=== PATIENT | male | born 1945 | race Caucasian/White ===

== ENCOUNTER 2020-10-08 13:42 | Outpatient (CLI) | payer MEDICARE, SELFPAY ==
[2020-10-08 14:00] LABS: Basophils Percent Auto 0.7 % (0.2-1.2); Eosinophils Absolute Auto 0.1 K/mm3 (0-0.3); Eosinophils Percent Auto 0.9 % (0-4.4); Hematocrit 47.5 % (42.0-52.0); Hemoglobin 16.4 g/dL (14.0-18.0); Immature Granulocyte Absolute 0.01 K/mm3 (0.00-0.031); Immature Granulocyte Percent A 0.2 % (0-0.5); Lymphocytes Absolute Auto 1.06 K/mm3 (0.9-3.2); Mean Corpuscular HGB Conc 34.5 g/dl (32-36); Mean Corpuscular Hemoglobin 33.7 pg (26-34); Mean Corpuscular Volume 97.5 fl (80-100); Monocytes Absolute Auto 0.4 K/mm3 (0.1-0.6); Monocytes Percent Auto 7.3 % (2.6-8.5); Neutrophils Percent Auto 71.9 % (45.5-73.1); Platelet Count Result 159 k/mm3 (150-375); Red Blood Count 4.87 M/mm3 (4.6-6.20); Red Cell Distribution Width 12.7 % (11.5-14.5); White Blood Count 5.6 K/mm3 (4.5-10.0)
[2020-10-08 14:05] LABS: Blood Urea Nitrogen 22 mg/dL (8-26); Carbon Dioxide 28 mmol/L (22-30); Chloride 101 mmol/L (98-109); Estimated Glomerular Filt Rate > 60; Glucose 263 mg/dL (70-105); Sodium 138 mmol/L (138-146)
[2020-10-08 16:30] LABS: Alanine Aminotransferase 36 U/L (4-50); Albumin Level 3.9 g/dL (3.5-5.1); Alkaline Phosphatase 68 U/L (38-126); Anion Gap 5 mmol/L (8-16); Aspartate Amino Transferase 26 U/L (17-59); Bilirubin,Total 1.4 mg/dL (0.2-1.3); Blood Urea Nitrogen 23 mg/dL (9-20); Calcium 10.7 mg/dL (8.4-10.2); Carbon Dioxide 31 mmol/L (22-30); Chloride 101 mmol/L (98-107); Estimated Glomerular Filt Rate > 60; Glucose 262 mg/dL (75-110); Potassium 4.1 mmol/L (3.4-5.0); Sodium 137 mmol/L (137-145)
== END 2020-10-08 13:43 | disposition home or self-care (01) ==
LOC: ANHLAB 13:44
PROVIDERS: PCP Internal Medicine; Visit Provider Internal Medicine Hematology & Oncology
DX: D69.59 Other secondary thrombocytopenia (principal)
CPT/HCPCS: 36415; 80048; 80053; 85025

== ENCOUNTER 2020-12-12 14:30 | Outpatient (RCR) | payer MEDICARE, SELFPAY | END 2021-02-01 10:39 | disposition home or self-care (01) | LOC: ANHDMC 14:30 | PROVIDERS: PCP Internal Medicine; Referring Provider Internal Medicine; Visit Provider Internal Medicine | DX: E11.9 Type 2 diabetes mellitus without complications (principal); Z71.89 Other specified counseling | CPT/HCPCS: G0108; G0109 ==

== ENCOUNTER 2021-05-29 13:54 | Outpatient (CLI) | payer MEDICARE, SELFPAY ==
--- NOTE | ~2021-05-29 | US_ITS ---
EXAMINATION: US thyroid DATE: 05/29/2021 14:50 INDICATION: Hypercalcemia TECHNIQUE: Multiple ultrasound images of the thyroid were obtained. COMPARISON: None. FINDINGS: The right thyroid lobe measures 3.9 x 1.7 x 1.6 cm. The left thyroid lobe measures 4.2 x 1.9 x 1.5 c m. Wider than tall 7 mm solid hypoechoic nodule with smooth margins in the right thyroid (TI-RADS 4, moderately suspicious , FNA if >=1.5 cm, annual followup is >=1 cm). There is normal echotexture, ec hogenicity and vascular flow throughout the thyroid gland. IMPRESSION: 1. 7 mm TI RADS 4 right thyroid nodule which remains below size criteria for either biopsy or follow- up. Reviewed, dictated and finalized at location A. IMPRESSION: 1. 7 mm TI RADS 4 right thyroid nodule which remains below size criteria for ei ther biopsy or follow-up.
== END 2021-05-29 13:55 | disposition home or self-care (01) ==
LOC: ANHIMG 13:55
PROVIDERS: PCP Internal Medicine; Visit Provider Internal Medicine Nephrology
DX: E21.0 Primary hyperparathyroidism (principal); E78.00 Pure hypercholesterolemia, unspecified; E11.22 Type 2 diabetes mellitus with diabetic chronic kidney disease; I48.21 Permanent atrial fibrillation; I25.84 Coronary atherosclerosis due to calcified coronary lesion; I10 Essential (primary) hypertension
CPT/HCPCS: 76536

== ENCOUNTER 2021-06-03 08:44 | Outpatient (CLI) | payer MEDICARE, SELFPAY ==
--- NOTE | ~2021-06-03 | NM_ITS ---
EXAMINATION: NM parathyroid w imaging DATE: 06/03/2021 12:49 INDICATION: Hypercalcemia. TECHNIQUE: 20.4 mCi Tc99m sestamibi was administered intravenously. Anterior images of the neck were obtained immediately and at 2 hours. SPECT images of the neck were obtained. COMPARISON: Thyroid ultrasound 05/29/2021 FINDINGS: There is no focus of persistent activity in the area of the thyroid or mediastinum to sugge st parathyroid adenoma. IMPRESSION: 1. No evidence of a parathyroid adenoma. Reviewed, dictated and finalized at location A.
== END 2021-06-03 08:45 | disposition home or self-care (01) ==
PROVIDERS: PCP Internal Medicine; Visit Provider Internal Medicine Nephrology
DX: I48.21 Permanent atrial fibrillation (principal); I25.84 Coronary atherosclerosis due to calcified coronary lesion; I10 Essential (primary) hypertension; E11.22 Type 2 diabetes mellitus with diabetic chronic kidney disease; E78.00 Pure hypercholesterolemia, unspecified; E21.0 Primary hyperparathyroidism
CPT/HCPCS: 78070; A9500

== ENCOUNTER 2021-11-28 12:38 | Outpatient (CLI) | payer MEDICARE, SELFPAY ==
--- NOTE | ~2021-11-28 | CT_ITS ---
EXAMINATION: CT abdomen pelvis wo con DATE: 11/28/2021 13:01 INDICATION: Hematuria TECHNIQUE: Computed tomography (CT) of the abdomen and pelvis was performed without intravenous contr ast. Automated exposure control and iterative reconstruction technique were employed. The dose-lengt h product was 307.12 mGy-cm. COMPARISON: None FINDINGS: Minimal dependent and basilar atelectasis at the bilateral lower lobes. Heart size is normal. No parth cardial effusion. Postoperative change of prior median sternotomy and coronary artery bypass grafting . Three lead pacemaker seen with lead tips at the right atrial appendage, apex of the right ventricle and in a coronary vein overlying the lateral wall of the left ventricle having traversed the coronar y sinus. Liver, gallbladder, spleen, pancreas and bilateral adrenal glands are normal. Kidneys and ur eters are normal with no urolithiasis or hydroureteronephrosis. Bladder is normal. There are few scat tered colonic diverticula without adjacent inflammatory change to suggest diverticulitis. Small bowel and appendix are normal. No free intraperitoneal gas or fluid. No pathologically enlarged abdominal or pelvic lymphadenopathy. There is calcified atherosclerosis of the aorta and many of the other rafael martin. Bilateral fat-containing inguinal hernias. Mild lumbar dextrocurvature with moderate spondylosi s. Mild to moderate bilateral hip osteoarthritis. IMPRESSION: 1. No urolithiasis or other acute intra-abdominal/pelvic process. 2. Bilateral fat-containing inguinal hernias. Reviewed, dictated and finalized at location A.
== END 2021-11-28 12:39 | disposition home or self-care (01) ==
LOC: ANHIMG 12:39
PROVIDERS: PCP Internal Medicine
DX: R31.9 Hematuria, unspecified (principal); K40.20 Bilateral inguinal hernia, without obstruction or gangrene, not specified as recurrent
CPT/HCPCS: 74176

== ENCOUNTER → 2023-06-16 12:54 | Outpatient (CLI) | payer MEDICARE, SELFPAY ==
--- NOTE | ~2023-06-16 | CT_ITS ---
EXAMINATION: CT lumbar spine wo con DATE: 06/16/2023 13:16 INDICATION: Lumbar radiculopathy. Bilateral leg weakness. TECHNIQUE: Computed tomography (CT) of the lumbar spine was performed without intravenous contrast. A utomated exposure control and iterative reconstruction technique were employed. The dose-length produ ct was 894.76 mGy-cm. COMPARISON: Lumbar spine CT 06/24/2013 FINDINGS: There is 9 degrees dextrocurvature of lumbar spine. There is 5 mm anterolisthesis of L4 on L5. There is mild chronic anterior wedging of T12 vertebral body. There is mildly decreased disc heig ht at L2-L3, severely decreased disc height at L3-L4, and moderately decreased disc height at L4-L5 a nd L5-S1. The following disc levels are specifically discussed: L1-L2: The disc is bulging. There is moderate right and severe left facet joint osteoarthritis. There is mild bilateral neural foraminal stenosis. There is no central canal stenosis. L2-L3: The disc is bulging. There is moderate right and severe left facet joint osteoarthritis. There is moderate bilateral neural foraminal stenosis. There is mild central canal stenosis. L3-L4: The disc is bulging. There is severe bilateral facet joint osteoarthritis. There is moderate b ilateral neural foraminal stenosis. There is mild central canal stenosis. L4-L5: The disc is bulging. There is severe bilateral facet joint osteoarthritis. There is moderate b ilateral neural foraminal stenosis. There is mild central canal stenosis with posterior decompression . L5-S1: The disc is bulging. There is moderate right and mild left facet joint osteoarthritis. There i s moderate right and mild left neural foraminal stenosis. There is mild central canal stenosis. IMPRESSION: 1. Severe lumbar spondylosis, worsened from 06/24/2013. Reviewed, dictated and finalized at location E. CULTURAL SALES REPRESENTATIVE
== END ==
PROVIDERS: PCP Nurse Practitioner Family; Visit Provider Nurse Practitioner Family
DX: M54.16 Radiculopathy, lumbar region (principal); M43.06 Spondylolysis, lumbar region
CPT/HCPCS: 72131

== ENCOUNTER 2024-08-05 12:14 | Outpatient (CLI) | payer MEDICARE, SELFPAY ==
[2024-08-05 12:39] LABS: Basophils Percent Auto 0.6 % (0.2-1.2); Eosinophils Percent Auto 0.8 % (0-4.4); Hematocrit 31.5 % (42.0-52.0); Hemoglobin 9.4 g/dL (14.0-18.0); Immature Granulocyte Absolute 0.02 K/mm3 (0.00-0.031); Immature Granulocyte Percent A 0.4 % (0-0.5); Immature Reticulocyte Fraction 21.3 % (3.0-15.9); Lymphocytes Absolute Auto 0.85 K/mm3 (0.9-3.2); Lymphocytes Percent Auto 17.3 % (18.3-44.2); Mean Corpuscular HGB Conc 29.8 g/dl (32-36); Mean Platelet Volume 10.1 fl (7.4-10.4); Monocytes Absolute Auto 0.4 K/mm3 (0.1-0.6); Monocytes Percent Auto 8.4 % (2.6-8.5); Neutrophils Absolute Auto 3.6 K/mm3 (1.3-6.7); Neutrophils Percent Auto 72.5 % (45.5-73.1); Platelet Count Result 178 k/mm3 (150-375); Red Blood Count 3.62 M/mm3 (4.6-6.20); Red Cell Distribution Width 16.5 % (11.5-14.5); Reticulocyte Hemoglobin Conten 25.4 pg (28.2-36.6); Reticulocyte Percent 1.63 % (0.7-4.3); Reticulocytes Absolute 0.06 10^6/uL (0.02-0.10); White Blood Count 4.9 K/mm3 (4.5-10.0)
[2024-08-05 12:50] LABS: Hypochromasia 1+; Ovalocytes 1+; Platelet Estimate Adequate (Adequate); Poikilocytosis 1+; Schistocytes None Seen
[2024-08-05 13:11] LABS: Iron 18 ug/dL (49-181)
[2024-08-05 13:14] LABS: Alanine Aminotransferase 13 U/L (6-50); Albumin Level 2.8 g/dL (3.5-5.1); Alkaline Phosphatase 82 U/L (38-126); Anion Gap 0 mmol/L (4-12); Aspartate Amino Transferase 20 U/L (17-59); Bilirubin,Total 0.6 mg/dL (0.2-1.3); Blood Urea Nitrogen 22 mg/dL (9-20); Calcium 8.4 mg/dL (8.4-10.2); Carbon Dioxide 28 mmol/L (22-30); Chloride 112 mmol/L (98-107); Estimated Glomerular Filt Rate > 60; Glucose 178 mg/dL (65-110); Potassium 3.7 mmol/L (3.4-5.0); Sodium 140 mmol/L (137-145)
[2024-08-05 13:22] LABS: Percent Iron Saturation 6 % (20-50)
[2024-08-05 13:43] LABS: Prostate Specific Antigen < 0.1 ng/mL (< OR = 4.0)
[2024-08-05 14:20] LABS: Folic Acid 7.4 ng/mL (2.76->20); Vitamin B12 > 1000.0 pg/mL (239-931)
[2024-08-09 15:48] LABS: Methylmalonic Acid 109 nmol/L (85-423)
[2024-08-11 08:17] LABS: Soluble Transferrin Receptor 1.47 mg/L (0.76-1.76)
== END 2024-08-05 12:15 | disposition home or self-care (01) ==
LOC: ANHLAB 12:21
PROVIDERS: PCP Nurse Practitioner Family; Visit Provider Internal Medicine Hematology & Oncology
DX: D64.9 Anemia, unspecified (principal); Z85.46 Personal history of malignant neoplasm of prostate
CPT/HCPCS: 36415; 80053; 82607; 82728; 82746; 83540; 83550; 83921; 84153; 84238; 85025; 85046

== ENCOUNTER 2024-08-25 19:35 | Emergency (ER) | payer MEDICARE, SELFPAY ==
--- NOTE | ~2024-08-25 | CT_ITS ---
EXAMINATION: CT abdomen pelvis w con DATE: 08/25/2024 20:54 INDICATION: Left flank ecchymosis TECHNIQUE: Computed tomography (CT) of the abdomen and pelvis was performed with 100 cc Omnipaque 350 intravenous contrast. The dose-length product was 972.14 mGy-cm. COMPARISON: CT dated 11/28/2021. FINDINGS: There are acute fractures of the left 11th, 10th, ninth, eighth ribs. There is displacement of the 10th, ninth and eighth ribs. There is osteoarthritis of the hips. Mild diffuse subcutaneous e estelita. There is soft tissue swelling adjacent to the left rib fractures posteriorly. Bilateral pleural effusions/hemothorax. There is compressive atelectasis of the left lower lobe. Heart size upper norm al. There is atherosclerosis of the aorta without aneurysm. Fat-containing bilateral inguinal hernias . There are bilateral hydroceles. The liver, spleen, pancreas, adrenal glands and kidneys are unremarkable. Gallbladder is present. Non obstructive bowel gas pattern. There is mild thickening of the gastric antrum, suspicious for gastrit is. IMPRESSION: 1. Multiple acute left rib fractures with adjacent soft tissue swelling. Bilateral pleural effusion/h emothorax. 2: Compressive atelectasis of the left lower lobe. 3: Thickening of the gastric antrum, suspicious for gastritis. 4: Bilateral hydroceles. Reviewed, dictated and finalized at location A. ET DEVELOPMENT ANALYST IMPRESSION: 1. Multiple acute left rib fractures with adjacent soft tissue swelling. Bilate ral pleural effusion/hemothorax. 2: Compressive atelectasis of the left lower lobe. 3: Thickening of the gastric antrum, suspicious for gastritis. 4: Bilateral hydroceles.
--- NOTE | ~2024-08-25 | CT_ITS ---
EXAMINATION: CT cervical spine wo con DATE: 08/25/2024 20:54 INDICATION: Frequent falls. Neck pain. TECHNIQUE: Computed tomography (CT) of the cervical spine was performed without intravenous contrast. The dose-length product was 416 mGy-cm. Automated exposure control and iterative reconstruction technique were employed. COMPARISON: None FINDINGS: Mild levocurvature of the cervical spine. Odontoid process is normal. Craniovertebral junct ion within normal limits. No evidence for perched facet. Vertebral body heights are maintained. There is mild multilevel uncinate degenerative change. No acute fracture or traumatic malalignment. There is a left pleural effusion. No paraspinal soft tissue abnormalities. IMPRESSION: 1. No acute abnormality of the cervical spine. 2: Left pleural effusion with near complete opacification of the left apex. Reviewed, dictated and finalized at location A. DING OFFICIAL
--- NOTE | ~2024-08-25 | XR_ITS ---
XR chest 1V portable 08/25/2024 20:21 Indication: Weakness Procedure: AP portable chest Comparison: 11/02/2012 Findings: Status post median sternotomy for CABG. Cardiomegaly. Pacemaker leads are in expected posit ion. Retrocardiac opacification may represent atelectasis or pneumonia. No pleural effusion or pneumo thorax. Impression: 1: Retrocardiac opacification, atelectasis versus pneumonia. Reviewed, dictated and finalized at location A. EGE ADMISSIONS COUNSELOR Impression: 1: Retrocardiac opacification, atelectasis versus pneumonia.
--- NOTE | ~2024-08-25 | XR_ITS ---
XR pelvis 1-2V 08/25/2024 20:36 Indication: Pelvic pain after fall Procedure: AP pelvis Comparison: No prior studies for comparison. Findings: Moderate osteoarthritis of the hips. Pelvic rings are intact. Moderate colonic fecal loadin g. Surgical changes are present in the pelvis and left inguinal locations. Sacral foramen are symmetr ic. No acute fracture. There is moderate lumbar spondylosis with dextroscoliosis. Impression: 1: No acute fracture. Reviewed, dictated and finalized at location A. L INSPECTION SUPERVISOR Impression: 1: No acute fracture.
--- NOTE | ~2024-08-25 | CT_ITS ---
EXAMINATION: CT brain wo con DATE: 08/25/2024 20:54 INDICATION: Frequent falls. TECHNIQUE: Computed tomography (CT) of the head was performed without intravenous contrast. The dose- length product was 681.00 mGy-cm. Automated exposure control and iterative reconstruction technique w ere employed. COMPARISON: None FINDINGS: There are scattered moderate periventricular and subcortical white matter changes, most lik leila related to small vessel ischemic disease (microangiopathy). No ventriculomegaly or midline shift. There is intracranial atherosclerosis. Mild mucosal thickening of the ethmoid sinuses. Mastoids are pneumatized. No depressed skull fractures. No acute infarction, hemorrhage, mass or mass effect. IMPRESSION: 1. No acute intracranial abnormality. Reviewed, dictated and finalized at location A. ETIC SALES ASSISTANT
[2024-08-25 19:37] VITALS: BP 134/62; PULSE 83; RESP 15; TEMP 37; O2SAT 95
--- NOTE | 2024-08-25 19:45 | ECG_ITS ---
Test Date: 2024-08-25 19:51:54 Measurements Intervals [place] Rate: 87 P: 0 NC: 0 QRS: 195 QRSD: 168 T: 22 QT: 434 QTc: 524 Interpretive Statements ELECTRONIC VENTRICULAR PACEMAKER No previous ECG available for comparison Electronically Signed On 08-26-2024 14:34:29 STORY WRITER by Viral Hernandez M.D.
[2024-08-25 19:53] LABS: Basophils Percent Auto 0.7 % (0.2-1.2); Eosinophils Percent Auto 0.2 % (0-4.4); Hematocrit 34.5 % (42.0-52.0); Hemoglobin 10.4 g/dL (14.0-18.0); Immature Granulocyte Absolute 0.01 K/mm3 (0.00-0.031); Immature Granulocyte Percent A 0.2 % (0-0.5); Lymphocytes Absolute Auto 0.39 K/mm3 (0.9-3.2); Lymphocytes Percent Auto 9.6 % (18.3-44.2); Mean Corpuscular HGB Conc 30.1 g/dl (32-36); Mean Corpuscular Hemoglobin 25.6 pg (26-34); Mean Platelet Volume 9.4 fl (7.4-10.4); Monocytes Absolute Auto 0.2 K/mm3 (0.1-0.6); Monocytes Percent Auto 5.4 % (2.6-8.5); Neutrophils Absolute Auto 3.4 K/mm3 (1.3-6.7); Neutrophils Percent Auto 83.9 % (45.5-73.1); Platelet Count Result 257 k/mm3 (150-375); Red Blood Count 4.06 M/mm3 (4.6-6.20); Red Cell Distribution Width 15.8 % (11.5-14.5); White Blood Count 4.1 K/mm3 (4.5-10.0)
[2024-08-25 19:59] VITALS: PULSE 86
[2024-08-25 20:04] VITALS: BP 145/72; PULSE 86; RESP 15; O2SAT 95
[2024-08-25 20:04] LABS: Alanine Aminotransferase 17 U/L (6-50); Albumin Level 2.9 g/dL (3.5-5.1); Alkaline Phosphatase 92 U/L (38-126); Anion Gap 4 mmol/L (4-12); Aspartate Amino Transferase 23 U/L (17-59); Bilirubin,Total 1.3 mg/dL (0.2-1.3); Blood Urea Nitrogen 18 mg/dL (9-20); Calcium 8.2 mg/dL (8.4-10.2); Carbon Dioxide 27 mmol/L (22-30); Chloride 106 mmol/L (98-107); Estimated CRCL calculation 73 ml/min; Estimated Glomerular Filt Rate > 60; Glucose 100 mg/dL (65-110); Sodium 137 mmol/L (137-145)
--- NOTE | 2024-08-25 20:50 | ED.GENADULT ---
HPI - General Adult General Chief complaint: Weakness Stated complaint: fell/back pain Time Seen by Provider: 08/25/24 19:58 History of Present Illness HPI narrative: This is an 79-year-old male presenting ED for chief complaint generalized weakness. Patient says he has been getting progressively more weak over last month. He has had frequent falls over the last week. He denies any head trauma or loss of consciousness. He did fall and land on his left hip and sustained a large bruise to his left flank. He denies fevers chills chest pain difficulty breathing abdominal pain nausea vomiting diarrhea or urinary symptoms. Patient lives alone. Family members frequently check on and today they found him laying on the ground too weak to get up. Related Data Allergies Allergy/AdvReac Type Severity Reaction Status Date / Time No Known Allergies Allergy Verified 08/25/24 19:45 Exam Narrative: APPEARANCE: No apparent distress. Head: atraumatic. EYES: EOMI, NOSE: Atraumatic NECK: Trachea midline RESPIRATORY: No increased rate of breathing, CTAB CARDIOVASCULAR: RRR, no peripheral edema ABDOMINAL: Non-distended soft nontender MUSCULOSKELETAl: No obvious deformities NEURO: Alert. Moving 4/4 extremities SKIN:: Ecchymosis over the left flank with no tenderness/crepitus PSYCHIATRIC: Normal affect Course Vital Signs Vital signs: Vital Signs Temperature 98.6 F 08/25/24 19:37 Pulse Rate 83 08/25/24 19:37 Respiratory Rate 15 08/25/24 19:37 Blood Pressure 134/62 08/25/24 19:37 Pulse Oximetry 95 08/25/24 19:37 Oxygen Delivery Room Air 08/25/24 19:37 Temperature 98.6 F 08/25/24 19:37 Pulse Rate 86 08/25/24 20:04 Respiratory Rate 15 08/25/24 20:04 Blood Pressure 145/72 H 08/25/24 20:04 Pulse Oximetry 95 08/25/24 20:04 Oxygen Delivery Room Air 08/25/24 19:37 Medical Decision Making [facility] Narrative Medical decision making narrative: -Course: 79-year-old male presenting generalized weakness and frequent falls over the last month. Trauma and metabolic workup obtained. Trauma workup significant for 4 consecutive rib fractures on the left side with a small hemothorax. Patient has no respiratory complaints this time. He has also found have a urinary tract infection which we will treat with ceftriaxone. Patient be transferred to [facility] ED to ED for trauma evaluation. Accepted by Dr. Brothers. Vital Signs Vital Signs: Vital Signs Temperature 98.6 F 08/25/24 19:37 Pulse Rate 83 08/25/24 19:37 Respiratory Rate 15 08/25/24 19:37 Blood Pressure 134/62 08/25/24 19:37 Pulse Oximetry 95 08/25/24 19:37 Oxygen Delivery Room Air 08/25/24 19:37 Temperature 98.6 F 08/25/24 19:37 Pulse Rate 86 08/25/24 20:04 Respiratory Rate 15 08/25/24 20:04 Blood Pressure 145/72 H 08/25/24 20:04 Pulse Oximetry 95 08/25/24 20:04 Oxygen Delivery Room Air 08/25/24 19:37 Lab Data 08/25/24 19:47 08/25/24 19:47 Labs: Lab Results 08/25/24 08/25/24 08/25/24 Range/Units 19:47 21:33 22:02 WBC 4.1 L (4.5-10.0) K/mm3 RBC 4.06 L (4.6-6.20) M/mm3 Hgb 10.4 L (14.0-18.0) g/dL Hct 34.5 L (42.0-52.0) % MCV 85.0 (80-100) fl MCH 25.6 L (26-34) pg MCHC 30.1 L (32-36) g/dl RDW 15.8 H (11.5-14.5) % Plt Count 257 (150-375) k/mm3 MPV 9.4 (7.4-10.4) fl Immature Gran % (Auto) 0.2 (0-0.5) % Neut % (Auto) 83.9 H (45.5-73.1) % Lymph % (Auto) 9.6 L (18.3-44.2) % [place] % (Auto) 5.4 (2.6-8.5) % Eos % (Auto) 0.2 (0-4.4) % Baso % (Auto) 0.7 (0.2-1.2) % Lymph # (Auto) 0.39 L (0.9-3.2) K/mm3 [place] # (Auto) 0.2 (0.1-0.6) K/mm3 Eos # (Auto) 0.0 (0-0.3) K/mm3 Baso # (Auto) 0.0 (0.0-0.1) K/mm3 Abs Immat Gran (auto) 0.01 (0.00-0.031) K/mm3 Absolute Neuts (auto) 3.4 (1.3-6.7) K/mm3 Absolute Nucleated RBC 0.000 (0.0-0.012) K/mm3 Nucleated RBC % 0.0 (0.0-0.2) % Sodium 137 (137-145) mmol/L Potassium 4.0 (3.4-5.0) mmol/L Chloride 106 (98-107) mmol/L Carbon Dioxide 27 (22-30) mmol/L Anion Gap 4 (4-12) mmol/L BUN 18 (9-20) mg/dL Creatinine 0.77 (0.7-1.3) mg/dL Estim Creat Clear Calc 73 ml/min Estimated GFR > 60 (59 - ) Glucose 100 (65-110) mg/dL Calcium 8.2 L (8.4-10.2) mg/dL Total Bilirubin 1.3 (0.2-1.3) mg/dL AST 23 (17-59) U/L ALT 17 (6-50) U/L Alkaline Phosphatase 92 (38-126) U/L Total Protein 6.0 L (6.3-8.2) g/dL Albumin 2.9 L (3.5-5.1) g/dL Urine Color Yellow (Yellow) Urine Appearance Clear (Clear) Urine pH 5.0 (5.0-9.0) Ur Specific [place] > 1.045 H (1.001-1.035) Urine Protein Negative (Negative) mg/dL Urine Glucose (UA) 3+ H (Negative) mg/dL Urine Ketones 1+ H (Negative) mg/dL Ur Blood (Man) Negative (Negative) Urine Nitrate Positive H (Negative) Urine Bilirubin Negative (Negative) Urine Urobilinogen 1.0 (<2.0) mg/dL Leukocyte Esterase Rfl Trace H (Negative) MYKE/UL Urine RBC 0-2 (0-2) /hpf Urine WBC 21-50 H (0-3) /hpf Ur Squamous Epith Cells None seen (Few) /hpf Urine Bacteria 4+ H /hpf Urine Casts 0-2 Influenza A (RT-PCR) Negative (Negative) Influenza B (RT-PCR) Negative (Negative) RSV (RT-PCR) Negative (Negative) SARS-CoV-2 RNA (RT-PCR) Negative (Negative) Critical Care Time Critical Care Time Critical Care Time: Yes Total Critical Care Time: 35 Discharge Plan Discharge Clinical Impression: Generalized weakness, Multiple fractures of ribs, Hemothorax, Acute UTI Patient Disposition: Acute Care Hospital Condition: Stable Patient Language: Fijian Follow-up/Referrals: Chiki,RUBIO Alvarez-C [Primary Care Provider] -
[2024-08-25] MEDS: SODIUM CHLORIDE 0.9% IV 1,000 ML 999 ML IV CONT (21:02)
[2024-08-25 22:00] VITALS: BP 136/80; PULSE 84; RESP 20; O2SAT 95
[2024-08-25 22:12] LABS: Add Urine Microscopic? YES; Appearance Urine Clear (Clear); Bacteria Urine 4+ /hpf; Bilirubin Urine Negative (Negative); Blood Urine Negative (Negative); Color Urine Yellow (Yellow); Glucose Urine UA 3+ mg/dL (Negative); Ketones Urine 1+ mg/dL (Negative); Leukocyte Esterase Ur Trace LEU/UL (Negative); Nitrate Urine Positive (Negative); Non Pathogenic Casts 0-2; Protein Urine Negative (Negative); RBC Urine 0-2 /hpf (0-2); Specific Grav Ur > 1.045 (1.001-1.035); Squamous Epithelial Cell Urine None Seen /hpf (Few); WBC Urine 21-50 /hpf (0-3)
[2024-08-25 22:18] LABS: Influenza A QL RT-PCR Negative (Negative); Influenza B QL RT-PCR Negative (Negative); RSV RNA, RT-PCR Negative (Negative); SARS-CoV-2 RNA PCR Negative (Negative)
[2024-08-25 23:41] VITALS: BP 121/90; PULSE 88; RESP 17; O2SAT 95
--- NOTE | 2024-08-26 00:25 | PC.NURSE ---
Per EDP VORB, pt to receive 0.5mg dilaudid prior to leaving with EMS.
[2024-08-26] MEDS: HYDROmorphone HCL INJ (*CRX) 1 MG/ML SYR 0.5 MG IV PUSH (00:35)
== END 2024-08-26 00:36 | disposition short-term general hospital (02) ==
PROVIDERS: Emergency Provider Emergency Medicine; PCP Nurse Practitioner Family
DX: S22.42XA Multiple fractures of ribs, left side, initial encounter for closed fracture (principal); S27.1XXA Traumatic hemothorax, initial encounter; R53.1 Weakness; N39.0 Urinary tract infection, site not specified; Z20.822 Contact with and (suspected) exposure to COVID-19; R29.6 Repeated falls; N43.3 Hydrocele, unspecified; R91.8 Other nonspecific abnormal finding of lung field; R93.5 Abnormal findings on diagnostic imaging of other abdominal regions, including retroperitoneum; W19.XXXA Unspecified fall, initial encounter
CPT/HCPCS: 36415; 70450; 71045; 72125; 72170; 74177; 80053; 81001; 85025; 87040; 87086; 87186; 87637; 93005; 96361; 96365; 96375; 99285; J0696; J1171; J7030; Q9967

== ENCOUNTER 2024-10-31 16:08 | Emergency (ER) | payer MEDICARE, SELFPAY ==
--- NOTE | ~2024-10-31 | XR_ITS ---
XR chest 2V Ordering provider: Mandie Frederick APRN History: 79 years Male with . concern for fluid retention . Comparison: August 25, 2024 FINDINGS: MEDIASTINUM: The cardiac silhouette is not enlarged. Left bipolar pacemaker. Postoperative changes in the mediastinum. Congestive hossein. LUNGS: No pneumothorax. Opacification the lung bases suggestive of atelectasis versus pneumonia with left pleural effusion. OTHER: No free air under the diaphragm. Healing fractures in the right fifth and sixth rib. IMPRESSION: Bibasilar atelectasis versus pneumonia. Left pleural effusion. Reviewed, dictated and finalized at location A.
--- NOTE | ~2024-10-31 | US_ITS ---
EXAMINATION: US venous doppler [facility] DATE: 10/31/2024 20:41 INDICATION: edema . TECHNIQUE: Grayscale ultrasound images without and with compression and Doppler ultrasound images of the bilateral upper extremity veins were obtained. COMPARISON: None. FINDINGS: The visualized portions of the bilateral internal jugular vein, subclavian vein, axillary vein, brach ial veins, basilic vein, cephalic vein, radial vein, and ulnar vein are patent. IMPRESSION: No upper extremity deep venous thrombosis. Reviewed, dictated and finalized at location K.
--- NOTE | ~2024-10-31 | US_ITS ---
EXAMINATION: US venous doppler [facility] DATE: 10/31/2024 20:41 INDICATION: edema . TECHNIQUE: Grayscale images without and with compression and Doppler images of the bilateral lower ex tremity veins were obtained. COMPARISON: None FINDINGS: The right common femoral vein, profunda (deep) femoral vein, femoral vein, popliteal vein, peroneal v ein, posterior tibial veins, gastrocnemius vein, and greater saphenous vein are patent. The left posterior tibial and peroneal veins were not visualized. The left common femoral vein, profu nda (deep) femoral vein, femoral vein, popliteal vein, gastrocnemius vein, and greater saphenous vei n are patent. IMPRESSION: The left peroneal and posterior tibial veins were not visualized. Otherwise patent bilateral lower ex tremity veins. Reviewed, dictated and finalized at location K. IMPRESSION: The left peroneal and posterior tibial veins were not visualized. Otherwise pat ent bilateral lower extremity veins.
[2024-10-31 16:14] VITALS: BP 146/80; PULSE 96; RESP 15; TEMP 36.4; O2SAT 97
--- NOTE | 2024-10-31 16:25 | ECG_ITS ---
Test Date: 2024-10-31 17:10:04 Measurements Intervals [place] Rate: 67 P: 80 [place]: 195 QRS: 185 QRSD: 162 T: 3 QT: 421 QTc: 445 Interpretive Statements ELECTRONIC VENTRICULAR PACEMAKER ABNORMAL RHYTHM ECG Compared to ECG 08/25/2024 19:51:54 No significant changes Electronically Signed On 11-01-2024 15:57:20 CDT by Viral Hernandez M.D.
--- NOTE | 2024-10-31 16:26 | ED.LOWEXIN ---
HPI - Extremity Injury (Lower) General Chief Complaint: Extremity Injury, Lower <Mandie Frederick APRN - Last Filed: 10/31/24 16:27> Stated Complaint: lower extremity swelling <Mandie Frederick APRN - Last Filed: 10/31/24 16:27> Time Seen by Provider: 10/31/24 16:20 <Mandie Frederick APRN - Last Filed: 10/31/24 16:27> Focused HPI: Patient is an 79-year-old male who presents to the ER with generalized fluid retention. He was seen by his primary care provider earlier today who had concerns about, not only his lower extremity swelling, but his swollen hand and abdomen. Patient denies shortness of the breath or chest pain, but endorses dyspnea with exertion. He has a history of a pacemaker and high blood pressure. Patient denies any recent fevers, significant pain, urinary symptoms. GENERAL: Well-appearing, well-nourished, and in no acute distress. HEAD: Normocephalic, atraumatic. CHEST: Clear to auscultation. ?No respiratory distress. HEART: Regular rate and rhythm.? NEURO: ?Alert and oriented x3. Patient screened in triage and initial orders placed.? ?Additional care and disposition to be based upon?diagnostic testing and treatment. <Mandie Frederick APRN - Last Filed: 10/31/24 16:27> History of Present Illness HPI Narrative: Breathe HPI. Patient poor historian. Has been at [facility] and then transferred to a different facility. Seems have chronic deconditioning. Review shows history of edema to the upper extremities. Patient now presents with lower extremity edema. Reports he is nonambulatory as he is too weak. Denies history DVT or PE. He is on apixaban. <Darwin Workman MD - Last Filed: 10/31/24 22:01> Related Data Home Medications: Home Medications ?Medication ?Instructions ?Recorded ?Confirmed ?Last Taken ?Type acetaminophen 500 mg tablet 1,000 mg PO Q8H 09/05/24 09/05/24 Unknown History apixaban 5 mg tablet 5 mg PO BID 09/05/24 09/05/24 Unknown History aspirin 81 mg chewable tablet 81 mg PO DAILY 09/05/24 09/05/24 Unknown History atorvastatin 40 mg tablet (Lipitor) 40 mg PO HS 09/05/24 09/05/24 Unknown History cholecalciferol (vitamin D3) 25 2,000 unit PO DAILY 09/05/24 09/05/24 Unknown History mcg (1,000 unit) tablet cyanocobalamin (vitamin B-12) 1,000 mcg PO DAILY 09/05/24 09/05/24 Unknown History 1,000 mcg tablet ferrous sulfate 325 mg (65 mg 325 mg PO DAILY 09/05/24 09/05/24 Unknown History iron) tablet gabapentin 300 mg capsule 300 mg PO TID 09/05/24 09/05/24 Unknown History lidocaine 5 % topical patch 2 patch topical Q24H 09/05/24 09/05/24 Unknown History oxycodone 5 mg tablet 5 mg PO Q4H PRN pain 09/05/24 09/05/24 Unknown History pantoprazole 40 mg tablet,delayed 40 mg PO QAM 09/05/24 09/05/24 Unknown History release polyethylene glycol 3350 17 gram 17 g PO DAILY 09/05/24 09/05/24 Unknown History oral powder packet sennosides 8.6 mg tablet 17.2 mg PO DAILY 09/05/24 09/05/24 Unknown History <Mandie Frederick APRN - Last Filed: 10/31/24 16:27> Allergies/Adverse Reactions: Allergies Allergy/AdvReac Type Severity Reaction Status Date / Time No Known Allergies Allergy Verified 10/31/24 16:15 <Mandie Frederick APRN - Last Filed: 10/31/24 16:27> Review of Systems Review of Systems: All systems reviewed & are unremarkable except as noted in HPI and below <Darwin Workman MD - Last Filed: 10/31/24 22:01> Constitutional: Constitutional: Reports no additional constitutional complaints <Darwin Workman MD - Last Filed: 10/31/24 22:01> Cardiovascular: Cardiovascular: Reports no additional cardiovascular complaints <Darwin Workman MD - Last Filed: 10/31/24 22:01> Respiratory: Respiratory: Reports no additional respiratory complaints <Darwin Workman MD - Last Filed: 10/31/24 22:01> Gastrointestinal: Gastrointestinal: Reports no additional gastrointestinal complaints <Darwin Workman MD - Last Filed: 10/31/24 22:01> [facility] Past Medical History Medical History: Medical History (Updated 10/31/24 @ 22:00 by Darwin Workman MD) CAD (coronary artery disease) Prostate cancer sp prostatectomy Pacemaker Hypocalcemia HTN (hypertension) Afib Age related osteoporosis Hemothorax with pneumothorax, traumatic Urinary retention Recurrent falls Cachexia Protein calorie malnutrition Malaise and fatigue <Mandie Frederick APRN - Last Filed: 10/31/24 16:27> Surgical History Surgical History: Surgical History (Updated 09/06/24 @ 14:30 by Elena Orellana MD) Hx of CABG Previous back surgery H/O prostatectomy <Mandie Frederick APRN - Last Filed: 10/31/24 16:27> Social History Social History: Social History Smoking packs per day: 1 Smoking cigarettes per day: 20.0 Years smoked: 30 Smoking pack-years: 30.00 Smoking status: Former smoker Tobacco type: cigarettes Alcohol intake: former Substance use: never Do You Feel Safe in your Home?: Yes Lack of Transportation: No Lack of Food: Never True Current Housing: I Have Housing Concerned About Future Housing: No Difficulty Paying Gas/Electric Bills: No Difficulty Paying for Meds: No Currently Unemployed: No Education: High School Diploma/GED Difficulty w/ Childcare or Family Care: No Spiritual care concerns: No <Mandie Frederick APRN - Last Filed: 10/31/24 16:27> Exam Narrative: GENERAL: Chronically ill-appearing, well-nourished, and in no acute distress. HEAD: Normocephalic, atraumatic. ENT: Mucous membranes moist. NECK: Supple. CHEST: Clear to auscultation. No respiratory distress. HEART: Regular rate and rhythm. Normal peripheral pulses. ABDOMEN: Soft, nontender, nondistended. EXTREMITIES: Normal range of motion. 2+ edema in all extremities. SKIN: Warm, dry, no rash. NEURO: Alert and oriented x3. PSYCH: Normal mood and affect. <Darwin Workman MD - Last Filed: 10/31/24 22:01> Course Course Emergency Course: Patient given 20 of Lasix. Hemoglobin chronically low. Labs otherwise unremarkable with slight elevation in BNP. No DVT in the arms or legs. Recommend leg wraps and Lasix and follow-up with PCP. Edema likely related to his immobility and is chronic in nature. <Darwin Workman MD - Last Filed: 10/31/24 22:01> Vital Signs Vital signs: Vital Signs Temperature 97.6 F 10/31/24 16:14 Pulse Rate 96 10/31/24 16:14 Respiratory Rate 15 10/31/24 16:14 Blood Pressure 146/80 H 10/31/24 16:14 Pulse Oximetry 97 10/31/24 16:14 Temperature 97.6 F 10/31/24 16:14 Pulse Rate 88 10/31/24 20:01 Respiratory Rate 17 10/31/24 20:01 Blood Pressure 141/79 H 10/31/24 20:01 Pulse Oximetry 96 10/31/24 20:01 <Mandie Frederick, PHOTOENGRA[employer]ING [employer]CHER - Last Filed: 10/31/24 16:27> Vital Signs Temperature 97.6 F 10/31/24 16:14 Pulse Rate 96 10/31/24 16:14 Respiratory Rate 15 10/31/24 16:14 Blood Pressure 146/80 H 10/31/24 16:14 Pulse Oximetry 97 10/31/24 16:14 Temperature 97.6 F 10/31/24 16:14 Pulse Rate 88 10/31/24 20:01 Respiratory Rate 17 10/31/24 20:01 Blood Pressure 141/79 H 10/31/24 20:01 Pulse Oximetry 96 10/31/24 20:01 <Darwin Workman MD - Last Filed: 10/31/24 22:01> MDM - Extremity Injury (Lower) Lab Data Result diagrams: 10/31/24 17:28 10/31/24 17:28 <Mandie Frederick, PHOTOENGRAVING ETCHER - Last Filed: 10/31/24 16:27> Labs: Lab Results 10/31/24 10/31/24 Range/Units 17:28 19:39 WBC 4.4 L (4.5-10.0) K/mm3 RBC 3.38 L (4.6-6.20) M/mm3 Hgb 8.8 L (14.0-18.0) g/dL Hct 29.9 L (42.0-52.0) % MCV 88.5 (80-100) fl MCH 26.0 (26-34) pg MCHC 29.4 L (32-36) g/dl RDW 19.7 H (11.5-14.5) % Plt Count 232 (150-375) k/mm3 MPV 10.0 (7.4-10.4) fl Immature Gran % (Auto) 0.7 H (0-0.5) % Neut % (Auto) 69.1 (45.5-73.1) % Lymph % (Auto) 20.7 (18.3-44.2) % [place] % (Auto) 7.4 (2.6-8.5) % Eos % (Auto) 1.4 (0-4.4) % Baso % (Auto) 0.7 (0.2-1.2) % Lymph # (Auto) 0.90 (0.9-3.2) K/mm3 [place] # (Auto) 0.3 (0.1-0.6) K/mm3 Eos # (Auto) 0.1 (0-0.3) K/mm3 Baso # (Auto) 0.0 (0.0-0.1) K/mm3 Abs Immat Gran (auto) 0.03 (0.00-0.031) K/mm3 Absolute Neuts (auto) 3.0 (1.3-6.7) K/mm3 Absolute Nucleated RBC 0.000 (0.0-0.012) K/mm3 Band Neutrophils % 0 (0-6) % Nucleated RBC % 0.0 (0.0-0.2) % Platelet Estimate Adequate (Adequate) % Immature Plt Fraction 2.4 (0.9-11.2) % Hypochromasia 1+ Anisocytosis 2+ Schistocytes Rare PT 16.6 H (11.1-14.7) Seconds INR 1.3 APTT 36.6 (22.3-36.8) Seconds Sodium 135 L (137-145) mmol/L Potassium 4.4 (3.4-5.0) mmol/L Chloride 106 (98-107) mmol/L Carbon Dioxide 28 (22-30) mmol/L Anion Gap 1 L (4-12) mmol/L BUN 18 D (9-20) mg/dL Creatinine 0.67 L (0.7-1.3) mg/dL Estim Creat Clear Calc 83 ml/min Estimated GFR > 60 (59 - ) Glucose 99 (65-110) mg/dL Calcium 7.7 L (8.4-10.2) mg/dL Total Bilirubin 0.5 (0.2-1.3) mg/dL AST 29 (17-59) U/L ALT 14 (6-50) U/L Alkaline Phosphatase 91 (38-126) U/L Troponin I < 0.012 (0.000-0.034) ng/mL NT-Pro-B Natriuret Pep 2190 H (19.9-100) pg/mL Total Protein 5.0 L (6.3-8.2) g/dL Albumin 2.2 L (3.5-5.1) g/dL <Mandie Frederick, PHOTOENGRAVING ETCHER - Last Filed: 10/31/24 16:27> Lab Results 10/31/24 10/31/24 Range/Units 17:28 19:39 WBC 4.4 L (4.5-10.0) K/mm3 RBC 3.38 L (4.6-6.20) M/mm3 Hgb 8.8 L (14.0-18.0) g/dL Hct 29.9 L (42.0-52.0) % MCV 88.5 (80-100) fl MCH 26.0 (26-34) pg MCHC 29.4 L (32-36) g/dl RDW 19.7 H (11.5-14.5) % Plt Count 232 (150-375) k/mm3 MPV 10.0 (7.4-10.4) fl Immature Gran % (Auto) 0.7 H (0-0.5) % Neut % (Auto) 69.1 (45.5-73.1) % Lymph % (Auto) 20.7 (18.3-44.2) % [place] % (Auto) 7.4 (2.6-8.5) % Eos % (Auto) 1.4 (0-4.4) % Baso % (Auto) 0.7 (0.2-1.2) % Lymph # (Auto) 0.90 (0.9-3.2) K/mm3 [place] # (Auto) 0.3 (0.1-0.6) K/mm3 Eos # (Auto) 0.1 (0-0.3) K/mm3 Baso # (Auto) 0.0 (0.0-0.1) K/mm3 Abs Immat Gran (auto) 0.03 (0.00-0.031) K/mm3 Absolute Neuts (auto) 3.0 (1.3-6.7) K/mm3 Absolute Nucleated RBC 0.000 (0.0-0.012) K/mm3 Band Neutrophils % 0 (0-6) % Nucleated RBC % 0.0 (0.0-0.2) % Platelet Estimate Adequate (Adequate) % Immature Plt Fraction 2.4 (0.9-11.2) % Hypochromasia 1+ Anisocytosis 2+ Schistocytes Rare PT 16.6 H (11.1-14.7) Seconds INR 1.3 APTT 36.6 (22.3-36.8) Seconds Sodium 135 L (137-145) mmol/L Potassium 4.4 (3.4-5.0) mmol/L Chloride 106 (98-107) mmol/L Carbon Dioxide 28 (22-30) mmol/L Anion Gap 1 L (4-12) mmol/L BUN 18 D (9-20) mg/dL Creatinine 0.67 L (0.7-1.3) mg/dL Estim Creat Clear Calc 83 ml/min Estimated GFR > 60 (59 - ) Glucose 99 (65-110) mg/dL Calcium 7.7 L (8.4-10.2) mg/dL Total Bilirubin 0.5 (0.2-1.3) mg/dL AST 29 (17-59) U/L ALT 14 (6-50) U/L Alkaline Phosphatase 91 (38-126) U/L Troponin I < 0.012 (0.000-0.034) ng/mL NT-Pro-B Natriuret Pep 2190 H (19.9-100) pg/mL Total Protein 5.0 L (6.3-8.2) g/dL Albumin 2.2 L (3.5-5.1) g/dL <Darwin Workman MD - Last Filed: 10/31/24 22:01> Imaging Data Radiologist's impression: ITS Impressions Chest X-Ray 10/31/24 16:57 IMPRESSION: Bibasilar atelectasis versus pneumonia. Left pleural effusion. Venous Doppler Study 10/31/24 21:00 IMPRESSION: No upper extremity deep venous thrombosis. Venous Doppler Study 10/31/24 21:02 IMPRESSION: The left peroneal and posterior tibial veins were not visualized. Otherwise patent bilateral lower extremity veins. <Darwin Workman MD - Last Filed: 10/31/24 22:01> Discharge Plan Discharge Clinical Impression: Edema, peripheral <Mandie Frederick APRN - Last Filed: 10/31/24 16:27> Patient Disposition: Home, Self-Care <Mandie Frederick APRN - Last Filed: 10/31/24 16:27> Condition: Stable <Mandie Frederick APRN - Last Filed: 10/31/24 16:27> Instructions: Edema (ED) <Mandie Frederick APRN - Last Filed: 10/31/24 16:27> Additional Instructions: You have diffuse edema from immobility and for nurse minute. Increase her protein in her diet. He also be started on Lasix to get some extra fluid off. You need to follow-up with your primary care doctor to ensure this does not affect your electrolytes. <Mandie Frederick APRN - Last Filed: 10/31/24 16:27> Patient Language: Sudanese <Mandie Frederick APRN - Last Filed: 10/31/24 16:27> Prescriptions: New furosemide [Lasix] 20 mg tablet 20 mg PO DAILY Qty: 7 0RF No Action acetaminophen 500 mg tablet 1,000 mg PO Q8H aspirin 81 mg tablet,chewable 81 mg PO DAILY gabapentin 300 mg capsule 300 mg PO TID lidocaine 5 % adhesive patch,medicated 2 patch topical Q24H Rx Instructions: leave on most painful area for up to 12 hrs oxycodone 5 mg tablet 5 mg PO Q4H PRN (Reason: pain) polyethylene glycol 3350 17 gram powder in packet 17 g PO DAILY sennosides 8.6 mg tablet 17.2 mg PO DAILY atorvastatin [Lipitor] 40 mg tablet 40 mg PO HS cholecalciferol (vitamin D3) 25 mcg (1,000 unit) tablet 2,000 unit PO DAILY cyanocobalamin (vitamin B-12) 1,000 mcg tablet 1,000 mcg PO DAILY apixaban 5 mg tablet 5 mg PO BID ferrous sulfate 325 mg (65 mg iron) tablet 325 mg PO DAILY pantoprazole 40 mg tablet,delayed release (DR/EC) 40 mg PO QAM oxycodone 5 mg Tablet 5 mg PO Q6H PRN (Reason: pain rated 1-10) Qty: 28 0RF <Mandie Frederick APRN - Last Filed: 10/31/24 16:27> Follow-up/Referrals: Renetta,MD Gege [Primary Care Provider] - 1 Week <Mandie Frederick APRN - Last Filed: 10/31/24 16:27>
[2024-10-31 17:42] LABS: Basophils Percent Auto 0.7 % (0.2-1.2); Eosinophils Absolute Auto 0.1 K/mm3 (0-0.3); Eosinophils Percent Auto 1.4 % (0-4.4); Hematocrit 29.9 % (42.0-52.0); Hemoglobin 8.8 g/dL (14.0-18.0); Immature Granulocyte Absolute 0.03 K/mm3 (0.00-0.031); Immature Granulocyte Percent A 0.7 % (0-0.5); Immature Platelet Fraction Pct 2.4 % (0.9-11.2); Lymphocytes Percent Auto 20.7 % (18.3-44.2); Mean Corpuscular HGB Conc 29.4 g/dl (32-36); Mean Corpuscular Volume 88.5 fl (80-100); Monocytes Absolute Auto 0.3 K/mm3 (0.1-0.6); Monocytes Percent Auto 7.4 % (2.6-8.5); Neutrophils Percent Auto 69.1 % (45.5-73.1); Platelet Count Result 232 k/mm3 (150-375); Red Blood Count 3.38 M/mm3 (4.6-6.20); Red Cell Distribution Width 19.7 % (11.5-14.5); White Blood Count 4.4 K/mm3 (4.5-10.0)
[2024-10-31 18:04] LABS: Platelet Estimate Adequate (Adequate)
[2024-10-31 18:05] LABS: Band Neutrophils Percent 0 % (0-6); Hypochromasia 1+; Schistocytes Rare
[2024-10-31 18:06] LABS: Anisocytosis 2+
[2024-10-31 18:12] LABS: Alanine Aminotransferase 14 U/L (6-50); Albumin Level 2.2 g/dL (3.5-5.1); Alkaline Phosphatase 91 U/L (38-126); Anion Gap 1 mmol/L (4-12); Aspartate Amino Transferase 29 U/L (17-59); Bilirubin,Total 0.5 mg/dL (0.2-1.3); Blood Urea Nitrogen 18 mg/dL (9-20); Calcium 7.7 mg/dL (8.4-10.2); Carbon Dioxide 28 mmol/L (22-30); Chloride 106 mmol/L (98-107); Estimated CRCL calculation 83 ml/min; Estimated Glomerular Filt Rate > 60; Glucose 99 mg/dL (65-110); Potassium 4.4 mmol/L (3.4-5.0); Sodium 135 mmol/L (137-145)
[2024-10-31 18:21] LABS: NT Pro B Type Natriuretic Pept 2190 pg/mL (19.9-100); Troponin I < 0.012 ng/mL (0.000-0.034)
--- OUTSIDE RECORDS SUMMARY | 2024-10-31 18:23 | XMS_ITS | Continuity of Care Document ---
Author Organization [facility] Address [address] [place] [address] Phone Care Team Providers Care Clay Temperer Name Role Phone Judie Hoang Unavailable Unavailable Procedures Procedure Date Office/outpatient Visit, Est Dilated Retinal Exam W Interpretation Nh Eye Exam & Treatment Dilated Retinal Exam W Interpretation Nh Office/outpatient Visit, Est Dilated Retinal Exam W Interpretation Nh Eye Exam & Treatment Advance Directives Directive Yes / No Effective Date File Name No Information Encounters Encounter Description Practice Location Reason(s) For Visit Diagnoses Date Provider Providers Copied on Encounter Office/[place]pat [place], [facility] [place] [address] [place] [address] [address], [place], [place], [id number], [place] tel:[phone] [facility] No Information Oct-2 3-201 0 Natalya Dimas. [address] , [address], [place], [place], [facility], [place]. tel:[phone] [facility], [address], [place], [place], [id number], [place] tel:[phone] [facility] No Information Oct-3 1-200 [address] , [address], [place], [address], [place]. tel:[phone] Office/[place]pat ient [place], [facility] [place], [address] [place] [address] [address], [place], [place], [id number], [place] tel:[phone] [facility] No Information Oct-2 8-200 8 Natalya Judie. [address] , [address], [place], [address], . tel:[phone] [facility], [address], [place], [place], [id number], [place] tel:[phone] [facility] No Information Oct-2 7-[address] , [address], [place], [address], [place]. tel:[phone] Family History Family Member Type Diagnosis Age At Onset No Information Payers Payer name Insurance type Covered green party ID Authoriza tion(s) [place] [id number] [place] [id number] Social History Type Description Quantity Date Captured Comments Sex Male Smoking Status No Information Chief Complaint And Reason For Visit No Information Reason For Referral Reason For Referral No Information History Of Present Illness Encounter Date Complaint History Of Prese nt Illness No Information Functional Status Date Functional Assessmen t No Information Instructions Date Instruction Additional Infor mation No Information Assessments Type Assessment Date No Information Patient Care Teams Name Effective Dates (start - stop) Status Members No Information
--- OUTSIDE RECORDS SUMMARY | 2024-10-31 18:24 | XMS_ITS | Data Portability ---
Author Organization [facility] [email or web address], Main Office Address [address] [place] [address] Care Team Providers Care Car Sweeper Name Role Phone YULIA JACKSON Primary Care Provider YULIA JACKSON Referring Provider TONY NDIAYE Performance Architect [facility] IVAN STRANGE Door To Door Lead Generation Assessment Encounter Date Assessment Date Assessment LastModified by Organization Details LastModified Time 09/28/2023 09/28/2023 10/20/2022: A1C 7.4 TSH: WNL HDL 35 Gluc 158, BUN 22 Urine micro alb <6.0 MCV 99.5 02/25/2023: A1C 7.9 Gluc 138, BUN 29 MCV 97.1 07/16/2023: Gluc 150 Not available 09/28/2023 15:41:50 01/25/2024 01/25/2024 10/20/2022: A1C 7.4 TSH: WNL HDL 35 Gluc 158, BUN 22 Urine micro alb <6.0 MCV 99.5 02/25/2023: A1C 7.9 Gluc 138, BUN 29 MCV 97.1 07/16/2023: Gluc 150 01/22/2024: A1C 6.7 Urine micro alb 64.3 B12 >1000 WBC 3.8L, H/H 10.4/34.8 LDL 115 Gluc 125, BUN 29 Not available 01/25/2024 14:53:04 05/11/2024 05/11/2024 The patient gave verbal consent using TelePhonic services and the consent is documented in the medical record prior to using the service. The patient has been informed of what a TeleMedicine visit is. Patient is located at home. Provider is located at office. Names and roles of persons in addition to the patient and provider participating in telemedicine services include none. The patient had a 15 minute TeleMedicine consultation via phone call to discuss the followin10/20/2022: A1C 7.4 TSH: WNL HDL 35 Gluc 158, BUN 22 Urine micro alb <6.0 MCV 99.5 02/25/2023: A1C 7.9 Gluc 138, BUN 29 MCV 97.1 07/16/2023: Gluc 150 01/22/2024: A1C 6.7 Urine micro alb 64.3 B12 >1000 WBC 3.8L, H/H 10.4/34.8 LDL 115 Gluc 125, BUN 29 Not available 05/11/2024 17:22:39 07/20/2024 07/20/2024 10/20/2022: A1C 7.4 TSH: WNL HDL 35 Gluc 158, BUN 22 Urine micro alb <6.0 MCV 99.5 02/25/2023: A1C 7.9 Gluc 138, BUN 29 MCV 97.1 07/16/2023: Gluc 150 01/22/2024: A1C 6.7 Urine micro alb 64.3 B12 >1000 WBC 3.8L, H/H 10.4/34.8 LDL 115 Gluc 125, BUN 29 06/01/2024: A1C 6.7 Urine micro alb 40.0 WBC 3.8, H/H 9.1/31.2 Gluc 104 Not available 07/20/2024 15:36:34 08/17/2024 08/17/2024 10/20/2022: A1C 7.4 TSH: WNL HDL 35 Gluc 158, BUN 22 Urine micro alb <6.0 MCV 99.5 02/25/2023: A1C 7.9 Gluc 138, BUN 29 MCV 97.1 07/16/2023: Gluc 150 01/22/2024: A1C 6.7 Urine micro alb 64.3 B12 >1000 WBC 3.8L, H/H 10.4/34.8 LDL 115 Gluc 125, BUN 29 06/01/2024: A1C 6.7 Urine micro alb 40.0 WBC 3.8, H/H 9.1/31.2 Gluc 104 45 minutes spent with the patient, his case was discussed in detail with Dr Guzman, he too reviewed his chart today 08/17/2024, he is anemic and needs to be on iron which was prescribed and chart was updated [email or web address] Not available 08/17/2024 17:23:24 Plan of Treatment Reminders Order Date Submit Date Provider Last Modified By Organization Details Last Modified Time Details Appointments None recorded . Lab vitamin D, 25-hydro xy, total, serum 2024 025 [facility] (Lab), [address] [place], [address], 5 17:45:27 CMP, serum or plasma 2024 025 [facility] (Lab), [address] [place], [address], 5 17:45:27 CBC w/ auto diff 2024 025 [facility] (Lab), [address] [place], [address], 5 17:45:27 lipid panel, serum 2024 025 [facility] (Lab), [address] [place], [address], 5 17:45:27 TSH, serum or plasma 2024 025 [facility] (Lab), [address] [place], [address], 5 17:45:27 glycohem oglobin, total, blood 2024 025 [facility] (Lab), [address] [place], [address], 5 17:45:27 microalb umin, urine 2024 025 [facility] (Lab), [address] [place], [address], 5 17:45:28 vitamin B12 + folate, serum or blood 2024 025 [facility] (Lab), [address] [place], [address], 5 17:45:27 vitamin D, 25-hydro xy, total, serum [address] (Lab), [address] [place], [address], 4 17:21:14 CMP, serum or plasma [address] (Lab), [address] [place], [address], 4 17:21:15 CBC w/ auto diff [address] (Lab), [address] [place], [address], 4 17:21:15 lipid panel, serum [address] (Lab), [address] [place], [address], 4 17:21:15 TSH, serum or plasma [address] (Lab), [address] [place], [address], 4 17:21:15 glycohem oglobin, total, blood [address] (Lab), [address] [place], [address], 4 17:21:15 microalb umin, urine [address] (Lab), [address] [place], [address], 4 17:21:15 vitamin B12 + folate, serum or blood [address] (Lab), [address] [place], [address], 4 17:21:14 vitamin D, 25-hydro xy, total, serum [address] (Lab), [address] [place], [address], 4 17:24:47 CMP, serum or plasma 2023 024 [facility] (Lab), [address] [place], [address], 4 13:39:05 CBC w/ auto diff 2023 [facility] (Lab), [address] [place], [address], 4 13:14:56 lipid panel, serum 2023 024 [facility] (Lab), [address] [place], [address], 4 13:39:09 TSH, serum or plasma 2023 024 [facility] (Lab), [address] [place], [address], 4 14:38:11 glycohem oglobin, total, blood 2023 [facility] (Lab), [address] [place], [address], 4 21:04:12 microalb umin, urine 2023 024 [facility] (Lab), [address] [place], [address], 4 14:44:42 vitamin B12 + folate, serum or blood [address] (Lab), [address] [place], [address], 4 17:24:47 vitamin D, 25-hydro xy, total, serum [address] (Lab), [address] [place], [address], 4 11:07:05 CMP, serum or plasma [address] (Lab), [address] [place], [address], 4 11:07:06 CBC w/ auto diff [address] (Lab), [address] [place], [address], 4 11:07:06 lipid panel, serum [address] (Lab), [address] [place], [address], 4 11:07:06 TSH, serum or plasma [address] (Lab), [address] [place], [address], 4 11:07:06 glycohem oglobin, total, blood [address] (Lab), [address] [place], [address], 4 11:07:05 microalb umin, urine [address] (Lab), [address] [place], [address], 4 11:07:05 vitamin B12 + folate, serum or blood [address] (Lab), [address] [place], [address], 4 11:07:05 vitamin D, 25-hydro xy, total, serum [address] (Lab), [address] [place], [address], 4 14:05:52 CMP, serum or plasma 2023 024 [facility] (Lab), [address] [place], [address], 4 20:08:33 CBC w/ auto diff 2023 024 [facility] (Lab), [address] [place], [address], 4 19:17:43 lipid panel, serum 2023 024 [facility] (Lab), [address] [place], [address], 4 20:08:38 TSH, serum or plasma 2023 024 [facility] (Lab), [address] [place], [address], 4 20:28:35 glycohem oglobin, total, blood 2023 024 [facility] (Lab), [address] [place], [address], 4 20:06:51 microalb umin, urine 2023 024 [facility] (Lab), [address] [place], [address], 4 16:33:50 vitamin B12 + folate, serum or blood [address] (Lab), [address] [place], [address], 4 14:05:52 Referral nephrolo gist referral 2024 025 [email or web address] [place], [address], [address], [place], [address], 5 08:04:38 pain manageme nt referral 2024 025 [email or web address] Molly Stevenson MD, [address], [place], [address], 5 08:04:39 cardiolo gist referral 2024 025 Rangel Slaughter MD, [address] [facility], [address], [place], [address], 5 08:04:[address] referral 2024 025 [email or web address] Kaveh MCKNIGHTM, [address], [place], [address], 5 08:05:05 nephrolo gist referral 2023 024 [place], [address] [address], [address], [place], [address], 4 11:40:46 pain manageme nt referral 2023 024 [email or web address] Molly Stevenson MD, [address], [place], [address], 11:40:47 hematolo gist referral 2023 024 [email or web address] Dylon Guzman MD, [address], [place], [address], 11:41:50 cardiolo gist referral 2023 024 [email or web address] Rangel Slaughter MD, [address] [facility], [address], [place], [address], 11:40:[address] referral 2023 024 Kaveh Godfrey DPM, [address], [place], [address], 4 11:41:50 nephrolo gist referral 2023 024 [email or web address] [place], [address] [address], [address], [place], [address], 4 12:39:58 pain manageme nt referral 2023 024 Molly Stevenson MD, [address], [place], [address], 4 12:40:25 hematolo gist referral 2023 024 Dylon Guzman MD, [address], [place], [address], 17:26:31 cardiolo gist referral 2023 024 [email or web address] Rangel Slaughter MD, [address] [facility], [facility] [address], [place], [address], 12:38:[address] referral 2023 024 [email or web address] Kaveh Godfrey DPM, [address], [place], [address], 18:14:28 nephrolo gist referral 2023 024 [place], [address] [address], [address], [place], [address], 12:40:03 pain manageme nt referral 2023 024 [email or web address] [facility], [address], [address], [place], [address], 12:40:49 hematolo gist referral 2023 024 Dylon Guzman MD, [address], [place], [address], 12:21:31 cardiolo gist referral 2023 024 [email or web address] Rangel Slaughter MD, [address] [facility], [facility] [address], [place], [address], 4 12:21:[address] referral 2023 024 [email or web address] Kaveh Godfrey DPM, [address], [place], [address], 4 12:21:32 nephrolo gist referral 2023 024 [place], [address] [address], [address], [place], [address], 4 14:06:14 pain manageme nt referral 2023 024 [email or web address] [facility], [address], [address], [place], [address], 4 08:52:29 hematolo gist referral 2023 024 [email or web address] Dylon Guzman MD, [address], [place], [address], 4 14:06:12 cardiolo gist referral 2023 024 [email or web address] Rangel Slaughter MD, [address] [facility], [address], [place], [address], 4 08:52:[address] referral 2023 024 [email or web address] Kaveh Godfrey DPM, [address], [place], [address], 4 14:06:13 Procedures None recorded . Surgeries None recorded . Imaging None recorded . Medication Orders Kerendia 20 mg tablet 2024 025 [facility], [address], [place], [id number], 5 17:12:34 ferrous sulfate 325 mg (65 mg iron) tablet 2024 025 [facility]72114, [address], [place], [id number], 5 17:12:33 Kerendia 20 mg tablet 2023 024 [email or web address], [address], [id number], 4 15:59:20 Kerendia 20 mg tablet 2023 024 [facility] #44914, [address] [place] [address], [id number], 4 17:21:31 atorvast atin 80 mg tablet 2023 024 [email or web address] [facility] #91730, [address] [place] [address], [id number], 4 15:24:04 Kerendia 20 mg tablet 2023 [facility], [address] [facility] [address] [place] [address], [id number], 4 15:09:56 Kerendia 20 mg tablet 2023 024 [facility] #97319, [address] [place] [address], [id number], 15:47:56 Patient TargetsNo targets recorded. Patient Instructions Encounter Date Encounter Id Patient Instructions Last Modified By Organization Details Last Modified Time 09/28/2023 [id number] diabetic eye exam* [email or web address] Not avail able 03/28/2024 14:05:36 05/11/2024 [id number] Due to the COVID -19 (Novel Coronavirus) pandemic, it is within this context (and with the understanding that this method of patient encounter is in the patient s best interest as well as the health and safety of other patients and the public) that telehealth is being provided for this patient encounter rather than a ozgq-uh-goda visit. This patient encounter is appropriate at this time. This patient has been advised of the potential risks and limitations of this mode of treatment (including, but not limited to, the absence of in-person examination) and has agreed to be treated in a remote fashion despite these risks. Any and all of the patient s/patient s family s questions on this issue have been answered, and I have made no promises or guarantees to the patient. The patient has also been advised to contact this office for worsening conditions or problems, and seek emergency medical treatment and/or call 911 if the patient deems either necessary. HPI and/or vitals, if listed, were provided by the patient. Not available 05/11/2024 16:40:58 07/20/2024 [id number] dementia rating scale-2* [email or web address] Not available 07/20/2024 17:02:01 alcohol misuse* [email or web address] Not available 07/20/2024 17:02:15 depression screening* [email or web address] Not available 07/20/2024 17:02:30 Timed Up and Go test (TUG)* [email or web address] Not available 07/20/2024 17:02:47 multi-dimensiona l health assessment questionnaire* [email or web address] Not available 07/20/2024 17:01:52 Personalized a lt Plan and Screening Recommendations Advance Directives - Do you have one? Yes Advance Directives - Do we have your advance directive on file in your health record? Yes Primary Prevention/Interven tion (prevents or decreases the chance of common diseases from occurring) Smoking Risk: Non Smoker Alcohol Misuse Screening: Negative Weight: Appropriate Physical activity: Need more exercise/physical activity decrease sitting time to no more than 5hr/day Nutrition: Good Average Refer to attached handout Heart-Healthy Diet: After Your Visit Fall Risk (screened today): High Refer to attached handout Preventing Falls: After your Visit Vaccines Pneumococcal: Ordered Recommended today Recommended today, but you have declined No further needed Influenza: Ordered Recommended today Chronic Disease Risks Stroke: Low Risk Intermediate Risk I have no recommendations Act michael diagnosis, Continue current treatment plan Heart Attack: Low risk Intermediate Risk Clogging of the Arteries: Low risk Intermediate Risk Diabetes: High Risk Active diagnosis, Continue current treatment plan Secondary Prevention/Interven tion (detects treatable diseases before they may cause symptoms, disability, or ) Prostate Cancer Screening: Colon Cancer Screening: _ Eye Disease Screening: Ordered Recommended today Dementia Risk: Low I have no recommendations Depression Screening: Negative [email or web address] Not available 07/20/2024 17:04:03 Reason for Referral Referring Physician: Yulia Jackson, Internal Medicine, Encounter Date: 09/28/2023 Melter Caster Referral for Type 2 diabetes mellitus without complication Referring Physician: Yulia Jackson, Internal Medicine, Encounter Date: 09/28/2023 Performance Architect Referral for Es sential hypertension Referring Physician: Yulia Jackson Internal Medicine, Encounter Date: 09/28/2023 Door To Door Lead Generation Referral for Hy percalcemia Referring Physician: Courtney Farley Medicine, Encounter Date: 09/28/2023 Pain Management Referral for Low back pain Referring Physician: Yulia Jackson Internal Medicine, Encounter Date: 09/28/2023 Referring Physician: Yulia Jackson Internal Medicine, Encounter Date: 01/25/2024 Melter Caster Referral for Type 2 diabetes mellitus without complication Referring Physician: Courtney Farley, Encounter Date: 01/25/2024 Performance Architect Referral for Es sential hypertension Referring Physician: Courtney Farley, Encounter Date: 01/25/2024 Door To Door Lead Generation Referral for Hy percalcemia Referring Physician: Courtney Farley, Encounter Date: 01/25/2024 Pain Management Referral for Low back pain Referring Physician: Courtney Farley, Encounter Date: 01/25/2024 Referring Physician: Courtney Farley, Encounter Date: 05/11/2024 Melter Caster Referral for Type 2 diabetes mellitus without complication Referring Physician: Courtney Farley, Encounter Date: 05/11/2024 Performance Architect Referral for Es sential hypertension Referring Physician: Courtney Farley, Encounter Date: 05/11/2024 Door To Door Lead Generation Referral for Hy percalcemia Referring Physician: Courtney Farley, Encounter Date: 05/11/2024 Pain Management Referral for Low back pain Referring Physician: Yulia Jackson Internal Medicine, Encounter Date: 05/11/2024 Melter Caster Referral for Type 2 diabetes mellitus without complication Referring Physician: Yulia Jackson Internal Medicine, Encounter Date: 07/20/2024 Performance Architect Referral for Es sential hypertension Referring Physician: Yulia Jackson Internal Medicine, Encounter Date: 07/20/2024 Door To Door Lead Generation Referral for Hy percalcemia Referring Physician: Yulia Jackson Internal Medicine, Encounter Date: 07/20/2024 Pain Management Referral for Low back pain Referring Physician: Yulia Jackson Internal Medicine, Encounter Date: 07/20/2024 Referring Physician: Yulia Jackson Internal Medicine, Encounter Date: 07/20/2024 Melter Caster Referral for Type 2 diabetes mellitus without complication Referring Physician: Yulia Jackson Internal Medicine, Encounter Date: 08/17/2024 Performance Architect Referral for Es sential hypertension Referring Physician: Yulia Jackson Internal Medicine, Encounter Date: 08/17/2024 Door To Door Lead Generation Referral for Hy percalcemia Referring Physician: Yulia Jackson Internal Medicine, Encounter Date: 08/17/2024 Pain Management Referral for Low back pain Referring Physician: Courtney Farley Medicine, Encounter Date: 08/17/2024 Results Created Date Observation Date Name Description Value Unit Range Abnormal Flag Note LastModifiedBy Organization Detail LastModifiedTime 09/28/19 24 09/28/2023 CBC/C OMPLE TE BLD COUNT W/DIF F white blood cells 4.6 x10'3 /uL 4.2-10 .8 Not Available [facility] (Lab) [address] [place], [address], 09/28/2023 19:17:43 09/28/19 24 09/28/2023 CBC/C OMPLE TE BLD COUNT W/DIF F red blood cells 3.82 x10'6 /uL 4.10-5 .80 low Not Available [facility] (Lab) [address] [place], [address], 09/28/2023 19:17:43 09/28/19 24 09/28/2023 CBC/C OMPLE TE BLD COUNT W/DIF F hemoglobin 11.4 g/dL 13.2-1 7.0 low Not Available [facility] (Lab) [address] [place], [address], 09/28/2023 19:17:43 09/28/19 24 09/28/2023 CBC/C OMPLE TE BLD COUNT W/DIF F hematocrit 36.6 % 39.3-5 0.0 low Not Available [facility] (Lab) [address] [place], [address], 09/28/2023 19:17:43 09/28/19 24 09/28/2023 CBC/C OMPLE TE BLD COUNT W/DIF F mean red cell volume 95.8 fL 80.0-9 7.0 Not Available [facility] (Lab) [address] [place], [address], 09/28/2023 19:17:43 09/28/19 24 09/28/2023 CBC/C OMPLE TE BLD COUNT W/DIF F mean red cell hemoglobin 29.8 pg 27.0-3 3.0 Not Available [facility] (Lab) [address] [place], [address], 09/28/2023 19:17:43 09/28/19 24 09/28/2023 CBC/C OMPLE TE BLD COUNT W/DIF F mean RBC HGB concentratio n 31.1 g/dL 31.0-3 6.0 Not Available [facility] (Lab) [address] [place], [address], 09/28/2023 19:17:43 09/28/19 24 09/28/2023 CBC/C OMPLE TE BLD COUNT W/DIF F red cell distribution width 13.2 % 11.8-1 5.5 Not Available [facility] (Lab) [address] [place], [address], 09/28/2023 19:17:43 09/28/19 24 09/28/2023 CBC/C OMPLE TE BLD COUNT W/DIF F platelets 202 x10'3 /uL 150-40 0 Not Available [facility] (Lab) [address] [place], [address], 09/28/2023 19:17:43 09/28/19 24 09/28/2023 CBC/C OMPLE TE BLD COUNT W/DIF F mean platelet volume 10.7 fL 9.0-12 .4 Not Available [facility] (Lab) [address] [place], [address], 09/28/2023 19:17:43 09/28/19 24 09/28/2023 CBC/C OMPLE TE BLD COUNT W/DIF F neutrophils 69.9 % 39.0-7 2.0 Not Available [facility] (Lab) [address] [place], [address], 09/28/2023 19:17:43 09/28/19 24 09/28/2023 CBC/C OMPLE TE BLD COUNT W/DIF F lymphocytes 18.9 % 16.0-4 7.0 Not Available [facility] (Lab) [address] [place], [address], 09/28/2023 19:17:43 09/28/19 24 09/28/2023 CBC/C OMPLE TE BLD COUNT W/DIF F monocytes 8.1 % 5.0-12 .0 Not Available [facility] (Lab) [address] [place], [address], 09/28/2023 19:17:43 09/28/19 24 09/28/2023 CBC/C OMPLE TE BLD COUNT W/DIF F eosinophils 2.0 % 1.0-7. 0 Not Available [facility] (Lab) [address] [place], [address], 09/28/2023 19:17:43 09/28/19 24 09/28/2023 CBC/C OMPLE TE BLD COUNT W/DIF F basophils 0.9 % 0.0-2. 0 Not Available [facility] (Lab) [address] [place], [address], 09/28/2023 19:17:43 09/28/19 24 09/28/2023 CBC/C OMPLE TE BLD COUNT W/DIF F immature granulocytes 0.2 % 0.00-0 .50 Not Available [facility] (Lab) [address] [place], [address], 09/28/2023 19:17:43 09/28/19 24 09/28/2023 CBC/C OMPLE TE BLD COUNT W/DIF F neutrophils, absolute count 3.18 x10'3 /uL 1.5-8. 0 Not Available [facility] (Lab) [address] [place], [address], 09/28/2023 19:17:43 09/28/19 24 09/28/2023 CBC/C OMPLE TE BLD COUNT W/DIF F lymphocytes, absolute count 0.86 x10'3 /uL 1.07-3 .43 low Not Available [facility] (Lab) [address] [place], [address], 09/28/2023 19:17:43 09/28/19 24 09/28/2023 CBC/C OMPLE TE BLD COUNT W/DIF F monocytes, absolute count 0.37 x10'3 /uL 0.29-0 .99 Not Available [facility] (Lab) [address] [place], [address], 09/28/2023 19:17:43 09/28/19 24 09/28/2023 CBC/C OMPLE TE BLD COUNT W/DIF F eosinophils, absolute count 0.09 x10'3 /uL 0.02-0 .53 Not Available [facility] (Lab) [address] [place], [address], 09/28/2023 19:17:43 09/28/19 24 09/28/2023 CBC/C OMPLE TE BLD COUNT W/DIF F basophils, absolute count 0.04 x10'3 /uL 0.01-0 .08 Not Available [facility] (Lab) [address] [place], [address], 09/28/2023 19:17:43 09/28/19 24 09/28/2023 CBC/C OMPLE TE BLD COUNT W/DIF F immature granulocytes ,absolute 0.01 x10'3 /uL 0.00-0 .05 Not Available [facility] (Lab) [address] [place], [address], 09/28/2023 19:17:43 09/28/19 24 09/28/2023 CBC/C OMPLE TE BLD COUNT W/DIF F nucleated red blood cells 0.0 % -0 Not Available [facility] (Lab) [address] [place], [address], 09/28/2023 19:17:43 09/28/19 24 09/28/2023 CBC/C OMPLE TE BLD COUNT W/DIF F NRBC# 0.00 x10'3 /uL Not Available [facility] (Lab) [address] [place], [address], 09/28/2023 19:17:43 09/28/19 24 09/28/2023 HEMOG LOBIN A1C HA1C 6.5 % 4.0-6. 0 high Diabe gary Rekhae cameron Crite cristofer: <5.7% Consi stent with absen ce of diabe gary 5.7-6 .4% Consi stent with incre ased risk for diabe gary (pred iabet es) >OR=6 .5% Consi stent with diabe gary REFER ENCE: Diabe gary Care 2016, 39( ppl.1 ):s13 -s22 Not Available [facility] (Lab) [address] [place], [address], 09/28/2023 20:06:51 09/28/19 24 09/28/2023 COMPR EHENS MICHAEL METAB OLIC PANEL sodium 143 mmol/ L 137-14 5 Not Available [facility] (Lab) [address] [place], [address], 09/28/2023 20:08:33 09/28/19 24 09/28/2023 COMPR EHENS MICHAEL METAB OLIC PANEL potassium 4.4 mmol/ L 3.5-5. 1 Not Available [facility] (Lab) [address] [place], [address], 09/28/2023 20:08:33 09/28/19 24 09/28/2023 COMPR EHENS MICHAEL METAB OLIC PANEL chloride 108 mmol/ L 98-107 high Not Available [facility] (Lab) [address] [place], [address], 09/28/2023 20:08:33 09/28/19 24 09/28/2023 COMPR EHENS MICHAEL METAB OLIC PANEL carbon dioxide 28 mmol/ L 22-30 Not Available [facility] (Lab) [address] [place], [address], 09/28/2023 20:08:33 09/28/19 24 09/28/2023 COMPR EHENS MICHAEL METAB OLIC PANEL anion gap 11.4 mmol/ L 14-22 low Not Available [facility] (Lab) [address] [place], [address], 09/28/2023 20:08:33 09/28/19 24 09/28/2023 COMPR EHENS MICHAEL METAB OLIC PANEL glucose 106 mg/dL 70-99 high Not Available [facility] (Lab) [address] [place], [address], 09/28/2023 20:08:33 09/28/19 24 09/28/2023 COMPR EHENS MICHAEL METAB OLIC PANEL BUN 24 mg/dL 8-19 high Not Available [facility] (Lab) [address] [place], [address], 09/28/2023 20:08:33 09/28/19 24 09/28/2023 COMPR EHENS MICHAEL METAB OLIC PANEL creatinine 0.90 mg/dL 0.66-1 .25 Not Available [facility] (Lab) [address] [place], [address], 09/28/2023 20:08:33 09/28/19 24 09/28/2023 COMPR EHENS MICHAEL METAB OLIC PANEL GFR >60 Refer ence Range : [place] ge GFR Healt hy Adult : >60 mL/mi n/1.7 3 m2 Chron ic Kidne y Disea se: 15-60 mL/mi n/1.7 3 m2 Kidne y Failu re: <15/m L/min /1.73 m2 www.n [email or web address]. nih.g ov The MDRD study equat ion has not been valid ated in child kurtis <18 years of age; pregn ant women ; the elder ly >85 years of age; or in some racia l or ethni c subgr oups, such as Hispa nics. Outsi de the valid ated dru eters , estim ated GFR is less accur ate, requi ring clini paxton judgm ent on a case- by-ca se basis . Clini paxton inter preta tion for other races and ages must be made by the clini phani. The MDRD study equat ion has not been valid ated for the evalu ation of serum creat inine relat ed to nutri maxwell l statu s or medic ation usage . For perso ns <18 years of age, a pedia tric GFR calcu lator is avail able on the [facility] websi te: https :[email or web address] [email or web address] rg/pr ofess ional s/kdo qi/gf r_cal culat or Not Available [facility] (Lab) [address] [place], [address], 09/28/2023 20:08:33 09/28/19 24 09/28/2023 COMPR EHENS MICHAEL METAB OLIC PANEL alkaline phosphatase 84 U/L 38-126 Not Available [facility] (Lab) [address] [place], [address], 09/28/2023 20:08:33 09/28/19 24 09/28/2023 COMPR EHENS MICHAEL METAB OLIC PANEL alanine aminotransfe rase 13 U/L 0-50 Not Available [facility] (Lab) [address] [place], [address], 09/28/2023 20:08:33 09/28/19 24 09/28/2023 COMPR EHENS MICHAEL METAB OLIC PANEL aspartate aminotransfe rase 19 U/L 15-46 Not Available [facility] (Lab) [address] [place], [address], 09/28/2023 20:08:33 09/28/19 24 09/28/2023 COMPR EHENS MICHAEL METAB OLIC PANEL bilirubin, total 1.10 mg/dL 0.20-1 .30 Not Available [facility] (Lab) [address] [place], [address], 09/28/2023 20:08:33 09/28/19 24 09/28/2023 COMPR EHENS MICHAEL METAB OLIC PANEL calcium 9.7 mg/dL 8.4-10 .2 Not Available [facility] (Lab) [address] [place], [address], 09/28/2023 20:08:33 09/28/19 24 09/28/2023 COMPR EHENS MICHAEL METAB OLIC PANEL total protein 6.5 g/dL 6.3-8. 2 Not Available [facility] (Lab) [address] [place], [address], 09/28/2023 20:08:33 09/28/19 24 09/28/2023 COMPR EHENS MICHAEL METAB OLIC PANEL albumin 3.9 g/dL 3.0-4. 4 Not Available [facility] (Lab) [address] [place], [address], 09/28/2023 20:08:33 09/28/19 24 09/28/2023 COMPR EHENS MICHAEL METAB OLIC PANEL globulin 2.6 g/dL 2.6-4. 2 Not Available [facility] (Lab) [address] [place], [address], 09/28/2023 20:08:33 09/28/19 24 09/28/2023 COMPR EHENS MICHAEL METAB OLIC PANEL A/G ratio 1.5 ratio 1.0-2. 0 Not Available [facility] (Lab) [address] [place], [address], 09/28/2023 20:08:33 09/28/19 24 09/28/2023 LIPID PANEL cholesterol 111 mg/dL 140-19 9 low NIH KRISTEN NSUS RECOM MENDA TION FOR GUSTAVO STERO L: ADULT CHILD LOW RISK: <200 <170 BORDE RLINE : <200- 239 ----- HIGH RISK: >240 >200 Not Available [facility] (Lab) [address] [place], [address], 09/28/2023 20:08:38 09/28/19 24 09/28/2023 LIPID PANEL triglyceride s 143 mg/dL 0-150 NIH KRISTEN NSUS REPOR T RECOM MENDA TION FOR TRIGL YCERI SHANI: ADULT CHILD LOW RISK: <150 ----- BODER LINE: 150-1 99 ----- HIGH RISK: >200 ----- Not Available [facility] (Lab) [address] [place], [address], 09/28/2023 20:08:38 09/28/19 24 09/28/2023 LIPID PANEL HDL cholesterol 26 mg/dL 40- low Not Available [facility] (Lab) [address] [place], [address], 09/28/2023 20:08:38 09/28/19 24 09/28/2023 LIPID PANEL LDL cholesterol, calculated 56 mg/dL 0-130 NIH KRISTEN NSUS REPOR T RECOM MENDA TIONS FOR LDL: ADULT CHILD LOW RISK <130 <110 (OPTI MAL LDL) <100 ----- BORDE RLINE : 130-1 59 ----- HIGH RISK: >160 >130 A TRIGL YCERI DE RESUL T >400 INVAL IDATE S THE CALCU LATIO N FOR LDL FRACT IONAT ION - THE LDL RESUL T WILL NOT BE REPOR MIKE. Not Available [facility] (Lab) [address] [place], [address], 09/28/2023 20:08:38 09/28/19 24 09/28/2023 VITAM IN D 25-HY DROXY [id number] 63.7 NG/mL 30-100 Vitam in D Statu s: Defic ient: <20 ng/mL Insuf ficie nt: 20-29 ng/mL Suffi cient : 30-10 0 ng/mL Not Available [facility] (Lab) [address] [place], [address], 09/28/2023 20:27:09 09/28/19 24 09/28/2023 TSH W/REF BLANCA FT4 TSH with reflex free T4 1.920 uIU/m L 0.465- 4.680 Not Available [facility] (Lab) [address] [place], [address], 09/28/2023 20:28:35 01/22/20 24 01/22/2024 CBC/C OMPLE TE BLD COUNT W/DIF F white blood cells 3.8 x10'3 /uL 4.2-10 .8 low Not Available [facility] (Lab) [address] [place], [address], 01/22/2024 13:47:16 01/22/20 24 01/22/2024 CBC/C OMPLE TE BLD COUNT W/DIF F red blood cells 3.95 x10'6 /uL 4.10-5 .80 low Not Available [facility] (Lab) [address] [place], [address], 01/22/2024 13:47:16 01/22/20 24 01/22/2024 CBC/C OMPLE TE BLD COUNT W/DIF F hemoglobin 10.4 g/dL 13.2-1 7.0 low Not Available [facility] (Lab) [address] [place], [address], 01/22/2024 13:47:16 01/22/20 24 01/22/2024 CBC/C OMPLE TE BLD COUNT W/DIF F hematocrit 34.8 % 39.3-5 0.0 low Not Available [facility] (Lab) [address] [place], [address], 01/22/2024 13:47:16 01/22/20 24 01/22/2024 CBC/C OMPLE TE BLD COUNT W/DIF F mean red cell volume 88.1 fL 80.0-9 7.0 Not Available [facility] (Lab) [address] [place], [address], 01/22/2024 13:47:16 01/22/20 24 01/22/2024 CBC/C OMPLE TE BLD COUNT W/DIF F mean red cell hemoglobin 26.3 pg 27.0-3 3.0 low Not Available [facility] (Lab) [address] [place], [address], 01/22/2024 13:47:16 01/22/20 24 01/22/2024 CBC/C OMPLE TE BLD COUNT W/DIF F mean RBC HGB concentratio n 29.9 g/dL 31.0-3 6.0 low Not Available [facility] (Lab) [address] [place], [address], 01/22/2024 13:47:16 01/22/20 24 01/22/2024 CBC/C OMPLE TE BLD COUNT W/DIF F red cell distribution width 15.1 % 11.8-1 5.5 Not Available [facility] (Lab) [address] [place], [address], 01/22/2024 13:47:16 01/22/20 24 01/22/2024 CBC/C OMPLE TE BLD COUNT W/DIF F platelets 212 x10'3 /uL 150-40 0 Not Available [facility] (Lab) [address] [place], [address], 01/22/2024 13:47:16 01/22/20 24 01/22/2024 CBC/C OMPLE TE BLD COUNT W/DIF F mean platelet volume 10.8 fL 9.0-12 .4 Not Available [facility] (Lab) [address] [place], [address], 01/22/2024 13:47:16 01/22/20 24 01/22/2024 CBC/C OMPLE TE BLD COUNT W/DIF F neutrophils 67.9 % 39.0-7 2.0 Not Available [facility] (Lab) [address] [place], [address], 01/22/2024 13:47:16 01/22/20 24 01/22/2024 CBC/C OMPLE TE BLD COUNT W/DIF F lymphocytes 21.1 % 16.0-4 7.0 Not Available [facility] (Lab) [address] [place], [address], 01/22/2024 13:47:16 01/22/20 24 01/22/2024 CBC/C OMPLE TE BLD COUNT W/DIF F monocytes 8.9 % 5.0-12 .0 Not Available [facility] (Lab) [address] [place], [address], 01/22/2024 13:47:16 01/22/2001/22/2024 CBC/C OMPLE TE BLD COUNT W/DIF F eosinophils 1.3 % 1.0-7. 0 Not Available [facility] (Lab) [address] [place], [address], 01/22/2024 13:47:16 01/22/20 24 01/22/2024 CBC/C OMPLE TE BLD COUNT W/DIF F basophils 0.5 % 0.0-2. 0 Not Available [facility] (Lab) [address] [place], [address], 01/22/2024 13:47:16 01/22/2001/22/2024 CBC/C OMPLE TE BLD COUNT W/DIF F immature granulocytes 0.3 % 0.00-0 .50 Not Available [facility] (Lab) [address] [place], [address], 01/22/2024 13:47:16 01/22/20 24 01/22/2024 CBC/C OMPLE TE BLD COUNT W/DIF F neutrophils, absolute count 2.60 x10'3 /uL 1.5-8. 0 Not Available [facility] (Lab) [address] [place], [address], 01/22/2024 13:47:16 01/22/20 24 01/22/2024 CBC/C OMPLE TE BLD COUNT W/DIF F lymphocytes, absolute count 0.81 x10'3 /uL 1.07-3 .43 low Not Available [facility] (Lab) [address] [place], [address], 01/22/2024 13:47:16 01/22/20 24 01/22/2024 CBC/C OMPLE TE BLD COUNT W/DIF F monocytes, absolute count 0.34 x10'3 /uL 0.29-0 .99 Not Available [facility] (Lab) [address] [place], [address], 01/22/2024 13:47:16 01/22/20 24 01/22/2024 CBC/C OMPLE TE BLD COUNT W/DIF F eosinophils, absolute count 0.05 x10'3 /uL 0.02-0 .53 Not Available [facility] (Lab) [address] [place], [address], 01/22/2024 13:47:16 01/22/20 24 01/22/2024 CBC/C OMPLE TE BLD COUNT W/DIF F basophils, absolute count 0.02 x10'3 /uL 0.01-0 .08 Not Available [facility] (Lab) [address] [place], [address], 01/22/2024 13:47:16 01/22/2001/22/2024 CBC/C OMPLE TE BLD COUNT W/DIF F immature granulocytes ,absolute 0.01 x10'3 /uL 0.00-0 .05 Not Available [facility] (Lab) [address] [place], [address], 01/22/2024 13:47:16 01/22/20 24 01/22/2024 CBC/C OMPLE TE BLD COUNT W/DIF F nucleated red blood cells 0.0 % -0 Not Available [facility] (Lab) [address] [place], [address], 01/22/2024 13:47:16 01/22/20 24 01/22/2024 CBC/C OMPLE TE BLD COUNT W/DIF F NRBC# 0.00 x10'3 /uL Not Available [facility] (Lab) [address] [place], [address], 01/22/2024 13:47:16 01/22/20 24 01/22/2024 CBC/C OMPLE TE BLD COUNT W/DIF F hypochromia OCCASI ONAL Not Available [facility] (Lab) [address] [place], [address], 01/22/2024 13:47:16 01/22/20 24 01/22/2024 CBC/C OMPLE TE BLD COUNT W/DIF F microcytosis OCCASI ONAL Not Available [facility] (Lab) [address] [place], [address], 01/22/2024 13:47:16 01/22/20 24 01/22/2024 COMPR EHENS MICHAEL METAB OLIC PANEL sodium 140 mmol/ L 137-14 5 Not Available [facility] (Lab) [address] [place], [address], 01/22/2024 13:39:36 01/22/20 24 01/22/2024 COMPR EHENS MICHAEL METAB OLIC PANEL potassium 4.0 mmol/ L 3.5-5. 1 Not Available [facility] (Lab) [address] [place], [address], 01/22/2024 13:39:36 01/22/20 24 01/22/2024 COMPR EHENS MICHAEL METAB OLIC PANEL chloride 111 mmol/ L 98-107 high Not Available [facility] (Lab) [address] [place], [address], 01/22/2024 13:39:36 01/22/20 24 01/22/2024 COMPR EHENS MICHAEL METAB OLIC PANEL carbon dioxide 26 mmol/ L 22-30 Not Available [facility] (Lab) [address] [place], [address], 01/22/2024 13:39:36 01/22/20 24 01/22/2024 COMPR EHENS MICHAEL METAB OLIC PANEL anion gap 7.0 mmol/ L 14-22 low Not Available [facility] (Lab) [address] [place], [address], 01/22/2024 13:39:36 01/22/20 24 01/22/2024 COMPR EHENS MICHAEL METAB OLIC PANEL glucose 125 mg/dL 70-99 high Not Available [facility] (Lab) [address] [place], [address], 01/22/2024 13:39:36 01/22/20 24 01/22/2024 COMPR EHENS MICHAEL METAB OLIC PANEL BUN 29 mg/dL 8-19 high Not Available [facility] (Lab) [address] [place], [address], 01/22/2024 13:39:36 01/22/20 24 01/22/2024 COMPR EHENS MICHAEL METAB OLIC PANEL creatinine 1.02 mg/dL 0.66-1 .25 Not Available [facility] (Lab) [address] [place], [address], 01/22/2024 13:39:36 01/22/20 24 01/22/2024 COMPR EHENS MICHAEL METAB OLIC PANEL GFR >60 Refer ence Range : [place] GFR Healt hy Adult : >60 mL/mi n/1.7 3 m2 Chron ic Kidne y Disea se: 15-60 mL/mi n/1.7 3 m2 Kidne y Failu re: <15/m L/min /1.73 m2 www.[email or web address] iddk. nih.g ov The MDRD study equat ion has not been valid ated in child kurtis <18 years of age; pregn ant women ; the elder ly >85 years of age; or in some racia l or ethni c subgr oups, such as Hispa nics. Outsi de the valid ated dru eters , estim ated GFR is less accur ate, requi ring clini paxton judgm ent on a case- by-ca se basis . Clini paxton inter preta tion for other races and ages must be made by the clini phani. The MDRD study equat ion has not been valid ated for the evalu ation of serum creat inine relat ed to nutri maxwell l statu s or medic ation usage . For perso ns <18 years of age, a pedia tric GFR calcu lator is avail able on the [facility] websi te: [email or web address] :[email or web address] karla/pr ofess ional s/kdo qi/gf r_cal culat or Not Available [facility] (Lab) [address] [place], [address], 01/22/2024 13:39:36 01/22/20 24 01/22/2024 COMPR EHENS MICHAEL METAB OLIC PANEL alkaline phosphatase 99 U/L 38-126 Not Available [facility] (Lab) [address] [place], [address], 01/22/2024 13:39:36 01/22/20 24 01/22/2024 COMPR EHENS MICHAEL METAB OLIC PANEL alanine aminotransfe rase 18 U/L 0-50 Not Available [facility] (Lab) [address] [place], [address], 01/22/2024 13:39:36 01/22/20 24 01/22/2024 COMPR EHENS MICHAEL METAB OLIC PANEL aspartate aminotransfe rase 25 U/L 15-46 Not Available [facility] (Lab) [address] [place], [address], 01/22/2024 13:39:36 01/22/20 24 01/22/2024 COMPR EHENS MICHAEL METAB OLIC PANEL bilirubin, total 0.60 mg/dL 0.20-1 .30 Not Available [facility] (Lab) [address] [place], [address], 01/22/2024 13:39:36 01/22/20 24 01/22/2024 COMPR EHENS MICHAEL METAB OLIC PANEL calcium 9.1 mg/dL 8.4-10 .2 Not Available [facility] (Lab) [address] [place], [address], 01/22/2024 13:39:36 01/22/20 24 01/22/2024 COMPR EHENS MICHAEL METAB OLIC PANEL total protein 6.5 g/dL 6.3-8. 2 Not Available [facility] (Lab) [address] [place], [address], 01/22/2024 13:39:36 01/22/20 24 01/22/2024 COMPR EHENS MICHAEL METAB OLIC PANEL albumin 3.7 g/dL 3.0-4. 4 Not Available [facility] (Lab) [address] [place], [address], 01/22/2024 13:39:36 01/22/20 24 01/22/2024 COMPR EHENS MICHAEL METAB OLIC PANEL globulin 2.8 g/dL 2.6-4. 2 Not Available [facility] (Lab) [address] [place], [address], 01/22/2024 13:39:36 01/22/20 24 01/22/2024 COMPR EHENS MICHAEL METAB OLIC PANEL A/G ratio 1.3 ratio 1.0-2. 0 Not Available [facility] (Lab) [address] [place], [address], 01/22/2024 13:39:36 01/22/20 24 01/22/2024 LIPID PANEL cholesterol 169 mg/dL 140-19 9 NIH KRISTEN NSUS RECOM MENDA TION FOR GUSTAVO STERO L: ADULT CHILD LOW RISK: <200 <170 BORDE RLINE : <200- 239 ----- HIGH RISK: >240 >200 Not Available [facility] (Lab) [address] [place], [address], 01/22/2024 13:39:40 01/22/20 24 01/22/2024 LIPID PANEL triglyceride s 147 mg/dL 0-150 NIH KRISTEN NSUS REPOR T RECOM MENDA TION FOR TRIGL YCERI SHANI: ADULT CHILD LOW RISK: <150 ----- BODER LINE: 150-1 99 ----- HIGH RISK: >200 ----- Not Available [facility] (Lab) [address] [place], [address], 01/22/2024 13:39:40 01/22/20 24 01/22/2024 LIPID PANEL HDL cholesterol 25 mg/dL 40- low Not Available [facility] (Lab) [address] [place], [address], 01/22/2024 13:39:40 01/22/20 24 01/22/2024 LIPID PANEL LDL cholesterol, calculated 115 mg/dL 0-130 NIH KRISTEN NSUS REPOR T RECOM MENDA TIONS FOR LDL: ADULT CHILD LOW RISK <130 <110 (OPTI MAL LDL) <100 ----- BORDE RLINE : 130-1 59 ----- HIGH RISK: >160 >130 A TRIGL YCERI DE RESUL T >400 INVAL IDATE S THE CALCU LATIO N FOR LDL FRACT IONAT ION - THE LDL RESUL T WILL NOT BE REPOR MIKE. Not Available [facility] (Lab) [address] [place], [address], 01/22/2024 13:39:40 01/22/2001/22/2024 TSH W/REF BLANCA FT4 TSH with reflex free T4 1.810 uIU/m L 0.465- 4.680 Not Available [facility] (Lab) [address] [place], [address], 01/22/2024 14:01:24 01/22/20 24 01/22/2024 VITAM IN D 25-HY DROXY [id number] 54.5 NG/mL 30-100 Vitam in D Statu s: Defic ient: <20 ng/mL Insuf ficie nt: 20-29 ng/mL Suffi cient : 30-10 0 ng/mL Not Available [facility] (Lab) [address] [place], [address], 01/22/2024 15:25:09 01/22/20 24 01/22/2024 VITAM IN B12 (MARSHAL RITO ) vb12 >1000 pg/mL 239-93 1 high Not Available [facility] (Lab) [address] [place], [address], 01/22/2024 16:08:55 01/22/20 24 01/22/2024 FOLAT E, SERUM /PLAS MA folate 7.45 NG/mL 2.76-2 0.0 Not Available [facility] (Lab) [address] [place], [address], 01/22/2024 16:08:57 01/22/20 24 01/22/2024 MICRO ALBUM IN RANDO M URINE microalbumin , urine 64.3 mg/L 0.0-16 .6 high Not Available [facility] (Lab) [address] [place], [address], 01/22/2024 16:33:50 01/22/20 24 01/23/2024 HEMOG LOBIN A1C HA1C 6.7 % 4.0-6. 0 high Diabe gary Scree cameron Crite cristofer: <5.7% Consi stent with absen ce of diabe gary 5.7-6 .4% Consi stent with incre ased risk for diabe gary (pred iabet es) >OR=6 .5% Consi stent with diabe gary REFER ENCE: Diabe gary Care 2016, 39(Moreno ppl.1 ):s13 -s22 Not Available [facility] (Lab) [address] [place], [address], 01/23/2024 21:06:59 06/01/2006/01/2024 CBC/C OMPLE TE BLD COUNT W/DIF F white blood cells 3.8 x10'3 /uL 4.2-10 .8 low Not Available [facility] (Lab) [address] [place], [address], 06/01/2024 14:26:05 06/01/2006/01/2024 CBC/C OMPLE TE BLD COUNT W/DIF F red blood cells 3.66 x10'6 /uL 4.10-5 .80 low Not Available [facility] (Lab) [address] [place], [address], 06/01/2024 14:26:05 06/01/2006/01/2024 CBC/C OMPLE TE BLD COUNT W/DIF F hemoglobin 9.1 g/dL 13.2-1 7.0 low Not Available [facility] (Lab) [address] [place], [address], 06/01/2024 14:26:05 06/01/2006/01/2024 CBC/C OMPLE TE BLD COUNT W/DIF F hematocrit 31.2 % 39.3-5 0.0 low Not Available [facility] (Lab) [address] [place], [address], 06/01/2024 14:26:05 06/01/2006/01/2024 CBC/C OMPLE TE BLD COUNT W/DIF F mean red cell volume 85.2 fL 80.0-9 7.0 Not Available [facility] (Lab) [address] [place], [address], 06/01/2024 14:26:05 06/01/2006/01/2024 CBC/C OMPLE TE BLD COUNT W/DIF F mean red cell hemoglobin 24.9 pg 27.0-3 3.0 low Not Available [facility] (Lab) [address] [place], [address], 06/01/2024 14:26:05 06/01/2006/01/2024 CBC/C OMPLE TE BLD COUNT W/DIF F mean RBC HGB concentratio n 29.2 g/dL 31.0-3 6.0 low Not Available [facility] (Lab) [address] [place], [address], 06/01/2024 14:26:05 06/01/2006/01/2024 CBC/C OMPLE TE BLD COUNT W/DIF F red cell distribution width 18.1 % 11.8-1 5.5 high Not Available [facility] (Lab) [address] [place], [address], 06/01/2024 14:26:05 06/01/2006/01/2024 CBC/C OMPLE TE BLD COUNT W/DIF F platelets 212 x10'3 /uL 150-40 0 Not Available [facility] (Lab) [address] [place], [address], 06/01/2024 14:26:05 06/01/2006/01/2024 CBC/C OMPLE TE BLD COUNT W/DIF F mean platelet volume 10.5 fL 9.0-12 .4 Not Available [facility] (Lab) [address] [place], [address], 06/01/2024 14:26:05 06/01/2006/01/2024 CBC/C OMPLE TE BLD COUNT W/DIF F neutrophils 68.6 % 39.0-7 2.0 Not Available [facility] (Lab) [address] [place], [address], 06/01/2024 14:26:05 06/01/2006/01/2024 CBC/C OMPLE TE BLD COUNT W/DIF F lymphocytes 20.1 % 16.0-4 7.0 Not Available [facility] (Lab) [address] [place], [address], 06/01/2024 14:26:05 06/01/2006/01/2024 CBC/C OMPLE TE BLD COUNT W/DIF F monocytes 8.9 % 5.0-12 .0 Not Available [facility] (Lab) [address] [place], [address], 06/01/2024 14:26:05 06/01/2006/01/2024 CBC/C OMPLE TE BLD COUNT W/DIF F eosinophils 1.6 % 1.0-7. 0 Not Available [facility] (Lab) [address] [place], [address], 06/01/2024 14:26:05 06/01/2006/01/2024 CBC/C OMPLE TE BLD COUNT W/DIF F basophils 0.3 % 0.0-2. 0 Not Available [facility] (Lab) [address] [place], [address], 06/01/2024 14:26:05 06/01/2006/01/2024 CBC/C OMPLE TE BLD COUNT W/DIF F immature granulocytes 0.5 % 0.00-0 .50 Not Available [facility] (Lab) [address] [place], [address], 06/01/2024 14:26:05 06/01/2006/01/2024 CBC/C OMPLE TE BLD COUNT W/DIF F neutrophils, absolute count 2.64 x10'3 /uL 1.5-8. 0 Not Available [facility] (Lab) [address] [place], [address], 06/01/2024 14:26:05 06/01/2006/01/2024 CBC/C OMPLE TE BLD COUNT W/DIF F lymphocytes, absolute count 0.77 x10'3 /uL 1.07-3 .43 low Not Available [facility] (Lab) [address] [place], [address], 06/01/2024 14:26:05 06/01/20 24 06/01/2024 CBC/C OMPLE TE BLD COUNT W/DIF F monocytes, absolute count 0.34 x10'3 /uL 0.29-0 .99 Not Available [facility] (Lab) [address] [place], [address], 06/01/2024 14:26:05 06/01/2006/01/2024 CBC/C OMPLE TE BLD COUNT W/DIF F eosinophils, absolute count 0.06 x10'3 /uL 0.02-0 .53 Not Available [facility] (Lab) [address] [place], [address], 06/01/2024 14:26:05 06/01/2006/01/2024 CBC/C OMPLE TE BLD COUNT W/DIF F basophils, absolute count 0.01 x10'3 /uL 0.01-0 .08 Not Available [facility] (Lab) [address] [place], [address], 06/01/2024 14:26:05 06/01/2006/01/2024 CBC/C OMPLE TE BLD COUNT W/DIF F immature granulocytes ,absolute 0.02 x10'3 /uL 0.00-0 .05 Not Available [facility] (Lab) [address] [place], [address], 06/01/2024 14:26:05 06/01/2006/01/2024 CBC/C OMPLE TE BLD COUNT W/DIF F nucleated red blood cells 0.0 % -0 Not Available [facility] (Lab) [address] [place], [address], 06/01/2024 14:26:05 06/01/2006/01/2024 CBC/C OMPLE TE BLD COUNT W/DIF F NRBC# 0.00 x10'3 /uL Not Available [facility] (Lab) [address] [place], [address], 06/01/2024 14:26:05 06/01/2006/01/2024 CBC/C OMPLE TE BLD COUNT W/DIF F hypochromia OCCASI ONAL Not Available [facility] (Lab) [address] [place], [address], 06/01/2024 14:26:05 06/01/2006/01/2024 CBC/C OMPLE TE BLD COUNT W/DIF F chasity cells OCCASI ONAL Not Available [facility] (Lab) [address] [place], [address], 06/01/2024 14:26:05 06/01/2006/01/2024 COMPR EHENS MICHAEL METAB OLIC PANEL sodium 139 mmol/ L 137-14 5 Not Available [facility] (Lab) [address] [place], [address], 06/01/2024 13:39:05 06/01/2006/01/2024 COMPR EHENS MICHAEL METAB OLIC PANEL potassium 4.0 mmol/ L 3.5-5. 1 Not Available [facility] (Lab) [address] [place], [address], 06/01/2024 13:39:05 06/01/2006/01/2024 COMPR EHENS MICHAEL METAB OLIC PANEL chloride 108 mmol/ L 98-107 high Not Available [facility] (Lab) [address] [place], [address], 06/01/2024 13:39:05 06/01/2006/01/2024 COMPR EHENS MICHAEL METAB OLIC PANEL carbon dioxide 27 mmol/ L 22-30 Not Available [facility] (Lab) [address] [place], [address], 06/01/2024 13:39:05 06/01/2006/01/2024 COMPR EHENS MICHAEL METAB OLIC PANEL anion gap 8.0 mmol/ L 14-22 low Not Available [facility] (Lab) [address] [place], [address], 06/01/2024 13:39:05 06/01/2006/01/2024 COMPR EHENS MICHAEL METAB OLIC PANEL glucose 104 mg/dL 70-99 high Not Available [facility] (Lab) [address] [place], [address], 06/01/2024 13:39:05 06/01/2006/01/2024 COMPR EHENS MICHAEL METAB OLIC PANEL BUN 21 mg/dL 8-19 high Not Available [facility] (Lab) [address] [place], [address], 06/01/2024 13:39:05 06/01/2006/01/2024 COMPR EHENS MICHAEL METAB OLIC PANEL creatinine 0.94 mg/dL 0.66-1 .25 Not Available [facility] (Lab) [address] [place], [address], 06/01/2024 13:39:05 06/01/2006/01/2024 COMPR EHENS MICHAEL METAB OLIC PANEL GFR >60 Refer ence Range : [place] [facility] GFR Healt hy Adult : >60 mL/mi n/1.7 3 m2 Chron ic Kidne y Disea se: 15-60 mL/mi n/1.7 3 m2 Kidne y Failu re: <15/m L/min /1.73 m2 [email or web address] The MDRD study equat ion has not been valid ated in child kurtis <18 years of age; pregn ant women ; the elder ly >85 years of age; or in some racia l or ethni c subgr oups, such as Hispa nics. Outsi de the valid ated dru eters , estim ated GFR is less accur ate, requi ring clini paxton judgm ent on a case- by-ca se basis . Clini paxton inter preta tion for other races and ages must be made by the clini phani. The MDRD study equat ion has not been valid ated for the evalu ation of serum creat inine relat ed to nutri maxwell l statu s or medic ation usage . For perso ns <18 years of age, a pedia tric GFR calcu lator is avail able on the [facility] websi te: [email or web address] :[email or web address] culat or Not Available [facility] (Lab) [address] [place], [address], 06/01/2024 13:39:05 06/01/2006/01/2024 COMPR EHENS MICHAEL METAB OLIC PANEL alkaline phosphatase 84 U/L 38-126 Not Available [facility] (Lab) [address] [place], [address], 06/01/2024 13:39:05 06/01/20 24 06/01/2024 COMPR EHENS MICHAEL METAB OLIC PANEL alanine aminotransfe rase 15 U/L 0-50 Not Available [facility] (Lab) [address] [place], [address], 06/01/2024 13:39:05 06/01/20 24 06/01/2024 COMPR EHENS MICHAEL METAB OLIC PANEL aspartate aminotransfe rase 21 U/L 15-46 Not Available [facility] (Lab) [address] [place], [address], 06/01/2024 13:39:05 06/01/20 24 06/01/2024 COMPR EHENS MICHAEL METAB OLIC PANEL bilirubin, total 0.50 mg/dL 0.20-1 .30 Not Available [facility] (Lab) [address] [place], [address], 06/01/2024 13:39:05 06/01/2006/01/2024 COMPR EHENS MICHAEL METAB OLIC PANEL calcium 8.8 mg/dL 8.4-10 .2 Not Available [facility] (Lab) [address] [place], [address], 06/01/2024 13:39:05 06/01/2006/01/2024 COMPR EHENS MICHAEL METAB OLIC PANEL total protein 5.6 g/dL 6.3-8. 2 low Not Available [facility] (Lab) [address] [place], [address], 06/01/2024 13:39:05 06/01/2006/01/2024 COMPR EHENS MICHAEL METAB OLIC PANEL albumin 2.7 g/dL 3.0-4. 4 low Not Available [facility] (Lab) [address] [place], [address], 06/01/2024 13:39:05 06/01/2006/01/2024 COMPR EHENS MICHAEL METAB OLIC PANEL globulin 2.9 g/dL 2.6-4. 2 Not Available [facility] (Lab) [address] [place], [address], 06/01/2024 13:39:05 06/01/2006/01/2024 COMPR EHENS MICHAEL METAB OLIC PANEL A/G ratio 0.9 ratio 1.0-2. 0 low Not Available [facility] (Lab) [address] [place], [address], 06/01/2024 13:39:05 06/01/20 24 06/01/2024 LIPID PANEL cholesterol 97 mg/dL 140-19 9 low NIH KRISTEN NSUS RECOM MENDA TION FOR GUSTAVO STERO L: ADULT CHILD LOW RISK: <200 <170 BORDE RLINE : <200- 239 ----- HIGH RISK: >240 >200 Not Available [facility] (Lab) [address] [place], [address], 06/01/2024 13:39:08 06/01/20 24 06/01/2024 LIPID PANEL triglyceride s 81 mg/dL 0-150 NIH KRISTEN NSUS REPOR T RECOM MENDA TION FOR TRIGL YCERI SHANI: ADULT CHILD LOW RISK: <150 ----- BODER LINE: 150-1 99 ----- HIGH RISK: >200 ----- Not Available [facility] (Lab) [address] [place], [address], 06/01/2024 13:39:08 06/01/20 24 06/01/2024 LIPID PANEL HDL cholesterol 26 mg/dL 40- low Not Available [facility] (Lab) [address] [place], [address], 06/01/2024 13:39:08 06/01/2006/01/2024 LIPID PANEL LDL cholesterol, calculated 55 mg/dL 0-130 NIH KRISTEN NSUS REPOR T RECOM MENDA TIONS FOR LDL: ADULT CHILD LOW RISK <130 <110 (OPTI MAL LDL) <100 ----- BORDE RLINE : 130-1 59 ----- HIGH RISK: >160 >130 A TRIGL YCERI DE RESUL T >400 INVAL IDATE S THE CALCU LATIO N FOR LDL FRACT IONAT ION - THE LDL RESUL T WILL NOT BE REPOR MIKE. Not Available [facility] (Lab) [address] [place], [address], 06/01/2024 13:39:08 06/01/20 24 06/01/2024 VITAM IN D 25-HY DROXY vd25oh 37.6 NG/mL 30-100 Vitam in D Statu s: Defic ient: <20 ng/mL Insuf ficie nt: 20-29 ng/mL Suffi cient : 30-10 0 ng/mL Not Available [facility] (Lab) [address] [place], [address], 06/01/2024 13:57:52 06/01/2006/01/2024 TSH W/REF BLANCA FT4 TSH with reflex free T4 1.060 uIU/m L 0.465- 4.680 Not Available [facility] (Lab) [address] [place], [address], 06/01/2024 14:38:11 06/01/2006/01/2024 VITAM IN B12 (MARSHAL RITO ) vb12 985 pg/mL 239-93 1 high Not Available [facility] (Lab) [address] [place], [address], 06/01/2024 14:47:31 06/01/2006/01/2024 FOLAT E, SERUM /PLAS MA folate 5.72 NG/mL 2.76-2 0.0 Not Available [facility] (Lab) [address] [place], [address], 06/01/2024 14:47:32 06/01/2006/01/2024 HEMOG LOBIN A1C HA1C 6.7 % 4.0-6. 0 high Diabe gary Scree cameron Crite cristofer: <5.7% Consi stent with absen ce of diabe gary 5.7-6 .4% Consi stent with incre ased risk for diabe gary (pred iabet es) >OR=6 .5% Consi stent with diabe gary REFER ENCE: Diabe gary Care 2016, 39(Moreno ppl.1 ):s13 -s22 Not Available [facility] (Lab) [address] [place], [address], 06/01/2024 21:04:12 06/02/20 24 06/02/2024 MICRO ALBUM IN RANDO M URINE microalbumin , urine 40.0 mg/L 0.0-16 .6 high Not Available [facility] (Lab) [address], [place], [address], 06/02/2024 14:44:42 09/02/19 24 09/02/2023 , echoc ardio gram No observ ation record ed. [facility] [address], [place], [address], 03/25/2024 11:49:40 11/01/19 25 10/31/2024 imagi ng/di agnos tic resul t No observ ation record ed. [facility] [address] [facility] [address], [place], [address], 10/31/2024 18:04:48 Result Notes None recorded. Problems Name Problem SNOMED Code Status Onset Date Resolution Date Notes Provider Name and Address Organization Details Recorded Time Neoplasm of prostate 804900802 Active Not Available [facility] 3 11:36:16 Disorder of lumbar spine 932004201 Active Not Available [facility] 3 11:36:16 Hyperchole sterolemia 59350157 Active 2019 Not Available [facility] 3 11:36:16 Insomnia 757388874 Active 2021 Not Available [facility] 3 11:36:16 Osteoarthr itis of knee 468449820 Active Not Available [facility] 3 11:36:16 Anemia 522008317 Active 2019 Not Available [facility] 3 11:36:16 Skin problem 328594766 Active 2019 Not Available [facility] 3 11:36:16 Type 2 diabetes mellitus without complicati on 622992089 Active Not Available [facility] 3 11:36:16 Osteoarthr itis of left knee joint 7786078066887 09 Active 2021 Not Available [facility] 3 11:36:16 Vitamin D deficiency 12720791 Active 2021 Not Available [facility] 3 11:36:16 Disorder of eye 898371918 Active 2019 Not Available [facility] 3 11:36:16 Arthritis 2286430 Active 2019 Not Available [facility] 3 11:36:16 Neuropathy 615170127 Active 2019 Not Available [facility] 3 11:36:16 Osteoarthr itis 108875260 Active Not Available [facility] 3 11:36:16 Dizziness 802315744 Active 2019 Not Available [facility] 3 11:36:16 Attention deficit hyperactiv ity disorder 081406829 Active 2019 Not Available [facility] 3 11:36:16 Coronary atheroscle rosis 935757030 Active Not Available [facility] 3 11:36:16 Uncontroll ed type 2 diabetes mellitus 092356782 Active Not Available [facility] 11:36:16 Seasonal allergy 798949015 Active 2019 Not Available [facility] 3 11:36:16 Pain of left knee joint 2094445008597 07 Active 2021 Not Available [facility] 3 11:36:16 Anxiety 63395836 Active Not Available [facility] 3 11:36:16 Atrial fibrillati on 28791086 Active Not Available [facility] 3 11:36:16 Hyperlipid emia 72916401 Active 2021 Not Available [facility] 3 11:36:16 Heart disease 77171872 Active 2019 Not Available [facility] 3 11:36:16 Problem of prostate 343383666 Active 2019 Not Available [facility] 3 11:36:16 Diabetes mellitus 20143570 Active 2019 Not Available [facility] 3 11:36:16 Dystrophia unguium 00022286 Active 2019 Not Available [facility] 3 11:36:16 Coronary arterioscl erosis 90292170 Active 2022 Not Available [facility] 3 11:36:16 Essential hypertensi on 62317162 Active 2022 Not Available [facility] 3 11:36:16 Hypercalce felix 93897102 Active 2022 Not Available [facility] 3 11:36:16 Gastroesop hageal reflux disease without esophagiti s 010027855 Active 2022 Not Available [facility] 3 11:36:16 Persistent insomnia 162539470 Active 2022 Not Available [facility] 3 11:36:16 Thrombocyt openic disorder 474947713 Active 2022 Not Available [facility] 3 11:36:16 Urinary incontinen ce 280273546 Active 2022 Not Available [facility] 3 11:36:16 Erythrocyt osis 422516864 Active 2022 Not Available [facility] 3 11:36:16 Serum vitamin B12 below reference range 233298251 Active 2022 Not Available [facility] 3 11:36:16 Low back pain 679255519 Active 2022 Yulia watts MD [address], [address], [place], [address] , [facility] [email or web address] 3 15:49:55 Unsteady when walking 84869255 Active 2023 Yulia watts MD [address], [address], [place], [address] , [facility] [email or web address] 4 17:18:38 Unintentio nal weight loss 317074653 Active 2023 Yulia watts MD [address], [address], [place], [address] , [facility] [email or web address] 4 16:00:55 Hypoprotei nemia 6716178 Active 2024 Yulia watts MD [address], [place], [address] , [facility] [employer] [facility] 17:23:35 Notes:PROSTATE, URINARY/BLAD SARATH/KIDNEY PROBLEMS, USE OF BLOOD THINNERS Use of NSAIDS Problem Notes None recorded. Procedures Surgical History Date Name Laterality Status Provider Name and Address Organization Details Recorded Time 07/20/20 Medicare Wellness CPT Code, subsequent completed Ethan Joshi LPN [facility] [employer] [facility] 07/20/2024 08:28:19 04/27/20 Medicare Wellness CPT Code, subsequent cancelled Ethan Joshi LPN [facility] [employer] [facility] 04/27/2024 08:47:18 03/02/20 Medicare Wellness CPT Code, subsequent completed Suzie Bermudez RN [facility] [employer] [facility] 03/02/2023 15:53:20 02/17/20 Nail Debridement completed Kaveh Godfrey DPM [address] [facility] [address], [place], [address], [facility] [employer] [facility] 02/16/2023 12:43:33 Knee Surgery completed Not Available [facility] 10/08/2022 04:59:11 Pacemaker completed Not Available [facility] 0 10/08/2022 04:59:11 Prostatectomy completed Not Available [facility] th 10/08/2022 04:59:11 Neck Surgeries completed Paula Norwood [facility] [employer] [facility] 02/16/2023 12:05:55 Imaging Results Imaging Date Name Status LastModified by Organization Details LastModified Time 09/02/2023 US, echocardiogram completed [email or web address] [facility] [address], [place], [address], 03/25/2024 11:49:40 10/31/2024 imaging/diagnostic result active [place] [id number] [facility] [address] [facility], [place], [address], 10/31/2024 18:04:48 Procedure Notes None recorded. Medical Equipment None Reported. Allergies Allergen ID Allergen Name Allergen Category Reaction Reaction Severity Criticality Documentation Date Start Date Code Code System Note Provider Name and Address Organization Details Recorded Time 9246 amiodaron e medicatio n other Not available Not available 10/08/2022 703 RxNorm unkno wn Not Available [facility] 3 05:12:43 Medications Name Sig Start Date Stop Date Status Note LastModified by Organization Details LastModified Time losartan 50 mg tablet Take 2 tablets every day by oral route. active Not Available Not Available No t Available atorvasta tin 40 mg tablet Take 1 tablet every day by oral route. active Not Available Not Available No t Available atorvasta tin 80 mg tablet Take 1 tablet every day by oral route for 90 days. 07/20 completed Not Available Not Available Not Available carvedilo l 25 mg tablet Take 1 tablet twice a day by oral route for 90 days. active Not Available Not Available No t Available carvedilo l 6.25 mg tablet 10/[address] Strange 06/03/20 21 Not Available Not Available Not Available carvedilo l 12.5 mg tablet 10/14 completed Not Available Not Available Not Available amiodaron e 200 mg tablet Take 2 tablets every day by oral route. 2015 active Not Available Not Available Not Avai lable chlorzoxa zone 500 mg tablet 10/17 completed Not Available Not Available Not Available cephalexi n 250 mg capsule 09/28 completed Not Available Not Available Not Available sotalol 80 mg tablet 10/17 completed Not Available Not Available Not Available diltiazem CD 240 mg capsule,e xtended release 24 hr 10/17 completed Not Available Not Available Not Available chlorthal idone 25 mg tablet Take 1 tablet every day by oral route. 06/03 completed Not Available Not Available Not Available tramadol 50 mg tablet 10/17 completed Not Available Not Available Not Available sotalol 120 mg tablet Take 1 tablet twice a day by oral route. active Not Available Not Available No t Available simvastat in 40 mg tablet Take 1 tablet every day by oral route for 90 days. 06/16 completed Not Available Not Available Not Available glimepiri de 2 mg tablet Take 1 tablet twice a day by oral route for 90 days. 10/14 completed Not Available Not Available Not Available Niaspan 1,000 mg tablet,ex tended release 10/17 completed Not Available Not Available Not Available losartan 100 mg-hydroc hlorothia zide 25 mg tablet active Not Available Not Available No t Available alprazola m 0.5 mg tablet active Not Available Not Available Not Available MagOx 400 mg (241.3 mg magnesium ) tablet 2 daily 12/15 completed Not Available Not Available Not Available lorazepam 0.5 mg tablet active Not Available Not Available Not Available Kenalog 10 mg/mL suspensio n for injection in office 09/[address] [facility]: [id number] 4-20 Not Available Not Available Not Available lorazepam 2 mg tablet Take 1 tablet 3 times a day by oral route. 09/28 completed Not Available Not Available Not Available hydrocodo ne 7.5 mg-acetam inophen 325 mg tablet 10/17 completed Not Available Not Available Not Available cephalexi n 500 mg capsule 06/25 completed Not Available Not Available Not Available pantopraz ole 40 mg tablet,de layed release Take 1 tablet every day by oral route. active Not Available Not Available No t Available ferrous sulfate 325 mg (65 mg iron) tablet Take 1 tablet every day by oral route. 2024 active Not Available Not Available Not Avai lable losartan 25 mg tablet Take 1 tablet every day by oral route for 90 days. 03/11 completed Not Available Not Available Not Available metoprolo l tartrate 50 mg tablet Take 1 tablet twice a day by oral route. 01/13 completed Not Available Not Available Not Available gabapenti n 300 mg capsule 10/17 completed Not Available Not Available Not Available sertralin e 25 mg tablet Take 1 tablet every day by oral route in the morning for 30 days. active Not Available Not Available No t Available cephalexi n 500 mg tablet Take 1 tablet every 8 hours by oral route. 06/25 completed Not Available Not Available Not Available hydrocodo ne 5 mg-acetam inophen 500 mg tablet 10/17 completed Not Available Not Available Not Available lorazepam 1 mg tablet TAKE ONE TABLET BY MOUTH EVERY DAY DIRECTED active Not Available Not Available No t Available oxycodone -acetamin ophen 7.5 mg-325 mg tablet 10/17 completed Not Available Not Available Not Available zolpidem 10 mg tablet 10/17 completed Not Available Not Available Not Available ondansetr on 4 mg disintegr ating tablet 10/17 completed Not Available Not Available Not Available losartan 100 mg tablet 10/17 completed Not Available Not Available Not Available ramipril 10 mg capsule TAKE 1 CAPSULE DAILY active Not Available Not Available No t Available oxycodone 5 mg tablet 10/22 completed Not Available Not Available Not Available S88-Nxepj 1,000 mcg tablet Take 1 tablet every day by oral route. 2019 active Not Available Not Available Not Avai lable metformin ER 750 mg tablet,ex tended release 24 hr Take 1 tablet every day by oral route for 90 days. active Not Available Not Available No t Available metoprolo l tartrate 25 mg tablet TK 1T PO QD 11/19 completed Not Available Not Available Not Available Caduet 10 mg-40 mg tablet 10/17 completed Not Available Not Available Not Available cinacalce t 30 mg tablet 06/25 completed Not Available Not Available Not Available magnesium 400 mg once daily 01/24 completed Not Available Not Available Not Available Lipitor 06/16 completed Not Available Not Available Not Available losartan 50mg BID 09/[address] Slaughter Not Available Not Available Not Available Metamucil PRN 02/04 completed Not Available Not Available Not Available [place] 3 with Fish Oil 1200mg 1 Daily 09/17 completed Not Available Not Available Not Available calcium carbonate -vitamin D2 07/30 completed Not Available Not Available Not Available fish oil-omega 3-vit E-flax oil 03/19 completed Not Available Not Available Not Available lidocaine (PF) 5 mg/mL (0.5 %) injection solution In office injectio n administ ered by the provider 02/12 completed Not Available Not Available Not Available ferrous fumarate 325 mg (106 mg iron) tablet Take 1 tablet every day by oral route. 09/17 completed Not Available Not Available Not Available Vitamin D 2,000 unit capsule Take 1 capsule every day by oral route. 2020 active Not Available Not Available Not Avai lable lidocaine 2 % mucosal jelly in applicato r Take by mucous route. 02/12 completed Not Available Not Available Not Available Multaq 400 mg tablet 10/17 completed Not Available Not Available Not Available dabigatra n etexilate 150 mg capsule Take 1 capsule twice a day by oral route. 06/16 completed Not Available Not Available Not Available Pradaxa 2 daily 06/16 completed Not Available Not Available Not Available ropivacai ne (PF) 5 mg/mL (0.5 %) injection solution in office 01/24 completed Not Available Not Available Not Available Xarelto 20 mg tablet Take 1 tablet every day by oral route for 90 days. active Not Available Not Available No t Available metoprolo l succ 25 mg-hydroc hlorothia zide 12.5 mg tablet,ex t.rel 24 hr Take 2 tablets every day by oral route. 02/04 completed Not Available Not Available Not Available Accu-Chek SmartView Test Strips TEST BLOOD SUGAR ONCE DAILY DIRECTED 2023 active Not Available Not Available Not Avai lable Vitamin D2 weekly 09/19 completed Not Available Not Available Not Available Metamucil MultiHeal th Fiber PRN 10/22 completed Not Available Not Available Not Available Myrbetriq 50 mg tablet,ex tended release Take 1 tablet every day by oral route. 06/25 completed Not Available Not Available Not Available Vascepa 1 gram capsule TAKE 2 CAPSULES BY MOUTH TWICE A DAY DIRECTED 01/24 completed Not Available Not Available Not Available Vascepa 12/[address] Slaughter gave samples Not Available Not Available Not Available Eliquis 5 mg tablet TAKE 1 TABLET BY MOUTH TWICE DAILY. active Not Available Not Available No t Available Farxiga 10 mg tablet 10/14 completed Not Available Not Available Not Available Jardiance 10 mg tablet Take 1 tablet every day by oral route for 30 days. active Not Available Not Available No t Available Accu-Chek Fastclix Lancet Drum USE TO TEST BLOOD SUGAR ONCE A DAY active Not Available Not Available No t Available Kerendia 20 mg tablet Take 1 tablet every day by oral route for 90 days. active Not Available Not Available No t Available Vitals Date Recorded Body height Body weight Body temperature Heart rate Oxygen saturation Oxygen saturation in Arterial blood by Pulse oximetry Systolic blood pressure Diastolic blood pressure Provider Name and Address Organization Details Last Updated DateTime 4 177.8 cm 05232 g 97.3 [degF] 83 /min 95 % 95 % 120 mm[Hg] 60 mm[Hg] LISETTE Chaparro [facility] [employer] [facility] 4 15:37:03 Date Recorded Body height Body mass index (BMI) Body weight Body temperature Heart rate Systolic blood pressure Diastolic blood pressure Provider Name and Address Organization Details Last Updated DateTime 4 177.8 cm 26.1 kg/m2 42293.8 1 g 97.6 [degF] 60 /min 110 mm[Hg] 60 mm[Hg] LISETTE Carreon [facility] [employer] [facility] 4 14:39:54 Date Recorded Body height Provider Name an d Address Organization Details Last Updated DateTime 05/11/2024 177.8 cm Zamzam Ragland Carlos [facility] [employer] [facility] 05/11/2024 16:41:28 Date Recorded Body height Body mass index (BMI) Body weight Body temperature Heart rate Respiratory rate Oxygen saturation Oxygen saturation in Arterial blood by Pulse oximetry Pain severity - 0-10 verbal numeric rating [Score] - Reported Systolic blood pressure Diastolic blood pressure Provider Name and Address Organization Details Last Updated DateTime 4 177.8 cm 24.4 kg/m2 36217.7 g 97.8 [degF] 64 /min 18 /min 99 % 99 % 0 102 mm[Hg] 54 mm[Hg] Ethan Joshi LPN [facility] [employer] [facility] 4 15:21:12 Date Recorded Body height Body temperature Body mass index (BMI) Body weight Systolic blood pressure Diastolic blood pressure Provider Name and Address Organization Details Last Updated DateTime 5 177.8 cm 97.3 [degF] 25.5 kg/m2 41209.4 4 g 110 mm[Hg] 52 mm[Hg] LISETTE Carreon [facility] [employer] [facility] 5 16:43:25 Social History Question Answer Notes LastModified by Organizat ion Details LastModified Time Tobacco Smoking Status Former Smoker Not Available [facility] 10/08/2022 04:57:17 Do You Have An Advance Directive? Yes [id number] Information not available 10/08/2022 What Is Your Level Of Alcohol Consumption? None [id number] Information not available 10/08/2022 Are You Blind Or Do You Have Difficulty Seeing? No [id number] Information not available 10/08/2022 How Much Tobacco Do You Chew? None [id number] Information not available 10/08/2022 In The 14 Days Before Symptom Onset, Have You Had Close Contact With A Laboratory-confi rmed COVID-19 While That Case Was Ill? No [id number] Information not available 10/08/2022 In The 14 Days Before Symptom Onset, Have You Had Close Contact With A Person Who Is Under Investigation For COVID-19 While That Person Was Ill? No [id number] Information not available 10/08/2022 Are You Deaf Or Do You Have Serious Difficulty Hearing? No [id number] Information not available 10/08/2022 What Type Of Diet Are You Following? REGULAR [id number] Information not available 10/08/2022 Which Illicit Or Recreational Drugs Have You Used? None [id number] Information not available 10/08/2022 Do You Or Have You Ever Used E-cigarettes Or Vape? Never Used Electronic Cigarettes [id number] Information not available 10/08/2022 What Is The Highest Grade Or Level Of School You Have Completed Or The Highest Degree You Have Received? [id number].11909 [id number] Information not available 10/08/2022 What Is Your Occupation? Retired [id number] Information not available 10/08/2022 Have There Been Any Changes To Your Family Or Social Situation? No [id number] Information not available 10/08/2022 What Is The Fluoride Status Of Your Home? Unknown [id number] Information not available 10/08/2022 When Did You Quit Smoking? 15+yearssincelwarren lee MIGRATION.29944 [id number] Information not available 10/08/2022 Are There Any Guns Present In Your Home? Yes [id number] Information not available 10/08/2022 Do You Use Insect Repellent Routinely? No Information not available 03/02/2023 Where Do You Live? SingleLevelHouse Information not available 03/02/2023 Presence Of Domestic Violence No Information not available 03/02/2023 Guns Present In The Home? Yes Information not available 03/02/2023 Are You Able To Care For Yourself? Yes Information not available 03/02/2023 Are You Blind Or Do Yo Have Difficulty Seeing? No Information not available 03/02/2023 Are You Deaf Or Do You Have Serious Difficulty Hearing? No Information not available 03/02/2023 General Stress Level? Low Information not available 03/02/2023 Do You Have A Medical Power Of Bow Maker Production? Yes [id number] Information not available 10/08/2022 What Was The Date Of Your Most Recent Tobacco Screening? 08/17/2024 Information not available 08/17/2024 Do You Have Any Pets? No [id number] Information not available 10/08/2022 What Is Your Relationship Status? [id number] Information not available 10/08/2022 Do You Use Your Seat Belt Or Car Seat Routinely? Yes MIGRATION.45363 [id number] Information not available 10/08/2022 Do You Have Smoke And Carbon Monoxide Detectors In Your Home? Yes MIGRATION.40716 90892 Information not available 10/08/2022 At What Age Did You Start Smoking Tobacco? 19 MIGRATION.72503 43184 Information not available 10/08/2022 Are You Passively Exposed To Smoke? No MIGRATION.50782 93015 Information not available 10/08/2022 Do You Or Have You Ever Used Smokeless Tobacco? Never Used Smokeless Tobacco MIGRATION.56799 19609 Information not available 10/08/2022 Are There Any Smokers In Your House? No MIGRATION.88200 39443 Information not available 10/08/2022 What Types Of Sporting Activities Do You Participate In? None MIGRATION.05789 76085 Information not available 10/08/2022 Do You Feel Stressed (tense, Restless, Nervous, Or Anxious, Or Unable To Sleep At Night)? [id number] MIGRATION.82545 83612 Information not available 10/08/2022 Do You Use Any Illicit Or Recreational Drugs? No MIGRATION.17475 51622 Information not available 10/08/2022 Do You Use Sunscreen Routinely? No Information not available 03/02/2023 Has Tobacco Cessation Counseling Been Provided? No MIGRATION.45505 31456 Information not available 10/08/2022 How Many Years Have You Smoked Tobacco? 36 MIGRATION.60264 85004 Information not available 10/08/2022 Have You Recently Traveled Abroad? No MIGRATION.39415 66304 Information not available 10/08/2022 Do You Have Any Dietary Restrictions? No MIGRATION.07433 59184 Information not available 10/08/2022 Do You Or Have You Ever Used Any Other Forms Of Tobacco Or Nicotine? No MIGRATION.10386 69709 Information not available 10/08/2022 Sex: Male Functional Status Question Answer Note LastModified by [employer] Details LastModified Time Do you have difficulty walking or climbing stairs? Yes MIGRATION.816302 5627 Information not available 10/08/2022 Do you have transportation difficulties? No MIGRATION.639600 9968 Information not available 10/08/2022 Are you able to walk? YESASSIST uses cane MIGRATION.896132 5564 Information not available 10/08/2022 Do you have difficulty doing errands alone? No MIGRATION.560824 8842 Information not available 10/08/2022 Are you able to care for yourself? Yes MIGRATION.239489 4976 Information not available 10/08/2022 Do you have difficulty dressing or bathing? No MIGRATION.656551 6911 Information not available 10/08/2022 What is your exercise level? None MIGRATION.416133 4102 Information not available 10/08/2022 Mental Status Question Answer Note LastModified by Organizat ion Details LastModified Time Do you have difficulty concentrating, remembering or making decisions? No MIGRATION.[id number] 6 Information not available 10/08/2022 Family History Relationship Description Onset Age of this Age Resolved Age Notes LastModified by Organization Details LastModified Time Father Heart disease MIGRATION.755 [id number] Not available 10/08/2022 04:59:14 Father Family history of stroke MIGRATION.303 [id number] Not available 10/08/2022 04:59:14 Brother Family history of malignant neoplasm MIGRATION.496 [id number] Not available 10/08/2022 04:59:14 Mother Diabetes mellitus MIGRATION.100 [id number] Not available 10/08/2022 04:59:14 Father Cerebrovascu lar accident [email or web address] Not available 05/2023 12:04:19 Father Arthritis [email or web address] Not available 02/16/2023 12:04:31 Notes:stroke-father cancer- self Medical History Condition Response BLINDNESS N KIDNEY STONES N MRSA N CARPAL TUNNEL SYNDROME N LUNG DISEASE/DISORDER N HISTORY OF DRUG ABUSE N RADIATION / CHEMOTHERAPY N COPD N SPORTS INJURY N ANKLE PAIN N BLOOD DISEASES N SCHIZOPHRENIA N SHINGLES N BOWEL PROBLEMS N SHOULDER PAIN N DEPRESSION (INCLUDING POST ) N STROKE/TIA N KNEE PAIN N ULCERS N BENIGN PROSTATIC HYPERPLASIA N OBESITY N GERD/NAUSEA N ANEURYSM N URINARY/BLADDER/KIDNEY PROBLEMS Y CORONARY ARTERY DISEASE (CAD) N ADDICTION CONCERNS N USE OF BLOOD THINNERS Y SKIN PROBLEMS Y EMPHYSEMA N MUSCLE,JOINT OR BONE PROBLEMS N DVT N STOMACH ULCERS N BLOOD CLOTS N USE OF NSAIDS N CONCUSSION OR SPINAL TRAUMA N NEUROPATHY N AIDS/HIV N FRACTURES N ELBOW PAIN N HYPERTENSION N TOURETTE'S N ANXIETY DISORDER N Metal allergy N BLOOD TRANSFUSION N ANEMIA/BLOOD DISORDER N BIPOLAR DISORDER N BRONCHITIS N OSTEOARTHRITIS N TUBERCULOSIS N FOOT PROBLEM N HEART VALVE DISORDERS N ALLERGIES/HAYFEVER N SOFT TISSUE INJURY N INFECTIOUS DISEASE N HEART ARRHYTHMIA N INSOMNIA N RHEUMATOID ARTHRITIS N HIGH CHOLESTEROL / HYPERLIPIDEMIA Y EDEMA N CHRONIC PAIN SYNDROME N CAROTID BLOCKAGE N BACK / NECK PROBLEMS N BURSITIS N HERNIATED DISC N DIALYSIS N FIBROMYALGIA N OSTEOPOROSIS N ARTHRITIS Y PERIPHERAL NEUROPATHY N DIABETES, TYPE Y HEARTBURN / REFLUX N HEPATITIS / LIVER DISEASE N GOUT N SLEEP DISORDER N ALZHEIMER'S DISEASE N HERPES N HEADACHES/MIGRAINES N SEIZURES/EPILEPSY N PACEMAKER Y VASCULAR DISEASE N HIP PAIN N Blood Disorder N DIZZINESS N HEAD TRAUMA OR INJURY N HEART DISEASE/HEART PROBLEMS Y MULTIPLE SCLEROSIS N CANCER: SPECIFY Y CARDIAC ARRHYTHMIA N ANESTHESIA COMPLICATIONS N ATRIAL FIBRILLATION N AUTOIMMUNE DISEASE N Immunizations Vaccine Type Date Status Note Provider Nam e and Address Organization Details Recorded Time Influenza, MDCK, quadrivalent, PF 9 completed LISETTE Carreon, [facility] [employer] [facility] 07/20/2024 16:11:50 Influenza, adjuvanted, quadrivalent, PF 2 completed LISETTE Carreon, [facility] [employer] [facility] 07/20/2024 16:11:50 COVID-19, mRNA, LNP-S, PF, 30 mcg/0.3 mL dose, chastity-sucrose 2 completed Zamzam Ragland, RMA null, [facility] 07/20/2024 16:11:50 COVID-19, mRNA, LNP-S, bivalent, PF, 30 mcg/0.3 mL dose 2 completed Zamzam Ragland, RMA null, [facility] 07/20/2024 16:11:50 Influenza, high-dose, trivalent, PF 6 completed Zamzam Ellyn, RMA null, [facility] 07/20/2024 16:11:50 Influenza, high-dose, trivalent, PF 7 completed Zamzam Ragland, RMA null, [facility] 07/20/2024 16:11:50 Influenza, high-dose, trivalent, PF 8 completed Zamzam Ragland RMA null, [facility] 07/20/2024 16:11:50 Influenza, high-dose, trivalent, PF 5 completed Zamzam Ragland, RMA null, [facility] 07/20/2024 16:11:50 Influenza, split virus, quadrivalent, PF 4 completed Zamzam Ellyn, RMA null, [facility] 07/20/2024 16:11:50 Influenza, split virus, quadrivalent, PF 3 completed Zamzam Ragland RMA null, [facility] 07/20/2024 16:11:50 Influenza, split virus, quadrivalent, PF 0 completed Zamzam Ragland, RMA null, [facility] 07/20/2024 16:11:50 COVID-19, mRNA, LNP-S, PF, 100 mcg/0.5mL dose or 50 mcg/0.25mL dose 1 completed Zamzam Ragland, RMA null, [facility] 07/20/2024 16:11:50 COVID-19, mRNA, LNP-S, PF, 100 mcg/0.5mL dose or 50 mcg/0.25mL dose 1 completed Zamzam Ragland RMA null, [facility] 07/20/2024 16:11:50 COVID-19, mRNA, LNP-S, PF, 100 mcg/0.5mL dose or 50 mcg/0.25mL dose 1 completed Zamzam Ragland RMA null, [facility] 07/20/2024 16:11:50 Influenza, high-dose, trivalent, PF 0 completed Zamzam Ragland RMA null, [facility] 07/20/2024 16:11:50 Influenza, high-dose, trivalent, PF 9 completed Zamzam Ragland RMA null, [facility] 07/20/2024 16:11:50 influenza, unspecified formulation 7 completed Not Available [facility] 01/16/2023 11:36:17 pneumococcal polysaccharide PPV23 2 completed Not Available [facility] 01/16/2023 11:36:17 Influenza, high-dose, quadrivalent, PF 1 completed Not Available [facility] 01/16/2023 11:36:16 Pneumococcal conjugate PCV 13 8 completed Not Available [facility] 01/16/2023 11:36:17 Influenza, high-dose, quadrivalent, PF 3 completed Yulia Jackson MD [address], [place], [address], [facility] 06/01/2023 18:23:03 Influenza, high-dose, trivalent, PF 4 completed Yulia Jackson MD [address], [place], [address], [facility] 07/31/2024 15:22:14 Past Encounters Encounter ID Performer Location Encounter Start Date Encounter Closed Date Diagnosis/Indication Diagnosis SNOMED-CT Code Diagnosis ICD10 Code Diagnosis Note [id number] [facility] [place] [address] [facility] [place] [address] 02/04/2021 00:00:00 02/05/2021 10:04:08 [id number] [facility] [place] [address] [place] [address] [place] [address] 06/03/2021 00:00:00 06/03/2021 16:23:39 [id number] [facility] [place] [address] [place] [address] [place] [address] 10/14/2021 00:00:00 10/14/2021 16:01:41 [id number] [facility] [address] [address] 10/22/2021 00:00:00 10/22/2021 16:34:19 [id number] [facility] [address] [address] 11/19/2021 00:00:00 01/07/2022 08:07:36 [id number] [facility] [address] [address] 12/10/2021 00:00:00 12/10/2021 16:18:59 [id number] [facility] [place] [address] [facility] [address] [place] [address] 01/27/2022 00:00:00 01/27/2022 17:19:13 [id number] [facility] [place] [address] [place] [address] [place] [address] 02/12/2022 00:00:00 02/12/2022 18:24:19 [id number] [facility] [address] [address] 04/01/2022 00:00:00 04/01/2022 15:02:54 [id number] [facility] [address] [place] [address] 05/06/2022 00:00:00 05/06/2022 15:06:23 [id number] [facility] [place] [address] [facility] [address] [place] [address] 05/12/2022 00:00:00 05/12/2022 17:33:25 [id number] [facility] [address] [place] [address] [place] [address] 06/25/2022 00:00:00 06/25/2022 15:11:10 [id number] [facility] [place] [address] [facility] [address] [place] [address] 08/18/2022 00:00:00 08/18/2022 15:50:58 [id number] Yulia watts MD [facility] [place] [address] [place] [address] [place] [address] 10/22/2022 14:01:50 10/22/2022 14:53:19 Screening - NAD [id number] Z13.9 C-scope: Refused to do this at this time all risks explained again He denies any complaints UTD on flu shotUTD pneumonia #13 today 09/16/17Ge t Tdap, shingles vaccineUTD COVID 19 vaccine RTC in 4 monthswith labs, he would like to get his labs thru the [facility] if worse,he did verbalize his understand ing of the above Coronary arteriosclerosis 55293624 I25.10 CAD s/p CABG s/p PMOn losartanOn magnesiumO n sotalolOn eliquis 5mg bidSees Dr Slaughter Essential hypertension 30934767 I10 On coreg 25mg bidOn losartan 50mg 2 tabs daily Not on chlorthali done 25mg dailyNot on metoprolol 25mg daily On sotalol 120mg bidOn magnesium Hypercalcemia 97245415 E 83.52 OV 02/04/2021 :Did see Dr Strange 11/20/2020 , needs to see Dr Berta Strange 05/07/2021 , started on coreg, f/u in 2 months to see if parathyroi dectomy is done OV 10/14/2021 :Dr Strange 08/20/2021 , to get parathyroi dectomy as per his note, he is to see ENT on 10/31/2021 Dr Mary in [facility] OV 02/12/2022 :On cinacalcet 30mg dailySeen by ENT Dr Mary 10/31/2021 , referred to endocrineD id speak with Dr Strange, he will now be referred to another ENT OV 06/25/2022 :Now to get surgery by Dr Sommer in [facility] on 07/07/2022 , states that he is to get a pre op cardiac clearance to be done tomorrow OV 10/22/2022 :S/p surgeryGet labs Gastroesop hageal reflux disease without esophagitis 306795153 K21.9 On PPI, take only as needed Persistent insomnia 1919 12040 G47.09 On lorazepamT marques as needed Thrombocyt openic disorder 670630453 D69.[address] Guzman hematology Urinary incontinence [address] Oneal 11/04/2022 Pain of le ft knee joint 0788754848 44463 M25.562 Daljit Hughes PA, next 11/17/2022 Serum beatriz min B12 below reference range 414430287 R79.89 Vitamin D deficiency 347 38227 E55.9 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 679049539 E11.9 On jardianceO n kerendiaOn metformin 750mg dailyGet labs [id number] PAULY Garcia [facility] [place] [address] [place] [address] 11/17/2022 14:57:50 11/17/2022 16:15:51 Osteoarthritis of left knee joint 5270056949 30756 M17.12 [id number] Kaveh Godfrey DPM [facility] [place] [address] [place] [address] 02/16/2023 11:58:00 02/16/2023 15:02:09 Diabetes mellitus 85496601 E11.9 Check feet daily for wounds infectionC ontinue diabetic control per PCPContinu e supportive shoe gearFollow -up in 1 year Dystrophia unguium 60705 009 L60.3 Nails 1 through 10 were debrided with sharp mechanical debridemen t without incident. Nails were debrided and greater than 50% length and thickness where needed. [id number] PAULY Garcia [facility] [place] [address] [place] [address] 02/16/2023 15:18:43 02/16/2023 17:56:41 Osteoarthritis of left knee joint 9634963506 75226 M17.12 [id number] Yulia watts MD [facility] [address] [place] [address] 03/02/2023 15:04:43 03/02/2023 16:01:44 Screening - NAD 896756779 Z13.9 C-scope: Refused to do this at this time all risks explained againHe denies any complaints UTD on flu shotUTD pneumonia #13 today 09/16/17Ge t Tdap, shingles vaccineUTD COVID 19 vaccine RTC in 4 monthswith labs, he would like to get his labs thru the [facility] if worse,he did verbalize his understand ing of the above Coronary arteriosclerosis 96767601 I25.10 CAD s/p CABG s/p PM On coreg 25mg bidOn losartanOn magnesiumO n sotalolOn eliquis 5mg bid Sees Dr Slaughter Essential hypertension 14642685 I10 On coreg 25mg bidOn losartan 50mg 2 tabs daily Not on chlorthali done 25mg dailyNot on metoprolol 25mg daily On sotalol 120mg bidOn magnesium Hypercalcemia 17763077 E 83.52 OV 02/04/2021 :Did see Dr Strange 11/20/2020 , needs to see Dr Berta Strange 05/07/2021 , started on coreg, f/u in 2 months to see if parathyroi dectomy is done OV 10/14/2021 :Dr Strange 08/20/2021 , to get parathyroi dectomy as per his note, he is to see ENT on 10/31/2021 Dr Mary in [facility] OV 02/12/2022 :On cinacalcet 30mg dailySeen by ENT Dr Mary 10/31/2021 , referred to endocrineD id speak with Dr Strange, he will now be referred to another ENT OV 06/25/2022 :Now to get surgery by Dr Sommer in [facility] on 07/07/2022 , states that he is to get a pre op cardiac clearance to be done tomorrow OV 10/22/2022 :S/p surgeryGet labs OV 03/02/2023 : Does well now, get an apt with Dr Strange Gastroesop hageal reflux disease without esophagitis 375156954 K21.9 On PPI, take only as needed Persistent insomnia 1919 91580 G47.09 On lorazepamT marques as needed Thrombocyt openic disorder 592106600 D69.[address] Guzman hematology Urinary incontinence [address] Oneal 11/04/2022 Pain of le ft knee joint 4040313477 44774 M25.562 Daljit COATS, next 11/17/2022 Serum beatriz min B12 below reference range 371980722 R79.89 Vitamin D deficiency 347 73630 E55.9 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 511085548 E11.9 On jardianceO n kerendia 20mg dailyOn metformin 750mg dailyGet labs Low back pain 708841836 M54.50 Get an apt with PTGet xrays Adult heal th examination 922236100 Z00.00 Screening for disorder 305294345 Z13.9 [id number] Yulia watts MD [facility] [place] [address] [facility] [place] [address] 06/01/2023 15:49:59 06/01/2023 16:27:59 Screening - NAD 881204827 Z13.9 C-scope: Refused to do this at this time all risks explained againHe denies any complaints UTD on flu shotUTD pneumonia #13 09/16/17, #23 02/12/2022 Get Tdap, shingles vaccineUTD COVID 19 vaccineGet RSV vaccine and the new COVID 19 vaccine RTC in 4 monthswith labs, he would like to get his labs thru the [facility] if worse,he did verbalize his understand ing of the above Coronary arteriosclerosis 49222833 I25.10 CAD s/p CABG s/p PM On coreg 25mg bidOn losartanOn magnesiumO n sotalolOn eliquis 5mg bid Sees Dr Slaughter 12/11/2022 , next apt in one year Essential hypertension 96834545 I10 On coreg 25mg bidOn losartan 50mg 2 tabs daily Not on chlorthali done 25mg dailyNot on metoprolol 25mg daily On sotalol 120mg bidOn magnesium Hypercalcemia 14213753 E 83.52 OV 02/04/2021 :Did see Dr Strange 11/20/2020 , needs to see Dr Berta Strange 05/07/2021 , started on coreg, f/u in 2 months to see if parathyroi dectomy is done OV 10/14/2021 :Dr Strange 08/20/2021 , to get parathyroi dectomy as per his note, he is to see ENT on 10/31/2021 Dr Mary in [facility] OV 02/12/2022 :On cinacalcet 30mg dailySeen by ENT Dr Mary 10/31/2021 , referred to endocrineD id speak with Dr Strange, he will now be referred to another ENT OV 06/25/2022 :Now to get surgery by Dr Sommer in [facility] on 07/07/2022 , states that he is to get a pre op cardiac clearance to be done tomorrow OV 10/22/2022 :S/p surgeryGet labs OV 03/02/2023 : Does well now, get an apt with Dr Strange OV 06/01/2023 : Keep apt with Dr Strange, get labs Gastroesop hageal reflux disease without esophagitis 063109789 K21.9 On PPI, take only as needed Persistent insomnia 1919 67330 G47.09 On lorazepamT marques as needed Thrombocyt openic disorder 656138748 D69.[address] Guzman hematology Urinary incontinence [address] Oneal 11/04/2022 Pain of le ft knee joint 0921816133 27066 M25.562 Daljit COATS, next 02/16/2023 Serum beatriz min B12 below reference range 724230581 R79.89 Vitamin D deficiency 347 53929 E55.9 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 287092915 E11.9 On jardianceO n kerendia 20mg dailyOn metformin 750mg dailyGet labs Low back pain 197844626 M54.50 Xray LS Spine 03/02/2023 , see caseNow refer to IPC Hyperlipidemia 28522144 E78.5 On atorvastat in 40mg dailyOn vascepaGet labs Administra tion of influenza vaccine 34950578 Z23 [id number] David Kitchen MD [facility] [place] [address] [place] [address] 06/10/2023 11:39:52 06/10/2023 12:33:20 Osteoarthritis of left knee joint 6884705682 35763 M17.12 [id number] Yulia watts MD [facility] [address] [place] [address] 09/28/2023 15:20:53 09/28/2023 16:00:38 Screening - NAD 832057209 Z13.9 C-scope: Refused to do this at this time all risks explained againHe denies any complaints UTD on flu shotUTD pneumonia #13 09/16/17, #23 02/12/2022 Get Tdap, shingles vaccineUTD COVID 19 vaccineGet RSV vaccine and the new COVID 19 vaccine RTC in 4 monthswith labs, he would like to get his labs thru the [facility] if worse,he did verbalize his understand ing of the above Coronary arteriosclerosis 38593241 I25.10 CAD s/p CABG s/p PMECHO 09/02/2023 : Dr Slaughter On coreg 25mg bidOn losartan 50mg 2 tabs dailyOn magnesiumO n sotalolOn eliquis 5mg bid Sees Dr Slaughter 12/11/2022 , next apt in one year Essential hypertension 84324145 I10 On coreg 25mg bidOn losartan 50mg 2 tabs daily Not on chlorthali done 25mg dailyNot on metoprolol 25mg daily On sotalol 120mg bidOn magnesium Hypercalcemia 51785381 E 83.52 OV 02/04/2021 :Did see Dr Strange 11/20/2020 , needs to see Dr Berta Strange 05/07/2021 , started on coreg, f/u in 2 months to see if parathyroi dectomy is done OV 10/14/2021 :Dr Strange 08/20/2021 , to get parathyroi dectomy as per his note, he is to see ENT on 10/31/2021 Dr Mary in [facility] OV 02/12/2022 :On cinacalcet 30mg dailySeen by ENT Dr Mary 10/31/2021 , referred to endocrineD id speak with Dr Strange, he will now be referred to another ENT OV 06/25/2022 :Now to get surgery by Dr Sommer in [place] on 07/07/2022 , states that he is to get a pre op cardiac clearance to be done tomorrow OV 10/22/2022 :S/p surgeryGet labs OV 03/02/2023 : Does well now, get an apt with Dr Strange Keep apt with Dr Strange, get labs Gastroesop hageal reflux disease without esophagitis 426287980 K21.9 On PPI, take only as needed Persistent insomnia 1919 14636 G47.09 On lorazepamT marques as needed Thrombocyt openic disorder 655981026 D69.[address] Guzman hematology Urinary incontinence [address] Oneal 11/04/2022 Pain of le ft knee joint 3783474103 41709 M25.562 Daljit COATS, next 02/16/2023 Serum beatriz min B12 below reference range 569534270 R79.89 Vitamin D deficiency 347 73652 E55.9 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 974019675 E11.9 On jardianceO n kerendia 20mg daily, renewed 09/28/2022 On metformin 750mg dailyGet labs Low back pain 800480860 M54.50 Xray LS Spine 03/02/2023 , see caseNow refer to IPC Hyperlipidemia 78073248 E78.5 On atorvastat in 40mg dailyOn vascepaGet labs [id number] Yulia watts MD [facility] [place] [address] [place] [address] 01/25/2024 14:23:25 01/25/2024 15:14:04 Screening - NAD 760935083 Z13.9 C-scope: Refused to do this at this time all risks explained againHe denies any complaints UTD on flu shotUTD pneumonia #13 09/16/17, #23 02/12/2022 Get Tdap, shingles vaccineUTD COVID 19 vaccineGet RSV vaccine and the new COVID 19 vaccine RTC in 4 monthswith labs, he would like to get his labs thru the [facility] if worse,he did verbalize his understand ing of the above Coronary arteriosclerosis 51042526 I25.10 CAD s/p CABG s/p PMECHO 09/02/2023 : Dr Slaughter On coreg 25mg bidOn losartan 50mg 2 tabs dailyOn magnesiumO n sotalol 120mg bidOn eliquis 5mg bid Sees Dr Slaughter 12/11/2022 , next apt in one year Essential hypertension 41575302 I10 On coreg 25mg bidOn losartan 50mg 2 tabs daily Not on chlorthali done 25mg dailyNot on metoprolol 25mg daily On sotalol 120mg bidNot taking magnesium Hypercalcemia 97702474 E 83.52 OV 02/04/2021 :Did see Dr Strange 11/20/2020 , needs to see Dr Berta Strange 05/07/2021 , started on coreg, f/u in 2 months to see if parathyroi dectomy is done OV 10/14/2021 :Dr Strange 08/20/2021 , to get parathyroi dectomy as per his note, he is to see ENT on 10/31/2021 Dr Mary in [facility] OV 02/12/2022 :On cinacalcet 30mg dailySeen by ENT Dr Mary 10/31/2021 , referred to endocrineD id speak with Dr Strange, he will now be referred to another ENT OV 06/25/2022 :Now to get surgery by Dr Sommer in [place] on 07/07/2022 , states that he is to get a pre op cardiac clearance to be done tomorrow OV 10/22/2022 :S/p surgeryGet labs OV 03/02/2023 : Does well now, get an apt with Dr Strange OV 01/25/2024 :Keep apt with Dr Strange, get labs Gastroesop hageal reflux disease without esophagitis 178187107 K21.9 On PPI, take only as needed Persistent insomnia 1919 75410 G47.09 On lorazepamT marques as needed Thrombocyt openic disorder 004127074 D69.[address] Guzman hematology , referred 01/25/2024 Urinary incontinence [address] Oneal 11/04/2022 Pain of le ft knee joint 8365840425 19124 M25.562 [facility]it [facility] 01/25/2024 Serum beatriz min B12 below reference range 222515517 R79.89 Vitamin D deficiency 347 78771 E55.9 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 572172335 E11.9 On jardianceO n kerendia 20mg daily, renewed 09/28/2022 , 01/25/2024 On metformin 750mg dailyGet labs Low back pain 928595416 M54.50 Xray LS Spine 03/02/2023 , see caseIPC 09/15/2023 , f/u in 3 months Hyperlipidemia 40501587 E78.5 On atorvastat in 40mg daily, increase to 80mg dailyOn vascepa d/c this as he is on eliquisGet labs [id number] Yulia watts MD [facility] [address] [facility] [place] [address] 05/11/2024 16:39:47 05/11/2024 17:26:30 Screening - NAD 620990421 Z13.9 C-scope: Refused to do this at this time all risks explained againHe denies any complaints UTD on flu shotUTD pneumonia #13 09/16/17, #23 02/12/2022 Get Tdap, shingles vaccineUTD COVID 19 vaccineGet RSV vaccine and the new COVID 19 vaccine RTC in 2 monthsWith labs, he would like to get his labs thru the [facility] if worse,he did verbalize his understand ing of the above Coronary arteriosclerosis [id number] I25.10 CAD s/p CABG s/p PMECHO 09/02/2023 : Dr Slaughter On coreg 25mg bidOn losartan 50mg 2 tabs dailyOn magnesiumO n sotalol 120mg bidOn eliquis 5mg bid Sees Dr Slaughter 12/11/2022 , next apt in one year Essential hypertension 48820960 I10 On coreg 25mg bidOn losartan 50mg 2 tabs daily Not on chlorthali done 25mg dailyNot on metoprolol 25mg daily On sotalol 120mg bidNot taking magnesium Hypercalcemia 23764202 E 83.52 OV 02/04/2021 :Did see Dr Strange 11/20/2020 , needs to see Dr Berta Strange 05/07/2021 , started on coreg, f/u in 2 months to see if parathyroi dectomy is done OV 10/14/2021 :Dr Strange 08/20/2021 , to get parathyroi dectomy as per his note, he is to see ENT on 10/31/2021 Dr Mary in [facility] OV 02/12/2022 :On cinacalcet 30mg dailySeen by ENT Dr Mary 10/31/2021 , referred to endocrineD id speak with Dr Strange, he will now be referred to another ENT OV 06/25/2022 :Now to get surgery by Dr Sommer in [facility] on 07/07/2022 , states that he is to get a pre op cardiac clearance to be done tomorrow OV 10/22/2022 :S/p surgeryGet labs OV 03/02/2023 : Does well now, get an apt with Dr Strange OV 01/25/2024 :Keep apt with Dr Strange, get labs OV 05/12/2024 :Dr Strange Gastroesop hageal reflux disease without esophagitis [id number] K21.9 On PPI, take only as needed Persistent insomnia 1919 80588 G47.09 On lorazepamT marques as needed Thrombocyt openic disorder 603682189 D69.[address] Guzman hematology , referred 01/25/2024 Urinary incontinence 165 [address]89[address]32 [address] Oneal 11/04/2022 Pain of le ft knee joint 3493902180 58093 M25.562 [facility] any new referrals 01/25/2024 Serum beatriz min B12 below reference range 898849311 R79.89 Vitamin D deficiency 347 80600 E55.9 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 106282625 E11.9 On jardianceO n kerendia 20mg daily, renewed 05/11/2024 On metformin 750mg dailyGet labs Low back pain 088804716 M54.50 Xray LS Spine 03/02/2023 , see [facility] 09/15/2023 , f/u in 3 months OV 04/11/2024 :Does not want to see IPC, will get a referral Hyperlipidemia 20597486 E78.5 On atorvastat in 40mg daily, increase to 80mg dailyOn vascepa d/c this as he is on eliquisGet labs Unsteady when walking 22 527663 R26.89 Get a walker [id number] Yulia watts MD [facility] [address] [place] [address] 07/20/2024 15:11:38 07/20/2024 16:11:48 Adult health examination 138866432 Z00.00 Screening for disorder 198388786 Z13.9 Screening - NAD 68287991 3 Z13.9 C-scope: Refused to do this at this time all risks explained againHe denies any complaints UTD on flu shotUTD pneumonia #13 09/16/17, #23 02/12/2022 Get Tdap, shingles vaccineUTD COVID 19 vaccineGet RSV vaccine and the new COVID 19 vaccine RTC in 2 monthsWith labs, he would like to get his labs thru the [facility] if worse,he did verbalize his understand ing of the above Coronary arteriosclerosis 51084013 I25.10 CAD s/p CABG s/p PMECHO 09/02/2023 : Dr Slaughter On coreg 25mg bidOn losartan 50mg 2 tabs dailyOn magnesiumO n sotalol 120mg bidOn eliquis 5mg bid Dr Slaughter 12/11/2022 , next apt in one yearDr Slaughter 11/27/2023 Essential hypertension 47014719 I10 On coreg 25mg bidOn losartan 50mg 2 tabs daily Not on chlorthali done 25mg dailyNot on metoprolol 25mg daily On sotalol 120mg bidNot taking magnesium Hypercalcemia 65193595 E 83.52 OV 02/04/2021 :Did see Dr Strange 11/20/2020 , needs to see Dr Berta Strange 05/07/2021 , started on coreg, f/u in 2 months to see if parathyroi dectomy is done OV 10/14/2021 :Dr Strange 08/20/2021 , to get parathyroi dectomy as per his note, he is to see ENT on 10/31/2021 Dr Mary in [facility] OV 02/12/2022 :On cinacalcet 30mg dailySeen by ENT Dr Mary 10/31/2021 , referred to endocrineD id speak with Dr Strange, he will now be referred to another ENT OV 06/25/2022 :Now to get surgery by Dr Sommer in [facility] on 07/07/2022 , states that he is to get a pre op cardiac clearance to be done tomorrow OV 10/22/2022 :S/p surgeryGet labs OV 03/02/2023 : Does well now, get an apt with Dr Strange OV 01/25/2024 :Keep apt with Dr Strange, get labs OV 05/12/2024 :Dr Strange OV 07/20/2024 :See Dr Strange Gastroesop hageal reflux disease without esophagitis 799990452 K21.9 On PPI, take only as needed Persistent insomnia 1919 60088 G47.09 On lorazepamT marques as needed Urinary incontinence [address] Oneal 11/04/2022 Pain of le ft knee joint 2727583146 74868 M25.562 [facility] any new referrals 01/25/2024 Serum beatriz min B12 below reference range 216678023 R79.89 Vitamin D deficiency 347 88126 E55.9 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 Unintentio nal weight loss 259759315 R63.4 Worry about cover malignancy , labs show anemia, needs to see oncology, referred Dr Guzman Administra tion of influenza vaccine 44565157 Z23 [id number] Yulia watts MD [facility] [address] [place] [address] 08/17/2024 16:32:45 08/17/2024 17:41:38 Screening - NAD 893296436 Z13.9 C-scope: Refused to do this at this time all risks explained againHe denies any complaints UTD on flu shotUTD pneumonia #13 09/16/17, #23 02/12/2022 Get Tdap, shingles vaccineUTD COVID 19 vaccineGet RSV vaccine and the new COVID 19 vaccine RTC in 2 monthsWith labs, he would like to get his labs thru the [facility] if worse,he did verbalize his understand ing of the above Coronary arteriosclerosis 09149183 I25.10 CAD s/p CABG s/p PMECHO 09/02/2023 : Dr Slaughter On coreg 25mg bidOn losartan 50mg 2 tabs dailyOn magnesiumO n sotalol 120mg bidOn eliquis 5mg bid Dr Slaughter 12/11/2022 , next apt in one yearDr Slaughter 11/27/2023 Essential hypertension 85981514 I10 On coreg 25mg bidOn losartan 50mg 2 tabs daily Not on chlorthali done 25mg dailyNot on metoprolol 25mg daily On sotalol 120mg bidNot taking magnesium Hypercalcemia 30004020 E 83.52 OV 02/04/2021 :Did see Dr Strange 11/20/2020 , needs to see Dr Berta Strange 05/07/2021 , started on coreg, f/u in 2 months to see if parathyroi dectomy is done OV 10/14/2021 :Dr Strange 08/20/2021 , to get parathyroi dectomy as per his note, he is to see ENT on 10/31/2021 Dr Mary in [facility] OV 02/12/2022 :On cinacalcet 30mg dailySeen by ENT Dr Mary 10/31/2021 , referred to endocrineD id speak with Dr Strange, he will now be referred to another ENT OV 06/25/2022 :Now to get surgery by Dr Sommer in [facility] on 07/07/2022 , states that he is to get a pre op cardiac clearance to be done tomorrow OV 10/22/2022 :S/p surgeryGet labs OV 03/02/2023 : Does well now, get an apt with Dr Strange OV 01/25/2024 :Keep apt with Dr Strange, get labs OV 05/12/2024 :Dr Strange OV 07/20/2024 :See Dr Strnage OV 08/17/2024 :Mild pitting edema, will discuss with Dr Espinosa well, keep apt with Dr Strange Gastroesop hageal reflux disease without esophagitis 002178144 K21.9 On PPI, take only as needed Persistent insomnia 1919 57380 G47.09 On lorazepamT marques as needed Urinary incontinence [address] Oneal 11/04/2022 Pain of le ft knee joint 2984414012 70922 M25.562 [facility] any new referrals 01/25/2024 Serum beatriz min B12 below reference range 651534357 R79.89 Vitamin D deficiency 347 05417 E55.9 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 756120100 E11.9 On jardianceO n kerendia 20mg daily, renewed 05/11/2024 On metformin 750mg dailyGet labs Low back pain 175280772 M54.50 Xray LS Spine 03/02/2023 , see [facility] 09/15/2023 , f/u in 3 months OV 04/11/2024 :Does not want to see IPC, will get a referral OV 07/20/2024 :Get a referral to pain management Hyperlipidemia 82660393 E78.5 On atorvastat in 40mg dailyOn vascepa d/c this as he is on eliquisGet labs Unsteady when walking 22 530206 R26.89 Get a walker will be delivered today 07/20/2024 Anemia 867590939 D64.9 On iron and vit cDr Ebie 08/05/[address] Guzman on 09/01/2024 at 11.30am Unintentio nal weight loss 084400717 R63.4 Worry about cover malignancy , labs show anemia, needs to see oncology, see Dr Guzman 09/01/2024 Hypoproteinemia 1054322 E88.09 Encouraged more protien in diet Health Concerns Section Related Observation LastModified by Organization Detai ls LastModified Time None Recorded Concern Status LastModified by Organization Details LastModified Time None Recorded Advance Directives Directive Y: Payers Encounter Date Sequence Insurance Name Policy Number Policy Patton Covered Member ID Patton Member ID Guarantor Name 09/28/2023 1 [place] Jose Manuel Kinney Lidiaoy [id number] 33 Jose Manuel Kinney Janielroy 09/28/2023 2 [place] [id number] Jose Manuel Kinney Lidiaoy [id number] Jose Manuel Kinney Janielroy 01/25/2024 1 [place] Jose Manuel Kinney Lidiaoy [id number] 33 Jose Manuel Kinney McIlroy 01/25/2024 2 [id number] Jose Manuel Kinney Lidiaoy [id number] Jose Manuel Nirmal McIlroy 05/11/2024 1 [place] Jose Manuel Kinney Lidiaoy [id number] 33 Jose Manuel Kinney McIlroy 05/11/2024 2 [id number] Jose Manuel Kinney Lidiaoy [id number] Jose Manuel Nirmal Limalroy 07/20/2024 1 [place] Jose Manuel Flyod [id number] 33 Jose Manuel Floyd 07/20/2024 2 [id number] Jose Manuel Floyd [id number] Jose Manuel Floyd 08/17/2024 1 [place] Jose Manuel Floyd [id number] 33 Jose Manuel Floyd 08/17/2024 2 [id number] Jose Manuel Floyd [id number] Jose Manuel Floyd Notes Date Note Type Note Provider Name and Address Organization Details Recorded Time 09/28/2023 text/html Here to meagan MEEKSD Dr White Hx:HLDDMIIGERDInsomni aReviewed social family and surgical historyHere to discuss above and get labs, doing well otherwiseOV 07/30/17:Here to discuss the labs, he states that he is not very willing to start on any insulinHe is doing well otherwiseOV 09/16/17:Here for his routine aptHe states that he is doing wellOV 01/13/18:Here for his routine aptHe states that he is doing well at this timeHe states that he did do the labs with [facility] on 12/16/17OV 06/16/18:Here for his routine aptHe states that he is doing wellHe did do the labsOV 09/15/18:Here for his routine aptFeels that he is doing well at this timeHe did do the labs on 09/06/18OV 12/818:Here for his routine aptFeels wellHe did do the labs on 12/10/18He is now going to get R TKR OV 03/21/19:Here for his routine aptHe states that he is doing well at this timeHe did have labs done on 02/03/19 when he was in the hospital as per Dr Kitchen, he was noted to have some post op delerium and did have a CT head done on 01/30/19He states that he did see Dr Bright and was told that his knee is healed well, he feels that the knee is still 'weak' but is getting better, he is doing PT at homeOV 09/19/2019:Here for his routine aptHe did do the labsHe feels well todayHere for his MWVOV 03/19/2020;Here for his routine aptHe is doing wellHe did do the labsHe has seen Dr Kitchen for his knee OV 09/17/2020;Here for his routine aptHe feels wellHe did do the labs and is here to review theseHe states that he has been eating more and would 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 get a tooling engineer 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 OV 02/04/2021:Here for his routine aptHe states that he is been doing very well, but last Thursday he did trip and fall while taking his trash out on the driveway, he did hit his head and had a small abrasion, states that he did not have LOC, but felt 'dazed'No other complaints and no headaches todayHe did do the labsOV 06/03/2021:Here for his routine aptHe is doing wellNo new labs at this timeHe is now to get parathyroid surgeryOV 10/14/2021:Here for his routine aptHe is feeling wellHe did do the labs on 09/30/2021 OV 02/12/2022:Here for his routine apt and MWVHe is doing wellHe did do the labs on 2OV 06/25/2022:Here for his f/u apt, he is doing well, he did do the labs on 06/19/2022 OV 10/22/2022:Here for his f/u apt, he did do the labs and has had his parathyroid surgery OV 06/01/2023: Here for his f/u apt, he is doing very well today Yulia Jackson MD [address], [address], [place], [address], [place] [facility] [employer] [facility] 09/28/2023 18:44:03 01/25/2024 text/html Here to meagan BrandthipPast Hx:HLDDMIIGERDInsomni aReviewed social family and surgical historyHere to discuss above and get labs, doing well otherwiseOV 07/30/17:Here to discuss the labs, he states that he is not very willing to start on any insulinHe is doing well otherwiseOV 09/16/17:Here for his routine aptHe states that he is doing wellOV 01/13/18:Here for his routine aptHe states that he is doing well at this timeHe states that he did do the labs with [facility] on 12/16/17OV 06/16/18:Here for his routine aptHe states that he is doing wellHe did do the labsOV 09/15/18:Here for his routine aptFeels that he is doing well at this timeHe did do the labs on 09/06/18OV 12/818:Here for his routine aptFeels wellHe did do the labs on 12/10/18He is now going to get R TKR OV 03/21/19:Here for his routine aptHe states that he is doing well at this timeHe did have labs done on 02/03/19 when he was in the hospital as per Dr Kitchen, he was noted to have some post op delerium and did have a CT head done on 01/30/19He states that he did see Dr Bright and was told that his knee is healed well, he feels that the knee is still 'weak' but is getting better, he is doing PT at homeOV 09/19/2019:Here for his routine aptHe did do the labsHe feels well todayHere for his MWVOV 03/19/2020;Here for his routine aptHe is doing wellHe did do the labsHe has seen Dr Kitchen for his knee OV 09/17/2020;Here for his routine aptHe feels wellHe did do the labs and is here to review theseHe states that he has been eating more and would now like to get a tooling engineer apt OV 02/04/2021:Here for his routine aptHe states that he is been doing very well, but last Thursday he did trip and fall while taking his trash out on the driveway, he did hit his head and had a small abrasion, states that he did not have LOC, but felt 'dazed'No other complaints and no headaches todayHe did do the labsOV 06/03/2021:Here for his routine aptHe is doing wellNo new labs at this timeHe is now to get parathyroid surgeryOV 10/14/2021:Here for his routine aptHe is feeling wellHe did do the labs on 09/30/2021 OV 02/12/2022:Here for his routine apt and MWVHe is doing wellHe did do the labs on 02/04/2022V 06/25/2022:Here for his f/u apt, he is doing well, he did do the labs on 06/19/2022 OV 10/22/2022:Here for his f/u apt, he did do the labs and has had his parathyroid surgery OV 06/01/2023: Here for his f/u apt, he is doing very well today OV 01/25/2024: Here for his routine apt, he is doing very well today, states that he did see [facility]PC and is again contemplating getting a 'shot' in his back, he also has L knee pain has seen Dr Kitchen in the past, but declines any referrals today, states that he puts on icy hot and this helps Yulia Jackosn MD [address] [facility], [facility] [address], [place], [address], [facility] [email or web address] 01/25/2024 15:14:50 05/11/2024 text/html Here to meagan Armendariz PMD Dr BrandthipPast Hx:HLDDMIIGERDInsomni aReviewed social family and surgical historyHere to discuss above and get labs, doing well otherwiseOV 07/30/17:Here to discuss the labs, he states that he is not very willing to start on any insulinHe is doing well otherwiseOV 09/16/17:Here for his routine aptHe states that he is doing wellOV 01/13/18:Here for his routine aptHe states that he is doing well at this timeHe states that he did do the labs with [facility] on 12/16/17OV 06/16/18:Here for his routine aptHe states that he is doing wellHe did do the labsOV 09/15/18:Here for his routine aptFeels that he is doing well at this timeHe did do the labs on 09/06/18OV 12/818:Here for his routine aptFeels wellHe did do the labs on 12/10/18He is now going to get R TKR OV 03/21/19:Here for his routine aptHe states that he is doing well at this timeHe did have labs done on 02/03/19 when he was in the hospital as per Dr Kitchen, he was noted to have some post op delerium and did have a CT head done on 01/30/19He states that he did see Dr Bright and was told that his knee is healed well, he feels that the knee is still 'weak' but is getting better, he is doing PT at homeOV 09/19/2019:Here for his routine aptHe did do the labsHe feels well todayHere for his MWVOV 03/19/2020;Here for his routine aptHe is doing wellHe did do the labsHe has seen Dr Kitchen for his knee OV 09/17/2020;Here for his routine aptHe feels wellHe did do the labs and is here to review theseHe states that he has been eating more and would now like to get a tooling engineer apt OV 02/04/2021:Here for his routine aptHe states that he is been doing very well, but last Thursday he did trip and fall while taking his trash out on the driveway, he did hit his head and had a small abrasion, states that he did not have LOC, but felt 'dazed'No other complaints and no headaches todayHe did do the labsOV 06/03/2021:Here for his routine aptHe is doing wellNo new labs at this timeHe is now to get parathyroid surgeryOV 10/14/2021:Here for his routine aptHe is feeling wellHe did do the labs on 09/30/2021 OV 02/12/2022:Here for his routine apt and MWVHe is doing wellHe did do the labs on 2OV 06/25/2022:Here for his f/u apt, he is doing well, he did do the labs on 06/19/2022 OV 10/22/2022:Here for his f/u apt, he did do the labs and has had his parathyroid surgery OV 06/01/2023: Here for his f/u apt, he is doing very well today OV 01/25/2024: Here for his routine apt, he is doing very well today, states that he did see [facility]PC and is again contemplating getting a 'shot' in his back, he also has L knee pain has seen Dr Kitchen in the past, but declines any referrals today, states that he puts on icy hot and this helps OV 05/12/2024: Tele visitAgreeable to do the visitStill has the LBP and knee pain, this is why he would like to do a televisit, today states that the LBP is much better, no N/T or weakness, but he would like to get a walker, he also would like another referral to pain management Yulia Jackson MD [address] [facility], [address], [place], [address], [facility] 05/11/2024 17:50:10 07/20/2024 text/html Here to meagan Armendariz PMD Dr White Hx:HLDDMIIGERDInsomni aReviewed social family and surgical historyHere to discuss above and get labs, doing well otherwiseOV 07/30/17:Here to discuss the labs, he states that he is not very willing to start on any insulinHe is doing well otherwiseOV 09/16/17:Here for his routine aptHe states that he is doing wellOV 01/13/18:Here for his routine aptHe states that he is doing well at this timeHe states that he did do the labs with [facility] on 12/16/17OV 06/16/18:Here for his routine aptHe states that he is doing wellHe did do the labsOV 09/15/18:Here for his routine aptFeels that he is doing well at this timeHe did do the labs on 09/06/18OV 12/818:Here for his routine aptFeels wellHe did do the labs on 12/10/18He is now going to get R TKR OV 03/21/19:Here for his routine aptHe states that he is doing well at this timeHe did have labs done on 02/03/19 when he was in the hospital as per Dr Kitchen, he was noted to have some post op delerium and did have a CT head done on 01/30/19He states that he did see Dr Bright and was told that his knee is healed well, he feels that the knee is still 'weak' but is getting better, he is doing PT at homeOV 09/19/2019:Here for his routine aptHe did do the labsHe feels well todayHere for his MWVOV 03/19/2020;Here for his routine aptHe is doing wellHe did do the labsHe has seen Dr Kitchen for his knee OV 09/17/2020;Here for his routine aptHe feels wellHe did do the labs and is here to review theseHe states that he has been eating more and would now like to get a tooling engineer apt OV 02/04/2021:Here for his routine aptHe states that he is been doing very well, but last Thursday he did trip and fall while taking his trash out on the driveway, he did hit his head and had a small abrasion, states that he did not have LOC, but felt 'dazed'No other complaints and no headaches todayHe did do the labsOV 06/03/2021:Here for his routine aptHe is doing wellNo new labs at this timeHe is now to get parathyroid surgeryOV 10/14/2021:Here for his routine aptHe is feeling wellHe did do the labs on 09/30/2021 OV 02/12/2022:Here for his routine apt and MWVHe is doing wellHe did do the labs on 2OV 06/25/2022:Here for his f/u apt, he is doing well, he did do the labs on 06/19/2022 OV 10/22/2022:Here for his f/u apt, he did do the labs and has had his parathyroid surgery OV 06/01/2023: Here for his f/u apt, he is doing very well today OV 01/25/2024: Here for his routine apt, he is doing very well today, states that he did see [facility] and is again contemplating getting a 'shot' in his back, he also has L knee pain has seen Dr Kitchen in the past, but declines any referrals today, states that he puts on icy hot and this helps OV 05/12/2024: Tele visitAgreeable to do the visitStill has the LBP and knee pain, this is why he would like to do a televisit, today states that the LBP is much better, no N/T or weakness, but he would like to get a walker, he also would like another referral to pain management OV 07/20/2024: Here for his f/u apt, he states that he has done the labs, he has not yet got his walker, he also has noted unintentional weight loss Yulia Jackson MD [address], [address], [place], [address], [place] [facility] 07/31/2024 15:22:34 08/17/2024 text/html Here to meagan Armendariz PMD Dr BrandthipPast Hx:HLDDMIIGERDInsomni aReviewed social family and surgical historyHere to discuss above and get labs, doing well otherwiseOV 07/30/17:Here to discuss the labs, he states that he is not very willing to start on any insulinHe is doing well otherwiseOV 09/16/17:Here for his routine aptHe states that he is doing wellOV 01/13/18:Here for his routine aptHe states that he is doing well at this timeHe states that he did do the labs with [facility] on 12/16/17OV 06/16/18:Here for his routine aptHe states that he is doing wellHe did do the labsOV 09/15/18:Here for his routine aptFeels that he is doing well at this timeHe did do the labs on 09/06/18OV 12/818:Here for his routine aptFeels wellHe did do the labs on 12/10/18He is now going to get R TKR OV 03/21/19:Here for his routine aptHe states that he is doing well at this timeHe did have labs done on 02/03/19 when he was in the hospital as per Dr Kitchen, he was noted to have some post op delerium and did have a CT head done on 01/30/19He states that he did see Dr Bright and was told that his knee is healed well, he feels that the knee is still 'weak' but is getting better, he is doing PT at homeOV 09/19/2019:Here for his routine aptHe did do the labsHe feels well todayHere for his MWVOV 03/19/2020;Here for his routine aptHe is doing wellHe did do the labsHe has seen Dr Kitchen for his knee OV 09/17/2020;Here for his routine aptHe feels wellHe did do the labs and is here to review theseHe states that he has been eating more and would now like to get a tooling engineer apt OV 02/04/2021:Here for his routine aptHe states that he is been doing very well, but last Thursday he did trip and fall while taking his trash out on the driveway, he did hit his head and had a small abrasion, states that he did not have LOC, but felt 'dazed'No other complaints and no headaches todayHe did do the labsOV 06/03/2021:Here for his routine aptHe is doing wellNo new labs at this timeHe is now to get parathyroid surgeryOV 10/14/2021:Here for his routine aptHe is feeling wellHe did do the labs on 09/30/2021 OV 02/12/2022:Here for his routine apt and MWVHe is doing wellHe did do the labs on 02/04/2022V 06/25/2022:Here for his f/u apt, he is doing well, he did do the labs on 06/19/2022 OV 10/22/2022:Here for his f/u apt, he did do the labs and has had his parathyroid surgery OV 06/01/2023: Here for his f/u apt, he is doing very well today OV 01/25/2024: Here for his routine apt, he is doing very well today, states that he did see [facility] and is again contemplating getting a 'shot' in his back, he also has L knee pain has seen Dr Kitchen in the past, but declines any referrals today, states that he puts on icy hot and this helps OV 05/12/2024: Tele visitAgreeable to do the visitStill has the LBP and knee pain, this is why he would like to do a televisit, today states that the LBP is much better, no N/T or weakness, but he would like to get a walker, he also would like another referral to pain management OV 07/20/2024: Here for his f/u apt, he states that he has done the labs, he has not yet got his walker, he also has noted unintentional weight loss OV 08/17/2024: Here for his routine apt, he is doing well now, he did see hematology Dr Nielsen who was covering for Dr Guzman, still feels that he is losing weight, did have labs done by the press puller Yulia Jackson MD [address] [place] [address], [facility] [address], [place], [address], [place] - [facility] 08/17/2024 17:26:38
--- OUTSIDE RECORDS SUMMARY | 2024-10-31 18:24 | XMS_ITS | Clinical Summary ---
Author Organization [facility] Address [address] [place] [address] Care Team Providers Care Work Order Clerk Name Role Phone Ayo Jackson MD Primary Care Provide r Garrison Mary MD Unavailable [phone] Allergies Active Allergy Reactions Criticality Noted Date Comments Amiodarone Mental status changes Reaction: CONFUSION, Medications magnesium amino acid chelate 100 mg tablet Take 400 mg by mouth daily Active apixaban (ELIQUIS) 5 mg tablet Take 5 mg by mouth 2 (two) times a day 1 Active atorvastatin (LIPITOR) 40 mg tablet Take 40 mg by mouth nightly 8 Active carvediloL (COREG) 25 mg tablet Take 25 mg by mouth 2 (two) times a day with meals 1 Active cholecalciferol (VITAMIN D-3) 25 mcg (1,000 unit) tablet Take 1 capsule by mouth daily 1 Active cyanocobalamin (Vitamin B-12) 1,000 mcg tablet Take 1,000 mcg by mouth daily 0 Active ferrous sulfate 325 mg (65 mg of elemental iron) tablet Take 65 mg of elemental iron by mouth daily with breakfast 0 Active icosapent ethyL (VASCEPA) 1 gram capsule Take 2 g by mouth 2 (two) times a day 1 Active LORazepam (ATIVAN) 1 mg tablet lorazepam 1 mg tablet TAKE ONE TABLET BY MOUTH AT BEDTIME NEEDED NO ALCOHOL, DRIVING OR WITH OTHER SEDATING MEDICATIONS 5 Active losartan (COZAAR) 50 mg tablet Take 50 mg by mouth 2 (two) times a day [address] (PROTONIX) 40 mg EC tablet Take 40 mg by mouth nightly 9 Active sotaloL (BETAPACE) 120 mg tablet Take 120 mg by mouth 2 (two) times a day 8 Active metFORMIN XR (GLUCOPHAGE XR) 750 mg 24 hr tablet 750 mg nightly 2 Active lancets misc Accu-Chek Fastclix Lancet Drum USE TO TEST BLOOD SUGAR ONCE A DAY Active blood glucose diagnostic (Accu-Chek SmartView Test Strip) strip Accu-Chek SmartView Test Strips test blood sugar DAILY Active cinacalcet (SENSIPAR) 30 mg tablet Take 30 mg by mouth 3 (three) times a week Take on - 2 Active Jardiance 10 mg tablet Take 10 mg by mouth daily 2 Active finerenone (Kerendia) 20 mg tablet Take 20 mg by mouth daily 2 Active cholecalciferol (VITAMIN D-3) 2000 unit tablet Take 2,000 Units by mouth daily Active calcium carbonate (OS-JOCELINE) 1,250 mg (500 mg elemental) tablet Take 1 tablet (1,250 mg total) by mouth 3 (three) times a day for 7 days, THEN 1 tablet (1,250 mg total) 2 (two) times a day for 7 days, THEN 1 tablet (1,250 mg total) daily for 7 days. 42 tablet 2 Active oxyCODONE (ROXICODONE) 5 mg immediate release tabletIndicatio ns:Pain Take 1 tablet (5 mg total) by mouth every 4 (four) hours as needed for pain 20 tablet 2 Active Active Problems Problem Noted Date Diagnosed Date Vitamin D deficiency 11/08/2021 Hyperparathyroidism 07/15/2021 Assessment & Plan (05/12/2022 3:55 PM CDT): Given his target organ damage, e.g. osteoporosis, parathyroidectomy is indicated Patient has appointment with neck surgeon, Dr. Sommer in 2 weeks I have requested a parathyroid SPECT scan I also did a thyroid ultrasound today that does not show any significant thyroid abnormalities. Assessment & Plan (11/08/2021 12:45 PM CDT): Differential would be primary versus secondary I requested laboratory workup, including PTH, serum calcium, 25 hydroxy vitamin- D and serum phosphorus Also 24 hour urine collection for calcium was requested We need to also assess any effects on bone with a bone density DEXA scan was requested I tried to explain this to the patient and he seems to understand Unless there is a excessive hypercalciuria or significant bone density loss or significantly elevated serum calcium, the approach will most likely conservative with serum calcium monitoring Assessment & Plan (07/15/2021 3:48 PM MECHANICAL DESIGN TECHNICIAN): Parathyroid hormone level, call with results, consider referral to Head [facility] surgery at [facility] Surgical History Surgery Date Site/Laterality Comments BYPASS GRAFT PROSTATE SURGERY KNEE SURGERY CARDIAC PACEMAKER PLACEMENT Medical History Medical History Date Comments Cancer (HCC) Cataract HTN (hypertension) Diabetes (HCC) Parathyroid adenoma Social History Tobacco Use Types Packs/Day Years Used Date Smoking Tobacco: Former Cigarettes Smokeless Tobacco: Never Tobacco Cessation:Counseling Given: Not Answered Comments:Quit in 2001 AUDIT-C Answer Date Recorded Q1: How often do you have a drink containing alc ohol? Monthly or less 10/31/2021 Average Number of Drinks Not on file 022 Frequency of Binge Drinking Not on file 10/09 PHQ-2 Answer Date Recorded PHQ-2 Total Score (If total score is 3 or more points, staff should administer the PHQ-9) 0 05/12/2022 Sex and Gender Information Value Date Recorded Sex Assigned at Not on file Legal Sex Male 6:41 PM MECHANICAL DESIGN TECHNICIAN Gender Identity Not on file Sexual Orientation Not on file Obstetrics History Last Filed Vital Signs Vital Sign Reading Time Taken Comments Blood Pressure 124/76 07/08/2022 7:43 AM MECHANICAL DESIGN TECHNICIAN Pulse 79 07/08/2022 7:43 AM MECHANICAL DESIGN TECHNICIAN Temperature 36.2 C (97.2 F) 07/08/2022 7:43 AM MECHANICAL DESIGN TECHNICIAN Respiratory Rate 16 07/08/2022 7:43 AM MECHANICAL DESIGN TECHNICIAN Oxygen Saturation 94% 07/08/2022 7:43 AM MECHANICAL DESIGN TECHNICIAN Inhaled Oxygen Concentration - - Weight 82.1 kg (181 lb) 07/07/2022 7:13 AM MECHANICAL DESIGN TECHNICIAN Height 185.4 cm (6' 1 ) 07/07/2022 7:13 AM MECHANICAL DESIGN TECHNICIAN Body Mass Index 23.88 07/07/2022 7:13 AM MECHANICAL DESIGN TECHNICIAN Plan of Treatment Health Maintenance Due Date Last Done Comments DTaP/Tdap/Td Vaccine (1 - Tdap) 1955 Hepatitis B Screening 1962 Zoster Vaccine (1 of 2) 1994 Well Visit 65+ 2009 Depression Screening 05/12/2023 05/12/2022, 11/09/19 22 Fall Risk Assessment 07/08/2023 07/08/2022 Covid-19 Vaccine (2023-2 5 season) 2024 07/27/2021, 11/10/2020, 10/20/2020 Influenza Vaccine (#1) 2024 , 05/16/2020, 04/10/2020, Additional history exists Pneumococcal vaccine 65+ Completed 02/12/2022, 02/2018 Medical Devices Implanted Type Area Lace Weaver Device Identifier Shelf Expiration Date Model / Serial / Lot [employer] Sls-Clip Ligate Triangular Wire Leslee Groove Small [employer] Clip Latex Free [id number] - [id number] Implanted:Qty: 3 on 07/07/2022 by Gavin Sommer MD at [facility] [employer] [id number] / / Insurance MEDICARE [facility] MEDICARE [facility] MEDICARE [facility] Advance Directives For more information, please contact: [phone] * Full Code (Latest Code Status on File) Date Activated Date Inactivated Comments 07/07/2022 12:53 PM 07/08/2022 3:25 PM Care Teams Work Order Clerk Relationship Specialty Start Date End Date Ayo Jackson MD [address] [facility] [address] [place] [address] PCP - General Internal Medicine 05/08/21 Garrison Mary MD [address] [facility] [address] [place] [address] Consulting Physician Otolaryngology 11/05/21
--- OUTSIDE RECORDS SUMMARY | 2024-10-31 18:24 | XMS_ITS | Clinical Summary ---
Author Organization [facility] Address [address] [place] [address] Care Team Providers Care Insolvency Consultant Name Role Phone Gege Jackson MD Primary Care Provider Allergies Active Allergy Reactions Criticality Noted Date Comments Amiodarone Other (See Comments) High 07/18/2013 Change Mental status Reaction: CONFUSION, Medications atorvastatin (LIPITOR) 40 mg tablet 40 mg daily . 8 Active ergocalciferol (VITAMIN D2) 50,000 unit capsule Take 50,000 Units by mouth every 7 days . 8 Active glimepiride (AMARYL) 2 mg tablet 2 mg daily with breakfast . 9 Active LORazepam (ATIVAN) 1 mg tablet 1 mg every 6 hours as needed . 9 Active losartan (COZAAR) 50 mg tablet Take 50 mg by mouth daily . 9 Active metoprolol tartrate (LOPRESSOR) 25 mg tablet Take 25 mg by mouth 2 times daily . 8 Active pantoprazole (PROTONIX) 40 mg Tablet, Delayed Release (E.C.) Take 40 mg by mouth daily . 9 Active sotalol (BETAPACE) 120 mg Tablet Take 120 mg by mouth daily . 8 Active ferrous sulfate 325 mg (65 mg iron) tablet Take 325 mg by mouth daily. Active cyanocobalamin 1,000 mcg Tablet Take 1,000 mcg by mouth daily. Active apixaban (Eliquis) 5 mg tablet Take by mouth 2 times daily. Active psyllium husk (METAMUCIL ORAL) Take by mouth. Activ e Fish Oil-[place]-3 Fatty Acids 360-1,200 mg Capsule Take 1 Capsule by mouth. Active chlorthalidone (HYGROTON) 25 mg tablet Take 25 mg by mouth daily. Active magnesium oxide 400 mg magnesium Tablet magnesium 400 mg once daily Active iwahg-7-nnn-epa -dpa-fish oil 1,050-1,200 mg Capsule [place] 3 with Fish Oil 1200mg 1 Daily Active metFORMIN (GLUCOPHAGE XR) 750 mg Extended Release 24 hour tablet Take 750 mg by mouth daily with breakfast. 2 Active icosapent ethyL (VASCEPA) 1 gram Capsule Take 1 Gram by mouth 2 times daily with meals. 3 Active Kerendia 20 mg Tablet Take 20 mg by mouth daily. 2 Active Jardiance 10 mg tablet Take 10 mg by mouth daily in the morning. 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 Encounters Date Type Department Care Team Description 09/28/2024 External Device Data [facility] ABSTRACTION Provider, Abstract 09/28/2024 External Device Data [facility] ABSTRACTION Provider, Abstract 09/07/2024 External Device Data [facility]STRACTION Provider, Abstract 09/01/2024 External Device Data [facility]STRACTION Provider, Abstract 08/18/2024 Orders Only [facility] - [address] [place] [address] Dylon Guzman MD 08/17/2024 Orders Only [facility] - [address] [place] [address] Dylon Guzman MD 08/12/2024 Orders Only [facility] - [address] [place] [address] Dylon Guzman MD 08/09/2024 External Device Data [facility] ABSTRACTION Provider, Abstract 08/05/2024 11:30 AM RECEIVING CLERK Office Visit [facility] - [address] [place] [address] Missy Nielsen MD Chronic anemia (Primary Dx); History of prostate cancer from Last 3 Months Family History Medical History Relation Name Comments Heart Attack Father Stroke Father Diabetes Mother Kidney Disease Mother Relation Name Status Comments Brother 1 Alive Brother 2 Alive Father Mother Sister 1 Alive Sister 2 Alive Sister 3 Alive Sister 4 Alive Sister 5 Alive Sister 6 Social History Tobacco Use Types Packs/Day Years Used Date Smoking Tobacco: Former Cigarettes 1 30 0 09/22/1966 - 09/22/1996 Smokeless Tobacco: Never Alcohol Use Standard Drinks/Week Comments No 0 (1 standard drink = 0.6 oz pur e alcohol) Sex and Gender Information Value Date Recorded Sex Assigned at Not on file Legal Sex Male 10:52 PM CDT Gender Identity Not on file Sexual Orientation Not on file Last Filed Vital Signs Vital Sign Reading Time Taken Comments Blood Pressure 123/78 08/05/2024 11:41 AM RECEIVING CLERK Pulse 76 08/05/2024 11:41 AM RECEIVING CLERK Temperature 36.9 C (98.4 F) 08/05/2024 11:41 AM RECEIVING CLERK Respiratory Rate 15 08/05/2024 11:4 1 AM RECEIVING CLERK Oxygen Saturation 96% 08/05/2024 11: 41 AM RECEIVING CLERK Inhaled Oxygen Concentration - - Weight 81.5 kg (179 lb 9.6 oz) 08/05/2024 11:41 AM RECEIVING CLERK Paient stated that this is the correct weight Height 182.9 cm (6') 08/05/2024 11:41 AM RECEIVING CLERK Body Mass Index 24.36 08/05/2024 11:41 AM RECEIVING CLERK Plan of Treatment Health Maintenance Due Date Last Done Comments DIABETES ANNUAL FOOT EXAM 1962 DIABETES MICROALBUMIN ANNUAL SCREEN 1962 LDL CHOLESTEROL ANNUAL 1962 RSV VACCINE (60+ or ) (1 - 1-dose 75+ series) 2019 DIABETES ANNUAL RETINAL EXAM 04/27/2022, 01/10/2019, 12/24/2017, Additional history exists COVID-19 Vaccine (2023-2 5 season) 2024 01/19/2024, 05/22/2022, 05/21/2022, Additional history exists DIABETES HBA1C Q 6 MONTHS 02/24/20252024, 01/22/2021, 09/11/2020, Additional history exists DTAP/TDAP/TD VACCINES (3 - T d or Tdap) 08/26/2034 08/26/2024, 02/15/2007 ZOSTER VACCINE Completed 07/12/2018, 10/2017, 03/23/2009 PNEUMOCOCCAL VACCINE 50+ YEARS Completed 0 02/12/2022, 09/16/2017, 05/13/2005 INFLUENZA VACCINE Completed 07/20/2024, , 05/21/2022, Additional history exists Procedures Procedure Name Priority Date/Time Associated Diagnosis Comments TRANSFERRIN RECEPTOR TFR SOLUBLE Routine 08/05/2024 4:08 PM RECEIVING CLERK TRANSFERRIN RECEPTOR TFR SOLUBLE Routine 08/05/2024 4:03 PM RECEIVING CLERK COMPREHENSIVE METABOLIC PANEL Routine 08/05/2024 1:56 PM RECEIVING CLERK from Last 3 Months Results * TRANSFERRIN RECEPTOR TFR SOLUBLE (08/05/2024 4:08 PM RECEIVING CLERK) Only the most recent of2 resultswithin the time period is included. Blood Dylon Guzman MD CHEMISTRY ORDERABLES Final Resu lt * COMPREHENSIVE METABOLIC PANEL (08/05/2024 1:56 PM RECEIVING CLERK) Blood Dylon Guzman MD CHEMISTRY ORDERABLES Final Resu lt from Last 3 Months Insurance MEDICARE PART A AND B BCBS SUPP MEDICARE PART A AND B BCBS SUPP Care Teams Insolvency Consultant Relationship Specialty Start Date End Date Gege Jackson MD PCP - General Internal Medicine 09/17/18
--- OUTSIDE RECORDS SUMMARY | 2024-10-31 18:24 | XMS_ITS | Referral Summary ---
[facility] Organization [facility] Address [address] [place] [address] Care Team Providers Care Horse Rancher Name Role Phone Ayo Jackson MD Primary Care Provide r Garrison Mary MD Unavailable [phone] Allergies Active Allergy Reactions Criticality Noted Date [...] monitoring Assessment & Plan (07/15/2021 3:48 PM TODDLER GUIDE): Parathyroid hormone level, call with results, consider referral to Head and Neck surgery at [facility] Social History Tobacco Use Types Packs/Day Years [...] on file Legal Sex Male 6:41 PM TODDLER GUIDE Gender Identity Not on file Sexual Orientation Not on file Last Filed Vital Signs Vital Sign Reading Time Taken Comments Blood Pressure 124/76 07/08/2022 7:43 AM TODDLER GUIDE Pulse 79 07/08/2022 7:43 AM TODDLER GUIDE Temperature 36.2 C (97.2 F) 07/08/2022 7:43 AM TODDLER GUIDE Respiratory Rate 16 07/08/2022 7:43 AM TODDLER GUIDE Oxygen Saturation 94% 07/08/2022 7:43 AM TODDLER GUIDE Inhaled Oxygen Concentration - - Weight 82.1 kg (181 lb) 07/07/2022 7:13 AM TODDLER GUIDE Height 185.4 cm (6' 1 ) 07/07/2022 7:13 AM TODDLER GUIDE Body Mass Index 23.88 07/07/2022 7:13 AM TODDLER GUIDE Plan of Treatment Not on file Medical Devices Implanted Type Area Bottling Line Attendant Device Identifier Shelf Expiration Date Model / Serial / Lot [facility] [employer] Sls-Clip Ligate Triangular Wire Leslee Groove Small [employer] Clip Latex Free [id number] - [id number] Implanted:Qty: 3 on 07/07/2022 by Gavin Sommer MD at [facility] [employer] [id number] / / Insurance MEDICARE [facility] MEDICARE [facility] MEDICARE [facility] Advance Directives For more information, please contact: [phone] * Full Code (Latest Code Status on File) Date Activated Date Inactivated Comments 07/07/2022 12:53 PM 07/08/2022 3:25 PM Care Teams Horse Rancher Relationship Specialty Start Date End Date Ayo Jackson MD [address] [address] PCP - General Internal Medicine 05/08/21 Garrison Mary MD [address] [address] Consulting Physician Otolaryngology 11/05/21
--- OUTSIDE RECORDS SUMMARY | 2024-10-31 18:24 | XMS_ITS | CONTINUITY OF CARE DOCUMENT ---
Author Name guy, gyu Address Unknown Organization [facility] Address [address] [place] [address] Phone [phone] Care Team Providers Care Installment Account Checker Name Role Phone Rangel Slaughter MD Unavailable YULIA LIMA MD Unavailable [phone] YULIA LIMA MD Unavailable PROBLEMS Condition Status Date Provider Notes S/P BI-V PM Biotronik // Gen change BiV PM Biotronik ( MRI Safe) active Kassandra Mandel Hypertriglyceridemia active Rangel Perez Vitamin D deficiency active Rangel Perez HTN essential;NEG DUPLEX active Rangel wise MD [facility] AORTIC SCLEROSIS;2007 completed - Rangel Slaughter MD Diabetes Mellitus, Type II active Rangel rey MD CABG; PAMELA AND 2V 2004; completed 4 - Rosario Fay MD CAD S/P CABG- PAMELA AND 2V 2004 active Rangel Slaughter MD neg dupelx DIASTOLIC DYSFUNCTION;NML EF 12 completed - Rangel Slaughter MD DYSLIPIDEMIA;with low crp active Rangel conrad MD ATRIAL FIBR, PAROX; NML TSH, active Dinah nair [facility] Tobacco use, quit active Rangel Slaughter MD t oo remote to screen BRADYCARDIA, SINUS;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 Rosario hamlin MD OBESITY;DID NOT WANT MEDFIAST OR DIET PILL completed - Rangel Slaughter MD AV BLOCK, 1ST DEGREE;DUE TO MEDS active - Rangel Slaughter MD R/O ISCHEMIA;NEG NUC 12 AND 14 completed - Rangel Slaughter MD MYALGIA completed - Rangel Slaughter MD ATRIAL FLUTTER PAROXYSMAL completed 10/22 - Rangel Slaughter MD r/o Sleep apnea;neg study completed 10/22 - Rangel Slaughter MD SICK SINUS SYNDROME completed - Rangel Slaughter MD Biotronic BiV cardiac pacemaker present active Rosario Fay MD MITRAL REGURGITATION, MILD, NML EF 13 completed - Rangel Slaughter MD CARDIOMYOPATHY completed - Rangel Slaughter MD DIABETES MELLITUS, TYPE II, CONTROLLED W/ VASCULAR COMPLICATIONS completed - Rangel Slaughter MD Peripheral vascular disease, unspecified completed - Rangel Slaughter MD Diastolic CHF and lvh active Rangel Slaughter MD Diabetes Mellitus, Type II, controlled w/ vascular complications completed - Rangel Slaughter MD Dyspnea on exertion completed - Rangel Slaughter MD Arthritis - osteo active Rosario mullen MD Granulomatous lung disease active Rangel rey MD Aortic atherosclerosis active Rangel Slaughter MD R/O Sleep apnea completed - Rosario Fay MD Carotid artery disease <50% completed 2008 - Rangel Slaughter MD r/o AAA;neg us completed - Rangel Slaughter MD Screening active Rangel Slaughter MD nml efgr Aortic root dilatation completed 4 - Rangel Slaughter MD Elevated LFT's completed - Rangel Slaughter MD Overweight completed - Rangel Slaughter MD Anemia, iron deficiency active Rangel watts MD B12 AND FOALTE [place] with macrocytis Ventricular tachycardia active Jesus Reyes Shortness of breath completed - Rangel Slaughter MD Dizziness completed - Rangel Slaughter MD Prostate cancer active Rangel Slaughter MD 201 0 Microalbuminuria;neg egfr active Rangel conrad MD hyperparathyroidism active Rangel Slaughter MD ENCOUNTERS Date Type Provider Location Encounter Diag nosis - In-person encounter Office Visit Rosario Fay MD [facility] - In-person encounter Office Visit Rangel Slaughter MD [facility] - In-person encounter Office Visit Rosario Fay MD [facility] - In-person encounter Office Visit Rosario Fay MD [facility] - In-person encounter Office Visit Rangel Slaughter MD [facility] - In-person encounter Office Visit Rangel Slaughter MD [facility] Diabetes Mellitus, Type IIOverweightMicroalbuminuria;ne g egfrhyperparathyroidism - In-person encounter Office Visit Rangel Slaughter MD [facility] Elevated LFT'sMicroalbuminuria;neg egfrhyperparathyroidism - In-person encounter Office Visit Rangel Slaughter MD [facility] Anemia, iron deficiencyProstate cancer - In-person encounter Office Visit Rangel Slaughter MD [facility] Anemia, iron deficiency - In-person encounter Office Visit Rangel Slaughter MD [facility] - In-person encounter Office Visit Rangel Slaughter MD [facility] Aortic root dilatation - In-person encounter Office Visit Rangel Slaughter MD [facility] HTN essential;NEG DUPLEXDizziness - In-person encounter Office Visit Rangel Slaughter MD [facility] - In-person encounter Office Visit Rangel Slaughter MD [facility] r/o Sleep apnea;neg studyCarotid artery disease <50%r/o AAA;neg usShortness of breath - In-person encounter Office Visit Rosario Fay MD [facility] - In-person encounter Office Visit Rosario Fay MD [facility] Ventricular tachycardia - In-person encounter Office Visit Rangel Slaughter MD [facility] Tobacco use, quitDiastolic CHF and lvhScreening - In-person encounter Office Visit Rangel Slaughter MD [facility] CAD S/P CABG- PAMELA AND 2V 2004Diastolic CHF and lvhScreeningAnemia, iron deficiency - In-person encounter Office Visit Rosario Fay MD [facility] HTN essential;NEG DUPLEXDiabetes Mellitus, Type IICAD S/P CABG- PAMELA AND 2V 2004DYSLIPIDEMIA;with low crpHx of DVTBiotronic BiV cardiac pacemaker presentR/O Sleep apnea - In-person encounter Office Visit Rosario Fay MD [facility] - In-person encounter Office Visit Rangel Slaughter MD [facility] DYSLIPIDEMIA;with low crpr/o Sleep apnea;neg studyDyspnea on exertion - In-person encounter Office Visit Rangel Slaughter MD [facility] - In-person encounter Office Visit Rosario Fay MD [facility] R/O Sleep apnea - In-person encounter Office Visit Rosario Fay MD [facility] - In-person encounter Office Visit Rosario Fay MD [facility] - In-person encounter Office Visit Rangel Slaughter MD [facility] ATRIAL FIBR, PAROX; NML TSH,Tobacco use, quitSnoringOBESITY;DID NOT WANT MEDFIAST OR DIET PILLDiabetes Mellitus, Type II, controlled w/ vascular complicationsGranulomatous lung diseaseAortic atherosclerosis - In-person encounter Office Visit Rosario Fay MD [facility] CAD S/P CABG- PAMELA AND 2V 2004AAA; NEG US 09Hx of DVTBiotronic BiV cardiac pacemaker presentArthritis - osteo - In-person encounter Office Visit Rosario Fay MD [facility] - In-person encounter Office Visit Rosario Fay MD [facility] - In-person encounter Office Visit Rangel Slaughter MD [facility] HTN essential;NEG DUPLEXR/O ISCHEMIA;NEG NUC 12 AND 14Biotronic BiV cardiac pacemaker presentDiastolic CHF and lvh - In-person encounter Office Visit Rosario Fay MD [facility] - In-person encounter Office Visit Rangel Slaughter MD [facility] HTN essential;NEG DUPLEXATRIAL FIBR, PAROX; NML TSH,MITRAL REGURGITATION, MILD, NML EF 13DIABETES MELLITUS, TYPE II, CONTROLLED W/ VASCULAR COMPLICATIONSPeripheral vascular disease, unspecifiedDiastolic CHF and lvh - In-person encounter Office Visit Rosario Fay MD [facility] - In-person encounter Office Visit Rangel Slaughter MD [facility] HTN essential;NEG DUPLEXDYSLIPIDEMIA;with low crpATRIAL FIBR, PAROX; NML TSH,OBESITY;DID NOT WANT MEDFIAST OR DIET PILLBiotronic BiV cardiac pacemaker presentCARDIOMYOPATHY - In-person encounter Office Visit Rosario Fay MD [facility] - In-person encounter Office Visit Rosario Fay MD [facility] - In-person encounter Office Visit Rosario Fay MD [facility] - In-person encounter Office Visit Ranegl Slaughter MD [facility] DIASTOLIC DYSFUNCTION;NML EF 12DYSLIPIDEMIA;with low crpATRIAL FIBR, PAROX; NML TSH,Tobacco use, quitBRADYCARDIA, SINUS;WORSENED BY SOTOLOLAV BLOCK, 1ST DEGREE;DUE TO MEDSMYALGIAATRIAL FLUTTER PAROXYSMALSICK SINUS SYNDROMEBiotronic BiV cardiac pacemaker present - In-person encounter Office Visit Rosario Fay MD [facility] - In-person encounter Office Visit Rosario Fay MD [facility] - In-person encounter Office Visit Rosario Fay MD [facility] r/o Sleep apnea;neg study - In-person encounter Office Visit Rosario Fay MD [facility] - In-person encounter Office Visit Rangel Slaughter MD [facility] DYSLIPIDEMIA;with low crpATRIAL FIBR, PAROX; NML TSH,Hx of DVTOBESITY;DID NOT WANT MEDFIAST OR DIET PILLR/O ISCHEMIA;NEG NUC 12 AND 14 - In-person encounter Office Visit Rangel Slaughter MD [facility] DIASTOLIC DYSFUNCTION;NML EF 12DYSLIPIDEMIA;with low crpHx of DVTAV BLOCK, 1ST DEGREE;DUE TO MEDS - In-person encounter Office Visit Rangel Slaughter MD [facility] - In-person encounter Office Visit Rangel Slaughter MD [facility] HTN essential;NEG DUPLEXCAD S/P CABG- PAMELA AND 2V 2004DIASTOLIC DYSFUNCTION;NML EF 12Hx of DVTOBESITY;DID NOT WANT MEDFIAST OR DIET PILL - In-person encounter Office Visit Rangel Slaughter MD [facility] ATRIAL FIBR, PAROX; NML TSH,Tobacco use, quit - In-person encounter Office Visit Rangel Slaughter MD [facility] ATRIAL FIBR, PAROX; NML TSH,Snoring - In-person encounter Office Visit Rangel Slaughter MD [facility] CAD S/P CABG- PAMELA AND 2V 2004ATRIAL FIBR, PAROX; NML TSH, - In-person encounter Office Visit Rangel Slaughter MD [facility] HTN essential;NEG DUPLEXAORTIC SCLEROSIS;2008CABG; PAMELA AND 2V 2004;DIASTOLIC DYSFUNCTION;NML EF 12ATRIAL FIBR, PAROX; NML TSH,BRADYCARDIA, SINUS;WORSENED BY SOTOLOL - In-person encounter Office Visit Rangel Slaughter MD [facility] ATRIAL FIBR, PAROX; NML TSH, - In-person encounter Office Visit Rangel Slaughter MD [facility] HTN essential;NEG DUPLEXCABG; PAMELA AND 2V 2004;CAD S/P CABG- PAMELA AND 2V 2004DIASTOLIC DYSFUNCTION;NML EF 12DYSLIPIDEMIA;with low crpATRIAL FIBR, PAROX; NML TSH,Tobacco use, quit - In-person encounter Office Visit Rangel Slaughter MD [facility] AORTIC SCLEROSIS;2008Diabetes Mellitus, Type IICABG; PAMELA AND 2V 2004; VITAL SIGNS Date Observation Value Provider Body Mass Index (Ratio) 24.41 kg/m2 Anjum Fay MD weight E&M 185 [lb_av] Cassia Garcia lder blood pressure, cuff size regular Ke rri Delonte blood pressure, diastolic 70 mm[Hg] Ke rri Gruenenfelder blood pressure, systolic 132 mm[Hg] Ker ri Gruenenfelder oxygen saturation, oximetry 100 % Cassia Gruenenfelder respiratory rate E&M 16 /min Cassia G ruenenfelder pulse rate 75 /min Cassia Gruenenfe lder height E&M 73 [in_i] Cassia Gruenenfe lder Body Mass Index (Ratio) 24.27 kg/m2 Svetlana Slaughter MD blood pressure, cuff size regular Ke rri Gruenenfelder blood pressure, diastolic 70 mm[Hg] Ke rri Gruenenfelder blood pressure, systolic 120 mm[Hg] Ker ri Gruenenfelder oxygen saturation, oximetry 98 % Cassia Gruenenfelder respiratory rate E&M 12 /min Cassia G ruenenfelder pulse rate 77 /min Cassia Gruenenfe lder weight E&M 184 [lb_av] Cassia Gruenenfe lder height E&M 73 [in_i] Cassia Gruenenfe lder Body Mass Index (Ratio) 24.54 kg/m2 Svetlana Slaughter MD blood pressure, cuff size regular Ke rri Gruenenfelder blood pressure, diastolic 70 mm[Hg] Ke rri Gruenenfelder blood pressure, systolic 110 mm[Hg] Ker ri Gruenenfelder oxygen saturation, oximetry 97 % Cassia Gruenenfelder respiratory rate E&M 12 /min Cassia G ruenenfelder pulse rate 79 /min Cassia Gruenenfe lder weight E&M 186 [lb_av] Cassia Radha [facility] height E&M 73 [in_i] Cassia Jean-Paulfab [facility] Body Mass Index (Ratio) 24.99 kg/m2 Svetlana Slaughter MD blood pressure, cuff size large Ta ad [place] blood pressure, diastolic 74 mm[Hg] Ta ad [place] blood pressure, systolic 136 mm[Hg] [facility] oxygen saturation, oximetry 96 % [facility] respiratory rate E&M 16 /min [facility] pulse rate 80 /min [facility] weight E&M 189.4 [lb_av] [facility] height E&M 73 [in_i] [facility] Body Mass Index (Ratio) 25.86 kg/m2 Svetlana Slaughter MD blood pressure, diastolic 84 mm[Hg] Sara lewisLogrosaura blood pressure, systolic 141 mm[Hg] Jael Valero blood pressure, diastolic 84 mm[Hg] Luzma Melendez blood pressure, systolic 141 mm[Hg] Fanta Melendez oxygen saturation, oximetry 93 % Clarence Melendez respiratory rate E&M 22 /min Naveed Melendez pulse rate 123 /min Davedeven Dann lopez weight E&M 196 [lb_av] Rangel Serotmac Cartagena D height E&M 73 [in_i] Clarence lopez Body Mass Index (Ratio) 25.33 kg/m2 Svetlana Slaughter MD weight E&M 192 [lb_av] Rangel Cartagena D blood pressure, diastolic 76 mm[Hg] Robert Slaughter MD blood pressure, systolic 121 mm[Hg] Tim Slaughter MD Body Mass Index (Ratio) 27.70 kg/m2 Svetlana Slaughter MD respiratory rate E&M 18 /min Ana Andrade blood pressure, cuff size regular Tr rogelio Andrade blood pressure, diastolic 90 mm[Hg] Tr rogelio Andrade blood pressure, systolic 160 mm[Hg] Try sheridan Andrade oxygen saturation, oximetry 97 % Ana Andrade pulse rate 80 /min Trysheridan Andrade weight E&M 210 [lb_av] Ana Andrade height E&M 73 [in_i] Ana Andrade Body Mass Index (Ratio) 28.76 kg/m2 Svetlana Slaughter MD blood pressure, diastolic 81 mm[Hg] Fe ganesh Kovacs blood pressure, systolic 138 mm[Hg] Fel icia Kovacs oxygen saturation, oximetry 98 % Nancy Kovacs respiratory rate E&M 16 /min Nancy Kovacs pulse rate 86 /min Nancy Kovacs temperature E&M 97.2 [degF] Nancy Kovacs weight E&M 218 [lb_av] Nancy Kovacs height E&M 73 [in_i] Nancy Kovacs Body Mass Index (Ratio) 28.63 kg/m2 Svetlana Slaughter MD blood pressure, diastolic 81 mm[Hg] To nsha Cummins blood pressure, systolic 138 mm[Hg] Ton sha Cummins oxygen saturation, oximetry 96 % Tonsha Cummins respiratory rate E&M 16 /min Tonsha Cummins pulse rate 81 /min Tonsha Cummins weight E&M 217 [lb_av] Tonsha Cummins temperature site temporal Tonsha Cummins height E&M 73 [in_i] Tonsha Cummins temperature E&M 97.7 [degF] Selmamac epstein Body Mass Index (Ratio) 28.63 kg/m2 Svetlana Slaughter MD blood pressure, diastolic 96 mm[Hg] To ns Cummins blood pressure, systolic 166 mm[Hg] Ton [facility] pulse rate 80 /[facility]&M 16 /min [facility] oxygen saturation, oximetry 96 % [facility] weight E&M 217 [lb_av] [facility] height E&M 73 [in_i] [facility] Body Mass Index (Ratio) 28.52 kg/m2 Svetlana Slaughter MD blood pressure, resting Yes Jef Friedman NP blood pressure, diastolic 82 mm[Hg] Eddy Hunter blood pressure, systolic 166 mm[Hg] Maryan Hunter oxygen saturation, oximetry 96 % Sabina Hunter respiratory rate E&M 18 /min AmandaRenetta jenna Hunter pulse rate 85 /min Sabina Barrera nson weight E&M 216.2 [lb_av] Sabina Torres enson height E&M 73 [in_i] Sabina Torrese nson Body Mass Index (Ratio) 29.02 kg/m2 Svetlana Slaughter MD blood pressure, diastolic 90 mm[Hg] Da andrew Joan blood pressure, systolic 168 mm[Hg] Dac ia Joan oxygen saturation, oximetry 96 % Sheryl Joan respiratory rate E&M 16 /min Sheryl V oss pulse rate 81 /min Sheryl Joan weight E&M 220 [lb_av] Sheryl Joan height E&M 73 [in_i] Sheryl Joan Body Mass Index (Ratio) 28.36 kg/m2 Blair Reyes blood pressure, diastolic 82 mm[Hg] César Hernandez blood pressure, systolic 140 mm[Hg] Manuelito Hernandez oxygen saturation, oximetry 97 % Arabella respiratory rate E&M 16 /min Rexford pulse rate 81 /min weight E&M 215 [lb_av] height E&M 73 [in_i] Arabella Hernandez Body Mass Index (Ratio) 28.36 kg/m2 Blair ugalde Eric blood pressure, diastolic 80 mm[Hg] Da andrew Joan blood pressure, systolic 138 mm[Hg] Dac ia Joan oxygen saturation, oximetry 95 % Sheryl Joan respiratory rate E&M 16 /min Sheryl V oss pulse rate 81 /min Sheryl Joan weight E&M 215 [lb_av] Sheryl Joan height E&M 73 [in_i] Sheryl Joan Body Mass Index (Ratio) 28.07 kg/m2 Svetlana Slaughter MD blood pressure, diastolic 93 mm[Hg] Eddy Hunter blood pressure, systolic 160 mm[Hg] Maryan Hunter oxygen saturation, oximetry 97 % Sabina Hunter respiratory rate E&M 18 /min Juliette Hunter pulse rate 80 /min Sabina lizarragaon weight E&M 212.8 [lb_av] Sabina Brian enson height E&M 73 [in_i] Sabina Torrese nson Body Mass Index (Ratio) 27.31 kg/m2 Ame Harvey RN blood pressure, cuff size regular jimi Moyecs RN blood pressure, diastolic 80 mm[Hg] jimi Moyecs RN blood pressure, systolic 140 mm[Hg] Corbin Harvey RN oxygen saturation, oximetry 98 % Soraida Harvey RN respiratory rate E&M 18 /min Soraida Demecs RN pulse rate 81 /min Soraida Demecs R N weight E&M 207 [lb_av] Soraida Demecs R N Body Mass Index (Ratio) 27.18 kg/m2 Ame Winterecs RN blood pressure, cuff size regular Je ssica N Lester blood pressure, diastolic 70 mm[Hg] Je ssica N Lester blood pressure, systolic 130 mm[Hg] Brianna tae N Lester oxygen saturation, oximetry 97 % Marcella N Lester respiratory rate E&M 18 /min Marcella N Lester pulse rate 77 /min Marcella N Wilso n weight E&M 206 [lb_av] Marcella N Wilso n Body Mass Index (Ratio) 27.70 kg/m2 Svetlana Slaughter MD blood pressure, cuff size regular Ke rri Delonte blood pressure, diastolic 79 mm[Hg] Ke rri [place] blood pressure, systolic 146 mm[Hg] Lakeshia Martel oxygen saturation, oximetry 93 % Cassia Martel respiratory rate E&M 16 /min Cassia guidry pulse rate 79 /min Cassia cheryer weight E&M 210 [lb_av] Cassia Garcia er height E&M 73 [in_i] Cassia Garcia lder blood pressure, diastolic 80 mm[Hg] Eddy Hunter blood pressure, systolic 154 mm[Hg] Maryan Hunter pulse rate 80 /min Sabina harmon oxygen saturation, oximetry 96 % Sabina Hunter respiratory rate E&M 16 /min Juliette Hunter Body Mass Index (Ratio) 27.84 kg/m2 Amanda Hunter weight E&M 211.0 [lb_av] Sabina liveon respiratory rate E&M 16 /min Juliette Hunter Body Mass Index (Ratio) 27.47 kg/m2 Amanda Hunter weight E&M 208.2 [lb_av] Sabina liveon blood pressure, diastolic 80 mm[Hg] Eddy Hunter blood pressure, systolic 148 mm[Hg] Maryan Hunter pulse rate 80 /min Sabina Barrera nson oxygen saturation, oximetry 93 % Sabina Hunter respiratory rate E&M 16 /min Juliette Hunter Body Mass Index (Ratio) 27.36 kg/m2 Amanda Hunter weight E&M 207.4 [lb_av] Sabina liveon blood pressure, diastolic 77 mm[Hg] Co elvia Medina blood pressure, systolic 142 mm[Hg] Vanessa carpio Medina pulse rate 80 /min Judy Medina oxygen saturation, oximetry 98 % Judy Medina respiratory rate E&M 14 /min Judy Medina Body Mass Index (Ratio) 27.31 kg/m2 Shazia pierre Medina weight E&M 207 [lb_av] Judy Medina blood pressure, diastolic 79 mm[Hg] Eddy Hunter blood pressure, systolic 147 mm[Hg] Maryan Hunter pulse rate 82 /min Sabina Barrera nson oxygen saturation, oximetry 96 % Sabina Hunter respiratory rate E&M 18 /min Juliette Hunter Body Mass Index (Ratio) 27.20 kg/m2 Amanda Hunter weight E&M 206.2 [lb_av] Sabina liveon blood pressure, diastolic 62 mm[Hg] Eddy Hunter blood pressure, systolic 109 mm[Hg] Maryan Hunter pulse rate 93 /min Sabina harmon oxygen saturation, oximetry 98 % Sabina Hunter respiratory rate E&M 18 /min Juliette Hunter Body Mass Index (Ratio) 26.07 kg/m2 Amanda Hutner weight E&M 197.6 [lb_av] Sabina pritchett blood pressure, diastolic 70 mm[Hg] Sa ndra Horsey blood pressure, systolic 122 mm[Hg] Buckner cristy Horsey pulse rate 84 /min Xochitl Horsey oxygen saturation, oximetry 98 % Xochitl Horsey respiratory rate E&M 18 /min Xochitl Horsey Body Mass Index (Ratio) 25.91 kg/m2 Sand ra Horsey weight E&M 196.4 [lb_av] Xochitl Horsey blood pressure, diastolic 70 mm[Hg] Eduar gonsalez Justus blood pressure, systolic 110 mm[Hg] Inderjit clark Justus pulse rate 87 /min Eduaramber Moralesey oxygen saturation, oximetry 97 % Eduaramber Jerome respiratory rate E&M 18 /min Sammi Justus Body Mass Index (Ratio) 26.07 kg/m2 Ibrahima Jerome weight E&M 197.6 [lb_av] Eduar'amber Justus blood pressure, diastolic 87 mm[Hg] Me elvia Medina blood pressure, systolic 152 mm[Hg] Vanessa shirin Medina Body Mass Index (Ratio) 27.18 kg/m2 Shazia gabby Medina pulse rate 80 /min Judy Medina oxygen saturation, oximetry 98 % Judy Medina respiratory rate E&M 15 /min Judy Medina weight E&M 206 [lb_av] Judy Medina Body Mass Index (Ratio) 26.60 kg/m2 Shazia Lyn blood pressure, diastolic 78 mm[Hg] Me elvia Lyn blood pressure, systolic 138 mm[Hg] Vanessa Lny pulse rate 89 /min Judy Lyn oxygen saturation, oximetry 98 % Judy Lyn respiratory rate E&M 16 /min Judy Lyn weight E&M 201.6 [lb_av] Judy Lyn Body Mass Index (Ratio) 26.78 kg/m2 Ch i [place] blood pressure, diastolic 72 mm[Hg] Krishna mahoneyi [place] blood pressure, systolic 132 mm[Hg] Lakeshia adelina Martel pulse rate 92 /min Cassia Radha [facility] oxygen saturation, oximetry 97 % Cassia Martel respiratory rate E&M 16 /min Cassia guidry weight E&M 203 [lb_av] Cassia Garcia er blood pressure, diastolic 90 mm[Hg] Eddy Hunter blood pressure, systolic 131 mm[Hg] Maryan Hunter Body Mass Index (Ratio) 26.67 kg/m2 Amanda Hunter pulse rate 91 /min Sabina harmon oxygen saturation, oximetry 97 % Sabina Hunter respiratory rate E&M 18 /min Juliette Hunter weight E&M 202.2 [lb_av] Sabina pritchett Body Mass Index (Ratio) 29.55 kg/m2 Anea chastity Brown blood pressure, diastolic 101 mm[Hg] An eatris Brown blood pressure, systolic 178 mm[Hg] Ane atris Brown pulse rate 87 /min Penny Thompson oxygen saturation, oximetry 95 % Penny Thompson respiratory rate E&M 18 /min Marc Thompson weight E&M 224 [lb_av] Penny Thompson Body Mass Index (Ratio) 29.15 kg/m2 Shazia pierre Medina blood pressure, diastolic 94 mm[Hg] Me gan Medina blood pressure, systolic 159 mm[Hg] Vanessa carpio Medina pulse rate 90 /min Judy Medina oxygen saturation, oximetry 98 % Judy Medina respiratory rate E&M 14 /min Judy Medina weight E&M 221 [lb_av] Judy Carol blood pressure, diastolic, left arm 98 mm [Hg] Moreno Posada RN blood pressure, systolic, left arm 163 mm [Hg] Moreno Posada RN blood pressure, diastolic, right arm 98 m m[Hg] Moreno Posada RN blood pressure, systolic, right arm 172 m m[Hg] Moreno Posada RN blood pressure, diastolic 98 mm[Hg] Kodi Posada RN blood pressure, systolic 163 mm[Hg] Moreno Posada RN pulse rate 96 /min Moreno Posada RN oxygen saturation, oximetry 98 % Moreno Posada RN respiratory rate E&M 18 /min Moreno palacio RN Body Mass Index (Ratio) 29.13 kg/m2 Moreno Posada RN weight E&M 220 [lb_av] Moreno Posada RN blood pressure, diastolic 89 mm[Hg] Kodi Posada RN blood pressure, systolic 148 mm[Hg] Moreno Posada RN pulse rate 91 /min Moreno Posada RN oxygen saturation, oximetry 97 % Moreno Posada RN respiratory rate E&M 16 /min Moreno palacio RN weight E&M 210 [lb_av] Moreno Posada RN blood pressure, diastolic 84 mm[Hg] Kodi zach Posada RN blood pressure, systolic 150 mm[Hg] Moreno Posada RN pulse rate 85 /min Moreno Posada RN oxygen saturation, oximetry 97 % Moreno Posada RN respiratory rate E&M 16 /min Moreno palacio RN Body Mass Index (Ratio) 28.07 kg/m2 Moreno Posada RN weight E&M 212 [lb_av] Moreno Posada RN blood pressure, diastolic 70 mm[Hg] Tacos Johnson blood pressure, systolic 118 mm[Hg] Harry Johnson Body Mass Index (Ratio) 26.61 kg/m2 Wanad Johnson pulse rate 83 /min Klaudia Johnson oxygen saturation, oximetry 96 % Klaudia Johnson respiratory rate E&M 16 /min Klaudia Johnson weight E&M 201 [lb_av] Klaudia Johnson Body Mass Index (Ratio) 28.18 kg/m2 Garrison johnson [place] blood pressure, diastolic, left arm 62 mm [Hg] Sander [place] blood pressure, systolic, left arm 112 mm [Hg] Sander [place] blood pressure, diastolic, right arm 76 m m[Hg] Sander [place] blood pressure, systolic, right arm 120 m m[Hg] Sander [place] blood pressure, diastolic 76 mm[Hg] Cherrie seph [place] blood pressure, systolic 120 mm[Hg] Jung geraldo [place] pulse rate 85 /min Sander [place] oxygen saturation, oximetry 98 % Sander [place] respiratory rate E&M 16 /min Sander [place] weight E&M 212.8 [lb_av] Sander Tello blood pressure, diastolic 74 mm[Hg] Tacos Johnson blood pressure, systolic 118 mm[Hg] Harry Johnson Body Mass Index (Ratio) 27.41 kg/m2 Wanda [place] pulse rate 97 /min Klaudia [place] oxygen saturation, oximetry 94 % [facility] respiratory rate E&M 17 /min [facility] weight E&M 207 [lb_av] [facility] Body Mass Index (Ratio) 2.85 kg/m2 Ricco frances [place] blood pressure, diastolic, left arm 78 mm [Hg] [facility], systolic, left arm 152 mm [Hg] [facility] blood pressure, diastolic, right arm 75 m m[Hg] [facility] blood pressure, systolic, right arm 142 m m[Hg] [facility] blood pressure, diastolic 78 mm[Hg] Villegas Tuttle blood pressure, systolic 152 mm[Hg] Shubham alfonso [place] pulse rate 16 /min [facility] oxygen saturation, oximetry 99 % [facility] respiratory rate E&M 16 /min [facility] weight E&M 21.50 [lb_av] Meme serrano blood pressure, diastolic 88 mm[Hg] Kodi Posada RN blood pressure, systolic 147 mm[Hg] Moreno Posada RN pulse rate 85 /min Moreno Posada RN oxygen saturation, oximetry 96 % Moreno Posada RN respiratory rate E&M 18 /min Moreno palacio RN Body Mass Index (Ratio) 29.13 kg/m2 Moreno Posada RN weight E&M 220 [lb_av] Moreno oPsada RN Body Mass Index (Ratio) 28.60 kg/m2 Ch i [place] blood pressure, diastolic 88 mm[Hg] Ke rri [place] blood pressure, systolic 132 mm[Hg] Ker ri Grnav pulse rate 96 /min Cassia Garcia lder oxygen saturation, oximetry 98 % Cassia Pandeyjason respiratory rate E&M 17 /min Cassia Aguilar carolemireyarhea weight E&M 216 [lb_av] Cassia Memosawyerchasfab lder blood pressure, diastolic, left arm 75 mm [Hg] Moreno Posada RN blood pressure, systolic, left arm 159 mm [Hg] Moreno Posada RN blood pressure, diastolic, right arm 73 m m[Hg] Moreno Posada RN blood pressure, systolic, right arm 130 m m[Hg] Moreno Posada RN blood pressure, diastolic 75 mm[Hg] Kodi Posada RN blood pressure, systolic 159 mm[Hg] Moreno Posada RN pulse rate 90 /min Moreno Posada RN oxygen saturation, oximetry 96 % Moreno Posada RN respiratory rate E&M 16 /min Moreno granadoss RN weight E&M 216 [lb_av] Moreno Posada RN blood pressure, diastolic 73 mm[Hg] Kodi Posada RN blood pressure, systolic 148 mm[Hg] Moreno Posada RN pulse rate 80 /min Moreno Posada RN oxygen saturation, oximetry 97 % Moreno Posada RN respiratory rate E&M 16 /min Moreno Osorio rks RN weight E&M 225 [lb_av] Moreno Posada RN blood pressure, diastolic, left arm 81 mm [Hg] Katie Gomse MA blood pressure, systolic, left arm 141 mm [Hg] Katie Gomes MA blood pressure, diastolic, right arm 80 m m[Hg] Katie Gomes MA blood pressure, systolic, right arm 142 m m[Hg] Katie Gomes [place] oxygen saturation, oximetry 97 % Katie Gomes MA blood pressure, diastolic 80 mm[Hg] Mellissa Gomes [place] blood pressure, systolic 142 mm[Hg] Suze Gomes EDDY pulse rate 72 /min Katie Gomes EDDY respiratory rate E&M 20 /min Katie Gomes [place] weight E&M 212 [lb_av] Katie Gomes EDDY blood pressure, diastolic 73 mm[Hg] Kodi Posada RN blood pressure, systolic 144 mm[Hg] Moreno Posada RN pulse rate 74 /min Moreno Posada RN oxygen saturation, oximetry 98 % Moreno Posada RN respiratory rate E&M 16 /min Moreno palacio RN weight E&M 216 [lb_av] Moreno Posada RN blood pressure, diastolic 73 mm[Hg] Flavio Courtney blood pressure, systolic 135 mm[Hg] Gennaro [place] pulse rate 63 /min Mary Courtney oxygen saturation, oximetry 97 % Mary Courtney respiratory rate E&M 18 /min Ole [place] weight E&M 210 [lb_av] Mary Courtney blood pressure, diastolic 72 mm[Hg] Cherrie seph [place] blood pressure, systolic 142 mm[Hg] Jung eph [place] pulse rate 67 /min Sander [place] oxygen saturation, oximetry 98 % Sander [place] respiratory rate E&M 16 /min Sander [place] weight E&M 208 [lb_av] Sander [place] blood pressure, diastolic 84 mm[Hg] Cherrie seph [place] blood pressure, systolic 139 mm[Hg] Jung eph [place] pulse rate 75 /min Sander [place] height E&M 73 [in_i] Sander [place] height in centimeters E&M 185.42 cm Cherrie seph [place] blood pressure, diastolic 80 mm[Hg] Cherrie seph [place] blood pressure, systolic 158 mm[Hg] Jung eph [place] pulse rate 56 /min Sander [place] oxygen saturation, oximetry 96 % Sander [place] respiratory rate E&M 16 /min Sander [place] weight E&M 210 [lb_av] Sander [place] blood pressure, diastolic 78 mm[Hg] Cherrie seph [place] blood pressure, systolic 127 mm[Hg] Jung eph [place] pulse rate 70 /min Sander [place] oxygen saturation, oximetry 99 % Sander [place] respiratory rate E&M 16 /min Sander [place] weight E&M 209.31 [lb_av] Sander [place] p height E&M 73 [in_i] Sander [place] ALLERGIES Allergy Name Onset Date Reaction Criticality Status SOTALOL HCL bradley Low Criticality suspende d AMIODARONE HCL very sick Low Criticality activ e RESULTS Date Observation Value Provider Reference Range Interpretation Location activated partial thromboplastin time (aPTT) 27 s [facility] 24-33 prothrombin time (patient) 12.1 s [facility] 9.1-12.0 High international normalized ratio (INR) 1.1 [facility] 0.9-1.2 alanine aminotransferase (SGPT), serum 14 1/L [facility] 0-44 aspartate aminotransferase (SGOT), serum 12 1/L [facility] 0-40 alkaline phosphatase, serum 72 1/L [facility] 44-121 bilirubin, serum, total 0.7 mg/dL [facility] 0.0-1.2 albumin/globulin ratio, serum 1.8 [facility] 1.2-2.2 globulin, serum 2.2 [facility] 1.5-4.5 albumin, serum 3.9 g/dL [facility] 3.8-4.8 protein, total, serum 6.1 g/dL [facility] 6.0-8.5 calcium, serum 9.2 mg/dL [facility] 8.6-10.2 carbon dioxide, venous blood 24 mmol/L [facility] 20-29 chloride, serum 106 mmol/L [facility] 96-106 potassium, serum 4.9 mmol/L [facility] 3.5-5.2 sodium, serum 143 mmol/L [facility] [phone]/12 /08 urea nitrogen/creatinine ratio, serum 21 [facility] 10-24 creatinine, serum 1.11 mg/dL [facility] 0.76-1.27 urea nitrogen, blood 23 mg/dL [facility] 8-27 blood glucose, random 150 mg/dL [facility] 70-99 High bacteria, urine microscopy None seen [facility] None seen/Few hyaline casts, urine None seen [facility] None seen epithelial cells, urine None seen [facility] 0 - 10 RBC, Urine None seen /hpf [facility] 0 - 2 WBC urine on microscopy None seen /hpf [facility] 0 - 5 nitrate, urine Negative [facility] Negative urobilinogen, urine, semiquantitative (dipstick) 0.2 [facility] 0.2-1.0 bilirubin, urine Negative [facility] Negative hemoglobin, urine, by dipstick Negative [facility] Negative ketones, urine, by test strip Negative [facility] Negative glucose, urine 3+ [facility] Negative Abnormal protein, urine, semiquantitative (dipstick) Negative [facility] Negative/Tr maame leukocyte esterase, urine, by dipstick Negative [facility] Negative appearance, urine Clear [facility] Clear urine color Yellow [facility] Yellow pH, urine, semiquantitative 5.5 [facility] 5.0-7.5 specific gravity, body fluid >=1.030 [facility] 1.005-1.030 Abnormal basophil count, absolute 0.0 x10E3/uL [facility] 0.0-0.2 Eosinophil Absolute Count 0.0 X10E3/UL [facility] 0.0-0.4 monocyte count, blood, automated 0.4 X10E3/UL [facility] 0.1-0.9 lymphocyte count, blood, automated 0.9 X10E3/UL [facility] 0.7-3.1 Absolute Neutrophils 3.9 X10E3/UL [facility] 1.4-7.0 basophils as percent of blood leukocytes 1 % [facility] Not Estab. eosinophils as percent of blood leukocytes 1 % [facility] Not Estab. monocytes as percent of blood leukocytes 7 % [facility] Not Estab. lymphocytes as percent of blood leukocytes 17 % [facility] Not Estab. neutrophils as percent of blood leukocytes 74 % [facility] Not Estab. platelet count 169 X10E3/UL [facility] 628-196 6333/12 /07 red blood cell distribution width 12.4 % [facility] 11.6-15.4 mean corpuscular hemoglobin concentration, RBC 34.0 G/DL [facility] 31.5-35.7 mean corpuscular hemoglobin, RBC 32.0 pg [facility] 26.6-33.0 mean corpuscular volume, RBC 94 fL [facility] 79-97 hematocrit, blood 36.5 % [facility] 37.5-51.0 Low hemoglobin, blood 12.4 g/dL [facility] 13.0-17.7 Low erythrocyte (RBC) count 3.87 X10E6/UL [facility] 4.14-5.80 Low leukocyte count, blood 5.3 X10E3/UL [facility] 3.4-10.8 pro brain natriuretic peptide 450 pg/mL [facility] 0-486 LDL cholesterol, serum 32 mg/dL Effie Friedman [employer] pro brain natriuretic peptide 390 pg/mL [facility] 0-376 High ferritin, serum 381 ng/mL [facility] 30-400 iron saturation percent, serum 41 % [facility] 15-55 iron, serum 127 ug/dL [facility] 38-169 iron binding capacity, unsaturated 183 ug/dL [facility] [phone]/03 /20 iron binding capacity, total 310 ug/dL [facility] 526-424 5024/03 /20 calcium, serum 10.2 mg/dL [facility] 8.6-10.2 carbon dioxide, venous blood 23 mmol/L [facility] 20-29 chloride, serum 104 mmol/L [facility] 96-106 potassium, serum 5.0 mmol/L [facility] 3.5-5.2 sodium, serum 143 mmol/L [facility] 673-186 1159/03 /20 urea nitrogen/creatinine ratio, serum 11 [facility] 10-24 eGFR if 90 mL/min/{1.73_ m2} [facility] >59 eGFR if not 78 mL/min/{1.73_ m2} [facility] >59 creatinine, serum 0.96 mg/dL [facility] 0.76-1.27 urea nitrogen, blood 11 mg/dL [facility] 8-27 blood glucose, random 122 mg/dL [facility] 65-99 High pro brain natriuretic peptide 319 pg/mL [facility] 0-376 magnesium, serum 2.3 mg/dL [facility] 1.6-2.3 activated partial thromboplastin time (aPTT) 26 s [facility] 24-33 prothrombin time (patient) 11.3 s [facility] 9.1-12.0 international normalized ratio (INR) 1.1 [facility] 0.8-1.2 free thyroxine index 1.7 [facility] 1.2-4.9 triiodothyronine resin uptake 26 % [facility] 24-39 thyroxine, serum, total 6.6 ug/dL [facility] 4.5-12.0 lipoprotein, beta, serum, point, quantitative, calculated 32 mg/dL [facility] 0-99 very low density lipoproteins 45 mg/dL [facility] 5-40 High HDL cholesterol, serum 26 mg/dL [facility] >39 Low triglyceride, serum, random 224 mg/dL [facility] 0-149 High cholesterol, serum 103 mg/dL [facility] [phone]/09 /08 platelet count 137 X10E3/UL [facility] 150-379 Low red blood cell distribution width 13.7 % [facility] 12.3-15.4 mean corpuscular hemoglobin concentration, RBC 35.3 G/DL [facility] 31.5-35.7 mean corpuscular hemoglobin, RBC 33.1 pg [facility] 26.6-33.0 High mean corpuscular volume, RBC 94 fL [facility] 79-97 hematocrit, blood 45.0 % [facility] 37.5-51.0 hemoglobin, blood 15.9 g/dL [facility] 13.0-17.7 erythrocyte (RBC) count 4.80 X10E6/UL [facility] 4.14-5.80 leukocyte count, blood 5.2 X10E3/UL [facility] 3.4-10.8 alanine aminotransferase (SGPT), serum 23 1/L [facility] 0-44 aspartate aminotransferase (SGOT), serum 17 1/L [facility] 0-40 alkaline phosphatase, serum 87 1/L [facility] 39-117 bilirubin, serum, total 1.2 mg/dL [facility] 0.0-1.2 albumin/globulin ratio, serum 1.5 [facility] 1.2-2.2 globulin, serum 2.7 [facility] 1.5-4.5 albumin, serum 4.1 g/dL [facility] 3.5-4.8 protein, total, serum 6.8 g/dL [facility] 6.0-8.5 calcium, serum 10.3 mg/dL [facility] 8.6-10.2 High carbon dioxide, venous blood 23 mmol/L [facility] 20-29 chloride, serum 105 mmol/L [facility] 96-106 potassium, serum 4.6 mmol/L [facility] 3.5-5.2 sodium, serum 143 mmol/L [facility] 573-673 5534/09 /08 urea nitrogen/creatinine ratio, serum 18 [facility] 10-24 eGFR if 99 mL/min/{1.73_ m2} [facility] >59 eGFR if not 85 mL/min/{1.73_ m2} [facility] >59 creatinine, serum 0.88 mg/dL [facility] 0.76-1.27 urea nitrogen, blood 16 mg/dL [facility] 8-27 blood glucose, random 118 mg/dL [facility] 65-99 High pro brain natriuretic peptide 284 pg/mL [facility] 0-376 microalbumin/creati nine ratio, urine 10.4 MG/G CREAT [facility] 0.0-30.0 microalbumin, random, urine 1.22 mg/dL [facility] Units converted. See lab report for original value. creatinine, random, urine 117.1 mg/dL [facility] Not Estab. ferritin, serum 58 ng/mL [facility] 30-400 iron saturation percent, serum 74 % [facility] 15-55 High iron, serum 238 ug/dL [facility] 38-169 High iron binding capacity, unsaturated 85 ug/dL [facility] 111-343 Low iron binding capacity, total 323 ug/dL [facility] [phone]/05 /10 hemoglobin A1C, blood, as % of total hemoglobin 6.7 % [facility] 4.8-5.6 High prothrombin time (patient) 13.1 s [facility] 9.1-12.0 High international normalized ratio (INR) 1.3 [facility] 0.8-1.2 High lipoprotein, beta, serum, point, quantitative, calculated 47 mg/dL [facility] 0-99 very low density lipoproteins 23 mg/dL [facility] 5-40 HDL cholesterol, serum 27 mg/dL [facility] >39 Low triglyceride, serum, random 114 mg/dL [facility] 0-149 cholesterol, serum 97 mg/dL [facility] 100-199 Low basophil count, absolute 0.0 x10E3/uL [facility] 0.0-0.2 Eosinophil Absolute Count 0.0 X10E3/UL [facility] 0.0-0.4 monocyte count, blood, automated 0.4 X10E3/UL [facility] 0.1-0.9 lymphocyte count, blood, automated 0.9 X10E3/UL [facility] 0.7-3.1 Absolute Neutrophils 3.7 X10E3/UL [facility] 1.4-7.0 basophils as percent of blood leukocytes 0 % [facility] Not Estab. eosinophils as percent of blood leukocytes 1 % [facility] Not Estab. monocytes as percent of blood leukocytes 8 % [facility] Not Estab. lymphocytes as percent of blood leukocytes 17 % [facility] Not Estab. neutrophils as percent of blood leukocytes 74 % [facility] Not Estab. platelet count 150 X10E3/UL [facility] 017-169 4636/05 /10 red blood cell distribution width 15.0 % [facility] 12.3-15.4 mean corpuscular hemoglobin concentration, RBC 33.0 G/DL [facility] 31.5-35.7 mean corpuscular hemoglobin, RBC 30.2 pg [facility] 26.6-33.0 mean corpuscular volume, RBC 91 fL [facility] 79-97 hematocrit, blood 42.7 % [facility] 37.5-51.0 hemoglobin, blood 14.1 g/dL [facility] 13.0-17.7 erythrocyte (RBC) count 4.67 X10E6/UL [facility] 4.14-5.80 leukocyte count, blood 5.0 X10E3/UL [facility] 3.4-10.8 alanine aminotransferase (SGPT), serum 19 1/L [facility] 0-44 aspartate aminotransferase (SGOT), serum 18 1/L [facility] 0-40 alkaline phosphatase, serum 84 1/L [facility] 39-117 bilirubin, serum, total 1.0 mg/dL [facility] 0.0-1.2 albumin/globulin ratio, serum 1.4 [facility] 1.2-2.2 globulin, serum 2.8 [facility] 1.5-4.5 albumin, serum 3.9 g/dL [facility] 3.5-4.8 protein, total, serum 6.7 g/dL [facility] 6.0-8.5 calcium, serum 10.2 mg/dL [facility] 8.6-10.2 carbon dioxide, venous blood 25 mmol/L [facility] 18-29 chloride, serum 101 mmol/L [facility] 96-106 potassium, serum 4.4 mmol/L [facility] 3.5-5.2 sodium, serum 141 mmol/L [facility] 195-869 3308/05 /10 urea nitrogen/creatinine ratio, serum 12 [facility] 10-24 eGFR if 84 mL/min/{1.73_ m2} [facility] >59 eGFR if not 73 mL/min/{1.73_ m2} [facility] >59 creatinine, serum 1.02 mg/dL [facility] 0.76-1.27 urea nitrogen, blood 12 mg/dL [facility] 8-27 blood glucose, random 115 mg/dL [facility] 65-99 High ferritin, serum 112.5 ng/mL [facility] 30.0 - 400.0 immature granulocytes, percentage of total cells, blood 0.2 % [facility] - nucleated red blood cells as percent of blood leukocytes 0.0 % [facility] - red blood cell (erythrocyte) count, per high power field 0.0 10*3/UL [facility] - eosinophils as percent of blood leukocytes 0.9 % [facility] - neutrophils as percent of blood leukocytes 70.2 % [facility] - Absolute Neutrophils 3.1 CELLS/UL [facility] 1.5 - 7.8 basophils as percent of blood leukocytes 0.5 % [facility] Basophils 0.0 CELLS/UL [facility] 0.0 - 0.2 monocytes as percent of blood leukocytes 8.6 % [facility] - Absolute Monocytes 0.4 CELLS/UL [facility] 0.2 - 1.0 lymphocytes as percent of blood leukocytes 19.6 % [facility] - Absolute Lymphocytes 0.9 CELLS/UL [facility] 0.9 - 3.9 mean platelet volume 11.0 (?) [facility] platelet count 145.0 THOUSAND/UL [facility] 100.0 - 400.0 mean corpuscular hemoglobin concentration, RBC 29.9 G/DL [facility] 31.0 - 38.0 Low mean corpuscular hemoglobin, RBC 27.3 pg [facility] 25.0 - 35.0 mean corpuscular volume, RBC 91.2 fL [facility] 75.0 - 100.0 hematocrit, blood 44.8 % [facility] 35.0 - 55.0 hemoglobin, blood 13.4 g/dL [facility] 11.5 - 16.5 erythrocyte count, whole blood 4.9 MILLION/UL [facility] 3.5 - 5.5 iron, serum 80.0 ug/dL [facility] 31.0 - 144.0 iron saturation percent, serum 23.1 % [facility] 20.0 - 50.0 iron binding capacity, total 345.8 ug[facility] - 450.0 folate, serum 17.6 NG/MLM [facility] 5.6 - 45.8 vitamin b12, serum 448.3 pg/mL [facility] 211.0 - 946.0 ferritin, serum 17.5 ng/mL [facility] 30.0 - 400.0 Low red blood cell distribution width, size density 44.9 fL [facility] - immature granulocytes, percentage of total cells, blood 0.2 % [facility] - nucleated red blood cells as percent of blood leukocytes 0.0 % [facility] - red blood cell (erythrocyte) count, per high power field 0.0 10*3/UL [facility] - eosinophils as percent of blood leukocytes 0.4 % [facility] neutrophils as percent of blood leukocytes 66.9 % [facility] Absolute Neutrophils 3.1 CELLS/UL [facility] 1.5 - 7.8 basophils as percent of blood leukocytes 0.6 % [facility] Basophils 0.0 CELLS/UL [facility] 0.0 - 0.2 monocytes as percent of blood leukocytes 8.7 % [facility] - Absolute Monocytes 0.4 CELLS/UL [facility] 0.2 - 1.0 lymphocytes as percent of blood leukocytes 23.2 % [facility] Lymphocytes 1.1 CELLS/UL [facility] 0.9 - 3.9 mean platelet volume 10.8 (?) [facility] - platelet count 221.0 THOUSAND/UL [facility] 100.0 - 400.0 mean corpuscular hemoglobin concentration, RBC 28.2 G/DL [facility] 31.0 - 38.0 Low mean corpuscular hemoglobin, RBC 21.1 pg [facility] 25.0 - 35.0 Low mean corpuscular volume, RBC 74.9 fL [facility] 75.[facility] - 100.0 Low hematocrit, blood 31.9 % [facility] 35.0 - 55.0 Low hemoglobin, blood 9.0 g/dL [facility] 11.5 - 16.5 Low erythrocyte count, whole blood 4.3 MILLION/UL [facility] 3.5 - 5.5 iron, serum 22.0 ug/dL [facility] 31.0 - 144.0 Low iron saturation percent, serum 4.5 % [facility] 20.0 - 50.0 Low iron binding capacity, total 488.6 ug/dL [facility] 250.0 - 450.0 High hemoglobin A1C, blood, as % of total hemoglobin 7.1 % [facility] 4.0 - 5.6 High free thyroxine index 8.6 ??g/dL [facility] 4.4 - 11.4 triiodothyronine uptake 1.0 TBI [facility] 0.8 - 1.3 thyroxine, serum, total 8.6 ??G/DL [facility] 4.5 - 11.7 thyroid stimulating hormone, serum 1.310 ??IU/ML [facility] 0.270 - 4.200 anion gap, serum 11.2 [facility] albumin/globulin ratio, serum 2.8 g/dL [facility] 1.1 - 2.5 High globulin, serum 2.4 [facility] 2.3 - 3.8 urea nitrogen/creatinine ratio, serum 14.0 [facility] - Estimated Glomerular Filtration Rate (calc) 78.3 (?) [facility] 59.0 - chloride, serum 105.8 mmol/L [facility] 98.0 - 107.0 potassium, serum 4.6 mmol/L [facility] 3.5 - 5.1 sodium, serum 145.0 mmol/L [facility] 136.0 - 145.0 creatinine, serum 1.0 mg/dL [facility] 0.7 - 1.2 carbon dioxide, venous blood 28.0 mmol/L [facility] 23.0 - 31.0 albumin, serum 4.3 g/dL [facility] 3.5 - 5.2 calcium, serum 9.9 mg/dL [facility] 8.6 - 10.2 aspartate aminotransferase (SGOT), serum 44.0 1/L [facility] 0.0 - 40.0 High alkaline phosphatase, serum 98.0 1/L [facility] 40.0 - 130.0 alanine aminotransferase (SGPT), serum 64.0 1/L [facility] 0.0 - 41.0 High protein, total, serum 6.7 g/dL [facility] 6.6 - 8.7 bilirubin, serum, total 1.1 mg/dL [facility] 0.0 - 1.2 urea nitrogen, blood 14.0 mg/dL [facility] 8.0 - 23.0 blood glucose, random 151.0 mg/dL [facility] 74.0 - 99.0 High vitamin b12, serum 617.1 pg/mL [facility] 211.0 - 946.0 folate, serum 17.4 NG/MLM [facility] 5.6 - 45.8 thyroid stimulating hormone, serum 2.500 ?IU/ML [facility] 0.270 - 4.200 red blood cell distribution width, size density 47.0 fL [facility] - immature granulocytes, percentage of total cells, blood 0.1 % [facility] - nucleated red blood cells as percent of blood leukocytes 0.0 % [facility] - red blood cell (erythrocyte) count, per high power field 0.0 10*3/UL [facility] - eosinophils as percent of blood leukocytes 0.4 % [facility] - neutrophils as percent of blood leukocytes 78.1 % [facility] - Absolute Neutrophils 5.6 CELLS/UL [facility] 1.5 - 7.8 basophils as percent of blood leukocytes 0.6 % [facility] - Absolute Basophils 0.0 CELLS/UL [facility] 0.0 - 0.2 monocytes as percent of blood leukocytes 8.0 % [facility] - Absolute Monocytes 0.6 CELLS/UL [facility] 0.2 - 1.0 lymphocytes as percent of blood leukocytes 12.8 % [facility] - Absolute Lymphocytes 0.9 CELLS/UL [facility] 0.9 - 3.9 mean platelet volume 10.3 (?) [facility] - platelet count 222.0 THOUSAND/UL [facility] 100.0 - 400.0 mean corpuscular hemoglobin concentration, RBC 32.0 G/DL [facility] 31.0 - 38.0 mean corpuscular hemoglobin, RBC 32.5 pg [facility] 25.0 - 35.0 mean corpuscular volume, RBC 101.5 fL [facility] 75.0 - 100.0 High hematocrit, blood 47.8 % [facility] 35.0 - 55.0 hemoglobin, blood 15.3 g/dL [facility] 11.5 - 16.5 erythrocyte count, whole blood 4.7 MILLION/UL [facility] 3.5 - 5.5 hemoglobin A1C, blood, as % of total hemoglobin 5.7 % [facility] 4.0 - 6.0 very low density lipoproteins 26.4 mg/dL [facility] 5.0 - 40.0 LDL/HDL (low-density lipoprotein/high-de nsity lipoprotein) ratio 3.4 RATIO [facility] - lipoprotein, beta, serum, point, quantitative, calculated 98.6 (?) [facility] - HDL cholesterol, serum 29.0 mg/dL [facility] 35.0 - 55.0 Low cholesterol, serum 154.0 mg/dL [facility] 0.0 - 200.0 triglyceride, serum, fasting 132.0 mg/dL [facility] 0.0 - 150.0 pro brain natriuretic peptide 155.8 pg/mL [facility] 0.0 - 125.0 High anion gap, serum 14.6 [facility] - albumin/globulin ratio, serum 2.5 g/dL [facility] 1.1 - 2.5 globulin, serum 3.2 [facility] 2.3 - 3.8 urea nitrogen/creatinine ratio, serum 19.1 [facility] - Estimated Glomerular Filtration Rate (calc) 70.1 (?) [facility] 59.0 - chloride, serum 101.4 mmol/L [facility] 98.0 - 107.0 potassium, serum 4.9 mmol/L [facility] 3.5 - 5.1 sodium, serum 142.0 mmol/L [facility] 136.0 - 145.0 creatinine, serum 1.1 mg/dL [facility] 0.7 - 1.2 carbon dioxide, venous blood 26.0 mmol/L [facility] 23.0 - 31.0 albumin, serum 4.3 g/dL [facility] 3.5 - 5.2 calcium, serum 10.6 mg/dL [facility] 8.6 - 10.2 High aspartate aminotransferase (SGOT), serum 20.0 1/L [facility] 0.0 - 40.0 alkaline phosphatase, serum 90.0 1/L [facility] 40.0 - 130.0 alanine aminotransferase (SGPT), serum 33.0 1/L [facility] 0.0 - 41.0 protein, total, serum 7.5 g/dL [facility] 6.6 - 8.7 urea nitrogen, blood 21.0 mg/dL [facility] 8.0 - 23.0 blood glucose, random 113.0 mg/dL [facility] 74.0 - 99.0 High bilirubin, serum, total 0.8 mg/dL [facility] 0.0 - 1.2 coagulation managed by Moreno Posada RN international normalized ratio (INR) 2.5 Moreno Posada RN Normal platelet count 145 10*3/mm3 [facility] hematocrit, blood 47.5 % [facility] triglyceride, serum, fasting 165 mg/dL [facility] HDL cholesterol, serum 28 mg/dL [facility] lipoprotein, beta, serum, point, quantitative, calculated 65 mg/dL [facility] cholesterol, serum 126 mg/dL [facility] alanine aminotransferase (SGPT), serum 21 1/L [facility] aspartate aminotransferase (SGOT), serum 23 1/L [facility] creatinine, serum 0.9 mg/dL [facility] potassium, serum 4.3 mmol/L [facility] sodium, serum 139 mmol/L [facility] platelet count 185 10*3/mm3 [facility] hematocrit, blood 45.1 % [facility] triglyceride, serum, fasting 86 mg/dL [facility] Yash HDL cholesterol, serum 33 mg/dL [facility] lipoprotein, beta, serum, point, quantitative, calculated 70.8 mg/dL [facility] cholesterol, serum 121 mg/dL [facility] alanine aminotransferase (SGPT), serum 24 1/L [facility] aspartate aminotransferase (SGOT), serum 15 1/L [facility] creatinine, serum 1.0 mg/dL [facility] potassium, serum 3.9 mmol/L [facility] sodium, serum 140 mmol/L [facility] triglyceride, serum, fasting 102 mg/dL [facility] HDL cholesterol, serum 22 mg/dL [facility] LDL cholesterol, serum 78 mg/dL [facility] cholesterol, serum 120 mg/dL [facility] platelet count 163 10*3/mm3 [facility] hematocrit, blood 51.2 % [facility] international normalized ratio (INR) 1.8 [facility] creatinine, serum 1.08 mg/dL [facility] potassium, serum 4.2 mmol/L [facility] sodium, serum 143 mmol/L [facility] platelet count 160 10*3/mm3 [facility] hematocrit, blood 47.7 % [facility] lipoprotein, beta, serum, point, quantitative, calculated 37 mg/dL [facility] cholesterol, serum 88 mg/dL [facility] thyroid stimulating hormone, serum 1.330 u[IU]/mL [facility] alanine aminotransferase (SGPT), serum 50 1/L [facility] aspartate aminotransferase (SGOT), serum 23 1/L [facility] creatinine, serum 0.96 mg/dL [facility] potassium, serum 4.1 mmol/L [facility] sodium, serum 143 mmol/L [facility] urate crystals, amorphous, urine, semiquantitative Many [facility] mucus on urinalysis Many [facility] leukocyte esterase, urine, by dipstick Negative [facility] urobilinogen, urine, semiquantitative (dipstick) 2.0 [facility] nitrite, urine, semiquantitative Negative [facility] RBC, urine, dipstick Negative [facility] bilirubin, urine Negative [facility] ketones, urine, by test strip Negative [facility] glucose, urine, semiquantitative Trace [facility] protein, urine, semiquantitative (dipstick) Trace [facility] pH, urine, semiquantitative 5.5 [facility] specific gravity, urine 1.024 [facility] urine color [place] [facility] appearance, urine Ex. Turbid [facility] prostate specific antigen <0.010 [facility] hemoglobin A1C, blood, as % of total hemoglobin 6.8 % [facility] triglyceride, serum, fasting 63 mg/dL [facility] HDL cholesterol, serum 32 mg/dL [facility] LDL cholesterol, serum 38 mg/dL [facility] cholesterol, serum 83 mg/dL [facility] Estimated Glomerular Filtration Rate (calc) 72.3 mL/min/{1.73_ m2} [facility] Yash protein, total, serum 6.8 g/dL [facility] albumin, serum 4.1 g/dL [facility] bilirubin, serum, total 1.6 mg/dL [facility] alkaline phosphatase, serum 87 1/L [facility] alanine aminotransferase (SGPT), serum 26 1/L [facility] aspartate aminotransferase (SGOT), serum 44 1/L [facility] calcium, serum 9.7 mg/dL [facility] blood glucose, fasting 122 mg/dL [facility] creatinine, serum 1.03 mg/dL [facility] urea nitrogen, blood 22 mg/dL [facility] carbon dioxide, serum, total 23 mmol/L [facility] chloride, serum 108 mmol/L [facility] potassium, serum 4.0 mmol/L [facility] sodium, serum 141 mmol/L [facility] platelet count 140 10*3/uL [facility] red blood cell distribution width 13.1 % [facility] mean corpuscular hemoglobin concentration, RBC 35.5 g/dL [facility] mean corpuscular hemoglobin, RBC 34.9 pg [facility] mean corpuscular volume, RBC 98.3 fL [facility] hematocrit, blood 44.9 % [facility] hemoglobin, blood 15.9 g/dL [facility] erythrocyte (RBC) count 4.57 10*6/mm3 [facility] monocyte count, blood 0.6 10*3/mm3 [facility] lymphocyte count, blood 1.7 10*3/mm3 [facility] monocytes as percent of blood leukocytes 9.8 % [facility] lymphocytes as percent of blood leukocytes 27.1 % [facility] leukocyte count, blood 6.2 10*3/mm3 [facility] alanine aminotransferase (SGPT), serum 30 1/L [facility]ST[facility] [employer] aspartate aminotransferase (SGOT), serum 28 1/L [facility] [employer] triglyceride, serum, fasting 200 mg/dL [facility] [employer] HDL cholesterol, serum 19 mg/dL [facility] [employer] cholesterol, serum 100 mg/dL [facility] [employer] triglyceride, target level 150 mg/dL CRYSTAL JESENICK [employer] HDL cholesterol, serum, target level 40 mg/dL CRYSTAL J[facility]ENICK [employer] LDL target level 70 mg/dL SUSIE ANDERSON [employer] cholesterol, target level 200 mg/dL SUSIE ANDERSON [employer] calcium, serum 10.0 mg/dL [facility] 8.6-10.2 Normal carbon dioxide, venous blood 24 mmol/L [facility] 21-33 Normal chloride, serum 107 mmol/L [facility] 98-110 Normal potassium, serum 4.4 mmol/L [facility] 3.5-5.3 Normal sodium, serum 143 mmol/L [facility] 135-146 Normal urea nitrogen/creatinine ratio, serum NOT APPLICABLE (calc) [facility] 6-22 Estimated Glomerular Filtration Rate (calc) >60 mL/min/1.73m2 [facility] > OR = 60 Normal creatinine, serum 1.07 mg/dL [facility] 0.76-1.46 Normal urea nitrogen, blood 16 mg/dL [facility] 7-25 Normal blood glucose, random 77 mg/dL [facility] 65-99 Normal thyroid stimulating hormone, serum 1.60 u[IU]/mL [facility] 0.40-4.50 Normal free thyroxine index 2.4 [facility] 1.4-3.8 Normal thyroxine, serum, total 6.8 ug/dL [facility] 4.5-12.5 Normal triiodothyronine resin uptake 35 % [facility] 22-35 Normal HISTORY OF MEDICATION USE Medication Status Instructions Dates Provider Indications Com ments Vascepa 1 gram capsule active TAKE 2 CAPSULES BY MOUTH TWICE A DAY DIRECTED Cassia Martel metformin 750 mg tablet extended release 24 hr active Take 1 tablet by mouth once a day Cassia Delonte cephalexin 250 mg capsule completed Take 1 capsule by mouth three times a day - Riley Pollock NP Jardiance 10 mg tablet active TAKE 1 TABLET BY MOUTH EVERY DAY Yoko Wei Kerendia 20 mg tablet active TAKE 1 TABLET BY MOUTH ONCE A DAY Albagibran Jade Jardiance 10 mg tablet completed - Bela Marcus carvedilol 25 mg tablet active TAKE 1 TABLET TWICE DAILY [facility] sotalol 120 mg tablet active TAKE 1 TABLET TWICE DAILY Pierce Singh metformin 750 mg tablet extended release 24 hr completed TAKE ONE TABLET BY MOUTH DAILY - Cassia Martel Vascepa 1 gram capsule completed TAKE 2 CAPSULES BY MOUTH TWICE A DAY - Cassia Martel Kerendia 20 mg tablet completed Take 1 tablet by mouth once a day - Alba Jade pantoprazole 40 mg tablet,delayed release (DR/EC) active TAKE 1 TABLET EVERY DAY Pierce Singh losartan 50 mg tablet active TAKE 1 TABLET TWICE DAILY Pierce Singh Eliquis 5 mg tablet active 1 tablet twice a day Rangel Slaughter MD FeroSul 325 mg (65 mg iron) tablet active TAKE ONE TABLET BY MOUTH ONCE DAILY Nicole Santiago atorvastatin 40 mg tablet active TAKE 1 TABLET EVERY DAY Alphonso Menjivar Jardiance 10 mg tablet completed Take 1 tablet by mouth once a day - Rangel Slaughter MD sotalol 120 mg tablet completed Take 1 tablet by mouth twice a day - Bela Marcus Correction metformin 750 mg tablet extended release 24 hr completed Take 1 tablet by mouth once a day - Rangel Slaughter MD Vitamin D3 50 mcg (2,000 unit) tablet active 1 once a day Rangel Slaughter MD carvedilol 25 mg tablet completed Take 1 tablet by mouth twice a day - Bela Marcus carvedilol 12.5 mg tablet completed 2 twice a day - Rangel Slaughter MD Coreg 12.5 mg tablet completed Take 1 tablet by mouth twice a day - Rangel Slaughter MD Coreg 6.25 mg tablet completed Take 1 tablet by mouth twice a day - Nancy Trevino NP Vascepa 1 gram capsule completed 2 capsule by mouth twice a day - Bethany Vanegas Coreg 6.25 mg tablet completed Take 1 tablet by mouth twice a day as directed - Nancy Trevino NP Metamucil unspecified unspecified active as needed for constipation Nancy Trevino NP Eliquis 5 mg tablet completed TAKE 1 TABLET TWICE DAILY - Stacy Hardenue FeroSul 325 mg (65 mg iron) tablet completed Take 1 tablet by mouth once a day - Daljit Monge OMEGA-3 FISH OIL CAPSULE completed - Rangel Slaughter MD VASCEPA 1 GM ORAL CAPSULE completed take two pills tiwce a day - Effie Friedman NP Eliquis 5 mg tablet completed one tablet twice daily - Brian Pascual losartan 50 mg tablet completed Take 1 tablet twice a day - Marci Burgos Vitamin B-12 1,000 mcg tablet active 1 tablet once a day Sabina Hunter VITAMIN D3 91365 UNIT ORAL TABLET completed Take 1 tablet by mouth once a week - Rangel Slaughter MD COZAAR 25 MG ORAL TABLET completed ONE TAB. DAILY - Sabina Hunter sotalol 120 mg tablet completed Take 1 tablet twice a day - Liseth Fuentes RN Correction LASIX 40 MG ORAL TABLET completed one a day - Sabina Hunter PRADAXA 150 MG ORAL CAPSULE completed One capsule twice a day. TAKE WITH LARGE GLASS OF WATER! - Marcella Batista AMIODARONE HCL 200 MG ORAL TABLET completed ONE TAB. DAILY - Rosario Fay MD Dose reduced pantoprazole 40 mg tablet,delayed release (/EC) completed Take 1 tablet once a day - Brian VELASCO-CON M20 completed ONCE DAILY - Sabina Hunter OXYCODONE-ACETAM INOPHEN 7.5-325 MG ORAL TABLET completed TAKE NEEDED - Sabina Hunter LORAZEPAM 1 MG ORAL TABLET completed once daily - Sammi Jerome COUMADIN 5 MG ORAL TABLET completed take 1 tab daily. (Stop Xaralto 2 days before starting it.) - Rangel Slaughter MD COZAAR 25 MG ORAL TABLET completed ONE TAB. DAILY - Cassia Martel lorazepam 1 mg tablet active Take 1 every night Rosario Fay MD HYZAAR 100-25 MG ORAL TABLET completed ONE TAB. DAILY - Rangel Slaughter MD SOTALOL HCL 120 MG ORAL TABLET completed ONE TAB. TWICE DAILY - Sammi Jerome magnesium oxide 400 mg magnesium tablet active once a day STOPPED BY DR. AMAURY [employer] Nancy Trevino NP CEPHALEXIN 500 MG ORAL CAPSULE completed one tablet four times aday - Klaudia Johnson CEPHALEXIN 500 MG ORAL CAPSULE completed one tablet 4 times a day - Klaudia Johnson XARELTO 20 MG ORAL TABLET completed One tab. daily - Judy Medina NEURONTIN 300 MG ORAL CAPSULE completed 1 cpsule by mouth 3 times daily - Moreno Posada RN LORAZEPAM 1 MG ORAL TABLET completed 1 tablet by mouth at bedtime as needed - Moreno Posada RN OXYCODONE-ACETAM INOPHEN 7.5-325 MG ORAL TABLET completed 1 tablet by mouth every 6 hours as needed - Moreno Posada RN ONDANSETRON 4 MG ORAL TABLET DISINTEGRATING completed every 6 hrs - Sander Tello AMBIEN 10 MG ORAL TABLET completed one tablet each night PRN for insomnia - Moreno Posada RN CARDIZEM CD 240 MG ORAL CAPSULE EXTENDED RELEASE 24 HOUR completed one daily - Rangel Slaughter MD DILTIAZEM HCL ER 240 MG ORAL CAPSULE EXTENDED RELEASE 24 HOUR completed at hs - Meme Tuttle AMIODARONE HCL 200 MG ORAL TABLET completed ONE TAB. DAILY in ama - Rosario Fay MD FLEXERIL 10 MG TABS completed one tablet each night PRN for back cramps - Meme Tuttle HYDROCODONE-ACET AMINOPHEN 5-500 MG ORAL TABLET completed as needed - Meme Tuttle XARELTO 20 MG ORAL TABLET completed One tab. daily - Sander Tello ALTACE 10 MG ORAL CAPSULE completed ONE TAB. DAILY - Rangel Slaughter MD atorvastatin 40 mg tablet completed Take 1 tablet once a day - Brian Pascual OMEGA-3 FISH OIL 1000 MG ORAL CAPSULE completed One tab. daily - Rangel Slaughter MD ASPIRIN 81 MG ORAL TABLET completed ONE TAB. DAILY - Rangel Slaughter MD ALTACE 10 MG ORAL CAPSULE completed ONE TAB. DAILY(changed 3/2) - Rangel Slaughter MD NIASPAN 1000 MG ORAL TABLET EXTENDED RELEASE completed TWO TABS. AT BEDTIME - Dispense as written (changed 32) - Rangel Slaughter MD CADUET 10-40 MG ORAL TABLET completed ONE TAB. DAILY(changed 3/2) - Rangel Slaughter MD ALTACE 10 MG ORAL CAPSULE completed ONE TAB. DAILY - Dami Melendez ZOCOR 80 MG ORAL TABLET completed ONE TAB. AT BEDTIME - SUSIE ANDERSON NP COUMADIN 5 MG ORAL TABLET completed daily - Rangel Slaughter MD MULTAQ 400 MG ORAL TABLET completed ONE TAB WITH MORNING MEAL. ONE TAB WITH EVENING MEAL. - Moreno Posada RN SOTALOL HCL 120 MG ORAL TABLET completed (hgher dose) ONE TAB. TWICE DAILY - Yvonne Flores RN TENORMIN 25 MG ORAL TABLET completed ONE TAB. DAILY to prevent atrial fib. - Sindy Lewis RN FISH OIL 1000 MG ORAL CAPSULE completed 1 tablet by mouth three times daily - Rangel Slaughter MD ASPIRIN 325 MG ORAL TABLET completed one tab daily - Rangel Slaughter MD glimepiride 2 mg tablet completed Take 1 tablet twice a day - Brian Pascual NORVASC 10 MG ORAL TABLET completed ONE TAB. DAILY - SUSIE ANDERSON NP LISINOPRIL 20 MG ORAL TABLET completed 1/2 TAB. DAILY - SUSIE ANDERSON NP SLO-NIACIN 750 MG ORAL TABLET EXTENDED RELEASE completed 2 TAB. DAILY - SUSIE ANDERSON NP SOCIAL HISTORY Date Observation Value Provider personal history of marijuana use no Nancy Trevino NP drug use no Nancy correa NP alcohol use no Nancy correa NP passive cigarette sm daniel exposure yes Nancy Trevino NP smoking, year quit 1982 Nancy Trevino NP number of years as a smoker 10 years or m ore Nancy Trevino NP smoking history, tot al pack/year 7.5 Nancy Trevino NP smoking history, tot al pack/day 1 pk Nancy Trevino NP cigarette use yes Nnacy palacio NP smoking status Former smoker Nancy Salazar iman [employer] Exercise counseling Yes Nancy Uriel [employer] personal history of marijuana use no Riley Adamereri [employer] drug use no Riley Adamereri [employer] alcohol use no Riley Bonareri [employer] passive cigarette sm daniel exposure yes Riley Adamereri [employer] smoking, year quit 1981 Riley Lofton areri [employer] number of years as a smoker 10 years or m ore iRley Adamereri [employer] smoking history, tot al pack/year 7.5 Riley Adamereri [employer] smoking history, tot al pack/day 1 pk Riley Adamereri [employer] cigarette use yes Riley Adamereri [employer] smoking status Former smoker Riley Adamere ri [employer] drug use no Francisco Carla alcohol use no Francisco Carla passive cigarette sm daniel exposure yes Francisco Carla smoking, year quit 1981 Francisco Silverio cari number of years as a smoker 10 years or m ore Francisco Carla smoking history, tot al pack/year 7.5 Francisco Carla smoking history, tot al pack/day 1 pk Francisco Carla cigarette use yes Francisco Jose i smoking status Former smoker Francisco Huddlestonin erica social history reviewed E&M revi ewed - no changes required Riley Adamereri [employer] social history E&M Marital Statu s: E thnicity: Smoking History: Khadra farrell is a former smoker. Riley Adamereri [employer] drug use no Riley Bonareri [employer] alcohol use no Riley Bonareri [employer] smoking status Former smoker Riley Adamere ri [employer] social history E&M Marital Statu s: E thnicity: Smoking History: P bud has never smoked. Rangel Slaughter MD social history reviewed E&M revi ewed - no changes required Rangel Slaughter MD smoking status Never smoker Jenni Mnier social history reviewed E&M revi ewed - no changes required Rangel Slaughter MD quit smoking, stage quit Rangel ibrahim MD social history E&M Marital Statu s: E thnicity: S moking History: P bud is a former smoker. Rangel Slaughter MD social history reviewed E&M revi ewed - no changes required Rangel Slaughter MD smoking history, tot al pack/day 1 pk Ana Andrade cigarette use yes Ana Cross s physical exercise, f requency, days per week yes Trysheridan Andrade caffeine use, averag e drinks per day 0 /d Trynett Andrade passive cigarette sm daniel exposure yes Trysheridan Andrade smoking status Former smoker Ana elizabeth physical exercise, f requency, days per week yes Nancy Kovacs caffeine use, averag e drinks per day 0 /d Nancybrea Kovacs passive cigarette sm daniel exposure yes Nancy Kovacs smoking status Former smoker Nancy Kovacs social history E&M Marital Statu s: E thnicity: Smoking History: P bud is a former smoker. Rangel Slaughter MD social history reviewed E&M revi ewed - no changes required Rangel Slaughter MD physical exercise, f requency, days per week yes Tonsha Cummins caffeine use, averag e drinks per day 0 /d Tonsha Cummins passive cigarette sm daniel exposure yes Tonsha Cummins smoking status Former smoker Tonsha Cummins social history E&M Marital Statu s: E thnicity: Smoking History: P atient is a former smoker. Rangel Slaughter MD social history reviewed E&M revi ewed - no changes required Rangel Slaughter MD physical exercise, f requency, days per week [facility], averag e drinks per day 0 /d Tons Cummins passive cigarette sm daniel exposure [facility] status [facility] smoker [facility] smoking status Former smoker Effie Jean Marie ha [employer] social history E&M Marital Statu s: E thnicity: Smoking History: Khadra farrell is a former smoker. Effie Friedman NP social history reviewed E&M revi ewed - no changes required Effie Friedman NP physical exercise, f requency, days per week yes Sabina Hunter alcohol use, average drinks per day none Sabina Torresenson alcohol use no Sabina Barrera nson caffeine use, averag e drinks per day 0 /d Effie Friedman NP drug use none Sabina Barrera nson passive cigarette sm daniel exposure yes Sabina Hunter quit smoking, stage quit Rangel ibrahim MD social history E&M Marital Statu s: E thnicity: Smoking History: Khadra farrell is a former smoker. Rangel Slaughter MD social history reviewed E&M revi ewed - no changes required Rangel Sluaghter MD physical exercise, f requency, days per week yes Sheryl Joan alcohol use, average drinks per day none Sheryl Joan alcohol use no Sheryl Joan caffeine use, averag e drinks per day no Sheryl Joan drug use none Sheryl Joan passive cigarette sm daniel exposure yes Sheryl Joan smoking status Former smoker Sheryl Joan social history reviewed E&M revi ewed - no changes required Jesus Reyes social history E&M Marital Statu s: E thnicity: Smoking History: P bud is a former smoker. Jesus Reyes physical exercise, f requency, days per week yes Arabella Hernandez alcohol use, average drinks per day none Rexford Hernandez alcohol use no Rexford caffeine use, averag e drinks per day no Rexford drug use none passive cigarette sm daniel exposure yes Rexford smoking status Former smoker Arabella [facility] social history reviewed E&M revi ewed - no changes required Jesus Reyes social history E&M Marital Statu s: E thnicity: Smoking History: P bud is a former smoker. Jesus Reyes physical exercise, f requency, days per week yes Sheryl Joan alcohol use, average drinks per day none Sheryl Joan alcohol use no Sheryl Joan caffeine use, averag e drinks per day no Sheryl Joan drug use none Sheryl Joan passive cigarette sm daniel exposure yes Sheryl Joan smoking status Former smoker Sheryl Joan social history E&M Marital Statu s: E thnicity: Smoking History: hKadra farrell is a former smoker. Rangel Slaughter MD social history reviewed E&M revi ewed - no changes required Rangel Slaughter MD physical exercise, f requency, days per week yes Sabina Hunter alcohol use, average drinks per day none Sabina Hunter alcohol use no Sabina harmon caffeine use, averag e drinks per day no Sabina Hunter drug use none Sabina lizarragaon passive cigarette sm daniel exposure yes Sabina Hunter smoking status Former smoker Sabina Grande quit smoking, stage quit Rangel ibrahim MD social history E&M Marital Statu s: E thnicity: Smoking History: P bud is a former smoker. Rangel Slaughter MD social history reviewed E&M revi ewed - no changes required Rangel Slaughter MD physical exercise, f requency, days per week yes Cassia Martel alcohol use, average drinks per day none Cassia Martel alcohol use no Cassia Radha [facility] caffeine use, averag e drinks per day no Cassia Martel drug use none Cassiaadelina Garcia [facility] passive cigarette sm daniel exposure yes Cassia Martel smoking status Former smoker Cassia wilkerson number of grandchildren Rosario Fay MD social history reviewed E&M revi ewed - no changes required Rosario Fay MD physical exercise, f requency, days per week yes Sabina Hunter alcohol use, average drinks per day none Sabina Hunter alcohol use no Sabina harmon caffeine use, averag e drinks per day no Sabina Hunter drug use none Sabina harmon passive cigarette sm daniel exposure yes Sabina Hunter smoking status Former smoker Sabina [facility] social history E&M Marital Statu s: E thnicity: Smoking History: P bud is a former smoker. Rosario Fay MD social history reviewed E&M revi ewed - no changes required Rosario Fay MD physical exercise, f requency, days per week yes Sabina Hunter alcohol use, average drinks per day none Sabina Hunter alcohol use no Sabina harmon caffeine use, averag e drinks per day no Sabina Hunter drug use none Sabina lizarragaon passive cigarette sm daniel exposure yes Sabina Hunter smoking status Former smoker Sabina Grande quit smoking, stage quit Rangel ibrahim MD smoking status Former smoker Rangel watts MD social history reviewed E&M revi ewed - no changes required Rangel Slaughter MD social history E&M Marital Statu s: E thnicity: Smoking History: Khadra farrell is a former smoker. Rangel Slaughter MD physical exercise, f requency, days per week yes SabinaRamona Hunter alcohol use, average drinks per day none Sabina Hunter alcohol use no Sabina Barrera eden caffeine use, averag e drinks per day no Sabina Hunter drug use none Sabina Barrera elhamon passive cigarette sm daniel exposure yes Sabina Hunter social history reviewed E&M revi ewed - no changes required Rosario Fay MD physical exercise, f requency, days per week yes Judy Medina alcohol use, average drinks per day none Judy Carol alcohol use no Judy Medina caffeine use, averag e drinks per day no Judy Medina drug use none Judy Medina passive cigarette sm daniel exposure yes Judy Medina smoking status Former smoker Judy Rosenbaummac gonzales social history reviewed E&M revi ewed - no changes required Rosario Fay MD physical exercise, f requency, days per week yes Sabina Hunter alcohol use, average drinks per day none Sabina Hunter alcohol use no Sabina Bruce harmon caffeine use, averag e drinks per day no Sabina Hunter drug use none Sabina harmon passive cigarette sm daniel exposure yes Sabina Hunter smoking status Former smoker Sabina Grande social history reviewed E&M revi ewed - no changes required Rosario Fay MD physical exercise, f requency, days per week yes Sabina Hunter alcohol use, average drinks per day none Sabina Hunter alcohol use no Sabina harmon caffeine use, averag e drinks per day no Sabina Hunter drug use none Sabina harmon passive cigarette sm daniel exposure yes Sabina Hunter smoking status Former smoker Sabina Grande quit smoking, stage quit Rangel ibrahim MD social history reviewed E&M revi ewed - no changes required Rangel Slaughter MD physical exercise, f requency, days per week yes Xochitl Horsey alcohol use, average drinks per day none Xochitl Horsey alcohol use no Xochitl Horsey caffeine use, averag e drinks per day no Xochitl Horsey drug use none Xochitl Horsey passive cigarette sm daniel exposure yes Xochitl Horsey smoking status Former smoker Xochitl Chow y social history E&M Marital Statu s: E thnicity: Smoking History: Khadra farrell is a former smoker. Khadra farrell has been counseled to quit. Rosario Fay MD physical exercise, f requency, days per week yes Rosario Fay MD alcohol use, average drinks per day none Rosario Fay MD alcohol use no Rosario hamlin MD caffeine use, averag e drinks per day no Rosario Fay MD drug use none Rosario hamlin MD smoking/tobacco cess ation, patient education and counseling yes Rosario Fay MD passive cigarette sm daniel exposure yes Rosario Fay MD smoking status Former smoker Rosario machado MD social history reviewed E&M revi ewed - no changes required Rosario Fay MD social history reviewed E&M revi ewed - no changes required Rosario Fay MD physical exercise, f requency, days per week yes Judy Medina alcohol use, average drinks per day none Judy [facility] alcohol use no Judy [facility] caffeine use, averag e drinks per day no Judy [facility] drug use none Judy [facility] passive cigarette sm daniel exposure yes Judy [facility] smoking/tobacco cess ation, patient education and counseling yes Judy [facility] smoking status Former smoker Judy Stoddard social history reviewed E&M revi ewed - no changes required Rosario Fay MD physical exercise, f requency, days per week yes Judy Riki alcohol use, average drinks per day none Judy Riki alcohol use no Judy Riki caffeine use, averag e drinks per day no Judy Riki drug use none Judy Riki passive cigarette sm daniel exposure yes Judy Riki smoking/tobacco cess ation, patient education and counseling yes Judy Riki smoking status Former smoker Judy Riki smoking/tobacco cess ation, patient education and counseling yes Rangel Slaughter MD social history reviewed E&M revi ewed - no changes required Rangel Slaughter MD alcohol use no Cassia Garcia lder smoking status Former smoker Cassia dohertyelder social history reviewed E&M revi ewed - no changes required Rosario Fay MD physical exercise, f requency, days per week yes Sabina Hunter alcohol use, average drinks per day none Sabina Hunter caffeine use, averag e drinks per day no Sabina Hunter drug use none Sabina harmon passive cigarette sm daniel exposure yes Sabina Hunter smoking/tobacco cess ation, patient education and counseling yes Sabina Hunter smoking status Former smoker Sabina Grande quit smoking, stage quit Rangel ibrahim MD social history reviewed E&M henrry ewed - no changes required Rangel Slaughter MD social history reviewed E&M henrry scott - no changes required Rosario Fay MD physical exercise, f requency, days per week yes Judy Medina alcohol use, average drinks per day none Judy Medina caffeine use, averag e drinks per day no Judy Medina drug use none Judy Medina passive cigarette sm daniel exposure yes Judy Medina smoking/tobacco cess ation, patient education and counseling yes Judy Medina smoking status Former smoker Judy gonzales quit smoking, stage quit Rangel ibrahim MD social history reviewed E&M reviewed Moreno Posada RN social history reviewed E&M reviewed Moreno Posada RN social history reviewed E&M reviewed Moreno Posada RN social history reviewed E&M reviewed Moreno Posada RN quit smoking, stage quit Rangel ibrahim MD social history reviewed E&M reviewed Rangel Slaughter MD social history reviewed E&M reviewed Moreno Posada RN social history reviewed E&M reviewed Moreno Posada RN smoking/tobacco cess ation, patient education and counseling yes Rosario Fay MD drug use none Rosario hamlin MD social history reviewed E&M reviewed Moreno Posada RN quit smoking, stage quit Rangel ibrahim MD social history reviewed E&M reviewed Moreno Posada RN drug use no Cassia Jeongfab moore passive cigarette sm daniel exposure yes Cassia Hamptonnav smoking history, tot al pack/year 7.5 Cassia Delonte smoking, year quit 1982 Cassia Lyle j luis smoking status former smoker Cassia Chase wilkerson quit smoking, stage quit Rangel ibrahim MD social history reviewed E&M reviewed Moreno Posada RN social history reviewed E&M reviewed SUSIE ANDERSON NP quit smoking, stage quit Rangel ibrahim MD social history reviewed E&M reviewed Moreno Posada RN social history reviewed E&M reviewed Moreno Posada RN social history reviewed E&M reviewed Moreno Posada RN social history reviewed E&M reviewed Moreno Posada RN social history reviewed E&M reviewed Moreno Posada RN social history reviewed E&M reviewed Moreno Posada RN social history E&M Marital Statu s: E thnicity: Rangel Slaughter MD social history reviewed E&M reviewed Rangel Slaughter MD physical exercise, f requency, days per week yes [employer] caffeine use, averag e drinks per day no [employer] alcohol use, average drinks per day none [employer] number of years as a smoker 10 years or m ore [employer] smoking status Quit [facility] FUNCTIONAL STATUS Date Observation Value Provider HRA, CV Assess/Plan, Angina (inactive) Management Plan continue current therapy Nancy Trevino NP HRA, CV Assess/Plan, Angina (inactive) Management Plan continue current therapy Riley Pollock NP HRA, CV Assess/Plan, Angina (inactive) Management Plan continue current therapy Francisco Huddlestoninari HRA, CV Assess/Plan, Angina (inactive) Management Plan continue current therapy Riley Pollock NP HRA, CV Assess/Plan, Angina (inactive) Management Plan continue current therapy Rangel Slaughter MD HRA, CV Assess/Plan, Angina (inactive) Management Plan continue current therapy Rangel Slaughter MD HRA, CV Assess/Plan, Angina (inactive) Management Plan continue current therapy Rangel Slaughter MD HRA, CV Assess/Plan, Angina (inactive) Management Plan continue current therapy Rangel Slaughter MD HRA, CV Assess/Plan, Angina (inactive) Management Plan continue current therapy Rangel Slaughter MD HRA, CV Assess/Plan, Angina (inactive) Management Plan continue current therapy Rangel Slaughter MD HRA, CV Assess/Plan, Angina (inactive) Management Plan continue current therapy Jesus Eric HRA, CV Assess/Plan, Angina (inactive) Management Plan continue current therapy Jesus Eric HRA, CV Assess/Plan, Angina (inactive) Management Plan continue current therapy Rangel Slaughter MD HRA, CV Assess/Plan, Angina (inactive) Management Plan continue current therapy Rangel Slaughter MD HRA, CV Assess/Plan, Angina (inactive) Management Plan continue current therapy Rosario Fay MD HRA, CV Assess/Plan, Angina (inactive) Management Plan continue current therapy Rosario Fay MD HRA, CV Assess/Plan, Angina (inactive) Management Plan continue current therapy Rangel Slaughter MD MENTAL STATUS Date Observation Value Provider assessment of judgme nt and insight E&M Alert and oriented to time, place and person. Mood and affect are normal. Moreno Posada RN assessment of judgme nt and insight E&M Alert and oriented to time, place and person. Mood and affect are normal. Moreno Posada RN assessment of judgme nt and insight E&M Alert and oriented to time, place and person. Mood and affect are normal. Moreno Posada RN assessment of judgme nt and insight E&M Alert and oriented to time, place and person. Mood and affect are normal. Moreno Posada RN assessment of judgme nt and insight E&M Alert and oriented to time, place and person. Mood and affect are normal. Rangel Slaughter MD assessment of judgme nt and insight E&M Alert and oriented to time, place and person. Mood and affect are normal. Moreno Posada RN assessment of judgme nt and insight E&M Alert and oriented to time, place and person. Mood and affect are normal. Rosario Fay MD assessment of judgme nt and insight E&M Alert and oriented to time, place and person. Mood and affect are normal. Moreno Posada RN assessment of judgme nt and insight E&M Alert and oriented to time, place and person. Mood and affect are normal. Moreno Posada RN assessment of judgme nt and insight E&M Alert and oriented to time, place and person. Mood and affect are normal. Moreno Posada RN assessment of judgme nt and insight E&M Alert and oriented to time, place and person. Mood and affect are normal. Moreno Posada RN assessment of judgme nt and insight E&M Alert and oriented to time, place and person. Mood and affect are normal. SUSIE ANDERSON NP assessment of judgme nt and insight E&M Alert and oriented to time, place and person. Mood and affect are normal. Moreno Posada RN assessment of judgme nt and insight E&M Alert and oriented to time, place and person. Mood and affect are normal. Moreno Posada RN assessment of judgme nt and insight E&M Alert and oriented to time, place and person. Mood and affect are normal. Moreno Posada RN assessment of judgme nt and insight E&M Alert and oriented to time, place and person. Mood and affect are normal. Moreno Posada RN assessment of judgme nt and insight E&M Alert and oriented to time, place and person. Mood and affect are normal. Moreno Posada RN assessment of judgme nt and insight E&M Alert and oriented to time, place and person. Mood and affect are normal. Moreno Posada RN assessment of judgme nt and insight E&M Alert and oriented to time, place and person. Mood and affect are normal. Rangel Slaughter MD FAMILY HISTORY Family Member Condition Father Family History of CV A or Stroke: Mother Family History of Di abetes: INSURANCE PROVIDERS Payer name Policy type / Coverage type [place] red democrat ID [facility] [id number] [place] Medicare [id number] ADVANCE DIRECTIVES Name Date DISCUSSED - NO DECISION MADE TREATMENT PLAN Date Name Performer [id number],C,ef 60 pro 239 Rangel Slaughter MD [id number],C,On Vit D supp lements Riley Pollock NP [id number],C, H is updated medication list for this problem includes: Atorvastatin 40 Mg Tablet (Atorvastatin) ..... Take 1 tablet every day Vascepa 1 Gram Capsule (Icosapent ethyl) ..... Take 2 capsules by mouth twice a day Riley Pollock NP [id number],C,M anaged per PCP. H is updated medication list for this problem includes: Metformin 750 Mg Tablet Extended Release 24 Hr (Metformin) ..... Take one tablet by mouth daily Losartan 50 Mg Tablet (Losartan) ..... Take 1 tablet twice daily Riley Pollock NP [id number],C, H is updated medication list for this problem includes: Atorvastatin 40 Mg Tablet (Atorvastatin) ..... Take 1 tablet every day Vascepa 1 Gram Capsule (Icosapent ethyl) ..... Take 2 capsules by mouth twice a day Riley Pollock NP [id number],C,E KG in office today V-paced. On OAC, denies having any bleeding issues/concerns. His updated medication list for this problem includes: Carvedilol 25 Mg Tablet (Carvedilol) ..... Take 1 tablet twice daily Sotalol 120 Mg Tablet (Sotalol) ..... Take 1 tablet twice daily Rilye Pollock JOHNNIE [id number],C,W ill repeat Echo in 07/2023 C ONCLUSIONS: Echo 06/2022 1 . Abnormal septal motion consistent with pacemaker or ICD implant . Normal left ventricular systolic function. Normal left v entricular size. Normal left ventricular wall thickness. There is E to A wave reversal consistent with impaired LV relaxation. E /E': 10.1 Left ventricular ejection fraction is measured at 60 %. 2 . Normal right ventricular size. Normal right ventricular systolic function. Linear artifact seen in the right ventricle is s uggestive of a catheter, pacer lead, or ICD lead. 3 . The right atrium is normal in size. Linear artifact in right atrium suggestive of catheter, pacer lead, or ICD lead. 4 . Mildly thickened aortic valve leaflets. Velocities, as well as gradients across the aortic valve are normal. No evidence of a ortic insufficiency. H is updated medication list for this problem includes: Carvedilol 25 Mg Tablet (Carvedilol) ..... Take 1 tablet twice daily Sotalol 120 Mg Tablet (Sotalol) ..... Take 1 tablet twice daily Losartan 50 Mg Tablet (Losartan) ..... Take 1 tablet twice daily Riley Pollock JOHNNIE [id number],C,R PM Avg BP 121/73, HR 81 H is updated medication list for this problem includes: Carvedilol 25 Mg Tablet (Carvedilol) ..... Take 1 tablet twice daily Sotalol 120 Mg Tablet (Sotalol) ..... Take 1 tablet twice daily Losartan 50 Mg Tablet (Losartan) ..... Take 1 tablet twice daily Riley Pollock JOHNNIE [id number],C,Patient is on statin Riley Wilderadelina BLAIR [id number],C,D evice check 11/28/22 A T/AF Raven: 0.0% % Pacing: RA - 98.0% RV - 100.0% LV - 100.0% B attery 90% Riley Pollock BONE GLUE MAKER [id number],C, H is updated medication list for this problem includes: Carvedilol 25 Mg Tablet (Carvedilol) ..... Take 1 tablet twice daily Sotalol 120 Mg Tablet (Sotalol) ..... Take 1 tablet twice daily Riley Pollock BONE GLUE MAKER [id number],S, H is updated medication list for this problem includes: Atorvastatin 40 Mg Tablet (Atorvastatin) ..... Take 1 tablet every day Vascepa 1 Gram Capsule (Icosapent ethyl) ..... 2 capsule by mouth twice a day C HOL: 103 (04/17/2018) HDL: 26 (04/17/2018) CHOL (goal): 200 (10/09/2010) LDL (goal): 70 (10/09/2010) HDL (goal): 40 (10/09/2010) TG (goal): 150 (10/09/2010) Rangel Slaughter MD [id number],S, Rangel watts MD [id number],S, n o angina. last cath 2018 grafts open Rangel Slaughter MD [id number],B, Rangel watts MD [id number],S, n o recurrence. device interrogation 04/17/21 no AF, 17 mode switches, battery ok.\ Rangel Slaughter MD [id number],S,too have suer gy Rangel Slaughter MD [id number],B, Rangel watts MD [id number],S, fu zerot psa Rangel Slaughter MD [id number],S, Rangel watts MD [id number],C,74 Rangel conrad MD [id number],B,7 Rangel wise MD [id number],S, r a set 80, biv 100 Rangel Slaughter MD [id number],S, 9 Rangel Serota [id number],B, fu zerot psa Rangel Serota [id number],B, Rangel Serot a [id number],C, n eg uacr, neg hiv n eg sleep, neg aaa, ne ror n eg pft and tsh Rangel Serota [id number],S, Rangel Serota [id number],B, c orredct with iv does not want colon Rangel Serota [id number],S, Rangel Serot a [id number],B, Rangel Serot a [id number],S, e f 60 490 pro Rangel Serota [id number],B, 2 3 Rangel Serota [id number],S, Rangel Serota [id number],S, n o angina. last cath 2018 grafts open Rangel Serota [id number],S, n o angina. last cath 2018 grafts open Rangel Serota [id number],S, r a set 80, biv 100 Rangel Serota [id number],S,23 Rangel Ser anamaria [id number],S,fu zerot psa Rangel Serota [id number],S, Rangel Serot a [id number],B,9 Rangel Sero ta [id number],B,ra set 80, bi v 100 Rangel Serota [id number],S, n eg uacr, neg hiv n eg sleep, neg aaa, ne ror n eg pft and tsh Rangel Slaughter MD [id number],S,ef 60 490 pro Rangel Slaughter MD [id number],S, c orredct with iv does not want colon Rangel Slaughter MD [id number],B, H is updated medication list for this problem includes: Vascepa 1 Gram Capsule (Icosapent ethyl) ..... 2 capsule by mouth twice a day Atorvastatin 40 Mg Tablet (Atorvastatin) ..... Take 1 tablet once a day C HOL: 103 (04/17/2018) HDL: 26 (04/17/2018) CHOL (goal): 200 (10/09/2010) LDL (goal): 70 (10/09/2010) HDL (goal): 40 (10/09/2010) TG (goal): 150 (10/09/2010) Rangel Slaughter MD [id number],B, Rangel watts MD [id number],C,follows with PCP Nancy Trevino NP [id number],C,last device c heck 04/2021 no afib Nancy Trevino NP [id number],C, l ast echo 11/2019 EF 65% diastolic dysfunction Nancy Trevino NP [id number],C,B P today 160/90. pt states that at home he runs 130's-140's Nancy Trevino NP [id number],C, l ast device check 04/17/2021 normal function, no AF. 17 mode switches, battery ok 2yrs, 1 month. Nancy Trevino NP [id number],C,n o angina. last cath 2018 grafts open Nancy Trevino NP [id number],C,09/2020 LFTs n ormal Nancy Trevino NP [id number],C,o n supplementation Nancy Trevino BONE GLUE MAKER [id number],C,n o recurrence. device interrogation 04/17/21 no AF, 17 mode switches, battery ok. 2 yrs/1 month Nancy Trevino BONE GLUE MAKER [id number],C,: chol 124, trig 214, HDL 28, LDL 53. pt states that he has not been taking vascepa Nancy Trevino BONE GLUE MAKER Take your medication s every day as directed. Failing to take your medication properly can have a negative impact on your treatment. Please monitor your blood pressure and heart rate regularly, at least weekly. Sit quietly for 5 minutes before taking your blood pressure and heart rate. Recommend a healthy diet plan which would include lots of vegetables and fruits, poultry and fish, low fat dairy products. It would include lower quantities of carbohydrates, like breads, potatoes, rice and pasta. Only small amounts of sweets should be included. Recommend a low salt, or no added salt diet. Exercise of at least 3 times a week is recommended. Even small amounts of exercise regularly can be less intimidating but still beneficial. Please contact us if you have new Chest Pain, Shortness of Breath, Palpitations, Dizziness, or Edema. Dinah Lynsey Electrophysiology:no new events on last remote check O n Eliquis for OAC with no bleeding issues/concerns s /p ppm Nancy Trevino BONE GLUE MAKER Electrophysiology: B P today: 132/70 P rior BP: 120/70 (09/02/2023) Prior 10 Yr Risk Heart Disease: N/A (10/09/2010) Labs Reviewed: C reat: 1.11 (07/17/2023) C hol: 103 (04/17/2018) HDL: 26 (04/17/2018) LDL: 32 (04/17/2018) T (04/17/2018) His updated medication list for this problem includes: Sotalol 120 Mg Tablet (Sotalol) ..... Take 1 tablet twice daily Losartan 50 Mg Tablet (Losartan) ..... Take 1 tablet twice daily Carvedilol 25 Mg Tablet (Carvedilol) ..... Take 1 tablet twice daily Nancy Trevino JOHNNIE Electrophysiology:see #1 Reji Trevino JOHNNIE Electrophysiology:no recurrence n o new events on last remote check WIILL CHECK LABS IN 6 MONTHS E CHO IN 1 YEAR H is updated medication list for this problem includes: Sotalol 120 Mg Tablet (Sotalol) ..... Take 1 tablet twice daily Carvedilol 25 Mg Tablet (Carvedilol) ..... Take 1 tablet twice daily Nancy Trevino JOHNNIE Cardiology: H is updated medication list for this problem includes: Vascepa 1 Gram Capsule (Icosapent ethyl) ..... Take 2 capsules by mouth twice a day as directed Atorvastatin 40 Mg Tablet (Atorvastatin) ..... Take 1 tablet every day Riley Pollock JOHNNIE Cardiology: R PMAvg BP 117/68, HR 77 BP today: 120/70 P rior BP: 110/70 (12/11/2022) His updated medication list for this problem includes: Sotalol 120 Mg Tablet (Sotalol) ..... Take 1 tablet twice daily Losartan 50 Mg Tablet (Losartan) ..... Take 1 tablet twice daily Carvedilol 25 Mg Tablet (Carvedilol) ..... Take 1 tablet twice daily Riley Pollock JOHNNIE Cardiology: O n Eliquis for OAC with no bleeding issues/concerns s /p ppm Riley Wilderadelina BLAIR Cardiology: e f 60 pro 239 Clinically appears compensated Riley Pollock BONE GLUE MAKER Cardiology: N o angina His updated medication list for this problem includes: Sotalol 120 Mg Tablet (Sotalol) ..... Take 1 tablet twice daily Carvedilol 25 Mg Tablet (Carvedilol) ..... Take 1 tablet twice daily Riley Pollock JOHNNIE Electrophysiology wo und check : e f 60 pro 239 His updated medication list for this problem includes: Losartan 50 Mg Tablet (Losartan) ..... Take 1 tablet twice daily Carvedilol 25 Mg Tablet (Carvedilol) ..... Take 1 tablet twice daily Sotalol 120 Mg Tablet (Sotalol) ..... Take 1 tablet twice daily Francisco Huddlestoninari Electrophysiology wo und check : H is updated medication list for this problem includes: Vascepa 1 Gram Capsule (Icosapent ethyl) ..... Take 2 capsules by mouth twice a day as directed Atorvastatin 40 Mg Tablet (Atorvastatin) ..... Take 1 tablet every day Francisco Huddlestoninari Electrophysiology wo und check : H is updated medication list for this problem includes: Carvedilol 25 Mg Tablet (Carvedilol) ..... Take 1 tablet twice daily Sotalol 120 Mg Tablet (Sotalol) ..... Take 1 tablet twice daily Francisco Carla :still anemia after iv iron did not want Rangel mederos MD Telehealth: s cheduled for gen change on 07/23 p rocchet discussed with and explained to patient Kaveh Dao :ef 60 pro 239 Rangel Slaughter MD Cardiology-seen with BONE GLUE MAKER:On Vit D supplements Riley Pollock NP Cardiology-seen with BONE GLUE MAKER: H is updated medication list for this problem includes: Atorvastatin 40 Mg Tablet (Atorvastatin) ..... Take 1 tablet every day Vascepa 1 Gram Capsule (Icosapent ethyl) ..... Take 2 capsules by mouth twice a day Riley Pollock NP Cardiology-seen with BONE GLUE MAKER:Managed per PCP. H is updated medication list for this problem includes: Metformin 750 Mg Tablet Extended Release 24 Hr (Metformin) ..... Take one tablet by mouth daily Losartan 50 Mg Tablet (Losartan) ..... Take 1 tablet twice daily Riley Pollock NP Cardiology-seen with BONE GLUE MAKER: H is updated medication list for this problem includes: Atorvastatin 40 Mg Tablet (Atorvastatin) ..... Take 1 tablet every day Vascepa 1 Gram Capsule (Icosapent ethyl) ..... Take 2 capsules by mouth twice a day Riley Pollock NP Cardiology-seen with BONE GLUE MAKER:EKG in office today V-paced. On OAC, denies having any bleeding issues/concerns. His updated medication list for this problem includes: Carvedilol 25 Mg Tablet (Carvedilol) ..... Take 1 tablet twice daily Sotalol 120 Mg Tablet (Sotalol) ..... Take 1 tablet twice daily Riley Pollock NP Cardiology-seen with BONE GLUE MAKER:Will repeat Echo in 07/2023 C ONCLUSIONS: Echo 06/2022 1 . Abnormal septal motion consistent with pacemaker or ICD implant . Normal left ventricular systolic function. Normal left v entricular size. Normal left ventricular wall thickness. There is E to A wave reversal consistent with impaired LV relaxation. E /E': 10.1 Left ventricular ejection fraction is measured at 60 %. 2 . Normal right ventricular size. Normal right ventricular systolic function. Linear artifact seen in the right ventricle is s uggestive of a catheter, pacer lead, or ICD lead. 3. The right atrium is normal in size. Linear artifact in right atrium suggestive of catheter, pacer lead, or ICD lead. 4 . Mildly thickened aortic valve leaflets. Velocities, as well as gradients across the aortic valve are normal. No evidence of a ortic insufficiency. H is updated medication list for this problem includes: Carvedilol 25 Mg Tablet (Carvedilol) ..... Take 1 tablet twice daily Sotalol 120 Mg Tablet (Sotalol) ..... Take 1 tablet twice daily Losartan 50 Mg Tablet (Losartan) ..... Take 1 tablet twice daily Riley Pollock NP Cardiology-seen with BONE GLUE MAKER:RPM Avg BP 121/73, HR 81 H is updated medication list for this problem includes: Carvedilol 25 Mg Tablet (Carvedilol) ..... Take 1 tablet twice daily Sotalol 120 Mg Tablet (Sotalol) ..... Take 1 tablet twice daily Losartan 50 Mg Tablet (Losartan) ..... Take 1 tablet twice daily Riley Pollock NP Cardiology-seen with BONE GLUE MAKER:Patient is on statin Riley Pollock NP Cardiology-seen with BONE GLUE MAKER:Device check 11/28/22 A T/AF Raven: 0.0% % Pacing: RA - 98.0% RV - 100.0% LV - 100.0% B attery 90% Riley Pollock NP Cardiology-seen with BONE GLUE MAKER: H is updated medication list for this problem includes: Carvedilol 25 Mg Tablet (Carvedilol) ..... Take 1 tablet twice daily Sotalol 120 Mg Tablet (Sotalol) ..... Take 1 tablet twice daily Riley Pollock NP Cardiology: H is updated medication list for this problem includes: Atorvastatin 40 Mg Tablet (Atorvastatin) ..... Take 1 tablet every day Vascepa 1 Gram Capsule (Icosapent ethyl) ..... 2 capsule by mouth twice a day C HOL: 103 (04/17/2018) HDL: 26 (04/17/2018) CHOL (goal): 200 (10/09/2010) LDL (goal): 70 (10/09/2010) HDL (goal): 40 (10/09/2010) TG (goal): 150 (10/09/2010) Rangel Slaughter MD Cardiology Rangel Slaughter MD Cardiology: n o angina. last cath 2018 grafts open Rangel Slaughter MD Cardiology Rangel Slaughter MD Cardiology: n o recurrence. device interrogation 04/17/21 no AF, 17 mode switches, battery ok.\ Rangel Slaughter MD Cardiology:too have suergy Chanda Slaughter MD Cardiology Rangel Slaughter MD Cardiology: fu zerot psa Rangel Slaughter MD Cardiology Rangel Slaughter MD Cardiology:74 Rangel Slaughter MD Cardiology:7 Rangel Slaughter MD Cardiology: r a set 80, biv 100 Rangel Slaughter MD Cardiology: 9 Rangel Slaughter MD Cardiology: fu zerot psa Rangel Slaughter MD Cardiology Rangel Slaughter MD Cardiology: n eg uacr, neg hiv n eg sleep, neg aaa, ne ror n eg pft and tsh Rangel Slaughter MD Cardiology Rangel Slaughter MD Cardiology: c orredct with iv does not want colon Rangel Slaughter MD Cardiology Rangel Slaughter MD Cardiology Rangel Slaughter MD Cardiology: e f 60 490 pro Rangel Slaughter MD Cardiology: 2 3 Rangel Slaughter MD Cardiology Rangel Slaughter MD Cardiology: n o angina. last cath 2018 grafts open Rangel Slaughter MD Cardiology: n o angina. last cath 2018 grafts open Ranegl Slaughter MD Cardiology: r a set 80, biv 100 Rangel Slaughter MD TeleHealth:23 Rangel Slaughter MD TeleHealth:fu zerot psa Rangel ibrahim MD TeleHealth Rangel Slaughter MD TeleHealth:9 Rangel Slaughter MD TeleHealth:ra set 80, biv 100 Jones rosa elena Slaughter MD TeleHealth: n eg uacr, neg hiv n eg sleep, neg aaa, ne ror n eg pft and tsh Rangel Slaughter MD TeleHealth:ef 60 490 pro Rangel Slaughter MD TeleHealth: c orredct with iv does not want colon Rangel Slaughter MD TeleHealth: H is updated medication list for this problem includes: Vascepa 1 Gram Capsule (Icosapent ethyl) ..... 2 capsule by mouth twice a day Atorvastatin 40 Mg Tablet (Atorvastatin) ..... Take 1 tablet once a day C HOL: 103 (04/17/2018) HDL: 26 (04/17/2018) CHOL (goal): 200 (10/09/2010) LDL (goal): 70 (10/09/2010) HDL (goal): 40 (10/09/2010) TG (goal): 150 (10/09/2010) Rangel Slaughter MD TeleHealth Rangel Slaughter MD Cardiology:follows with PCP Emily Trevino NP Cardiology:last device check 04/11 no afib Nancy Trevino [employer] Cardiology: l ast echo 11/2019 EF 65% diastolic dysfunction Nancy Trevino [employer] Cardiology:BP today 160/90. pt states that at home he runs 130's-140's Nancy Trevino [employer] Cardiology: l ast device check 04/17/2021 normal function, no AF. 17 mode switches, battery ok 2yrs, 1 month. Nacny Trevino [employer] Cardiology:no angina . last cath 2018 grafts open Nancy Trevino [employer] Cardiology:09/2020 LFTs normal Je wild Trevino [employer]ER Cardiology:on supple mentation Nancy Trevino JOHNNIE Cardiology:no recurr ence. device interrogation 04/17/21 no AF, 17 mode switches, battery ok. 2 yrs/1 month Nancy Trevino JOHNNIE Cardiology:09/2020: c hol 124, trig 214, HDL 28, LDL 53. pt states that he has not been taking vascepa Nancy Kesslersunny BLAIR Cardiology:per primary Effie fernandez NP Cardiology:last echo 11/2019 EF 65% diastolic dysfunction Effie Elder BLAIR Cardiology:LDL 53 His updated medication list for this problem includes: Vascepa 1 Gm Oral Capsule (Icosapent ethyl) ..... 2 capsules by mouth twice daily --gwen! universal coupon code: bin# [id number], pcn# [id number], grp# [id number], id# [id number] Atorvastatin Tab 40mg Tablet (Atorvastatin calcium) ..... Take one tablet by mouth daily Effie Friedman NP Cardiology: H is updated medication list for this problem includes: Chlorthalidone 25 Mg Oral Tablet (Chlorthalidone) ..... One tab. daily Losartan Potassium 50 Mg Tablet (Losartan potassium) ..... Take 1 tablet twice daily Sotalol Hcl 120 Mg Oral Tablet (Sotalol hcl) ..... One tab. twice daily Metoprolol Tar 25mg Tab 25.000 Mg Tablet (Metoprolol tartrate) ..... Take one tablet by mouth twice a day Effie Friedman [employer] Cardiology:last yvan ce check 09/27/2020 normal function, 100 % dependent RV and LV. Effie Friedman [employer] Cardiology Effie Friedman [employer] Cardiology: H is updated medication list for this problem includes: Chlorthalidone 25 Mg Oral Tablet (Chlorthalidone) ..... One tab. daily Losartan Pot Tab 50mg Tablet (Losartan potassium) ..... Take one tablet by mouth twice a day Sotalol Hcl 120 Mg Oral Tablet (Sotalol hcl) ..... One tab. twice daily Metoprolol Tar 25mg Tab 25.000 Mg Tablet (Metoprolol tartrate) ..... Take one tablet by mouth twice a day BP today: 138/81 P rior BP: 166/96 (10/05/2019) Prior 10 Yr Risk Heart Disease: N/A (10/09/2010) Labs Reviewed: C reat: 0.96 (10/27/2018) C hol: 103 (04/17/2018) HDL: 26 (04/17/2018) Rangel Slaughter MD Cardiology Rangel Slaughter MD Cardiology: 6 .7 Rangel Slaughter MD Cardiology Rangel Slaughter MD Cardiology Rangel Slaughter MD Cardiology: o ff amio now, and resolveid Rangel Slaughter MD Cardiology: c orredct with hiv does not want colon Rangel Slaughter MD Cardiology Rangel Slaughter MD Cardiology: n ot seen lately Rangel Slaughter MD Cardiology: 4 90, ef 60 Rangel Slaughter MD Cardiology:ef noraml B IV 100% r a at 80 Rangel Slaughter MD Cardiology:not seen lately Chanda Slaughter MD Cardiology: H is updated medication list for this problem includes: Atorvastatin Tab 40mg Tablet (Atorvastatin calcium) ..... Take one tablet by mouth every day C HOL: 103 (04/17/2018) HDL: 26 (04/17/2018) CHOL (goal): 200 (10/09/2010) LDL (goal): 70 (10/09/2010) HDL (goal): 40 (10/09/2010) TG (goal): 150 (10/09/2010) Rangel Slaughter MD Cardiology Rangel Slaughter MD Cardiology:nml pft Rangel Slaughter MD Cardiology Rangel Slaughter MD Cardiology: a ll open 07/2018 for complete, neg nuc 18/ Rangel Slaughter MD Cardiology: m ild with trace ai Rangel Slaughter MD Cardiology: H is updated medication list for this problem includes: Chlorthalidone 25 Mg Oral Tablet (Chlorthalidone) ..... One tab. daily Losartan Pot Tab 50mg Tablet (Losartan potassium) ..... Take one tablet by mouth twice a day Sotalol Hcl 120 Mg Oral Tablet (Sotalol hcl) ..... One tab. twice daily Metoprolol Tartrate 25 Mg Oral Tablet (Metoprolol tartrate) ..... One tab. twice daily BP today: 166/96 P rior BP: 166/82 (11/17/2018) Prior 10 Yr Risk Heart Disease: N/A (10/09/2010) Labs Reviewed: C reat: 0.96 (10/27/2018) C hol: 103 (04/17/2018) HDL: 26 (04/17/2018) Rangel Slaughter MD Cardiology: c orredct with hiv does not want colon Rangel Slaughter MD Cardiology:390, ef 60 Rangel conrad MD Cardiology:neg uacr, neg hiv n eg sleep, neg aaa, ne ror n eg pft and tsh Rangel Slaughter MD Cardiology:6.7 Rangel Slaughter MD Cardiology: B IV 100% r a at 80 Rangel Slaughter MD Cardiology follow up Rangel wise MD Cardiology follow up:does not wq ant diet pills Rangel Slaughter MD Cardiology follow up : m ay be low againg does not want colon Rangel Slaughter MD Cardiology follow up:6.5, nml au cr Rangel Slaughter MD Cardiology follow up:319 Rangel Slaughter MD Cardiology follow up:mild with t race ai Rangel Slaughter MD Cardiology follow up :all open 07/2018 for complete, neg nuc 18/ Rangel Slaughter MD Cardiology follow up : B IV 100% r a at 80 Rangel Slaughter MD Cardiology follow up :neg sleep, neg aaa n eg pft and tsh Rangel Slaughter MD Electrophysiology:Or ders: 9 9214 MOD Complex (CPT-07701) His updated medication list for this problem includes: Sotalol Hcl 120 Mg Oral Tablet (Sotalol hcl) ..... One tab. twice daily Metoprolol Tartrate 25 Mg Oral Tablet (Metoprolol tartrate) ..... One tab. twice daily Jesus Reyes Electrophysiology:Or ders: F VC - 62997 (91814) F RC - 90013 (37813) D LCO - 12074 (99255) 9 9214 MOD Complex (CPT-30589) His updated medication list for this problem includes: Cozaar 50 Mg Oral Tablet (Losartan potassium) ..... One tab. daily Sotalol Hcl 120 Mg Oral Tablet (Sotalol hcl) ..... One tab. twice daily Metoprolol Tartrate 25 Mg Oral Tablet (Metoprolol tartrate) ..... One tab. twice daily Jesus Eric Electrophysiology:Farrukh khalil is s/p cardiac cath 04/21/[address] Jernigan. EF 55-60%. No BiV ICD upgrade recommended. O rders: E KG (CPT-96898) 9 9214 MOD Complex (CPT-77817) His updated medication list for this problem includes: Sotalol Hcl 120 Mg Oral Tablet (Sotalol hcl) ..... One tab. twice daily Metoprolol Tartrate 25 Mg Oral Tablet (Metoprolol tartrate) ..... One tab. twice daily Jesus Eric Electrophysiology:Or ders: 9 9214 MOD Complex (CPT-28380) His updated medication list for this problem includes: Sotalol Hcl 120 Mg Oral Tablet (Sotalol hcl) ..... One tab. twice daily Metoprolol Tartrate 25 Mg Oral Tablet (Metoprolol tartrate) ..... One tab. twice daily Jesus Reyes Cardiology follow up :Orders: C ardiac Cath - L/R- [facility] (*) 9 9215 HIGH Complex (CPT-88530) Jesus Simmonson Cardiology follow up :Seen acutely for documented VT on pacer check today. Plan for cardiac cath KELSEA and possible upgrade from BiV PPM to BiV ICD. Orders: C OMPREHENSIVE METABOLIC PANEL, W/EGFR (24580) P ROBNP, N TERMINAL (81794) C BC (H/H, RBC, INDICES, WBC, PLT) (1759) L IPID PANEL (7600) T HYROID PANEL WITH TSH, 3RD GENERATION (7444) P artial Thromboplastin Time, Activated (763) P ROTHROMBIN TIME WITH INR (8847) C ardiac Cath - L/R- [facility] (*) 9 9215 HIGH Complex (CPT-62795) His updated medication list for this problem includes: Sotalol Hcl 120 Mg Oral Tablet (Sotalol hcl) ..... One tab. twice daily Metoprolol Tartrate 25 Mg Oral Tablet (Metoprolol tartrate) ..... One tab. twice daily Jesusus Reyes Cardiology follow up :Orders: C ardiac Cath - L/R- [facility] (*) 9 9215 HIGH Complex (CPT-28390) His updated medication list for this problem includes: Sotalol Hcl 120 Mg Oral Tablet (Sotalol hcl) ..... One tab. twice daily Metoprolol Tartrate 25 Mg Oral Tablet (Metoprolol tartrate) ..... One tab. twice daily Jesus Reyes Cardiology:CHOL: 154 .0 (06/16/2015) HDL: 29.0 (06/16/2015) T.0 (06/16/2015) C HOL (goal): 200 (10/09/2010) LDL (goal): 70 (10/09/2010) HDL (goal): 40 (10/09/2010) TG (goal): 150 (10/09/2010) H is updated medication list for this problem includes: Lipitor 40 Mg Oral Tablet (Atorvastatin calcium) ..... One tab. daily Rangel Slaughter MD Cardiology: H is updated medication list for this problem includes: Sotalol Hcl 120 Mg Oral Tablet (Sotalol hcl) ..... One tab. twice daily Metoprolol Tartrate 25 Mg Oral Tablet (Metoprolol tartrate) ..... One tab. twice daily Rangel Slaughter MD Cardiology: T he following medications were removed from the medication list: Cozaar 25 Mg Oral Tablet (Losartan potassium) ..... One tab. daily His updated medication list for this problem includes: Cozaar 50 Mg Oral Tablet (Losartan potassium) ..... One tab. daily Sotalol Hcl 120 Mg Oral Tablet (Sotalol hcl) ..... One tab. twice daily Metoprolol Tartrate 25 Mg Oral Tablet (Metoprolol tartrate) ..... One tab. twice daily BP today: 160/93 P rior BP: 140/80 (01/19/2017) Prior 10 Yr Risk Heart Disease: N/A (10/09/2010) Labs Reviewed: Creat: 1.0 (12/14/2015) C hol: 154.0 (06/16/2015) HDL: 29.0 (06/16/2015) T.0 (06/16/2015) Rangel Slaughter MD Cardiology Rangel Slaughter MD Cardiology:due for nuc Rangel rey MD Cardiology Rangel Slaughter MD Cardiology:since 15 class 3 Svetlana Slaughter MD Cardiology Rangel Slaughter MD Cardiology:correctew with iv iron, does not want colon Rangel Slaughter MD Cardiology:4.1 Rangel Slaughter MD Cardiology: B IV 100% r a at 80 Rangel Slaughter MD Cardiology Follow u p:7.6 Rangel Slaughter MD Cardiology Follow u p:due for st resss Rangel Slaughter MD Cardiology Follow u p:in sinus, had [id number] Rangel Slaughter MD Cardiology Follow u p: B P today: 146/79 P rior BP: 154/80 (06/13/2016) Prior 10 Yr Risk Heart Disease: N/A (10/09/2010) Labs Reviewed: C reat: 1.0 (12/14/2015) C hol: 154.0 (06/16/2015) HDL: 29.0 (06/16/2015) T.0 (06/16/2015) The following medications were removed from the medication list: Cozaar 25 Mg Tabs (Losartan potassium) ..... One tab. daily His updated medication list for this problem includes: Sotalol Hcl 120 Mg Tabs (Sotalol hcl) ..... One tab. twice daily Metoprolol Tartrate 25 Mg Tabs (Metoprolol tartrate) ..... One tab. twice daily Rangel Slaughter MD Cardiology Follow u p:nml pft Jones rosa elena Slaughter MD Cardiology Follow u p: O rders: A ortic Abdominal Ultrasound (CPT-95167) Rangel Slaughter MD Cardiology Follow u p aRngel conrad MD Cardiology Follow u p Rangel conrad MD Cardiology Follow u p Rangel conrad MD Cardiology Follow u p:neg pft an d tsh Rangel Slaughter MD Cardiology Follow u p: B IV 100% r a at 80 Rangel Slaughter MD Cardiology Follow u p:off amio n ow, and resolveid Rangel Slaughter MD EP:Orders: A ortic Abdominal Ultrasound (CPT-91117) Rosario Fay MD EP:Orders: C arotid Duplex Bilateral (CPT-36061) Rosario Fay MD EP:Labs Reviewed: H gBA1c: 5.7 (06/16/2015) Creat: 1.0 (12/14/2015) His updated medication list for this problem includes: Cozaar 25 Mg Tabs (Losartan potassium) ..... One tab. daily Glimepiride 2 Mg Tabs (Glimepiride) ..... Once daily Orders: S NOMED-CT: [id number] Current Medications Documented ([facility]-[id number]) C OMPREHENSIVE METABOLIC PANEL W/EGFR (52892) H EMOGLOBIN A1c (496) Rosario Fay MD EP:Orders: S NOMED-CT: [id number] Current Medications Documented ([facility]-[id number]) C OMPREHENSIVE METABOLIC PANEL W/EGFR (04161) L IPID PANEL (8350) Rosario Fay MD EP:BP today: 154/80 P rior BP: 148/80 (12/13/2015) His updated medication list for this problem includes: Sotalol Hcl 120 Mg Tabs (Sotalol hcl) ..... One tab. twice daily Metoprolol Tartrate 25 Mg Tabs (Metoprolol tartrate) ..... One tab. twice daily Cozaar 25 Mg Tabs (Losartan potassium) ..... One tab. daily Rosario Fay MD EP:Stable. No chest pain or SOB. Rosario Fay MD EP:His updated medic ation list for this problem includes: Magnesium 400 Mg Caps (Magnesium oxide) .... 2 times daily Sotalol Hcl 120 Mg Tabs (Sotalol hcl) ..... One tab. twice daily Metoprolol Tartrate 25 Mg Tabs (Metoprolol tartrate) ..... One tab. twice daily Pradaxa 150 Mg Caps (Dabigatran etexilate mesylate) .... One capsule twice a day Rosario Fay MD EP faxed 01/18/16:Lab s Reviewed: Creat: 1.0 (12/14/2015) Rosario Fay MD EP faxed 01/18/16:CHO L: 154.0 (06/16/2015) LDL: 98.6 (?) (06/16/2015) HDL: 29.0 (06/16/2015) T.0 (06/16/2015) His updated medication list for this problem includes: Lipitor 40 Mg Tabs (Atorvastatin calcium) ..... One tab. daily Rosario Fay MD EP faxed 01/18/16:His updated medication list for this problem includes: Sotalol Hcl 120 Mg Tabs (Sotalol hcl) ..... One tab. twice daily Metoprolol Tartrate 25 Mg Tabs (Metoprolol tartrate) ..... One tab. twice daily Cozaar 25 Mg Tabs (Losartan potassium) ..... One tab. daily Rosario Fay MD EP faxed 01/18/16:No chest pain o r SOB Rosario Fay MD EP faxed 01/18/16:The following medications were removed from the medication list: Amiodarone Hcl 200 Mg Tabs (Amiodarone hcl) ..... One tab. daily His updated medication list for this problem includes: Sotalol Hcl 120 Mg Tabs (Sotalol hcl) ..... One tab. twice daily Metoprolol Tartrate 25 Mg Tabs (Metoprolol tartrate) ..... One tab. twice daily Rosario Fay MD Cardiology:well let ep decide if stays on ac Rangel Slaughter MD Cardiology:neg home seep Rangel Slaughter MD Cardiology:DUE FOR NUC FALL 2016 Rangel Slaughter MD Cardiology:CHOL: 154 .0 (06/16/2015) LDL: 98.6 (?) (06/16/2015) HDL: 29.0 (06/16/2015) T.0 (06/16/2015) C HOL (goal): 200 (10/09/2010) LDL (goal): 70 (10/09/2010) HDL (goal): 40 (10/09/2010) TG (goal): 150 (10/09/2010) His updated medication list for this problem includes: Lipitor 40 Mg Tabs (Atorvastatin calcium) ..... One tab. daily Rangel Slaughter MD Cardiology:CHOL: 154 .0 (06/16/2015) LDL: 98.6 (?) (06/16/2015) HDL: 29.0 (06/16/2015) T.0 (06/16/2015) C HOL (goal): 200 (10/09/2010) LDL (goal): 70 (10/09/2010) HDL (goal): 40 (10/09/2010) TG (goal): 150 (10/09/2010) His updated medication list for this problem includes: Lipitor 40 Mg Tabs (Atorvastatin calcium) ..... One tab. daily Rangel Slaughter MD Cardiology: H is updated medication list for this problem includes: Cozaar 25 Mg Tabs (Losartan potassium) ..... One tab. daily Glimepiride 2 Mg Tabs (Glimepiride) ..... Once daily & #13;Labs Reviewed: H gBA1c: 5.7 (06/16/2015) Creat: 1.1 (06/16/2015) Rangel Slaughter MD Cardiology:BIV 100% Rangel watts MD Cardiology:Pulmonary Function Diagnosis: N ormal Pulmonary Functio N EG CXR Rangel Slaughter MD Cardiology:1. Normal left ventricular systolic function. Normal left ventricular size. There is borderline left v entricular hypertrophy. Normal E/E` 11.3. Left ventricular ejection fraction is estimated at 65 %. 2 . No significant valvular abnormalities. PRO 156 Rangel Slaughter MD EP Rosario craven MD EP Rosario craven MD EP Rosario craven MD Cardiology:PFT OK WILL CHCKE BNP AND BLOOD Rangel Slaughter MD Cardiology:nml ef by mary jane for abl ation Rangel Slaughter MD Cardiology:on pradaxa post ablat on Rangel Slaughter MD Cardiology:we need t o turn off biv again due to diahrmatic pacing Rangel Slaughter MD :Pulmonary Function Diagnosis: N ormal Pulmonary Function Rangel Slaughter MD :1. LARGE [id number] LAR JOINT EFFUSION. 2 . TRICOMPARTMENTAL OSTEOARTHRITIS, [id number] AT MEDIAL FEMOROTIBIAL JOINT. 3 . INFRAPATELLAR LOOSE BODY. A preliminary report was provided at the time of dictation. T RANSCRIPTIONIST: PW2 Rangel Slaughter MD EP Faxed 06/12/15 1158 Rosario mullen MD EP Faxed 06/12/15 115 8:continue Amiodarone Hcl 200 Mg Oral Tabs (Amiodarone hcl) ..... Twice daily The following medications were removed from the medication list: Sotalol Hcl 120 Mg Tabs (Sotalol hcl) ..... One tab. twice daily His updated medication list for this problem includes: Amiodarone Hcl 200 Mg Oral Tabs (Amiodarone hcl) ..... Twice daily Coumadin 5 Mg Oral Tabs (Warfarin sodium) ..... Take 1 tab daily. (stop xaralto 2 days before starting it.) Rosario Fay MD EP Faxed 06/12/15 1158 Rosario mullen MD EP Rosario craven MD EP Rosario craven MD EP: H is updated medication list for this problem includes: Coumadin 5 Mg Oral Tabs (Warfarin sodium) ..... Take 1 tab daily. (stop xaralto 2 days before starting it.) Sotalol Hcl 120 Mg Tabs (Sotalol hcl) ..... One tab. twice daily Rosario Fay MD EP Rosario craven MD EP Rosario craven MD EP :atrial fibrillat ion ablation. p atient agreed to participate in atrial fibrillation ablation study ( pradaxa and coumadin) Rosario Fay MD Follow up:bp low diuretic remvoc ed Rangel Slaughter MD Follow up Rangel Slaughter MD Follow up:neg nuc 2011 and 2013 Rangel Slaughter MD Follow up:ef 60% 10/2014, lae, mi ld mr Rangel Slaughter MD Follow up:we have be en reprogamming pacer to stop diaphramigic stim, 100% biv paced Rangel Slaughetr MD ppm check & fu:WIll recommence hyzaar. AF burden on device interrogation was 10%. WIll recheck in 6 months in office. If his bruden increases then will plan for Afib ablation. Orders: 9 9215 HIGH Complex (CPT-47670) Rosario Fay MD follow up Rangel Slaughter MD Follow up: H is updated medication list for this problem includes: Altace 10 Mg Caps (Ramipril) ..... One tab. daily Magnesium 400 Mg Caps (Magnesium oxide) ..... 2 times daily Sotalol Hcl 120 Mg Tabs (Sotalol hcl) ..... One tab. twice daily BP today: / Prior BP: 148/89 (04/01/2013) N uclear Stress Findings: 1. Normal myocardial perfusion imaging after vasodilator stress with Regadenoson. 2 . Normal left ventricular systolic function with a calculated ejection fraction of 51%. 3 . No obvious significant scintigraphic evidence of myocardial ischemia or scar. G C (09/04/2011) C ardiac Cath: EF - 60% M oderate hypokinesis of the anterolateral segment. N ormal left heart hemodynamics. % Left Main stenosis: 50% left main. % CX stenosis: 50% proximal. % 1st Diagonal stenosis: 80% proximal % LAD stenosis: 40% mid % RCA stenosis: 99% proixmal, 80% distal. [facility] (12/19/2003) H gb: 15.9 (11/11/2010) HCT: 45.1 (11/30/2012) Platelets: 185 (11/30/2012) R BC: 4.57 (11/11/2010) WBC: 6.2 (11/11/2010) B UN: 22 (11/11/2010) Creat: 1.0 (11/30/2012) Glucose: 122 (11/11/2010) N a+: 140 (11/30/2012) K+: 3.9 (11/30/2012) Cl: 108 (11/11/2010) SGOT (AST): 15 (11/30/2012) SGPT (ALT): 24 (11/30/2012) TSH: 1.330 (06/09/2012) T4 (total): 6.8 (05/17/2009) Rangel Slaughter MD Follow up Rangel Slaughter MD Follow up Rangel Slaughter MD Follow up Rangel Slaughter MD Follow up: H is updated medication list for this problem includes: Glimepiride 2 Mg Tabs (Glimepiride) ..... 1 tablet by mouth daily Altace 10 Mg Caps (Ramipril) ..... One tab. daily BP today: / Prior BP: 148/89 (04/01/2013) Labs Reviewed: H gBA1c: 6.8 (11/11/2010) Creat: 1.0 (11/30/2012) Rangel Slaughter MD Follow up: H is updated medication list for this problem includes: Zocor 40 Mg Tabs (Simvastatin) ..... One tab. at bedtime BP today: / Prior BP: 148/89 (04/01/2013) C HOL: 121 (11/30/2012) LDL: 70.8 (11/30/2012) HDL: 33 (11/30/2012) T (11/30/2012) C HOL (goal): 200 (10/09/2010) LDL (goal): 70 (10/09/2010) HDL (goal): 40 (10/09/2010) TG (goal): 150 (10/09/2010) Rangel Slaughter MD Follow up: H is updated medication list for this problem includes: Zocor 40 Mg Tabs (Simvastatin) ..... One tab. at bedtime Altace 10 Mg Caps (Ramipril) ..... One tab. daily Sotalol Hcl 120 Mg Tabs (Sotalol hcl) ..... One tab. twice daily BP today: / Prior BP: 148/89 (04/01/2013) N uclear Stress Findings: 1. Normal myocardial perfusion imaging after vasodilator stress with Regadenoson. 2 . Normal left ventricular systolic function with a calculated ejection fraction of 51%. 3 . No obvious significant scintigraphic evidence of myocardial ischemia or scar. G C (09/04/2011) C ardiac Cath: EF - 60% M oderate hypokinesis of the anterolateral segment. N ormal left heart hemodynamics. % Left Main stenosis: 50% left main. % CX stenosis: 50% proximal. % 1st Diagonal stenosis: 80% proximal % LAD stenosis: 40% mid % RCA stenosis: 99% proixmal, 80% distal. [facility] (12/19/2003) C arotid Doppler/Duplex: Mild plaque with less than 50% stenosis of the internal carotid arteries bilaterally. Vertebral flow is antegrade bilaterally. - [facility] (10/08/2012) C HOL: 121 (11/30/2012) LDL: 70.8 (11/30/2012) HDL: 33 (11/30/2012) T (11/30/2012) H gb: 15.9 (11/11/2010) HCT: 45.1 (11/30/2012) Platelets: 185 (11/30/2012) R BC: 4.57 (11/11/2010) WBC: 6.2 (11/11/2010) B UN: 22 (11/11/2010) Creat: 1.0 (11/30/2012) Glucose: 122 (11/11/2010) N a+: 140 (11/30/2012) K+: 3.9 (11/30/2012) Cl: 108 (11/11/2010) INR: 1.8 (10/22/2012) T SH: 1.330 (06/09/2012) T4 (total): 6.8 (05/17/2009) Rangel Slaughter MD Follow up Rangel Slaughter MD Follow up: H is updated medication list for this problem includes: Altace 10 Mg Caps (Ramipril) ..... One tab. daily Sotalol Hcl 120 Mg Tabs (Sotalol hcl) ..... One tab. twice daily & #13;Prior BP: 148/89 (04/01/2013) Prior 10 Yr Risk Heart Disease: N/A (10/09/2010) Labs Reviewed: C reat: 1.0 (11/30/2012) C hol: 121 (11/30/2012) HDL: 33 (11/30/2012) LDL: 70.8 (11/30/2012) T (11/30/2012) Rangel Slaughter MD Follow up Rangel Slaughter MD Follow up: O rders: C omplete Echo (CPT-47627) Rangel Slaughter MD Follow up: O rders: C omplete Echo (CPT-50597) Rangel Slaughter MD Follow up: H is updated medication list for this problem includes: Altace 10 Mg Caps (Ramipril) ..... One tab. daily Sotalol Hcl 120 Mg Tabs (Sotalol hcl) ..... One tab. twice daily Orders: C omplete Echo (CPT-66171) Rangel Slaughter MD Follow up: O rders: C omplete Echo (CPT-97181) Rangel Slaughter MD Follow up: H is updated medication list for this problem includes: Sotalol Hcl 120 Mg Tabs (Sotalol hcl) ..... One tab. twice daily Rangel Slaughter MD clindesk not reveiwed Rangel conrad MD clindesk not reveiwe d: H is updated medication list for this problem includes: Cozaar 100 Mg Tabs (Losartan potassium) ..... One tab. daily Cardizem Cd 240 Mg Cp24 (Diltiazem hcl coated beads) ..... One daily Rangel Slaughter MD [employer]indesk not reveiwe d: H is updated medication list for this problem includes: Cozaar 100 Mg Tabs (Losartan potassium) ..... One tab. daily Cardizem Cd 240 Mg Cp24 (Diltiazem hcl coated beads) ..... One daily Rangel Slaughter MD [employer]esk not reveiwed Rangel conrad MD [employer]indesk not reveiwe d: O rders: C omplete Echo (CPT-18202) Rangel Slaughter MD [employer]esk not reveiwe d: O rders: C omplete Echo (CPT-10505) Rangel Slaughter MD clindesk not reveiwe d: H is updated medication list for this problem includes: Cozaar 100 Mg Tabs (Losartan potassium) ..... One tab. daily Orders: C omplete Echo (CPT-67120) Rangel Slaughter MD clindesk not reveiwe d: O rders: C omplete Echo (CPT-88824) Rangel Slaughter MD [employer]esk not reveiwe d: O rders: C omplete Echo (CPT-03889) Rangel Slaughter MD clindesk not reveiwe d: H is updated medication list for this problem includes: Zocor 40 Mg Tabs (Simvastatin) ..... One tab. at bedtime Rangel Slaughter MD [employer]esk not reveiwed Rangel conrad MD follow up: O rders: e Prescribe - Check this box if eRx is used (CPT-G8553) Rangel Slaughter MD follow up Rangel Slaughter MD follow up Rangel Slaughter MD follow up: T he following medications were removed from the medication list: Altace 10 Mg Caps (Ramipril) ..... One tab. daily(changed 10/09) Aspirin 81 Mg Tabs (Aspirin) ..... One tab. daily His updated medication list for this problem includes: Cozaar 100 Mg Tabs (Losartan potassium) ..... One tab. daily BP today: 132/88 Prior BP: 159/75 (08/28/2011) N uclear Stress Findings: 1. Normal myocardial perfusion imaging after vasodilator stress with Regadenoson. 2 . Normal left ventricular systolic function with a calculated ejection fraction of 51%. 3 . No obvious significant scintigraphic evidence of myocardial ischemia or scar. GC (09/04/2011) C ardiac Cath: EF - 60% M oderate hypokinesis of the anterolateral segment. N ormal left heart hemodynamics. % Left Main stenosis: 50% left main. % CX stenosis: 50% proximal. % 1st Diagonal stenosis: 80% proximal % LAD stenosis: 40% mid % RCA stenosis: 99% proixmal, 80% distal. [facility] (12/19/2003) H gb: 15.9 (11/11/2010) HCT: 47.7 (06/09/2012) Platelets: 160 (06/09/2012) R BC: 4.57 (11/11/2010) WBC: 6.2 (11/11/2010) B UN: 22 (11/11/2010) Creat: 0.96 (06/09/2012) Glucose: 122 (11/11/2010) N a+: 143 (06/09/2012) K+: 4.1 (06/09/2012) Cl: 108 (11/11/2010) SGOT (AST): 23 (06/09/2012) SGPT (ALT): 50 (06/09/2012) TSH: 1.330 (06/09/2012) T4 (total): 6.8 (05/17/2009) Rangel Slaughter MD follow up Rangel Slaughter MD follow up: H is updated medication list for this problem includes: Glimepiride 2 Mg Tabs (Glimepiride) ..... 1 tablet by mouth daily Altace 10 Mg Caps (Ramipril) ..... One tab. daily(changed 10/09) Aspirin 81 Mg Tabs (Aspirin) ..... One tab. daily BP today: 132/88 Prior BP: 159/75 (08/28/2011) Labs Reviewed: H gBA1c: 6.8 (11/11/2010) Creat: 0.96 (06/09/2012) Rangel Slaughter MD follow up: H is updated medication list for this problem includes: Multaq 400 Mg Tabs (Dronedarone hcl) ..... One tab with morning meal. one tab with evening meal. Altace 10 Mg Caps (Ramipril) ..... One tab. daily(changed 10/09) Aspirin 81 Mg Tabs (Aspirin) ..... One tab. daily BP today: 132/88 Prior BP: 159/75 (08/28/2011) N uclear Stress Findings: 1. Normal myocardial perfusion imaging after vasodilator stress with Regadenoson. 2 . Normal left ventricular systolic function with a calculated ejection fraction of 51%. 3 . No obvious significant scintigraphic evidence of myocardial ischemia or scar. (09/04/2011) C ardiac Cath: EF - 60% M oderate hypokinesis of the anterolateral segment. N ormal left heart hemodynamics. % Left Main stenosis: 50% left main. % CX stenosis: 50% proximal. % 1st Diagonal stenosis: 80% proximal % LAD stenosis: 40% mid % RCA stenosis: 99% proixmal, 80% distal. [facility] (12/19/2003) C HOL: 88 (06/09/2012) LDL: 37 (06/09/2012) HDL: 32 (11/11/2010) T (11/11/2010) H gb: 15.9 (11/11/2010) HCT: 47.7 (06/09/2012) Platelets: 160 (06/09/2012) R BC: 4.57 (11/11/2010) WBC: 6.2 (11/11/2010) B UN: 22 (11/11/2010) Creat: 0.96 (06/09/2012) Glucose: 122 (11/11/2010) N a+: 143 (06/09/2012) K+: 4.1 (06/09/2012) Cl: 108 (11/11/2010) TSH: 1.330 (06/09/2012) T4 (total): 6.8 (05/17/2009) Rangel Slaughter MD follow up Rangel Slaughter MD follow up: H is updated medication list for this problem includes: Caduet 10-40 Mg Tabs (Amlodipine-atorvastatin) ..... One tab. daily(changed 10/09) Niaspan 1000 Mg Tbcr (Niacin (antihyperlipidemic)) ..... Two tabs. at bedtime - dispense as written (changed 10/09) BP today: 132/88 Prior BP: 159/75 (08/28/2011) C HOL: 88 (06/09/2012) LDL: 37 (06/09/2012) HDL: 32 (11/11/2010) T (11/11/2010) C HOL (goal): 200 (10/09/2010) LDL (goal): 70 (10/09/2010) HDL (goal): 40 (10/09/2010) TG (goal): 150 (10/09/2010) Rangel Slaughter MD follow up: H is updated medication list for this problem includes: Caduet 10-40 Mg Tabs (Amlodipine-atorvastatin) ..... One tab. daily(changed 10/09) Altace 10 Mg Caps (Ramipril) ..... One tab. daily(changed 10/09) Aspirin 81 Mg Tabs (Aspirin) ..... One tab. daily Orders: E KG ([id number]) BP today: 132/88 P rior BP: 159/75 (08/28/2011) Prior 10 Yr Risk Heart Disease: N/A (10/09/2010) Labs Reviewed: C reat: 0.96 (06/09/2012) C hol: 88 (06/09/2012) HDL: 32 (11/11/2010) LDL: 37 (06/09/2012) T (11/11/2010) Rangel Slaughter MD follow up: H is updated medication list for this problem includes: Caduet 10-40 Mg Tabs (Amlodipine-atorvastatin) ..... One tab. daily(changed 10/09) Niaspan 1000 Mg Tbcr (Niacin (antihyperlipidemic)) ..... Two tabs. at bedtime - dispense as written (changed 10/09) Altace 10 Mg Caps (Ramipril) ..... One tab. daily(changed 10/09) Aspirin 81 Mg Tabs (Aspirin) ..... One tab. daily B P today: 132/88 Prior BP: 159/75 (08/28/2011) N uclear Stress Findings: 1. Normal myocardial perfusion imaging after vasodilator stress with Regadenoson. 2 . Normal left ventricular systolic function with a calculated ejection fraction of 51%. 3 . No obvious significant scintigraphic evidence of myocardial ischemia or scar. GC (09/04/2011) C ardiac Cath: EF - 60% M oderate hypokinesis of the anterolateral segment. N ormal left heart hemodynamics. % Left Main stenosis: 50% left main. % CX stenosis: 50% proximal. % 1st Diagonal stenosis: 80% proximal % LAD stenosis: 40% mid % RCA stenosis: 99% proixmal, 80% distal. [facility] (12/19/2003) C HOL: 88 (06/09/2012) LDL: 37 (06/09/2012) HDL: 32 (11/11/2010) T (11/11/2010) H gb: 15.9 (11/11/2010) HCT: 47.7 (06/09/2012) Platelets: 160 (06/09/2012) R BC: 4.57 (11/11/2010) WBC: 6.2 (11/11/2010) B UN: 22 (11/11/2010) Creat: 0.96 (06/09/2012) Glucose: 122 (11/11/2010) N a+: 143 (06/09/2012) K+: 4.1 (06/09/2012) Cl: 108 (11/11/2010) TSH: 1.330 (06/09/2012) T4 (total): 6.8 (05/17/2009) Rangel Slaughter MD follow up Rangel Slaughter MD follow up Rangel Slaughter MD follow up Rangel Slaughter MD follow up Rangel Slaughter MD routine Rangel Slaughter MD routine Rangel Slaughter MD routine : H is updated medication list for this problem includes: Glimepiride 2 Mg Tabs (Glimepiride) ..... 1 tablet by mouth daily Altace 10 Mg Caps (Ramipril) ..... One tab. daily(changed 10/09) Rangel Slaughter MD routine : His updated medication list for this problem includes: Multaq 400 Mg Tabs (Dronedarone hcl) ..... One tab with morning meal. one tab with evening meal. Coumadin 5 Mg Tabs (Warfarin sodium) ..... Daily Altace 10 Mg Caps (Ramipril) ..... One tab. daily(changed 10/09) Rangel Slaughter MD routine : His updated medication list for this problem includes: Caduet 10-40 Mg Tabs (Amlodipine-atorvastatin) ..... One tab. daily(changed 10/09) Niaspan 1000 Mg Tbcr (Niacin (antihyperlipidemic)) ..... Two tabs. at bedtime - dispense as written (changed 10/09) Rangel Slaughter MD routine Rangel Slaughter MD routine : His updated medication list for this problem includes: Coumadin 5 Mg Tabs (Warfarin sodium) ..... Daily Caduet 10-40 Mg Tabs (Amlodipine-atorvastatin) ..... One tab. daily(changed 10/09) Niaspan 1000 Mg Tbcr (Niacin (antihyperlipidemic)) ..... Two tabs. at bedtime - dispense as written (changed 10/09) Altace 10 Mg Caps (Ramipril) ..... One tab. daily(changed 10/09) Rangel Slaughter MD routine : His updated medication list for this problem includes: Caduet 10-40 Mg Tabs (Amlodipine-atorvastatin) ..... One tab. daily(changed 10/09) Altace 10 Mg Caps (Ramipril) ..... One tab. daily(changed 10/09) Rangel Slaughter MD routine : His updated medication list for this problem includes: Altace 10 Mg Caps (Ramipril) ..... One tab. daily(changed 10/09) Rangel Slaughter MD routine : His updated medication list for this problem includes: Multaq 400 Mg Tabs (Dronedarone hcl) ..... One tab with morning meal. one tab with evening meal. Coumadin 5 Mg Tabs (Warfarin sodium) ..... Daily Altace 10 Mg Caps (Ramipril) ..... One tab. daily(changed 10/09) Rangel Slaughter MD routine : His updated medication list for this problem includes: Multaq 400 Mg Tabs (Dronedarone hcl) ..... One tab with morning meal. one tab with evening meal. Coumadin 5 Mg Tabs (Warfarin sodium) ..... Daily Rangel Slaughter MD routine Rangel Slaughter MD Lipid Mgmt: T he following medications were removed from the medication list: Slo-niacin 750 Mg Tbcr (Niacin) ..... 2 tab. daily Zocor 80 Mg Tabs (Simvastatin) ..... One tab. at bedtime H is updated medication list for this problem includes: Caduet 10-40 Mg Tabs (Amlodipine-atorvastatin) ..... One tab. daily(changed 2) Niaspan 1000 Mg Tbcr (Niacin (antihyperlipidemic)) ..... Two tabs. at bedtime - dispense as written (changed 10/09) P t prefered above medications over [facility] supply. SUSIE ANDERSON NP routine Rangel Slaughter MD routine : H is updated medication list for this problem includes: Altace 10 Mg Caps (Ramipril) ..... One tab. daily Glimepiride 2 Mg Tabs (Glimepiride) ..... 1 tablet by mouth daily Aspirin 325 Mg Tabs (Aspirin) ..... One tab daily BP today: / Prior BP: 142/80 (08/30/2009) Labs Reviewed: C reat: 1.07 (09/05/2009) Rangel Slaughter MD routine : H is updated medication list for this problem includes: Altace 10 Mg Caps (Ramipril) ..... One tab. daily Aspirin 325 Mg Tabs (Aspirin) ..... One tab daily Multaq 400 Mg Tabs (Dronedarone hcl) ..... One tab with morning meal. one tab with evening meal. BP today: / Prior BP: 142/80 (08/30/2009) N uclear Stress Findings: Patient first got on treadmill. HR went up to 150 but developed bbb and looked like vtach. Patient had no symptoms. Test was started over as adenosine A denosine infusion per protocol N o undue symptoms or arrhythmias N o significant ST segment depression S table hemodynamics R adiopharmaceutical injected at maximal coronary vasodilation 6. Normal left ventricular systolic function with a calculated ejection fraction of 71%. N o obvious significant scintigraphic evidence of myocardial ischemia or scar. [facility] (01/04/2009) C ardiac Cath: EF - 60% M oderate hypokinesis of the anterolateral segment. N ormal left heart hemodynamics. % Left Main stenosis: 50% left main. % CX stenosis: 50% proximal. % 1st Diagonal stenosis: 80% proximal % LAD stenosis: 40% mid % RCA stenosis: 99% proixmal, 80% distal. [facility] (12/19/2003) B UN: 16 (09/05/2009) Creat: 1.07 (09/05/2009) Glucose: 77 (09/05/2009) N a+: 143 (09/05/2009) K+: 4.4 (09/05/2009) Cl: 107 (09/05/2009) TSH: 1.60 (05/17/2009) T4 (total): 6.8 (05/17/2009) Rangel Slaughter MD routine : H is updated medication list for this problem includes: Niaspan 1000 Mg Tbcr (Niacin (antihyperlipidemic)) ..... Two tabs. at bedtime Caduet 5-10 Mg Tabs (Amlodipine-atorvastatin) ..... One tab. daily BP today: / Prior BP: 142/80 (08/30/2009) Rangel Slaughter MD routine Rangel Slaughter MD routine : H is updated medication list for this problem includes: Altace 10 Mg Caps (Ramipril) ..... One tab. daily Caduet 5-10 Mg Tabs (Amlodipine-atorvastatin) ..... One tab. daily Aspirin 325 Mg Tabs (Aspirin) ..... One tab daily Prior BP: 142/80 (08/30/2009) Labs Reviewed: C reat: 1.07 (09/05/2009) Rangel Slaughter MD routine : H is updated medication list for this problem includes: Altace 10 Mg Caps (Ramipril) ..... One tab. daily Aspirin 325 Mg Tabs (Aspirin) ..... One tab daily Multaq 400 Mg Tabs (Dronedarone hcl) ..... One tab with morning meal. one tab with evening meal. Rangel Slaughetr MD routine : H is updated medication list for this problem includes: Altace 10 Mg Caps (Ramipril) ..... One tab. daily Aspirin 325 Mg Tabs (Aspirin) ..... One tab daily BP today: / Prior BP: 142/80 (08/30/2009) N uclear Stress Findings: Patient first got on treadmill. HR went up to 150 but developed bbb and looked like vtach. Patient had no symptoms. Test was started over as adenosine A denosine infusion per protocol N o undue symptoms or arrhythmias N o significant ST segment depression S table hemodynamics R adiopharmaceutical injected at maximal coronary vasodilation 6. Normal left ventricular systolic function with a calculated ejection fraction of 71%. N o obvious significant scintigraphic evidence of myocardial ischemia or scar. [facility] (01/04/2009) E chocardiogram: Patient is in atrial fibrillation. Normal left ventricular systolic function. Normal left ventricular size. Mild concentric left ventricular hypertrophy. Normal E/E` 12.0. Left ventricular ejection fraction is estimated at 58%. Normal pericardium with no pericardial or pleural effusion. Normal aortic root. No significant valvular abnormalities. (12/10/2009) C ardiac Cath: EF - 60% M oderate hypokinesis of the anterolateral segment. N ormal left heart hemodynamics. % Left Main stenosis: 50% left main. % CX stenosis: 50% proximal. % 1st Diagonal stenosis: 80% proximal % LAD stenosis: 40% mid % RCA stenosis: 99% proixmal, 80% distal. [facility] (12/19/2003) B UN: 16 (09/05/2009) Creat: 1.07 (09/05/2009) Glucose: 77 (09/05/2009) N a+: 143 (09/05/2009) K+: 4.4 (09/05/2009) Cl: 107 (09/05/2009) TSH: 1.60 (05/17/2009) T4 (total): 6.8 (05/17/2009) Rangel Slaughter MD routine : H is updated medication list for this problem includes: Aspirin 325 Mg Tabs (Aspirin) ..... One tab daily Multaq 400 Mg Tabs (Dronedarone hcl) ..... One tab with morning meal. one tab with evening meal. Rangel Slaughter MD contarolled afib wti h multaq: H is updated medication list for this problem includes: Altace 10 Mg Caps (Ramipril) ..... One tab. daily Glimepiride 2 Mg Tabs (Glimepiride) ..... 1 tablet by mouth daily Aspirin 325 Mg Tabs (Aspirin) ..... One tab daily BP today: 142/80 Prior BP: 144/73 (05/17/2009) Rangel Slaughter MD contarolled afib wti h multaq: H is updated medication list for this problem includes: Altace 10 Mg Caps (Ramipril) ..... One tab. daily Aspirin 325 Mg Tabs (Aspirin) ..... One tab daily Multaq 400 Mg Tabs (Dronedarone hcl) ..... One tab with morning meal. one tab with evening meal. BP today: 142/80 Prior BP: 144/73 (05/17/2009) N uclear Stress Findings: Patient first got on treadmill. HR went up to 150 but developed bbb and looked like vtach. Patient had no symptoms. Test was started over as adenosine A denosine infusion per protocol N o undue symptoms or arrhythmias N o significant ST segment depression S table hemodynamics R adiopharmaceutical injected at maximal coronary vasodilation 6. Normal left ventricular systolic function with a calculated ejection fraction of 71%. N o obvious significant scintigraphic evidence of myocardial ischemia or scar. [facility] (01/04/2009) C ardiac Cath: EF - 60% M oderate hypokinesis of the anterolateral segment. N ormal left heart hemodynamics. % Left Main stenosis: 50% left main. % CX stenosis: 50% proximal. % 1st Diagonal stenosis: 80% proximal % LAD stenosis: 40% mid % RCA stenosis: 99% proixmal, 80% distal. [facility] (12/19/2003) T SH: 1.60 (05/17/2009) T4 (total): 6.8 (05/17/2009) Rangel Slaughter MD contarolled afib wtih multaq Tim Slaughter MD contarolled afib wti h multaq: H is updated medication list for this problem includes: Niaspan 1000 Mg Tbcr (Niacin (antihyperlipidemic)) ..... Two tabs. at bedtime Altace 10 Mg Caps (Ramipril) ..... One tab. daily Caduet 5-10 Mg Tabs (Amlodipine-atorvastatin) ..... One tab. daily Aspirin 325 Mg Tabs (Aspirin) ..... One tab daily BP today: 142/80 Prior BP: 144/73 (05/17/2009) N uclear Stress Findings: Patient first got on treadmill. HR went up to 150 but developed bbb and looked like vtach. Patient had no symptoms. Test was started over as adenosine A denosine infusion per protocol N o undue symptoms or arrhythmias N o significant ST segment depression S table hemodynamics R adiopharmaceutical injected at maximal coronary vasodilation 6. Normal left ventricular systolic function with a calculated ejection fraction of 71%. N o obvious significant scintigraphic evidence of myocardial ischemia or scar. [facility] (01/04/2009) C ardiac Cath: EF - 60% M oderate hypokinesis of the anterolateral segment. N ormal left heart hemodynamics. % Left Main stenosis: 50% left main. % CX stenosis: 50% proximal. % 1st Diagonal stenosis: 80% proximal % LAD stenosis: 40% mid % RCA stenosis: 99% proixmal, 80% distal. [facility] (12/19/2003) T SH: 1.60 (05/17/2009) T4 (total): 6.8 (05/17/2009) Rangel Slaughter MD contarolled afib wti h multaq: H is updated medication list for this problem includes: Altace 10 Mg Caps (Ramipril) ..... One tab. daily Caduet 5-10 Mg Tabs (Amlodipine-atorvastatin) ..... One tab. daily Aspirin 325 Mg Tabs (Aspirin) ..... One tab daily BP today: 142/80 P rior BP: 144/73 (05/17/2009) Rangel Slaughter MD contarolled afib wti h multaq: H is updated medication list for this problem includes: Altace 10 Mg Caps (Ramipril) ..... One tab. daily Aspirin 325 Mg Tabs (Aspirin) ..... One tab daily Multaq 400 Mg Tabs (Dronedarone hcl) ..... One tab with morning meal. one tab with evening meal. Rangel Slaughter MD contarolled afib wti h multaq: H is updated medication list for this problem includes: Altace 10 Mg Caps (Ramipril) ..... One tab. daily Aspirin 325 Mg Tabs (Aspirin) ..... One tab daily B P today: 142/80 Prior BP: 144/73 (05/17/2009) N uclear Stress Findings: Patient first got on treadmill. HR went up to 150 but developed bbb and looked like vtach. Patient had no symptoms. Test was started over as adenosine A denosine infusion per protocol N o undue symptoms or arrhythmias N o significant ST segment depression S table hemodynamics R adiopharmaceutical injected at maximal coronary vasodilation 6. Normal left ventricular systolic function with a calculated ejection fraction of 71%. N o obvious significant scintigraphic evidence of myocardial ischemia or scar. [facility] (01/04/2009) E chocardiogram: Normal LV size. Moderate concentric LVH. EF 55%. E/E` IS 6. No significant valvular abnormalities seen. O (01/04/2009) C ardiac Cath: EF - 60% M oderate hypokinesis of the anterolateral segment. N ormal left heart hemodynamics. % Left Main stenosis: 50% left main. % CX stenosis: 50% proximal. % 1st Diagonal stenosis: 80% proximal % LAD stenosis: 40% mid % RCA stenosis: 99% proixmal, 80% distal. [facility] (12/19/2003) T SH: 1.60 (05/17/2009) T4 (total): 6.8 (05/17/2009) Rangel Slaughter MD contarolled afib wti h multaq: H is updated medication list for this problem includes: Aspirin 325 Mg Tabs (Aspirin) ..... One tab daily Multaq 400 Mg Tabs (Dronedarone hcl) ..... One tab with morning meal. one tab with evening meal. Rangel Slaughter MD sotolol stopped due to slow hr H sona Slaughter MD sotolol stopped due to slow hr: H is updated medication list for this problem includes: Altace 10 Mg Caps (Ramipril) ..... One tab. daily Glimepiride 2 Mg Tabs (Glimepiride) ..... 1 tablet by mouth daily Aspirin 325 Mg Tabs (Aspirin) ..... One tab daily BP today: 144/73 Prior BP: 135/73 (03/15/2009) Orders: H olter Monitor 24 Hr ([id number]) Rangel Slaughter MD sotolol stopped due to slow hr: H is updated medication list for this problem includes: Altace 10 Mg Caps (Ramipril) ..... One tab. daily Aspirin 325 Mg Tabs (Aspirin) ..... One tab daily Multaq 400 Mg Tabs (Dronedarone hcl) ..... One tab with morning meal. one tab with evening meal. BP today: 144/73 Prior BP: 135/73 (03/15/2009) N uclear Stress Findings: Patient first got on treadmill. HR went up to 150 but developed bbb and looked like vtach. Patient had no symptoms. Test was started over as adenosine A denosine infusion per protocol N o undue symptoms or arrhythmias N o significant ST segment depression S table hemodynamics R adiopharmaceutical injected at maximal coronary vasodilation 6. Normal left ventricular systolic function with a calculated ejection fraction of 71%. N o obvious significant scintigraphic evidence of myocardial ischemia or scar. [facility] (01/04/2009) C ardiac Cath: EF - 60% M oderate hypokinesis of the anterolateral segment. N ormal left heart hemodynamics. % Left Main stenosis: 50% left main. % CX stenosis: 50% proximal. % 1st Diagonal stenosis: 80% proximal % LAD stenosis: 40% mid % RCA stenosis: 99% proixmal, 80% distal. [facility] (12/19/2003) Orders: H olter Monitor 24 Hr ([id number]) Rangel Slaughter MD sotolol stopped due to slow hr: H is updated medication list for this problem includes: Niaspan 1000 Mg Tbcr (Niacin (antihyperlipidemic)) ..... Two tabs. at bedtime Caduet 5-10 Mg Tabs (Amlodipine-atorvastatin) ..... One tab. daily BP today: 144/73 Prior BP: 135/73 (03/15/2009) Orders: H olter Monitor 24 Hr ([id number]) Rangel Slaughter MD sotolol stopped due to slow hr: O rders: H olter Monitor 24 Hr ([id number]) Rangel Slaughter MD sotolol stopped due to slow hr: H is updated medication list for this problem includes: Altace 10 Mg Caps (Ramipril) ..... One tab. daily Caduet 5-10 Mg Tabs (Amlodipine-atorvastatin) ..... One tab. daily Aspirin 325 Mg Tabs (Aspirin) ..... One tab daily BP today: 144/73 P rior BP: 135/73 (03/15/2009) Orders: H olter Monitor 24 Hr ([id number]) Rangel Slaughter MD sotolol stopped due to slow hr: H is updated medication list for this problem includes: Niaspan 1000 Mg Tbcr (Niacin (antihyperlipidemic)) ..... Two tabs. at bedtime Altace 10 Mg Caps (Ramipril) ..... One tab. daily Caduet 5-10 Mg Tabs (Amlodipine-atorvastatin) ..... One tab. daily Aspirin 325 Mg Tabs (Aspirin) ..... One tab daily BP today: 144/73 Prior BP: 135/73 (03/15/2009) N uclear Stress Findings: Patient first got on treadmill. HR went up to 150 but developed bbb and looked like vtach. Patient had no symptoms. Test was started over as adenosine A denosine infusion per protocol N o undue symptoms or arrhythmias N o significant ST segment depression S table hemodynamics R adiopharmaceutical injected at maximal coronary vasodilation 6. Normal left ventricular systolic function with a calculated ejection fraction of 71%. N o obvious significant scintigraphic evidence of myocardial ischemia or scar. [facility] (01/04/2009) C ardiac Cath: EF - 60% M oderate hypokinesis of the anterolateral segment. N ormal left heart hemodynamics. % Left Main stenosis: 50% left main. % CX stenosis: 50% proximal. % 1st Diagonal stenosis: 80% proximal % LAD stenosis: 40% mid % RCA stenosis: 99% proixmal, 80% distal. [facility] (12/19/2003) Orders: H olter Monitor 24 Hr ([id number]) Rangel Slaughter MD sotolol stopped due to slow hr: H is updated medication list for this problem includes: Altace 10 Mg Caps (Ramipril) ..... One tab. daily Aspirin 325 Mg Tabs (Aspirin) ..... One tab daily Multaq 400 Mg Tabs (Dronedarone hcl) ..... One tab with morning meal. one tab with evening meal. Orders: H olter Monitor 24 Hr ([id number]) Rangel Slaughter MD sotolol stopped due to slow hr: H is updated medication list for this problem includes: Aspirin 325 Mg Tabs (Aspirin) ..... One tab daily Multaq 400 Mg Tabs (Dronedarone hcl) ..... One tab with morning meal. one tab with evening meal. Orders: T HYROID PANEL WITH TSH, 3RD GENERATION ([id number]) H olter Monitor 24 Hr ([id number]) Rangel Slaughter MD afib will increase s otolol and reholter and fu: O rders: H olter Monitor 24 Hr ([id number]) Rangel Slaughter MD afib will increase s otolol and reholter and fu: H is updated medication list for this problem includes: Altace 10 Mg Caps (Ramipril) ..... One tab. daily Glimepiride 2 Mg Tabs (Glimepiride) ..... 1 tablet by mouth daily Aspirin 325 Mg Tabs (Aspirin) ..... One tab daily BP today: 135/73 Prior BP: 142/72 (02/01/2009) Orders: H olter Monitor 24 Hr ([id number]) Rangel Slaughter MD afib will increase s otolol and reholter and fu: H is updated medication list for this problem includes: Altace 10 Mg Caps (Ramipril) ..... One tab. daily Aspirin 325 Mg Tabs (Aspirin) ..... One tab daily Sotalol Hcl 80 Mg Tabs (Sotalol hcl) ..... 1 tablet by mouth twice daily BP today: 135/73 Prior BP: 142/72 (02/01/2009) N uclear Stress Findings: Patient first got on treadmill. HR went up to 150 but developed bbb and looked like vtach. Patient had no symptoms. Test was started over as adenosine A denosine infusion per protocol N o undue symptoms or arrhythmias N o significant ST segment depression S table hemodynamics R adiopharmaceutical injected at maximal coronary vasodilation 6. Normal left ventricular systolic function with a calculated ejection fraction of 71%. N o obvious significant scintigraphic evidence of myocardial ischemia or scar. [facility] (01/04/2009) C ardiac Cath: EF - 60% M oderate hypokinesis of the anterolateral segment. N ormal left heart hemodynamics. % Left Main stenosis: 50% left main. % CX stenosis: 50% proximal. % 1st Diagonal stenosis: 80% proximal % LAD stenosis: 40% mid % RCA stenosis: 99% proixmal, 80% distal. [facility] (12/19/2003) Orders: H olter Monitor 24 Hr ([id number]) Rangel lSaughter MD afib will increase s otolol and reholter and fu: H is updated medication list for this problem includes: Niaspan 1000 Mg Tbcr (Niacin (antihyperlipidemic)) ..... Two tabs. at bedtime Caduet 5-10 Mg Tabs (Amlodipine-atorvastatin) ..... One tab. daily BP today: 135/73 Prior BP: 142/72 (02/01/2009) Orders: H olter Monitor 24 Hr ([id number]) Rangel Slaughter MD afib will increase s otolol and reholter and fu: O rders: H olter Monitor 24 Hr ([id number]) Rangel Slaughter MD afib will increase s otolol and reholter and fu: H is updated medication list for this problem includes: Niaspan 1000 Mg Tbcr (Niacin (antihyperlipidemic)) ..... Two tabs. at bedtime Altace 10 Mg Caps (Ramipril) ..... One tab. daily Caduet 5-10 Mg Tabs (Amlodipine-atorvastatin) ..... One tab. daily Aspirin 325 Mg Tabs (Aspirin) ..... One tab daily Sotalol Hcl 80 Mg Tabs (Sotalol hcl) ..... 1 tablet by mouth twice daily BP today: 135/73 Prior BP: 142/72 (02/01/2009) N uclear Stress Findings: Patient first got on treadmill. HR went up to 150 but developed bbb and looked like vtach. Patient had no symptoms. Test was started over as adenosine A denosine infusion per protocol N o undue symptoms or arrhythmias N o significant ST segment depression Stable hemodynamics R adiopharmaceutical injected at maximal coronary vasodilation 6. Normal left ventricular systolic function with a calculated ejection fraction of 71%. N o obvious significant scintigraphic evidence of myocardial ischemia or scar. [facility] (01/04/2009) C ardiac Cath: EF - 60% M oderate hypokinesis of the anterolateral segment. N ormal left heart hemodynamics. % Left Main stenosis: 50% left main. % CX stenosis: 50% proximal. % 1st Diagonal stenosis: 80% proximal % LAD stenosis: 40% mid % RCA stenosis: 99% proixmal, 80% distal. [facility] (12/19/2003) Orders: H olter Monitor 24 Hr ([id number]) Rangel Slaughter MD afib will increase s otolol and reholter and fu: H is updated medication list for this problem includes: Altace 10 Mg Caps (Ramipril) ..... One tab. daily Caduet 5-10 Mg Tabs (Amlodipine-atorvastatin) ..... One tab. daily Aspirin 325 Mg Tabs (Aspirin) ..... One tab daily Sotalol Hcl 80 Mg Tabs (Sotalol hcl) ..... 1 tablet by mouth twice daily BP today: 135/73 P rior BP: 142/72 (02/01/2009) Orders: H olter Monitor 24 Hr ([id number]) Rangel Slaughter MD afib will increase s otolol and reholter and fu: H is updated medication list for this problem includes: Altace 10 Mg Caps (Ramipril) ..... One tab. daily Aspirin 325 Mg Tabs (Aspirin) ..... One tab daily Sotalol Hcl 80 Mg Tabs (Sotalol hcl) ..... 1 tablet by mouth twice daily Orders: H olter Monitor 24 Hr ([id number]) Rangel Slaughter MD afib will increase s otolol and reholter and fu: H is updated medication list for this problem includes: Aspirin 325 Mg Tabs (Aspirin) ..... One tab daily Sotalol Hcl 80 Mg Tabs (Sotalol hcl) ..... 1 tablet by mouth twice daily Orders: H olter Monitor 24 Hr ([id number]) Rangel Slaughter MD paf stable will increase sotolo l and repeat holter Rangel Slaughter MD paf, stable will inc rease sotolol and repeat holter: H is updated medication list for this problem includes: Altace 10 Mg Caps (Ramipril) ..... One tab. daily Glimepiride 2 Mg Tabs (Glimepiride) ..... 1 tablet by mouth daily Aspirin 325 Mg Tabs (Aspirin) ..... One tab daily BP today: 142/72 Prior BP: 139/84 (01/17/2009) Rangel Slaughter MD paf, stable will inc rease sotolol and repeat holter: H is updated medication list for this problem includes: Altace 10 Mg Caps (Ramipril) ..... One tab. daily Aspirin 325 Mg Tabs (Aspirin) ..... One tab daily Sotalol Hcl 80 Mg Tabs (Sotalol hcl) ..... 1/2 tablet by mouth twice daily BP today: 142/72 Prior BP: 139/84 (01/17/2009) N uclear Stress Findings: Patient first got on treadmill. HR went up to 150 but developed bbb and looked like vtach. Patient had no symptoms. Test was started over as adenosine A denosine infusion per protocol N o undue symptoms or arrhythmias N o significant ST segment depression S table hemodynamics R adiopharmaceutical injected at maximal coronary vasodilation 6. Normal left ventricular systolic function with a calculated ejection fraction of 71%. N o obvious significant scintigraphic evidence of myocardial ischemia or scar. [facility] (01/04/2009) C ardiac Cath: EF - 60% M oderate hypokinesis of the anterolateral segment. N ormal left heart hemodynamics. % Left Main stenosis: 50% left main. % CX stenosis: 50% proximal. % 1st Diagonal stenosis: 80% proximal % LAD stenosis: 40% mid % RCA stenosis: 99% proixmal, 80% distal. [facility] (12/19/2003) Orders: C omplete Echo ([id number]) Rangel Slaughter MD paf, stable will inc rease sotolol and repeat holter: H is updated medication list for this problem includes: Aspirin 325 Mg Tabs (Aspirin) ..... One tab daily Sotalol Hcl 80 Mg Tabs (Sotalol hcl) ..... 1/2 tablet by mouth twice daily Orders: H olter Monitor 24 Hr ([id number]) Rangel Slaughter MD paf, stable will inc rease sotolol and repeat holter: H is updated medication list for this problem includes: Niaspan 1000 Mg Tbcr (Niacin (antihyperlipidemic)) ..... Two tabs. at bedtime Caduet 5-10 Mg Tabs (Amlodipine-atorvastatin) ..... One tab. daily BP today: 142/72 Prior BP: 139/84 (01/17/2009) Rangel Slaughter MD paf, stable will increase sotolo l and repeat holter Rangel Slaughter MD paf, stable will inc rease sotolol and repeat holter: H is updated medication list for this problem includes: Niaspan 1000 Mg Tbcr (Niacin (antihyperlipidemic)) ..... Two tabs. at bedtime Altace 10 Mg Caps (Ramipril) ..... One tab. daily Caduet 5-10 Mg Tabs (Amlodipine-atorvastatin) ..... One tab. daily Aspirin 325 Mg Tabs (Aspirin) ..... One tab daily Sotalol Hcl 80 Mg Tabs (Sotalol hcl) ..... 1/2 tablet by mouth twice daily BP today: 142/72 Prior BP: 139/84 (01/17/2009) N uclear Stress Findings: Patient first got on treadmill. HR went up to 150 but developed bbb and looked like vtach. Patient had no symptoms. Test was started over as adenosine A denosine infusion per protocol N o undue symptoms or arrhythmias N o significant ST segment depression S table hemodynamics R adiopharmaceutical injected at maximal coronary vasodilation 6. Normal left ventricular systolic function with a calculated ejection fraction of 71%. N o obvious significant scintigraphic evidence of myocardial ischemia or scar. [facility] (01/04/2009) C ardiac Cath: EF - 60% M oderate hypokinesis of the anterolateral segment. N ormal left heart hemodynamics. % Left Main stenosis: 50% left main. % CX stenosis: 50% proximal. % 1st Diagonal stenosis: 80% proximal % LAD stenosis: 40% mid % RCA stenosis: 99% proixmal, 80% distal. [facility] (12/19/2003) Rangel Slaughter MD paf, stable will inc rease sotolol and repeat holter: H is updated medication list for this problem includes: Altace 10 Mg Caps (Ramipril) ..... One tab. daily Caduet 5-10 Mg Tabs (Amlodipine-atorvastatin) ..... One tab. daily Aspirin 325 Mg Tabs (Aspirin) ..... One tab daily Sotalol Hcl 80 Mg Tabs (Sotalol hcl) ..... 1/2 tablet by mouth twice daily BP today: 142/72 P rior BP: 139/84 (01/17/2009) Rangel Slaughter MD paf, won work up Rangel Perez paf, won work up: H is updated medication list for this problem includes: Altace 10 Mg Caps (Ramipril) ..... One tab. daily Tenormin 25 Mg Tabs (Atenolol) ..... One tab. daily to prevent atrial fib. BP today: 158/80 Prior BP: 127/78 (12/14/2008) E chocardiogram: EF - 60%. M Ild distal septal hypokinesis of the left ventricle. M Ild diastolic dysfunction. T hickened mitral valve. T hickened aortic valve. T race mitral regurgitation. T race tricuspid regurgitation. [facility] (12/01/2006) N uclear Stress Findings: The test is considered to be negative by ECG criteria. [facility] (02/20/2004) C ardiac Cath: EF - 60% M oderate hypokinesis of the anterolateral segment. N ormal left heart hemodynamics. % Left Main stenosis: 50% left main. % CX stenosis: 50% proximal. % 1st Diagonal stenosis: 80% proximal % LAD stenosis: 40% mid % RCA stenosis: 99% proixmal, 80% distal. [facility] (12/19/2003) Rangel Slaughter MD paf, won work up: H is updated medication list for this problem includes: Altace 10 Mg Caps (Ramipril) ..... One tab. daily Glimepiride 2 Mg Tabs (Glimepiride) ..... 1 tablet by mouth daily Aspirin 325 Mg Tabs (Aspirin) ..... One tab daily BP today: 158/80 Prior BP: 127/78 (12/14/2008) Rangel Slaughter MD paf, won work up: H is updated medication list for this problem includes: Altace 10 Mg Caps (Ramipril) ..... One tab. daily Aspirin 325 Mg Tabs (Aspirin) ..... One tab daily Tenormin 25 Mg Tabs (Atenolol) ..... One tab. daily to prevent atrial fib. BP today: 158/80 Prior BP: 127/78 (12/14/2008) N uclear Stress Findings: The test is considered to be negative by ECG criteria. [facility] (02/20/2004) C ardiac Cath: EF - 60% M oderate hypokinesis of the anterolateral segment. N ormal left heart hemodynamics. % Left Main stenosis: 50% left main. % CX stenosis: 50% proximal. % 1st Diagonal stenosis: 80% proximal % LAD stenosis: 40% mid % RCA stenosis: 99% proixmal, 80% distal. [facility] (12/19/2003) Rangel Slaughter MD won grossman work up: H is updated medication list for this problem includes: Aspirin 325 Mg Tabs (Aspirin) ..... One tab daily Tenormin 25 Mg Tabs (Atenolol) ..... One tab. daily to prevent atrial fib. BP today: 158/80 Prior BP: 127/78 (12/14/2008) N uclear Stress Findings: The test is considered to be negative by ECG criteria. [facility] (02/20/2004) E chocardiogram: EF - 60%. M Ild distal septal hypokinesis of the left ventricle. M Ild diastolic dysfunction. T hickened mitral valve. T hickened aortic valve. T race mitral regurgitation. T race tricuspid regurgitation. [facility] (12/01/2006) C ardiac Cath: EF - 60% M oderate hypokinesis of the anterolateral segment. N ormal left heart hemodynamics. % Left Main stenosis: 50% left main. % CX stenosis: 50% proximal. % 1st Diagonal stenosis: 80% proximal % LAD stenosis: 40% mid % RCA stenosis: 99% proixmal, 80% distal. [facility] (12/19/2003) Orders: H olter Monitor 24 Hr ([id number]) Rangel Slaughter MD won grossman work up: H is updated medication list for this problem includes: Niaspan 1000 Mg Tbcr (Niacin (antihyperlipidemic)) ..... Two tabs. at bedtime Caduet 5-10 Mg Tabs (Amlodipine-atorvastatin) ..... One tab. daily BP today: 158/80 Prior BP: 127/78 (12/14/2008) Rangel Slaughter MD won grossman work up Rangel Perez won grossman work up: H is updated medication list for this problem includes: Niaspan 1000 Mg Tbcr (Niacin (antihyperlipidemic)) ..... Two tabs. at bedtime Altace 10 Mg Caps (Ramipril) ..... One tab. daily Caduet 5-10 Mg Tabs (Amlodipine-atorvastatin) ..... One tab. daily Aspirin 325 Mg Tabs (Aspirin) ..... One tab daily Tenormin 25 Mg Tabs (Atenolol) ..... One tab. daily to prevent atrial fib. BP today: 158/80 Prior BP: 127/78 (12/14/2008) N uclear Stress Findings: The test is considered to be negative by ECG criteria. [facility] (02/20/2004) C ardiac Cath: EF - 60% M oderate hypokinesis of the anterolateral segment. N ormal left heart hemodynamics. % Left Main stenosis: 50% left main. % CX stenosis: 50% proximal. % 1st Diagonal stenosis: 80% proximal % LAD stenosis: 40% mid % RCA stenosis: 99% proixmal, 80% distal. [facility] (12/19/2003) Rangel Slaughter MD paf, won work up: H is updated medication list for this problem includes: Altace 10 Mg Caps (Ramipril) ..... One tab. daily Caduet 5-10 Mg Tabs (Amlodipine-atorvastatin) ..... One tab. daily Aspirin 325 Mg Tabs (Aspirin) ..... One tab daily Tenormin 25 Mg Tabs (Atenolol) ..... One tab. daily to prevent atrial fib. BP today: 158/80 P rior BP: 127/78 (12/14/2008) Rangel Slaughter MD stable cad: H is updated medication list for this problem includes: Altace 10 Mg Caps (Ramipril) ..... One tab. daily BP today: 127/78 Prior BP: / () E chocardiogram: EF - 60%. MIld distal septal hypokinesis of the left ventricle. M Ild diastolic dysfunction. T hickened mitral valve. T hickened aortic valve. T race mitral regurgitation. T race tricuspid regurgitation. [facility] (12/01/2006) N uclear Stress Findings: The test is considered to be negative by ECG criteria. [facility] (02/20/2004) C ardiac Cath: EF - 60% M oderate hypokinesis of the anterolateral segment. N ormal left heart hemodynamics. % Left Main stenosis: 50% left main. % CX stenosis: 50% proximal. % 1st Diagonal stenosis: 80% proximal % LAD stenosis: 40% mid % RCA stenosis: 99% proixmal, 80% distal. [facility] (12/19/2003) Rangel Slaughter MD stable cad: H is updated medication list for this problem includes: Altace 10 Mg Caps (Ramipril) ..... One tab. daily Glimepiride 2 Mg Tabs (Glimepiride) ..... 1 tablet by mouth daily Aspirin 81 Mg Tabs (Aspirin) ..... One tab. daily BP today: 127/78 Prior BP: / () Rangel Slaughter MD stable cad: H is updated medication list for this problem includes: Niaspan 1000 Mg Tbcr (Niacin (antihyperlipidemic)) ..... Two tabs. at bedtime Caduet 5-10 Mg Tabs (Amlodipine-atorvastatin) ..... One tab. daily BP today: 127/78 Prior BP: / () Rangel Slaughter MD stable cad: H is updated medication list for this problem includes: Aspirin 81 Mg Tabs (Aspirin) ..... One tab. daily Rangel Slaughter MD stable cad: H is updated medication list for this problem includes: Altace 10 Mg Caps (Ramipril) ..... One tab. daily Aspirin 81 Mg Tabs (Aspirin) ..... One tab. daily Orders: Complete Echo ([id number]) BP today: 127/78 Prior BP: / () N uclear Stress Findings: The test is considered to be negative by ECG criteria. [facility] (02/20/2004) C ardiac Cath: EF - 60% M oderate hypokinesis of the anterolateral segment. N ormal left heart hemodynamics. % Left Main stenosis: 50% left main. % CX stenosis: 50% proximal. % 1st Diagonal stenosis: 80% proximal % LAD stenosis: 40% mid % RCA stenosis: 99% proixmal, 80% distal. [facility] (12/19/2003) Rangel Slaughter MD stable cad: H is updated medication list for this problem includes: Niaspan 1000 Mg Tbcr (Niacin (antihyperlipidemic)) ..... Two tabs. at bedtime Altace 10 Mg Caps (Ramipril) ..... One tab. daily Caduet 5-10 Mg Tabs (Amlodipine-atorvastatin) ..... One tab. daily Aspirin 81 Mg Tabs (Aspirin) ..... One tab. daily Orders: S tress Test - Nuclear (76623) BP today: 127/78 Prior BP: / () N uclear Stress Findings: The test is considered to be negative by ECG criteria. [facility] (02/20/2004) C ardiac Cath: EF - 60% M oderate hypokinesis of the anterolateral segment. N ormal left heart hemodynamics. % Left Main stenosis: 50% left main. % CX stenosis: 50% proximal. % 1st Diagonal stenosis: 80% proximal % LAD stenosis: 40% mid % RCA stenosis: 99% proixmal, 80% distal. [facility] (12/19/2003) Rangel Slaughter MD stable cad Rangel Slaughter MD stable cad: H is updated medication list for this problem includes: Altace 10 Mg Caps (Ramipril) ..... One tab. daily Caduet 5-10 Mg Tabs (Amlodipine-atorvastatin) ..... One tab. daily Aspirin 81 Mg Tabs (Aspirin) ..... One tab. daily Orders: E KG ([id number]) BP today: 127/78 Rangel Slaughter MD Date Name MAGNESIUM CBC (H/H, RBC, INDIC ES, WBC, PLT) COMPREHENSIVE METABO LIC PANEL, W/EGFR Complete Echo PARTIAL THROMBOPLAST IN TIME, ACTIVATED URINALYSIS, COMPLETE W/REFLEX TO CULTURE COMPREHENSIVE METABO LIC PANEL W/EGFR PROTHROMBIN TIME WIT H INR CBC (INCLUDES DIFF/P LT) Complete Echo PROBNP, N TERMINAL BASIC METABOLIC PANE L W/EGFR LIPID PANEL CRP, high sensitivit y Lipoprotein (a) Complete Echo Microalb/Creatinine Urine, Random Complete Echo RPM (remote patient monitoring) C-REACTIVE PROTEIN HEPATITIS PANEL COMPREHENSIVE METABO LIC PANEL, W/EGFR RPM (remote patient monitoring) Complete Echo RPM (remote patient monitoring) Complete Echo PROBNP, N TERMINAL Complete Echo PROBNP, N TERMINAL BASIC METABOLIC PANE L W/EGFR Renal Artery Duplex Complete Echo IRON AND TOTAL IRON BINDING CAPACITY FERRITIN DLCO - 24433 FRC - 72687 FVC - 81049 MAGNESIUM Cardiac Cath - L/R- [facility] PROTHROMBIN TIME WIT H INR Partial Thromboplast in Time, Activated THYROID PANEL WITH T SH, 3RD GENERATION LIPID PANEL CBC (H/H, RBC, INDIC ES, WBC, PLT) PROBNP, N TERMINAL COMPREHENSIVE METABO LIC PANEL, W/EGFR PROTHROMBIN TIME WIT H INR LIPID PANEL CBC (INCLUDES DIFF/P LT) BASIC METABOLIC PANE L W/EGFR STR - Adenosine COMPREHENSIVE METABO LIC PANEL, W/EGFR HEMOGLOBIN A1c URINALYSIS, RANDOM, MICROALB/CREATININE Vitamin D, 25-Hydrox y LIPID PANEL PROBNP, N TERMINAL FERRITIN IRON AND TOTAL IRON BINDING CAPACITY Complete Echo IRON AND TOTAL IRON BINDING CAPACITY FERRITIN CBC (INCLUDES DIFF/P LT) VITAMIN D, 25-HYDROX Y, LC/MS/MS CBC (INCLUDES DIFF/P LT) HEMOGLOBIN A1c VITAMIN B12 IRON AND TOTAL IRON BINDING CAPACITY FOLATE, SERUM FERRITIN STR - Adenosine Complete Echo Aortic Abdominal Ult rasound HEMOGLOBIN A1c PROBNP, N TERMINAL THYROID PANEL WITH T SH, 3RD GENERATION CBC (INCLUDES DIFF/P LT) LIPID PANEL COMPREHENSIVE METABO LIC PANEL W/EGFR Carotid Duplex Bilat eral Complete Echo DLCO - 10130 FRC - 93786 FVC - 97520 X-Ray, Chest, PA & L ateral DLCO - 09085 FRC - 26278 FVC - 86070 THYROID PANEL WITH T SH, 3RD GENERATION COMPREHENSIVE METABO LIC PANEL W/EGFR DLCO - 10545 FRC - 38826 FVC - 95159 Sleep Study Home X-Ray, Chest, PA & L ateral LIPID PANEL CBC (INCLUDES DIFF/P LT) HEMOGLOBIN A1c PROBNP, N TERMINAL COMPREHENSIVE METABO LIC PANEL W/EGFR Complete Echo ABLATION w/ Anesthes ia B TYPE NATRIURETIC P EPTIDE (BNP) COMPREHENSIVE METABO LIC PANEL W/EGFR Complete Echo Complete Echo Arterial Duplex Uppe r Extremity Bilateral Carotid Duplex Bilat eral STR - Adenosine Complete Echo Dual Chamber with Re programming Cardioversion - Complete Echo Dual Chamber with Re programming Pacemaker Dual Chamb er - GC Spirometry ABLATION w/ Anesthes ia Spirometry Carotid Duplex Bilat eral Mobile Cardiac Tele Complete Echo Stress Test - [place] Holter Monitor 24 Hr Complete Echo Holter Monitor 24 Hr Complete Echo BASIC METABOLIC PANE L W/EGFR Holter Monitor 24 Hr Holter Monitor 24 Hr THYROID PANEL WITH T SH, 3RD GENERATION Holter Monitor 24 Hr Complete Echo Holter Monitor 24 Hr Aortic Abdominal Unt rasound Stress Test - Nuclea r Complete Echo HISTORY OF PROCEDURES Procedure Date Procedure Name Provider Procedure Notes S tatus Schedule Followup Rosario guillermo MD [address] FAY completed EKG Rosario craven MD completed EKG Rangel Slaughter MD complete d EKG Rangel Slaughter MD complete d EKG Rangel Slaughter MD complete d ICM Interrogation, Remote (Prof) Rangel Slaughter MD INTERROGATION EVAL REMOTE </30 D CV MNTR SYS completed Pacemaker Interrogation, Remote (Tech) Rangel Slaughter MD INTERROGATION REMOTE </90 D PROVIDER SCRIBE REVIEW completed Pacemaker Interrogation, Remote (Prof) Rangel Slaughter MD INTERROGATION EVAL REMOTE </90 D 1/2/PULL WORKER LEAD P completed ICM Interrogation, Remote (Prof) Rangel Slaughter MD INTERROGATION EVAL REMOTE </30 D CV MNTR SYS completed ICM Interrogation, Remote (Tech) Rangel Serota MD INTERROGATION EVAL REMOTE </30 D TECH REVIEW completed ICM Interrogation, Remote (Prof) Rangel Serota MD INTERROGATION EVAL REMOTE </30 D CV MNTR SYS completed ICM Interrogation, Remote (Tech) Rangel Serota MD INTERROGATION EVAL REMOTE </30 D TECH REVIEW completed ICM Interrogation, Remote (Prof) Rangel Serota MD INTERROGATION EVAL REMOTE </30 D CV MNTR SYS completed Pacemaker Interrogation, Remote (Tech) Rangel Serota MD INTERROGATION REMOTE </90 D PROVIDER SCRIBE REVIEW completed Pacemaker Interrogation, Remote (Prof) Rangel Serota MD INTERROGATION EVAL REMOTE </90 D 1/2/PULL WORKER LEAD P completed ICM Interrogation, Remote (Prof) Rangel Serota MD INTERROGATION EVAL REMOTE </30 D CV MNTR SYS completed ICM Interrogation, Remote (Tech) Rangel Serota MD INTERROGATION EVAL REMOTE </30 D TECH REVIEW completed ICM Interrogation, Remote (Prof) Rangel Serota MD INTERROGATION EVAL REMOTE </30 D CV MNTR SYS completed ICM Interrogation, Remote (Tech) Rangel Serota MD INTERROGATION EVAL REMOTE </30 D TECH REVIEW completed ICM Interrogation, Remote (Prof) Rangel Serota MD INTERROGATION EVAL REMOTE </30 D CV MNTR SYS completed Pacemaker Interrogation, Remote (Tech) Rangel Serota MD INTERROGATION REMOTE </90 D PROVIDER SCRIBE REVIEW completed Pacemaker Interrogation, Remote (Prof) Rangel Serota MD INTERROGATION EVAL REMOTE </90 D 1/2/PULL WORKER LEAD P completed ICM Interrogation, Remote (Prof) Rangel Serota MD INTERROGATION EVAL REMOTE </30 D CV MNTR SYS completed ICM Interrogation, Remote (Tech) Rangel Serota MD INTERROGATION EVAL REMOTE </30 D TECH REVIEW completed ICM Interrogation, Remote (Prof) Rangel Serota MD INTERROGATION EVAL REMOTE </30 D CV MNTR SYS completed ICM Interrogation, Remote (Tech) Rangel Slaughter MD INTERROGATION EVAL REMOTE </30 D TECH REVIEW completed ICM Interrogation, Remote (Prof) Rangel Slaughter MD INTERROGATION EVAL REMOTE </30 D CV MNTR SYS completed Pacemaker Interrogation, Remote (Tech) Rangel Slaughter MD INTERROGATION REMOTE </90 D PROVIDER SCRIBE REVIEW completed Pacemaker Interrogation, Remote (Prof) Rangel Slaughter MD INTERROGATION EVAL REMOTE </90 D 1/2/PULL WORKER LEAD P completed FVC / MVV - 06398 Rosario guillermo MD completed FRC - 36805 Rosario craven MD completed SpO2 w/o 6min walk/titration Rosario Fay MD completed DLCO - 62650 Rosario craven MD completed EKG Rosario craven MD completed ICM Interrogation, Remote (Prof) Rangel Slaughter MD INTERROGATION EVAL REMOTE </30 D CV MNTR SYS completed ICM Interrogation, Remote (Tech) Rangel Slaughter MD INTERROGATION EVAL REMOTE </30 D TECH REVIEW completed ICM Interrogation, Remote (Prof) Rangel Slaughter MD INTERROGATION EVAL REMOTE </30 D CV MNTR SYS completed ICM Interrogation, Remote (Tech) Rangel Slaughter MD INTERROGATION EVAL REMOTE </30 D TECH REVIEW completed ICM Interrogation, Remote (Prof) Rangel Slaughter MD INTERROGATION EVAL REMOTE </30 D CV MNTR SYS completed Pacemaker Interrogation, Remote (Tech) Rangel Slaughter MD INTERROGATION REMOTE </90 D PROVIDER SCRIBE REVIEW completed Pacemaker Interrogation, Remote (Prof) Rangel Slaughter MD INTERROGATION EVAL REMOTE </90 D 1/2/PULL WORKER LEAD P completed Regadenoson, 4 units Rangel Slaughter MD completed Cardiolite, 2 units Rangel Slaughter MD completed SPECT Images Herb Rosales MD complet ed Stress EKG Herb Rosales MD completed ICM Interrogation, Remote (Prof) Rangel Slaughter MD INTERROGATION EVAL REMOTE </30 D CV MNTR SYS completed ICM Interrogation, Remote (Tech) Rangel Slaughter MD INTERROGATION EVAL REMOTE </30 D TECH REVIEW completed EKG Rangel Slaughter MD complete d ICM Interrogation, Remote (Prof) Rangel Slaughter MD INTERROGATION EVAL REMOTE </30 D CV MNTR SYS completed ICM Interrogation, Remote (Tech) Rangel Slaughter MD INTERROGATION EVAL REMOTE </30 D TECH REVIEW completed ICM Interrogation, Remote (Prof) Rangel Slaughter MD INTERROGATION EVAL REMOTE </30 D CV MNTR SYS completed Pacemaker Interrogation, Remote (Tech) Rangel Slaughter MD INTERROGATION REMOTE </90 D PROVIDER SCRIBE REVIEW completed Pacemaker Interrogation, Remote (Prof) Rangel Slaughter MD INTERROGATION EVAL REMOTE </90 D 1/2/PULL WORKER LEAD P completed ICM Interrogation, Remote (Prof) Rangel Slaughter MD INTERROGATION EVAL REMOTE </30 D CV MNTR SYS completed ICM Interrogation, Remote (Tech) Rangel Slaughter MD INTERROGATION EVAL REMOTE </30 D TECH REVIEW completed ICM Interrogation, Remote (Prof) Rangel Slaughter MD INTERROGATION EVAL REMOTE </30 D CV MNTR SYS completed ICM Interrogation, Remote (Tech) Rangel Serotmac HUNTER INTERROGATION EVAL REMOTE </30 D TECH REVIEW completed ICM Interrogation, Remote (Prof) Rangel Slaughter MD INTERROGATION EVAL REMOTE </30 D CV MNTR SYS completed Pacemaker Interrogation, Remote (Tech) Rangel Serotmac HUNTER INTERROGATION REMOTE </90 D PROVIDER SCRIBE REVIEW completed Pacemaker Interrogation, Remote (Prof) Rangel Slaughter MD INTERROGATION EVAL REMOTE </90 D 1/2/PULL WORKER LEAD P completed ICM Interrogation, Remote (Prof) Rangel Slaughter MD INTERROGATION EVAL REMOTE </30 D CV MNTR SYS completed ICM Interrogation, Remote (Tech) Rangel Slaughter MD INTERROGATION EVAL REMOTE </30 D TECH REVIEW completed ICM Interrogation, Remote (Prof) Rangel Slaughter MD INTERROGATION EVAL REMOTE </30 D CV MNTR SYS completed ICM Interrogation, Remote (Tech) Rangel Slaughter MD INTERROGATION EVAL REMOTE </30 D TECH REVIEW completed ICM Interrogation, Remote (Prof) Rangel Slaughter MD INTERROGATION EVAL REMOTE </30 D CV MNTR SYS completed Pacemaker Interrogation, Remote (Tech) Rangel Slaughter MD INTERROGATION REMOTE </90 D PROVIDER SCRIBE REVIEW completed Pacemaker Interrogation, Remote (Prof) Rangel Slaughter MD INTERROGATION EVAL REMOTE </90 D 1/2/PULL WORKER LEAD P completed ICM Interrogation, Remote (Prof) Rangel Slaughter MD INTERROGATION EVAL REMOTE </30 D CV MNTR SYS completed ICM Interrogation, Remote (Tech) Rangel Slaughter MD INTERROGATION EVAL REMOTE </30 D TECH REVIEW completed Injectafer 750mg Rangel Slaughter MD co mpleted Therapeutic IV Infus ion up to 1 hour Rangel Slaughter MD completed Injectafer 750mg Rangel Slaughter MD co mpleted Therapeutic IV Infus ion up to 1 hour Rangel Slaughter MD completed Pacemaker Interrogation, Remote (Tech) Rangel Slaughter MD INTERROGATION REMOTE </90 D PROVIDER SCRIBE REVIEW completed Pacemaker Interrogation, Remote (Prof) Rangel Slaughter MD INTERROGATION EVAL REMOTE </90 D 1/2/PULL WORKER LEAD P completed SNOMED-CT: [id number] Current Medications Documented Rangel Slaughter MD completed ICM Interrogation, Remote (Prof) Rangel Slaughter MD INTERROGATION EVAL REMOTE </30 D CV MNTR SYS completed ICM Interrogation, Remote (Tech) Rangel Slaughter MD INTERROGATION EVAL REMOTE </30 D TECH REVIEW completed ICM Interrogation, Remote (Prof) Rangel Slaughter MD INTERROGATION EVAL REMOTE </30 D CV MNTR SYS completed ICM Interrogation, Remote (Tech) Rangel Slaughter MD INTERROGATION EVAL REMOTE </30 D TECH REVIEW completed ICM Interrogation, Remote (Prof) Rangel Slaughter MD INTERROGATION EVAL REMOTE </30 D CV MNTR SYS completed Pacemaker Interrogation, Remote (Tech) Rangel Slaughter MD INTERROGATION REMOTE </90 D PROVIDER SCRIBE REVIEW completed Pacemaker Interrogation, Remote (Prof) Rangel Slaughter MD INTERROGATION EVAL REMOTE </90 D 1/2/PULL WORKER LEAD P completed ICM Interrogation, Remote (Prof) Rangel Slaughter MD INTERROGATION EVAL REMOTE </30 D CV MNTR SYS completed ICM Interrogation, Remote (Tech) Rangel Slaughter MD INTERROGATION EVAL REMOTE </30 D TECH REVIEW completed ICM Interrogation, Remote (Prof) Rangel Slaughter MD INTERROGATION EVAL REMOTE </30 D CV MNTR SYS completed ICM Interrogation, Remote (Tech) Rangel Slaughter MD INTERROGATION EVAL REMOTE </30 D TECH REVIEW completed SNOMED-CT: [id number] Physical Exam, Performed: Pulse Exam of Foot Rosario Fay MD completed EKG Rosario craven MD completed SNOMED-CT: [id number] Current Medications Documented Rosario Fay MD completed FVC - 23810 Rosario craven MD completed FRC - 18416 Rosario craven MD completed DLCO - 52813 Rosario craven MD completed ICM Interrogation, Remote (Prof) Rangel Slaughter MD INTERROGATION EVAL REMOTE </30 D CV MNTR SYS completed Pacemaker Interrogation, Remote (Tech) Rangel Slaughter MD INTERROGATION REMOTE </90 D PROVIDER SCRIBE REVIEW completed Pacemaker Interrogation, Remote (Prof) Rangel Slaughter MD INTERROGATION EVAL REMOTE </90 D 1/2/PULL WORKER LEAD P completed ICM Interrogation, Remote (Prof) Rangel Slaughter MD INTERROGATION EVAL REMOTE </30 D CV MNTR SYS completed ICM Interrogation, Remote (Tech) Rangel Slaughter MD INTERROGATION EVAL REMOTE </30 D TECH REVIEW completed ICM Interrogation, Remote (Prof) Rangel Slaughter MD INTERROGATION EVAL REMOTE </30 D CV MNTR SYS completed ICM Interrogation, Remote (Tech) Rangel Slaughter MD INTERROGATION EVAL REMOTE </30 D TECH REVIEW completed ICM Interrogation, Remote (Prof) Rangel Slaughter MD INTERROGATION EVAL REMOTE </30 D CV MNTR SYS completed Pacemaker Interrogation, Remote (Tech) Rangel Slaughter MD INTERROGATION REMOTE </90 D PROVIDER SCRIBE REVIEW completed Pacemaker Interrogation, Remote (Prof) Rangel Slaughter MD INTERROGATION EVAL REMOTE </90 D 1/2/PULL WORKER LEAD P completed ICM Interrogation, Remote (Prof) Rangel Slaughter MD INTERROGATION EVAL REMOTE </30 D CV MNTR SYS completed ICM Interrogation, Remote (Tech) Rangel Slaughter MD INTERROGATION EVAL REMOTE </30 D TECH REVIEW completed EKG Rosario craven MD completed EKG Rosario craven MD completed EKG Rosario craven MD completed EKG Rosario craven MD STARTING SOTALOL - EKG ON Thursday, Thursday and ThursdayDecember 30, , completed Schedule Followup Rosario guillermo MD in 6 months completed SNOMED-CT: [id number] Smoking Cessation Counseling Rosario Fay MD completed SNOMED-CT: 28413554 Physical Exam, Performed: Pulse Exam of Foot Rosario Fay MD completed EKG Rosario craven MD completed SNOMED-CT: [id number] Current Medications Documented Rosario Fay MD completed ICM Interrogation, Remote (Prof) Rangel Slaughter MD INTERROGATION EVAL REMOTE </30 D CV MNTR SYS completed ICM Interrogation, Remote (Tech) Rangel Slaughter MD INTERROGATION EVAL REMOTE </30 D TECH REVIEW completed SNOMED-CT: 99396383 Physical Exam, Performed: Pulse Exam of Foot Rangel Slaughter MD completed SNOMED-CT: [id number] Current Medications Documented Rangel Slaughter MD completed ICM Interrogation, Remote (Prof) Rangel Slaughter MD INTERROGATION EVAL REMOTE </30 D CV MNTR SYS completed Pacemaker Interrogation, Remote (Tech) Rangel Slaughter MD INTERROGATION REMOTE </90 D PROVIDER SCRIBE REVIEW completed Pacemaker Interrogation, Remote (Prof) Rangel Slaughter MD INTERROGATION EVAL REMOTE </90 D 1/2/PULL WORKER LEAD P completed ICM Interrogation, Remote (Prof) Rangel Slaughter MD INTERROGATION EVAL REMOTE </30 D CV MNTR SYS completed ICM Interrogation, Remote (Tech) Rangel Slaughter MD INTERROGATION EVAL REMOTE </30 D TECH REVIEW completed FVC - 28602 Rosario craven MD completed FRC - 23733 Rosario craven MD completed DLCO - 14616 Rosario craven MD completed Schedule Followup Rosario guillermo MD 3 months completed SNOMED-CT: [id number] Smoking Cessation Counseling Rosario Fay MD completed SNOMED-CT: 87662446 Physical Exam, Performed: Pulse Exam of Foot Rosario Fay MD completed EKG Rosario craven MD completed SNOMED-CT: [id number] Current Medications Documented Rosario Fay MD completed ICM Interrogation, Remote (Prof) Rangel Slaughter MD INTERROGATION EVAL REMOTE </30 D CV MNTR SYS completed ICM Interrogation, Remote (Tech) Rangel Slaughter MD INTERROGATION EVAL REMOTE </30 D TECH REVIEW completed Pacemaker Interrogation, Remote (Tech) Rangel Slaughter MD INTERROGATION REMOTE </90 D PROVIDER SCRIBE REVIEW completed Pacemaker Interrogation, Remote (Prof) Rangel Slaughter MD INTERROGATION EVAL REMOTE </90 D 1/2/PULL WORKER LEAD P completed Schedule Followup Rosario guillermo MD 3 months completed SNOMED-CT: 999448383 Smoking Cessation Counseling Rosario Fay MD completed SNOMED-CT: 15074955 Physical Exam, Performed: Pulse Exam of Foot Rosario Fay MD completed EKG Rosario craven MD completed SNOMED-CT: 587207152904627 Current Medications Documented Rosario Fay MD completed ICM Interrogation, Remote (Prof) Rangel Slaughter MD INTERROGATION EVAL REMOTE </30 D CV MNTR SYS completed ICM Interrogation, Remote (Tech) Rangel Slaughter MD INTERROGATION EVAL REMOTE </30 D TECH REVIEW completed Schedule Followup Rosario guillermo MD 3/4 weeks completed SNOMED-CT: 87354807 Physical Exam, Performed: Pulse Exam of Foot Rosario Fay MD completed SNOMED-CT: 530766663 Smoking Cessation Counseling Rosario Fay MD completed EKG Rosario craven MD completed SNOMED-CT: 450971092949958 Current Medications Documented Rosario Fay MD completed SNOMED-CT: 234892031595911 Current Medications Documented Rangel Slaughter MD completed SNOMED-CT: 280200127 Smoking Cessation Counseling Rosario Fay MD completed SNOMED-CT: 90426300 Physical Exam, Performed: Pulse Exam of Foot Rosario Fay MD completed Schedule Followup Rosario guillermo MD [place] next thursday completed EKG Rosario craven MD completed SNOMED-CT: 884694084113048 Current Medications Documented Rosario Fay MD completed ICM Interrogation, Remote (Prof) Rangel Slaughter MD INTERROGATION EVAL REMOTE </30 D CV MNTR SYS completed ICM Interrogation, Remote (Tech) Rangel Slaughter MD INTERROGATION EVAL REMOTE </30 D TECH REVIEW completed FVC - 85260 Rangel Slaughter MD complet ed FRC - 98555 Rangel Slaughter MD complet ed DLCO - 27811 Rangel Slaughter MD comple tanja ICM Interrogation, Remote (Prof) Rangel Slaughter MD INTERROGATION EVAL REMOTE </30 D CV MNTR SYS completed Pacemaker Interrogation, Remote (Tech) Rangel Slaughter MD INTERROGATION REMOTE </90 D PROVIDER SCRIBE REVIEW completed Pacemaker Interrogation, Remote (Prof) Rangel Slaughter MD INTERROGATION EVAL REMOTE </90 D 1/2/PULL WORKER LEAD P completed EKG Rosario craven MD completed EKG Rosario craven MD completed EKG Rosario craven MD completed ICM Interrogation, Remote (Prof) Rangel Slaughter MD INTERROGATION EVAL REMOTE </30 D CV MNTR SYS completed ICM Interrogation, Remote (Tech) Rangel Slaughter MD INTERROGATION EVAL REMOTE </30 D TECH REVIEW completed ICM Interrogation, Remote (Prof) Rangel Slaughter MD INTERROGATION EVAL REMOTE </30 D CV MNTR SYS completed ICM Interrogation, Remote (Tech) Rangel Slaughter MD INTERROGATION EVAL REMOTE </30 D TECH REVIEW completed ICM Interrogation, Remote (Prof) Rangel Slaughter MD INTERROGATION EVAL REMOTE </30 D CV MNTR SYS completed Pacemaker Interrogation, Remote (Tech) Rangel Slaughter MD INTERROGATION REMOTE </90 D PROVIDER SCRIBE REVIEW completed Pacemaker Interrogation, Remote (Prof) Rangel Slaughter MD INTERROGATION EVAL REMOTE </90 D 1/2/PULL WORKER LEAD P completed ICM Interrogation, Remote (Prof) Rangel Serota INTERROGATION EVAL REMOTE </30 D CV MNTR SYS completed ICM Interrogation, Remote (Tech) Rangel Serota INTERROGATION EVAL REMOTE </30 D TECH REVIEW completed ICM Interrogation, Remote (Prof) Rangel Serotmac HUNTER INTERROGATION EVAL REMOTE </30 D CV MNTR SYS completed ICM Interrogation, Remote (Tech) Rangel Serota INTERROGATION EVAL REMOTE </30 D TECH REVIEW completed ICM Interrogation, Remote (Prof) Rangel Serotmac HUNTER INTERROGATION EVAL REMOTE </30 D CV MNTR SYS completed Pacemaker Interrogation, Remote (Tech) Rangel Serotmac HUNTER INTERROGATION REMOTE </90 D PROVIDER SCRIBE REVIEW completed Pacemaker Interrogation, Remote (Prof) Rangel Slaughter MD INTERROGATION EVAL REMOTE </90 D 1/2/PULL WORKER LEAD P completed ICM Interrogation, Remote (Prof) Rangel Serota INTERROGATION EVAL REMOTE </30 D CV MNTR SYS completed ICM Interrogation, Remote (Tech) Rangel Serotmac HUNTER INTERROGATION EVAL REMOTE </30 D TECH REVIEW completed ICM Interrogation, Remote (Prof) Rangel Serotmac HUNTER INTERROGATION EVAL REMOTE </30 D CV MNTR SYS completed ICM Interrogation, Remote (Tech) Rangel Serota INTERROGATION EVAL REMOTE </30 D TECH REVIEW completed ICM Interrogation, Remote (Prof) Rangel Serota INTERROGATION EVAL REMOTE </30 D CV MNTR SYS completed Pacemaker Interrogation, Remote (Tech) Rangel Serota INTERROGATION REMOTE </90 D PROVIDER SCRIBE REVIEW completed Pacemaker Interrogation, Remote (Prof) Rangel Serota INTERROGATION EVAL REMOTE </90 D 1/2/PULL WORKER LEAD P completed ICM Interrogation, Remote (Prof) Rangel Serota INTERROGATION EVAL REMOTE </30 D CV MNTR SYS completed ICM Interrogation, Remote (Tech) Rangel Serota INTERROGATION EVAL REMOTE </30 D TECH REVIEW completed EKG Rosario craven MD completed ICM Interrogation, Remote (Prof) Rangel Serota INTERROGATION EVAL REMOTE </30 D CV MNTR SYS completed Pacemaker Interrogation, Remote (Tech) Rangel Serota INTERROGATION REMOTE </90 D PROVIDER SCRIBE REVIEW completed Pacemaker Interrogation, Remote (Prof) Rangel Serota MD INTERROGATION EVAL REMOTE </90 D 1/2/PULL WORKER LEAD P completed ICM Interrogation, Remote (Prof) Rangel Serota INTERROGATION EVAL REMOTE </30 D CV MNTR SYS completed Pacemaker Interrogation, Remote (Tech) Rangel Serota INTERROGATION REMOTE </90 D PROVIDER SCRIBE REVIEW completed Pacemaker Interrogation, Remote (Prof) Rangel Serota INTERROGATION EVAL REMOTE </90 D 1/2/PULL WORKER LEAD P completed ICM Interrogation, Remote (Prof) Rangel Serota MD INTERROGATION EVAL REMOTE </30 D CV MNTR SYS completed ICM Interrogation, Remote (Tech) Rangel Serota INTERROGATION EVAL REMOTE </30 D TECH REVIEW completed ICM Interrogation, Remote (Prof) Rangel Serota INTERROGATION EVAL REMOTE </30 D CV MNTR SYS completed ICM Interrogation, Remote (Tech) Rangel Serota INTERROGATION EVAL REMOTE </30 D TECH REVIEW completed Pacemaker Interrogation, Remote (Tech) Rangel Serota MD INTERROGATION REMOTE </90 D PROVIDER SCRIBE REVIEW completed Pacemaker Interrogation, Remote (Prof) Rangel Serota INTERROGATION EVAL REMOTE </90 D 1/2/PULL WORKER LEAD P completed ICM Interrogation, Remote (Prof) Rangel Serota MD INTERROGATION EVAL REMOTE </30 D CV MNTR SYS completed ICM Interrogation, Remote (Tech) Rangel Serota MD INTERROGATION EVAL REMOTE </30 D TECH REVIEW completed ICM Interrogation, Remote (Prof) Rangel Slaughter MD INTERROGATION EVAL REMOTE </30 D CV MNTR SYS completed ICM Interrogation, Remote (Tech) Rangel Slaughter MD INTERROGATION EVAL REMOTE </30 D TECH REVIEW completed EKG Rangel Slaughter MD complete d ICM Interrogation, Remote (Prof) Rangel Slaughter MD INTERROGATION EVAL REMOTE </30 D CV MNTR SYS completed AICD Interrogation, Remote (Tech) Rangel Slaughter MD INTERROGATION REMOTE </90 D PROVIDER SCRIBE REVIEW completed AICD Interrogation, Remote (Prof) Rangel Slaughter MD INTERROGATION EVAL REMOTE </90 D 1/2/> LD CVDFB completed ICM Interrogation, Remote (Prof) Rangel Slaughter MD INTERROGATION EVAL REMOTE </30 D CV MNTR SYS completed ICM Interrogation, Remote (Tech) Rangel Slaughter MD INTERROGATION EVAL REMOTE </30 D TECH REVIEW completed ePrescribe - Check t his box if eRx is used Rosario Fay MD completed EKG Rosario craven MD completed EKG Rosario craven MD completed EKG Rosario craven MD completed ICM Interrogation, Remote (Prof) Rangel Slaughter MD INTERROGATION EVAL REMOTE </30 D CV MNTR SYS completed ICM Interrogation, Remote (Tech) Rangel Slaughter MD INTERROGATION EVAL REMOTE </30 D TECH REVIEW completed TI, OPTIVOL, ICM Interrogation (Office) Rangel Slaughter MD INTERROGATION EVAL F2F IMPLANTABLE CV MNTR SYS completed Pacemaker Programmin g (Multiple Lead, BI-V) Rangel Slaughter MD PROGRAM EVAL IMPLANTABLE IN PRSN MULTI LD PACER completed ePrescribe - Check t his box if eRx is used Rangel Slaughter MD completed TI, OPTIVOL, ICM Interrogation (Office) Rosario Fay MD INTERROGATION EVAL F2F IMPLANTABLE CV MNTR SYS completed AICD Programming (Multiple Lead, BI-V) Rosario Fay MD PROGRM EVAL IMPLANTABLE IN PRSN PULL WORKER LD CARD/DFB completed TI, OPTIVOL, ICM Interrogation (Office) Rosario Fay MD INTERROGATION EVAL F2F IMPLANTABLE CV MNTR SYS completed Pacemaker Programmin g (Multiple Lead, BI-V) Rosario Fay MD PROGRAM EVAL IMPLANTABLE IN PRSN MULTI LD PACER completed TI, OPTIVOL, ICM Interrogation (Office) Rosario Fay MD INTERROGATION EVAL F2F IMPLANTABLE CV MNTR SYS completed Pacemaker Programmin g (Multiple Lead, BI-V) Rosario Fay MD PROGRAM EVAL IMPLANTABLE IN PRSN MULTI LD PACER completed ePrescribe - Check t his box if eRx is used Rosario Fay MD completed Schedule Followup Rosario guillermo MD in 1 week completed EKG Rosario craven MD completed ePrescribe - Check t his box if eRx is used Rosario Fay MD completed EKG Rosario craven MD completed ePrescribe - Check t his box if eRx is used Rosario Fay MD completed Schedule Followup Rosario guillermo MD 4 weeks completed EKG Rosario craven MD completed ePrescribe - Check t his box if eRx is used Rangel Slaughter MD completed EKG Rangel Slaughter MD complete d ePrescribe - Check t his box if eRx is used Rangel Slaughter MD completed EKG Rangel Slaughter MD complete d EKG Rangel Slaughter MD complete d EKG Rangel Slaughter MD complete d
--- OUTSIDE RECORDS SUMMARY | 2024-10-31 18:24 | XMS_ITS | Continuity of Care Document ---
Author Name [facility] Organization [facility] Care Team Providers Care Wet Trimmer Name Role Phone [facility] Unavailable Unavailable Problems Combined list of problems from Department of Defense and [facility] Affairs facilities. It does not include entries that were removed or entered in error. Problem Status Onset Date Problem Type Date of Resolution Comments Source Anxiety Active Condition [facility] Atrial fibrillation Active Condition Jul 16, 2010 Entered By: THOMAS CORMIER Comment: [facility] Entered By: THOMAS CORMIER Comment: had pacemaker put in 2012 [facility] Benign essential hypertension (SNOMED CT [id number]) Active Condition [facility] Chronic kidney disease Active Condition [facility] Coronary atherosclerosis (SNOMED CT 430975168) Active Condition Sep 12, 2004 Entered By: THOMAS CORMIER Comment: 6 vessel CABG [facility] Exposure to potentially hazardous substance Active Condition [facility] Gastroesophageal reflux disease Active Condition [facility] Hyperlipidemia Active Condition [facility] Iron deficiency anemia Active Condition [facility] Personal History of Venous Thrombosis and Embolism Active Condition [facility] Prostate cancer Active Condition Jun 12, 2005 Entered By: THOMAS CORMIER Comment: prostatectomy November 2004 [facility] Sensorineural hearing loss Active Condition [facility] Type 2 diabetes mellitus (SNOMED CT 64159588) Active Condition [facility] Vitamin B12 level below reference range Active Condition [facility] Vitamin D deficiency Active Condition [facility] Hypomagnesemia Inactive Condition 01/19/2024 [facility] Diagnosis: ICD-10-CM Z00.00 Encntr for general adult medical exam w/o abnormal findings Active Diagnosis [facility] Medications Combined list of outpatient medications from Department of Defense and Veterans Affairs facilities.Medications provided include 1) outpatient medications from the last 15 months, and 2) patient-reported medications. Medication Details Route Status Patient Instructions Prescription Expires Prescription Number Last Dispense Date Ordering Provider Order Date Order Qty Source APIXABAN 5MG TAB TAKE ONE TABLET BY MOUTH TWICE A DAY ORAL ACTIVE DANETTE CARIAS MD 2017 [facility] ATORVASTATI N [place] 80MG TAB TAKE ONE-HALF TABLET BY MOUTH EVERY EVENING ORAL ACTIVE DANETTE CARIAS MD 2016 [facility] CARVEDILOL 25MG TAB TAKE ONE TABLET BY MOUTH TWICE A DAY ORAL ACTIVE BRIAN,SHE LBY R 2022 [facility] CHOLECALCIF EUGENIO 50MCG (2,000UNIT) TAB TAKE ONE TABLET BY MOUTH ONCE A DAY ORAL ACTIVE BRIAN,SHE LBY R 2023 [facility] CYANOCOBALA MIN 1000MCG TAB TAKE ONE TABLET BY MOUTH ONCE A DAY ORAL ACTIVE BRIAN,SHE LBY R 2022 [facility] EMPAGLIFLOZ IN TAB,ORAL TAKE 10 MG BY MOUTH ONCE A DAY ORAL ACTIVE BRIAN,SHE LBY R 2022 [facility] FERROUS SO4 325MG TAB TAKE ONE TABLET BY MOUTH ONCE A DAY ORAL ACTIVE BRIAN,SHE LBY R 2022 [facility] FINERENONE 10MG TAB TAKE TWO TABLETS BY MOUTH ONCE A DAY ORAL ACTIVE BRIAN,SHE LBY R 2022 [facility] ICOSAPENT ETHYL 1GM CAP TAKE 1 CAPSULE BY MOUTH FOUR TIMES A DAY ORAL ACTIVE TORRES,SHE LBY R 2023 [facility] LORAZEPAM 1MG TAB TAKE ONE TABLET BY MOUTH AT BEDTIME NEEDED ORAL ACTIVE DANETTE CARIAS MD 2015 [facility] [place]ARTAN POTASSIUM 100MG TAB TAKE ONE-HALF TABLET BY MOUTH TWICE A DAY ORAL ACTIVE BRIAN,SHE LBY R 2022 [facility] METFORMIN HCL 750MG 24HR TAB,SA TAKE ONE TABLET BY MOUTH ONCE A DAY ORAL ACTIVE ZARA TORRES 2022 [facility] PANTOPRAZOL E NA 40MG TAB,EC TAKE ONE TABLET BY MOUTH EVERY MORNING ORAL ACTIVE DANETTE CARIAS MD 2015 [facility] Immunizations Combined list of available immunizations from the Department of Defense and Veterans Affairs facilities. Immunization Series Date Given Administered By Site Reaction Lot Number CVX Code Drug Sample Preparation Supervisor Status Comments Source COVID-19 ([employer]), MRNA, LNP-S, PF, JOSESITO-SUCROSE, 30 MCG/0.3 ML (AGES 12+ YEARS) 2023 PRUDENCIOSERASimon Spangler LEFT DELTO ID [id number] complet ed [facility] COVID-19 ([employer]), MRNA, LNP-S, PF, 30 MCG/0.3 ML DOSE 5 2021 208 complet ed [facility] INFLUENZA, UNSPECIFIED FORMULATION 2021 88 complet ed [facility] COVID-19 ([employer]), MRNA, LNP-S, BIVALENT, PF, 30 MCG/0.3 ML DOSE 1 2021 300 complet ed [facility] COVID-19 ([employer]), MRNA, LNP-S, PF, 30 MCG/0.3 ML DOSE 3 2020 208 complet ed PFR; [id number]; 2 [facility] COVID-19 ([employer]), MRNA, LNP-S, PF, 30 MCG/0.3 ML DOSE 2 2020 208 complet ed PFR; [id number]; 1 [facility] COVID-19 ([employer]), MRNA, LNP-S, PF, 30 MCG/0.3 ML DOSE 1 2020 208 complet ed PFR; [id number]; 1 [facility] INFLUENZA, INJECTABLE, MDCK, PRESERVATIVE FREE, QUADRIVALENT 2018 171 complet ed Partner: [facility]. Administe red by: SABINA CABA (AYO=[phone]). Partner 04 Lot#: [id number] Mfr: SEQIRUS; Dosage: 0.5 [facility] ZOSTER RECOMBINANT 2 2017 187 complet ed [facility] ZOSTER RECOMBINANT 1 2017 187 complet ed [facility] INFLUENZA, UNSPECIFIED FORMULATION 2014 88 complet ed [facility] INFLUENZA, UNSPECIFIED FORMULATION 2012 88 complet ed [place] INFLUENZA, UNSPECIFIED FORMULATION 2011 88 complet ed [facility] INFLUENZA, UNSPECIFIED FORMULATION 2010 88 complet ed [facility] INFLUENZA, UNSPECIFIED FORMULATION 2009 88 complet ed [facility] INFLUENZA, UNSPECIFIED FORMULATION 2008 88 complet ed [facility] ZOSTER LIVE 2008 121 complet ed [facility] INFLUENZA, UNSPECIFIED FORMULATION 2007 88 complet ed [facility] INFLUENZA, UNSPECIFIED FORMULATION 2006 88 complet ed [facility] TDAP 2006 115 complet ed [place] INFLUENZA, UNSPECIFIED FORMULATION 2005 88 complet ed voice mail [facility] REFUSED PNEUMOVAX (HISTORICAL) 2004 complet ed [facility] INFLUENZA, UNSPECIFIED FORMULATION 2004 88 complet ed [facility] OUTSIDE PNEUMOVAX (HISTORICAL) 2004 109 complet ed [facility] INFLUENZA (HISTORICAL) 2003 88 complet ed [facility] INFLUENZA, UNSPECIFIED FORMULATION 2000 88 complet ed [facility] Vital Signs Combined list of inpatient and outpatient Vital Signs from Department of Defense and Veterans Affairs, ranging from 12 months to all on record, depending upon the facility. Vital Sign Value Date Comments Source SYSTOLIC BLOOD PRESSURE 96 01/19/2024 09:51:44 [facility] DIASTOLIC BLOOD PRESSURE 60 01/19/2024 09:51:44 [facility] PULSE OXIMETRY 99 01/19/2024 09:51:44 [facility] [place] [facility] WEIGHT 182.6 01/19/2024 09:51:44 [facility] Aníbal [facility] BMI 24 kg/m2 01/19/2024 09:51:44 [facility] PAIN 3 01/19/2024 09:51:44 [facility] TEMPERATURE 98 01/19/2024 09:51:44 [facility] PULSE 70 01/19/2024 09:51:44 [facility] RESPIRATION 18 01/19/2024 09:51:44 [facility] Encounters Combined list of: 1) Encounters from Department of Veterans Affairs facilities going backup to the last 18 months, not all [place] inpatient encounters are included; 2) Encounters from the Department of [facility] facilities going backup to 280 months. Location Location Details Encounter Type Encounter Number Reason For Visit Attending Provider ADM Date DC Date Status Disposition Source [facility] ADMN SARSCOV2 VACC 1 DOSE [id number] Diagnos is: ICD-10- CM Z00.00 Encntr for general adult medical exam w/o abnorma l finding s TARIQ TORRES 01/18 [facility] Outpatient Encounter [id number] 10/12 [facility] [id number] 10/13 [facility] En[facility] [id number] 10[facility] Social History Combined list of available smoking, tobacco, and other social history from Department of Defense and Veterans Affairs facilities. Social History Type Response Date Comment Sourc e Tobacco smoking status NHIS [facility] FORMER USER 01/19/2024 [facility] History of tobacco use [place] 1 5 YRS OR MORE 01/19/2024 [facility] History of tobacco use [place] FOR[place] US[place] 01/14/2023 [facility] History of tobacco use [place] NEVER USED 03/12/2018 [facility] History of tobacco use QUIT TOBACCO >7 Y EARS AGO 03/12/2017 [facility] History of tobacco use QUIT TOBACCO >7 Y EARS AGO 03/12/2016 [facility] History of tobacco use QUIT TOBACCO >7 Y EARS AGO 02/27/2015 [facility] History of tobacco use QUIT TOBACCO >7 Y EARS AGO 12/19/2013 [facility] History of tobacco use QUIT TOBACCO >7 Y EARS AGO 12/13/2012 [facility] History of tobacco use QUIT TOBACCO >7 Y EARS AGO 12/29/2006 [facility] History of tobacco use CURRENT NON-TOBAC CO USER-HX OF USE 03/17/2006 [facility] History of tobacco use CURRENT NON-TOBAC CO USER-HX OF USE 06/12/2005 [facility] History of tobacco use CURRENT NON-TOBAC CO USER-HX OF USE 09/12/2004 [facility] Plan of Care List of future care activities from [facility] facilities. Additional future care activities may be listed in the Assessment and Plan section. Date/Time Care Activity Care Activity Detail Facili ty 01/19/2025 AMBULATORY - MEDICINE AMBULATORY - MEDICI NE [facility] Advance Directives List of completed, amended, or rescinded Advance Directives on record at [facility] facilities. An actual copy of the Directive is not included. Date Advance Directive Provider Source 02/02/2023 ADVANCE DIRECTIVE ALISON NELSON [facility]
--- OUTSIDE RECORDS SUMMARY | 2024-10-31 18:24 | XMS_ITS | Clinical Summary ---
Author Organization [facility] [employer] Address [address] [place] [address] Care Team Providers Care State Patrol Officer Name Role Phone Gege Jackson MD Primary Care Provider Source Comments [facility] [employer],non-owned Affiliates and Associated Physician Practices is amultiple site organization consisting of ambulatory clinics and hospital sitesin [place], [place], [place] and [place]. This disclosure is being madepursuant to the Care Everywhere program and may not contain all information available regarding this patient. Last updated 18.[facility] [employer] Medications * Be aware that medications may not be up to date on this document. Alwaysverify current medications with the patient. Medication Sig Dispensed Refills Start Date End Date Status Nutritional Supplements (Ensure Plus High Protein) LIQD Take 1 container by mouth 2 times daily 08/27/2024 Active Eliquis 5 MG tablet Take 1 (one) tablet by mouth 2 times daily Active Cholecalciferol 50 MCG (2000 UT) Take 1 (one) tablet by mouth once daily 01/19/2024 Active cyanocobalamin (Vitamin B-12) 1000 MCG tablet Vitamin B-12 1,000 mcg tablet Active ferrous sulfate 325 (65 FE) MG tablet Take 1 (one) tablet by mouth once daily 08/17/2024 Active blood glucose (Accu-Chek SmartView) test strip Accu-Chek SmartView Test Strips test blood sugar DAILY Active pantoprazole EC (Protonix) 40 MG tablet Take 1 tablet every day by oral route. Active oxyCODONE, immediate release, (Roxicodone) 5 MG tabletIndications:A cute pain Take 1 (one) tablet by mouth every 4 hours as needed 09/04/2024 Active oxyCODONE, immediate release, (Roxicodone) 10 MG tabletIndications:A cute pain Take 1 (one) tablet by mouth every 4 hours as needed 09/04/2024 Active acetaminophen (Tylenol) 500 MG tablet Take 2 (two) tablets by mouth every 8 hours Maximum allowable Acetaminophen amount = 4 Grams (4000 mg) / 24 hours. 09/04/2024 Active aspirin (Aspirin) 81 MG chew tablet Take 1 (one) tablet by mouth once daily 09/05/2024 Active gabapentin (Neurontin) 300 MG capsule Take 1 (one) capsule by mouth 3 times daily 09/04/2024 Active atorvastatin (Lipitor) 40 MG tablet Take 1 (one) tablet by mouth at bedtime 09/04/2024 Active lidocaine (Lidoderm) 5 % patch Apply 2 (two) patches to skin every 24 hours Apply patch to most painful area and remove after 12 hours. May reapply a new patch 12 hours later. 09/05/2024 Active polyethylene glycol 3350 (Miralax) 17 g packet Take 17 (seventeen) g by mouth once daily 09/05/2024 Active senna (Senokot Extra Strength) 17.2 MG Take 17.2 mg by mouth once daily 09/05/2024 Active Active Problems Problem Noted Date Diagnosed Date Severe malnutrition 08/29/2024 Leukopenia, unspecified type 08/26/2024 Ecchymosis 08/26/2024 Anemia, unspecified type 08/26/2024 Fall, initial encounter 08/26/2024 Hemopneumothorax on left 08/26/2024 Fracture of multiple ribs of left side Acute pain 08/26/2024 Contusion of left lung 08/26/2024 Encounters Date Type Department Care Team Description 09/26/2024 Travel 08/28/2024 Travel 08/26/2024 1:13 AM CRYPTOLOGICAL TECHNICIAN - 09/05/2024 2:50 PM CRYPTOLOGICAL TECHNICIAN Hospital Encounter [facility] 5S ACUTE [address] [place] [address] Clvois Wilkinson MD Naughton, Daniel J, MD Trauma Discharge Disposition: Rehab:Inpatient 08/26/2024 12:46 AM CRYPTOLOGICAL TECHNICIAN - 08/26/2024 12:59 AM CRYPTOLOGICAL TECHNICIAN Emergency ER at [facility] [address] Discharge Disposition: Home or Self Care from Last 3 Months Immunizations Name Administration Dates Next Due TDAP (7yrs+) 08/26/2024 Family History Relation Name Status Comments Father Mother Social History Tobacco Use Types Packs/Day Years Used Date Smoking Tobacco: Unknown Tobacco Cessation:Counseling Given: Not Answered AUDIT-C Answer Date Recorded Q1: How often do you have a drink containing alc ohol? Patient declined 08/28/2024 Q2: How many drinks containi ng alcohol do you have on a typical day when you are drinking? Patient declined 08/28/2024 Frequency of Binge Drinking Not on file 08/10 Overall Financial Resource Strain (CARDIA) Answe r Date Recorded How hard is it for you to pa y for the very basics like food, housing, medical care, and heating? Not hard at all 08/28/2024 [facility] [place] [facility] Occupat ional [facility] - Occupational Stress Questionnaire Answer Date Recorded Do you feel stress - tense, restless, nervous, or anxious, or unable to sleep at night because your mind is troubled all the time - these days? Not at all 08/28/2024 Hunger Vital Sign Answer Date Recorded Within the past 12 months, y ou worried that your food would run out before you got the money to buy more. Never true 08/28/19 25 Within the past 12 months, t he food you bought just didn't last and you didn't have money to get more. Never true 08/28/2024 PRAPARE - Transportation Answer Date Re corded In the past 12 months, has l ack of transportation kept you from medical appointments or from getting medications? No 08/10 In the past 12 months, has l ack of transportation kept you from meetings, work, or from getting things needed for daily living? No 08/28/2024 Housing Stability Vital Sign Answer Champ e Recorded In the last 12 months, was t here a time when you were not able to pay the mortgage or rent on time? No 08/28/2024 In the past 12 months, how m any times have you moved where you were living? 0 08/28/2024 At any time in the past 12 m [facility], were you homeless or living in a assisted (including now)? No 08/28/2024 Sex and Gender Information Value Date Recorded Sex Assigned at Not on file Gender Identity Not on file Sexual Orientation Not on file Last Filed Vital Signs Vital Sign Reading Time Taken Comments Blood Pressure 107/58 09/05/2024 11:14 AM CRYPTOLOGICAL TECHNICIAN Pulse 85 09/05/2024 11:14 AM CRYPTOLOGICAL TECHNICIAN Temperature 37 C (98.6 F) 09/05/2024 11:14 AM CRYPTOLOGICAL TECHNICIAN Respiratory Rate 20 09/05/2024 11:14 AM CRYPTOLOGICAL TECHNICIAN Oxygen Saturation 90% 09/05/2024 11:14 AM CRYPTOLOGICAL TECHNICIAN Inhaled Oxygen Concentration - - Weight 78.5 kg (173 lb) 08/27/2024 4:00 AM CRYPTOLOGICAL TECHNICIAN Height 182.9 cm (6') 08/26/2024 1:13 AM CRYPTOLOGICAL TECHNICIAN Body Mass Index 23.46 08/26/2024 1:13 AM CRYPTOLOGICAL TECHNICIAN Plan of Treatment Upcoming Encounters Date Type Department Care Team (Late st Contact Info) Description 11/03/2024 12:00 PM CDT Office Visit [facility] - General Surgery [address] [place] [address], [place] [address] Health Maintenance Due Date Last Done Comments MEDICARE AWV 12 MONTHS 1944 PNEUMOCOCCAL VACCINE 50+ (1 of 2 - PCV) 1963 ZOSTER VACCINE (1 of 2) 1994 Respiratory Syncytial Virus (RSV) Vaccine Pt: or over 60 yrs (1 - 1-dose 75+ series) 2019 COVID-19 VACCINE ( season) 2024 01/19/2024, 05/22/2022, 05/21/2022, Additional history exists DEPRESSION SCREENING 08/10/2024 DTAP/TDAP/TD VACCINES (2 - Td or Tdap) 08/26/2034 08/26/2024 INFLUENZA VACCINE Completed 07/20/2024, , 05/21/2022, Additional history exists HEPATITIS B VACCINE Aged Out No longe r eligible based on patient's age to complete this topic HIB VACCINE Aged Out No longer eligi ble based on patient's age to complete this topic HPV VACCINE Aged Out No longer eligi ble based on patient's age to complete this topic MENINGOCOCCAL (Group B) VACCINE SHARED DECISION-MAKING Aged Out No longer eligible based on patient's age to complete this topic MENINGOCOCCAL GROUPS A/C/Y/W VACCINE Aged Out No longer eligible based on patient's age to complete this topic Procedures Procedure Name Priority Date/Time Associated Diagnosis Comments XR CHEST 1VW PORTABLE Routine 09/02/2024 3:00 PM CRYPTOLOGICAL TECHNICIAN Hemopneumothorax on left XR CHEST 1VW PORTABLE Routine 09/02/2024 4:32 AM CRYPTOLOGICAL TECHNICIAN Hemopneumothorax on left Contusion of left lung, initial encounter XR CHEST 1VW PORTABLE Routine 09/01/2024 5:16 AM CRYPTOLOGICAL TECHNICIAN Hemopneumothorax on left RENAL FUNCTION PANEL AM Draw 09/01/2024 3:06 AM CRYPTOLOGICAL TECHNICIAN MAGNESIUM BLOOD STAT 08/31/2024 6:47 AM CRYPTOLOGICAL TECHNICIAN RENAL FUNCTION PANEL STAT 08/31/2024 6:47 AM CRYPTOLOGICAL TECHNICIAN CBC W/O DIFFERENTIAL STAT 08/31/2024 6:47 AM CRYPTOLOGICAL TECHNICIAN XR CHEST 1VW PORTABLE STAT 08/31/2024 5:05 AM CRYPTOLOGICAL TECHNICIAN Hemopneumothorax on left XR CHEST 1VW PORTABLE Routine 08/30/2024 4:42 AM CRYPTOLOGICAL TECHNICIAN Hemopneumothorax on left GLUCOSE - POINT OF CARE Routine 08/29/2024 4:25 PM CRYPTOLOGICAL TECHNICIAN XR CHEST 1VW PORTABLE Routine 08/29/2024 2:45 PM CRYPTOLOGICAL TECHNICIAN Hemopneumothorax on left GLUCOSE - POINT OF CARE Routine 08/29/2024 12:03 PM CRYPTOLOGICAL TECHNICIAN GLUCOSE - POINT OF CARE Routine 08/29/2024 7:58 AM CRYPTOLOGICAL TECHNICIAN XR CHEST 1VW PORTABLE Routine 08/29/2024 4:20 AM CRYPTOLOGICAL TECHNICIAN Hemopneumothorax on left GLUCOSE - POINT OF CARE Routine 08/28/2024 9:51 PM CRYPTOLOGICAL TECHNICIAN GLUCOSE - POINT OF CARE Routine 08/28/2024 6:59 PM CRYPTOLOGICAL TECHNICIAN GLUCOSE - POINT OF CARE Routine 08/28/2024 11:55 AM CRYPTOLOGICAL TECHNICIAN GLUCOSE - POINT OF CARE Routine 08/28/2024 7:41 AM CRYPTOLOGICAL TECHNICIAN GLUCOSE - POINT OF CARE Routine 08/28/2024 6:12 AM CRYPTOLOGICAL TECHNICIAN XR CHEST 1VW PORTABLE Routine 08/28/2024 6:05 AM CRYPTOLOGICAL TECHNICIAN Hemopneumothorax on left COMPREHENSIVE METABOLIC PANEL AM Draw 08/28/2024 4:57 AM CRYPTOLOGICAL TECHNICIAN GLUCOSE - POINT OF CARE Routine 08/27/2024 9:22 PM CRYPTOLOGICAL TECHNICIAN GLUCOSE - POINT OF CARE Routine 08/27/2024 4:10 PM CRYPTOLOGICAL TECHNICIAN GLUCOSE - POINT OF CARE Routine 08/27/2024 10:46 AM CRYPTOLOGICAL TECHNICIAN BLOOD TYPE VERIFICATION STAT 08/27/2024 7:58 AM CRYPTOLOGICAL TECHNICIAN GLUCOSE - POINT OF CARE Routine 08/27/2024 6:31 AM CRYPTOLOGICAL TECHNICIAN XR CHEST 1VW PORTABLE Routine 08/27/2024 5:07 AM CRYPTOLOGICAL TECHNICIAN Hemopneumothorax on left HEMOGLOBIN A1C KELSEA 08/27/2024 2:02 AM CRYPTOLOGICAL TECHNICIAN CALCIUM IONIZED WHOLE BLOOD STAT 08/27/2024 2:02 AM CRYPTOLOGICAL TECHNICIAN PHOSPHORUS BLOOD STAT 08/27/2024 2:02 AM CRYPTOLOGICAL TECHNICIAN MAGNESIUM BLOOD STAT 08/27/2024 2:02 AM CRYPTOLOGICAL TECHNICIAN BASIC METABOLIC PANEL (CALCIUM TOTAL) STAT 08/27/2024 2:02 AM CRYPTOLOGICAL TECHNICIAN CBC W AUTO DIFFERENTIAL STAT 08/27/2024 2:02 AM CRYPTOLOGICAL TECHNICIAN SARS-COV-2 (COVID-19) RAPID STAT 08/26/2024 10:21 PM CRYPTOLOGICAL TECHNICIAN PHOSPHORUS BLOOD STAT 08/26/2024 3:39 PM CRYPTOLOGICAL TECHNICIAN MAGNESIUM BLOOD STAT 08/26/2024 3:39 PM CRYPTOLOGICAL TECHNICIAN CBC W AUTO DIFFERENTIAL STAT 08/26/2024 3:39 PM CRYPTOLOGICAL TECHNICIAN BASIC METABOLIC PANEL (CALCIUM TOTAL) STAT 08/26/2024 3:39 PM CRYPTOLOGICAL TECHNICIAN URINE DRUG SCREEN IMMUNOASSAY STAT 08/26/2024 3:39 PM CRYPTOLOGICAL TECHNICIAN TEG 6S PLATELET MAPPING STAT 08/26/2024 11:55 AM CRYPTOLOGICAL TECHNICIAN TEG 6 GLOBAL HEMOSTASIS W/ LYSIS STAT 08/26/2024 11:55 AM CRYPTOLOGICAL TECHNICIAN XR CHEST 1VW PORTABLE STAT 08/26/2024 8:56 AM CRYPTOLOGICAL TECHNICIAN Fall, initial encounter XR CHEST 1VW PORTABLE STAT 08/26/2024 3:44 AM CRYPTOLOGICAL TECHNICIAN Fall, initial encounter XR PELVIS 1 OR 2VW Routine 08/26/2024 1: 57 AM CRYPTOLOGICAL TECHNICIAN Fall, initial encounter XR CHEST 1VW PORTABLE STAT 08/26/2024 1:56 AM CRYPTOLOGICAL TECHNICIAN Fall, initial encounter CT LUMBAR SPINE WO CONTRAST STAT 08/26/2024 1:51 AM CRYPTOLOGICAL TECHNICIAN Fall, initial encounter CT THORACIC SPINE WO CONTRAST STAT 08/26/2024 1:51 AM CRYPTOLOGICAL TECHNICIAN Fall, initial encounter CT CHEST ABDOMEN PELVIS W CONT STAT 08/26/2024 1:51 AM CRYPTOLOGICAL TECHNICIAN Fall, initial encounter CT CERVICAL SPINE WO CONTRAST STAT 08/26/2024 1:51 AM CRYPTOLOGICAL TECHNICIAN Fall, initial encounter CT HEAD WO CONTRAST STAT 08/26/2024 1 :51 AM CRYPTOLOGICAL TECHNICIAN Fall, initial encounter TYPE + SCREEN PANEL STAT 08/26/2024 1 :30 AM CRYPTOLOGICAL TECHNICIAN PT-INR SLH STAT 08/26/2024 1:30 AM CRYPTOLOGICAL TECHNICIAN LIPASE BLOOD STAT 08/26/2024 1:30 AM CRYPTOLOGICAL TECHNICIAN CBC W AUTO DIFFERENTIAL STAT 08/26/2024 1:30 AM CRYPTOLOGICAL TECHNICIAN BASIC METABOLIC PANEL (CALCIUM TOTAL) STAT 08/26/2024 1:30 AM CRYPTOLOGICAL TECHNICIAN ALCOHOL ETHYL BLOOD STAT 08/26/2024 1 :30 AM CRYPTOLOGICAL TECHNICIAN OXYGEN WITHOUT TITRATION (ADULT) Routine 08/26/2024 1:23 AM CRYPTOLOGICAL TECHNICIAN from Last 3 Months Results * XR Chest 1Vw Portable (09/02/2024 3:00 PM CRYPTOLOGICAL TECHNICIAN) Only the most recent of12 resultswithin the time period is included. Anatomical Region Laterality Modality Chest Digital Radiogra phy 09/03/2024 10:0 6 AM CRYPTOLOGICAL TECHNICIAN Narrative 09/04/2024 6:36 AM CRYPTOLOGICAL TECHNICIAN PROCEDURE: XR CHEST 1VW PORTABLE, DATE/TIME OF EXAM: 09/02/2024 3:00 PM, LOCATION [facility] INDICATION: J94.2: Hemopneumothorax on left ADDITIONAL CLINICAL INFORMATION: Ordering Provider Reason For Exam: CT removed post pull COMPARISON: Chest x-ray dated 09/02/2024 FINDINGS/IMPRESSION: Left chest wall cardiac device with 3 leads terminating in the right atrium, right ventricle and coronary sinus. Median sternotomy wires are noted. Interval removal of the left apically oriented chest tube. Unchanged lung aeration with persistent atelectasis and/or airspace disease in the lingula and the left lower lobe. Linear atelectasis is also noted in the right lower lung. There is a small left pleural effusion. No right pleural effusion. No pneumothorax. Cardiomediastinal silhouette is stable. Report dictated by Jaya Hernandez MD, (physician vice president). Bindu Ardon MD have personally reviewed and interpreted this examination/study. > Interpreting Provider: Bindu Wright MD on 09/04/2024 6:36 AM Procedure Note Bindu Wright MD - 09/04/2024 PROCEDURE: XR CHEST 1VW PORTABLE, DATE/TIME OF EXAM: 09/02/2024 3:00PM, LOCATION [facility] INDICATION: J94.2: Hemopneumothorax on left ADDITIONAL CLINICAL INFORMATION: Ordering Provider Reason For Exam: CT removed post pull COMPARISON: Chest x-ray dated 09/02/2024 FINDINGS/IMPRESSION: Left chest wall cardiac device with 3 leads terminating in the right atrium, right ventricle and coronary sinus. Median sternotomy wires are noted. Interval removal of the left apically oriented chest tube. Unchanged lung aeration with persistent atelectasis and/or airspacedisease in the lingula and the left lower lobe. Linear atelectasis is also notedin the right lower lung. There is a small left pleural effusion. No right pleural effusion. No pneumothorax. Cardiomediastinal silhouette isstable. Report dictated by Jaya Hernandez MD, (physician vice president). Bindu Ardon MD have personally reviewed and interpreted this examination/study. > Interpreting Provider: Bindu Wright MD on 09/04/2024 6:36 AM Morena Damico RAYON WINDER-PIGMENT MAKING SUPERVISOR DIAGNOSTIC IMAGIN G ORDERABLES * (ABNORMAL) RENAL FUNCTION PANEL (09/01/2024 3:06 AM CRYPTOLOGICAL TECHNICIAN) Only the most recent of2 resultswithin the time period is included. BUN 20 7 - 26 mg/dL 09/01/2024 4:03 AM CRYPTOLOGICAL TECHNICIAN [facility] Creatinine 0.66(L) 0.71 - 1.16 mg/dL 09/01/2024 4:03 AM [facility] Sodium 135(L) 136 - 145 mmol/L 09/01/2024 4:03 AM [facility] Potassium 4.1 3.5 - 4.5 mmol/L 09/01/2024 4:03 AM [facility] Chloride 104 98 - 107 mmol/L 09/01/2024 4:03 AM [facility] CO2 26 22 - 29 mmol/L 09/01/2024 4:03 AM [facility] Glucose 131(H) 70 - 99 mg/dL 09/01/2024 4:03 AM [facility] Albumin 1.7(L) 3.4 - 5.0 g/dL 09/01/2024 4:03 AM [facility] Calcium 7.7(L) 8.4 - 10.2 mg/dL 09/01/2024 4:03 AM [facility] Phosphorus 3.2 2.8 - 5.1 mg/dL 09/01/2024 4:03 AM [facility] Anion Gap 5(L) 6 - 16 09/01/2024 4:03 AM [facility] BUN/Creatinine Ratio 30(H) 7 - 23 09/01/2024 4:03 AM [facility] Osmolality Calculated 284 275 - 295 mOsm/kg 09/01/2024 4:03 AM [facility] eGFR by CKD-EPI >90 >=90 mL/min/1.7 3 m2 09/01/2024 4:03 AM [facility] Blood BLOOD SPECIMEN / Unknown Lab Venipuncture / Unknown 09/01/2024 3:06 AM CRYPTOLOGICAL TECHNICIAN 09/01/2024 3:32 AM [facility] Silvia Arevalo RAYON WINDER-PIGMENT MAKING SUPERVISOR LAB - CHEMISTRY O RDERABLES [address] [address], [facility] [phone] * (ABNORMAL) CBC W/O DIFFERENTIAL (08/31/2024 6:47 AM [facility]) WBC 5.8 4.0 - 10.7 x10E9/L 08/31/2024 7:28 AM [facility] RBC Count 3.64(L) 4.30 - 5.80 x10E12/L 08/31/2024 7:28 AM [facility] Hemoglobin 9.2(L) 13.3 - 17.5 g/dL 08/31/2024 7:28 AM [facility] Hematocrit 29.7(L) 38.7 - 51.1 % 08/31/2024 7:28 AM [facility] MCV 81.6 80.0 - 98.0 fL 08/31/2024 7:28 AM [facility] MCH 25.3(L) 26.7 - 33.6 pg 08/31/2024 7:28 AM [facility] MCHC 31.0(L) 31.7 - 36.3 g/dL 08/31/2024 7:28 AM [facility] RDW-CV 16.0(H) 11.3 - 14.8 % 08/31/2024 7:28 AM [facility] Platelet Count 252 150 - 420 x10E9/L 08/31/2024 7:28 AM [facility] MPV 9.8 7.8 - 11.4 fL 08/31/2024 7:28 AM [facility] Blood BLOOD SPECIMEN / Unknown Lab Venipuncture / Unknown 08/31/2024 6:47 AM CRYPTOLOGICAL TECHNICIAN 08/31/2024 7:12 AM [facility] Silvia Arevalo RAYON WINDER-PIGMENT MAKING SUPERVISOR LAB - HEMATOLOGY ORDERABLES Performing Organization Address [facility]/State/[facility] Co de Phone Number [facility] [address] [place] [phone], [facility] [phone] * MAGNESIUM BLOOD (08/31/2024 6:47 AM CRYPTOLOGICAL TECHNICIAN) Only the most recent of3 resultswithin the time period is included. Magnesium 1.9 1.6 - 2.6 mg/dL 08/31/2024 7:43 AM [facility] Blood BLOOD SPECIMEN / Unknown Lab Venipuncture / Unknown 08/31/2024 6:47 AM CRYPTOLOGICAL TECHNICIAN 08/31/2024 7:30 AM CRYPTOLOGICAL TECHNICIAN Silvia Arevalo RAYON WINDER-PIGMENT MAKING SUPERVISOR LAB - CHEMISTRY O RDERABLES Performing Organization Address [facility]/ZIP Co de Phone Number [address] [address], [facility] [phone] * (ABNORMAL) GLUCOSE - POINT OF CARE (08/29/2024 4:25 PM CRYPTOLOGICAL TECHNICIAN) Only the most recent of12 resultswithin the time period is included. Pathologist [facility] Glucose WB/POC 179(H) 70 - 99 mg/dL 08/29/2024 6:59 PM [facility] Specimen Type Cap Fingerstick 2024 6:59 PM [facility] Blood BLOOD SPECIMEN / Unknown 08/29/2024 4:25 PM CRYPTOLOGICAL TECHNICIAN 08/29/2024 6:59 PM CRYPTOLOGICAL TECHNICIAN David Rojas MD LAB - POINT OF CARE ORDERABLES Performing Organization Address [facility]/ZIP Co de Phone Number [address] [phone], [facility] [phone] * (ABNORMAL) COMPREHENSIVE METABOLIC PANEL (08/28/2024 4:57 AM CRYPTOLOGICAL TECHNICIAN) [facility] BUN 12 7 - 26 mg/dL 08/28/2024 6:15 AM [facility] Creatinine 0.73 0.71 - 1.16 mg/dL 08/28/2024 6:15 AM [facility] Sodium 137 136 - 145 mmol/L 08/28/2024 6:15 AM [facility] Potassium 3.9 3.5 - 4.5 mmol/L 08/28/2024 6:15 AM [facility] Chloride 110(H) 98 - 107 mmol/L 08/28/2024 6:15 AM [facility] CO2 24 22 - 29 mmol/L 08/28/2024 6:15 AM [facility] Glucose 103(H) 70 - 99 mg/dL 08/28/2024 6:15 AM [facility] Calcium 7.4(L) 8.4 - 10.2 mg/dL 08/28/2024 6:15 AM [facility] Protein Total 4.4(L) 6.0 - 8.3 g/dL 08/28/2024 6:15 AM [facility] Albumin 1.6(L) 3.4 - 5.0 g/dL 08/28/2024 6:15 AM [facility] Bilirubin Total 0.4 0.2 - 1.2 mg/dL 08/28/2024 6:15 AM [facility] Alkaline Phosphatase 63 40 - 150 U/L 08/28/2024 6:15 AM [facility] ALT 10 5 - 55 U/L 08/28/2024 6:15 AM [facility] AST 12 5 - 34 U/L 08/28/2024 6:15 AM [facility] Anion Gap 3(L) 6 - 16 08/28/2024 6:15 AM [facility] BUN/Creatinine Ratio 16 7 - 23 08/28/2024 6:15 AM [facility] Osmolality Calculated 284 275 - 295 mOsm/kg 08/28/2024 6:15 AM [facility] Albumin/Globulin Ratio 0.6(L) 1.1 - 2.3 08/28/2024 6:15 AM [facility] eGFR by CKD-EPI >90 >=90 mL/min/1.7 3 m2 08/28/2024 6:15 AM [facility] Blood BLOOD SPECIMEN / Unknown Lab Venipuncture / Unknown 08/28/2024 4:57 AM CRYPTOLOGICAL TECHNICIAN 08/28/2024 5:45 AM [facility] Susan Burris PA-C LAB - CHEMISTRY CARMELO ROCHA [facility] [address] [place] [phone], [facility] [phone] * BLOOD TYPE VERIFICATION (08/27/2024 7:58 AM [facility]) ABO Rh B POS 08/27/2024 9:0 6 AM [facility] BLOOD BANK LAB Blood Bank BLOOD SPECIMEN / Unknown Lab Venipuncture / Unknown 08/27/2024 7:58 AM CRYPTOLOGICAL TECHNICIAN 08/27/2024 8:31 AM CRYPTOLOGICAL TECHNICIAN Clovis Wilkinson MD LAB - BLOOD BANK ORD ERABLES Performing Organization Address City/[facility]/ZIP Co de Phone Number [facility] [address] [place] [address], [facility] [phone] * CALCIUM IONIZED WHOLE BLOOD (08/27/2024 2:02 AM CRYPTOLOGICAL TECHNICIAN) Calcium Ionized 1.21 mmol/L 08/27/2024 3:01 AM [facility] [employer] [facility] pH 7.35 7.35 - 7.45 pH 08/27/2024 3:01 AM [facility] Ionized Calcium pH Adjusted 1.19 1.19 - 1.34 mmol/L 08/27/2024 3:01 AM [facility] Blood BLOOD SPECIMEN / Unknown Lab Venipuncture / Unknown 08/27/2024 2:02 AM CRYPTOLOGICAL TECHNICIAN 08/27/2024 2:59 AM CRYPTOLOGICAL TECHNICIAN David Rojas MD LAB - CHEMISTRY ORD ERABLES Performing Organization Address [facility]/ZIP Co de Phone Number [address] [address], [facility] [phone] * (ABNORMAL) HEMOGLOBIN A1C (08/27/2024 2:02 AM CRYPTOLOGICAL TECHNICIAN) Hemoglobin A1c 5.7(H) <=5.6 % 08/27/2024 11:11 AM [facility] Estimated Average Glucose 117 mg/dL 08/27/2024 11:11 AM [facility] Comment: HbA1c Interpretation: Normal : < 5.7% Pre-diabetes: 5.7-6.4% Diabetes: Equal to or greater than 6.5% Test results diagnostic of diabetes should be repeated for confirmation. Treatment target values recommended by ADA and other clinical organizations should be used to evaluate metabolic control in patients. Reference: [place] [employer], Standards of Care in Diabetes -2020 In patients 70 years and older consider HbA1c target range of 7.0-7.5% (Reference: Albert Gonzalez et al. JAMDA. 2012) The Sebia assay for the measurement of HbA1c is a National Glycohemoglobin Standardization Program (NGSP) certified method. Blood BLOOD SPECIMEN / Unknown Lab Venipuncture / Unknown 08/27/2024 2:02 AM CRYPTOLOGICAL TECHNICIAN 08/27/2024 3:04 AM CRYPTOLOGICAL TECHNICIAN David Rojas MD LAB - CHEMISTRY ORD ERABLES [facility] [address] [place] [address], [facility] [phone] * (ABNORMAL) CBC W AUTO DIFFERENTIAL (08/27/2024 2:02 AM CRYPTOLOGICAL TECHNICIAN) Only the most recent of3 resultswithin the time period is included. WBC 4.2 4.0 - 10.7 x10E9/L 08/27/2024 3:11 AM [facility] RBC Count 3.44(L) 4.30 - 5.80 x10E12/L 08/27/2024 3:11 AM [facility] Hemoglobin 8.6(L) 13.3 - 17.5 g/dL 08/27/2024 3:11 AM [facility] Hematocrit 28.0(L) 38.7 - 51.1 % 08/27/2024 3:11 AM [facility] MCV 81.4 80.0 - 98.0 fL 08/27/2024 3:11 AM [facility] MCH 25.0(L) 26.7 - 33.6 pg 08/27/2024 3:11 AM [facility] MCHC 30.7(L) 31.7 - 36.3 g/dL 08/27/2024 3:11 AM [facility] RDW-CV 15.9(H) 11.3 - 14.8 % 08/27/2024 3:11 AM [facility] Platelet Count 196 150 - 420 x10E9/L 08/27/2024 3:11 AM [facility] MPV 10.0 7.8 - 11.4 fL 08/27/2024 3:11 AM [facility] Neutrophil % 70.4 41.0 - 74.0 % 08/27/2024 3:11 AM [facility] Lymphocyte % 17.6 17.0 - 47.0 % 08/27/2024 3:11 AM [facility] Monocyte % 9.9 3.0 - 11.0 % 08/27/2024 3:11 AM [facility] Eosinophil % 1.7 0.0 - 7.0 % 08/27/2024 3:11 AM [facility] Basophil % 0.2 0.0 - 1.6 % 08/27/2024 3:11 AM [facility] Immature Granulocytes % 0.2 0.0 - 1.0 % 08/27/2024 3:11 AM [facility] Neutrophil Absolute 2.92 1.60 - 7.50 x10E9/L 08/27/2024 3:11 AM [facility] Lymphocyte Absolute 0.73(L) 1.00 - 4.40 x10E9/L 08/27/2024 3:11 AM [facility] Monocyte Absolute 0.41 0.15 - 1.00 x10E9/L 08/27/2024 3:11 AM [facility] Eosinophil Absolute 0.07 0.00 - 0.60 x10E9/L 08/27/2024 3:11 AM [facility] Basophil Absolute 0.01 0.00 - 0.13 x10E9/L 08/27/2024 3:11 AM [facility] Blood BLOOD SPECIMEN / Unknown Lab Venipuncture / Unknown 08/27/2024 2:02 AM [facility] 08/27/2024 3:05 AM [facility] David Rojas MD LAB - HEMATOLOGY OR DERABLES [facility] [address] [place] [phone], [facility] [phone] * (ABNORMAL) BASIC METABOLIC PANEL (CALCIUM TOTAL) (08/27/2024 2:02 AM [facility]) Only the most recent of3 resultswithin the time period is included. BUN 15 7 - 26 mg/dL 08/27/2024 3:34 AM [facility] Creatinine 0.72 0.71 - 1.16 mg/dL 08/27/2024 3:34 AM [facility] Sodium 137 136 - 145 mmol/L 08/27/2024 3:34 AM [facility] Potassium 3.6 3.5 - 4.5 mmol/L 08/27/2024 3:34 AM [facility] Chloride 110(H) 98 - 107 mmol/L 08/27/2024 3:34 AM [facility] CO2 22 22 - 29 mmol/L 08/27/2024 3:34 AM [facility] Glucose 162(H) 70 - 99 mg/dL 08/27/2024 3:34 AM [facility] Calcium 7.6(L) 8.4 - 10.2 mg/dL 08/27/2024 3:34 AM [facility] Anion Gap 5(L) 6 - 16 08/27/2024 3:34 AM [facility] BUN/Creatinine Ratio 21 7 - 23 08/27/2024 3:34 AM [facility] Osmolality Calculated 288 275 - 295 mOsm/kg 08/27/2024 3:34 AM [facility] eGFR by CKD-EPI >90 >=90 mL/min/1.7 3 m2 08/27/2024 3:34 AM [facility] Blood BLOOD SPECIMEN / Unknown Lab Venipuncture / Unknown 08/27/2024 2:02 AM CRYPTOLOGICAL TECHNICIAN 08/27/2024 2:59 AM [facility] David Rojas MD LAB - CHEMISTRY ORD ERABLES [facility] [address] [place] [address], [facility] [phone] * PHOSPHORUS BLOOD (08/27/2024 2:02 AM [facility]) Only the most recent of2 resultswithin the time period is included. Phosphorus 3.1 2.8 - 5.1 mg/dL 08/27/2024 3:34 AM [facility] Blood BLOOD SPECIMEN / Unknown Lab Venipuncture / Unknown 08/27/2024 2:02 AM CRYPTOLOGICAL TECHNICIAN 08/27/2024 2:59 AM CRYPTOLOGICAL TECHNICIAN David Rojas MD LAB - CHEMISTRY ORD CARMEN Performing Organization Address [facility] Co de Phone Number [address] [address], [facility] [phone] * SARS-COV-2 (COVID-19) RAPID (08/26/2024 10:21 PM CRYPTOLOGICAL TECHNICIAN) [facility] COVID-19 PCR Not detected Not detected 08/26/19 11:01 PM CRYPTOLOGICAL TECHNICIAN [facility] Microbiology SPECIMEN FROM NASOPHARYNGEAL STRUCTURE / Unknown Collection / Unknown 08/26/2024 10:21 PM CRYPTOLOGICAL TECHNICIAN 08/26/2024 10:21 PM CRYPTOLOGICAL TECHNICIAN Narrative [facility] - 08/26/2024 11:01 PM CRYPTOLOGICAL TECHNICIAN The CepheTappr Xpert Xpress SARS-COV-2 has been authorized by the Food and Drug Administration (FDA) under an Emergency Use Authorization (EUA). This test has been validated in accordance with the FDA's guidance document Policy for Diagnostic Testing in Laboratories Certified to perform High Complexity Testing under CLIA prior to Emergency Use Authorization for Coronavirus Disease-2019 during the Public Health Emergency issued on October 08, 2019. FDA independent review of this validation is pending. This test is only authorized for the duration of the time the declaration that circumstances exist justifying the authorization of emergency use of in vitro diagnostic tests for detection of SARS-COV-2 virus and/or diagnosis of COVID-19 infection under 564(b) (1) of the Act. 21 U.S.C. 360bbb-3 (b) (1), unless the authorization is terminated or revoked sooner. Fact Sheets for this EUA assay are available upon request. Tan Pressley MD LAB - MICROBIOLOGY O RDCARMEN Performing Organization Address [facility]/ZIP Co de Phone Number [address] [phone], [facility] [phone] * (ABNORMAL) URINE DRUG SCREEN IMMUNOASSAY (08/26/2024 3:39 PM CRYPTOLOGICAL TECHNICIAN) [facility] Amphetamines Screen Urine Negative Negative : < 1000 ng/mL 08/26/2024 4:15 PM [facility] Barbiturates Screen Urine Negative Negative : < 200 ng/mL 08/26/2024 4:15 PM [facility] Benzodiazepine Screen Urine Positive(A) Negative : < 200 ng/mL 08/26/2024 4:15 PM [facility] Comment: Positive urine benzodiazepine screening results should be confirmed by another generally accepted non-immunological method such as gas chromatography or mass spectrometry. Opiates Urine Negative Negative : < 300 ng/mL 08/26/2024 4:15 PM [facility] Cocaine Metabolites Urine Negative Negative : < 300 ng/mL 08/26/2024 4:15 PM [facility] Phencyclidine Screen Urine Negative Negative : < 25 ng/ml 08/26/2024 4:15 PM [facility] Cannabinoids Screen Urine Negative Negative : <50 ng/mL 08/26/2024 4:15 PM [facility] Methadone Screen Urine Negative Negative : < 300 ng/mL 08/26/2024 4:15 PM [facility] Fentanyl Screen Urine Negative Negative : <1.5 ng/mL 08/26/2024 4:15 PM [facility] Urine URINE / Unknown Collection / Unknown 08/26/2024 3:39 PM [facility] 08/26/2024 3:54 PM [facility] - 08/26/2024 4:15 PM CRYPTOLOGICAL TECHNICIAN The Urine Toxicology Screening Panel does not screen for Propoxyphene, Meprobamate, Carisoprodol, Trazodone, iced-wnp-bbknlph medications and/or volatiles (Acetone, Isopropanol, Methanol or Ethylene Glycol). Ethanol, Salicylate, Acetaminophen, Tricyclic Antidepressants and several therapeutic drugs may be individually assayed in serum or plasma specimen. Toxicology testing by the [facility] is an aid to medical diagnosis and treatment of patients. No documented chain of custody was maintained. Results are intended to be used for clinical purposes only. Clovis Wilkinson MD LAB - URINE CHEMISTR Y ORDERABLES [facility] [address] [place] [address], [facility] [phone] * (ABNORMAL) TEG 6 GLOBAL HEMOSTASIS W/ LYSIS (08/26/2024 11:55 AM CRYPTOLOGICAL TECHNICIAN) Citrated Kaolin R (Reaction Time) 3.7(L) 4.6 - 9.1 min 08/26/2024 1:04 PM [facility] Comment:CK R result below no rmal range. Consistent with hypercoagulable clotting factors. Citrated Kaolin LY30 (Lysis) 0.0 0.0 - 2.6 % 08/26/2024 1:04 PM [facility] Citrated Functional Fibrinogen MA (Max Amplitude) 21.7 15.0 - 32.0 mm 08/26/2024 1:04 PM [facility] Citrated RapidTEG MA (Max Amplitude) 64.0 52.0 - 70.0 mm 08/26/2024 1:04 PM [facility] Blood BLOOD SPECIMEN / Unknown Venipuncture / Unknown 08/26/2024 11:55 AM CRYPTOLOGICAL TECHNICIAN 08/26/2024 12:05 PM CRYPTOLOGICAL TECHNICIAN David Rojas MD LAB - HEMATOLOGY OR DERABLES Performing Organization Address [facility]/State/[facility] Co de Phone Number [address] [phone], [facility] [phone] * (ABNORMAL) TEG 6S PLATELET MAPPING (08/26/2024 11:55 AM CRYPTOLOGICAL TECHNICIAN) Pathologist [facility] TEGPLM (Max Amplitude) Koalin 65.1 53.0 - 68.0 mm 08/26/2024 12:59 PM [facility] TEGPLM (Max Amplitude) ACTF 16.7 2.0 - 19.0 mm 08/26/2024 12:59 PM [facility] TEGPLM (Max Amplitude) ADP 62.7 45.0 - 69.0 mm 08/26/2024 12:59 PM [facility] TEGPLM (Max Amplitude) AA 46.8(L) 51.0 - 71.0 mm 08/26/2024 12:59 PM [facility] Comment:AA MA below normal r jose. Inhibition present. TEGPLM %Inhibition ADP 5.0 0.0 - 17.0 % 08/26/2024 12:59 PM CRYPTOLOGICAL TECHNICIAN [facility] TEGPLM %Inhibition AA 37.8(H) 0.0 - 11.0 % 08/26/2024 12:59 PM [facility] TEGPLM %Aggregation ADP 95.0 83.0 - 100.0 % 08/26/2024 12:59 PM [facility] TEGPLM % Aggregation AA 62.2(L) 89.0 - 100.0 % 08/26/2024 12:59 PM [facility] Blood BLOOD SPECIMEN / Unknown Venipuncture / Unknown 08/26/2024 11:55 AM CRYPTOLOGICAL TECHNICIAN 08/26/2024 12:05 PM CRYPTOLOGICAL TECHNICIAN David Rojas MD LAB - HEMATOLOGY OR DERABLES [facility] [address] [place] [phone], [facility] [phone] * XR PELVIS 1 OR 2VW (08/26/2024 1:57 AM CRYPTOLOGICAL TECHNICIAN) Anatomical Region Laterality Modality Pelvis Digital Radiogra phy 08/26/2024 4:30 AM CRYPTOLOGICAL TECHNICIAN Impressions 08/26/2024 8:55 AM CRYPTOLOGICAL TECHNICIAN IMPRESSION: No acute fracture identified. Report dictated by Kris Arthur DO (physician vice president). IStacia MD have personally reviewed and interpreted this examination/study. > Interpreting Provider: Stacia Montero MD on 08/26/2024 8:55 AM Narrative 08/26/2024 8:55 AM CRYPTOLOGICAL TECHNICIAN PROCEDURE: XR PELVIS 1 OR 2VW, DATE/TIME OF EXAM: 08/26/2024 1:57 AM, LOCATION [facility] INDICATION: Trauma Fracture suspected COMPARISON: None. FINDINGS: No acute fracture is identified. The femoral heads appear well-seated within their respective acetabula. The pubic symphysis is intact. Bone density and texture are normal. The sacroiliac joints are normal. Clips are seen in the pelvis. There is contrast in the urinary bladder Procedure Note Stacia Montero MD - 08/26/2024 PROCEDURE: XR PELVIS 1 OR 2VW, DATE/TIME OF EXAM: 08/26/2024 1:57 AM, LOCATION [facility] INDICATION: Trauma Fracture suspected COMPARISON: None. FINDINGS: No acute fracture is identified. The femoral heads appear well-seated within their respective acetabula. The pubic symphysis is intact. Bone density and texture are normal. The sacroiliac joints are normal. Clipsare seen in the pelvis. There is contrast in the urinary bladder IMPRESSION: No acute fracture identified. Report dictated by Kris Arthur DO (physician vice president). Stacia Ardon MD have personally reviewed and interpreted this examination/study. > Interpreting Provider: Stacia Montero MD on 08/26/2024 8:55 AM Clovis Wilkinson MD DIAGNOSTIC IMAGING O RDERABLES * CT CHEST ABDOMEN PELVIS W CONT - Abdomen-pelvis trauma, blunt or penetrating (08/26/2024 1:51 AM CRYPTOLOGICAL TECHNICIAN) Anatomical Region Laterality Modality Chest, Abdomen, Pelvis Computed Tomography 08/26/2024 3:16 AM CRYPTOLOGICAL TECHNICIAN Impressions 08/26/2024 8:56 AM CRYPTOLOGICAL TECHNICIAN Impression: 1.Displaced to minimally displaced fractures of left posterior ribs 8-12 with left lower lobe pulmonary contusion with moderate left hemothorax,. Additional small right pleural effusion/hemothorax and adjacent atelectasis. 2.Left posterolateral thoracolumbar fascia/musculature soft tissue contusions are present without active hemorrhage. 3.Cardiomediastinal suggestive of left heart dysfunction. 4.Apparent area of wall thickening involving the distal transverse colon/splenic flexure which may be artifactual representing ingested contents. However correlation with prior colonoscopy reports recommended to exclude underlying mass lesion. Please refer to the separately dictated report of CT scan of the thoracic and lumbar spine for neuroradiological findings. > Dictated by Brandon Raya MD, PhD (physician vice president). Scooter Ardon have personally reviewed and interpreted this examination/study. > Interpreting Provider: Scooter Jamison on 08/26/2024 8:56 AM Narrative 08/26/2024 8:56 AM CRYPTOLOGICAL TECHNICIAN PROCEDURE: CT CHEST ABDOMEN PELVIS W CONT, DATE/TIME OF EXAM: 08/26/2024 1:53 AM, LOCATION [facility] INDICATION: Trauma ADDITIONAL CLINICAL INFORMATION: Ordering Provider Reason For Exam: Technologist Note: Additional: COMPARISON: None. TECHNIQUE: CT of the chest, abdomen, and pelvis was performed after the uneventful administration of 100 mL of Isovue 370 intravenous contrast according to standard protocol. Findings: Devices: *Cervical collar. *Left subclavian approach to a pacemaker with leads terminating the right atrium, right ventricle, and coronary sinus. Chest: Lower Neck and Axillae: Normal. Airway, Lungs, and Pleura: The airway is patent. Paraseptal emphysematous changes are present. Moderate left and small right pleural effusions, with associated atelectasis. Given density and adjacent fractures, left sided effusion likely represents hemothorax. Possible superimposed contusions in the left lower lobe. Heart and Pericardium: Cardiomegaly including left atrial enlargement. Coronary artery calcification is present. Mediastinum and Lelo: Postoperative changes of median sternotomy. No mediastinal hemorrhage is present.No enlarged lymph nodes are present. Thoracic Vasculature: No vascular abnormality is present. The main pulmonary artery size is within normal limits. Abdomen/Pelvis: Liver: Normal. No focal hepatic lesions. Gallbladder and Bile Ducts: Normal. Spleen: Normal. Pancreas: Normal. Adrenals: Normal. Kidneys/Renal Collecting System and Ureters: Prior contrast administration limits evaluation for renal calculi. Otherwise, within normal limits. Bladder: Partially distended with contrast, within normal limits. Reproductive Organs: The prostate is normal. Gastrointestinal: The stomach and visualized loops small bowel are unremarkable. Apparent area of wall thickening involving the distal transverse colon/hepatic flexure. (Series 4 image 45, series 11 image 53). The appendix is not seen; however, no inflammatory changes are seen in the right lower quadrant. Mesentery/Peritoneum/Retroperitoneum: Normal. No free air, free fluid, or lymphadenopathy. Abdominal Vasculature: Mild calcifications of the aorta and its branch vessels. Bones: Multiple fractures of the axial and appendicular skeleton as listed below: *Displaced to minimally displaced fractures of left posterior ribs 8-12. Suspected/partially characterized left costovertebral/transverse process fractures of T9-T11. *Chronic right posterior rib 6 fracture. Multilevel degenerative changes are seen in the spine with grade 1 retrolisthesis of L3 over L4 and grade 1 anterolisthesis of L4 over L5.. Soft tissues: Soft tissue contusions extending into the left posterolateral thoracolumbar fascia/musculature. Procedure Note Scooter Jamison MD - 08/26/2024 PROCEDURE: CT CHEST ABDOMEN PELVIS W CONT, DATE/TIME OF EXAM:08/26/2024 1:53 AM, LOCATION [facility] INDICATION: Trauma ADDITIONAL CLINICAL INFORMATION: Ordering Provider Reason For Exam: Technologist Note: Additional: COMPARISON: None. TECHNIQUE: CT of the chest, abdomen, and pelvis was performed after the uneventful administration of 100 mL of Isovue 370 intravenous contrast according to standard protocol. Findings: Devices: *Cervical collar. *Left subclavian approach to a pacemaker with leads terminating theright atrium, right ventricle, and coronary sinus. Chest: Lower Neck and Axillae: Normal. Airway, Lungs, and Pleura: The airway is patent. Paraseptal emphysematous changes are present. Moderate left and small right pleural effusions, with associated atelectasis. Given density and adjacent fractures, left sided effusion likely represents hemothorax. Possible superimposed contusions in theleft lower lobe. Heart and Pericardium: Cardiomegaly including left atrial enlargement. Coronary artery calcification is present. Mediastinum and Lelo: Postoperative changes of median sternotomy. No mediastinal hemorrhage is present.No enlarged lymph nodes are present. Thoracic Vasculature: No vascular abnormality is present. The main pulmonary artery size is within normal limits. Abdomen/Pelvis: Liver: Normal. No focal hepatic lesions. Gallbladder and Bile Ducts: Normal. Spleen: Normal. Pancreas: Normal. Adrenals: Normal. Kidneys/Renal Collecting System and Ureters: Prior contrast administration limits evaluation for renal calculi. Otherwise, within normal limits. Bladder: Partially distended with contrast, within normal limits. Reproductive Organs: The prostate is normal. Gastrointestinal: The stomach and visualized loops small bowel are unremarkable. Apparent area of wall thickening involving the distal transverse colon/hepatic flexure. (Series 4 image 45, series 11 image 53). The appendix is notseen; however, no inflammatory changes are seen in the right lower quadrant. Mesentery/Peritoneum/Retroperitoneum: Normal. No free air, free fluid, or lymphadenopathy. Abdominal Vasculature: Mild calcifications of the aorta and its branch vessels. Bones: Multiple fractures of the axial and appendicular skeleton as listedbelow: *Displaced to minimally displaced fractures of left posterior ribs 8-12. Suspected/partially characterized left costovertebral/transverse process fractures of T9-T11. *Chronic right posterior rib 6 fracture. Multilevel degenerative changes are seen in the spine with grade 1 retrolisthesis of L3 over L4 and grade 1 anterolisthesis of L4 over L5.. Soft tissues: Soft tissue contusions extending into the left posterolateralthoracolumbar fascia/musculature. Impression: 1.Displaced to minimally displaced fractures of left posterior ribs 8-12 with left lower lobe pulmonary contusion with moderate left hemothorax,. Additional small right pleural effusion/hemothorax and adjacent atelectasis. 2.Left posterolateral thoracolumbar fascia/musculature soft tissue contusions are present without active hemorrhage. 3.Cardiomediastinal suggestive of left heart dysfunction. 4.Apparent area of wall thickening involving the distal transverse colon/splenic flexure which may be artifactual representing ingested contents. However correlation with prior colonoscopy reports recommendedto exclude underlying mass lesion. Please refer to the separately dictated report of CT scan of thethoracic and lumbar spine for neuroradiological findings. > Dictated by Brandon Raya MD, PhD (physician vice president). Scooter Ardon have personally reviewed and interpreted this examination/study. > Interpreting Provider: Scooter Jamison on 08/26/2024 8:56 AM Clovis Wilkinson MD CT ORDERABLES * CT LUMBAR SPINE WO CONTRAST - T/L-spine trauma, Spine fracture (08/26/2024 1:51 AM CRYPTOLOGICAL TECHNICIAN) Anatomical Region Laterality Modality Spine Computed Tomogra phy 08/26/2024 2:41 AM CRYPTOLOGICAL TECHNICIAN Impressions 08/26/2024 9:31 AM CRYPTOLOGICAL TECHNICIAN IMPRESSION: 1.No acute intracranial process. 2.No evidence of acute fracture in the cervical, thoracic, or lumbar spine. 3.Multiple chronic findings as detailed in the report. 4.Mildly displaced acute fractures of the posterior ninth, 10th and 11th ribs. Incompletely imaged bilateral hemithoraces. Please refer to the report of concurrent CT of the chest, upper abdomen pelvis for further details. > Dictated by Kris Arthur DO (Gymnastics Coach), 08/26/2024 2:42 AM. Rosaura Ardon MD have personally reviewed and interpreted this examination/study. > Interpreting Provider: Rosaura Moe MD on 08/26/2024 9:31 AM Narrative 08/26/2024 9:31 AM CRYPTOLOGICAL TECHNICIAN PROCEDURE: CT HEAD WO CONTRAST, CT CERVICAL SPINE WO CONTRAST, CT THORACIC SPINE WO CONTRAST, CT LUMBAR SPINE WO CONTRAST, DATE/TIME OF EXAM: 08/26/2024 1:53 AM, LOCATION [facility] INDICATION: Trauma EXAMINATION: 1.Computed tomography (CT) of the head without contrast 2.CT of the cervical spine without contrast 3.CT of the thoracic spine without contrast 4.CT of the lumbar spine without contrast TECHNIQUE: CT of the head and cervical spine was performed without contrast according to standard protocol. Reformatted axial, sagittal, and coronal images of the thoracic and lumbar spine were obtained by the technologist from a concurrently performed body CT and sent to the workstation for review. CT dose reduction technique was used, including Automated Exposure Control. COMPARISON: No prior study is available for comparison at the time of this dictation. FINDINGS: Head: No acute intra- or extra-axial fluid collections are identified. There is moderate cerebral volume loss with associated ex vacuo ventricular dilatation. The basilar cisterns are patent. No mass effect or midline shift is seen. The laws-white matter differentiation is normal. Periventricular white matter hypoattenuation is indicative of chronic small vessel ischemic disease. There is vascular calcification of the carotid siphons and vertebral arteries. No acute calvarial fracture is identified.. Other than bilateral cataract extractions, the orbits appear normal. There is mild paranasal sinus disease. The mastoid air cells are clear. No soft tissue abnormality is identified. Cervical spine: The alignment is normal. Vertebral bodies are normal in height without evidence of acute fracture. Other than middle atlantoaxial joint osteoarthritis, the craniocervical junction appears normal. There is mild degenerative disc disease. There is posterior disc bulge noted at multiple levels with degrees of mild spinal canal narrowing. There are varying degrees of mild facet osteoarthritis. There are varying degrees of mild uncovertebral joint osteoarthritis with the same degree of neural foraminal stenosis at these levels. There is atherosclerotic calcification of the carotid bifurcations. Thoracic spine: The alignment is normal. Diffuse osteopenia. Vertebral bodies are normal in height without evidence of acute fracture. There is mild to moderate multilevel degenerative disc disease. Mild spinal canal narrowing most prominent at T9-T10 secondary to ligamentum flavum hypertrophy. Bridging syndesmophytes and ossification of the anterior longitudinal ligament at multiple levels suggest diffuse idiopathic skeletal hyperostosis (DISH). There is mild facet osteoarthritis at multiple levels. There are varying degrees of neural foraminal stenosis at multiple levels. Mildly displaced acute fractures of the posterior left ninth, 10th and 11th ribs. Incompletely imaged bilateral hemithoraces and basilar atelectasis, left greater than right. Please refer to the report of a concurrent CT of the chest for further details. Lumbar spine: Grade 1 retrolisthesis of L2 on L3 and L3 on L4. Grade 1 anterolisthesis of L4 on L5. Mild dextroscoliosis. Diffuse osteopenia. Vertebral bodies are normal in height without evidence of acute fracture. There is mild to moderate multilevel degenerative disc disease. Posterior disc bulge noted at multiple levels with varying degrees of up to moderate spinal canal narrowing. 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 There are varying degrees of neural foraminal stenosis at multiple levels. There is atherosclerotic calcification of the abdominal aorta and its branch vessels. Brain injury guidelines: Skull fracture: No Subdural hematoma: No subdural hematoma. Epidural hematoma: No epidural hematoma. Intraparenchymal hemorrhage: No intraparenchymal hemorrhage. Subarachnoid hemorrhage: No subarachnoid hemorrhage. Intraventricular hemorrhage: No. Midline shift: No. Procedure Note Rosaura Moe MD - 08/26/2024 PROCEDURE: CT HEAD WO CONTRAST, CT CERVICAL SPINE WO CONTRAST, CTTHORACIC SPINE WO CONTRAST, CT LUMBAR SPINE WO CONTRAST, DATE/TIME OF EXAM: 08/26/2024 1:53 AM, LOCATION [facility] INDICATION: Trauma EXAMINATION: 1.Computed tomography (CT) of the head without contrast 2.CT of the cervical spine without contrast 3.CT of the thoracic spine without contrast 4.CT of the lumbar spine without contrast TECHNIQUE: CT of the head and cervical spine was performed withoutcontrast according to standard protocol. Reformatted axial, sagittal, and coronal images of the thoracic and lumbar spine were obtained by thetechnologist from a concurrently performed body CT and sent to the workstation for review. CT dose reduction technique was used, including AutomatedExposure Control. COMPARISON: No prior study is available for comparison at the time ofthis dictation. FINDINGS: Head: No acute intra- or extra-axial fluid collections are identified. Thereis moderate cerebral volume loss with associated ex vacuo ventricular dilatation. The basilar cisterns are patent. No mass effect or midline shift is seen. The laws-white matter differentiation is normal. Periventricular white matter hypoattenuation is indicative of chronicsmall vessel ischemic disease. There is vascular calcification of the carotid siphons and vertebral arteries. No acute calvarial fracture is identified.. Other than bilateralcataract extractions, the orbits appear normal. There is mild paranasal sinus disease. The mastoid air cells are clear. No soft tissue abnormality is identified. Cervical spine: The alignment is normal. Vertebral bodies are normal in height without evidence of acute fracture. Other than middle atlantoaxial joint osteoarthritis, the craniocervical junction appears normal. There ismild degenerative disc disease. There is posterior disc bulge noted atmultiple levels with degrees of mild spinal canal narrowing. There are varying degrees of mild facet osteoarthritis. There are varying degrees of mild uncovertebral joint osteoarthritis with the same degree of neuralforaminal stenosis at these levels. There is atherosclerotic calcification of the carotid bifurcations. Thoracic spine: The alignment is normal. Diffuse osteopenia. Vertebral bodies are normalin height without evidence of acute fracture. There is mild to moderate multilevel degenerative disc disease. Mild spinal canal narrowing most prominent at T9-T10 secondary to ligamentum flavum hypertrophy. Bridging syndesmophytes and ossification of the anterior longitudinal ligament at multiple levels suggest diffuse idiopathic skeletal hyperostosis (DISH). There is mild facet osteoarthritis at multiple levels. There are varying degrees of neural foraminal stenosis at multiple levels. Mildly displaced acute fractures of the posterior left ninth, 10th [id number] ribs. Incompletely imaged bilateral hemithoraces and basilar atelectasis, left greater than right. Please refer to the report of a concurrent CT of the chest for further details. Lumbar spine: Grade 1 retrolisthesis of L2 on L3 and L3 on L4. Grade 1 anterolisthesisof L4 on L5. Mild dextroscoliosis. Diffuse osteopenia. Vertebral bodies are normal in height without evidence of acute fracture. There is mild to moderate multilevel degenerative disc disease. Posterior disc bulgenoted at multiple levels with varying degrees of up to moderate spinal canal narrowing. 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 There is atherosclerotic calcification of the abdominal aorta and its branch vessels. Brain injury guidelines: Skull fracture: No Subdural hematoma: No subdural hematoma. Epidural hematoma: No epidural hematoma. Intraparenchymal hemorrhage: No intraparenchymal hemorrhage. Subarachnoid hemorrhage: No subarachnoid hemorrhage. Intraventricular hemorrhage: No. Midline shift: No. IMPRESSION: 1.No acute intracranial process. 2.No evidence of acute fracture in the cervical, thoracic, or lumbarspine. 3.Multiple chronic findings as detailed in the report. 4.Mildly displaced acute fractures of the posterior ninth, 10th and 11th ribs. Incompletely imaged bilateral hemithoraces. Please refer to the report of concurrent CT of the chest, upper abdomen pelvis for further details. > Dictated by Kris Arthur DO (Gymnastics Coach), 08/26/2024 2:42 AM. Rosaura Ardon MD have personally reviewed and interpreted this examination/study. > Interpreting Provider: Rosaura Moe MD on 08/26/2024 9:31 AM Clovis Wilkinson MD CT ORDERABLES * CT THORACIC SPINE WO CONTRAST - T/L-spine trauma, spine fracture (08/26/2024 1:51 AM CRYPTOLOGICAL TECHNICIAN) Anatomical Region Laterality Modality Spine Computed Tomogra phy 08/26/2024 2:41 AM CRYPTOLOGICAL TECHNICIAN Impressions 08/26/2024 9:31 AM CRYPTOLOGICAL TECHNICIAN IMPRESSION: 1.No acute intracranial process. 2.No evidence of acute fracture in the cervical, thoracic, or lumbar spine. 3.Multiple chronic findings as detailed in the report. 4.Mildly displaced acute fractures of the posterior ninth, 10th and 11th ribs. Incompletely imaged bilateral hemithoraces. Please refer to the report of concurrent CT of the chest, upper abdomen pelvis for further details. > Dictated by Kris Arthur DO (Gymnastics Coach), 08/26/2024 2:42 AM. Rosaura Ardon MD have personally reviewed and interpreted this examination/study. > Interpreting Provider: Rosaura Moe MD on 08/26/2024 9:31 AM Narrative 08/26/2024 9:31 AM CRYPTOLOGICAL TECHNICIAN PROCEDURE: CT HEAD WO CONTRAST, CT CERVICAL SPINE WO CONTRAST, CT THORACIC SPINE WO CONTRAST, CT LUMBAR SPINE WO CONTRAST, DATE/TIME OF EXAM: 08/26/2024 1:53 AM, LOCATION [facility] INDICATION: Trauma EXAMINATION: 1.Computed tomography (CT) of the head without contrast 2.CT of the cervical spine without contrast 3.CT of the thoracic spine without contrast 4.CT of the lumbar spine without contrast TECHNIQUE: CT of the head and cervical spine was performed without contrast according to standard protocol. Reformatted axial, sagittal, and coronal images of the thoracic and lumbar spine were obtained by the technologist from a concurrently performed body CT and sent to the workstation for review. CT dose reduction technique was used, including Automated Exposure Control. COMPARISON: No prior study is available for comparison at the time of this dictation. FINDINGS: Head: No acute intra- or extra-axial fluid collections are identified. There is moderate cerebral volume loss with associated ex vacuo ventricular dilatation. The basilar cisterns are patent. No mass effect or midline shift is seen. The laws-white matter differentiation is normal. Periventricular white matter hypoattenuation is indicative of chronic small vessel ischemic disease. There is vascular calcification of the carotid siphons and vertebral arteries. No acute calvarial fracture is identified.. Other than bilateral cataract extractions, the orbits appear normal. There is mild paranasal sinus disease. The mastoid air cells are clear. No soft tissue abnormality is identified. Cervical spine: The alignment is normal. Vertebral bodies are normal in height without evidence of acute fracture. Other than middle atlantoaxial joint osteoarthritis, the craniocervical junction appears normal. There is mild degenerative disc disease. There is posterior disc bulge noted at multiple levels with degrees of mild spinal canal narrowing. There are varying degrees of mild facet osteoarthritis. There are varying degrees of mild uncovertebral joint osteoarthritis with the same degree of neural foraminal stenosis at these levels. There is atherosclerotic calcification of the carotid bifurcations. Thoracic spine: The alignment is normal. Diffuse osteopenia. Vertebral bodies are normal in height without evidence of acute fracture. There is mild to moderate multilevel degenerative disc disease. Mild spinal canal narrowing most prominent at T9-T10 secondary to ligamentum flavum hypertrophy. Bridging syndesmophytes and ossification of the anterior longitudinal ligament at multiple levels suggest diffuse idiopathic skeletal hyperostosis (DISH). There is mild facet osteoarthritis at multiple levels. There are varying degrees of neural foraminal stenosis at multiple levels. Mildly displaced acute fractures of the posterior left ninth, 10th and 11th ribs. Incompletely imaged bilateral hemithoraces and basilar atelectasis, left greater than right. Please refer to the report of a concurrent CT of the chest for further details. Lumbar spine: Grade 1 retrolisthesis of L2 on L3 and L3 on L4. Grade 1 anterolisthesis of L4 on L5. Mild dextroscoliosis. Diffuse osteopenia. Vertebral bodies are normal in height without evidence of acute fracture. There is mild to moderate multilevel degenerative disc disease. Posterior disc bulge noted at multiple levels with varying degrees of up to moderate spinal canal narrowing. 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 There are varying degrees of neural foraminal stenosis at multiple levels. There is atherosclerotic calcification of the abdominal aorta and its branch vessels. Brain injury guidelines: Skull fracture: No Subdural hematoma: No subdural hematoma. Epidural hematoma: No epidural hematoma. Intraparenchymal hemorrhage: No intraparenchymal hemorrhage. Subarachnoid hemorrhage: No subarachnoid hemorrhage. Intraventricular hemorrhage: No. Midline shift: No. Procedure Note Rosaura Moe MD - 08/26/2024 PROCEDURE: CT HEAD WO CONTRAST, CT CERVICAL SPINE WO CONTRAST, CTTHORACIC SPINE WO CONTRAST, CT LUMBAR SPINE WO CONTRAST, DATE/TIME OF EXAM: 08/26/2024 1:53 AM, LOCATION [facility] INDICATION: Trauma EXAMINATION: 1.Computed tomography (CT) of the head without contrast 2.CT of the cervical spine without contrast 3.CT of the thoracic spine without contrast 4.CT of the lumbar spine without contrast TECHNIQUE: CT of the head and cervical spine was performed withoutcontrast according to standard protocol. Reformatted axial, sagittal, and coronal images of the thoracic and lumbar spine were obtained by thetechnologist from a concurrently performed body CT and sent to the workstation for review. CT dose reduction technique was used, including AutomatedExposure Control. COMPARISON: No prior study is available for comparison at the time ofthis dictation. FINDINGS: Head: No acute intra- or extra-axial fluid collections are identified. Thereis moderate cerebral volume loss with associated ex vacuo ventricular dilatation. The basilar cisterns are patent. No mass effect or midline shift is seen. The laws-white matter differentiation is normal. Periventricular white matter hypoattenuation is indicative of chronicsmall vessel ischemic disease. There is vascular calcification of the carotid siphons and vertebral arteries. No acute calvarial fracture is identified.. Other than bilateralcataract extractions, the orbits appear normal. There is mild paranasal sinus disease. The mastoid air cells are clear. No soft tissue abnormality is identified. Cervical spine: The alignment is normal. Vertebral bodies are normal in height without evidence of acute fracture. Other than middle atlantoaxial joint osteoarthritis, the craniocervical junction appears normal. There ismild degenerative disc disease. There is posterior disc bulge noted atmultiple levels with degrees of mild spinal canal narrowing. There are varying degrees of mild facet osteoarthritis. There are varying degrees of mild uncovertebral joint osteoarthritis with the same degree of neuralforaminal stenosis at these levels. There is atherosclerotic calcification of the carotid bifurcations. Thoracic spine: The alignment is normal. Diffuse osteopenia. Vertebral bodies are normalin height without evidence of acute fracture. There is mild to moderate multilevel degenerative disc disease. Mild spinal canal narrowing most prominent at T9-T10 secondary to ligamentum flavum hypertrophy. Bridging syndesmophytes and ossification of the anterior longitudinal ligament at multiple levels suggest diffuse idiopathic skeletal hyperostosis (DISH). There is mild facet osteoarthritis at multiple levels. There are varying degrees of neural foraminal stenosis at multiple levels. Mildly displaced acute fractures of the posterior left ninth, 10th [id number] ribs. Incompletely imaged bilateral hemithoraces and basilar atelectasis, left greater than right. Please refer to the report of a concurrent CT of the chest for further details. Lumbar spine: Grade 1 retrolisthesis of L2 on L3 and L3 on L4. Grade 1 anterolisthesisof L4 on L5. Mild dextroscoliosis. Diffuse osteopenia. Vertebral bodies are normal in height without evidence of acute fracture. There is mild to moderate multilevel degenerative disc disease. Posterior disc bulgenoted at multiple levels with varying degrees of up to moderate spinal canal narrowing. 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 There is atherosclerotic calcification of the abdominal aorta and its branch vessels. Brain injury guidelines: Skull fracture: No Subdural hematoma: No subdural hematoma. Epidural hematoma: No epidural hematoma. Intraparenchymal hemorrhage: No intraparenchymal hemorrhage. Subarachnoid hemorrhage: No subarachnoid hemorrhage. Intraventricular hemorrhage: No. Midline shift: No. IMPRESSION: 1.No acute intracranial process. 2.No evidence of acute fracture in the cervical, thoracic, or lumbarspine. 3.Multiple chronic findings as detailed in the report. 4.Mildly displaced acute fractures of the posterior ninth, 10th and 11th ribs. Incompletely imaged bilateral hemithoraces. Please refer to the report of concurrent CT of the chest, upper abdomen pelvis for further details. > Dictated by Kris Arthur DO (Gymnastics Coach), 08/26/2024 2:42 AM. Rosaura Ardon MD have personally reviewed and interpreted this examination/study. > Interpreting Provider: Rosaura Moe MD on 08/26/2024 9:31 AM Clovis Wilkinson MD CT ORDERABLES * CT CERVICAL SPINE WO CONTRAST - C-Spine Trauma, Spine fracture (08/26/2024 1:51 AM CRYPTOLOGICAL TECHNICIAN) Anatomical Region Laterality Modality Spine Computed Tomogra phy 08/26/2024 2:41 AM CRYPTOLOGICAL TECHNICIAN Impressions 08/26/2024 9:31 AM CRYPTOLOGICAL TECHNICIAN IMPRESSION: 1.No acute intracranial process. 2.No evidence of acute fracture in the cervical, thoracic, or lumbar spine. 3.Multiple chronic findings as detailed in the report. 4.Mildly displaced acute fractures of the posterior ninth, 10th and 11th ribs. Incompletely imaged bilateral hemithoraces. Please refer to the report of concurrent CT of the chest, upper abdomen pelvis for further details. > Dictated by Kris Arthur DO (Gymnastics Coach), 08/26/2024 2:42 AM. Rosaura Ardon MD have personally reviewed and interpreted this examination/study. > Interpreting Provider: Rosaura Moe MD on 08/26/2024 9:31 AM Narrative 08/26/2024 9:31 AM CRYPTOLOGICAL TECHNICIAN PROCEDURE: CT HEAD WO CONTRAST, CT CERVICAL SPINE WO CONTRAST, CT THORACIC SPINE WO CONTRAST, CT LUMBAR SPINE WO CONTRAST, DATE/TIME OF EXAM: 08/26/2024 1:53 AM, LOCATION [facility] INDICATION: Trauma EXAMINATION: 1.Computed tomography (CT) of the head without contrast 2.CT of the cervical spine without contrast 3.CT of the thoracic spine without contrast 4.CT of the lumbar spine without contrast TECHNIQUE: CT of the head and cervical spine was performed without contrast according to standard protocol. Reformatted axial, sagittal, and coronal images of the thoracic and lumbar spine were obtained by the technologist from a concurrently performed body CT and sent to the workstation for review. CT dose reduction technique was used, including Automated Exposure Control. COMPARISON: No prior study is available for comparison at the time of this dictation. FINDINGS: Head: No acute intra- or extra-axial fluid collections are identified. There is moderate cerebral volume loss with associated ex vacuo ventricular dilatation. The basilar cisterns are patent. No mass effect or midline shift is seen. The laws-white matter differentiation is normal. Periventricular white matter hypoattenuation is indicative of chronic small vessel ischemic disease. There is vascular calcification of the carotid siphons and vertebral arteries. No acute calvarial fracture is identified.. Other than bilateral cataract extractions, the orbits appear normal. There is mild paranasal sinus disease. The mastoid air cells are clear. No soft tissue abnormality is identified. Cervical spine: The alignment is normal. Vertebral bodies are normal in height without evidence of acute fracture. Other than middle atlantoaxial joint osteoarthritis, the craniocervical junction appears normal. There is mild degenerative disc disease. There is posterior disc bulge noted at multiple levels with degrees of mild spinal canal narrowing. There are varying degrees of mild facet osteoarthritis. There are varying degrees of mild uncovertebral joint osteoarthritis with the same degree of neural foraminal stenosis at these levels. There is atherosclerotic calcification of the carotid bifurcations. Thoracic spine: The alignment is normal. Diffuse osteopenia. Vertebral bodies are normal in height without evidence of acute fracture. There is mild to moderate multilevel degenerative disc disease. Mild spinal canal narrowing most prominent at T9-T10 secondary to ligamentum flavum hypertrophy. Bridging syndesmophytes and ossification of the anterior longitudinal ligament at multiple levels suggest diffuse idiopathic skeletal hyperostosis (DISH). There is mild facet osteoarthritis at multiple levels. There are varying degrees of neural foraminal stenosis at multiple levels. Mildly displaced acute fractures of the posterior left ninth, 10th and 11th ribs. Incompletely imaged bilateral hemithoraces and basilar atelectasis, left greater than right. Please refer to the report of a concurrent CT of the chest for further details. Lumbar spine: Grade 1 retrolisthesis of L2 on L3 and L3 on L4. Grade 1 anterolisthesis of L4 on L5. Mild dextroscoliosis. Diffuse osteopenia. Vertebral bodies are normal in height without evidence of acute fracture. There is mild to moderate multilevel degenerative disc disease. Posterior disc bulge noted at multiple levels with varying degrees of up to moderate spinal canal narrowing. 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 There are varying degrees of neural foraminal stenosis at multiple levels. There is atherosclerotic calcification of the abdominal aorta and its branch vessels. Brain injury guidelines: Skull fracture: No Subdural hematoma: No subdural hematoma. Epidural hematoma: No epidural hematoma. Intraparenchymal hemorrhage: No intraparenchymal hemorrhage. Subarachnoid hemorrhage: No subarachnoid hemorrhage. Intraventricular hemorrhage: No. Midline shift: No. Procedure Note Rosaura Moe MD - 08/26/2024 PROCEDURE: CT HEAD WO CONTRAST, CT CERVICAL SPINE WO CONTRAST, CTTHORACIC SPINE WO CONTRAST, CT LUMBAR SPINE WO CONTRAST, DATE/TIME OF EXAM: 08/26/2024 1:53 AM, LOCATION [facility] INDICATION: Trauma EXAMINATION: 1.Computed tomography (CT) of the head without contrast 2.CT of the cervical spine without contrast 3.CT of the thoracic spine without contrast 4.CT of the lumbar spine without contrast TECHNIQUE: CT of the head and cervical spine was performed withoutcontrast according to standard protocol. Reformatted axial, sagittal, and coronal images of the thoracic and lumbar spine were obtained by thetechnologist from a concurrently performed body CT and sent to the workstation for review. CT dose reduction technique was used, including AutomatedExposure Control. COMPARISON: No prior study is available for comparison at the time ofthis dictation. FINDINGS: Head: No acute intra- or extra-axial fluid collections are identified. Thereis moderate cerebral volume loss with associated ex vacuo ventricular dilatation. The basilar cisterns are patent. No mass effect or midline shift is seen. The laws-white matter differentiation is normal. Periventricular white matter hypoattenuation is indicative of chronicsmall vessel ischemic disease. There is vascular calcification of the carotid siphons and vertebral arteries. No acute calvarial fracture is identified.. Other than bilateralcataract extractions, the orbits appear normal. There is mild paranasal sinus disease. The mastoid air cells are clear. No soft tissue abnormality is identified. Cervical spine: The alignment is normal. Vertebral bodies are normal in height without evidence of acute fracture. Other than middle atlantoaxial joint osteoarthritis, the craniocervical junction appears normal. There ismild degenerative disc disease. There is posterior disc bulge noted atmultiple levels with degrees of mild spinal canal narrowing. There are varying degrees of mild facet osteoarthritis. There are varying degrees of mild uncovertebral joint osteoarthritis with the same degree of neuralforaminal stenosis at these levels. There is atherosclerotic calcification of the carotid bifurcations. Thoracic spine: The alignment is normal. Diffuse osteopenia. Vertebral bodies are normalin height without evidence of acute fracture. There is mild to moderate multilevel degenerative disc disease. Mild spinal canal narrowing most prominent at T9-T10 secondary to ligamentum flavum hypertrophy. Bridging syndesmophytes and ossification of the anterior longitudinal ligament at multiple levels suggest diffuse idiopathic skeletal hyperostosis (DISH). There is mild facet osteoarthritis at multiple levels. There are varying degrees of neural foraminal stenosis at multiple levels. Mildly displaced acute fractures of the posterior left ninth, 10th [id number] ribs. Incompletely imaged bilateral hemithoraces and basilar atelectasis, left greater than right. Please refer to the report of a concurrent CT of the chest for further details. Lumbar spine: Grade 1 retrolisthesis of L2 on L3 and L3 on L4. Grade 1 anterolisthesisof L4 on L5. Mild dextroscoliosis. Diffuse osteopenia. Vertebral bodies are normal in height without evidence of acute fracture. There is mild to moderate multilevel degenerative disc disease. Posterior disc bulgenoted at multiple levels with varying degrees of up to moderate spinal canal narrowing. 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 There is atherosclerotic calcification of the abdominal aorta and its branch vessels. Brain injury guidelines: Skull fracture: No Subdural hematoma: No subdural hematoma. Epidural hematoma: No epidural hematoma. Intraparenchymal hemorrhage: No intraparenchymal hemorrhage. Subarachnoid hemorrhage: No subarachnoid hemorrhage. Intraventricular hemorrhage: No. Midline shift: No. IMPRESSION: 1.No acute intracranial process. 2.No evidence of acute fracture in the cervical, thoracic, or lumbarspine. 3.Multiple chronic findings as detailed in the report. 4.Mildly displaced acute fractures of the posterior ninth, 10th and 11th ribs. Incompletely imaged bilateral hemithoraces. Please refer to the report of concurrent CT of the chest, upper abdomen pelvis for further details. > Dictated by Kris Arthur DO (Gymnastics Coach), 08/26/2024 2:42 AM. Rosaura Ardon MD have personally reviewed and interpreted this examination/study. > Interpreting Provider: Rosaura Moe MD on 08/26/2024 9:31 AM Clovis Wilkinson MD CT ORDERABLES * CT HEAD WO CONTRAST - Head Trauma, CSF leak, mental status changes (08/26/2024 1:51 AM CRYPTOLOGICAL TECHNICIAN) Anatomical Region Laterality Modality Head Computed Tomogra phy 08/26/2024 2:41 AM CRYPTOLOGICAL TECHNICIAN Impressions 08/26/2024 9:31 AM CRYPTOLOGICAL TECHNICIAN IMPRESSION: 1.No acute intracranial process. 2.No evidence of acute fracture in the cervical, thoracic, or lumbar spine. 3.Multiple chronic findings as detailed in the report. 4.Mildly displaced acute fractures of the posterior ninth, 10th and 11th ribs. Incompletely imaged bilateral hemithoraces. Please refer to the report of concurrent CT of the chest, upper abdomen pelvis for further details. > Dictated by Kris Arthur DO (Gymnastics Coach), 08/26/2024 2:42 AM. Rosaura Ardon MD have personally reviewed and interpreted this examination/study. > Interpreting Provider: Rosaura Moe MD on 08/26/2024 9:31 AM Narrative 08/26/2024 9:31 AM CRYPTOLOGICAL TECHNICIAN PROCEDURE: CT HEAD WO CONTRAST, CT CERVICAL SPINE WO CONTRAST, CT THORACIC SPINE WO CONTRAST, CT LUMBAR SPINE WO CONTRAST, DATE/TIME OF EXAM: 08/26/2024 1:53 AM, LOCATION [facility] INDICATION: Trauma EXAMINATION: 1.Computed tomography (CT) of the head without contrast 2.CT of the cervical spine without contrast 3.CT of the thoracic spine without contrast 4.CT of the lumbar spine without contrast TECHNIQUE: CT of the head and cervical spine was performed without contrast according to standard protocol. Reformatted axial, sagittal, and coronal images of the thoracic and lumbar spine were obtained by the technologist from a concurrently performed body CT and sent to the workstation for review. CT dose reduction technique was used, including Automated Exposure Control. COMPARISON: No prior study is available for comparison at the time of this dictation. FINDINGS: Head: No acute intra- or extra-axial fluid collections are identified. There is moderate cerebral volume loss with associated ex vacuo ventricular dilatation. The basilar cisterns are patent. No mass effect or midline shift is seen. The laws-white matter differentiation is normal. Periventricular white matter hypoattenuation is indicative of chronic small vessel ischemic disease. There is vascular calcification of the carotid siphons and vertebral arteries. No acute calvarial fracture is identified.. Other than bilateral cataract extractions, the orbits appear normal. There is mild paranasal sinus disease. The mastoid air cells are clear. No soft tissue abnormality is identified. Cervical spine: The alignment is normal. Vertebral bodies are normal in height without evidence of acute fracture. Other than middle atlantoaxial joint osteoarthritis, the craniocervical junction appears normal. There is mild degenerative disc disease. There is posterior disc bulge noted at multiple levels with degrees of mild spinal canal narrowing. There are varying degrees of mild facet osteoarthritis. There are varying degrees of mild uncovertebral joint osteoarthritis with the same degree of neural foraminal stenosis at these levels. There is atherosclerotic calcification of the carotid bifurcations. Thoracic spine: The alignment is normal. Diffuse osteopenia. Vertebral bodies are normal in height without evidence of acute fracture. There is mild to moderate multilevel degenerative disc disease. Mild spinal canal narrowing most prominent at T9-T10 secondary to ligamentum flavum hypertrophy. Bridging syndesmophytes and ossification of the anterior longitudinal ligament at multiple levels suggest diffuse idiopathic skeletal hyperostosis (DISH). There is mild facet osteoarthritis at multiple levels. There are varying degrees of neural foraminal stenosis at multiple levels. Mildly displaced acute fractures of the posterior left ninth, 10th and 11th ribs. Incompletely imaged bilateral hemithoraces and basilar atelectasis, left greater than right. Please refer to the report of a concurrent CT of the chest for further details. Lumbar spine: Grade 1 retrolisthesis of L2 on L3 and L3 on L4. Grade 1 anterolisthesis of L4 on L5. Mild dextroscoliosis. Diffuse osteopenia. Vertebral bodies are normal in height without evidence of acute fracture. There is mild to moderate multilevel degenerative disc disease. Posterior disc bulge noted at multiple levels with varying degrees of up to moderate spinal canal narrowing. 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 There are varying degrees of neural foraminal stenosis at multiple levels. There is atherosclerotic calcification of the abdominal aorta and its branch vessels. Brain injury guidelines: Skull fracture: No Subdural hematoma: No subdural hematoma. Epidural hematoma: No epidural hematoma. Intraparenchymal hemorrhage: No intraparenchymal hemorrhage. Subarachnoid hemorrhage: No subarachnoid hemorrhage. Intraventricular hemorrhage: No. Midline shift: No. Procedure Note Rosaura Moe MD - 08/26/2024 PROCEDURE: CT HEAD WO CONTRAST, CT CERVICAL SPINE WO CONTRAST, CTTHORACIC SPINE WO CONTRAST, CT LUMBAR SPINE WO CONTRAST, DATE/TIME OF EXAM: 08/26/2024 1:53 AM, LOCATION [facility] INDICATION: Trauma EXAMINATION: 1.Computed tomography (CT) of the head without contrast 2.CT of the cervical spine without contrast 3.CT of the thoracic spine without contrast 4.CT of the lumbar spine without contrast TECHNIQUE: CT of the head and cervical spine was performed withoutcontrast according to standard protocol. Reformatted axial, sagittal, and coronal images of the thoracic and lumbar spine were obtained by thetechnologist from a concurrently performed body CT and sent to the workstation for review. CT dose reduction technique was used, including AutomatedExposure Control. COMPARISON: No prior study is available for comparison at the time ofthis dictation. FINDINGS: Head: No acute intra- or extra-axial fluid collections are identified. Thereis moderate cerebral volume loss with associated ex vacuo ventricular dilatation. The basilar cisterns are patent. No mass effect or midline shift is seen. The laws-white matter differentiation is normal. Periventricular white matter hypoattenuation is indicative of chronicsmall vessel ischemic disease. There is vascular calcification of the carotid siphons and vertebral arteries. No acute calvarial fracture is identified.. Other than bilateralcataract extractions, the orbits appear normal. There is mild paranasal sinus disease. The mastoid air cells are clear. No soft tissue abnormality is identified. Cervical spine: The alignment is normal. Vertebral bodies are normal in height without evidence of acute fracture. Other than middle atlantoaxial joint osteoarthritis, the craniocervical junction appears normal. There ismild degenerative disc disease. There is posterior disc bulge noted atmultiple levels with degrees of mild spinal canal narrowing. There are varying degrees of mild facet osteoarthritis. There are varying degrees of mild uncovertebral joint osteoarthritis with the same degree of neuralforaminal stenosis at these levels. There is atherosclerotic calcification of the carotid bifurcations. Thoracic spine: The alignment is normal. Diffuse osteopenia. Vertebral bodies are normalin height without evidence of acute fracture. There is mild to moderate multilevel degenerative disc disease. Mild spinal canal narrowing most prominent at T9-T10 secondary to ligamentum flavum hypertrophy. Bridging syndesmophytes and ossification of the anterior longitudinal ligament at multiple levels suggest diffuse idiopathic skeletal hyperostosis (DISH). There is mild facet osteoarthritis at multiple levels. There are varying degrees of neural foraminal stenosis at multiple levels. Mildly displaced acute fractures of the posterior left ninth, 10th [id number] ribs. Incompletely imaged bilateral hemithoraces and basilar atelectasis, left greater than right. Please refer to the report of a concurrent CT of the chest for further details. Lumbar spine: Grade 1 retrolisthesis of L2 on L3 and L3 on L4. Grade 1 anterolisthesisof L4 on L5. Mild dextroscoliosis. Diffuse osteopenia. Vertebral bodies are normal in height without evidence of acute fracture. There is mild to moderate multilevel degenerative disc disease. Posterior disc bulgenoted at multiple levels with varying degrees of up to moderate spinal canal narrowing. 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 There is atherosclerotic calcification of the abdominal aorta and its branch vessels. Brain injury guidelines: Skull fracture: No Subdural hematoma: No subdural hematoma. Epidural hematoma: No epidural hematoma. Intraparenchymal hemorrhage: No intraparenchymal hemorrhage. Subarachnoid hemorrhage: No subarachnoid hemorrhage. Intraventricular hemorrhage: No. Midline shift: No. IMPRESSION: 1.No acute intracranial process. 2.No evidence of acute fracture in the cervical, thoracic, or lumbarspine. 3.Multiple chronic findings as detailed in the report. 4.Mildly displaced acute fractures of the posterior ninth, 10th and 11th ribs. Incompletely imaged bilateral hemithoraces. Please refer to the report of concurrent CT of the chest, upper abdomen pelvis for further details. > Dictated by Kris Arthur DO (Gymnastics Coach), 08/26/2024 2:42 AM. I, Rosaura Moe MD have personally reviewed and interpreted this examination/study. > Interpreting Provider: Rosaura Moe MD on 08/26/2024 9:31 AM Clovis Wilkinson MD CT ORDERABLES * (ABNORMAL) PT-INR [facility] (08/26/2024 1:30 AM CRYPTOLOGICAL TECHNICIAN) PT 18.0(H) 12.1 - 14.8 Seconds 08/26/2024 2:00 AM [facility] INR 1.5 See Comment 08/26/2024 2:00 AM [facility] Comment:The suggested therap eutic range for standard coumadin (warfarin) therapy is an INR of 2.0-3.0. For high-risk patients (Mechanical Mitral Valve Prosthesis, etc.), the suggested prophylactic therapeutic range is an INR of 2.5-3.5. Blood BLOOD SPECIMEN / Unknown Venipuncture / Unknown 08/26/2024 1:30 AM CRYPTOLOGICAL TECHNICIAN 08/26/2024 1:36 AM CRYPTOLOGICAL TECHNICIAN Clovis Wilkinson MD LAB - COAGULATION OR DERABLES [address] [address], [facility] [phone] * TYPE + SCREEN PANEL (08/26/2024 1:30 AM CRYPTOLOGICAL TECHNICIAN) [facility] Antibody Screen NEG 2:51 AM CRYPTOLOGICAL TECHNICIAN [facility] ABO Rh B POS 08/26/2024 2:51 AM CRYPTOLOGICAL TECHNICIAN [facility] Blood Bank BLOOD SPECIMEN / Unknown Venipuncture / Unknown 08/26/2024 1:30 AM CRYPTOLOGICAL TECHNICIAN 08/26/2024 2:06 AM CRYPTOLOGICAL TECHNICIAN Clovis Wilkinson MD LAB - BLOOD BANK ORD ERABLES [facility] [address] [place] [id number], [place] [phone] * LIPASE BLOOD (08/26/2024 1:30 AM CRYPTOLOGICAL TECHNICIAN) Lipase 12 8 - 78 U/L 08/26/2024 2:00 AM [facility] Blood BLOOD SPECIMEN / Unknown Venipuncture / Unknown 08/26/2024 1:30 AM CRYPTOLOGICAL TECHNICIAN 08/26/2024 1:35 AM CRYPTOLOGICAL TECHNICIAN Narrative [facility] - 08/26/2024 2:00 AM CRYPTOLOGICAL TECHNICIAN Lipase results from the [employer] Alinity analyzer may not be comparable with other methodologies. Clovis Wilkinson MD LAB - CHEMISTRY CARMELO ROCHA Performing Organization Address [facility]/ZIP Co de Phone Number [facility] [address] [place] [address], [facility] [phone] * ALCOHOL ETHYL BLOOD (08/26/2024 1:30 AM CRYPTOLOGICAL TECHNICIAN) Ethanol (mg/dL) <10 <10 mg/dL 2:00 AM [facility] Ethanol Calculated (g/dL) <0.010 <=0.010 g/dL 08/26/2024 2:00 AM [facility] Blood BLOOD SPECIMEN / Unknown Venipuncture / Unknown 08/26/2024 1:30 AM CRYPTOLOGICAL TECHNICIAN 08/26/2024 1:35 AM CRYPTOLOGICAL TECHNICIAN Narrative [facility] - 08/26/2024 2:00 AM CRYPTOLOGICAL TECHNICIAN Ethanol Interp <10: None Detected. Depression of IMPROVEMENT ADVISOR: >100 mg/dl Potentially Critical: >250 mg/dl Potentially Fatal >400 mg/dl Ethanol in the patient's blood will contribute to the osmolar gap. Ethanol's contribution to the osmolar gap can be estimated by dividing the concentration of ethanol in mg/dL by 4.6. This test is for clinical use only and does not equal a EL for legal purposes. Clovis Wilkinson MD LAB - CHEMISTRY CARMELO ROCHA Performing Organization Address [facility]/ZIP Co de Phone Number [facility] [address] [place] [phone], [facility] [phone] from Last 3 Months Advance Directives * Full Code (Latest Code Status on File) Date Activated Date Inactivated Comments 08/26/2024 5:35 AM 09/05/2024 4:25 PM Care Teams [employer] Officer Relationship Specialty Start Date End Date Gege Jackson MD [address] [id number] PCP - General Internal Medicine 08/26/24
--- OUTSIDE RECORDS SUMMARY | 2024-10-31 18:25 | XMS_ITS | Patient Health Record ---
Author Organization [facility] [employer] [facility] Address [address] [place] [address] Care Team Providers Care Senior C Software Engineer Name Role Phone Dionisio Mcclendon DC Unavailable Unavailable Reason For Referral No Information Plan Of Treatment No Information Insurance Providers Payer Name Payer Address Payer Phone Subscriber Number Group Number Insured Name Patient Relationship to Insured Coverage Start Date Coverage End Date Medicare of [place] [facility] [address] [address] [place] [phone] [id number] Jose Manuel Floyd Self - patient is the insured 6
--- OUTSIDE RECORDS SUMMARY | 2024-10-31 18:25 | XMS_ITS | Encounter Summary ---
Author Name [facility] [place] Organization [facility] [place] [place] Address [address] [place] [id number] Care Team Providers Care Digital Media Producer Name Role Phone AZRA TORRES Primary Care Provider Unavailabl e Insurance Providers: All historical and current Section Date Range: From patient's date of to the date document was created. This section includes the names of all active insurance providers for the patient. Insurance Provider Type of Coverage Plan Name Start of Policy Coverage End of Policy Coverage Group Number Member ID Insurance Provider's Telephone Number Policy Patton's Name Patient's Relationship to Policy Patton MEDICARE (WNR) MEDICARE (M) PART A May 10, 2006 PART A [id number] Aníbal NORRIS HARFROY PATIENT MEDICARE (WNR) MEDICARE (M) PART B May 10, 2006 PART B [id number] Aníbal NORRIS ELIFROY PATIENT MEDICARE (WNR) MEDICARE (M) PART A May 10, 2006 PART A [id number] Aníbal NORRIS ELIFROY PATIENT MEDICARE (WNR) MEDICARE (M) PART B May 10, 2006 PART B [id number] Aníbal NORRIS PATIENT Selected Encounter This section includes the information on record at [place] for the Encounter. Date/Time Encounter Type Encounter Description Reason Provider Source Jan 19, 2024 10:00 AM ADMN [id number] VACC 1 DOSE PRIMARY CARE/MEDICINE ICD-10-CM Z00.00 Encntr for general adult medical exam w/o abnormal findings TARIQ TORRESBY Bernadette Woodrow Encounter Template Text not used by [place] Assessments - Encounter Diagnoses This section includes the primary and secondary diagnoses documented for the Encounter. Date/Time Primary/Secondary Diagnosis Diagnosis Name Provider Source Jan 19, 2024 11:36 AM PRIMARY Encntr for general adult medical exam w/o abnormal findings TARIQ TORRESERLINDA Fleming [facility] Jan 19, 2024 11:36 AM SECONDARY Anxiety disorder, unspecified ARZA TORRES [facility] Jan 19, 2024 11:36 AM SECONDARY Athscl heart disease of [place] coronary artery w/o ang pctrs TORRESAZRA [facility] Jan 19, 2024 11:36 AM SECONDARY Chronic kidney disease, unspecified AZRA TORRES [facility] Jan 19, 2024 11:36 AM SECONDARY Encounter for immunization TORRESAZRA R [facility] Jan 19, 2024 11:36 AM SECONDARY Essential (primary) hypertension AZRA TORRES [facility] Jan 19, 2024 11:36 AM SECONDARY Gastro-esophageal reflux disease without esophagitis TORRESAZRA [facility] Jan 19, 2024 11:36 AM SECONDARY Hyperlipidemia, unspecified AZRA TORRES [facility] Jan 19, 2024 11:36 AM SECONDARY Iron deficiency anemia, unspecified AZRA TORRES [facility] Jan 19, 2024 11:36 AM SECONDARY Malignant neoplasm of prostate AZRA TORRES [facility] Jan 19, 2024 11:36 AM SECONDARY Type 2 diabetes mellitus without complications AZRA TORRES [facility] Jan 19, 2024 11:36 AM SECONDARY Unspecified atrial fibrillation AZRA TORRES [facility] Jan 19, 2024 11:36 AM SECONDARY Unspecified sensorineural hearing loss AZRA TORRES [facility] Jan 19, 2024 11:36 AM SECONDARY Vitamin B12 deficiency anemia, unspecified AZRA TORRES [facility] Jan 19, 2024 11:36 AM SECONDARY Vitamin D deficiency, unspecified AZRA TORRES [facility] Vital Signs: All taken on the encounter date This section contains inpatient and outpatient Vital Signs collected on the date of the Encounter. Date/Time Temperature Pulse Blood Pressure Respiratory Rate SP02 Pain Height Weight Body Mass Index Source Jan 19, 2024 09:51 AM 98 70 96/60 18 99 3 182.6 24 [facility] Immunizations: All administered on the encounter date This section contains immunizations associated to the Encounter. Immunization Series Date Issued Reaction Comments COVID-19 (PFIZER), MRNA, LNP -S, PF, JOSESITO-SUCROSE, 30 MCG/0.3 ML (AGES 12+ YEARS) Jan 19, 2024 Social History: Smoking Status (Most current) and Tobacco Use (All prior to encounter date) This section includes the most current, and the historical, smoking and tobacco- related health factors from the [place] facility where the Encounter took place. Current Smoking Status This section includes the most current smoking, or tobacco-related health factor, from the [place] facility where the Encounter took place. Date/Time Current Smoking Status Comment Alexandro lao Jan 19, 2024 10:00 AM VA-TOBACCO QUIT 15 YRS OR MORE [facility] Tobacco Use History This section includes a history of the smoking, or tobacco-related health factors, that were collected on or before the date of the Encounter. The data comes from the [place] facility where the Encounter took place. Date/Time Smoking Status/Tobacco Use Comment [place] [facility] Jan 19, 2024 10:00 AM [place]-TOBACCO QUIT 15 YRS OR MORE [facility] Mar 12, 2018 11:59 AM VA-TOBACCO NEVER USED [facility] Mar 12, 2017 12:48 PM QUIT TOBACCO >7 YEARS AGO [facility] Mar 12, 2016 01:38 PM QUIT TOBACCO >7 YEARS AGO [facility] Feb 27, 2015 08:29 AM QUIT TOBACCO >7 YEARS AGO [facility] December 19, 2013 01:35 PM QUIT TOBACCO >7 YEARS AGO [facility] December 13, 2012 12:55 PM QUIT TOBACCO >7 YEARS AGO [facility] December 29, 2006 03:05 PM QUIT TOBACCO >7 YEARS AGO [facility] Mar 17, 2006 09:27 AM CURRENT NON-TOBACC O USER-HX OF USE [facility] Mar 17, 2006 09:27 AM TOBACCO TERMINATION STAGE [facility] Jun 12, 2005 01:08 PM CURRENT NON-TOBACC O USER-HX OF USE [facility] Jun 12, 2005 01:08 PM TOBACCO TERMINATION STAGE [facility] Sep 12, 2004 01:38 PM CURRENT NON-TOBACC O USER-HX OF USE [facility] Sep 12, 2004 01:38 PM TOBACCO TERMINATION STAGE [facility] Advance Directives: All historical and current Section Date Range: From patient's date of to the date document was created. This section includes ALL of a patient's completed or amended [place] Advance and Rescinded Directives. The entries below indicate that a directive exists for the patient, but an actual copy is not included with this document. The data comes from all [place] facilities. Date Advance Directives Provider Source Feb 02, 2023 ADVANCE DIRECTIVE ALISON NELSON [facility] Encounter Notes: All associated encounter notes This section contains the clinical notes associated to the Encounter. Date/Time Encounter Note(s) Provider Source Jan 19, 2024 09:55 AM NURSING NOTE: LOCAL TITLE: V15 PACT FACE TO FACE NOTE [facility] STANDARD TITLE: NURSING NOTE DATE OF NOTE: JAN 19, 2024@09:55 ENTRY DATE: JAN 19, 2024@09:55:16 AUTHOR: SHANNON LO EXP COSIGNER: URGENCY: STATUS: COMPLETED Provider Visit: Patient Identifiers : Full Name Date of Reason for visit: Established Follow-Up Mode of Arrival: Ambulatory Allergy Review: Patient has answered NKA Allergy list reviewed and remains current. Recent Vital Signs: Temperature: 98 F [36.7 C] (01/19/2024 09:51) Pulse: 70 (01/19/2024 09:51) Respiration: 18 (01/19/2024 09:51) B/P: 96/60 (01/19/2024 09:51) Pain: 3 (01/19/2024 09:51) Wt: 182.6 lb [82.83 kg] (01/19/2024 09:51) Ht: 73 in [185.4 cm] (03/12/2016 13:37) BMI: 24.1 POX: 99% (01/19/2024 09:51) Blood sugar glucometer readin Would you like to discuss any personal problem, family problem, alcohol use, drug use, or a mental or emotional illness? No My [facility] ([facility]), please select appointment type: [place] Video Connect (VVC) - Are you registered for [facility]? No- Are you interested in getting this done? No Contact provided Primary Care phone number and encouraged to call if any questions or concerns. Review that after hours nurse line [phone] and emergency room are available 02/03 for patient use. Contact verbalized good understanding. Suicide Screen: C-SSRS Screening [place]-Suicide Severity Rating Scale (C-SSRS Screener) 1. Over the past month, have you wished you were or wished you could go to sleep and not wake up? No 2. Over the past month, have you had any actual thoughts of killing yourself? No 3. Over the past month, have you been thinking about how you might do this? Response not required due to responses to other questions. 4. Over the past month, have you had these thoughts and had some intention of acting on them? Response not required due to responses to other questions. 5. Over the past month, have you started to work out or worked out the details of how to kill yourself? Response not required due to responses to other questions. 6. If yes, at any time in the past month did you intend to carry out this plan? Response not required due to responses to other questions. 7. In your lifetime, have you ever done anything, started to do anything, or prepared to do anything to end your life (for example, collected pills, obtained a gun, gave away valuables, went to the roof but didn't jump)? No 8. If YES, was this within the past 3 months? Response not required due to responses to other questions. Sexual Orientation: The patient thinks of their sexual orientation as: Straight or Heterosexual Alcohol Use Screen (AUDIT-C): Alcohol Screen: SCREEN FOR ALCOHOL (AUDIT-C) An alcohol screening test (AUDIT-C) was negative (score=0). 1. How often did you have a drink containing alcohol in the past year? Consider a drink to be a 12 ounce can or bottle of regular beer, 8 ounces of malt liquor, a 5 ounce glass of table wine, or a 1.5 ounce shot of liquor (like scotch, gin, or vodka). Never 2. How many drinks containing alcohol did you have on a typical day when you were drinking in the past year? Response not required due to responses to other questions. 3. How often did you have six or more drinks on one occasion in the past year? Response not required due to responses to other questions. Depression Screening: Perform PHQ-2 A PHQ-2 screen was performed. The score was 0 which is a negative screen for depression. Over the past two weeks, how often have you been bothered by the following problems? 1. Little interest or pleasure in doing things Not at all 2. Feeling down, depressed, or hopeless Not at all Homelessness/Food Insecurity Screen: In the past 2 months, have you been living in stable housing that you own, rent, or stay in as part of a household? Yes - Living in stable housing. Are you worried or concerned that in the next 2 months you may NOT have stable housing that you own, rent, or stay in as part of a household? No - Not worried about housing near future The reports the following: Within the past 12 months, you worried whether your food would run out before you got money to buy more. Never true Within the past 12 months, the food you bought just didn't last and you didn't have money to get more. Never true Frail/Elderly Screen: ADL Screen - Richards Index of [place] in Activities of Daily Living Bathing: (3 Points) Receives no assistance (gets in and out of tub by self, if tub is usual means of bathing) Dressing: (3 Points) Gets clothes and gets completely dressed without assistance. Toileting: (3 Points) Goes to toilet room , cleans self, and arranges clothes without assistance (may use object for support such as cane, walker, or wheelchair, and may manage own night bedpan or commode, emptying same next morning) Transferring: (3 Points) Moves in and out of bed and in and out of chair without assistance (may be using object for support, such as cane or walker) Continence: (3 Points) Controls urination and bowel movement completely by self Feeding: (3 Points) Feeds self without assistance Total Score: 18 Points 18 = High (patient independent) 6 = Low (patient very dependent) IADL Screen - [place] Instrumental Activities of Daily Living Scale Ability to use telephone: (1 point) Operates Telephone on own initiative; looks up and dials numbers. Shopping: (1 point) Takes care of all shopping needs independently. Food preparation: (1 point) Plans, prepares, and serves adequate meals independently. Housekeeping: (1 point) Maintains house alone with occasional assistance (heavy work). Laundry: (1 point) Does personal laundry completely. Mode of transportation: (1 point) Travels independently on public transportation or drives own car. Responsibility for own medications: (1 point) Is responsible for taking medications in correct dosages at correct times. Ability to handle finances: (1 point) Manages financial matters independently (budgets, writes checks, pays rent and bills, goes to bank); collects and keeps track of income. Total score: 8 points 8 = High function, independent 0 = Low function, dependent Falls Screen: No falls within the past 12 months. Tobacco Use Screening: The patient is a former tobacco user. The patient quit fifteen or more years ago. COVID-19 Immunization: Pfizer Monovalent (Comirnaty) Administered: COVID-19 (PFIZER), MRNA, LNP-S, PF, JOSESITO-SUCROSE, 30 MCG/0.3 ML (AGES 12+ YEARS) Date Administered: Jan 19, 2024 10:00 Cocoa Bean Cleaner: [employer] Lot: [id number] Exp Date: Apr 09, 2024 [facility]: [id number] Admin Route/Site: INTRAMUSCULAR/LEFT DELTOID Dosage: 0.3mL Vaccine Information Statement(s): COVID-19 MRNA VACCINE (12+ YRS) VACCINE VIS May 28, 2023 ([place]) Order By: Azra Torres Administered By: Shannon Lo Vaccine administered without complications. /francisco/ SHANNON LO LPN LICENSED PRACITCAL NURSE Signed: 01/19/2024 10:13 SHANNON LO [facility] Jan 19, 2024 09:51 AM PRIMARY CARE NOTE: LOCAL TITLE: PRIMARY CARE PROVIDER ESTABLISHED VISIT ST STANDARD TITLE: PRIMARY CARE NOTE DATE OF NOTE: JAN 19, 2024@09:51 ENTRY DATE: JAN 19, 2024@09:51:56 AUTHOR: AZRA TORRESIGNER: URGENCY: STATUS: COMPLETED REASON FOR VISIT/CHIEF COMPLAINT: Evaluation and management of chronic medical conditions/ My scheduled visit HPI: Patient is a 78 year old WHITE MALE who presents to the clinic for evaluation and management of chronic medical conditions. Patient denies any recent ED visits or hospitalizations. Patient goes by Wilder. [facility]. Patient brought in an updated non-VA medication list, this was updated this visit. Private providers: -Private PCP (patient unsure of name). -Private telecommunications consultant Dr. Rangel Slaughter at [facility] heart [facility] vascular. -Private renal specialist Dr. Bejarano. -Private optometry. #CAD: -Medical therapy includes: Antiplatelet: On Apixaban. Denies s/s of bleeding. BB: Yes. ISAC-I: None. Statin: Yes. -Denies chest pain, dizziness, lightheadedness or dyspnea. -Patient has hx of 6 vessel CABG. #Atrial fibrillation: -Medical therapy includes: -Rate controller: Carvedilol. -Anticoagulation: APIXABAN. Denies s/s of bleeding. -Had pacemaker put in 2012. #DM 2: -A1C: Obtains in the private sector. -Medications: Jardiance and Metformin. -Reports compliance to medication regimen. -Blood sugar readings at home: On average <130. -Eye exam: Obtains in the private sector. -Foot exam: See reminders. -Micral: Obtains in the private sector. -Statin: Yes. -ACEI: On ARB. -Denies recent hypo/hyperglycemia episodes. #HTN: -Medication: Losartan. -Reports compliance to medication regimen. -Reports having blood pressure machine at home. -Blood pressure readings at home: <130/80. -Denies CP, SOB, heart palpitations, headaches, blurred vision, dizziness/lightheadedness. #HLD: -Medication: Atorvastatin and ICOSAPENT ETHYL -Reports compliance with medication regimen. -Denies any new onset of myalgias. #CKD: -Medication: FINERENONE. -Patient reports medication compliance. #GERD: -Medication: Pantoprazole. -Reports compliance with medication regimen. -Denies concerns today. #Prostate Cancer: -Patient had prostatectomy November 2004. -Patient denies concerns today. #Anxiety: -Medication: Lorazepam. -Denies SI/HI. -Stable per patient. #Vitamin D deficiency: -Reports compliance with supplementation. #B12 Deficiency: -Reports compliance with supplementation. #SAAD: -Reports compliance with supplementation. #[place]OT: -Reports difficultly with hearing. -Denies dizziness or fluid in the ear. SOURCE(S) OF HISTORY: Patient PAST MEDICAL HISTORY: 1) Coronary atherosclerosis (SNOMED CT 764124170) comment: 6 vessel CABG 2) Type 2 diabetes mellitus (SNOMED CT 42487623) 3) Benign essential hypertension (SNOMED CT 9291949) 4) Hyperlipidemia 5) Prostate cancer comment: prostatectomy November 2004 6) Atrial fibrillation comment: converted and is on multaq comment: had pacemaker put in 2012 7) Personal History of Venous Thrombosis and Embolism 8) Chronic kidney disease 9) Gastroesophageal reflux disease 10) Anxiety 11) Vitamin D deficiency 12) Vitamin B12 level below reference range 13) Iron deficiency anemia 14) Hypomagnesemia 15) Exposure to potentially hazardous substance SOCIAL HISTORY: Tobacco: Former smoker. Quit smoking approx. in 2003. Smoked for 20 years 1/2 PPD. Alcohol: Denies. Illicit: Denies. -Patient lives alone. Patients lives in [place]. Patient uses a cane PRN and has a life alert. ALLERGIES: Patient has answered NKA ALLERGY REVIEW: Allergy list reviewed and remains current. MEDICATIONS: Active and Recently Outpatient Medications (excluding Supplies): Active Non-VA Medications Status 1) Non-VA APIXABAN 5MG TAB 5MG BY MOUTH TWICE A DAY ACTIVE 2) Non-VA ATORVASTATIN CALCIUM 80MG TAB 40MG BY MOUTH ACTIVE EVERY EVENING 3) Non-VA CARVEDILOL 25MG TAB 25MG BY MOUTH TWICE A DAY ACTIVE 4) Non-VA CHOLECALCIF 25MCG (D3-1,000UNIT) TAB 25MCG BY ACTIVE MOUTH ONCE A DAY 5) Non-VA CYANOCOBALAMIN 1000MCG TAB 1000MCG BY MOUTH ACTIVE ONCE A DAY 6) Non-VA EMPAGLIFLOZIN TAB,ORAL 10 MG BY MOUTH ONCE A ACTIVE DAY 7) Non-VA FERROUS SULFATE 325MG TAB 325MG BY MOUTH ONCE ACTIVE A DAY 8) Non-VA FINERENONE 10MG TAB 20MG BY MOUTH ONCE A DAY ACTIVE 9) Non-VA ICOSAPENT ETHYL 1GM CAP 2GM BY MOUTH TWICE A ACTIVE DAY WITH MEALS 10) Non-VA LORAZEPAM 1MG TAB 1MG BY MOUTH AT BEDTIME ACTIVE NEEDED 11) Non-VA LOSARTAN 100MG TAB 50MG BY MOUTH TWICE A DAY ACTIVE 12) Non-VA MAGNESIUM OXIDE 400MG TAB 400MG BY MOUTH TWICE ACTIVE A DAY 13) Non-VA METFORMIN HCL 750MG 24HR SA TAB 750MG BY MOUTH ACTIVE ONCE A DAY 14) Non-VA PANTOPRAZOLE NA 40MG EC TAB 40MG BY MOUTH ACTIVE EVERY MORNING REVIEW OF SYSTEMS: Constitutional: Denies weight loss, fever, chills. Ears, Nose, Mouth, Throat: Denies nasal drainage or sore throat. Denies dizziness. Endocrinology: Denies heat or cold intolerance, polydipsia, polyuria, or polyphagia. Cardiovascular: Denies chest pain, palpitations, or dizziness. Respiratory: Denies cough or shortness of breath. ABD/GI: Denies abdominal pain, nausea, vomiting, constipation, diarrhea or incontinence. Musculoskeletal/Extremities: Denies edema. Denies pain. /CAMERA MECHANIC: Denies frequency, hesitancy, urgency, or hematuria. Psychology: Denies insomnia or SI/HI. Denies anxiety or depression. Neurology: Denies ROBLES, tremors, neuropathy, or seizures. Skin: Denies rashes, skin lesions. PHYSICAL EXAMINATION: VITALS (most recent, as listed in the electronic record): Temperature: 98 F [36.7 C] (01/19/2024 09:51) BP: 96/60 (01/19/2024 09:51) Pulse: 70 (01/19/2024 09:51) Resp: 18 (01/19/2024 09:51) PulsOx: 99% (01/19/2024 09:51) Pain: 3 (01/19/2024 09:51) Weight: Measurement DT WEIGHT LB(KG)[BMI] 01/19/2024 09:51 182.6(82.83)[24] HEENT: EOMI, PERRLA, Moist mucous membranes. No Scleral icterus or cervical lymphadenopathy. Lungs: Clear to auscultation bilaterally. No accessory muscle use. Cardiovascular: Regular rate and rhythm. No murmur. No JVD. Abdomen: Soft, nontender and non-distended. No palpable masses. Positive bowel sounds in all four quadrants. Extremities: No edema. Nontender. Full ROM to all joints. Gait steady. : Deferred. Neurologic: No focal neurological deficits. Psychiatric: Appropriate mood and affect. Skin: Skin warm, dry and intact. No lesions or rashes noted. Health maintenance: -Covid-19 today. Immunization Series Date Facility Reaction Info COVID-19 (Vyu), MRNA, LNP-S, * 1 01/28/2022 [facility] COVID-19 (PFIZER), MRNA, LNP-S, * 5 05/22/2022 [facility] COVID-19 (Vyu), MRNA, LNP-S, * 3 07/27/2021 [facility]* <C> COVID-19 (PFIZER), MRNA, LNP-S, * 2 10/20/2020 [facility]* <C> COVID-19 (PFIZER), MRNA, LNP-S, * 1 09/29/2020 [facility]* <C> INFLUENZA, UNSPECIFIED FORMULATI* No Site OUTSIDE PNEUMOVAX (HISTORICAL) 05/13/2005 [place] [facility] 02/15/2007 [place] [facility] 03/23/2009 [facility]* ZOSTER RECOMBINANT 2 07/12/2018 [facility]* ZOSTER RECOMBINANT 1 03/12/2018 [facility]* Colonoscopy: Aged out. PSA: Aged out. LDCT: Does not qualify. AAA screening: Aged out. Eye exam: Evaluation and management per private optometry. Obtains labs in the private sector. ASSESSMENT/PLAN: Annual visit: -Routine labs reviewed. -Preventative health screenings reviewed. -Recommend regular eye exams. -Discussed Fall Safety. -Continue wearing mask in public and wash hands frequently. -Immunizations reviewed. -Evaluation and management per private PCP. CAD: -Continue medication regimen. -Reviewed lifestyle modifications. -Evaluation and management per private cardiology. Afib: -Continue medication regimen. -Lifestyle modifications reviewed. -Instructed to report to ER with any unresolved cp, SOB, palpitations, dizziness or lightheadedness. -Evaluation and management per private cardiology. DM 2: -Continue to check BG as recommended. -Continue medication regimen. -Reviewed lifestyle modifications. -Educated to check feet daily and to have an eye exam yearly. -Evaluation and management per private PCP. HTN: -Continue prescribed regimen. -Instructed patient to check BP daily 1-2 hours after medications. -Discussed importance of regular exercise and/or physical activity in the control of blood pressure. -Discussed low sodium diet w/ <2 g daily. -Discussed avoidance of caffeine. -Discussed appropriate sleep hygiene and quality with >6 hours of uninterrupted sleep. -Self-monitor BP at home and report readings consistently above goal of <130/80. -Evaluation and management per private PCP. HLD: -Continue medication regimen. -Reviewed lifestyle modifications including participating in a low fat/low cholesterol diet. -Dietitian contact information given. -Evaluation and management per private PCP. CKD: -Recommended to stay hydrated and to avoid NSAIDs. -Reviewed lifestyle modifications. -Adjunct Instructor Of Women'S Studies contact information given. -Evaluation and management per private renal specialist. GERD: -Continue medication regimen. -Reviewed lifestyle modifications. -Educated to avoid triggering foods such as alcohol, caffeinated drinks, chocolate, coffee, spicy foods, citrus foods, tomatoes etc. -Evaluation and management per private PCP. Prostate Cancer: -Patient denies concerns today. -Evaluation and management per private PCP. Anxiety: -Continue medication regimen. -Reviewed lifestyle modifications. -[place] crisis line and whole health contact information given. -Evaluation and management per private PCP. Vitamin D Deficiency: -Continue medication regimen. -Reviewed foods high in vitamin D including: Milk, orange juice, yogurt, salmon, canned tuna fish, cod liver oil and cereals with vitamin D added. -Evaluation and management per private PCP. B12 Deficiency: -Continue supplementation. -Evaluation and management per private PCP. SAAD: -Continue supplementation. -Evaluation and management per private PCP. [place]QUOT: -Audiology contact information given. -Educated to avoid loud noises, avoid cotton swabs and to keep ears dry. RETURN TO CLINIC: 1 year or earlier as needed. SUMMARY STATEMENT: Plan of care has been discussed with including expected therapeutic benefits and potential side effects of prescribed medication and treatments. [facility] verbalizes understanding and is in agreement with the plan of care. Patient was instructed to keep all scheduled appointments and contact mechanical product engineer for any additional problems. Medication Reconciliation Opt STL: I have reviewed the patient's medication list (including active outpatient [facility] ([facility]) and dispensed from another [facility] or [facility] facility (remote) as well as inpatient orders (local pending and active), local clinic medications, locally documented non-VA medications, and local prescriptions that have or been discontinued in the past 90 days.) with the patient and/or his/her care-plate filler. Handwritten corrections, additions and/or deletions were made to the list, as appropriate. Corrected Outpatient Medication List was provided to the patient/caregiver. HIV Screening (Routine): Patient has been offered HIV testing and has declined. I have explained that HIV testing is recommended for all adults, even if all risk factors are absent. Frail/Elderly Screen: ADL Screen - Richards Index of [place] in Activities of Daily Living Bathing: (3 Points) Receives no assistance (gets in and out of tub by self, if tub is usual means of bathing) Dressing: (3 Points) Gets clothes and gets completely dressed without assistance. Toileting: (3 Points) Goes to toilet room , cleans self, and arranges clothes without assistance (may use object for support such as cane, walker, or wheelchair, and may manage own night bedpan or commode, emptying same next morning) Transferring: (3 Points) Moves in and out of bed and in and out of chair without assistance (may be using object for support, such as cane or walker) Continence: (3 Points) Controls urination and bowel movement completely by self Feeding: (3 Points) Feeds self without assistance Total Score: 18 Points 18 = High (patient independent) 6 = Low (patient very dependent) IADL Screen - [place] Instrumental Activities of Daily Living Scale Ability to use telephone: (1 point) Operates Telephone on own initiative; looks up and dials numbers. Shopping: (1 point) Takes care of all shopping needs independently. Food preparation: (1 point) Plans, prepares, and serves adequate meals independently. Housekeeping: (1 point) Maintains house alone with occasional assistance (heavy work). Laundry: (1 point) Does personal laundry completely. Mode of transportation: (1 point) Travels independently on public transportation or drives own car. Responsibility for own medications: (1 point) Is responsible for taking medications in correct dosages at correct times. Ability to handle finances: (1 point) Manages financial matters independently (budgets, writes checks, pays rent and bills, goes to bank); collects and keeps track of income. Total score: 8 points 8 = High function, independent 0 = Low function, dependent Falls Screen: No falls within the past 12 months. Incontinence Screen: No incontinence. PAVE Foot Check: A complete foot check was completed at this encounter. VISUAL INSPECTION: Includes inspection for skin breaks, deformity, erythema, trauma, pallor on elevation, dependent rubor, nail deformities, extensive callus and pitting edema. Visual exam results: Normal PEDAL PULSES: Includes palpation of dorsalis and posterior tibial pulses and signs/symptoms of vascular compromise like pain, pallor, parasthesia or paralysis. Present (even if diminished) SENSORY CHECK: Includes 10 gram Monofilament ([employer] [place]) test of sensation. Intact (Greater than or equal to 80% of sites checked) Abnormal (Less than 80% of sites checked): Abnormal (decreased or absent sensation to monofilament): HIGH-RISK: HIGH RISK INFORMATION PROVIDED: 1. Advised patient that extra depth footwear with soft molded inserts and braces may be required. 2. Advised patient not to walk barefoot. 3. Explained the importance of daily foot checks. 4. Stressed the importance of daily foot hygiene, including bathing, complete drying and thorough inspection for changes. The patient verbalized understanding and was offered a detailed handout on diabetic foot care. Patient declined referral to Podiatry. Will follow up with Primary Care as scheduled. /francisco/ Azra Torres DNP, DIRECTOR OF SAFETY AND SECURITY, MOBILE GAME ENGINEER-C Primary Care Nurse Practitioner Signed: 01/19/2024 11:36 AZRA TORRES [facility]
--- OUTSIDE RECORDS SUMMARY | 2024-10-31 18:25 | XMS_ITS | Clinical Summary ---
Author Organization [facility] Facility Address [address] [address] Care Team Providers Care Negotiator Sales Name Role Phone Gege Jackson MD Primary Care Provider [phone] Medications Cholecalciferol 50 MCG (1999) capsule Take 1 capsule by mouth 1 (one) time each day 1 Active FeroSul 325 (65 Fe) MG tablet 1 Active glimepiride (AMARYL) 2 MG tablet 1 Active LORazepam (ATIVAN) 1 MG tablet lorazepam 1 mg tablet TAKE ONE TABLET BY MOUTH AT BEDTIME NEEDED NO ALCOHOL, DRIVING OR WITH OTHER SEDATING MEDICATIONS 5 Active losartan (COZAAR) 50 MG tablet losartan 50 mg tablet 9 Active losartan-hydroC HLOROthiazide (HYZAAR) 100-25 MG per tablet losartan 100 mg-hydrochloroth iazide 25 mg tablet Active sotalol (BETAPACE) 120 MG tablet 1 Active carvedilol (COREG) 25 MG tablet Take 1 tablet (25 mg total) by mouth twice a day 180 tablet 1 2 Active Encounters Date Type Department Care Team Description 08/17/2024 Office Communication [facility], [address] [address] Ivan Bejaarno DO from Last 3 Months Social History Tobacco Use Types Packs/Day Years Used Date Smoking Tobacco: Never Assessed Sex and Gender Information Value Date Recorded Sex Assigned at Not on file Legal Sex Male 2:53 PM EDT Gender Identity Not on file Sexual Orientation Not on file Last Filed Vital Signs Vital Sign Reading Time Taken Comments Blood Pressure 96/40 11/10/2023 1:20 PM CDT Pulse 76 11/10/2023 1:20 PM CDT Temperature 36.1 C (97 F) 11/10/2023 1:20 PM CDT Respiratory Rate 18 11/10/2023 1:20 PM CDT Oxygen Saturation 99% 11/10/2023 1:20 PM CDT Inhaled Oxygen Concentration - - Weight 83.5 kg (184 lb) 11/10/2023 1:20 PM CDT Height 182.9 cm (6') 11/04/2022 2:04 PM CDT Body Mass Index 24.95 11/04/2022 2:04 PM CDT Plan of Treatment Health Maintenance Due Date Last Done Comments Diabetes: Ophthalmology Exam 01/03/2021 Diabetes: Pedal Pulse Checked 01/03/2021 Diabetes: Sensory Foot Exam 01/03/2021 Diabetes: Visual Foot Exam 01/03/2021 Diabetes: Hemoglobin A1C 11/25/2024 08/27/2024, 10/0 12/2021 Pneumococcal Vaccine: 65+ Years Completed 02/12/2022, 09/16/2017, 05/13/2005 Influenza Vaccine Completed 07/20/2024, , 05/10/2022, Additional history exists Hepatitis B Vaccine Aged Out No longe r eligible based on patient's age to complete this topic Insurance MEDICARE [facility] Care Teams Negotiator Sales Relationship Specialty Start Date End Date Gege Jackson MD [address] [place] [address], [address] [place] [address] PCP - General Internal Medicine 03/12/21
--- OUTSIDE RECORDS SUMMARY | 2024-10-31 18:25 | XMS_ITS | Encounter Summary ---
Author Organization [facility] Address [address] [place] [address] [place] [address] Care Team Providers Care Dobby Loom Weaver Name Role Phone Gege Jackson MD Primary Care Provider Encounter Details Date Type Department Care Team (Late Contact Info) Description 07/19/2020 Lab Requisition [facility] [address] [place] [address] Jose Manuel Perea MD [address] [place] [address] Social History Tobacco Use Types Packs/Day Years Used Date Smoking Tobacco: Never Assessed Sex and Gender Information Value Date Recorded Sex Assigned at Not on file Gender Identity Not on file Sexual Orientation Not on file documented as of this encounter Plan of Treatment Upcoming Encounters Date Type Department Care Team (Late Contact Info) Description 11/03/2024 12:00 PM CDT Office Visit [facility] - General Surgery [address] [place] [address] documented as of this encounter Procedures Procedure Name Priority Date/Time Associated Diagnosis Comments DERMATOPATHOLOGY Routine 07/18/2020 12:0 0 AM SKIVING MACHINE OPERATOR documented in this encounter Results * DERMATOPATHOLOGY (07/18/2020 12:00 AM SKIVING MACHINE OPERATOR) Case Report Dermatopathology Report Case: [id number] Authorizing Provider: Jose Manuel Perea MD Collected: 07/18/2020 12:00 AM Ordering Location: [facility] Received: 07/19/2020 11:28 AM Pathologist: Osiel Rangel MD Specimen: Skin, dorsal right wrist 0 4:03 PM [facility] DERMATOPATHOLOGY [facility]ORATORY Final Diagnosis Specimen A. 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 Check margins. 0 4:03 PM [facility] DERMATOPATHOLOGY [facility]ORATORY Gross Description Specimen A: Received is one formalin filled container labeled with the patient's name and designated dorsal right wrist. The specimen consists of a curettage and desiccation biopsy measuring [id number]. The margin is inked green. Jar 0. 0 4:03 PM SKIVING MACHINE OPERATOR DERMATOPATHOLOGY LABORATORY Microscopic Description Specimen A. SKIN, dorsal right wrist: Sections reveal parakeratosis, acanthosis and keratinocyte dysmaturation which is most prominent in the lower epidermis. Focal nests are present in the dermis. This lesion is not present at the sampled margin of the specimen. 0 4:03 PM [facility] DERMATOPATHOLOGY LABORATORY Disclaimer An external and internal positive and negative controls are appropriate for the histochemical, immunohistochemical and immunofluorescence stain(s) in this case (if any), except where stated explicitly. The performance characteristics of the stain(s) cited in this report were developed and its performance characteristic determined by the Dermatopathology Laboratory at [facility], directed by Dr. Odessa Rangel. These tests need not be, and therefore are not, approved by the [place] Food and Drug Administration. The tests are used for clinical purposes. Billing Codes Specimen Charges Stain Charges 03057 1 0 4:03 PM SKIVING MACHINE OPERATOR DERMATOPATHOLOGY LABORATORY Embedded Images 0 4:03 PM [facility] DERMATOPATHOLOGY LABORATORY Pathology/Cytolog y TISSUE SPECIMEN FROM SKIN / Unknown 07/18/2020 07/19/2020 11:28 AM SKIVING MACHINE OPERATOR Jose Manuel Perea MD LAB - PATHOLOGY/CYTO LOGY ORDERABLES DERMATOPATHOLOGY LABORATORY [facility] - Department of Dermatology [address] [phone] documented in this encounter Visit Diagnoses Not on filedocumented in this encounter Additional Health Concerns Infection Onset Date Last Indicated Resolved Time COVID-19 Under Investigation 08/26/2024 08/26/2024 08/26/2024 11:01 PM SKIVING MACHINE OPERATOR documented as of this encounter Care Teams Dobby Loom Weaver Relationship Specialty Start Date End Date Gege Jackson MD [address] [address] PCP - General Internal Medicine 08/26/24 documented as of this encounter
--- OUTSIDE RECORDS SUMMARY | 2024-10-31 19:35 | XMS_ITS | Continuity of Care Document ---
Author Organization [facility] Address [address] [place] [address] Phone Care Team Providers Care Profiler Name Role Phone Judie Hoang Unavailable Unavailable Procedures Procedure Date Office/outpatient Visit, Est Dilated Retinal Exam W Interpretation Ok Eye Exam & Treatment Dilated Retinal Exam W Interpretation Ok Office/outpatient Visit, Est Dilated Retinal Exam W Interpretation Ok Eye Exam & Treatment Advance Directives Directive Yes / No Effective Date File Name No Information Encounters Encounter Description Practice Location Reason(s) For Visit Diagnoses Date Provider Providers Copied on Encounter Office/outpat ient Visit, [facility], [address] [place] [address] [address], [place], [place], [id number], [place] tel:[phone] [facility] No Information Oct-2 3-201 0 Natalya Dimas. [address] , [address], [place], [place], [facility] [place], [place]. tel:[phone] [facility], [address], [place], [place], [id number], [place] tel:[phone] [facility] No Information Oct-3 1-200 9 Natalya Dimas. [address] , [address], [place], [address], [place]. tel:[phone] Office/outpat ient Visit, [facility], [address] [place] [address] [address], [place], [place], [id number], [place] tel:[phone] [facility] No Information Oct-2 8-200 8 Natalya Judie. [address] , [address], [place], [address], . tel:[phone] [facility], [address], [place], [place], [id number], [place] tel:[phone] [facility] No Information Oct-2 7-200 7 Natalya Judie. [address] , [address], [place], [address], [place]. tel:[phone] Family History Family Member Type Diagnosis Age At Onset No Information Payers Payer name Insurance type Covered republican ID Authoriza tion(s) [place] [id number] [place] [id number] Social History Type Description Quantity Date Captured [...]
--- OUTSIDE RECORDS SUMMARY | 2024-10-31 19:35 | XMS_ITS | Clinical Summary ---
Author Organization [facility] Address [address] [place] [address] Care Team Providers Care School Bus Technician Name Role Phone Gege Jackson MD Primary Care Provider Source Comments [facility],non-owned Affiliates and Associated Physician Practices is amultiple site organization consisting of ambulatory clinics and hospital sitesin [place], [place], [place] and [place]. This disclosure is being madepursuant to the Care Everywhere program and may not contain all information available regarding this patient. Last updated 18.[facility] Medications * Be aware that medications may [...] 09/26/2024 Travel 08/28/2024 Travel 08/26/2024 1:13 AM WATER SOFTENER SERVICE SUPERVISOR - 09/05/2024 2:50 PM WATER SOFTENER SERVICE SUPERVISOR Hospital Encounter [facility] 5S ACUTE [address] [place] [address] Clovis Wilkinson MD Naughton, Daniel J, MD Trauma Discharge Disposition: Rehab:Inpatient 08/26/2024 12:46 AM WATER SOFTENER SERVICE SUPERVISOR - 08/26/2024 12:59 AM WATER SOFTENER SERVICE SUPERVISOR Emergency ER at [facility] [address] Discharge Disposition: Home or Self Care from [...] and heating? Not hard at all 08/28/2024 [facility] Occupat ional Health - Occupational Stress [...] any time in the past 12 m [facility], were you homeless or living in a correction (including now)? No 08/28/2024 Sex and Gender Information Value Date Recorded Sex Assigned at Not on file Gender Identity Not on file Sexual Orientation Not on file Last Filed Vital Signs Vital Sign Reading Time Taken Comments Blood Pressure 107/58 09/05/2024 11:14 AM WATER SOFTENER SERVICE SUPERVISOR Pulse 85 09/05/2024 11:14 AM WATER SOFTENER SERVICE SUPERVISOR Temperature 37 C (98.6 F) 09/05/2024 11:14 AM WATER SOFTENER SERVICE SUPERVISOR Respiratory Rate 20 09/05/2024 11:14 AM WATER SOFTENER SERVICE SUPERVISOR Oxygen Saturation 90% 09/05/2024 11:14 AM WATER SOFTENER SERVICE SUPERVISOR Inhaled Oxygen Concentration - - Weight 78.5 kg (173 lb) 08/27/2024 4:00 AM WATER SOFTENER SERVICE SUPERVISOR Height 182.9 cm (6') 08/26/2024 1:13 AM WATER SOFTENER SERVICE SUPERVISOR Body Mass Index 23.46 08/26/2024 1:13 AM WATER SOFTENER SERVICE SUPERVISOR Plan of Treatment Upcoming Encounters Date Type Department Care Team (Late st Contact Info) Description 11/03/2024 12:00 PM CDT Office Visit [facility] - General Surgery [address] [place] [address], [place] [address] Health Maintenance Due Date Last Done Comments [...] CHEST 1VW PORTABLE Routine 09/02/2024 3:00 PM WATER SOFTENER SERVICE SUPERVISOR Hemopneumothorax on left XR CHEST 1VW PORTABLE Routine 09/02/2024 4:32 AM WATER SOFTENER SERVICE SUPERVISOR Hemopneumothorax on left Contusion of left lung, initial encounter XR CHEST 1VW PORTABLE Routine 09/01/2024 5:16 AM WATER SOFTENER SERVICE SUPERVISOR Hemopneumothorax on left RENAL FUNCTION PANEL AM Draw 09/01/2024 3:06 AM WATER SOFTENER SERVICE SUPERVISOR MAGNESIUM BLOOD STAT 08/31/2024 6:47 AM WATER SOFTENER SERVICE SUPERVISOR RENAL FUNCTION PANEL STAT 08/31/2024 6:47 AM WATER SOFTENER SERVICE SUPERVISOR CBC W/O DIFFERENTIAL STAT 08/31/2024 6:47 AM WATER SOFTENER SERVICE SUPERVISOR XR CHEST 1VW PORTABLE STAT 08/31/2024 5:05 AM WATER SOFTENER SERVICE SUPERVISOR Hemopneumothorax on left XR CHEST 1VW PORTABLE Routine 08/30/2024 4:42 AM WATER SOFTENER SERVICE SUPERVISOR Hemopneumothorax on left GLUCOSE - POINT OF CARE Routine 08/29/2024 4:25 PM WATER SOFTENER SERVICE SUPERVISOR XR CHEST 1VW PORTABLE Routine 08/29/2024 2:45 PM WATER SOFTENER SERVICE SUPERVISOR Hemopneumothorax on left GLUCOSE - POINT OF CARE Routine 08/29/2024 12:03 PM WATER SOFTENER SERVICE SUPERVISOR GLUCOSE - POINT OF CARE Routine 08/29/2024 7:58 AM WATER SOFTENER SERVICE SUPERVISOR XR CHEST 1VW PORTABLE Routine 08/29/2024 4:20 AM WATER SOFTENER SERVICE SUPERVISOR Hemopneumothorax on left GLUCOSE - POINT OF CARE Routine 08/28/2024 9:51 PM WATER SOFTENER SERVICE SUPERVISOR GLUCOSE - POINT OF CARE Routine 08/28/2024 6:59 PM WATER SOFTENER SERVICE SUPERVISOR GLUCOSE - POINT OF CARE Routine 08/28/2024 11:55 AM WATER SOFTENER SERVICE SUPERVISOR GLUCOSE - POINT OF CARE Routine 08/28/2024 7:41 AM WATER SOFTENER SERVICE SUPERVISOR GLUCOSE - POINT OF CARE Routine 08/28/2024 6:12 AM WATER SOFTENER SERVICE SUPERVISOR XR CHEST 1VW PORTABLE Routine 08/28/2024 6:05 AM WATER SOFTENER SERVICE SUPERVISOR Hemopneumothorax on left COMPREHENSIVE METABOLIC PANEL AM Draw 08/28/2024 4:57 AM WATER SOFTENER SERVICE SUPERVISOR GLUCOSE - POINT OF CARE Routine 08/27/2024 9:22 PM WATER SOFTENER SERVICE SUPERVISOR GLUCOSE - POINT OF CARE Routine 08/27/2024 4:10 PM WATER SOFTENER SERVICE SUPERVISOR GLUCOSE - POINT OF CARE Routine 08/27/2024 10:46 AM WATER SOFTENER SERVICE SUPERVISOR BLOOD TYPE VERIFICATION STAT 08/27/2024 7:58 AM WATER SOFTENER SERVICE SUPERVISOR GLUCOSE - POINT OF CARE Routine 08/27/2024 6:31 AM WATER SOFTENER SERVICE SUPERVISOR XR CHEST 1VW PORTABLE Routine 08/27/2024 5:07 AM WATER SOFTENER SERVICE SUPERVISOR Hemopneumothorax on left HEMOGLOBIN A1C KELSEA 08/27/2024 2:02 AM WATER SOFTENER SERVICE SUPERVISOR CALCIUM IONIZED WHOLE BLOOD STAT 08/27/2024 2:02 AM WATER SOFTENER SERVICE SUPERVISOR PHOSPHORUS BLOOD STAT 08/27/2024 2:02 AM WATER SOFTENER SERVICE SUPERVISOR MAGNESIUM BLOOD STAT 08/27/2024 2:02 AM WATER SOFTENER SERVICE SUPERVISOR BASIC METABOLIC PANEL (CALCIUM TOTAL) STAT 08/27/2024 2:02 AM WATER SOFTENER SERVICE SUPERVISOR CBC W AUTO DIFFERENTIAL STAT 08/27/2024 2:02 AM WATER SOFTENER SERVICE SUPERVISOR SARS-COV-2 (COVID-19) RAPID STAT 08/26/2024 10:21 PM WATER SOFTENER SERVICE SUPERVISOR PHOSPHORUS BLOOD STAT 08/26/2024 3:39 PM WATER SOFTENER SERVICE SUPERVISOR MAGNESIUM BLOOD STAT 08/26/2024 3:39 PM WATER SOFTENER SERVICE SUPERVISOR CBC W AUTO DIFFERENTIAL STAT 08/26/2024 3:39 PM WATER SOFTENER SERVICE SUPERVISOR BASIC METABOLIC PANEL (CALCIUM TOTAL) STAT 08/26/2024 3:39 PM WATER SOFTENER SERVICE SUPERVISOR URINE DRUG SCREEN IMMUNOASSAY STAT 08/26/2024 3:39 PM WATER SOFTENER SERVICE SUPERVISOR TEG 6S PLATELET MAPPING STAT 08/26/2024 11:55 AM WATER SOFTENER SERVICE SUPERVISOR TEG 6 GLOBAL HEMOSTASIS W/ LYSIS STAT 08/26/2024 11:55 AM WATER SOFTENER SERVICE SUPERVISOR XR CHEST 1VW PORTABLE STAT 08/26/2024 8:56 AM WATER SOFTENER SERVICE SUPERVISOR Fall, initial encounter XR CHEST 1VW PORTABLE STAT 08/26/2024 3:44 AM WATER SOFTENER SERVICE SUPERVISOR Fall, initial encounter XR PELVIS 1 OR 2VW Routine 08/26/2024 1: 57 AM WATER SOFTENER SERVICE SUPERVISOR Fall, initial encounter XR CHEST 1VW PORTABLE STAT 08/26/2024 1:56 AM WATER SOFTENER SERVICE SUPERVISOR Fall, initial encounter CT LUMBAR SPINE WO CONTRAST STAT 08/26/2024 1:51 AM WATER SOFTENER SERVICE SUPERVISOR Fall, initial encounter CT THORACIC SPINE WO CONTRAST STAT 08/26/2024 1:51 AM WATER SOFTENER SERVICE SUPERVISOR Fall, initial encounter CT CHEST ABDOMEN PELVIS W CONT STAT 08/26/2024 1:51 AM WATER SOFTENER SERVICE SUPERVISOR Fall, initial encounter CT CERVICAL SPINE WO CONTRAST STAT 08/26/2024 1:51 AM WATER SOFTENER SERVICE SUPERVISOR Fall, initial encounter CT HEAD WO CONTRAST STAT 08/26/2024 1 :51 AM WATER SOFTENER SERVICE SUPERVISOR Fall, initial encounter TYPE + SCREEN PANEL STAT 08/26/2024 1 :30 AM WATER SOFTENER SERVICE SUPERVISOR PT-INR SLH STAT 08/26/2024 1:30 AM WATER SOFTENER SERVICE SUPERVISOR LIPASE BLOOD STAT 08/26/2024 1:30 AM WATER SOFTENER SERVICE SUPERVISOR CBC W AUTO DIFFERENTIAL STAT 08/26/2024 1:30 AM WATER SOFTENER SERVICE SUPERVISOR BASIC METABOLIC PANEL (CALCIUM TOTAL) STAT 08/26/2024 1:30 AM WATER SOFTENER SERVICE SUPERVISOR ALCOHOL ETHYL BLOOD STAT 08/26/2024 1 :30 AM WATER SOFTENER SERVICE SUPERVISOR OXYGEN WITHOUT TITRATION (ADULT) Routine 08/26/2024 1:23 AM WATER SOFTENER SERVICE SUPERVISOR from Last 3 Months Results * XR Chest 1Vw Portable (09/02/2024 3:00 PM WATER SOFTENER SERVICE SUPERVISOR) Only the most recent of12 resultswithin the time period is included. Anatomical Region Laterality Modality Chest Digital Radiogra phy 09/03/2024 10:0 6 AM WATER SOFTENER SERVICE SUPERVISOR Narrative 09/04/2024 6:36 AM WATER SOFTENER SERVICE SUPERVISOR PROCEDURE: XR CHEST 1VW PORTABLE, DATE/TIME OF EXAM: 09/02/2024 3:00 PM, LOCATION [facility] INDICATION: J94.2: Hemopneumothorax on left ADDITIONAL [...] stable. Report dictated by Jaya Hernandez MD, (president mortgage company). Bindu Ardon MD have personally reviewed and interpreted this examination/study. > Interpreting Provider: Bindu Wright MD on 09/04/2024 6:36 AM Procedure Note Bindu Wright MD - 09/04/2024 PROCEDURE: XR CHEST 1VW PORTABLE, DATE/TIME OF EXAM: 09/02/2024 3:00PM, LOCATION [facility] INDICATION: J94.2: Hemopneumothorax on left ADDITIONAL [...] isstable. Report dictated by Jaya Hernandez MD, (president mortgage company). Bindu Ardon MD have personally reviewed and interpreted this examination/study. > Interpreting Provider: Bindu Wright MD on 09/04/2024 6:36 AM Morena Damico PREVENTIVE MEDICINE SPECIALIST-RECEIVING ASSOCIATE DIAGNOSTIC IMAGIN G ORDERABLES * (ABNORMAL) RENAL FUNCTION PANEL (09/01/2024 3:06 AM WATER SOFTENER SERVICE SUPERVISOR) Only the most recent of2 resultswithin the time period is included. BUN 20 7 - 26 mg/dL 09/01/2024 4:03 AM WATER SOFTENER SERVICE SUPERVISOR [facility] Creatinine 0.66(L) 0.71 - 1.16 mg/dL 09/01/2024 4:03 AM [facility] Sodium 135(L) 136 - 145 mmol/L 09/01/2024 4:03 AM [facility] Potassium 4.1 3.5 - 4.5 mmol/L 09/01/2024 4:03 AM [facility] Chloride 104 98 - 107 mmol/L 09/01/2024 4:03 AM [facility] CO2 26 22 - 29 mmol/L 09/01/2024 4:03 AM [facility] Glucose 131(H) 70 - 99 mg/dL 09/01/2024 4:03 AM [facility] Albumin 1.7(L) 3.4 - 5.0 g/dL 09/01/2024 4:03 AM [facility] Calcium 7.7(L) 8.4 - 10.2 mg/dL 09/01/2024 4:03 AM [facility] Phosphorus 3.2 2.8 - 5.1 mg/dL 09/01/2024 4:03 AM [facility] Anion Gap 5(L) 6 - 16 09/01/2024 4:03 AM [facility] BUN/Creatinine Ratio 30(H) 7 - 23 09/01/2024 4:03 AM [facility] Osmolality Calculated 284 275 - 295 mOsm/kg 09/01/2024 4:03 AM [facility] eGFR by CKD-EPI >90 >=90 mL/min/1.7 3 m2 09/01/2024 4:03 AM [facility] Blood BLOOD SPECIMEN / Unknown Lab Venipuncture / Unknown 09/01/2024 3:06 AM WATER SOFTENER SERVICE SUPERVISOR 09/01/2024 3:32 AM [facility] Silvia Arevalo PREVENTIVE MEDICINE SPECIALIST-RECEIVING ASSOCIATE LAB - CHEMISTRY O RDERABLES [address] [address], [facility] [phone] * (ABNORMAL) CBC W/O DIFFERENTIAL (08/31/2024 6:47 AM [facility]) WBC 5.8 4.0 - 10.7 x10E9/L 08/31/2024 7:28 AM [facility] RBC Count 3.64(L) 4.30 - 5.80 x10E12/L 08/31/2024 7:28 AM [facility] Hemoglobin 9.2(L) 13.3 - 17.5 g/dL 08/31/2024 7:28 AM [facility] Hematocrit 29.7(L) 38.7 - 51.1 % 08/31/2024 7:28 AM [facility] MCV 81.6 80.0 - 98.0 fL 08/31/2024 7:28 AM [facility] MCH 25.3(L) 26.7 - 33.6 pg 08/31/2024 7:28 AM [facility] MCHC 31.0(L) 31.7 - 36.3 g/dL 08/31/2024 7:28 AM [facility] RDW-CV 16.0(H) 11.3 - 14.8 % 08/31/2024 7:28 AM [facility] Platelet Count 252 150 - 420 x10E9/L 08/31/2024 7:28 AM [facility] MPV 9.8 7.8 - 11.4 fL 08/31/2024 7:28 AM [facility] Blood BLOOD SPECIMEN / Unknown Lab Venipuncture / Unknown 08/31/2024 6:47 AM WATER SOFTENER SERVICE SUPERVISOR 08/31/2024 7:12 AM [facility] Silvia Arevalo PREVENTIVE MEDICINE SPECIALIST-RECEIVING ASSOCIATE LAB - HEMATOLOGY ORDERABLES Performing Organization Address [facility]/State/[facility] Co de Phone Number [facility] [address] [place] [phone], [facility] [phone] * MAGNESIUM BLOOD (08/31/2024 6:47 AM WATER SOFTENER SERVICE SUPERVISOR) Only the most recent of3 resultswithin the time period is included. Magnesium 1.9 1.6 - 2.6 mg/dL 08/31/2024 7:43 AM [facility] Blood BLOOD SPECIMEN / Unknown Lab Venipuncture / Unknown 08/31/2024 6:47 AM WATER SOFTENER SERVICE SUPERVISOR 08/31/2024 7:30 AM WATER SOFTENER SERVICE SUPERVISOR Silvia Arevalo PREVENTIVE MEDICINE SPECIALIST-RECEIVING ASSOCIATE LAB - CHEMISTRY O RDERABLES Performing Organization Address [facility]/ZIP Co de Phone Number [address] [address], [facility] [phone] * (ABNORMAL) GLUCOSE - POINT OF CARE (08/29/2024 4:25 PM WATER SOFTENER SERVICE SUPERVISOR) Only the most recent of12 resultswithin the time period is included. Pathologist [facility] Glucose WB/POC 179(H) 70 - 99 mg/dL 08/29/2024 6:59 PM [facility] Specimen Type Cap Fingerstick 2024 6:59 PM [facility] Blood BLOOD SPECIMEN / Unknown 08/29/2024 4:25 PM WATER SOFTENER SERVICE SUPERVISOR 08/29/2024 6:59 PM WATER SOFTENER SERVICE SUPERVISOR David Rojas MD LAB - POINT OF CARE ORDERABLES Performing Organization Address [facility]/ZIP Co de Phone Number [address] [address], [facility] [phone] * (ABNORMAL) COMPREHENSIVE METABOLIC PANEL (08/28/2024 4:57 AM WATER SOFTENER SERVICE SUPERVISOR) [facility] BUN 12 7 - 26 mg/dL 08/28/2024 6:15 AM [facility] Creatinine 0.73 0.71 - 1.16 mg/dL 08/28/2024 6:15 AM [facility] Sodium 137 136 - 145 mmol/L 08/28/2024 6:15 AM [facility] Potassium 3.9 3.5 - 4.5 mmol/L 08/28/2024 6:15 AM [facility] Chloride 110(H) 98 - 107 mmol/L 08/28/2024 6:15 AM [facility] CO2 24 22 - 29 mmol/L 08/28/2024 6:15 AM [facility] Glucose 103(H) 70 - 99 mg/dL 08/28/2024 6:15 AM [facility] Calcium 7.4(L) 8.4 - 10.2 mg/dL 08/28/2024 6:15 AM [facility] Protein Total 4.4(L) 6.0 - 8.3 g/dL 08/28/2024 6:15 AM [facility] Albumin 1.6(L) 3.4 - 5.0 g/dL 08/28/2024 6:15 AM [facility] Bilirubin Total 0.4 0.2 - 1.2 mg/dL 08/28/2024 6:15 AM [facility] Alkaline Phosphatase 63 40 - 150 U/L 08/28/2024 6:15 AM [facility] ALT 10 5 - 55 U/L 08/28/2024 6:15 AM [facility] AST 12 5 - 34 U/L 08/28/2024 6:15 AM [facility] Anion Gap 3(L) 6 - 16 08/28/2024 6:15 AM [facility] BUN/Creatinine Ratio 16 7 - 23 08/28/2024 6:15 AM [facility] Osmolality Calculated 284 275 - 295 mOsm/kg 08/28/2024 6:15 AM [facility] Albumin/Globulin Ratio 0.6(L) 1.1 - 2.3 08/28/2024 6:15 AM [facility] eGFR by CKD-EPI >90 >=90 mL/min/1.7 3 m2 08/28/2024 6:15 AM [facility] Blood BLOOD SPECIMEN / Unknown Lab Venipuncture / Unknown 08/28/2024 4:57 AM WATER SOFTENER SERVICE SUPERVISOR 08/28/2024 5:45 AM [facility] Susan Burris PA-C LAB - CHEMISTRY CARMELO ROCHA [facility] [address] [place] [phone], [facility] [phone] * BLOOD TYPE VERIFICATION (08/27/2024 7:58 AM [facility]) ABO Rh B POS 08/27/2024 9:0 6 AM [facility] Blood Bank BLOOD SPECIMEN / Unknown Lab Venipuncture / Unknown 08/27/2024 7:58 AM WATER SOFTENER SERVICE SUPERVISOR 08/27/2024 8:31 AM WATER SOFTENER SERVICE SUPERVISOR Clovis Wilkinson MD LAB - BLOOD BANK ORD ERABLES Performing Organization Address City/[facility]/ZIP Co de Phone Number [facility] [address] [place] [address], [facility] [phone] * CALCIUM IONIZED WHOLE BLOOD (08/27/2024 2:02 AM WATER SOFTENER SERVICE SUPERVISOR) Calcium Ionized 1.21 mmol/L 08/27/2024 3:01 AM [facility] pH 7.35 7.35 - 7.45 pH 08/27/2024 3:01 AM [facility] Ionized Calcium pH Adjusted 1.19 1.19 - 1.34 mmol/L 08/27/2024 3:01 AM [facility] Blood BLOOD SPECIMEN / Unknown Lab Venipuncture / Unknown 08/27/2024 2:02 AM WATER SOFTENER SERVICE SUPERVISOR 08/27/2024 2:59 AM WATER SOFTENER SERVICE SUPERVISOR David Rojas MD LAB - CHEMISTRY ORD ERABLES Performing Organization Address [facility]/ZIP Co de Phone Number [address] [phone], [facility] [phone] * (ABNORMAL) HEMOGLOBIN A1C (08/27/2024 2:02 AM WATER SOFTENER SERVICE SUPERVISOR) Hemoglobin A1c 5.7(H) <=5.6 % 08/27/2024 11:11 AM [facility] Estimated Average Glucose 117 mg/dL 08/27/2024 11:11 AM [facility] Comment: HbA1c Interpretation: Normal : < 5.7% Pre-diabetes: 5.7-6.4% Diabetes: Equal to or greater than 6.5% Test results diagnostic of diabetes should be repeated for confirmation. Treatment target values recommended by ADA and other clinical organizations should be used to evaluate metabolic control in patients. Reference: [place] [employer], Standards of Care in Diabetes -2020 In patients 70 years and older consider HbA1c target range of 7.0-7.5% (Reference: Albert Gonzalez et al. JAMDA. 2012) The Sebia assay for the measurement of HbA1c is a National Glycohemoglobin Standardization Program (NGSP) certified method. Blood BLOOD SPECIMEN / Unknown Lab Venipuncture / Unknown 08/27/2024 2:02 AM WATER SOFTENER SERVICE SUPERVISOR 08/27/2024 3:04 AM WATER SOFTENER SERVICE SUPERVISOR David Rojas MD LAB - CHEMISTRY ORD ERABLES [facility] [address] [place] [address], [facility] [phone] * (ABNORMAL) CBC W AUTO DIFFERENTIAL (08/27/2024 2:02 AM WATER SOFTENER SERVICE SUPERVISOR) Only the most recent of3 resultswithin the time period is included. WBC 4.2 4.0 - 10.7 x10E9/L 08/27/2024 3:11 AM [facility] RBC Count 3.44(L) 4.30 - 5.80 x10E12/L 08/27/2024 3:11 AM [facility] Hemoglobin 8.6(L) 13.3 - 17.5 g/dL 08/27/2024 3:11 AM [facility] Hematocrit 28.0(L) 38.7 - 51.1 % 08/27/2024 3:11 AM [facility] MCV 81.4 80.0 - 98.0 fL 08/27/2024 3:11 AM [facility] MCH 25.0(L) 26.7 - 33.6 pg 08/27/2024 3:11 AM [facility] MCHC 30.7(L) 31.7 - 36.3 g/dL 08/27/2024 3:11 AM [facility] RDW-CV 15.9(H) 11.3 - 14.8 % 08/27/2024 3:11 AM [facility] Platelet Count 196 150 - 420 x10E9/L 08/27/2024 3:11 AM [facility] MPV 10.0 7.8 - 11.4 fL 08/27/2024 3:11 AM [facility] Neutrophil % 70.4 41.0 - 74.0 % 08/27/2024 3:11 AM [facility] Lymphocyte % 17.6 17.0 - 47.0 % 08/27/2024 3:11 AM [facility] Monocyte % 9.9 3.0 - 11.0 % 08/27/2024 3:11 AM [facility] Eosinophil % 1.7 0.0 - 7.0 % 08/27/2024 3:11 AM [facility] Basophil % 0.2 0.0 - 1.6 % 08/27/2024 3:11 AM [facility] Immature Granulocytes % 0.2 0.0 - 1.0 % 08/27/2024 3:11 AM [facility] Neutrophil Absolute 2.92 1.60 - 7.50 x10E9/L 08/27/2024 3:11 AM [facility] Lymphocyte Absolute 0.73(L) 1.00 - 4.40 x10E9/L 08/27/2024 3:11 AM [facility] Monocyte Absolute 0.41 0.15 - 1.00 x10E9/L 08/27/2024 3:11 AM [facility] Eosinophil Absolute 0.07 0.00 - 0.60 x10E9/L 08/27/2024 3:11 AM [facility] Basophil Absolute 0.01 0.00 - 0.13 x10E9/L 08/27/2024 3:11 AM [facility] Blood BLOOD SPECIMEN / Unknown Lab Venipuncture / Unknown 08/27/2024 2:02 AM [facility] 08/27/2024 3:05 AM [facility] David Rojas MD LAB - HEMATOLOGY OR DERABLES [facility] [address] [place] [phone], [facility] [phone] * (ABNORMAL) BASIC METABOLIC PANEL (CALCIUM TOTAL) (08/27/2024 2:02 AM [facility]) Only the most recent of3 resultswithin the time period is included. BUN 15 7 - 26 mg/dL 08/27/2024 3:34 AM [facility] Creatinine 0.72 0.71 - 1.16 mg/dL 08/27/2024 3:34 AM [facility] Sodium 137 136 - 145 mmol/L 08/27/2024 3:34 AM [facility] Potassium 3.6 3.5 - 4.5 mmol/L 08/27/2024 3:34 AM [facility] Chloride 110(H) 98 - 107 mmol/L 08/27/2024 3:34 AM [facility] CO2 22 22 - 29 mmol/L 08/27/2024 3:34 AM [facility] Glucose 162(H) 70 - 99 mg/dL 08/27/2024 3:34 AM [facility] Calcium 7.6(L) 8.4 - 10.2 mg/dL 08/27/2024 3:34 AM [facility] Anion Gap 5(L) 6 - 16 08/27/2024 3:34 AM [facility] BUN/Creatinine Ratio 21 7 - 23 08/27/2024 3:34 AM [facility] Osmolality Calculated 288 275 - 295 mOsm/kg 08/27/2024 3:34 AM [facility] eGFR by CKD-EPI >90 >=90 mL/min/1.7 3 m2 08/27/2024 3:34 AM [facility] Blood BLOOD SPECIMEN / Unknown Lab Venipuncture / Unknown 08/27/2024 2:02 AM [employer] 08/27/2024 2:59 AM [facility] David Rojas MD LAB - CHEMISTRY ORD ERABLES [facility] [address] [place] [address], [facility] [phone] * PHOSPHORUS BLOOD (08/27/2024 2:02 AM [facility]) Only the most recent of2 resultswithin the time period is included. Phosphorus 3.1 2.8 - 5.1 mg/dL 08/27/2024 3:34 AM [facility] Blood BLOOD SPECIMEN / Unknown Lab Venipuncture / Unknown 08/27/2024 2:02 AM [employer] 08/27/2024 2:59 AM [employer] David Rojas MD LAB - CHEMISTRY ORD CARMEN Performing Organization Address [facility] Co de Phone Number [address] [address], [facility] [phone] * SARS-COV-2 (COVID-19) RAPID (08/26/2024 10:21 PM [employer]) [facility] COVID-19 PCR Not detected Not detected 08/26/19 11:01 PM [employer] [facility] Microbiology SPECIMEN FROM NASOPHARYNGEAL STRUCTURE / Unknown Collection / Unknown 08/26/2024 10:21 PM [employer] 08/26/2024 10:21 PM [employer] Narrative [facility] - 08/26/2024 11:01 PM [employer]PER[employer] The [employer] Xpert Xpress SARS-COV-2 has been authorized by [...] - MICROBIOLOGY O RDCARMEN Performing Organization Address [facility]/ZIP Co de Phone Number [address] [address], [facility] [phone] * (ABNORMAL) URINE DRUG SCREEN IMMUNOASSAY (08/26/2024 3:39 PM [employer]) [facility] Amphetamines Screen Urine Negative Negative : < 1000 ng/mL 08/26/2024 4:15 PM [facility] Barbiturates Screen Urine Negative Negative : < 200 ng/mL 08/26/2024 4:15 PM [facility] Benzodiazepine Screen Urine Positive(A) Negative : < 200 ng/mL 08/26/2024 4:15 PM [facility] Comment: Positive urine benzodiazepine screening results should be confirmed by another generally accepted non-immunological method such as gas chromatography or mass spectrometry. Opiates Urine Negative Negative : < 300 ng/mL 08/26/2024 4:15 PM [facility] Cocaine Metabolites Urine Negative Negative : < 300 ng/mL 08/26/2024 4:15 PM [facility] Phencyclidine Screen Urine Negative Negative : < 25 ng/ml 08/26/2024 4:15 PM [facility] Cannabinoids Screen Urine Negative Negative : <50 ng/mL 08/26/2024 4:15 PM [facility] Methadone Screen Urine Negative Negative : < 300 ng/mL 08/26/2024 4:15 PM [facility] Fentanyl Screen Urine Negative Negative : <1.5 ng/mL 08/26/2024 4:15 PM [facility] Urine URINE / Unknown Collection / Unknown 08/26/2024 3:39 PM [facility] 08/26/2024 3:54 PM [facility] - 08/26/2024 4:15 PM WATER SOFTENER SERVICE SUPERVISOR The Urine Toxicology Screening Panel does not screen for Propoxyphene, Meprobamate, Carisoprodol, Trazodone, vusz-fml-smbtqev medications and/or volatiles (Acetone, Isopropanol, Methanol or Ethylene Glycol). Ethanol, Salicylate, Acetaminophen, Tricyclic Antidepressants and several therapeutic drugs may be individually assayed in serum or plasma specimen. Toxicology testing by the [facility] is an aid to medical diagnosis and treatment of patients. No documented chain of custody was maintained. Results are intended to be used for clinical purposes only. Clovis Wilkinson MD LAB - URINE CHEMISTR Y ORDERABLES [facility] [address] [place] [address], [facility] [phone] * (ABNORMAL) TEG 6 GLOBAL HEMOSTASIS W/ LYSIS (08/26/2024 11:55 AM WATER SOFTENER SERVICE SUPERVISOR) Citrated Kaolin R (Reaction Time) 3.7(L) 4.6 - 9.1 min 08/26/2024 1:04 PM [facility] Comment:CK R result below no rmal range. Consistent with hypercoagulable clotting factors. Citrated Kaolin LY30 (Lysis) 0.0 0.0 - 2.6 % 08/26/2024 1:04 PM [facility] Citrated Functional Fibrinogen MA (Max Amplitude) 21.7 15.0 - 32.0 mm 08/26/2024 1:04 PM [facility] Citrated RapidTEG MA (Max Amplitude) 64.0 52.0 - 70.0 mm 08/26/2024 1:04 PM [facility] Blood BLOOD SPECIMEN / Unknown Venipuncture / Unknown 08/26/2024 11:55 AM WATER SOFTENER SERVICE SUPERVISOR 08/26/2024 12:05 PM WATER SOFTENER SERVICE SUPERVISOR David Rojas MD LAB - HEMATOLOGY OR DERABLES Performing Organization Address [facility]/State/[facility] Co de Phone Number [address] [address], [facility] [phone] * (ABNORMAL) TEG 6S PLATELET MAPPING (08/26/2024 11:55 AM WATER SOFTENER SERVICE SUPERVISOR) Pathologist [facility] TEGPLM (Max Amplitude) Koalin 65.1 53.0 - 68.0 mm 08/26/2024 12:59 PM [facility] TEGPLM (Max Amplitude) ACTF 16.7 2.0 - 19.0 mm 08/26/2024 12:59 PM [facility] TEGPLM (Max Amplitude) ADP 62.7 45.0 - 69.0 mm 08/26/2024 12:59 PM [facility] TEGPLM (Max Amplitude) AA 46.8(L) 51.0 - 71.0 mm 08/26/2024 12:59 PM [facility] Comment:AA MA below normal r jose. Inhibition present. TEGPLM %Inhibition ADP 5.0 0.0 - 17.0 % 08/26/2024 12:59 PM WATER SOFTENER SERVICE SUPERVISOR [facility] TEGPLM %Inhibition AA 37.8(H) 0.0 - 11.0 % 08/26/2024 12:59 PM [facility] TEGPLM %Aggregation ADP 95.0 83.0 - 100.0 % 08/26/2024 12:59 PM [facility] TEGPLM % Aggregation AA 62.2(L) 89.0 - 100.0 % 08/26/2024 12:59 PM [facility] Blood BLOOD SPECIMEN / Unknown Venipuncture / Unknown 08/26/2024 11:55 AM WATER SOFTENER SERVICE SUPERVISOR 08/26/2024 12:05 PM WATER SOFTENER SERVICE SUPERVISOR David Rojas MD LAB - HEMATOLOGY OR DERABLES [facility] [address] [place] [phone], [facility] [phone] * XR PELVIS 1 OR 2VW (08/26/2024 1:57 AM WATER SOFTENER SERVICE SUPERVISOR) Anatomical Region Laterality Modality Pelvis Digital Radiogra phy 08/26/2024 4:30 AM WATER SOFTENER SERVICE SUPERVISOR Impressions 08/26/2024 8:55 AM WATER SOFTENER SERVICE SUPERVISOR IMPRESSION: No acute fracture identified. Report dictated by Kris Arthur DO (president mortgage company). IStacia MD have personally reviewed and interpreted this examination/study. > Interpreting Provider: Stacia Montero MD on 08/26/2024 8:55 AM Narrative 08/26/2024 8:55 AM WATER SOFTENER SERVICE SUPERVISOR PROCEDURE: XR PELVIS 1 OR 2VW, DATE/TIME OF EXAM: 08/26/2024 1:57 AM, LOCATION [facility] INDICATION: Trauma Fracture suspected COMPARISON: None. [...] DATE/TIME OF EXAM: 08/26/2024 1:57 AM, LOCATION [facility] INDICATION: Trauma Fracture suspected COMPARISON: None. FINDINGS: No acute fracture is identified. The femoral heads appear well-seated within their respective acetabula. The pubic symphysis is intact. Bone density and texture are normal. The sacroiliac joints are normal. Clipsare seen in the pelvis. There is contrast in the urinary bladder IMPRESSION: No acute fracture identified. Report dictated by Kris Arthur DO (president mortgage company). Stacia Ardon MD have personally reviewed and interpreted this examination/study. > Interpreting Provider: Stacia Montero MD on 08/26/2024 8:55 AM Clovis Wilkinson MD DIAGNOSTIC IMAGING O RDERABLES * CT CHEST ABDOMEN PELVIS W CONT - Abdomen-pelvis trauma, blunt or penetrating (08/26/2024 1:51 AM WATER SOFTENER SERVICE SUPERVISOR) Anatomical Region Laterality Modality Chest, Abdomen, Pelvis Computed Tomography 08/26/2024 3:16 AM WATER SOFTENER SERVICE SUPERVISOR Impressions 08/26/2024 8:56 AM WATER SOFTENER SERVICE SUPERVISOR Impression: 1.Displaced to minimally displaced fractures of [...] > Dictated by Brandon Raya MD, PhD (president mortgage company). Scooter Ardon have personally reviewed and interpreted this examination/study. > Interpreting Provider: Scooter Jamison on 08/26/2024 8:56 AM Narrative 08/26/2024 8:56 AM WATER SOFTENER SERVICE SUPERVISOR PROCEDURE: CT CHEST ABDOMEN PELVIS W CONT, DATE/TIME OF EXAM: 08/26/2024 1:53 AM, LOCATION [facility] INDICATION: Trauma ADDITIONAL CLINICAL INFORMATION: Ordering [...] CONT, DATE/TIME OF EXAM:08/26/2024 1:53 AM, LOCATION [facility] INDICATION: Trauma ADDITIONAL CLINICAL INFORMATION: Ordering [...] > Dictated by Brandon Raya MD, PhD (president mortgage company). Scooter Ardon have personally reviewed and interpreted this examination/study. > Interpreting Provider: Scooter Jamison on 08/26/2024 8:56 AM Clovis Wilkinson MD CT ORDERABLES * CT LUMBAR SPINE WO CONTRAST - T/L-spine trauma, Spine fracture (08/26/2024 1:51 AM WATER SOFTENER SERVICE SUPERVISOR) Anatomical Region Laterality Modality Spine Computed Tomogra phy 08/26/2024 2:41 AM WATER SOFTENER SERVICE SUPERVISOR Impressions 08/26/2024 9:31 AM WATER SOFTENER SERVICE SUPERVISOR IMPRESSION: 1.No acute intracranial process. 2.No evidence [...] details. > Dictated by Kris Arthur DO (Rivet Hole Machine Operator), 08/26/2024 2:42 AM. Rosaura Ardon MD have personally reviewed and interpreted this examination/study. > Interpreting Provider: Rosaura Moe MD on 08/26/2024 9:31 AM Narrative 08/26/2024 9:31 AM WATER SOFTENER SERVICE SUPERVISOR PROCEDURE: CT HEAD WO CONTRAST, CT CERVICAL SPINE WO CONTRAST, CT THORACIC SPINE WO CONTRAST, CT LUMBAR SPINE WO CONTRAST, DATE/TIME OF EXAM: 08/26/2024 1:53 AM, LOCATION [facility] INDICATION: Trauma EXAMINATION: 1.Computed tomography (CT) [...] DATE/TIME OF EXAM: 08/26/2024 1:53 AM, LOCATION [facility] INDICATION: Trauma EXAMINATION: 1.Computed tomography (CT) [...] fractures of the posterior left ninth, 10th [id number] ribs. Incompletely imaged bilateral hemithoraces and basilar [...] details. > Dictated by Kris Arthur DO (Rivet Hole Machine Operator), 08/26/2024 2:42 AM. Rosaura Ardon MD have personally reviewed and interpreted this examination/study. > Interpreting Provider: Rosaura Moe MD on 08/26/2024 9:31 AM Clovis Wilkinson MD CT ORDERABLES * CT THORACIC SPINE WO CONTRAST - T/L-spine trauma, spine fracture (08/26/2024 1:51 AM WATER SOFTENER SERVICE SUPERVISOR) Anatomical Region Laterality Modality Spine Computed Tomogra phy 08/26/2024 2:41 AM WATER SOFTENER SERVICE SUPERVISOR Impressions 08/26/2024 9:31 AM WATER SOFTENER SERVICE SUPERVISOR IMPRESSION: 1.No acute intracranial process. 2.No evidence [...] details. > Dictated by Kris Arthur DO (Rivet Hole Machine Operator), 08/26/2024 2:42 AM. Rosaura Ardon MD have personally reviewed and interpreted this examination/study. > Interpreting Provider: Rosaura Moe MD on 08/26/2024 9:31 AM Narrative 08/26/2024 9:31 AM WATER SOFTENER SERVICE SUPERVISOR PROCEDURE: CT HEAD WO CONTRAST, CT CERVICAL SPINE WO CONTRAST, CT THORACIC SPINE WO CONTRAST, CT LUMBAR SPINE WO CONTRAST, DATE/TIME OF EXAM: 08/26/2024 1:53 AM, LOCATION [facility] INDICATION: Trauma EXAMINATION: 1.Computed tomography (CT) [...] DATE/TIME OF EXAM: 08/26/2024 1:53 AM, LOCATION [facility] INDICATION: Trauma EXAMINATION: 1.Computed tomography (CT) [...] fractures of the posterior left ninth, 10th [id number] ribs. Incompletely imaged bilateral hemithoraces and basilar [...] details. > Dictated by Kris Arthur DO (Rivet Hole Machine Operator), 08/26/2024 2:42 AM. Rosaura Ardon MD have personally reviewed and interpreted this examination/study. > Interpreting Provider: Rosaura Moe MD on 08/26/2024 9:31 AM Clovis Wilkinson MD CT ORDERABLES * CT CERVICAL SPINE WO CONTRAST - C-Spine Trauma, Spine fracture (08/26/2024 1:51 AM WATER SOFTENER SERVICE SUPERVISOR) Anatomical Region Laterality Modality Spine Computed Tomogra phy 08/26/2024 2:41 AM WATER SOFTENER SERVICE SUPERVISOR Impressions 08/26/2024 9:31 AM WATER SOFTENER SERVICE SUPERVISOR IMPRESSION: 1.No acute intracranial process. 2.No evidence [...] details. > Dictated by Kris Arthur DO (Rivet Hole Machine Operator), 08/26/2024 2:42 AM. Rosaura Ardon MD have personally reviewed and interpreted this examination/study. > Interpreting Provider: Rosaura Moe MD on 08/26/2024 9:31 AM Narrative 08/26/2024 9:31 AM WATER SOFTENER SERVICE SUPERVISOR PROCEDURE: CT HEAD WO CONTRAST, CT CERVICAL SPINE WO CONTRAST, CT THORACIC SPINE WO CONTRAST, CT LUMBAR SPINE WO CONTRAST, DATE/TIME OF EXAM: 08/26/2024 1:53 AM, LOCATION [facility] INDICATION: Trauma EXAMINATION: 1.Computed tomography (CT) [...] DATE/TIME OF EXAM: 08/26/2024 1:53 AM, LOCATION [facility] INDICATION: Trauma EXAMINATION: 1.Computed tomography (CT) [...] fractures of the posterior left ninth, 10th [id number] ribs. Incompletely imaged bilateral hemithoraces and basilar [...] details. > Dictated by Kris Arthur DO (Rivet Hole Machine Operator), 08/26/2024 2:42 AM. Rosaura Ardon MD have personally reviewed and interpreted this examination/study. > Interpreting Provider: Rosaura Moe MD on 08/26/2024 9:31 AM Colvis Wilkinson MD CT ORDERABLES * CT HEAD WO CONTRAST - Head Trauma, CSF leak, mental status changes (08/26/2024 1:51 AM WATER SOFTENER SERVICE SUPERVISOR) Anatomical Region Laterality Modality Head Computed Tomogra phy 08/26/2024 2:41 AM WATER SOFTENER SERVICE SUPERVISOR Impressions 08/26/2024 9:31 AM WATER SOFTENER SERVICE SUPERVISOR IMPRESSION: 1.No acute intracranial process. 2.No evidence [...] details. > Dictated by Kris Arthur DO (Rivet Hole Machine Operator), 08/26/2024 2:42 AM. Rosaura Ardon MD have personally reviewed and interpreted this examination/study. > Interpreting Provider: Rosaura Moe MD on 08/26/2024 9:31 AM Narrative 08/26/2024 9:31 AM WATER SOFTENER SERVICE SUPERVISOR PROCEDURE: CT HEAD WO CONTRAST, CT CERVICAL SPINE WO CONTRAST, CT THORACIC SPINE WO CONTRAST, CT LUMBAR SPINE WO CONTRAST, DATE/TIME OF EXAM: 08/26/2024 1:53 AM, LOCATION [facility] INDICATION: Trauma EXAMINATION: 1.Computed tomography (CT) [...] DATE/TIME OF EXAM: 08/26/2024 1:53 AM, LOCATION [facility] INDICATION: Trauma EXAMINATION: 1.Computed tomography (CT) [...] fractures of the posterior left ninth, 10th [id number] ribs. Incompletely imaged bilateral hemithoraces and basilar [...] details. > Dictated by Kris Arthur DO (Rivet Hole Machine Operator), 08/26/2024 2:42 AM. I, Rosaura Moe MD have personally reviewed and interpreted this examination/study. > Interpreting Provider: Rosaura Moe MD on 08/26/2024 9:31 AM Clovis Wilkinson MD CT ORDERABLES * (ABNORMAL) PT-INR [facility] (08/26/2024 1:30 AM WATER SOFTENER SERVICE SUPERVISOR) PT 18.0(H) 12.1 - 14.8 Seconds 08/26/2024 2:00 AM [facility] INR 1.5 See Comment 08/26/2024 2:00 AM [facility] Comment:The suggested therap eutic range for standard coumadin (warfarin) therapy is an INR of 2.0-3.0. For high-risk patients (Mechanical Mitral Valve Prosthesis, etc.), the suggested prophylactic therapeutic range is an INR of 2.5-3.5. Blood BLOOD SPECIMEN / Unknown Venipuncture / Unknown 08/26/2024 1:30 AM WATER SOFTENER SERVICE SUPERVISOR 08/26/2024 1:36 AM WATER SOFTENER SERVICE SUPERVISOR Clovis Wilkinson MD LAB - COAGULATION OR DERABLES [address] [address], [facility] [phone] * TYPE + SCREEN PANEL (08/26/2024 1:30 AM WATER SOFTENER SERVICE SUPERVISOR) [facility] Antibody Screen NEG 2:51 AM WATER SOFTENER SERVICE SUPERVISOR [facility] BLOOD BANK LAB ABO Rh B POS 08/26/2024 2:51 AM WATER SOFTENER SERVICE SUPERVISOR [facility] BLOOD BANK LAB Blood Bank BLOOD SPECIMEN / Unknown Venipuncture / Unknown 08/26/2024 1:30 AM WATER SOFTENER SERVICE SUPERVISOR 08/26/2024 2:06 AM WATER SOFTENER SERVICE SUPERVISOR Clovis Wilkinson MD LAB - BLOOD BANK ORD ERABLES [facility] BLOOD BANK LAB [address] [place] [address], [place] [phone] * LIPASE BLOOD (08/26/2024 1:30 AM WATER SOFTENER SERVICE SUPERVISOR) Lipase 12 8 - 78 U/L 08/26/2024 2:00 AM [facility] Blood BLOOD SPECIMEN / Unknown Venipuncture / Unknown 08/26/2024 1:30 AM WATER SOFTENER SERVICE SUPERVISOR 08/26/2024 1:35 AM WATER SOFTENER SERVICE SUPERVISOR Narrative [facility] - 08/26/2024 2:00 AM WATER SOFTENER SERVICE SUPERVISOR Lipase results from the Davidson Alinity analyzer may not be comparable with other methodologies. Clovis Wilkinson MD LAB - CHEMISTRY CARMELO ROCHA Performing Organization Address [facility]/ZIP Co de Phone Number [facility] [address] [place] [address], [facility] [phone] * ALCOHOL ETHYL BLOOD (08/26/2024 1:30 AM WATER SOFTENER SERVICE SUPERVISOR) Ethanol (mg/dL) <10 <10 mg/dL 2:00 AM [facility] Ethanol Calculated (g/dL) <0.010 <=0.010 g/dL 08/26/2024 2:00 AM [facility] Blood BLOOD SPECIMEN / Unknown Venipuncture / Unknown 08/26/2024 1:30 AM WATER SOFTENER SERVICE SUPERVISOR 08/26/2024 1:35 AM WATER SOFTENER SERVICE SUPERVISOR Narrative [facility] - 08/26/2024 2:00 AM WATER SOFTENER SERVICE SUPERVISOR Ethanol Interp <10: None Detected. Depression of FIXTURE FABRICATOR REPAIRER: >100 mg/dl Potentially Critical: >250 mg/dl Potentially [...] - CHEMISTRY CARMELO ROCHA Performing Organization Address [facility]/ZIP Co de Phone Number [facility] [address] [place] [phone], [facility] [phone] from Last 3 Months Advance Directives * Full Code (Latest Code Status on File) Date Activated Date Inactivated Comments 08/26/2024 5:35 AM 09/05/2024 4:25 PM Care Teams School Bus Technician Relationship Specialty Start Date End Date Gege Jackson MD [address] [address] PCP - General Internal Medicine 08/26/24
--- OUTSIDE RECORDS SUMMARY | 2024-10-31 19:35 | XMS_ITS | Clinical Summary ---
Author Organization [facility] Address [address] [place] [address] Care Team Providers Care Pole Incisor Operator Name Role Phone Gege Jackson MD Primary [...] ORAL) Take by mouth. Activ e Fish Oil-[place]-3 Fatty Acids 360-1,200 mg Capsule Take 1 Capsule by mouth. Active chlorthalidone (HYGROTON) 25 mg tablet Take 25 mg by mouth daily. Active magnesium oxide 400 mg magnesium Tablet magnesium 400 mg once daily Active hfaqb-5-zkt-epa -dpa-fish oil 1,050-1,200 mg Capsule [place] 3 with Fish Oil 1200mg 1 Daily [...] STL ABSTRACTION Provider, Abstract 08/18/2024 Orders Only [facility] Oncology and Hematology - James [address] [place] [address] Dylon Guzman MD 08/17/2024 Orders Only [facility] Oncology and Hematology - James [address] [place] [address] Dylon Guzman MD 08/12/2024 Orders Only [facility] Oncology and Hematology - James [address] [place] [address] Dylon Guzman MD 08/09/2024 External Device Data STL ABSTRACTION Provider, Abstract 08/05/2024 11:30 AM DISTRICT MANAGER MAJOR ACCOUNTS SALES Office Visit [facility] Oncology and Hematology - [address] [place] [address] Missy Nielsen MD Chronic anemia (Primary Dx); [...] Comments Blood Pressure 123/78 08/05/2024 11:41 AM DISTRICT MANAGER MAJOR ACCOUNTS SALES Pulse 76 08/05/2024 11:41 AM DISTRICT MANAGER MAJOR ACCOUNTS SALES Temperature 36.9 C (98.4 F) 08/05/2024 11:41 AM DISTRICT MANAGER MAJOR ACCOUNTS SALES Respiratory Rate 15 08/05/2024 11:4 1 AM DISTRICT MANAGER MAJOR ACCOUNTS SALES Oxygen Saturation 96% 08/05/2024 11: 41 AM DISTRICT MANAGER MAJOR ACCOUNTS SALES Inhaled Oxygen Concentration - - Weight 81.5 kg (179 lb 9.6 oz) 08/05/2024 11:41 AM DISTRICT MANAGER MAJOR ACCOUNTS SALES Paient stated that this is the correct weight Height 182.9 cm (6') 08/05/2024 11:41 AM DISTRICT MANAGER MAJOR ACCOUNTS SALES Body Mass Index 24.36 08/05/2024 11:41 AM DISTRICT MANAGER MAJOR ACCOUNTS SALES Plan of Treatment Health Maintenance Due Date [...] RECEPTOR TFR SOLUBLE Routine 08/05/2024 4:08 PM DISTRICT MANAGER MAJOR ACCOUNTS SALES TRANSFERRIN RECEPTOR TFR SOLUBLE Routine 08/05/2024 4:03 PM DISTRICT MANAGER MAJOR ACCOUNTS SALES COMPREHENSIVE METABOLIC PANEL Routine 08/05/2024 1:56 PM DISTRICT MANAGER MAJOR ACCOUNTS SALES from Last 3 Months Results * TRANSFERRIN RECEPTOR TFR SOLUBLE (08/05/2024 4:08 PM DISTRICT MANAGER MAJOR ACCOUNTS SALES) Only the most recent of2 resultswithin the time period is included. Blood Dylon Guzman MD CHEMISTRY ORDERABLES Final Resu lt * COMPREHENSIVE METABOLIC PANEL (08/05/2024 1:56 PM DISTRICT MANAGER MAJOR ACCOUNTS SALES) Blood Dylon Guzman MD CHEMISTRY ORDERABLES Final Resu lt from Last 3 Months Insurance MEDICARE PART A AND B BCBS SUPP MEDICARE PART A AND B BCBS SUPP Care Teams Pole Incisor Operator Relationship Specialty Start Date End Date Gege Jackson MD PCP - General Internal Medicine 09/17/18
--- OUTSIDE RECORDS SUMMARY | 2024-10-31 19:35 | XMS_ITS | Clinical Summary ---
Author Organization [facility] Medical Office Building B Address [address] [place] [address] Care Team Providers Care Offender Job Retention Specialist Name Role Phone Ayo Jackson MD Primary Care Provide r Garrison Mary MD Unavailable [phone] Allergies Active Allergy Reactions Criticality Noted Date [...] monitoring Assessment & Plan (07/15/2021 3:48 PM SR. SOCIAL MEDIA & MOBILE MANAGER): Parathyroid hormone level, call with results, consider referral to Head and Neck surgery at [facility] Surgical History Surgery Date Site/Laterality Comments [...] on file Legal Sex Male 6:41 PM SR. SOCIAL MEDIA & MOBILE MANAGER Gender Identity Not on file Sexual Orientation Not on file Obstetrics History Last Filed Vital Signs Vital Sign Reading Time Taken Comments Blood Pressure 124/76 07/08/2022 7:43 AM SR. SOCIAL MEDIA & MOBILE MANAGER Pulse 79 07/08/2022 7:43 AM SR. SOCIAL MEDIA & MOBILE MANAGER Temperature 36.2 C (97.2 F) 07/08/2022 7:43 AM SR. SOCIAL MEDIA & MOBILE MANAGER Respiratory Rate 16 07/08/2022 7:43 AM SR. SOCIAL MEDIA & MOBILE MANAGER Oxygen Saturation 94% 07/08/2022 7:43 AM SR. SOCIAL MEDIA & MOBILE MANAGER Inhaled Oxygen Concentration - - Weight 82.1 kg (181 lb) 07/07/2022 7:13 AM SR. SOCIAL MEDIA & MOBILE MANAGER Height 185.4 cm (6' 1 ) 07/07/2022 7:13 AM SR. SOCIAL MEDIA & MOBILE MANAGER Body Mass Index 23.88 07/07/2022 7:13 AM SR. SOCIAL MEDIA & MOBILE MANAGER Plan of Treatment Health Maintenance Due Date [...] 02/12/2022, 02/2018 Medical Devices Implanted Type Area Patient Safety Coordinator Device Identifier Shelf Expiration Date Model / Serial / Lot [employer] Sls-Clip Ligate Triangular Wire Leslee Groove Small Chevron Clip Latex Free [id number] - [id number] Implanted:Qty: 3 on 07/07/2022 by Gavin Sommer MD at [facility] [employer] [id number] / / Insurance MEDICARE [facility] MEDICARE [facility] MEDICARE [facility] Advance Directives For more information, please contact: [phone] * Full Code (Latest Code Status on File) Date Activated Date Inactivated Comments 07/07/2022 12:53 PM 07/08/2022 3:25 PM Care Teams Offender Job Retention Specialist Relationship Specialty Start Date End Date Ayo Jackson MD [address] [facility] [address] [place] [address] PCP - General Internal Medicine 05/08/21 Garrison Mary MD [address] [facility] [address] [place] [address] Consulting Physician Otolaryngology 11/05/21
--- OUTSIDE RECORDS SUMMARY | 2024-10-31 19:35 | XMS_ITS | Encounter Summary ---
Author Organization [facility] Address [address] [place] [address] [place] [address] Care Team Providers Care Associate Of Science In Nursing Name Role Phone Gege Jackson MD Primary Care Provider Encounter Details Date Type Department Care Team (Late Contact Info) Description 07/19/2020 Lab Requisition [facility] [address] [place] [address] Jose Manuel Perea MD [address] [address] Social History Tobacco Use Types Packs/Day Years Used Date Smoking Tobacco: Never Assessed Sex and Gender Information Value Date Recorded Sex Assigned at Not on file Gender Identity Not on file Sexual Orientation Not on file documented as of this encounter Plan of Treatment Upcoming Encounters Date Type Department Care Team (Late Contact Info) Description 11/03/2024 12:00 PM CDT Office Visit [facility] - General Surgery [address] [place] [address] documented as of this encounter Procedures Procedure Name Priority Date/Time Associated Diagnosis Comments DERMATOPATHOLOGY Routine 07/18/2020 12:0 0 AM [employer] documented in this encounter Results * DERMATOPATHOLOGY (07/18/2020 12:00 AM [employer]) Case Report Dermatopathology Report Case: [id number] Authorizing Provider: Jose Manuel Perea MD Collected: 07/18/2020 12:00 AM Ordering Location: [facility] Received: 07/19/2020 11:28 AM Pathologist: Osiel Rangel MD Specimen: Skin, dorsal right wrist 0 4:03 PM [facility] Final Diagnosis Specimen A. 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 Check margins. 0 4:03 PM [facility] Gross Description Specimen A: Received is one formalin filled container labeled with the patient's name and designated dorsal right wrist. The specimen consists of a curettage and desiccation biopsy measuring [id number]. The margin is inked green. Jar 0. 0 4:03 PM [facility] [facility] DERMATOPATHOLOGY LABORATORY Microscopic Description Specimen A. SKIN, dorsal right wrist: Sections reveal parakeratosis, acanthosis and keratinocyte dysmaturation which is most prominent in the lower epidermis. Focal nests are present in the dermis. This lesion is not present at the sampled margin of the specimen. 0 4:03 PM [facility] Disclaimer An external and internal positive and negative controls are appropriate for the histochemical, immunohistochemical and immunofluorescence stain(s) in this case (if any), except where stated explicitly. The performance characteristics of the stain(s) cited in this report were developed and its performance characteristic determined by the Dermatopathology Laboratory at [facility], directed by Dr. Odessa Rangel. These tests need not be, and therefore are not, approved by the [place] Food and Drug Administration. The tests are used for clinical purposes. Billing Codes Specimen Charges Stain Charges 11256 1 0 4:03 PM [facility] DERMATOPATHOLOGY LABORATORY Embedded Images 0 4:03 PM [facility] Pathology/Cytolog y TISSUE SPECIMEN FROM SKIN / Unknown 07/18/2020 07/19/2020 11:28 AM [employer] Jose Manuel Perea MD LAB - PATHOLOGY/CYTO [facility] ORDER[facility]LES DERMATOPATHOLOGY LABORATORY [facility] - Department of Dermatology [address] [phone] documented in this encounter Visit Diagnoses Not on filedocumented in this encounter Additional Health Concerns Infection Onset Date Last Indicated Resolved Time COVID-19 Under Investigation 08/26/2024 08/26/2024 08/26/2024 11:01 PM [employer] documented as of this encounter Care Teams Associate Of Science In Nursing Relationship Specialty Start Date End Date Gege Jackson MD [address] [phone] PCP - General Internal Medicine 08/26/24 documented as of this encounter
--- OUTSIDE RECORDS SUMMARY | 2024-10-31 19:35 | XMS_ITS | CONTINUITY OF CARE DOCUMENT ---
Author Name guy, guy Address Unknown Organization [facility] Address [address] [place] [address] Phone [phone] Care Team Providers Care Rejected Items Clerk Name Role Phone Rangel Slaughter MD Unavailable YULIA LIMA MD Unavailable YULIA LIMA MD Unavailable PROBLEMS Condition Status Date Provider Notes S/P BI-V PM Biotronik // Gen change BiV PM Biotronik ( MRI Safe) active Kassandra Mandel Hypertriglyceridemia active Rangel Perez Vitamin D deficiency active Rangel Perez HTN essential;NEG DUPLEX active Rangel wise MD [facility] AORTIC SCLEROSIS;2007 completed - Rangel Slaughter MD Diabetes Mellitus, Type II active Rangel rey MD CABG; PAMELA AND 2V 2004; completed 4 - Rosario Fay MD CAD S/P CABG- PAMELA AND 2V 2004 active Rangel Slaughter MD neg dupelx DIASTOLIC DYSFUNCTION;NML EF 12 completed - Rangel Slaughter MD DYSLIPIDEMIA;with low crp active Rangel conrad MD ATRIAL FIBR, [place]; NML TSH, active Dinah nair [facility] Tobacco use, quit active Rangel Slaughter MD [...] In-person encounter Office Visit Rosario Fay MD [facility] - In-person encounter Office Visit Rangel Slaughter MD [facility] - In-person encounter Office Visit Rosario Fay MD [facility] - In-person encounter Office Visit Rosario Fay MD [facility] - In-person encounter Office Visit Rangel Slaughter MD [facility] - In-person encounter Office Visit Rangel Slaughter MD [facility] Diabetes Mellitus, Type IIOverweightMicroalbuminuria;ne g egfrhyperparathyroidism - In-person encounter Office Visit Rangel Slaughter MD [facility] Elevated LFT'sMicroalbuminuria;neg egfrhyperparathyroidism - In-person encounter Office Visit Rangel Slaughter MD [facility] Anemia, iron deficiencyProstate cancer - In-person encounter Office Visit Rangel Slaughter MD [facility] Anemia, iron deficiency - In-person encounter Office Visit Rangel Slaughter MD [facility] - In-person encounter Office Visit Rangel Slaughter MD [facility] Aortic root dilatation - In-person encounter Office Visit Rangel Slaughter MD [facility] HTN essential;NEG DUPLEXDizziness - In-person encounter Office Visit Rangel Slaughter MD [facility] - In-person encounter Office Visit Rangel Slaughter MD [facility] r/o Sleep apnea;neg studyCarotid artery disease <50%r/o AAA;neg usShortness of breath - In-person encounter Office Visit Rosario Fay MD [facility] - In-person encounter Office Visit Rosario Fay MD [facility] Ventricular tachycardia - In-person encounter Office Visit Rangel Slaughter MD [facility] Tobacco use, quitDiastolic CHF and lvhScreening - In-person encounter Office Visit Rangel Slaughter MD [facility] CAD S/P CABG- PAMELA AND 2V 2004Diastolic CHF and lvhScreeningAnemia, iron deficiency - In-person encounter Office Visit Rosario Fay MD [facility] HTN essential;NEG DUPLEXDiabetes Mellitus, Type IICAD S/P CABG- PAMELA AND 2V 2004DYSLIPIDEMIA;with low crpHx of DVTBiotronic BiV cardiac pacemaker presentR/O Sleep apnea - In-person encounter Office Visit Rosario Fay MD [facility] - In-person encounter Office Visit Rangel Slaughter MD [facility] DYSLIPIDEMIA;with low crpr/o Sleep apnea;neg studyDyspnea on exertion - In-person encounter Office Visit Rangel Slaughter MD [facility] - In-person encounter Office Visit Rosario Fay MD [facility] R/O Sleep apnea - In-person encounter Office Visit Rosario Fay MD [facility] - In-person encounter Office Visit Rosario Fay MD [facility] - In-person encounter Office Visit Rangel Slaughter MD [facility] ATRIAL FIBR, PAROX; NML TSH,Tobacco use, quitSnoringOBESITY;DID NOT WANT MEDFIAST OR DIET PILLDiabetes Mellitus, Type II, controlled w/ vascular complicationsGranulomatous lung diseaseAortic atherosclerosis - In-person encounter Office Visit Rosario Fay MD [facility] CAD S/P CABG- PAMELA AND 2V 2004AAA; NEG US 09Hx of DVTBiotronic BiV cardiac pacemaker presentArthritis - osteo - In-person encounter Office Visit Rosario Fay MD [facility] - In-person encounter Office Visit Rosario Fay MD [facility] - In-person encounter Office Visit Rangel Slaughter MD [facility] HTN essential;NEG DUPLEXR/O ISCHEMIA;NEG NUC 12 AND 14Biotronic BiV cardiac pacemaker presentDiastolic CHF and lvh - In-person encounter Office Visit Rosario Fay MD [facility] - In-person encounter Office Visit Rangel Slaughter MD [facility] HTN essential;NEG DUPLEXATRIAL FIBR, PAROX; NML TSH,MITRAL REGURGITATION, MILD, NML EF 13DIABETES MELLITUS, TYPE II, CONTROLLED W/ VASCULAR COMPLICATIONSPeripheral vascular disease, unspecifiedDiastolic CHF and lvh - In-person encounter Office Visit Rosario Fay MD [facility] - In-person encounter Office Visit Rangel Slaughter MD [facility] HTN essential;NEG DUPLEXDYSLIPIDEMIA;with low crpATRIAL FIBR, PAROX; NML TSH,OBESITY;DID NOT WANT MEDFIAST OR DIET PILLBiotronic BiV cardiac pacemaker presentCARDIOMYOPATHY - In-person encounter Office Visit Rosario Fay MD [facility] - In-person encounter Office Visit Rosario Fay MD [facility] - In-person encounter Office Visit Rosario Fay MD [facility] - In-person encounter Office Visit Rangel Slaughter MD [facility] DIASTOLIC DYSFUNCTION;NML EF 12DYSLIPIDEMIA;with low crpATRIAL FIBR, PAROX; NML TSH,Tobacco use, quitBRADYCARDIA, SINUS;WORSENED BY SOTOLOLAV BLOCK, 1ST DEGREE;DUE TO MEDSMYALGIAATRIAL FLUTTER PAROXYSMALSICK SINUS SYNDROMEBiotronic BiV cardiac pacemaker present - In-person encounter Office Visit Rosario Fay MD [facility] - In-person encounter Office Visit Rosario Fay MD [facility] - In-person encounter Office Visit Rosario Fay MD [facility] r/o Sleep apnea;neg study - In-person encounter Office Visit Rosario Fay MD [facility] - In-person encounter Office Visit Rangel Slaughter MD [facility] DYSLIPIDEMIA;with low crpATRIAL FIBR, PAROX; NML TSH,Hx of DVTOBESITY;DID NOT WANT MEDFIAST OR DIET PILLR/O ISCHEMIA;NEG NUC 12 AND 14 - In-person encounter Office Visit Rangel Slaughter MD [facility] DIASTOLIC DYSFUNCTION;NML EF 12DYSLIPIDEMIA;with low crpHx of DVTAV BLOCK, 1ST DEGREE;DUE TO MEDS - In-person encounter Office Visit Rangel Slaughter MD [facility] - In-person encounter Office Visit Rangel Slaughter MD [facility] HTN essential;NEG DUPLEXCAD S/P CABG- PAMELA AND 2V 2004DIASTOLIC DYSFUNCTION;NML EF 12Hx of DVTOBESITY;DID NOT WANT MEDFIAST OR DIET PILL - In-person encounter Office Visit Rangel Slaughter MD [facility] ATRIAL FIBR, PAROX; NML TSH,Tobacco use, quit - In-person encounter Office Visit Rangel Slaughter MD [facility] ATRIAL FIBR, PAROX; NML TSH,Snoring - In-person encounter Office Visit Rangel Slaughter MD [facility] CAD S/P CABG- PAMELA AND 2V 2004ATRIAL FIBR, PAROX; NML TSH, - In-person encounter Office Visit Rangel Slaughter MD [facility] HTN essential;NEG DUPLEXAORTIC SCLEROSIS;2008CABG; PAMELA AND 2V 2004;DIASTOLIC DYSFUNCTION;NML EF 12ATRIAL FIBR, PAROX; NML TSH,BRADYCARDIA, SINUS;WORSENED BY SOTOLOL - In-person encounter Office Visit Rangel Slaughter MD [facility] ATRIAL FIBR, PAROX; NML TSH, - In-person encounter Office Visit Rangel Slaughter MD [facility] HTN essential;NEG DUPLEXCABG; PAMELA AND 2V 2004;CAD S/P CABG- PAMELA AND 2V 2004DIASTOLIC DYSFUNCTION;NML EF 12DYSLIPIDEMIA;with low crpATRIAL FIBR, PAROX; NML TSH,Tobacco use, quit - In-person encounter Office Visit Rangel Slaughter MD [facility] AORTIC SCLEROSIS;2008Diabetes Mellitus, Type IICABG; PAMELA [...] lder weight E&M 186 [lb_av] Cassia Radha [facility] height E&M 73 [in_i] Cassia Jean-Paulfab [facility] Body Mass Index (Ratio) 24.99 kg/m2 Svetlana Slaughter MD blood pressure, cuff size large Ta ad [place] blood pressure, diastolic 74 mm[Hg] Ta ad [place] blood pressure, systolic 136 mm[Hg] [facility] oxygen saturation, oximetry 96 % [facility] respiratory rate E&M 16 /min [facility] pulse rate 80 /min [facility] weight E&M 189.4 [lb_av] [facility] height E&M 73 [in_i] [facility] Body Mass Index (Ratio) 25.86 kg/m2 Svetlana [...] Cummins blood pressure, systolic 166 mm[Hg] Ton [facility] pulse rate 80 /min [facility] rate E&M 16 /min [facility] oxygen saturation, oximetry 96 % [facility] weight E&M 217 [lb_av] [facility] height E&M 73 [in_i] [facility] Body Mass Index (Ratio) 28.52 kg/m2 Svetlana [...] % [place] respiratory rate E&M 16 /min [place] pulse rate 81 /min weight E&M 215 [...] Sabina liveon blood pressure, diastolic 77 mm[Hg] Ma elvia [place] blood pressure, systolic 142 mm[Hg] [...] Body Mass Index (Ratio) 26.07 kg/m2 Amanda Hunter weight E&M 197.6 [lb_av] Sabina pritchett blood [...] [place] respiratory rate E&M 15 /min Judy eMdina weight E&M 206 [lb_av] Judy Medina Body Mass Index (Ratio) 26.60 kg/m2 Shazia Lyn blood pressure, diastolic 78 mm[Hg] Me elvia Lyn blood pressure, systolic 138 mm[Hg] Vanessa Lyn pulse rate 89 /min Judy Lyn oxygen saturation, oximetry 98 % Judy Lyn respiratory rate E&M 16 /min Judy Lyn weight E&M 201.6 [lb_av] Judy Lny Body Mass Index (Ratio) 26.78 kg/m2 Ch i [place] blood pressure, diastolic 72 mm[Hg] Krishna mahoneyi [place] blood pressure, systolic 132 mm[Hg] Lakeshia adelina Martel pulse rate 92 /min Cassia Radha [facility] oxygen saturation, oximetry 97 % Cassia Martel [...] Johnson Body Mass Index (Ratio) 26.61 kg/m2 Wanda Johnson pulse rate 83 /min Klaudia Johnson [...] Mass Index (Ratio) 27.41 kg/m2 Wanda altamirano [place] pulse rate 97 /min Klaudia [place] oxygen saturation, oximetry 94 % [facility] respiratory rate E&M 17 /min [facility] weight E&M 207 [lb_av] [facility] Body Mass Index (Ratio) 2.85 kg/m2 Ricco frances [place] blood pressure, diastolic, left arm 78 mm [Hg] [facility] [place] blood pressure, systolic, left arm 152 mm [Hg] [facility] blood pressure, diastolic, right arm 75 m m[Hg] [facility] [place] blood pressure, systolic, right arm 142 m m[Hg] [facility] [place] blood pressure, diastolic 78 mm[Hg] Villegas Tuttle blood pressure, systolic 152 mm[Hg] Shubham alfonso [place] pulse rate 16 /min [facility] [place] oxygen saturation, oximetry 99 % [facility] [place] respiratory rate E&M 16 /min [facility] [place] weight E&M 21.50 [lb_av] Meme serrano blood pressure, diastolic 88 mm[Hg] Kodi Posada RN blood pressure, systolic 147 mm[Hg] Moreno Posada RN pulse rate 85 /min Moreno Posada RN oxygen saturation, oximetry 96 % Moreno Posada RN respiratory rate E&M 18 /min Moreno palacio RN Body Mass Index (Ratio) 29.13 kg/m2 Moreno Posada RN weight E&M 220 [lb_av] Moreno Posada RN Body Mass Index (Ratio) 28.60 kg/m2 [...] diastolic, left arm 81 mm [Hg] Katie Gomes MA blood pressure, systolic, left arm 141 mm [Hg] Katie Gomes MA blood pressure, diastolic, right arm 80 m m[Hg] Katie Gomes MA blood pressure, systolic, right arm 142 m m[Hg] Katie Gomes MA oxygen saturation, oximetry 97 % Katie Gomes MA blood pressure, diastolic 80 mm[Hg] Mellissa Gomes DC blood pressure, systolic 142 mm[Hg] Suze Gomes EDDY pulse rate 72 /min Katie Gomes EDDY respiratory rate E&M 20 /min Katie Gomes DC weight E&M 212 [lb_av] Katie Gomes EDDY [...] [facility] 3.5-5.2 sodium, serum 143 mmol/L [facility] 059-451 2332/12 /08 urea nitrogen/creatinine ratio, serum 21 [facility] [...] Not Estab. platelet count 169 X10E3/UL [facility] [phone]/12 /07 red blood cell distribution width 12.4 [...] LDL cholesterol, serum 32 mg/dL Effie Friedman BI[employer]ICAL SERVICE ENGINEER pro brain natriuretic peptide 390 pg/mL [facility] 0-376 High ferritin, serum 381 ng/mL [facility] 30-400 iron saturation percent, serum 41 % [facility] 15-55 iron, serum 127 ug/dL [facility] 38-169 iron binding capacity, unsaturated 183 ug/dL [facility] 257-718 3521/03 /20 iron binding capacity, total 310 ug/dL [facility] 006-816 7091/03 /20 calcium, serum 10.2 mg/dL [facility] 8.6-10.2 carbon dioxide, venous blood 23 mmol/L [facility] 20-29 chloride, serum 104 mmol/L [facility] 96-106 potassium, serum 5.0 mmol/L [facility] 3.5-5.2 sodium, serum 143 mmol/L [facility] 638-228 9040/03 /20 urea nitrogen/creatinine ratio, serum 11 [facility] [...] 0-149 High cholesterol, serum 103 mg/dL [facility] 378-465 2493/09 /08 platelet count 137 X10E3/UL [facility] 150-379 [...] [facility] 3.5-5.2 sodium, serum 143 mmol/L [facility] 056-110 6380/09 /08 urea nitrogen/creatinine ratio, serum 18 [employer] [...] iron binding capacity, total 323 ug/dL [facility] [phone]/05 /10 hemoglobin A1C, blood, as % of [...] Not Estab. platelet count 150 X10E3/UL [facility] [phone]/05 /10 red blood cell distribution width 15.0 [...] [facility] 3.5-5.2 sodium, serum 141 mmol/L [facility] [phone]/05 /10 urea nitrogen/creatinine ratio, serum 12 [facility] 10-24 eGFR if 84 mL/min/{1.73_ m2} [facility] >59 eGFR if not 73 mL/min/{1.73_ m2} [facility] >59 creatinine, serum 1.02 mg/dL [facility] 0.76-1.27 urea nitrogen, blood 12 mg/dL [facility] 8-27 blood glucose, random 115 mg/dL [facility] 65-99 High ferritin, serum 112.5 ng/mL LinkLog 30.0 - 400.0 immature granulocytes, percentage of total cells, blood 0.2 % [facility] - nucleated red blood cells as percent of blood leukocytes 0.0 % [facility] - red blood cell (erythrocyte) count, per high power field 0.0 10*3/UL [facility] - eosinophils as percent of blood leukocytes 0.9 % [facility] - neutrophils as percent of blood leukocytes 70.2 % [facility] - Absolute Neutrophils 3.1 CELLS/UL [facility] 1.5 - 7.8 basophils as percent of blood leukocytes 0.5 % [facility] Basophils 0.0 CELLS/UL [facility] 0.0 - 0.2 monocytes as percent of blood leukocytes 8.6 % [facility] - Absolute Monocytes 0.4 CELLS/UL [facility] 0.2 - 1.0 lymphocytes as percent of blood leukocytes 19.6 % [facility] - Absolute Lymphocytes 0.9 CELLS/UL [facility] 0.9 - 3.9 mean platelet volume 11.0 (?) [facility] platelet count 145.0 THOUSAND/UL LinkLog 100.0 [...] iron binding capacity, total 345.8 ug/dL [facility] 250.0 - 450.0 folate, serum 17.6 NG/MLM [facility] 5.6 - 45.8 vitamin b12, serum 448.3 pg/mL [facility] 211.0 - 946.0 ferritin, serum 17.5 ng/mL [facility] 30.0 - 400.0 Low red blood cell distribution width, size density 44.9 fL [facility] - immature granulocytes, percentage of total cells, blood 0.2 % [facility] - nucleated red blood cells as percent of blood leukocytes 0.0 % [facility] - red blood cell (erythrocyte) count, per high power field 0.0 10*3/UL [facility] - eosinophils as percent of blood leukocytes 0.4 % [facility] neutrophils as percent of blood leukocytes 66.9 % [facility] Absolute Neutrophils 3.1 CELLS/UL [facility] 1.5 - 7.8 basophils as percent of blood leukocytes 0.6 % [facility] Basophils 0.0 CELLS/UL [facility] 0.0 - 0.2 monocytes as percent of blood leukocytes 8.7 % [facility] - Absolute Monocytes 0.4 CELLS/UL [facility] 0.2 - 1.0 lymphocytes as percent of blood leukocytes 23.2 % [facility] Lymphocytes 1.1 CELLS/UL [facility] 0.9 - 3.9 mean platelet volume 10.8 (?) [facility] - platelet count 221.0 THOUSAND/UL [facility] 100.0 - 400.0 mean corpuscular hemoglobin concentration, RBC 28.2 G/DL [facility] 31.0 - 38.0 Low mean corpuscular hemoglobin, RBC 21.1 pg [facility] 25.0 - 35.0 Low mean corpuscular volume, RBC 74.9 fL [facility] 75.0 - 100.0 Low hematocrit, blood 31.9 % [facility] 35.0 - 55.0 Low hemoglobin, blood 9.0 g/dL [facility] 11.5 - 16.5 Low erythrocyte count, whole blood 4.3 MILLION/UL [facility] 3.5 - 5.5 iron, serum 22.0 ug/dL [facility] 31.0 - 144.0 Low iron saturation percent, serum 4.5 % [facility] 20.0 - 50.0 Low iron binding capacity, total 488.6 ug/dL [facility] 250.0 - 450.0 High hemoglobin A1C, blood, as % of total hemoglobin 7.1 % [facility] 4.0 - 5.6 High free thyroxine index 8.6 ??g/dL [facility] 4.4 - 11.4 triiodothyronine uptake 1.0 TBI [facility] 0.8 - 1.3 thyroxine, serum, total 8.6 ??G/DL [facility] 4.5 - 11.7 thyroid stimulating hormone, serum 1.310 ??IU/ML [facility] 0.270 - 4.200 anion gap, serum 11.2 [facility] - albumin/globulin ratio, serum 2.8 [...] Posada RN Normal platelet count 145 10*3/mm3 [facility] hematocrit, blood 47.5 % [facility] triglyceride, serum, fasting 165 mg/dL [facility] HDL cholesterol, serum 28 mg/dL [facility] lipoprotein, beta, serum, point, quantitative, calculated 65 mg/dL [facility] cholesterol, serum 126 mg/dL [facility] alanine aminotransferase (SGPT), serum 21 1/L [facility] aspartate aminotransferase (SGOT), serum 23 1/L [facility] creatinine, serum 0.9 mg/dL [facility] potassium, serum 4.3 mmol/L [facility] sodium, serum 139 mmol/L [facility] platelet count 185 10*3/mm3 [facility] hematocrit, blood 45.1 % [facility] triglyceride, serum, fasting 86 mg/dL [facility] Yash HDL cholesterol, serum 33 mg/dL [facility] lipoprotein, beta, serum, point, quantitative, calculated 70.8 mg/dL [facility] cholesterol, serum 121 mg/dL [facility] alanine aminotransferase (SGPT), serum 24 1/L [facility] aspartate aminotransferase (SGOT), serum 15 1/L [facility] creatinine, serum 1.0 mg/dL [facility] potassium, serum 3.9 mmol/L [facility] sodium, serum 140 mmol/L [facility] triglyceride, serum, fasting 102 mg/dL [facility] HDL cholesterol, serum 22 mg/dL [facility] LDL cholesterol, serum 78 mg/dL [facility] cholesterol, serum 120 mg/dL [facility] platelet count 163 10*3/mm3 [facility] hematocrit, blood 51.2 % [facility] international normalized ratio (INR) 1.8 [facility] creatinine, serum 1.08 mg/dL [facility] potassium, serum 4.2 mmol/L [facility] sodium, serum 143 mmol/L [facility] platelet count 160 10*3/mm3 [facility] hematocrit, blood 47.7 % [facility] lipoprotein, beta, serum, point, quantitative, calculated 37 mg/dL [facility] cholesterol, serum 88 mg/dL [facility] thyroid stimulating hormone, serum 1.330 u[IU]/mL [facility] alanine aminotransferase (SGPT), serum 50 1/L [facility] aspartate aminotransferase (SGOT), serum 23 1/L [facility] creatinine, serum 0.96 mg/dL [facility] potassium, serum 4.1 mmol/L [facility] sodium, serum 143 mmol/L [facility] urate crystals, amorphous, urine, semiquantitative Many [facility] mucus on urinalysis Many [facility] leukocyte esterase, urine, by dipstick Negative [facility] urobilinogen, urine, semiquantitative (dipstick) 2.0 [facility] nitrite, urine, semiquantitative Negative [facility] RBC, urine, dipstick Negative [facility] bilirubin, urine Negative [facility] ketones, urine, by test strip Negative [facility] glucose, urine, semiquantitative Trace [facility] protein, urine, semiquantitative (dipstick) Trace [facility] pH, urine, semiquantitative 5.5 [facility] specific gravity, urine 1.024 [facility] urine color Light-[facility]ley [facility] appearance, urine Ex. Turbid [facility] prostate specific antigen <0.010 [facility] hemoglobin A1C, blood, as % of total hemoglobin 6.8 % [facility] triglyceride, serum, fasting 63 mg/dL [facility] HDL cholesterol, serum 32 mg/dL [facility] LDL cholesterol, serum 38 mg/dL [facility] cholesterol, serum 83 mg/dL [facility] Estimated Glomerular Filtration Rate (calc) 72.3 mL/min/{1.73_ m2} [facility] Yash protein, total, serum 6.8 g/dL [facility] albumin, serum 4.1 g/dL [facility] bilirubin, serum, total 1.6 mg/dL [facility] alkaline phosphatase, serum 87 1/L [facility] alanine aminotransferase (SGPT), serum 26 1/L [facility] aspartate aminotransferase (SGOT), serum 44 1/L [facility] calcium, serum 9.7 mg/dL [facility] blood glucose, fasting 122 mg/dL [facility] creatinine, serum 1.03 mg/dL [facility] urea nitrogen, blood 22 mg/dL [facility] carbon dioxide, serum, total 23 mmol/L [facility] chloride, serum 108 mmol/L [facility] potassium, serum 4.0 mmol/L [facility] sodium, serum 141 mmol/L [facility] platelet count 140 10*3/uL [facility] red blood cell distribution width 13.1 % [facility] mean corpuscular hemoglobin concentration, RBC 35.5 g/dL [facility] mean corpuscular hemoglobin, RBC 34.9 pg [facility] mean corpuscular volume, RBC 98.3 fL [facility] hematocrit, blood 44.9 % [facility] hemoglobin, blood 15.9 g/dL [facility] erythrocyte (RBC) count 4.57 10*6/mm3 [facility] monocyte count, blood 0.6 10*3/mm3 [facility] lymphocyte count, blood 1.7 10*3/mm3 [facility] monocytes as percent of blood leukocytes 9.8 % [facility] lymphocytes as percent of blood leukocytes 27.1 % [facility] leukocyte count, blood 6.2 10*3/mm3 [facility] alanine aminotransferase (SGPT), serum 30 1/L CRYSTAL JESENICK BI[employer] SERVICE ENGINEER aspartate aminotransferase (SGOT), serum 28 1/L CRYSTAL JESENICK BI[employer] SERVICE ENGINEER triglyceride, serum, fasting 200 mg/dL CRYSTAL JESENICK BI[employer] SERVICE ENGINEER HDL cholesterol, serum 19 mg/dL CRYSTAL JESENICK BI[employer]ICAL SERVICE ENGINEER cholesterol, serum 100 mg/dL CRYSTAL JESENICK BI[employer]ICAL SERVICE ENGINEER triglyceride, target level 150 mg/dL CRYSTAL JESENICK [employer] SERVICE ENGINEER HDL cholesterol, serum, target level 40 mg/dL CRYSTAL JESENICK BIOMEDICAL SERVICE ENGINEER LDL target level 70 mg/dL SUSIE ANDERSON BIOMEDICAL SERVICE ENGINEER cholesterol, target level 200 mg/dL SUSIE ANDERSON BIOMEDICAL SERVICE ENGINEER calcium, serum 10.0 mg/dL [employer] 8.6-10.2 Normal [...] tablet active TAKE 1 TABLET TWICE DAILY [facility] Specialist sotalol 120 mg tablet active TAKE [...] once a day Sabina Hunter VITAMIN D3 14585 UNIT ORAL TABLET completed Take 1 tablet [...] TABLET completed ONE TAB. DAILY - Rangel lSaughter MD SOTALOL HCL 120 MG ORAL TABLET completed ONE TAB. TWICE DAILY - Sammi Jerome magnesium oxide 400 mg magnesium tablet active once a day STOPPED BY DR. AMAURY [employer] Nancy Trevino NP CEPHALEXIN 500 MG ORAL [...] pk Nancy Trevino NP cigarette use yes Nancy palacio NP smoking status Former smoker Nancy Salazar iman BIOMEDICAL SERVICE ENGINEER Exercise counseling Yes Nancy Uriel BIOMEDICAL SERVICE ENGINEER personal history of marijuana use no Riley Adamereri BIOMEDICAL SERVICE ENGINEER drug use no Riley Adamereri BIOMEDICAL SERVICE ENGINEER alcohol use no Riley Bonareri BIOMEDICAL SERVICE ENGINEER passive cigarette sm daniel exposure yes Riley Adamereri BIOMEDICAL SERVICE ENGINEER smoking, year quit 1981 Riley Lofton areri BIOMEDICAL SERVICE ENGINEER number of years as a smoker 10 years or m ore Riley Adamereri BIOMEDICAL SERVICE ENGINEER smoking history, tot al pack/year 7.5 Riley Adamereri BIOMEDICAL SERVICE ENGINEER smoking history, tot al pack/day 1 pk Riley Adamereri BIOMEDICAL SERVICE ENGINEER cigarette use yes Riley Adamereri BIOMEDICAL SERVICE ENGINEER smoking status Former smoker Riley Adamere ri BIOMEDICAL SERVICE ENGINEER drug use no Francisco Carla alcohol use [...] ewed - no changes required Riley Adamereri BIOMEDICAL SERVICE ENGINEER social history E&M Marital Statu s: E thnicity: Smoking History: Khadra farrell is a former smoker. Riley Adamereri BIOMEDICAL SERVICE ENGINEER drug use no Riley Bonareri BIOMEDICAL SERVICE ENGINEER alcohol use no Riley Bonareri BIOMEDICAL SERVICE ENGINEER smoking status Former smoker Riley Aadmere ri BIOMEDICAL SERVICE ENGINEER social history E&M Marital Statu s: E thnicity: Smoking History: P bud has never smoked. Rangel Slaughter MD social history reviewed E&M revi ewed - no changes required Rangel Slaughter MD smoking status Never smoker Jenni Miner social history reviewed E&M revi ewed - [...] exercise, f requency, days per week [facility] use, averag e drinks per day 0 /d [employer] passive cigarette sm daniel exposure yes [facility] smoking status Former smoker [facility] smoking status Former smoker Effie Jean Marie ha BIOMEDICAL SERVICE ENGINEER social history E&M Marital Statu s: E [...] alcohol use, average drinks per day none [place] [facility] alcohol use no [place] caffeine use, averag e drinks per day no [place] drug use none passive cigarette sm daniel exposure yes [place] smoking status Former smoker [facility] social history reviewed E&M revi ewed [...] Cassia Martel alcohol use no Cassia Radha [facility] caffeine use, averag e drinks per day no Cassia Martel drug use none Cassiaadelina Garcia [facility] passive cigarette sm daniel exposure yes Cassia [...] Sabina Hunter drug use none Sabina Barrera [facility] passive cigarette sm daniel exposure yes Sabina [...] use, average drinks per day none [facility] alcohol use no [facility] caffeine use, averag e drinks per day no [facility] drug use none [facility] passive cigarette sm daniel exposure yes [facility] smoking/tobacco cess ation, patient education and counseling yes [facility] smoking status Former smoker Judy Stoddard [...] or m ore [employer] smoking status Quit [facility] FUNCTIONAL STATUS Date Observation Value Provider HRA, [...] Payer name Policy type / Coverage type [place] [employer] party ID [facility] [id number] [place] Medicare [id number] ADVANCE DIRECTIVES Name Date DISCUSSED - NO DECISION MADE TREATMENT PLAN Date Name Performer [id number],C,ef 60 pro 239 Rangel Slaughter MD [id number],C,On Vit D supp lements Riley Pollock NP [id number],C, H is updated medication list for this problem includes: Atorvastatin 40 Mg Tablet (Atorvastatin) ..... Take 1 tablet every day Vascepa 1 Gram Capsule (Icosapent ethyl) ..... Take 2 capsules by mouth twice a day Riley Pollock NP [id number],C,M anaged per PCP. H is updated medication list for this problem includes: Metformin 750 Mg Tablet Extended Release 24 Hr (Metformin) ..... Take one tablet by mouth daily Losartan 50 Mg Tablet (Losartan) ..... Take 1 tablet twice daily Riley Pollock NP [id number],C, H is updated medication list for this problem includes: Atorvastatin 40 Mg Tablet (Atorvastatin) ..... Take 1 tablet every day Vascepa 1 Gram Capsule (Icosapent ethyl) ..... Take 2 capsules by mouth twice a day Riley Pollock NP [id number],C,E KG in office today V-paced. On OAC, denies having any bleeding issues/concerns. His updated medication list for this problem includes: Carvedilol 25 Mg Tablet (Carvedilol) ..... Take 1 tablet twice daily Sotalol 120 Mg Tablet (Sotalol) ..... Take 1 tablet twice daily Riley Pollock JOHNNIE [id number],C,W ill repeat Echo in 07/2023 C ONCLUSIONS: [...] 1 tablet twice daily Riley Pollock JOHNNIE [id number],C,R PM Avg BP 121/73, HR 81 H is updated medication list for this problem includes: Carvedilol 25 Mg Tablet (Carvedilol) ..... Take 1 tablet twice daily Sotalol 120 Mg Tablet (Sotalol) ..... Take 1 tablet twice daily Losartan 50 Mg Tablet (Losartan) ..... Take 1 tablet twice daily Riley Pollock JOHNNIE [id number],C,Patient is on statin Riley Wilderadelina BLAIR [id number],C,D evice check 11/28/22 A T/AF [place]: 0.0% % Pacing: RA - 98.0% RV - 100.0% LV - 100.0% B attery 90% Riley Pollock BIOMEDICAL SERVICE ENGINEER [id number],C, H is updated medication list for this problem includes: Carvedilol 25 Mg Tablet (Carvedilol) ..... Take 1 tablet twice daily Sotalol 120 Mg Tablet (Sotalol) ..... Take 1 tablet twice daily Riley Pollock BIOMEDICAL SERVICE ENGINEER [id number],S, H is updated medication list for this problem includes: Atorvastatin 40 Mg Tablet (Atorvastatin) ..... Take 1 tablet every day Vascepa 1 Gram Capsule (Icosapent ethyl) ..... 2 capsule by mouth twice a day C HOL: 103 (04/17/2018) HDL: 26 (04/17/2018) CHOL (goal): 200 (10/09/2010) LDL (goal): 70 (10/09/2010) HDL (goal): 40 (10/09/2010) TG (goal): 150 (10/09/2010) Rangel Slaughter MD [id number],S, Rangel watts MD [id number],S, n o angina. last cath 2018 grafts open Rangel Slaughter MD [id number],B, Rangel watts MD [id number],S, n o recurrence. device interrogation 04/17/21 no AF, 17 mode switches, battery ok.\ Rangel Slaughter MD [id number],S,too have suer gy Rangel Slaughter MD [id number],B, Rangel watts MD [id number],S, fu zerot psa Rangel Slaughter MD [id number],S, Rangel watts MD [id number],C,74 Rangel conrad MD [id number],B,7 Rangel wise MD [id number],S, r a set 80, biv 100 Rangel Slaughter MD [id number],S, 9 Rangel Serota [id number],B, fu zerot psa Rangel Serota [id number],B, Rangel Serot a [id number],C, n eg uacr, neg hiv n eg sleep, neg aaa, ne ror n eg pft and tsh Rangel Serota [id number],S, Rangel Serota [id number],B, c orredct with iv does not want colon Rangel Serota [id number],S, Rangel Serot a [id number],B, Rangel Serot a [id number],S, e f 60 490 pro Rangel Serota [id number],B, 2 3 Rangel Serota [id number],S, Rangel Serota [id number],S, n o angina. last cath 2018 grafts open Rangel Serota [id number],S, n o angina. last cath 2018 grafts open Rangel Serota [id number],S, r a set 80, biv 100 Rangel Serota [id number],S,23 Rangel Ser anamaria [id number],S,fu zerot psa Rangel Serota [id number],S, Rangel Serot a [id number],B,9 Rangel Sero ta [id number],B,ra set 80, bi v 100 Rangel Serota [id number],S, n eg uacr, neg hiv n eg sleep, neg aaa, ne ror n eg pft and tsh Rangel Slaughter MD [id number],S,ef 60 490 pro Rangel Slaughter MD [id number],S, c orredct with iv does not want colon Rangel Slaughter MD [id number],B, H is updated medication list for this problem includes: Vascepa 1 Gram Capsule (Icosapent ethyl) ..... 2 capsule by mouth twice a day Atorvastatin 40 Mg Tablet (Atorvastatin) ..... Take 1 tablet once a day C HOL: 103 (04/17/2018) HDL: 26 (04/17/2018) CHOL (goal): 200 (10/09/2010) LDL (goal): 70 (10/09/2010) HDL (goal): 40 (10/09/2010) TG (goal): 150 (10/09/2010) Rangel Slaughter MD [id number],B, Rangel watts MD [id number],C,follows with PCP Nancy Trevino NP [id number],C,last device c heck 04/2021 no afib Nancy Trevino NP [id number],C, l ast echo 11/2019 EF 65% diastolic dysfunction Nancy Trevino NP [id number],C,B P today 160/90. pt states that at home he runs 130's-140's Nancy Trevino NP [id number],C, l ast device check 04/17/2021 normal function, no AF. 17 mode switches, battery ok 2yrs, 1 month. Nancy Trevino NP [id number],C,n o angina. last cath 2018 grafts open Nancy Trevino NP [id number],C,09/2020 LFTs n ormal Nancy Trevino NP [id number],C,o n supplementation Nancy Trevino BIOMEDICAL SERVICE ENGINEER [id number],C,n o recurrence. device interrogation 04/17/21 no AF, 17 mode switches, battery ok. 2 yrs/1 month Nancy Trevino BIOMEDICAL SERVICE ENGINEER [id number],C,: chol 124, trig 214, HDL 28, LDL 53. pt states that he has not been taking vascepa Nancy Trevino BIOMEDICAL SERVICE ENGINEER Take your medication s every day as [...] bleeding issues/concerns s /p ppm Nancy Trevino BIOMEDICAL SERVICE ENGINEER Electrophysiology: B P today: 132/70 P rior [...] pro 239 Clinically appears compensated Riley Pollock BIOMEDICAL SERVICE ENGINEER Cardiology: N o angina His updated medication [...] pro 239 Rangel Slaughter MD Cardiology-seen with BIOMEDICAL SERVICE ENGINEER:On Vit D supplements Riley Pollock NP Cardiology-seen with BIOMEDICAL SERVICE ENGINEER: H is updated medication list for this problem includes: Atorvastatin 40 Mg Tablet (Atorvastatin) ..... Take 1 tablet every day Vascepa 1 Gram Capsule (Icosapent ethyl) ..... Take 2 capsules by mouth twice a day Riley Pollock NP Cardiology-seen with BIOMEDICAL SERVICE ENGINEER:Managed per PCP. H is updated medication list for this problem includes: Metformin 750 Mg Tablet Extended Release 24 Hr (Metformin) ..... Take one tablet by mouth daily Losartan 50 Mg Tablet (Losartan) ..... Take 1 tablet twice daily Riley Pollock NP Cardiology-seen with BIOMEDICAL SERVICE ENGINEER: H is updated medication list for this problem includes: Atorvastatin 40 Mg Tablet (Atorvastatin) ..... Take 1 tablet every day Vascepa 1 Gram Capsule (Icosapent ethyl) ..... Take 2 capsules by mouth twice a day Riley Pollock NP Cardiology-seen with BIOMEDICAL SERVICE ENGINEER:EKG in office today V-paced. On OAC, denies having any bleeding issues/concerns. His updated medication list for this problem includes: Carvedilol 25 Mg Tablet (Carvedilol) ..... Take 1 tablet twice daily Sotalol 120 Mg Tablet (Sotalol) ..... Take 1 tablet twice daily Riley Pollock NP Cardiology-seen with BIOMEDICAL SERVICE ENGINEER:Will repeat Echo in 07/2023 C ONCLUSIONS: Echo [...] twice daily Riley Pollock NP Cardiology-seen with BIOMEDICAL SERVICE ENGINEER:RPM Avg BP 121/73, HR 81 H is updated medication list for this problem includes: Carvedilol 25 Mg Tablet (Carvedilol) ..... Take 1 tablet twice daily Sotalol 120 Mg Tablet (Sotalol) ..... Take 1 tablet twice daily Losartan 50 Mg Tablet (Losartan) ..... Take 1 tablet twice daily Riley Pollock NP Cardiology-seen with BIOMEDICAL SERVICE ENGINEER:Patient is on statin Riley Pollock NP Cardiology-seen with BIOMEDICAL SERVICE ENGINEER:Device check 11/28/22 A T/AF [place]: 0.0% % Pacing: RA - 98.0% RV - 100.0% LV - 100.0% B attery 90% Riley Pollock NP Cardiology-seen with BIOMEDICAL SERVICE ENGINEER: H is updated medication list for this [...] 2018 grafts open Rangel Slaughter MD Cardiology: r a set [...] device check 04/11 no afib Nancy Trevino BIOMEDICAL SERVICE ENGINEER Cardiology: l ast echo 11/2019 EF 65% diastolic dysfunction Nancy Trevino BIOMEDICAL SERVICE ENGINEER Cardiology:BP today 160/90. pt states that at home he runs 130's-140's Nancy Trevino BIOMEDICAL SERVICE ENGINEER Cardiology: l ast device check 04/17/2021 normal function, no AF. 17 mode switches, battery ok 2yrs, 1 month. Nancy Trevino BIOMEDICAL SERVICE ENGINEER Cardiology:no angina . last cath 2018 grafts open Nancy Trevino BIOMEDICAL SERVICE ENGINEER Cardiology:09/2020 LFTs normal Je wild Trevino BIOMEDICAL SERVICE ENGINEER Cardiology:on supple mentation Nancy Trevino JOHNNIE Cardiology:no [...] twice daily --gwen! universal coupon code: bin# [id number], pcn# [id number], grp# [id number], id# [id number] Atorvastatin Tab 40mg Tablet (Atorvastatin calcium) ..... [...] by mouth twice a day Effie Friedman BIOMEDICAL SERVICE ENGINEER Cardiology:last yvan ce check 09/27/2020 normal function, 100 % dependent RV and LV. Effie Friedman BIOMEDICAL SERVICE ENGINEER Cardiology Effie Friedman BIOMEDICAL SERVICE ENGINEER Cardiology: H is updated medication list for [...] MD Electrophysiology:Or ders: 9 9214 MOD Complex (CPT-41304) His updated medication list for this problem includes: Sotalol Hcl 120 Mg Oral Tablet (Sotalol hcl) ..... One tab. twice daily Metoprolol Tartrate 25 Mg Oral Tablet (Metoprolol tartrate) ..... One tab. twice daily Jesus Reyes Electrophysiology:Or ders: F VC - 85056 (12965) F RC - 34335 (40632) D LCO - 58013 (02807) 9 9214 MOD Complex (CPT-24388) His updated medication list for this problem [...] ICD upgrade recommended. O rders: E KG (CPT-68929) 9 9214 MOD Complex (CPT-01634) His updated medication list for this problem includes: Sotalol Hcl 120 Mg Oral Tablet (Sotalol hcl) ..... One tab. twice daily Metoprolol Tartrate 25 Mg Oral Tablet (Metoprolol tartrate) ..... One tab. twice daily Jesus Eric Electrophysiology:Or ders: 9 9214 MOD Complex (CPT-78866) His updated medication list for this problem includes: Sotalol Hcl 120 Mg Oral Tablet (Sotalol hcl) ..... One tab. twice daily Metoprolol Tartrate 25 Mg Oral Tablet (Metoprolol tartrate) ..... One tab. twice daily Jesus Reyes Cardiology follow up :Orders: C ardiac Cath - L/R- [facility] (*) 9 9215 HIGH Complex (CPT-28630) Jesus Simmonson Cardiology follow up :Seen acutely for documented VT on pacer check today. Plan for cardiac cath KELSEA and possible upgrade from BiV PPM to BiV ICD. Orders: C OMPREHENSIVE METABOLIC PANEL, W/EGFR (80372) P ROBNP, N TERMINAL (98001) C BC (H/H, RBC, INDICES, WBC, PLT) (1759) L IPID PANEL (7600) T HYROID PANEL WITH TSH, 3RD GENERATION (7444) P artial Thromboplastin Time, Activated (763) P ROTHROMBIN TIME WITH INR (8847) C ardiac Cath - L/R- [facility] (*) 9 9215 HIGH Complex (CPT-16297) His updated medication list for this problem includes: Sotalol Hcl 120 Mg Oral Tablet (Sotalol hcl) ..... One tab. twice daily Metoprolol Tartrate 25 Mg Oral Tablet (Metoprolol tartrate) ..... One tab. twice daily Jesusus Reyes Cardiology follow up :Orders: C ardiac Cath - L/R- [facility] (*) 9 9215 HIGH Complex (CPT-76247) His updated medication list for this problem [...] MD Cardiology Follow u p:in sinus, had [id number] Rangel Slaughter MD Cardiology Follow u p: [...] p: O rders: A ortic Abdominal Ultrasound (CPT-41242) Rangel Slaughter MD Cardiology Follow u p Rangel conrad [...] Slaughter MD EP:Orders: A ortic Abdominal Ultrasound (CPT-75016) Rosario Fay MD EP:Orders: C arotid Duplex Bilateral (CPT-63372) Rosario Fay MD EP:Labs Reviewed: H gBA1c: 5.7 (06/16/2015) Creat: 1.0 (12/14/2015) His updated medication list for this problem includes: Cozaar 25 Mg Tabs (Losartan potassium) ..... One tab. daily Glimepiride 2 Mg Tabs (Glimepiride) ..... Once daily Orders: S NOMED-CT: [id number] Current Medications Documented ([facility]-[id number]) C OMPREHENSIVE METABOLIC PANEL W/EGFR (08791) H EMOGLOBIN A1c (496) Rosario Fay MD EP:Orders: S NOMED-CT: [id number] Current Medications Documented ([facility]-[id number]) C OMPREHENSIVE METABOLIC PANEL W/EGFR (00412) L IPID PANEL (7810) Rosario Fay MD EP:BP today: 154/80 P [...] Pulmonary Function Rangel Slaughter MD :1. LARGE [id number] LAR JOINT EFFUSION. 2 . TRICOMPARTMENTAL OSTEOARTHRITIS, [id number] AT MEDIAL FEMOROTIBIAL JOINT. 3 . INFRAPATELLAR [...] stop diaphramigic stim, 100% biv paced Rangel Slaughter MD ppm check & fu:WIll recommence hyzaar. AF burden on device interrogation was 10%. WIll recheck in 6 months in office. If his bruden increases then will plan for Afib ablation. Orders: 9 9215 HIGH Complex (CPT-10516) Rosario Fay MD follow up Rangel Slaughter [...] % RCA stenosis: 99% proixmal, 80% distal. [facility] (12/19/2003) H gb: 15.9 (11/11/2010) HCT: [...] % RCA stenosis: 99% proixmal, 80% distal. [facility] (12/19/2003) C arotid Doppler/Duplex: Mild plaque [...] Follow up: O rders: C omplete Echo (CPT-05982) Rangel Slaughter MD Follow up: O rders: C omplete Echo (CPT-75731) Rangle Slaughter MD Follow up: H is updated medication list for this problem includes: Altace 10 Mg Caps (Ramipril) ..... One tab. daily Sotalol Hcl 120 Mg Tabs (Sotalol hcl) ..... One tab. twice daily Orders: C omplete Echo (CPT-93305) Rangel Slaughter MD Follow up: O rders: C omplete Echo (CPT-75141) Rangel Slaughter MD Follow up: H is [...] reveiwe d: O rders: C omplete Echo (CPT-40367) Rangel Slaughter MD clindesk not reveiwe d: O rders: C omplete Echo (CPT-95555) Rangel Slaughter MD [employer]esk not reveiwe d: H is updated medication list for this problem includes: Cozaar 100 Mg Tabs (Losartan potassium) ..... One tab. daily Orders: C omplete Echo (CPT-73970) Rangel Slaughter MD [employer] not reveiwe d: O rders: C omplete Echo (CPT-96270) Rangel Slaughter MD [employer] not reveiwe d: O rders: C omplete Echo (CPT-43751) Rangel Slaughter MD [employer] not reveiwe d: [...] % RCA stenosis: 99% proixmal, 80% distal. [facility] (12/19/2003) H gb: 15.9 (11/11/2010) HCT: [...] % RCA stenosis: 99% proixmal, 80% distal. [facility] (12/19/2003) C HOL: 88 (06/09/2012) LDL: [...] ..... One tab. daily Orders: E KG (CPT-37148) BP today: 132/88 P rior BP: 159/75 [...] % RCA stenosis: 99% proixmal, 80% distal. [facility] (12/19/2003) C HOL: 88 (06/09/2012) LDL: [...] bedtime - dispense as written (changed 10/09) Rangle Slaughter MD routine Rangel Slaughter MD routine [...] Caps (Ramipril) ..... One tab. daily(changed 10/09) Rangle Slaughter MD routine : His updated medication [...] over [facility] supply. SUSIE ANDERSON NP routine Ragnel Slaughter MD routine : H is updated [...] scintigraphic evidence of myocardial ischemia or scar. [facility] (01/04/2009) C ardiac Cath: EF - 60% M oderate hypokinesis of the anterolateral segment. N ormal left heart hemodynamics. % Left Main stenosis: 50% left main. % CX stenosis: 50% proximal. % 1st Diagonal stenosis: 80% proximal % LAD stenosis: 40% mid % RCA stenosis: 99% proixmal, 80% distal. [facility] (12/19/2003) B UN: 16 (09/05/2009) Creat: [...] tab with evening meal. Rangel Slaughter MD routine : H is [...] evidence of myocardial ischemia or scar. [facility] (01/04/2009) E chocardiogram: Patient is in atrial [...] % RCA stenosis: 99% proixmal, 80% distal. [facility] (12/19/2003) B UN: 16 (09/05/2009) Creat: [...] evidence of myocardial ischemia or scar. [facility] (01/04/2009) C ardiac Cath: EF - 60% M oderate hypokinesis of the anterolateral segment. N ormal left heart hemodynamics. % Left Main stenosis: 50% left main. % CX stenosis: 50% proximal. % 1st Diagonal stenosis: 80% proximal % LAD stenosis: 40% mid % RCA stenosis: 99% proixmal, 80% distal. [facility] (12/19/2003) T SH: 1.60 (05/17/2009) T4 [...] evidence of myocardial ischemia or scar. [facility] (01/04/2009) C ardiac Cath: EF - 60% M oderate hypokinesis of the anterolateral segment. N ormal left heart hemodynamics. % Left Main stenosis: 50% left main. % CX stenosis: 50% proximal. % 1st Diagonal stenosis: 80% proximal % LAD stenosis: 40% mid % RCA stenosis: 99% proixmal, 80% distal. [facility] (12/19/2003) T SH: 1.60 (05/17/2009) T4 [...] evidence of myocardial ischemia or scar. [facility] (01/04/2009) E chocardiogram: Normal LV size. Moderate [...] % RCA stenosis: 99% proixmal, 80% distal. [facility] (12/19/2003) T SH: 1.60 (05/17/2009) T4 [...] (03/15/2009) Orders: H olter Monitor 24 Hr (CPT-79689) Rangel Slaughter MD sotolol stopped due to [...] evidence of myocardial ischemia or scar. [facility] (01/04/2009) C ardiac Cath: EF - 60% M oderate hypokinesis of the anterolateral segment. N ormal left heart hemodynamics. % Left Main stenosis: 50% left main. % CX stenosis: 50% proximal. % 1st Diagonal stenosis: 80% proximal % LAD stenosis: 40% mid % RCA stenosis: 99% proixmal, 80% distal. [facility] (12/19/2003) Orders: H olter Monitor 24 Hr (CPT-38426) Rangel Slaughter MD sotolol stopped due to slow hr: H is updated medication list for this problem includes: Niaspan 1000 Mg Tbcr (Niacin (antihyperlipidemic)) ..... Two tabs. at bedtime Caduet 5-10 Mg Tabs (Amlodipine-atorvastatin) ..... One tab. daily BP today: 144/73 Prior BP: 135/73 (03/15/2009) Orders: H olter Monitor 24 Hr (CPT-78039) Rangel Slaughter MD sotolol stopped due to slow hr: O rders: H olter Monitor 24 Hr (CPT-05434) Rangel Slaughter MD sotolol stopped due to slow hr: H is updated medication list for this problem includes: Altace 10 Mg Caps (Ramipril) ..... One tab. daily Caduet 5-10 Mg Tabs (Amlodipine-atorvastatin) ..... One tab. daily Aspirin 325 Mg Tabs (Aspirin) ..... One tab daily BP today: 144/73 P rior BP: 135/73 (03/15/2009) Orders: H olter Monitor 24 Hr (CPT-50459) Rangel Slaughter MD sotolol stopped due to [...] evidence of myocardial ischemia or scar. [facility] (01/04/2009) C ardiac Cath: EF - 60% M oderate hypokinesis of the anterolateral segment. N ormal left heart hemodynamics. % Left Main stenosis: 50% left main. % CX stenosis: 50% proximal. % 1st Diagonal stenosis: 80% proximal % LAD stenosis: 40% mid % RCA stenosis: 99% proixmal, 80% distal. [facility] (12/19/2003) Orders: H olter Monitor 24 Hr (CPT-94985) Rangel Slaughter MD sotolol stopped due to slow hr: H is updated medication list for this problem includes: Altace 10 Mg Caps (Ramipril) ..... One tab. daily Aspirin 325 Mg Tabs (Aspirin) ..... One tab daily Multaq 400 Mg Tabs (Dronedarone hcl) ..... One tab with morning meal. one tab with evening meal. Orders: H olter Monitor 24 Hr (CPT-03567) Rangel Slaughter MD sotolol stopped due to slow hr: H is updated medication list for this problem includes: Aspirin 325 Mg Tabs (Aspirin) ..... One tab daily Multaq 400 Mg Tabs (Dronedarone hcl) ..... One tab with morning meal. one tab with evening meal. Orders: T HYROID PANEL WITH TSH, 3RD GENERATION (7444) H olter Monitor 24 Hr (CPT-75189) Rangel Slaughter MD afib will increase s otolol and reholter and fu: O rders: H olter Monitor 24 Hr (CPT-75343) Rangel Slaughter MD afib will increase s otolol and reholter and fu: H is updated medication list for this problem includes: Altace 10 Mg Caps (Ramipril) ..... One tab. daily Glimepiride 2 Mg Tabs (Glimepiride) ..... 1 tablet by mouth daily Aspirin 325 Mg Tabs (Aspirin) ..... One tab daily BP today: 135/73 Prior BP: 142/72 (02/01/2009) Orders: H olter Monitor 24 Hr (CPT-13962) Rangel Slaughter MD afib will increase s [...] evidence of myocardial ischemia or scar. [facility] (01/04/2009) C ardiac Cath: EF - 60% M oderate hypokinesis of the anterolateral segment. N ormal left heart hemodynamics. % Left Main stenosis: 50% left main. % CX stenosis: 50% proximal. % 1st Diagonal stenosis: 80% proximal % LAD stenosis: 40% mid % RCA stenosis: 99% proixmal, 80% distal. [facility] (12/19/2003) Orders: H olter Monitor 24 Hr (CPT-08842) Rangel Slaughter MD afib will increase s otolol and reholter and fu: H is updated medication list for this problem includes: Niaspan 1000 Mg Tbcr (Niacin (antihyperlipidemic)) ..... Two tabs. at bedtime Caduet 5-10 Mg Tabs (Amlodipine-atorvastatin) ..... One tab. daily BP today: 135/73 Prior BP: 142/72 (02/01/2009) Orders: H olter Monitor 24 Hr (CPT-14550) Rangel Slaughter MD afib will increase s otolol and reholter and fu: O rders: H olter Monitor 24 Hr (CPT-84404) Rangel Slaughter MD afib will increase s [...] evidence of myocardial ischemia or scar. [facility] (01/04/2009) C ardiac Cath: EF - 60% M oderate hypokinesis of the anterolateral segment. N ormal left heart hemodynamics. % Left Main stenosis: 50% left main. % CX stenosis: 50% proximal. % 1st Diagonal stenosis: 80% proximal % LAD stenosis: 40% mid % RCA stenosis: 99% proixmal, 80% distal. [facility] (12/19/2003) Orders: H olter Monitor 24 Hr (CPT-25471) Rangel Slaughter MD afib will increase s [...] (02/01/2009) Orders: H olter Monitor 24 Hr (CPT-12479) Rangel Slaughter MD afib will increase s otolol and reholter and fu: H is updated medication list for this problem includes: Altace 10 Mg Caps (Ramipril) ..... One tab. daily Aspirin 325 Mg Tabs (Aspirin) ..... One tab daily Sotalol Hcl 80 Mg Tabs (Sotalol hcl) ..... 1 tablet by mouth twice daily Orders: H olter Monitor 24 Hr (CPT-33967) Rangel Slaughter MD afib will increase s otolol and reholter and fu: H is updated medication list for this problem includes: Aspirin 325 Mg Tabs (Aspirin) ..... One tab daily Sotalol Hcl 80 Mg Tabs (Sotalol hcl) ..... 1 tablet by mouth twice daily Orders: H olter Monitor 24 Hr (CPT-12104) Rangel Slaughter MD paf stable will increase [...] evidence of myocardial ischemia or scar. [facility] (01/04/2009) C ardiac Cath: EF - 60% M oderate hypokinesis of the anterolateral segment. N ormal left heart hemodynamics. % Left Main stenosis: 50% left main. % CX stenosis: 50% proximal. % 1st Diagonal stenosis: 80% proximal % LAD stenosis: 40% mid % RCA stenosis: 99% proixmal, 80% distal. [facility] (12/19/2003) Orders: C omplete Echo (CPT-96057) Rangel Slaughter MD paf, stable will inc rease sotolol and repeat holter: H is updated medication list for this problem includes: Aspirin 325 Mg Tabs (Aspirin) ..... One tab daily Sotalol Hcl 80 Mg Tabs (Sotalol hcl) ..... 1/2 tablet by mouth twice daily Orders: H olter Monitor 24 Hr (CPT-72379) Rangel Slaughter MD paf, stable will inc [...] evidence of myocardial ischemia or scar. [facility] (01/04/2009) C ardiac Cath: EF - 60% M oderate hypokinesis of the anterolateral segment. N ormal left heart hemodynamics. % Left Main stenosis: 50% left main. % CX stenosis: 50% proximal. % 1st Diagonal stenosis: 80% proximal % LAD stenosis: 40% mid % RCA stenosis: 99% proixmal, 80% distal. [facility] (12/19/2003) Rangel Slaughter MD paf, stable [...] mitral regurgitation. T race tricuspid regurgitation. [facility] (12/01/2006) N uclear Stress Findings: The test is considered to be negative by ECG criteria. [facility] (02/20/2004) C ardiac Cath: EF - 60% M oderate hypokinesis of the anterolateral segment. N ormal left heart hemodynamics. % Left Main stenosis: 50% left main. % CX stenosis: 50% proximal. % 1st Diagonal stenosis: 80% proximal % LAD stenosis: 40% mid % RCA stenosis: 99% proixmal, 80% distal. [facility] (12/19/2003) Rangel Slaughter MD paf, won [...] to be negative by ECG criteria. [facility] (02/20/2004) C ardiac Cath: EF - 60% M oderate hypokinesis of the anterolateral segment. N ormal left heart hemodynamics. % Left Main stenosis: 50% left main. % CX stenosis: 50% proximal. % 1st Diagonal stenosis: 80% proximal % LAD stenosis: 40% mid % RCA stenosis: 99% proixmal, 80% distal. [facility] (12/19/2003) Rangel Slaughter MD chauncey won work up: H is updated medication list for this problem includes: Aspirin 325 Mg Tabs (Aspirin) ..... One tab daily Tenormin 25 Mg Tabs (Atenolol) ..... One tab. daily to prevent atrial fib. BP today: 158/80 Prior BP: 127/78 (12/14/2008) N uclear Stress Findings: The test is considered to be negative by ECG criteria. [facility] (02/20/2004) E chocardiogram: EF - 60%. M Ild distal septal hypokinesis of the left ventricle. M Ild diastolic dysfunction. T hickened mitral valve. T hickened aortic valve. T race mitral regurgitation. T race tricuspid regurgitation. [facility] (12/01/2006) C ardiac Cath: EF - 60% M oderate hypokinesis of the anterolateral segment. N ormal left heart hemodynamics. % Left Main stenosis: 50% left main. % CX stenosis: 50% proximal. % 1st Diagonal stenosis: 80% proximal % LAD stenosis: 40% mid % RCA stenosis: 99% proixmal, 80% distal. [facility] (12/19/2003) Orders: H olter Monitor 24 Hr (CPT-38271) Rangel Slaughter MD won grossman work up: H is updated medication list for this problem includes: Niaspan 1000 Mg Tbcr (Niacin (antihyperlipidemic)) ..... Two tabs. at bedtime Caduet 5-10 Mg Tabs (Amlodipine-atorvastatin) ..... One tab. daily BP today: 158/80 Prior BP: 127/78 (12/14/2008) Rangel Slaughter MD paf, won work up Rangel Perez chauncey, won work up: H is updated medication [...] to be negative by ECG criteria. [facility] (02/20/2004) C ardiac Cath: EF - 60% M oderate hypokinesis of the anterolateral segment. N ormal left heart hemodynamics. % Left Main stenosis: 50% left main. % CX stenosis: 50% proximal. % 1st Diagonal stenosis: 80% proximal % LAD stenosis: 40% mid % RCA stenosis: 99% proixmal, 80% distal. [facility] (12/19/2003) Rangel Slaughter MD paf, won [...] to be negative by ECG criteria. [facility] (02/20/2004) C ardiac Cath: EF - 60% M oderate hypokinesis of the anterolateral segment. N ormal left heart hemodynamics. % Left Main stenosis: 50% left main. % CX stenosis: 50% proximal. % 1st Diagonal stenosis: 80% proximal % LAD stenosis: 40% mid % RCA stenosis: 99% proixmal, 80% distal. [facility] (12/19/2003) Rangel Slaughter MD stable cad: [...] ..... One tab. daily Orders: Complete Echo (CPT-03318) BP today: 127/78 Prior BP: / () N uclear Stress Findings: The test is considered to be negative by ECG criteria. [facility] (02/20/2004) C ardiac Cath: EF - 60% M oderate hypokinesis of the anterolateral segment. N ormal left heart hemodynamics. % Left Main stenosis: 50% left main. % CX stenosis: 50% proximal. % 1st Diagonal stenosis: 80% proximal % LAD stenosis: 40% mid % RCA stenosis: 99% proixmal, 80% distal. [facility] (12/19/2003) Rangel Slaughter MD stable cad: H is updated medication list for this problem includes: Niaspan 1000 Mg Tbcr (Niacin (antihyperlipidemic)) ..... Two tabs. at bedtime Altace 10 Mg Caps (Ramipril) ..... One tab. daily Caduet 5-10 Mg Tabs (Amlodipine-atorvastatin) ..... One tab. daily Aspirin 81 Mg Tabs (Aspirin) ..... One tab. daily Orders: S tress Test - Nuclear (08051) BP today: 127/78 Prior BP: / () N uclear Stress Findings: The test is considered to be negative by ECG criteria. [facility] (02/20/2004) C ardiac Cath: EF - 60% M oderate hypokinesis of the anterolateral segment. N ormal left heart hemodynamics. % Left Main stenosis: 50% left main. % CX stenosis: 50% proximal. % 1st Diagonal stenosis: 80% proximal % LAD stenosis: 40% mid % RCA stenosis: 99% proixmal, 80% distal. [facility] (12/19/2003) Rangel Slaughter MD stable cad Rangel Slaughter MD stable cad: H is updated medication list for this problem includes: Altace 10 Mg Caps (Ramipril) ..... One tab. daily Caduet 5-10 Mg Tabs (Amlodipine-atorvastatin) ..... One tab. daily Aspirin 81 Mg Tabs (Aspirin) ..... One tab. daily Orders: E KG (CPT-21222) BP today: 127/78 Rangel Slaughter MD Date [...] TOTAL IRON BINDING CAPACITY FERRITIN DLCO - 21271 FRC - 72012 FVC - 62488 MAGNESIUM Cardiac Cath - L/R- SLHV PROTHROMBIN [...] Duplex Bilat eral Complete Echo DLCO - 65063 FRC - 22908 FVC - 96776 X-Ray, Chest, PA & L ateral DLCO - 69948 FRC - 93862 FVC - 91614 THYROID PANEL WITH T SH, 3RD GENERATION COMPREHENSIVE METABO LIC PANEL W/EGFR DLCO - 80125 FRC - 57528 FVC - 49471 Sleep Study Home X-Ray, Chest, PA & [...] Rangel Slaughter MD INTERROGATION REMOTE </90 D CUTTER OPERATOR BRICK REVIEW completed Pacemaker Interrogation, Remote (Prof) Rangel Slaughter MD INTERROGATION EVAL REMOTE </90 D 1/2/DEAN FOR STUDENT AFFAIRS LEAD P completed ICM Interrogation, Remote (Prof) [...] Rangel Serota MD INTERROGATION REMOTE </90 D CUTTER OPERATOR BRICK REVIEW completed Pacemaker Interrogation, Remote (Prof) Rangel Serota INTERROGATION EVAL REMOTE </90 D 1/2/DEAN FOR STUDENT AFFAIRS LEAD P completed ICM Interrogation, Remote (Prof) [...] Rangel Serota MD INTERROGATION REMOTE </90 D CUTTER OPERATOR BRICK REVIEW completed Pacemaker Interrogation, Remote (Prof) Rangel Serota MD INTERROGATION EVAL REMOTE </90 D 1/2/DEAN FOR STUDENT AFFAIRS LEAD P completed ICM Interrogation, Remote (Prof) [...] Rangel Slaughter MD INTERROGATION REMOTE </90 D CUTTER OPERATOR BRICK REVIEW completed Pacemaker Interrogation, Remote (Prof) Rangel Slaughter MD INTERROGATION EVAL REMOTE </90 D 1/2/DEAN FOR STUDENT AFFAIRS LEAD P completed FVC / MVV - 04300 Rosario guillermo MD completed FRC - 74989 Rosario craven MD completed SpO2 w/o 6min walk/titration Rosario Fay MD completed DLCO - 28888 Rosario craven MD completed EKG Rosario craven [...] Rangel Slaughter MD INTERROGATION REMOTE </90 D CUTTER OPERATOR BRICK REVIEW completed Pacemaker Interrogation, Remote (Prof) Rangel Slaughter MD INTERROGATION EVAL REMOTE </90 D 1/2/DEAN FOR STUDENT AFFAIRS LEAD P completed Regadenoson, 4 units Rangel [...] Rangel Slaughter MD INTERROGATION REMOTE </90 D CUTTER OPERATOR BRICK REVIEW completed Pacemaker Interrogation, Remote (Prof) Rangel Slaughter MD INTERROGATION EVAL REMOTE </90 D 1/2/DEAN FOR STUDENT AFFAIRS LEAD P completed ICM Interrogation, Remote (Prof) [...] Rangel Slaughter MD INTERROGATION REMOTE </90 D CUTTER OPERATOR BRICK REVIEW completed Pacemaker Interrogation, Remote (Prof) Rangel Slaughter MD INTERROGATION EVAL REMOTE </90 D 1/2/DEAN FOR STUDENT AFFAIRS LEAD P completed ICM Interrogation, Remote (Prof) [...] Rangel Slaughter MD INTERROGATION REMOTE </90 D CUTTER OPERATOR BRICK REVIEW completed Pacemaker Interrogation, Remote (Prof) Rangel Slaughter MD INTERROGATION EVAL REMOTE </90 D 1/2/DEAN FOR STUDENT AFFAIRS LEAD P completed ICM Interrogation, Remote (Prof) [...] Rangel Slaughter MD INTERROGATION REMOTE </90 D CUTTER OPERATOR BRICK REVIEW completed Pacemaker Interrogation, Remote (Prof) Rangel Slaughter MD INTERROGATION EVAL REMOTE </90 D 1/2/DEAN FOR STUDENT AFFAIRS LEAD P completed SNOMED-CT: [id number] Current Medications Documented Rangel Slaughter MD completed [...] Rangel Slaughter MD INTERROGATION REMOTE </90 D CUTTER OPERATOR BRICK REVIEW completed Pacemaker Interrogation, Remote (Prof) Rangel Slaughter MD INTERROGATION EVAL REMOTE </90 D 1/2/DEAN FOR STUDENT AFFAIRS LEAD P completed ICM Interrogation, Remote (Prof) [...] REMOTE </30 D TECH REVIEW completed SNOMED-CT: 76371238 Physical Exam, Performed: Pulse Exam of Foot Rosario Fay MD completed EKG Rosario craven MD completed SNOMED-CT: 406496543249930 Current Medications Documented Rosario Fay MD completed FVC - 30759 Rosario craven MD completed FRC - 59414 Rosario craven MD completed DLCO - 02137 Rosario craven MD completed ICM Interrogation, Remote (Prof) Rangel Slaughter MD INTERROGATION EVAL REMOTE </30 D CV MNTR SYS completed Pacemaker Interrogation, Remote (Tech) Rangel Slaughter MD INTERROGATION REMOTE </90 D CUTTER OPERATOR BRICK REVIEW completed Pacemaker Interrogation, Remote (Prof) Rangel Slaughter MD INTERROGATION EVAL REMOTE </90 D 1/2/DEAN FOR STUDENT AFFAIRS LEAD P completed ICM Interrogation, Remote (Prof) [...] Rangel Slaughter MD INTERROGATION REMOTE </90 D CUTTER OPERATOR BRICK REVIEW completed Pacemaker Interrogation, Remote (Prof) Rangel Slaughter MD INTERROGATION EVAL REMOTE </90 D 1/2/DEAN FOR STUDENT AFFAIRS LEAD P completed ICM Interrogation, Remote (Prof) [...] guillermo MD in 6 months completed SNOMED-CT: 549886816 Smoking Cessation Counseling Rosario Fay MD completed SNOMED-CT: 00338848 Physical Exam, Performed: Pulse Exam of Foot Rosario Fay MD completed EKG Rosario craven MD completed SNOMED-CT: 294917850006446 Current Medications Documented Rosario Fay MD completed ICM Interrogation, Remote (Prof) Rangel Slaughter MD INTERROGATION EVAL REMOTE </30 D CV MNTR SYS completed ICM Interrogation, Remote (Tech) Rangel Slaughter MD INTERROGATION EVAL REMOTE </30 D TECH REVIEW completed SNOMED-CT: 61539195 Physical Exam, Performed: Pulse Exam of Foot Rangel Slaughter MD completed SNOMED-CT: 508960372376995 Current Medications Documented Rangel Slaughter MD completed ICM Interrogation, Remote (Prof) Rangel Slaughter MD INTERROGATION EVAL REMOTE </30 D CV MNTR SYS completed Pacemaker Interrogation, Remote (Tech) Rangel Slaughter MD INTERROGATION REMOTE </90 D CUTTER OPERATOR BRICK REVIEW completed Pacemaker Interrogation, Remote (Prof) Rangel Slaughter MD INTERROGATION EVAL REMOTE </90 D 1/2/DEAN FOR STUDENT AFFAIRS LEAD P completed ICM Interrogation, Remote (Prof) Rangel Slaughter MD INTERROGATION EVAL REMOTE </30 D CV MNTR SYS completed ICM Interrogation, Remote (Tech) Rangel Slaughter MD INTERROGATION EVAL REMOTE </30 D TECH REVIEW completed FVC - 41332 Rosario craven MD completed FRC - 51176 Rosario craven MD completed DLCO - 52800 Rosario craven MD completed Schedule Followup Rosario guillermo MD 3 months completed SNOMED-CT: 605273239 Smoking Cessation Counseling Rosario Fay MD completed SNOMED-CT: 63959526 Physical Exam, Performed: Pulse Exam of Foot Rosario Fay MD completed EKG Rosario craven MD completed SNOMED-CT: 522240843347342 Current Medications Documented Rosario Fay MD completed ICM Interrogation, Remote (Prof) Rangel Slaughter MD INTERROGATION EVAL REMOTE </30 D CV MNTR SYS completed ICM Interrogation, Remote (Tech) Rangel Slaughter MD INTERROGATION EVAL REMOTE </30 D TECH REVIEW completed Pacemaker Interrogation, Remote (Tech) Rangel Slaughter MD INTERROGATION REMOTE </90 D CUTTER OPERATOR BRICK REVIEW completed Pacemaker Interrogation, Remote (Prof) Rangel Slaughter MD INTERROGATION EVAL REMOTE </90 D 1/2/DEAN FOR STUDENT AFFAIRS LEAD P completed Schedule Followup Rosario guillermo MD 3 months completed SNOMED-CT: 247517711 Smoking Cessation Counseling Rosario Fay MD completed SNOMED-CT: 93020448 Physical Exam, Performed: Pulse Exam of Foot Rosario Fay MD completed EKG Rosario craven MD completed SNOMED-CT: 444605775950581 Current Medications Documented Rosario Fay MD completed ICM Interrogation, Remote (Prof) Rangel Slaughter MD INTERROGATION EVAL REMOTE </30 D CV MNTR SYS completed ICM Interrogation, Remote (Tech) Rangel Slaughter MD INTERROGATION EVAL REMOTE </30 D TECH REVIEW completed Schedule Followup Rosario guillermo MD 3/4 weeks completed SNOMED-CT: 05592274 Physical Exam, Performed: Pulse Exam of Foot Rosario Fay MD completed SNOMED-CT: 136952136 Smoking Cessation Counseling Rosario Fay MD completed EKG Rosario craven MD completed SNOMED-CT: 211453077236959 Current Medications Documented Rosario Fay MD completed SNOMED-CT: 327515488809429 Current Medications Documented Rangel Slaughter MD completed SNOMED-CT: 690736861 Smoking Cessation Counseling Rosario Fay MD completed SNOMED-CT: 17394473 Physical Exam, Performed: Pulse Exam of Foot Rosario Fay MD completed Schedule Followup Rosario guillermo MD fu in [place] next thursday completed EKG Rosario craven MD completed SNOMED-CT: 177728618946829 Current Medications Documented Rosario Fay MD completed ICM Interrogation, Remote (Prof) Rangel Slaughter MD INTERROGATION EVAL REMOTE </30 D CV MNTR SYS completed ICM Interrogation, Remote (Tech) Rangel Slaughter MD INTERROGATION EVAL REMOTE </30 D TECH REVIEW completed FVC - 20150 Rangel Slaughter MD complet ed FRC - 94342 Rangel Slaughter MD complet ed DLCO - 00541 Rangel Slaughter MD comple tanja ICM Interrogation, Remote (Prof) Rangel Slaughter MD INTERROGATION EVAL REMOTE </30 D CV MNTR SYS completed Pacemaker Interrogation, Remote (Tech) Rangel Slaughter MD INTERROGATION REMOTE </90 D CUTTER OPERATOR BRICK REVIEW completed Pacemaker Interrogation, Remote (Prof) Rangel Slaughter MD INTERROGATION EVAL REMOTE </90 D 1/2/DEAN FOR STUDENT AFFAIRS LEAD P completed EKG Rosario craven MD [...] Rangel Slaughter MD INTERROGATION REMOTE </90 D CUTTER OPERATOR BRICK REVIEW completed Pacemaker Interrogation, Remote (Prof) Rangel Slaughter MD INTERROGATION EVAL REMOTE </90 D 1/2/DEAN FOR STUDENT AFFAIRS LEAD P completed ICM Interrogation, Remote (Prof) [...] Rangel Serotmac HUNTER INTERROGATION REMOTE </90 D CUTTER OPERATOR BRICK REVIEW completed Pacemaker Interrogation, Remote (Prof) Rangel Slaughter MD INTERROGATION EVAL REMOTE </90 D 1/2/DEAN FOR STUDENT AFFAIRS LEAD P completed ICM Interrogation, Remote (Prof) [...] (Tech) Rangel Serota INTERROGATION REMOTE </90 D CUTTER OPERATOR BRICK REVIEW completed Pacemaker Interrogation, Remote (Prof) Rangel Serota INTERROGATION EVAL REMOTE </90 D 1/2/DEAN FOR STUDENT AFFAIRS LEAD P completed ICM Interrogation, Remote (Prof) Rangel Serota INTERROGATION EVAL REMOTE </30 D CV MNTR SYS completed ICM Interrogation, Remote (Tech) Rangel Serota INTERROGATION EVAL REMOTE </30 D TECH REVIEW completed EKG Rosario craven MD completed ICM Interrogation, Remote (Prof) Rangel Serotmac HUNTER INTERROGATION EVAL REMOTE </30 D CV MNTR SYS completed Pacemaker Interrogation, Remote (Tech) Rangel Serota INTERROGATION REMOTE </90 D CUTTER OPERATOR BRICK REVIEW completed Pacemaker Interrogation, Remote (Prof) Rangel Serota INTERROGATION EVAL REMOTE </90 D 1/2/DEAN FOR STUDENT AFFAIRS LEAD P completed ICM Interrogation, Remote (Prof) Rangel Serota INTERROGATION EVAL REMOTE </30 D CV MNTR SYS completed Pacemaker Interrogation, Remote (Tech) Rangel Serota INTERROGATION REMOTE </90 D CUTTER OPERATOR BRICK REVIEW completed Pacemaker Interrogation, Remote (Prof) Rangel Serotmac HUNTER INTERROGATION EVAL REMOTE </90 D 1/2/DEAN FOR STUDENT AFFAIRS LEAD P completed ICM Interrogation, Remote (Prof) [...] (Tech) Rangel Serota INTERROGATION REMOTE </90 D CUTTER OPERATOR BRICK REVIEW completed Pacemaker Interrogation, Remote (Prof) Rangel Serota INTERROGATION EVAL REMOTE </90 D 1/2/DEAN FOR STUDENT AFFAIRS LEAD P completed ICM Interrogation, Remote (Prof) [...] Rangel Slaughter MD INTERROGATION REMOTE </90 D CUTTER OPERATOR BRICK REVIEW completed AICD Interrogation, Remote (Prof) Rangel [...] Fay MD PROGRM EVAL IMPLANTABLE IN PRSN DEAN FOR STUDENT AFFAIRS LD CARD/DFB completed TI, OPTIVOL, ICM Interrogation [...]
--- OUTSIDE RECORDS SUMMARY | 2024-10-31 19:35 | XMS_ITS | Clinical Summary ---
Author Organization [facility] Facility Address [address] [address] Care Team Providers Care Team Leader Surgery Name Role Phone Gege Jackson MD Primary Care Provider [phone] Medications Cholecalciferol 50 MCG (1999) capsule Take [...] Department Care Team Description 08/17/2024 Office Communication [facility], [address] [address] Ivan Bejarano DO from Last 3 Months Social History [...] age to complete this topic Insurance MEDICARE [facility] Care Teams Team Leader Surgery Relationship Specialty Start Date End Date Gege Jackson MD [address] [place] [address], [address] [place] [address] PCP - General Internal Medicine 03/12/21
--- OUTSIDE RECORDS SUMMARY | 2024-10-31 19:35 | XMS_ITS | Referral Summary ---
Author Organization [facility] Address [address] [place] [address] Care Team Providers Care Gritting Machine Operator Name Role Phone Ayo Jackson MD Primary Care Provide r Garrison Mary MD Unavailable [phone] Allergies Active Allergy Reactions Criticality Noted Date [...] monitoring Assessment & Plan (07/15/2021 3:48 PM WIRE DRAWING DIE MAKER): Parathyroid hormone level, call with results, consider referral to Head [facility] Neck surgery at [facility] Social History Tobacco Use Types Packs/Day Years [...] on file Legal Sex Male 6:41 PM WIRE DRAWING DIE MAKER Gender Identity Not on file Sexual Orientation Not on file Last Filed Vital Signs Vital Sign Reading Time Taken Comments Blood Pressure 124/76 07/08/2022 7:43 AM WIRE DRAWING DIE MAKER Pulse 79 07/08/2022 7:43 AM WIRE DRAWING DIE MAKER Temperature 36.2 C (97.2 F) 07/08/2022 7:43 AM WIRE DRAWING DIE MAKER Respiratory Rate 16 07/08/2022 7:43 AM WIRE DRAWING DIE MAKER Oxygen Saturation 94% 07/08/2022 7:43 AM WIRE DRAWING DIE MAKER Inhaled Oxygen Concentration - - Weight 82.1 kg (181 lb) 07/07/2022 7:13 AM WIRE DRAWING DIE MAKER Height 185.4 cm (6' 1 ) 07/07/2022 7:13 AM WIRE DRAWING DIE MAKER Body Mass Index 23.88 07/07/2022 7:13 AM WIRE DRAWING DIE MAKER Plan of Treatment Not on file Medical Devices Implanted Type Area Cone Cleaner Device Identifier Shelf Expiration Date Model / Serial / Lot [facility] [employer] Sls-Clip Ligate Triangular Wire Leslee Groove Small [employer] Clip Latex Free [id number] - [id number] Implanted:Qty: 3 on 07/07/2022 by Gavin Sommer MD at [facility] [employer] [id number] / / Insurance MEDICARE [facility] MEDICARE [facility] MEDICARE [facility] Advance Directives For more information, please contact: [phone] * Full Code (Latest Code Status on File) Date Activated Date Inactivated Comments 07/07/2022 12:53 PM 07/08/2022 3:25 PM Care Teams Gritting Machine Operator Relationship Specialty Start Date End Date Ayo Jackson MD [address] [address] PCP - General Internal Medicine 05/08/21 Garrison Mary MD [address] [address] Consulting Physician Otolaryngology 11/05/21
--- OUTSIDE RECORDS SUMMARY | 2024-10-31 19:35 | XMS_ITS | Continuity of Care Document ---
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 It does not include entries that were removed or entered in error. Problem Status Onset Date Problem Type Date of Resolution Comments Source Anxiety Active Condition [facility] Atrial fibrillation Active Condition Jul 16, 2010 Entered By: THOMAS CORMIER Comment: [facility] Entered By: THOMAS CORMIER Comment: had pacemaker put in 2012 [facility] Benign essential hypertension (SNOMED CT 5611113) Active Condition [facility] Chronic kidney disease Active Condition [facility] Coronary atherosclerosis (SNOMED CT 764356253) Active Condition Sep 12, 2004 Entered By: THOMAS CORMIER Comment: 6 vessel CABG [facility] Exposure to potentially hazardous substance Active Condition [facility] Gastroesophageal reflux disease Active Condition [facility] Hyperlipidemia Active Condition [facility] Iron deficiency anemia Active Condition [facility] Personal History of Venous Thrombosis and Embolism Active Condition [facility] Prostate cancer Active Condition Jun 12, 2005 Entered By: THOMAS CORMIER Comment: prostatectomy November 2004 [facility] Sensorineural hearing loss Active Condition [facility] Type 2 diabetes mellitus (SNOMED CT 94561967) Active Condition [facility] Vitamin B12 level below reference range Active Condition [facility] Vitamin D deficiency Active Condition [facility] Hypomagnesemia Inactive Condition 01/19/2024 [facility] Diagnosis: ICD-10-CM Z00.00 Encntr for general adult medical exam w/o abnormal findings Active Diagnosis [facility] Medications Combined list of outpatient medications from [...] DAY ORAL ACTIVE DANETTE CARIAS MD 2017 [facility] ATORVASTATI N CA 80MG TAB TAKE ONE-HALF TABLET BY MOUTH EVERY EVENING ORAL ACTIVE DANETTE CARIAS MD 2016 [facility] CARVEDILOL 25MG TAB TAKE ONE TABLET BY MOUTH TWICE A DAY ORAL ACTIVE BRIAN,SHE LBY R 2022 [facility] CHOLECALCIF EUGENIO 50MCG (2,000UNIT) TAB TAKE ONE TABLET BY MOUTH ONCE A DAY ORAL ACTIVE BRIAN,SHE LBY R 2023 [facility] CYANOCOBALA MIN 1000MCG TAB TAKE ONE TABLET BY MOUTH ONCE A DAY ORAL ACTIVE BRIAN,SHE LBY R 2022 [facility] EMPAGLIFLOZ IN TAB,ORAL TAKE 10 MG BY MOUTH ONCE A DAY ORAL ACTIVE BRIAN,SHE LBY R 2022 [facility] FERROUS SO4 325MG TAB TAKE ONE TABLET BY MOUTH ONCE A DAY ORAL ACTIVE BRIAN,SHE LBY R 2022 [facility] FINERENONE 10MG TAB TAKE TWO TABLETS BY MOUTH ONCE A DAY ORAL ACTIVE BRIAN,SHE LBY R 2022 [facility] ICOSAPENT ETHYL 1GM CAP TAKE 1 CAPSULE BY MOUTH FOUR TIMES A DAY ORAL ACTIVE TORRES,SHE LBY R 2023 [facility] LORAZEPAM 1MG TAB TAKE ONE TABLET BY MOUTH AT BEDTIME NEEDED ORAL ACTIVE DANETTE CARIAS MD 2015 [facility] [place] POTASSIUM 100MG TAB TAKE ONE-HALF TABLET BY MOUTH TWICE A DAY ORAL ACTIVE BRIAN,SHE LBY R 2022 [facility] METFORMIN HCL 750MG 24HR TAB,SA TAKE ONE TABLET BY MOUTH ONCE A DAY ORAL ACTIVE ZARA TORRES 2022 [facility] PANTOPRAZOL E NA 40MG TAB,EC TAKE ONE TABLET BY MOUTH EVERY MORNING ORAL ACTIVE DANETTE CARIAS MD 2015 [facility] Immunizations Combined list of available immunizations from the Department of Defense and Veterans Affairs facilities. Immunization Series Date Given Administered By Site Reaction Lot Number CVX Code Drug Optical Effects Line Up Person Status Comments Source COVID-19 ([address]), MRNA, LNP-S, PF, JOSESITO-SUCROSE, 30 MCG/0.3 ML (AGES 12+ YEARS) 2023 PRUDENCIOSERASimon Spangler LEFT DELTO ID [id number] complet ed [facility] COVID-19 ([address]), MRNA, LNP-S, PF, 30 MCG/0.3 ML DOSE 5 2021 208 complet ed [facility] INFLUENZA, UNSPECIFIED FORMULATION 2021 88 complet ed [facility] COVID-19 ([address]), MRNA, LNP-S, BIVALENT, PF, 30 MCG/0.3 ML DOSE 1 2021 300 complet ed [facility] COVID-19 ([address]), MRNA, LNP-S, PF, 30 MCG/0.3 ML DOSE 3 2020 208 complet ed PFR; [id number]; 2 [facility] COVID-19 ([address]), MRNA, LNP-S, PF, 30 MCG/0.3 ML DOSE 2 2020 208 complet ed PFR; [id number]; 1 [facility] COVID-19 ([address]), MRNA, LNP-S, PF, 30 MCG/0.3 ML DOSE 1 2020 208 complet ed PFR; [id number]; 1 [facility] INFLUENZA, INJECTABLE, MDCK, PRESERVATIVE FREE, QUADRIVALENT 2018 171 complet ed Partner: [email or web address]. Administe red by: SABINA CABA (EJK=[phone]). Partner 04 Lot#: [id number] Mfr: SEQIRUS; Dosage: 0.5 [facility] ZOSTER RECOMBINANT 2 2017 187 complet ed [facility] ZOSTER RECOMBINANT 1 2017 187 complet ed [facility] INFLUENZA, UNSPECIFIED FORMULATION 2014 88 complet ed [facility] INFLUENZA, UNSPECIFIED FORMULATION 2012 88 complet ed [place] INFLUEN[place], UNSPECIFIED FORMULATION 2011 88 complet ed [facility] INFLUENZA, UNSPECIFIED FORMULATION 2010 88 complet ed [facility] INFLUENZA, UNSPECIFIED FORMULATION 2009 88 complet ed [facility] INFLUENZA, UNSPECIFIED FORMULATION 2008 88 complet ed [facility] ZOSTER LIVE 2008 121 complet ed [facility] INFLUENZA, UNSPECIFIED FORMULATION 2007 88 complet ed [facility] INFLUENZA, UNSPECIFIED FORMULATION 2006 88 complet ed [facility] TDAP 2006 115 complet ed [place] INFLUENZA, UNSPECIFIED FORMULATION 2005 88 complet ed voice mail [facility] REFUSED PNEUMOVAX (HISTORICAL) 2004 complet ed [facility] INFLUENZA, UNSPECIFIED FORMULATION 2004 88 complet ed [facility] OUTSIDE PNEUMOVAX (HISTORICAL) 2004 109 complet ed [facility] INFLUENZA (HISTORICAL) 2003 88 complet ed [facility] INFLUENZA, UNSPECIFIED FORMULATION 2000 88 complet ed [facility] Vital Signs Combined list of inpatient and outpatient Vital Signs from Department of Defense and Veterans Affairs, ranging from 12 months to all on record, depending upon the facility. Vital Sign Value Date Comments Source SYSTOLIC BLOOD PRESSURE 96 01/19/2024 09:51:44 [facility] DIASTOLIC BLOOD PRESSURE 60 01/19/2024 09:51:44 [facility] PULSE OXIMETRY 99 01/19/2024 09:51:44 [place] [facility] WEIGHT 182.6 01/19/2024 09:51:[address] [facility] Aníbal [facility] BMI 24 kg/m2 01/19/2024 09:51:44 [facility] PAIN 3 01/19/2024 09:51:44 [facility] TEMPERATURE 98 01/19/2024 09:51:44 [facility] PULSE 70 01/19/2024 09:51:44 [facility] RESPIRATION 18 01/19/2024 09:51:44 [facility] Encounters Combined list of: 1) Encounters from Department of Veterans Affairs facilities going backup to the last 18 months, not all [place] inpatient encounters are included; 2) Encounters from the Department of [facility] facilities going backup to 280 months. Location Location Details Encounter Type Encounter Number Reason For Visit Attending Provider ADM Date DC Date Status Disposition Source [facility] ADMN SARSCOV2 VACC 1 DOSE [id number] Diagnos is: ICD-10- CM Z00.00 Encntr for general adult medical exam w/o abnorma l finding s TARIQ TORRES 01/18 [facility] Outpatient Encounter [id number] 10/12 [facility] Outpatient Encounter [id number] 10/13 [facility] Outpatient Encounter [id number] 10/14 [facility] Social History Combined list of available smoking, tobacco, and other social history from Department of Defense and Veterans Affairs facilities. Social History Type Response Date Comment Sourc e Tobacco smoking status NHIS VA-TOBACCO FORMER USER 01/19/2024 [facility] History of tobacco use [place]-TOBACCO QUIT 1 5 YRS OR MORE 01/19/2024 [facility] History of tobacco use VA-TOBACCO FORMER USER 01/14/2023 [facility] History of tobacco use [place]-TOBACCO NEVER USED 03/12/2018 [facility] History of tobacco use QUIT TOBACCO >7 Y EARS AGO 03/12/2017 [facility] History of tobacco use QUIT TOBACCO >7 Y EARS AGO 03/12/2016 [facility] History of tobacco use QUIT TOBACCO >7 Y EARS AGO 02/27/2015 [facility] History of tobacco use QUIT TOBACCO >7 Y EARS AGO 12/19/2013 [facility] History of tobacco use QUIT TOBACCO >7 Y EARS AGO 12/13/2012 [facility] History of tobacco use QUIT TOBACCO >7 Y EARS AGO 12/29/2006 [facility] History of tobacco use CURRENT NON-TOBAC CO USER-HX OF USE 03/17/2006 [facility] History of tobacco use CURRENT NON-TOBAC CO USER-HX OF USE 06/12/2005 [facility] History of tobacco use CURRENT NON-TOBAC CO USER-HX OF USE 09/12/2004 [facility] Plan of Care List of future care activities from [facility] facilities. Additional future care activities may be listed in the Assessment and Plan section. Date/Time Care Activity Care Activity Detail Facili ty 01/19/2025 AMBULATORY - MEDICINE AMBULATORY - MEDICI NE [facility] Advance Directives List of completed, amended, or rescinded Advance Directives on record at [facility] facilities. An actual copy of the Directive is not included. Date Advance Directive Provider Source 02/02/2023 ADVANCE DIRECTIVE ALISON NELSON [facility]
--- NOTE | 2024-10-31 19:43 | ECG_ITS ---
Test Date: 2024-10-31 19:45:31 Measurements Intervals [place] Rate: 93 P: 60 CO: 146 QRS: 184 QRSD: 164 T: -9 QT: 406 QTc: 506 Interpretive Statements ELECTRONIC VENTRICULAR PACEMAKER ABNORMAL RHYTHM ECG Compared to ECG 10/31/2024 17:10:04 No significant changes Electronically Signed On 11-01-2024 16:00:35 CDT by Viral Hernandez M.D.
[2024-10-31 20:01] VITALS: BP 141/79; PULSE 88; RESP 17; O2SAT 96
[2024-10-31 20:02] LABS: INR 1.3; Prothrombin Time 16.6 Seconds (11.1-14.7)
[2024-10-31 20:03] LABS: Partial Thromboplastin Time 36.6 Seconds (22.3-36.8)
[2024-10-31] MEDS: FUROSEMIDE INJ 40 MG/4 ML VIAL 20 MG IV PUSH (21:47)
[2024-10-31 22:00] VITALS: BP 146/78; PULSE 96; RESP 19; O2SAT 97
== END 2024-10-31 23:45 | disposition home or self-care (01) ==
PROVIDERS: Registered Nurse; Emergency Provider Emergency Medicine; PCP Internal Medicine
DX: R60.0 Localized edema (principal); Z95.0 Presence of cardiac pacemaker; Z79.82 Long term (current) use of aspirin; I25.10 Atherosclerotic heart disease of native coronary artery without angina pectoris; Z85.46 Personal history of malignant neoplasm of prostate; I10 Essential (primary) hypertension; I48.91 Unspecified atrial fibrillation; M81.0 Age-related osteoporosis without current pathological fracture; Z95.1 Presence of aortocoronary bypass graft
CPT/HCPCS: 36415; 71046; 80053; 83880; 84484; 85025; 85055; 85610; 85730; 93005; 93970; 96374; 99284; J1940

== ENCOUNTER 2024-11-28 15:46 | Inpatient (IN) | payer MEDICARE, OTHER, SELFPAY ==
--- NOTE | ~2024-11-28 | XR_ITS ---
XR chest 2V Ordering provider: Mandie Frederick APRN History: 79 years Male with . low oxygen saturation, lower leg weakness . Comparison: None. FINDINGS: MEDIASTINUM: The cardiac silhouette is not enlarged. Left tripolar pacemaker. Postoperative changes i n the mediastinum. LUNGS: No pneumothorax. Left basilar atelectasis versus pneumonia with pleural effusion. Minimal opacification in the right lung base. OTHER: No free air under the diaphragm. IMPRESSION: Left basilar atelectasis versus pneumonia with pleural effusion. Reviewed, dictated and finalized at location A.
--- NOTE | ~2024-11-28 | XR_ITS ---
Portable chest x-ray Comparison: 11/08/2024 Clinical History: PICC line placement Findings: Right-sided PICC line in satisfactory position. Small left pleural effusion present with p robable left basilar atelectasis or mild pulmonary edema. Right lung essentially clear. Cardiomedias tinal silhouette is stable, status post CABG with pacemaker device. Bones and soft tissues are unrema rkable. Impression: Right-sided PICC line in satisfactory position. Small left pleural effusion with probable left basilar pulmonary edema/atelectasis. Correlate clinica lly for pneumonia. Reviewed, dictated and finalized at location . Impression: Right-sided PICC line in satisfactory position. Small left pleural effusion with probable left basilar pulmonary edema/atelecta sis. Correlate clinically for pneumonia.
--- NOTE | ~2024-11-28 | CT_ITS ---
EXAMINATION: CT chest abdomen pelvis w con DATE: 11/30/2024 13:25 INDICATION: Large mass in the ascending colon TECHNIQUE: Computed tomography (CT) of the chest, abdomen, and pelvis was performed with 100 mL Omnip aque-350 intravenous contrast. Automated exposure control and iterative reconstruction technique were employed. The dose-length product was 758.44 mGy-cm. COMPARISON: CT abdomen and pelvis dated 08/25/2024 FINDINGS: CHEST CT: Small right and moderate-sized left posterior layering pleural effusions with partial collapse of the majority the left lower lobe and less severe dependent compressive atelectasis in the right lower lo be. There are groundglass opacities in the dependent aspect of the left upper lobe and lingula with b ronchovascular crowding and with also favor atelectasis over pneumonia. No septal line thickening to suggest pulmonary edema. Calcified nodules in the right upper lobe and in the collapsed appears segme nt of the left lower lobe along with calcified mediastinal lymph nodes consistent with old granulomat ous disease. Mild cardiomegaly. Atherosclerotic coronary artery calcifications and change of prior me bill sternotomy and coronary artery bypass grafting. No pericardial effusion. Three lead pacemaker wi th lead tips terminating at the right atrial appendage, apex of the right ventricle and in a coronary vein along the lateral wall of the left ventricle having traversed the coronary sinus. Thoracic aort a is normal in caliber with no dissection. There is enlargement of the central pulmonary arteries con sistent with pulmonary arterial hypertension. No pathologically enlarged thoracic lymphadenopathy. Se adrian disc height loss at T6-T7 with otherwise mild to moderate thoracic spondylosis and with bridging osteophytes at multiple levels consistent with diffuse idiopathic skeletal hyperostosis (DISH). Old healed fractures of the posterior right fifth and sixth ribs. Displaced subacute appearing fractures of the posterior left 9th-11th ribs. ABDOMEN/PELVIS CT: Liver, gallbladder, spleen, pancreas, bilateral adrenal glands and kidneys are normal. Focal region o f marked irregular wall thickening at the distal transverse colon suspicious for colon cancer. There is fluid throughout the large and small bowel consistent with nonspecific diarrhea. Small bowel and a ppendix are normal. Status post prostatectomy with surgical clips in the pelvis consistent bilateral pelvic lymph node dissections. Bladder is otherwise unremarkable. Moderate-sized bilateral fat-contai cameron inguinal hernias. Minimal amount of ascites in the deep pelvis. No abscess or free intraperitone al gas. No pathologically enlarged abdominal or pelvic lymphadenopathy.. There is calcified atheroscl erosis of the aorta and many of the other arteries. A few small sclerotic bone islands in the pelvis. Mild lumbar dextro curvature with moderate spondylosis. Moderate bilateral sacroiliac osteoarthritis with developing ankylosis on the right. IMPRESSION: 1. Prominent wall thickening along the distal transverse colon concerning for colon cancer. No lesion suspicious for metastatic disease. 2. Small right and [id number] left pleural effusions with associated atelectasis in the bilate ral lower lobes, left greater than right. 3. Cardiomegaly enlargement of the central pulmonary arteries consistent with pulmonary arterial hype rtension. 4. Moderate-sized bilateral fat-containing inguinal hernias. 5. Minimal nonspecific ascites in the deep pelvis. Reviewed, dictated and finalized at location A. IMPRESSION: 1. Prominent wall thickening along the distal transverse colon concerning for c olon cancer. No lesion suspicious for metastatic disease. 2. Small right and [id number]-[id number] left pleural effusions with associated ate lectasis in the bilateral lower lobes, left greater than right. 3. Cardiomegaly enlargement of the central pulmonary arteries consistent with p ulmonary arterial hypertension. 4. Moderate-sized bilateral fat-containing inguinal hernias. 5. Minimal nonspecific ascites in the deep pelvis.
--- NOTE | ~2024-11-28 | XR_ITS ---
XR chest 1V Ordering provider: Manjinder Haney MD History: 79 years Male with . fever source/COULDNT GET PATIENT SITTING FOR 2 VIEW . Comparison: December 01, 2024 FINDINGS: MEDIASTINUM: The cardiac silhouette is slightly enlarged. Left bipolar pacemaker. Postoperative white es in the mediastinum. Congestive hossein. Right PICC line with the tip overlying the superior vena cava . LUNGS: No pneumothorax. Bilateral airspace disease seen in the mid and lower zone suggestive of pulmo nary edema versus pneumonia. OTHER: No free air under the diaphragm. Degenerative the spine. IMPRESSION: Bilateral airspace disease suggestive of pneumonia versus pulmonary edema. Reviewed, dictated and finalized at location A.
--- NOTE | 2024-11-28 15:59 | ECG_ITS ---
Test Date: 2024-11-28 17:31:27 Measurements Intervals [place] Rate: 89 P: 59 IA: 142 QRS: 196 QRSD: 169 T: 3 QT: 418 QTc: 510 Interpretive Statements ELECTRONIC VENTRICULAR PACEMAKER BASELINE ARTIFACT- I, II, III, AVR, AVL, AVF NO FURTHER INTERPRETATION IS POSSIBLE ATYPICAL ECG Compared to ECG 10/31/2024 19:45:31 No significant changes Electronically Signed On 11-28-2024 19:29:03 CDT by Christopher Matamoros D.O.
[2024-11-28 16:14] VITALS: BP 128/65; PULSE 88; RESP 16; TEMP 36.6; O2SAT 96
--- NOTE | 2024-11-28 16:20 | ED.EXTPRO ---
HPI - Extremity Problem General Chief complaint: Weakness <Mandie Frederick APRN - Last Filed: 11/28/24 16:23> Stated complaint: Fluid overload -weakness in legs <Mandie Frederick APRN - Last Filed: 11/28/24 16:23> Time Seen by Provider: 11/28/24 16:15 <Mandie Frederick APRN - Last Filed: 11/28/24 16:23> Focused HPI: Patient is an 79-year-old male who presents to the ER with complaints of swelling in his feet and arms. He reports he was seen here for something similar about a month ago and they sent him home on Lasix. Patient reports he has been taking his Lasix but the swelling continues. His chart indicates a history of high cholesterol, GERD, constipation, and atrial fibrillation. GENERAL: Well-appearing, well-nourished, and in no acute distress. HEAD: Normocephalic, atraumatic. CHEST: Clear to auscultation. ?No respiratory distress. HEART: Regular rate and rhythm.?+ murmur, + edema hands and feet NEURO: ?Alert and oriented x3. Patient screened in triage and initial orders placed.? ?Additional care and disposition to be based upon?diagnostic testing and treatment. <Mandie Frederick APRN - Last Filed: 11/28/24 16:23> History of Present Illness HPI Narrative: Patient is a 79-year-old gentleman who presents emergency department with chief complaint of edema. Patient was seen in the emergency department recently and was it started on Lasix. The patient states that he has had increasing edema and now is unable to really ambulate he has history of atrial fibrillation is on anticoagulants. The patient reports no blood in his stool patient denies fever denies cough <Deshaun Carter MD - Last Filed: 11/28/24 20:07> Related Data Home medications: Home Medications ?Medication ?Instructions ?Recorded ?Confirmed ?Last Taken ?Type acetaminophen 500 mg tablet 1,000 mg PO Q8H 09/05/24 09/05/24 Unknown History apixaban 5 mg tablet 5 mg PO BID 09/05/24 09/05/24 Unknown History aspirin 81 mg chewable tablet 81 mg PO DAILY 09/05/24 09/05/24 Unknown History atorvastatin 40 mg tablet (Lipitor) 40 mg PO HS 09/05/24 09/05/24 Unknown History cholecalciferol (vitamin D3) 25 2,000 unit PO DAILY 09/05/24 09/05/24 Unknown History mcg (1,000 unit) tablet cyanocobalamin (vitamin B-12) 1,000 mcg PO DAILY 09/05/24 09/05/24 Unknown History 1,000 mcg tablet ferrous sulfate 325 mg (65 mg 325 mg PO DAILY 09/05/24 09/05/24 Unknown History iron) tablet gabapentin 300 mg capsule 300 mg PO TID 09/05/24 09/05/24 Unknown History lidocaine 5 % topical patch 2 patch topical Q24H 09/05/24 09/05/24 Unknown History oxycodone 5 mg tablet 5 mg PO Q4H PRN pain 09/05/24 09/05/24 Unknown History pantoprazole 40 mg tablet,delayed 40 mg PO QAM 09/05/24 09/05/24 Unknown History release polyethylene glycol 3350 17 gram 17 g PO DAILY 09/05/24 09/05/24 Unknown History oral powder packet sennosides 8.6 mg tablet 17.2 mg PO DAILY 09/05/24 09/05/24 Unknown History <Mandie Frederick APRN - Last Filed: 11/28/24 16:23> Allergies/Adverse reactions: Allergies Allergy/AdvReac Type Severity Reaction Status Date / Time No Known Allergies Allergy Verified 11/28/24 15:48 <Mandie Frederick APRN - Last Filed: 11/28/24 16:23> Review of Systems Review of Systems: A 10 system review of systems was completed on the patient and is negative except for what is stated in the HPI. Nursing and ancillary documentation was reviewed. <Deshaun Carter MD - Last Filed: 11/28/24 20:07> [facility] Past Medical History Medical History: Medical History CAD (coronary artery disease) Prostate cancer sp prostatectomy Pacemaker Hypocalcemia HTN (hypertension) Afib Age related osteoporosis Hemothorax with pneumothorax, traumatic Urinary retention Recurrent falls Cachexia Protein calorie malnutrition Malaise and fatigue <Mandie Frederick APRN - Last Filed: 11/28/24 16:23> Surgical History Surgical History: Surgical History Hx of CABG Previous back surgery H/O prostatectomy <Mandie Frederick CHRONIC DISEASE EPIDEMIOLOGIST - Last Filed: 11/28/24 16:23> Social History Social History: Social History Smoking packs per day: 1 Smoking cigarettes per day: 20.0 Years smoked: 30 Smoking pack-years: 30.00 Smoking status: Former smoker Tobacco type: cigarettes Alcohol intake: former Substance use: never Do You Feel Safe in your Home?: Yes Lack of Transportation: No Lack of Food: Never True Current Housing: I Have Housing Concerned About Future Housing: No Difficulty Paying Gas/Electric Bills: No Difficulty Paying for Meds: No Currently Unemployed: No Education: High School Diploma/GED Difficulty w/ Childcare or Family Care: No Spiritual care concerns: No <Mandie Frederick CHRONIC DISEASE EPIDEMIOLOGIST - Last Filed: 11/28/24 16:23> Exam Narrative: GENERAL: Well-appearing, well-nourished, and in no acute distress. HEAD: Normocephalic, atraumatic. EYES: PERRLA and EOMI. ENT: Nares clear, no rhinorrhea or epistaxis. Mucous membranes moist. NECK: Supple. CHEST: Clear to auscultation. No respiratory distress. HEART: Regular rate and rhythm. No murmur heard. Normal peripheral pulses. ABDOMEN: Soft, nontender, nondistended, normal active bowel sounds. : Trace guaiac-positive stool no gross blood EXTREMITIES: Normal range of motion. 2+ edema. SKIN: Warm, dry, no rash. NEURO: No focal deficits. Alert and oriented x3. PSYCH: Normal mood and affect. <Deshaun Carter MD - Last Filed: 11/28/24 20:07> Course Vital Signs Vital signs: Vital Signs Temperature 36.6 C 11/28/24 16:14 Pulse Rate 88 11/28/24 16:14 Respiratory Rate 16 11/28/24 16:14 Blood Pressure 128/65 11/28/24 16:14 Pulse Oximetry 96 11/28/24 16:14 Oxygen Delivery Room Air 11/28/24 16:14 Temperature 36.6 C 11/28/24 18:02 Pulse Rate 84 11/28/24 19:26 Respiratory Rate 14 11/28/24 19:26 Blood Pressure 136/65 11/28/24 19:26 Pulse Oximetry 95 11/28/24 19:26 Oxygen Delivery Room Air 11/28/24 18:05 <Mandie Frederick, CHRONIC DISEASE EPIDEMIOLOGIST - Last Filed: 11/28/24 16:23> Vital Signs Temperature 36.6 C 11/28/24 16:14 Pulse Rate 88 11/28/24 16:14 Respiratory Rate 16 11/28/24 16:14 Blood Pressure 128/65 11/28/24 16:14 Pulse Oximetry 96 11/28/24 16:14 Oxygen Delivery Room Air 11/28/24 16:14 Temperature 36.6 C 11/28/24 18:02 Pulse Rate 84 11/28/24 19:26 Respiratory Rate 14 11/28/24 19:26 Blood Pressure 136/65 11/28/24 19:26 Pulse Oximetry 95 11/28/24 19:26 Oxygen Delivery Room Air 11/28/24 18:05 <Deshaun Carter MD - Last Filed: 11/28/24 20:07> MDM - Extremity (Nontraumatic) MDM Narrative Medical decision making narrative: Differential diagnosis includes UTI, CHF, pneumonia, fluid overload, anemia Patient was trace guaiac positive and is on anticoagulants. Patient was found to have a hemoglobin of 7.4 this is lower than the 8.8 the patient was a month ago to Urinalysis showed evidence of UTI patient was started on Rocephin Chest x-ray showed atelectasis versus infiltrate the patient is not having respiratory symptoms and the case was discussed with hospitalist for admission. <Deshaun Carter MD - Last Filed: 11/28/24 20:07> Lab Data Result diagrams: 11/28/24 17:26 11/28/24 17:26 <Mandie Frederick, CHRONIC DISEASE EPIDEMIOLOGIST - Last Filed: 11/28/24 16:23> Labs: Lab Results 11/28/24 11/28/24 Range/Units 17:26 18:13 WBC 5.7 (4.5-10.0) K/mm3 RBC 2.92 L (4.6-6.20) M/mm3 Hgb 7.4 L (14.0-18.0) g/dL Hct 26.5 L (42.0-52.0) % MCV 90.8 (80-100) fl MCH 25.3 L (26-34) pg MCHC 27.9 L (32-36) g/dl RDW 17.2 H (11.5-14.5) % Plt Count 332 (150-375) k/mm3 MPV 9.5 (7.4-10.4) fl Immature Gran % (Auto) 0.5 (0-0.5) % Neut % (Auto) 71.1 (45.5-73.1) % Lymph % (Auto) 17.3 L (18.3-44.2) % Carl[place] % (Auto) 7.9 (2.6-8.5) % Eos % (Auto) 2.5 (0-4.4) % Baso % (Auto) 0.7 (0.2-1.2) % Lymph # (Auto) 0.99 (0.9-3.2) K/mm3 Carlton # (Auto) 0.5 (0.1-0.6) K/mm3 Eos # (Auto) 0.1 (0-0.3) K/mm3 Baso # (Auto) 0.0 (0.0-0.1) K/mm3 Abs Immat Gran (auto) 0.03 (0.00-0.031) K/mm3 Absolute Neuts (auto) 4.1 (1.3-6.7) K/mm3 Absolute Nucleated RBC 0.000 (0.0-0.012) K/mm3 Band Neutrophils % Not Reportable Nucleated RBC % 0.0 (0.0-0.2) % Platelet Estimate Adequate (Adequate) Hypochromasia 1+ Anisocytosis 1+ Ovalocytes 1+ Schistocytes None seen PT 21.3 H (11.1-14.7) Seconds INR 1.8 APTT 40.7 H (22.3-36.8) Seconds Sodium 135 L (137-145) mmol/L Potassium 3.7 (3.4-5.0) mmol/L Chloride 103 (98-107) mmol/L Carbon Dioxide 32 H (22-30) mmol/L Anion Gap 0 L (4-12) mmol/L BUN 28 H D (9-20) mg/dL Creatinine 0.74 (0.7-1.3) mg/dL Estim Creat Clear Calc Not Reportable Estimated GFR > 60 (59 - ) Glucose 111 H (65-110) mg/dL Calcium 7.4 L (8.4-10.2) mg/dL Total Bilirubin 0.3 (0.2-1.3) mg/dL AST 21 (17-59) U/L ALT 13 (6-50) U/L Alkaline Phosphatase 93 (38-126) U/L Troponin I < 0.012 (0.000-0.034) ng/mL NT-Pro-B Natriuret Pep 1250 H (19.9-100) pg/mL Total Protein 5.0 L (6.3-8.2) g/dL Albumin 2.2 L (3.5-5.1) g/dL Urine Color Yellow (Yellow) Urine Appearance Clear (Clear) Urine pH 5.5 (5.0-9.0) Ur Specific [place] 1.022 (1.001-1.035) Urine Protein Negative (Negative) mg/dL Urine Glucose (UA) Negative (Negative) mg/dL Urine Ketones Negative (Negative) mg/dL Ur Blood (Man) Negative (Negative) Urine Nitrate Positive H (Negative) Urine Bilirubin Negative (Negative) Urine Urobilinogen 1.0 (<2.0) mg/dL Add Ur Microanalysis Reviewed Leukocyte Esterase Rfl 2+ H (Negative) MYKE/UL Urine RBC 0-2 (0-2) /hpf Urine WBC 21-50 H (0-3) /hpf Ur Squamous Epith Cells None seen (Few) /hpf Urine Bacteria 4+ H /hpf Urine Casts 0-2 <Mandie Frederick, CHRONIC DISEASE EPIDEMIOLOGIST - Last Filed: 11/28/24 16:23> Lab Results 11/28/24 11/28/24 Range/Units 17:26 18:13 WBC 5.7 (4.5-10.0) K/mm3 RBC 2.92 L (4.6-6.20) M/mm3 Hgb 7.4 L (14.0-18.0) g/dL Hct 26.5 L (42.0-52.0) % MCV 90.8 (80-100) fl MCH 25.3 L (26-34) pg MCHC 27.9 L (32-36) g/dl RDW 17.2 H (11.5-14.5) % Plt Count 332 (150-375) k/mm3 MPV 9.5 (7.4-10.4) fl Immature Gran % (Auto) 0.5 (0-0.5) % Neut % (Auto) 71.1 (45.5-73.1) % Lymph % (Auto) 17.3 L (18.3-44.2) % Carlton % (Auto) 7.9 (2.6-8.5) % Eos % (Auto) 2.5 (0-4.4) % Baso % (Auto) 0.7 (0.2-1.2) % Lymph # (Auto) 0.99 (0.9-3.2) K/mm3 Carl[place] # (Auto) 0.5 (0.1-0.6) K/mm3 Eos # (Auto) 0.1 (0-0.3) K/mm3 Baso # (Auto) 0.0 (0.0-0.1) K/mm3 Abs Immat Gran (auto) 0.03 (0.00-0.031) K/mm3 Absolute Neuts (auto) 4.1 (1.3-6.7) K/mm3 Absolute Nucleated RBC 0.000 (0.0-0.012) K/mm3 Band Neutrophils % Not Reportable Nucleated RBC % 0.0 (0.0-0.2) % Platelet Estimate Adequate (Adequate) Hypochromasia 1+ Anisocytosis 1+ Ovalocytes 1+ Schistocytes None seen PT 21.3 H (11.1-14.7) Seconds INR 1.8 APTT 40.7 H (22.3-36.8) Seconds Sodium 135 L (137-145) mmol/L Potassium 3.7 (3.4-5.0) mmol/L Chloride 103 (98-107) mmol/L Carbon Dioxide 32 H (22-30) mmol/L Anion Gap 0 L (4-12) mmol/L BUN 28 H D (9-20) mg/dL Creatinine 0.74 (0.7-1.3) mg/dL Estim Creat Clear Calc Not Reportable Estimated GFR > 60 (59 - ) Glucose 111 H (65-110) mg/dL Calcium 7.4 L (8.4-10.2) mg/dL Total Bilirubin 0.3 (0.2-1.3) mg/dL AST 21 (17-59) U/L ALT 13 (6-50) U/L Alkaline Phosphatase 93 (38-126) U/L Troponin I < 0.012 (0.000-0.034) ng/mL NT-Pro-B Natriuret Pep 1250 H (19.9-100) pg/mL Total Protein 5.0 L (6.3-8.2) g/dL Albumin 2.2 L (3.5-5.1) g/dL Urine Color Yellow (Yellow) Urine Appearance Clear (Clear) Urine pH 5.5 (5.0-9.0) Ur Specific [place] 1.022 (1.001-1.035) Urine Protein Negative (Negative) mg/dL Urine Glucose (UA) Negative (Negative) mg/dL Urine Ketones Negative (Negative) mg/dL Ur Blood (Man) Negative (Negative) Urine Nitrate Positive H (Negative) Urine Bilirubin Negative (Negative) Urine Urobilinogen 1.0 (<2.0) mg/dL Add Ur Microanalysis Reviewed Leukocyte Esterase Rfl 2+ H (Negative) MYKE/UL Urine RBC 0-2 (0-2) /hpf Urine WBC 21-50 H (0-3) /hpf Ur Squamous Epith Cells None seen (Few) /hpf Urine Bacteria 4+ H /hpf Urine Casts 0-2 <Deshaun Carter MD - Last Filed: 11/28/24 20:07> Discharge Plan Discharge Clinical Impression: Edema, peripheral, Anemia, Generalized weakness, Acute UTI <Mandie Frederick APRN - Last Filed: 11/28/24 16:23> Patient Disposition: Still a Patient <Mandie Frederick APRN - Last Filed: 11/28/24 16:23> Condition: Stable <Mandie Frederick APRN - Last Filed: 11/28/24 16:23> Patient Language: Liberian <Mandie Frederick APRN - Last Filed: 11/28/24 16:23> Prescriptions: No Action furosemide [Lasix] 20 mg tablet 20 mg PO DAILY Qty: 7 0RF acetaminophen 500 mg tablet 1,000 mg PO Q8H aspirin 81 mg tablet,chewable 81 mg PO DAILY gabapentin 300 mg capsule 300 mg PO TID lidocaine 5 % adhesive patch,medicated 2 patch topical Q24H Rx Instructions: leave on most painful area for up to 12 hrs oxycodone 5 mg tablet 5 mg PO Q4H PRN (Reason: pain) polyethylene glycol 3350 17 gram powder in packet 17 g PO DAILY sennosides 8.6 mg tablet 17.2 mg PO DAILY atorvastatin [Lipitor] 40 mg tablet 40 mg PO HS cholecalciferol (vitamin D3) 25 mcg (1,000 unit) tablet 2,000 unit PO DAILY cyanocobalamin (vitamin B-12) 1,000 mcg tablet 1,000 mcg PO DAILY apixaban 5 mg tablet 5 mg PO BID ferrous sulfate 325 mg (65 mg iron) tablet 325 mg PO DAILY pantoprazole 40 mg tablet,delayed release (DR/EC) 40 mg PO QAM oxycodone 5 mg Tablet 5 mg PO Q6H PRN (Reason: pain rated 1-10) Qty: 28 0RF <Mandie Frederick APRN - Last Filed: 11/28/24 16:23> Follow-up/Referrals: Renetta,MD Gege [Primary Care Provider] - <Mandie Frederick APRN - Last Filed: 11/28/24 16:23> Time of Disposition: 20:07 <Mandie Frederick APRN - Last Filed: 11/28/24 16:23> 20:07 <Deshuan Carter MD - Last Filed: 11/28/24 20:07>
[2024-11-28 17:33] LABS: Basophils Percent Auto 0.7 % (0.2-1.2); Eosinophils Absolute Auto 0.1 K/mm3 (0-0.3); Eosinophils Percent Auto 2.5 % (0-4.4); Hematocrit 26.5 % (42.0-52.0); Hemoglobin 7.4 g/dL (14.0-18.0); Immature Granulocyte Absolute 0.03 K/mm3 (0.00-0.031); Immature Granulocyte Percent A 0.5 % (0-0.5); Lymphocytes Absolute Auto 0.99 K/mm3 (0.9-3.2); Lymphocytes Percent Auto 17.3 % (18.3-44.2); Mean Corpuscular HGB Conc 27.9 g/dl (32-36); Mean Corpuscular Hemoglobin 25.3 pg (26-34); Mean Corpuscular Volume 90.8 fl (80-100); Mean Platelet Volume 9.5 fl (7.4-10.4); Monocytes Absolute Auto 0.5 K/mm3 (0.1-0.6); Monocytes Percent Auto 7.9 % (2.6-8.5); Neutrophils Absolute Auto 4.1 K/mm3 (1.3-6.7); Neutrophils Percent Auto 71.1 % (45.5-73.1); Platelet Count Result 332 k/mm3 (150-375); Red Blood Count 2.92 M/mm3 (4.6-6.20); Red Cell Distribution Width 17.2 % (11.5-14.5); White Blood Count 5.7 K/mm3 (4.5-10.0)
--- OUTSIDE RECORDS SUMMARY | 2024-11-28 17:38 | XMS_ITS | Continuity of Care Document ---
Author Name [facility] Organization [facility] Care Team Providers Care Silver Spray Worker Name Role Phone [facility] Unavailable Unavailable Problems Combined list of problems from Department of Defense and [facility] facilities. It does not include entries that were removed or entered in error. Problem Status Onset Date Problem Type Date of Resolution Comments Source Anxiety Active Condition [facility] Atrial fibrillation Active Condition Jul 16, 2010 Entered By: THOMAS CORMIER Comment[facility] Entered By: THOMAS CORMIER Comment: had pacemaker put in 2012 [facility] Benign essential hypertension (SNOMED CT [id number]) Active Condition [facility] Chronic kidney disease Active Condition [facility] Coronary atherosclerosis (SNOMED CT 707036513) Active Condition Sep 12, 2004 Entered By: THOMAS CORMIER Comment: 6 vessel CABG [facility] Exposure to potentially hazardous substance Active Condition [facility] Gastroesophageal reflux disease Active Condition [facility] Hyperlipidemia Active Condition [facility] Iron deficiency anemia Active Condition [facility] Personal History of Venous Thrombosis and Embolism Active Condition [facility] Prostate cancer Active Condition Jun 12, 2005 Entered By: THOMAS CORMIER Comment: prostatectomy November 2004 [facility] Sensorineural hearing loss Active Condition [facility] Type 2 diabetes mellitus (SNOMED CT [id number]) Active Condition [facility] Vitamin B12 level below reference range Active Condition [facility] Vitamin D deficiency Active Condition [facility] Hypomagnesemia Inactive Condition 01/19/2024 [facility] Diagnosis: ICD-10-CM Z00.00 Encntr for general adult medical exam w/o abnormal findings Active Diagnosis [facility] Medications Combined list of outpatient medications from [...] DAY ORAL ACTIVE DANETTE CARIAS MD 2017 [facility] ATORVASTATI N CA 80MG TAB TAKE ONE-HALF TABLET BY MOUTH EVERY EVENING ORAL ACTIVE DANETTE CARIAS MD 2016 [facility] CARVEDILOL 25MG TAB TAKE ONE TABLET BY MOUTH TWICE A DAY ORAL ACTIVE BRIAN,SHE LBY R 2022 [facility] CHOLECALCIF EUGENIO 50MCG (2,000UNIT) TAB TAKE ONE TABLET BY MOUTH ONCE A DAY ORAL ACTIVE BRIAN,SHE LBY R 2023 [facility] CYANOCOBALA MIN 1000MCG TAB TAKE ONE TABLET BY MOUTH ONCE A DAY ORAL ACTIVE BRIAN,SHE LBY R 2022 [facility] EMPAGLIFLOZ IN TAB,ORAL TAKE 10 MG BY MOUTH ONCE A DAY ORAL ACTIVE BRIAN,SHE LBY R 2022 [facility] FERROUS SO4 325MG TAB TAKE ONE TABLET BY MOUTH ONCE A DAY ORAL ACTIVE BRIAN,SHE LBY R 2022 [facility] FINERENONE 10MG TAB TAKE TWO TABLETS BY MOUTH ONCE A DAY ORAL ACTIVE BRIAN,SHE LBY R 2022 [facility] ICOSAPENT ETHYL 1GM CAP TAKE 1 CAPSULE BY MOUTH FOUR TIMES A DAY ORAL ACTIVE TORRES,SHE LBY R 2023 [facility] LORAZEPAM 1MG TAB TAKE ONE TABLET BY MOUTH AT BEDTIME NEEDED ORAL ACTIVE DANETTE CARIAS MD 2015 [facility] [place]AN POTASSIUM 100MG TAB TAKE ONE-HALF TABLET BY MOUTH TWICE A DAY ORAL ACTIVE BRIAN,SHE LBY R 2022 [facility] METFORMIN HCL 750MG 24HR TAB,SA TAKE ONE TABLET BY MOUTH ONCE A DAY ORAL ACTIVE ZARA TORRES R 2022 [facility] PANTOPRAZOL E NA 40MG TAB,EC TAKE ONE TABLET BY MOUTH EVERY MORNING ORAL ACTIVE DANETTE CARIAS MD 2015 [facility] Immunizations Combined list of available immunizations from the Department of Defense and Veterans Affairs facilities. 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 Status Comments Source COVID-19 (PFIZER), MRNA, LNP-S, PF, JOSESITO-SUCROSE, 30 MCG/0.3 ML (AGES 12+ YEARS) 2023 PRUDENCIOSERASimon Spangler LEFT DELTO ID [id number] 309 complet ed [facility] COVID-19 (Trumpet Search), MRNA, LNP-S, PF, 30 MCG/0.3 ML DOSE 5 2021 208 complet ed HISTORICA L INFORMATI ON - SOURCE UNSPECIFI ED, [facility] INFLUENZA, UNSPECIFIED FORMULATION 2021 88 complet ed HISTORICA L INFORMATI ON - SOURCE UNSPECIFI ED, [facility] COVID-19 ([facility]), MRNA, LNP-S, BIVALENT, PF, 30 MCG/0.3 ML DOSE 1 2021 300 complet ed HISTORICA L INFORMATI ON - FROM PATIENT'S WRITTEN RECORD, [facility] COVID-19 ([facility]), MRNA, LNP-S, PF, 30 MCG/0.3 ML DOSE 3 2020 208 complet ed PFR; [id number]; 2 [facility] COVID-19 ([facility]), MRNA, LNP-S, PF, 30 MCG/0.3 ML DOSE 2 2020 208 complet ed PFR; [id number]; 1 [facility] COVID-19 ([facility]), MRNA, LNP-S, PF, 30 MCG/0.3 ML DOSE 1 2020 208 complet ed PFR; [id number]; 1 [facility] INFLUENZA, INJECTABLE, MDCK, PRESERVATIVE FREE, QUADRIVALENT 2018 171 complet ed 02, Partner: [facility]. Administe red by: SABINA CABA (QWF=[phone]). Partner 04 Lot#: [id number] Mfr: SEQIRUS; Dosage: 0.5 [facility] ZOSTER RECOMBINANT 2 2017 187 complet ed [facility] ZOSTER RECOMBINANT 1 2017 187 complet ed [facility] INFLUENZA, UNSPECIFIED FORMULATION 2014 88 complet ed [facility] INFLUENZA, UNSPECIFIED FORMULATION 2012 88 complet ed [place] INFLUENZA, UNSPECIFIED FORMULATION 2011 88 complet ed [facility] INFLUENZA, UNSPECIFIED FORMULATION 2010 88 complet ed [facility] INFLUENZA, UNSPECIFIED FORMULATION 2009 88 complet ed [facility] INFLUENZA, UNSPECIFIED FORMULATION 2008 88 complet ed [facility] ZOSTER LIVE 2008 121 complet ed [facility] INFLUENZA, UNSPECIFIED FORMULATION 2007 88 complet ed [facility] INFLUENZA, UNSPECIFIED FORMULATION 2006 88 complet ed [facility] TDAP 2006 115 complet ed [place] INFLUENZA, UNSPECIFIED FORMULATION 2005 88 complet ed voice mail [facility] REFUSED PNEUMOVAX (HISTORICAL) 2004 complet ed [facility] INFLUENZA, UNSPECIFIED FORMULATION 2004 88 complet ed [facility] OUTSIDE PNEUMOVAX (HISTORICAL) 2004 109 complet ed [facility] INFLUENZA, UNSPECIFIED FORMULATION 2003 88 complet ed [facility] INFLUENZA, UNSPECIFIED FORMULATION 2000 88 complet ed [facility] Vital Signs Combined list of inpatient and outpatient Vital Signs from Department of [facility] and [facility], ranging from 12 months to all on record, depending upon the facility. Vital Sign Value Date Comments Source SYSTOLIC BLOOD PRESSURE 96 01/19/2024 09:51:44 [facility] DIASTOLIC BLOOD PRESSURE 60 01/19/2024 09:51:44 [facility] PULSE OXIMETRY 99 01/19/2024 09:51:44 S . [facility] WEIGHT 182.6 01/19/2024 09:51:[address] [facility] BMI 24 kg/m2 01/19/2024 09:51:44 . [facility] PAIN 3 01/19/2024 09:51:44 [facility] TEMPERATURE 98 01/19/2024 09:51:44 [facility] PULSE 70 01/19/2024 09:51:44 . [facility] RESPIRATION 18 01/19/2024 09:51:44 [facility] Encounters Combined list of: 1) Encounters from Department of Veterans Affairs facilities going backup to the last 18 months, not all [place] inpatient encounters are included; 2) Encounters from the Department of [facility] facilities going backup to 280 months. Location Location Details Encounter Type Encounter Number Reason For Visit Attending Provider ADM Date DC Date Status Disposition Source [facility] ADMN SARSCOV2 VACC 1 DOSE [id number] Diagnos is: ICD-10- CM Z00.00 Encntr for general adult medical exam w/o abnorma l finding s BRIAN,TARIQ BY R 01/18 [facility] Outpatient Encounter [id number] 10/12 [facility] Outpatient Encounter [id number] 10/13 [facility] Outpatient Encounter [id number] 10/14 [facility] Social History Combined list of available smoking, tobacco, and other social history from Department of Defense and Veterans Affairs facilities. Social History Type Response Date Comment Sourc e Tobacco smoking status NHIS [facility]ACCO FORMER USER 01/19/2024 [facility] of [facility]2024 [facility] History of tobacco use [place]-TO[place] FORMER USER 01/14/2023 [facility]/12[facility]2018 [facility] History of tobacco use QUIT TOBACCO >7 Y EARS AGO 03/12/2017 [facility] History of tobacco use QUIT TOBACCO >7 Y EARS AGO 03/12/2016 [facility] History of tobacco use QUIT TOBACCO >7 Y EARS AGO 02/27/2015 [facility] History of tobacco use QUIT TOBACCO >7 Y EARS AGO 12/19/2013 [facility] History of tobacco use QUIT TOBACCO >7 Y EARS AGO 12/13/2012 [facility] History of tobacco use QUIT TOBACCO >7 Y EARS AGO 12/29/2006 [facility] History of tobacco use CURRENT NON-TOBAC CO USER-HX OF USE 03/17/2006 [facility] History of tobacco use CURRENT NON-TOBAC CO USER-HX OF USE 06/12/2005 [facility] History of tobacco use CURRENT NON-TOBAC CO USER-HX OF USE 09/12/2004 [facility] Plan of Care List of future care activities from [facility] facilities. Additional future care activities may be listed in the Assessment and Plan section. Date/Time Care Activity Care Activity Detail Facili ty 01/19/2025 AMBULATORY - MEDICINE AMBULATORY - MEDICI NE [facility] Advance Directives List of completed, amended, or rescinded Advance Directives on record at [facility] facilities. An actual copy of the Directive is not included. Date Advance Directive Provider Source 02/02/2023 ADVANCE DIRECTIVE ALISON NELSON [facility]
--- OUTSIDE RECORDS SUMMARY | 2024-11-28 17:38 | XMS_ITS | Data Portability ---
Author Organization [facility] [employer], Main Office Address [address] [place] [address] Care Team Providers Care Employment Representative Name Role Phone YULIA JACKSON Primary Care Provider YULIA JACKSON Referring Provider TONY NDIAYE Patient Registration Manager [facility] IVAN STRANGE Project Accountant Assessment Encounter Date Assessment Date Assessment LastModified [...] D, 25-hydro xy, total, serum 2024 025 [facility] (Lab), [address] [place], [address], 5 17:45:27 CMP, serum or plasma 2024 025 [facility] (Lab), [address] [place], [address], 5 17:45:27 CBC w/ auto diff 2024 025 [facility] (Lab), [address] [place], [address], 5 17:45:27 lipid panel, serum 2024 025 [facility] (Lab), [address] [place], [address], 5 17:45:27 TSH, serum or plasma 2024 025 [facility] (Lab), [address] [place], [address], 5 17:45:27 glycohem oglobin, total, blood 2024 025 [facility] (Lab), [address] [place], [address], 5 17:45:27 microalb umin, urine 2024 025 [facility] (Lab), [address] [place], [address], 5 17:45:28 vitamin B12 + folate, serum or blood 2024 025 [facility] (Lab), [address] [place], [address], 5 17:45:27 vitamin D, 25-hydro xy, total, serum [address] (Lab), [address] [place], [address], 4 17:21:14 CMP, serum or plasma [address] (Lab), [address] [place], [address], 4 17:21:15 CBC w/ auto diff [address] (Lab), [address] [place], [address], 4 17:21:15 lipid panel, serum [address] (Lab), [address] [place], [address], 4 17:21:15 TSH, serum or plasma [address] (Lab), [address] [place], [address], 4 17:21:15 glycohem oglobin, total, blood [address] (Lab), [address] [place], [address], 4 17:21:15 microalb umin, urine [address] (Lab), [address] [place], [address], 4 17:21:15 vitamin B12 + folate, serum or blood [address] (Lab), [address] [place], [address], 4 17:21:14 vitamin D, 25-hydro xy, total, serum [address] (Lab), [address] [place], [address], 5 17:49:25 CMP, serum or plasma 2023 024 [facility] (Lab), [address] [place], [address], 4 13:39:05 CBC w/ auto diff 2023 [facility] (Lab), [address] [place], [address], 4 13:14:56 lipid panel, serum 2023 024 [facility] (Lab), [address] [place], [address], 4 13:39:09 TSH, serum or plasma 2023 024 [facility] (Lab), [address] [place], [address], 4 14:38:11 glycohem oglobin, total, blood 2023 [facility] (Lab), [address] [place], [address], 4 21:04:12 microalb umin, urine 2023 024 [facility] (Lab), [address] [place], [address], 4 14:44:42 vitamin B12 + folate, serum or blood [address] (Lab), [address] [place], [address], 5 17:49:25 vitamin D, 25-hydro xy, total, serum [address] (Lab), [address] [place], [address], 4 11:07:05 CMP, serum or plasma [address] (Lab), [address] [place], [address], 4 11:07:06 CBC w/ auto diff [address] (Lab), [address] [place], [address], 4 11:07:06 lipid panel, serum [address] (Lab), [address] [place], [address], 4 11:07:06 TSH, serum or plasma [address] (Lab), [address] [place], [address], 4 11:07:06 glycohem oglobin, total, blood [address] (Lab), [address] [place], [address], 4 11:07:05 microalb umin, urine [address] (Lab), [address] [place], [address], 4 11:07:05 vitamin B12 + folate, serum or blood [address] (Lab), [address] [place], [address], 4 11:07:05 vitamin D, 25-hydro xy, total, serum [address] (Lab), [address] [place], [address], 4 14:05:52 CMP, serum or plasma 2023 024 [facility] (Lab), [address] [place], [address], 4 20:08:33 CBC w/ auto diff 2023 024 [facility] (Lab), [address] [place], [address], 4 19:17:43 lipid panel, serum 2023 024 [facility] (Lab), [address] [place], [address], 4 20:08:38 TSH, serum or plasma 2023 024 [facility] (Lab), [address] [place], [address], 4 20:28:35 glycohem oglobin, total, blood 2023 024 [facility] (Lab), [address] [place], [address], 4 20:06:51 microalb umin, urine 2023 024 [facility] (Lab), [address] [place], [address], 4 16:33:50 vitamin B12 + folate, serum or blood [address] (Lab), [address] [place], [address], 4 14:05:52 Referral nephrolo gist referral 2024 025 [place], [address], [address], [place], [address], 5 08:04:38 pain manageme nt referral 2024 025 [email or web address] Molly Stevenson MD, [address], [place], [address], 5 08:04:39 cardiolo gist referral 2024 025 [email or web address] Rangel Slaughter MD, [address], [address], [place], [address], 5 08:04:[address] referral 2024 025 [email or web address] Kaveh MCKNIGHTM, [address], [place], [address], 5 08:05:05 nephrolo gist referral 2023 024 [email or web address] [place], [address] [address], [address], [place], [address], 4 11:40:46 pain manageme nt referral 2023 024 [email or web address] Molly Stevenson MD, [address], [place], [address], 4 11:40:47 hematolo gist referral 2023 024 [email or web address] Dylon Guzman MD, [address], [place], [address], 11:41:50 cardiolo gist referral 2023 024 [email or web address] Rangel Slaughter MD, [address] [facility], [address], [place], [address], 11:40:[address] referral 2023 024 [email or web address] Kaveh Godfrey DPM, [address], [place], [address], 4 11:41:50 nephrolo gist referral 2023 024 [email or web address] [place], [address] [address], [address], [place], [address], 4 12:39:58 pain manageme nt referral 2023 024 Molly Stevenson MD, [address], [place], [address], 4 12:40:25 hematolo gist referral 2023 024 [email or web address] 2 Dylon Guzman MD, [address], [place], [address], 5 09:09:37 cardiolo gist referral 2023 024 [email or web address] Rangel Slaughter MD, [address], [address], [place], [address], 4 12:38:[address] referral 2023 024 [email or web address] 2 Kaveh MCKNIGHTM, [address], [place], [address], 5 09:09:37 nephrolo gist referral 2023 024 [email or web address] [place], [address] [address], [address], [place], [address], 4 12:40:03 pain manageme nt referral 2023 024 [email or web address] [facility], [address], [address], [place], [address], 4 12:40:49 hematolo gist referral 2023 024 Dylon Guzman MD, [address], [place], [address], 4 12:21:31 cardiolo gist referral 2023 024 Rangel Slaughter MD, [address], [address], [place], [address], 4 12:21:[address] referral 2023 024 [email or web address] Kaveh Godfrey DPM, [address], [place], [address], 4 12:21:32 nephrolo gist referral 2023 024 [place], [address] [address], [address], [place], [address], 4 14:06:14 pain manageme nt referral 2023 024 [email or web address] [facility], [address], [address], [place], [address], 4 08:52:29 hematolo gist referral 2023 024 [email or web address] Dylon Guzman MD, [address], [place], [address], 4 14:06:12 cardiolo gist referral 2023 024 [email or web address] Rangel Slaughter MD, [address] [facility], [address], [place], [address], 4 08:52:[address] referral 2023 024 [email or web address] Kaveh Godfrey DPM, [address], [place], [address], 4 14:06:13 Procedures None recorded . Surgeries None recorded . Imaging None recorded . Medication Orders Kerendia 20 mg tablet 2024 025 [facility] #10239, [address] [place] [address], [id number], 5 17:12:34 ferrous sulfate 325 mg (65 mg iron) tablet 2024 025 [facility], [address], [place], [id number], 5 17:12:33 Kerendia 20 mg tablet 2023 024 [email or web address] [facility] #47800, [address], [place], [id number], 4 15:59:20 Kerendia 20 mg tablet 2023 024 [facility] #69854, [address], [id number], 4 17:21:31 atorvast atin 80 mg tablet 2023 [email or web address] [facility] #62780, [address], [id number], 15:24:04 Kerendia 20 mg tablet 2023 024 [facility] #63486, [address] [facility] [address] [place] [address], [id number], 15:09:56 Kerendia 20 mg tablet 2023 024 [facility] #29352, [address] [place] [address], [id number], 15:47:56 Patient TargetsNo targets recorded. Patient Instructions Encounter Date Encounter Id Patient Instructions Last Modified By Organization Details Last Modified Time 09/28/2023 [id number] diabetic eye exam* [email or web address] Not avail able 03/28/2024 14:05:36 05/11/2024 [id number] Due to the COVID -19 (Novel Coronavirus) pandemic, it is within this context (and with the understanding that this method of patient encounter is in the patient s best interest as well as the health and safety of other patients and the public) that telehealth is being provided for this patient encounter rather than a jkkt-[id number] visit. This patient encounter is appropriate at [...] the patient. Not available 05/11/2024 16:40:58 07/20/2024 [id number] dementia rating scale-2* [email or web address] Not available 07/20/2024 17:02:01 alcohol misuse* [email or web address] Not available 07/20/2024 17:02:15 depression screening* [email or web address] Not available 07/20/2024 17:02:30 Timed Up and Go test (TUG)* [email or web address] Not available 07/20/2024 17:02:47 multi-dimensiona l health assessment questionnaire* [email or web address] Not available 07/20/2024 17:01:52 Personalized Hea lt Plan and Screening Recommendations Advance Directives [...] I have no recommendations Depression Screening: Negative [email or web address] Not available 07/20/2024 17:04:03 Reason for Referral Referring Physician: Yulia Jackson, Internal Medicine, Encounter Date: 09/28/2023 Money Market Clerk Referral for Type 2 diabetes mellitus without complication Referring Physician: Yulia Jackson Internal Medicine, Encounter Date: 09/28/2023 Patient Registration Manager Referral for Es sential hypertension Referring Physician: Yulia Jackson Internal Medicine, Encounter Date: 09/28/2023 Project Accountant Referral for Hy percalcemia Referring Physician: Courtney Farley Medicine, Encounter Date: 09/28/2023 Pain Management Referral for Low back pain Referring Physician: Yulia Jackson Internal Medicine, Encounter Date: 09/28/2023 Referring Physician: Yulia Jackson Internal Medicine, Encounter Date: 01/25/2024 Money Market Clerk Referral for Type 2 diabetes mellitus without complication Referring Physician: Courtney Farley, Encounter Date: 01/25/2024 Patient Registration Manager Referral for Es sential hypertension Referring Physician: Courtney Farley, Encounter Date: 01/25/2024 Project Accountant Referral for Hy percalcemia Referring Physician: Courtney Farley, Encounter Date: 01/25/2024 Pain Management Referral for Low back pain Referring Physician: Courtney Farley, Encounter Date: 01/25/2024 Referring Physician: Courtney Farley, Encounter Date: 05/11/2024 Money Market Clerk Referral for Type 2 diabetes mellitus without complication Referring Physician: Courtney Farley, Encounter Date: 05/11/2024 Patient Registration Manager Referral for Es sential hypertension Referring Physician: Courtney Farley, Encounter Date: 05/11/2024 Project Accountant Referral for Hy percalcemia Referring Physician: Courtney Farley, Encounter Date: 05/11/2024 Pain Management Referral for Low back pain Referring Physician: Yulia Jackson Internal Medicine, Encounter Date: 05/11/2024 Money Market Clerk Referral for Type 2 diabetes mellitus without complication Referring Physician: Yulia Jackson Internal Medicine, Encounter Date: 07/20/2024 Patient Registration Manager Referral for Es sential hypertension Referring Physician: Yulia Jackson Internal Medicine, Encounter Date: 07/20/2024 Project Accountant Referral for Hy percalcemia Referring Physician: Yulia Jackson Internal Medicine, Encounter Date: 07/20/2024 Pain Management Referral for Low back pain Referring Physician: Yulia Jackson Internal Medicine, Encounter Date: 07/20/2024 Referring Physician: Yulia Jackson Internal Medicine, Encounter Date: 07/20/2024 Money Market Clerk Referral for Type 2 diabetes mellitus without complication Referring Physician: Courtney Farley Medicine, Encounter Date: 08/17/2024 Patient Registration Manager Referral for Es sential hypertension Referring Physician: Courtney Farley Medicine, Encounter Date: 08/17/2024 Project Accountant Referral for Hy percalcemia Referring Physician: Yulia [...] 4.6 x10'3 /uL 4.2-10 .8 Not Available [facility] (Lab) [address] [place], [address], 09/28/2023 19:17:43 09/28/19 24 09/28/2023 CBC/C OMPLE TE BLD COUNT W/DIF F red blood cells 3.82 x10'6 /uL 4.10-5 .80 low Not Available [facility] (Lab) [address] [place], [address], 09/28/2023 19:17:43 09/28/19 24 09/28/2023 CBC/C OMPLE TE BLD COUNT W/DIF F hemoglobin 11.4 g/dL 13.2-1 7.0 low Not Available [facility] (Lab) [address] [place], [address], 09/28/2023 19:17:43 09/28/19 24 09/28/2023 CBC/C OMPLE TE BLD COUNT W/DIF F hematocrit 36.6 % 39.3-5 0.0 low Not Available [facility] (Lab) [address] [place], [address], 09/28/2023 19:17:43 09/28/19 24 09/28/2023 CBC/C OMPLE TE BLD COUNT W/DIF F mean red cell volume 95.8 fL 80.0-9 7.0 Not Available [facility] (Lab) [address] [place], [address], 09/28/2023 19:17:43 09/28/19 24 09/28/2023 CBC/C OMPLE TE BLD COUNT W/DIF F mean red cell hemoglobin 29.8 pg 27.0-3 3.0 Not Available [facility] (Lab) [address] [place], [address], 09/28/2023 19:17:43 09/28/19 24 09/28/2023 CBC/C OMPLE TE BLD COUNT W/DIF F mean RBC HGB concentratio n 31.1 g/dL 31.0-3 6.0 Not Available [facility] (Lab) [address] [place], [address], 09/28/2023 19:17:43 09/28/19 24 09/28/2023 CBC/C OMPLE TE BLD COUNT W/DIF F red cell distribution width 13.2 % 11.8-1 5.5 Not Available [facility] (Lab) [address] [place], [address], 09/28/2023 19:17:43 09/28/19 24 09/28/2023 CBC/C OMPLE TE BLD COUNT W/DIF F platelets 202 x10'3 /uL 150-40 0 Not Available [facility] (Lab) [address] [place], [address], 09/28/2023 19:17:43 09/28/19 24 09/28/2023 CBC/C OMPLE TE BLD COUNT W/DIF F mean platelet volume 10.7 fL 9.0-12 .4 Not Available [facility] (Lab) [address] [place], [address], 09/28/2023 19:17:43 09/28/19 24 09/28/2023 CBC/C OMPLE TE BLD COUNT W/DIF F neutrophils 69.9 % 39.0-7 2.0 Not Available [facility] (Lab) [address] [place], [address], 09/28/2023 19:17:43 09/28/19 24 09/28/2023 CBC/C OMPLE TE BLD COUNT W/DIF F lymphocytes 18.9 % 16.0-4 7.0 Not Available [facility] (Lab) [address] [place], [address], 09/28/2023 19:17:43 09/28/19 24 09/28/2023 CBC/C OMPLE TE BLD COUNT W/DIF F monocytes 8.1 % 5.0-12 .0 Not Available [facility] (Lab) [address] [place], [address], 09/28/2023 19:17:43 09/28/19 24 09/28/2023 CBC/C OMPLE TE BLD COUNT W/DIF F eosinophils 2.0 % 1.0-7. 0 Not Available [facility] (Lab) [address] [place], [address], 09/28/2023 19:17:43 09/28/19 24 09/28/2023 CBC/C OMPLE TE BLD COUNT W/DIF F basophils 0.9 % 0.0-2. 0 Not Available [facility] (Lab) [address] [place], [address], 09/28/2023 19:17:43 09/28/19 24 09/28/2023 CBC/C OMPLE TE BLD COUNT W/DIF F immature granulocytes 0.2 % 0.00-0 .50 Not Available [facility] (Lab) [address] [place], [address], 09/28/2023 19:17:43 09/28/19 24 09/28/2023 CBC/C OMPLE TE BLD COUNT W/DIF F neutrophils, absolute count 3.18 x10'3 /uL 1.5-8. 0 Not Available [facility] (Lab) [address] [place], [address], 09/28/2023 19:17:43 09/28/19 24 09/28/2023 CBC/C OMPLE TE BLD COUNT W/DIF F lymphocytes, absolute count 0.86 x10'3 /uL 1.07-3 .43 low Not Available [facility] (Lab) [address] [place], [address], 09/28/2023 19:17:43 09/28/19 24 09/28/2023 CBC/C OMPLE TE BLD COUNT W/DIF F monocytes, absolute count 0.37 x10'3 /uL 0.29-0 .99 Not Available [facility] (Lab) [address] [place], [address], 09/28/2023 19:17:43 09/28/19 24 09/28/2023 CBC/C OMPLE TE BLD COUNT W/DIF F eosinophils, absolute count 0.09 x10'3 /uL 0.02-0 .53 Not Available [facility] (Lab) [address] [place], [address], 09/28/2023 19:17:43 09/28/19 24 09/28/2023 CBC/C OMPLE TE BLD COUNT W/DIF F basophils, absolute count 0.04 x10'3 /uL 0.01-0 .08 Not Available [facility] (Lab) [address] [place], [address], 09/28/2023 19:17:43 09/28/19 24 09/28/2023 CBC/C OMPLE TE BLD COUNT W/DIF F immature granulocytes ,absolute 0.01 x10'3 /uL 0.00-0 .05 Not Available [facility] (Lab) [address] [place], [address], 09/28/2023 19:17:43 09/28/19 24 09/28/2023 CBC/C OMPLE TE BLD COUNT W/DIF F nucleated red blood cells 0.0 % -0 Not Available [facility] (Lab) [address] [place], [address], 09/28/2023 19:17:43 09/28/19 24 09/28/2023 CBC/C OMPLE TE BLD COUNT W/DIF F NRBC# 0.00 x10'3 /uL Not Available [facility] (Lab) [address] [place], [address], 09/28/2023 19:17:43 09/28/19 24 09/28/2023 HEMOG LOBIN A1C HA1C 6.5 % 4.0-6. 0 high Diabe gary Rekhae cameron Crite cristofer: <5.7% Consi stent with absen ce of diabe gary 5.7-6 .4% Consi stent with incre ased risk for diabe gary (pred iabet es) >OR=6 .5% Consi stent with diabe gary REFER ENCE: Diabe gary Care 2016, 39( ppl.1 ):s13 -s22 Not Available [facility] (Lab) [address] [place], [address], 09/28/2023 20:06:51 09/28/19 24 09/28/2023 COMPR EHENS MICHAEL METAB OLIC PANEL sodium 143 mmol/ L 137-14 5 Not Available [facility] (Lab) [address] [place], [address], 09/28/2023 20:08:33 09/28/19 24 09/28/2023 COMPR EHENS MICHAEL METAB OLIC PANEL potassium 4.4 mmol/ L 3.5-5. 1 Not Available [facility] (Lab) [address] [place], [address], 09/28/2023 20:08:33 09/28/19 24 09/28/2023 COMPR EHENS MICHAEL METAB OLIC PANEL chloride 108 mmol/ L 98-107 high Not Available [facility] (Lab) [address] [place], [address], 09/28/2023 20:08:33 09/28/19 24 09/28/2023 COMPR EHENS MICHAEL METAB OLIC PANEL carbon dioxide 28 mmol/ L 22-30 Not Available [facility] (Lab) [address] [place], [address], 09/28/2023 20:08:33 09/28/19 24 09/28/2023 COMPR EHENS MICHAEL METAB OLIC PANEL anion gap 11.4 mmol/ L 14-22 low Not Available [facility] (Lab) [address] [place], [address], 09/28/2023 20:08:33 09/28/19 24 09/28/2023 COMPR EHENS MICHAEL METAB OLIC PANEL glucose 106 mg/dL 70-99 high Not Available [facility] (Lab) [address] [place], [address], 09/28/2023 20:08:33 09/28/19 24 09/28/2023 COMPR EHENS MICHAEL METAB OLIC PANEL BUN 24 mg/dL 8-19 high Not Available [facility] (Lab) [address] [place], [address], 09/28/2023 20:08:33 09/28/19 24 09/28/2023 COMPR EHENS MICHAEL METAB OLIC PANEL creatinine 0.90 mg/dL 0.66-1 .25 Not Available [facility] (Lab) [address] [place], [address], 09/28/2023 20:08:33 09/28/19 24 09/28/2023 COMPR EHENS MICHAEL METAB OLIC PANEL GFR >60 Refer ence Range : [place] ge GFR Healt hy Adult : >60 [...] of age, a pedia tric GFR calcu latmelly is avail able on the [facility] websi te: https :[email or web address] oliveira.o rg/pr ofess ional s/kdo qi/gf r_cal culat or Not Available [facility] (Lab) [address] [place], [address], 09/28/2023 20:08:33 09/28/19 24 09/28/2023 COMPR EHENS MICHAEL METAB OLIC PANEL alkaline phosphatase 84 U/L 38-126 Not Available [facility] (Lab) [address] [place], [address], 09/28/2023 20:08:33 09/28/19 24 09/28/2023 COMPR EHENS MICHAEL METAB OLIC PANEL alanine aminotransfe rase 13 U/L 0-50 Not Available [facility] (Lab) [address] [place], [address], 09/28/2023 20:08:33 09/28/19 24 09/28/2023 COMPR EHENS MICHAEL METAB OLIC PANEL aspartate aminotransfe rase 19 U/L 15-46 Not Available [facility] (Lab) [address] [place], [address], 09/28/2023 20:08:33 09/28/19 24 09/28/2023 COMPR EHENS MICHAEL METAB OLIC PANEL bilirubin, total 1.10 mg/dL 0.20-1 .30 Not Available [facility] (Lab) [address] [place], [address], 09/28/2023 20:08:33 09/28/19 24 09/28/2023 COMPR EHENS MICHAEL METAB OLIC PANEL calcium 9.7 mg/dL 8.4-10 .2 Not Available [facility] (Lab) [address] [place], [address], 09/28/2023 20:08:33 09/28/19 24 09/28/2023 COMPR EHENS MICHAEL METAB OLIC PANEL total protein 6.5 g/dL 6.3-8. 2 Not Available [facility] (Lab) [address] [place], [address], 09/28/2023 20:08:33 09/28/19 24 09/28/2023 COMPR EHENS MICHAEL METAB OLIC PANEL albumin 3.9 g/dL 3.0-4. 4 Not Available [facility] (Lab) [address] [place], [address], 09/28/2023 20:08:33 09/28/19 24 09/28/2023 COMPR EHENS MICHAEL METAB OLIC PANEL globulin 2.6 g/dL 2.6-4. 2 Not Available [facility] (Lab) [address] [place], [address], 09/28/2023 20:08:33 09/28/19 24 09/28/2023 COMPR EHENS MICHAEL METAB OLIC PANEL A/G ratio 1.5 ratio 1.0-2. 0 Not Available [facility] (Lab) [address] [place], [address], 09/28/2023 20:08:33 09/28/19 24 09/28/2023 LIPID PANEL cholesterol 111 mg/dL 140-19 9 low NIH KRISTEN NSUS RECOM MENDA TION FOR GUSTAVO STERO L: ADULT CHILD LOW RISK: <200 <170 BORDE RLINE : <200- 239 ----- HIGH RISK: >240 >200 Not Available [facility] (Lab) [address] [place], [address], 09/28/2023 20:08:38 09/28/19 24 09/28/2023 LIPID PANEL triglyceride s 143 mg/dL 0-150 NIH KRISTEN NSUS REPOR T RECOM MENDA TION FOR TRIGL YCERI SHANI: ADULT CHILD LOW RISK: <150 ----- BODER LINE: 150-1 99 ----- HIGH RISK: >200 ----- Not Available [facility] (Lab) [address] [place], [address], 09/28/2023 20:08:38 09/28/19 24 09/28/2023 LIPID PANEL HDL cholesterol 26 mg/dL 40- low Not Available [facility] (Lab) [address] [place], [address], 09/28/2023 20:08:38 09/28/19 24 09/28/2023 LIPID PANEL LDL cholesterol, calculated 56 mg/dL 0-130 NIH KRISTEN NSUS REPOR T RECOM MENDA TIONS FOR LDL: ADULT CHILD LOW RISK <130 <110 (OPTI MAL LDL) <100 ----- TAMMIEDE RLINE : 130-1 59 ----- HIGH RISK: >160 >130 A TRIGL YCERI DE RESUL T >400 INVAL IDATE S THE CALCU LATIO N FOR LDL FRACT IONAT ION - THE LDL RESUL T WILL NOT BE REPOR MIKE. Not Available [facility] (Lab) [address] [place], [address], 09/28/2023 20:08:38 09/28/19 24 09/28/2023 VITAM IN D 25-HY DROXY [id number] 63.7 NG/mL 30-100 Vitam in D Statu s: Defic ient: <20 ng/mL Insuf ficie nt: 20-29 ng/mL Suffi cient : 30-10 0 ng/mL Not Available [facility] (Lab) [address] [place], [address], 09/28/2023 20:27:09 09/28/19 24 09/28/2023 TSH W/REF BLANCA FT4 TSH with reflex free T4 1.920 uIU/m L 0.465- 4.680 Not Available [facility] (Lab) [address] [place], [address], 09/28/2023 20:28:35 01/22/20 24 01/22/2024 CBC/C OMPLE TE BLD COUNT W/DIF F white blood cells 3.8 x10'3 /uL 4.2-10 .8 low Not Available [facility] (Lab) [address] [place], [address], 01/22/2024 13:47:16 01/22/20 24 01/22/2024 CBC/C OMPLE TE BLD COUNT W/DIF F red blood cells 3.95 x10'6 /uL 4.10-5 .80 low Not Available [facility] (Lab) [address] [place], [address], 01/22/2024 13:47:16 01/22/20 24 01/22/2024 CBC/C OMPLE TE BLD COUNT W/DIF F hemoglobin 10.4 g/dL 13.2-1 7.0 low Not Available [facility] (Lab) [address] [place], [address], 01/22/2024 13:47:16 01/22/20 24 01/22/2024 CBC/C OMPLE TE BLD COUNT W/DIF F hematocrit 34.8 % 39.3-5 0.0 low Not Available [facility] (Lab) [address] [place], [address], 01/22/2024 13:47:16 01/22/20 24 01/22/2024 CBC/C OMPLE TE BLD COUNT W/DIF F mean red cell volume 88.1 fL 80.0-9 7.0 Not Available [facility] (Lab) [address] [place], [address], 01/22/2024 13:47:16 01/22/20 24 01/22/2024 CBC/C OMPLE TE BLD COUNT W/DIF F mean red cell hemoglobin 26.3 pg 27.0-3 3.0 low Not Available [facility] (Lab) [address] [place], [address], 01/22/2024 13:47:16 01/22/20 24 01/22/2024 CBC/C OMPLE TE BLD COUNT W/DIF F mean RBC HGB concentratio n 29.9 g/dL 31.0-3 6.0 low Not Available [facility] (Lab) [address] [place], [address], 01/22/2024 13:47:16 01/22/20 24 01/22/2024 CBC/C OMPLE TE BLD COUNT W/DIF F red cell distribution width 15.1 % 11.8-1 5.5 Not Available [facility] (Lab) [address] [place], [address], 01/22/2024 13:47:16 01/22/20 24 01/22/2024 CBC/C OMPLE TE BLD COUNT W/DIF F platelets 212 x10'3 /uL 150-40 0 Not Available [facility] (Lab) [address] [place], [address], 01/22/2024 13:47:16 01/22/20 24 01/22/2024 CBC/C OMPLE TE BLD COUNT W/DIF F mean platelet volume 10.8 fL 9.0-12 .4 Not Available [facility] (Lab) [address] [place], [address], 01/22/2024 13:47:16 01/22/20 24 01/22/2024 CBC/C OMPLE TE BLD COUNT W/DIF F neutrophils 67.9 % 39.0-7 2.0 Not Available [facility] (Lab) [address] [place], [address], 01/22/2024 13:47:16 01/22/20 24 01/22/2024 CBC/C OMPLE TE BLD COUNT W/DIF F lymphocytes 21.1 % 16.0-4 7.0 Not Available [facility] (Lab) [address] [place], [address], 01/22/2024 13:47:16 01/22/20 24 01/22/2024 CBC/C OMPLE TE BLD COUNT W/DIF F monocytes 8.9 % 5.0-12 .0 Not Available [facility] (Lab) [address] [place], [address], 01/22/2024 13:47:16 01/22/2001/22/2024 CBC/C OMPLE TE BLD COUNT W/DIF F eosinophils 1.3 % 1.0-7. 0 Not Available [facility] (Lab) [address] [place], [address], 01/22/2024 13:47:16 01/22/2001/22/2024 CBC/C OMPLE TE BLD COUNT W/DIF F basophils 0.5 % 0.0-2. 0 Not Available [facility] (Lab) [address] [place], [address], 01/22/2024 13:47:16 01/22/2001/22/2024 CBC/C OMPLE TE BLD COUNT W/DIF F immature granulocytes 0.3 % 0.00-0 .50 Not Available [facility] (Lab) [address] [place], [address], 01/22/2024 13:47:16 01/22/2001/22/2024 CBC/C OMPLE TE BLD COUNT W/DIF F neutrophils, absolute count 2.60 x10'3 /uL 1.5-8. 0 Not Available [facility] (Lab) [address] [place], [address], 01/22/2024 13:47:16 01/22/20 24 01/22/2024 CBC/C OMPLE TE BLD COUNT W/DIF F lymphocytes, absolute count 0.81 x10'3 /uL 1.07-3 .43 low Not Available [facility] (Lab) [address] [place], [address], 01/22/2024 13:47:16 01/22/20 24 01/22/2024 CBC/C OMPLE TE BLD COUNT W/DIF F monocytes, absolute count 0.34 x10'3 /uL 0.29-0 .99 Not Available [facility] (Lab) [address] [place], [address], 01/22/2024 13:47:16 01/22/20 24 01/22/2024 CBC/C OMPLE TE BLD COUNT W/DIF F eosinophils, absolute count 0.05 x10'3 /uL 0.02-0 .53 Not Available [facility] (Lab) [address] [place], [address], 01/22/2024 13:47:16 01/22/20 24 01/22/2024 CBC/C OMPLE TE BLD COUNT W/DIF F basophils, absolute count 0.02 x10'3 /uL 0.01-0 .08 Not Available [facility] (Lab) [address] [place], [address], 01/22/2024 13:47:16 01/22/2001/22/2024 CBC/C OMPLE TE BLD COUNT W/DIF F immature granulocytes ,absolute 0.01 x10'3 /uL 0.00-0 .05 Not Available [facility] (Lab) [address] [place], [address], 01/22/2024 13:47:16 01/22/20 24 01/22/2024 CBC/C OMPLE TE BLD COUNT W/DIF F nucleated red blood cells 0.0 % -0 Not Available [facility] (Lab) [address] [place], [address], 01/22/2024 13:47:16 01/22/20 24 01/22/2024 CBC/C OMPLE TE BLD COUNT W/DIF F NRBC# 0.00 x10'3 /uL Not Available [facility] (Lab) [address] [place], [address], 01/22/2024 13:47:16 01/22/20 24 01/22/2024 CBC/C OMPLE TE BLD COUNT W/DIF F hypochromia OCCASI ONAL Not Available [facility] (Lab) [address] [place], [address], 01/22/2024 13:47:16 01/22/20 24 01/22/2024 CBC/C OMPLE TE BLD COUNT W/DIF F microcytosis OCCASI ONAL Not Available [facility] (Lab) [address] [place], [address], 01/22/2024 13:47:16 01/22/20 24 01/22/2024 COMPR EHENS MICHAEL METAB OLIC PANEL sodium 140 mmol/ L 137-14 5 Not Available [facility] (Lab) [address] [place], [address], 01/22/2024 13:39:36 01/22/20 24 01/22/2024 COMPR EHENS MICHAEL METAB OLIC PANEL potassium 4.0 mmol/ L 3.5-5. 1 Not Available [facility] (Lab) [address] [place], [address], 01/22/2024 13:39:36 01/22/20 24 01/22/2024 COMPR EHENS MICHAEL METAB OLIC PANEL chloride 111 mmol/ L 98-107 high Not Available [facility] (Lab) [address] [place], [address], 01/22/2024 13:39:36 01/22/20 24 01/22/2024 COMPR EHENS MICHAEL METAB OLIC PANEL carbon dioxide 26 mmol/ L 22-30 Not Available [facility] (Lab) [address] [place], [address], 01/22/2024 13:39:36 01/22/20 24 01/22/2024 COMPR EHENS MICHAEL METAB OLIC PANEL anion gap 7.0 mmol/ L 14-22 low Not Available [facility] (Lab) [address] [place], [address], 01/22/2024 13:39:36 01/22/20 24 01/22/2024 COMPR EHENS MICHAEL METAB OLIC PANEL glucose 125 mg/dL 70-99 high Not Available [facility] (Lab) [address] [place], [address], 01/22/2024 13:39:36 01/22/20 24 01/22/2024 COMPR EHENS MICHAEL METAB OLIC PANEL BUN 29 mg/dL 8-19 high Not Available [facility] (Lab) [address] [place], [address], 01/22/2024 13:39:36 01/22/20 24 01/22/2024 COMPR EHENS MICHAEL METAB OLIC PANEL creatinine 1.02 mg/dL 0.66-1 .25 Not Available [facility] (Lab) [address] [place], [address], 01/22/2024 13:39:36 01/22/20 24 01/22/2024 COMPR EHENS MICHAEL METAB OLIC PANEL GFR >60 Refer ence Range : [place] ge GFR Healt hy Adult : >60 [...] calcu lator is avail able on the [facility] websi te: https :[email or web address]/pr kennedyess ional s/kdo qi/gf r_cal culat or Not Available [facility] (Lab) [address] [place], [address], 01/22/2024 13:39:36 01/22/20 24 01/22/2024 COMPR EHENS MICHAEL METAB OLIC PANEL alkaline phosphatase 99 U/L 38-126 Not Available [facility] (Lab) [address] [place], [address], 01/22/2024 13:39:36 01/22/20 24 01/22/2024 COMPR EHENS MICHAEL METAB OLIC PANEL alanine aminotransfe rase 18 U/L 0-50 Not Available [facility] (Lab) [address] [place], [address], 01/22/2024 13:39:36 01/22/20 24 01/22/2024 COMPR EHENS MICHAEL METAB OLIC PANEL aspartate aminotransfe rase 25 U/L 15-46 Not Available [facility] (Lab) [address] [place], [address], 01/22/2024 13:39:36 01/22/20 24 01/22/2024 COMPR EHENS MICHAEL METAB OLIC PANEL bilirubin, total 0.60 mg/dL 0.20-1 .30 Not Available [facility] (Lab) [address] [place], [address], 01/22/2024 13:39:36 01/22/20 24 01/22/2024 COMPR EHENS MICHAEL METAB OLIC PANEL calcium 9.1 mg/dL 8.4-10 .2 Not Available [facility] (Lab) [address] [place], [address], 01/22/2024 13:39:36 01/22/20 24 01/22/2024 COMPR EHENS MICHAEL METAB OLIC PANEL total protein 6.5 g/dL 6.3-8. 2 Not Available [facility] (Lab) [address] [place], [address], 01/22/2024 13:39:36 01/22/20 24 01/22/2024 COMPR EHENS MICHAEL METAB OLIC PANEL albumin 3.7 g/dL 3.0-4. 4 Not Available [facility] (Lab) [address] [place], [address], 01/22/2024 13:39:36 01/22/20 24 01/22/2024 COMPR EHENS MICHAEL METAB OLIC PANEL globulin 2.8 g/dL 2.6-4. 2 Not Available [facility] (Lab) [address] [place], [address], 01/22/2024 13:39:36 01/22/20 24 01/22/2024 COMPR EHENS MICHAEL METAB OLIC PANEL A/G ratio 1.3 ratio 1.0-2. 0 Not Available [facility] (Lab) [address] [place], [address], 01/22/2024 13:39:36 01/22/20 24 01/22/2024 LIPID PANEL cholesterol 169 mg/dL 140-19 9 NIH KRISTEN NSUS RECOM MENDA TION FOR GUSTAVO STERO L: ADULT CHILD LOW RISK: <200 <170 BORDE RLINE : <200- 239 ----- HIGH RISK: >240 >200 Not Available [facility] (Lab) [address] [place], [address], 01/22/2024 13:39:40 01/22/20 24 01/22/2024 LIPID PANEL triglyceride s 147 mg/dL 0-150 NIH KRISTEN NSUS REPOR T RECOM MENDA TION FOR TRIGL YCERI SHANI: ADULT CHILD LOW RISK: <150 ----- BODER LINE: 150-1 99 ----- HIGH RISK: >200 ----- Not Available [facility] (Lab) [address] [place], [address], 01/22/2024 13:39:40 01/22/20 24 01/22/2024 LIPID PANEL HDL cholesterol 25 mg/dL 40- low Not Available [facility] (Lab) [address] [place], [address], 01/22/2024 13:39:40 01/22/20 24 01/22/2024 LIPID PANEL [...] WILL NOT BE REPOR MIKE. Not Available [facility] (Lab) [address] [place], [address], 01/22/2024 13:39:40 01/22/20 24 01/22/2024 TSH W/REF BLANCA FT4 TSH with reflex free T4 1.810 uIU/m L 0.465- 4.680 Not Available [facility] (Lab) [address] [place], [address], 01/22/2024 14:01:24 01/22/20 24 01/22/2024 VITAM IN D 25-HY DROXY [id number] 54.5 NG/mL 30-100 Vitam in D Statu s: Defic ient: <20 ng/mL Insuf ficie nt: 20-29 ng/mL Suffi cient : 30-10 0 ng/mL Not Available [facility] (Lab) [address] [place], [address], 01/22/2024 15:25:09 01/22/20 24 01/22/2024 VITAM IN B12 (MARSHAL RITO ) vb12 >1000 pg/mL 239-93 1 high Not Available [facility] (Lab) [address] [place], [address], 01/22/2024 16:08:55 01/22/20 24 01/22/2024 FOLAT E, SERUM /PLAS MA folate 7.45 NG/mL 2.76-2 0.0 Not Available [facility] (Lab) [address] [place], [address], 01/22/2024 16:08:57 01/22/20 24 01/22/2024 MICRO ALBUM IN RANDO M URINE microalbumin , urine 64.3 mg/L 0.0-16 .6 high Not Available [facility] (Lab) [address] [place], [address], 01/22/2024 16:33:50 01/22/20 24 01/23/2024 HEMOG LOBIN A1C HA1C 6.7 % 4.0-6. 0 high Diabe gary Scree cameron Crite cristofer: <5.7% Consi stent with absen ce of diabe gary 5.7-6 .4% Consi stent with incre ased risk for diabe gary (pred iabet es) >OR=6 .5% Consi stent with diabe agry REFER ENCE: Diabe gary Care 2016, 39(Moreno ppl.1 ):s13 -s22 Not Available [facility] (Lab) [address] [place], [address], 01/23/2024 21:06:59 06/01/2006/01/2024 CBC/C OMPLE TE BLD COUNT W/DIF F white blood cells 3.8 x10'3 /uL 4.2-10 .8 low Not Available [facility] (Lab) [address] [place], [address], 06/01/2024 14:26:05 06/01/2006/01/2024 CBC/C OMPLE TE BLD COUNT W/DIF F red blood cells 3.66 x10'6 /uL 4.10-5 .80 low Not Available [facility] (Lab) [address] [place], [address], 06/01/2024 14:26:05 06/01/2006/01/2024 CBC/C OMPLE TE BLD COUNT W/DIF F hemoglobin 9.1 g/dL 13.2-1 7.0 low Not Available [facility] (Lab) [address] [place], [address], 06/01/2024 14:26:05 06/01/2006/01/2024 CBC/C OMPLE TE BLD COUNT W/DIF F hematocrit 31.2 % 39.3-5 0.0 low Not Available [facility] (Lab) [address] [place], [address], 06/01/2024 14:26:05 06/01/2006/01/2024 CBC/C OMPLE TE BLD COUNT W/DIF F mean red cell volume 85.2 fL 80.0-9 7.0 Not Available [facility] (Lab) [address] [place], [address], 06/01/2024 14:26:05 06/01/20 24 06/01/2024 CBC/C OMPLE TE BLD COUNT W/DIF F mean red cell hemoglobin 24.9 pg 27.0-3 3.0 low Not Available [facility] (Lab) [address] [place], [address], 06/01/2024 14:26:05 06/01/2006/01/2024 CBC/C OMPLE TE BLD COUNT W/DIF F mean RBC HGB concentratio n 29.2 g/dL 31.0-3 6.0 low Not Available [facility] (Lab) [address] [place], [address], 06/01/2024 14:26:05 06/01/2006/01/2024 CBC/C OMPLE TE BLD COUNT W/DIF F red cell distribution width 18.1 % 11.8-1 5.5 high Not Available [facility] (Lab) [address] [place], [address], 06/01/2024 14:26:05 06/01/2006/01/2024 CBC/C OMPLE TE BLD COUNT W/DIF F platelets 212 x10'3 /uL 150-40 0 Not Available [facility] (Lab) [address] [place], [address], 06/01/2024 14:26:05 06/01/2006/01/2024 CBC/C OMPLE TE BLD COUNT W/DIF F mean platelet volume 10.5 fL 9.0-12 .4 Not Available [facility] (Lab) [address] [place], [address], 06/01/2024 14:26:05 06/01/2006/01/2024 CBC/C OMPLE TE BLD COUNT W/DIF F neutrophils 68.6 % 39.0-7 2.0 Not Available [facility] (Lab) [address] [place], [address], 06/01/2024 14:26:05 06/01/2006/01/2024 CBC/C OMPLE TE BLD COUNT W/DIF F lymphocytes 20.1 % 16.0-4 7.0 Not Available [facility] (Lab) [address] [place], [address], 06/01/2024 14:26:05 06/01/2006/01/2024 CBC/C OMPLE TE BLD COUNT W/DIF F monocytes 8.9 % 5.0-12 .0 Not Available [facility] (Lab) [address] [place], [address], 06/01/2024 14:26:05 06/01/2006/01/2024 CBC/C OMPLE TE BLD COUNT W/DIF F eosinophils 1.6 % 1.0-7. 0 Not Available [facility] (Lab) [address] [place], [address], 06/01/2024 14:26:05 06/01/2006/01/2024 CBC/C OMPLE TE BLD COUNT W/DIF F basophils 0.3 % 0.0-2. 0 Not Available [facility] (Lab) [address] [place], [address], 06/01/2024 14:26:05 06/01/2006/01/2024 CBC/C OMPLE TE BLD COUNT W/DIF F immature granulocytes 0.5 % 0.00-0 .50 Not Available [facility] (Lab) [address] [place], [address], 06/01/2024 14:26:05 06/01/2006/01/2024 CBC/C OMPLE TE BLD COUNT W/DIF F neutrophils, absolute count 2.64 x10'3 /uL 1.5-8. 0 Not Available [facility] (Lab) [address] [place], [address], 06/01/2024 14:26:05 06/01/2006/01/2024 CBC/C OMPLE TE BLD COUNT W/DIF F lymphocytes, absolute count 0.77 x10'3 /uL 1.07-3 .43 low Not Available [facility] (Lab) [address] [place], [address], 06/01/2024 14:26:05 06/01/2006/01/2024 CBC/C OMPLE TE BLD COUNT W/DIF F monocytes, absolute count 0.34 x10'3 /uL 0.29-0 .99 Not Available [facility] (Lab) [address] [place], [address], 06/01/2024 14:26:05 06/01/2006/01/2024 CBC/C OMPLE TE BLD COUNT W/DIF F eosinophils, absolute count 0.06 x10'3 /uL 0.02-0 .53 Not Available [facility] (Lab) [address] [place], [address], 06/01/2024 14:26:05 06/01/2006/01/2024 CBC/C OMPLE TE BLD COUNT W/DIF F basophils, absolute count 0.01 x10'3 /uL 0.01-0 .08 Not Available [facility] (Lab) [address] [place], [address], 06/01/2024 14:26:05 06/01/2006/01/2024 CBC/C OMPLE TE BLD COUNT W/DIF F immature granulocytes ,absolute 0.02 x10'3 /uL 0.00-0 .05 Not Available [facility] (Lab) [address] [place], [address], 06/01/2024 14:26:05 06/01/2006/01/2024 CBC/C OMPLE TE BLD COUNT W/DIF F nucleated red blood cells 0.0 % -0 Not Available [facility] (Lab) [address] [place], [address], 06/01/2024 14:26:05 06/01/2006/01/2024 CBC/C OMPLE TE BLD COUNT W/DIF F NRBC# 0.00 x10'3 /uL Not Available [facility] (Lab) [address] [place], [address], 06/01/2024 14:26:05 06/01/2006/01/2024 CBC/C OMPLE TE BLD COUNT W/DIF F hypochromia OCCASI ONAL Not Available [facility] (Lab) [address] [place], [address], 06/01/2024 14:26:05 06/01/2006/01/2024 CBC/C OMPLE TE BLD COUNT W/DIF F chasity cells OCCASI ONAL Not Available [facility] (Lab) [address] [place], [address], 06/01/2024 14:26:05 06/01/2006/01/2024 COMPR EHENS MICHAEL METAB OLIC PANEL sodium 139 mmol/ L 137-14 5 Not Available [facility] (Lab) [address] [place], [address], 06/01/2024 13:39:05 06/01/2006/01/2024 COMPR EHENS MICHAEL METAB OLIC PANEL potassium 4.0 mmol/ L 3.5-5. 1 Not Available [facility] (Lab) [address] [place], [address], 06/01/2024 13:39:05 06/01/2006/01/2024 COMPR EHENS MICHEAL METAB OLIC PANEL chloride 108 mmol/ L 98-107 high Not Available [facility] (Lab) [address] [place], [address], 06/01/2024 13:39:05 06/01/2006/01/2024 COMPR EHENS MICHAEL METAB OLIC PANEL carbon dioxide 27 mmol/ L 22-30 Not Available [facility] (Lab) [address] [place], [address], 06/01/2024 13:39:05 06/01/2006/01/2024 COMPR EHENS MICHAEL METAB OLIC PANEL anion gap 8.0 mmol/ L 14-22 low Not Available [facility] (Lab) [address] [place], [address], 06/01/2024 13:39:05 06/01/2006/01/2024 COMPR EHENS MICHAEL METAB OLIC PANEL glucose 104 mg/dL 70-99 high Not Available [facility] (Lab) [address] [place], [address], 06/01/2024 13:39:05 06/01/2006/01/2024 COMPR EHENS MICHAEL METAB OLIC PANEL BUN 21 mg/dL 8-19 high Not Available [facility] (Lab) [address] [place], [address], 06/01/2024 13:39:05 06/01/2006/01/2024 COMPR EHENS MICHAEL METAB OLIC PANEL creatinine 0.94 mg/dL 0.66-1 .25 Not Available [facility] (Lab) [address] [place], [address], 06/01/2024 13:39:05 06/01/2006/01/2024 COMPR EHENS MICHAEL METAB OLIC PANEL GFR >60 Refer ence Range : [place] ge GFR Healt hy Adult : >60 [...] calcu lator is avail able on the [facility] websi te: https :[email or web address]/pr ofess ional s/kdo qi/gf r_cal culat or Not Available [facility] (Lab) [address] [place], [address], 06/01/2024 13:39:05 06/01/2006/01/2024 COMPR EHENS MICHAEL METAB OLIC PANEL alkaline phosphatase 84 U/L 38-126 Not Available [facility] (Lab) [address] [place], [address], 06/01/2024 13:39:05 06/01/20 24 06/01/2024 COMPR EHENS MICHAEL METAB OLIC PANEL alanine aminotransfe rase 15 U/L 0-50 Not Available [facility] (Lab) [address] [place], [address], 06/01/2024 13:39:05 06/01/20 24 06/01/2024 COMPR EHENS MICHAEL METAB OLIC PANEL aspartate aminotransfe rase 21 U/L 15-46 Not Available [facility] (Lab) [address] [place], [address], 06/01/2024 13:39:05 06/01/20 24 06/01/2024 COMPR EHENS MICHAEL METAB OLIC PANEL bilirubin, total 0.50 mg/dL 0.20-1 .30 Not Available [facility] (Lab) [address] [place], [address], 06/01/2024 13:39:05 06/01/2006/01/2024 COMPR EHENS MICHAEL METAB OLIC PANEL calcium 8.8 mg/dL 8.4-10 .2 Not Available [facility] (Lab) [address] [place], [address], 06/01/2024 13:39:05 06/01/2006/01/2024 COMPR EHENS MICHAEL METAB OLIC PANEL total protein 5.6 g/dL 6.3-8. 2 low Not Available [facility] (Lab) [address] [place], [address], 06/01/2024 13:39:05 06/01/2006/01/2024 COMPR EHENS MICHAEL METAB OLIC PANEL albumin 2.7 g/dL 3.0-4. 4 low Not Available [facility] (Lab) [address] [place], [address], 06/01/2024 13:39:05 06/01/2006/01/2024 COMPR EHENS MICHAEL METAB OLIC PANEL globulin 2.9 g/dL 2.6-4. 2 Not Available [facility] (Lab) [address] [place], [address], 06/01/2024 13:39:05 06/01/2006/01/2024 COMPR EHENS MICHAEL METAB OLIC PANEL A/G ratio 0.9 ratio 1.0-2. 0 low Not Available [facility] (Lab) [address] [place], [address], 06/01/2024 13:39:05 06/01/2006/01/2024 LIPID PANEL cholesterol 97 mg/dL 140-19 9 low NIH KRISTEN NSUS RECOM MENDA TION FOR GUSTAVO STERO L: ADULT CHILD LOW RISK: <200 <170 BORDE RLINE : <200- 239 ----- HIGH RISK: >240 >200 Not Available [facility] (Lab) [address] [place], [address], 06/01/2024 13:39:08 06/01/20 24 06/01/2024 LIPID PANEL triglyceride s 81 mg/dL 0-150 NIH KRISTEN NSUS REPOR T RECOM MENDA TION FOR TRIGL YCERI SHANI: ADULT CHILD LOW RISK: <150 ----- BODER LINE: 150-1 99 ----- HIGH RISK: >200 ----- Not Available [facility] (Lab) [address] [place], [address], 06/01/2024 13:39:08 06/01/20 24 06/01/2024 LIPID PANEL HDL cholesterol 26 mg/dL 40- low Not Available [facility] (Lab) [address] [place], [address], 06/01/2024 13:39:08 06/01/2006/01/2024 LIPID PANEL LDL cholesterol, [...] WILL NOT BE REPOR MIKE. Not Available [facility] (Lab) [address] [place], [address], 06/01/2024 13:39:08 06/01/20 24 06/01/2024 VITAM IN D 25-HY DROXY vd25oh 37.6 NG/mL 30-100 Vitam in D Statu s: Defic ient: <20 ng/mL Insuf ficie nt: 20-29 ng/mL Suffi cient : 30-10 0 ng/mL Not Available [facility] (Lab) [address] [place], [address], 06/01/2024 13:57:52 06/01/2006/01/2024 TSH W/REF BLANCA FT4 TSH with reflex free T4 1.060 uIU/m L 0.465- 4.680 Not Available [facility] (Lab) [address] [place], [address], 06/01/2024 14:38:11 06/01/2006/01/2024 VITAM IN B12 (MARSHAL RITO ) vb12 985 pg/mL 239-93 1 high Not Available [facility] (Lab) [address] [place], [address], 06/01/2024 14:47:31 06/01/2006/01/2024 FOLAT E, SERUM /PLAS MA folate 5.72 NG/mL 2.76-2 0.0 Not Available [facility] (Lab) [address] [place], [address], 06/01/2024 14:47:32 06/01/2006/01/2024 HEMOG LOBIN A1C HA1C 6.7 % 4.0-6. 0 high Diabe gary Scree cameron Crite cristofer: <5.7% Consi stent with absen ce of diabe gary 5.7-6 .4% Consi stent with incre ased risk for diabe gary (pred iabet es) >OR=6 .5% Consi stent with diabe gary REFER ENCE: Diabe gary Care 2016, 39(Moreno ppl.1 ):s13 -s22 Not Available [facility] (Lab) [address] [place], [address], 06/01/2024 21:04:12 06/02/20 24 06/02/2024 MICRO ALBUM IN RANDO M URINE microalbumin , urine 40.0 mg/L 0.0-16 .6 high Not Available [facility] (Lab) [address], [place], [address], 06/02/2024 14:44:42 09/02/19 24 09/02/2023 , echo ardio gram No observ ation record ed. [facility] [address], [place], [address], 03/25/2024 11:49:40 11/01/19 25 10/31/2024 imagi ng/di agnos tic resul t No observ ation record ed. [address] [facility], [place], [address], 10/31/2024 18:04:48 11/01/19 25 10/31/2024 imagi ng/di agnos tic resul t No observ ation record ed. [address] [facility], [place], [address], 10/31/2024 22:04:37 11/01/19 25 10/31/2024 imagi ng/di agnos tic resul t No observ ation record ed. [address] [facility], [place], [address], 10/31/2024 22:06:39 11/29/19 25 11/28/2024 imagi ng/di agnos tic resul t No observ ation record ed. [address] [facility], [place], [address], 11/28/2024 18:07:47 Result Notes None recorded. Problems Name Problem SNOMED Code Status Onset Date Resolution Date Notes Provider Name and Address Organization Details Recorded Time Neoplasm of prostate 767549069 Active Not Available [facility] 3 11:36:16 Disorder of lumbar spine 667107585 Active Not Available [facility] 3 11:36:16 Hyperchole sterolemia 35305780 Active 2019 Not Available [facility] 3 11:36:16 Insomnia 345451143 Active 2021 Not Available [facility] 3 11:36:16 Osteoarthr itis of knee 704588672 Active Not Available [facility] 3 11:36:16 Anemia 582390811 Active 2019 Not Available [facility] 3 11:36:16 Skin problem 139589738 Active 2019 Not Available [facility] 3 11:36:16 Type 2 diabetes mellitus without complicati on 466846697 Active Not Available [facility] 3 11:36:16 Osteoarthr itis of left knee joint 7050900840101 09 Active 2021 Not Available [facility] 3 11:36:16 Vitamin D deficiency 52398874 Active 2021 Not Available [facility] 3 11:36:16 Disorder of eye 855318706 Active 2019 Not Available [facility] 3 11:36:16 Arthritis 3363694 Active 2019 Not Available [facility] 3 11:36:16 Neuropathy 835712321 Active 2019 Not Available [facility] 3 11:36:16 Osteoarthr itis 130393109 Active Not Available [facility] 3 11:36:16 Dizziness 662595022 Active 2019 Not Available [facility] 3 11:36:16 Attention deficit hyperactiv ity disorder 413685336 Active 2019 Not Available [facility] 3 11:36:16 Coronary atheroscle rosis 064217020 Active Not Available [facility] 3 11:36:16 Uncontroll ed type 2 diabetes mellitus 195925211 Active Not Available [facility] 3 11:36:16 Seasonal allergy 887252453 Active 2019 Not Available [facility] 3 11:36:16 Pain of left knee joint 8163237891533 07 Active 2021 Not Available [facility] 3 11:36:16 Anxiety 74579897 Active Not Available [facility] 3 11:36:16 Atrial fibrillati on 72960101 Active Not Available [facility] 3 11:36:16 Hyperlipid emia 17725718 Active 2021 Not Available [facility] 3 11:36:16 Heart disease 94765543 Active 2019 Not Available [facility] 3 11:36:16 Problem of prostate 442995602 Active 2019 Not Available [facility] 3 11:36:16 Diabetes mellitus 19711868 Active 2019 Not Available [facility] 3 11:36:16 Dystrophia unguium 68432032 Active 2019 Not Available [facility] 3 11:36:16 Coronary arterioscl erosis 79486505 Active 2022 Not Available [facility] 3 11:36:16 Essential hypertensi on 51657212 Active 2022 Not Available [facility] 3 11:36:16 Hypercalce felix 70325237 Active 2022 Not Available [facility] 3 11:36:16 Gastroesop hageal reflux disease without esophagiti s 892535174 Active 2022 Not Available [facility] 3 11:36:16 Persistent insomnia 625406136 Active 2022 Not Available [facility] 3 11:36:16 Thrombocyt openic disorder 280201290 Active 2022 Not Available [facility] 3 11:36:16 Urinary incontinen ce 459830711 Active 2022 Not Available [facility] 3 11:36:16 Erythrocyt osis 021805308 Active 2022 Not Available [facility] 3 11:36:16 Serum vitamin B12 below reference range 443492100 Active 2022 Not Available [facility] 3 11:36:16 Low back pain 781853988 Active 2022 Yulia watts MD [address] [place] [address], [address], [address] , [facility] [employer] [facility] 3 15:49:55 Unsteady when walking 55273674 Active 2023 Yulia watts MD [address] [facility], [facility] [address], [place], [address] , [facility] 4 17:18:38 Unintentio nal weight loss 616346740 Active 2023 Yulia watts MD [address] [facility], [place], [address] , [facility] [employer] [facility] [employer] [facility] 4 16:00:55 Hypoprotei nemia 9644982 Active 2024 Yulia watts MD [address] [facility], [facility] [address], [place], [address] , [facility] [employer] [facility] [employer] [facility] 5 17:23:35 Notes:PROSTATE, URINARY/BLAD SARATH/KIDNEY PROBLEMS, USE OF BLOOD THINNERS Use of NSAIDS Problem Notes None recorded. Procedures Surgical History Date Name Laterality Status Provider Name and Address Organization Details Recorded Time 07/20/20 Medicare Wellness CPT Code, subsequent completed Ethan Joshi LPN [facility] [employer] [facility] 07/20/2024 08:28:19 04/27/20 Medicare Wellness CPT Code, subsequent cancelled Ethan Joshi LPN [place] [employer] [facility] [employer] [facility] 04/27/2024 08:47:18 03/02/20 Medicare Wellness CPT Code, subsequent completed Suzie Bermudez RN [facility] [employer] [facility] 03/02/2023 15:53:20 02/17/20 23 Nail Debridement completed Kaveh Godfrey DPM [address] [facility], [facility] [address], [place], [address], [facility] [employer] [facility] 02/16/2023 12:43:33 Knee Surgery completed Not Available [facility] 10/08/2022 04:59:11 Pacemaker completed Not Available [facility] 0 10/08/2022 04:59:11 Prostatectomy completed Not Available [facility] 10/08/2022 04:59:11 Neck Surgeries completed Paula Norwood CA - [facility] 02/16/2023 12:05:55 Imaging Results Imaging Date Name Status LastModified by Organization Details LastModified Time 09/02/2023 US, echocardiogram completed [facility] [address], [place], [address], 03/25/2024 11:49:40 10/31/2024 imaging/diagnostic result active [address] [place] [address], [address], 10/31/2024 18:04:48 10/31/2024 imaging/diagnostic result active [address] [place] [address], [address], 10/31/2024 22:04:37 10/31/2024 imaging/diagnostic result active [address] [place] [address], [address], 10/31/2024 22:06:39 11/28/2024 imaging/diagnostic result active [address] [place] [address], [address], 11/28/2024 18:07:47 Procedure Notes None recorded. Medical Equipment None Reported. Allergies Allergen ID Allergen Name Allergen Category Reaction Reaction Severity Criticality Documentation Date Start Date Code Code System Note Provider Name and Address Organization Details Recorded Time 9246 amiodaron e medicatio n other Not available Not available 10/08/2022 703 RxNorm unkno wn Not Available [facility] 05:12:43 Medications Name Sig Start Date Stop [...] mg tablet 10/[address] Strange 06/03/20 Not Available Not Available Not Available carvedilo [...] n for injection in office 09/28 completed [facility]: [id number] 4-20 Not Available Not Available [...] completed Not Available Not Available Not Available R50-Urbtq 1,000 mcg tablet Take 1 tablet every [...] completed Not Available Not Available Not Available [place] 3 with Fish Oil 1200mg 1 Daily [...] Details Last Updated DateTime 4 177.8 cm 83437 g 97.3 [degF] 83 /min 95 % 95 % 120 mm[Hg] 60 mm[Hg] LISETTE Chaparro [place] - [place] [facility] 4 15:37:03 Date Recorded Body height Body mass index (BMI) Body weight Body temperature Heart rate Systolic blood pressure Diastolic blood pressure Provider Name and Address Organization Details Last Updated DateTime 4 177.8 cm 26.1 kg/m2 83715.8 1 g 97.6 [degF] 60 /min 110 mm[Hg] 60 mm[Hg] LISETTE Carreon [facility] 4 14:39:54 Date Recorded Body height Provider Name an d Address Organization Details Last Updated DateTime 05/11/2024 177.8 cm Zamzam Ragland Carlos [facility] 05/11/2024 16:41:28 Date Recorded Body height Body mass index (BMI) Body weight Body temperature Heart rate Respiratory rate Oxygen saturation Oxygen saturation in Arterial blood by Pulse oximetry Pain severity - 0-10 verbal numeric rating [Score] - Reported Systolic blood pressure Diastolic blood pressure Provider Name and Address Organization Details Last Updated DateTime 4 177.8 cm 24.4 kg/m2 83830.7 g 97.8 [degF] 64 /min 18 /min 99 % 99 % 0 102 mm[Hg] 54 mm[Hg] Ethan Joshi LPN [facility] 4 15:21:12 Date Recorded Body height Body temperature Body mass index (BMI) Body weight Systolic blood pressure Diastolic blood pressure Provider Name and Address Organization Details Last Updated DateTime 5 177.8 cm 97.3 [degF] 25.5 kg/m2 02251.4 4 g 110 mm[Hg] 52 mm[Hg] Zamzam Ragland Carlos [facility] 5 16:43:25 Social History Question Answer Notes LastModified by Organizat ion Details LastModified Time Tobacco Smoking Status Former Smoker Not Available [facility] 10/08/2022 04:57:17 Do You Have An Advance Directive? Yes MIGRATION.08991 27731 Information not available 10/08/2022 What Is Your Level Of Alcohol Consumption? None MIGRATION.84504 00202 Information not available 10/08/2022 Are You Blind Or Do You Have Difficulty Seeing? No MIGRATION.62909 65484 Information not available 10/08/2022 How Much Tobacco Do You Chew? None MIGRATION.28958 90166 Information not available 10/08/2022 In The 14 Days Before Symptom Onset, Have You Had Close Contact With A Laboratory-sethi rmed COVID-19 While That Case Was Ill? No MIGRATION.60669 14593 Information not available 10/08/2022 In The 14 Days Before Symptom Onset, Have You Had Close Contact With A Person Who Is Under Investigation For COVID-19 While That Person Was Ill? No MIGRATION.88714 28615 Information not available 10/08/2022 Are You Deaf Or Do You Have Serious Difficulty Hearing? No MIGRATION.16071 23158 Information not available 10/08/2022 What Type Of Diet Are You Following? REGULAR MIGRATION.29710 08312 Information not available 10/08/2022 Which Illicit Or Recreational Drugs Have You Used? None MIGRATION.57710 78159 Information not available 10/08/2022 Do You Or Have You Ever Used E-cigarettes Or Vape? Never Used Electronic Cigarettes MIGRATION.13348 51721 Information not available 10/08/2022 What Is The Highest Grade Or Level Of School You Have Completed Or The Highest Degree You Have Received? VP96268-5 MIGRATION.99559 57786 Information not available 10/08/2022 What Is Your Occupation? Retired MIGRATION.57456 06372 Information not available 10/08/2022 Have There Been Any Changes To Your Family Or Social Situation? No MIGRATION.68122 73258 Information not available 10/08/2022 What Is The Fluoride Status Of Your Home? Unknown MIGRATION.31897 10716 Information not available 10/08/2022 When Did You Quit Smoking? 16+yearssincelastci rosa MIGRATION.67709 21129 Information not available 10/08/2022 Are There Any Guns Present In Your Home? Yes MIGRATION.46594 26480 Information not available 10/08/2022 Do You Use [...] Do You Have A Medical Power Of Systems Software Manager? Yes MIGRATION.72716 38106 Information not available 10/08/2022 What Was The Date Of Your Most Recent Tobacco Screening? 08/17/2024 Information not available 08/17/2024 Do You Have Any Pets? No MIGRATION.86107 15448 Information not available 10/08/2022 What Is Your Relationship Status? MIGRATION.27298 59748 Information not available 10/08/2022 Do You Use Your Seat Belt Or Car Seat Routinely? Yes MIGRATION.02268 00898 Information not available 10/08/2022 Do You Have Smoke And Carbon Monoxide Detectors In Your Home? Yes MIGRATION.61824 48829 Information not available 10/08/2022 At What Age Did You Start Smoking Tobacco? 19 MIGRATION.33419 22507 Information not available 10/08/2022 Are You Passively Exposed To Smoke? No MIGRATION.54745 87766 Information not available 10/08/2022 Do You Or Have You Ever Used Smokeless Tobacco? Never Used Smokeless Tobacco MIGRATION.15584 95538 Information not available 10/08/2022 Are There Any Smokers In Your House? No MIGRATION.79643 09619 Information not available 10/08/2022 What Types Of Sporting Activities Do You Participate In? None MIGRATION.45022 48731 Information not available 10/08/2022 Do You Feel Stressed (tense, Restless, Nervous, Or Anxious, Or Unable To Sleep At Night)? [id number] MIGRATION.86303 85581 Information not available 10/08/2022 Do You Use Any Illicit Or Recreational Drugs? No MIGRATION.29476 02269 Information not available 10/08/2022 Do You Use Sunscreen Routinely? No Information not available 03/02/2023 Has Tobacco Cessation Counseling Been Provided? No MIGRATION.58853 49234 Information not available 10/08/2022 How Many Years Have You Smoked Tobacco? 36 MIGRATION.20543 81654 Information not available 10/08/2022 Have You Recently Traveled Abroad? No MIGRATION.44469 03818 Information not available 10/08/2022 Do You Have Any Dietary Restrictions? No MIGRATION.03447 35399 Information not available 10/08/2022 Do You Or Have You Ever Used Any Other Forms Of Tobacco Or Nicotine? No MIGRATION.86780 36807 Information not available 10/08/2022 Sex: Male Functional Status Question Answer Note LastModified by Organizat ion Details LastModified Time Do you have difficulty walking or climbing stairs? Yes MIGRATION.447683 1844 Information not available 10/08/2022 Do you have transportation difficulties? No MIGRATION.324802 0980 Information not available 10/08/2022 Are you able to walk? YESASSIST uses cane MIGRATION.077208 9628 Information not available 10/08/2022 Do you have difficulty doing errands alone? No MIGRATION.020725 4562 Information not available 10/08/2022 Are you able to care for yourself? Yes MIGRATION.437478 8378 Information not available 10/08/2022 Do you have difficulty dressing or bathing? No MIGRATION.037344 8940 Information not available 10/08/2022 What is your exercise level? None MIGRATION.162624 6975 Information not available 10/08/2022 Mental Status Question Answer Note LastModified by Organizat ion Details LastModified Time Do you have difficulty concentrating, remembering or making decisions? No MIGRATION.107722857 6 Information not available 10/08/2022 Family History Relationship Description Onset Age of this Age Resolved Age Notes LastModified by Organization Details LastModified Time Father Heart disease MIGRATION.044 [id number] Not available 10/08/2022 04:59:14 Father Family history of stroke MIGRATION.486 0457158 Not available 10/08/2022 04:59:14 Brother Family history of malignant neoplasm MIGRATION.762 0423377 Not available 10/08/2022 04:59:14 Mother Diabetes mellitus MIGRATION.911 0648165 Not available 10/08/2022 04:59:14 Father Cerebrovascu lar accident [email or web address] Not available 05/2023 12:04:19 Father Arthritis [email or web address] Not available 02/16/2023 12:04:31 Notes:stroke-father cancer- self Medical History Condition Response BLINDNESS N KIDNEY STONES N CARPAL TUNNEL SYNDROME N MRSA N LUNG DISEASE/DISORDER N HISTORY OF DRUG ABUSE N RADIATION / CHEMOTHERAPY N COPD N ANKLE PAIN N SPORTS INJURY N BLOOD DISEASES N SCHIZOPHRENIA N SHINGLES N DEPRESSION (INCLUDING POST ) N SHOULDER PAIN N BOWEL PROBLEMS N STROKE/TIA N KNEE PAIN N ULCERS [...] Time Influenza, MDCK, quadrivalent, PF 9 completed Zamzam Ragland RMA naomi, [facility] 07/20/2024 16:11:50 Influenza, adjuvanted, quadrivalent, PF 2 completed Zamzam Ragland RMA null, [facility] 07/20/2024 16:11:50 COVID-19, mRNA, LNP-S, PF, 30 mcg/0.3 mL dose, chastity-sucrose 2 completed Zamzam Ragland RMA null, [facility] 07/20/2024 16:11:50 COVID-19, mRNA, LNP-S, bivalent, PF, 30 mcg/0.3 mL dose 2 completed Zamzam Ragland RMA null, [facility] 07/20/2024 16:11:50 Influenza, high-dose, trivalent, PF 6 completed Zamzam Ragland RMA null, [facility] 07/20/2024 16:11:50 Influenza, high-dose, trivalent, PF 7 completed Zamzam [place], RMA null, [facility] 07/20/2024 16:11:50 Influenza, high-dose, trivalent, PF 8 completed Zamzam Ellyn, RMA null, [facility] 07/20/2024 16:11:50 Influenza, high-dose, trivalent, PF 5 completed Zamzam Ellyn, RMA null, [facility] 07/20/2024 16:11:50 Influenza, split virus, quadrivalent, PF 4 completed Zamzam Ellyn, RMA null, [facility] 07/20/2024 16:11:50 Influenza, split virus, quadrivalent, PF 3 completed Zamzam Ragland RMA null, [facility] 07/20/2024 16:11:50 Influenza, split virus, quadrivalent, PF 0 completed Zamzam [place] RMA null, [facility] 07/20/2024 16:11:50 COVID-19, mRNA, LNP-S, PF, 100 mcg/0.5mL dose or 50 mcg/0.25mL dose 1 completed Zamzam Ragland RMA null, [facility] 07/20/2024 16:11:50 COVID-19, mRNA, LNP-S, PF, 100 mcg/0.5mL dose or 50 mcg/0.25mL dose 1 completed Zamzam [place], RMA null, [facility] 07/20/2024 16:11:50 COVID-19, mRNA, LNP-S, PF, 100 mcg/0.5mL dose or 50 mcg/0.25mL dose 1 completed Zamzam Ellyn, RMA null, [facility] 07/20/2024 16:11:50 Influenza, high-dose, trivalent, PF 0 completed LISETTE Carreon, [facility] 07/20/2024 16:11:50 Influenza, high-dose, trivalent, PF 9 completed LISETTE Carreon, [facility] 07/20/2024 16:11:50 influenza, unspecified formulation 7 completed Not Available [facility] 01/16/2023 11:36:17 pneumococcal polysaccharide PPV23 2 completed Not Available [facility] 01/16/2023 11:36:17 Influenza, high-dose, quadrivalent, PF 1 completed Not Available [facility] 01/16/2023 11:36:16 Pneumococcal conjugate PCV 13 8 completed Not Available [facility] 01/16/2023 11:36:17 Influenza, high-dose, quadrivalent, PF 3 completed Yulia Jackson MD [address], [address], [place], [address], [facility] 06/01/2023 18:23:03 Influenza, high-dose, trivalent, PF 4 completed Yulia Jackson MD [address], [address], [place], [address], [facility] 07/31/2024 15:22:14 Past Encounters Encounter ID Performer Location Encounter Start Date Encounter Closed Date Diagnosis/Indication Diagnosis SNOMED-CT Code Diagnosis ICD10 Code Diagnosis Note [id number] [facility] [place] [address] 02/04/2021 00:00:00 02/05/2021 10:04:08 [id number] [facility] [place] [address] 06/03/2021 00:00:00 06/03/2021 16:23:39 [id number] [facility] [address] 10/14/2021 00:00:00 10/14/2021 16:01:41 [id number] [facility] [address] [address] 10/22/2021 00:00:00 10/22/2021 16:34:19 [id number] [facility] [address] [address] 11/19/2021 00:00:00 01/07/2022 08:07:36 [id number] [facility] [address] [place] [address] 12/10/2021 00:00:00 12/10/2021 16:18:59 [id number] [facility] [address] [place] [address] 01/27/2022 00:00:00 01/27/2022 17:19:13 [id number] [facility] [place] [address] [place] [address] 02/12/2022 00:00:00 02/12/2022 18:24:19 [id number] [facility] [address] [address] 04/01/2022 00:00:00 04/01/2022 15:02:54 [id number] [facility] [address] [address] 05/06/2022 00:00:00 05/06/2022 15:06:23 [id number] [facility] [address] [place] [address] 05/12/2022 00:00:00 05/12/2022 17:33:25 [id number] [facility] [place] [address] [place] [address] 06/25/2022 00:00:00 06/25/2022 15:11:10 [id number] [facility] [place] [address] [place] [address] 08/18/2022 00:00:00 08/18/2022 15:50:58 [id number] Yulia watts MD [facility] Internal Med [place] [address] [place] [address] 10/22/2022 14:01:50 10/22/2022 14:53:19 Screening - NAD 868230278 Z13.9 C-scope: Refused to do this at this time all risks explained again He denies any complaints UTD on flu shotUTD pneumonia #13 today 09/16/17Ge t Tdap, shingles vaccineUTD COVID 19 vaccine RTC in 4 monthswith labs, he would like to get his labs thru the [facility] if worse,he did verbalize his understand ing of the above Coronary arteriosclerosis 98032072 I25.10 CAD s/p CABG s/p PMOn losartanOn magnesiumO n sotalolOn eliquis 5mg bidSees Dr Slaughter Essential hypertension 35752045 I10 On coreg 25mg bidOn losartan 50mg 2 tabs daily Not on chlorthali done 25mg dailyNot on metoprolol 25mg daily On sotalol 120mg bidOn magnesium Hypercalcemia 12863702 E 83.52 OV 02/04/2021 :Did see Dr Strange 11/20/2020 , needs to see Dr Berta Strange 05/07/2021 , started on coreg, f/u in 2 months to see if parathyroi dectomy is done OV 10/14/2021 :Dr Strange 08/20/2021 , to get parathyroi dectomy as per his note, he is to see ENT on 10/31/2021 Dr Mary in [facility] OV 02/12/2022 :On cinacalcet 30mg dailySeen by [...] labs Gastroesop hageal reflux disease without esophagitis 788464968 K21.9 On PPI, take only as needed Persistent insomnia 1919 16174 G47.09 On lorazepamT marques as needed Thrombocyt openic disorder 566383965 D69.[address] Guzman hematology Urinary incontinence [address] Oneal 11/04/2022 Pain of le ft knee joint 2276318863 79156 M25.562 Daljit COATS, next 11/17/2022 Serum beatriz min B12 below reference range 628798207 R79.89 Vitamin D deficiency 347 43813 E55.9 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 032518545 E11.9 On jardianceO n kerendiaOn metformin 750mg dailyGet labs [id number] PAULY Garcia [facility] [address] [place] [address] 11/17/2022 14:57:50 11/17/2022 16:15:51 Osteoarthritis of left knee joint 3309388684 18377 M17.12 [id number] Kaveh Godfrey DPM [facility] [place] [address] [place] [address] 02/16/2023 11:58:00 02/16/2023 15:02:09 Diabetes mellitus 67482710 E11.9 Check feet daily for wounds infectionC ontinue diabetic control per PCPContinu e supportive shoe gearFollow -up in 1 year Dystrophia unguium 94999 009 L60.3 Nails 1 through 10 were debrided with sharp mechanical debridemen t without incident. Nails were debrided and greater than 50% length and thickness where needed. [id number] PAULY Garcia [facility] [place] [address] [place] [address] 02/16/2023 15:18:43 02/16/2023 17:56:41 Osteoarthritis of left knee joint 9000446834 69151 M17.12 [id number] Yulia watts MD [facility] [place] [address] [facility] , [place] [address] 03/02/2023 15:04:43 03/02/2023 16:01:44 Screening - NAD 609300219 Z13.9 C-scope: Refused to do this at this time all risks explained againHe denies any complaints UTD on flu shotUTD pneumonia #13 today 09/16/17Ge t Tdap, shingles vaccineUTD COVID 19 vaccine RTC in 4 monthswith labs, he would like to get his labs thru the [facility] if worse,he did verbalize his understand ing of the above Coronary arteriosclerosis 75303404 I25.10 CAD s/p CABG s/p PM On coreg 25mg bidOn losartanOn magnesiumO n sotalolOn eliquis 5mg bid Sees Dr Slaughter Essential hypertension 36517712 I10 On coreg 25mg bidOn losartan 50mg 2 tabs daily Not on chlorthali done 25mg dailyNot on metoprolol 25mg daily On sotalol 120mg bidOn magnesium Hypercalcemia 30920687 E 83.52 OV 02/04/2021 :Did see Dr Strange 11/20/2020 , needs to see Dr Berta Strange 05/07/2021 , started on coreg, f/u in 2 months to see if parathyroi dectomy is done OV 10/14/2021 :Dr Strange 08/20/2021 , to get parathyroi dectomy as per his note, he is to see ENT on 10/31/2021 Dr Mary in [facility] OV 02/12/2022 :On cinacalcet 30mg dailySeen by [...] Strange Gastroesop hageal reflux disease without esophagitis 295380337 K21.9 On PPI, take only as needed Persistent insomnia 1919 26595 G47.09 On lorazepamT marques as needed Thrombocyt openic disorder 766743922 D69.[address] Guzman hematology Urinary incontinence 165 188380 R32 Dr Oneal 11/04/2022 Pain of le ft knee joint 1448543530 81511 M25.562 Daljit COATS, next 11/17/2022 Serum beatriz min B12 below reference range 497026821 R79.89 Vitamin D deficiency 347 31702 E55.9 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 358976682 E11.9 On jardianceO n kerendia 20mg dailyOn metformin 750mg dailyGet labs Low back pain 698889915 M54.50 Get an apt with PTGet xrays Adult heal th examination 164705260 Z00.00 Screening for disorder 812252720 Z13.9 [id number] Yulia watts MD [facility] Alee erazo [address] [facility] , [place] [address] 06/01/2023 15:49:59 06/01/2023 16:27:59 Screening - NAD 679214423 Z13.9 C-scope: Refused to do this at [...] understand ing of the above Coronary arteriosclerosis 98656620 I25.10 CAD s/p CABG s/p PM On coreg 25mg bidOn losartanOn magnesiumO n sotalolOn eliquis 5mg bid Sees Dr Slaughter 12/11/2022 , next apt in one year Essential hypertension 47111594 I10 On coreg 25mg bidOn losartan 50mg 2 tabs daily Not on chlorthali done 25mg dailyNot on metoprolol 25mg daily On sotalol 120mg bidOn magnesium Hypercalcemia 43120084 E 83.52 OV 02/04/2021 :Did see Dr Strange 11/20/2020 , needs to see Dr Berta Strange 05/07/2021 , started on coreg, f/u in 2 months to see if parathyroi dectomy is done OV 10/14/2021 :Dr Strange 08/20/2021 , to get parathyroi dectomy as per his note, he is to see ENT on 10/31/2021 Dr Mary in [facility] OV 02/12/2022 :On cinacalcet 30mg dailySeen by [...] labs Gastroesop hageal reflux disease without esophagitis 983537654 K21.9 On PPI, take only as needed Persistent insomnia 1919 47622 G47.09 On lorazepamT marques as needed Thrombocyt openic disorder 109273506 D69.[address] Guzman hematology Urinary incontinence [address] Oneal 11/04/2022 Pain of le ft knee joint 1993210934 11559 M25.562 Daljit COATS, next 02/16/2023 Serum beatriz min B12 below reference range 821863052 R79.89 Vitamin D deficiency 347 12428 E55.9 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 407228955 E11.9 On jardianceO n kerendia 20mg dailyOn metformin 750mg dailyGet labs Low back pain 883526009 M54.50 Xray LS Spine 03/02/2023 , see caseNow refer to IPC Hyperlipidemia 71340949 E78.5 On atorvastat in 40mg dailyOn vascepaGet labs Administra tion of influenza vaccine 83903561 Z23 [id number] David Kitchen MD [facility] [address] [place] [address] 06/10/2023 11:39:52 06/10/2023 12:33:20 Osteoarthritis of left knee joint 5578527518 21356 M17.12 [id number] Yulia watts MD [facility] Alee leone [address] [place] [address] 09/28/2023 15:20:53 09/28/2023 16:00:38 Screening - NAD 004223546 Z13.9 C-scope: Refused to do this at [...] understand ing of the above Coronary arteriosclerosis 29824513 I25.10 CAD s/p CABG s/p PMECHO 09/02/2023 : Dr Slaughter On coreg 25mg bidOn losartan 50mg 2 tabs dailyOn magnesiumO n sotalolOn eliquis 5mg bid Sees Dr Slaughter 12/11/2022 , next apt in one year Essential hypertension 73918324 I10 On coreg 25mg bidOn losartan 50mg 2 tabs daily Not on chlorthali done 25mg dailyNot on metoprolol 25mg daily On sotalol 120mg bidOn magnesium Hypercalcemia 49858449 E 83.52 OV 02/04/2021 :Did see Dr Strange 11/20/2020 , needs to see Dr Berta Strange 05/07/2021 , started on coreg, f/u in 2 months to see if parathyroi dectomy is done OV 10/14/2021 :Dr Strange 08/20/2021 , to get parathyroi dectomy as per his note, he is to see ENT on 10/31/2021 Dr Mary in [facility] OV 02/12/2022 :On cinacalcet 30mg dailySeen by [...] labs Gastroesop hageal reflux disease without esophagitis 163584306 K21.9 On PPI, take only as needed Persistent insomnia 1919 57738 G47.09 On lorazepamT marques as needed Thrombocyt openic disorder 720651534 D69.[address] Guzman hematology Urinary incontinence [address] Oneal 11/04/2022 Pain of le ft knee joint 0824581593 31807 M25.562 Daljit Hugehs PA, next 02/16/2023 Serum beatriz min B12 below reference range 881755093 R79.89 Vitamin D deficiency 347 37938 E55.9 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 592366627 E11.9 On jardianceO n kerendia 20mg daily, renewed 09/28/2022 On metformin 750mg dailyGet labs Low back pain 230173445 M54.50 Xray LS Spine 03/02/2023 , see caseNow refer to IPC Hyperlipidemia 24822240 E78.5 On atorvastat in 40mg dailyOn vascepaGet labs [id number] Yulia watts MD [facility] Alee erazo [address] [facility] [place] [address] 01/25/2024 14:23:25 01/25/2024 15:14:04 Screening - NAD 515357894 Z13.9 C-scope: Refused to do this at [...] understand ing of the above Coronary arteriosclerosis 88463789 I25.10 CAD s/p CABG s/p PMECHO 09/02/2023 : Dr Slaughter On coreg 25mg bidOn losartan 50mg 2 tabs dailyOn magnesiumO n sotalol 120mg bidOn eliquis 5mg bid Sees Dr Slaughter 12/11/2022 , next apt in one year Essential hypertension 89878736 I10 On coreg 25mg bidOn losartan 50mg 2 tabs daily Not on chlorthali done 25mg dailyNot on metoprolol 25mg daily On sotalol 120mg bidNot taking magnesium Hypercalcemia 75116360 E 83.52 OV 02/04/2021 :Did see Dr Strange 11/20/2020 , needs to see Dr Berta Starnge 05/07/2021 , started on coreg, f/u in 2 months to see if parathyroi dectomy is done OV 10/14/2021 :Dr Strange 08/20/2021 , to get parathyroi dectomy as per his note, he is to see ENT on 10/31/2021 Dr Mary in [facility] OV 02/12/2022 :On cinacalcet 30mg dailySeen by [...] labs Gastroesop hageal reflux disease without esophagitis 851088392 K21.9 On PPI, take only as needed Persistent insomnia 1919 76733 G47.09 On lorazepamT marques as needed Thrombocyt openic disorder 092660241 D69.[address] Guzman hematology , referred 01/25/2024 Urinary incontinence [address] Oneal 11/04/2022 Pain of le ft knee joint 1602570642 94456 M25.562 Daljit [facility] any new referrals 01/25/2024 Serum beatriz min B12 below reference range 435540580 R79.89 Vitamin D deficiency 347 88684 E55.9 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 877990664 E11.9 On jardianceO n kerendia 20mg daily, renewed 09/28/2022 , 01/25/2024 On metformin 750mg dailyGet labs Low back pain 935361549 M54.50 Xray LS Spine 03/02/2023 , see caseIPC 09/15/2023 , f/u in 3 months Hyperlipidemia 77629135 E78.5 On atorvastat in 40mg daily, increase to 80mg dailyOn vascepa d/c this as he is on eliquisGet labs [id number] Yulia watts MD [facility] [address]lee er[address] [facility] [place] [facility] [place] [address] 05/11/2024 16:39:47 05/11/2024 17:26:30 Screening - NAD 067066127 Z13.9 C-scope: Refused to do this at [...] understand ing of the above Coronary arteriosclerosis 42965918 I25.10 CAD s/p CABG s/p PMECHO 09/02/2023 : Dr Slaughter On coreg 25mg bidOn losartan 50mg 2 tabs dailyOn magnesiumO n sotalol 120mg bidOn eliquis 5mg bid Sees Dr Slaughter 12/11/2022 , next apt in one year Essential hypertension 00480356 I10 On coreg 25mg bidOn losartan 50mg 2 tabs daily Not on chlorthali done 25mg dailyNot on metoprolol 25mg daily On sotalol 120mg bidNot taking magnesium Hypercalcemia 97114262 E 83.52 OV 02/04/2021 :Did see Dr Strange 11/20/2020 , needs to see Dr Berta Strange 05/07/2021 , started on coreg, f/u in 2 months to see if parathyroi dectomy is done OV 10/14/2021 :Dr Strange 08/20/2021 , to get parathyroi dectomy as per his note, he is to see ENT on 10/31/2021 Dr Mary in [facility] OV 02/12/2022 :On cinacalcet 30mg dailySeen by [...] Strange Gastroesop hageal reflux disease without esophagitis 688897423 K21.9 On PPI, take only as needed Persistent insomnia 1919 21732 G47.09 On lorazepamT marques as needed Thrombocyt openic disorder 101063046 D69.[address] Guzman hematology , referred 01/25/2024 Urinary incontinence [address] Oneal 11/04/2022 Pain of le ft knee joint 1469344485 54045 M25.562 [facility] any new referrals 01/25/2024 Serum beatriz min B12 below reference range 084182637 R79.89 Vitamin D deficiency 347 92733 E55.9 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 [address] [facility] [place] [address] 07/20/2024 15:11:38 07/20/2024 16:11:48 Adult health examination 147505969 Z00.00 Screening for disorder 962055976 Z13.9 Screening - NAD 63322830 3 Z13.9 C-scope: Refused to do this [...] understand ing of the above Coronary arteriosclerosis 17808892 I25.10 CAD s/p CABG s/p PMECHO 09/02/2023 : Dr Slaughter On coreg 25mg bidOn losartan 50mg 2 tabs dailyOn magnesiumO n sotalol 120mg bidOn eliquis 5mg bid Dr Slaughter 12/11/2022 , next apt in one yearDr Slaughter 11/27/2023 Essential hypertension 11417005 I10 On coreg 25mg bidOn losartan 50mg 2 tabs daily Not on chlorthali done 25mg dailyNot on metoprolol 25mg daily On sotalol 120mg bidNot taking magnesium Hypercalcemia 15905983 E 83.52 OV 02/04/2021 :Did see Dr Strange 11/20/2020 , needs to see Dr Berta Strange 05/07/2021 , started on coreg, f/u in 2 months to see if parathyroi dectomy is done OV 10/14/2021 :Dr Strange 08/20/2021 , to get parathyroi dectomy as per his note, he is to see ENT on 10/31/2021 Dr Mary in [facility] OV 02/12/2022 :On cinacalcet 30mg dailySeen by [...] Strange Gastroesop hageal reflux disease without esophagitis 446713765 K21.9 On PPI, take only as needed Persistent insomnia 1919 77267 G47.09 On lorazepamT marques as needed Urinary incontinence [address] Oneal 11/04/2022 Pain of le ft knee joint 0155688144 82062 M25.[address] 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 Unintentio nal weight loss 654591948 R63.4 Worry about cover malignancy , labs show anemia, needs to see oncology, referred Dr Guzman Administra tion of influenza vaccine 63849041 Z23 [id number] Yulia watts MD [facility] Primary Care [place] [address] [facility] [facility] [address] [place] [address] 08/17/2024 16:32:45 08/17/2024 17:41:38 Screening - NAD 371279900 Z13.9 C-scope: Refused to do this at [...] understand ing of the above Coronary arteriosclerosis 29252354 I25.10 CAD s/p CABG s/p PMECHO 09/02/2023 : Dr Slaughter On coreg 25mg bidOn losartan 50mg 2 tabs dailyOn magnesiumO n sotalol 120mg bidOn eliquis 5mg bid Dr Slaughter 12/11/2022 , next apt in one yearDr Slaughter 11/27/2023 Essential hypertension 95203543 I10 On coreg 25mg bidOn losartan 50mg 2 tabs daily Not on chlorthali done 25mg dailyNot on metoprolol 25mg daily On sotalol 120mg bidNot taking magnesium Hypercalcemia 92270766 E 83.52 OV 02/04/2021 :Did see Dr Strange 11/20/2020 , needs to see Dr Berta Strange 05/07/2021 , started on coreg, f/u in 2 months to see if parathyroi dectomy is done OV 10/14/2021 :Dr Strange 08/20/2021 , to get parathyroi dectomy as per his note, he is to see ENT on 10/31/2021 Dr Mary in [facility] OV 02/12/2022 :On cinacalcet 30mg dailySeen by [...] :Dr Strange OV 07/20/2024 :See Dr Strange OV 08/17/2024 :Mild pitting edema, will discuss with Dr Espinosa well, keep apt with Dr Strange Gastroesop hageal reflux disease without esophagitis 129260231 K21.9 On PPI, take only as needed Persistent insomnia 1919 49723 G47.09 On lorazepamT marques as needed Urinary incontinence [address] Oneal 11/04/2022 Pain of le ft knee joint 9719693103 60952 M25.562 Daljit [facility] any new referrals 01/25/2024 Serum beatriz min B12 below reference range 971510076 R79.89 Vitamin D deficiency 347 42194 E55.9 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 380509317 E11.9 On jardianceO n kerendia 20mg daily, renewed 05/11/2024 On metformin 750mg dailyGet labs Low back pain 784574868 M54.50 Xray LS Spine 03/02/2023 , see caseIPC 09/15/2023 , f/u in 3 months OV 04/11/2024 :Does not want to see IPC, will get a referral OV 07/20/2024 :Get a referral to pain management Hyperlipidemia 98386069 E78.5 On atorvastat in 40mg dailyOn vascepa d/c this as he is on eliquisGet labs Unsteady when walking 22 960830 R26.89 Get a walker will be delivered today 07/20/2024 Anemia 065466817 D64.9 On iron and vit cDr Ebie 08/05/[address] Guzman on 09/01/2024 at 11.30am Unintentio nal weight loss 156543585 R63.4 Worry about cover malignancy , labs show anemia, needs to see oncology, see Dr Guzman 09/01/2024 Hypoproteinemia 4945055 E88.09 Encouraged more protien in diet Health Concerns Section Related Observation LastModified by Organization Detai ls LastModified Time None Recorded Concern Status LastModified by Organization Details LastModified Time None Recorded Advance Directives Directive Y: Payers Encounter Date Sequence Insurance Name Policy Number Policy Patton Covered Member ID Patton Member ID Guarantor Name 09/28/2023 1 [place] Jose Manuel Kinney McItiaraoy [id number] Jose Manuel Nirmal McIlroy 09/28/2023 2 [place] [id number] Jose Manuel Kinney McIlroy [id number] Jose Manuel Nirmal McIlroy 01/25/2024 1 [place] Jose Manuel Kinney McIlroy [id number] Jose Manuel Nirmal McIlroy 01/25/2024 2 [place] [id number] Jose Manuel Nirmal McIlroy [id number] Jose Manuel Nirmal McIlroy 05/11/2024 1 [place] Jose Manuel Nirmal McIlroy [id number] Jose Manuel Nirmal McIlroy 05/11/2024 2 [place] [id number] Jose Manuel Kinney McIlroy [id number] Jose Manuel Kinney McIlroy 07/20/2024 1 [place] Jose Manuel Kinney McIlroy [id number] Jose Manuel Kinney McIlroy 07/20/2024 2 [place] [id number] Jose Manuel Kinney McIlroy [id number] Jose Manuel Kinney McIlroy 08/17/2024 1 [place] Jose Manuel Kinney McIlroy [id number] Jose Manuel Kinney McIlroy 08/17/2024 2 [place] [id number] Jose Manuel Kinney McIlroy [id number] Jose Manuel K McIlroy Notes Date Note Type Note Provider Name and Address Organization Details Recorded Time 09/28/2023 text/html Here to meagan Armendariz PMD Dr [...] and would now like to get a program and research coordinator apt OV 02/04/2021:Here for his routine aptHe [...] very well today Yulia Jackson MD [address] [facility], [place], [address], [place] [facility] [employer] 09/28/2023 18:44:03 01/25/2024 text/html Here to meagan Armendariz PMD Dr [...] and would now like to get a program and research coordinator apt OV 02/04/2021:Here for his routine aptHe [...] on icy hot and this helps Yulia Jackson MD [address], [place], [address], [place] [facility] 01/25/2024 15:14:50 05/11/2024 text/html Here to meagan [...] and would now like to get a program and research coordinator apt OV 02/04/2021:Here for his routine aptHe [...] to pain management Yulia Jackson MD [address] [facility], [place], [address], [place] [facility] [employer] 05/11/2024 17:50:10 07/20/2024 text/html Here to meagan [...] and would now like to get a program and research coordinator apt OV 02/04/2021:Here for his routine aptHe [...] unintentional weight loss Yulia Jackson MD [address] [facility], [facility] [address], [place], [address], [place] [facility] 07/31/2024 15:22:34 08/17/2024 text/html Here to meagan [...] and would now like to get a program and research coordinator apt OV 02/04/2021:Here for his routine aptHe [...] weight, did have labs done by the barmaid Yulia Jackson MD [address] [facility], [place], [address], [facility] [employer] 08/17/2024 17:26:38
--- OUTSIDE RECORDS SUMMARY | 2024-11-28 17:38 | XMS_ITS | Clinical Summary ---
Author Organization [facility] Address [address] [place] [address] Care Team Providers Care Label Rewinder Name Role Phone Gege Jackson MD Primary [...] ORAL) Take by mouth. Activ e Fish Oil-[place]-3 Fatty Acids 360-1,200 mg Capsule Take 1 Capsule by mouth. Active chlorthalidone (HYGROTON) 25 mg tablet Take 25 mg by mouth daily. Active magnesium oxide 400 mg magnesium Tablet magnesium 400 mg once daily Active crlcl-4-dpj-epa -dpa-fish oil 1,050-1,200 mg Capsule [place] 3 with Fish Oil 1200mg 1 Daily [...] External Device Data STL ABSTRACTION Provider, Abstract from Last 3 Months Family History Medical [...] Comments Blood Pressure 123/78 08/05/2024 11:41 AM [employer]PER[employer] Pulse 76 08/05/2024 11:41 AM [employer] SUPER[employer] Temperature 36.9 C (98.4 F) 08/05/2024 11:41 AM [employer] SUPER[employer] Respiratory Rate 15 08/05/2024 11:4 1 AM [employer]PER[employer] Oxygen Saturation 96% 08/05/2024 11: 41 AM [employer] Inhaled Oxygen Concentration - - Weight 81.5 kg (179 lb 9.6 oz) 08/05/2024 11:41 AM [employer] SU[employer] Remberto stated that this is the correct weight Height 182.9 cm (6') 08/05/2024 11:41 AM [employer] Body Mass Index 24.36 08/05/2024 11:41 AM [employer] Plan of Treatment Health Maintenance Due Date [...] Completed 07/20/2024, , 05/21/2022, Additional history exists Insurance MEDICARE PART A AND B [facility] SUPP MEDICARE PART A AND B [facility] SUPP Care Teams Label Rewinder Relationship Specialty Start Date End Date Gege Jackson MD PCP - General Internal Medicine 09/17/18
--- OUTSIDE RECORDS SUMMARY | 2024-11-28 17:38 | XMS_ITS | CONTINUITY OF CARE DOCUMENT ---
Author Name guy tovar Address Unknown Organization [facility] Address [address] [place] [address] Phone [phone] Care Team Providers Care Sluice Tender Name Role Phone Sukhjinder HUNTER, Rangel Unavailable [phone] YULIA LIMA MD Unavailable [phone] YULIA LIMA MD Unavailable [phone] PROBLEMS Condition Status Date Provider Notes S/P BI-V PM Biotronik // Gen change BiV PM Biotronik ( MRI Safe) active Kassandra Mandel Hypertriglyceridemia active Rangel Perez Vitamin D deficiency active Rangel Perez HTN essential;NEG DUPLEX active Rangel wise MD ccm AORTIC SCLEROSIS;2007 completed - Rangel Slaughter MD Diabetes Mellitus, Type II active Rangel rey MD CABG; PAMELA AND 2V 2004; completed 4 - Rosario Fay MD CAD S/P CABG- PAMELA AND 2V 2004 active Rangel Slaughter MD neg dupelx DIASTOLIC DYSFUNCTION;NML EF 12 completed - Rangel Slaughter MD DYSLIPIDEMIA;with low crp active Rangel conrad MD ATRIAL FIBR, PAROX; NML TSH, active Dinah nair [facility] Tobacco use, quit active Rangel [...] Rangel Slaughter MD Arthritis - osteo active oRsario mullen MD Granulomatous lung disease active Rangel [...] conrad MD hyperparathyroidism active Rangel Slaughter MD Cough active Aaron watts MD ENCOUNTERS Date Type Provider Location Encounter Diag nosis - In-person encounter Office Visit Aaron Wooten MD [facility] Cough - In-person encounter Office Visit Aaron Wooten MD [facility] - In-person encounter Office Visit Rosario Fay MD [facility] - In-person encounter Office Visit Rangel Slaughter MD [facility] - In-person encounter Office Visit Rosario Fay MD [facility] - In-person encounter Office Visit Rosario Fay MD [facility] - In-person encounter Office Visit Rangel Slaughter MD [facility] - In-person encounter Office Visit Rangel Slaughter MD [facility] Diabetes Mellitus, Type IIOverweightMicroalbuminuria;ne g egfrhyperparathyroidism - In-person encounter Office Visit Rangel Slaughter MD [facility] Elevated LFT'sMicroalbuminuria;neg egfrhyperparathyroidism - In-person encounter Office Visit Rangel Slaughter MD [facility] Anemia, iron deficiencyProstate cancer - In-person encounter Office Visit Rangel Slaughter MD [facility] Anemia, iron deficiency - In-person encounter Office Visit Rangel Slaughter MD [facility] - In-person encounter Office Visit Rangel Slaughter MD [facility] Aortic root dilatation - In-person encounter Office Visit Rangel Slaughter MD [facility] HTN essential;NEG DUPLEXDizziness - In-person encounter Office Visit Rangel Slaughter MD [facility] - In-person encounter Office Visit Rangel Slaughter MD [facility] r/o Sleep apnea;neg studyCarotid artery disease <50%r/o AAA;neg usShortness of breath - In-person encounter Office Visit Rosario Fay MD [facility] - In-person encounter Office Visit Rosario Fay MD [facility] Ventricular tachycardia - In-person encounter Office Visit Rangel Slaughter MD [facility] Tobacco use, quitDiastolic CHF and lvhScreening - In-person encounter Office Visit Rangel Slaughter MD [facility] CAD S/P CABG- PAMELA AND 2V 2004Diastolic CHF and lvhScreeningAnemia, iron deficiency - In-person encounter Office Visit Rosario Fay MD [facility] HTN essential;NEG DUPLEXDiabetes Mellitus, Type IICAD S/P CABG- PAMELA AND 2V 2004DYSLIPIDEMIA;with low crpHx of DVTBiotronic BiV cardiac pacemaker presentR/O Sleep apnea - In-person encounter Office Visit Rosario Fay MD [facility] - In-person encounter Office Visit Rangel Slaughter MD [facility] DYSLIPIDEMIA;with low crpr/o Sleep apnea;neg studyDyspnea on exertion - In-person encounter Office Visit Rangel Slaughter MD [facility] - In-person encounter Office Visit Rosario Fay MD [facility] R/O Sleep apnea - In-person encounter Office Visit Rosario Fay MD [facility] - In-person encounter Office Visit Rosario Fay MD [facility] - In-person encounter Office Visit Rangel Slaughter MD [facility] ATRIAL FIBR, PAROX; NML TSH,Tobacco use, quitSnoringOBESITY;DID NOT WANT MEDFIAST OR DIET PILLDiabetes Mellitus, Type II, controlled w/ vascular complicationsGranulomatous lung diseaseAortic atherosclerosis - In-person encounter Office Visit Rosario Fay MD [facility] CAD S/P CABG- PAMELA AND 2V 2004AAA; NEG US 09Hx of DVTBiotronic BiV cardiac pacemaker presentArthritis - osteo - In-person encounter Office Visit Rosario Fay MD [facility] - In-person encounter Office Visit Rosario Fay MD [facility] - In-person encounter Office Visit Rangel Slaughter MD [facility] HTN essential;NEG DUPLEXR/O ISCHEMIA;NEG NUC 12 AND 14Biotronic BiV cardiac pacemaker presentDiastolic CHF and lvh - In-person encounter Office Visit Rosario Fay MD [facility] - In-person encounter Office Visit Rangel Slaughter MD [facility] HTN essential;NEG DUPLEXATRIAL FIBR, PAROX; NML TSH,MITRAL REGURGITATION, MILD, NML EF 13DIABETES MELLITUS, TYPE II, CONTROLLED W/ VASCULAR COMPLICATIONSPeripheral vascular disease, unspecifiedDiastolic CHF and lvh - In-person encounter Office Visit Rosario Fay MD [facility] - In-person encounter Office Visit Rangel Slaughter MD [facility] HTN essential;NEG DUPLEXDYSLIPIDEMIA;with low crpATRIAL FIBR, PAROX; NML TSH,OBESITY;DID NOT WANT MEDFIAST OR DIET PILLBiotronic BiV cardiac pacemaker presentCARDIOMYOPATHY - In-person encounter Office Visit Rosario Fay MD [facility] - In-person encounter Office Visit Rosario Fay MD [facility] - In-person encounter Office Visit Rosario Fay MD [facility] - In-person encounter Office Visit Rangel Slaughter MD [facility] DIASTOLIC DYSFUNCTION;NML EF 12DYSLIPIDEMIA;with low crpATRIAL FIBR, PAROX; NML TSH,Tobacco use, quitBRADYCARDIA, SINUS;WORSENED BY SOTOLOLAV BLOCK, 1ST DEGREE;DUE TO MEDSMYALGIAATRIAL FLUTTER PAROXYSMALSICK SINUS SYNDROMEBiotronic BiV cardiac pacemaker present - In-person encounter Office Visit Rosario Fay MD [facility] - In-person encounter Office Visit oRsario Fay MD [facility] - In-person encounter Office Visit Rosario Fay MD [facility] r/o Sleep apnea;neg study - In-person encounter Office Visit Rosario Fay MD [facility] - In-person encounter Office Visit Rangel Slaughter MD [facility] DYSLIPIDEMIA;with low crpATRIAL FIBR, PAROX; NML TSH,Hx of DVTOBESITY;DID NOT WANT MEDFIAST OR DIET PILLR/O ISCHEMIA;NEG NUC 12 AND 14 - In-person encounter Office Visit Rangel Slaughter MD [facility] DIASTOLIC DYSFUNCTION;NML EF 12DYSLIPIDEMIA;with low crpHx of DVTAV BLOCK, 1ST DEGREE;DUE TO MEDS - In-person encounter Office Visit Rangel Slaughter MD [facility] - In-person encounter Office Visit Rangel Slaughter MD [facility] HTN essential;NEG DUPLEXCAD S/P CABG- PAMELA AND 2V 2004DIASTOLIC DYSFUNCTION;NML EF 12Hx of DVTOBESITY;DID NOT WANT MEDFIAST OR DIET PILL - In-person encounter Office Visit Rangel Slaughter MD [facility] ATRIAL FIBR, PAROX; NML TSH,Tobacco use, quit - In-person encounter Office Visit Rangel Slaughter MD [facility] ATRIAL FIBR, PAROX; NML TSH,Snoring - In-person encounter Office Visit Rangel Slaughter MD [facility] CAD S/P CABG- PAMELA AND 2V 2004ATRIAL FIBR, PAROX; NML TSH, - In-person encounter Office Visit Rangel Slaughter MD [facility] HTN essential;NEG DUPLEXAORTIC SCLEROSIS;2008CABG; PAMELA AND 2V 2004;DIASTOLIC DYSFUNCTION;NML EF 12ATRIAL FIBR, PAROX; NML TSH,BRADYCARDIA, SINUS;WORSENED BY SOTOLOL - In-person encounter Office Visit Rangel Slaughter MD [facility] ATRIAL FIBR, PAROX; NML TSH, - In-person encounter Office Visit Rangel Slaughter MD [facility] HTN essential;NEG DUPLEXCABG; PAMELA AND 2V 2004;CAD S/P CABG- PAMELA AND 2V 2004DIASTOLIC DYSFUNCTION;NML EF 12DYSLIPIDEMIA;with low crpATRIAL FIBR, PAROX; NML TSH,Tobacco use, quit - In-person encounter Office Visit Rangel Slaughter MD [facility] AORTIC SCLEROSIS;2008Diabetes Mellitus, Type IICABG; PAMELA AND 2V 2003; VITAL SIGNS Date Observation Value Provider Body Mass Index (Ratio) 25.06 kg/m2 Bernardo Miller blood pressure, diastolic 64 mm[Hg] Diann pope [place] blood pressure, systolic 131 mm[Hg] Sara mcdonald [place] oxygen saturation, oximetry 86 % [facility] 57 /min [facility] respiratory rate E&M 12 /min [facility] weight E&M 190 [lb_av] [facility] height E&M 73 [in_i] [facility] blood pressure, cuff size regular [facility] Body Mass Index (Ratio) 22.69 kg/m2 Bernardo [facility] blood pressure, diastolic 72 mm[Hg] Diann fl[facility]Community [facility] blood pressure, systolic 127 mm[Hg] fredrick [facility] oxygen saturation, oximetry 96 % [facility] pulse rate 89 /min [facility] respiratory rate E&M 12 /min [facility] weight E&M 172 [lb_av] [facility] height E&M 73 [in_i] [facility] blood pressure, cuff size regular [facility] Body Mass Index (Ratio) 24.41 kg/m2 Anjum Fay MD weight E&M 185 [lb_av] Cassia moore blood pressure, cuff size regular Ke rri [place] blood pressure, diastolic 70 mm[Hg] Ke rri [place] blood pressure, systolic 132 mm[Hg] Lakeshia Martel oxygen saturation, oximetry 100 % Cassia Gruenenfelder [...] Gruenenfe lder weight E&M 186 [lb_av] Cassia Gruenenfe lder height E&M 73 [in_i] Cassia Gruenenfe lder Body Mass Index (Ratio) 24.99 kg/m2 Svetlana Slaughter MD blood pressure, cuff size large Ta ad Kristofer blood pressure, diastolic 74 mm[Hg] Tacos duong [place] blood pressure, systolic 136 mm[Hg] Harry sahu [place] oxygen saturation, oximetry 96 % [facility] respiratory rate E&M 16 /min [facility] pulse rate 80 /min [facility] weight E&M 189.4 [lb_av] [facility] height E&M 73 [in_i] [facility] Body Mass Index (Ratio) 25.86 kg/m2 Svetlana Slaughter MD blood pressure, diastolic 84 mm[Hg] Sara lewisLogrosaura blood pressure, systolic 141 mm[Hg] Jael Christyrosaura blood pressure, diastolic 84 mm[Hg] Luzma Melendez blood pressure, systolic 141 mm[Hg] Fanta elana Melendez oxygen saturation, oximetry 93 % Clarence Melendez respiratory rate E&M 22 /min Fantarajan Melendez pulse rate 123 /min Clarence lopez weight E&M 196 [lb_av] Rangel Perez height E&M 73 [in_i] Clarence lopez Body Mass Index (Ratio) 25.33 kg/m2 Svetlana Slaughter MD weight E&M 192 [lb_av] Rangel Perez blood pressure, diastolic 76 mm[Hg] Robert Slaughter [...] % Ana Andrade pulse rate 80 /min Ana Andrade weight E&M 210 [lb_av] Ana Andrade [...] [in_i] Tonsha Cummins temperature E&M 97.7 [degF] Selma Shea epstein Body Mass Index (Ratio) 28.63 kg/m2 Svetlana Slaughter MD blood pressure, diastolic 96 mm[Hg] To nsha Cummins blood pressure, systolic 166 mm[Hg] Ton sha Cummins pulse rate 80 /min Tons Cummins respiratory rate E&M 16 /min Tons Cummins oxygen saturation, oximetry 96 % Tons Cummins weight E&M 217 [lb_av] Tons Cummins height E&M 73 [in_i] Tonsha Cummins Body Mass Index (Ratio) 28.52 kg/m2 Svetlana Slaughter MD blood pressure, resting Yes Jef Friedman MULLING MACHINE OPERATOR blood pressure, diastolic 82 mm[Hg] Mee Keithzach Hunter blood pressure, systolic 166 mm[Hg] Maryan Hunter oxygen saturation, oximetry 96 % Sabina Hunter respiratory rate E&M 18 /min Juliette west Hunter pulse rate 85 /min Sabina Barrera [...] kg/m2 Blair ugalde Eric blood pressure, diastolic 82 mm[Hg] Ki lleen Hernandez blood pressure, systolic 140 mm[Hg] Kil akira Hernandez oxygen saturation, oximetry 97 % Sallis Hernandez respiratory rate E&M 16 /min Sallis Hernandez pulse rate 81 /min Arabella Hernandez weight E&M 215 [lb_av] Arabella Hernandez height E&M 73 [in_i] Sallis Hernandez Body Mass Index (Ratio) 28.36 kg/m2 [...] Slaughter MD blood pressure, diastolic 93 mm[Hg] Mee Hunter blood pressure, systolic 160 mm[Hg] Maryan Hunter oxygen saturation, oximetry 97 % Sabina Torresenson respiratory rate E&M 18 /min AmandaRenetta Torresenson pulse rate 80 /min Sabina Barrera nson weight E&M 212.8 [lb_av] Sabina Torres enson height E&M 73 [in_i] Sabina Barrera nson Body Mass Index (Ratio) 27.31 kg/m2 [facility] blood pressure, cuff size regular jimi Demecs RN blood pressure, diastolic 80 mm[Hg] jimi Demecs RN blood pressure, systolic 140 mm[Hg] Corbin sta Moyecs RN oxygen saturation, oximetry 98 % Soraida Moyecs RN respiratory rate E&M 18 /min Soraida Demecs RN pulse rate 81 /min Soraida Demecs R N weight E&M 207 [lb_av] Soraida Demecs R N Body Mass Index (Ratio) 27.18 kg/m2 Ame wise Wes RN blood pressure, cuff size regular Je ssica N Lester blood pressure, diastolic 70 mm[Hg] Je ssica N Lester blood pressure, systolic 130 mm[Hg] Brianna tae N Lester oxygen saturation, oximetry 97 % Marcella N Lester respiratory rate E&M 18 /min Mareclla N Lester pulse rate 77 /min Marcella [...] Cassia guidry pulse rate 79 /min Cassia Garcia [facility] weight E&M 210 [lb_av] Cassia Garcia [facility] height E&M 73 [in_i] Cassia chery blood pressure, diastolic 80 mm[Hg] Mee Hunter blood pressure, systolic 154 mm[Hg] Maryan Hunter pulse rate 80 /min Sabina harmon oxygen saturation, oximetry 96 % Sabina Hunter respiratory rate E&M 16 /min Juliette Hunter Body Mass Index (Ratio) 27.84 kg/m2 Amanda Hunter weight E&M 211.0 [lb_av] Sabina pritchett respiratory rate E&M 16 /min Juliette Hunter Body Mass Index (Ratio) 27.47 kg/m2 Amanda Hunter weight E&M 208.2 [lb_av] Sabina pritchett blood pressure, diastolic 80 mm[Hg] Mee Hunter blood pressure, systolic 148 mm[Hg] Maryan Hunter pulse rate 80 /min Sabina lizarragaon oxygen saturation, oximetry 93 % Sabina Hunter respiratory rate E&M 16 /min Juliette Hunter Body Mass Index (Ratio) 27.36 kg/m2 Amanda Hunter weight E&M 207.4 [lb_av] Sabina pritchett blood pressure, diastolic 77 mm[Hg] Me gan [place] blood pressure, systolic 142 mm[Hg] Vanessa carpio [place] pulse rate 80 /min Judy [place] oxygen saturation, oximetry 98 % Judy [place] respiratory rate E&M 14 /min Judy [place] Body Mass Index (Ratio) 27.31 kg/m2 Shazia pierre [place] weight E&M 207 [lb_av] Judy [place] blood pressure, diastolic 79 mm[Hg] Mee Hunter blood pressure, systolic 147 mm[Hg] Maryan Hunter pulse rate 82 /min [place]ina harmon oxygen saturation, oximetry 96 % Sabina Hunter respiratory rate E&M 18 /min Juliette Hunter Body Mass Index (Ratio) 27.20 kg/m2 Amanda Hunter weight E&M 206.2 [lb_av] Sabina liveon blood pressure, diastolic 62 mm[Hg] Mee Hunter blood pressure, systolic 109 mm[Hg] Maryan Stormjenna Hunter pulse rate 93 /min Sab[place] Barrera elhamrosangela oxygen saturation, oximetry 98 % [place] Hunter [...] Horsey Body Mass Index (Ratio) 25.91 kg/m2 Kaia ra Horsey weight E&M 196.4 [lb_av] Xochitl Horsey blood pressure, diastolic 70 mm[Hg] Eduar Rangelomarfab CortezJustus blood pressure, systolic 110 mm[Hg] Inderjit omarfab Justus pulse rate 87 /min EduarClaireomarfab Jsutus oxygen saturation, oximetry 97 % EduarClaireamber Jerome respiratory rate E&M 18 /min Inderjitomarfab Justus Body Mass Index (Ratio) 26.07 kg/m2 Ibrahima Jerome weight E&M 197.6 [lb_av] EduarClaireamber Jerome blood pressure, diastolic 87 mm[Hg] Nd elvia [place] blood pressure, systolic 152 mm[Hg] Vanessa worrella [place] Body Mass Index (Ratio) 27.18 kg/m2 Shazia ssa [place] pulse rate 80 /min Judy [place] oxygen saturation, oximetry 98 % Judy [place] respiratory rate E&M 15 /min Judy [place] weight E&M 206 [lb_av] Judy [place] Body Mass Index (Ratio) 26.60 kg/m2 [facility] blood pressure, diastolic 78 mm[Hg] Me elvia Lyn blood pressure, systolic 138 mm[Hg] Vanessa Lyn pulse rate 89 /min Judy Lyn oxygen saturation, oximetry 98 % Judy Lyn respiratory rate E&M 16 /min Judy Lyn weight E&M 201.6 [lb_av] Judy Lyn Body Mass Index (Ratio) 26.78 kg/m2 Ch i [place] blood pressure, diastolic 72 mm[Hg] Ke rri [place] blood pressure, systolic 132 mm[Hg] Lakeshia ri [place] pulse rate 92 /min Cassia Radha er oxygen saturation, oximetry 97 % Cassia [place] respiratory rate E&M 16 /min Cassia guidry weight E&M 203 [lb_av] Cassia Radha lder blood pressure, diastolic 90 mm[Hg] Mee Acuna Hunter blood pressure, systolic 131 mm[Hg] Mayran Rivera Hunter Body Mass Index (Ratio) 26.67 kg/m2 Maame Hunter pulse rate 91 /min Sabina Barrera [place] oxygen saturation, oximetry 97 % Sabina Torresenson respiratory rate E&M 18 /min Juliette Hunter weight E&M 202.2 [lb_av] Sabina Torres shreyas Body Mass Index (Ratio) 29.55 kg/m2 Anea chastity Brown blood pressure, diastolic 101 mm[Hg] An eatris Brown blood pressure, systolic 178 mm[Hg] Ane atris Brown pulse rate 87 /min Aneatris Brown oxygen saturation, oximetry 95 % Aneatris Brown respiratory rate E&M 18 /min Aneatri s Brown weight E&M 224 [lb_av] Penny Thompson Body Mass Index (Ratio) 29.15 kg/m2 Shazia [place] blood pressure, diastolic 94 mm[Hg] Me gan [place] blood pressure, systolic 159 mm[Hg] Vanessa [place] pulse rate 90 /min Judy [place] oxygen saturation, oximetry 98 % Judy [place] respiratory rate E&M 14 /min Judy [place] weight E&M 221 [lb_av] Judy [place] blood pressure, diastolic, left arm 98 mm [...] RN blood pressure, diastolic 84 mm[Hg] Kodi Posada RN blood pressure, systolic 150 mm[Hg] Moreno Posada RN pulse rate 85 /min Moreno Posada RN oxygen saturation, oximetry 97 % Moreno Posada RN respiratory rate E&M 16 /min Moreno palacio RN Body Mass Index (Ratio) 28.07 kg/m2 Moreno Posada RN weight E&M 212 [lb_av] Moreno Posada RN blood pressure, diastolic 70 mm[Hg] Ta froylan Alex blood pressure, systolic 118 mm[Hg] Mcdonald ica Johnson Body Mass Index (Ratio) 26.61 kg/m2 Wanda ca Alex pulse rate 83 /min Klaudia Johnson oxygen [...] [place] blood pressure, diastolic 76 mm[Hg] Cherrie hare [place] blood pressure, systolic 120 mm[Hg] Jung chow [place] pulse rate 85 /min Sander [place] oxygen saturation, oximetry 98 % Sander [place] respiratory rate E&M 16 /min Sander [place] weight E&M 212.8 [lb_av] Sander Mirelesacokhadra blood pressure, diastolic 74 mm[Hg] Ta froylan Alex blood pressure, systolic 118 mm[Hg] Harry Johnson Body Mass Index (Ratio) 27.41 kg/m2 Wanda ca Alex pulse rate 97 /min Klaudia Alex oxygen saturation, oximetry 94 % Klaudia Johnson respiratory rate E&M 17 /min Klaudia Johnson weight E&M 207 [lb_av] Klaudia Johnson Body Mass Index (Ratio) 2.85 kg/m2 Ricco Tuttle blood pressure, diastolic, left arm 78 mm [Hg] Meme Tuttle blood pressure, systolic, left arm 152 mm [Hg] Meme Tuttle blood pressure, diastolic, right arm 75 m m[Hg] Meme Tuttle blood pressure, systolic, right arm 142 m m[Hg] Shubhamphil Tuttle blood pressure, diastolic 78 mm[Hg] Patel blood pressure, systolic 152 mm[Hg] Shubham Tuttle pulse rate 16 /min Meme Tuttle oxygen saturation, oximetry 99 % Meme Tuttle respiratory rate E&M 16 /min Meme Tuttle weight E&M 21.50 [lb_av] Meme serrano [...] [place] blood pressure, diastolic 88 mm[Hg] Ke marui [place] blood pressure, systolic 132 mm[Hg] Lakeshia Martel pulse rate 96 /min Cassia moore oxygen saturation, oximetry 98 % Cassia Martel respiratory rate E&M 17 /min Cassia felicianonfelder weight E&M 216 [lb_av] Cassia Radha moore blood pressure, diastolic, left arm 75 mm [Hg] Moreno Fowlers RN blood pressure, systolic, left arm 159 mm [Hg] Moreno Fowlers RN blood pressure, diastolic, right arm 73 m m[Hg] Moreno Fowlers RN blood pressure, systolic, right arm 130 m m[Hg] Moreno Fowlers RN blood pressure, diastolic 75 mm[Hg] Kodi serrano Posada RN blood pressure, systolic 159 mm[Hg] Moreno Fowlers RN pulse rate 90 /min Moreno Fowlers RN oxygen saturation, oximetry 96 % Moreno Fowlers RN respiratory rate E&M 16 /min Moreno palacio RN weight E&M 216 [lb_av] Moreno Fowlers RN blood pressure, diastolic 73 mm[Hg] Kodi serrano Posada RN blood pressure, systolic 148 mm[Hg] Moreno Fowlers RN pulse rate 80 /min Moreno Fowlers RN oxygen saturation, oximetry 97 % Moreno Fowlers RN respiratory rate E&M 16 /min Moreno granadoss RN weight E&M 225 [lb_av] Moreno Fowlers RN blood pressure, diastolic, left arm 81 mm [Hg] Katie Gomes MA blood pressure, systolic, left arm 141 mm [Hg] Katie Gomes MA blood pressure, diastolic, right arm 80 m m[Hg] Katie Gomes MA blood pressure, systolic, right arm 142 m m[Hg] Katie Gomes MA oxygen saturation, oximetry 97 % Katie Gomes MA blood pressure, diastolic 80 mm[Hg] Mellissa Gomes MA blood pressure, systolic 142 mm[Hg] Suze Gomes MA pulse rate 72 /min Katie Gomes MA respiratory rate E&M 20 /min Katie Gomes MA weight E&M 212 [lb_av] Katiemac Gomes MA blood pressure, diastolic 73 mm[Hg] Kodi zach Posada RN blood pressure, systolic 144 mm[Hg] Moreno Fowlers RN pulse rate 74 /min Moreno Fowlers RN oxygen saturation, oximetry 98 % Moreno Fowlers RN respiratory rate E&M 16 /min Moreno Jo palacio RN weight E&M 216 [lb_av] Moreno Fowlers RN blood pressure, diastolic 73 mm[Hg] Flavio [...] Sander [place] blood pressure, diastolic 84 mm[Hg] Cherire seph [place] blood pressure, systolic 139 mm[Hg] [...] [place] p height E&M 73 [in_i] Sander [place] ALLERGIES Allergy Name Onset Date Reaction Criticality [...] LinkLogic 3.5-5.2 sodium, serum 143 mmol/L [employer] [phone]/12 /08 urea nitrogen/creatinine ratio, serum 21 [employer]Logic [...] Not Estab. platelet count 169 X10E3/UL [employer] [phone]/12 /07 red blood cell distribution width 12.4 [...] LDL cholesterol, serum 32 mg/dL Effie Friedman MULLING MACHINE OPERATOR pro brain natriuretic peptide 390 pg/mL [employer] 0-376 High ferritin, serum 381 ng/mL [employer] 30-400 iron saturation percent, serum 41 % [facility] 15-55 iron, serum 127 ug/dL [employer] 38-169 iron binding capacity, unsaturated 183 ug/dL [employer] 279-094 7488/03 /20 iron binding capacity, total 310 ug/dL [employer] 353-660 5191/03 /20 calcium, serum 10.2 mg/dL [employer] 8.6-10.2 carbon dioxide, venous blood 23 mmol/L [employer] 20-29 chloride, serum 104 mmol/L [employer] 96-106 potassium, serum 5.0 mmol/L [employer] 3.5-5.2 sodium, serum 143 mmol/L [employer] 520-459 2321/03 /20 urea nitrogen/creatinine ratio, serum 11 [employer]Logic [...] 0-149 High cholesterol, serum 103 mg/dL [employer] [phone]/09 /08 platelet count 137 X10E3/UL [employer] 150-379 [...] [employer] 3.5-5.2 sodium, serum 143 mmol/L [employer] [phone]/09 /08 urea nitrogen/creatinine ratio, serum 18 [employer]Logic [...] iron binding capacity, total 323 ug/dL [employer] 354-281 1069/05 /10 hemoglobin A1C, blood, as % of [...] Not Estab. platelet count 150 X10E3/UL [employer] 905-094 6719/05 /10 red blood cell distribution width 15.0 [...] [employer] 3.5-5.2 sodium, serum 141 mmol/L [employer] [phone]/05 /10 urea nitrogen/creatinine ratio, serum 12 [employer] 10-24 eGFR if 84 mL/min/{1.73_ m2} [employer] >59 eGFR if not 73 mL/min/{1.73_ m2} [employer] >59 creatinine, serum 1.02 mg/dL [employer] 0.76-1.27 urea nitrogen, blood 12 mg/dL [employer] 8-27 blood glucose, random 115 mg/dL LinkLog 65-99 High ferritin, serum 112.5 ng/mL [employer] 30.0 - 400.0 immature granulocytes, percentage of total cells, blood 0.2 % [facility] - nucleated red blood cells as percent of blood leukocytes 0.0 % [facility] - red blood cell (erythrocyte) count, per high power field 0.0 10*3/UL [facility] - eosinophils as percent of blood leukocytes 0.9 % [facility] - neutrophils as percent of blood leukocytes 70.2 % [facility] - Absolute Neutrophils 3.1 CELLS/UL [employer] 1.5 - 7.8 basophils as percent of blood leukocytes 0.5 % [facility] - Absolute Basophils 0.0 CELLS/UL [employer] 0.0 - 0.2 monocytes as percent of blood leukocytes 8.6 % [facility] - Absolute Monocytes 0.4 CELLS/UL [employer] 0.2 - 1.0 lymphocytes as percent of blood leukocytes 19.6 % [facility] - Absolute Lymphocytes 0.9 CELLS/UL [facility] 0.9 - 3.9 mean platelet volume 11.0 (?) [facility] 145.0 THOUSAND/UL [facility] 100.0 - 400.0 mean corpuscular hemoglobin concentration, RBC 29.9 G/DL [facility] 31.0 - 38.0 Low mean corpuscular hemoglobin, RBC 27.3 pg [facility] 25.0 - 35.0 mean corpuscular volume, RBC 91.2 fL [facility] 75.0 - 100.0 hematocrit, blood 44.8 % [facility] 55[facility] hemoglobin, blood 13.4 g/dL [facility] 11.5 - 16.5 erythrocyte count, whole blood 4.9 MILLION/UL [facility] 3.5 - 5.5 iron, serum 80.0 ug/dL [facility] 31.0 - 144.0 iron saturation percent, serum 23.1 % [facility] 20[facility] - 50.0 iron binding capacity, total 345.8 ug/dL [facility] 250.0 - 450.0 folate, serum 17.6 NG/MLM [facility] 5.6 - 45.8 vitamin b12, serum 448.3 pg/mL [facility] 211.0 - 946.0 ferritin, serum 17.5 ng/mL [facility] 30.0 - 400.0 Low red blood cell distribution width, size density 44.9 fL [facility] - immature granulocytes, percentage of total cells, blood 0.2 % [facility] - nucleated red blood cells as percent of blood leukocytes 0.0 % [facility] - red blood cell (erythrocyte) count, per high power field 0.0 10*3/UL [facility] - eosinophils as percent of blood leukocytes 0.4 % [facility] - neutrophils as percent of blood leukocytes 66.9 % [facility] - Absolute Neutrophils 3.1 CELLS/UL [facility] 1.5 - 7.8 basophils as percent of blood leukocytes 0.6 % [facility] - Absolute Basophils 0.0 CELLS/UL [facility] 0.0 - 0.2 monocytes as percent of blood leukocytes 8.7 % [facility] - Absolute Monocytes 0.4 CELLS/UL [facility] 0.2 - 1.0 lymphocytes as percent of blood leukocytes 23.2 % [facility] - Absolute Lymphocytes 1.1 CELLS/UL [facility] 0.9 - 3.9 mean platelet volume 10.8 (?) [facility] - platelet count 221.0 THOUSAND/UL [facility] 100.0 - 400.0 mean corpuscular hemoglobin concentration, RBC 28.2 G/DL [facility] 31.0 - 38.0 Low mean corpuscular hemoglobin, RBC 21.1 pg [facility] 25.0 - 35.0 Low mean corpuscular volume, RBC 74.9 fL [facility] 75.0 - 100.0 Low hematocrit, blood 31.9 % [facility] 35.0 - 55.0 Low hemoglobin, blood 9.0 g/dL [facility] 11.5 - 16.5 Low erythrocyte count, whole blood 4.3 MILLION/UL [facility] 3.5 - 5.5 iron, serum 22.0 ug/dL [facility] 31.0 - 144.0 Low iron saturation percent, serum 4.5 % [facility] 20.0 - 50.0 Low iron binding capacity, total 488.6 ug/dL [facility] 250.0 - 450.0 High hemoglobin A1C, blood, as % of total hemoglobin 7.1 % [facility] 4.0 - 5.6 High free thyroxine index 8.6 ??g/dL [facility] 4.4 - 11.4 triiodothyronine uptake 1.0 TBI [facility] 0.8 - 1.3 thyroxine, serum, total 8.6 ??G/DL [facility] 4.5 - 11.7 thyroid stimulating hormone, serum 1.310 ??IU/ML [facility] 0.270 - 4.200 anion gap, serum 11.2 [facility] - albumin/globulin ratio, serum 2.8 g/dL [facility] [...] Posada RN Normal platelet count 145 10*3/mm3 [facility] hematocrit, blood 47.5 % [facility] triglyceride, serum, fasting 165 mg/dL [facility] HDL cholesterol, serum 28 mg/dL [facility] lipoprotein, beta, serum, point, quantitative, calculated 65 mg/dL [facility] cholesterol, serum 126 mg/dL [facility] alanine aminotransferase (SGPT), serum 21 1/L [facility] aspartate aminotransferase (SGOT), serum 23 1/L [facility] creatinine, serum 0.9 mg/dL [facility] potassium, serum 4.3 mmol/L [facility] sodium, serum 139 mmol/L [facility] platelet count 185 10*3/mm3 [facility] hematocrit, blood 45.1 % [facility] triglyceride, serum, fasting 86 mg/dL [facility] HDL cholesterol, serum 33 mg/dL [facility] lipoprotein, beta, serum, point, quantitative, calculated 70.8 mg/dL [facility] cholesterol, serum 121 mg/dL [facility] alanine aminotransferase (SGPT), serum 24 1/L [facility] aspartate aminotransferase (SGOT), serum 15 1/L [facility] creatinine, serum 1.0 mg/dL [facility] potassium, serum 3.9 mmol/L [facility] sodium, serum 140 mmol/L [facility] triglyceride, serum, fasting 102 mg/dL [facility] HDL cholesterol, serum 22 mg/dL [facility] LDL cholesterol, serum 78 mg/dL [facility] cholesterol, serum 120 mg/dL [facility] platelet count 163 10*3/mm3 [facility] hematocrit, blood 51.2 % [facility] international normalized ratio (INR) 1.8 [facility] creatinine, serum 1.08 mg/dL [facility] potassium, serum 4.2 mmol/L [facility] sodium, serum 143 mmol/L [facility] platelet count 160 10*3/mm3 [facility] hematocrit, blood 47.7 % [facility] lipoprotein, beta, serum, point, quantitative, calculated 37 mg/dL [facility] cholesterol, serum 88 mg/dL [facility] thyroid stimulating hormone, serum 1.330 u[IU]/mL [facility] alanine aminotransferase (SGPT), serum 50 1/L [facility] aspartate aminotransferase (SGOT), serum 23 1/L [facility] creatinine, serum 0.96 mg/dL [facility] potassium, serum 4.1 mmol/L [facility] sodium, serum 143 mmol/L [facility] urate crystals, amorphous, urine, semiquantitative Many [facility] mucus on urinalysis Many [facility] leukocyte esterase, urine, by dipstick Negative [facility] urobilinogen, urine, semiquantitative (dipstick) 2.0 [facility] nitrite, urine, semiquantitative Negative [facility] RBC, urine, dipstick Negative [facility] bilirubin, urine Negative [facility] ketones, urine, by test strip Negative [facility] glucose, urine, semiquantitative Trace [facility] protein, urine, semiquantitative (dipstick) Trace [facility] pH, urine, semiquantitative 5.5 [facility] specific gravity, urine 1.024 [facility] urine color [facility] appearance, urine Ex. Turbid [facility] prostate specific antigen <0.010 [facility] hemoglobin A1C, blood, as % of total hemoglobin 6.8 % [facility] triglyceride, serum, fasting 63 mg/dL [facility] HDL cholesterol, serum 32 mg/dL [facility] LDL cholesterol, serum 38 mg/dL [facility] cholesterol, serum 83 mg/dL [facility] Estimated Glomerular Filtration Rate (calc) 72.3 mL/min/{1.73_ m2} [facility] protein, total, serum 6.8 g/dL [facility] albumin, serum 4.1 g/dL [facility] bilirubin, serum, total 1.6 mg/dL [facility] alkaline phosphatase, serum 87 1/L [facility] alanine aminotransferase (SGPT), serum 26 1/L [facility] aspartate aminotransferase (SGOT), serum 44 1/L [facility] calcium, serum 9.7 mg/dL [facility] blood glucose, fasting 122 mg/dL [facility] creatinine, serum 1.03 mg/dL [facility] urea nitrogen, blood 22 mg/dL [facility] carbon dioxide, serum, total 23 mmol/L [facility] chloride, serum 108 mmol/L [facility] potassium, serum 4.0 mmol/L [facility] sodium, serum 141 mmol/L [facility] platelet count 140 10*3/uL [facility] red blood cell distribution width 13.1 % [facility] mean corpuscular hemoglobin concentration, RBC 35.5 g/dL [facility] mean corpuscular hemoglobin, RBC 34.9 pg [facility] mean corpuscular volume, RBC 98.3 fL [facility] hematocrit, blood 44.9 % [facility] hemoglobin, blood 15.9 g/dL [facility] erythrocyte (RBC) count 4.57 10*6/mm3 [facility] monocyte count, blood 0.6 10*3/mm3 [facility] lymphocyte count, blood 1.7 10*3/mm3 [facility] monocytes as percent of blood leukocytes 9.8 % [facility] lymphocytes as percent of blood leukocytes 27.1 % [facility] leukocyte count, blood 6.2 10*3/mm3 [facility] alanine aminotransferase (SGPT), serum 30 1/L CRYSTAL JESENICK MULLING MACHINE OPERATOR aspartate aminotransferase (SGOT), serum 28 1/L [facility] [employer]ING MACHINE OPERATOR triglyceride, serum, fasting 200 mg/dL [facility] [employer]ING MACHINE OPERATOR HDL cholesterol, serum 19 mg/dL [facility] MULLING MACHINE OPERATOR cholesterol, serum 100 mg/dL [facility] MULLING MACHINE OPERATOR triglyceride, target level 150 mg/dL [facility] MULLING MACHINE OPERATOR HDL cholesterol, serum, target level 40 mg/dL [facility]ST[facility] JESENICK MULLING MACHINE OPERATOR LDL target level 70 mg/dL CRYSTAL JESENICK MULLING MACHINE OPERATOR cholesterol, target level 200 mg/dL [facility] MULLING MACHINE OPERATOR calcium, serum 10.0 mg/dL [facility] 8.6-10.2 Normal [...] Status Instructions Dates Provider Indications Com ments Flonase Allergy Relief 50 mcg/actuation spray,suspension active 2 spray into both nostrils once a day Aaron Wooten MD Klor-Con 10 10 mEq tablet extended release active Take 1 tablet by mouth every other day Aaron Wooten MD metformin (Glucophage XR) 750 mg tablet extended release 24 hr active TAKE 1 TABLET BY MOUTH EVERY DAY Yoko Rushing furosemide 40 mg tablet active 1 tablet by mouth twice a day Riley Pollock NP furosemide 20 mg tablet completed 1 tablet by mouth once a day - Riley Pollock NP Vascepa 1 gram capsule active TAKE 2 CAPSULES BY MOUTH TWICE A DAY DIRECTED Cassia Martel metformin (Glucophage XR) 750 mg tablet extended release 24 hr completed Take 1 tablet by mouth once a day - Yoko Reginomadi cephalexin 250 mg capsule completed Take 1 capsule by mouth three times a day - Riley Phill BLAIR Jardiance 10 mg tablet active TAKE 1 TABLET BY MOUTH EVERY DAY Yoko Wei Kerendia 20 mg tablet active TAKE 1 TABLET BY MOUTH ONCE A DAY Alba Jade Jardiance 10 mg tablet completed - Bela Marcus carvedilol 25 mg tablet active TAKE 1 TABLET TWICE DAILY [facility] sotalol 120 mg tablet active TAKE 1 TABLET TWICE DAILY [facility] metformin 750 mg tablet extended release 24 [...] TAKE 1 TABLET TWICE DAILY [facility] Eliquis 5 mg tablet active 1 tablet twice a day Rangel Slaughter MD FeroSul 325 mg (65 mg iron) tablet active TAKE ONE TABLET BY MOUTH ONCE DAILY Nicole Santiago atorvastatin 40 mg tablet active TAKE 1 TABLET EVERY DAY Alphonso Menjivar Jardiance 10 mg tablet completed Take 1 tablet by mouth once a day - Rangel Slaguhter MD sotalol 120 mg tablet completed Take 1 tablet by mouth twice a day - Bela Medrano metformin 750 mg tablet extended release 24 hr completed Take 1 tablet by mouth once a day - Rangel Slaughter MD Vitamin D3 50 mcg (2,000 unit) tablet active 1 once a day Rangel Slaughter MD carvedilol 25 mg tablet completed Take 1 tablet by mouth twice a day - Belabebeto HairMarcus carvedilol 12.5 mg tablet completed 2 twice [...] completed TAKE 1 TABLET TWICE DAILY - Chasttashia Hardenue FeroSul 325 mg (65 mg iron) [...] once a day Sabina Hunter VITAMIN D3 81572 UNIT ORAL TABLET completed Take 1 tablet by mouth once a week - Rangel Slaughter MD COZAAR 25 MG ORAL TABLET completed ONE TAB. DAILY - Sabnia Hunter sotalol 120 mg tablet completed Take [...] a day STOPPED BY [facility] Nancy Trevino NP CEPHALEXIN 500 MG ORAL [...] MG ORAL CAPSULE completed ONE TAB. DAILY(changed 10/09) - Rangel Slaughter MD NIASPAN 1000 MG ORAL TABLET EXTENDED RELEASE completed TWO TABS. AT BEDTIME - Dispense as written (changed 10/09) - Rangel Slaughter MD CADUET 10-40 MG ORAL TABLET completed ONE TAB. DAILY(changed 10/09) - Rangel Slaughter MD ALTACE 10 MG [...] Provider personal history of marijuana use no Riley Pollock NP drug use no Riley Pollock NP alcohol use no Riley Pollock NP passive cigarette sm daniel exposure yes Riley Pollock NP smoking, year quit 1981 Riley Lofton areri MULLING MACHINE OPERATOR number of years as a smoker 10 years or m ore Riley Bonareri MULLING MACHINE OPERATOR smoking history, tot al pack/year 7.5 Riley Bonareri MULLING MACHINE OPERATOR smoking history, tot al pack/day 1 pk Riley Bonareri MULLING MACHINE OPERATOR cigarette use yes Riley Bonareri MULLING MACHINE OPERATOR smoking status Former smoker Riley Adamere ri MULLING MACHINE OPERATOR personal history of marijuana use no Nancy Fendler MULLING MACHINE OPERATOR drug use no Nancy Fendle r MULLING MACHINE OPERATOR alcohol use no Nancy Fendle r MULLING MACHINE OPERATOR passive cigarette sm daniel exposure yes Nancy Salazardler MULLING MACHINE OPERATOR smoking, year quit 1981 Nancy Salazardler MULLING MACHINE OPERATOR number of years as a smoker 10 years or m ore Nancy Salazardler MULLING MACHINE OPERATOR smoking history, tot al pack/year 7.5 Nancy Salazardler MULLING MACHINE OPERATOR smoking history, tot al pack/day 1 pk Nancy Salazardler MULLING MACHINE OPERATOR cigarette use yes Nancy Salazardl er MULLING MACHINE OPERATOR smoking status Former smoker Nancy Salazar dler MULLING MACHINE OPERATOR Exercise counseling Yes Nancy Salazardler MULLING MACHINE OPERATOR personal history of marijuana use no Verah Bonareri MULLING MACHINE OPERATOR drug use no Verah Bonareri MULLING MACHINE OPERATOR alcohol use no Riley Bonareri MULLING MACHINE OPERATOR passive cigarette sm daniel exposure yes Riley Bonareri MULLING MACHINE OPERATOR smoking, year quit 1981 Riley Lofton areri MULLING MACHINE OPERATOR number of years as a smoker 10 years or m ore Riley Bonareri MULLING MACHINE OPERATOR smoking history, tot al pack/year 7.5 Riley Bonareri MULLING MACHINE OPERATOR smoking history, tot al pack/day 1 pk Riley Bonareri MULLING MACHINE OPERATOR cigarette use yes Verah Bonareri MULLING MACHINE OPERATOR smoking status Former smoker Riley Wilder ri MULLING MACHINE OPERATOR drug use no Francisco Hartmannri alcohol use no Francisco Hartmannri passive cigarette sm daniel exposure yes Francisco Aguirre smoking, year quit 1982 Francisco alcala number of years as a smoker 10 years or m ore Francisco Aguirre smoking history, tot al pack/year 7.5 Francisco Hartmannri smoking history, tot al pack/day 1 pk Francisco Hartmannri cigarette use yes Francisco Garcia i smoking status Former smoker Francisco Singh erica social history reviewed E&M revi ewed - no changes required Riley Wilderadelina MULLING MACHINE OPERATOR social history E&M Marital Statu s: E thnicity: Smoking History: Khadra farrell is a former smoker. Riley Adameleana MULLING MACHINE OPERATOR drug use no Riley Wilderadelina MULLING MACHINE OPERATOR alcohol use no Riley Wilderri MULLING MACHINE OPERATOR smoking status Former smoker Riley Wilder adelina MULLING MACHINE OPERATOR social history E&M Marital Statu s: E thnicity: Smoking History: Khadra farrell has never smoked. Rangel Slaughter MD social history reviewed E&M revi ewed - no changes required Rangel Slaughter MD smoking status Never smoker Jenni Miner social history reviewed E&M revi ewed - no changes required Rangel Slaughter MD quit smoking, stage quit Rangel ibrahim MD social history E&M Marital Statu s: E thnicity: S moking History: Khadra farrell is a former smoker. Rangel Slaughter MD social history reviewed E&M revi ewed - no changes required Rangel Slaughter MD smoking history, tot al pack/day 1 pk Ana Andrade cigarette use yes Ana craven physical exercise, f requency, days per week yes Ana Andrade caffeine use, averag e drinks per day 0 /d Trysheridan Andrade passive cigarette sm daniel exposure yes Ana Andrade smoking status Former smoker Ana elizabeth physical exercise, f requency, days per week yes Nancy Kovacs caffeine use, averag e drinks per day 0 /d Nancy Kovacs passive cigarette sm daniel exposure yes Nancy Kovacs smoking status Former smoker Nancy Kovacs social history E&M Marital Statu s: E thnicity: Smoking History: P atient is a former smoker. Rangel Slaughter MD social history reviewed E&M revi ewed - no changes required Rangel Slaughter MD physical exercise, f requency, days per week yes [facility] caffeine use, averag e drinks per day 0 /d [facility] passive cigarette sm daniel exposure yes [facility] smoking status Former smoker [facility] social history E&M Marital Statu s: E thnicity: Smoking History: P atient is a former smoker. Rangel Slaughter MD social history reviewed E&M revi ewed - no changes required Rangel Slaughter MD physical exercise, f requency, days per week yes [facility] caffeine use, averag e drinks per day 0 /d [facility] passive cigarette sm daniel exposure yes [facility] smoking status Former smoker [facility] smoking status Former smoker Effie ha NP social history E&M Marital Statu s: E thnicity: Smoking History: P atmarco is a former smoker. Effie Friedman NP social history reviewed E&M revi ewed - no changes required Effie Friedman NP physical exercise, f requency, days per week yes Sabina Hunter alcohol use, average drinks per day none Sabina Hunter alcohol use no Sabina Barrera nson caffeine [...] yes Sheryl Joan smoking status Former smoker Sehryl Joan social history reviewed E&M revi ewed - no changes required Jesus Reyes social history E&M Marital Statu s: E thnicity: Smoking History: Khadra farrell is a former smoker. Jesus Reyes physical exercise, f requency, days per week yes Arabella Hernandez alcohol use, average drinks per day none Sallis Hernandez alcohol use no Sallis Hernandez caffeine use, averag e drinks per day no Arabella Hernandez drug use none Arabella Hernandez passive cigarette sm daniel exposure [facility]oker Arabella Ingr social history reviewed E&M revi ewed - no changes required Jesus Reyes social history E&M Marital Statu s: E thnicity: Smoking History: Khadra farrell is a former smoker. Jesus Reyes physical [...] Sabina Hunter alcohol use no Sabina Barrera nson caffeine use, averag e drinks per day no Sabina Hunter drug use none Sabina Barrera nson passive [...] none Cassia Martel alcohol use no Cassia moore caffeine use, averag e drinks per day no Cassia Martel drug use none Cassia cheryer passive cigarette sm daniel exposure yes Cassia [...] status Former smoker Sabina Grande social history E&M Marital Statu s: E thnicity: Smoking History: Khadra farrell is a former smoker. Rosario Fay MD [...] Statu s: E thnicity: Smoking History: P atmarco is a former smoker. Rangel Slaughter MD physical exercise, f requency, days per week yes Sabina Hunter alcohol use, average drinks per day none Sabina Hunter alcohol use no Sabina Barrera nson caffeine use, averag e drinks per day no SabinaRamona Hunter drug use none SabinaRamona Torrese eden passive cigarette sm daniel exposure yes Sabina Hunter social history reviewed E&M revi ewed - no changes required Rosario Fay MD physical exercise, f requency, days per week yes Judy Medina alcohol use, average drinks per day none Judy Medina alcohol use no Judy Medina caffeine use, averag e drinks per day no Judy Medina drug use none Judy Medina passive cigarette sm daniel exposure yes Judy Medina smoking status Former smoker Judy Stoddard christian social history reviewed E&M revi ewed - no changes required Rosario Fay MD physical exercise, f requency, days per week yes Sabina Hunter alcohol use, average drinks per day none Sabina Hunter alcohol use no SabinaRamona Torrese eden caffeine use, averag e drinks per day no Sabina Hunter drug use none SabinaRamona harmon passive cigarette sm daniel exposure yes [...] Xochitl Horsey smoking status Former smoker Xochitl meyers social history E&M Marital Statu s: E thnicity: Smoking History: P bud is a former smoker. P bud has been counseled to quit. Rosario Fay [...] average drinks per day none Judy Medina alcohol use no Judy Medina caffeine use, averag e drinks per day no Judy Medina drug use none Judy Medina passive cigarette sm daniel exposure yes Judy Medina smoking/tobacco cess ation, patient education and counseling yes Judy Medina smoking status Former smoker Judy Stoddard nn social history reviewed E&M revi ewed - no changes required Rosario Fay MD physical exercise, f requency, days per week yes Judy Lyn alcohol use, average drinks per day none Judy Lyn alcohol use no Judy Lyn caffeine use, averag e drinks per day no Judy Lyn drug use none Judy Lyn passive cigarette sm daniel exposure yes Judy Lyn smoking/tobacco cess ation, patient education and counseling yes Judy Lyn smoking status Former smoker Judy Lyn smoking/tobacco cess ation, patient education and counseling yes Rangel Slaughter MD social history reviewed E&M revi ewed - no changes required Rangel Slaughter MD alcohol use no Cassia Stonekp lder smoking status Former smoker Cassia Stone nfelder social history reviewed E&M revi ewed - no changes required Rosario Fay MD physical exercise, f requency, days per week yes Sabina Hunter alcohol use, average drinks per day none Sbaina Hunter caffeine use, averag e drinks per [...] Judy Medina smoking status Former smoker Judy Richi gonzales quit smoking, stage quit Rangel ibrahim [...] Moreno Posada RN drug use no Cassia moore passive cigarette sm daniel exposure yes Cassia Martel smoking history, tot al pack/year 7.5 Cassia Martel smoking, year quit 1982 Cassia dietz smoking status former smoker Cassia wilkerson quit smoking, stage quit Rangel ibrahim [...] or m ore [facility] smoking status Quit [facility] FUNCTIONAL STATUS Date Observation Value Provider HRA, CV Assess/Plan, Angina (inactive) Management Plan continue current therapy, antianginal therapy Aaron Wooten MD HRA, CV Assess/Plan, Angina (inactive) Management Plan continue current therapy Nancy Trevino NP HRA, CV Assess/Plan, Angina (inactive) Management Plan continue current therapy Riley Pollock NP HRA, CV Assess/Plan, Angina (inactive) Management Plan continue current therapy Francisco Aguirre HRA, CV Assess/Plan, Angina (inactive) Management Plan [...] Payer name Policy type / Coverage type [employer] party ID [facility] [id number] [place] MED[employer] Medicare [id number] ADVANCE DIRECTIVES Name Date DISCUSSED - NO DECISION MADE TREATMENT PLAN Date Name Performer [id number],C,ef 60 pro 239 Rangel Slaughter MD [id number],C,On Vit D supp lements Riley Pollock MULLING MACHINE OPERATOR [id number],C, H is updated medication list for this problem includes: Atorvastatin 40 Mg Tablet (Atorvastatin) ..... Take 1 tablet every day Vascepa 1 Gram Capsule (Icosapent ethyl) ..... Take 2 capsules by mouth twice a day Riley Pollock MULLING MACHINE OPERATOR [id number],C,M anaged per PCP. H is updated medication list for this problem includes: Metformin 750 Mg Tablet Extended Release 24 Hr (Metformin) ..... Take one tablet by mouth daily Losartan 50 Mg Tablet (Losartan) ..... Take 1 tablet twice daily Riley Pollock MULLING MACHINE OPERATOR [id number],C, H is updated medication list for this problem includes: Atorvastatin 40 Mg Tablet (Atorvastatin) ..... Take 1 tablet every day Vascepa 1 Gram Capsule (Icosapent ethyl) ..... Take 2 capsules by mouth twice a day Riley Pollock MULLING MACHINE OPERATOR [id number],C,E KG in office today V-paced. On OAC, denies having any bleeding issues/concerns. His updated medication list for this problem includes: Carvedilol 25 Mg Tablet (Carvedilol) ..... Take 1 tablet twice daily Sotalol 120 Mg Tablet (Sotalol) ..... Take 1 tablet twice daily Riley Pollock MULLING MACHINE OPERATOR [id number],C,W ill repeat Echo in 07/2023 C ONCLUSIONS: [...] Take 1 tablet twice daily Riley Pollock [id number],C,R PM Avg BP 121/73, HR 81 H is updated medication list for this problem includes: Carvedilol 25 Mg Tablet (Carvedilol) ..... Take 1 tablet twice daily Sotalol 120 Mg Tablet (Sotalol) ..... Take 1 tablet twice daily Losartan 50 Mg Tablet (Losartan) ..... Take 1 tablet twice daily [facility] [id number],C,[facility] [id number],C,D evice check 11/28/22 A T/AF [place]: 0.0% % Pacing: RA - 98.0% RV - 100.0% LV - 100.0% B attery 90% [facility] [id number],C, H is updated medication list for this problem includes: Carvedilol 25 Mg Tablet (Carvedilol) ..... Take 1 tablet twice daily Sotalol 120 Mg Tablet (Sotalol) ..... Take 1 tablet twice daily [facility] [id number],S, H is updated medication list for this problem includes: Atorvastatin 40 Mg Tablet (Atorvastatin) ..... Take 1 tablet every day Vascepa 1 Gram Capsule (Icosapent ethyl) ..... 2 capsule by mouth twice a day C HOL: 103 (04/17/2018) HDL: 26 (04/17/2018) CHOL (goal): 200 (10/09/2010) LDL (goal): 70 (10/09/2010) HDL (goal): 40 (10/09/2010) TG (goal): 150 (10/09/2010) Rangel Serotmac HUNTER [id number],S, Rangel Serot a [id number],S, n o angina. last cath 2018 grafts open Rangel Serotmac HUNTER [id number],B, Rangel Serot a [id number],S, n o recurrence. device interrogation 04/17/21 no AF, 17 mode switches, battery ok.\ Rangel Serotmac HUNTER [id number],S,too have suer gy Rangel Serotmac HUNTER [id number],B, Rangel Serot a [id number],S, fu zerot psa Rangel Serota [id number],S, Rangel Serot a [id number],C,74 Rangel Ser anamaria [id number],B,7 Rangel Sero ta [id number],S, r a set 80, biv 100 Rangel Serotmac HUNTER [id number],S, 9 Rangel Serota [id number],B, fu zerot psa Rangel Serota [id number],B, Rangel Serot a [id number],C, n eg uacr, neg hiv n eg sleep, neg aaa, ne ror n eg pft and tsh Rangel Serotmac HUNTER [id number],S, Rangel Serota [id number],B, c orredct with iv does not want colon Rangel Serotmac HUNTER [id number],S, Rangel Serot a [id number],B, Rangel Serot a [id number],S, e f 60 490 pro Rangel Serota [id number],B, 2 3 Rangel Serota [id number],S, Rangel Serota [id number],S, n o angina. last cath 2018 grafts open Rangel Serota [id number],S, n o angina. last cath 2018 grafts open Rangel Serota [id number],S, r a set 80, biv 100 Rangel Serota [id number],S,23 Rangel Ser anamaria [id number],S,fu zerot psa Rangel Serota [id number],S, Rangel Serot a [id number],B,9 Rangel Sero ta [id number],B,ra set 80, bi v 100 Rangel Serota [id number],S, n eg uacr, neg hiv n eg sleep, neg aaa, ne ror n eg pft and tsh Rangel Serota [id number],S,ef 60 490 pro Rangel Serota [id number],S, c orredct with iv does not want colon Rangel Serota [id number],B, H is updated medication list for this problem includes: Vascepa 1 Gram Capsule (Icosapent ethyl) ..... 2 capsule by mouth twice a day Atorvastatin 40 Mg Tablet (Atorvastatin) ..... Take 1 tablet once a day C HOL: 103 (04/17/2018) HDL: 26 (04/17/2018) CHOL (goal): 200 (10/09/2010) LDL (goal): 70 (10/09/2010) HDL (goal): 40 (10/09/2010) TG (goal): 150 (10/09/2010) Rangel Slaughter MD [id number],B, Rangel watts MD [id number],C,follows with PCP Nancy Martiniman MULLING MACHINE OPERATOR [id number],C,last device c heck 04/2021 no afib Nancy Trevino MULLING MACHINE OPERATOR [id number],C, l ast echo 11/2019 EF 65% diastolic dysfunction Nancy Trevino MULLING MACHINE OPERATOR [id number],C,B P today 160/90. pt states that at home he runs 130's-140's Nancy Trevino MULLING MACHINE OPERATOR [id number],C, l ast device check 04/17/2021 normal function, no AF. 17 mode switches, battery ok 2yrs, 1 month. Nancy Kesslersunny MULLING MACHINE OPERATOR [id number],C,n o angina. last cath 2018 grafts open Nancy Kesslersunny MULLING MACHINE OPERATOR [id number],C,09/2020 LFTs n ormal Nancy Kesslerr MULLING MACHINE OPERATOR [id number],C,o n supplementation Nancy Kesslerr MULLING MACHINE OPERATOR [id number],C,n o recurrence. device interrogation 04/17/21 no AF, 17 mode switches, battery ok. 2 yrs/1 month Nancy Trevino MULLING MACHINE OPERATOR [id number],C,: chol 124, trig 214, HDL 28, LDL 53. pt states that he has not been taking vascepa Nancy Kesslersunny MULLING MACHINE OPERATOR Take your medication s every day as [...] of Breath, Palpitations, Dizziness, or Edema. Dinah Menon :[id number] Rangel Slaughter MD Cardiology: H is updated medication list for this problem includes: Furosemide 40 Mg Tablet (Furosemide) ..... 1 tablet by mouth twice a day Sotalol 120 Mg Tablet (Sotalol) ..... Take 1 tablet twice daily Losartan 50 Mg Tablet (Losartan) ..... Take 1 tablet twice daily Carvedilol 25 Mg Tablet (Carvedilol) ..... Take 1 tablet twice daily BP today: 131/64 P rior BP: 127/72 (11/04/2024) Prior 10 Yr Risk Heart Disease: N/A (10/09/2010) Labs Reviewed: C reat: 1.11 (07/17/2023) C hol: 103 (04/17/2018) HDL: 26 (04/17/2018) LDL: 32 (04/17/2018) T (04/17/2018) Aaron Wooten MD Cardiology:ADDED ASTON NASE FOR POST NASAL DRIP Aaron Wooten MD Cardiology: N o angina. Will continue current medications Araon Wooten MD Cardiology:ADD KLORC ON 10MEQ every other day C ONTINUE WITH LASIX 40MG BID C ONTINUE WITH DIURETICS FOR LEG EDEMA H is updated medication list for this problem includes: Furosemide 40 Mg Tablet (Furosemide) ..... 1 tablet by mouth twice a day Sotalol 120 Mg Tablet (Sotalol) ..... Take 1 tablet twice daily Losartan 50 Mg Tablet (Losartan) ..... Take 1 tablet twice daily Carvedilol 25 Mg Tablet (Carvedilol) ..... Take 1 tablet twice daily Aaron Wooten MD Cardiology: s /p PPM L ast device check with appropriate device function 0 .0% Afib brden C ontinue current medications. Riley Wilderadelina BLAIR Cardiology: L ast echo 08/2023 ef 60% P atient with BUE/ BLE edema, fluid retention W ill give Lasix 40 mg BID for 1 week and have patient follow up in office W ill check labs prior to follow up Riley Wilderadelina BLAIR Cardiology: B P well controlled. Will continue current mmedications T he following medications were removed from the medication list: Furosemide 20 Mg Tablet (Furosemide) ..... 1 tablet by mouth once a day His updated medication list for this problem includes: Furosemide 40 Mg Tablet (Furosemide) ..... 1 tablet by mouth twice a day Sotalol 120 Mg Tablet (Sotalol) ..... Take 1 tablet twice daily Losartan 50 Mg Tablet (Losartan) ..... Take 1 tablet twice daily Carvedilol 25 Mg Tablet (Carvedilol) ..... Take 1 tablet twice daily Riley Adameleana BLAIR Cardiology: N o angina. Will continue current medications Riley Wilderadelina BLAIR Electrophysiology:no new events on last remote check O n Eliquis for OAC with no bleeding issues/concerns s /p ppm Nancy Trevino NP Electrophysiology: B P today: 132/70 P rior [...] Nancy Trevino JOHNNIE Electrophysiology:see #1 Reji Trevino MULLING MACHINE OPERATOR Electrophysiology:no recurrence n o new events on [...] ..... Take 1 tablet every day Riley Wilderadelina BLAIR Cardiology: R PMAvg BP 117/68, HR 77 [...] with no bleeding issues/concerns s /p ppm [facility] Cardiology: e f 60 pro 239 Clinically appears compensated Riley Wilderadelina BLAIR Cardiology: N o angina His updated medication list for this problem includes: Sotalol 120 Mg Tablet (Sotalol) ..... Take 1 tablet twice daily Carvedilol 25 Mg Tablet (Carvedilol) ..... Take 1 tablet twice daily Riley Wilderadelina BLAIR Electrophysiology wo und check : e f 60 pro 239 His updated medication list for this problem includes: Losartan 50 Mg Tablet (Losartan) ..... Take 1 tablet twice daily Carvedilol 25 Mg Tablet (Carvedilol) ..... Take 1 tablet twice daily Sotalol 120 Mg Tablet (Sotalol) ..... Take 1 tablet twice daily Francisco Aguirre Electrophysiology wo und check : H is updated medication list for this problem includes: Vascepa 1 Gram Capsule (Icosapent ethyl) ..... Take 2 capsules by mouth twice a day as directed Atorvastatin 40 Mg Tablet (Atorvastatin) ..... Take 1 tablet every day Francisco Hartmannri Electrophysiology wo und check : H is updated medication list for this problem includes: Carvedilol 25 Mg Tablet (Carvedilol) ..... Take 1 tablet twice daily Sotalol 120 Mg Tablet (Sotalol) ..... Take 1 tablet twice daily Francisco Huddlestoninari :still anemia after iv iron did not want Rangel mederos MD Telehealth: s cheduled for gen change on 07/23 p rocedure discussed with and explained to patient Kaveh Sylwia :ef 60 pro 239 Rangel Slaughter MD Cardiology-seen with MULLING MACHINE OPERATOR:On Vit D supplements Riley Pollock NP Cardiology-seen with MULLING MACHINE OPERATOR: H is updated medication list for this problem includes: Atorvastatin 40 Mg Tablet (Atorvastatin) ..... Take 1 tablet every day Vascepa 1 Gram Capsule (Icosapent ethyl) ..... Take 2 capsules by mouth twice a day Riley Pollock NP Cardiology-seen with MULLING MACHINE OPERATOR:Managed per PCP. H is updated medication list for this problem includes: Metformin 750 Mg Tablet Extended Release 24 Hr (Metformin) ..... Take one tablet by mouth daily Losartan 50 Mg Tablet (Losartan) ..... Take 1 tablet twice daily Riley Pollock NP Cardiology-seen with MULLING MACHINE OPERATOR: H is updated medication list for this problem includes: Atorvastatin 40 Mg Tablet (Atorvastatin) ..... Take 1 tablet every day Vascepa 1 Gram Capsule (Icosapent ethyl) ..... Take 2 capsules by mouth twice a day Riley Pollock NP Cardiology-seen with MULLING MACHINE OPERATOR:EKG in office today V-paced. On OAC, denies having any bleeding issues/concerns. His updated medication list for this problem includes: Carvedilol 25 Mg Tablet (Carvedilol) ..... Take 1 tablet twice daily Sotalol 120 Mg Tablet (Sotalol) ..... Take 1 tablet twice daily Riley Pollock NP Cardiology-seen with MULLING MACHINE OPERATOR:Will repeat Echo in 07/2023 C ONCLUSIONS: Echo [...] twice daily Riley Pollock NP Cardiology-seen with MULLING MACHINE OPERATOR:RPM Avg BP 121/73, HR 81 H is updated medication list for this problem includes: Carvedilol 25 Mg Tablet (Carvedilol) ..... Take 1 tablet twice daily Sotalol 120 Mg Tablet (Sotalol) ..... Take 1 tablet twice daily Losartan 50 Mg Tablet (Losartan) ..... Take 1 tablet twice daily Riley Pollock NP Cardiology-seen with MULLING MACHINE OPERATOR:Patient is on statin Riley Pollock NP Cardiology-seen with MULLING MACHINE OPERATOR:Device check 11/28/22 A T/AF [place]: 0.0% % Pacing: RA - 98.0% RV - 100.0% LV - 100.0% B attery 90% Riley Pollock NP Cardiology-seen with MULLING MACHINE OPERATOR: H is updated medication list for this [...] Rangel Slaughter MD Cardiology: 2 3 Rangel Slauhgter MD Cardiology Rangel Slaughter MD Cardiology: n o angina. last cath 2018 grafts open Rangel Slaughter MD Cardiology: n o angina. last cath 2018 grafts open Rangel Slaughter MD Cardiology: r a set 80, biv 100 Rangel Slaughter MD TeleHealth:23 Rangel Slaughter MD TeleHealth:fu zerot psa Rangel ibrahim MD TeleHealth Rangel Slaughter MD TeleHealth:9 aRngel Slaughter MD TeleHealth:ra set 80, biv 100 [...] PCP Emily Trevino NP Cardiology:last device check 9/2 021 no afib Nancy Trevino MULLING MACHINE OPERATOR Cardiology: l ast echo 11/2019 EF 65% diastolic dysfunction Nancy Trevino MULLING MACHINE OPERATOR Cardiology:BP today 160/90. pt states that at home he runs 130's-140's Nancy Trevino MULLING MACHINE OPERATOR Cardiology: l ast device check 04/17/2021 normal function, no AF. 17 mode switches, battery ok 2yrs, 1 month. Nancy Trevino MULLING MACHINE OPERATOR Cardiology:no angina . last cath 2018 grafts open Nancy Trevino JOHNNIE Cardiology:09/2020 LFTs normal Je wild Trevino JOHNNIE Cardiology:on supple mentation Nancy Trevino JOHNNIE Cardiology:no [...] twice daily --gwen! universal coupon code: bin# [id number], pcn# [id number], grp# [id number], id# [id number] Atorvastatin Tab 40mg Tablet (Atorvastatin calcium) ..... [...] by mouth twice a day Effie Friedman MULLING MACHINE OPERATOR Cardiology:last yvan ce check 09/27/2020 normal function, 100 % dependent RV and LV. Effie Friedman MULLING MACHINE OPERATOR Cardiology Effie Friedman MULLING MACHINE OPERATOR Cardiology: H is updated medication list for [...] not want colon Rangel Slaughter MD Cardiology Rnagel Slaughter MD Cardiology: n ot seen lately [...] MD Electrophysiology:Or ders: 9 9214 MOD Complex (CPT-10517) His updated medication list for this problem includes: Sotalol Hcl 120 Mg Oral Tablet (Sotalol hcl) ..... One tab. twice daily Metoprolol Tartrate 25 Mg Oral Tablet (Metoprolol tartrate) ..... One tab. twice daily Jesus Eric Electrophysiology:Or ders: F VC - 75463 (05963) F RC - 58105 (18023) D LCO - 93687 (24600) 9 9214 MOD Complex (CPT-02618) His updated medication list for this problem [...] ICD upgrade recommended. O rders: E KG (CPT-92133) 9 9214 MOD Complex (CPT-73896) His updated medication list for this problem includes: Sotalol Hcl 120 Mg Oral Tablet (Sotalol hcl) ..... One tab. twice daily Metoprolol Tartrate 25 Mg Oral Tablet (Metoprolol tartrate) ..... One tab. twice daily Jesus Eric Electrophysiology:Or ders: 9 9214 MOD Complex (CPT-45073) His updated medication list for this problem includes: Sotalol Hcl 120 Mg Oral Tablet (Sotalol hcl) ..... One tab. twice daily Metoprolol Tartrate 25 Mg Oral Tablet (Metoprolol tartrate) ..... One tab. twice daily Jesus Reyes Cardiology follow up :Orders: C ardiac Cath - L/R- [facility] (*) 9 9215 HIGH Complex (CPT-30969) Jesus Reyes Cardiology follow up :Seen acutely for documented VT on pacer check today. Plan for cardiac cath KELSEA and possible upgrade from BiV PPM to BiV ICD. Orders: C OMPREHENSIVE METABOLIC PANEL, W/EGFR (73506) P ROBNP, N TERMINAL (17891) C BC (H/H, RBC, INDICES, WBC, PLT) (1759) L IPID PANEL (7600) T HYROID PANEL WITH TSH, 3RD GENERATION (7444) P artial Thromboplastin Time, Activated (763) P ROTHROMBIN TIME WITH INR (8847) C ardiac Cath - L/R- [facility] (*) 9 9215 HIGH Complex (CPT-19896) His updated medication list for this problem includes: Sotalol Hcl 120 Mg Oral Tablet (Sotalol hcl) ..... One tab. twice daily Metoprolol Tartrate 25 Mg Oral Tablet (Metoprolol tartrate) ..... One tab. twice daily Jesus Reyes Cardiology follow up :Orders: C ardiac Cath - L/R- [facility] (*) 9 9215 HIGH Complex (CPT-40382) His updated medication list for this problem includes: Sotalol Hcl 120 Mg Oral Tablet (Sotalol hcl) ..... One tab. twice daily Metoprolol Tartrate 25 Mg Oral Tablet (Metoprolol tartrate) ..... One tab. twice daily Jesusus Reyes Cardiology:CHOL: 154 .0 (06/16/2015) HDL: 29.0 [...] MD Cardiology Follow u p:in sinus, had [id number] Rangel Slaughter MD Cardiology Follow u p: [...] p: O rders: A ortic Abdominal Ultrasound (CPT-28217) Rangel Slaughter MD Cardiology Follow u p [...] Slaughter MD EP:Orders: A ortic Abdominal Ultrasound (CPT-45660) Rosario Fay MD EP:Orders: C arotid Duplex Bilateral (CPT-65642) Rosario Fay MD EP:Labs Reviewed: H gBA1c: 5.7 (06/16/2015) Creat: 1.0 (12/14/2015) His updated medication list for this problem includes: Cozaar 25 Mg Tabs (Losartan potassium) ..... One tab. daily Glimepiride 2 Mg Tabs (Glimepiride) ..... Once daily Orders: S NOMED-CT: [id number] Current Medications Documented ([facility]-[id number]) C OMPREHENSIVE METABOLIC PANEL W/EGFR (74261) H EMOGLOBIN A1c (496) Rosario Fay MD EP:Orders: S NOMED-CT: [id number] Current Medications Documented ([facility]-[id number]) C OMPREHENSIVE METABOLIC PANEL W/EGFR (40285) L IPID PANEL (7600) Rosario Fay MD EP:BP today: 154/80 P [...] (Atorvastatin calcium) ..... One tab. daily Rangel Slauhgter MD Cardiology:CHOL: 154 .0 (06/16/2015) LDL: 98.6 [...] Pulmonary Function Rangel Slaughter MD :1. LARGE [id number] LAR JOINT EFFUSION. 2 . TRICOMPARTMENTAL OSTEOARTHRITIS, [id number] AT MEDIAL FEMOROTIBIAL JOINT. 3 . INFRAPATELLAR LOOSE BODY. A preliminary report was provided at the time of dictation. T RANSCRIPTIONIST: PW2 Rangel Slaughter MD EP Faxed 06/12/15 1154 Rosario mullen MD EP Faxed 06/12/15 115 [...] Afib ablation. Orders: 9 9215 HIGH Complex (CPT-21967) Rosario Fay MD follow up Rangel Slaughter [...] % RCA stenosis: 99% proixmal, 80% distal. [facility] [place] (12/19/2003) H gb: 15.9 (11/11/2010) HCT: 45.1 [...] % RCA stenosis: 99% proixmal, 80% distal. [facility] (12/19/2003) C arotid Doppler/Duplex: Mild plaque with [...] Follow up: O rders: C omplete Echo (CPT-16700) Rangel Slaughter MD Follow up: O rders: C omplete Echo (CPT-23206) Rangel Slaughter MD Follow up: H is updated medication list for this problem includes: Altace 10 Mg Caps (Ramipril) ..... One tab. daily Sotalol Hcl 120 Mg Tabs (Sotalol hcl) ..... One tab. twice daily Orders: C omplete Echo (CPT-46342) Rangel Slaughter MD Follow up: O rders: C omplete Echo (CPT-91900) Rangel Slaughter MD Follow up: H is [...] hcl coated beads) ..... One daily Rangel lSaughter MD clindesk not reveiwe d: H is updated medication list for this problem includes: Cozaar 100 Mg Tabs (Losartan potassium) ..... One tab. daily Cardizem Cd 240 Mg Cp24 (Diltiazem hcl coated beads) ..... One daily Rangel Slaughter MD [employer]esk not reveiwed Rangel conrad MD [employer]esk not reveiwe d: O rders: C omplete Echo (CPT-58895) Rangel Slaughter MD [employer]esk not reveiwe d: O rders: C omplete Echo (CPT-29269) Rangel Slaughter MD clindesk not reveiwe d: H is updated medication list for this problem includes: Cozaar 100 Mg Tabs (Losartan potassium) ..... One tab. daily Orders: C omplete Echo (CPT-70830) Rangel Slaughter MD clindesk not reveiwe d: O rders: C omplete Echo (CPT-99144) Rangel Slaughter MD clindesk not reveiwe d: O rders: C omplete Echo (CPT-17108) Rangel Slaughter MD clindesk not reveiwe d: [...] % RCA stenosis: 99% proixmal, 80% distal. [facility] (12/19/2003) H gb: 15.9 (11/11/2010) HCT: 47.7 [...] % RCA stenosis: 99% proixmal, 80% distal. [facility] (12/19/2003) C HOL: 88 (06/09/2012) LDL: 37 [...] ..... One tab. daily Orders: E KG (CPT-43610) BP today: 132/88 P rior BP: 159/75 [...] % RCA stenosis: 99% proixmal, 80% distal. [facility] [place] (12/19/2003) C HOL: 88 (06/09/2012) LDL: 37 [...] Mg Tabs (Amlodipine-atorvastatin) ..... One tab. daily(changed 3/2) Niaspan 1000 Mg Tbcr (Niacin (antihyperlipidemic)) ..... [...] scintigraphic evidence of myocardial ischemia or scar. [facility] (01/04/2009) C ardiac Cath: EF - 60% M oderate hypokinesis of the anterolateral segment. N ormal left heart hemodynamics. % Left Main stenosis: 50% left main. % CX stenosis: 50% proximal. % 1st Diagonal stenosis: 80% proximal % LAD stenosis: 40% mid % RCA stenosis: 99% proixmal, 80% distal. [facility] (12/19/2003) B UN: 16 (09/05/2009) Creat: 1.07 [...] scintigraphic evidence of myocardial ischemia or scar. [facility] (01/04/2009) E chocardiogram: Patient is in atrial [...] % RCA stenosis: 99% proixmal, 80% distal. [facility] (12/19/2003) B UN: 16 (09/05/2009) Creat: 1.07 [...] scintigraphic evidence of myocardial ischemia or scar. [facility] (01/04/2009) C ardiac Cath: EF - 60% M oderate hypokinesis of the anterolateral segment. N ormal left heart hemodynamics. % Left Main stenosis: 50% left main. % CX stenosis: 50% proximal. % 1st Diagonal stenosis: 80% proximal % LAD stenosis: 40% mid % RCA stenosis: 99% proixmal, 80% distal. [facility] [place] (12/19/2003) T SH: 1.60 (05/17/2009) T4 (total): [...] scintigraphic evidence of myocardial ischemia or scar. [facility] (01/04/2009) C ardiac Cath: EF - 60% M oderate hypokinesis of the anterolateral segment. N ormal left heart hemodynamics. % Left Main stenosis: 50% left main. % CX stenosis: 50% proximal. % 1st Diagonal stenosis: 80% proximal % LAD stenosis: 40% mid % RCA stenosis: 99% proixmal, 80% distal. [facility] [place] (12/19/2003) T SH: 1.60 (05/17/2009) T4 (total): [...] scintigraphic evidence of myocardial ischemia or scar. [facility] (01/04/2009) E chocardiogram: Normal LV size. Moderate concentric LVH. EF 55%. E/E` IS 6. No significant valvular abnormalities seen. [facility] [place] [place] (01/04/2009) C ardiac Cath: EF - 60% M oderate hypokinesis of the anterolateral segment. N ormal left heart hemodynamics. % Left Main stenosis: 50% left main. % CX stenosis: 50% proximal. % 1st Diagonal stenosis: 80% proximal % LAD stenosis: 40% mid % RCA stenosis: 99% proixmal, 80% distal. [facility] [place] (12/19/2003) T SH: 1.60 (05/17/2009) T4 (total): [...] (03/15/2009) Orders: H olter Monitor 24 Hr (CPT-09776) Rangel Slaughter MD sotolol stopped due to [...] scintigraphic evidence of myocardial ischemia or scar. [facility] (01/04/2009) C ardiac Cath: EF - 60% M oderate hypokinesis of the anterolateral segment. N ormal left heart hemodynamics. % Left Main stenosis: 50% left main. % CX stenosis: 50% proximal. % 1st Diagonal stenosis: 80% proximal % LAD stenosis: 40% mid % RCA stenosis: 99% proixmal, 80% distal. [facility] [place] (12/19/2003) Orders: H olter Monitor 24 Hr (CPT-73872) Rangel Slaughter MD sotolol stopped due to slow hr: H is updated medication list for this problem includes: Niaspan 1000 Mg Tbcr (Niacin (antihyperlipidemic)) ..... Two tabs. at bedtime Caduet 5-10 Mg Tabs (Amlodipine-atorvastatin) ..... One tab. daily BP today: 144/73 Prior BP: 135/73 (03/15/2009) Orders: H olter Monitor 24 Hr (CPT-76828) Rangel Slaughter MD sotolol stopped due to slow hr: O rders: H olter Monitor 24 Hr (CPT-44605) Rangel Slaughter MD sotolol stopped due to slow hr: H is updated medication list for this problem includes: Altace 10 Mg Caps (Ramipril) ..... One tab. daily Caduet 5-10 Mg Tabs (Amlodipine-atorvastatin) ..... One tab. daily Aspirin 325 Mg Tabs (Aspirin) ..... One tab daily BP today: 144/73 P rior BP: 135/73 (03/15/2009) Orders: H olter Monitor 24 Hr (CPT-34343) Rangel Slaughter MD sotolol stopped due to [...] scintigraphic evidence of myocardial ischemia or scar. [facility] (01/04/2009) C ardiac Cath: EF - 60% M oderate hypokinesis of the anterolateral segment. N ormal left heart hemodynamics. % Left Main stenosis: 50% left main. % CX stenosis: 50% proximal. % 1st Diagonal stenosis: 80% proximal % LAD stenosis: 40% mid % RCA stenosis: 99% proixmal, 80% distal. [facility] [place] (12/19/2003) Orders: H olter Monitor 24 Hr (CPT-63024) Rangel Slaughter MD sotolol stopped due to slow hr: H is updated medication list for this problem includes: Altace 10 Mg Caps (Ramipril) ..... One tab. daily Aspirin 325 Mg Tabs (Aspirin) ..... One tab daily Multaq 400 Mg Tabs (Dronedarone hcl) ..... One tab with morning meal. one tab with evening meal. Orders: H olter Monitor 24 Hr (CPT-05229) Rangel Slaughter MD sotolol stopped due to slow hr: H is updated medication list for this problem includes: Aspirin 325 Mg Tabs (Aspirin) ..... One tab daily Multaq 400 Mg Tabs (Dronedarone hcl) ..... One tab with morning meal. one tab with evening meal. Orders: T HYROID PANEL WITH TSH, 3RD GENERATION (7444) H olter Monitor 24 Hr (CPT-11485) Rangel Slaughter MD afib will increase s otolol and reholter and fu: O rders: H olter Monitor 24 Hr (CPT-75332) Rangel Slaughter MD afib will increase s otolol and reholter and fu: H is updated medication list for this problem includes: Altace 10 Mg Caps (Ramipril) ..... One tab. daily Glimepiride 2 Mg Tabs (Glimepiride) ..... 1 tablet by mouth daily Aspirin 325 Mg Tabs (Aspirin) ..... One tab daily BP today: 135/73 Prior BP: 142/72 (02/01/2009) Orders: H olter Monitor 24 Hr (CPT-[id number]) Rangel Slaughter MD afib will increase s [...] scintigraphic evidence of myocardial ischemia or scar. [facility] (01/04/2009) C ardiac Cath: EF - 60% M oderate hypokinesis of the anterolateral segment. N ormal left heart hemodynamics. % Left Main stenosis: 50% left main. % CX stenosis: 50% proximal. % 1st Diagonal stenosis: 80% proximal % LAD stenosis: 40% mid % RCA stenosis: 99% proixmal, 80% distal. [facility] (12/19/2003) Orders: H olter Monitor 24 Hr (CPT-[id number]) Rangel Slaughter MD afib will increase s otolol and reholter and fu: H is updated medication list for this problem includes: Niaspan 1000 Mg Tbcr (Niacin (antihyperlipidemic)) ..... Two tabs. at bedtime Caduet 5-10 Mg Tabs (Amlodipine-atorvastatin) ..... One tab. daily BP today: 135/73 Prior BP: 142/72 (02/01/2009) Orders: H olter Monitor 24 Hr (CPT-[id number]) Rangel Slaughter MD afib will increase s otolol and reholter and fu: O rders: H olter Monitor 24 Hr (CPT-16164) Rangel Slaughter MD afib will increase s [...] scintigraphic evidence of myocardial ischemia or scar. [facility] (01/04/2009) C ardiac Cath: EF - 60% M oderate hypokinesis of the anterolateral segment. N ormal left heart hemodynamics. % Left Main stenosis: 50% left main. % CX stenosis: 50% proximal. % 1st Diagonal stenosis: 80% proximal % LAD stenosis: 40% mid % RCA stenosis: 99% proixmal, 80% distal. [facility] (12/19/2003) Orders: H olter Monitor 24 Hr (CPT-77594) Rangel Slaughter MD afib will increase s [...] (02/01/2009) Orders: H olter Monitor 24 Hr (CPT-[id number]) Rangel Slaughter MD afib will increase s otolol and reholter and fu: H is updated medication list for this problem includes: Altace 10 Mg Caps (Ramipril) ..... One tab. daily Aspirin 325 Mg Tabs (Aspirin) ..... One tab daily Sotalol Hcl 80 Mg Tabs (Sotalol hcl) ..... 1 tablet by mouth twice daily Orders: H olter Monitor 24 Hr (CPT-[id number]) Rangel Slaughter MD afib will increase s otolol and reholter and fu: H is updated medication list for this problem includes: Aspirin 325 Mg Tabs (Aspirin) ..... One tab daily Sotalol Hcl 80 Mg Tabs (Sotalol hcl) ..... 1 tablet by mouth twice daily Orders: H olter Monitor 24 Hr (CPT-[id number]) Rangel Slaughter MD paf stable will increase [...] scintigraphic evidence of myocardial ischemia or scar. [facility] (01/04/2009) C ardiac Cath: EF - 60% M oderate hypokinesis of the anterolateral segment. N ormal left heart hemodynamics. % Left Main stenosis: 50% left main. % CX stenosis: 50% proximal. % 1st Diagonal stenosis: 80% proximal % LAD stenosis: 40% mid % RCA stenosis: 99% proixmal, 80% distal. [facility] (12/19/2003) Orders: C omplete Echo (CPT-[id number]) Rangel Slaughter MD paf, stable will inc rease sotolol and repeat holter: H is updated medication list for this problem includes: Aspirin 325 Mg Tabs (Aspirin) ..... One tab daily Sotalol Hcl 80 Mg Tabs (Sotalol hcl) ..... 1/2 tablet by mouth twice daily Orders: H olter Monitor 24 Hr (CPT-03702) Rangel Slaughter MD paf, stable will inc [...] scintigraphic evidence of myocardial ischemia or scar. [facility] (01/04/2009) C ardiac Cath: EF - 60% M oderate hypokinesis of the anterolateral segment. N ormal left heart hemodynamics. % Left Main stenosis: 50% left main. % CX stenosis: 50% proximal. % 1st Diagonal stenosis: 80% proximal % LAD stenosis: 40% mid % RCA stenosis: 99% proixmal, 80% distal. [facility] (12/19/2003) Rangel Slaughter MD paf, stable will [...] BP: 139/84 (01/17/2009) Rangel Slaughter MD paf, wno work up Rangel Perez paf, won work [...] race mitral regurgitation. T race tricuspid regurgitation. [facility] (12/01/2006) N uclear Stress Findings: The test is considered to be negative by ECG criteria. [facility] (02/20/2004) C ardiac Cath: EF - 60% M oderate hypokinesis of the anterolateral segment. N ormal left heart hemodynamics. % Left Main stenosis: 50% left main. % CX stenosis: 50% proximal. % 1st Diagonal stenosis: 80% proximal % LAD stenosis: 40% mid % RCA stenosis: 99% proixmal, 80% distal. [facility] (12/19/2003) Rangel Slaughter MD paf, won work [...] considered to be negative by ECG criteria. [facility] (02/20/2004) C ardiac Cath: EF - 60% M oderate hypokinesis of the anterolateral segment. N ormal left heart hemodynamics. % Left Main stenosis: 50% left main. % CX stenosis: 50% proximal. % 1st Diagonal stenosis: 80% proximal % LAD stenosis: 40% mid % RCA stenosis: 99% proixmal, 80% distal. [facility] (12/19/2003) Rangel Slaughter MD won grossman work up: H is updated medication list for this problem includes: Aspirin 325 Mg Tabs (Aspirin) ..... One tab daily Tenormin 25 Mg Tabs (Atenolol) ..... One tab. daily to prevent atrial fib. BP today: 158/80 Prior BP: 127/78 (12/14/2008) N uclear Stress Findings: The test is considered to be negative by ECG criteria. [facility] (02/20/2004) E chocardiogram: EF - 60%. M Ild distal septal hypokinesis of the left ventricle. M Ild diastolic dysfunction. T hickened mitral valve. T hickened aortic valve. T race mitral regurgitation. T race tricuspid regurgitation. [facility] (12/01/2006) C ardiac Cath: EF - 60% M oderate hypokinesis of the anterolateral segment. N ormal left heart hemodynamics. % Left Main stenosis: 50% left main. % CX stenosis: 50% proximal. % 1st Diagonal stenosis: 80% proximal % LAD stenosis: 40% mid % RCA stenosis: 99% proixmal, 80% distal. [facility] (12/19/2003) Orders: H olter Monitor 24 Hr (CPT-[id number]) Rangel Slaughter MD won grossman work up: [...] considered to be negative by ECG criteria. [facility] (02/20/2004) C ardiac Cath: EF - 60% M oderate hypokinesis of the anterolateral segment. N ormal left heart hemodynamics. % Left Main stenosis: 50% left main. % CX stenosis: 50% proximal. % 1st Diagonal stenosis: 80% proximal % LAD stenosis: 40% mid % RCA stenosis: 99% proixmal, 80% distal. [facility] (12/19/2003) Rangel Slaughter MD paf, won work [...] race mitral regurgitation. T race tricuspid regurgitation. [facility] (12/01/2006) N uclear Stress Findings: The test is considered to be negative by ECG criteria. [facility] (02/20/2004) C ardiac Cath: EF - 60% M oderate hypokinesis of the anterolateral segment. N ormal left heart hemodynamics. % Left Main stenosis: 50% left main. % CX stenosis: 50% proximal. % 1st Diagonal stenosis: 80% proximal % LAD stenosis: 40% mid % RCA stenosis: 99% proixmal, 80% distal. [facility] (12/19/2003) Rangel Slaughter MD stable cad: H [...] ..... One tab. daily Orders: Complete Echo (CPT-[id number]) BP today: 127/78 Prior BP: / () N uclear Stress Findings: The test is considered to be negative by ECG criteria. [facility] (02/20/2004) C ardiac Cath: EF - 60% M oderate hypokinesis of the anterolateral segment. N ormal left heart hemodynamics. % Left Main stenosis: 50% left main. % CX stenosis: 50% proximal. % 1st Diagonal stenosis: 80% proximal % LAD stenosis: 40% mid % RCA stenosis: 99% proixmal, 80% distal. [facility] (12/19/2003) Rangel Slaughter MD stable cad: H is updated medication list for this problem includes: Niaspan 1000 Mg Tbcr (Niacin (antihyperlipidemic)) ..... Two tabs. at bedtime Altace 10 Mg Caps (Ramipril) ..... One tab. daily Caduet 5-10 Mg Tabs (Amlodipine-atorvastatin) ..... One tab. daily Aspirin 81 Mg Tabs (Aspirin) ..... One tab. daily Orders: S tress Test - Nuclear (96315) BP today: 127/78 Prior BP: / () N uclear Stress Findings: The test is considered to be negative by ECG criteria. [facility] (02/20/2004) C ardiac Cath: EF - 60% M oderate hypokinesis of the anterolateral segment. N ormal left heart hemodynamics. % Left Main stenosis: 50% left main. % CX stenosis: 50% proximal. % 1st Diagonal stenosis: 80% proximal % LAD stenosis: 40% mid % RCA stenosis: 99% proixmal, 80% distal. [facility] (12/19/2003) Rangel Slaughter MD stable cad Rangel Slaughter MD stable cad: H is updated medication list for this problem includes: Altace 10 Mg Caps (Ramipril) ..... One tab. daily Caduet 5-10 Mg Tabs (Amlodipine-atorvastatin) ..... One tab. daily Aspirin 81 Mg Tabs (Aspirin) ..... One tab. daily Orders: E KG (CPT-[id number]) BP today: 127/78 Rangel Slaughter MD Date Name MAGNESIUM PROBNP, N TERMINAL BASIC METABOLIC PANE L W/EGFR MAGNESIUM CBC (H/H, RBC, INDIC ES, WBC, [...] TOTAL IRON BINDING CAPACITY FERRITIN DLCO - 52602 FRC - 11470 FVC - 73882 MAGNESIUM Cardiac Cath - L/R- SLHV PROTHROMBIN [...] Duplex Bilat eral Complete Echo DLCO - 28128 FRC - 46794 FVC - 51990 X-Ray, Chest, PA & L ateral DLCO - 34122 FRC - 32681 FVC - 53334 THYROID PANEL WITH T SH, 3RD GENERATION COMPREHENSIVE METABO LIC PANEL W/EGFR DLCO - 81725 FRC - 08961 FVC - 04533 Sleep Study Home X-Ray, Chest, PA & [...] Procedure Name Provider Procedure Notes S tatus Complex e/m visit ad d on Aaron Wooten MD completed Schedule Followup Rosario guillermo MD [address] FAY completed EKG Rosario craven MD completed EKG Rangel Slaughter MD complete d EKG Rangel Slaughter MD complete d EKG Rangel Slaughter MD complete d ICM Interrogation, Remote (Prof) Rangel Slaughter MD INTERROGATION EVAL REMOTE </30 D CV MNTR SYS completed Pacemaker Interrogation, Remote (Tech) Rangel Slaughter MD INTERROGATION REMOTE </90 D COMPENSATOR WORKER REVIEW completed Pacemaker Interrogation, Remote (Prof) Rangel Serota MD INTERROGATION EVAL REMOTE </90 D 1/2/SQL SERVER ARCHITECT LEAD P completed ICM Interrogation, Remote (Prof) [...] (Tech) Rangel Serota INTERROGATION REMOTE </90 D COMPENSATOR WORKER REVIEW completed Pacemaker Interrogation, Remote (Prof) Rangel Slaughter MD INTERROGATION EVAL REMOTE </90 D 1/2/SQL SERVER ARCHITECT LEAD P completed ICM Interrogation, Remote (Prof) [...] (Tech) Rangel Serota INTERROGATION REMOTE </90 D COMPENSATOR WORKER REVIEW completed Pacemaker Interrogation, Remote (Prof) Rangel Serota INTERROGATION EVAL REMOTE </90 D 1/2/SQL SERVER ARCHITECT LEAD P completed ICM Interrogation, Remote (Prof) [...] Rangel Slaughter MD INTERROGATION REMOTE </90 D COMPENSATOR WORKER REVIEW completed Pacemaker Interrogation, Remote (Prof) Rangel Slaughter MD INTERROGATION EVAL REMOTE </90 D 1/2/SQL SERVER ARCHITECT LEAD P completed FVC / MVV - 98341 Rosario guillermo MD completed FRC - 27741 Rosario craven MD completed SpO2 w/o 6min walk/titration Rosario Fay MD completed DLCO - 69213 Rosario craven MD completed EKG Rosario craven [...] Rangel Slaughter MD INTERROGATION REMOTE </90 D COMPENSATOR WORKER REVIEW completed Pacemaker Interrogation, Remote (Prof) Rangel Slaughter MD INTERROGATION EVAL REMOTE </90 D 1/2/SQL SERVER ARCHITECT LEAD P completed Regadenoson, 4 units Rangel [...] Rangel Slaughter MD INTERROGATION REMOTE </90 D COMPENSATOR WORKER REVIEW completed Pacemaker Interrogation, Remote (Prof) Rangel Slaughter MD INTERROGATION EVAL REMOTE </90 D 1/2/SQL SERVER ARCHITECT LEAD P completed ICM Interrogation, Remote (Prof) [...] Rangel Slaughter MD INTERROGATION REMOTE </90 D COMPENSATOR WORKER REVIEW completed Pacemaker Interrogation, Remote (Prof) Rangel Slaughter MD INTERROGATION EVAL REMOTE </90 D 1/2/SQL SERVER ARCHITECT LEAD P completed ICM Interrogation, Remote (Prof) [...] Rangel Slaughter MD INTERROGATION REMOTE </90 D COMPENSATOR WORKER REVIEW completed Pacemaker Interrogation, Remote (Prof) Rangel Slaughter MD INTERROGATION EVAL REMOTE </90 D 1/2/SQL SERVER ARCHITECT LEAD P completed ICM Interrogation, Remote (Prof) [...] Rangel Slaughter MD INTERROGATION REMOTE </90 D COMPENSATOR WORKER REVIEW completed Pacemaker Interrogation, Remote (Prof) Rangel Slaughter MD INTERROGATION EVAL REMOTE </90 D 1/2/SQL SERVER ARCHITECT LEAD P completed SNOMED-CT: 778064470334168 Current Medications Documented Rangel Slaughter MD completed [...] Rangel Slaughter MD INTERROGATION REMOTE </90 D COMPENSATOR WORKER REVIEW completed Pacemaker Interrogation, Remote (Prof) Rangel Slaughter MD INTERROGATION EVAL REMOTE </90 D 1/2/SQL SERVER ARCHITECT LEAD P completed ICM Interrogation, Remote (Prof) [...] REMOTE </30 D TECH REVIEW completed SNOMED-CT: 00122431 Physical Exam, Performed: Pulse Exam of Foot Rosario Fay MD completed EKG Rosario craven MD completed SNOMED-CT: 517067959102548 Current Medications Documented Rosario Fay MD completed FVC - 93280 Rosario craven MD completed FRC - 95300 Rosario craven MD completed DLCO - 54098 Rosario craven MD completed ICM Interrogation, Remote (Prof) Rangel Slaughter MD INTERROGATION EVAL REMOTE </30 D CV MNTR SYS completed Pacemaker Interrogation, Remote (Tech) Rangel Slaughter MD INTERROGATION REMOTE </90 D COMPENSATOR WORKER REVIEW completed Pacemaker Interrogation, Remote (Prof) Rangel Slaughter MD INTERROGATION EVAL REMOTE </90 D 1/2/SQL SERVER ARCHITECT LEAD P completed ICM Interrogation, Remote (Prof) [...] Rangel Slaughter MD INTERROGATION REMOTE </90 D COMPENSATOR WORKER REVIEW completed Pacemaker Interrogation, Remote (Prof) Rangel Slaughter MD INTERROGATION EVAL REMOTE </90 D 1/2/SQL SERVER ARCHITECT LEAD P completed ICM Interrogation, Remote (Prof) Rangel Slaughter MD INTERROGATION EVAL REMOTE </30 D CV MNTR SYS completed ICM Interrogation, Remote (Tech) Rangel Slaughter MD INTERROGATION EVAL REMOTE </30 D TECH REVIEW completed EKG Roasrio craven MD completed EKG Rosario craven MD completed EKG Rosario craven MD completed EKG Rosario craven MD STARTING SOTALOL - EKG ON Thursday, Thursday and ThursdayDecember 30, , completed Schedule Followup Rosario guillermo MD in 6 months completed SNOMED-CT: 601652208 Smoking Cessation Counseling Rosario Fay MD completed SNOMED-CT: 93222808 Physical Exam, Performed: Pulse Exam of Foot Rosario Fay MD completed EKG Rosario craven MD completed SNOMED-CT: 982212249532199 Current Medications Documented Rosario Fay MD completed ICM Interrogation, Remote (Prof) Rangel Slaughter MD INTERROGATION EVAL REMOTE </30 D CV MNTR SYS completed ICM Interrogation, Remote (Tech) Rangel Slaughter MD INTERROGATION EVAL REMOTE </30 D TECH REVIEW completed SNOMED-CT: 05660608 Physical Exam, Performed: Pulse Exam of Foot Rangel Slaughter MD completed SNOMED-CT: 761454692861634 Current Medications Documented Rangel Slaughter MD completed ICM Interrogation, Remote (Prof) Rangel Slaughter MD INTERROGATION EVAL REMOTE </30 D CV MNTR SYS completed Pacemaker Interrogation, Remote (Tech) Rangel Slaughter MD INTERROGATION REMOTE </90 D COMPENSATOR WORKER REVIEW completed Pacemaker Interrogation, Remote (Prof) Rangel Slaughter MD INTERROGATION EVAL REMOTE </90 D 1/2/SQL SERVER ARCHITECT LEAD P completed ICM Interrogation, Remote (Prof) Rangel Slaughter MD INTERROGATION EVAL REMOTE </30 D CV MNTR SYS completed ICM Interrogation, Remote (Tech) Rangel Slaughter MD INTERROGATION EVAL REMOTE </30 D TECH REVIEW completed FVC - 71751 Rosario craven MD completed FRC - 42308 Rosario craven MD completed DLCO - 05459 Rosario craven MD completed Schedule Followup Rosario guillermo MD 3 months completed SNOMED-CT: 811767745 Smoking Cessation Counseling Rosario Fay MD completed SNOMED-CT: 81344917 Physical Exam, Performed: Pulse Exam of Foot Rosario Fay MD completed EKG Rosario craven MD completed SNOMED-CT: 411818184563412 Current Medications Documented Rosario Fay MD completed ICM Interrogation, Remote (Prof) Rangel Slaughter MD INTERROGATION EVAL REMOTE </30 D CV MNTR SYS completed ICM Interrogation, Remote (Tech) Rangel Slaughter MD INTERROGATION EVAL REMOTE </30 D TECH REVIEW completed Pacemaker Interrogation, Remote (Tech) Rangel Slaughter MD INTERROGATION REMOTE </90 D COMPENSATOR WORKER REVIEW completed Pacemaker Interrogation, Remote (Prof) Rangel Slaughter MD INTERROGATION EVAL REMOTE </90 D 1/2/SQL SERVER ARCHITECT LEAD P completed Schedule Followup Rosario guillermo MD 3 months completed SNOMED-CT: 235640212 Smoking Cessation Counseling Rosario Fay MD completed SNOMED-CT: 12547885 Physical Exam, Performed: Pulse Exam of Foot Rosario Fay MD completed EKG Rosario craven MD completed SNOMED-CT: 311712092113416 Current Medications Documented Rosario Fay MD completed ICM Interrogation, Remote (Prof) Rangel Slaughter MD INTERROGATION EVAL REMOTE </30 D CV MNTR SYS completed ICM Interrogation, Remote (Tech) Rangel Slaughter MD INTERROGATION EVAL REMOTE </30 D TECH REVIEW completed Schedule Followup Rosario guillermo MD 3/4 weeks completed SNOMED-CT: 30716339 Physical Exam, Performed: Pulse Exam of Foot ulius Sumeet HUNTER completed SNOMED-CT: 095191021 Smoking Cessation Counseling Rosario Fay MD completed EKG Rosario craven MD completed SNOMED-CT: 297569211022686 Current Medications Documented Rosario Fay MD completed SNOMED-CT: 569794492339556 Current Medications Documented Rangel Slaughter MD completed SNOMED-CT: 948301598 Smoking Cessation Counseling Rosario Fay MD completed SNOMED-CT: 98201360 Physical Exam, Performed: Pulse Exam of Foot Saulius Kalvaitis MD completed Schedule Followup Rosario guillermo MD fu in [place] next thursday completed EKG Rosario craven MD completed SNOMED-CT: 526375152721974 Current Medications Documented Rosario Fay MD completed ICM Interrogation, Remote (Prof) Rangel Slaughter MD INTERROGATION EVAL REMOTE </30 D CV MNTR SYS completed ICM Interrogation, Remote (Tech) Rangel Slaughter MD INTERROGATION EVAL REMOTE </30 D TECH REVIEW completed FVC - 67786 Rangel Slaughter MD complet ed FRC - 09557 Rangel Slaughter MD complet ed DLCO - 20693 Rangel Slaughter MD comple tanja ICM Interrogation, Remote (Prof) Rangel Slaughter MD INTERROGATION EVAL REMOTE </30 D CV MNTR SYS completed Pacemaker Interrogation, Remote (Tech) Rangel Slaughter MD INTERROGATION REMOTE </90 D COMPENSATOR WORKER REVIEW completed Pacemaker Interrogation, Remote (Prof) Rangel Slaughter MD INTERROGATION EVAL REMOTE </90 D 1/2/SQL SERVER ARCHITECT LEAD P completed EKG Rosario craven MD [...] (Tech) Rangel Serota INTERROGATION REMOTE </90 D COMPENSATOR WORKER REVIEW completed Pacemaker Interrogation, Remote (Prof) Rangel Serota INTERROGATION EVAL REMOTE </90 D 1/2/SQL SERVER ARCHITECT LEAD P completed ICM Interrogation, Remote (Prof) [...] (Tech) Rangel Serota INTERROGATION REMOTE </90 D COMPENSATOR WORKER REVIEW completed Pacemaker Interrogation, Remote (Prof) Rangel Serota INTERROGATION EVAL REMOTE </90 D 1/2/SQL SERVER ARCHITECT LEAD P completed ICM Interrogation, Remote (Prof) [...] (Tech) Rangel Serota INTERROGATION REMOTE </90 D COMPENSATOR WORKER REVIEW completed Pacemaker Interrogation, Remote (Prof) Rangel Serota INTERROGATION EVAL REMOTE </90 D 1/2/SQL SERVER ARCHITECT LEAD P completed ICM Interrogation, Remote (Prof) Rangel Serotmac HUNTER INTERROGATION EVAL REMOTE </30 D CV MNTR SYS completed ICM Interrogation, Remote (Tech) Rangel Serota INTERROGATION EVAL REMOTE </30 D TECH REVIEW completed EKG Saulius Tarik craven MD completed ICM Interrogation, Remote (Prof) Rangel Serotmac HUNTER INTERROGATION EVAL REMOTE </30 D CV MNTR SYS completed Pacemaker Interrogation, Remote (Tech) Rangel Serota INTERROGATION REMOTE </90 D COMPENSATOR WORKER REVIEW completed Pacemaker Interrogation, Remote (Prof) Rangel Serota INTERROGATION EVAL REMOTE </90 D 1/2/SQL SERVER ARCHITECT LEAD P completed ICM Interrogation, Remote (Prof) Rangel Serota INTERROGATION EVAL REMOTE </30 D CV MNTR SYS completed Pacemaker Interrogation, Remote (Tech) Rangel Serota INTERROGATION REMOTE </90 D COMPENSATOR WORKER REVIEW completed Pacemaker Interrogation, Remote (Prof) Rangel Serota INTERROGATION EVAL REMOTE </90 D 1/2/SQL SERVER ARCHITECT LEAD P completed ICM Interrogation, Remote (Prof) [...] (Tech) Rangel Serota INTERROGATION REMOTE </90 D COMPENSATOR WORKER REVIEW completed Pacemaker Interrogation, Remote (Prof) Rangel Serota INTERROGATION EVAL REMOTE </90 D 1/2/SQL SERVER ARCHITECT LEAD P completed ICM Interrogation, Remote (Prof) [...] Rangel Slaughter MD INTERROGATION REMOTE </90 D COMPENSATOR WORKER REVIEW completed AICD Interrogation, Remote (Prof) Rangel [...] Fay MD PROGRM EVAL IMPLANTABLE IN PRSN SQL SERVER ARCHITECT LD CARD/DFB completed TI, OPTIVOL, ICM Interrogation [...] used Rosario Fay MD completed Schedule Followup ulius Kris guillermo MD in 1 week completed EKG [...]
--- OUTSIDE RECORDS SUMMARY | 2024-11-28 17:38 | XMS_ITS | Referral Summary ---
Author Organization [facility] [address] Address [address] [place] [address] Care Team Providers Care Senior Estimator Name Role Phone Ayo Jackson MD Primary Care Provide r Garrison Mary MD Unavailable Allergies Active Allergy Reactions Criticality Noted Date [...] monitoring Assessment & Plan (07/15/2021 3:48 PM ANODISER): Parathyroid hormone level, call with results, consider referral to Head and Neck surgery at [facility] Social History Tobacco Use Types Packs/Day Years [...] on file Legal Sex Male 6:41 PM ANODISER Gender Identity Not on file Sexual Orientation Not on file Last Filed Vital Signs Vital Sign Reading Time Taken Comments Blood Pressure 124/76 07/08/2022 7:43 AM ANODISER Pulse 79 07/08/2022 7:43 AM ANODISER Temperature 36.2 C (97.2 F) 07/08/2022 7:43 AM ANODISER Respiratory Rate 16 07/08/2022 7:43 AM ANODISER Oxygen Saturation 94% 07/08/2022 7:43 AM ANODISER Inhaled Oxygen Concentration - - Weight 82.1 kg (181 lb) 07/07/2022 7:13 AM ANODISER Height 185.4 cm (6' 1 ) 07/07/2022 7:13 AM ANODISER Body Mass Index 23.88 07/07/2022 7:13 AM ANODISER Plan of Treatment Not on file Medical Devices Implanted Type Area Tier And Detonator Device Identifier Shelf Expiration Date Model / Serial / Lot [facility] [employer] Sls-Clip [place] Triangular Wire Leslee Groove Small [employer] Clip Latex Free [id number] - [id number] Implanted:Qty: 3 on 07/07/2022 by Gavin Sommer MD at [facility] [employer] [id number] / / Insurance MEDICARE [facility] MEDICARE [facility] MEDICARE [facility] Advance Directives For more information, please contact: [phone] * Full Code (Latest Code Status on File) Date Activated Date Inactivated Comments 07/07/2022 12:53 PM 07/08/2022 3:25 PM Care Teams Senior Estimator Relationship Specialty Start Date End Date Ayo Jackson MD [address] [address] PCP - General Internal Medicine 05/08/21 Garrison Mary MD [address] [address] Consulting Physician Otolaryngology 11/05/21
--- OUTSIDE RECORDS SUMMARY | 2024-11-28 17:38 | XMS_ITS | Clinical Summary ---
Author Organization [facility] [employer] Address [address] [place] [address] Care Team Providers Care Reel Assembler Name Role Phone Gege Jackson MD Primary Care Provider Source Comments [facility] [employer],non-owned Affiliates and Associated Physician Practices is amultiple site organization consisting of ambulatory clinics and hospital sitesin [place], [place], [place] and [place]. This disclosure is being madepursuant to the Care Everywhere program and may not contain all information available regarding this patient. Last updated 18.[facility] [employer] Allergies Active Allergy Reactions Criticality Noted Date Comments Amiodarone Psychiatric,Other,Un know n High 11/23/2012 Change Mental status Reaction: CONFUSION, Reaction: CONFUSION, Sotalol Hcl Other 11/23/2012 Medications * Be aware that medications may not be up to date on this document. Alwaysverify current medications with the patient. Nutritional Supplements (Ensure Plus High Protein) LIQD Take 1 container by mouth 2 times daily 5 Active Eliquis 5 MG tablet Take 1 (one) tablet by mouth 2 times daily Active Cholecalciferol 50 MCG (2000 UT) Take 1 (one) tablet by mouth once daily 4 Active cyanocobalamin (Vitamin B-12) 1000 MCG tablet Vitamin B-12 1,000 mcg tablet Active ferrous sulfate 325 (65 FE) MG tablet Take 1 (one) tablet by mouth once daily 5 Active blood glucose (Accu-Chek SmartView) test strip Accu-Chek SmartView Test Strips test blood sugar DAILY Active pantoprazole EC (Protonix) 40 MG tablet Take 1 tablet every day by oral route. Active oxyCODONE, immediate release, (Roxicodone) 5 MG tabletIndicatio ns:Acute pain Take 1 (one) tablet by mouth every 4 hours as needed 5 Active oxyCODONE, immediate release, (Roxicodone) 10 MG tabletIndicatio ns:Acute pain Take 1 (one) tablet by mouth every 4 hours as needed 5 Active acetaminophen (Tylenol) 500 MG tablet Take 2 (two) tablets by mouth every 8 hours Maximum allowable Acetaminophen amount = 4 Grams (4000 mg) / 24 hours. 5 Active aspirin (Aspirin) 81 MG chew tablet Take 1 (one) tablet by mouth once daily 5 Active gabapentin (Neurontin) 300 MG capsule Take 1 (one) capsule by mouth 3 times daily 5 Active atorvastatin (Lipitor) 40 MG tablet Take 1 (one) tablet by mouth at bedtime Active lidocaine (Lidoderm) 5 % patch Apply 2 (two) patches to skin every 24 hours Apply patch to most painful area and remove after 12 hours. May reapply a new patch 12 hours later. 5 Active polyethylene glycol 3350 (Miralax) 17 g packet Take 17 (seventeen) g by mouth once daily Active senna (Senokot Extra Strength) 17.2 MG Take 17.2 mg by mouth once daily 5 Active Active Problems Problem Noted Date Diagnosed Date Severe malnutrition 08/29/2024 Leukopenia, unspecified type 08/26/2024 Ecchymosis 08/26/2024 Anemia, unspecified type 08/26/2024 Fall, initial encounter 08/26/2024 Hemopneumothorax on left 08/26/2024 Fracture of multiple ribs of left side 5 Acute pain 08/26/2024 Contusion of left lung 08/26/2024 Encounters Date Type Department Care Team Description 11/07/2024 Telephone [facility] - General Surgery [address] [place] [address] Kirsten Nguyễn, RN Coordination Of Care 11/03/2024 1:12 PM CDT - 11/03/2024 11:59 PM CDT Hospital Encounter [facility] DIAGNOSTIC RAD OP [address] [place] [address] Krys Hoffman, PROJECT PRODUCT MANAGER-TRAINING AND DEVELOPMENT ASSISTANT Discharge Disposition: Home or Self Care 11/03/2024 12:00 PM CDT Office Visit [facility] - General Surgery [address] [place] [address] Krys Hoffman, PROJECT PRODUCT MANAGER-TRAINING AND DEVELOPMENT ASSISTANT Closed fracture of multiple ribs of left side with routine healing, subsequent encounter (Primary Dx) 11/03/2024 Travel 09/26/2024 Travel 08/26/2024 1:13 AM RECRUITER ACCOUNT MANAGER - 09/05/2024 2:50 PM RECRUITER ACCOUNT MANAGER Hospital Encounter [facility] 5S ACUTE [address] [place] [address] Clovis Wilkinson MD Naughton, Daniel J, MD Trauma Discharge Disposition: Rehab:Inpatient from Last 3 Months Immunizations Immunization Administration Dates Next Due TDAP (7yrs+) 08/26/2024 Family History Relation Name Status Comments Father Mother Social History Tobacco Use Types Packs/Day Years Used Date Smoking Tobacco: Unknown Tobacco Cessation:Counseling Given: No AUDIT-C Answer Date Recorded Q1: How often [...] and heating? Not hard at all 08/28/2024 [facility] [place] [facility] Occup[facility] ional [facility] - Occupational Stress [...] any time in the past 12 m [facility], were you homeless or living in a usp (including now)? No 08/28/2024 Sex and Gender Information Value Date Recorded Sex Assigned at Not on file Legal Sex Male 5:47 PM RECRUITER ACCOUNT MANAGER Gender Identity Not on file Sexual Orientation Not on file Last Filed Vital Signs Vital Sign Reading Time Taken Comments Blood Pressure 154/70 11/03/2024 12:36 PM CDT Pulse 54 11/03/2024 12:36 PM CDT Temperature 37 C (98.6 F) 09/05/2024 11:14 AM RECRUITER ACCOUNT MANAGER Respiratory Rate 20 09/05/2024 11:14 AM RECRUITER ACCOUNT MANAGER Oxygen Saturation 92% 11/03/2024 12:36 PM CDT Inhaled Oxygen Concentration - - Weight 78.5 kg (173 lb) 11/03/2024 12:36 PM CDT Height 182.9 cm (6') 11/03/2024 12:36 PM CDT Body Mass Index 23.46 11/03/2024 12:36 PM CDT Plan of Treatment Health Maintenance [...] Priority Date/Time Associated Diagnosis Comments XR CHEST 2VW INSPIR EXPIRATION Routine 11/03/2024 1:18 PM CDT Closed fracture of multiple ribs of left side, initial encounter Contusion of left lung, initial encounter XR CHEST 1VW PORTABLE Routine 09/02/2024 3:00 PM RECRUITER ACCOUNT MANAGER Hemopneumothorax on left XR CHEST 1VW PORTABLE Routine 09/02/2024 4:32 AM RECRUITER ACCOUNT MANAGER Hemopneumothorax on left Contusion of left lung, initial encounter XR CHEST 1VW PORTABLE Routine 09/01/2024 5:16 AM RECRUITER ACCOUNT MANAGER Hemopneumothorax on left RENAL FUNCTION PANEL AM Draw 09/01/2024 3:06 AM RECRUITER ACCOUNT MANAGER MAGNESIUM BLOOD STAT 08/31/2024 6:47 AM RECRUITER ACCOUNT MANAGER RENAL FUNCTION PANEL STAT 08/31/2024 6:47 AM RECRUITER ACCOUNT MANAGER CBC W/O DIFFERENTIAL STAT 08/31/2024 6:47 AM RECRUITER ACCOUNT MANAGER XR CHEST 1VW PORTABLE STAT 08/31/2024 5:05 AM RECRUITER ACCOUNT MANAGER Hemopneumothorax on left XR CHEST 1VW PORTABLE Routine 08/30/2024 4:42 AM RECRUITER ACCOUNT MANAGER Hemopneumothorax on left from Last 3 Months Results * XR Chest 2Vw Inspir Expiration (11/03/2024 1:18 PM CDT) Anatomical Region Laterality Modality Chest Digital Radiogra phy 11/04/2024 10:5 4 AM CDT Narrative 11/04/2024 11:01 AM CDT PROCEDURE: XR CHEST 2VW INSPIR EXPIRATION DATE/TIME OF EXAM: 11/03/2024 1:18 PM CLINICAL INFORMATION: None relevant/not provided if blank. Indication: S22.42XA: Closed fracture of multiple ribs of left side, initial encounter S27.321A: Contusion of left lung, initial encounter Additional History: Evaluate for pneumothorax COMPARISON: Portable chest 09/02/2024. FINDINGS/IMPRESSION: Sternal wires are aligned and intact. Mediastinal clips are again seen. A left chest wall cardiac device has leads extending to the right atrium, right ventricle, and coronary sinus. There is moderate left pleural effusion and smaller right pleural effusion, with adjacent basilar pulmonary opacities. These findings are new/increased since 09/02/2024. The upper lung davidson are clear. No pneumothorax. The heart is obscured. Upper mediastinal contours are normal. > Interpreting Provider: Stacia Montero MD on 11/04/2024 11:01 AM Procedure Note Stacia Montero MD - 11/04/2024 PROCEDURE: XR CHEST 2VW INSPIR EXPIRATION DATE/TIME OF EXAM: 11/03/2024 1:18 PM CLINICAL INFORMATION: None relevant/not provided if blank. Indication: S22.42XA: Closed fracture of multiple ribs of left side, initial encounter S27.321A: Contusion of left lung, initial encounter Additional History: Evaluate for pneumothorax COMPARISON: Portable chest 09/02/2024. FINDINGS/IMPRESSION: Sternal wires are aligned and intact. Mediastinal clips are again seen. A left chest wall cardiac device has leads extending to the rightatrium, right ventricle, and coronary sinus. There is moderate left pleural effusion and smaller right pleuraleffusion, with adjacent basilar pulmonary opacities. These findings arenew/increased since 09/02/2024. The upper lung davidson are clear. No pneumothorax. The heart is obscured. Upper mediastinal contours are normal. > Interpreting Provider: Stacia Montero MD on 11/04/2024 11:01 AM Krys Hoffman PROJECT PRODUCT MANAGER-TRAINING AND DEVELOPMENT ASSISTANT DIAGNOSTIC IMAGING ORDER DARWIN Final Result * XR Chest 1Vw Portable (09/02/2024 3:00 PM RECRUITER ACCOUNT MANAGER) Only the most recent of5 resultswithin the time period is included. Anatomical Region Laterality Modality Chest Digital Radiogra phy 09/03/2024 10:0 6 AM RECRUITER ACCOUNT MANAGER Narrative 09/04/2024 6:36 AM RECRUITER ACCOUNT MANAGER PROCEDURE: XR CHEST 1VW PORTABLE, DATE/TIME OF [...] stable. Report dictated by Jaya Hernandez MD, (residential sales executive). IBindu MD have personally reviewed and interpreted this [...] isstable. Report dictated by Jaya Hernandez MD, (residential sales executive). I, Bindu Wright MD have personally reviewed and interpreted this examination/study. > Interpreting Provider: iBndu Wright MD on 09/04/2024 6:36 AM Morena Cartagena Normamagan PROJECT PRODUCT MANAGER-SEARCH ADVERTISING STRATEGIST DIAGNOSTIC IMAGING ORDERA BLES Final Result * (ABNORMAL) RENAL FUNCTION PANEL (09/01/2024 3:06 AM [facility]) Only the most recent of2 resultswithin the time period is included. BUN 20 7 - 26 mg/dL 09/01/2024 4:03 AM [facility] Creatinine 0.66(L) 0.71 - 1.16 mg/dL 09/01/2024 4:03 AM [facility] Sodium 135(L) 136 - 145 mmol/L 09/01/2024 4:03 AM [facility] Potassium 4.1 3.5 - 4.5 mmol/L 09/01/2024 4:03 AM [facility] Chloride 104 98 - 107 mmol/L 09/01/2024 4:03 AM [facility] CO2 26 22 - 29 mmol/L 09/01/2024 4:03 AM [facility] Glucose 131(H) 70 - 99 mg/dL 09/01/2024 4:03 AM [facility] Albumin 1.7(L) 3.4 - 5.0 g/dL 09/01/2024 4:03 AM [facility] Calcium 7.7(L) 8.4 - 10.2 mg/dL 09/01/2024 4:03 AM [facility] Phosphorus 3.2 2.8 - 5.1 mg/dL 09/01/2024 4:03 AM [facility] Anion Gap 5(L) 6 - 16 09/01/2024 4:03 AM [facility] BUN/Creatinine Ratio 30(H) 7 - 23 09/01/2024 4:03 AM [facility] Osmolality Calculated 284 275 - 295 mOsm/kg 09/01/2024 4:03 AM [facility] eGFR by CKD-EPI >90 >=90 mL/min/1.7 3 m2 09/01/2024 4:03 AM [facility] Blood BLOOD SPECIMEN / Unknown Lab Venipuncture / Unknown 09/01/2024 3:06 AM RECRUITER ACCOUNT MANAGER 09/01/2024 3:32 AM [facility] us Silvia Arevalo PROJECT PRODUCT MANAGER-SEARCH ADVERTISING STRATEGIST LAB - CHEMISTRY ORDERABLE S Final Result Performing Organization Address City/State/[facility] Co de Phone Number [address] [address] [phone] * (ABNORMAL) CBC W/O DIFFERENTIAL (08/31/2024 6:47 AM RECRUITER ACCOUNT MANAGER) WBC 5.8 4.0 - 10.7 x10E9/L 08/31/2024 7:28 AM [facility] RBC Count 3.64(L) 4.30 - 5.80 x10E12/L 08/31/2024 7:28 AM [facility] Hemoglobin 9.2(L) 13.3 - 17.5 g/dL 08/31/2024 7:28 AM [facility] Hematocrit 29.7(L) 38.7 - 51.1 % 08/31/2024 7:28 AM [facility] MCV 81.6 80.0 - 98.0 fL 08/31/2024 7:28 AM [facility] MCH 25.3(L) 26.7 - 33.6 pg 08/31/2024 7:28 AM [facility] MCHC 31.0(L) 31.7 - 36.3 g/dL 08/31/2024 7:28 AM [facility] RDW-CV 16.0(H) 11.3 - 14.8 % 08/31/2024 7:28 AM [facility] Platelet Count 252 150 - 420 x10E9/L 08/31/2024 7:28 AM [facility] MPV 9.8 7.8 - 11.4 fL 08/31/2024 7:28 AM [facility] Blood BLOOD SPECIMEN / Unknown Lab Venipuncture / Unknown 08/31/2024 6:47 AM RECRUITER ACCOUNT MANAGER 08/31/2024 7:12 AM RECRUITER ACCOUNT MANAGER us Silvia Arevalo APRN-SEARCH ADVERTISING STRATEGIST LAB - HEMATOLOGY ORDERABL ES Final Result [address] [address], [place] [phone] * MAGNESIUM BLOOD (08/31/2024 6:47 AM RECRUITER ACCOUNT MANAGER) Magnesium 1.9 1.6 - 2.6 mg/dL 08/31/2024 7:43 AM [facility] Blood BLOOD SPECIMEN / Unknown Lab Venipuncture / Unknown 08/31/2024 6:47 AM RECRUITER ACCOUNT MANAGER 08/31/2024 7:30 AM RECRUITER ACCOUNT MANAGER us Silvia Arevalo APRN-SEARCH ADVERTISING STRATEGIST LAB - CHEMISTRY ORDERABLE S Final Result [address] [address], [place] [phone] from Last 3 Months Insurance MEDICARE MEDICARE [facility] Advance Directives * Full Code (Latest Code Status on File) Date Activated Date Inactivated Comments 08/26/2024 5:35 AM 09/05/2024 4:25 PM Care Teams Reel Assembler Relationship Specialty Start Date End Date Gege Jackson MD [address] [address] PCP - General Internal Medicine 08/26/24
--- OUTSIDE RECORDS SUMMARY | 2024-11-28 17:38 | XMS_ITS | Patient Health Record ---
Author Organization [facility] [employer] [facility] Address [address] [place] [address] Care Team Providers Care Therapeutic Recreation Specialist Name Role Phone Dionisio Mcclendon DC Unavailable Unavailable Reason For Referral No Information Plan Of Treatment No Information Insurance Providers Payer Name Payer Address Payer Phone Subscriber Number Group Number Insured Name Patient Relationship to Insured Coverage Start Date Coverage End Date Medicare of [place] [employer] [address] [address] [place] [address] [id number] Jose Manuel Floyd Self - patient is the insured 6
--- OUTSIDE RECORDS SUMMARY | 2024-11-28 17:38 | XMS_ITS | Encounter Summary ---
Author Organization [facility] Address [address] [place] [address] Care Team Providers Care Urology Teacher Name Role Phone Gege Jackson MD Primary Care Provider Encounter Details Date Type Department Care Team (Late st Contact Info) Description 07/19/2020 Lab Requisition [facility] [address] [place] [address] Jose Manuel Perea MD [address] [place] [address] Social History Tobacco Use Types Packs/Day Years Used Date Smoking Tobacco: Never Assessed Sex and Gender Information Value Date Recorded Sex Assigned at Not on file Legal Sex Male 5:47 PM LICENSING REPRESENTATIVE Gender Identity Not on file Sexual Orientation Not on file documented as of this encounter Plan of Treatment Not on file documented as of this encounter Procedures Procedure Name Priority Date/Time Associated Diagnosis Comments DERMATOPATHOLOGY Routine 07/18/2020 12:0 0 AM LICENSING REPRESENTATIVE documented in this encounter Results * DERMATOPATHOLOGY (07/18/2020 12:00 AM LICENSING REPRESENTATIVE) Case Report Dermatopathology Report Case: [id number] Authorizing Provider: Jose Manuel Perea MD Collected: 07/18/2020 12:00 AM Ordering Location: [facility] Received: 07/19/2020 11:28 AM Pathologist: Osiel Rangel MD Specimen: Skin, dorsal right wrist 0 4:03 PM LICENSING REPRESENTATIVE DERMATOPATHOLOGY LABORATORY Final Diagnosis Specimen A. 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 Check margins. 0 4:03 PM [facility] DERMATOPATHOLOGY [facility]ORATORY Gross Description Specimen A: Received is one formalin filled container labeled with the patient's name and designated dorsal right wrist. The specimen consists of a curettage and desiccation biopsy measuring [id number]. The margin is inked green. Jar 0. 0 4:03 PM [facility] DERMATOPATHOLOGY [facility]ORATORY Microscopic Description Specimen A. SKIN, dorsal right wrist: Sections reveal parakeratosis, acanthosis and keratinocyte dysmaturation which is most prominent in the lower epidermis. Focal nests are present in the dermis. This lesion is not present at the sampled margin of the specimen. 0 4:03 PM [facility] DERMATOPATHOLOGY [facility]ORATORY Disclaimer An external and internal positive and negative controls are appropriate for the histochemical, immunohistochemical and immunofluorescence stain(s) in this case (if any), except where stated explicitly. The performance characteristics of the stain(s) cited in this report were developed and its performance characteristic determined by the Dermatopathology Laboratory at [facility], directed by Dr. Odessa Rangel. These tests need not be, and therefore are not, approved by the [place] Food and Drug Administration. The tests are used for clinical purposes. Billing Codes Specimen Charges Stain Charges 62059 1 0 4:03 PM [facility] DERMATOPATHOLOGY [facility]ORATORY Embedded Images 0 4:03 PM [facility] DERMATOPATHOLOGY [facility]OR[facility]ORY Pathology/Cytolog y TISSUE SPECIMEN FROM SKIN / Unknown 07/18/2020 07/19/2020 11:28 AM LICENSING REPRESENTATIVE Jose Manuel Perea MD LAB - PATHOLOGY/CYTOLOGY ORD ERABLES Final Result DERMATOPATHOLOGY LABORATORY [facility] - Department of Dermatology [address] [phone] documented in this encounter Visit Diagnoses Not on filedocumented in this encounter Additional Health Concerns Infection Onset Date Last Indicated Resolved Time COVID-19 Under Investigation 08/26/2024 08/26/2024 08/26/2024 11:01 PM LICENSING REPRESENTATIVE documented as of this encounter Care Teams Urology Teacher Relationship Specialty Start Date End Date Gege Jackson MD [address] [address] PCP - General Internal Medicine 08/26/24 documented as of this encounter
--- OUTSIDE RECORDS SUMMARY | 2024-11-28 17:38 | XMS_ITS | Encounter Summary ---
Author Name [facility] [place] [facility] [place] [facility] [place] Address [address] [place] [address] Care Team Providers Care Entertainer & Comic Name Role Phone AZRA TORRES Primary Care [...] PART A May 10, 2006 PART A [id number] [phone] Aníbal NORRIS HARFROY PATIENT MEDICARE (WNR) MEDICARE (M) PART B May 10, 2006 PART B [id number] Aníbal NORRIS ELIFROY PATIENT MEDICARE (WNR) MEDICARE (M) PART A May 10, 2006 PART A [id number] Aníbal NORRIS ELIFROY PATIENT MEDICARE (WNR) MEDICARE (M) PART B May 10, 2006 PART B [id number] Aníbal NORRIS PATIENT Selected Encounter This section includes the information on record at [place] for the Encounter. Date/Time Encounter Type Encounter Description Reason Provider Source Jan 19, 2024 10:00 AM ADMN SARSCOV2 VACC 1 DOSE PRIMARY CARE/MEDICINE ICD-10-CM Z00.00 Encntr for general adult medical exam w/o abnormal findings TARIQ TORRESBY Bernadette Woodrow Encounter Template Text not used by [place] Assessments - Encounter Diagnoses This section includes the primary and secondary diagnoses documented for the Encounter. Date/Time Primary/Secondary Diagnosis Diagnosis Name Provider Source Jan 19, 2024 11:36 AM PRIMARY Encntr for general adult medical exam w/o abnormal findings TARIQ TORRESERLINDA [facility] Jan 19, 2024 11:36 AM SECONDARY Anxiety disorder, unspecified AZRA TORRES [facility] Jan 19, 2024 11:36 AM SECONDARY Athscl heart disease of [place] coronary artery w/o ang pctrs [facility]ORRESAZRA [facility] Jan 19, 2024 11:36 AM SECONDARY Chronic kidney disease, unspecified AZRA TORRES [facility] Jan 19, 2024 11:36 AM SECONDARY Encounter for immunization TORRESAZRA R [facility] Jan 19, 2024 11:36 AM SECONDARY Essential (primary) hypertension AZRA TORRES [facility] Jan 19, 2024 11:36 AM SECONDARY Gastro-esophageal reflux disease without esophagitis [facility]RESAZRA [facility] Jan 19, 2024 11:36 AM SECONDARY Hyperlipidemia, unspecified AZRA TORRES [facility] Jan 19, 2024 11:36 AM SECONDARY Iron deficiency anemia, unspecified AZRA TORRES [facility] Jan 19, 2024 11:36 AM SECONDARY Malignant neoplasm of prostate AZRA TORRES [facility] Jan 19, 2024 11:36 AM SECONDARY Type 2 diabetes mellitus without complications AZRA TORRES [facility] Jan 19, 2024 11:36 AM SECONDARY Unspecified atrial fibrillation AZRA TORRES [facility] Jan 19, 2024 11:36 AM SECONDARY Unspecified sensorineural hearing loss AZRA TORRES [facility] Jan 19, 2024 11:36 AM SECONDARY Vitamin B12 deficiency anemia, unspecified AZRA TORRES [facility] Jan 19, 2024 11:36 AM SECONDARY Vitamin D deficiency, unspecified [facility] Vital Signs: All taken on the encounter date This section contains inpatient and outpatient Vital Signs collected on the date of the Encounter. Date/Time Temperature Pulse Blood Pressure Respiratory Rate SP02 Pain Height Weight Body Mass Index Source Jan 19, 2024 09:51 AM 98 70 96/60 18 99 3 182.6 24 [facility] Immunizations: All administered on the encounter date This section contains immunizations associated to the Encounter. Immunization Series Date Issued Administered By Site Reaction Lot Number CVX Code Drug Clay Miller Comment(s) Source COVID-19 (PFIZER), MRNA, LNP-S, PF, JOSESITO-SUCROSE, 30 MCG/0.3 ML (AGES 12+ YEARS) Jan 19, 2024 DALILA LO LEFT DELTO ID [id number] [employer] ADMINISTERE [facility] Social History: Smoking Status (Most current) and Tobacco Use (All prior to encounter date) This section includes the most current, and the historical, smoking and tobacco- related health factors from the [place] facility where the Encounter took place. Current Smoking Status This section includes the most current smoking, or tobacco-related health factor, from the [place] facility where the Encounter took place. Date/Time Current Smoking Status Comment Alexandro ity Jan 19, 2024 10:00 AM [place]-TOBACCO FORMER USER [facility] Tobacco Use History This section includes a history of the smoking, or tobacco-related health factors, that were collected on or before the date of the Encounter. The data comes from the [place] facility where the Encounter took place. Date/Time Smoking Status/Tobacco Use Comment F achumphrey Jan 19, 2024 10:00 AM VA-TOBACCO QUIT 15 YRS OR MORE [facility] Mar 12, 2018 11:59 AM [place] NEVER USED [facility] Mar 12, 2017 12:48 PM QUIT TOBACCO >7 YEARS AGO [facility] Mar 12, 2016 01:38 PM QUIT TOBACCO >7 YEARS AGO [facility] Feb 27, 2015 08:29 AM QUIT TOBACCO >7 YEARS AGO [facility] December 19, 2013 01:35 PM QUIT TOBACCO >7 YEARS AGO [facility] December 13, 2012 12:55 PM QUIT TOBACCO >7 YEARS AGO [facility] December 29, 2006 03:05 PM QUIT TOBACCO >7 YEARS AGO [facility] Mar 17, 2006 09:27 AM CURRENT NON-TOBACC O USER-HX OF USE [facility] Mar 17, 2006 09:27 AM TOBACCO TERMINATION STAGE [facility] Jun 12, 2005 01:08 PM CURRENT NON-TOBACC O USER-HX OF USE [facility] Jun 12, 2005 01:08 PM TOBACCO TERMINATION STAGE [facility] Sep 12, 2004 01:38 PM CURRENT NON-TOBACC O USER-HX OF USE [facility] Sep 12, 2004 01:38 PM TOBACCO TERMINATION STAGE [facility] Advance Directives: All historical and current Section Date Range: From patient's date of to the date document was created. This section includes ALL of a patient's completed or amended [place] Advance and Rescinded Directives. The entries below indicate that a directive exists for the patient, but an actual copy is not included with this document. The data comes from all [place] facilities. Date Advance Directives Provider Source Feb 02, 2023 ADVANCE DIRECTIVE LESLIETARAA [facility] Encounter Notes: All associated encounter notes This section contains the clinical notes associated to the Encounter. Date/Time Encounter Note(s) Provider Source Jan 19, 2024 09:55 AM NURSING NOTE: LOCAL TITLE: V15 PACT FACE TO FACE NOTE [facility] STANDARD TITLE: NURSING NOTE DATE OF NOTE: [...] or a mental or emotional illness? No [facility] ([facility]), please select appointment type: [place] Video Connect (VVC) - Are you registered for [facility]? No- Are you interested in getting this done? No Contact provided Primary Care phone number and encouraged to call if any questions or concerns. Review that after hours nurse line [phone] and emergency room are available 02/03 for patient use. Contact verbalized good understanding. Suicide Screen: C-SSRS Screening [place]-Suicide Severity Rating Scale (C-SSRS Screener) 1. Over [...] Screen: ADL Screen - Richards Index of [place] in Activities of Daily Living Bathing: (3 [...] Low (patient very dependent) IADL Screen - [place] Instrumental Activities of Daily Living Scale Ability [...] YEARS) Date Administered: Jan 19, 2024 10:00 Clay Miller: [employer] Lot: [id number] Exp Date: Apr 09, 2024 ND: [id number] Admin Route/Site: INTRAMUSCULAR/LEFT DELTOID Dosage: 0.3mL Vaccine Information Statement(s): COVID-19 MRNA VACCINE (12+ YRS) VACCINE VIS May 28, 2023 (FIJIAN) Order By: Azra Torres Administered By: Shannon Lo Vaccine administered without complications. /francisco/ SHANNON LO LPN LICENSED PRACITCAL NURSE Signed: 01/19/2024 10:13 SHANNON LO [facility] Jan 19, 2024 09:51 AM PRIMARY CARE NOTE: LOCAL TITLE: PRIMARY CARE PROVIDER ESTABLISHED VISIT ST STANDARD TITLE: PRIMARY CARE NOTE DATE OF NOTE: JAN 19, 2024@09:51 ENTRY DATE: JAN 19, 2024@09:51:56 AUTHOR: AZRA TORRES COSIGNER: URGENCY: STATUS: COMPLETED REASON FOR VISIT/CHIEF COMPLAINT: Evaluation and management of chronic medical conditions/ My scheduled visit HPI: Patient is a 78 year old WHITE MALE who presents to the clinic for evaluation and management of chronic medical conditions. Patient denies any recent ED visits or hospitalizations. Patient goes by [facility]. Patient [place] going to the [place]. Patient brought in an updated non-VA medication list, this was updated this visit. Private providers: -Private PCP (patient unsure of name). -Private enrollment processor Dr. Rangel Slaughter at [facility] heart and vascular. -Private renal specialist [...] with supplementation. #SAAD: -Reports compliance with supplementation. #KLAMATH: -Reports difficultly with hearing. -Denies dizziness or fluid in the ear. SOURCE(S) OF HISTORY: Patient PAST MEDICAL HISTORY: 1) Coronary atherosclerosis (SNOMED CT 302155096) comment: 6 vessel CABG 2) Type 2 diabetes mellitus (SNOMED CT 58012458) 3) Benign essential hypertension (SNOMED CT 0981587) 4) Hyperlipidemia 5) Prostate cancer comment: prostatectomy [...] Denies. -Patient lives alone. Patients lives in [place]. Patient uses a cane PRN and has [...] or incontinence. Musculoskeletal/Extremities: Denies edema. Denies pain. /CONCRETE PRODUCTS DISPATCHER: Denies frequency, hesitancy, urgency, or hematuria. Psychology: [...] Immunization Series Date Facility Reaction Info COVID-19 (PFIZER), MRNA, LNP-S, * 1 01/28/2022 [facility] COVID-19 (PFIZER), MRNA, LNP-S, * 5 05/22/2022 [facility] 2510 COVID-19 ([employer]), MRNA, LNP-S, * 3 07/27/2021 [facility]* <C> COVID-19 (PFIZER), MRNA, LNP-S, * 2 10/20/2020 [facility]* <C> COVID-19 (PFIZER), MRNA, LNP-S, * 1 09/29/2020 [facility]* <C> INFLUENZA, UNSPECIFIED FORMULATI* No Site OUTSIDE PNEUMOVAX (HISTORICAL) 05/13/2005 [place] [facility] 02/15/2007 [place] [facility]IVE 03/23/2009 [facility]* ZOSTER RECOMBINANT 2 07/12/2018 [facility]* ZOSTER RECOMBINANT 1 03/12/2018 [facility]* Colonoscopy: Aged out. PSA: Aged out. LDCT: [...] and to avoid NSAIDs. -Reviewed lifestyle modifications. -Novelty Maker contact information given. -Evaluation and management per private renal specialist. GERD: -Continue medication regimen. -Reviewed lifestyle modifications. -Educated to avoid triggering foods such as alcohol, caffeinated drinks, chocolate, coffee, spicy foods, citrus foods, tomatoes etc. -Evaluation and management per private PCP. Prostate Cancer: -Patient denies concerns today. -Evaluation and management per private PCP. Anxiety: -Continue medication regimen. -Reviewed lifestyle modifications. -[place] crisis line and whole health contact information [...] supplementation. -Evaluation and management per private PCP. KLAMATH: -Audiology contact information given. -Educated to avoid loud noises, avoid cotton swabs and to keep ears dry. RETURN TO CLINIC: 1 year or earlier as needed. SUMMARY STATEMENT: Plan of care has been discussed with including expected therapeutic benefits and potential side effects of prescribed medication and treatments. verbalizes understanding and is in agreement with the plan of care. Patient was instructed to keep all scheduled appointments and contact time analysis clerk for any additional problems. Medication Reconciliation Opt STL: I have reviewed the patient's medication list (including active outpatient prescriptions dispensed from this VA (local) and dispensed from another VA or DoD facility (remote) as well as inpatient orders (local pending and active), local clinic medications, locally documented non-VA medications, and local prescriptions that have or been discontinued in the past 90 days.) with the patient and/or his/her care-water supervisor. Handwritten corrections, additions and/or deletions were made to the list, as appropriate. Corrected Outpatient Medication List was provided to the patient/caregiver. HIV Screening (Routine): Patient has been offered HIV testing and has declined. I have explained that HIV testing is recommended for all adults, even if all risk factors are absent. Frail/Elderly Screen: ADL Screen - Richards Index of [place] in Activities of Daily Living Bathing: (3 [...] Low (patient very dependent) IADL Screen - [place] Instrumental Activities of Daily Living Scale Ability [...] diminished) SENSORY CHECK: Includes 10 gram Monofilament (Kenova-Sanchez) test of sensation. Intact (Greater than or [...] Care as scheduled. /francisco/ Azra Torres DNP, RD MECHANICAL ENGINEER, INTERACTIVE MEDIA MARKETING DIRECTOR-C Primary Care Nurse Practitioner Signed: 01/19/2024 11:36 AZRA TORRES [facility]
--- OUTSIDE RECORDS SUMMARY | 2024-11-28 17:38 | XMS_ITS | Clinical Summary ---
Author Organization [facility] Facility Address [address] [address] Care Team Providers Care Novelty Twister Operator Name Role Phone Gege Jackson MD Primary Care Provider [phone] Medications Cholecalciferol 50 MCG (1999) capsule Take [...] a day 180 tablet 1 2 Active Social History Tobacco Use Types Packs/Day Years [...] Exam 01/03/2021 Diabetes: Hemoglobin A1C 11/25/2024 08/27/2024, 12/2021 Pneumococcal Vaccine: 50+ Years Completed 02/12/2022, 09/16/2017, 05/13/2005 Influenza Vaccine Completed 07/20/2024, , 05/10/2022, Additional history exists Hepatitis B Vaccine Aged Out No longe r eligible based on patient's age to complete this topic Insurance Medicare [facility] Care Teams Novelty Twister Operator Relationship Specialty Start Date End Date Gege Jackson MD [address] [facility] [facility], [address] [place] [address] PCP - General Internal Medicine 03/12/21
--- OUTSIDE RECORDS SUMMARY | 2024-11-28 17:38 | XMS_ITS | Continuity of Care Document ---
Author Organization [facility] Address [address] [place] [address] Phone Care Team Providers Care Driving Instructor Name Role Phone Judie Hoang Unavailable Unavailable Procedures Procedure Date Office/outpatient Visit, Est Dilated Retinal Exam W Interpretation Ct Eye Exam & Treatment Dilated Retinal Exam W Interpretation Ct Office/outpatient Visit, Est Dilated Retinal Exam W Interpretation Ct Eye Exam & Treatment Advance Directives Directive Yes / No Effective Date File Name No Information Encounters Encounter Description Practice Location Reason(s) For Visit Diagnoses Date Provider Providers Copied on Encounter Office/outpat ient Visit, [facility], [address] [place] [address] [address], [place], [place], [id number], [place] tel:[phone] [facility] No Information Oct-2 3-201 0 Natalya Dimas. [address] , [address], [place], [place], [facility], [place]. tel:[phone] [facility], [address], [place], [place], [id number], [place] tel:[phone] [facility] No Information Oct-3 1-200 9 Natalya Dimas. [address] , [address], [place], [address], [place]. tel:[phone] Office/outpat ient Visit, [facility], [address] [place] [address] [address], [place], [place], [id number], [place] tel:[phone] [facility] No Information Oct-2 8-200 8 Natalya Judie. [address] , [address], [place], [address], . tel:[phone] [facility], [address], [place], [place], [id number], [place] tel:[phone] [facility] No Information Oct-2 7-200 7 Natalya Judie. [address] [facility] , [address], [place], [address], [place]. tel:[phone] Family History Family Member Type Diagnosis Age At Onset No Information Payers Payer name Insurance type Covered green party ID Authoriza tion(s) Medicare [place] [id number] BCBS [place] Commercial CI [id number] Social History Type Description Quantity Date Captured [...]
--- OUTSIDE RECORDS SUMMARY | 2024-11-28 17:38 | XMS_ITS | Clinical Summary ---
Author Organization [facility] Address [address] [place] [address] Care Team Providers Care Director Of Managed Care Name Role Phone Ayo Jackson MD Primary Care Provide r Garrison Mary MD Unavailable [phone] Allergies Active Allergy Reactions Criticality Noted Date [...] monitoring Assessment & Plan (07/15/2021 3:48 PM CONTENT SPECIALIST): Parathyroid hormone level, call with results, consider referral to Head and Neck surgery at [facility] Surgical History Surgery Date Site/Laterality Comments BYPASS [...] on file Legal Sex Male 6:41 PM CONTENT SPECIALIST Gender Identity Not on file Sexual Orientation Not on file Obstetrics History Last Filed Vital Signs Vital Sign Reading Time Taken Comments Blood Pressure 124/76 07/08/2022 7:43 AM CONTENT SPECIALIST Pulse 79 07/08/2022 7:43 AM CONTENT SPECIALIST Temperature 36.2 C (97.2 F) 07/08/2022 7:43 AM CONTENT SPECIALIST Respiratory Rate 16 07/08/2022 7:43 AM CONTENT SPECIALIST Oxygen Saturation 94% 07/08/2022 7:43 AM CONTENT SPECIALIST Inhaled Oxygen Concentration - - Weight 82.1 kg (181 lb) 07/07/2022 7:13 AM CONTENT SPECIALIST Height 185.4 cm (6' 1 ) 07/07/2022 7:13 AM CONTENT SPECIALIST Body Mass Index 23.88 07/07/2022 7:13 AM CONTENT SPECIALIST Plan of Treatment Health Maintenance Due Date Last Done Comments DTaP/Tdap/Td Vaccine (1 - Tdap) 1955 Hepatitis B Screening 1962 Zoster Vaccine (1 of 2) 1994 Well Visit 65+ 2009 Depression Screening 05/12/2023 05/12/2022, 11/09/19 22 Fall Risk Assessment 07/08/2023 07/08/2022 Covid-19 Vaccine (2023-2 5 season) 2024 07/27/2021, 11/10/2020, 10/20/2020 Influenza Vaccine (Season Ended) 2025 06/03/2021, 05/16/2020, 04/10/2020, Additional history exists Pneumococcal vaccine 65+ Completed 02/12/2022, 02/2018 Medical Devices Implanted Type Area General Road Production Manager Device Identifier Shelf Expiration Date Model / Serial / Lot [employer] Sls-Clip Ligate Triangular Wire Leslee Groove Small [employer] Clip Latex Free [id number] - [id number] Implanted:Qty: 3 on 07/07/2022 by Gavin Sommer MD at [facility] [employer] [id number] / / Insurance MEDICARE [facility] MEDICARE [facility] MEDICARE [facility] Advance Directives For more information, please contact: [phone] * Full Code (Latest Code Status on File) Date Activated Date Inactivated Comments 07/07/2022 12:53 PM 07/08/2022 3:25 PM Care Teams Director Of Managed Care Relationship Specialty Start Date End Date Ayo Jackson MD [address] [facility] [address] [place] [address] PCP - General Internal Medicine 05/08/21 Garrison Mary MD [address] [facility] [address] [place] [address] Consulting Physician Otolaryngology 11/05/21
[2024-11-28 17:58] LABS: Alanine Aminotransferase 13 U/L (6-50); Albumin Level 2.2 g/dL (3.5-5.1); Alkaline Phosphatase 93 U/L (38-126); Anion Gap 0 mmol/L (4-12); Aspartate Amino Transferase 21 U/L (17-59); Bilirubin,Total 0.3 mg/dL (0.2-1.3); Blood Urea Nitrogen 28 mg/dL (9-20); Calcium 7.4 mg/dL (8.4-10.2); Carbon Dioxide 32 mmol/L (22-30); Chloride 103 mmol/L (98-107); Estimated Glomerular Filt Rate > 60; Glucose 111 mg/dL (65-110); NT Pro B Type Natriuretic Pept 1250 pg/mL (19.9-100); Potassium 3.7 mmol/L (3.4-5.0); Sodium 135 mmol/L (137-145); Troponin I < 0.012 ng/mL (0.000-0.034)
[2024-11-28 18:00] LABS: Anisocytosis 1+; Hypochromasia 1+; Ovalocytes 1+; Platelet Estimate Adequate (Adequate); Schistocytes None Seen
[2024-11-28 18:02] VITALS: BP 148/71; PULSE 87; RESP 20; TEMP 36.6; O2SAT 94
[2024-11-28 18:05] VITALS: O2SAT 100
[2024-11-28 18:12] LABS: INR 1.8; Partial Thromboplastin Time 40.7 Seconds (22.3-36.8); Prothrombin Time 21.3 Seconds (11.1-14.7)
[2024-11-28 18:34] LABS: Add Urine Microscopic? YES; Appearance Urine Clear (Clear); Bacteria Urine 4+ /hpf; Bilirubin Urine Negative (Negative); Blood Urine Negative (Negative); Color Urine Yellow (Yellow); Glucose Urine UA Negative (Negative); Ketones Urine Negative (Negative); Leukocyte Esterase Ur 2+ LEU/UL (Negative); Need Manual Microscopic Reviewed; Nitrate Urine Positive (Negative); Non Pathogenic Casts 0-2; Protein Urine Negative (Negative); RBC Urine 0-2 /hpf (0-2); Specific Grav Ur 1.022 (1.001-1.035); Squamous Epithelial Cell Urine None Seen /hpf (Few); WBC Urine 21-50 /hpf (0-3); pH Urine 5.5 (5.0-9.0)
--- NOTE | 2024-11-28 19:21 | PC.NURSE ---
Assumed care of patient after receiving bedside report from FLACO Strong @ [phone]
[2024-11-28 19:26] VITALS: BP 136/65; PULSE 84; RESP 14; O2SAT 95
--- OUTSIDE RECORDS SUMMARY | 2024-11-28 19:57 | XMS_ITS | Clinical Summary ---
Author Organization [facility] Address [address] [place] [address] Care Team Providers Care Glass Toughening Operator Name Role Phone Gege Jackson MD Primary Care Provider Source Comments [facility],non-owned Affiliates and Associated Physician Practices is amultiple site organization consisting of ambulatory clinics and hospital sitesin [place], [place], [place] and [place]. This disclosure is being madepursuant to the Care Everywhere program and may not contain all information available regarding this patient. Last updated 18.[facility] Allergies Active Allergy Reactions Criticality Noted Date [...] [facility] - General Surgery [address] [place] [address] Kirsten Nguyễn, RN Coordination Of Care 11/03/2024 1:12 PM CDT - 11/03/2024 11:59 PM CDT Hospital Encounter [facility] [address] [place] [address] Krys Hoffman, ROSS CARRIER DRIVER-MECHANICAL ESTIMATOR Discharge Disposition: Home or Self Care 11/03/2024 12:00 PM CDT Office Visit [facility] - General Surgery [address] [place] [address] Krys Hoffman, ROSS CARRIER DRIVER-MECHANICAL ESTIMATOR Closed fracture of multiple ribs of left side with routine healing, subsequent encounter (Primary Dx) 11/03/2024 Travel 09/26/2024 Travel 08/26/2024 1:13 AM PATIENT FINANCIAL SPECIALIST - 09/05/2024 2:50 PM PATIENT FINANCIAL SPECIALIST Hospital Encounter [facility] 5S ACUTE [address] [place] [address] Clovis Wilkinson MD Naughton, Daniel J, MD [...] and heating? Not hard at all 08/28/2024 [facility] - Occupational Stress [...] any time in the past 12 m [facility], were you homeless or living in a custodial (including now)? No 08/28/2024 Sex and Gender Information Value Date Recorded Sex Assigned at Not on file Legal Sex Male 5:47 PM PATIENT FINANCIAL SPECIALIST Gender Identity Not on file Sexual Orientation Not on file Last Filed Vital Signs Vital Sign Reading Time Taken Comments Blood Pressure 154/70 11/03/2024 12:36 PM CDT Pulse 54 11/03/2024 12:36 PM CDT Temperature 37 C (98.6 F) 09/05/2024 11:14 AM PATIENT FINANCIAL SPECIALIST Respiratory Rate 20 09/05/2024 11:14 AM PATIENT FINANCIAL SPECIALIST Oxygen Saturation 92% 11/03/2024 12:36 PM CDT [...] CHEST 1VW PORTABLE Routine 09/02/2024 3:00 PM PATIENT FINANCIAL SPECIALIST Hemopneumothorax on left XR CHEST 1VW PORTABLE Routine 09/02/2024 4:32 AM PATIENT FINANCIAL SPECIALIST Hemopneumothorax on left Contusion of left lung, initial encounter XR CHEST 1VW PORTABLE Routine 09/01/2024 5:16 AM PATIENT FINANCIAL SPECIALIST Hemopneumothorax on left RENAL FUNCTION PANEL AM Draw 09/01/2024 3:06 AM PATIENT FINANCIAL SPECIALIST MAGNESIUM BLOOD STAT 08/31/2024 6:47 AM PATIENT FINANCIAL SPECIALIST RENAL FUNCTION PANEL STAT 08/31/2024 6:47 AM PATIENT FINANCIAL SPECIALIST CBC W/O DIFFERENTIAL STAT 08/31/2024 6:47 AM PATIENT FINANCIAL SPECIALIST XR CHEST 1VW PORTABLE STAT 08/31/2024 5:05 AM PATIENT FINANCIAL SPECIALIST Hemopneumothorax on left XR CHEST 1VW PORTABLE Routine 08/30/2024 4:42 AM PATIENT FINANCIAL SPECIALIST Hemopneumothorax on left from Last 3 Months [...] MD on 11/04/2024 11:01 AM Krys Hoffman ROSS CARRIER DRIVER-MECHANICAL ESTIMATOR DIAGNOSTIC IMAGING ORDER DARWIN Final Result * XR Chest 1Vw Portable (09/02/2024 3:00 PM PATIENT FINANCIAL SPECIALIST) Only the most recent of5 resultswithin the time period is included. Anatomical Region Laterality Modality Chest Digital Radiogra phy 09/03/2024 10:0 6 AM PATIENT FINANCIAL SPECIALIST Narrative 09/04/2024 6:36 AM PATIENT FINANCIAL SPECIALIST PROCEDURE: XR CHEST 1VW PORTABLE, DATE/TIME OF EXAM: 09/02/2024 3:00 PM, LOCATION [facility] INDICATION: J94.2: Hemopneumothorax on left ADDITIONAL [...] stable. Report dictated by Jaya Hernandez MD, (resident intern). IBindu MD have personally reviewed and interpreted this examination/study. > Interpreting Provider: Bindu Wright MD on 09/04/2024 6:36 AM Procedure Note Bindu Wright MD - 09/04/2024 PROCEDURE: XR CHEST 1VW PORTABLE, DATE/TIME OF EXAM: 09/02/2024 3:00PM, LOCATION [facility] INDICATION: J94.2: Hemopneumothorax on left ADDITIONAL [...] isstable. Report dictated by Jaya Hernandez MD, (resident intern). I, Bindu Wright MD have personally reviewed and interpreted this examination/study. > Interpreting Provider: Bindu Wright MD on 09/04/2024 6:36 AM Morena Cartagena Normamagan ROSS CARRIER DRIVER-SOLAR SYSTEM DESIGNER DIAGNOSTIC IMAGING ORDERA BLES Final Result * (ABNORMAL) RENAL FUNCTION PANEL (09/01/2024 3:06 AM [facility]) Only the most recent of2 resultswithin the time period is included. BUN 20 7 - 26 mg/dL 09/01/2024 4:03 AM [facility] Creatinine 0.66(L) 0.71 - 1.16 mg/dL 09/01/2024 4:03 AM [facility] Sodium 135(L) 136 - 145 mmol/L 09/01/2024 4:03 AM [facility] Potassium 4.1 3.5 - 4.5 mmol/L 09/01/2024 4:03 AM [facility] Chloride 104 98 - 107 mmol/L 09/01/2024 4:03 AM [facility] CO2 26 22 - 29 mmol/L 09/01/2024 4:03 AM [facility] Glucose 131(H) 70 - 99 mg/dL 09/01/2024 4:03 AM [facility] Albumin 1.7(L) 3.4 - 5.0 g/dL 09/01/2024 4:03 AM [facility] Calcium 7.7(L) 8.4 - 10.2 mg/dL 09/01/2024 4:03 AM [facility] Phosphorus 3.2 2.8 - 5.1 mg/dL 09/01/2024 4:03 AM [facility] Anion Gap 5(L) 6 - 16 09/01/2024 4:03 AM [facility] BUN/Creatinine Ratio 30(H) 7 - 23 09/01/2024 4:03 AM [facility] Osmolality Calculated 284 275 - 295 mOsm/kg 09/01/2024 4:03 AM [facility] eGFR by CKD-EPI >90 >=90 mL/min/1.7 3 m2 09/01/2024 4:03 AM [facility] Blood BLOOD SPECIMEN / Unknown Lab Venipuncture / Unknown 09/01/2024 3:06 AM PATIENT FINANCIAL SPECIALIST 09/01/2024 3:32 AM [facility] us Silvia Arevalo ROSS CARRIER DRIVER-SOLAR SYSTEM DESIGNER LAB - CHEMISTRY ORDERABLE S Final Result Performing Organization Address City/State/[facility] Co de Phone Number [address] [address] [phone] * (ABNORMAL) CBC W/O DIFFERENTIAL (08/31/2024 6:47 AM PATIENT FINANCIAL SPECIALIST) WBC 5.8 4.0 - 10.7 x10E9/L 08/31/2024 7:28 AM [facility] RBC Count 3.64(L) 4.30 - 5.80 x10E12/L 08/31/2024 7:28 AM [facility] Hemoglobin 9.2(L) 13.3 - 17.5 g/dL 08/31/2024 7:28 AM [facility] Hematocrit 29.7(L) 38.7 - 51.1 % 08/31/2024 7:28 AM [facility] MCV 81.6 80.0 - 98.0 fL 08/31/2024 7:28 AM [facility] MCH 25.3(L) 26.7 - 33.6 pg 08/31/2024 7:28 AM [facility] MCHC 31.0(L) 31.7 - 36.3 g/dL 08/31/2024 7:28 AM [facility] RDW-CV 16.0(H) 11.3 - 14.8 % 08/31/2024 7:28 AM [facility] Platelet Count 252 150 - 420 x10E9/L 08/31/2024 7:28 AM [facility] MPV 9.8 7.8 - 11.4 fL 08/31/2024 7:28 AM [facility] Blood BLOOD SPECIMEN / Unknown Lab Venipuncture / Unknown 08/31/2024 6:47 AM PATIENT FINANCIAL SPECIALIST 08/31/2024 7:12 AM PATIENT FINANCIAL SPECIALIST us Silvia Arevalo APRN-SOLAR SYSTEM DESIGNER LAB - HEMATOLOGY ORDERABL ES Final Result [address] [address], [place] [phone] * MAGNESIUM BLOOD (08/31/2024 6:47 AM PATIENT FINANCIAL SPECIALIST) Magnesium 1.9 1.6 - 2.6 mg/dL 08/31/2024 7:43 AM [facility] Blood BLOOD SPECIMEN / Unknown Lab Venipuncture / Unknown 08/31/2024 6:47 AM PATIENT FINANCIAL SPECIALIST 08/31/2024 7:30 AM PATIENT FINANCIAL SPECIALIST us Silvia Arevalo APRN-SOLAR SYSTEM DESIGNER LAB - CHEMISTRY ORDERABLE S Final Result [address] [address], [place] [phone] from Last 3 Months Insurance MEDICARE MEDICARE [facility] Address: [address] [place] [address] Advance Directives * Full Code (Latest Code Status on File) Date Activated Date Inactivated Comments 08/26/2024 5:35 AM 09/05/2024 4:25 PM Care Teams Glass Toughening Operator Relationship Specialty Start Date End Date Gege Jackson MD [address] [address] PCP - General Internal Medicine 08/26/24
--- OUTSIDE RECORDS SUMMARY | 2024-11-28 19:57 | XMS_ITS | CONTINUITY OF CARE DOCUMENT ---
Author Name guy tovar Address Unknown Organization [facility] Address [address] [place] [address] Phone [phone] Care Team Providers Care Ground Source Heat Pump Technician Name Role Phone Sukhjinder HUNTER, Rangel Unavailable [phone] YULIA LIMA MD Unavailable [phone] YULIA LIMA MD Unavailable PROBLEMS Condition Status [...] FIBR, PAROX; NML TSH, active Dinah nair [facility] Tobacco use, quit active Rangel Slaughter [...] - Rangel Slaughter MD MYALGIA completed - Rangle Slaughter MD ATRIAL FLUTTER PAROXYSMAL completed 10/22 [...] In-person encounter Office Visit Aaron Wooten MD [facility] Cough - In-person encounter Office Visit Aaron Wooten MD [facility] - In-person encounter Office Visit Rosario Fay MD [facility] - In-person encounter Office Visit Rangel Slaughter MD [facility] - In-person encounter Office Visit Rosario Fay MD [facility] - In-person encounter Office Visit Rosario Fay MD [facility] - In-person encounter Office Visit Rangel Slaughter MD [facility] - In-person encounter Office Visit Rangel Slaughter MD [facility] Diabetes Mellitus, Type IIOverweightMicroalbuminuria;ne g egfrhyperparathyroidism - In-person encounter Office Visit Rangel Slaughter MD [facility] Elevated LFT'sMicroalbuminuria;neg egfrhyperparathyroidism - In-person encounter Office Visit Rangel Slaughter MD [facility] Anemia, iron deficiencyProstate cancer - In-person encounter Office Visit Rangel Slaughter MD [facility] Anemia, iron deficiency - In-person encounter Office Visit Rangel Slaughter MD [facility] - In-person encounter Office Visit Rangel Slaughter MD [facility] Aortic root dilatation - In-person encounter Office Visit Rangel Slaughter MD [facility] HTN essential;NEG DUPLEXDizziness - In-person encounter Office Visit Rangel Slaughter MD [facility] - In-person encounter Office Visit Rangel Slaughter MD [facility] r/o Sleep apnea;neg studyCarotid artery disease <50%r/o AAA;neg usShortness of breath - In-person encounter Office Visit Rosario Fay MD [facility] - In-person encounter Office Visit Rosario Fay MD [facility] Ventricular tachycardia - In-person encounter Office Visit Rangel Slaughter MD [facility] Tobacco use, quitDiastolic CHF and lvhScreening - In-person encounter Office Visit Rangel Slaughter MD [facility] CAD S/P CABG- PAMELA AND 2V 2004Diastolic CHF and lvhScreeningAnemia, iron deficiency - In-person encounter Office Visit Rosario Fay MD [facility] HTN essential;NEG DUPLEXDiabetes Mellitus, Type IICAD S/P CABG- PAMELA AND 2V 2004DYSLIPIDEMIA;with low crpHx of DVTBiotronic BiV cardiac pacemaker presentR/O Sleep apnea - In-person encounter Office Visit Rosario Fay MD [facility] - In-person encounter Office Visit Rangel Slaughter MD [facility] DYSLIPIDEMIA;with low crpr/o Sleep apnea;neg studyDyspnea on exertion - In-person encounter Office Visit Rangel Slaughter MD [facility] - In-person encounter Office Visit Rosario Fay MD [facility] R/O Sleep apnea - In-person encounter Office Visit Rosario Fay MD [facility] - In-person encounter Office Visit Rosario Fay MD [facility] - In-person encounter Office Visit Rangel Slaughter MD [facility] ATRIAL FIBR, PAROX; NML TSH,Tobacco use, quitSnoringOBESITY;DID NOT WANT MEDFIAST OR DIET PILLDiabetes Mellitus, Type II, controlled w/ vascular complicationsGranulomatous lung diseaseAortic atherosclerosis - In-person encounter Office Visit Rosario Fay MD [facility] CAD S/P CABG- PAMELA AND 2V 2004AAA; NEG US 09Hx of DVTBiotronic BiV cardiac pacemaker presentArthritis - osteo - In-person encounter Office Visit Rosario Fay MD [facility] - In-person encounter Office Visit Rosario Fay MD [facility] - In-person encounter Office Visit Rangel Slaughter MD [facility] HTN essential;NEG DUPLEXR/O ISCHEMIA;NEG NUC 12 AND 14Biotronic BiV cardiac pacemaker presentDiastolic CHF and lvh - In-person encounter Office Visit Rosario Fay MD [facility] - In-person encounter Office Visit Rangel Slaughter MD [facility] HTN essential;NEG DUPLEXATRIAL FIBR, PAROX; NML TSH,MITRAL REGURGITATION, MILD, NML EF 13DIABETES MELLITUS, TYPE II, CONTROLLED W/ VASCULAR COMPLICATIONSPeripheral vascular disease, unspecifiedDiastolic CHF and lvh - In-person encounter Office Visit Rosario Fay MD [facility] - In-person encounter Office Visit Rangel Slaughter MD [facility] HTN essential;NEG DUPLEXDYSLIPIDEMIA;with low crpATRIAL FIBR, PAROX; NML TSH,OBESITY;DID NOT WANT MEDFIAST OR DIET PILLBiotronic BiV cardiac pacemaker presentCARDIOMYOPATHY - In-person encounter Office Visit Rosario Fay MD [facility] - In-person encounter Office Visit Rosario Fay MD [facility] - In-person encounter Office Visit Rosario Fay MD [facility] - In-person encounter Office Visit Rangel Slaughter MD [facility] DIASTOLIC DYSFUNCTION;NML EF 12DYSLIPIDEMIA;with low crpATRIAL FIBR, PAROX; NML TSH,Tobacco use, quitBRADYCARDIA, SINUS;WORSENED BY SOTOLOLAV BLOCK, 1ST DEGREE;DUE TO MEDSMYALGIAATRIAL FLUTTER PAROXYSMALSICK SINUS SYNDROMEBiotronic BiV cardiac pacemaker present - In-person encounter Office Visit Rosario Fay MD [facility] - In-person encounter Office Visit Rosario Fay MD [facility] - In-person encounter Office Visit Rosario Fay MD [facility] r/o Sleep apnea;neg study - In-person encounter Office Visit Rosario Fay MD [facility] - In-person encounter Office Visit Rangel Slaughter MD [facility] DYSLIPIDEMIA;with low crpATRIAL FIBR, PAROX; NML TSH,Hx of DVTOBESITY;DID NOT WANT MEDFIAST OR DIET PILLR/O ISCHEMIA;NEG NUC 12 AND 14 - In-person encounter Office Visit Rangel Slaughter MD [facility] DIASTOLIC DYSFUNCTION;NML EF 12DYSLIPIDEMIA;with low crpHx of DVTAV BLOCK, 1ST DEGREE;DUE TO MEDS - In-person encounter Office Visit Rangel Slaughter MD [facility] - In-person encounter Office Visit Rangel Slaughter MD [facility] HTN essential;NEG DUPLEXCAD S/P CABG- PAMELA AND 2V 2004DIASTOLIC DYSFUNCTION;NML EF 12Hx of DVTOBESITY;DID NOT WANT MEDFIAST OR DIET PILL - In-person encounter Office Visit Rangel Slaughter MD [facility] ATRIAL FIBR, PAROX; NML TSH,Tobacco use, quit - In-person encounter Office Visit Rangel Slaughter MD [facility] ATRIAL FIBR, PAROX; NML TSH,Snoring - In-person encounter Office Visit Rangel Slaughter MD [facility] CAD S/P CABG- PAMELA AND 2V 2004ATRIAL FIBR, PAROX; NML TSH, - In-person encounter Office Visit Rangel Slaughter MD [facility] HTN essential;NEG DUPLEXAORTIC SCLEROSIS;2008CABG; PAMELA AND 2V 2004;DIASTOLIC DYSFUNCTION;NML EF 12ATRIAL FIBR, PAROX; NML TSH,BRADYCARDIA, SINUS;WORSENED BY SOTOLOL - In-person encounter Office Visit Rangel Slaughter MD [facility] ATRIAL FIBR, PAROX; NML TSH, - In-person encounter Office Visit Rangel Slaughter MD [facility] HTN essential;NEG DUPLEXCABG; PAMELA AND 2V 2004;CAD S/P CABG- PAMELA AND 2V 2004DIASTOLIC DYSFUNCTION;NML EF 12DYSLIPIDEMIA;with low crpATRIAL FIBR, PAROX; NML TSH,Tobacco use, quit - In-person encounter Office Visit Rangel Slaughter MD [facility] AORTIC SCLEROSIS;2008Diabetes Mellitus, Type IICABG; PAMELA AND 2V 2003; VITAL SIGNS Date Observation Value Provider Body Mass Index (Ratio) 25.06 kg/m2 Bernardo Miller blood pressure, diastolic 64 mm[Hg] Diann pope [place] blood pressure, systolic 131 mm[Hg] Sara mcdonald [place] oxygen saturation, oximetry 86 % [facility] 57 [facility] rate E&M 12 /min [facility] weight E&M 190 [lb_av] [facility] height E&M 73 [in_i] [facility] blood pressure, cuff size regular [facility] Body Mass Index (Ratio) 22.69 kg/m2 Bernardo Sinyale [facility] blood pressure, diastolic 72 mm[Hg] [facility], systolic 127 mm[Hg] fredrick [facility] oxygen saturation, oximetry 96 % [facility] pulse rate 89 /min [facility] respiratory rate E&M 12 /min [facility] weight E&M 172 [lb_av] [facility] height E&M 73 [in_i] [facility] blood pressure, cuff size regular [facility] Body Mass Index (Ratio) 24.41 kg/m2 [...] blood pressure, diastolic 74 mm[Hg] Tacos duong Triplett blood pressure, systolic 136 mm[Hg] Harry sahu [place] oxygen saturation, oximetry 96 % [facility] respiratory rate E&M 16 /min [facility] pulse rate 80 /min [facility] weight E&M 189.4 [lb_av] [facility] height E&M 73 [in_i] [facility] Body Mass Index (Ratio) 25.86 kg/m2 [...] [lb_av] Rangel Perez height E&M 73 [in_i] Clarenec lopez Body Mass Index (Ratio) 25.33 kg/m2 [...] MD blood pressure, resting Yes Jef Friedman GALLERY OR MUSEUM ATTENDANT blood pressure, diastolic 82 mm[Hg] Mee Keithzach [...] akira Hernandez oxygen saturation, oximetry 97 % Medora Hernandez respiratory rate E&M 16 /min Medora Hernandez pulse rate 81 /min Arabella Hernandez weight E&M 215 [lb_av] Arabella Hernandez height E&M 73 [in_i] Medora Hernandez Body Mass Index (Ratio) 28.36 kg/m2 [...] nson Body Mass Index (Ratio) 27.31 kg/m2 [facility] Center[facility] Demecs RN blood pressure, cuff size [...] guidry pulse rate 79 /min Cassia Garcia [facility] weight E&M 210 [lb_av] Cassia Garcia [facility] height E&M 73 [in_i] Cassia chery blood [...] Hunter Body Mass Index (Ratio) 27.47 kg/m2 Amadna Hunter weight E&M 208.2 [lb_av] Sabina pritchett [...] omarfab Justus pulse rate 87 /min EduarClaireomarfab Justus oxygen saturation, oximetry 97 % EduarClaireamber Jerome respiratory rate E&M 18 /min Inderjitomarfab Justus Body Mass Index (Ratio) 26.07 kg/m2 Ibrahima Jerome weight E&M 197.6 [lb_av] EduarClaireamber Jerome blood pressure, diastolic 87 mm[Hg] Fl elvia Medina blood pressure, systolic 152 mm[Hg] Vanessa worrella [place] Body Mass Index (Ratio) 27.18 kg/m2 Shazia ssa Medina pulse rate 80 /min Judy Medina oxygen saturation, oximetry 98 % Judy Medina respiratory rate E&M 15 /min Judy Medina weight E&M 206 [lb_av] Judy Medina Body Mass Index (Ratio) 26.60 kg/m2 [facility] blood pressure, diastolic 78 mm[Hg] Me [...] Acuna Hunter blood pressure, systolic 131 mm[Hg] Maryan Rivera Hunter Body Mass Index (Ratio) 26.67 [...] Posada RN weight E&M 220 [lb_av] Moreno Poasda RN blood pressure, diastolic 89 mm[Hg] Kodi [...] pressure, diastolic, right arm 76 m m[Hg] Sanedr [place] blood pressure, systolic, right arm 120 [...] pressure, diastolic, left arm 81 mm [Hg] aKtie Gomes MA blood pressure, systolic, left arm [...] LinkLogic 3.5-5.2 sodium, serum 143 mmol/L [facility] [phone]/12 /08 urea nitrogen/creatinine ratio, serum 21 LinkLogic [...] Not Estab. platelet count 169 X10E3/UL [facility] [phone]/12 /07 red blood cell distribution width 12.4 [...] LDL cholesterol, serum 32 mg/dL Effie Friedman GALLERY OR MUSEUM ATTENDANT pro brain natriuretic peptide 390 pg/mL [facility] 0-376 High ferritin, serum 381 ng/mL [facility] 30-400 iron saturation percent, serum 41 % [facility] 15-55 iron, serum 127 ug/dL [facility] 38-169 iron binding capacity, unsaturated 183 ug/dL [facility] [phone]/03 /20 iron binding capacity, total 310 ug/dL [facility] [phone]/03 /20 calcium, serum 10.2 mg/dL [facility] 8.6-10.2 carbon dioxide, venous blood 23 mmol/L [facility] 20-29 chloride, serum 104 mmol/L [facility] 96-106 potassium, serum 5.0 mmol/L [facility] 3.5-5.2 sodium, serum 143 mmol/L [facility] 774-114 3549/03 /20 urea nitrogen/creatinine ratio, serum 11 [employer] [...] 0-149 High cholesterol, serum 103 mg/dL [facility] [phone]/09 /08 platelet count 137 X10E3/UL [facility] 150-379 [...] [facility] 3.5-5.2 sodium, serum 143 mmol/L [facility] [phone]/09 /08 urea nitrogen/creatinine ratio, serum 18 [employer]Log[facility] [...] iron binding capacity, total 323 ug/dL [facility] [phone]/05 /10 hemoglobin A1C, blood, as % of [...] Not Estab. platelet count 150 X10E3/UL [facility] [phone]/05 /10 red blood cell distribution width 15.0 [...] [facility]Logic 3.5-5.2 sodium, serum 141 mmol/L [facility] [phone]/05 /10 urea nitrogen/creatinine ratio, serum 12 [facility] 10-24 eGFR if 84 mL/min/{1.73_ m2} [facility] >59 eGFR if not 73 mL/min/{1.73_ m2} [facility] >59 creatinine, serum 1.02 mg/dL [facility] 0.76-1.27 urea nitrogen, blood 12 mg/dL [facility] 8-27 blood glucose, random 115 mg/dL LinkLog 65-99 High ferritin, serum 112.5 ng/mL [facility] 30.0 - 400.0 immature granulocytes, percentage of total cells, blood 0.2 % [facility] - nucleated red blood cells as percent of blood leukocytes 0.0 % [facility] - red blood cell (erythrocyte) count, per high power field 0.0 10*3/UL [facility] - eosinophils as percent of blood leukocytes 0.9 % [facility] - neutrophils as percent of blood leukocytes 70.2 % [facility] - Absolute Neutrophils 3.1 CELLS/UL [facility] 1.5 - 7.8 basophils as percent of blood leukocytes 0.5 % [facility] - Absolute Basophils 0.0 CELLS/UL [facility] 0.0 - 0.2 monocytes as percent of blood leukocytes 8.6 % [facility] - Absolute Monocytes 0.4 CELLS/UL [facility] 0.2 - 1.0 lymphocytes as percent of blood leukocytes 19.6 % [facility] - Absolute Lymphocytes 0.9 CELLS/UL [facility] 0.9 - 3.9 mean platelet volume 11.0 (?) [facility] platelet count 145.0 THOUSAND/UL [facility] 100.0 - 400.0 mean corpuscular hemoglobin concentration, RBC 29.9 G/DL LinkLog 31.0 - 38.0 Low mean corpuscular hemoglobin, RBC 27.3 pg LinkLog 25.0 - 35.0 mean corpuscular volume, RBC 91.2 fL LinkLog 75.0 - 100.0 hematocrit, blood 44.8 % [facility] 35.0 - 55.0 hemoglobin, blood 13.4 g/dL LinkLog 11.5 - 16.5 erythrocyte count, whole blood 4.9 MILLION/UL LinkLog 3.5 - 5.5 iron, serum 80.0 ug/dL Link[facility] 31.0 - 144.0 iron saturation percent, serum 23.1 % [facility] 20.0 - 50.0 iron binding capacity, total 345.8 ug/dL [facility] 250.0 - 450.0 folate, serum 17.6 NG/MLM [facility] 5.6 - 45.8 vitamin b12, serum 448.3 pg/mL [facility] 211.0 - 946.0 ferritin, serum 17.5 ng/mL [facility] 30.0 - 400.0 Low red blood cell distribution width, size density 44.9 fL [facility] - immature granulocytes, percentage of total cells, blood 0.2 % [facility] - nucleated red blood cells as percent of blood leukocytes 0.0 % [facility] - red blood cell (erythrocyte) count, per high power field 0.0 10*3/UL [facility] - eosinophils as percent of blood leukocytes 0.4 % [facility] - neutrophils as percent of blood leukocytes 66.9 % [facility] Neutrophils 3.1 CELLS/UL [facility] 1.5 - 7.8 basophils as percent of blood leukocytes 0.6 % [facility] Basophils 0.0 CELLS/UL [facility] 0.0 - 0.2 monocytes as percent of blood leukocytes 8.7 % [facility] Monocytes 0.4 CELLS/UL [facility] 0.2 - 1.0 lymphocytes as percent of blood leukocytes 23.2 % [facility] Lymphocytes 1.1 CELLS/UL [facility] 0.9 - 3.9 mean platelet volume 10.8 (?) [facility] - platelet count 221.0 THOUSAND/UL LinkLogic [...] Posada RN Normal platelet count 145 10*3/mm3 [facility] hematocrit, blood 47.5 % [facility] triglyceride, serum, fasting 165 mg/dL [facility] HDL cholesterol, serum 28 mg/dL [facility] lipoprotein, beta, serum, point, quantitative, calculated 65 mg/dL [facility] cholesterol, serum 126 mg/dL [facility] alanine aminotransferase (SGPT), serum 21 1/L [facility] aspartate aminotransferase (SGOT), serum 23 1/L [facility] creatinine, serum 0.9 mg/dL [facility] potassium, serum 4.3 mmol/L [facility] sodium, serum 139 mmol/L [facility] platelet count 185 10*3/mm3 [facility] hematocrit, blood 45.1 % [place] triglyceride, serum, fasting 86 mg/dL [facility] HDL cholesterol, serum 33 mg/dL [place] lipoprotein, beta, serum, point, quantitative, calculated 70.8 mg/dL [facility] cholesterol, serum 121 mg/dL [facility] alanine aminotransferase (SGPT), serum 24 1/L [facility] aspartate aminotransferase (SGOT), serum 15 1/L [facility] creatinine, serum 1.0 mg/dL [facility] potassium, serum 3.9 mmol/L [facility] sodium, serum 140 mmol/L [facility] triglyceride, serum, fasting 102 mg/dL [facility] HDL cholesterol, serum 22 mg/dL [facility] LDL cholesterol, serum 78 mg/dL [facility] cholesterol, serum 120 mg/dL [facility] platelet count 163 10*3/mm3 [facility] hematocrit, blood 51.2 % [facility] international normalized ratio (INR) 1.8 [facility] creatinine, serum 1.08 mg/dL [facility] potassium, serum 4.2 mmol/L [facility] sodium, serum 143 mmol/L [facility] platelet count 160 10*3/mm3 [facility] hematocrit, blood 47.7 % [facility] lipoprotein, beta, serum, point, quantitative, calculated 37 mg/dL [facility] cholesterol, serum 88 mg/dL [facility] thyroid stimulating hormone, serum 1.330 u[IU]/mL [facility] alanine aminotransferase (SGPT), serum 50 1/L [facility] aspartate aminotransferase (SGOT), serum 23 1/L [facility] creatinine, serum 0.96 mg/dL [facility] potassium, serum 4.1 mmol/L [facility] sodium, serum 143 mmol/L [facility] urate crystals, amorphous, urine, semiquantitative Many [facility] mucus on urinalysis Many [facility] leukocyte esterase, urine, by dipstick Negative [facility] urobilinogen, urine, semiquantitative (dipstick) 2.0 [facility] [place]josefa Berrios nitrite, urine, semiquantitative Negative [facility] RBC, urine, dipstick Negative [facility] bilirubin, urine Negative [facility] ketones, urine, by test strip Negative [facility] glucose, urine, semiquantitative Trace [facility] protein, urine, semiquantitative (dipstick) Trace [facility] pH, urine, semiquantitative 5.5 [facility] specific gravity, urine 1.024 [facility] urine color [place] [facility] appearance, urine Ex. Turbid [facility] prostate specific antigen <0.010 [facility] hemoglobin A1C, blood, as % of total hemoglobin 6.8 % [facility] triglyceride, serum, fasting 63 mg/dL [facility] HDL cholesterol, serum 32 mg/dL [facility] LDL cholesterol, serum 38 mg/dL [facility] cholesterol, serum 83 mg/dL [facility] Estimated Glomerular Filtration Rate (calc) 72.3 mL/min/{1.73_ m2} [facility] protein, total, serum 6.8 g/dL [facility] albumin, serum 4.1 g/dL [facility] bilirubin, serum, total 1.6 mg/dL [facility] alkaline phosphatase, serum 87 1/L [facility] alanine aminotransferase (SGPT), serum 26 1/L [facility] aspartate aminotransferase (SGOT), serum 44 1/L [facility] calcium, serum 9.7 mg/dL [facility] blood glucose, fasting 122 mg/dL [facility] creatinine, serum 1.03 mg/dL [facility] urea nitrogen, blood 22 mg/dL [facility] carbon dioxide, serum, total 23 mmol/L [facility] chloride, serum 108 mmol/L [facility] potassium, serum 4.0 mmol/L [facility] sodium, serum 141 mmol/L [facility] platelet count 140 10*3/uL [facility] red blood cell distribution width 13.1 % [facility] mean corpuscular hemoglobin concentration, RBC 35.5 g/dL [facility] mean corpuscular hemoglobin, RBC 34.9 pg [facility] mean corpuscular volume, RBC 98.3 fL [facility] hematocrit, blood 44.9 % [facility] hemoglobin, blood 15.9 g/dL [facility] erythrocyte (RBC) count 4.57 10*6/mm3 [facility] monocyte count, blood 0.6 10*3/mm3 [facility] lymphocyte count, blood 1.7 10*3/mm3 [facility] monocytes as percent of blood leukocytes 9.8 % [facility] lymphocytes as percent of blood leukocytes 27.1 % [facility] leukocyte count, blood 6.2 10*3/mm3 [facility] alanine aminotransferase (SGPT), serum 30 1/L CRYSTAL JESENICK GALLERY OR MUSEUM ATTENDANT aspartate aminotransferase (SGOT), serum 28 1/L CRYSTAL JESENICK [employer] MUSEUM ATTENDANT triglyceride, serum, fasting 200 mg/dL CRYSTAL JESENICK G[employer] OR MUSEUM ATTENDANT HDL cholesterol, serum 19 mg/dL CRYSTAL JESENICK G[employer] OR MUSEUM ATTENDANT cholesterol, serum 100 mg/dL CRYSTAL JESENICK GALLERY OR MUSEUM ATTENDANT triglyceride, target level 150 mg/dL CRYSTAL JESENICK [employer] MUSEUM ATTENDANT HDL cholesterol, serum, target level 40 mg/dL CRYSTAL JESENICK GALL[employer] OR MUSEUM ATTENDANT LDL target level 70 mg/dL CRYSTAL JESENICK GALLERY OR MUSEUM ATTENDANT cholesterol, target level 200 mg/dL [facility]USE[facility] ATTENDANT calcium, serum 10.0 mg/dL [facility] 8.6-10.2 Normal [...] tablet active TAKE 1 TABLET TWICE DAILY [facility] sotalol 120 mg tablet active TAKE 1 TABLET TWICE DAILY [facility] metformin 750 mg tablet [...] tablet active TAKE 1 TABLET TWICE DAILY [facility] Eliquis 5 mg tablet [...] once a day Sabina Hunter VITAMIN [id number] UNIT ORAL TABLET completed Take 1 tablet [...] a day 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 Nancy Trevino NP CEPHALEXIN 500 MG ORAL [...] smoking, year quit 1981 Riley Lofton areri GALLERY OR MUSEUM ATTENDANT number of years as a smoker 10 years or m ore Riley Bonareri [employer] MUSEUM ATTENDANT smoking history, tot al pack/year 7.5 Riley Bonareri G[employer] MUSEUM ATTENDANT smoking history, tot al pack/day 1 pk Riley Bonareri GALLERY OR MUSEUM ATTENDANT cigarette use yes Riley Bonareri [employer]ERY OR MUSEUM ATTENDANT smoking status Former smoker Riley Adamere ri G[employer]ERY OR MUSEUM ATTENDANT personal history of marijuana use no Nancy Fendler GALLERY OR MUSEUM ATTENDANT drug use no Nancy Fendle r GALLERY OR MUSEUM ATTENDANT alcohol use no Nancy Fendle r GALLERY OR MUSEUM ATTENDANT passive cigarette sm daniel exposure yes Nancy Salazardler GALLERY OR MUSEUM ATTENDANT smoking, year quit 1981 Nancy Salazardler GALLERY OR MUSEUM ATTENDANT number of years as a smoker 10 years or m ore Nancy Salazardler GALLERY OR MUSEUM ATTENDANT smoking history, tot al pack/year 7.5 Nancy Slaazardler GALLERY OR MUSEUM ATTENDANT smoking history, tot al pack/day 1 pk Nancy Salazardler GALLERY OR MUSEUM ATTENDANT cigarette use yes Nancy Salazardl er GALLERY OR MUSEUM ATTENDANT smoking status Former smoker Nancy Salazar dler GALLERY OR MUSEUM ATTENDANT Exercise counseling Yes Nancy Salazardler GALLERY OR MUSEUM ATTENDANT personal history of marijuana use no Verah Bonareri GALLERY OR MUSEUM ATTENDANT drug use no Verah Bonareri GALLERY OR MUSEUM ATTENDANT alcohol use no Riley Bonareri GALLERY OR MUSEUM ATTENDANT passive cigarette sm daniel exposure yes Riley Bonareri GALLERY OR MUSEUM ATTENDANT smoking, year quit 1981 Riley Lofton areri GALLERY OR MUSEUM ATTENDANT number of years as a smoker 10 years or m ore Riley Bonareri GALLERY OR MUSEUM ATTENDANT smoking history, tot al pack/year 7.5 Riley Bonareri GALLERY OR MUSEUM ATTENDANT smoking history, tot al pack/day 1 pk Riley Bonareri GALLERY OR MUSEUM ATTENDANT cigarette use yes Verah Bonareri GALLERY OR MUSEUM ATTENDANT smoking status Former smoker Riley Wilder ri GALLERY OR MUSEUM ATTENDANT drug use no Francisco Hartmannri alcohol use [...] ewed - no changes required Riley Wilderadelina GALLERY OR MUSEUM ATTENDANT social history E&M Marital Statu s: E thnicity: Smoking History: Khadra farrell is a former smoker. Riley Adameleana GALLERY OR MUSEUM ATTENDANT drug use no Riley Wilderadelina GALLERY OR MUSEUM ATTENDANT alcohol use no Riley Wilderri GALLERY OR MUSEUM ATTENDANT smoking status Former smoker Riley Wilder adelina GALLERY OR MUSEUM ATTENDANT social history E&M Marital Statu s: E [...] exercise, f requency, days per week yes [facility] caffeine use, averag e drinks per day 0 /d [facility] passive cigarette sm daniel exposure yes [facility] smoking status Former smoker [facility] social history E&M Marital Statu s: E thnicity: Smoking History: P atient is a former smoker. Rangel Slaughter MD social history reviewed E&M revi ewed - no changes required Rangel Slaughter MD physical exercise, f requency, days per week yes [facility] caffeine use, averag e drinks per day 0 /d [facility] passive cigarette sm daniel exposure yes [facility] smoking status Former smoker [facility] smoking status Former smoker Effie ha [...] alcohol use, average drinks per day none Medora Hernandez alcohol use no Medora Hernandez caffeine use, averag e drinks per day no Arabella Hernandez drug use none Arabella Hernandez passive cigarette sm daniel exposure [facility] Former smoker Arabella Ingr social [...] no Sabina Hunter drug use none Sabina haromn passive cigarette sm daniel exposure yes Sabina [...] (inactive) Management Plan continue current therapy Nancy Tervino NP HRA, CV Assess/Plan, Angina (inactive) Management [...] Payer name Policy type / Coverage type [place] red [employer] party ID [facility] [id number] [place] Medicare [id number] ADVANCE DIRECTIVES Name Date DISCUSSED - NO DECISION MADE TREATMENT PLAN Date Name Performer [id number],C,ef 60 pro 239 Rangel Slaughter MD [id number],C,On Vit D supp lements Riley Pollock GALLERY OR MUSEUM ATTENDANT [id number],C, H is updated medication list for this problem includes: Atorvastatin 40 Mg Tablet (Atorvastatin) ..... Take 1 tablet every day Vascepa 1 Gram Capsule (Icosapent ethyl) ..... Take 2 capsules by mouth twice a day Riley Pollock GALLERY OR MUSEUM ATTENDANT [id number],C,M anaged per PCP. H is updated medication list for this problem includes: Metformin 750 Mg Tablet Extended Release 24 Hr (Metformin) ..... Take one tablet by mouth daily Losartan 50 Mg Tablet (Losartan) ..... Take 1 tablet twice daily Riley Pollock GALLERY OR MUSEUM ATTENDANT [id number],C, H is updated medication list for this problem includes: Atorvastatin 40 Mg Tablet (Atorvastatin) ..... Take 1 tablet every day Vascepa 1 Gram Capsule (Icosapent ethyl) ..... Take 2 capsules by mouth twice a day Riley Pollock GALLERY OR MUSEUM ATTENDANT [id number],C,E KG in office today V-paced. On OAC, denies having any bleeding issues/concerns. His updated medication list for this problem includes: Carvedilol 25 Mg Tablet (Carvedilol) ..... Take 1 tablet twice daily Sotalol 120 Mg Tablet (Sotalol) ..... Take 1 tablet twice daily Riley Pollock GALLERY OR MUSEUM ATTENDANT [id number],C,W ill repeat Echo in 07/2023 C ONCLUSIONS: [...] Take 1 tablet twice daily Riley Pollock [id number],C,R PM Avg BP 121/73, HR 81 H is updated medication list for this problem includes: Carvedilol 25 Mg Tablet (Carvedilol) ..... Take 1 tablet twice daily Sotalol 120 Mg Tablet (Sotalol) ..... Take 1 tablet twice daily Losartan 50 Mg Tablet (Losartan) ..... Take 1 tablet twice daily [id number],C,[facility]in [facility] [id number],C,D evice check 11/28/22 A T/AF [place]: 0.0% % Pacing: RA - 98.0% RV - 100.0% LV - 100.0% B attery 90% [facility] [id number],C, H is updated medication list for this problem includes: Carvedilol 25 Mg Tablet (Carvedilol) ..... Take 1 tablet twice daily Sotalol 120 Mg Tablet (Sotalol) ..... Take 1 tablet twice daily [facility] [id number],S, H is updated medication list for this problem includes: Atorvastatin 40 Mg Tablet (Atorvastatin) ..... Take 1 tablet every day Vascepa 1 Gram Capsule (Icosapent ethyl) ..... 2 capsule by mouth twice a day C HOL: 103 (04/17/2018) HDL: 26 (04/17/2018) CHOL (goal): 200 (10/09/2010) LDL (goal): 70 (10/09/2010) HDL (goal): 40 (10/09/2010) TG (goal): 150 (10/09/2010) Rangel Serotmac HUNTER [id number],S, Rangel Serot a [id number],S, n o angina. last cath 2018 grafts open Rangel Serotmac HUNTER [id number],B, Rangel Serot a [id number],S, n o recurrence. device interrogation 04/17/21 no AF, 17 mode switches, battery ok.\ Rangel Serotmac HUNTER [id number],S,too have suer gy Rangel Serotmac HUNTER [id number],B, Rangel Serot a [id number],S, fu zerot psa Rangel Serota [id number],S, Rangel Serot a [id number],C,74 Rangel Ser anamaria [id number],B,7 Rangel Sero ta [id number],S, r a set 80, biv 100 Rangel Serotmac HUNTER [id number],S, 9 Rangel Serota [id number],B, fu zerot psa Rangel Serota [id number],B, Rangel Serot a [id number],C, n eg uacr, neg hiv n eg sleep, neg aaa, ne ror n eg pft and tsh Rangel Serotmac HUNTER [id number],S, Rangel Serota [id number],B, c orredct with iv does not want colon Rangel Serotmac HUNTER [id number],S, Rangel Serot a [id number],B, Rangel Serot a [id number],S, e f 60 490 pro Rangel Serota [id number],B, 2 3 Rangel Serota [id number],S, Rangel Serota [id number],S, n o angina. last cath 2018 grafts open Rangel Serota [id number],S, n o angina. last cath 2018 grafts open Rangel Serota [id number],S, r a set 80, biv 100 Rangel Serota [id number],S,23 Rangel Ser anamaria [id number],S,fu zerot psa Rangel Serota [id number],S, Rangel Serot a [id number],B,9 Rangel Sero ta [id number],B,ra set 80, bi v 100 Rangel Serota [id number],S, n eg uacr, neg hiv n eg sleep, neg aaa, ne ror n eg pft and tsh Rangel Serota [id number],S,ef 60 490 pro Rangel Serota [id number],S, c orredct with iv does not want colon Rangel Serota [id number],B, H is updated medication list for this problem includes: Vascepa 1 Gram Capsule (Icosapent ethyl) ..... 2 capsule by mouth twice a day Atorvastatin 40 Mg Tablet (Atorvastatin) ..... Take 1 tablet once a day C HOL: 103 (04/17/2018) HDL: 26 (04/17/2018) CHOL (goal): 200 (10/09/2010) LDL (goal): 70 (10/09/2010) HDL (goal): 40 (10/09/2010) TG (goal): 150 (10/09/2010) Rangel Slaughter MD [id number],B, Rangel watts MD [id number],C,follows with PCP Nancy Martiniman GALLERY OR MUSEUM ATTENDANT [id number],C,last device c heck 04/2021 no afib Nancy Trevino GALLERY OR MUSEUM ATTENDANT [id number],C, l ast echo 11/2019 EF 65% diastolic dysfunction Nancy Trevino GALLERY OR MUSEUM ATTENDANT [id number],C,B P today 160/90. pt states that at home he runs 130's-140's Nancy Trevino GALLERY OR MUSEUM ATTENDANT [id number],C, l ast device check 04/17/2021 normal function, no AF. 17 mode switches, battery ok 2yrs, 1 month. Nancy Kesslersunny GALLERY OR MUSEUM ATTENDANT [id number],C,n o angina. last cath 2018 grafts open Nancy Kesslersunny GALLERY OR MUSEUM ATTENDANT [id number],C,09/2020 LFTs n ormal Nancy Kesslerr GALLERY OR MUSEUM ATTENDANT [id number],C,o n supplementation Nancy Kesslerr GALLERY OR MUSEUM ATTENDANT [id number],C,n o recurrence. device interrogation 04/17/21 no AF, 17 mode switches, battery ok. 2 yrs/1 month Nancy Trevino GALLERY OR MUSEUM ATTENDANT [id number],C,: chol 124, trig 214, HDL 28, LDL 53. pt states that he has not been taking vascepa Nancy Kesslersunny GALLERY OR MUSEUM ATTENDANT Take your medication s every day as [...] Breath, Palpitations, Dizziness, or Edema. Dinah Menon :[id number] Rangel Slaughter MD Cardiology: H is updated [...] N o angina. Will continue current medications Aaron Wooten MD Cardiology:ADD KLORC ON 10MEQ every [...] Nancy Trevino JOHNNIE Electrophysiology:see #1 Reji Trevino GALLERY OR MUSEUM ATTENDANT Electrophysiology:no recurrence n o new events on [...] with no bleeding issues/concerns s /p ppm [facility] Wilderadelina BLAIR Cardiology: e f 60 pro [...] pro 239 Rangel Slaughter MD Cardiology-seen with GALLERY OR MUSEUM ATTENDANT:On Vit D supplements Riley Pollock NP Cardiology-seen with GALLERY OR MUSEUM ATTENDANT: H is updated medication list for this problem includes: Atorvastatin 40 Mg Tablet (Atorvastatin) ..... Take 1 tablet every day Vascepa 1 Gram Capsule (Icosapent ethyl) ..... Take 2 capsules by mouth twice a day Riley Pollock NP Cardiology-seen with GALLERY OR MUSEUM ATTENDANT:Managed per PCP. H is updated medication list for this problem includes: Metformin 750 Mg Tablet Extended Release 24 Hr (Metformin) ..... Take one tablet by mouth daily Losartan 50 Mg Tablet (Losartan) ..... Take 1 tablet twice daily Riley Pollock NP Cardiology-seen with GALLERY OR MUSEUM ATTENDANT: H is updated medication list for this problem includes: Atorvastatin 40 Mg Tablet (Atorvastatin) ..... Take 1 tablet every day Vascepa 1 Gram Capsule (Icosapent ethyl) ..... Take 2 capsules by mouth twice a day Riley Pollock NP Cardiology-seen with GALLERY OR MUSEUM ATTENDANT:EKG in office today V-paced. On OAC, denies having any bleeding issues/concerns. His updated medication list for this problem includes: Carvedilol 25 Mg Tablet (Carvedilol) ..... Take 1 tablet twice daily Sotalol 120 Mg Tablet (Sotalol) ..... Take 1 tablet twice daily Riley Pollock NP Cardiology-seen with GALLERY OR MUSEUM ATTENDANT:Will repeat Echo in 07/2023 C ONCLUSIONS: Echo [...] twice daily Riley Pollock NP Cardiology-seen with GALLERY OR MUSEUM ATTENDANT:RPM Avg BP 121/73, HR 81 H is updated medication list for this problem includes: Carvedilol 25 Mg Tablet (Carvedilol) ..... Take 1 tablet twice daily Sotalol 120 Mg Tablet (Sotalol) ..... Take 1 tablet twice daily Losartan 50 Mg Tablet (Losartan) ..... Take 1 tablet twice daily Riley Pollock NP Cardiology-seen with GALLERY OR MUSEUM ATTENDANT:Patient is on statin Riley Pollock NP Cardiology-seen with GALLERY OR MUSEUM ATTENDANT:Device check 11/28/22 A T/AF [place]: 0.0% % Pacing: RA - 98.0% RV - 100.0% LV - 100.0% B attery 90% Riley Pollock NP Cardiology-seen with GALLERY OR MUSEUM ATTENDANT: H is updated medication list for this [...] pro Rangel Slaughter MD Cardiology: 2 3 Ragnel Slaughter MD Cardiology Rangel Slaughter MD Cardiology: [...] check 9/2 021 no afib Nancy Trevino GALLERY OR MUSEUM ATTENDANT Cardiology: l ast echo 11/2019 EF 65% diastolic dysfunction Nancy Trevino GALLERY OR MUSEUM ATTENDANT Cardiology:BP today 160/90. pt states that at home he runs 130's-140's Nancy Trevino GALLERY OR MUSEUM ATTENDANT Cardiology: l ast device check 04/17/2021 normal function, no AF. 17 mode switches, battery ok 2yrs, 1 month. Nancy Trevino GALLERY OR MUSEUM ATTENDANT Cardiology:no angina . last cath 2018 grafts [...] twice daily --gwen! universal coupon code: bin# [id number], pcn# [email or web address], grp# [email or web address], id# [id number] Atorvastatin Tab 40mg Tablet (Atorvastatin calcium) ..... [...] by mouth twice a day Effie Friedman GALLERY OR MUSEUM ATTENDANT Cardiology:last yvan ce check 09/27/2020 normal function, 100 % dependent RV and LV. Effie Friedman GALLERY OR MUSEUM ATTENDANT Cardiology Effie Friedman GALLERY OR MUSEUM ATTENDANT Cardiology: H is updated medication list for [...] MD Cardiology Rangel Slaughter MD Cardiology Rangel Sluaghter MD Cardiology: o ff amio now, and [...] MD Electrophysiology:Or ders: 9 9214 MOD Complex (CPT-65530) His updated medication list for this problem includes: Sotalol Hcl 120 Mg Oral Tablet (Sotalol hcl) ..... One tab. twice daily Metoprolol Tartrate 25 Mg Oral Tablet (Metoprolol tartrate) ..... One tab. twice daily Jesus Eric Electrophysiology:Or ders: F VC - 45655 (01383) F RC - 07894 (80364) D LCO - 24331 (53085) 9 9214 MOD Complex (CPT-32016) His updated medication list for this problem [...] ICD upgrade recommended. O rders: E KG (CPT-02869) 9 9214 MOD Complex (CPT-50251) His updated medication list for this problem includes: Sotalol Hcl 120 Mg Oral Tablet (Sotalol hcl) ..... One tab. twice daily Metoprolol Tartrate 25 Mg Oral Tablet (Metoprolol tartrate) ..... One tab. twice daily Jesus Eric Electrophysiology:Or ders: 9 9214 MOD Complex (CPT-02131) His updated medication list for this problem includes: Sotalol Hcl 120 Mg Oral Tablet (Sotalol hcl) ..... One tab. twice daily Metoprolol Tartrate 25 Mg Oral Tablet (Metoprolol tartrate) ..... One tab. twice daily Jesus Reyes Cardiology follow up :Orders: C ardiac Cath - L/R- [facility] (*) 9 9215 HIGH Complex (CPT-89821) Jesus Reyes Cardiology follow up :Seen acutely for documented VT on pacer check today. Plan for cardiac cath KELSEA and possible upgrade from BiV PPM to BiV ICD. Orders: C OMPREHENSIVE METABOLIC PANEL, W/EGFR (26296) P ROBNP, N TERMINAL (97355) C BC (H/H, RBC, INDICES, WBC, PLT) (1759) L IPID PANEL (7600) T HYROID PANEL WITH TSH, 3RD GENERATION (7444) P artial Thromboplastin Time, Activated (763) P ROTHROMBIN TIME WITH INR (8847) C ardiac Cath - L/R- [facility] (*) 9 9215 HIGH Complex (CPT-55005) His updated medication list for this problem includes: Sotalol Hcl 120 Mg Oral Tablet (Sotalol hcl) ..... One tab. twice daily Metoprolol Tartrate 25 Mg Oral Tablet (Metoprolol tartrate) ..... One tab. twice daily Jesus Reyes Cardiology follow up :Orders: C ardiac Cath - L/R- [facility] (*) 9 9215 HIGH Complex (CPT-88421) His updated medication list for this problem [...] Tablet (Atorvastatin calcium) ..... One tab. daily Ranegl Slaughter MD Cardiology: H is updated medication [...] MD Cardiology Follow u p:in sinus, had [id number] Rangel Slaughter MD Cardiology Follow u p: [...] p: O rders: A ortic Abdominal Ultrasound (CPT-97348) Rangel Slaughter MD Cardiology Follow u p [...] Slaughter MD EP:Orders: A ortic Abdominal Ultrasound (CPT-88089) Rosario Fay MD EP:Orders: C arotid Duplex Bilateral (CPT-80538) Rosario Fay MD EP:Labs Reviewed: H gBA1c: 5.7 (06/16/2015) Creat: 1.0 (12/14/2015) His updated medication list for this problem includes: Cozaar 25 Mg Tabs (Losartan potassium) ..... One tab. daily Glimepiride 2 Mg Tabs (Glimepiride) ..... Once daily Orders: S NOMED-CT: [id number] Current Medications Documented ([facility]-[id number]) C OMPREHENSIVE METABOLIC PANEL W/EGFR (43900) H EMOGLOBIN A1c (496) Rosario Fay MD EP:Orders: S NOMED-CT: [id number] Current Medications Documented ([facility]-[id number]) C OMPREHENSIVE METABOLIC PANEL W/EGFR (05152) L IPID PANEL (7600) Rosario Fay MD [...] Tabs (Atorvastatin calcium) ..... One tab. daily aRngel Slaughter MD Cardiology:CHOL: 154 .0 (06/16/2015) LDL: [...] Pulmonary Function Rangel Slaughter MD :1. LARGE [id number] LAR JOINT EFFUSION. 2 . TRICOMPARTMENTAL OSTEOARTHRITIS, [id number] AT MEDIAL FEMOROTIBIAL JOINT. 3 . INFRAPATELLAR LOOSE BODY. A preliminary report was provided at the time of dictation. T RANSCRIPTIONIST: PW2 Rangel Slaughter MD EP Faxed 06/12/15 1157 Rosario mullen MD EP Faxed 06/12/15 115 [...] Afib ablation. Orders: 9 9215 HIGH Complex (CPT-91479) Rosario Fay MD follow up Rangel Slaughter [...] % RCA stenosis: 99% proixmal, 80% distal. [facility] (12/19/2003) H gb: 15.9 (11/11/2010) HCT: 45.1 [...] % RCA stenosis: 99% proixmal, 80% distal. [facility] (12/19/2003) C arotid Doppler/Duplex: Mild plaque with [...] (11/30/2012) LDL: 70.8 (11/30/2012) T (11/30/2012) Rangel Slaughtre MD Follow up Rangel Slaughter MD Follow up: O rders: C omplete Echo (CPT-69368) Rangel Slaughter MD Follow up: O rders: C omplete Echo (CPT-64598) Rangel Slaughter MD Follow up: H is updated medication list for this problem includes: Altace 10 Mg Caps (Ramipril) ..... One tab. daily Sotalol Hcl 120 Mg Tabs (Sotalol hcl) ..... One tab. twice daily Orders: C omplete Echo (CPT-44165) Rangel Slaughter MD Follow up: O rders: C omplete Echo (CPT-96398) Rangel Slaughter MD Follow up: H is [...] reveiwe d: O rders: C omplete Echo (CPT-40842) Rangel Slaughter MD [employer]esk not reveiwe d: O rders: C omplete Echo (CPT-96005) Rangel Slaughter MD [employer] not reveiwe d: H is updated medication list for this problem includes: Cozaar 100 Mg Tabs (Losartan potassium) ..... One tab. daily Orders: C omplete Echo (CPT-41820) Rangel Slaughter MD [employer] not reveiwe d: O rders: C omplete Echo (CPT-67040) Rangel Slaughter MD [employer] not reveiwe d: O rders: C omplete Echo (CPT-76589) Rangel Slaughter MD [employer] not reveiwe d: [...] % RCA stenosis: 99% proixmal, 80% distal. [facility] (12/19/2003) H gb: 15.9 (11/11/2010) HCT: 47.7 [...] % RCA stenosis: 99% proixmal, 80% distal. [facility] (12/19/2003) C HOL: 88 (06/09/2012) LDL: 37 [...] ..... One tab. daily Orders: E KG (CPT-22283) BP today: 132/88 P rior BP: 159/75 [...] % RCA stenosis: 99% proixmal, 80% distal. [facility] (12/19/2003) C HOL: 88 (06/09/2012) LDL: 37 [...] Mg Tabs (Amlodipine-atorvastatin) ..... One tab. daily(changed 32) Niaspan 1000 Mg Tbcr (Niacin (antihyperlipidemic)) ..... [...] scintigraphic evidence of myocardial ischemia or scar. [facility] (01/04/2009) C ardiac Cath: EF - 60% M oderate hypokinesis of the anterolateral segment. N ormal left heart hemodynamics. % Left Main stenosis: 50% left main. % CX stenosis: 50% proximal. % 1st Diagonal stenosis: 80% proximal % LAD stenosis: 40% mid % RCA stenosis: 99% proixmal, 80% distal. [facility] (12/19/2003) B UN: 16 (09/05/2009) Creat: 1.07 [...] scintigraphic evidence of myocardial ischemia or scar. [facility] (01/04/2009) E chocardiogram: Patient is in atrial [...] % RCA stenosis: 99% proixmal, 80% distal. [facility] (12/19/2003) B UN: 16 (09/05/2009) Creat: 1.07 [...] scintigraphic evidence of myocardial ischemia or scar. [facility] (01/04/2009) C ardiac Cath: EF - 60% M oderate hypokinesis of the anterolateral segment. N ormal left heart hemodynamics. % Left Main stenosis: 50% left main. % CX stenosis: 50% proximal. % 1st Diagonal stenosis: 80% proximal % LAD stenosis: 40% mid % RCA stenosis: 99% proixmal, 80% distal. [facility] (12/19/2003) T SH: 1.60 (05/17/2009) T4 (total): 6.8 (05/17/2009) Rangel Slaughter MD contarolled afib wtih multaq Tim Slaughter MD contarolled af wti h multaq: H is updated medication [...] scintigraphic evidence of myocardial ischemia or scar. [facility] (01/04/2009) C ardiac Cath: EF - 60% M oderate hypokinesis of the anterolateral segment. N ormal left heart hemodynamics. % Left Main stenosis: 50% left main. % CX stenosis: 50% proximal. % 1st Diagonal stenosis: 80% proximal % LAD stenosis: 40% mid % RCA stenosis: 99% proixmal, 80% distal. [facility] (12/19/2003) T SH: 1.60 (05/17/2009) T4 (total): 6.8 (05/17/2009) Rangel Slaughter MD contarolled [facility] wti h multaq: H is updated medication [...] scintigraphic evidence of myocardial ischemia or scar. [facility] (01/04/2009) E chocardiogram: Normal LV size. Moderate concentric LVH. EF 55%. E/E` IS 6. No significant valvular abnormalities seen. [facility] (01/04/2009) C ardiac Cath: EF - 60% M oderate hypokinesis of the anterolateral segment. N ormal left heart hemodynamics. % Left Main stenosis: 50% left main. % CX stenosis: 50% proximal. % 1st Diagonal stenosis: 80% proximal % LAD stenosis: 40% mid % RCA stenosis: 99% proixmal, 80% distal. [facility] (12/19/2003) T SH: 1.60 (05/17/2009) T4 (total): [...] (03/15/2009) Orders: H olter Monitor 24 Hr (CPT-90914) Rangel Slaughter MD sotolol stopped due to [...] scintigraphic evidence of myocardial ischemia or scar. [facility] (01/04/2009) C ardiac Cath: EF - 60% M oderate hypokinesis of the anterolateral segment. N ormal left heart hemodynamics. % Left Main stenosis: 50% left main. % CX stenosis: 50% proximal. % 1st Diagonal stenosis: 80% proximal % LAD stenosis: 40% mid % RCA stenosis: 99% proixmal, 80% distal. [facility] (12/19/2003) Orders: H olter Monitor 24 Hr (CPT-72066) Rangel Slaughter MD sotolol stopped due to slow hr: H is updated medication list for this problem includes: Niaspan 1000 Mg Tbcr (Niacin (antihyperlipidemic)) ..... Two tabs. at bedtime Caduet 5-10 Mg Tabs (Amlodipine-atorvastatin) ..... One tab. daily BP today: 144/73 Prior BP: 135/73 (03/15/2009) Orders: H olter Monitor 24 Hr (CPT-12650) Rangel Slaughter MD sotolol stopped due to slow hr: O rders: H olter Monitor 24 Hr (CPT-01171) Rangel Slaughter MD sotolol stopped due to slow hr: H is updated medication list for this problem includes: Altace 10 Mg Caps (Ramipril) ..... One tab. daily Caduet 5-10 Mg Tabs (Amlodipine-atorvastatin) ..... One tab. daily Aspirin 325 Mg Tabs (Aspirin) ..... One tab daily BP today: 144/73 P rior BP: 135/73 (03/15/2009) Orders: H olter Monitor 24 Hr (CPT-56013) Rangel Slaughter MD sotolol stopped due to [...] scintigraphic evidence of myocardial ischemia or scar. [facility] (01/04/2009) C ardiac Cath: EF - 60% M oderate hypokinesis of the anterolateral segment. N ormal left heart hemodynamics. % Left Main stenosis: 50% left main. % CX stenosis: 50% proximal. % 1st Diagonal stenosis: 80% proximal % LAD stenosis: 40% mid % RCA stenosis: 99% proixmal, 80% distal. [facility] (12/19/2003) Orders: H olter Monitor 24 Hr (CPT-20586) Rangel Slaughter MD sotolol stopped due to slow hr: H is updated medication list for this problem includes: Altace 10 Mg Caps (Ramipril) ..... One tab. daily Aspirin 325 Mg Tabs (Aspirin) ..... One tab daily Multaq 400 Mg Tabs (Dronedarone hcl) ..... One tab with morning meal. one tab with evening meal. Orders: H olter Monitor 24 Hr (CPT-65650) Rangel Slaughter MD sotolol stopped due to slow hr: H is updated medication list for this problem includes: Aspirin 325 Mg Tabs (Aspirin) ..... One tab daily Multaq 400 Mg Tabs (Dronedarone hcl) ..... One tab with morning meal. one tab with evening meal. Orders: T HYROID PANEL WITH TSH, 3RD GENERATION (7444) H olter Monitor 24 Hr (CPT-89913) Rangel Slaughter MD afib will increase s otolol and reholter and fu: O rders: H olter Monitor 24 Hr (CPT-02424) Rangel Slaughter MD afib will increase s otolol and reholter and fu: H is updated medication list for this problem includes: Altace 10 Mg Caps (Ramipril) ..... One tab. daily Glimepiride 2 Mg Tabs (Glimepiride) ..... 1 tablet by mouth daily Aspirin 325 Mg Tabs (Aspirin) ..... One tab daily BP today: 135/73 Prior BP: 142/72 (02/01/2009) Orders: H olter Monitor 24 Hr (CPT-92783) Rangel Slaughter MD afib will increase s [...] scintigraphic evidence of myocardial ischemia or scar. [facility] (01/04/2009) C ardiac Cath: EF - 60% M oderate hypokinesis of the anterolateral segment. N ormal left heart hemodynamics. % Left Main stenosis: 50% left main. % CX stenosis: 50% proximal. % 1st Diagonal stenosis: 80% proximal % LAD stenosis: 40% mid % RCA stenosis: 99% proixmal, 80% distal. [facility] (12/19/2003) Orders: H olter Monitor 24 Hr (CPT-85698) Rangel Slaughter MD afib will increase s otolol and reholter and fu: H is updated medication list for this problem includes: Niaspan 1000 Mg Tbcr (Niacin (antihyperlipidemic)) ..... Two tabs. at bedtime Caduet 5-10 Mg Tabs (Amlodipine-atorvastatin) ..... One tab. daily BP today: 135/73 Prior BP: 142/72 (02/01/2009) Orders: H olter Monitor 24 Hr (CPT-21636) Rangel Slaughter MD afib will increase s otolol and reholter and fu: O rders: H olter Monitor 24 Hr (CPT-53702) Rangel Slaughter MD afib will increase s [...] scintigraphic evidence of myocardial ischemia or scar. [facility] (01/04/2009) C ardiac Cath: EF - 60% M oderate hypokinesis of the anterolateral segment. N ormal left heart hemodynamics. % Left Main stenosis: 50% left main. % CX stenosis: 50% proximal. % 1st Diagonal stenosis: 80% proximal % LAD stenosis: 40% mid % RCA stenosis: 99% proixmal, 80% distal. [facility] (12/19/2003) Orders: H olter Monitor 24 Hr (CPT-11484) Rangel Slaughter MD afib will increase s [...] (02/01/2009) Orders: H olter Monitor 24 Hr (CPT-45578) Rangel Slaughter MD afib will increase s otolol and reholter and fu: H is updated medication list for this problem includes: Altace 10 Mg Caps (Ramipril) ..... One tab. daily Aspirin 325 Mg Tabs (Aspirin) ..... One tab daily Sotalol Hcl 80 Mg Tabs (Sotalol hcl) ..... 1 tablet by mouth twice daily Orders: H olter Monitor 24 Hr (CPT-69713) Rangel Slaughter MD afib will increase s otolol and reholter and fu: H is updated medication list for this problem includes: Aspirin 325 Mg Tabs (Aspirin) ..... One tab daily Sotalol Hcl 80 Mg Tabs (Sotalol hcl) ..... 1 tablet by mouth twice daily Orders: H olter Monitor 24 Hr (CPT-43464) Rangel Slaughter MD paf stable will increase [...] scintigraphic evidence of myocardial ischemia or scar. [facility] (01/04/2009) C ardiac Cath: EF - 60% M oderate hypokinesis of the anterolateral segment. N ormal left heart hemodynamics. % Left Main stenosis: 50% left main. % CX stenosis: 50% proximal. % 1st Diagonal stenosis: 80% proximal % LAD stenosis: 40% mid % RCA stenosis: 99% proixmal, 80% distal. [facility] (12/19/2003) Orders: C omplete Echo (CPT-05906) Rangel Slaughter MD paf, stable will inc rease sotolol and repeat holter: H is updated medication list for this problem includes: Aspirin 325 Mg Tabs (Aspirin) ..... One tab daily Sotalol Hcl 80 Mg Tabs (Sotalol hcl) ..... 1/2 tablet by mouth twice daily Orders: H olter Monitor 24 Hr (CPT-63221) Rangel Slaughter MD paf, stable will inc [...] scintigraphic evidence of myocardial ischemia or scar. [facility] (01/04/2009) C ardiac Cath: EF - 60% M oderate hypokinesis of the anterolateral segment. N ormal left heart hemodynamics. % Left Main stenosis: 50% left main. % CX stenosis: 50% proximal. % 1st Diagonal stenosis: 80% proximal % LAD stenosis: 40% mid % RCA stenosis: 99% proixmal, 80% distal. [facility] (12/19/2003) Rangel Slaughter MD paf, stable will [...] race mitral regurgitation. T race tricuspid regurgitation. [facility] (12/01/2006) N uclear Stress Findings: The test is considered to be negative by ECG criteria. [facility] (02/20/2004) C ardiac Cath: EF - 60% M oderate hypokinesis of the anterolateral segment. N ormal left heart hemodynamics. % Left Main stenosis: 50% left main. % CX stenosis: 50% proximal. % 1st Diagonal stenosis: 80% proximal % LAD stenosis: 40% mid % RCA stenosis: 99% proixmal, 80% distal. [facility] (12/19/2003) Rangel Slaughter MD paf, won work [...] considered to be negative by ECG criteria. [facility] (02/20/2004) C ardiac Cath: EF - 60% M oderate hypokinesis of the anterolateral segment. N ormal left heart hemodynamics. % Left Main stenosis: 50% left main. % CX stenosis: 50% proximal. % 1st Diagonal stenosis: 80% proximal % LAD stenosis: 40% mid % RCA stenosis: 99% proixmal, 80% distal. [facility] (12/19/2003) Rangel Slaughter MD won grossman work up: H is updated medication list for this problem includes: Aspirin 325 Mg Tabs (Aspirin) ..... One tab daily Tenormin 25 Mg Tabs (Atenolol) ..... One tab. daily to prevent atrial fib. BP today: 158/80 Prior BP: 127/78 (12/14/2008) N uclear Stress Findings: The test is considered to be negative by ECG criteria. [facility] (02/20/2004) E chocardiogram: EF - 60%. M Ild distal septal hypokinesis of the left ventricle. M Ild diastolic dysfunction. T hickened mitral valve. T hickened aortic valve. T race mitral regurgitation. T race tricuspid regurgitation. [facility] (12/01/2006) C ardiac Cath: EF - 60% M oderate hypokinesis of the anterolateral segment. N ormal left heart hemodynamics. % Left Main stenosis: 50% left main. % CX stenosis: 50% proximal. % 1st Diagonal stenosis: 80% proximal % LAD stenosis: 40% mid % RCA stenosis: 99% proixmal, 80% distal. [facility] (12/19/2003) Orders: H olter Monitor 24 Hr (CPT-[id number]) Rangel Slaughter MD won grossman work up: [...] considered to be negative by ECG criteria. [facility] (02/20/2004) C ardiac Cath: EF - 60% M oderate hypokinesis of the anterolateral segment. N ormal left heart hemodynamics. % Left Main stenosis: 50% left main. % CX stenosis: 50% proximal. % 1st Diagonal stenosis: 80% proximal % LAD stenosis: 40% mid % RCA stenosis: 99% proixmal, 80% distal. [facility] (12/19/2003) Rangel Slaughter MD paf, won work [...] race mitral regurgitation. T race tricuspid regurgitation. [facility] (12/01/2006) N uclear Stress Findings: The test is considered to be negative by ECG criteria. [facility] (02/20/2004) C ardiac Cath: EF - 60% M oderate hypokinesis of the anterolateral segment. N ormal left heart hemodynamics. % Left Main stenosis: 50% left main. % CX stenosis: 50% proximal. % 1st Diagonal stenosis: 80% proximal % LAD stenosis: 40% mid % RCA stenosis: 99% proixmal, 80% distal. [facility] (12/19/2003) Rangel Slaughter MD stable cad: H [...] ..... One tab. daily Orders: Complete Echo (CPT-09813) BP today: 127/78 Prior BP: / () N uclear Stress Findings: The test is considered to be negative by ECG criteria. [facility] (02/20/2004) C ardiac Cath: EF - 60% M oderate hypokinesis of the anterolateral segment. N ormal left heart hemodynamics. % Left Main stenosis: 50% left main. % CX stenosis: 50% proximal. % 1st Diagonal stenosis: 80% proximal % LAD stenosis: 40% mid % RCA stenosis: 99% proixmal, 80% distal. [facility] (12/19/2003) Rangel Slaughter MD stable cad: H is updated medication list for this problem includes: Niaspan 1000 Mg Tbcr (Niacin (antihyperlipidemic)) ..... Two tabs. at bedtime Altace 10 Mg Caps (Ramipril) ..... One tab. daily Caduet 5-10 Mg Tabs (Amlodipine-atorvastatin) ..... One tab. daily Aspirin 81 Mg Tabs (Aspirin) ..... One tab. daily Orders: S tress Test - Nuclear (18480) BP today: 127/78 Prior BP: / () N uclear Stress Findings: The test is considered to be negative by ECG criteria. [facility] (02/20/2004) C ardiac Cath: EF - 60% M oderate hypokinesis of the anterolateral segment. N ormal left heart hemodynamics. % Left Main stenosis: 50% left main. % CX stenosis: 50% proximal. % 1st Diagonal stenosis: 80% proximal % LAD stenosis: 40% mid % RCA stenosis: 99% proixmal, 80% distal. [facility] (12/19/2003) Rangel Slaughter MD stable cad Rangel Slaughter MD stable cad: H is updated medication list for this problem includes: Altace 10 Mg Caps (Ramipril) ..... One tab. daily Caduet 5-10 Mg Tabs (Amlodipine-atorvastatin) ..... One tab. daily Aspirin 81 Mg Tabs (Aspirin) ..... One tab. daily Orders: E KG (CPT-47371) BP today: 127/78 Rangel Slaughter MD Date [...] TOTAL IRON BINDING CAPACITY FERRITIN DLCO - 51281 FRC - 80534 FVC - 07439 MAGNESIUM Cardiac Cath - L/R- [facility] PROTHROMBIN [...] Duplex Bilat eral Complete Echo DLCO - 92725 FRC - 75771 FVC - 99913 X-Ray, Chest, PA & L ateral DLCO - 08042 FRC - 32486 FVC - 85384 THYROID PANEL WITH T SH, 3RD GENERATION COMPREHENSIVE METABO LIC PANEL W/EGFR DLCO - 28788 FRC - 51398 FVC - 43070 Sleep Study Home X-Ray, Chest, PA & [...] Rangel Slaughter MD INTERROGATION REMOTE </90 D SMOKING PIPE LINER REVIEW completed Pacemaker Interrogation, Remote (Prof) Rangel Slaughter MD INTERROGATION EVAL REMOTE </90 D 1/2/ELECTRIC DEICER INSPECTOR LEAD P completed ICM Interrogation, Remote (Prof) [...] Rangel Serota MD INTERROGATION REMOTE </90 D SMOKING PIPE LINER REVIEW completed Pacemaker Interrogation, Remote (Prof) Rangel Serota INTERROGATION EVAL REMOTE </90 D 1/2/ELECTRIC DEICER INSPECTOR LEAD P completed ICM Interrogation, Remote (Prof) [...] Rangel Serota MD INTERROGATION REMOTE </90 D SMOKING PIPE LINER REVIEW completed Pacemaker Interrogation, Remote (Prof) Rangel Serota MD INTERROGATION EVAL REMOTE </90 D 1/2/ELECTRIC DEICER INSPECTOR LEAD P completed ICM Interrogation, Remote (Prof) [...] Rangel Slaughter MD INTERROGATION REMOTE </90 D SMOKING PIPE LINER REVIEW completed Pacemaker Interrogation, Remote (Prof) Rangel Slaughter MD INTERROGATION EVAL REMOTE </90 D 1/2/ELECTRIC DEICER INSPECTOR LEAD P completed FVC / MVV - 22598 Sacheyanne guillermo MD completed FRC - 33669 Rosario craven MD completed SpO2 w/o 6min walk/titration Rosario Fay MD completed DLCO - 03860 Rosario craven MD completed EKG Rosario craven [...] Rangel Slaughter MD INTERROGATION REMOTE </90 D SMOKING PIPE LINER REVIEW completed Pacemaker Interrogation, Remote (Prof) Rangel Slaughter MD INTERROGATION EVAL REMOTE </90 D 1/2/ELECTRIC DEICER INSPECTOR LEAD P completed Regadenoson, 4 units Rangel [...] Rangel Slaughter MD INTERROGATION REMOTE </90 D SMOKING PIPE LINER REVIEW completed Pacemaker Interrogation, Remote (Prof) Rangel Slaughter MD INTERROGATION EVAL REMOTE </90 D 1/2/ELECTRIC DEICER INSPECTOR LEAD P completed ICM Interrogation, Remote (Prof) [...] Rangel Slaughter MD INTERROGATION REMOTE </90 D SMOKING PIPE LINER REVIEW completed Pacemaker Interrogation, Remote (Prof) Rangel Slaughter MD INTERROGATION EVAL REMOTE </90 D 1/2/ELECTRIC DEICER INSPECTOR LEAD P completed ICM Interrogation, Remote (Prof) [...] Rangel Slaughter MD INTERROGATION REMOTE </90 D SMOKING PIPE LINER REVIEW completed Pacemaker Interrogation, Remote (Prof) Rangel Slaughter MD INTERROGATION EVAL REMOTE </90 D 1/2/ELECTRIC DEICER INSPECTOR LEAD P completed ICM Interrogation, Remote (Prof) [...] Rangel Slaughter MD INTERROGATION REMOTE </90 D SMOKING PIPE LINER REVIEW completed Pacemaker Interrogation, Remote (Prof) Rangel Slaughter MD INTERROGATION EVAL REMOTE </90 D 1/2/ELECTRIC DEICER INSPECTOR LEAD P completed SNOMED-CT: [id number] Current Medications Documented Rangel Slaughter MD completed [...] Rangel Slaughter MD INTERROGATION REMOTE </90 D SMOKING PIPE LINER REVIEW completed Pacemaker Interrogation, Remote (Prof) Rangel Slaughter MD INTERROGATION EVAL REMOTE </90 D 1/2/ELECTRIC DEICER INSPECTOR LEAD P completed ICM Interrogation, Remote (Prof) [...] REMOTE </30 D TECH REVIEW completed SNOMED-CT: 10018161 Physical Exam, Performed: Pulse Exam of Foot Rosario Fay MD completed EKG Rosario craven MD completed SNOMED-CT: 085484847406546 Current Medications Documented Rosario Fay MD completed FVC - 45434 Rosario craven MD completed FRC - 55341 Rosario craven MD completed DLCO - 36328 Rosario craven MD completed ICM Interrogation, Remote (Prof) Rangel Slaughter MD INTERROGATION EVAL REMOTE </30 D CV MNTR SYS completed Pacemaker Interrogation, Remote (Tech) Rangel Slaughter MD INTERROGATION REMOTE </90 D SMOKING PIPE LINER REVIEW completed Pacemaker Interrogation, Remote (Prof) Rangel Slaughter MD INTERROGATION EVAL REMOTE </90 D 1/2/ELECTRIC DEICER INSPECTOR LEAD P completed ICM Interrogation, Remote (Prof) [...] Rangel Slaughter MD INTERROGATION REMOTE </90 D SMOKING PIPE LINER REVIEW completed Pacemaker Interrogation, Remote (Prof) Rangel Slaughter MD INTERROGATION EVAL REMOTE </90 D 1/2/ELECTRIC DEICER INSPECTOR LEAD P completed ICM Interrogation, Remote (Prof) [...] guillermo MD in 6 months completed SNOMED-CT: 557291296 Smoking Cessation Counseling Rosario Fay MD completed SNOMED-CT: 96548184 Physical Exam, Performed: Pulse Exam of Foot Saulius Kalvaitis MD completed EKG Rosario craven MD completed SNOMED-CT: 659143940332406 Current Medications Documented Rosario Fay MD completed ICM Interrogation, Remote (Prof) Rangel Slaughter MD INTERROGATION EVAL REMOTE </30 D CV MNTR SYS completed ICM Interrogation, Remote (Tech) Rangel Slaughter MD INTERROGATION EVAL REMOTE </30 D TECH REVIEW completed SNOMED-CT: 14433390 Physical Exam, Performed: Pulse Exam of Foot Rangel Slaughter MD completed SNOMED-CT: 409996095680345 Current Medications Documented Rangel Slaughter MD completed ICM Interrogation, Remote (Prof) Rangel Slaughter MD INTERROGATION EVAL REMOTE </30 D CV MNTR SYS completed Pacemaker Interrogation, Remote (Tech) Rangel Slaughter MD INTERROGATION REMOTE </90 D SMOKING PIPE LINER REVIEW completed Pacemaker Interrogation, Remote (Prof) Rangel Slaughter MD INTERROGATION EVAL REMOTE </90 D 1/2/ELECTRIC DEICER INSPECTOR LEAD P completed ICM Interrogation, Remote (Prof) Rangel Slaughter MD INTERROGATION EVAL REMOTE </30 D CV MNTR SYS completed ICM Interrogation, Remote (Tech) Rangel Slaughter MD INTERROGATION EVAL REMOTE </30 D TECH REVIEW completed FVC - 66310 Rosario craven MD completed FRC - 73146 Rosario craven MD completed DLCO - 72563 Rosario craven MD completed Schedule Followup Rosario guillermo MD 3 months completed SNOMED-CT: 463102433 Smoking Cessation Counseling Rosario Fay MD completed SNOMED-CT: 43067964 Physical Exam, Performed: Pulse Exam of Foot Rosario Fay MD completed EKG Rosario craven MD completed SNOMED-CT: 814835208355447 Current Medications Documented Rosario Fay MD completed ICM Interrogation, Remote (Prof) Rangel Slaughter MD INTERROGATION EVAL REMOTE </30 D CV MNTR SYS completed ICM Interrogation, Remote (Tech) Rangel Slaughter MD INTERROGATION EVAL REMOTE </30 D TECH REVIEW completed Pacemaker Interrogation, Remote (Tech) Rangel Slaughter MD INTERROGATION REMOTE </90 D SMOKING PIPE LINER REVIEW completed Pacemaker Interrogation, Remote (Prof) Rangel Slaughter MD INTERROGATION EVAL REMOTE </90 D 1/2/ELECTRIC DEICER INSPECTOR LEAD P completed Schedule Followup Rosario guillermo MD 3 months completed SNOMED-CT: 419436782 Smoking Cessation Counseling Rosario Fay MD completed SNOMED-CT: 54826220 Physical Exam, Performed: Pulse Exam of Foot Rosario Fay MD completed EKG Rosario craven MD completed SNOMED-CT: 006546864315167 Current Medications Documented Rosario Fay MD completed ICM Interrogation, Remote (Prof) Rangel Slaughter MD INTERROGATION EVAL REMOTE </30 D CV MNTR SYS completed ICM Interrogation, Remote (Tech) Rangel Slaughter MD INTERROGATION EVAL REMOTE </30 D TECH REVIEW completed Schedule Followup Rosario guillermo MD 3/4 weeks completed SNOMED-CT: 30904083 Physical Exam, Performed: Pulse Exam of Foot Rosario Fay MD completed SNOMED-CT: 909355104 Smoking Cessation Counseling Rosario Fay MD completed EKG Rosario craven MD completed SNOMED-CT: 060932735555564 Current Medications Documented Rosario Fay MD completed SNOMED-CT: 615259453912061 Current Medications Documented Rangel Slaughter MD completed SNOMED-CT: 410437439 Smoking Cessation Counseling Rosario Fay MD completed SNOMED-CT: 22685291 Physical Exam, Performed: Pulse Exam of Foot Rosario Fay MD completed Schedule Followup ulius Kris guillermo MD fu in [place] next thursday completed EKG Rosario craven MD completed SNOMED-CT: 351328685692521 Current Medications Documented Rosario Fay MD completed ICM Interrogation, Remote (Prof) Rangel Slaughter MD INTERROGATION EVAL REMOTE </30 D CV MNTR SYS completed ICM Interrogation, Remote (Tech) Rangel Slaughter MD INTERROGATION EVAL REMOTE </30 D TECH REVIEW completed FVC - 09724 Rangel Slaughter MD complet ed FRC - 14838 Rangel Slaughter MD complet ed DLCO - 67019 Rangel Slaughter MD comple tanja ICM Interrogation, Remote (Prof) Rangel Slaughter MD INTERROGATION EVAL REMOTE </30 D CV MNTR SYS completed Pacemaker Interrogation, Remote (Tech) Rangel Slaughter MD INTERROGATION REMOTE </90 D SMOKING PIPE LINER REVIEW completed Pacemaker Interrogation, Remote (Prof) Rangel Slaughter MD INTERROGATION EVAL REMOTE </90 D 1/2/ELECTRIC DEICER INSPECTOR LEAD P completed EKG Rosario craven MD [...] (Tech) Rangel Serota INTERROGATION REMOTE </90 D SMOKING PIPE LINER REVIEW completed Pacemaker Interrogation, Remote (Prof) Rangel Serota INTERROGATION EVAL REMOTE </90 D 1/2/ELECTRIC DEICER INSPECTOR LEAD P completed ICM Interrogation, Remote (Prof) [...] Rangel Serotmac HUNTER INTERROGATION REMOTE </90 D SMOKING PIPE LINER REVIEW completed Pacemaker Interrogation, Remote (Prof) Rangel Serotmac HUNTER INTERROGATION EVAL REMOTE </90 D 1/2/ELECTRIC DEICER INSPECTOR LEAD P completed ICM Interrogation, Remote (Prof) [...] (Tech) Rangel Serota INTERROGATION REMOTE </90 D SMOKING PIPE LINER REVIEW completed Pacemaker Interrogation, Remote (Prof) Rangel Serota INTERROGATION EVAL REMOTE </90 D 1/2/ELECTRIC DEICER INSPECTOR LEAD P completed ICM Interrogation, Remote (Prof) Rangel Serota INTERROGATION EVAL REMOTE </30 D CV MNTR SYS completed ICM Interrogation, Remote (Tech) Rangel Serota INTERROGATION EVAL REMOTE </30 D TECH REVIEW completed EKG Rosario craven MD completed ICM Interrogation, Remote (Prof) Rangel Serotmac HUNTER INTERROGATION EVAL REMOTE </30 D CV MNTR SYS completed Pacemaker Interrogation, Remote (Tech) Rangel Serota INTERROGATION REMOTE </90 D SMOKING PIPE LINER REVIEW completed Pacemaker Interrogation, Remote (Prof) Rangel Serota INTERROGATION EVAL REMOTE </90 D 1/2/ELECTRIC DEICER INSPECTOR LEAD P completed ICM Interrogation, Remote (Prof) Rangel Serotmac HUNTER INTERROGATION EVAL REMOTE </30 D CV MNTR SYS completed Pacemaker Interrogation, Remote (Tech) Rangel Serotmac HUNTER INTERROGATION REMOTE </90 D SMOKING PIPE LINER REVIEW completed Pacemaker Interrogation, Remote (Prof) Rangel Serota INTERROGATION EVAL REMOTE </90 D 1/2/ELECTRIC DEICER INSPECTOR LEAD P completed ICM Interrogation, Remote (Prof) [...] (Tech) Rangel Serota INTERROGATION REMOTE </90 D SMOKING PIPE LINER REVIEW completed Pacemaker Interrogation, Remote (Prof) Rangel Serota INTERROGATION EVAL REMOTE </90 D 1/2/ELECTRIC DEICER INSPECTOR LEAD P completed ICM Interrogation, Remote (Prof) [...] Rangel Slaughter MD INTERROGATION REMOTE </90 D SMOKING PIPE LINER REVIEW completed AICD Interrogation, Remote (Prof) Rangel [...] Fay MD PROGRM EVAL IMPLANTABLE IN PRSN ELECTRIC DEICER INSPECTOR LD CARD/DFB completed TI, OPTIVOL, ICM Interrogation [...]
--- OUTSIDE RECORDS SUMMARY | 2024-11-28 19:58 | XMS_ITS | Clinical Summary ---
Author Organization [facility] Facility Address [address] [address] Care Team Providers Care Mud Jack Nozzleman Name Role Phone Gege Jackson MD Primary Care Provider [phone] Medications Cholecalciferol 50 MCG (1999) capsule Take [...] age to complete this topic Insurance Medicare [facility] Care Teams Mud Jack Nozzleman Relationship Specialty Start Date End Date Gege Jackson MD [address], [address] [place] [address] PCP - General Internal Medicine 03/12/21
--- OUTSIDE RECORDS SUMMARY | 2024-11-28 19:58 | XMS_ITS | Continuity of Care Document ---
Author Organization [facility] Address [address] [place] [address] Phone Care Team Providers Care Heavy Duty Custodian Name Role Phone Judie Hoang Unavailable Unavailable Procedures Procedure Date Office/outpatient Visit, Est Dilated Retinal Exam W Interpretation De Eye Exam & Treatment Dilated Retinal Exam W Interpretation De Office/outpatient Visit, Est Dilated Retinal Exam W Interpretation De Eye Exam & Treatment Advance Directives Directive Yes / No Effective Date File Name No Information Encounters Encounter Description Practice Location Reason(s) For Visit Diagnoses Date Provider Providers Copied on Encounter Office/outpat ient Visit, [facility], [address] [place] [address] [address], [place], [place], [id number], [place] tel:[phone] [facility] No Information Oct-2 3-201 0 Natalya Dimas. [address] , [address], [place], [place], [facility], [place]. tel:[phone] [facility], [address], [place], [place], [id number], [place] tel:[phone] [facility] No Information Oct-3 1-200 9 Natalya Dimas. [address] , [address], [place], [address], [place]. tel:[phone] Office/outpat ient Visit, [facility], [address] [place] [address] [address], [place], [place], [id number], [place] tel:[phone] [facility] No Information Oct-2 8-200 8 Natalya Judie. [address] , [address], [place], [address], . tel:[phone] [facility], [address], [place], [place], [id number], [place] tel:[phone] [facility] No Information Oct-2 7-200 7 Natalya Judie. [address] , [address], [place], [address], [place]. tel:[phone] Family History Family Member Type Diagnosis Age At Onset No Information Payers Payer name Insurance type Covered alliance party ID Authoriza tion(s) [place] [id number] [place] [id number] Social History Type Description Quantity Date Captured [...]
--- OUTSIDE RECORDS SUMMARY | 2024-11-28 19:58 | XMS_ITS | Encounter Summary ---
Author Organization [facility] Address [address] [place] [address] Care Team Providers Care Envelope Fold Operator Name Role Phone Gege Jackson MD Primary Care Provider Encounter Details Date Type Department Care Team (Late st Contact Info) Description 07/19/2020 Lab Requisition [facility] DermPath Lab [address] [place] [id number] Jose Manuel Perea MD [address] [place] [address] Social History Tobacco Use Types Packs/Day Years Used Date Smoking Tobacco: Never Assessed Sex and Gender Information Value Date Recorded Sex Assigned at Not on file Legal Sex Male 5:47 PM CROSS ENTERPRISE INTEGRATOR Gender Identity Not on file Sexual Orientation Not on file documented as of this encounter Plan of Treatment Not on file documented as of this encounter Procedures Procedure Name Priority Date/Time Associated Diagnosis Comments DERMATOPATHOLOGY Routine 07/18/2020 12:0 0 AM CROSS ENTERPRISE INTEGRATOR documented in this encounter Results * DERMATOPATHOLOGY (07/18/2020 12:00 AM CROSS ENTERPRISE INTEGRATOR) Case Report Dermatopathology Report Case: [id number] Authorizing Provider: Jose Manuel Perea MD Collected: 07/18/2020 12:00 AM Ordering Location: [facility] Derm[facility] Lab Received: 07/19/2020 11:28 AM Pathologist: Osiel Rangel MD Specimen: Skin, dorsal right wrist 0 4:03 PM CROSS ENTERPRISE INTEGRATOR DERMATOPATHOLOGY LABORATORY Final Diagnosis Specimen A. 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 DERMATOPATHOLOGY LABORATORY Clinical History R/O SCC. Check margins. 0 4:[address] [facility] DERMATOPATHOLOGY LABORATORY Gross Description Specimen A: Received is one formalin filled container labeled with the patient's name and designated dorsal right wrist. The specimen consists of a curettage and desiccation biopsy measuring [id number]. The margin is inked green. Jar 0. 0 4:[address] [facility] DERMATOPATHOLOGY LABORATORY Microscopic Description Specimen A. SKIN, dorsal right wrist: Sections reveal parakeratosis, acanthosis and keratinocyte dysmaturation which is most prominent in the lower epidermis. Focal nests are present in the dermis. This lesion is not present at the sampled margin of the specimen. 0 4:[address] [facility] DERMATOPATHOLOGY LABORATORY Disclaimer An external and internal positive and negative controls are appropriate for the histochemical, immunohistochemical and immunofluorescence stain(s) in this case (if any), except where stated explicitly. The performance characteristics of the stain(s) cited in this report were developed and its performance characteristic determined by the Dermatopathology Laboratory at [facility], directed by Dr. Odessa Rangel. These tests need not be, and therefore are not, approved by the [place] Food and Drug Administration. The tests are used for clinical purposes. Billing Codes Specimen Charges Stain Charges 92242 1 0 4:[address] [facility] DERMATOPATHOLOGY LABORATORY Embedded Images 0 4:[address] [facility] DERMATOPATHOLOGY LABORATORY Pathology/Cytolog y TISSUE SPECIMEN FROM SKIN / Unknown 07/18/2020 07/19/2020 11:28 AM CROSS ENTERPRISE INTEGRATOR Jose Manuel Perea MD LAB - PATHOLOGY/CYTOLOGY ORD ERABLES Final Result DERMATOPATHOLOGY LABORATORY [facility] - Department of Dermatology [address], [address] [phone] documented in this encounter Visit Diagnoses Not on filedocumented in this encounter Additional Health Concerns Infection Onset Date Last Indicated Resolved Time COVID-19 Under Investigation 08/26/2024 08/26/2024 08/26/2024 11:01 PM CROSS ENTERPRISE INTEGRATOR documented as of this encounter Care Teams Envelope Fold Operator Relationship Specialty Start Date End Date Gege Jackson MD [address] [address] PCP - General Internal Medicine 08/26/24 documented as of this encounter
--- OUTSIDE RECORDS SUMMARY | 2024-11-28 19:58 | XMS_ITS | Referral Summary ---
Author Organization [facility] Building [facility] Address [address] [place] [address] Care Team Providers Care Waist Cutter Name Role Phone Ayo Jackson MD Primary Care Provide r Garrison Mary MD Unavailable [phone] Allergies Active Allergy Reactions Criticality Noted Date [...] monitoring Assessment & Plan (07/15/2021 3:48 PM SENIOR NET SOFTWARE ENGINEER): Parathyroid hormone level, call with results, consider referral to Head and Neck surgery at [facility] Social History Tobacco Use Types [...] on file Legal Sex Male 6:41 PM SENIOR NET SOFTWARE ENGINEER Gender Identity Not on file Sexual Orientation Not on file Last Filed Vital Signs Vital Sign Reading Time Taken Comments Blood Pressure 124/76 07/08/2022 7:43 AM SENIOR NET SOFTWARE ENGINEER Pulse 79 07/08/2022 7:43 AM SENIOR NET SOFTWARE ENGINEER Temperature 36.2 C (97.2 F) 07/08/2022 7:43 AM SENIOR NET SOFTWARE ENGINEER Respiratory Rate 16 07/08/2022 7:43 AM SENIOR NET SOFTWARE ENGINEER Oxygen Saturation 94% 07/08/2022 7:43 AM SENIOR NET SOFTWARE ENGINEER Inhaled Oxygen Concentration - - Weight 82.1 kg (181 lb) 07/07/2022 7:13 AM SENIOR NET SOFTWARE ENGINEER Height 185.4 cm (6' 1 ) 07/07/2022 7:13 AM SENIOR NET SOFTWARE ENGINEER Body Mass Index 23.88 07/07/2022 7:13 AM SENIOR NET SOFTWARE ENGINEER Plan of Treatment Not on file Medical Devices Implanted Type Area Machine Pecan Gatherer Device Identifier Shelf Expiration Date Model / Serial / Lot [facility] [employer] Sls-Clip Ligate Triangular Wire Leslee Groove Small [employer] Clip Latex Free [id number] - [id number] Implanted:Qty: 3 on 07/07/2022 by Gavin Sommer MD at [facility] [employer] [id number] / / Insurance MEDICARE [facility] MEDICARE [facility] MEDICARE [facility] Advance Directives For more information, please contact: [phone] * Full Code (Latest Code Status on File) Date Activated Date Inactivated Comments 07/07/2022 12:53 PM 07/08/2022 3:25 PM Care Teams Waist Cutter Relationship Specialty Start Date End Date Ayo Jackson MD [address] [address] PCP - General Internal Medicine 05/08/21 Garrison Mary MD [address] [address] Consulting Physician Otolaryngology 11/05/21
--- OUTSIDE RECORDS SUMMARY | 2024-11-28 19:58 | XMS_ITS | Clinical Summary ---
Author Organization [facility] Medical Office Building B Address [address] [place] [address] Care Team Providers Care Vp Human Resources Name Role Phone Ayo Jackson MD Primary Care Provide r Garrison Mary MD Unavailable [phone] Allergies Active Allergy Reactions Criticality Noted Date [...] monitoring Assessment & Plan (07/15/2021 3:48 PM FREIGHT TEAM ASSOCIATE): Parathyroid hormone level, call with results, consider referral to Head and Neck surgery at [facility] Surgical History Surgery Date Site/Laterality [...] on file Legal Sex Male 6:41 PM FREIGHT TEAM ASSOCIATE Gender Identity Not on file Sexual Orientation Not on file Obstetrics History Last Filed Vital Signs Vital Sign Reading Time Taken Comments Blood Pressure 124/76 07/08/2022 7:43 AM FREIGHT TEAM ASSOCIATE Pulse 79 07/08/2022 7:43 AM FREIGHT TEAM ASSOCIATE Temperature 36.2 C (97.2 F) 07/08/2022 7:43 AM FREIGHT TEAM ASSOCIATE Respiratory Rate 16 07/08/2022 7:43 AM FREIGHT TEAM ASSOCIATE Oxygen Saturation 94% 07/08/2022 7:43 AM FREIGHT TEAM ASSOCIATE Inhaled Oxygen Concentration - - Weight 82.1 kg (181 lb) 07/07/2022 7:13 AM FREIGHT TEAM ASSOCIATE Height 185.4 cm (6' 1 ) 07/07/2022 7:13 AM FREIGHT TEAM ASSOCIATE Body Mass Index 23.88 07/07/2022 7:13 AM FREIGHT TEAM ASSOCIATE Plan of Treatment Health Maintenance Due Date [...] 02/12/2022, 02/2018 Medical Devices Implanted Type Area Retail Wireless Sales Consultant Device Identifier Shelf Expiration Date Model / Serial / Lot General [employer] Sls-Clip Ligate Triangular Wire Leslee Groove Small [employer] Clip Latex Free [id number] - [id number] Implanted:Qty: 3 on 07/07/2022 by Gavin Sommer MD at [facility] [employer] [id number] / / Insurance MEDICARE [facility] MEDICARE [facility] MEDICARE [facility] Advance Directives For more information, please contact: [phone] * Full Code (Latest Code Status on File) Date Activated Date Inactivated Comments 07/07/2022 12:53 PM 07/08/2022 3:25 PM Care Teams Vp Human Resources Relationship Specialty Start Date End Date Ayo Jackson MD [address] [facility] [address] [place] [address] PCP - General Internal Medicine 05/08/21 Garrison Mary MD [address] [facility] [address] [place] [address] Consulting Physician Otolaryngology 11/05/21
--- OUTSIDE RECORDS SUMMARY | 2024-11-28 19:58 | XMS_ITS | Clinical Summary ---
Author Organization [facility] Address [address] [place] [address] Care Team Providers Care Yarn Comber Name Role Phone Gege Jackson MD Primary [...] ORAL) Take by mouth. Activ e Fish Oil-[place]-3 Fatty Acids 360-1,200 mg Capsule Take 1 Capsule by mouth. Active chlorthalidone (HYGROTON) 25 mg tablet Take 25 mg by mouth daily. Active magnesium oxide 400 mg magnesium Tablet magnesium 400 mg once daily Active gsaxh-7-bwt-epa -dpa-fish oil 1,050-1,200 mg Capsule [place] 3 with Fish Oil 1200mg 1 Daily [...] Comments Blood Pressure 123/78 08/05/2024 11:41 AM MANAGER PAPER Pulse 76 08/05/2024 11:41 AM MANAGER PAPER Temperature 36.9 C (98.4 F) 08/05/2024 11:41 AM MANAGER PAPER Respiratory Rate 15 08/05/2024 11:4 1 AM MANAGER PAPER Oxygen Saturation 96% 08/05/2024 11: 41 AM MANAGER PAPER Inhaled Oxygen Concentration - - Weight 81.5 kg (179 lb 9.6 oz) 08/05/2024 11:41 AM MANAGER PAPER Remberto stated that this is the correct weight Height 182.9 cm (6') 08/05/2024 11:41 AM MANAGER PAPER Body Mass Index 24.36 08/05/2024 11:41 AM MANAGER PAPER Plan of Treatment Health Maintenance Due Date [...] exists Insurance MEDICARE PART A AND B [facility] SUPP MEDICARE PART A AND B [facility] SUPP Care Teams Yarn Comber Relationship Specialty Start Date End Date Gege Jackson MD PCP - General Internal Medicine 09/17/18
--- OUTSIDE RECORDS SUMMARY | 2024-11-28 19:58 | XMS_ITS | Continuity of Care Document ---
Author Name [facility] Organization [facility] Care Team Providers Care Back Tender Fourdrinier Name Role Phone [facility] Unavailable Unavailable Problems Combined list of problems from Department of Defense and [facility] Affairs facilities. It does not include entries that were removed or entered in error. Problem Status Onset Date Problem Type Date of Resolution Comments Source Anxiety Active Condition [facility] Atrial fibrillation Active Condition Jul 16, 2010 Entered By: THOMAS CORMIER Comment[facility] Entered By: THOMAS CORMIER Comment: had pacemaker put in 2012 [facility] Benign essential hypertension (SNOMED CT 5655217) Active Condition [facility] Chronic kidney disease Active Condition [facility] Coronary atherosclerosis (SNOMED CT 323909261) Active Condition Sep 12, 2004 Entered By: THOMAS CORMIER Comment: 6 vessel CABG [facility] Exposure to potentially hazardous substance Active Condition [facility] Gastroesophageal reflux disease Active Condition [facility] Hyperlipidemia Active Condition [facility] Iron deficiency anemia Active Condition [facility] Personal History of Venous Thrombosis and Embolism Active Condition [facility] Prostate cancer Active Condition Jun 12, 2005 Entered By: THOMAS CORMIER Comment: prostatectomy November 2004 [facility] Sensorineural hearing loss Active Condition [facility] Type 2 diabetes mellitus (SNOMED CT 77522061) Active Condition [facility] Vitamin B12 level below reference range Active Condition [facility] Vitamin D deficiency Active Condition [facility] Hypomagnesemia Inactive Condition 01/19/2024 [facility] Diagnosis: ICD-10-CM Z00.00 Encntr for general adult medical exam w/o abnormal findings Active Diagnosis [facility] Medications Combined list of outpatient medications from [...] CARIAS MD 2017 [facility] ATORVASTATI N CA 80MG TAB TAKE ONE-HALF TABLET BY MOUTH EVERY EVENING ORAL ACTIVE DANETTE CARIAS MD 2016 [facility] CARVEDILOL 25MG TAB TAKE ONE TABLET BY MOUTH TWICE A DAY ORAL ACTIVE BRIAN,SHE LBY R 2022 [facility] CHOLECALCIF EUGENIO 50MCG (2,000UNIT) TAB TAKE ONE TABLET BY MOUTH ONCE A DAY ORAL ACTIVE BRIAN,SHE LBY R 2023 [facility] CYANOCOBALA MIN 1000MCG TAB TAKE ONE TABLET BY MOUTH ONCE A DAY ORAL ACTIVE BRIAN,SHE LBY R 2022 [facility] EMPAGLIFLOZ IN TAB,ORAL TAKE 10 MG BY MOUTH ONCE A DAY ORAL ACTIVE BRIAN,SHE LBY R 2022 [facility] FERROUS SO4 325MG TAB TAKE ONE TABLET BY MOUTH ONCE A DAY ORAL ACTIVE BRIAN,SHE LBY R 2022 [facility] FINERENONE 10MG TAB TAKE TWO TABLETS BY MOUTH ONCE A DAY ORAL ACTIVE BRIAN,SHE LBY R 2022 [facility] ICOSAPENT ETHYL 1GM CAP TAKE 1 CAPSULE BY MOUTH FOUR TIMES A DAY ORAL ACTIVE TORRES,SHE LBY R 2023 [facility] LORAZEPAM 1MG TAB TAKE ONE TABLET BY MOUTH AT BEDTIME NEEDED ORAL ACTIVE DANETTE CARIAS MD 2015 [facility] LOSARTAN POTASSIUM 100MG TAB TAKE ONE-HALF TABLET BY MOUTH TWICE A DAY ORAL ACTIVE BRIAN,SHE LBY R 2022 [facility] METFORMIN HCL 750MG 24HR TAB,SA TAKE ONE TABLET BY MOUTH ONCE A DAY ORAL ACTIVE ZARA TORRES R 2022 [facility] PANTOPRAZOL E NA 40MG TAB,EC TAKE ONE TABLET BY MOUTH EVERY MORNING ORAL ACTIVE DANETTE CARIAS MD 2015 [facility] Immunizations Combined list of available immunizations from the Department of Defense and Veterans Affairs facilities. Immunization Series Date Given Administered By Site Reaction Lot Number CVX Code Drug Quality Eng Status Comments Source COVID-19 (PFIZER), MRNA, LNP-S, PF, JOSESITO-SUCROSE, 30 MCG/0.3 ML (AGES 12+ YEARS) 2023 PRUDENCIOSERASimon Spangler LEFT DELTO ID [id number] 309 complet ed [facility] COVID-19 ([employer]), MRNA, LNP-S, PF, 30 MCG/0.3 ML DOSE 5 2021 208 complet ed HISTORICA L INFORMATI ON - SOURCE UNSPECIFI ED, [facility] INFLUENZA, UNSPECIFIED FORMULATION 2021 88 complet ed HISTORICA L INFORMATI ON - SOURCE UNSPECIFI ED, [facility] COVID-19 ([facility]), MRNA, LNP-S, BIVALENT, PF, 30 MCG/0.3 ML DOSE 1 2021 300 complet ed HISTORICA L INFORMATI ON - FROM PATIENT'S WRITTEN RECORD, [facility] COVID-19 ([facility]), MRNA, LNP-S, PF, 30 MCG/0.3 ML DOSE 3 2020 208 complet ed PFR; [id number]; 2 [facility] COVID-19 ([facility]), MRNA, LNP-S, PF, 30 MCG/0.3 ML DOSE 2 2020 208 complet ed PFR; [id number]; 1 [facility] COVID-19 ([facility]), MRNA, LNP-S, PF, 30 MCG/0.3 ML DOSE 1 2020 208 complet ed PFR; [id number]; 1 [facility] INFLUENZA, INJECTABLE, MDCK, PRESERVATIVE FREE, QUADRIVALENT 2018 171 complet ed 02, Partner: [facility]. Administe red by: SABINA CABA (RTX=[id number]). Partner 04 Lot#: [id number] Mfr: SEQIRUS; Dosage: 0.5 [facility] ZOSTER RECOMBINANT 2 2017 187 complet ed [facility] ZOSTER RECOMBINANT 1 2017 187 complet ed [facility] INFLUENZA, UNSPECIFIED FORMULATION 2014 88 complet ed [facility] INFLUENZA, UNSPECIFIED FORMULATION 2012 88 complet ed [place] INFLUENZA, UNSPECIFIED FORMULATION 2011 88 complet ed [facility] INFLUENZA, UNSPECIFIED FORMULATION 2010 88 complet ed [facility] INFLUENZA, UNSPECIFIED FORMULATION 2009 88 complet ed [facility] INFLUENZA, UNSPECIFIED FORMULATION 2008 88 complet ed [facility] ZOSTER LIVE 2008 121 complet ed [facility] INFLUENZA, UNSPECIFIED FORMULATION 2007 88 complet ed [facility] INFLUENZA, UNSPECIFIED FORMULATION 2006 88 complet ed [facility] TDAP 2006 115 complet ed [place] INFLUENZA, UNSPECIFIED FORMULATION 2005 88 complet ed voice mail [facility] REFUSED PNEUMOVAX (HISTORICAL) 2004 complet ed [facility] INFLUENZA, UNSPECIFIED FORMULATION 2004 88 complet ed [facility] OUTSIDE PNEUMOVAX (HISTORICAL) 2004 109 complet ed [facility] INFLUENZA, UNSPECIFIED FORMULATION 2003 88 complet ed [facility] INFLUENZA, UNSPECIFIED FORMULATION 2000 88 complet ed [facility] Vital Signs Combined list of inpatient and outpatient Vital Signs from Department of [facility] and [facility] Affairs, ranging from 12 months to all on record, depending upon the facility. Vital Sign Value Date Comments Source SYSTOLIC BLOOD PRESSURE 96 01/19/2024 09:51:44 [facility] DIASTOLIC BLOOD PRESSURE 60 01/19/2024 09:51:44 [facility] PULSE OXIMETRY 99 01/19/2024 09:51:44 S . [facility] WEIGHT 182.6 01/19/2024 09:51:[facility] BMI 24 kg/m2 01/19/2024 09:51:44 . [facility] PAIN 3 01/19/2024 09:51:44 [facility] TEMPERATURE 98 01/19/2024 09:51:44 [facility] PULSE 70 01/19/2024 09:51:44 . [facility] RESPIRATION 18 01/19/2024 09:51:44 [facility] Encounters Combined list of: 1) Encounters from Department of Veterans Affairs facilities going backup to the last 18 months, not all [place] inpatient encounters are included; 2) Encounters from the Department of [facility] facilities going backup to 280 months. Location Location Details Encounter Type Encounter Number Reason For Visit Attending Provider ADM Date DC Date Status Disposition Source [facility] ADMN SARSCOV2 VACC 1 DOSE [id number] Diagnos is: ICD-10- CM Z00.00 Encntr for general adult medical exam w/o abnorma l finding s BRIAN,TARIQ BY R 01/18 [facility] Outpatient Encounter [id number] 10/12 [facility] Out[facility] Encounter [id number] 10/13 [facility] Outpatient Encounter [id number] 10/14 [facility] Social History Combined list of available smoking, tobacco, and other social history from Department of Defense and Veterans Affairs facilities. Social History Type Response Date Comment Sourc e Tobacco smoking status NHIS VA-TOBACCO FORMER USER 01/19/2024 [facility] of [facility]/19/2024 [facility] History of tobacco use CO-TOBACCO FORMER USER 01/14/2023 [facility] of [facility] 03/12/2018 [facility] History of tobacco use QUIT TOBACCO >7 Y EARS AGO 03/12/2017 [facility] History of tobacco use QUIT TOBACCO >7 Y EARS AGO 03/12/2016 [facility] History of tobacco use QUIT TOBACCO >7 Y EARS AGO 02/27/2015 [facility] History of tobacco use QUIT TOBACCO >7 Y EARS AGO 12/19/2013 [facility] History of tobacco use QUIT TOBACCO >7 Y EARS AGO 12/13/2012 [facility] History of tobacco use QUIT TOBACCO >7 Y EARS AGO 12/29/2006 [facility] History of tobacco use CURRENT NON-TOBAC CO USER-HX OF USE 03/17/2006 [facility] History of tobacco use CURRENT NON-TOBAC CO USER-HX OF USE 06/12/2005 [facility] History of tobacco use CURRENT NON-TOBAC CO USER-HX OF USE 09/12/2004 [facility] Plan of Care List of future care activities from [facility] facilities. Additional future care activities may be listed in the Assessment and Plan section. Date/Time Care Activity Care Activity Detail Facili ty 01/19/2025 AMBULATORY - MEDICINE AMBULATORY - MEDICI NE [facility] Advance Directives List of completed, amended, or rescinded Advance Directives on record at [facility] facilities. An actual copy of the Directive is not included. Date Advance Directive Provider Source 02/02/2023 ADVANCE DIRECTIVE ALISON NELSON TONY [facility]
--- NOTE | 2024-11-28 20:10 | PC.NURSE ---
ok to start abx without blood cultures per edp jammie
[2024-11-28 20:29] LABS: Hematocrit 26.2 % (42.0-52.0); Hemoglobin 7.4 g/dL (14.0-18.0)
[2024-11-28 20:49] VITALS: BMI 24.8
--- NOTE | 2024-11-28 21:14 | ADMGEN ---
This patient, Jose Manuel Luna, was admitted to Medical Room 348-01. Patient/family oriented to hospital policies and general routines including ID bracelet, bed and alarms, visiting hours, pain management, procedures, bathroom and other care routines, personal items, smoking policy, room service/diet, and visiting hours. Information on how to activate the Rapid Response Team has been discussed. Patient/Family are encouraged to report perceived risks to care and to ask questions if they do not understand what they are told or what they should do.
[2024-11-28 21:52] VITALS: BP 123/59; PULSE 95; RESP 18; TEMP 36.4; O2SAT 97
[2024-11-29] VITALS (17 sets, daily range): BP systolic 126–145; BP diastolic 63–81; PULSE 75–96; RESP 16–18; TEMP 36.2–37.1; O2SAT 95–100; BMI 24.2
[2024-11-29 02:36] LABS: Hematocrit 23.2 % (42.0-52.0)
[2024-11-29] MEDS: FUROSEMIDE INJ 40 MG/4 ML VIAL IV PUSH ×2 (03:16→16:51)
[2024-11-29 03:46] LABS: Hemoglobin 6.7 g/dL (14.0-18.0)
--- NOTE | 2024-11-29 08:24 | P.CONGI_ITS ---
Assessment and Plan Assessment and plan (1) Anemia: Qualifiers: Anemia type: iron deficiency Iron deficiency anemia type: unspecified iron deficiency Qualified Code(s): D50.9 - Iron deficiency anemia, unspecified Code(s): D64.9 - Anemia, unspecified Status: Acute (2) GERD (gastroesophageal reflux disease): Qualifiers: Esophagitis presence: esophagitis presence not specified Qualified Code(s): K21.9 - Gastro-esophageal reflux disease without esophagitis Code(s): K21.9 - Gastro-esophageal reflux disease without esophagitis Status: Acute Plan 1. SAAD: Patient has never had a colonoscopy or EGD but states that he had a negative Cologuard within the past 6 months. Family history negative for CRC or IBD. Labs today show HGB 6.7, HCT 23, MCV 91, platelets 332, INR 1.8. Anemia workup performed 08/05/2024 showed total iron 18, TIBC 304, iron saturation 6%, ferritin 14.50, B12 > a 1000, folate 7.4. BUN and creatinine normal. Patient denies any signs of active GI bleeding. Prior to admission patient was on Eliquis, 81 mg aspirin, and ferrous sulfate. Patient received 1 unit of PRBCs since admission, pending repeat H&H. BNP elevated at time of admission at 1250. Heart failure may be a partially contributing factor. DDX: Malabsorption versus GI blood loss versus anemia of chronic disease vs neoplasm less likely IBD or Celiac * Will check celiac panel and fecal calprotectin to evaluate for possible causes of malabsorption * primary care team to continue monitoring H/H and transfuse as needed to keep Hgb >7 * unable to recheck iron panel as patient has already received blood * Plan for colonoscopy * start bowel prep tomorrow evening * NPO after midnight 12/01 2. GERD: Patient has never had an EGD. Prior to admission patient was taking Protonix 40 mg daily and states that his reflux has been well controlled. Denies any other upper GI complaints. He is tolerating p.o. intake well and swallowing without difficulty. * Given prolonged history of GERD requiring PPI use and severe anemia will plan for EGD * will restart Protonix 40 mg daily * further recommendations to follow endoscopy Thank you very much for allowing me to share in the care of this very nice patient. This report may have been done utilizing a voice recognition system. Attempts have been made to correct errors. However, there may be uncorrected grammatical, spelling, and recognition errors present. GI Consult Note Consult date/time: 11/29/24 08:24 Reason for consult: Anemia HPI: Jose Manuel Luna is a 79 year old male with PMSH of CAD, prostate cancer status post prostatectomy, pacemaker, HTN, AFib, CABG, HLD, GERD, and constipation. He presented to the emergency room for complaints of swelling in his feet and arms. He was seen for similar complaints about a month ago and was started on Lasix. On admission patient found to have anemia. GI consulted for anemia. Patient denies any GI complaints. He is on pantoprazole 40 mg daily at home and states his reflux is well controlled. He is having regular daily bowel movements that are formed non urgent. He denies any abdominal pain, nausea, vomiting, bloating, odynophagia, dysphagia, regurgitation, early satiety, weight loss, appetite loss, diarrhea, constipation, hematochezia, or melena. Patient is on aspirin 81 mg and Eliquis prior to admission. He is a nondrinker, nonsmoker and denies marijuana use. Family history negative for CRC or IBD. ENDOSCOPY HISTORY: EGD: Patient has never had an EGD COLONOSCOPY: Patient has never had a colonoscopy LABS AND STOOL STUDIES: Labs since admission: Sodium 135, potassium 3.7, BUN 28, creatinine 0.74, GFR >60 WBC 6, Hgb 6.7, Hct 23, MCV 91, platelets 332, INR 1.8 Total bilirubin 0.3, AST 21, ALT 13, Alkaline Phos 93, albumin 2.2 Labs 08/05/2024: Iron 18, TIBC 304, iron sat 6%, ferritin 14.50, B12 >1000, folate 7.4 IMAGING: CT abd/pelvis w/contrast 08/25/2024: IMPRESSION: 1. Multiple acute left rib fractures with adjacent soft tissue swelling. Bilateral pleural effusion/hemothorax. 2: Compressive atelectasis of the left lower lobe. 3: Thickening of the gastric antrum, suspicious for gastritis. 4: Bilateral hydroceles. CT abd/pelvis w/contrast 11/30/2023 IMPRESSION: 1. No urolithiasis or other acute intra-abdominal/pelvic process. 2. Bilateral fat-containing inguinal hernias. Review of Systems 2 Constitutional: Constitutional: Reports as per HPI ENT: Reports as per HPI Cardiovascular: Cardiovascular: Reports as per HPI, Denies chest pain, Reports pedal edema, Reports leg edema and Denies dyspnea Comments: arm swelling Respiratory: Respiratory: Denies cough and Denies dyspnea Gastrointestinal: Gastrointestinal: Reports as per HPI Musculoskeletal: Musculoskeletal: Reports as per HPI Integumentary/Breasts: Skin/Breast: Reports as per HPI Psychiatric: Psychiatric: Reports as per HPI Endocrine: Endocrine: Reports no additional endocrine complaints Hematologic/Lymphatic: Hematologic/Lymphatic: Reports no additional hematologic/lymphatic complaints [facility] Past Medical History Medical History CAD (coronary artery disease) Prostate cancer sp prostatectomy Pacemaker Hypocalcemia HTN (hypertension) Afib Age related osteoporosis Hemothorax with pneumothorax, traumatic Urinary retention Recurrent falls Cachexia Protein calorie malnutrition Malaise and fatigue Surgical History Surgical History Hx of CABG Previous back surgery H/O prostatectomy Family History Family History (Updated 11/28/24 @ 21:31 by Isaura Mckeon RN) Father Acute myocardial infarction Mother Diabetes mellitus Social History Social History Smoking packs per day: 1 Smoking cigarettes per day: 20.0 Years smoked: 30 Smoking pack-years: 30.00 Smoking status: Former smoker Tobacco type: cigarettes Alcohol intake: never Substance use: never Do You Feel Safe in your Home?: Yes Lack of Transportation: No Lack of Food: Never True Current Housing: I Have Housing Concerned About Future Housing: No Difficulty Paying Gas/Electric Bills: No Difficulty Paying for Meds: No Currently Unemployed: No Education: High School Diploma/GED Difficulty w/ Childcare or Family Care: No Spiritual care concerns: No Meds Home Medications and Allergies Home Medications ?Medication ?Instructions ?Recorded ?Confirmed ?Type acetaminophen 500 mg tablet 1,000 mg PO Q8H 09/05/24 11/28/24 History apixaban 5 mg tablet 5 mg PO BID 09/05/24 11/28/24 History aspirin 81 mg chewable tablet 81 mg PO DAILY 09/05/24 11/28/24 History atorvastatin 40 mg tablet (Lipitor) 40 mg PO HS 09/05/24 11/28/24 History cholecalciferol (vitamin D3) 25 2,000 unit PO DAILY 09/05/24 11/28/24 History mcg (1,000 unit) tablet cyanocobalamin (vitamin B-12) 1,000 mcg PO DAILY 09/05/24 11/28/24 History 1,000 mcg tablet ferrous sulfate 325 mg (65 mg 325 mg PO DAILY 09/05/24 11/28/24 History iron) tablet gabapentin 300 mg capsule 300 mg PO TID 09/05/24 11/28/24 History lidocaine 5 % topical patch 2 patch topical Q24H 09/05/24 11/28/24 History pantoprazole 40 mg tablet,delayed 40 mg PO QAM 09/05/24 11/28/24 History release polyethylene glycol 3350 17 gram 17 g PO DAILY 09/05/24 11/28/24 History oral powder packet sennosides 8.6 mg tablet 17.2 mg PO DAILY 09/05/24 11/28/24 History oxycodone 5 mg tablet 5 mg PO Q6H PRN pain rated 1-10 09/19/24 11/28/24 Rx #28 tabs calcium carbonate (Antacid Calcium) 430 mg PO HS 11/28/24 11/28/24 History cetirizine 10 mg tablet (24Hour 10 mg PO DAILY 11/28/24 11/28/24 History Allergy) fluticasone propionate 50 1 spray intranasal DAILY 11/28/24 11/28/24 History mcg/actuation nasal spray,suspension (Flonase Allergy Relief) furosemide 20 mg tablet (Lasix) 40 mg PO DAILY 11/28/24 11/28/24 History guaifenesin 600 mg tablet, 600 mg PO Q12H PRN congestion 11/28/24 11/28/24 History extended release 12 hr (Mucinex) losartan 50 mg tablet 50 mg PO Q12H 11/28/24 11/28/24 History melatonin 5 mg capsule 5 mg PO HS 11/28/24 11/28/24 History metformin 750 mg tablet,extended 750 mg PO QPM 11/28/24 11/28/24 History release 24 hr potassium chloride 10 mEq 20 meq PO DAILY 11/28/24 11/28/24 History tablet,extended release (Klor-Con) sotalol 120 mg tablet 120 mg PO Q12H 11/28/24 11/28/24 History Allergies Allergy/AdvReac Type Severity Reaction Status Date / Time No Known Allergies Allergy Verified 11/28/24 15:48 Vital Signs Vital Signs - 24 hr 11/28/24 16:14 11/28/24 18:02 11/28/24 18:05 Temperature 97.8 F 97.9 F Pulse Rate 88 87 Respiratory Rate 16 20 Blood Pressure 128/65 148/71 H Pulse Oximetry 96 94 100 Oxygen Delivery Room Air Room Air Room Air 11/28/24 19:26 11/28/24 21:52 11/29/24 00:00 Temperature 97.5 F L Pulse Rate 84 95 92 Respiratory Rate 14 18 Blood Pressure 136/65 123/59 L Pulse Oximetry 95 97 Oxygen Delivery 11/29/24 04:00 11/29/24 06:00 11/29/24 06:19 Temperature 97.5 F L 98.1 F Pulse Rate 86 96 87 Respiratory Rate 18 16 Blood Pressure 136/73 137/68 Pulse Oximetry 95 96 Oxygen Delivery 11/29/24 06:35 11/29/24 07:35 Temperature 98.3 F 97.1 F L Pulse Rate 86 94 Respiratory Rate 16 18 Blood Pressure 134/70 126/72 Pulse Oximetry 96 97 Oxygen Delivery Exam 2 Const: General: cooperative, healthy appearing, comfortable, no acute distress and well developed Orientation/consciousness: oriented to person, oriented to place, oriented to time and patient oriented x3 HENMT: Head: normal to inspection, normocephalic and atraumatic Mouth: Yes Normal oral and palatal mucosa present and Yes moist mucous membranes Eyes: General: appearance normal, both eyes and all related structures C onjunctivae: conjunctivae normal Sclera: sclerae normal Pupils: Equal, round and reactive pupils present Neck: Neck: normal visual inspection Chest: Chest palpation & inspection: normal inspection of the chest Resp: Effort & Inspection: normal respiratory effort and able to speak in complete sentences Auscultation: clear to auscultation bilaterally Cardio: Jugular venous distension: no JVD Rate: regular rate Rhythm: r egular rhythm Heart sounds: S1 normal heart sound present and S2 normal heart sound present GI: Inspection: normal to inspection GI Palp: Yes Soft to palpation, No Tenderness to palpation present (GI), No Guarding due to palpation present (GI) and Yes No hepatosplenomegaly present Auscultation: normal bowel sounds R ectal Exam: deferred Skin: General skin exam: normal color and no rashes or lesions noted Neuro: General: oriented to person, oriented to place, oriented to time and patient oriented x3 Cranial nerves: Yes Equal, round and reactive pupils present Speech: normal speech Extrem: General: normal to inspection, edema and pedal edema Other: arm swelling Psych: Appearance: grossly normal and well kempt Affect: normal affect Results Labs 11/29/24 02:13 11/28/24 17:26 Labs: Short CBC 11/28/24 11/28/24 11/29/24 Range/Units 17:26 20:15 02:13 WBC 5.7 (4.5-10.0) K/mm3 Hgb 7.4 L 7.4 L 6.7 L* (14.0-18.0) g/dL Hct 26.5 L 26.2 L 23.2 L (42.0-52.0) % Plt Count 332 (150-375) k/mm3 BMP 11/28/24 17:26 Sodium 135 L Potassium 3.7 Chloride 103 Carbon Dioxide 32 H BUN 28 H D Creatinine 0.74 Glucose 111 H Calcium 7.4 L Cardiac Enzymes 11/28/24 Range/Units 17:26 Troponin I < 0.012 (0.000-0.034) ng/mL Liver Function 11/28/24 Range/Units 17:26 Total Bilirubin 0.3 (0.2-1.3) mg/dL AST 21 (17-59) U/L ALT 13 (6-50) U/L Alkaline Phosphatase 93 (38-126) U/L Albumin 2.2 L (3.5-5.1) g/dL Urine 11/28/24 Range/Units 18:13 Urine Color Yellow (Yellow) Urine Appearance Clear (Clear) Urine pH 5.5 (5.0-9.0) Ur Specific [place] 1.022 (1.001-1.035) Urine Protein Negative (Negative) mg/dL Urine Glucose (UA) Negative (Negative) mg/dL
[2024-11-29 08:48] LABS: Glucose Point of Care 98 mg/dl (65-105)
[2024-11-29] MEDS: SODIUM CHLORIDE 0.9% IV 250 ML 30 ML IV CONT (09:05)
--- NOTE | 2024-11-29 09:18 | P.HP_ITS ---
H&P: HPI History of Present Illness Date/Time: 11/29/24 09:18 Chief Complaint: Swelling of hands and feet Narrative: 79-year-old male past history of history of CABG and pacemaker, atrial fibrillation, GERD, high cholesterol on Lasix presents the hospital with complaints of swelling of hands and feet and not being able to walk. Per the patient he has been unable to walk for the last 3-4 weeks. He states that he went to the hospital and then discharged to rehab. When asked about patient's diagnosis he says I don't known, I was not listening when they talked. According to the patient had a fall about a month ago and went to [facility] with lower extremity dot dot, workup showed he had fractured ribs and the chest tube. He was then discharged to rehab. Per the it sounds like the patient is just extremely weak and is physically able to walk. Blood work shows anemia at 6.7, BNP of 1250, urine with positive nitrates and do +leukocyte esterase, chest x-ray shows atelectasis versus pneumonia with pleural effusion. Review of Systems Review of Systems: 12 systems were reviewed and are negativ e except for as per HPI. [facility] Past Medical History Medical History CAD (coronary artery disease) Prostate cancer sp prostatectomy Pacemaker Hypocalcemia HTN (hypertension) Afib Age related osteoporosis Hemothorax with pneumothorax, traumatic Urinary retention Recurrent falls Cachexia Protein calorie malnutrition Malaise and fatigue Surgical History Surgical History Hx of CABG Previous back surgery H/O prostatectomy Family History Family History (Updated 11/28/24 @ 21:31 by Isaura Mckeon RN) Father Acute myocardial infarction Mother Diabetes mellitus Social History Social History Smoking packs per day: 1 Smoking cigarettes per day: 20.0 Years smoked: 30 Smoking pack-years: 30.00 Smoking status: Former smoker Tobacco type: cigarettes Alcohol intake: never Substance use: never Do You Feel Safe in your Home?: Yes Lack of Transportation: No Lack of Food: Never True Current Housing: I Have Housing Concerned About Future Housing: No Difficulty Paying Gas/Electric Bills: No Difficulty Paying for Meds: No Currently Unemployed: No Education: High School Diploma/GED Difficulty w/ Childcare or Family Care: No Spiritual care concerns: No Meds Home Medications and Allergies Home Medications ?Medication ?Instructions ?Recorded ?Confirmed ?Type acetaminophen 500 mg tablet 1,000 mg PO Q8H 09/05/24 11/28/24 History apixaban 5 mg tablet 5 mg PO BID 09/05/24 11/28/24 History aspirin 81 mg chewable tablet 81 mg PO DAILY 09/05/24 11/28/24 History atorvastatin 40 mg tablet (Lipitor) 40 mg PO HS 09/05/24 11/28/24 History cholecalciferol (vitamin D3) 25 2,000 unit PO DAILY 09/05/24 11/28/24 History mcg (1,000 unit) tablet cyanocobalamin (vitamin B-12) 1,000 mcg PO DAILY 09/05/24 11/28/24 History 1,000 mcg tablet ferrous sulfate 325 mg (65 mg 325 mg PO DAILY 09/05/24 11/28/24 History iron) tablet gabapentin 300 mg capsule 300 mg PO TID 09/05/24 11/28/24 History lidocaine 5 % topical patch 2 patch topical Q24H 09/05/24 11/28/24 History pantoprazole 40 mg tablet,delayed 40 mg PO QAM 09/05/24 11/28/24 History release polyethylene glycol 3350 17 gram 17 g PO DAILY 09/05/24 11/28/24 History oral powder packet sennosides 8.6 mg tablet 17.2 mg PO DAILY 09/05/24 11/28/24 History oxycodone 5 mg tablet 5 mg PO Q6H PRN pain rated 1-10 09/19/24 11/28/24 Rx #28 tabs calcium carbonate (Antacid Calcium) 430 mg PO HS 11/28/24 11/28/24 History cetirizine 10 mg tablet (24Hour 10 mg PO DAILY 11/28/24 11/28/24 History Allergy) fluticasone propionate 50 1 spray intranasal DAILY 11/28/24 11/28/24 History mcg/actuation nasal spray,suspension (Flonase Allergy Relief) furosemide 20 mg tablet (Lasix) 40 mg PO DAILY 11/28/24 11/28/24 History guaifenesin 600 mg tablet, 600 mg PO Q12H PRN congestion 11/28/24 11/28/24 History extended release 12 hr (Mucinex) losartan 50 mg tablet 50 mg PO Q12H 11/28/24 11/28/24 History melatonin 5 mg capsule 5 mg PO HS 11/28/24 11/28/24 History metformin 750 mg tablet,extended 750 mg PO QPM 11/28/24 11/28/24 History release 24 hr potassium chloride 10 mEq 20 meq PO DAILY 11/28/24 11/28/24 History tablet,extended release (Klor-Con) sotalol 120 mg tablet 120 mg PO Q12H 11/28/24 11/28/24 History Allergies Allergy/AdvReac Type Severity Reaction Status Date / Time No Known Allergies Allergy Verified 11/28/24 15:48 Vital Signs Vital Signs - 24 hr 11/28/24 16:14 11/28/24 18:02 11/28/24 18:05 Temperature 97.8 F 97.9 F Pulse Rate 88 87 Respiratory Rate 16 20 Blood Pressure 128/65 148/71 H Pulse Oximetry 96 94 100 Oxygen Delivery Room Air Room Air Room Air 11/28/24 19:26 11/28/24 21:52 11/29/24 00:00 Temperature 97.5 F L Pulse Rate 84 95 92 Respiratory Rate 14 18 Blood Pressure 136/65 123/59 L Pulse Oximetry 95 97 Oxygen Delivery 11/29/24 04:00 11/29/24 06:00 11/29/24 06:19 Temperature 97.5 F L 98.1 F Pulse Rate 86 96 87 Respiratory Rate 18 16 Blood Pressure 136/73 137/68 Pulse Oximetry 95 96 Oxygen Delivery 11/29/24 06:35 11/29/24 07:35 11/29/24 08:31 Temperature 98.3 F 97.1 F L Pulse Rate 86 94 Respiratory Rate 16 18 Blood Pressure 134/70 126/72 Pulse Oximetry 96 97 96 Oxygen Delivery Room Air 11/29/24 08:35 Temperature 98.3 F Pulse Rate 91 Respiratory Rate 18 Blood Pressure 143/81 H Pulse Oximetry 96 Oxygen Delivery Exam Narrative: General: chronic illl appearing, appears older than stated age. HEENT: normocephalic, atraumatic. Mucous membranes moist. EOMI, PERRLA, bilateral sclera anicteric, no conjunctival injection. Neck supple without JVD, lymphadenopathy, or bruit. Respiratory: clear to ascultation bilaterally. No rales/rhonic/wheezes. Cardiovascular: Regular rate and rhythm, normal S1-S2 upon ascultation. No murmurs, rubs, or clicks. PMI is nondisplaced, capillary refill less than 3 second. Abdomen: Soft, round, no pulsatile masses, nondistended and nontender. No rebound, no guarding. No CVA tenderness, no hepatosplenomegaly. Bowel sounds present to all four quadrants. No high pitch or tinkling sounds, resonant to percussion. Extremities: No cyanosis, clubbing, or edema present. Pulses are palpable 2/2. Active ROM to all four extremities. Neuro: Alert and orientated x 4. PERRLA. Cranial nerves 2-12 intact without focal deficit. Skin: Warm, dry, and intact, without rash, erythema, or lesion. Psych: pleasant, cooperative, normal speech, normal affect, no hallucinations, no dysarthia H&P: Results Labs Labs: Short CBC 11/28/24 11/28/24 11/29/24 Range/Units 17:26 20:15 02:13 WBC 5.7 (4.5-10.0) K/mm3 Hgb 7.4 L 7.4 L 6.7 L* (14.0-18.0) g/dL Hct 26.5 L 26.2 L 23.2 L (42.0-52.0) % Plt Count 332 (150-375) k/mm3 BMP 11/28/24 17:26 Sodium 135 L Potassium 3.7 Chloride 103 Carbon Dioxide 32 H BUN 28 H D Creatinine 0.74 Glucose 111 H Calcium 7.4 L Cardiac Enzymes 11/28/24 Range/Units 17:26 Troponin I < 0.012 (0.000-0.034) ng/mL Liver Function 11/28/24 Range/Units 17:26 Total Bilirubin 0.3 (0.2-1.3) mg/dL AST 21 (17-59) U/L ALT 13 (6-50) U/L Alkaline Phosphatase 93 (38-126) U/L Albumin 2.2 L (3.5-5.1) g/dL Urine 11/28/24 Range/Units 18:13 Urine Color Yellow (Yellow) Urine Appearance Clear (Clear) Urine pH 5.5 (5.0-9.0) Ur Specific [place] 1.022 (1.001-1.035) Urine Protein Negative (Negative) mg/dL Urine Glucose (UA) Negative (Negative) mg/dL Assessment and Plan Assessment and plan (1) Anemia: Code(s): D64.9 - Anemia, unspecified Status: Acute Assessment and Plan: 1 RBC 11/29 Telemetry monitoring Anemia workup, unable do iron panel due to transfusion Repeat hemoglobin pending GI consulted for possible bleed plan for colonoscopy on Bowel prep tomorrow (2) Acute UTI: Code(s): N39.0 - Urinary tract infection, site not specified Status: Acute Assessment and Plan: Could be a factor in weakness IV Rocephin Culture and sensitivity pending (3) HTN (hypertension): Code(s): I10 - Essential (primary) hypertension Status: Acute Assessment and Plan: Continue cozaar (4) Afib: Code(s): I48.91 - Unspecified atrial fibrillation Status: Acute Assessment and Plan: Continue sotalol (5) Diabetes: Code(s): E11.9 - Type 2 diabetes mellitus without complications Status: Acute Assessment and Plan: Hold metformin Diabetic diet A Accu-Cheks a.c. HS SSI (6) Weakness: Code(s): R53.1 - Weakness Status: Acute Assessment and Plan: PT and OT Ensure t.i.d. (7) Edema: Code(s): R60.9 - Edema, unspecified Status: Acute Assessment and Plan: Continue IV Lasix Request outside records Plan Requested records from [facility] pending Quality VTE Prophylaxis VTE prophylaxis: mechanical ordered Hospitalist MIPS Advance Care Plan I have confirmed that the patient's Advanced Care Plan is present, code status is documented, or surrogate decision maker is listed in patient medical record.: Yes Medication Reconciliation I have utilized all available resources to obtain, update and review the patien ts current medications (includes all prescriptions, OTC, herbals, cannabis, and nutritional supplements).: Yes
[2024-11-29 11:40] LABS: Basophils Percent Auto 0.9 % (0.2-1.2); Eosinophils Absolute Auto 0.1 K/mm3 (0-0.3); Hematocrit 29.3 % (42.0-52.0); Hemoglobin 8.7 g/dL (14.0-18.0); Immature Granulocyte Absolute 0.03 K/mm3 (0.00-0.031); Immature Granulocyte Percent A 0.7 % (0-0.5); Lymphocytes Absolute Auto 0.66 K/mm3 (0.9-3.2); Lymphocytes Percent Auto 14.5 % (18.3-44.2); Mean Corpuscular HGB Conc 29.7 g/dl (32-36); Mean Corpuscular Hemoglobin 26.9 pg (26-34); Mean Corpuscular Volume 90.7 fl (80-100); Mean Platelet Volume 8.8 fl (7.4-10.4); Monocytes Absolute Auto 0.4 K/mm3 (0.1-0.6); Monocytes Percent Auto 7.7 % (2.6-8.5); Neutrophils Absolute Auto 3.4 K/mm3 (1.3-6.7); Neutrophils Percent Auto 74.2 % (45.5-73.1); Platelet Count Result 290 k/mm3 (150-375); Red Blood Count 3.23 M/mm3 (4.6-6.20); Red Cell Distribution Width 16.4 % (11.5-14.5); White Blood Count 4.6 K/mm3 (4.5-10.0)
[2024-11-29 11:48] LABS: Glucose Point of Care 129 mg/dl (65-105)
[2024-11-29 11:51] LABS: INR 1.3; Prothrombin Time 16.8 Seconds (11.1-14.7)
[2024-11-29 11:52] LABS: Partial Thromboplastin Time 37.7 Seconds (22.3-36.8)
[2024-11-29 12:04] LABS: Anion Gap 2 mmol/L (4-12); Blood Urea Nitrogen 23 mg/dL (9-20); Calcium 7.4 mg/dL (8.4-10.2); Carbon Dioxide 31 mmol/L (22-30); Chloride 103 mmol/L (98-107); Estimated CRCL calculation 78 ml/min; Estimated Glomerular Filt Rate > 60; Glucose 130 mg/dL (65-110); Potassium 3.6 mmol/L (3.4-5.0); Sodium 136 mmol/L (137-145)
[2024-11-29 12:43] LABS: Hypochromasia 1+; Platelet Estimate Adequate (Adequate); Schistocytes None Seen
[2024-11-29] MEDS: SOTALOL HCL 40 MG TABLET 120 MG PO ×2 (12:44→20:17)
[2024-11-29] MEDS: GABAPENTIN 300 MG CAPSULE PO ×2 (12:44→16:51)
--- NOTE | 2024-11-29 13:35 | PC.NURSE ---
On 11/29/24, the student, Chaparrita Monte, provided care and completed [facility] documentation on this patient. I have reviewed the student's documentation and agree with the findings.
[2024-11-29] MEDS: BISACODYL 5 MG TABLET EC 20 MG PO (16:44)
[2024-11-29] MEDS: polyethylene glycoL 3350 238 GM BOTTLE PO (16:45)
[2024-11-29 16:57] LABS: Glucose Point of Care 170 mg/dl (65-105)
[2024-11-29 18:21] LABS: Hematocrit 29.6 % (42.0-52.0); Hemoglobin 8.7 g/dL (14.0-18.0)
[2024-11-29] MEDS: INSULIN ASPART (*BKC) 100 UNITS/ML SUB-Q (20:17)
[2024-11-29] MEDS: MELATONIN 5 MG TABLET PO (20:17)
[2024-11-29] MEDS: ATORVASTATIN 40 MG TABLET PO (20:17)
[2024-11-29] MEDS: LOSARTAN POTASSIUM 50 MG TABLET PO (20:17)
[2024-11-29 21:26] LABS: Glucose Point of Care 202 mg/dl (65-105)
[2024-11-30] VITALS (13 sets, daily range): BP systolic 99–141; BP diastolic 57–88; PULSE 74–87; RESP 14–20; TEMP 36.1–36.4; O2SAT 93–98
[2024-11-30] MEDS: MAGNESIUM CITRATE 300 ML BTL PO ×2 (02:22→07:53)
[2024-11-30 05:55] LABS: Basophils Percent Auto 0.8 % (0.2-1.2); Eosinophils Absolute Auto 0.1 K/mm3 (0-0.3); Eosinophils Percent Auto 2.1 % (0-4.4); Hematocrit 27.3 % (42.0-52.0); Hemoglobin 8.2 g/dL (14.0-18.0); Immature Granulocyte Absolute 0.02 K/mm3 (0.00-0.031); Immature Granulocyte Percent A 0.4 % (0-0.5); Lymphocytes Absolute Auto 0.89 K/mm3 (0.9-3.2); Lymphocytes Percent Auto 18.5 % (18.3-44.2); Mean Corpuscular Hemoglobin 27.1 pg (26-34); Mean Corpuscular Volume 90.1 fl (80-100); Mean Platelet Volume 9.1 fl (7.4-10.4); Monocytes Absolute Auto 0.5 K/mm3 (0.1-0.6); Monocytes Percent Auto 9.8 % (2.6-8.5); Neutrophils Absolute Auto 3.3 K/mm3 (1.3-6.7); Neutrophils Percent Auto 68.4 % (45.5-73.1); Platelet Count Result 266 k/mm3 (150-375); Red Blood Count 3.03 M/mm3 (4.6-6.20); Red Cell Distribution Width 16.4 % (11.5-14.5); White Blood Count 4.8 K/mm3 (4.5-10.0)
[2024-11-30 06:08] LABS: Anion Gap 2 mmol/L (4-12); Blood Urea Nitrogen 19 mg/dL (9-20); Calcium 7.3 mg/dL (8.4-10.2); Carbon Dioxide 30 mmol/L (22-30); Chloride 102 mmol/L (98-107); Estimated CRCL calculation 86 ml/min; Estimated Glomerular Filt Rate > 60; Glucose 122 mg/dL (65-110); Potassium 3.6 mmol/L (3.4-5.0); Sodium 134 mmol/L (137-145)
--- NOTE | 2024-11-30 06:29 | PC.NURSE ---
Called Dr to inform him that bowels are not clear and liquid yet. Ordered another bottle of mag citrate.
[2024-11-30 06:37] LABS: Iron 25 ug/dL (49-181)
[2024-11-30 06:45] LABS: Percent Iron Saturation 13 % (20-50)
[2024-11-30 07:13] LABS: Folic Acid 5.6 ng/mL (2.76->20)
[2024-11-30 08:12] LABS: Glucose Point of Care 118 mg/dl (65-105)
--- NOTE | 2024-11-30 08:58 | P.PNIM_ITS ---
Progress Note: A&P Assessment and Plan (1) Anemia: Qualifiers: Anemia type: iron deficiency Iron deficiency anemia type: unspecified iron deficiency Qualified Code(s): D50.9 - Iron deficiency anemia, unspecified Code(s): D64.9 - Anemia, unspecified Status: Acute Assessment and Plan: * 1 RBC 11/29 * Telemetry monitoring * Anemia workup, unable do iron panel due to transfusion * Repeat hemoglobin pending * Colonoscopy and EGD today, see above (2) Colonic mass: Code(s): K63.89 - Other specified diseases of intestine Status: Acute Assessment and Plan: * Colonoscopy 11/30: Completely-obstructing circumferential, fungating, friable, infiltrative, malignant appearing mass observed in ascending colon, approx 3- 4cm. Multiple biopsies taken * GI following * Oncology pending consult (3) Acute UTI: Code(s): N39.0 - Urinary tract infection, site not specified Status: Acute Assessment and Plan: * Could be a factor in weakness * IV Rocephin * Culture and sensitivity pending (4) HTN (hypertension): Code(s): I10 - Essential (primary) hypertension Status: Acute Assessment and Plan: * Continue ирина (5) Afib: Code(s): I48.91 - Unspecified atrial fibrillation Status: Acute Assessment and Plan: * Continue sotalol (6) Diabetes: Code(s): E11.9 - Type 2 diabetes mellitus without complications Status: Acute Assessment and Plan: * Hold metformin * Diabetic diet * A Jared-Iliana castle HS * SSI (7) Weakness: Code(s): R53.1 - Weakness Status: Acute Assessment and Plan: * PT and OT * Ensure t.i.d. (8) Edema: Code(s): R60.9 - Edema, unspecified Status: Acute Assessment and Plan: * Continue IV Lasix * Request outside records Plan Requested records from [facility] pending Time Spent With Patient Time: Subjective Date/time seen: 11/30/24 08:58 Interval history: 79-year-old male past history of history of CABG and pacemaker, atrial fibrillation, GERD, high cholesterol on Lasix presents the hospital with complaints of swelling of hands and feet and not being able to walk. 11/30/2024 Patient sitting comfortably at bed at time of exam. Plan for colonoscopy today. Urine culture positive for Klebsiella P. Will continue Rocephin, as well as IV Lasix for extremity swelling. Review of Systems Review of Systems: 12 systems were reviewed and are negativ e except for as per HPI. Exam Narrative: General: chronic illl appearing, appears older than stated age. HEENT: normocephalic, atraumatic. Mucous membranes moist. EOMI, PERRLA, bilateral sclera anicteric, no conjunctival injection. Neck supple without JVD, lymphadenopathy, or bruit. Respiratory: clear to ascultation bilaterally. No rales/rhonic/wheezes. Cardiovascular: Regular rate and rhythm, normal S1-S2 upon ascultation. No murmurs, rubs, or clicks. PMI is nondisplaced, capillary refill less than 3 second. Abdomen: Soft, round, no pulsatile masses, nondistended and nontender. No rebound, no guarding. No CVA tenderness, no hepatosplenomegaly. Bowel sounds present to all four quadrants. No high pitch or tinkling sounds, resonant to percussion. Extremities: No cyanosis, clubbing, or edema present. Pulses are palpable 2/2. Active ROM to all four extremities. Neuro: Alert and orientated x 4. PERRLA. Cranial nerves 2-12 intact without focal deficit. Skin: Warm, dry, and intact, without rash, erythema, or lesion. Psych: pleasant, cooperative, normal speech, normal affect, no hallucinations, no dysarthia Objective Data Vital Signs Vital Signs: Vital Signs - 24 hr 11/29/24 09:05 11/29/24 12:12 11/29/24 12:44 Temperature 97.9 F Pulse Rate 89 90 96 Respiratory Rate 18 Blood Pressure 145/76 H Pulse Oximetry 96 Oxygen Delivery Fraction of Inspired Oxygen 11/29/24 14:00 11/29/24 16:04 11/29/24 19:37 Temperature 97.5 F L 98.7 F Pulse Rate 76 82 78 Respiratory Rate 18 18 Blood Pressure 136/63 138/68 Pulse Oximetry 100 96 Oxygen Delivery Fraction of Inspired Oxygen 11/29/24 20:00 11/29/24 20:55 11/30/24 00:00 Temperature Pulse Rate 75 80 77 Respiratory Rate Blood Pressure Pulse Oximetry 95 Oxygen Delivery Room Air Fraction of Inspired Oxygen 21 11/30/24 04:00 11/30/24 06:00 Temperature 97.2 F L Pulse Rate 76 74 Respiratory Rate 18 Blood Pressure 126/88 Pulse Oximetry 94 Oxygen Delivery Fraction of Inspired Oxygen Intake/Output Intake/Output: Intake & Output 11/27/24 11/28/24 11/29/24 11/30/24 23:59 23:59 23:59 23:59 Intake Total 50 1340 Output Total 1600 Balance 50 -260 Meds/Results Medications: Active Medications Generic Name Dose Route Start Last Admin Trade Name Freq PRN Reason Stop Dose Admin Acetaminophen 650 mg 11/28/24 20:05 Acetaminophen 325 Mg Tablet PO Q4H PRN Mild Pain (1-3) or Fever Atorvastatin Calcium 40 mg 11/29/24 21:00 11/29/24 20:17 Atorvastatin 40 Mg Tablet PO 40 mg HS BRE Administration Dextrose 12.5 gm 11/29/24 02:22 Dextrose 50% 25 Gm/50 Ml Syringe IV PUSH PRN PRN Hypoglycemia Protocol Ferrous Sulfate 325 mg 11/30/24 09:00 Ferrous Sulfate [address] BY MOUTH DAILY BRE Furosemide 40 mg 11/29/24 02:25 11/29/24 16:51 Furosemide Inj 40 Mg/4 Ml Vial IV PUSH 40 mg BID BRE Administration Furosemide 40 mg 11/30/24 09:00 Furosemide 40 Mg Tablet PO DAILY BRE Gabapentin 300 mg 11/29/24 13:00 11/29/24 16:51 Gabapentin 300 Mg Capsule PO 300 mg TID BRE Administration Glucose 15 gm 11/29/24 02:22 Glucose Oral Gel 15 Gm Of Glucse In 37.5 Gm Tube PO PRN PRN Hypoglycemia Protocol Ceftriaxone Sodium 1 gm in 50 mls @ 100 mls/hr 11/29/24 20:00 11/29/24 20:19 Rocephin 1 Gm/Ns 50 Ml IVPB 100 mls/hr Q24H BRE Administration Dextrose 1,000 mls @ 100 mls/hr 11/29/24 02:22 Dextrose 5% 1,000 Ml IVPB PRN PRN Hypoglycemia Protocol Insulin Aspart 1 - 2 units 11/29/24 21:00 11/29/24 20:17 Insulin Aspart (*Bkc) 100 Units/Ml SUB-Q 1 units HS [facility] Administration Protocol Insulin Aspart 2 - 5 units 11/29/24 08:00 11/29/24 16:45 Insulin Aspart (*Bkc) 100 Units/Ml SUB-Q Not Given TIDWM [facility] Protocol Losartan Potassium 50 mg 11/29/24 21:00 11/29/24 20:17 Losartan Potassium 50 Mg Tablet PO 50 mg Q12H BRE Administration Melatonin 5 mg 11/29/24 21:00 11/29/24 20:17 Melatonin 5 Mg Tablet PO 5 mg HS BRE Administration Ondansetron HCl 4 mg 11/28/24 20:05 Ondansetron Inj 4 Mg/2 Ml Vial IV PUSH Q4H PRN Nausea Pantoprazole Sodium 40 mg 11/30/24 09:00 Pantoprazole 40 Mg Tablet PO QAM BRE Sotalol HCl 120 mg 11/29/24 12:00 11/29/24 20:17 Sotalol Hcl 40 Mg Tablet PO 120 mg Q12HR BRE Administration Radiology Results: ITS Impressions Chest X-Ray 11/28/24 17:02 IMPRESSION: Left basilar atelectasis versus pneumonia with pleural effusion. Labs Labs: Laboratory Results - last 24 hr 11/28/24 11/29/24 11/29/24 20:15 11:33 11:45 WBC 4.6 RBC 3.23 L Hgb 8.7 L Hct 29.3 L MCV 90.7 MCH 26.9 D MCHC 29.7 L RDW 16.4 H Plt Count 290 MPV 8.8 Immature Gran % (Auto) 0.7 H Neut % (Auto) 74.2 H Lymph % (Auto) 14.5 L Mccone % (Auto) 7.7 Eos % (Auto) 2.0 Baso % (Auto) 0.9 Lymph # (Auto) 0.66 L Mccone # (Auto) 0.4 Eos # (Auto) 0.1 Baso # (Auto) 0.0 Abs Immat Gran (auto) 0.03 Absolute Neuts (auto) 3.4 Absolute Nucleated RBC 0.000 Band Neutrophils % Not Reportable Nucleated RBC % 0.0 Platelet Estimate Adequate Hypochromasia 1+ Schistocytes None seen PT 16.8 H D INR 1.3 APTT 37.7 H Sodium 136 L Potassium 3.6 Chloride 103 Carbon Dioxide 31 H Anion Gap 2 L BUN 23 H Creatinine 0.72 Estim Creat Clear Calc 78 Estimated GFR > 60 Glucose 130 H POC Capillary Glucose 129 H Calcium 7.4 L Iron TIBC Vitamin B12 Folate TSH (Reflex) Crossmatch See Detail 11/29/24 11/29/24 11/29/24 16:45 18:15 19:49 WBC RBC Hgb 8.7 L Hct 29.6 L MCV MCH MCHC RDW Plt Count MPV Immature Gran % (Auto) Neut % (Auto) Lymph % (Auto) Mccone % (Auto) Eos % (Auto) Baso % (Auto) Lymph # (Auto) Mccone # (Auto) Eos # (Auto) Baso # (Auto) Abs Immat Gran (auto) Absolute Neuts (auto) Absolute Nucleated RBC Band Neutrophils % Nucleated RBC % Platelet Estimate Hypochromasia Schistocytes PT INR APTT Sodium Potassium Chloride Carbon Dioxide Anion Gap BUN Creatinine Estim Creat Clear Calc Estimated GFR Glucose POC Capillary Glucose 170 H 202 H Calcium Iron TIBC Vitamin B12 Folate TSH (Reflex) Crossmatch 11/30/24 11/30/24 05:38 08:08 WBC 4.8 RBC 3.03 L Hgb 8.2 L Hct 27.3 L MCV 90.1 MCH 27.1 MCHC 30.0 L RDW 16.4 H Plt Count 266 MPV 9.1 Immature Gran % (Auto) 0.4 Neut % (Auto) 68.4 Lymph % (Auto) 18.5 Mccone % (Auto) 9.8 H Eos % (Auto) 2.1 Baso % (Auto) 0.8 Lymph # (Auto) 0.89 L Mccone # (Auto) 0.5 Eos # (Auto) 0.1 Baso # (Auto) 0.0 Abs Immat Gran (auto) 0.02 Absolute Neuts (auto) 3.3 Absolute Nucleated RBC 0.000 Band Neutrophils % Nucleated RBC % 0.0 Platelet Estimate Hypochromasia Schistocytes PT INR APTT Sodium 134 L Potassium 3.6 Chloride 102 Carbon Dioxide 30 Anion Gap 2 L BUN 19 Creatinine 0.64 L Estim Creat Clear Calc 86 Estimated GFR > 60 Glucose 122 H POC Capillary Glucose 118 H Calcium 7.3 L Iron 25 L TIBC 188 L Vitamin B12 898.0 Folate 5.6 TSH (Reflex) 1.980 Crossmatch Quality VTE Prophylaxis VTE prophylaxis: mechanical ordered
[2024-11-30 10:10] LABS: Alanine Aminotransferase 15 U/L (6-50); Albumin Level 1.9 g/dL (3.5-5.1); Alkaline Phosphatase 84 U/L (38-126); Aspartate Amino Transferase 30 U/L (17-59); Bilirubin,Total 0.2 mg/dL (0.2-1.3)
--- NOTE | 2024-11-30 11:55 | P.PNAN_ITS ---
Anes - Initial Pre Proc Eval Procedure: Operation Date: 11/30/24 15:00 Proposed Procedures p Esophagogastroduodenoscopy & Colonoscopy - Robin Sanchez MD Date/Time: 11/30/24 11:55 Surgeon: Judah Jacobs PA-C Pre Op Diagnosis: Peripheral edema, Anemia, Generalized weakness, UT Patient Data Age: 79 Gender: M Height: 1.83 m Weight: 81.7 kg Last Vital Signs Temp 36.2 C L 11/30/24 06:00 Pulse 80 11/30/24 08:05 Resp 18 11/30/24 06:00 BP 126/88 11/30/24 06:00 Pulse Ox 94 11/30/24 06:00 O2 Del Method Room Air 11/30/24 08:35 FiO2 21 11/29/24 20:55 Allergies Allergy/AdvReac Type Severity Reaction Status Date / Time No Known Allergies Allergy Verified 11/28/24 15:48 Home Medications ?Medication ?Instructions ?Recorded ?Confirmed ?Type acetaminophen 500 mg tablet 1,000 mg PO Q8H 09/05/24 11/28/24 History apixaban 5 mg tablet 5 mg PO BID 09/05/24 11/28/24 History aspirin 81 mg chewable tablet 81 mg PO DAILY 09/05/24 11/28/24 History atorvastatin 40 mg tablet (Lipitor) 40 mg PO HS 09/05/24 11/28/24 History cholecalciferol (vitamin D3) 25 2,000 unit PO DAILY 09/05/24 11/28/24 History mcg (1,000 unit) tablet cyanocobalamin (vitamin B-12) 1,000 mcg PO DAILY 09/05/24 11/28/24 History 1,000 mcg tablet ferrous sulfate 325 mg (65 mg 325 mg PO DAILY 09/05/24 11/28/24 History iron) tablet gabapentin 300 mg capsule 300 mg PO TID 09/05/24 11/28/24 History lidocaine 5 % topical patch 2 patch topical Q24H 09/05/24 11/28/24 History pantoprazole 40 mg tablet,delayed 40 mg PO QAM 09/05/24 11/28/24 History release polyethylene glycol 3350 17 gram 17 g PO DAILY 09/05/24 11/28/24 History oral powder packet sennosides 8.6 mg tablet 17.2 mg PO DAILY 09/05/24 11/28/24 History oxycodone 5 mg tablet 5 mg PO Q6H PRN pain rated 1-10 09/19/24 11/28/24 Rx #28 tabs calcium carbonate (Antacid Calcium) 430 mg PO HS 11/28/24 11/28/24 History cetirizine 10 mg tablet (24Hour 10 mg PO DAILY 11/28/24 11/28/24 History Allergy) fluticasone propionate 50 1 spray intranasal DAILY 11/28/24 11/28/24 History mcg/actuation nasal spray,suspension (Flonase Allergy Relief) furosemide 20 mg tablet (Lasix) 40 mg PO DAILY 11/28/24 11/28/24 History guaifenesin 600 mg tablet, 600 mg PO Q12H PRN congestion 11/28/24 11/28/24 History extended release 12 hr (Mucinex) losartan 50 mg tablet 50 mg PO Q12H 11/28/24 11/28/24 History melatonin 5 mg capsule 5 mg PO HS 11/28/24 11/28/24 History metformin 750 mg tablet,extended 750 mg PO QPM 11/28/24 11/28/24 History release 24 hr potassium chloride 10 mEq 20 meq PO DAILY 11/28/24 11/28/24 History tablet,extended release (Klor-Con) sotalol 120 mg tablet 120 mg PO Q12H 11/28/24 11/28/24 History Laboratory Tests 11/29/24 11/29/24 11/29/24 11:33 16:45 18:15 WBC 4.6 K/mm3 (4.5-10.0) RBC 3.23 L M/mm3 (4.6-6.20) Hgb 8.7 L g/dL 8.7 L g/dL (14.0-18.0) (14.0-18.0) Hct 29.3 L % 29.6 L % (42.0-52.0) (42.0-52.0) MCV 90.7 fl (80-100) MCH 26.9 D pg (26-34) MCHC 29.7 L g/dl (32-36) RDW 16.4 H % (11.5-14.5) Plt Count 290 k/mm3 (150-375) MPV 8.8 fl (7.4-10.4) Immature Gran % (Auto) 0.7 H % (0-0.5) Neut % (Auto) 74.2 H % (45.5-73.1) Lymph % (Auto) 14.5 L % (18.3-44.2) [place] % (Auto) 7.7 % (2.6-8.5) Eos % (Auto) 2.0 % (0-4.4) Baso % (Auto) 0.9 % (0.2-1.2) Lymph # (Auto) 0.66 L K/mm3 (0.9-3.2) [place] # (Auto) 0.4 K/mm3 (0.1-0.6) Eos # (Auto) 0.1 K/mm3 (0-0.3) Baso # (Auto) 0.0 K/mm3 (0.0-0.1) Abs Immat Gran (auto) 0.03 K/mm3 (0.00-0.031) Absolute Neuts (auto) 3.4 K/mm3 (1.3-6.7) Absolute Nucleated RBC 0.000 K/mm3 (0.0-0.012) Band Neutrophils % Not Reportable Nucleated RBC % 0.0 % (0.0-0.2) Platelet Estimate Adequate (Adequate) Hypochromasia 1+ Schistocytes None seen PT 16.8 H D Seconds (11.1-14.7) INR 1.3 APTT 37.7 H Seconds (22.3-36.8) Sodium 136 L mmol/L (137-145) Potassium 3.6 mmol/L (3.4-5.0) Chloride 103 mmol/L (98-107) Carbon Dioxide 31 H mmol/L (22-30) Anion Gap 2 L mmol/L (4-12) BUN 23 H mg/dL (9-20) Creatinine 0.72 mg/dL (0.7-1.3) Estim Creat Clear Calc 78 ml/min Estimated GFR > 60 (59 - ) Glucose 130 H mg/dL (65-110) POC Capillary Glucose 170 H mg/dl (65-105) Calcium 7.4 L mg/dL (8.4-10.2) Iron TIBC % Saturation Total Bilirubin Direct Bilirubin AST ALT Alkaline Phosphatase Total Protein Albumin Vitamin B12 Folate TSH (Reflex) 04/22/25 04/23/25 04/23/25 19:49 05:38 08:08 WBC 4.8 K/mm3 (4.5-10.0) RBC 3.03 L M/mm3 (4.6-6.20) Hgb 8.2 L g/dL (14.0-18.0) Hct 27.3 L % (42.0-52.0) MCV 90.1 fl (80-100) MCH 27.1 pg (26-34) MCHC 30.0 L g/dl (32-36) RDW 16.4 H % (11.5-14.5) Plt Count 266 k/mm3 (150-375) MPV 9.1 fl (7.4-10.4) Immature Gran % (Auto) 0.4 % (0-0.5) Neut % (Auto) 68.4 % (45.5-73.1) Lymph % (Auto) 18.5 % (18.3-44.2) [place] % (Auto) 9.8 H % (2.6-8.5) Eos % (Auto) 2.1 % (0-4.4) Baso % (Auto) 0.8 % (0.2-1.2) Lymph # (Auto) 0.89 L K/mm3 (0.9-3.2) [place] # (Auto) 0.5 K/mm3 (0.1-0.6) Eos # (Auto) 0.1 K/mm3 (0-0.3) Baso # (Auto) 0.0 K/mm3 (0.0-0.1) Abs Immat Gran (auto) 0.02 K/mm3 (0.00-0.031) Absolute Neuts (auto) 3.3 K/mm3 (1.3-6.7) Absolute Nucleated RBC 0.000 K/mm3 (0.0-0.012) Band Neutrophils % Nucleated RBC % 0.0 % (0.0-0.2) Platelet Estimate Hypochromasia Schistocytes PT INR APTT Sodium 134 L mmol/L (137-145) Potassium 3.6 mmol/L (3.4-5.0) Chloride 102 mmol/L (98-107) Carbon Dioxide 30 mmol/L (22-30) Anion Gap 2 L mmol/L (4-12) BUN 19 mg/dL (9-20) Creatinine 0.64 L mg/dL (0.7-1.3) Estim Creat Clear Calc 86 ml/min Estimated GFR > 60 (59 - ) Glucose 122 H mg/dL (65-110) POC Capillary Glucose 202 H mg/dl 118 H mg/dl (65-105) (65-105) Calcium 7.3 L mg/dL (8.4-10.2) Iron 25 L ug/dL (49-181) TIBC 188 L ug/dL (265-497) % Saturation Pending Total Bilirubin 0.2 mg/dL (0.2-1.3) Direct Bilirubin 0.0 mg/dL (0-0.3) AST 30 U/L (17-59) ALT 15 U/L (6-50) Alkaline Phosphatase 84 U/L (38-126) Total Protein 5.0 L g/dL (6.3-8.2) Albumin 1.9 L g/dL (3.5-5.1) Vitamin B12 898.0 pg/mL (239-931) Folate 5.6 ng/mL (2.76->20) TSH (Reflex) 1.980 uIU/mL (0.465-4.68) Patient hx anesthesia problems: none Family hx anesthesia problems: none Results Review: All pre-operative results and documents have been reviewed as part of the pre- operative evaluation. [facility] Past Medical History Medical History CAD (coronary artery disease) Prostate cancer sp prostatectomy Pacemaker Hypocalcemia HTN (hypertension) Afib Age related osteoporosis Hemothorax with pneumothorax, traumatic Urinary retention Recurrent falls Cachexia Protein calorie malnutrition Malaise and fatigue Surgical History Surgical History Hx of CABG Previous back surgery H/O prostatectomy Family History Family History (Updated 11/28/24 @ 21:31 by Isaura Mckeon RN) Father Acute myocardial infarction Mother Diabetes mellitus Social History Social History Smoking packs per day: 1 Smoking cigarettes per day: 20.0 Years smoked: 30 Smoking pack-years: 30.00 Smoking status: Former smoker Tobacco type: cigarettes Alcohol intake: never Substance use: never Do You Feel Safe in your Home?: Yes Lack of Transportation: No Lack of Food: Never True Current Housing: I Have Housing Concerned About Future Housing: No Difficulty Paying Gas/Electric Bills: No Difficulty Paying for Meds: No Currently Unemployed: No Education: High School Diploma/GED Difficulty w/ Childcare or Family Care: No Spiritual care concerns: No Anes - Eval Final PreProcedure Day of Procedure 11/30/24 11:55 Patient weight: normal Heart: regular rate and rhythm Lungs: clear to auscultation and normal air movement Airway: Mallampati scale class II Neurological: alert and oriented Last oral intake: >/= 8 hours ASA classification: IV Emergent: no Anesthetic plan: proceed Anesthesia type and monitoring: general GIVS and standard monitoring Results Review: All pre-operative results and documents have been reviewed as part of the pre- operative evaluation. Informed Consent: The patient's anesthetic plan and its attendant risks and benefits were discussed with the patient/family/POA. Questions were solicited and answers provided to the satisfaction of the patient/family/POA.
[2024-11-30] MEDS: LACTATED RINGERS 1,000 ML 150 ML IV CONT (12:00)
[2024-11-30 12:05] LABS: Glucose Point of Care 96 mg/dl (65-105)
--- NOTE | 2024-11-30 12:19 | SUR.OPER ---
EGD [id number]. Colonoscopy start time 1220.
--- NOTE | 2024-11-30 12:38 | SUR.OPER ---
Sigmoid colon polyp unretrievable. Dr. Poole notified and aware.
--- NOTE | 2024-11-30 13:12 | SUR.PHASEII ---
Pt to CT scan
--- NOTE | 2024-11-30 15:33 | P.CONGS_ITS ---
Assessment and Plan Assessment and plan (1) Colonic mass: Code(s): K63.89 - Other specified diseases of intestine Status: Acute Assessment and Plan: Patient found to have a malignant-appearing ascending colon mass on colonoscopy today that is large and nearly obstructing. Biopsies pending, although this appears to be colon cancer. CT scan of the chest, abdomen, and pelvis has been ordered for staging workup. CEA ordered. The patient will surgical resection in the near future as this is a nearly obstructing colon mass. He has multiple comorbidities and significant malnutrition with an albumin of 1.9, which is concerning for surgical complications an anastomotic breakdown. We will allow him to have clear liquids and Ensure supplements for now. We will also order a PICC line and start TPN to try to boost his nutrition and get his albumin at least above 2.5, but hopefully higher. 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 Continue to hold for now. (4) Afib: Code(s): I48.91 - Unspecified atrial fibrillation Status: Acute (5) Protein calorie malnutrition: Code(s): E46 - Unspecified protein-calorie malnutrition Status: Acute Assessment and Plan: * He has had unintentional weight loss of 20 lb in the past 2 months. His nutritional markers are poor. His albumin is 1.9. This increases risks for surgery and concerns breakdown of his anastomosis. Dietitian evaluated the patient today and started him on supplements. Will order PICC line and start TPN. (6) Generalized weakness: Code(s): R53.1 - Weakness Status: Acute Assessment and Plan: * Patient with recurrent falls with multiple rib fractures and hemothorax/pneumothorax treated at [facility] about a month ago. He eventually went to [facility] and came into the ED here from rehab. He reports he has not been able to ambulate in the past month due to his generalized weakness and lower extremity swelling. (7) Anemia: Qualifiers: Anemia type: iron deficiency Iron deficiency anemia type: unspecified iron deficiency Qualified Code(s): D50.9 - Iron deficiency anemia, unspecified Code(s): D64.9 - Anemia, unspecified Status: Acute Assessment and Plan: * In review of his labs, he has had anemia since July. Could be related to the colon cancer. Trend labs. (8) Pacemaker: Code(s): Z95.0 - Presence of cardiac pacemaker Status: Acute (9) HTN (hypertension): Code(s): I10 - Essential (primary) hypertension Status: Acute Plan I have discussed the patient's case and plan of care with Dr. Haney. History of Present Illness Consult details Consult date: 11/30/24 Reason for consult: other (Large ascending colon mass) Requesting physician: Robin Sanchez MD Narrative: This is an 79-year-old man who we have been asked to see in surgical consultation for an ascending colon mass. He presented to the ED from [facility] where he was residing for the past few weeks after having recurrent falls resulting in a hospitalization at [facility] with multiple rib fractures and hemothorax/pneumothorax. He reports having generalized weakness over the past few months and has not been able to ambulate since his discharge to rehab. He has noticed lower extremity swelling, which he reports makes it difficult to try standing or ambulating. Who was brought in for evaluation 2 days ago to the ED for evaluation of his lower extremity swelling. Workup in the ED showed anemia with a hemoglobin of 7.4 that has got as low as 6.7. He required blood transfusion and his hemoglobin is now at 8.2. He had a chest x-ray that showed left basilar atelectasis versus pneumonia with pleural effusion. He has been treated with antibiotics for this. GI was consulted due to the anemia. The patient has never had a colonoscopy. He had an EGD that was normal and his colonoscopy showed a large obstructing malignant-appearing mass in the ascending colon. They were unable to traverse the mass as there was only a small lumen open. He was able to tolerate the bowel prep prior to his colonoscopy and reportedly had clear bowels by the end of the prep. He denies any recent issues with nausea, vomiting, poor appetite, or changes in his bowels. He denies any abdominal pain or bloating. He has had about a 20 lb weight loss in the last 2 months that was unintentional. He has a history of prostate cancer about 10-12 years ago and is status post a prostatectomy. He has never had any other abdominal surgery. Review of Systems 2 Review of Systems: All systems reviewed & are unremarkable except as noted in HPI and below PMFSH Past Medical History Medical History CAD (coronary artery disease) Prostate cancer sp prostatectomy Pacemaker Hypocalcemia HTN (hypertension) Afib Age related osteoporosis Hemothorax with pneumothorax, traumatic Urinary retention Recurrent falls Cachexia Protein calorie malnutrition Malaise and fatigue Surgical History Surgical History Hx of CABG Previous back surgery H/O prostatectomy Family History Family History Father Acute myocardial infarction Mother Diabetes mellitus Social History Social History Smoking packs per day: 1 Smoking cigarettes per day: 20.0 Years smoked: 30 Smoking pack-years: 30.00 Smoking status: Former smoker Tobacco type: cigarettes Alcohol intake: never Substance use: never Do You Feel Safe in your Home?: Yes Lack of Transportation: No Lack of Food: Never True Current Housing: I Have Housing Concerned About Future Housing: No Difficulty Paying Gas/Electric Bills: No Difficulty Paying for Meds: No Currently Unemployed: No Education: High School Diploma/GED Difficulty w/ Childcare or Family Care: No Spiritual care concerns: No Meds Home Medications and Allergies Home Medications ?Medication ?Instructions ?Recorded ?Confirmed ?Type acetaminophen 500 mg tablet 1,000 mg PO Q8H 09/05/24 11/28/24 History apixaban 5 mg tablet 5 mg PO BID 09/05/24 11/28/24 History aspirin 81 mg chewable tablet 81 mg PO DAILY 09/05/24 11/28/24 History atorvastatin 40 mg tablet (Lipitor) 40 mg PO HS 09/05/24 11/28/24 History cholecalciferol (vitamin D3) 25 2,000 unit PO DAILY 09/05/24 11/28/24 History mcg (1,000 unit) tablet cyanocobalamin (vitamin B-12) 1,000 mcg PO DAILY 09/05/24 11/28/24 History 1,000 mcg tablet ferrous sulfate 325 mg (65 mg 325 mg PO DAILY 09/05/24 11/28/24 History iron) tablet gabapentin 300 mg capsule 300 mg PO TID 09/05/24 11/28/24 History lidocaine 5 % topical patch 2 patch topical Q24H 09/05/24 11/28/24 History pantoprazole 40 mg tablet,delayed 40 mg PO QAM 09/05/24 11/28/24 History release polyethylene glycol 3350 17 gram 17 g PO DAILY 09/05/24 11/28/24 History oral powder packet sennosides 8.6 mg tablet 17.2 mg PO DAILY 09/05/24 11/28/24 History oxycodone 5 mg tablet 5 mg PO Q6H PRN pain rated 1-10 09/19/24 11/28/24 Rx #28 tabs calcium carbonate (Antacid Calcium) 430 mg PO HS 11/28/24 11/28/24 History cetirizine 10 mg tablet (24Hour 10 mg PO DAILY 11/28/24 11/28/24 History Allergy) fluticasone propionate 50 1 spray intranasal DAILY 11/28/24 11/28/24 History mcg/actuation nasal spray,suspension (Flonase Allergy Relief) furosemide 20 mg tablet (Lasix) 40 mg PO DAILY 11/28/24 11/28/24 History guaifenesin 600 mg tablet, 600 mg PO Q12H PRN congestion 11/28/24 11/28/24 History extended release 12 hr (Mucinex) losartan 50 mg tablet 50 mg PO Q12H 11/28/24 11/28/24 History melatonin 5 mg capsule 5 mg PO HS 11/28/24 11/28/24 History metformin 750 mg tablet,extended 750 mg PO QPM 11/28/24 11/28/24 History release 24 hr potassium chloride 10 mEq 20 meq PO DAILY 11/28/24 11/28/24 History tablet,extended release (Klor-Con) sotalol 120 mg tablet 120 mg PO Q12H 11/28/24 11/28/24 History Allergies Allergy/AdvReac Type Severity Reaction Status Date / Time No Known Allergies Allergy Verified 11/30/24 12:09 Vital Signs Vital Signs - 24 hr 11/29/24 16:04 11/29/24 19:37 11/29/24 20:00 Temperature 98.7 F Pulse Rate 82 78 75 Respiratory Rate 18 Blood Pressure 138/68 Pulse Oximetry 96 Oxygen Delivery Fraction of Inspired Oxygen 11/29/24 20:55 11/30/24 00:00 11/30/24 04:00 Temperature Pulse Rate 80 77 76 Respiratory Rate Blood Pressure Pulse Oximetry 95 Oxygen Delivery Room Air Fraction of Inspired Oxygen 21 11/30/24 06:00 11/30/24 08:05 11/30/24 08:35 Temperature 97.2 F L Pulse Rate 74 80 Respiratory Rate 18 Blood Pressure 126/88 Pulse Oximetry 94 Oxygen Delivery Room Air Fraction of Inspired Oxygen 11/30/24 12:10 11/30/24 12:35 11/30/24 12:45 Temperature 97 F L Pulse Rate 75 76 76 Respiratory Rate 20 14 14 Blood Pressure 123/70 99/57 L 104/58 L Pulse Oximetry 97 97 98 Oxygen Delivery Room Air Room Air Room Air Fraction of Inspired Oxygen 11/30/24 12:55 11/30/24 13:51 11/30/24 13:58 Temperature Pulse Rate 76 76 Respiratory Rate 14 18 Blood Pressure 110/64 141/79 H Pulse Oximetry 98 96 Oxygen Delivery Room Air Room Air Fraction of Inspired Oxygen 11/30/24 14:10 Temperature Pulse Rate Respiratory Rate Blood Pressure Pulse Oximetry Oxygen Delivery Room Air Fraction of Inspired Oxygen Exam 2 Const: General: comfortable and no acute distress Nutritional Appearance: a verage body habitus Orientation/consciousness: patient oriented x3 HENMT: Head: normocephalic and atraumatic Ears: hearing grossly normal bilaterally Mouth: Yes moist mucous membranes Eyes: General: appearance normal, both eyes and all related structures P upils: Equal, round and reactive pupils present Neck: Neck: normal visual inspection and full ROM Resp: Effort & Inspection: no respiratory distress Auscultation: clear to auscultation bilaterally Cardio: Rate: regular rate Rhythm: regular rhythm Peripheral pulses: P eripheral pulses 2+ throughout GI: Inspection: non-distended and scar (Vertical lower midline scar) GI Palp: Yes Soft to palpation, No Tenderness to palpation present (GI), No Guarding due to palpation present (GI), Yes No hepatosplenomegaly present, Yes Hernia present (small reducible nontender umbilical hernia) umbilical < 3 cm and No Rebound tenderness present Auscultation: normal bowel sounds Skin: General skin exam: normal color Neuro: General: moves all extremities and no focal motor deficits Speech: n ormal speech Motor exam (neuro): 5/5 motor strength present throughout Extrem: General: normal to inspection and edema bilateral (1+ pitting lower extremity edema, equal bilaterally) Psych: Mental Status: mental status grossly normal Attitude: cooperative Insight: Good insight present (Psych) Judgement: Good judgement present (Psych) Results Labs 11/30/24 05:38 11/30/24 05:38 Labs: Abnormal lab results 11/29/24 11/29/24 11/29/24 Range/Units 16:45 18:15 19:49 RBC (4.6-6.20) M/mm3 Hgb 8.7 L (14.0-18.0) g/dL Hct 29.6 L (42.0-52.0) % MCHC (32-36) g/dl RDW (11.5-14.5) % [place] % (Auto) (2.6-8.5) % Lymph # (Auto) (0.9-3.2) K/mm3 Sodium (137-145) mmol/L Anion Gap (4-12) mmol/L Creatinine (0.7-1.3) mg/dL Glucose (65-110) mg/dL POC Capillary Glucose 170 H 202 H (65-105) mg/dl Calcium (8.4-10.2) mg/dL Iron (49-181) ug/dL TIBC (265-497) ug/dL % Saturation (20-50) % Total Protein (6.3-8.2) g/dL Albumin (3.5-5.1) g/dL 11/30/24 11/30/24 Range/Units 05:38 08:08 RBC 3.03 L (4.6-6.20) M/mm3 Hgb 8.2 L (14.0-18.0) g/dL Hct 27.3 L (42.0-52.0) % MCHC 30.0 L (32-36) g/dl RDW 16.4 H (11.5-14.5) % [place] % (Auto) 9.8 H (2.6-8.5) % Lymph # (Auto) 0.89 L (0.9-3.2) K/mm3 Sodium 134 L (137-145) mmol/L Anion Gap 2 L (4-12) mmol/L Creatinine 0.64 L (0.7-1.3) mg/dL Glucose 122 H (65-110) mg/dL POC Capillary Glucose 118 H (65-105) mg/dl Calcium 7.3 L (8.4-10.2) mg/dL Iron 25 L (49-181) ug/dL TIBC 188 L (265-497) ug/dL % Saturation 13 L (20-50) % Total Protein 5.0 L (6.3-8.2) g/dL Albumin 1.9 L (3.5-5.1) g/dL Diabetes panel 11/30/24 Range/Units 05:38 Sodium 134 L (137-145) mmol/L Potassium 3.6 (3.4-5.0) mmol/L Chloride 102 (98-107) mmol/L Carbon Dioxide 30 (22-30) mmol/L BUN 19 (9-20) mg/dL Creatinine 0.64 L (0.7-1.3) mg/dL Glucose 122 H (65-110) mg/dL Calcium 7.3 L (8.4-10.2) mg/dL AST 30 (17-59) U/L ALT 15 (6-50) U/L Alkaline Phosphatase 84 (38-126) U/L Total Protein 5.0 L (6.3-8.2) g/dL Albumin 1.9 L (3.5-5.1) g/dL Calcium panel 11/30/24 Range/Units 05:38 Calcium 7.3 L (8.4-10.2) mg/dL Albumin 1.9 L (3.5-5.1) g/dL Pituitary panel 11/30/24 Range/Units 05:38 Sodium 134 L (137-145) mmol/L Potassium 3.6 (3.4-5.0) mmol/L Chloride 102 (98-107) mmol/L Carbon Dioxide 30 (22-30) mmol/L BUN 19 (9-20) mg/dL Creatinine 0.64 L (0.7-1.3) mg/dL Glucose 122 H (65-110) mg/dL Calcium 7.3 L (8.4-10.2) mg/dL Adrenal panel 11/30/24 Range/Units 05:38 Sodium 134 L (137-145) mmol/L Potassium 3.6 (3.4-5.0) mmol/L Chloride 102 (98-107) mmol/L Carbon Dioxide 30 (22-30) mmol/L BUN 19 (9-20) mg/dL Creatinine 0.64 L (0.7-1.3) mg/dL Glucose 122 H (65-110) mg/dL Calcium 7.3 L (8.4-10.2) mg/dL Total Bilirubin 0.2 (0.2-1.3) mg/dL AST 30 (17-59) U/L ALT 15 (6-50) U/L Alkaline Phosphatase 84 (38-126) U/L Total Protein 5.0 L (6.3-8.2) g/dL Albumin 1.9 L (3.5-5.1) g/dL All other labs normal. Imaging Additional studies: ITS Impressions Chest X-Ray 11/28/24 17:02 IMPRESSION: Left basilar atelectasis versus pneumonia with pleural effusion.
[2024-11-30] MEDS: FERROUS SULFATE 325 MG TABLET DR BY MOUTH (17:27)
[2024-11-30] MEDS: GABAPENTIN 300 MG CAPSULE PO (17:28)
[2024-11-30] MEDS: PANTOPRAZOLE 40 MG TABLET PO (17:28)
[2024-11-30 17:29] LABS: Glucose Point of Care 133 mg/dl (65-105)
--- NOTE | 2024-11-30 18:25 | WPDONCCN ---
Assessment and Plan Assessment and plan (1) Colonic mass: Code(s): K63.89 - Other specified diseases of intestine Status: Acute Assessment and Plan: Patient admitted for anemia with iron deficiency noted in labs done at admission. Patient underwent colonoscopy on 11/30/2024 and was found to have a completely obstructive fungating mass in the ascending colon measuring 3-4 cm. Biopsies pending, but as you colon cancer. CT scan of the chest, abdomen, and pelvis performed 4 to Lizbeth showed thickening along the distal transverse colon concerning for cancer. There was no metastatic disease. There were small right and moderate left pleural effusion with cardiomegaly. At this time issue seems to be localized colon cancer and with pending obstruction he will need a surgical intervention sooner than later. I explained this to the patient and his at bedside Patient would need to see Oncology as outpatient to go over the pathology report of the resected specimen. It seems that patient has seen Dr. Guzman as an outpatient for some hematologic condition. He agrees to see him 3-4 weeks post hospitalization for discussion of pathological staging and management plan postsurgery. HPI Data of Consult Date/Time: 11/30/24 18:25 Requesting Physician: Judah Jacobs PA-C Primary Care Provider: Gege Jackson, Consult Narrative Narrative: Jose Manuel Luna is a 79 year old male with past history of history of CABG and pacemaker, atrial fibrillation, GERD, high cholesterol on Lasix presented to the hospital on 11/29/24 with complaints of swelling of hands and feet and not being able to walk. He was residing in rehab prior. CBC at admission showed severe anemia with hemoglobin of 6.7, BNP of 1250, urine with positive nitrates and do +leukocyte esterase, chest x-ray shows atelectasis versus pneumonia with pleural effusion. Patient was admitted and found to have severe iron deficiency with iron saturations of 13%. Patient underwent colonoscopy today, 11/30/24 which showed completely obstructive fungating mass in the ascending colon about 3-4 cm. Biopsies were taken. Patient underwent a CT scan of chest abdomen and pelvis also on 11/30/2024 which shows thickening along the distal transverse colon concerning for cancer. There was no metastatic disease. There were small right and moderate left pleural effusion and cardiomegaly was noted as well. General surgery has seen the patient and was awaiting the CT scan above to formulate further management plan the Review of Systems Review of Systems: Patient reports that he has been staying in the rehab for past few months due to a fall at home in August 2024. Patient reports that for past 2 years he has lost about 20-30 lb. He has been from his and has not been able to cook. His was also at bedside. Patient reports worsening lower extremity edema. He was not able to walk for past few weeks and requested admission to the hospital. He denies any chest pain, shortness of breath, cough, hemoptysis. He denies any abdominal pain. Patient reports that he has been passing bowels okay without any pain although he reports some diarrhea. He denies any hematochezia or melena. [facility] Past Medical History Medical History CAD (coronary artery disease) Prostate cancer sp prostatectomy Pacemaker Hypocalcemia HTN (hypertension) Afib Age related osteoporosis Hemothorax with pneumothorax, traumatic Urinary retention Recurrent falls Cachexia Protein calorie malnutrition Malaise and fatigue Surgical History Surgical History Hx of CABG Previous back surgery H/O prostatectomy Family History Family History Father Acute myocardial infarction Mother Diabetes mellitus Social History Social History Smoking packs per day: 1 Smoking cigarettes per day: 20.0 Years smoked: 30 Smoking pack-years: 30.00 Smoking status: Former smoker Tobacco type: cigarettes Alcohol intake: never Substance use: never Do You Feel Safe in your Home?: Yes Lack of Transportation: No Lack of Food: Never True Current Housing: I Have Housing Concerned About Future Housing: No Difficulty Paying Gas/Electric Bills: No Difficulty Paying for Meds: No Currently Unemployed: No Education: High School Diploma/GED Difficulty w/ Childcare or Family Care: No Spiritual care concerns: No Meds Home Medications and Allergies Home Medications ?Medication ?Instructions ?Recorded ?Confirmed ?Type acetaminophen 500 mg tablet 1,000 mg PO Q8H 09/05/24 11/28/24 History apixaban 5 mg tablet 5 mg PO BID 09/05/24 11/28/24 History aspirin 81 mg chewable tablet 81 mg PO DAILY 09/05/24 11/28/24 History atorvastatin 40 mg tablet (Lipitor) 40 mg PO HS 09/05/24 11/28/24 History cholecalciferol (vitamin D3) 25 2,000 unit PO DAILY 09/05/24 11/28/24 History mcg (1,000 unit) tablet cyanocobalamin (vitamin B-12) 1,000 mcg PO DAILY 09/05/24 11/28/24 History 1,000 mcg tablet ferrous sulfate 325 mg (65 mg 325 mg PO DAILY 09/05/24 11/28/24 History iron) tablet gabapentin 300 mg capsule 300 mg PO TID 09/05/24 11/28/24 History lidocaine 5 % topical patch 2 patch topical Q24H 09/05/24 11/28/24 History pantoprazole 40 mg tablet,delayed 40 mg PO QAM 09/05/24 11/28/24 History release polyethylene glycol 3350 17 gram 17 g PO DAILY 09/05/24 11/28/24 History oral powder packet sennosides 8.6 mg tablet 17.2 mg PO DAILY 09/05/24 11/28/24 History oxycodone 5 mg tablet 5 mg PO Q6H PRN pain rated 1-10 09/19/24 11/28/24 Rx #28 tabs calcium carbonate (Antacid Calcium) 430 mg PO HS 11/28/24 11/28/24 History cetirizine 10 mg tablet (24Hour 10 mg PO DAILY 11/28/24 11/28/24 History Allergy) fluticasone propionate 50 1 spray intranasal DAILY 11/28/24 11/28/24 History mcg/actuation nasal spray,suspension (Flonase Allergy Relief) furosemide 20 mg tablet (Lasix) 40 mg PO DAILY 11/28/24 11/28/24 History guaifenesin 600 mg tablet, 600 mg PO Q12H PRN congestion 11/28/24 11/28/24 History extended release 12 hr (Mucinex) losartan 50 mg tablet 50 mg PO Q12H 11/28/24 11/28/24 History melatonin 5 mg capsule 5 mg PO HS 11/28/24 11/28/24 History metformin 750 mg tablet,extended 750 mg PO QPM 11/28/24 11/28/24 History release 24 hr potassium chloride 10 mEq 20 meq PO DAILY 11/28/24 11/28/24 History tablet,extended release (Klor-Con) sotalol 120 mg tablet 120 mg PO Q12H 11/28/24 11/28/24 History Allergies Allergy/AdvReac Type Severity Reaction Status Date / Time No Known Allergies Allergy Verified 11/30/24 12:09 Vital Signs Vital Signs - 24 hr 11/29/24 19:37 11/29/24 20:00 11/29/24 20:55 Temperature 37.1 C Pulse Rate 78 75 80 Respiratory Rate 18 Blood Pressure 138/68 Pulse Oximetry 96 95 Oxygen Delivery Room Air Fraction of Inspired Oxygen 21 11/30/24 00:00 11/30/24 04:00 11/30/24 06:00 Temperature 36.2 C L Pulse Rate 77 76 74 Respiratory Rate 18 Blood Pressure 126/88 Pulse Oximetry 94 Oxygen Delivery Fraction of Inspired Oxygen 11/30/24 08:05 11/30/24 08:35 11/30/24 12:10 Temperature 36.1 C L Pulse Rate 80 75 Respiratory Rate 20 Blood Pressure 123/70 Pulse Oximetry 97 Oxygen Delivery Room Air Room Air Fraction of Inspired Oxygen 11/30/24 12:35 11/30/24 12:45 11/30/24 12:55 Temperature Pulse Rate 76 76 76 Respiratory Rate 14 14 14 Blood Pressure 99/57 L 104/58 L 110/64 Pulse Oximetry 97 98 98 Oxygen Delivery Room Air Room Air Room Air Fraction of Inspired Oxygen 11/30/24 13:51 11/30/24 13:58 11/30/24 14:10 Temperature Pulse Rate 76 Respiratory Rate 18 Blood Pressure 141/79 H Pulse Oximetry 96 Oxygen Delivery Room Air Room Air Fraction of Inspired Oxygen 11/30/24 16:00 Temperature Pulse Rate 87 Respiratory Rate Blood Pressure Pulse Oximetry Oxygen Delivery Fraction of Inspired Oxygen Exam Narrative: General: chronic illl appearing, elderly male in no acute distress HEENT: normocephalic, atraumatic. Mucous membranes moist. EOMI, PERRLA, bilateral sclera anicteric, no conjunctival injection. Neck supple without JVD, lymphadenopathy, or bruit. Respiratory: clear to ascultation bilaterally. No rales/rhonic/wheezes. Cardiovascular: Regular rate and rhythm, no m/g/r Abdomen: Soft, round, no pulsatile masses, nondistended and nontender. No rebound, no guarding. No CVA tenderness, no hepatosplenomegaly. Bowel sounds present to all four quadrants. Extremities: Patient has 2+ edema in bilateral lower extremity Neuro: Alert and orientated x 4. PERRLA. Cranial nerves 2-12 intact without focal deficit. Skin: Warm, dry, and intact, without rash, erythema, or lesion. Psych: pleasant, cooperative, normal speech, normal affect, no hallucinations, no dysarthia Results Labs 11/30/24 05:38 11/30/24 05:38 Labs: Short CBC 11/29/24 11/30/24 Range/Units 18:15 05:38 WBC 4.8 (4.5-10.0) K/mm3 Hgb 8.7 L 8.2 L (14.0-18.0) g/dL Hct 29.6 L 27.3 L (42.0-52.0) % Plt Count 266 (150-375) k/mm3 BMP 11/30/24 05:38 Sodium 134 L Potassium 3.6 Chloride 102 Carbon Dioxide 30 BUN 19 Creatinine 0.64 L Glucose 122 H Calcium 7.3 L Liver Function 11/30/24 Range/Units 05:38 Total Bilirubin 0.2 (0.2-1.3) mg/dL Direct Bilirubin 0.0 (0-0.3) mg/dL AST 30 (17-59) U/L ALT 15 (6-50) U/L Alkaline Phosphatase 84 (38-126) U/L Albumin 1.9 L (3.5-5.1) g/dL
[2024-11-30] MEDS: ATORVASTATIN 40 MG TABLET PO (20:59)
[2024-11-30] MEDS: AMOXICILLIN/CLAVULANATE K 875-125 MG TAB 1 TABLET PO (20:59)
[2024-11-30] MEDS: SOTALOL HCL 40 MG TABLET 120 MG PO (20:59)
[2024-11-30] MEDS: MELATONIN 5 MG TABLET PO (20:59)
[2024-11-30] MEDS: LOSARTAN POTASSIUM 50 MG TABLET PO (20:59)
[2024-11-30 21:41] LABS: Glucose Point of Care 124 mg/dl (65-105)
[2024-12-01] VITALS (11 sets, daily range): BP systolic 117–123; BP diastolic 58–71; PULSE 75–79; RESP 16–18; TEMP 36.4–36.6; O2SAT 96–99
[2024-12-01 05:33] LABS: Basophils Percent Auto 0.7 % (0.2-1.2); Eosinophils Absolute Auto 0.1 K/mm3 (0-0.3); Eosinophils Percent Auto 2.4 % (0-4.4); Hematocrit 29.5 % (42.0-52.0); Hemoglobin 8.7 g/dL (14.0-18.0); Immature Granulocyte Absolute 0.03 K/mm3 (0.00-0.031); Immature Granulocyte Percent A 0.7 % (0-0.5); Lymphocytes Absolute Auto 0.93 K/mm3 (0.9-3.2); Lymphocytes Percent Auto 20.4 % (18.3-44.2); Mean Corpuscular HGB Conc 29.5 g/dl (32-36); Mean Corpuscular Hemoglobin 26.3 pg (26-34); Mean Corpuscular Volume 89.1 fl (80-100); Mean Platelet Volume 8.4 fl (7.4-10.4); Monocytes Absolute Auto 0.4 K/mm3 (0.1-0.6); Monocytes Percent Auto 8.8 % (2.6-8.5); Neutrophils Absolute Auto 3.1 K/mm3 (1.3-6.7); Platelet Count Result 276 k/mm3 (150-375); Red Blood Count 3.31 M/mm3 (4.6-6.20); Red Cell Distribution Width 16.3 % (11.5-14.5); White Blood Count 4.6 K/mm3 (4.5-10.0)
[2024-12-01 05:41] LABS: Alanine Aminotransferase 14 U/L (6-50); Alkaline Phosphatase 94 U/L (38-126); Anion Gap -1 mmol/L (4-12); Aspartate Amino Transferase 23 U/L (17-59); Bilirubin,Total 0.4 mg/dL (0.2-1.3); Blood Urea Nitrogen 14 mg/dL (9-20); Calcium 7.3 mg/dL (8.4-10.2); Carbon Dioxide 33 mmol/L (22-30); Chloride 102 mmol/L (98-107); Estimated CRCL calculation 79 ml/min; Estimated Glomerular Filt Rate > 60; Glucose 99 mg/dL (65-110); Potassium 3.6 mmol/L (3.4-5.0); Sodium 134 mmol/L (137-145)
[2024-12-01 05:55] LABS: Anisocytosis 1+; Hypochromasia 1+; Ovalocytes 1+; Platelet Estimate Adequate (Adequate); Schistocytes None Seen
[2024-12-01 06:12] LABS: Carcinoembryonic Antigen 7.8 ng/mL (0.0-3.0)
[2024-12-01 07:58] LABS: Glucose Point of Care 96 mg/dl (65-105)
[2024-12-01] MEDS: AMOXICILLIN/CLAVULANATE K 875-125 MG TAB 1 TABLET PO (08:38)
[2024-12-01] MEDS: LOSARTAN POTASSIUM 50 MG TABLET PO ×2 (08:38→21:32)
[2024-12-01] MEDS: GABAPENTIN 300 MG CAPSULE PO ×3 (08:38→17:42)
[2024-12-01] MEDS: PANTOPRAZOLE 40 MG TABLET PO (08:38)
[2024-12-01] MEDS: FERROUS SULFATE 325 MG TABLET DR BY MOUTH (08:38)
[2024-12-01] MEDS: SOTALOL HCL 40 MG TABLET 120 MG PO ×2 (08:38→21:31)
[2024-12-01 08:58] LABS: Magnesium 2.5 mg/dL (1.6-2.3)
[2024-12-01 09:06] LABS: Transferrin 115 mg/dL (206-381)
[2024-12-01] MEDS: LIDOCAINE 1% PF INJ 5 ML VIAL INFILTRATE (09:15)
--- NOTE | 2024-12-01 11:24 | P.PNIM_ITS ---
Progress Note: A&P Assessment and Plan (1) Colonic mass: Code(s): K63.89 - Other specified diseases of intestine Status: Acute Assessment and Plan: * Colonoscopy 11/30: Completely-obstructing circumferential, fungating, friable, infiltrative, malignant appearing mass observed in ascending colon, approx 3- 4cm. Multiple biopsies taken * GI, Gen Surg following * Oncology consulted, appreciate recommendations * CEA = 7.8 * PICC Line to be established today, to start TPN for nutrition boost and to increase Albumin * Surgical resection through Gen Surg for colonic mass (2) Anemia: Qualifiers: Anemia type: iron deficiency Iron deficiency anemia type: unspecified iron deficiency Qualified Code(s): D50.9 - Iron deficiency anemia, unspecified Code(s): D64.9 - Anemia, unspecified Status: Acute Assessment and Plan: * 1 RBC 11/29 * Telemetry monitoring * Anemia workup, unable do iron panel due to transfusion * Repeat hemoglobin pending * Colonoscopy and EGD yesterday, see above * Stable (3) Acute UTI: Code(s): N39.0 - Urinary tract infection, site not specified Status: Acute Assessment and Plan: * Could be a factor in weakness * Culture showed Klebsiella growth with Rocephin susceptibility * Continue IV Rocephin (4) HTN (hypertension): Code(s): I10 - Essential (primary) hypertension Status: Acute Assessment and Plan: * Continue cozaar * stable (5) Afib: Code(s): I48.91 - Unspecified atrial fibrillation Status: Acute Assessment and Plan: * Continue sotalol * stable (6) Diabetes: Code(s): E11.9 - Type 2 diabetes mellitus without complications Status: Acute Assessment and Plan: * Hold metformin * Diabetic diet * A Accu-Cheks a.c. HS * SSI (7) Weakness: Code(s): R53.1 - Weakness Status: Acute Assessment and Plan: * PT and OT * Ensure t.i.d. * PICC line inserted on 12/01 * TPN for further supplementation (8) Edema: Code(s): R60.9 - Edema, unspecified Status: Acute Assessment and Plan: * Continue IV Lasix * Request outside records Time Spent With Patient Time: Subjective Date/time seen: 12/01/24 11:24 Interval history: 79-year-old male past history of history of CABG and pacemaker, atrial fibrillation, GERD, high cholesterol on Lasix presents the hospital with complaints of swelling of hands and feet and not being able to walk. 12/01/2024 Patient sitting comfortably at bed at time of exam. Colonoscopy performed yesterday, shown to have completely obstructive fungating mass in the ascending colon measuring 3-4 cm. Biopsies pending. Surgical resection needed. Continue supplementing nutrition with Ensure and TPN. Review of Systems Review of Systems: 12 systems were reviewed and are negativ e except for as per HPI. Exam Narrative: General: chronic illl appearing, appears older than stated age. HEENT: normocephalic, atraumatic. Mucous membranes moist. EOMI, PERRLA, bilateral sclera anicteric, no conjunctival injection. Neck supple without JVD, lymphadenopathy, or bruit. Respiratory: clear to ascultation bilaterally. No rales/rhonic/wheezes. Cardiovascular: Regular rate and rhythm, normal S1-S2 upon ascultation. No murmurs, rubs, or clicks. PMI is nondisplaced, capillary refill less than 3 second. Abdomen: Soft, round, no pulsatile masses, nondistended and nontender. No rebound, no guarding. No CVA tenderness, no hepatosplenomegaly. Bowel sounds present to all four quadrants. No high pitch or tinkling sounds, resonant to percussion. Extremities: No cyanosis, clubbing, or edema present. Pulses are palpable 2/2. Active ROM to all four extremities. Neuro: Alert and orientated x 4. PERRLA. Cranial nerves 2-12 intact without focal deficit. Skin: Warm, dry, and intact, without rash, erythema, or lesion. Psych: pleasant, cooperative, normal speech, normal affect, no hallucinations, no dysarthia Objective Data Vital Signs Vital Signs: Vital Signs - 24 hr 11/30/24 12:10 11/30/24 12:35 11/30/24 12:45 Temperature 97 F L Pulse Rate 75 76 76 Respiratory Rate 20 14 14 Blood Pressure 123/70 99/57 L 104/58 L Pulse Oximetry 97 97 98 Oxygen Delivery Room Air Room Air Room Air 11/30/24 12:55 11/30/24 13:51 11/30/24 13:58 Temperature Pulse Rate 76 76 Respiratory Rate 14 18 Blood Pressure 110/64 141/79 H Pulse Oximetry 98 96 Oxygen Delivery Room Air Room Air 11/30/24 14:10 11/30/24 16:00 11/30/24 20:00 Temperature Pulse Rate 87 Respiratory Rate Blood Pressure Pulse Oximetry Oxygen Delivery Room Air Room Air 11/30/24 20:00 11/30/24 21:00 11/30/24 21:34 Temperature 97.6 F Pulse Rate 83 76 Respiratory Rate 18 Blood Pressure 104/68 Pulse Oximetry 94 93 Oxygen Delivery Autopap 12/01/24 00:00 12/01/24 04:00 12/01/24 05:52 Temperature 97.8 F Pulse Rate 79 76 75 Respiratory Rate 16 Blood Pressure 123/71 Pulse Oximetry 96 Oxygen Delivery 12/01/24 08:05 12/01/24 08:38 12/01/24 09:00 Temperature Pulse Rate 76 76 Respiratory Rate Blood Pressure Pulse Oximetry Oxygen Delivery Room Air Intake/Output Intake/Output: Intake & Output 11/28/24 11/29/24 11/30/24 12/01/24 23:59 23:59 23:59 23:59 Intake Total 50 1340 540 Output Total 1600 1 400 Balance 50 -260 539 -400 Meds/Results Medications: Active Medications Generic Name Dose Route Start Last Admin Trade Name Freq PRN Reason Stop Dose Admin Acetaminophen 650 mg 11/28/24 20:05 Acetaminophen 325 Mg Tablet PO Q4H PRN Mild Pain (1-3) or Fever Amoxicillin/Clavulanate Potassium 1 tablet 11/30/24 21:00 12/01/24 08:38 Amoxicillin/Clavulanate K 875-125 Mg Tab PO 12/05/24 09:01 1 tablet Q12HR BRE Administration Atorvastatin Calcium 40 mg 11/29/24 21:00 11/30/24 20:59 Atorvastatin 40 Mg Tablet PO 40 mg HS BRE Administration Dextrose 12.5 gm 11/29/24 02:22 Dextrose 50% 25 Gm/50 Ml Syringe IV PUSH PRN PRN Hypoglycemia Protocol Ferrous Sulfate 325 mg 11/30/24 09:00 12/01/24 08:38 Ferrous Sulfate [address] BY MOUTH 325 mg DAILY BRE Administration Furosemide 40 mg 11/30/24 09:00 Furosemide 40 Mg Tablet PO DAILY BRE Gabapentin 300 mg 11/29/24 13:00 12/01/24 08:38 Gabapentin 300 Mg Capsule PO 300 mg TID BRE Administration Glucose 15 gm 11/29/24 02:22 Glucose Oral Gel 15 Gm Of Glucse In 37.5 Gm Tube PO PRN PRN Hypoglycemia Protocol Dextrose 1,000 mls @ 100 mls/hr 11/29/24 02:22 Dextrose 5% 1,000 Ml IVPB PRN PRN Hypoglycemia Protocol Dextrose 1,000 mls @ 50 mls/hr 12/01/24 08:14 Dextrose 10% IV CONT .Q20H PRN if PN is interrupted Multivitamins 1.25 ml/ 1,002.5 mls @ 40 mls/hr 12/01/24 12:00 Multivitamins 1.25 ml/ Amino IV CONT Acids/Electrolytes/Dextrose .Q24H [facility] Protocol Fat Emulsion Intravenous 250 mls @ 20.833 mls/hr 12/01/24 12:00 Lipids 20% IVPB Q24H BRE Insulin Aspart 1 - 2 units 11/29/24 21:00 11/30/24 21:37 Insulin Aspart (*Bkc) 100 Units/Ml SUB-Q Not Given HS [facility] Protocol Insulin Aspart 2 - 5 units 11/29/24 08:00 12/01/24 08:39 Insulin Aspart (*Bkc) 100 Units/Ml SUB-Q Not Given TIDWM [facility] Protocol Losartan Potassium 50 mg 11/29/24 21:00 12/01/24 08:38 Losartan Potassium 50 Mg Tablet PO 50 mg Q12H BRE Administration Melatonin 5 mg 11/29/24 21:00 11/30/24 20:59 Melatonin 5 Mg Tablet PO 5 mg HS [facility] Administration Ondansetron HCl 4 mg 11/28/24 20:05 Ondansetron Inj 4 Mg/2 Ml Vial IV PUSH Q4H PRN Nausea Pantoprazole Sodium 40 mg 11/30/24 09:00 12/01/24 08:38 Pantoprazole 40 Mg Tablet PO 40 mg QAM BRE Administration Sodium Chloride 10 ml 12/01/24 14:00 Central Line Flush IV PUSH Q8HR BRE Sodium Chloride 10 ml 12/01/24 09:42 Central Line Flush IV PUSH PRN PRN with TPN bag changes Sodium Chloride 20 ml 12/01/24 09:42 Central Line Flush IV PUSH PRN PRN after blood draws Sotalol HCl 120 mg 11/29/24 12:00 12/01/24 08:38 Sotalol Hcl 40 Mg Tablet PO 120 mg Q12HR BRE Administration Radiology Results: ITS Impressions Chest/Abdomen/Pelvis CT 11/30/24 13:27 IMPRESSION: 1. Prominent wall thickening along the distal transverse colon concerning for colon cancer. No lesion suspicious for metastatic disease. 2. Small right and [id number] left pleural effusions with associated atelectasis in the bilateral lower lobes, left greater than right. 3. Cardiomegaly enlargement of the central pulmonary arteries consistent with pulmonary arterial hypertension. 4. Moderate-sized bilateral fat-containing inguinal hernias. 5. Minimal nonspecific ascites in the deep pelvis. Chest X-Ray 12/01/24 09:42 Impression: Right-sided PICC line in satisfactory position. Small left pleural effusion with probable left basilar pulmonary edema/atelectasis. Correlate clinically for pneumonia. Labs Labs: Laboratory Results - last 24 hr 11/30/24 11/30/24 11/30/24 05:38 12:01 16:59 WBC RBC Hgb Hct MCV MCH MCHC RDW Plt Count MPV Immature Gran % (Auto) Neut % (Auto) Lymph % (Auto) Dodge % (Auto) Eos % (Auto) Baso % (Auto) Lymph # (Auto) Dodge # (Auto) Eos # (Auto) Baso # (Auto) Abs Immat Gran (auto) Absolute Neuts (auto) Absolute Nucleated RBC Band Neutrophils % Nucleated RBC % Platelet Estimate Hypochromasia Anisocytosis Ovalocytes Schistocytes Sodium Potassium Chloride Carbon Dioxide Anion Gap BUN Creatinine Estim Creat Clear Calc Estimated GFR Glucose POC Capillary Glucose 96 133 H Calcium Magnesium % Saturation 13 L Transferrin Total Bilirubin AST ALT Alkaline Phosphatase Total Protein Albumin Carcinoembryonic Ag 11/30/24 12/01/24 12/01/24 21:36 05:20 07:56 WBC 4.6 RBC 3.31 L Hgb 8.7 L Hct 29.5 L MCV 89.1 MCH 26.3 MCHC 29.5 L RDW 16.3 H Plt Count 276 MPV 8.4 Immature Gran % (Auto) 0.7 H Neut % (Auto) 67.0 Lymph % (Auto) 20.4 Dodge % (Auto) 8.8 H Eos % (Auto) 2.4 Baso % (Auto) 0.7 Lymph # (Auto) 0.93 Dodge # (Auto) 0.4 Eos # (Auto) 0.1 Baso # (Auto) 0.0 Abs Immat Gran (auto) 0.03 Absolute Neuts (auto) 3.1 Absolute Nucleated RBC 0.000 Band Neutrophils % Not Reportable Nucleated RBC % 0.0 Platelet Estimate Adequate Hypochromasia 1+ Anisocytosis 1+ Ovalocytes 1+ Schistocytes None seen Sodium 134 L Potassium 3.6 Chloride 102 Carbon Dioxide 33 H Anion Gap -1 L BUN 14 D Creatinine 0.71 Estim Creat Clear Calc 79 Estimated GFR > 60 Glucose 99 POC Capillary Glucose 124 H 96 Calcium 7.3 L Magnesium 2.5 H % Saturation Transferrin 115 L Total Bilirubin 0.4 AST 23 ALT 14 Alkaline Phosphatase 94 Total Protein 5.0 L Albumin 2.0 L Carcinoembryonic Ag 7.8 H Quality VTE Prophylaxis VTE prophylaxis: mechanical ordered
[2024-12-01 11:50] LABS: Glucose Point of Care 97 mg/dl (65-105)
[2024-12-01] MEDS: AMINO ACIDS 5%/D15W/E-LYTES/CA 1,000 ML with MULTIVITAMINS-12 INJ VIAL 1 1.25 ML, MULTI... 40 ML IV CONT (12:12)
[2024-12-01] MEDS: FAT EMULSIONS IV 20% 250 ML 20.83 ML IVPB (12:12)
--- NOTE | 2024-12-01 12:22 | PM.PNGS ---
Progress Note: A&P Assessment and Plan (1) Colonic mass: Code(s): K63.89 - Other specified diseases of intestine Status: Acute Assessment and Plan: Found to have a malignant-appearing ascending colon mass right on colonoscopy. 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 As it is nearly completely obstructing, he will need surgical resection. We will continue to work on improving his nutrition preoperatively with Ensure supplements and TPN. PICC line placed this morning. We will continue to trend labs and encourage supplement intake. He is on a clear liquid diet but may have ensure enlive supplements. 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 Status: Acute Assessment and Plan: Eliquis on hold (4) Afib: Code(s): I48.91 - Unspecified atrial fibrillation Status: Acute (5) Protein calorie malnutrition: Code(s): E46 - Unspecified protein-calorie malnutrition Status: Acute Assessment and Plan: Continue TPN and Ensure supplements (6) Generalized weakness: Code(s): R53.1 - Weakness Status: Acute (7) Anemia: Qualifiers: Anemia type: iron deficiency Iron deficiency anemia type: unspecified iron deficiency Qualified Code(s): D50.9 - Iron deficiency anemia, unspecified Code(s): D64.9 - Anemia, unspecified Status: Acute (8) Pacemaker: Code(s): Z95.0 - Presence of cardiac pacemaker Status: Acute (9) HTN (hypertension): Code(s): I10 - Essential (primary) hypertension Status: Acute Plan I have discussed the patient's case and plan of care with Dr. Haney. Subjective Subjective Date/Time Seen: 12/01/24 12:22 Patient reports: no new complaints, tolerating liquids well, flatus and bowel movement Interval history: No acute changes overnight. Exam Const: General: comfortable and no acute distress Orientation/consciousness: patient oriented x3 GI: Inspection: non-distended GI Palp: Yes Soft to palpation, No Tenderness to palpation present (GI) and No Guarding due to palpation present (GI) Auscultation: normal bowel sounds Objective Data Vital Signs Vital Signs: Vital Signs - 24 hr 11/30/24 12:35 11/30/24 12:45 11/30/24 12:55 Temperature Pulse Rate 76 76 76 Respiratory Rate 14 14 14 Blood Pressure 99/57 L 104/58 L 110/64 Pulse Oximetry 97 98 98 Oxygen Delivery Room Air Room Air Room Air 11/30/24 13:51 11/30/24 13:58 11/30/24 14:10 Temperature Pulse Rate 76 Respiratory Rate 18 Blood Pressure 141/79 H Pulse Oximetry 96 Oxygen Delivery Room Air Room Air 11/30/24 16:00 11/30/24 20:00 11/30/24 20:00 Temperature Pulse Rate 87 83 Respiratory Rate Blood Pressure Pulse Oximetry Oxygen Delivery Room Air 11/30/24 21:00 11/30/24 21:34 12/01/24 00:00 Temperature 97.6 F Pulse Rate 76 79 Respiratory Rate 18 Blood Pressure 104/68 Pulse Oximetry 94 93 Oxygen Delivery Autopap 12/01/24 04:00 12/01/24 05:52 12/01/24 08:05 Temperature 97.8 F Pulse Rate 76 75 76 Respiratory Rate 16 Blood Pressure 123/71 Pulse Oximetry 96 Oxygen Delivery 12/01/24 08:38 12/01/24 09:00 Temperature Pulse Rate 76 Respiratory Rate Blood Pressure Pulse Oximetry Oxygen Delivery Room Air Intake/Output Intake/Output: Intake & Output 11/28/24 11/29/24 11/30/24 12/01/24 23:59 23:59 23:59 23:59 Intake Total 50 1340 540 0 Output Total 1600 1 400 Balance 50 -260 539 -400 Meds/Results Medications: Active Medications Generic Name Dose Route Start Last Admin Trade Name Freq PRN Reason Stop Dose Admin Acetaminophen 650 mg 11/28/24 20:05 Acetaminophen 325 Mg Tablet PO Q4H PRN Mild Pain (1-3) or Fever Amoxicillin/Clavulanate Potassium 1 tablet 11/30/24 21:00 12/01/24 08:38 Amoxicillin/Clavulanate K 875-125 Mg Tab PO 12/05/24 09:01 1 tablet Q12HR BRE Administration Atorvastatin Calcium 40 mg 11/29/24 21:00 11/30/24 20:59 Atorvastatin 40 Mg Tablet PO 40 mg HS BRE Administration Dextrose 12.5 gm 11/29/24 02:22 Dextrose 50% 25 Gm/50 Ml Syringe IV PUSH PRN PRN Hypoglycemia Protocol Ferrous Sulfate 325 mg 11/30/24 09:00 12/01/24 08:38 Ferrous Sulfate [address] BY MOUTH 325 mg DAILY BRE Administration Furosemide 40 mg 11/30/24 09:00 Furosemide 40 Mg Tablet PO DAILY BRE Gabapentin 300 mg 11/29/24 13:00 12/01/24 12:13 Gabapentin 300 Mg Capsule PO 300 mg TID BRE Administration Glucose 15 gm 11/29/24 02:22 Glucose Oral Gel 15 Gm Of Glucse In 37.5 Gm Tube PO PRN PRN Hypoglycemia Protocol Dextrose 1,000 mls @ 100 mls/hr 11/29/24 02:22 Dextrose 5% 1,000 Ml IVPB PRN PRN Hypoglycemia Protocol Dextrose 1,000 mls @ 50 mls/hr 12/01/24 08:14 Dextrose 10% IV CONT .Q20H PRN if PN is interrupted Multivitamins 1.25 ml/ 1,002.5 mls @ 40 mls/hr 12/01/24 12:00 12/01/24 12:12 Multivitamins 1.25 ml/ Amino IV CONT 40 mls/hr Acids/Electrolytes/Dextrose .Q24H BRE Administration Protocol Fat Emulsion Intravenous 250 mls @ 20.833 mls/hr 12/01/24 12:00 12/01/24 12:12 Lipids 20% IVPB 20.83 mls/hr Q24H BRE Administration Insulin Aspart 1 - 2 units 11/29/24 21:00 11/30/24 21:37 Insulin Aspart (*Bkc) 100 Units/Ml SUB-Q Not Given HS BRE Protocol Insulin Aspart 2 - 5 units 11/29/24 08:00 12/01/24 12:12 Insulin Aspart (*Bkc) 100 Units/Ml SUB-Q Not Given TIDWM BRE Protocol Losartan Potassium 50 mg 11/29/24 21:00 12/01/24 08:38 Losartan Potassium 50 Mg Tablet PO 50 mg Q12H BRE Administration Melatonin 5 mg 11/29/24 21:00 11/30/24 20:59 Melatonin 5 Mg Tablet PO 5 mg HS BRE Administration Ondansetron HCl 4 mg 11/28/24 20:05 Ondansetron Inj 4 Mg/2 Ml Vial IV PUSH Q4H PRN Nausea Pantoprazole Sodium 40 mg 11/30/24 09:00 12/01/24 08:38 Pantoprazole 40 Mg Tablet PO 40 mg QAM BRE Administration Sodium Chloride 10 ml 12/01/24 14:00 Central Line Flush IV PUSH Q8HR BRE Sodium Chloride 10 ml 12/01/24 09:42 Central Line Flush IV PUSH PRN PRN with TPN bag changes Sodium Chloride 20 ml 12/01/24 09:42 Central Line Flush IV PUSH PRN PRN after blood draws Sotalol HCl 120 mg 11/29/24 12:00 12/01/24 08:38 Sotalol Hcl 40 Mg Tablet PO 120 mg Q12HR BRE Administration Radiology Results: ITS Impressions Chest/Abdomen/Pelvis CT 11/30/24 13:27 IMPRESSION: 1. Prominent wall thickening along the distal transverse colon concerning for colon cancer. No lesion suspicious for metastatic disease. 2. Small right and [id number] left pleural effusions with associated atelectasis in the bilateral lower lobes, left greater than right. 3. Cardiomegaly enlargement of the central pulmonary arteries consistent with pulmonary arterial hypertension. 4. Moderate-sized bilateral fat-containing inguinal hernias. 5. Minimal nonspecific ascites in the deep pelvis. Chest X-Ray 12/01/24 09:42 Impression: Right-sided PICC line in satisfactory position. Small left pleural effusion with probable left basilar pulmonary edema/atelectasis. Correlate clinically for pneumonia. Labs Labs: Laboratory Results - last 24 hr 11/30/24 11/30/24 11/30/24 05:38 16:59 21:36 WBC RBC Hgb Hct MCV MCH MCHC RDW Plt Count MPV Immature Gran % (Auto) Neut % (Auto) Lymph % (Auto) [place] % (Auto) Eos % (Auto) Baso % (Auto) Lymph # (Auto) [place] # (Auto) Eos # (Auto) Baso # (Auto) Abs Immat Gran (auto) Absolute Neuts (auto) Absolute Nucleated RBC Band Neutrophils % Nucleated RBC % Platelet Estimate Hypochromasia Anisocytosis Ovalocytes Schistocytes Sodium Potassium Chloride Carbon Dioxide Anion Gap BUN Creatinine Estim Creat Clear Calc Estimated GFR Glucose POC Capillary Glucose 133 H 124 H Calcium Magnesium % Saturation 13 L Transferrin Total Bilirubin AST ALT Alkaline Phosphatase Total Protein Albumin Carcinoembryonic Ag 12/01/24 12/01/24 12/01/24 05:20 07:56 11:47 WBC 4.6 RBC 3.31 L Hgb 8.7 L Hct 29.5 L MCV 89.1 MCH 26.3 MCHC 29.5 L RDW 16.3 H Plt Count 276 MPV 8.4 Immature Gran % (Auto) 0.7 H Neut % (Auto) 67.0 Lymph % (Auto) 20.4 [place] % (Auto) 8.8 H Eos % (Auto) 2.4 Baso % (Auto) 0.7 Lymph # (Auto) 0.93 [place] # (Auto) 0.4 Eos # (Auto) 0.1 Baso # (Auto) 0.0 Abs Immat Gran (auto) 0.03 Absolute Neuts (auto) 3.1 Absolute Nucleated RBC 0.000 Band Neutrophils % Not Reportable Nucleated RBC % 0.0 Platelet Estimate Adequate Hypochromasia 1+ Anisocytosis 1+ Ovalocytes 1+ Schistocytes None seen Sodium 134 L Potassium 3.6 Chloride 102 Carbon Dioxide 33 H Anion Gap -1 L BUN 14 D Creatinine 0.71 Estim Creat Clear Calc 79 Estimated GFR > 60 Glucose 99 POC Capillary Glucose 96 97 Calcium 7.3 L Magnesium 2.5 H % Saturation Transferrin 115 L Total Bilirubin 0.4 AST 23 ALT 14 Alkaline Phosphatase 94 Total Protein 5.0 L Albumin 2.0 L Carcinoembryonic Ag 7.8 H
--- NOTE | 2024-12-01 13:31 | PCNFU ---
Nutrition Follow-Up Complete: Unintended weight loss as related to weakness as evidenced 10% (20 ibs) in 2 months. goal:Adequate intake of at least 75% of meals/supplements Patient will continue current goal. Pt current nutrition is Clear liquids with Ensure Enlive TID/TPN. Last recorded weight is 77.5 kg, down from admit weight 80.9 kg on admit. Bowel Motility: +BM reported 11/30 Labs Reviewed: Na 134, Alb 2.0,Hgb 29.5, Hgb 8.7 Meds Noted:Lasix, NovoLog, Protonix, Clinimix E 12/22, 20% Lipid Emulsion. Skin: WNL Additional Notes: Patient had colonoscopy showing complete obstruction. Oncology consult. PICC placed and TPN starting today providing 1182 kcal/48 gm protein. Clear liquids continues with Ensure Enlive TID for additional 350 kcal and 20 gm protein. Agree with diet orders at this time. Will monitor weight, labs, skin, diet orders, meds every Thursday and Thursday.
[2024-12-01] MEDS: CALCIUM GLUC 1,000 MG/NS 50 ML 1,000 MG/50 ML BAG 100 MG IVPB (14:54)
[2024-12-01] MEDS: CENTRAL LINE FLUSH 10 ML IV PUSH ×2 (15:27→21:33)
--- NOTE | 2024-12-01 16:13 | P.PNGI_ITS ---
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 Status: Acute Assessment and Plan: on hold (3) GERD (gastroesophageal reflux disease): Qualifiers: Esophagitis presence: esophagitis presence not specified Qualified Code(s): K21.9 - Gastro-esophageal reflux disease without esophagitis Code(s): K21.9 - Gastro-esophageal reflux disease without esophagitis Status: Acute (4) Iron deficiency anemia: Code(s): D50.9 - Iron deficiency anemia, unspecified Status: Acute Assessment and Plan: probably due to colon cancer (5) Protein calorie malnutrition: Code(s): E46 - Unspecified protein-calorie malnutrition Status: Acute Subjective Date/time seen: 12/01/24 16:13 Interval history: colonoscopy yesterday with large mass in rt colon already evaluated by oncology and surgery no new issues Review of Systems Review of Systems: All systems reviewed & are unremarkable except as noted in HPI and below Exam Const: General: comfortable and no acute distress Orientat ion/consciousness: patient oriented x3 HENMT: Face/Nose/Sinus: Normal nares present Eyes: General: appearance normal, both eyes and all related structures Neck: Neck: supple Resp: Effort & Inspection: normal respiratory effort Cardio: Rate: regular rate GI: Inspection: non-distended GI Palp: Yes Soft to palpation, No Tenderness to palpation present (GI) and No Guarding due to palpation present (GI) Auscultation: normal bowel sounds Skin: General skin exam: no rashes or lesions noted Neuro: Speech: normal speech Objective Data Vital Signs Vital Signs: Vital Signs - 24 hr 11/30/24 20:00 11/30/24 20:00 11/30/24 21:00 Temperature Pulse Rate 83 Respiratory Rate Blood Pressure Pulse Oximetry 94 Oxygen Delivery Room Air Autopap 11/30/24 21:34 12/01/24 00:00 12/01/24 04:00 Temperature 97.6 F Pulse Rate 76 79 76 Respiratory Rate 18 Blood Pressure 104/68 Pulse Oximetry 93 Oxygen Delivery 12/01/24 05:52 12/01/24 08:05 12/01/24 08:38 Temperature 97.8 F Pulse Rate 75 76 76 Respiratory Rate 16 Blood Pressure 123/71 Pulse Oximetry 96 Oxygen Delivery 12/01/24 09:00 12/01/24 12:05 12/01/24 14:00 Temperature 97.6 F Pulse Rate 75 76 Respiratory Rate 18 Blood Pressure 118/68 Pulse Oximetry 99 Oxygen Delivery Room Air Intake/Output Intake/Output: Intake & Output 11/28/24 11/29/24 11/30/24 12/01/24 23:59 23:59 23:59 23:59 Intake Total 50 1340 540 230 Output Total 1600 1 400 Balance 50 -260 539 -170 Meds/Results Medications: Active Medications Generic Name Dose Route Start Last Admin Trade Name Freq PRN Reason Stop Dose Admin Acetaminophen 650 mg 11/28/24 20:05 Acetaminophen 325 Mg Tablet PO Q4H PRN Mild Pain (1-3) or Fever Atorvastatin Calcium 40 mg 11/29/24 21:00 11/30/24 20:59 Atorvastatin 40 Mg Tablet PO 40 mg HS BRE Administration Dextrose 12.5 gm 11/29/24 02:22 Dextrose 50% 25 Gm/50 Ml Syringe IV PUSH PRN PRN Hypoglycemia Protocol Ferrous Sulfate 325 mg 11/30/24 09:00 12/01/24 08:38 Ferrous Sulfate [address] BY MOUTH 325 mg DAILY BRE Administration Furosemide 40 mg 11/30/24 09:00 Furosemide 40 Mg Tablet PO DAILY BRE Gabapentin 300 mg 11/29/24 13:00 12/01/24 12:13 Gabapentin 300 Mg Capsule PO 300 mg TID BRE Administration Glucose 15 gm 11/29/24 02:22 Glucose Oral Gel 15 Gm Of Glucse In 37.5 Gm Tube PO PRN PRN Hypoglycemia Protocol Dextrose 1,000 mls @ 100 mls/hr 11/29/24 02:22 Dextrose 5% 1,000 Ml IVPB PRN PRN Hypoglycemia Protocol Dextrose 1,000 mls @ 50 mls/hr 12/01/24 08:14 Dextrose 10% IV CONT .Q20H PRN if PN is interrupted Multivitamins 1.25 ml/ 1,002.5 mls @ 40 mls/hr 12/01/24 12:00 12/01/24 12:12 Multivitamins 1.25 ml/ Amino IV CONT 40 mls/hr Acids/Electrolytes/Dextrose .Q24H BRE Administration Protocol Fat Emulsion Intravenous 250 mls @ 20.833 mls/hr 12/01/24 12:00 12/01/24 12:12 Lipids 20% IVPB 20.83 mls/hr Q24H BRE Administration Ceftriaxone Sodium 1 gm in 50 mls @ 100 mls/hr 12/01/24 14:00 12/01/24 15:30 Rocephin 1 Gm/Ns 50 Ml IVPB 100 mls/hr Q24H BRE Administration Insulin Aspart 1 - 2 units 11/29/24 21:00 11/30/24 21:37 Insulin Aspart (*Bkc) 100 Units/Ml SUB-Q Not Given HS BRE Protocol Insulin Aspart 2 - 5 units 11/29/24 08:00 12/01/24 12:12 Insulin Aspart (*Bkc) 100 Units/Ml SUB-Q Not Given TIDWM BRE Protocol Losartan Potassium 50 mg 11/29/24 21:00 12/01/24 08:38 Losartan Potassium 50 Mg Tablet PO 50 mg Q12H BRE Administration Melatonin 5 mg 11/29/24 21:00 11/30/24 20:59 Melatonin 5 Mg Tablet PO 5 mg HS BRE Administration Ondansetron HCl 4 mg 11/28/24 20:05 Ondansetron Inj 4 Mg/2 Ml Vial IV PUSH Q4H PRN Nausea Pantoprazole Sodium 40 mg 11/30/24 09:00 12/01/24 08:38 Pantoprazole 40 Mg Tablet PO 40 mg QAM BRE Administration Sodium Chloride 10 ml 12/01/24 14:00 12/01/24 15:27 Central Line Flush IV PUSH 10 ml Q8HR BRE Administration Sodium Chloride 10 ml 12/01/24 09:42 Central Line Flush IV PUSH PRN PRN with TPN bag changes Sodium Chloride 20 ml 12/01/24 09:42 Central Line Flush IV PUSH PRN PRN after blood draws Sotalol HCl 120 mg 11/29/24 12:00 12/01/24 08:38 Sotalol Hcl 40 Mg Tablet PO 120 mg Q12HR BRE Administration Radiology Results: ITS Impressions Chest/Abdomen/Pelvis CT 11/30/24 13:27 IMPRESSION: 1. Prominent wall thickening along the distal transverse colon concerning for colon cancer. No lesion suspicious for metastatic disease. 2. Small right and [id number] left pleural effusions with associated atelectasis in the bilateral lower lobes, left greater than right. 3. Cardiomegaly enlargement of the central pulmonary arteries consistent with pulmonary arterial hypertension. 4. Moderate-sized bilateral fat-containing inguinal hernias. 5. Minimal nonspecific ascites in the deep pelvis. Chest X-Ray 12/01/24 09:42 Impression: Right-sided PICC line in satisfactory position. Small left pleural effusion with probable left basilar pulmonary edema/atelectasis. Correlate clinically for pneumonia. Labs Labs: Laboratory Results - last 24 hr 11/30/24 11/30/24 12/01/24 16:59 21:36 05:20 WBC 4.6 RBC 3.31 L Hgb 8.7 L Hct 29.5 L MCV 89.1 MCH 26.3 MCHC 29.5 L RDW 16.3 H Plt Count 276 MPV 8.4 Immature Gran % (Auto) 0.7 H Neut % (Auto) 67.0 Lymph % (Auto) 20.4 [place] % (Auto) 8.8 H Eos % (Auto) 2.4 Baso % (Auto) 0.7 Lymph # (Auto) 0.93 [place] # (Auto) 0.4 Eos # (Auto) 0.1 Baso # (Auto) 0.0 Abs Immat Gran (auto) 0.03 Absolute Neuts (auto) 3.1 Absolute Nucleated RBC 0.000 Band Neutrophils % Not Reportable Nucleated RBC % 0.0 Platelet Estimate Adequate Hypochromasia 1+ Anisocytosis 1+ Ovalocytes 1+ Schistocytes None seen Sodium 134 L Potassium 3.6 Chloride 102 Carbon Dioxide 33 H Anion Gap -1 L BUN 14 D Creatinine 0.71 Estim Creat Clear Calc 79 Estimated GFR > 60 Glucose 99 POC Capillary Glucose 133 H 124 H Calcium 7.3 L Magnesium 2.5 H Transferrin 115 L Total Bilirubin 0.4 AST 23 ALT 14 Alkaline Phosphatase 94 Total Protein 5.0 L Albumin 2.0 L Carcinoembryonic Ag 7.8 H 12/01/24 12/01/24 07:56 11:47 WBC RBC Hgb Hct MCV MCH MCHC RDW Plt Count MPV Immature Gran % (Auto) Neut % (Auto) Lymph % (Auto) [place] % (Auto) Eos % (Auto) Baso % (Auto) Lymph # (Auto) [place] # (Auto) Eos # (Auto) Baso # (Auto) Abs Immat Gran (auto) Absolute Neuts (auto) Absolute Nucleated RBC Band Neutrophils % Nucleated RBC % Platelet Estimate Hypochromasia Anisocytosis Ovalocytes Schistocytes Sodium Potassium Chloride Carbon Dioxide Anion Gap BUN Creatinine Estim Creat Clear Calc Estimated GFR Glucose POC Capillary Glucose 96 97 Calcium Magnesium Transferrin Total Bilirubin AST ALT Alkaline Phosphatase Total Protein Albumin Carcinoembryonic Ag
[2024-12-01 16:57] LABS: Glucose Point of Care 139 mg/dl (65-105)
--- NOTE | 2024-12-01 19:16 | P.PNONC_ITS ---
Progress Note: A&P Assessment and Plan (1) Colonic mass: Code(s): K63.89 - Other specified diseases of intestine Status: Acute Assessment and Plan: Patient admitted for anemia with iron deficiency noted in labs done at admission. Patient underwent colonoscopy on 11/30/2024 and was found to have a completely obstructive fungating mass in the ascending colon measuring 3-4 cm. Biopsies pending, but as you colon cancer. CT scan of the chest, abdomen, and pelvis performed 4 to Lizbeth showed thickening along the distal transverse colon concerning for cancer. There was no metastatic disease. There were small right and moderate left pleural effusion with cardiomegaly. At this time issue seems to be localized colon cancer and with pending obstruction he will need a surgical intervention sooner than later. I explained this to the patient and his at bedside General surgery has seen patient today and recommended TPN to raise the nutrition level. Patient is also taking Ensure 3 times a day. Plan is for surgery on Thursday12/05/2024. Subjective Date/time seen: 12/01/24 19:16 Interval history: Patient resting comfortably on the chair. He is aware that surgery is planned for 12/05/2024. There were no overnight events Review of Systems Review of Systems He denies any chest pain, shortness of breath, cough, hemoptysis. He denies any abdominal pain. Patient reports that he has been passing bowels okay without any pain although he reports some diarrhea. He denies any hematochezia or melena. Rest of the 12 point review of system is negative Exam Narrative: General: chronic illl appearing, elderly male in no acute distress HEENT: normocephalic, atraumatic. Mucous membranes moist. EOMI, PERRLA, bilateral sclera anicteric, no conjunctival injection. Neck supple without JVD, lymphadenopathy, or bruit. Respiratory: clear to ascultation bilaterally. No rales/rhonic/wheezes. Cardiovascular: Regular rate and rhythm, no m/g/r Abdomen: Soft, round, no pulsatile masses, nondistended and nontender. No rebound, no guarding. No CVA tenderness, no hepatosplenomegaly. Bowel sounds present to all four quadrants. Extremities: Patient has 2+ edema in bilateral lower extremity Neuro: Alert and orientated x 4. PERRLA. Cranial nerves 2-12 intact without focal deficit. Skin: Warm, dry, and intact, without rash, erythema, or lesion. Psych: pleasant, cooperative, normal speech, normal affect, no hallucinations, no dysarthia Objective Data Vital Signs Vital Signs: Vital Signs - 24 hr 11/30/24 20:00 11/30/24 20:00 11/30/24 21:00 Temperature Pulse Rate 83 Respiratory Rate Blood Pressure Pulse Oximetry 94 Oxygen Delivery Room Air Autopap 11/30/24 21:34 12/01/24 00:00 12/01/24 04:00 Temperature 36.4 C Pulse Rate 76 79 76 Respiratory Rate 18 Blood Pressure 104/68 Pulse Oximetry 93 Oxygen Delivery 12/01/24 05:52 12/01/24 08:05 12/01/24 08:38 Temperature 36.6 C Pulse Rate 75 76 76 Respiratory Rate 16 Blood Pressure 123/71 Pulse Oximetry 96 Oxygen Delivery 12/01/24 09:00 12/01/24 12:05 12/01/24 14:00 Temperature 36.4 C Pulse Rate 75 76 Respiratory Rate 18 Blood Pressure 118/68 Pulse Oximetry 99 Oxygen Delivery Room Air 12/01/24 16:04 Temperature Pulse Rate 76 Respiratory Rate Blood Pressure Pulse Oximetry Oxygen Delivery Intake/Output Intake/Output: Intake & Output 11/28/24 11/29/24 11/30/24 12/01/24 23:59 23:59 23:59 23:59 Intake Total 50 9160 241 3503 Output Total 1600 1 850 Balance 50 -260 539 504 Meds/Results Medications: Active Medications Generic Name Dose Route Start Last Admin Trade Name Freq PRN Reason Stop Dose Admin Acetaminophen 650 mg 11/28/24 20:05 Acetaminophen 325 Mg Tablet PO Q4H PRN Mild Pain (1-3) or Fever Atorvastatin Calcium 40 mg 11/29/24 21:00 11/30/24 20:59 Atorvastatin 40 Mg Tablet PO 40 mg HS BRE Administration Dextrose 12.5 gm 11/29/24 02:22 Dextrose 50% 25 Gm/50 Ml Syringe IV PUSH PRN PRN Hypoglycemia Protocol Ferrous Sulfate 325 mg 11/30/24 09:00 12/01/24 08:38 Ferrous Sulfate [address] BY MOUTH 325 mg DAILY BRE Administration Furosemide 40 mg 11/30/24 09:00 Furosemide 40 Mg Tablet PO DAILY BRE Gabapentin 300 mg 11/29/24 13:00 12/01/24 17:42 Gabapentin 300 Mg Capsule PO 300 mg TID BRE Administration Glucose 15 gm 11/29/24 02:22 Glucose Oral Gel 15 Gm Of Glucse In 37.5 Gm Tube PO PRN PRN Hypoglycemia Protocol Dextrose 1,000 mls @ 100 mls/hr 11/29/24 02:22 Dextrose 5% 1,000 Ml IVPB PRN PRN Hypoglycemia Protocol Dextrose 1,000 mls @ 50 mls/hr 12/01/24 08:14 Dextrose 10% IV CONT .Q20H PRN if PN is interrupted Multivitamins 1.25 ml/ 1,002.5 mls @ 40 mls/hr 12/01/24 12:00 12/01/24 12:12 Multivitamins 1.25 ml/ Amino IV CONT 40 mls/hr Acids/Electrolytes/Dextrose .Q24H BRE Administration Protocol Fat Emulsion Intravenous 250 mls @ 20.833 mls/hr 12/01/24 12:00 12/01/24 12:12 Lipids 20% IVPB 20.83 mls/hr Q24H BRE Administration Ceftriaxone Sodium 1 gm in 50 mls @ 100 mls/hr 12/01/24 14:00 12/01/24 16:00 Rocephin 1 Gm/Ns 50 Ml IVPB Infused Q24H BRE Infusion Insulin Aspart 1 - 2 units 11/29/24 21:00 11/30/24 21:37 Insulin Aspart (*Bkc) 100 Units/Ml SUB-Q Not Given HS BRE Protocol Insulin Aspart 2 - 5 units 11/29/24 08:00 12/01/24 17:02 Insulin Aspart (*Bkc) 100 Units/Ml SUB-Q Not Given TIDWM BRE Protocol Losartan Potassium 50 mg 11/29/24 21:00 12/01/24 08:38 Losartan Potassium 50 Mg Tablet PO 50 mg Q12H BRE Administration Melatonin 5 mg 11/29/24 21:00 11/30/24 20:59 Melatonin 5 Mg Tablet PO 5 mg HS BRE Administration Ondansetron HCl 4 mg 11/28/24 20:05 Ondansetron Inj 4 Mg/2 Ml Vial IV PUSH Q4H PRN Nausea Pantoprazole Sodium 40 mg 11/30/24 09:00 12/01/24 08:38 Pantoprazole 40 Mg Tablet PO 40 mg QAM BRE Administration Sodium Chloride 10 ml 12/01/24 14:00 12/01/24 15:27 Central Line Flush IV PUSH 10 ml Q8HR BRE Administration Sodium Chloride 10 ml 12/01/24 09:42 Central Line Flush IV PUSH PRN PRN with TPN bag changes Sodium Chloride 20 ml 12/01/24 09:42 Central Line Flush IV PUSH PRN PRN after blood draws Sotalol HCl 120 mg 11/29/24 12:00 12/01/24 08:38 Sotalol Hcl 40 Mg Tablet PO 120 mg Q12HR BRE Administration Radiology Results: ITS Impressions Chest/Abdomen/Pelvis CT 11/30/24 13:27 IMPRESSION: 1. Prominent wall thickening along the distal transverse colon concerning for colon cancer. No lesion suspicious for metastatic disease. 2. Small right and [id number] left pleural effusions with associated atelectasis in the bilateral lower lobes, left greater than right. 3. Cardiomegaly enlargement of the central pulmonary arteries consistent with pulmonary arterial hypertension. 4. Moderate-sized bilateral fat-containing inguinal hernias. 5. Minimal nonspecific ascites in the deep pelvis. Chest X-Ray 12/01/24 09:42 Impression: Right-sided PICC line in satisfactory position. Small left pleural effusion with probable left basilar pulmonary edema/atelectasis. Correlate clinically for pneumonia. Labs Labs: Laboratory Results - last 24 hr 11/30/24 12/01/24 12/01/24 21:36 05:20 07:56 WBC 4.6 RBC 3.31 L Hgb 8.7 L Hct 29.5 L MCV 89.1 MCH 26.3 MCHC 29.5 L RDW 16.3 H Plt Count 276 MPV 8.4 Immature Gran % (Auto) 0.7 H Neut % (Auto) 67.0 Lymph % (Auto) 20.4 [place] % (Auto) 8.8 H Eos % (Auto) 2.4 Baso % (Auto) 0.7 Lymph # (Auto) 0.93 [place] # (Auto) 0.4 Eos # (Auto) 0.1 Baso # (Auto) 0.0 Abs Immat Gran (auto) 0.03 Absolute Neuts (auto) 3.1 Absolute Nucleated RBC 0.000 Band Neutrophils % Not Reportable Nucleated RBC % 0.0 Platelet Estimate Adequate Hypochromasia 1+ Anisocytosis 1+ Ovalocytes 1+ Schistocytes None seen Sodium 134 L Potassium 3.6 Chloride 102 Carbon Dioxide 33 H Anion Gap -1 L BUN 14 D Creatinine 0.71 Estim Creat Clear Calc 79 Estimated GFR > 60 Glucose 99 POC Capillary Glucose 124 H 96 Calcium 7.3 L Magnesium 2.5 H Transferrin 115 L Total Bilirubin 0.4 AST 23 ALT 14 Alkaline Phosphatase 94 Total Protein 5.0 L Albumin 2.0 L Carcinoembryonic Ag 7.8 H 12/01/24 12/01/24 11:47 16:43 WBC RBC Hgb Hct MCV MCH MCHC RDW Plt Count MPV Immature Gran % (Auto) Neut % (Auto) Lymph % (Auto) [place] % (Auto) Eos % (Auto) Baso % (Auto) Lymph # (Auto) [place] # (Auto) Eos # (Auto) Baso # (Auto) Abs Immat Gran (auto) Absolute Neuts (auto) Absolute Nucleated RBC Band Neutrophils % Nucleated RBC % Platelet Estimate Hypochromasia Anisocytosis Ovalocytes Schistocytes Sodium Potassium Chloride Carbon Dioxide Anion Gap BUN Creatinine Estim Creat Clear Calc Estimated GFR Glucose POC Capillary Glucose 97 139 H Calcium Magnesium Transferrin Total Bilirubin AST ALT Alkaline Phosphatase Total Protein Albumin Carcinoembryonic Ag
[2024-12-01] MEDS: MELATONIN 5 MG TABLET PO (21:32)
[2024-12-01] MEDS: ATORVASTATIN 40 MG TABLET PO (21:32)
[2024-12-02] VITALS (10 sets, daily range): BP systolic 121–141; BP diastolic 59–62; PULSE 75–93; RESP 16–18; TEMP 36.3–36.8; O2SAT 96–99
[2024-12-02 00:28] LABS: Glucose Point of Care 168 mg/dl (65-105)
[2024-12-02 05:31] LABS: Basophils Percent Auto 0.4 % (0.2-1.2); Eosinophils Absolute Auto 0.2 K/mm3 (0-0.3); Eosinophils Percent Auto 3.1 % (0-4.4); Hematocrit 26.9 % (42.0-52.0); Hemoglobin 7.9 g/dL (14.0-18.0); Immature Granulocyte Absolute 0.02 K/mm3 (0.00-0.031); Immature Granulocyte Percent A 0.4 % (0-0.5); Lymphocytes Absolute Auto 0.98 K/mm3 (0.9-3.2); Lymphocytes Percent Auto 19.3 % (18.3-44.2); Mean Corpuscular HGB Conc 29.4 g/dl (32-36); Mean Corpuscular Hemoglobin 26.9 pg (26-34); Mean Corpuscular Volume 91.5 fl (80-100); Mean Platelet Volume 8.7 fl (7.4-10.4); Monocytes Absolute Auto 0.5 K/mm3 (0.1-0.6); Neutrophils Absolute Auto 3.5 K/mm3 (1.3-6.7); Neutrophils Percent Auto 67.8 % (45.5-73.1); Platelet Count Result 234 k/mm3 (150-375); Red Blood Count 2.94 M/mm3 (4.6-6.20); Red Cell Distribution Width 16.3 % (11.5-14.5); White Blood Count 5.1 K/mm3 (4.5-10.0)
[2024-12-02 05:42] LABS: Alanine Aminotransferase 16 U/L (6-50); Albumin Level 1.9 g/dL (3.5-5.1); Alkaline Phosphatase 79 U/L (38-126); Anion Gap -2 mmol/L (4-12); Aspartate Amino Transferase 24 U/L (17-59); Bilirubin,Total 0.2 mg/dL (0.2-1.3); Blood Urea Nitrogen 16 mg/dL (9-20); Calcium 7.2 mg/dL (8.4-10.2); Carbon Dioxide 33 mmol/L (22-30); Chloride 103 mmol/L (98-107); Estimated CRCL calculation 76 ml/min; Estimated Glomerular Filt Rate > 60; Glucose 128 mg/dL (65-110); Phosphorus 3.6 mg/dL (2.5-4.5); Potassium 4.1 mmol/L (3.4-5.0); Sodium 134 mmol/L (137-145); Triglycerides 80 mg/dL (<150)
[2024-12-02] MEDS: CENTRAL LINE FLUSH 10 ML IV PUSH ×3 (05:46→20:23)
[2024-12-02 07:56] LABS: Glucose Point of Care 139 mg/dl (65-105)
--- NOTE | 2024-12-02 08:23 | P.PNIM_ITS ---
Progress Note: A&P Assessment and Plan (1) Colonic mass: Code(s): K63.89 - Other specified diseases of intestine Status: Acute Assessment and Plan: * Colonoscopy 11/30: Completely-obstructing circumferential, fungating, friable, infiltrative, malignant appearing mass observed in ascending colon, approx 3- 4cm. Multiple biopsies taken * GI, Gen Surg, Heme/Onc following * CEA = 7.8 * PICC Line to be established today, to start TPN for nutrition boost and to increase Albumin * Surgical resection through Gen Surg for colonic mass, tentatively scheduled for Tuesday 12/05 * TPN and Ensure for nutrition supplementation (2) Anemia: Qualifiers: Anemia type: iron deficiency Iron deficiency anemia type: unspecified iron deficiency Qualified Code(s): D50.9 - Iron deficiency anemia, unspecified Code(s): D64.9 - Anemia, unspecified Status: Acute Assessment and Plan: * 1 RBC 11/29 * Telemetry monitoring * Anemia workup, unable do iron panel due to transfusion * Colonoscopy and EGD yesterday, see above * Stable * Likely related to colonic mass (3) Acute UTI: Code(s): N39.0 - Urinary tract infection, site not specified Status: Acute Assessment and Plan: * Could be a factor in weakness * Culture showed Klebsiella growth with Rocephin susceptibility * Continue IV Rocephin (4) HTN (hypertension): Code(s): I10 - Essential (primary) hypertension Status: Acute Assessment and Plan: * Continue cozaar * stable (5) Afib: Code(s): I48.91 - Unspecified atrial fibrillation Status: Acute Assessment and Plan: * Continue sotalol * stable (6) Diabetes: Code(s): E11.9 - Type 2 diabetes mellitus without complications Status: Acute Assessment and Plan: * Hold metformin * Diabetic diet * A Accu-Cheks a.c. HS * SSI (7) Weakness: Code(s): R53.1 - Weakness Status: Acute Assessment and Plan: * PT and OT * Ensure t.i.d. * PICC line inserted on 12/01 * TPN for further supplementation (8) Edema: Code(s): R60.9 - Edema, unspecified Status: Acute Assessment and Plan: * Continue IV Lasix * Request outside records Subjective Date/time seen: 12/02/24 08:23 Interval history: 79-year-old male past history of history of CABG and pacemaker, atrial fibrillation, GERD, high cholesterol on Lasix presents the hospital with complaints of swelling of hands and feet and not being able to walk. 12/02/2024 Patient sitting comfortably at bedside at time of examination. At this time he denies any chest pain, shortness of breath, abdominal pain, or nausea/vomiting. Hgb stable at this time at 7.9. Will continue TPN and ensure supplementation. Tentatively planned for surgery on Thursday, but will depend on if he is able to increase his nutrition. Review of Systems Review of Systems: 12 systems were reviewed and are negativ e except for as per HPI. Exam Narrative: General: chronic illl appearing, appears older than stated age. HEENT: normocephalic, atraumatic. Mucous membranes moist. EOMI, PERRLA, bilateral sclera anicteric, no conjunctival injection. Neck supple without JVD, lymphadenopathy, or bruit. Respiratory: clear to ascultation bilaterally. No rales/rhonic/wheezes. Cardiovascular: Regular rate and rhythm, normal S1-S2 upon ascultation. No murmurs, rubs, or clicks. PMI is nondisplaced, capillary refill less than 3 second. Abdomen: Soft, round, no pulsatile masses, nondistended and nontender. No rebound, no guarding. No CVA tenderness, no hepatosplenomegaly. Bowel sounds present to all four quadrants. No high pitch or tinkling sounds, resonant to percussion. Extremities: No cyanosis, clubbing, or edema present. Pulses are palpable 2/2. Active ROM to all four extremities. Neuro: Alert and orientated x 4. PERRLA. Cranial nerves 2-12 intact without focal deficit. Skin: Warm, dry, and intact, without rash, erythema, or lesion. Psych: pleasant, cooperative, normal speech, normal affect, no hallucinations, no dysarthia Objective Data Vital Signs Vital Signs: Vital Signs - 24 hr 12/01/24 08:38 12/01/24 09:00 12/01/24 12:05 Temperature Pulse Rate 76 75 Respiratory Rate Blood Pressure Pulse Oximetry Oxygen Delivery Room Air 12/01/24 14:00 12/01/24 16:04 12/01/24 20:00 Temperature 97.6 F Pulse Rate 76 76 Respiratory Rate 18 Blood Pressure 118/68 Pulse Oximetry 99 Oxygen Delivery Room Air 12/01/24 20:00 12/01/24 21:31 12/01/24 22:00 Temperature 98 F Pulse Rate 77 76 76 Respiratory Rate 18 Blood Pressure 117/58 L Pulse Oximetry 96 Oxygen Delivery 12/02/24 00:00 12/02/24 05:23 Temperature 97.6 F Pulse Rate 76 75 Respiratory Rate 16 Blood Pressure 121/59 L Pulse Oximetry 99 Oxygen Delivery Intake/Output Intake/Output: Intake & Output 11/29/24 11/30/24 12/01/24 12/02/24 23:59 23:59 23:59 23:59 Intake Total 7563 910 4503 250 Output Total 1600 1 850 850 Balance -260 539 504 -600 Meds/Results Medications: Active Medications Generic Name Dose Route Start Last Admin Trade Name Freq PRN Reason Stop Dose Admin Acetaminophen 650 mg 11/28/24 20:05 Acetaminophen 325 Mg Tablet PO Q4H PRN Mild Pain (1-3) or Fever Atorvastatin Calcium 40 mg 11/29/24 21:00 12/01/24 21:32 Atorvastatin 40 Mg Tablet PO 40 mg HS BRE Administration Dextrose 12.5 gm 11/29/24 02:22 Dextrose 50% 25 Gm/50 Ml Syringe IV PUSH PRN PRN Hypoglycemia Protocol Ferrous Sulfate 325 mg 11/30/24 09:00 12/01/24 08:38 Ferrous Sulfate [address] BY MOUTH 325 mg DAILY BRE Administration Furosemide 40 mg 11/30/24 09:00 Furosemide 40 Mg Tablet PO DAILY BRE Gabapentin 300 mg 11/29/24 13:00 12/01/24 17:42 Gabapentin 300 Mg Capsule PO 300 mg TID BRE Administration Glucose 15 gm 11/29/24 02:22 Glucose Oral Gel 15 Gm Of Glucse In 37.5 Gm Tube PO PRN PRN Hypoglycemia Protocol Dextrose 1,000 mls @ 100 mls/hr 11/29/24 02:22 Dextrose 5% 1,000 Ml IVPB PRN PRN Hypoglycemia Protocol Dextrose 1,000 mls @ 50 mls/hr 12/01/24 08:14 Dextrose 10% IV CONT .Q20H PRN if PN is interrupted Multivitamins 1.25 ml/ 1,002.5 mls @ 40 mls/hr 12/01/24 12:00 12/01/24 12:12 Multivitamins 1.25 ml/ Amino IV CONT 40 mls/hr Acids/Electrolytes/Dextrose .Q24H BRE Administration Protocol Fat Emulsion Intravenous 250 mls @ 20.833 mls/hr 12/01/24 12:00 12/02/24 00:15 Lipids 20% IVPB Infused Q24H BRE Infusion Ceftriaxone Sodium 1 gm in 50 mls @ 100 mls/hr 12/01/24 14:00 12/01/24 16:00 Rocephin 1 Gm/Ns 50 Ml IVPB Infused Q24H BRE Infusion Insulin Aspart 1 - 2 units 11/29/24 21:00 12/02/24 04:40 Insulin Aspart (*Bkc) 100 Units/Ml SUB-Q Not Given HS BRE Protocol Insulin Aspart 2 - 5 units 11/29/24 08:00 12/01/24 17:02 Insulin Aspart (*Bkc) 100 Units/Ml SUB-Q Not Given TIDWM BRE Protocol Losartan Potassium 50 mg 11/29/24 21:00 12/01/24 21:32 Losartan Potassium 50 Mg Tablet PO 50 mg Q12H BRE Administration Melatonin 5 mg 11/29/24 21:00 12/01/24 21:32 Melatonin 5 Mg Tablet PO 5 mg HS BRE Administration Ondansetron HCl 4 mg 11/28/24 20:05 Ondansetron Inj 4 Mg/2 Ml Vial IV PUSH Q4H PRN Nausea Pantoprazole Sodium 40 mg 11/30/24 09:00 12/01/24 08:38 Pantoprazole 40 Mg Tablet PO 40 mg QAM BRE Administration Sodium Chloride 10 ml 12/01/24 14:00 12/02/24 05:46 Central Line Flush IV PUSH 10 ml Q8HR BRE Administration Sodium Chloride 10 ml 12/01/24 09:42 Central Line Flush IV PUSH PRN PRN with TPN bag changes Sodium Chloride 20 ml 12/01/24 09:42 Central Line Flush IV PUSH PRN PRN after blood draws Sotalol HCl 120 mg 11/29/24 12:00 12/01/24 21:31 Sotalol Hcl 40 Mg Tablet PO 120 mg Q12HR BRE Administration Radiology Results: ITS Impressions Chest/Abdomen/Pelvis CT 11/30/24 13:27 IMPRESSION: 1. Prominent wall thickening along the distal transverse colon concerning for colon cancer. No lesion suspicious for metastatic disease. 2. Small right and [id number] left pleural effusions with associated atelectasis in the bilateral lower lobes, left greater than right. 3. Cardiomegaly enlargement of the central pulmonary arteries consistent with pulmonary arterial hypertension. 4. Moderate-sized bilateral fat-containing inguinal hernias. 5. Minimal nonspecific ascites in the deep pelvis. Chest X-Ray 12/01/24 09:42 Impression: Right-sided PICC line in satisfactory position. Small left pleural effusion with probable left basilar pulmonary edema/atelectasis. Correlate clinically for pneumonia. Labs Labs: Laboratory Results - last 24 hr 12/01/24 12/01/24 12/01/24 05:20 11:47 16:43 WBC RBC Hgb Hct MCV MCH MCHC RDW Plt Count MPV Immature Gran % (Auto) Neut % (Auto) Lymph % (Auto) [place] % (Auto) Eos % (Auto) Baso % (Auto) Lymph # (Auto) [place] # (Auto) Eos # (Auto) Baso # (Auto) Abs Immat Gran (auto) Absolute Neuts (auto) Absolute Nucleated RBC Nucleated RBC % Sodium Potassium Chloride Carbon Dioxide Anion Gap BUN Creatinine Estim Creat Clear Calc Estimated GFR Glucose POC Capillary Glucose 97 139 H Calcium Phosphorus Magnesium 2.5 H Transferrin 115 L Total Bilirubin AST ALT Alkaline Phosphatase Total Protein Albumin Triglycerides 12/02/24 12/02/24 12/02/24 00:23 05:27 07:45 WBC 5.1 RBC 2.94 L Hgb 7.9 L Hct 26.9 L MCV 91.5 MCH 26.9 MCHC 29.4 L RDW 16.3 H Plt Count 234 MPV 8.7 Immature Gran % (Auto) 0.4 Neut % (Auto) 67.8 Lymph % (Auto) 19.3 [place] % (Auto) 9.0 H Eos % (Auto) 3.1 Baso % (Auto) 0.4 Lymph # (Auto) 0.98 [place] # (Auto) 0.5 Eos # (Auto) 0.2 Baso # (Auto) 0.0 Abs Immat Gran (auto) 0.02 Absolute Neuts (auto) 3.5 Absolute Nucleated RBC 0.000 Nucleated RBC % 0.0 Sodium 134 L Potassium 4.1 Chloride 103 Carbon Dioxide 33 H Anion Gap -2 L BUN 16 Creatinine 0.73 Estim Creat Clear Calc 76 Estimated GFR > 60 Glucose 128 H POC Capillary Glucose 168 H 139 H Calcium 7.2 L Phosphorus 3.6 Magnesium Transferrin Total Bilirubin 0.2 AST 24 ALT 16 Alkaline Phosphatase 79 Total Protein 5.0 L Albumin 1.9 L Triglycerides 80 Quality VTE Prophylaxis VTE prophylaxis: mechanical ordered
[2024-12-02] MEDS: PANTOPRAZOLE 40 MG TABLET PO (09:09)
[2024-12-02] MEDS: FERROUS SULFATE 325 MG TABLET DR BY MOUTH (09:09)
[2024-12-02] MEDS: LOSARTAN POTASSIUM 50 MG TABLET PO ×2 (09:09→20:23)
[2024-12-02] MEDS: GABAPENTIN 300 MG CAPSULE PO ×3 (09:09→17:13)
[2024-12-02] MEDS: SOTALOL HCL 40 MG TABLET 120 MG PO ×2 (09:10→20:23)
[2024-12-02] MEDS: FUROSEMIDE 40 MG TABLET PO (09:12)
--- NOTE | 2024-12-02 10:07 | PCNFU ---
Nutrition Follow-Up Complete: Unintended weight loss as related to weakness as evidenced 10% (20 ibs) in 2 months. Goal:Adequate intake of at least 75% of meals/supplements Pt meeting goal via liquid diet, supplements and TPN Pt current nutrition is Clear liquids, Ensure Enlive TID. TPN:Clinimx E 12/22 @ 40ml/hr = 1182kcals, 48g. Nutrition recommendation: continue with current plan of care Last recorded weight is 79.1 kg. Bowel Motility: +BM 12/01 Labs Reviewed: Hgb:7.9, HCT:26.9, Alb:1.9, NA:134, Glu:128, M.5 Meds Noted: protonix, novolog, lasix Skin: WNL Additional Notes: Pt continues on a clear liquid diet, Ensure shakes TID - prefers chocolate, TPN running for supplemental nutrition. Pt tolerating well. Agree with orders. Continue with current plan of care. Will monitor weight, labs, skin, diet orders, Follow up every Thursday and Thursday.
--- NOTE | 2024-12-02 11:59 | WPDPN ---
Progress Note: A&P Assessment and Plan (1) Protein calorie malnutrition: Code(s): E46 - Unspecified protein-calorie malnutrition Status: Acute Assessment and Plan: Patient is albumin is 1.9 today. Yesterday was 2.0. Continue oral supplements with Ensure and IV nutrition with TPN. Tentatively scheduled for surgery on Thursday depending on how response to supplemental nutrition. With his moderate to severe level of malnutrition I would delay surgery until nutritional status is improved so that we can avoid issues such as wound healing and healing of his anastomosis after his right hemicolectomy. We will continue TPN and supplements orally over the weekend. Re-evaluate Thursday and if appropriate proceed with surgery or delay surgery longer. (2) Colonic mass: Code(s): K63.89 - Other specified diseases of intestine Status: Acute Assessment and Plan: Patient has a large near obstructive malignant appearing mass in the right ascending colon. He does not have a bowel obstruction at this time but obstruction is impending. Have discussed with him and he agreed to proceed with a robotic assisted laparoscopic right hemicolectomy. We have agreed to start antral and oral supplements for nutrition and see how he improves. We will plan on proceeding with the surgery once his nutrition improves. Subjective Date/time seen: 12/02/24 11:59 Interval history: Patient sees is doing well. No acute changes clinically. No bowel movements but not have any abdominal pain. Tolerating clear liquids and Ensure supplements. TPN started yesterday. No problems getting the TPN. Exam GI: Other: Abdomen is soft and nondistended. No palpable masses. Exam is benign. Objective Data Vital Signs Vital Signs: Vital Signs - 24 hr 12/01/24 12:05 12/01/24 14:00 12/01/24 16:04 Temperature 36.4 C Pulse Rate 75 76 76 Respiratory Rate 18 Blood Pressure 118/68 Pulse Oximetry 99 Oxygen Delivery 12/01/24 20:00 12/01/24 20:00 12/01/24 21:31 Temperature Pulse Rate 77 76 Respiratory Rate Blood Pressure Pulse Oximetry Oxygen Delivery Room Air 12/01/24 22:00 12/02/24 00:00 12/02/24 05:23 Temperature 36.6 C 36.4 C Pulse Rate 76 76 75 Respiratory Rate 18 16 Blood Pressure 117/58 L 121/59 L Pulse Oximetry 96 99 Oxygen Delivery 12/02/24 08:00 12/02/24 09:10 Temperature Pulse Rate 76 Respiratory Rate Blood Pressure Pulse Oximetry Oxygen Delivery Room Air Intake/Output Intake/Output: Intake & Output 11/29/24 11/30/24 12/01/24 12/02/24 23:59 23:59 23:59 23:59 Intake Total 5679 804 6703 784 Output Total 1600 1 850 850 Balance -260 539 504 -66 Meds/Results Medications: Active Medications Generic Name Dose Route Start Last Admin Trade Name Freq PRN Reason Stop Dose Admin Acetaminophen 650 mg 11/28/24 20:05 Acetaminophen 325 Mg Tablet PO Q4H PRN Mild Pain (1-3) or Fever Atorvastatin Calcium 40 mg 11/29/24 21:00 12/01/24 21:32 Atorvastatin 40 Mg Tablet PO 40 mg HS BRE Administration Dextrose 12.5 gm 11/29/24 02:22 Dextrose 50% 25 Gm/50 Ml Syringe IV PUSH PRN PRN Hypoglycemia Protocol Ferrous Sulfate 325 mg 11/30/24 09:00 12/02/24 09:09 Ferrous Sulfate [address] BY MOUTH 325 mg DAILY BRE Administration Furosemide 40 mg 11/30/24 09:00 12/02/24 09:12 Furosemide 40 Mg Tablet PO 40 mg DAILY BRE Administration Gabapentin 300 mg 11/29/24 13:00 12/02/24 09:09 Gabapentin 300 Mg Capsule PO 300 mg TID BRE Administration Glucose 15 gm 11/29/24 02:22 Glucose Oral Gel 15 Gm Of Glucse In 37.5 Gm Tube PO PRN PRN Hypoglycemia Protocol Dextrose 1,000 mls @ 100 mls/hr 11/29/24 02:22 Dextrose 5% 1,000 Ml IVPB PRN PRN Hypoglycemia Protocol Dextrose 1,000 mls @ 50 mls/hr 12/01/24 08:14 Dextrose 10% IV CONT .Q20H PRN if PN is interrupted Multivitamins 1.25 ml/ 1,002.5 mls @ 40 mls/hr 12/01/24 12:00 12/01/24 12:12 Multivitamins 1.25 ml/ Amino IV CONT 40 mls/hr Acids/Electrolytes/Dextrose .Q24H BRE Administration Protocol Fat Emulsion Intravenous 250 mls @ 20.833 mls/hr 12/01/24 12:00 12/02/24 00:15 Lipids 20% IVPB Infused Q24H RBE Infusion Ceftriaxone Sodium 1 gm in 50 mls @ 100 mls/hr 12/01/24 14:00 12/01/24 16:00 Rocephin 1 Gm/Ns 50 Ml IVPB 12/04/24 23:59 Infused Q24H BRE Infusion Insulin Aspart 1 - 2 units 11/29/24 21:00 12/02/24 04:40 Insulin Aspart (*Bkc) 100 Units/Ml SUB-Q Not Given HS BRE Protocol Insulin Aspart 2 - 5 units 11/29/24 08:00 12/02/24 09:07 Insulin Aspart (*Bkc) 100 Units/Ml SUB-Q Not Given TIDWM [facility] Protocol Losartan Potassium 50 mg 11/29/24 21:00 12/02/24 09:09 Losartan Potassium 50 Mg Tablet PO 50 mg Q12H BRE Administration Melatonin 5 mg 11/29/24 21:00 12/01/24 21:32 Melatonin 5 Mg Tablet PO 5 mg HS BRE Administration Ondansetron HCl 4 mg 11/28/24 20:05 Ondansetron Inj 4 Mg/2 Ml Vial IV PUSH Q4H PRN Nausea Pantoprazole Sodium 40 mg 11/30/24 09:00 12/02/24 09:09 Pantoprazole 40 Mg Tablet PO 40 mg QAM BRE Administration Sodium Chloride 10 ml 12/01/24 14:00 12/02/24 05:46 Central Line Flush IV PUSH 10 ml Q8HR BRE Administration Sodium Chloride 10 ml 12/01/24 09:42 Central Line Flush IV PUSH PRN PRN with TPN bag changes Sodium Chloride 20 ml 12/01/24 09:42 Central Line Flush IV PUSH PRN PRN after blood draws Sotalol HCl 120 mg 11/29/24 12:00 12/02/24 09:10 Sotalol Hcl 40 Mg Tablet PO 120 mg Q12HR BRE Administration Radiology Results: ITS Impressions Chest/Abdomen/Pelvis CT 11/30/24 13:27 IMPRESSION: 1. Prominent wall thickening along the distal transverse colon concerning for colon cancer. No lesion suspicious for metastatic disease. 2. Small right and [id number] left pleural effusions with associated atelectasis in the bilateral lower lobes, left greater than right. 3. Cardiomegaly enlargement of the central pulmonary arteries consistent with pulmonary arterial hypertension. 4. Moderate-sized bilateral fat-containing inguinal hernias. 5. Minimal nonspecific ascites in the deep pelvis. Chest X-Ray 12/01/24 09:42 Impression: Right-sided PICC line in satisfactory position. Small left pleural effusion with probable left basilar pulmonary edema/atelectasis. Correlate clinically for pneumonia. Labs Labs: Laboratory Results - last 24 hr 12/01/24 12/02/24 12/02/24 16:43 00:23 05:27 WBC 5.1 RBC 2.94 L Hgb 7.9 L Hct 26.9 L MCV 91.5 MCH 26.9 MCHC 29.4 L RDW 16.3 H Plt Count 234 MPV 8.7 Immature Gran % (Auto) 0.4 Neut % (Auto) 67.8 Lymph % (Auto) 19.3 [place] % (Auto) 9.0 H Eos % (Auto) 3.1 Baso % (Auto) 0.4 Lymph # (Auto) 0.98 [place] # (Auto) 0.5 Eos # (Auto) 0.2 Baso # (Auto) 0.0 Abs Immat Gran (auto) 0.02 Absolute Neuts (auto) 3.5 Absolute Nucleated RBC 0.000 Nucleated RBC % 0.0 Sodium 134 L Potassium 4.1 Chloride 103 Carbon Dioxide 33 H Anion Gap -2 L BUN 16 Creatinine 0.73 Estim Creat Clear Calc 76 Estimated GFR > 60 Glucose 128 H POC Capillary Glucose 139 H 168 H Calcium 7.2 L Phosphorus 3.6 Total Bilirubin 0.2 AST 24 ALT 16 Alkaline Phosphatase 79 Total Protein 5.0 L Albumin 1.9 L Triglycerides 80 12/02/24 07:45 WBC RBC Hgb Hct MCV MCH MCHC RDW Plt Count MPV Immature Gran % (Auto) Neut % (Auto) Lymph % (Auto) [place] % (Auto) Eos % (Auto) Baso % (Auto) Lymph # (Auto) [place] # (Auto) Eos # (Auto) Baso # (Auto) Abs Immat Gran (auto) Absolute Neuts (auto) Absolute Nucleated RBC Nucleated RBC % Sodium Potassium Chloride Carbon Dioxide Anion Gap BUN Creatinine Estim Creat Clear Calc Estimated GFR Glucose POC Capillary Glucose 139 H Calcium Phosphorus Total Bilirubin AST ALT Alkaline Phosphatase Total Protein Albumin Triglycerides
[2024-12-02 12:02] LABS: Glucose Point of Care 132 mg/dl (65-105)
[2024-12-02] MEDS: FAT EMULSIONS IV 20% 250 ML 20.83 ML IVPB (12:41)
[2024-12-02] MEDS: AMINO ACIDS 5%/D15W/E-LYTES/CA 1,000 ML with MULTIVITAMINS-12 INJ VIAL 1 1.25 ML, MULTI... 40 ML IV CONT (12:41)
[2024-12-02 16:49] LABS: Glucose Point of Care 131 mg/dl (65-105)
[2024-12-02] MEDS: CALCIUM GLUC 1,000 MG/NS 50 ML 1,000 MG/50 ML BAG 100 MG IVPB (17:13)
[2024-12-02] MEDS: ALBUMIN HUMAN 25% 25 GM/100 ML 100 ML IVPB (17:14)
--- NOTE | 2024-12-02 18:16 | P.PNONC_ITS ---
Progress Note: A&P Assessment and Plan (1) Colonic mass: Code(s): K63.89 - Other specified diseases of intestine Status: Acute Assessment and Plan: Patient admitted for anemia with iron deficiency noted in labs done at admission. Patient underwent colonoscopy on 11/30/2024 and was found to have a completely obstructive fungating mass in the ascending colon measuring 3-4 cm. Biopsies pending, but as you colon cancer. CT scan of the chest, abdomen, and pelvis performed 4 to Lizbeth showed thickening along the distal transverse colon concerning for cancer. There was no metastatic disease. There were small right and moderate left pleural effusion with cardiomegaly. At this time issue seems to be localized colon cancer and with pending obstruction he will need a surgical intervention sooner than later. I explained this to the patient and his at bedside General surgery has seen patient today and recommended TPN to raise the nutrition level. Patient is also taking Ensure 3 times a day. Plan is for surgery on Thursday12/05/2024. Subjective Date/time seen: 12/02/24 18:16 Interval history: Patient is resting comfortably no overnight events. Review of Systems Review of Systems He denies any chest pain, shortness of breath, cough, hemoptysis. He denies any abdominal pain. Patient reports that he has been passing bowels okay without any pain although he reports some diarrhea. He denies any hematochezia or melena. Patient states that he has increased his Ensure intake to 3 times a day while hospitalized. Rest of the 12 point review of system is negative Exam Narrative: General: chronic illl appearing, elderly male in no acute distress HEENT: normocephalic, atraumatic. Mucous membranes moist. EOMI, PERRLA, bilateral sclera anicteric, no conjunctival injection. Neck supple without JVD, lymphadenopathy, or bruit. Respiratory: clear to ascultation bilaterally. No rales/rhonic/wheezes. Cardiovascular: Regular rate and rhythm, no m/g/r Abdomen: Soft, round, no pulsatile masses, nondistended and nontender. No rebound, no guarding. No CVA tenderness, no hepatosplenomegaly. Bowel sounds present to all four quadrants. Extremities: Patient has 2+ edema in bilateral lower extremity Neuro: Alert and orientated x 4. PERRLA. Cranial nerves 2-12 intact without focal deficit. Skin: Warm, dry, and intact, without rash, erythema, or lesion. Psych: pleasant, cooperative, normal speech, normal affect, no hallucinations, no dysarthia Objective Data Vital Signs Vital Signs: Vital Signs - 24 hr 12/01/24 20:00 12/01/24 20:00 12/01/24 21:31 Temperature Pulse Rate 77 76 Respiratory Rate Blood Pressure Pulse Oximetry Oxygen Delivery Room Air 12/01/24 22:00 12/02/24 00:00 12/02/24 05:23 Temperature 36.6 C 36.4 C Pulse Rate 76 76 75 Respiratory Rate 18 16 Blood Pressure 117/58 L 121/59 L Pulse Oximetry 96 99 Oxygen Delivery 12/02/24 08:00 12/02/24 08:00 12/02/24 09:10 Temperature Pulse Rate 93 76 Respiratory Rate Blood Pressure Pulse Oximetry Oxygen Delivery Room Air 12/02/24 12:00 12/02/24 14:00 12/02/24 16:00 Temperature 36.3 C L Pulse Rate 76 88 76 Respiratory Rate 18 Blood Pressure 128/62 Pulse Oximetry 98 Oxygen Delivery Intake/Output Intake/Output: Intake & Output 11/29/24 11/30/24 12/01/24 12/02/24 23:59 23:59 23:59 23:59 Intake Total 5581 626 7854 2650.3 Output Total 1600 1 850 2350 Balance -260 539 504 300.3 Meds/Results Medications: Active Medications Generic Name Dose Route Start Last Admin Trade Name Freq PRN Reason Stop Dose Admin Acetaminophen 650 mg 11/28/24 20:05 Acetaminophen 325 Mg Tablet PO Q4H PRN Mild Pain (1-3) or Fever Atorvastatin Calcium 40 mg 11/29/24 21:00 12/01/24 21:32 Atorvastatin 40 Mg Tablet PO 40 mg HS BRE Administration Dextrose 12.5 gm 11/29/24 02:22 Dextrose 50% 25 Gm/50 Ml Syringe IV PUSH PRN PRN Hypoglycemia Protocol Ferrous Sulfate 325 mg 11/30/24 09:00 12/02/24 09:09 Ferrous Sulfate [address] BY MOUTH 325 mg DAILY BRE Administration Furosemide 40 mg 11/30/24 09:00 12/02/24 09:12 Furosemide 40 Mg Tablet PO 40 mg DAILY BRE Administration Gabapentin 300 mg 11/29/24 13:00 12/02/24 17:13 Gabapentin 300 Mg Capsule PO 300 mg TID BRE Administration Glucose 15 gm 11/29/24 02:22 Glucose Oral Gel 15 Gm Of Glucse In 37.5 Gm Tube PO PRN PRN Hypoglycemia Protocol Dextrose 1,000 mls @ 100 mls/hr 11/29/24 02:22 Dextrose 5% 1,000 Ml IVPB PRN PRN Hypoglycemia Protocol Dextrose 1,000 mls @ 50 mls/hr 12/01/24 08:14 Dextrose 10% IV CONT .Q20H PRN if PN is interrupted Multivitamins 1.25 ml/ 1,002.5 mls @ 40 mls/hr 12/01/24 12:00 12/02/24 12:41 Multivitamins 1.25 ml/ Amino IV CONT 40 mls/hr Acids/Electrolytes/Dextrose .Q24H BRE Administration Protocol Fat Emulsion Intravenous 250 mls @ 20.833 mls/hr 12/01/24 12:00 12/02/24 12:41 Lipids 20% IVPB 20.83 mls/hr Q24H BRE Administration Ceftriaxone Sodium 1 gm in 50 mls @ 100 mls/hr 12/01/24 14:00 12/02/24 13:00 Rocephin 1 Gm/Ns 50 Ml IVPB 12/04/24 23:59 100 mls/hr Q24H BRE Administration Albumin Human 100 mls @ 60 mls/hr 12/02/24 18:00 12/02/24 17:14 Albutein IVPB 12/03/24 13:39 60 mls/hr Q6HR BRE Administration Insulin Aspart 1 - 2 units 11/29/24 21:00 12/02/24 04:40 Insulin Aspart (*Bkc) 100 Units/Ml SUB-Q Not Given HS BRE Protocol Insulin Aspart 2 - 5 units 11/29/24 08:00 12/02/24 17:13 Insulin Aspart (*Bkc) 100 Units/Ml SUB-Q Not Given TIDWM BRE Protocol Losartan Potassium 50 mg 11/29/24 21:00 12/02/24 09:09 Losartan Potassium 50 Mg Tablet PO 50 mg Q12H BRE Administration Melatonin 5 mg 11/29/24 21:00 12/01/24 21:32 Melatonin 5 Mg Tablet PO 5 mg HS BRE Administration Ondansetron HCl 4 mg 11/28/24 20:05 Ondansetron Inj 4 Mg/2 Ml Vial IV PUSH Q4H PRN Nausea Pantoprazole Sodium 40 mg 11/30/24 09:00 12/02/24 09:09 Pantoprazole 40 Mg Tablet PO 40 mg QAM BRE Administration Sodium Chloride 10 ml 12/01/24 14:00 12/02/24 12:54 Central Line Flush IV PUSH 10 ml Q8HR BRE Administration Sodium Chloride 10 ml 12/01/24 09:42 Central Line Flush IV PUSH PRN PRN with TPN bag changes Sodium Chloride 20 ml 12/01/24 09:42 Central Line Flush IV PUSH PRN PRN after blood draws Sotalol HCl 120 mg 11/29/24 12:00 12/02/24 09:10 Sotalol Hcl 40 Mg Tablet PO 120 mg Q12HR BRE Administration Radiology Results: ITS Impressions Chest/Abdomen/Pelvis CT 11/30/24 13:27 IMPRESSION: 1. Prominent wall thickening along the distal transverse colon concerning for colon cancer. No lesion suspicious for metastatic disease. 2. Small right and [id number] left pleural effusions with associated atelectasis in the bilateral lower lobes, left greater than right. 3. Cardiomegaly enlargement of the central pulmonary arteries consistent with pulmonary arterial hypertension. 4. Moderate-sized bilateral fat-containing inguinal hernias. 5. Minimal nonspecific ascites in the deep pelvis. Chest X-Ray 12/01/24 09:42 Impression: Right-sided PICC line in satisfactory position. Small left pleural effusion with probable left basilar pulmonary edema/atelectasis. Correlate clinically for pneumonia. Labs Labs: Laboratory Results - last 24 hr 12/02/24 12/02/24 12/02/24 00:23 05:27 07:45 WBC 5.1 RBC 2.94 L Hgb 7.9 L Hct 26.9 L MCV 91.5 MCH 26.9 MCHC 29.4 L RDW 16.3 H Plt Count 234 MPV 8.7 Immature Gran % (Auto) 0.4 Neut % (Auto) 67.8 Lymph % (Auto) 19.3 [place] % (Auto) 9.0 H Eos % (Auto) 3.1 Baso % (Auto) 0.4 Lymph # (Auto) 0.98 [place] # (Auto) 0.5 Eos # (Auto) 0.2 Baso # (Auto) 0.0 Abs Immat Gran (auto) 0.02 Absolute Neuts (auto) 3.5 Absolute Nucleated RBC 0.000 Nucleated RBC % 0.0 Sodium 134 L Potassium 4.1 Chloride 103 Carbon Dioxide 33 H Anion Gap -2 L BUN 16 Creatinine 0.73 Estim Creat Clear Calc 76 Estimated GFR > 60 Glucose 128 H POC Capillary Glucose 168 H 139 H Calcium 7.2 L Phosphorus 3.6 Total Bilirubin 0.2 AST 24 ALT 16 Alkaline Phosphatase 79 Total Protein 5.0 L Albumin 1.9 L Triglycerides 80 12/02/24 12/02/24 11:51 16:39 WBC RBC Hgb Hct MCV MCH MCHC RDW Plt Count MPV Immature Gran % (Auto) Neut % (Auto) Lymph % (Auto) [place] % (Auto) Eos % (Auto) Baso % (Auto) Lymph # (Auto) [place] # (Auto) Eos # (Auto) Baso # (Auto) Abs Immat Gran (auto) Absolute Neuts (auto) Absolute Nucleated RBC Nucleated RBC % Sodium Potassium Chloride Carbon Dioxide Anion Gap BUN Creatinine Estim Creat Clear Calc Estimated GFR Glucose POC Capillary Glucose 132 H 131 H Calcium Phosphorus Total Bilirubin AST ALT Alkaline Phosphatase Total Protein Albumin Triglycerides
[2024-12-02] MEDS: ATORVASTATIN 40 MG TABLET PO (20:23)
[2024-12-02] MEDS: MELATONIN 5 MG TABLET PO (20:23)
[2024-12-02 21:20] LABS: Glucose Point of Care 255 mg/dl (65-105)
[2024-12-02] MEDS: INSULIN ASPART (*BKC) 100 UNITS/ML SUB-Q (21:43)
[2024-12-03] VITALS (22 sets, daily range): BP systolic 101–140; BP diastolic 52–72; PULSE 59–80; RESP 16–20; TEMP 36.4–36.9; O2SAT 92–99
[2024-12-03] MEDS: ALBUMIN HUMAN 25% 25 GM/100 ML 100 ML IVPB ×3 (00:03→12:32)
[2024-12-03] MEDS: ACETAMINOPHEN 325 MG TABLET 650 MG PO (03:38)
[2024-12-03 04:51] LABS: Basophils Percent Auto 0.4 % (0.2-1.2); Eosinophils Absolute Auto 0.1 K/mm3 (0-0.3); Eosinophils Percent Auto 2.6 % (0-4.4); Hematocrit 22.2 % (42.0-52.0); Immature Granulocyte Absolute 0.02 K/mm3 (0.00-0.031); Immature Granulocyte Percent A 0.4 % (0-0.5); Lymphocytes Absolute Auto 0.91 K/mm3 (0.9-3.2); Mean Corpuscular HGB Conc 28.8 g/dl (32-36); Mean Corpuscular Hemoglobin 26.6 pg (26-34); Mean Corpuscular Volume 92.1 fl (80-100); Mean Platelet Volume 9.1 fl (7.4-10.4); Monocytes Absolute Auto 0.5 K/mm3 (0.1-0.6); Monocytes Percent Auto 9.6 % (2.6-8.5); Neutrophils Absolute Auto 3.7 K/mm3 (1.3-6.7); Platelet Count Result 179 k/mm3 (150-375); Red Blood Count 2.41 M/mm3 (4.6-6.20); White Blood Count 5.3 K/mm3 (4.5-10.0)
[2024-12-03 05:04] LABS: Alanine Aminotransferase 15 U/L (6-50); Albumin Level 2.1 g/dL (3.5-5.1); Alkaline Phosphatase 57 U/L (38-126); Anion Gap 1 mmol/L (4-12); Aspartate Amino Transferase 24 U/L (17-59); Bilirubin,Total 0.3 mg/dL (0.2-1.3); Blood Urea Nitrogen 16 mg/dL (9-20); Calcium 7.1 mg/dL (8.4-10.2); Carbon Dioxide 30 mmol/L (22-30); Chloride 102 mmol/L (98-107); Estimated CRCL calculation 92 ml/min; Estimated Glomerular Filt Rate > 60; Glucose 115 mg/dL (65-110); Hemoglobin 6.4 g/dL (14.0-18.0); Phosphorus 3.2 mg/dL (2.5-4.5); Sodium 133 mmol/L (137-145)
[2024-12-03 05:10] LABS: Band Neutrophils Percent 0 % (0-6); Hypochromasia 1+; Platelet Estimate Slightly Increased (Adequate)
[2024-12-03 05:11] LABS: Anisocytosis 1+; Ovalocytes 1+; Schistocytes None Seen
[2024-12-03] MEDS: CENTRAL LINE FLUSH 10 ML IV PUSH ×3 (05:56→21:22)
[2024-12-03 08:03] LABS: Glucose Point of Care 111 mg/dl (65-105)
[2024-12-03] MEDS: SODIUM CHLORIDE 0.9% IV 250 ML 30 ML IV CONT ×2 (08:12→12:32)
[2024-12-03] MEDS: FUROSEMIDE 40 MG TABLET PO (08:13)
[2024-12-03] MEDS: GABAPENTIN 300 MG CAPSULE PO ×3 (08:13→17:08)
[2024-12-03] MEDS: FERROUS SULFATE 325 MG TABLET DR BY MOUTH (08:13)
[2024-12-03] MEDS: PANTOPRAZOLE 40 MG TABLET PO (08:13)
--- NOTE | 2024-12-03 08:24 | P.PNIM_ITS ---
Progress Note: A&P Assessment and Plan (1) Colonic mass: Code(s): K63.89 - Other specified diseases of intestine Status: Acute Assessment and Plan: * Colonoscopy 11/30: Completely-obstructing circumferential, fungating, friable, infiltrative, malignant appearing mass observed in ascending colon, approx 3- 4cm. Multiple biopsies taken * GI, Gen Surg, Heme/Onc following * CEA = 7.8 * PICC Line to be established today, to start TPN for nutrition boost and to increase Albumin * Surgical resection through Gen Surg for colonic mass, tentatively scheduled for Tuesday 12/05 * TPN and Ensure for nutrition supplementation (2) Anemia: Qualifiers: Anemia type: iron deficiency Iron deficiency anemia type: unspecified iron deficiency Qualified Code(s): D50.9 - Iron deficiency anemia, unspecified Code(s): D64.9 - Anemia, unspecified Status: Acute Assessment and Plan: * 1 RBC 11/29 * Telemetry monitoring * Anemia workup, unable do iron panel due to transfusion * Colonoscopy and EGD yesterday, see above * Stable * Likely related to colonic mass * Hg 6.4 12/03: will transfuse 1 additional PRBC units (3) Acute UTI: Code(s): N39.0 - Urinary tract infection, site not specified Status: Acute Assessment and Plan: * Could be a factor in weakness * Culture showed Klebsiella growth with Rocephin susceptibility * Continue IV Rocephin (4) HTN (hypertension): Code(s): I10 - Essential (primary) hypertension Status: Acute Assessment and Plan: * Continue cozaar * stable (5) Afib: Code(s): I48.91 - Unspecified atrial fibrillation Status: Acute Assessment and Plan: * Continue sotalol * stable (6) Diabetes: Code(s): E11.9 - Type 2 diabetes mellitus without complications Status: Acute Assessment and Plan: * Hold metformin * Diabetic diet * A Accu-Cheks a.c. HS * SSI (7) Weakness: Code(s): R53.1 - Weakness Status: Acute Assessment and Plan: * PT and OT * Ensure t.i.d. * PICC line inserted on 12/01 * TPN for further supplementation (8) Edema: Code(s): R60.9 - Edema, unspecified Status: Acute Assessment and Plan: * Continue IV Lasix * Request outside records Time Spent With Patient Time: Subjective Date/time seen: 12/03/24 08:24 Interval history: 79-year-old male past history of history of CABG and pacemaker, atrial fibrillation, GERD, high cholesterol on Lasix presents the hospital with complaints of swelling of hands and feet and not being able to walk. 12/03/2024 Patient sitting comfortably in bed at time examination. Denies any chest pain, shortness a breath, nausea/vomiting, abdominal pain, or urinary/bowel complaints at this time. Hemoglobin he was found to be 6.4 requiring 1 unit PRBC, however patient denies any weakness or dizziness. He continues to eat well and remains in high spirits. Still tentatively plan for surgery Thursday but will have to continue monitoring nutrition with TPN and ensure supplements. Review of Systems Review of Systems: 12 systems were reviewed and are negativ e except for as per HPI. Exam Narrative: General: chronic illl appearing, appears older than stated age. HEENT: normocephalic, atraumatic. Mucous membranes moist. EOMI, PERRLA, bilateral sclera anicteric, no conjunctival injection. Neck supple without JVD, lymphadenopathy, or bruit. Respiratory: clear to ascultation bilaterally. No rales/rhonic/wheezes. Cardiovascular: Regular rate and rhythm, normal S1-S2 upon ascultation. No murmurs, rubs, or clicks. PMI is nondisplaced, capillary refill less than 3 second. Abdomen: Soft, round, no pulsatile masses, nondistended and nontender. No rebound, no guarding. No CVA tenderness, no hepatosplenomegaly. Bowel sounds present to all four quadrants. No high pitch or tinkling sounds, resonant to percussion. Extremities: No cyanosis, clubbing, or edema present. Pulses are palpable 2/2. Active ROM to all four extremities. Neuro: Alert and orientated x 4. PERRLA. Cranial nerves 2-12 intact without focal deficit. Skin: Warm, dry, and intact, without rash, erythema, or lesion. Psych: pleasant, cooperative, normal speech, normal affect, no hallucinations, no dysarthia Objective Data Vital Signs Vital Signs: Vital Signs - 24 hr 12/02/24 09:10 12/02/24 12:00 12/02/24 14:00 Temperature 97.3 F L Pulse Rate 76 76 88 Respiratory Rate 18 Blood Pressure 128/62 Pulse Oximetry 98 Oxygen Delivery 12/02/24 16:00 12/02/24 20:00 12/02/24 20:23 Temperature Pulse Rate 76 80 80 Respiratory Rate Blood Pressure Pulse Oximetry Oxygen Delivery 12/02/24 20:30 12/02/24 20:36 12/03/24 00:00 Temperature 98.2 F Pulse Rate 82 76 Respiratory Rate 16 Blood Pressure 141/60 H Pulse Oximetry 96 Oxygen Delivery Room Air 12/03/24 04:07 12/03/24 05:26 12/03/24 08:06 Temperature 98.2 F 97.5 F L Pulse Rate 77 77 75 Respiratory Rate 16 16 Blood Pressure 107/57 L 108/63 Pulse Oximetry 95 96 Oxygen Delivery Intake/Output Intake/Output: Intake & Output 11/30/24 12/01/24 12/02/24 12/03/24 23:59 23:59 23:59 23:59 Intake Total 540 1354 2987.3 1037 Output Total 1 850 2350 1350 Balance 539 504 637.3 -313 Meds/Results Medications: Active Medications Generic Name Dose Route Start Last Admin Trade Name Freq PRN Reason Stop Dose Admin Acetaminophen 650 mg 11/28/24 20:05 12/03/24 03:38 Acetaminophen 325 Mg Tablet PO 650 mg Q4H PRN Administration Mild Pain (1-3) or Fever Atorvastatin Calcium 40 mg 11/29/24 21:00 12/02/24 20:23 Atorvastatin 40 Mg Tablet PO 40 mg HS BRE Administration Dextrose 12.5 gm 11/29/24 02:22 Dextrose 50% 25 Gm/50 Ml Syringe IV PUSH PRN PRN Hypoglycemia Protocol Ferrous Sulfate 325 mg 11/30/24 09:00 12/03/24 08:13 Ferrous Sulfate [address] BY MOUTH 325 mg DAILY BRE Administration Furosemide 40 mg 11/30/24 09:00 12/03/24 08:13 Furosemide 40 Mg Tablet PO 40 mg DAILY BRE Administration Gabapentin 300 mg 11/29/24 13:00 12/03/24 08:13 Gabapentin 300 Mg Capsule PO 300 mg TID BRE Administration Glucose 15 gm 11/29/24 02:22 Glucose Oral Gel 15 Gm Of Glucse In 37.5 Gm Tube PO PRN PRN Hypoglycemia Protocol Dextrose 1,000 mls @ 100 mls/hr 11/29/24 02:22 Dextrose 5% 1,000 Ml IVPB PRN PRN Hypoglycemia Protocol Dextrose 1,000 mls @ 50 mls/hr 12/01/24 08:14 Dextrose 10% IV CONT .Q20H PRN if PN is interrupted Multivitamins 1.25 ml/ 1,002.5 mls @ 40 mls/hr 12/01/24 12:00 12/02/24 12:41 Multivitamins 1.25 ml/ Amino IV CONT 40 mls/hr Acids/Electrolytes/Dextrose .Q24H BRE Administration Protocol Fat Emulsion Intravenous 250 mls @ 20.833 mls/hr 12/01/24 12:00 12/03/24 00:39 Lipids 20% IVPB Infused Q24H BRE Infusion Ceftriaxone Sodium 1 gm in 50 mls @ 100 mls/hr 12/01/24 14:00 12/02/24 13:00 Rocephin 1 Gm/Ns 50 Ml IVPB 12/04/24 23:59 100 mls/hr Q24H BRE Administration Albumin Human 100 mls @ 60 mls/hr 12/02/24 18:00 12/03/24 05:56 Albutein IVPB 12/03/24 13:39 60 mls/hr Q6HR BRE Administration Sodium Chloride 250 mls @ 30 mls/hr 12/03/24 05:35 12/03/24 08:12 Normal Saline Iv IV CONT 12/03/24 13:54 30 mls/hr .Q8H20M STA Administration Insulin Aspart 1 - 2 units 11/29/24 21:00 12/02/24 21:43 Insulin Aspart (*Bkc) 100 Units/Ml SUB-Q 1 units HS BRE Administration Protocol Insulin Aspart 2 - 5 units 11/29/24 08:00 12/03/24 08:12 Insulin Aspart (*Bkc) 100 Units/Ml SUB-Q Not Given TIDWM BRE Protocol Losartan Potassium 50 mg 11/29/24 21:00 12/02/24 20:23 Losartan Potassium 50 Mg Tablet PO 50 mg Q12H BRE Administration Melatonin 5 mg 11/29/24 21:00 12/02/24 20:23 Melatonin 5 Mg Tablet PO 5 mg HS BRE Administration Ondansetron HCl 4 mg 11/28/24 20:05 Ondansetron Inj 4 Mg/2 Ml Vial IV PUSH Q4H PRN Nausea Pantoprazole Sodium 40 mg 11/30/24 09:00 12/03/24 08:13 Pantoprazole 40 Mg Tablet PO 40 mg QAM BRE Administration Sodium Chloride 10 ml 12/01/24 14:00 12/03/24 05:56 Central Line Flush IV PUSH 10 ml Q8HR BRE Administration Sodium Chloride 10 ml 12/01/24 09:42 Central Line Flush IV PUSH PRN PRN with TPN bag changes Sodium Chloride 20 ml 12/01/24 09:42 Central Line Flush IV PUSH PRN PRN after blood draws Sotalol HCl 120 mg 11/29/24 12:00 12/02/24 20:23 Sotalol Hcl 40 Mg Tablet PO 120 mg Q12HR BRE Administration Radiology Results: ITS Impressions Chest/Abdomen/Pelvis CT 11/30/24 13:27 IMPRESSION: 1. Prominent wall thickening along the distal transverse colon concerning for colon cancer. No lesion suspicious for metastatic disease. 2. Small right and [id number] left pleural effusions with associated atelectasis in the bilateral lower lobes, left greater than right. 3. Cardiomegaly enlargement of the central pulmonary arteries consistent with pulmonary arterial hypertension. 4. Moderate-sized bilateral fat-containing inguinal hernias. 5. Minimal nonspecific ascites in the deep pelvis. Chest X-Ray 12/01/24 09:42 Impression: Right-sided PICC line in satisfactory position. Small left pleural effusion with probable left basilar pulmonary edema/atelectasis. Correlate clinically for pneumonia. Labs Labs: Laboratory Results - last 24 hr 12/02/24 12/02/24 12/02/24 11:51 16:39 20:44 WBC RBC Hgb Hct MCV MCH MCHC RDW Plt Count MPV Immature Gran % (Auto) Neut % (Auto) Lymph % (Auto) [place] % (Auto) Eos % (Auto) Baso % (Auto) Lymph # (Auto) [place] # (Auto) Eos # (Auto) Baso # (Auto) Abs Immat Gran (auto) Absolute Neuts (auto) Absolute Nucleated RBC Band Neutrophils % Nucleated RBC % Platelet Estimate Hypochromasia Anisocytosis Ovalocytes Schistocytes Sodium Potassium Chloride Carbon Dioxide Anion Gap BUN Creatinine Estim Creat Clear Calc Estimated GFR Glucose POC Capillary Glucose 132 H 131 H 255 H Calcium Phosphorus Total Bilirubin AST ALT Alkaline Phosphatase Total Protein Albumin Blood Type Antibody Screen Crossmatch 12/03/24 12/03/24 12/03/24 04:41 05:57 07:59 WBC 5.3 RBC 2.41 L Hgb 6.4 L* Hct 22.2 L MCV 92.1 MCH 26.6 MCHC 28.8 L RDW 16.0 H Plt Count 179 MPV 9.1 Immature Gran % (Auto) 0.4 Neut % (Auto) 70.0 Lymph % (Auto) 17.0 L [place] % (Auto) 9.6 H Eos % (Auto) 2.6 Baso % (Auto) 0.4 Lymph # (Auto) 0.91 [place] # (Auto) 0.5 Eos # (Auto) 0.1 Baso # (Auto) 0.0 Abs Immat Gran (auto) 0.02 Absolute Neuts (auto) 3.7 Absolute Nucleated RBC 0.000 Band Neutrophils % 0 Nucleated RBC % 0.0 Platelet Estimate Slightly increased Hypochromasia 1+ Anisocytosis 1+ Ovalocytes 1+ Schistocytes None seen Sodium 133 L Potassium 4.0 Chloride 102 Carbon Dioxide 30 Anion Gap 1 L BUN 16 Creatinine 0.60 L Estim Creat Clear Calc 92 Estimated GFR > 60 Glucose 115 H POC Capillary Glucose 111 H Calcium 7.1 L Phosphorus 3.2 Total Bilirubin 0.3 AST 24 ALT 15 Alkaline Phosphatase 57 Total Protein 5.0 L Albumin 2.1 L Blood Type B Positive Antibody Screen Negative Crossmatch See Detail Quality VTE Prophylaxis VTE prophylaxis: mechanical ordered
[2024-12-03] MEDS: SOTALOL HCL 40 MG TABLET 120 MG PO ×2 (09:13→21:20)
[2024-12-03] MEDS: LOSARTAN POTASSIUM 50 MG TABLET PO ×2 (09:13→21:21)
--- NOTE | 2024-12-03 10:45 | WPDONCPN ---
Progress Note: A&P Assessment and Plan (1) Colonic mass: Code(s): K63.89 - Other specified diseases of intestine Status: Acute Assessment and Plan: Patient admitted for anemia with iron deficiency noted in labs done at admission. Patient underwent colonoscopy on 11/30/2024 and was found to have a completely obstructive fungating mass in the ascending colon measuring 3-4 cm. Pathology of the mass is reported as necrotic specimen with some high-grade dysplasia. A comment is made by pathologist that this is no doubt an invasive malignancy and the specimen is only on from the top of the tumor. CT scan of the chest, abdomen, and pelvis performed 11/30/2024 showed thickening along the distal transverse colon concerning for cancer. There was no metastatic disease. There were small right and moderate left pleural effusion with cardiomegaly. At this time issue seems to be localized colon cancer and with pending obstruction he will need a surgical intervention sooner than later. I explained this to the patient and his at bedside General surgery has seen patient today and recommended TPN to raise the nutrition level. Patient is also taking Ensure 3 times a day. Plan is for surgery on Thursday12/05/2024. (2) Iron deficiency anemia: Code(s): D50.9 - Iron deficiency anemia, unspecified Status: Acute Assessment and Plan: Patient with a hemoglobin of 6.4 today secondary to the colonic mass. He is getting 1 unit of PRBC today. We can only support symptomatically at this time until the mass is resected. Subjective Date/time seen: 12/03/24 10:45 Interval history: Patient is resting comfortably no overnight events. Hemoglobin was 6.4 this morning and he is getting 1 unit of PRBC today. He is eating well and has been passing bowels okay. Review of Systems Review of Systems He denies any chest pain, shortness of breath, cough, hemoptysis. He denies any abdominal pain. Patient reports that he has been passing bowels okay without any pain although he reports some diarrhea. He denies any hematochezia or melena. Patient states that he has increased his Ensure intake to 3 times a day while hospitalized. Rest of the 12 point review of system is negative Exam Narrative: General: chronic illl appearing, elderly male in no acute distress HEENT: normocephalic, atraumatic. Mucous membranes moist. EOMI, PERRLA, bilateral sclera anicteric, no conjunctival injection. Neck supple without JVD, lymphadenopathy, or bruit. Respiratory: clear to ascultation bilaterally. No rales/rhonic/wheezes. Cardiovascular: Regular rate and rhythm, no m/g/r Abdomen: Soft, round, no pulsatile masses, nondistended and nontender. No rebound, no guarding. No CVA tenderness, no hepatosplenomegaly. Bowel sounds present to all four quadrants. Extremities: Patient has 2+ edema in bilateral lower extremity Neuro: Alert and orientated x 4. PERRLA. Cranial nerves 2-12 intact without focal deficit. Skin: Warm, dry, and intact, without rash, erythema, or lesion. Psych: pleasant, cooperative, normal speech, normal affect, no hallucinations, no dysarthia Objective Data Vital Signs Vital Signs: Vital Signs - 24 hr 12/02/24 12:00 12/02/24 14:00 12/02/24 16:00 Temperature 36.3 C L Pulse Rate 76 88 76 Respiratory Rate 18 Blood Pressure 128/62 Pulse Oximetry 98 Oxygen Delivery 12/02/24 20:00 12/02/24 20:23 12/02/24 20:30 Temperature Pulse Rate 80 80 Respiratory Rate Blood Pressure Pulse Oximetry Oxygen Delivery Room Air 12/02/24 20:36 12/03/24 00:00 12/03/24 04:07 Temperature 36.8 C Pulse Rate 82 76 77 Respiratory Rate 16 Blood Pressure 141/60 H Pulse Oximetry 96 Oxygen Delivery 12/03/24 05:26 12/03/24 08:06 12/03/24 08:13 Temperature 36.8 C 36.4 C L Pulse Rate 77 75 Respiratory Rate 16 16 Blood Pressure 107/57 L 108/63 Pulse Oximetry 95 96 Oxygen Delivery Room Air 12/03/24 08:26 12/03/24 09:13 12/03/24 09:26 Temperature 36.9 C 36.8 C Pulse Rate 75 76 75 Respiratory Rate 20 20 Blood Pressure 110/60 101/53 L Pulse Oximetry 92 95 Oxygen Delivery 12/03/24 10:26 Temperature 36.8 C Pulse Rate 76 Respiratory Rate 18 Blood Pressure 117/67 Pulse Oximetry 96 Oxygen Delivery Intake/Output Intake/Output: Intake & Output 11/30/24 12/01/24 12/02/24 12/03/24 23:59 23:59 23:59 23:59 Intake Total 540 1354 2987.3 1157 Output Total 1 538 3840 1350 Balance 539 504 637.3 -193 Meds/Results Medications: Active Medications Generic Name Dose Route Start Last Admin Trade Name Freq PRN Reason Stop Dose Admin Acetaminophen 650 mg 11/28/24 20:05 12/03/24 03:38 Acetaminophen 325 Mg Tablet PO 650 mg Q4H PRN Administration Mild Pain (1-3) or Fever Atorvastatin Calcium 40 mg 11/29/24 21:00 12/02/24 20:23 Atorvastatin 40 Mg Tablet PO 40 mg HS BRE Administration Dextrose 12.5 gm 11/29/24 02:22 Dextrose 50% 25 Gm/50 Ml Syringe IV PUSH PRN PRN Hypoglycemia Protocol Ferrous Sulfate 325 mg 11/30/24 09:00 12/03/24 08:13 Ferrous Sulfate [address] BY MOUTH 325 mg DAILY BRE Administration Furosemide 40 mg 11/30/24 09:00 12/03/24 08:13 Furosemide 40 Mg Tablet PO 40 mg DAILY BRE Administration Gabapentin 300 mg 11/29/24 13:00 12/03/24 08:13 Gabapentin 300 Mg Capsule PO 300 mg TID BRE Administration Glucose 15 gm 11/29/24 02:22 Glucose Oral Gel 15 Gm Of Glucse In 37.5 Gm Tube PO PRN PRN Hypoglycemia Protocol Dextrose 1,000 mls @ 100 mls/hr 11/29/24 02:22 Dextrose 5% 1,000 Ml IVPB PRN PRN Hypoglycemia Protocol Dextrose 1,000 mls @ 50 mls/hr 12/01/24 08:14 Dextrose 10% IV CONT .Q20H PRN if PN is interrupted Multivitamins 1.25 ml/ 1,002.5 mls @ 40 mls/hr 12/01/24 12:00 12/02/24 12:41 Multivitamins 1.25 ml/ Amino IV CONT 40 mls/hr Acids/Electrolytes/Dextrose .Q24H BRE Administration Protocol Fat Emulsion Intravenous 250 mls @ 20.833 mls/hr 12/01/24 12:00 12/03/24 00:39 Lipids 20% IVPB Infused Q24H BRE Infusion Ceftriaxone Sodium 1 gm in 50 mls @ 100 mls/hr 12/01/24 14:00 12/02/24 13:00 Rocephin 1 Gm/Ns 50 Ml IVPB 12/04/24 23:59 100 mls/hr Q24H BRE Administration Albumin Human 100 mls @ 60 mls/hr 12/02/24 18:00 12/03/24 05:56 Albutein IVPB 12/03/24 13:39 60 mls/hr Q6HR BRE Administration Sodium Chloride 250 mls @ 30 mls/hr 12/03/24 05:35 12/03/24 08:12 Normal Saline Iv IV CONT 12/03/24 13:54 30 mls/hr .Q8H20M STA Administration Sodium Chloride 250 mls @ 30 mls/hr 12/03/24 08:23 Normal Saline Iv IV CONT 12/03/24 16:42 .Q8H20M STA Insulin Aspart 1 - 2 units 11/29/24 21:00 12/02/24 21:43 Insulin Aspart (*Bkc) 100 Units/Ml SUB-Q 1 units HS BRE Administration Protocol Insulin Aspart 2 - 5 units 11/29/24 08:00 12/03/24 08:12 Insulin Aspart (*Bkc) 100 Units/Ml SUB-Q Not Given TIDWM BRE Protocol Losartan Potassium 50 mg 11/29/24 21:00 12/03/24 09:13 Losartan Potassium 50 Mg Tablet PO 50 mg Q12H BRE Administration Melatonin 5 mg 11/29/24 21:00 12/02/24 20:23 Melatonin 5 Mg Tablet PO 5 mg HS BRE Administration Ondansetron HCl 4 mg 11/28/24 20:05 Ondansetron Inj 4 Mg/2 Ml Vial IV PUSH Q4H PRN Nausea Pantoprazole Sodium 40 mg 11/30/24 09:00 12/03/24 08:13 Pantoprazole 40 Mg Tablet PO 40 mg QAM BRE Administration Sodium Chloride 10 ml 12/01/24 14:00 12/03/24 05:56 Central Line Flush IV PUSH 10 ml Q8HR BRE Administration Sodium Chloride 10 ml 12/01/24 09:42 Central Line Flush IV PUSH PRN PRN with TPN bag changes Sodium Chloride 20 ml 12/01/24 09:42 Central Line Flush IV PUSH PRN PRN after blood draws Sotalol HCl 120 mg 11/29/24 12:00 12/03/24 09:13 Sotalol Hcl 40 Mg Tablet PO 120 mg Q12HR BRE Administration Radiology Results: ITS Impressions Chest/Abdomen/Pelvis CT 11/30/24 13:27 IMPRESSION: 1. Prominent wall thickening along the distal transverse colon concerning for colon cancer. No lesion suspicious for metastatic disease. 2. Small right and [id number] left pleural effusions with associated atelectasis in the bilateral lower lobes, left greater than right. 3. Cardiomegaly enlargement of the central pulmonary arteries consistent with pulmonary arterial hypertension. 4. Moderate-sized bilateral fat-containing inguinal hernias. 5. Minimal nonspecific ascites in the deep pelvis. Chest X-Ray 12/01/24 09:42 Impression: Right-sided PICC line in satisfactory position. Small left pleural effusion with probable left basilar pulmonary edema/atelectasis. Correlate clinically for pneumonia. Labs Labs: Laboratory Results - last 24 hr 12/02/24 12/02/24 12/02/24 11:51 16:39 20:44 WBC RBC Hgb Hct MCV MCH MCHC RDW Plt Count MPV Immature Gran % (Auto) Neut % (Auto) Lymph % (Auto) [place] % (Auto) Eos % (Auto) Baso % (Auto) Lymph # (Auto) [place] # (Auto) Eos # (Auto) Baso # (Auto) Abs Immat Gran (auto) Absolute Neuts (auto) Absolute Nucleated RBC Band Neutrophils % Nucleated RBC % Platelet Estimate Hypochromasia Anisocytosis Ovalocytes Schistocytes Sodium Potassium Chloride Carbon Dioxide Anion Gap BUN Creatinine Estim Creat Clear Calc Estimated GFR Glucose POC Capillary Glucose 132 H 131 H 255 H Calcium Phosphorus Total Bilirubin AST ALT Alkaline Phosphatase Total Protein Albumin Blood Type Antibody Screen Crossmatch 12/03/24 12/03/24 12/03/24 04:41 05:57 07:59 WBC 5.3 RBC 2.41 L Hgb 6.4 L* Hct 22.2 L MCV 92.1 MCH 26.6 MCHC 28.8 L RDW 16.0 H Plt Count 179 MPV 9.1 Immature Gran % (Auto) 0.4 Neut % (Auto) 70.0 Lymph % (Auto) 17.0 L [place] % (Auto) 9.6 H Eos % (Auto) 2.6 Baso % (Auto) 0.4 Lymph # (Auto) 0.91 [place] # (Auto) 0.5 Eos # (Auto) 0.1 Baso # (Auto) 0.0 Abs Immat Gran (auto) 0.02 Absolute Neuts (auto) 3.7 Absolute Nucleated RBC 0.000 Band Neutrophils % 0 Nucleated RBC % 0.0 Platelet Estimate Slightly increased Hypochromasia 1+ Anisocytosis 1+ Ovalocytes 1+ Schistocytes None seen Sodium 133 L Potassium 4.0 Chloride 102 Carbon Dioxide 30 Anion Gap 1 L BUN 16 Creatinine 0.60 L Estim Creat Clear Calc 92 Estimated GFR > 60 Glucose 115 H POC Capillary Glucose 111 H Calcium 7.1 L Phosphorus 3.2 Total Bilirubin 0.3 AST 24 ALT 15 Alkaline Phosphatase 57 Total Protein 5.0 L Albumin 2.1 L Blood Type B Positive Antibody Screen Negative Crossmatch See Detail
[2024-12-03 12:04] LABS: Glucose Point of Care 102 mg/dl (65-105)
[2024-12-03] MEDS: FAT EMULSIONS IV 20% 250 ML 20.8 ML IVPB (12:38)
[2024-12-03] MEDS: AMINO ACIDS 5%/D15W/E-LYTES/CA 1,000 ML with MULTIVITAMINS-12 INJ VIAL 1 1.25 ML, MULTI... 40 ML IV CONT (12:39)
--- NOTE | 2024-12-03 14:01 | PM.PNGS ---
Progress Note: A&P Assessment and Plan (1) Colonic mass: Code(s): K63.89 - Other specified diseases of intestine Status: Acute Assessment and Plan: plan for resection early next week, cont medical optimization, getting 1 u PRBC this am (2) Protein calorie malnutrition: Code(s): E46 - Unspecified protein-calorie malnutrition Status: Acute Assessment and Plan: cont optimization c supplements and TPN Subjective Subjective Date/Time Seen: 12/03/24 14:01 Interval history: no acute issues, getting transfusion this am Review of Systems Review of Systems: All systems reviewed & are unremarkable except as noted in HPI and below Exam Const: General: cooperative, comfortable, no acute distress and ill appearing Resp: Auscultation: clear to auscultation bilaterally Cardio: Rate: regular rate Rhythm: regular rhythm GI: Inspection: normal to inspection and non-distended GI Palp: No abdominal tenderness and Yes Soft to palpation Objective Data Vital Signs Vital Signs: Vital Signs - 24 hr 12/02/24 16:00 12/02/24 20:00 12/02/24 20:23 Temperature Pulse Rate 76 80 80 Respiratory Rate Blood Pressure Pulse Oximetry Oxygen Delivery 12/02/24 20:30 12/02/24 20:36 12/03/24 00:00 Temperature 36.8 C Pulse Rate 82 76 Respiratory Rate 16 Blood Pressure 141/60 H Pulse Oximetry 96 Oxygen Delivery Room Air 12/03/24 04:07 12/03/24 05:26 12/03/24 08:00 Temperature 36.8 C Pulse Rate 77 77 80 Respiratory Rate 16 Blood Pressure 107/57 L Pulse Oximetry 95 Oxygen Delivery 12/03/24 08:06 12/03/24 08:13 12/03/24 08:26 Temperature 36.4 C L 36.9 C Pulse Rate 75 75 Respiratory Rate 16 20 Blood Pressure 108/63 110/60 Pulse Oximetry 96 92 Oxygen Delivery Room Air 12/03/24 09:13 12/03/24 09:26 12/03/24 10:26 Temperature 36.8 C 36.8 C Pulse Rate 76 75 76 Respiratory Rate 20 18 Blood Pressure 101/53 L 117/67 Pulse Oximetry 95 96 Oxygen Delivery 12/03/24 11:45 12/03/24 12:24 12/03/24 12:42 Temperature 36.8 C 36.6 C 36.5 C Pulse Rate 75 76 80 Respiratory Rate 18 18 18 Blood Pressure 117/58 L 134/72 120/66 Pulse Oximetry 95 97 95 Oxygen Delivery Intake/Output Intake/Output: Intake & Output 11/30/24 12/01/24 12/02/24 12/03/24 23:59 23:59 23:59 23:59 Intake Total 540 1354 2987.3 3258.2 Output Total 1 850 2350 2650 Balance 539 504 637.3 608.2 Meds/Results Medications: Active Medications Generic Name Dose Route Start Last Admin Trade Name Freq PRN Reason Stop Dose Admin Acetaminophen 650 mg 11/28/24 20:05 12/03/24 03:38 Acetaminophen 325 Mg Tablet PO 650 mg Q4H PRN Administration Mild Pain (1-3) or Fever Atorvastatin Calcium 40 mg 11/29/24 21:00 12/02/24 20:23 Atorvastatin 40 Mg Tablet PO 40 mg HS BRE Administration Dextrose 12.5 gm 11/29/24 02:22 Dextrose 50% 25 Gm/50 Ml Syringe IV PUSH PRN PRN Hypoglycemia Protocol Ferrous Sulfate 325 mg 11/30/24 09:00 12/03/24 08:13 Ferrous Sulfate [address] BY MOUTH 325 mg DAILY BRE Administration Furosemide 40 mg 11/30/24 09:00 12/03/24 08:13 Furosemide 40 Mg Tablet PO 40 mg DAILY BRE Administration Gabapentin 300 mg 11/29/24 13:00 12/03/24 08:13 Gabapentin 300 Mg Capsule PO 300 mg TID BRE Administration Glucose 15 gm 11/29/24 02:22 Glucose Oral Gel 15 Gm Of Glucse In 37.5 Gm Tube PO PRN PRN Hypoglycemia Protocol Dextrose 1,000 mls @ 100 mls/hr 11/29/24 02:22 Dextrose 5% 1,000 Ml IVPB PRN PRN Hypoglycemia Protocol Dextrose 1,000 mls @ 50 mls/hr 12/01/24 08:14 Dextrose 10% IV CONT .Q20H PRN if PN is interrupted Multivitamins 1.25 ml/ 1,002.5 mls @ 40 mls/hr 12/01/24 12:00 12/03/24 12:39 Multivitamins 1.25 ml/ Amino IV CONT 40 mls/hr Acids/Electrolytes/Dextrose .Q24H BRE Administration Protocol Fat Emulsion Intravenous 250 mls @ 20.833 mls/hr 12/01/24 12:00 12/03/24 12:38 Lipids 20% IVPB 20.8 mls/hr Q24H BRE Administration Ceftriaxone Sodium 1 gm in 50 mls @ 100 mls/hr 12/01/24 14:00 12/02/24 13:00 Rocephin 1 Gm/Ns 50 Ml IVPB 12/04/24 23:59 100 mls/hr Q24H BRE Administration Sodium Chloride 250 mls @ 30 mls/hr 12/03/24 05:35 12/03/24 08:12 Normal Saline Iv IV CONT 12/03/24 13:54 30 mls/hr .Q8H20M STA Administration Sodium Chloride 250 mls @ 30 mls/hr 12/03/24 08:23 12/03/24 12:32 Normal Saline Iv IV CONT 12/03/24 16:42 30 mls/hr .Q8H20M STA Administration Insulin Aspart 1 - 2 units 11/29/24 21:00 12/02/24 21:43 Insulin Aspart (*Bkc) 100 Units/Ml SUB-Q 1 units HS BRE Administration Protocol Insulin Aspart 2 - 5 units 11/29/24 08:00 12/03/24 11:43 Insulin Aspart (*Bkc) 100 Units/Ml SUB-Q Not Given TIDWM BRE Protocol Losartan Potassium 50 mg 11/29/24 21:00 12/03/24 09:13 Losartan Potassium 50 Mg Tablet PO 50 mg Q12H BRE Administration Melatonin 5 mg 11/29/24 21:00 12/02/24 20:23 Melatonin 5 Mg Tablet PO 5 mg HS BRE Administration Ondansetron HCl 4 mg 11/28/24 20:05 Ondansetron Inj 4 Mg/2 Ml Vial IV PUSH Q4H PRN Nausea Pantoprazole Sodium 40 mg 11/30/24 09:00 12/03/24 08:13 Pantoprazole 40 Mg Tablet PO 40 mg QAM BRE Administration Sodium Chloride 10 ml 12/01/24 14:00 12/03/24 12:40 Central Line Flush IV PUSH 10 ml Q8HR BRE Administration Sodium Chloride 10 ml 12/01/24 09:42 Central Line Flush IV PUSH PRN PRN with TPN bag changes Sodium Chloride 20 ml 12/01/24 09:42 Central Line Flush IV PUSH PRN PRN after blood draws Sotalol HCl 120 mg 11/29/24 12:00 12/03/24 09:13 Sotalol Hcl 40 Mg Tablet PO 120 mg Q12HR BRE Administration Radiology Results: ITS Impressions Chest/Abdomen/Pelvis CT 11/30/24 13:27 IMPRESSION: 1. Prominent wall thickening along the distal transverse colon concerning for colon cancer. No lesion suspicious for metastatic disease. 2. Small right and [id number] left pleural effusions with associated atelectasis in the bilateral lower lobes, left greater than right. 3. Cardiomegaly enlargement of the central pulmonary arteries consistent with pulmonary arterial hypertension. 4. Moderate-sized bilateral fat-containing inguinal hernias. 5. Minimal nonspecific ascites in the deep pelvis. Chest X-Ray 12/01/24 09:42 Impression: Right-sided PICC line in satisfactory position. Small left pleural effusion with probable left basilar pulmonary edema/atelectasis. Correlate clinically for pneumonia. Labs Labs: Laboratory Results - last 24 hr 12/02/24 12/02/24 12/03/24 16:39 20:44 04:41 WBC 5.3 RBC 2.41 L Hgb 6.4 L* Hct 22.2 L MCV 92.1 MCH 26.6 MCHC 28.8 L RDW 16.0 H Plt Count 179 MPV 9.1 Immature Gran % (Auto) 0.4 Neut % (Auto) 70.0 Lymph % (Auto) 17.0 L [place] % (Auto) 9.6 H Eos % (Auto) 2.6 Baso % (Auto) 0.4 Lymph # (Auto) 0.91 [place] # (Auto) 0.5 Eos # (Auto) 0.1 Baso # (Auto) 0.0 Abs Immat Gran (auto) 0.02 Absolute Neuts (auto) 3.7 Absolute Nucleated RBC 0.000 Band Neutrophils % 0 Nucleated RBC % 0.0 Platelet Estimate Slightly increased Hypochromasia 1+ Anisocytosis 1+ Ovalocytes 1+ Schistocytes None seen Sodium 133 L Potassium 4.0 Chloride 102 Carbon Dioxide 30 Anion Gap 1 L BUN 16 Creatinine 0.60 L Estim Creat Clear Calc 92 Estimated GFR > 60 Glucose 115 H POC Capillary Glucose 131 H 255 H Calcium 7.1 L Phosphorus 3.2 Total Bilirubin 0.3 AST 24 ALT 15 Alkaline Phosphatase 57 Total Protein 5.0 L Albumin 2.1 L Blood Type Antibody Screen Crossmatch 12/03/24 12/03/24 12/03/24 05:57 07:59 11:43 WBC RBC Hgb Hct MCV MCH MCHC RDW Plt Count MPV Immature Gran % (Auto) Neut % (Auto) Lymph % (Auto) [place] % (Auto) Eos % (Auto) Baso % (Auto) Lymph # (Auto) [place] # (Auto) Eos # (Auto) Baso # (Auto) Abs Immat Gran (auto) Absolute Neuts (auto) Absolute Nucleated RBC Band Neutrophils % Nucleated RBC % Platelet Estimate Hypochromasia Anisocytosis Ovalocytes Schistocytes Sodium Potassium Chloride Carbon Dioxide Anion Gap BUN Creatinine Estim Creat Clear Calc Estimated GFR Glucose POC Capillary Glucose 111 H 102 Calcium Phosphorus Total Bilirubin AST ALT Alkaline Phosphatase Total Protein Albumin Blood Type B Positive Antibody Screen Negative Crossmatch See Detail
[2024-12-03 17:30] LABS: Glucose Point of Care 102 mg/dl (65-105)
[2024-12-03 19:57] LABS: Glucose Point of Care 124 mg/dl (65-105)
[2024-12-03] MEDS: ATORVASTATIN 40 MG TABLET PO (21:20)
[2024-12-03] MEDS: MELATONIN 5 MG TABLET PO (21:20)
[2024-12-03] MEDS: CENTRAL LINE FLUSH 20 ML IV PUSH (21:22)
[2024-12-03 21:24] LABS: Glucose Point of Care 123 mg/dl (65-105)
[2024-12-03 21:27] LABS: Hematocrit 28.2 % (42.0-52.0); Hemoglobin 8.7 g/dL (14.0-18.0)
[2024-12-04] VITALS (14 sets, daily range): BP systolic 126–147; BP diastolic 62–70; PULSE 75–77; RESP 16–32; TEMP 36.8–39.1; O2SAT 92–94
--- NOTE | 2024-12-04 05:32 | PC.NURSE ---
Supervisor [facility] bedside to obtain labs. Several attempts to draw from line unsuccessful.
[2024-12-04] MEDS: CENTRAL LINE FLUSH 10 ML IV PUSH ×3 (05:35→21:32)
[2024-12-04 05:36] LABS: Anion Gap 0 mmol/L (4-12); Blood Urea Nitrogen 15 mg/dL (9-20); Calcium 7.5 mg/dL (8.4-10.2); Carbon Dioxide 32 mmol/L (22-30); Chloride 101 mmol/L (98-107); Estimated CRCL calculation 83 ml/min; Estimated Glomerular Filt Rate > 60; Glucose 114 mg/dL (65-110); Phosphorus 3.5 mg/dL (2.5-4.5); Potassium 3.9 mmol/L (3.4-5.0); Sodium 133 mmol/L (137-145)
[2024-12-04] MEDS: CENTRAL LINE FLUSH 20 ML IV PUSH (05:36)
[2024-12-04 06:33] LABS: Triglycerides 92 mg/dL (<150)
--- NOTE | 2024-12-04 08:01 | P.PNIM_ITS ---
Progress Note: A&P Assessment and Plan (1) Colonic mass: Code(s): K63.89 - Other specified diseases of intestine Status: Acute Assessment and Plan: * Colonoscopy 11/30: Completely-obstructing circumferential, fungating, friable, infiltrative, malignant appearing mass observed in ascending colon, approx 3- 4cm. Multiple biopsies taken * GI, Gen Surg, Heme/Onc following * CEA = 7.8 * PICC Line established, to start TPN for nutrition boost and to increase Albumin * Surgical resection through Gen Surg for colonic mass, tentatively scheduled for early this week * TPN and Ensure for nutrition supplementation * Plan for OR tomorrow for colectomy (2) Anemia: Qualifiers: Anemia type: iron deficiency Iron deficiency anemia type: unspecified iron deficiency Qualified Code(s): D50.9 - Iron deficiency anemia, unspecified Code(s): D64.9 - Anemia, unspecified Status: Acute Assessment and Plan: * 1 RBC 11/29 * Telemetry monitoring * Anemia workup, unable do iron panel due to transfusion * Colonoscopy and EGD yesterday, see above * Stable * Likely related to colonic mass * Hgb 6.4 12/03: Transfused 2 units PRBC * 12/04: Hgb 8.7, stable (3) Acute UTI: Code(s): N39.0 - Urinary tract infection, site not specified Status: Acute Assessment and Plan: * Could be a factor in weakness * Culture showed Klebsiella growth with Rocephin susceptibility * Continue IV Rocephin (4) HTN (hypertension): Code(s): I10 - Essential (primary) hypertension Status: Acute Assessment and Plan: * Continue cozaar * stable (5) Afib: Code(s): I48.91 - Unspecified atrial fibrillation Status: Acute Assessment and Plan: * Continue sotalol * stable (6) Diabetes: Code(s): E11.9 - Type 2 diabetes mellitus without complications Status: Acute Assessment and Plan: * Hold metformin * Diabetic diet * A Accu-Cheks a.c. HS * SSI (7) Weakness: Code(s): R53.1 - Weakness Status: Acute Assessment and Plan: * PT and OT * Ensure t.i.d. * PICC line inserted on 12/01 * TPN for further supplementation (8) Edema: Code(s): R60.9 - Edema, unspecified Status: Acute Assessment and Plan: * Continue IV Lasix * Request outside records Time Spent With Patient Time: - Subjective Date/time seen: 12/04/24 08:01 Interval history: 79-year-old male past history of history of CABG and pacemaker, atrial fibrillation, GERD, high cholesterol on Lasix presents the hospital with complaints of swelling of hands and feet and not being able to walk. 12/04/2024 Patient sitting comfortably in bed at time examination. Denies any chest pain, shortness a breath, nausea/vomiting, abdominal pain, or urinary/bowel complaints at this time. Received 2 units PRBC yesterday, repeat hemoglobin today 8.7. Patient otherwise feels good today, denies any urinary/bowel complaints. Plan for OR tomorrow for colectomy. Review of Systems Review of Systems: 12 systems were reviewed and are negativ e except for as per HPI. Exam Narrative: General: chronic illl appearing, appears older than stated age. HEENT: normocephalic, atraumatic. Mucous membranes moist. EOMI, PERRLA, bilateral sclera anicteric, no conjunctival injection. Neck supple without JVD, lymphadenopathy, or bruit. Respiratory: clear to ascultation bilaterally. No rales/rhonic/wheezes. Cardiovascular: Regular rate and rhythm, normal S1-S2 upon ascultation. No murmurs, rubs, or clicks. PMI is nondisplaced, capillary refill less than 3 second. Abdomen: Soft, round, no pulsatile masses, nondistended and nontender. No rebound, no guarding. No CVA tenderness, no hepatosplenomegaly. Bowel sounds present to all four quadrants. No high pitch or tinkling sounds, resonant to percussion. Extremities: No cyanosis, clubbing, or edema present. Pulses are palpable 2/2. Active ROM to all four extremities. Neuro: Alert and orientated x 4. PERRLA. Cranial nerves 2-12 intact without f ocal deficit. Skin: Warm, dry, and intact, without rash, erythema, or lesion. Psych: pleasant, cooperative, normal speech, normal affect, no hallucinations, no dysarthia Objective Data Vital Signs Vital Signs: Vital Signs - 24 hr 12/03/24 08:06 12/03/24 08:13 12/03/24 08:26 Temperature 97.5 F L 98.4 F Pulse Rate 75 75 Respiratory Rate 16 20 Blood Pressure 108/63 110/60 Pulse Oximetry 96 92 Oxygen Delivery Room Air 12/03/24 09:13 12/03/24 09:26 12/03/24 10:26 Temperature 98.2 F 98.2 F Pulse Rate 76 75 76 Respiratory Rate 20 18 Blood Pressure 101/53 L 117/67 Pulse Oximetry 95 96 Oxygen Delivery 12/03/24 11:45 12/03/24 12:00 12/03/24 12:24 Temperature 98.2 F 97.9 F Pulse Rate 75 76 76 Respiratory Rate 18 18 Blood Pressure 117/58 L 134/72 Pulse Oximetry 95 97 Oxygen Delivery 12/03/24 12:42 12/03/24 13:42 12/03/24 14:42 Temperature 97.7 F 97.5 F L 98.2 F Pulse Rate 80 74 72 Respiratory Rate 18 16 16 Blood Pressure 120/66 108/52 L 112/61 Pulse Oximetry 95 98 98 Oxygen Delivery 12/03/24 15:42 12/03/24 16:00 12/03/24 16:09 Temperature 98.4 F 98.4 F Pulse Rate 75 76 75 Respiratory Rate 16 16 Blood Pressure 128/67 140/70 Pulse Oximetry 99 99 Oxygen Delivery 12/03/24 20:00 12/03/24 20:05 12/03/24 20:46 Temperature 98.5 F Pulse Rate 76 75 59 L Respiratory Rate 20 Blood Pressure 133/64 Pulse Oximetry 95 94 Oxygen Delivery Room Air 12/03/24 21:20 12/03/24 21:28 12/04/24 00:00 Temperature Pulse Rate 76 76 Respiratory Rate Blood Pressure Pulse Oximetry Oxygen Delivery Room Air 12/04/24 04:14 12/04/24 06:00 Temperature 98.2 F Pulse Rate 76 75 Respiratory Rate 18 Blood Pressure 147/70 H Pulse Oximetry 94 Oxygen Delivery Intake/Output Intake/Output: Intake & Output 12/01/24 12/02/24 12/03/24 12/04/24 23:59 23:59 23:59 23:59 Intake Total 1354 3087.3 4128.2 250 Output Total 850 2350 3450 750 Balance 504 737.3 678.2 -500 Meds/Results Medications: Active Medications Generic Name Dose Route Start Last Admin Trade Name Freq PRN Reason Stop Dose Admin Acetaminophen 650 mg 11/28/24 20:05 12/03/24 03:38 Acetaminophen 325 Mg Tablet PO 650 mg Q4H PRN Administration Mild Pain (1-3) or Fever Atorvastatin Calcium 40 mg 11/29/24 21:00 12/03/24 21:20 Atorvastatin 40 Mg Tablet PO 40 mg HS BRE Administration Dextrose 12.5 gm 11/29/24 02:22 Dextrose 50% 25 Gm/50 Ml Syringe IV PUSH PRN PRN Hypoglycemia Protocol Ferrous Sulfate 325 mg 11/30/24 09:00 12/03/24 08:13 Ferrous Sulfate [address] BY MOUTH 325 mg DAILY BRE Administration Furosemide 40 mg 11/30/24 09:00 12/03/24 08:13 Furosemide 40 Mg Tablet PO 40 mg DAILY BRE Administration Gabapentin 300 mg 11/29/24 13:00 12/03/24 17:08 Gabapentin 300 Mg Capsule PO 300 mg TID BRE Administration Glucose 15 gm 11/29/24 02:22 Glucose Oral Gel 15 Gm Of Glucse In 37.5 Gm Tube PO PRN PRN Hypoglycemia Protocol Dextrose 1,000 mls @ 100 mls/hr 11/29/24 02:22 Dextrose 5% 1,000 Ml IVPB PRN PRN Hypoglycemia Protocol Dextrose 1,000 mls @ 50 mls/hr 12/01/24 08:14 Dextrose 10% IV CONT .Q20H PRN if PN is interrupted Multivitamins 1.25 ml/ 1,002.5 mls @ 40 mls/hr 12/01/24 12:00 12/03/24 12:39 Multivitamins 1.25 ml/ Amino IV CONT 40 mls/hr Acids/Electrolytes/Dextrose .Q24H BRE Administration Protocol Fat Emulsion Intravenous 250 mls @ 20.833 mls/hr 12/01/24 12:00 12/04/24 00:26 Lipids 20% IVPB Infused Q24H BRE Infusion Ceftriaxone Sodium 1 gm in 50 mls @ 100 mls/hr 12/01/24 14:00 12/03/24 16:26 Rocephin 1 Gm/Ns 50 Ml IVPB 12/04/24 23:59 Infused Q24H BRE Infusion Insulin Aspart 1 - 2 units 11/29/24 21:00 12/03/24 21:21 Insulin Aspart (*Bkc) 100 Units/Ml SUB-Q Not Given HS BRE Protocol Insulin Aspart 2 - 5 units 11/29/24 08:00 12/03/24 17:27 Insulin Aspart (*Bkc) 100 Units/Ml SUB-Q Not Given [facility] Protocol Losartan Potassium 50 mg 11/29/24 21:00 12/03/24 21:21 Losartan Potassium 50 Mg Tablet PO 50 mg Q12H BRE Administration Melatonin 5 mg 11/29/24 21:00 12/03/24 21:20 Melatonin 5 Mg Tablet PO 5 mg HS BRE Administration Ondansetron HCl 4 mg 11/28/24 20:05 Ondansetron Inj 4 Mg/2 Ml Vial IV PUSH Q4H PRN Nausea Pantoprazole Sodium 40 mg 11/30/24 09:00 12/03/24 08:13 Pantoprazole 40 Mg Tablet PO 40 mg QAM BRE Administration Sodium Chloride 10 ml 12/01/24 14:00 12/04/24 05:35 Central Line Flush IV PUSH 10 ml Q8HR BRE Administration Sodium Chloride 10 ml 12/01/24 09:42 Central Line Flush IV PUSH PRN PRN with TPN bag changes Sodium Chloride 20 ml 12/01/24 09:42 12/04/24 05:36 Central Line Flush IV PUSH 20 ml PRN PRN Administration after blood draws Sotalol HCl 120 mg 11/29/24 12:00 12/03/24 21:20 Sotalol Hcl 40 Mg Tablet PO 120 mg Q12HR BRE Administration Radiology Results: ITS Impressions Chest/Abdomen/Pelvis CT 11/30/24 13:27 IMPRESSION: 1. Prominent wall thickening along the distal transverse colon concerning for colon cancer. No lesion suspicious for metastatic disease. 2. Small right and [id number] left pleural effusions with associated atelectasis in the bilateral lower lobes, left greater than right. 3. Cardiomegaly enlargement of the central pulmonary arteries consistent with pulmonary arterial hypertension. 4. Moderate-sized bilateral fat-containing inguinal hernias. 5. Minimal nonspecific ascites in the deep pelvis. Chest X-Ray 12/01/24 09:42 Impression: Right-sided PICC line in satisfactory position. Small left pleural effusion with probable left basilar pulmonary edema/atelectasis. Correlate clinically for pneumonia. Labs Labs: Laboratory Results - last 24 hr 12/03/24 12/03/24 12/03/24 05:57 07:59 11:43 Hgb Hct Sodium Potassium Chloride Carbon Dioxide Anion Gap BUN Creatinine Estim Creat Clear Calc Estimated GFR Glucose POC Capillary Glucose 111 H 102 Calcium Phosphorus Triglycerides Blood Type B Positive Antibody Screen Negative Crossmatch See Detail 12/03/24 12/03/24 12/03/24 17:27 19:50 21:17 Hgb 8.7 L Hct 28.2 L Sodium Potassium Chloride Carbon Dioxide Anion Gap BUN Creatinine Estim Creat Clear Calc Estimated GFR Glucose POC Capillary Glucose 102 124 H Calcium Phosphorus Triglycerides Blood Type Antibody Screen Crossmatch 12/03/24 12/04/24 12/04/24 21:19 05:14 05:17 Hgb Hct Sodium 133 L Potassium 3.9 Chloride 101 Carbon Dioxide 32 H Anion Gap 0 L BUN 15 Creatinine 0.67 L Estim Creat Clear Calc 83 Estimated GFR > 60 Glucose 114 H POC Capillary Glucose 123 H Calcium 7.5 L Phosphorus 3.5 Triglycerides 92 Blood Type Antibody Screen Crossmatch Quality VTE Prophylaxis VTE prophylaxis: mechanical ordered
[2024-12-04 08:29] LABS: Glucose Point of Care 123 mg/dl (65-105)
[2024-12-04] MEDS: SOTALOL HCL 40 MG TABLET 120 MG PO ×2 (09:11→21:32)
[2024-12-04] MEDS: FUROSEMIDE 40 MG TABLET PO (09:12)
[2024-12-04] MEDS: GABAPENTIN 300 MG CAPSULE PO ×3 (09:12→16:07)
[2024-12-04] MEDS: LOSARTAN POTASSIUM 50 MG TABLET PO ×2 (09:12→21:32)
[2024-12-04] MEDS: FERROUS SULFATE 325 MG TABLET DR BY MOUTH (09:12)
[2024-12-04] MEDS: PANTOPRAZOLE 40 MG TABLET PO (09:12)
--- NOTE | 2024-12-04 09:29 | PM.PNGS ---
Progress Note: A&P Assessment and Plan (1) Colonic mass: Code(s): K63.89 - Other specified diseases of intestine Status: Acute Assessment and Plan: plan for OR tomorrow for colectomy (2) Protein calorie malnutrition: Code(s): E46 - Unspecified protein-calorie malnutrition Status: Acute Assessment and Plan: cont to encourage po (supplements) and TPN Subjective Subjective Date/Time Seen: 12/04/24 09:29 Interval history: feels better this morning, appropriate response to transfusion (2 u PRBCs) yesterday Review of Systems Review of Systems: All systems reviewed & are unremarkable except as noted in HPI and below Exam Const: General: cooperative, comfortable, no acute distress, ill appearing and malnourished Resp: Auscultation: clear to auscultation bilaterally Cardio: Rate: regular rate Rhythm: regular rhythm GI: Inspection: normal to inspection and distended GI Palp: No abdominal tenderness and Yes Soft to palpation Objective Data Vital Signs Vital Signs: Vital Signs - 24 hr 12/03/24 10:26 12/03/24 11:45 12/03/24 12:00 Temperature 36.8 C 36.8 C Pulse Rate 76 75 76 Respiratory Rate 18 18 Blood Pressure 117/67 117/58 L Pulse Oximetry 96 95 Oxygen Delivery 12/03/24 12:24 12/03/24 12:42 12/03/24 13:42 Temperature 36.6 C 36.5 C 36.4 C L Pulse Rate 76 80 74 Respiratory Rate 18 18 16 Blood Pressure 134/72 120/66 108/52 L Pulse Oximetry 97 95 98 Oxygen Delivery 12/03/24 14:42 12/03/24 15:42 12/03/24 16:00 Temperature 36.8 C 36.9 C Pulse Rate 72 75 76 Respiratory Rate 16 16 Blood Pressure 112/61 128/67 Pulse Oximetry 98 99 Oxygen Delivery 12/03/24 16:09 12/03/24 20:00 12/03/24 20:05 Temperature 36.9 C 36.9 C Pulse Rate 75 76 75 Respiratory Rate 16 20 Blood Pressure 140/70 133/64 Pulse Oximetry 99 95 Oxygen Delivery 12/03/24 20:46 12/03/24 21:20 12/03/24 21:28 Temperature Pulse Rate 59 L 76 Respiratory Rate Blood Pressure Pulse Oximetry 94 Oxygen Delivery Room Air Room Air 12/04/24 00:00 12/04/24 04:14 12/04/24 06:00 Temperature 36.8 C Pulse Rate 76 76 75 Respiratory Rate 18 Blood Pressure 147/70 H Pulse Oximetry 94 Oxygen Delivery 12/04/24 08:00 12/04/24 08:00 12/04/24 09:11 Temperature Pulse Rate 76 76 Respiratory Rate Blood Pressure Pulse Oximetry Oxygen Delivery Room Air Intake/Output Intake/Output: Intake & Output 12/01/24 12/02/24 12/03/24 12/04/24 23:59 23:59 23:59 23:59 Intake Total 1354 3087.3 4128.2 250 Output Total 850 2350 3450 750 Balance 504 737.3 678.2 -500 Meds/Results Medications: Active Medications Generic Name Dose Route Start Last Admin Trade Name Freq PRN Reason Stop Dose Admin Acetaminophen 650 mg 11/28/24 20:05 12/03/24 03:38 Acetaminophen 325 Mg Tablet PO 650 mg Q4H PRN Administration Mild Pain (1-3) or Fever Atorvastatin Calcium 40 mg 11/29/24 21:00 12/03/24 21:20 Atorvastatin 40 Mg Tablet PO 40 mg HS BRE Administration Dextrose 12.5 gm 11/29/24 02:22 Dextrose 50% 25 Gm/50 Ml Syringe IV PUSH PRN PRN Hypoglycemia Protocol Ferrous Sulfate 325 mg 11/30/24 09:00 12/04/24 09:12 Ferrous Sulfate [address] BY MOUTH 325 mg DAILY BRE Administration Furosemide 40 mg 11/30/24 09:00 12/04/24 09:12 Furosemide 40 Mg Tablet PO 40 mg DAILY BRE Administration Gabapentin 300 mg 11/29/24 13:00 12/04/24 09:12 Gabapentin 300 Mg Capsule PO 300 mg TID BRE Administration Glucose 15 gm 11/29/24 02:22 Glucose Oral Gel 15 Gm Of Glucse In 37.5 Gm Tube PO PRN PRN Hypoglycemia Protocol Dextrose 1,000 mls @ 100 mls/hr 11/29/24 02:22 Dextrose 5% 1,000 Ml IVPB PRN PRN Hypoglycemia Protocol Dextrose 1,000 mls @ 50 mls/hr 12/01/24 08:14 Dextrose 10% IV CONT .Q20H PRN if PN is interrupted Multivitamins 1.25 ml/ 1,002.5 mls @ 40 mls/hr 12/01/24 12:00 12/03/24 12:39 Multivitamins 1.25 ml/ Amino IV CONT 40 mls/hr Acids/Electrolytes/Dextrose .Q24H BRE Administration Protocol Fat Emulsion Intravenous 250 mls @ 20.833 mls/hr 12/01/24 12:00 12/04/24 00:26 Lipids 20% IVPB Infused Q24H BRE Infusion Ceftriaxone Sodium 1 gm in 50 mls @ 100 mls/hr 12/01/24 14:00 12/03/24 16:26 Rocephin 1 Gm/Ns 50 Ml IVPB 12/04/24 23:59 Infused Q24H BRE Infusion Insulin Aspart 1 - 2 units 11/29/24 21:00 12/03/24 21:21 Insulin Aspart (*Bkc) 100 Units/Ml SUB-Q Not Given HS BRE Protocol Insulin Aspart 2 - 5 units 11/29/24 08:00 12/04/24 09:11 Insulin Aspart (*Bkc) 100 Units/Ml SUB-Q Not Given TIDWM BRE Protocol Losartan Potassium 50 mg 11/29/24 21:00 12/04/24 09:12 Losartan Potassium 50 Mg Tablet PO 50 mg Q12H BRE Administration Melatonin 5 mg 11/29/24 21:00 12/03/24 21:20 Melatonin 5 Mg Tablet PO 5 mg HS BRE Administration Ondansetron HCl 4 mg 11/28/24 20:05 Ondansetron Inj 4 Mg/2 Ml Vial IV PUSH Q4H PRN Nausea Pantoprazole Sodium 40 mg 11/30/24 09:00 12/04/24 09:12 Pantoprazole 40 Mg Tablet PO 40 mg QAM BRE Administration Sodium Chloride 10 ml 12/01/24 14:00 12/04/24 05:35 Central Line Flush IV PUSH 10 ml Q8HR BRE Administration Sodium Chloride 10 ml 12/01/24 09:42 Central Line Flush IV PUSH PRN PRN with TPN bag changes Sodium Chloride 20 ml 12/01/24 09:42 12/04/24 05:36 Central Line Flush IV PUSH 20 ml PRN PRN Administration after blood draws Sotalol HCl 120 mg 11/29/24 12:00 12/04/24 09:11 Sotalol Hcl 40 Mg Tablet PO 120 mg Q12HR BRE Administration Radiology Results: ITS Impressions Chest/Abdomen/Pelvis CT 11/30/24 13:27 IMPRESSION: 1. Prominent wall thickening along the distal transverse colon concerning for colon cancer. No lesion suspicious for metastatic disease. 2. Small right and [id number] left pleural effusions with associated atelectasis in the bilateral lower lobes, left greater than right. 3. Cardiomegaly enlargement of the central pulmonary arteries consistent with pulmonary arterial hypertension. 4. Moderate-sized bilateral fat-containing inguinal hernias. 5. Minimal nonspecific ascites in the deep pelvis. Chest X-Ray 12/01/24 09:42 Impression: Right-sided PICC line in satisfactory position. Small left pleural effusion with probable left basilar pulmonary edema/atelectasis. Correlate clinically for pneumonia. Labs Labs: Laboratory Results - last 24 hr 12/03/24 12/03/24 12/03/24 05:57 11:43 17:27 Hgb Hct Sodium Potassium Chloride Carbon Dioxide Anion Gap BUN Creatinine Estim Creat Clear Calc Estimated GFR Glucose POC Capillary Glucose 102 102 Calcium Phosphorus Triglycerides Blood Type B Positive Antibody Screen Negative Crossmatch See Detail 12/03/24 12/03/24 12/03/24 19:50 21:17 21:19 Hgb 8.7 L Hct 28.2 L Sodium Potassium Chloride Carbon Dioxide Anion Gap BUN Creatinine Estim Creat Clear Calc Estimated GFR Glucose POC Capillary Glucose 124 H 123 H Calcium Phosphorus Triglycerides Blood Type Antibody Screen Crossmatch 12/04/24 12/04/24 12/04/24 05:14 05:17 08:24 Hgb Hct Sodium 133 L Potassium 3.9 Chloride 101 Carbon Dioxide 32 H Anion Gap 0 L BUN 15 Creatinine 0.67 L Estim Creat Clear Calc 83 Estimated GFR > 60 Glucose 114 H POC Capillary Glucose 123 H Calcium 7.5 L Phosphorus 3.5 Triglycerides 92 Blood Type Antibody Screen Crossmatch
[2024-12-04] MEDS: FAT EMULSIONS IV 20% 250 ML 20.8 ML IVPB (11:15)
[2024-12-04 12:00] LABS: Glucose Point of Care 124 mg/dl (65-105)
--- NOTE | 2024-12-04 13:05 | WPDONCPN ---
Progress Note: A&P Assessment and Plan (1) Colonic mass: Code(s): K63.89 - Other specified diseases of intestine Status: Acute Assessment and Plan: Patient admitted for anemia with iron deficiency noted in labs done at admission. Patient underwent colonoscopy on 11/30/2024 and was found to have a completely obstructive fungating mass in the ascending colon measuring 3-4 cm. Pathology of the mass is reported as necrotic specimen with some high-grade dysplasia. A comment is made by pathologist that this is no doubt an invasive malignancy and the specimen is only on from the top of the tumor. CT scan of the chest, abdomen, and pelvis performed 11/30/2024 showed thickening along the distal transverse colon concerning for cancer. There was no metastatic disease. There were small right and moderate left pleural effusion with cardiomegaly. At this time issue seems to be localized colon cancer and with pending obstruction he will need a surgical intervention sooner than later. I explained this to the patient and his at bedside General surgery has seen patient today and recommended TPN to raise the nutrition level. Patient is also taking Ensure 3 times a day. Plan is for surgery on Thursday12/05/2024. (2) Iron deficiency anemia: Code(s): D50.9 - Iron deficiency anemia, unspecified Status: Acute Assessment and Plan: Patient received one unit of PRBC yesterday. I have also entered orders for IV iron sucrose 400 mg to be given today to prepare him for the surgery as there would be expected blood loss. Subjective Date/time seen: 12/04/24 13:05 Interval history: Patient resting well today without any overnight events. He is aware that he is going to get colon surgery tomorrow. Review of Systems Review of Systems He denies any chest pain, shortness of breath, cough, hemoptysis. He denies any abdominal pain. Patient reports that he has been passing bowels okay without any pain although he reports some diarrhea. He denies any hematochezia or melena. Patient states that he has increased his Ensure intake to 3 times a day while hospitalized. Rest of the 12 point review of system is negative Exam Narrative: General: chronic illl appearing, elderly male in no acute distress HEENT: normocephalic, atraumatic. Mucous membranes moist. EOMI, PERRLA, bilateral sclera anicteric, no conjunctival injection. Neck supple without JVD, lymphadenopathy, or bruit. Respiratory: clear to ascultation bilaterally. No rales/rhonic/wheezes. Cardiovascular: Regular rate and rhythm, no m/g/r Abdomen: Soft, round, no pulsatile masses, nondistended and nontender. No rebound, no guarding. No CVA tenderness, no hepatosplenomegaly. Bowel sounds present to all four quadrants. Extremities: Patient has 2+ edema in bilateral lower extremity Neuro: Alert and orientated x 4. PERRLA. Cranial nerves 2-12 intact without focal deficit. Skin: Warm, dry, and intact, without rash, erythema, or lesion. Psych: pleasant, cooperative, normal speech, normal affect, no hallucinations, no dysarthia Objective Data Vital Signs Vital Signs: Vital Signs - 24 hr 12/03/24 13:42 12/03/24 14:42 12/03/24 15:42 Temperature 36.4 C L 36.8 C 36.9 C Pulse Rate 74 72 75 Respiratory Rate 16 16 16 Blood Pressure 108/52 L 112/61 128/67 Pulse Oximetry 98 98 99 Oxygen Delivery 12/03/24 16:00 12/03/24 16:09 12/03/24 20:00 Temperature 36.9 C Pulse Rate 76 75 76 Respiratory Rate 16 Blood Pressure 140/70 Pulse Oximetry 99 Oxygen Delivery 12/03/24 20:05 12/03/24 20:46 12/03/24 21:20 Temperature 36.9 C Pulse Rate 75 59 L 76 Respiratory Rate 20 Blood Pressure 133/64 Pulse Oximetry 95 94 Oxygen Delivery Room Air 12/03/24 21:28 12/04/24 00:00 12/04/24 04:14 Temperature Pulse Rate 76 76 Respiratory Rate Blood Pressure Pulse Oximetry Oxygen Delivery Room Air 12/04/24 06:00 12/04/24 08:00 12/04/24 08:00 Temperature 36.8 C Pulse Rate 75 76 Respiratory Rate 18 Blood Pressure 147/70 H Pulse Oximetry 94 Oxygen Delivery Room Air 12/04/24 09:11 12/04/24 12:00 Temperature Pulse Rate 76 76 Respiratory Rate Blood Pressure Pulse Oximetry Oxygen Delivery Intake/Output Intake/Output: Intake & Output 12/01/24 12/02/24 12/03/24 12/04/24 23:59 23:59 23:59 23:59 Intake Total 1354 3087.3 4128.2 370 Output Total 850 2350 3450 750 Balance 504 737.3 678.2 380 Meds/Results Medications: Active Medications Generic Name Dose Route Start Last Admin Trade Name Freq PRN Reason Stop Dose Admin Acetaminophen 650 mg 11/28/24 20:05 12/03/24 03:38 Acetaminophen 325 Mg Tablet PO 650 mg Q4H PRN Administration Mild Pain (1-3) or Fever Atorvastatin Calcium 40 mg 11/29/24 21:00 12/03/24 21:20 Atorvastatin 40 Mg Tablet PO 40 mg HS BRE Administration Dextrose 12.5 gm 11/29/24 02:22 Dextrose 50% 25 Gm/50 Ml Syringe IV PUSH PRN PRN Hypoglycemia Protocol Ferrous Sulfate 325 mg 11/30/24 09:00 12/04/24 09:12 Ferrous Sulfate [address] BY MOUTH 325 mg DAILY BRE Administration Furosemide 40 mg 11/30/24 09:00 12/04/24 09:12 Furosemide 40 Mg Tablet PO 40 mg DAILY BRE Administration Gabapentin 300 mg 11/29/24 13:00 12/04/24 12:24 Gabapentin 300 Mg Capsule PO 300 mg TID BRE Administration Glucose 15 gm 11/29/24 02:22 Glucose Oral Gel 15 Gm Of Glucse In 37.5 Gm Tube PO PRN PRN Hypoglycemia Protocol Dextrose 1,000 mls @ 100 mls/hr 11/29/24 02:22 Dextrose 5% 1,000 Ml IVPB PRN PRN Hypoglycemia Protocol Dextrose 1,000 mls @ 50 mls/hr 12/01/24 08:14 Dextrose 10% IV CONT .Q20H PRN if PN is interrupted Multivitamins 1.25 ml/ 1,002.5 mls @ 40 mls/hr 12/01/24 12:00 12/03/24 12:39 Multivitamins 1.25 ml/ Amino IV CONT 40 mls/hr Acids/Electrolytes/Dextrose .Q24H BRE Administration Protocol Fat Emulsion Intravenous 250 mls @ 20.833 mls/hr 12/01/24 12:00 12/04/24 11:15 Lipids 20% IVPB 20.8 mls/hr Q24H BRE Administration Ceftriaxone Sodium 1 gm in 50 mls @ 100 mls/hr 12/01/24 14:00 12/03/24 16:26 Rocephin 1 Gm/Ns 50 Ml IVPB 12/04/24 23:59 Infused Q24H BRE Infusion Insulin Aspart 1 - 2 units 11/29/24 21:00 12/03/24 21:21 Insulin Aspart (*Bkc) 100 Units/Ml SUB-Q Not Given HS [facility] Protocol Insulin Aspart 2 - 5 units 11/29/24 08:00 12/04/24 12:24 Insulin Aspart (*Bkc) 100 Units/Ml SUB-Q Not Given TIDWM [facility] Protocol Losartan Potassium 50 mg 11/29/24 21:00 12/04/24 09:12 Losartan Potassium 50 Mg Tablet PO 50 mg Q12H BRE Administration Melatonin 5 mg 11/29/24 21:00 12/03/24 21:20 Melatonin 5 Mg Tablet PO 5 mg HS BRE Administration Ondansetron HCl 4 mg 11/28/24 20:05 Ondansetron Inj 4 Mg/2 Ml Vial IV PUSH Q4H PRN Nausea Pantoprazole Sodium 40 mg 11/30/24 09:00 12/04/24 09:12 Pantoprazole 40 Mg Tablet PO 40 mg QAM BRE Administration Sodium Chloride 10 ml 12/01/24 14:00 12/04/24 05:35 Central Line Flush IV PUSH 10 ml Q8HR BRE Administration Sodium Chloride 10 ml 12/01/24 09:42 Central Line Flush IV PUSH PRN PRN with TPN bag changes Sodium Chloride 20 ml 12/01/24 09:42 12/04/24 05:36 Central Line Flush IV PUSH 20 ml PRN PRN Administration after blood draws Sotalol HCl 120 mg 11/29/24 12:00 12/04/24 09:11 Sotalol Hcl 40 Mg Tablet PO 120 mg Q12HR BRE Administration Radiology Results: ITS Impressions Chest/Abdomen/Pelvis CT 11/30/24 13:27 IMPRESSION: 1. Prominent wall thickening along the distal transverse colon concerning for colon cancer. No lesion suspicious for metastatic disease. 2. Small right and [id number] left pleural effusions with associated atelectasis in the bilateral lower lobes, left greater than right. 3. Cardiomegaly enlargement of the central pulmonary arteries consistent with pulmonary arterial hypertension. 4. Moderate-sized bilateral fat-containing inguinal hernias. 5. Minimal nonspecific ascites in the deep pelvis. Chest X-Ray 12/01/24 09:42 Impression: Right-sided PICC line in satisfactory position. Small left pleural effusion with probable left basilar pulmonary edema/atelectasis. Correlate clinically for pneumonia. Labs Labs: Laboratory Results - last 24 hr 12/03/24 12/03/24 12/03/24 05:57 17:27 19:50 Hgb Hct Sodium Potassium Chloride Carbon Dioxide Anion Gap BUN Creatinine Estim Creat Clear Calc Estimated GFR Glucose POC Capillary Glucose 102 124 H Calcium Phosphorus Triglycerides Crossmatch See Detail 12/03/24 12/03/24 12/04/24 21:17 21:19 05:14 Hgb 8.7 L Hct 28.2 L Sodium Potassium Chloride Carbon Dioxide Anion Gap BUN Creatinine Estim Creat Clear Calc Estimated GFR Glucose POC Capillary Glucose 123 H Calcium Phosphorus Triglycerides 92 Crossmatch 12/04/24 12/04/24 12/04/24 05:17 08:24 11:58 Hgb Hct Sodium 133 L Potassium 3.9 Chloride 101 Carbon Dioxide 32 H Anion Gap 0 L BUN 15 Creatinine 0.67 L Estim Creat Clear Calc 83 Estimated GFR > 60 Glucose 114 H POC Capillary Glucose 123 H 124 H Calcium 7.5 L Phosphorus 3.5 Triglycerides Crossmatch
[2024-12-04] MEDS: IRON SUCROSE COMPLEX 400 MG in SODIUM CHLORIDE 0.9% IV 250 ML 108 MG IVPB (13:59)
[2024-12-04] MEDS: AMINO ACIDS 5%/D15W/E-LYTES/CA 1,000 ML with MULTIVITAMINS-12 INJ VIAL 1 1.25 ML, MULTI... 40 ML IV CONT (14:03)
[2024-12-04 15:53] LABS: Alanine Aminotransferase 16 U/L (6-50); Albumin Level 2.6 g/dL (3.5-5.1); Alkaline Phosphatase 66 U/L (38-126); Anion Gap 4 mmol/L (4-12); Aspartate Amino Transferase 21 U/L (17-59); Bilirubin,Total 0.7 mg/dL (0.2-1.3); Blood Urea Nitrogen 15 mg/dL (9-20); Calcium 7.5 mg/dL (8.4-10.2); Carbon Dioxide 27 mmol/L (22-30); Chloride 100 mmol/L (98-107); Estimated CRCL calculation 92 ml/min; Estimated Glomerular Filt Rate > 60; Glucose 142 mg/dL (65-110); Sodium 131 mmol/L (137-145)
[2024-12-04] MEDS: ACETAMINOPHEN 325 MG TABLET 650 MG PO (16:00)
[2024-12-04 16:27] LABS: Glucose Point of Care 128 mg/dl (65-105)
[2024-12-04] MEDS: ATORVASTATIN 40 MG TABLET PO (21:32)
[2024-12-04] MEDS: MELATONIN 5 MG TABLET PO (21:32)
[2024-12-04 22:43] LABS: Glucose Point of Care 113 mg/dl (65-105)
[2024-12-04 23:47] LABS: Add Urine Microscopic? NO; Appearance Urine Clear (Clear); Bilirubin Urine Negative (Negative); Blood Urine Negative (Negative); Color Urine Yellow (Yellow); Glucose Urine UA Negative (Negative); Ketones Urine Negative (Negative); Leukocyte Esterase Ur Negative LEU/UL (Negative); Nitrate Urine Negative (Negative); Protein Urine Negative (Negative); Specific Grav Ur 1.004 (1.001-1.035); Urobilinogen Urine 0.2 mg/dL (<2.0)
[2024-12-05] VITALS (10 sets, daily range): BP systolic 122–132; BP diastolic 56–70; PULSE 75–79; RESP 16–18; TEMP 36.6–37.4; O2SAT 96–98
[2024-12-05] MEDS: PIPERACILLIN/TAZ 4.5G/NS 100ML 4.5 GM/100 ML BAG IVPB ×5 (01:54→23:32)
[2024-12-05] MEDS: VANCOMYCIN 2,000 MG/NS 500 ML 2,000 MG/500 ML BAG 250 MG IVPB (01:54)
[2024-12-05 02:55] LABS: Influenza A QL RT-PCR Negative (Negative); Influenza B QL RT-PCR Negative (Negative); RSV RNA, RT-PCR Negative (Negative); SARS-CoV-2 RNA PCR Negative (Negative)
[2024-12-05 03:04] LABS: Basophils Absolute Auto 0.1 K/mm3 (0.0-0.1); Basophils Percent Auto 0.6 % (0.2-1.2); Eosinophils Absolute Auto 0.1 K/mm3 (0-0.3); Eosinophils Percent Auto 0.9 % (0-4.4); Hematocrit 33.9 % (42.0-52.0); Hemoglobin 10.1 g/dL (14.0-18.0); Immature Granulocyte Absolute 0.02 K/mm3 (0.00-0.031); Immature Granulocyte Percent A 0.2 % (0-0.5); Lymphocytes Absolute Auto 0.77 K/mm3 (0.9-3.2); Lymphocytes Percent Auto 9.6 % (18.3-44.2); Mean Corpuscular HGB Conc 29.8 g/dl (32-36); Mean Corpuscular Hemoglobin 27.1 pg (26-34); Mean Corpuscular Volume 90.9 fl (80-100); Mean Platelet Volume 9.7 fl (7.4-10.4); Monocytes Absolute Auto 0.7 K/mm3 (0.1-0.6); Monocytes Percent Auto 8.8 % (2.6-8.5); Neutrophils Absolute Auto 6.4 K/mm3 (1.3-6.7); Neutrophils Percent Auto 79.9 % (45.5-73.1); Platelet Count Result 168 k/mm3 (150-375); Red Blood Count 3.73 M/mm3 (4.6-6.20); Red Cell Distribution Width 15.1 % (11.5-14.5); White Blood Count 8.1 K/mm3 (4.5-10.0)
[2024-12-05 03:16] LABS: INR 1.5; Prothrombin Time 18.2 Seconds (11.1-14.7)
[2024-12-05 03:17] LABS: Partial Thromboplastin Time 42.9 Seconds (22.3-36.8)
--- NOTE | 2024-12-05 03:17 | PM.EVENT ---
Event Note Event Note Event Note: The patient had fever earlier in the day. Blood cultures had been ordered. UA was obtained and was completely normal. Chest x-ray had been obtained earlier in the evening. Demonstrated bibasilar airspace disease concerning for pneumonia although CT from the did demonstrate findings of pleural effusions with associated atelectasis left greater than right. Patient has not developed any overt respiratory symptoms to suggest pneumonia. But given persistent fever patient may have pneumonia verses bacteremia. Given his large colon mass patient could be at high risk for anaerobic and Gram-negative bacteremia. Subsequently the patient been started on Zosyn and vancomycin to cover for both possible healthcare associated pneumonia and or secondary bacteremia.
[2024-12-05 03:34] LABS: Procalcitonin 0.1 ng/mL
[2024-12-05 03:36] LABS: Platelet Estimate Adequate (Adequate)
[2024-12-05 03:37] LABS: Anisocytosis 1+
[2024-12-05 03:38] LABS: Ovalocytes 1+; Schistocytes None Seen
[2024-12-05 03:43] LABS: Alanine Aminotransferase 15 U/L (6-50); Albumin Level 2.5 g/dL (3.5-5.1); Alkaline Phosphatase 65 U/L (38-126); Anion Gap 4 mmol/L (4-12); Aspartate Amino Transferase 20 U/L (17-59); Bilirubin,Total 0.6 mg/dL (0.2-1.3); Blood Urea Nitrogen 12 mg/dL (9-20); Calcium 7.5 mg/dL (8.4-10.2); Carbon Dioxide 26 mmol/L (22-30); Chloride 103 mmol/L (98-107); Estimated CRCL calculation 97 ml/min; Estimated Glomerular Filt Rate > 60; Glucose 110 mg/dL (65-110); Magnesium 2.2 mg/dL (1.6-2.3); Phosphorus 3.2 mg/dL (2.5-4.5); Potassium 4.1 mmol/L (3.4-5.0); Sodium 133 mmol/L (137-145)
[2024-12-05 03:52] LABS: Transferrin 100 mg/dL (206-381)
[2024-12-05 05:41] LABS: Glucose Point of Care 117 mg/dl (65-105)
[2024-12-05 07:21] LABS: MRSA (PCR) NOT DETECTED (NOT DETECTE)
--- NOTE | 2024-12-05 07:41 | P.PNIM_ITS ---
Progress Note: A&P Assessment and Plan (1) Colonic mass: Code(s): K63.89 - Other specified diseases of intestine Status: Acute Assessment and Plan: * Colonoscopy 11/30: Completely-obstructing circumferential, fungating, friable, infiltrative, malignant appearing mass observed in ascending colon, approx 3- 4cm. Multiple biopsies taken * GI, Gen Surg, Heme/Onc following * CEA = 7.8 * PICC Line established, to start TPN for nutrition boost and to increase Albumin * Surgical resection through Gen Surg for colonic mass, tentatively scheduled for early this week * TPN and Ensure for nutrition supplementation * Hold on surgery d/t HAP/Bacteremia rule out (2) Anemia: Qualifiers: Anemia type: iron deficiency Iron deficiency anemia type: unspecified iron deficiency Qualified Code(s): D50.9 - Iron deficiency anemia, unspecified Code(s): D64.9 - Anemia, unspecified Status: Acute Assessment and Plan: * 1 RBC 11/29 * Telemetry monitoring * Anemia workup, unable do iron panel due to transfusion * Colonoscopy and EGD yesterday, see above * Stable * Likely related to colonic mass * Hgb 6.4 12/03: Transfused 2 units PRBC * Stable, Hgb 10.1 (3) Fever: Code(s): R50.9 - Fever, unspecified Status: Acute Assessment and Plan: * Spiked fever of 102.4F on 12/04 * UA wnl, BC pending * CXR 12/04: bibasilar airspace disease concerning for pneumonia * Benign physical exam, no SOB, leukocytosis, or hypoxia * Started on Vanc + Zosyn, d/c Vanc as nasal MRSA (-) * Monitor BCs and WBC (4) Acute UTI: Code(s): N39.0 - Urinary tract infection, site not specified Status: Acute Assessment and Plan: * Could be a factor in weakness * Culture showed Klebsiella growth with Rocephin susceptibility * Rocephin completed Resolved (5) HTN (hypertension): Code(s): I10 - Essential (primary) hypertension Status: Acute Assessment and Plan: * Continue cozaar * stable (6) Afib: Code(s): I48.91 - Unspecified atrial fibrillation Status: Acute Assessment and Plan: * Continue sotalol * stable (7) Diabetes: Code(s): E11.9 - Type 2 diabetes mellitus without complications Status: Acute Assessment and Plan: * Hold metformin * Diabetic diet * A Accu-Cheks a.c. HS * SSI (8) Weakness: Code(s): R53.1 - Weakness Status: Acute Assessment and Plan: * PT and OT * Ensure t.i.d. * PICC line inserted on 12/01 * TPN for further supplementation (9) Edema: Code(s): R60.9 - Edema, unspecified Status: Acute Assessment and Plan: * Continue IV Lasix * Request outside records Time Spent With Patient Time: Subjective Date/time seen: 12/05/24 07:41 Interval history: 79-year-old male past history of history of CABG and pacemaker, atrial fibrillation, GERD, high cholesterol on Lasix presents the hospital with complaints of swelling of hands and feet and not being able to walk. 12/05/2024 Patient spiked a fever last night at 102.4, repeat CXR ordered, along with blood cultures and UA (normal). No respiratory symptoms but CXR showed bibasilar airspace disease concern for pneumonia, so will empirically treat with Zosyn+Vanc for both HAP +/- bacteremia. Will d/c Vanc as nasal mrsa (-). Review of Systems Review of Systems: 12 systems were reviewed and are negativ e except for as per HPI. Exam Narrative: General: chronic illl appearing, appears older than stated age. HEENT: normocephalic, atraumatic. Mucous membranes moist. EOMI, PERRLA, bilateral sclera anicteric, no conjunctival injection. Neck supple without JVD, lymphadenopathy, or bruit. Respiratory: clear to ascultation bilaterally. No rales/rhonic/wheezes. Cardiovascular: Regular rate and rhythm, normal S1-S2 upon ascultation. No murmurs, rubs, or clicks. PMI is nondisplaced, capillary refill less than 3 se cond. Abdomen: Soft, round, no pulsatile masses, nondistended and nontender. No rebound, no guarding. No CVA tenderness, no hepatosplenomegaly. Bowel sounds present to all four quadrants. No high pitch or tinkling sounds, resonant to percussion. Extremities: No cyanosis, clubbing, or edema present. Pulses are palpable 2/2. Active ROM to all four extremities. Neuro: Alert and orientated x 4. PERRLA. Cranial nerves 2-12 intact without focal deficit. Skin: Warm, dry, and intact, without rash, erythema, or lesion. Psych: pleasant, cooperative, normal speech, normal affect, no hallucinations, no dysarthia Objective Data Vital Signs Vital Signs: Vital Signs - 24 hr 12/04/24 08:00 12/04/24 08:00 12/04/24 09:11 Temperature Pulse Rate 76 76 Respiratory Rate Blood Pressure Pulse Oximetry Oxygen Delivery Room Air 12/04/24 12:00 12/04/24 14:34 12/04/24 15:59 Temperature 99.2 F 102.4 F H Pulse Rate 76 75 Respiratory Rate 32 H 22 H Blood Pressure 135/62 Pulse Oximetry 93 Oxygen Delivery 12/04/24 16:00 12/04/24 16:00 12/04/24 16:57 Temperature 102.4 F H 101.8 F H Pulse Rate 77 Respiratory Rate Blood Pressure Pulse Oximetry Oxygen Delivery 12/04/24 17:00 12/04/24 18:44 12/04/24 19:52 Temperature 101.8 F H 99.3 F 99.7 F H Pulse Rate 76 Respiratory Rate 16 Blood Pressure 126/68 Pulse Oximetry 92 Oxygen Delivery 12/04/24 20:00 12/04/24 20:00 12/05/24 00:00 Temperature Pulse Rate 76 76 Respiratory Rate Blood Pressure Pulse Oximetry Oxygen Delivery Room Air 12/05/24 04:00 12/05/24 04:43 Temperature 99.3 F Pulse Rate 76 75 Respiratory Rate 18 Blood Pressure 125/70 Pulse Oximetry 98 Oxygen Delivery Intake/Output Intake/Output: Intake & Output 12/02/24 12/03/24 12/04/24 12/05/24 23:59 23:59 23:59 23:59 Intake Total 3087.3 4128.2 2182.5 50 Output Total 2350 3450 1350 1400 Balance 737.3 678.2 832.5 -1350 Meds/Results Medications: Active Medications Generic Name Dose Route Start Last Admin Trade Name Freq PRN Reason Stop Dose Admin Acetaminophen 650 mg 11/28/24 20:05 12/04/24 16:00 Acetaminophen 325 Mg Tablet PO 650 mg Q4H PRN Administration Mild Pain (1-3) or Fever Atorvastatin Calcium 40 mg 11/29/24 21:00 12/04/24 21:32 Atorvastatin 40 Mg Tablet PO 40 mg HS BRE Administration Dextrose 12.5 gm 11/29/24 02:22 Dextrose 50% 25 Gm/50 Ml Syringe IV PUSH PRN PRN Hypoglycemia Protocol Ferrous Sulfate 325 mg 11/30/24 09:00 12/04/24 09:12 Ferrous Sulfate [address] BY MOUTH 325 mg DAILY BRE Administration Furosemide 40 mg 11/30/24 09:00 12/04/24 09:12 Furosemide 40 Mg Tablet PO 40 mg DAILY BRE Administration Gabapentin 300 mg 11/29/24 13:00 12/04/24 16:07 Gabapentin 300 Mg Capsule PO 300 mg TID BRE Administration Glucose 15 gm 11/29/24 02:22 Glucose Oral Gel 15 Gm Of Glucse In 37.5 Gm Tube PO PRN PRN Hypoglycemia Protocol Dextrose 1,000 mls @ 100 mls/hr 11/29/24 02:22 Dextrose 5% 1,000 Ml IVPB PRN PRN Hypoglycemia Protocol Dextrose 1,000 mls @ 50 mls/hr 12/01/24 08:14 Dextrose 10% IV CONT .Q20H PRN if PN is interrupted Multivitamins 1.25 ml/ 1,002.5 mls @ 40 mls/hr 12/01/24 12:00 12/04/24 14:03 Multivitamins 1.25 ml/ Amino IV CONT 40 mls/hr Acids/Electrolytes/Dextrose .Q24H BRE Administration Protocol Fat Emulsion Intravenous 250 mls @ 20.833 mls/hr 12/01/24 12:00 12/04/24 11:15 Lipids 20% IVPB 20.8 mls/hr Q24H BRE Administration Piperacillin Sod/Tazobactam Sod 4.5 gm in 100 mls @ 200 mls/hr 12/05/24 08:00 Zosyn 4.5 Gm/Ns 100 Ml IVPB Q6HR BRE Vancomycin HCl 1,500 mg in 500 mls @ 250 mls/hr 12/05/24 14:00 Vancomycin 1,500 Mg/Ns 500 Ml IVPB Q12H BRE Insulin Aspart 1 - 2 units 11/29/24 21:00 12/04/24 21:32 Insulin Aspart (*Bkc) 100 Units/Ml SUB-Q Not Given HS [facility] Protocol Insulin Aspart 2 - 5 units 11/29/24 08:00 12/04/24 15:58 Insulin Aspart (*Bkc) 100 Units/Ml SUB-Q Not Given TIDWM [facility] Protocol Losartan Potassium 50 mg 11/29/24 21:00 12/04/24 21:32 Losartan Potassium 50 Mg Tablet PO 50 mg Q12H BRE Administration Melatonin 5 mg 11/29/24 21:00 12/04/24 21:32 Melatonin 5 Mg Tablet PO 5 mg HS BRE Administration Ondansetron HCl 4 mg 11/28/24 20:05 Ondansetron Inj 4 Mg/2 Ml Vial IV PUSH Q4H PRN Nausea Pantoprazole Sodium 40 mg 11/30/24 09:00 12/04/24 09:12 Pantoprazole 40 Mg Tablet PO 40 mg QAM BRE Administration Sodium Chloride 10 ml 12/01/24 14:00 12/04/24 21:32 Central Line Flush IV PUSH 10 ml Q8HR BRE Administration Sodium Chloride 10 ml 12/01/24 09:42 Central Line Flush IV PUSH PRN PRN with TPN bag changes Sodium Chloride 20 ml 12/01/24 09:42 12/04/24 05:36 Central Line Flush IV PUSH 20 ml PRN PRN Administration after blood draws Sotalol HCl 120 mg 11/29/24 12:00 12/04/24 21:32 Sotalol Hcl 40 Mg Tablet PO 120 mg Q12HR BRE Administration Radiology Results: ITS Impressions Chest/Abdomen/Pelvis CT 11/30/24 13:27 IMPRESSION: 1. Prominent wall thickening along the distal transverse colon concerning for colon cancer. No lesion suspicious for metastatic disease. 2. Small right and [id number] left pleural effusions with associated atelectasis in the bilateral lower lobes, left greater than right. 3. Cardiomegaly enlargement of the central pulmonary arteries consistent with pulmonary arterial hypertension. 4. Moderate-sized bilateral fat-containing inguinal hernias. 5. Minimal nonspecific ascites in the deep pelvis. Chest X-Ray 12/04/24 21:13 IMPRESSION: Bilateral airspace disease suggestive of pneumonia versus pulmonary edema. Labs Labs: Laboratory Results - last 24 hr 12/04/24 12/04/24 12/04/24 08:24 11:58 15:26 WBC RBC Hgb Hct MCV MCH MCHC RDW Plt Count MPV Immature Gran % (Auto) Neut % (Auto) Lymph % (Auto) [place] % (Auto) Eos % (Auto) Baso % (Auto) Lymph # (Auto) [place] # (Auto) Eos # (Auto) Baso # (Auto) Abs Immat Gran (auto) Absolute Neuts (auto) Absolute Nucleated RBC Band Neutrophils % Nucleated RBC % Platelet Estimate Anisocytosis Ovalocytes Schistocytes PT INR APTT Sodium 131 L Potassium 4.0 Chloride 100 Carbon Dioxide 27 Anion Gap 4 BUN 15 Creatinine 0.60 L Estim Creat Clear Calc 92 Estimated GFR > 60 Glucose 142 H POC Capillary Glucose 123 H 124 H Lactic Acid Calcium 7.5 L Phosphorus Magnesium Transferrin Total Bilirubin 0.7 AST 21 ALT 16 Alkaline Phosphatase 66 Total Protein 5.0 L Albumin 2.6 L Procalcitonin Urine Color Urine Appearance Urine pH Ur Specific [place] Urine Protein Urine Glucose (UA) Urine Ketones Ur Blood (Man) Urine Nitrate Urine Bilirubin Urine Urobilinogen Leukocyte Esterase Rfl Nasal MRSA (PCR) Influenza A (RT-PCR) Influenza B (RT-PCR) RSV (RT-PCR) SARS-CoV-2 RNA (RT-PCR) 12/04/24 12/04/24 12/04/24 16:25 20:06 23:39 WBC RBC Hgb Hct MCV MCH MCHC RDW Plt Count MPV Immature Gran % (Auto) Neut % (Auto) Lymph % (Auto) [place] % (Auto) Eos % (Auto) Baso % (Auto) Lymph # (Auto) [place] # (Auto) Eos # (Auto) Baso # (Auto) Abs Immat Gran (auto) Absolute Neuts (auto) Absolute Nucleated RBC Band Neutrophils % Nucleated RBC % Platelet Estimate Anisocytosis Ovalocytes Schistocytes PT INR APTT Sodium Potassium Chloride Carbon Dioxide Anion Gap BUN Creatinine Estim Creat Clear Calc Estimated GFR Glucose POC Capillary Glucose 128 H 113 H Lactic Acid Calcium Phosphorus Magnesium Transferrin Total Bilirubin AST ALT Alkaline Phosphatase Total Protein Albumin Procalcitonin Urine Color Yellow Urine Appearance Clear Urine pH 7.0 Ur Specific [place] 1.004 Urine Protein Negative Urine Glucose (UA) Negative Urine Ketones Negative Ur Blood (Man) Negative Urine Nitrate Negative Urine Bilirubin Negative Urine Urobilinogen 0.2 Leukocyte Esterase Rfl Negative Nasal MRSA (PCR) Influenza A (RT-PCR) Influenza B (RT-PCR) RSV (RT-PCR) SARS-CoV-2 RNA (RT-PCR) 12/05/24 12/05/24 12/05/24 02:04 02:58 04:56 WBC 8.1 RBC 3.73 L Hgb 10.1 L Hct 33.9 L MCV 90.9 MCH 27.1 MCHC 29.8 L RDW 15.1 H Plt Count 168 MPV 9.7 Immature Gran % (Auto) 0.2 Neut % (Auto) 79.9 H Lymph % (Auto) 9.6 L [place] % (Auto) 8.8 H Eos % (Auto) 0.9 Baso % (Auto) 0.6 Lymph # (Auto) 0.77 L [place] # (Auto) 0.7 H Eos # (Auto) 0.1 Baso # (Auto) 0.1 Abs Immat Gran (auto) 0.02 Absolute Neuts (auto) 6.4 Absolute Nucleated RBC 0.000 Band Neutrophils % Not Reportable Nucleated RBC % 0.0 Platelet Estimate Adequate Anisocytosis 1+ Ovalocytes 1+ Schistocytes None seen PT 18.2 H INR 1.5 APTT 42.9 H Sodium 133 L Potassium 4.1 Chloride 103 Carbon Dioxide 26 Anion Gap 4 BUN 12 Creatinine 0.56 L Estim Creat Clear Calc 97 Estimated GFR > 60 Glucose 110 POC Capillary Glucose 117 H Lactic Acid 1.0 Calcium 7.5 L Phosphorus 3.2 Magnesium 2.2 Transferrin 100 L Total Bilirubin 0.6 AST 20 ALT 15 Alkaline Phosphatase 65 Total Protein 5.0 L Albumin 2.5 L Procalcitonin 0.1 Urine Color Urine Appearance Urine pH Ur Specific [place] Urine Protein Urine Glucose (UA) Urine Ketones Ur Blood (Man) Urine Nitrate Urine Bilirubin Urine Urobilinogen Leukocyte Esterase Rfl Nasal MRSA (PCR) Influenza A (RT-PCR) Negative Influenza B (RT-PCR) Negative RSV (RT-PCR) Negative SARS-CoV-2 RNA (RT-PCR) Negative 12/05/24 06:07 WBC RBC Hgb Hct MCV MCH MCHC RDW Plt Count MPV Immature Gran % (Auto) Neut % (Auto) Lymph % (Auto) [place] % (Auto) Eos % (Auto) Baso % (Auto) Lymph # (Auto) [place] # (Auto) Eos # (Auto) Baso # (Auto) Abs Immat Gran (auto) Absolute Neuts (auto) Absolute Nucleated RBC Band Neutrophils % Nucleated RBC % Platelet Estimate Anisocytosis Ovalocytes Schistocytes PT INR APTT Sodium Potassium Chloride Carbon Dioxide Anion Gap BUN Creatinine Estim Creat Clear Calc Estimated GFR Glucose POC Capillary Glucose Lactic Acid Calcium Phosphorus Magnesium Transferrin Total Bilirubin AST ALT Alkaline Phosphatase Total Protein Albumin Procalcitonin Urine Color Urine Appearance Urine pH Ur Specific [place] Urine Protein Urine Glucose (UA) Urine Ketones Ur Blood (Man) Urine Nitrate Urine Bilirubin Urine Urobilinogen Leukocyte Esterase Rfl Nasal MRSA (PCR) Not detected Influenza A (RT-PCR) Influenza B (RT-PCR) RSV (RT-PCR) SARS-CoV-2 RNA (RT-PCR) Quality VTE Prophylaxis VTE prophylaxis: mechanical ordered
[2024-12-05] MEDS: CENTRAL LINE FLUSH 10 ML IV PUSH ×3 (07:45→23:33)
[2024-12-05] MEDS: SOTALOL HCL 40 MG TABLET 120 MG PO ×2 (08:27→20:43)
[2024-12-05] MEDS: LOSARTAN POTASSIUM 50 MG TABLET PO ×2 (08:27→20:44)
[2024-12-05] MEDS: FUROSEMIDE 40 MG TABLET PO (08:27)
[2024-12-05] MEDS: PANTOPRAZOLE 40 MG TABLET PO (08:27)
[2024-12-05] MEDS: FERROUS SULFATE 325 MG TABLET DR BY MOUTH (08:27)
[2024-12-05] MEDS: GABAPENTIN 300 MG CAPSULE PO ×3 (08:27→16:25)
--- NOTE | 2024-12-05 10:13 | PCPTNOTE ---
Patient refused treatment this session due to patient not feeling good and patient agitated. Patient reported frustration about his surgery being cancelled.
--- NOTE | 2024-12-05 11:46 | P.PNGS_ITS ---
Progress Note: A&P Assessment and Plan (1) Colonic mass: Code(s): K63.89 - Other specified diseases of intestine <Aliya PoeRUBIO alex - Last Filed: 12/05/24 14:45> Status: Acute <Aliya Concepcionkarsten CONVERTING OPERATOR - Last Filed: 12/05/24 14:45> Assessment and Plan: * Patient developed a fever yesterday of unknown origin. Chest x-ray suggests possible pneumonia. UA negative. Blood cx were drawn and are pending. He was started on broad-spectrum IV antibiotics. We have cancelled his colon resection today and re-evaluate him tomorrow. If he remains afebrile and his blood cultures remain negative without any additional findings, then we may consider proceeding with surgery at the earlier on Thursday. Will continue a clear liquid diet with Ensure supplements today. Continue TPN and repeat labs again tomorrow. <Aliya Vaishali PoeRUBIO alex - Last Filed: 12/05/24 14:45> (2) Protein calorie malnutrition: Code(s): E46 - Unspecified protein-calorie malnutrition <Aliya Poeabi CONVERTING OPERATOR - Last Filed: 12/05/24 14:45> Status: Acute <Aliya Poeabi CONVERTING OPERATOR - Last Filed: 12/05/24 14:45> Assessment and Plan: * Will resume clear liquids and Ensure clear supplements today, continue TPN. Albumin up to 2.5 <Aliya Vaishali Poeabi CONVERTING OPERATOR - Last Filed: 12/05/24 14:45> Assessment and Plan: I have discussed the patient's case and plan of care with Dr. Haney. <Aliya MorganJun Deepikaabi CONVERTING OPERATOR - Last Filed: 12/05/24 14:45> Subjective Subjective Date/Time Seen: 12/05/24 11:46 <Aliya Rockwell CONVERTING OPERATOR - Last Filed: 12/05/24 14:45> Patient reports: flatus, bowel movement (Last BM yesterday) and fever (Temp up to 102.4? F yesterday) <RUBIO Hernandez - Last Filed: 12/05/24 14:45> Interval history: Patient's only complaint this morning is feeling hungry. Denies any nausea, vomiting, abdominal pain, cough, shortness of breath, urinary complaints, or any other complaints at this time. He was tolerating clear liquids over the weekend and bowels have been moving. He was started on broad- spectrum IV antibiotics yesterday due to his fever. Blood cultures drawn and chest x-ray suggested possible pneumonia. He is on room air with good oxygen saturation. <RUBIO Hernandez - Last Filed: 12/05/24 14:45> Exam Const: General: comfortable and no acute distress <RUBIO Hernandez - Last Filed: 12/05/24 14:45> GI: Inspection: non-distended <RUBIO Hernandez - Last Filed: 12/05/24 14:45> GI Palp: Yes Soft to palpation, No Tenderness to palpation present (GI), No Guarding due to palpation present (GI) and No Rebound tenderness present <RUBIO Hernandez - Last Filed: 12/05/24 14:45> Auscultation: normal bowel sounds <RUBIO Hernandez - Last Filed: 12/05/24 14:45> Objective Data Vital Signs Vital Signs: Vital Signs - 24 hr 12/04/24 12:00 12/04/24 14:34 12/04/24 15:59 Temperature 99.2 F 102.4 F H Pulse Rate 76 75 Respiratory Rate 32 H 22 H Blood Pressure 135/62 Pulse Oximetry 93 Oxygen Delivery 12/04/24 16:00 12/04/24 16:00 12/04/24 16:57 Temperature 102.4 F H 101.8 F H Pulse Rate 77 Respiratory Rate Blood Pressure Pulse Oximetry Oxygen Delivery 12/04/24 17:00 12/04/24 18:44 12/04/24 19:52 Temperature 101.8 F H 99.3 F 99.7 F H Pulse Rate 76 Respiratory Rate 16 Blood Pressure 126/68 Pulse Oximetry 92 Oxygen Delivery 12/04/24 20:00 12/04/24 20:00 12/05/24 00:00 Temperature Pulse Rate 76 76 Respiratory Rate Blood Pressure Pulse Oximetry Oxygen Delivery Room Air 12/05/24 04:00 12/05/24 04:43 12/05/24 08:00 Temperature 99.3 F Pulse Rate 76 75 Respiratory Rate 18 Blood Pressure 125/70 Pulse Oximetry 98 98 Oxygen Delivery Room Air 12/05/24 08:00 12/05/24 08:27 Temperature Pulse Rate 76 75 Respiratory Rate Blood Pressure Pulse Oximetry Oxygen Delivery <RUBIO Hernandez - Last Filed: 12/05/24 14:45> Intake/Output Intake/Output: Intake & Output 12/02/24 12/03/24 12/04/24 12/05/24 23:59 23:59 23:59 23:59 Intake Total 3087.3 4128.2 2182.5 50 Output Total 2350 3450 1350 1800 Balance 737.3 678.2 832.5 -1750 <RUBIO Hernandez - Last Filed: 12/05/24 14:45> Meds/Results Medications: Active Medications Generic Name Dose Route Start Last Admin Trade Name Freq PRN Reason Stop Dose Admin Acetaminophen 650 mg 11/28/24 20:05 12/04/24 16:00 Acetaminophen 325 Mg Tablet PO 650 mg Q4H PRN Administration Mild Pain (1-3) or Fever Atorvastatin Calcium 40 mg 11/29/24 21:00 12/04/24 21:32 Atorvastatin 40 Mg Tablet PO 40 mg HS BRE Administration Dextrose 12.5 gm 11/29/24 02:22 Dextrose 50% 25 Gm/50 Ml Syringe IV PUSH PRN PRN Hypoglycemia Protocol Ferrous Sulfate 325 mg 11/30/24 09:00 12/05/24 08:27 Ferrous Sulfate [address] BY MOUTH 325 mg DAILY BRE Administration Furosemide 40 mg 11/30/24 09:00 12/05/24 08:27 Furosemide 40 Mg Tablet PO 40 mg DAILY BRE Administration Gabapentin 300 mg 11/29/24 13:00 12/05/24 08:27 Gabapentin 300 Mg Capsule PO 300 mg TID BRE Administration Glucose 15 gm 11/29/24 02:22 Glucose Oral Gel 15 Gm Of Glucse In 37.5 Gm Tube PO PRN PRN Hypoglycemia Protocol Dextrose 1,000 mls @ 100 mls/hr 11/29/24 02:22 Dextrose 5% 1,000 Ml IVPB PRN PRN Hypoglycemia Protocol Dextrose 1,000 mls @ 50 mls/hr 12/01/24 08:14 Dextrose 10% IV CONT .Q20H PRN if PN is interrupted Multivitamins 1.25 ml/ 1,002.5 mls @ 40 mls/hr 12/01/24 12:00 12/04/24 14:03 Multivitamins 1.25 ml/ Amino IV CONT 40 mls/hr Acids/Electrolytes/Dextrose .Q24H BRE Administration Protocol Fat Emulsion Intravenous 250 mls @ 20.833 mls/hr 12/01/24 12:00 12/04/24 11:15 Lipids 20% IVPB 20.8 mls/hr Q24H BRE Administration Piperacillin Sod/Tazobactam Sod 4.5 gm in 100 mls @ 200 mls/hr 12/05/24 08:00 12/05/24 07:47 Zosyn 4.5 Gm/Ns 100 Ml IVPB 200 mls/hr Q6HR BRE Administration Insulin Aspart 1 - 2 units 11/29/24 21:00 12/04/24 21:32 Insulin Aspart (*Bkc) 100 Units/Ml SUB-Q Not Given HS [facility] Protocol Insulin Aspart 2 - 5 units 11/29/24 08:00 12/05/24 08:26 Insulin Aspart (*Bkc) 100 Units/Ml SUB-Q Not Given TIDWM [facility] Protocol Losartan Potassium 50 mg 11/29/24 21:00 12/05/24 08:27 Losartan Potassium 50 Mg Tablet PO 50 mg Q12H BRE Administration Melatonin 5 mg 11/29/24 21:00 12/04/24 21:32 Melatonin 5 Mg Tablet PO 5 mg HS BRE Administration Ondansetron HCl 4 mg 11/28/24 20:05 Ondansetron Inj 4 Mg/2 Ml Vial IV PUSH Q4H PRN Nausea Pantoprazole Sodium 40 mg 11/30/24 09:00 12/05/24 08:27 Pantoprazole 40 Mg Tablet PO 40 mg QAM BRE Administration Sodium Chloride 10 ml 12/01/24 14:00 12/05/24 07:45 Central Line Flush IV PUSH 10 ml Q8HR BRE Administration Sodium Chloride 10 ml 12/01/24 09:42 Central Line Flush IV PUSH PRN PRN with TPN bag changes Sodium Chloride 20 ml 12/01/24 09:42 12/04/24 05:36 Central Line Flush IV PUSH 20 ml PRN PRN Administration after blood draws Sotalol HCl 120 mg 11/29/24 12:00 12/05/24 08:27 Sotalol Hcl 40 Mg Tablet PO 120 mg Q12HR BRE Administration <RUBIO Hernandez - Last Filed: 12/05/24 14:45> Radiology Results: ITS Impressions Chest/Abdomen/Pelvis CT 11/30/24 13:27 IMPRESSION: 1. Prominent wall thickening along the distal transverse colon concerning for colon cancer. No lesion suspicious for metastatic disease. 2. Small right and [id number] left pleural effusions with associated atelectasis in the bilateral lower lobes, left greater than right. 3. Cardiomegaly enlargement of the central pulmonary arteries consistent with pulmonary arterial hypertension. 4. Moderate-sized bilateral fat-containing inguinal hernias. 5. Minimal nonspecific ascites in the deep pelvis. Chest X-Ray 12/04/24 21:13 IMPRESSION: Bilateral airspace disease suggestive of pneumonia versus pulmonary edema. <RUBIO Hernandez - Last Filed: 12/05/24 14:45> Labs Labs: Laboratory Results - last 24 hr 12/04/24 12/04/24 12/04/24 11:58 15:26 16:25 WBC RBC Hgb Hct MCV MCH MCHC RDW Plt Count MPV Immature Gran % (Auto) Neut % (Auto) Lymph % (Auto) [place] % (Auto) Eos % (Auto) Baso % (Auto) Lymph # (Auto) [place] # (Auto) Eos # (Auto) Baso # (Auto) Abs Immat Gran (auto) Absolute Neuts (auto) Absolute Nucleated RBC Band Neutrophils % Nucleated RBC % Platelet Estimate Anisocytosis Ovalocytes Schistocytes PT INR APTT Sodium 131 L Potassium 4.0 Chloride 100 Carbon Dioxide 27 Anion Gap 4 BUN 15 Creatinine 0.60 L Estim Creat Clear Calc 92 Estimated GFR > 60 Glucose 142 H POC Capillary Glucose 124 H 128 H Lactic Acid Calcium 7.5 L Phosphorus Magnesium Transferrin Total Bilirubin 0.7 AST 21 ALT 16 Alkaline Phosphatase 66 Total Protein 5.0 L Albumin 2.6 L Procalcitonin Urine Color Urine Appearance Urine pH Ur Specific [place] Urine Protein Urine Glucose (UA) Urine Ketones Ur Blood (Man) Urine Nitrate Urine Bilirubin Urine Urobilinogen Leukocyte Esterase Rfl Nasal MRSA (PCR) Influenza A (RT-PCR) Influenza B (RT-PCR) RSV (RT-PCR) SARS-CoV-2 RNA (RT-PCR) 12/04/24 12/04/24 12/05/24 20:06 23:39 02:04 WBC RBC Hgb Hct MCV MCH MCHC RDW Plt Count MPV Immature Gran % (Auto) Neut % (Auto) Lymph % (Auto) [place] % (Auto) Eos % (Auto) Baso % (Auto) Lymph # (Auto) [place] # (Auto) Eos # (Auto) Baso # (Auto) Abs Immat Gran (auto) Absolute Neuts (auto) Absolute Nucleated RBC Band Neutrophils % Nucleated RBC % Platelet Estimate Anisocytosis Ovalocytes Schistocytes PT INR APTT Sodium Potassium Chloride Carbon Dioxide Anion Gap BUN Creatinine Estim Creat Clear Calc Estimated GFR Glucose POC Capillary Glucose 113 H Lactic Acid Calcium Phosphorus Magnesium Transferrin Total Bilirubin AST ALT Alkaline Phosphatase Total Protein Albumin Procalcitonin Urine Color Yellow Urine Appearance Clear Urine pH 7.0 Ur Specific [place] 1.004 Urine Protein Negative Urine Glucose (UA) Negative Urine Ketones Negative Ur Blood (Man) Negative Urine Nitrate Negative Urine Bilirubin Negative Urine Urobilinogen 0.2 Leukocyte Esterase Rfl Negative Nasal MRSA (PCR) Influenza A (RT-PCR) Negative Influenza B (RT-PCR) Negative RSV (RT-PCR) Negative SARS-CoV-2 RNA (RT-PCR) Negative 12/05/24 12/05/24 12/05/24 02:58 04:56 06:07 WBC 8.1 RBC 3.73 L Hgb 10.1 L Hct 33.9 L MCV 90.9 MCH 27.1 MCHC 29.8 L RDW 15.1 H Plt Count 168 MPV 9.7 Immature Gran % (Auto) 0.2 Neut % (Auto) 79.9 H Lymph % (Auto) 9.6 L [place] % (Auto) 8.8 H Eos % (Auto) 0.9 Baso % (Auto) 0.6 Lymph # (Auto) 0.77 L [place] # (Auto) 0.7 H Eos # (Auto) 0.1 Baso # (Auto) 0.1 Abs Immat Gran (auto) 0.02 Absolute Neuts (auto) 6.4 Absolute Nucleated RBC 0.000 Band Neutrophils % Not Reportable Nucleated RBC % 0.0 Platelet Estimate Adequate Anisocytosis 1+ Ovalocytes 1+ Schistocytes None seen PT 18.2 H INR 1.5 APTT 42.9 H Sodium 133 L Potassium 4.1 Chloride 103 Carbon Dioxide 26 Anion Gap 4 BUN 12 Creatinine 0.56 L Estim Creat Clear Calc 97 Estimated GFR > 60 Glucose 110 POC Capillary Glucose 117 H Lactic Acid 1.0 Calcium 7.5 L Phosphorus 3.2 Magnesium 2.2 Transferrin 100 L Total Bilirubin 0.6 AST 20 ALT 15 Alkaline Phosphatase 65 Total Protein 5.0 L Albumin 2.5 L Procalcitonin 0.1 Urine Color Urine Appearance Urine pH Ur Specific [place] Urine Protein Urine Glucose (UA) Urine Ketones Ur Blood (Man) Urine Nitrate Urine Bilirubin Urine Urobilinogen Leukocyte Esterase Rfl Nasal MRSA (PCR) Not detected Influenza A (RT-PCR) Influenza B (RT-PCR) RSV (RT-PCR) SARS-CoV-2 RNA (RT-PCR) <RUBIO Hernandez - Last Filed: 12/05/24 14:45> Attestation Supervising Provider Attestation I have personally seen and evaluated the patient today with [employer].? ? I have reviewed any new relevant radiographic and laboratory results.? I have reviewed the rosales elements of the patient's current surgical or medical problems and I have personally performed a substantive portion of the care for this patient.? I personally performed the pertinent physical exam and reviewed and confirmed the patient's medicine list.? ? I have formulated the surgical care plan and I agree with the documented note above. <Manjinder Haney MD - Last Filed: 12/05/24 15:32>
[2024-12-05 11:53] LABS: Glucose Point of Care 119 mg/dl (65-105)
[2024-12-05 11:53] LABS: Glucose Point of Care 125 mg/dl (65-105)
[2024-12-05] MEDS: AMINO ACIDS 5%/D15W/E-LYTES/CA 1,000 ML with MULTIVITAMINS-12 INJ VIAL 1 1.25 ML, MULTI... 40 ML IV CONT (11:53)
[2024-12-05] MEDS: FAT EMULSIONS IV 20% 250 ML 20.8 ML IVPB (11:55)
--- NOTE | 2024-12-05 13:18 | PCOTNOTE ---
Attempted to see Patient at this time. Patient refusing to participate in services, Patient stated he was supposed to be going to surgery and they cancelled it. Patient is very agitated and will not participate.
--- NOTE | 2024-12-05 13:59 | PCPTNOTE ---
Patient refused treatment this session due to not feeling well.
[2024-12-05] MEDS: ALTEPLASE 2 MG VIAL (CATHFLO) IV PUSH (14:26)
[2024-12-05] MEDS: ACETAMINOPHEN 325 MG TABLET 650 MG PO (16:40)
[2024-12-05 17:03] LABS: Glucose Point of Care 159 mg/dl (65-105)
--- NOTE | 2024-12-05 19:44 | P.PNONC_ITS ---
Progress Note: A&P Assessment and Plan (1) Colonic mass: Code(s): K63.89 - Other specified diseases of intestine Status: Acute Assessment and Plan: Patient admitted for anemia with iron deficiency noted in labs done at admission. Patient underwent colonoscopy on 11/30/2024 and was found to have a completely obstructive fungating mass in the ascending colon measuring 3-4 cm. Pathology of the mass is reported as necrotic specimen with some high-grade dysplasia. A comment is made by pathologist that this is no doubt an invasive malignancy and the specimen is only on from the top of the tumor. CT scan of the chest, abdomen, and pelvis performed 11/30/2024 showed thickening along the distal transverse colon concerning for cancer. There was no metastatic disease. There were small right and moderate left pleural effusion with cardiomegaly. At this time issue seems to be localized colon cancer and with pending obstruction he will need a surgical intervention sooner than later. I explained this to the patient and his at bedside General surgery has seen patient today and recommended TPN to raise the nutrition level. Patient was does undergo colon resection surgery today however he spiked a fever last night and there were concerns of pneumonia on chest x-ray. Blood cultures were obtained and patient started on IV Zosyn. Per surgical team if there is no growth on blood cultures in next 2 days and there are no fevers then plan is to perform surgery on 12/07/2024. (2) Iron deficiency anemia: Code(s): D50.9 - Iron deficiency anemia, unspecified Status: Acute Assessment and Plan: Patient received one unit of PRBC during this admission. He also received 1 dose of IV iron sucrose 400 mg on 12/04/2024 to improve his hemoglobin before surgery. His hemoglobin today is 10.1. Subjective Date/time seen: 12/05/24 19:44 Interval history: Patient resting comfortably. He spiked a fever of 102.4 last night. A chest x- ray showed pneumonia. Blood cultures were obtained and patient was started on IV Zosyn. Plans for colon surgery was aborted today. Review of Systems Review of Systems Patient himself feels well and denies any chest pain, shortness of breath, cough, hemoptysis. He denies any abdominal pain. Patient reports that he has been passing bowels okay without any pain although he reports some diarrhea. He denies any hematochezia or melena. Patient states that he has increased his Ensure intake to 3 times a day while hospitalized. Rest of the 12 point review of system is negative Exam Narrative: General: chronic illl appearing, elderly male in no acute distress HEENT: normocephalic, atraumatic. Mucous membranes moist. EOMI, PERRLA, bilateral sclera anicteric, no conjunctival injection. Neck supple without JVD, lymphadenopathy, or bruit. Respiratory: clear to ascultation bilaterally. No rales/rhonic/wheezes. Cardiovascular: Regular rate and rhythm, no m/g/r Abdomen: Soft, round, no pulsatile masses, nondistended and nontender. No rebound, no guarding. No CVA tenderness, no hepatosplenomegaly. Bowel sounds present to all four quadrants. Extremities: Patient has 2+ edema in bilateral lower extremity Neuro: Alert and orientated x 4. PERRLA. Cranial nerves 2-12 intact without focal deficit. Skin: Warm, dry, and intact, without rash, erythema, or lesion. Psych: pleasant, cooperative, normal speech, normal affect, no hallucinations, no dysarthia Objective Data Vital Signs Vital Signs: Vital Signs - 24 hr 12/04/24 19:52 12/04/24 20:00 12/04/24 20:00 Temperature 37.6 C H Pulse Rate 76 76 Respiratory Rate 16 Blood Pressure 126/68 Pulse Oximetry 92 Oxygen Delivery Room Air 12/05/24 00:00 12/05/24 04:00 12/05/24 04:43 Temperature 37.4 C Pulse Rate 76 76 75 Respiratory Rate 18 Blood Pressure 125/70 Pulse Oximetry 98 Oxygen Delivery 12/05/24 08:00 12/05/24 08:00 12/05/24 08:27 Temperature Pulse Rate 76 75 Respiratory Rate Blood Pressure Pulse Oximetry 98 Oxygen Delivery Room Air 12/05/24 12:00 12/05/24 14:00 12/05/24 16:00 Temperature 36.6 C Pulse Rate 76 75 78 Respiratory Rate 18 Blood Pressure 122/56 L Pulse Oximetry 97 Oxygen Delivery Intake/Output Intake/Output: Intake & Output 12/02/24 12/03/24 12/04/24 12/05/24 23:59 23:59 23:59 23:59 Intake Total 3087.3 4128.2 2432.5 2683.3 Output Total 2350 3450 1350 3900 Balance 737.3 678.2 1082.5 -1216.7 Meds/Results Medications: Active Medications Generic Name Dose Route Start Last Admin Trade Name Shalieshq PRN Reason Stop Dose Admin Acetaminophen 650 mg 11/28/24 20:05 12/05/24 16:40 Acetaminophen 325 Mg Tablet PO 650 mg Q4H PRN Administration Mild Pain (1-3) or Fever Alteplase, Recombinant 2 mg 12/05/24 14:04 12/05/24 14:26 Alteplase 2 Mg Vial (Cathflo) IV PUSH 2 mg ONCE PRN Administration Line Occlusion Atorvastatin Calcium 40 mg 11/29/24 21:00 12/04/24 21:32 Atorvastatin 40 Mg Tablet PO 40 mg HS BRE Administration Dextrose 12.5 gm 11/29/24 02:22 Dextrose 50% 25 Gm/50 Ml Syringe IV PUSH PRN PRN Hypoglycemia Protocol Ferrous Sulfate 325 mg 11/30/24 09:00 12/05/24 08:27 Ferrous Sulfate [address] BY MOUTH 325 mg DAILY BRE Administration Furosemide 40 mg 11/30/24 09:00 12/05/24 08:27 Furosemide 40 Mg Tablet PO 40 mg DAILY BRE Administration Gabapentin 300 mg 11/29/24 13:00 12/05/24 16:25 Gabapentin 300 Mg Capsule PO 300 mg TID BRE Administration Glucose 15 gm 11/29/24 02:22 Glucose Oral Gel 15 Gm Of Glucse In 37.5 Gm Tube PO PRN PRN Hypoglycemia Protocol Dextrose 1,000 mls @ 100 mls/hr 11/29/24 02:22 Dextrose 5% 1,000 Ml IVPB PRN PRN Hypoglycemia Protocol Dextrose 1,000 mls @ 50 mls/hr 12/01/24 08:14 Dextrose 10% IV CONT .Q20H PRN if PN is interrupted Multivitamins 1.25 ml/ 1,002.5 mls @ 40 mls/hr 12/01/24 12:00 12/05/24 11:53 Multivitamins 1.25 ml/ Amino IV CONT 40 mls/hr Acids/Electrolytes/Dextrose .Q24H BRE Administration Protocol Fat Emulsion Intravenous 250 mls @ 20.833 mls/hr 12/01/24 12:00 12/05/24 11:55 Lipids 20% IVPB 20.8 mls/hr Q24H BRE Administration Piperacillin Sod/Tazobactam Sod 4.5 gm in 100 mls @ 200 mls/hr 12/05/24 08:00 12/05/24 17:03 Zosyn 4.5 Gm/Ns 100 Ml IVPB 200 mls/hr Q6HR BRE Administration Insulin Aspart 1 - 2 units 11/29/24 21:00 12/04/24 21:32 Insulin Aspart (*Bkc) 100 Units/Ml SUB-Q Not Given HS [facility] Protocol Insulin Aspart 2 - 5 units 11/29/24 08:00 12/05/24 17:05 Insulin Aspart (*Bkc) 100 Units/Ml SUB-Q Not Given TIDWM [facility] Protocol Losartan Potassium 50 mg 11/29/24 21:00 12/05/24 08:27 Losartan Potassium 50 Mg Tablet PO 50 mg Q12H BRE Administration Melatonin 5 mg 11/29/24 21:00 12/04/24 21:32 Melatonin 5 Mg Tablet PO 5 mg HS BRE Administration Ondansetron HCl 4 mg 11/28/24 20:05 Ondansetron Inj 4 Mg/2 Ml Vial IV PUSH Q4H PRN Nausea Pantoprazole Sodium 40 mg 11/30/24 09:00 12/05/24 08:27 Pantoprazole 40 Mg Tablet PO 40 mg QAM BRE Administration Sodium Chloride 10 ml 12/01/24 14:00 12/05/24 12:27 Central Line Flush IV PUSH 10 ml Q8HR BRE Administration Sodium Chloride 10 ml 12/01/24 09:42 Central Line Flush IV PUSH PRN PRN with TPN bag changes Sodium Chloride 20 ml 12/01/24 09:42 12/04/24 05:36 Central Line Flush IV PUSH 20 ml PRN PRN Administration after blood draws Sotalol HCl 120 mg 11/29/24 12:00 12/05/24 08:27 Sotalol Hcl 40 Mg Tablet PO 120 mg Q12HR BRE Administration Radiology Results: ITS Impressions Chest/Abdomen/Pelvis CT 11/30/24 13:27 IMPRESSION: 1. Prominent wall thickening along the distal transverse colon concerning for colon cancer. No lesion suspicious for metastatic disease. 2. Small right and [id number] left pleural effusions with associated atelectasis in the bilateral lower lobes, left greater than right. 3. Cardiomegaly enlargement of the central pulmonary arteries consistent with pulmonary arterial hypertension. 4. Moderate-sized bilateral fat-containing inguinal hernias. 5. Minimal nonspecific ascites in the deep pelvis. Chest X-Ray 12/04/24 21:13 IMPRESSION: Bilateral airspace disease suggestive of pneumonia versus pulmonary edema. Labs Labs: Laboratory Results - last 24 hr 12/04/24 12/04/24 12/05/24 20:06 23:39 02:04 WBC RBC Hgb Hct MCV MCH MCHC RDW Plt Count MPV Immature Gran % (Auto) Neut % (Auto) Lymph % (Auto) [place] % (Auto) Eos % (Auto) Baso % (Auto) Lymph # (Auto) [place] # (Auto) Eos # (Auto) Baso # (Auto) Abs Immat Gran (auto) Absolute Neuts (auto) Absolute Nucleated RBC Band Neutrophils % Nucleated RBC % Platelet Estimate Anisocytosis Ovalocytes Schistocytes PT INR APTT Sodium Potassium Chloride Carbon Dioxide Anion Gap BUN Creatinine Estim Creat Clear Calc Estimated GFR Glucose POC Capillary Glucose 113 H Lactic Acid Calcium Phosphorus Magnesium Transferrin Total Bilirubin AST ALT Alkaline Phosphatase Total Protein Albumin Procalcitonin Urine Color Yellow Urine Appearance Clear Urine pH 7.0 Ur Specific [place] 1.004 Urine Protein Negative Urine Glucose (UA) Negative Urine Ketones Negative Ur Blood (Man) Negative Urine Nitrate Negative Urine Bilirubin Negative Urine Urobilinogen 0.2 Leukocyte Esterase Rfl Negative Nasal MRSA (PCR) Influenza A (RT-PCR) Negative Influenza B (RT-PCR) Negative RSV (RT-PCR) Negative SARS-CoV-2 RNA (RT-PCR) Negative 12/05/24 12/05/24 12/05/24 02:58 04:56 06:07 WBC 8.1 RBC 3.73 L Hgb 10.1 L Hct 33.9 L MCV 90.9 MCH 27.1 MCHC 29.8 L RDW 15.1 H Plt Count 168 MPV 9.7 Immature Gran % (Auto) 0.2 Neut % (Auto) 79.9 H Lymph % (Auto) 9.6 L [place] % (Auto) 8.8 H Eos % (Auto) 0.9 Baso % (Auto) 0.6 Lymph # (Auto) 0.77 L [place] # (Auto) 0.7 H Eos # (Auto) 0.1 Baso # (Auto) 0.1 Abs Immat Gran (auto) 0.02 Absolute Neuts (auto) 6.4 Absolute Nucleated RBC 0.000 Band Neutrophils % Not Reportable Nucleated RBC % 0.0 Platelet Estimate Adequate Anisocytosis 1+ Ovalocytes 1+ Schistocytes None seen PT 18.2 H INR 1.5 APTT 42.9 H Sodium 133 L Potassium 4.1 Chloride 103 Carbon Dioxide 26 Anion Gap 4 BUN 12 Creatinine 0.56 L Estim Creat Clear Calc 97 Estimated GFR > 60 Glucose 110 POC Capillary Glucose 117 H Lactic Acid 1.0 Calcium 7.5 L Phosphorus 3.2 Magnesium 2.2 Transferrin 100 L Total Bilirubin 0.6 AST 20 ALT 15 Alkaline Phosphatase 65 Total Protein 5.0 L Albumin 2.5 L Procalcitonin 0.1 Urine Color Urine Appearance Urine pH Ur Specific [place] Urine Protein Urine Glucose (UA) Urine Ketones Ur Blood (Man) Urine Nitrate Urine Bilirubin Urine Urobilinogen Leukocyte Esterase Rfl Nasal MRSA (PCR) Not detected Influenza A (RT-PCR) Influenza B (RT-PCR) RSV (RT-PCR) SARS-CoV-2 RNA (RT-PCR) 12/05/24 12/05/24 12/05/24 08:25 11:50 16:59 WBC RBC Hgb Hct MCV MCH MCHC RDW Plt Count MPV Immature Gran % (Auto) Neut % (Auto) Lymph % (Auto) [place] % (Auto) Eos % (Auto) Baso % (Auto) Lymph # (Auto) [place] # (Auto) Eos # (Auto) Baso # (Auto) Abs Immat Gran (auto) Absolute Neuts (auto) Absolute Nucleated RBC Band Neutrophils % Nucleated RBC % Platelet Estimate Anisocytosis Ovalocytes Schistocytes PT INR APTT Sodium Potassium Chloride Carbon Dioxide Anion Gap BUN Creatinine Estim Creat Clear Calc Estimated GFR Glucose POC Capillary Glucose 125 H 119 H 159 H Lactic Acid Calcium Phosphorus Magnesium Transferrin Total Bilirubin AST ALT Alkaline Phosphatase Total Protein Albumin Procalcitonin Urine Color Urine Appearance Urine pH Ur Specific [place] Urine Protein Urine Glucose (UA) Urine Ketones Ur Blood (Man) Urine Nitrate Urine Bilirubin Urine Urobilinogen Leukocyte Esterase Rfl Nasal MRSA (PCR) Influenza A (RT-PCR) Influenza B (RT-PCR) RSV (RT-PCR) SARS-CoV-2 RNA (RT-PCR)
[2024-12-05] MEDS: MELATONIN 5 MG TABLET PO (20:43)
[2024-12-05] MEDS: ATORVASTATIN 40 MG TABLET PO (20:44)
[2024-12-05 21:05] LABS: Glucose Point of Care 227 mg/dl (65-105)
[2024-12-05] MEDS: INSULIN ASPART (*BKC) 100 UNITS/ML SUB-Q (23:34)
[2024-12-06] VITALS (10 sets, daily range): BP systolic 137–149; BP diastolic 58–68; PULSE 72–79; RESP 18; TEMP 36.4–36.8; O2SAT 96–100
[2024-12-06] MEDS: PIPERACILLIN/TAZ 4.5G/NS 100ML 4.5 GM/100 ML BAG IVPB ×3 (05:28→17:16)
[2024-12-06] MEDS: CENTRAL LINE FLUSH 10 ML IV PUSH ×3 (05:29→23:30)
[2024-12-06 05:48] LABS: Anion Gap 2 mmol/L (4-12); Blood Urea Nitrogen 14 mg/dL (9-20); Calcium 7.1 mg/dL (8.4-10.2); Carbon Dioxide 29 mmol/L (22-30); Chloride 100 mmol/L (98-107); Estimated CRCL calculation 94 ml/min; Estimated Glomerular Filt Rate > 60; Glucose 138 mg/dL (65-110); Potassium 3.9 mmol/L (3.4-5.0); Sodium 131 mmol/L (137-145); Triglycerides 51 mg/dL (<150)
--- NOTE | 2024-12-06 07:26 | P.PNIM_ITS ---
Progress Note: A&P Assessment and Plan (1) Colonic mass: Code(s): K63.89 - Other specified diseases of intestine Status: Acute Assessment and Plan: * Colonoscopy 11/30: Completely-obstructing circumferential, fungating, friable, infiltrative, malignant appearing mass observed in ascending colon, approx 3- 4cm. Multiple biopsies taken * GI, Gen Surg, Heme/Onc following * CEA = 7.8 * PICC Line established, to start TPN for nutrition boost and to increase Albumin * TPN and Ensure for nutrition supplementation * He is afebrile at this time with continued lack of bacterial growth on blood cultures * Has been added to the schedule for a hand-assisted laparoscopic right hemicolectomy by Dr. Haney for tomorrow (2) Anemia: Qualifiers: Anemia type: iron deficiency Iron deficiency anemia type: unspecified iron deficiency Qualified Code(s): D50.9 - Iron deficiency anemia, unspecified Code(s): D64.9 - Anemia, unspecified Status: Acute Assessment and Plan: * 1 RBC 11/29 * Telemetry monitoring * Anemia workup, unable do iron panel due to transfusion * Colonoscopy and EGD yesterday, see above * Stable * Likely related to colonic mass * Hgb 6.4 12/03: Transfused 2 units PRBC * Stable, Hgb 10.1 (3) Fever: Code(s): R50.9 - Fever, unspecified Status: Acute Assessment and Plan: * Spiked fever of 102.4F on 12/04 * UA wnl, BC pending * CXR 12/04: bibasilar airspace disease concerning for pneumonia * Benign physical exam, no SOB, leukocytosis, or hypoxia * Started on Vanc + Zosyn, d/c Vanc as nasal MRSA (-) * Monitor BCs and WBC (4) Acute UTI: Code(s): N39.0 - Urinary tract infection, site not specified Status: Acute Assessment and Plan: * Could be a factor in weakness * Culture showed Klebsiella growth with Rocephin susceptibility * Rocephin completed Resolved (5) HTN (hypertension): Code(s): I10 - Essential (primary) hypertension Status: Acute Assessment and Plan: * Continue cozaar * stable (6) Afib: Code(s): I48.91 - Unspecified atrial fibrillation Status: Acute Assessment and Plan: * Continue sotalol * stable (7) Diabetes: Code(s): E11.9 - Type 2 diabetes mellitus without complications Status: Acute Assessment and Plan: * Hold metformin * Diabetic diet * A Accu-Cheks a.c. HS * SSI (8) Weakness: Code(s): R53.1 - Weakness Status: Acute Assessment and Plan: * PT and OT * Ensure t.i.d. * PICC line inserted on 12/01 * TPN for further supplementation (9) Edema: Code(s): R60.9 - Edema, unspecified Status: Acute Assessment and Plan: * Continue IV Lasix * Request outside records Subjective Date/time seen: 12/06/24 07:26 Interval history: 79-year-old male past history of history of CABG and pacemaker, atrial fibrillation, GERD, high cholesterol on Lasix presents the hospital with complaints of swelling of hands and feet and not being able to walk. 12/06/2024 Patient denies any complaints at this time. Abdomen continues to be low, 2.2 today. Surgery okay at this point with continuing with hand assisted laparoscopic right hemicolectomy by Dr. Haney tomorrow. Will continue clear liquid diet with Ensure supplements, NPO after midnight. Also to continue TPN tomorrow. Continue Zosyn. Blood cultures continue to show no growth. Review of Systems Review of Systems: 12 systems were reviewed and are negativ e except for as per HPI. Exam Narrative: General: chronic illl appearing, appears older than stated age. HEENT: normocephalic, atraumatic. Mucous membranes moist. EOMI, PERRLA, bilateral sclera anicteric, no conjunctival injection. Neck supple without JVD, lymphadenopathy, or bruit. Respiratory: clear to ascultation bilaterally. No rales/rhonic/wheezes. Cardiovascular: Regular rate and rhythm, normal S1-S2 upon ascultation. No murmurs, rubs, or clicks. PMI is nondisplaced, capillary refill less than 3 second. Abdomen: Soft, round, no pulsatile masses, nondistended and nontender. No rebound, no guarding. No CVA tenderness, no hepatosplenomegaly. Bowel sounds present to all four quadrants. No high pitch or tinkling sounds, resonant to percussion. Extremities: No cyanosis, clubbing, or edema present. Pulses are palpable 2/2. Active ROM to all four extremities. Neuro: Alert and orientated x 4. PERRLA. Cranial nerves 2-12 intact without focal deficit. Skin: Warm, dry, and intact, without rash, erythema, or lesion. Psych: pleasant, cooperative, normal speech, normal affect, no hallucinations, no dysarthia Objective Data Vital Signs Vital Signs: Vital Signs - 24 hr 12/05/24 08:00 12/05/24 08:00 12/05/24 08:27 Temperature Pulse Rate 76 75 Respiratory Rate Blood Pressure Pulse Oximetry 98 Oxygen Delivery Room Air 12/05/24 12:00 12/05/24 14:00 12/05/24 16:00 Temperature 97.9 F Pulse Rate 76 75 78 Respiratory Rate 18 Blood Pressure 122/56 L Pulse Oximetry 97 Oxygen Delivery 12/05/24 20:00 12/05/24 20:00 12/05/24 20:55 Temperature 98 F Pulse Rate 79 76 Respiratory Rate 16 Blood Pressure 132/65 Pulse Oximetry 96 Oxygen Delivery Room Air 12/06/24 00:00 12/06/24 04:00 12/06/24 04:46 Temperature 98.3 F Pulse Rate 76 76 78 Respiratory Rate 18 Blood Pressure 137/68 Pulse Oximetry 97 Oxygen Delivery Intake/Output Intake/Output: Intake & Output 12/03/24 12/04/24 12/05/24 12/06/24 23:59 23:59 23:59 23:59 Intake Total 4128.2 2432.5 2783.3 100 Output Total 3450 1350 3900 1350 Balance 678.2 1082.5 -1116.7 -1250 Meds/Results Medications: Active Medications Generic Name Dose Route Start Last Admin Trade Name Freq PRN Reason Stop Dose Admin Acetaminophen 650 mg 11/28/24 20:05 12/05/24 16:40 Acetaminophen 325 Mg Tablet PO 650 mg Q4H PRN Administration Mild Pain (1-3) or Fever Alteplase, Recombinant 2 mg 12/05/24 14:04 12/05/24 14:26 Alteplase 2 Mg Vial (Cathflo) IV PUSH 2 mg ONCE PRN Administration Line Occlusion Atorvastatin Calcium 40 mg 11/29/24 21:00 12/05/24 20:44 Atorvastatin 40 Mg Tablet PO 40 mg HS BRE Administration Calcium Carbonate 500 mg 12/06/24 08:00 Calcium Carbonate (Oscal) 500 Mg Tablet PO BIDWM BRE Dextrose 12.5 gm 11/29/24 02:22 Dextrose 50% 25 Gm/50 Ml Syringe IV PUSH PRN PRN Hypoglycemia Protocol Ferrous Sulfate 325 mg 11/30/24 09:00 12/05/24 08:27 Ferrous Sulfate [address] BY MOUTH 325 mg DAILY BRE Administration Furosemide 40 mg 11/30/24 09:00 12/05/24 08:27 Furosemide 40 Mg Tablet PO 40 mg DAILY BRE Administration Gabapentin 300 mg 11/29/24 13:00 12/05/24 16:25 Gabapentin 300 Mg Capsule PO 300 mg TID BRE Administration Glucose 15 gm 11/29/24 02:22 Glucose Oral Gel 15 Gm Of Glucse In 37.5 Gm Tube PO PRN PRN Hypoglycemia Protocol Dextrose 1,000 mls @ 100 mls/hr 11/29/24 02:22 Dextrose 5% 1,000 Ml IVPB PRN PRN Hypoglycemia Protocol Dextrose 1,000 mls @ 50 mls/hr 12/01/24 08:14 Dextrose 10% IV CONT .Q20H PRN if PN is interrupted Multivitamins 1.25 ml/ 1,002.5 mls @ 40 mls/hr 12/01/24 12:00 12/05/24 11:53 Multivitamins 1.25 ml/ Amino IV CONT 40 mls/hr Acids/Electrolytes/Dextrose .Q24H BRE Administration Protocol Fat Emulsion Intravenous 250 mls @ 20.833 mls/hr 12/01/24 12:00 12/05/24 11:55 Lipids 20% IVPB 20.8 mls/hr Q24H BRE Administration Piperacillin Sod/Tazobactam Sod 4.5 gm in 100 mls @ 200 mls/hr 12/05/24 08:00 12/06/24 05:28 Zosyn 4.5 Gm/Ns 100 Ml IVPB 200 mls/hr Q6HR BRE Administration Insulin Aspart 1 - 2 units 11/29/24 21:00 12/05/24 23:34 Insulin Aspart (*Bkc) 100 Units/Ml SUB-Q 1 units HS BRE Administration Protocol Insulin Aspart 2 - 5 units 11/29/24 08:00 12/05/24 17:05 Insulin Aspart (*Bkc) 100 Units/Ml SUB-Q Not Given TIDWM BRE Protocol Losartan Potassium 50 mg 11/29/24 21:00 12/05/24 20:44 Losartan Potassium 50 Mg Tablet PO 50 mg Q12H BRE Administration Melatonin 5 mg 11/29/24 21:00 12/05/24 20:43 Melatonin 5 Mg Tablet PO 5 mg HS BRE Administration Ondansetron HCl 4 mg 11/28/24 20:05 Ondansetron Inj 4 Mg/2 Ml Vial IV PUSH Q4H PRN Nausea Pantoprazole Sodium 40 mg 11/30/24 09:00 12/05/24 08:27 Pantoprazole 40 Mg Tablet PO 40 mg QAM BRE Administration Sodium Chloride 10 ml 12/01/24 14:00 12/06/24 05:29 Central Line Flush IV PUSH 10 ml Q8HR BRE Administration Sodium Chloride 10 ml 12/01/24 09:42 Central Line Flush IV PUSH PRN PRN with TPN bag changes Sodium Chloride 20 ml 12/01/24 09:42 12/04/24 05:36 Central Line Flush IV PUSH 20 ml PRN PRN Administration after blood draws Sotalol HCl 120 mg 11/29/24 12:00 12/05/24 20:43 Sotalol Hcl 40 Mg Tablet PO 120 mg Q12HR BRE Administration Radiology Results: ITS Impressions Chest/Abdomen/Pelvis CT 11/30/24 13:27 IMPRESSION: 1. Prominent wall thickening along the distal transverse colon concerning for colon cancer. No lesion suspicious for metastatic disease. 2. Small right and [id number] left pleural effusions with associated atelectasis in the bilateral lower lobes, left greater than right. 3. Cardiomegaly enlargement of the central pulmonary arteries consistent with pulmonary arterial hypertension. 4. Moderate-sized bilateral fat-containing inguinal hernias. 5. Minimal nonspecific ascites in the deep pelvis. Chest X-Ray 12/04/24 21:13 IMPRESSION: Bilateral airspace disease suggestive of pneumonia versus pulmonary edema. Labs Labs: Laboratory Results - last 24 hr 12/05/24 12/05/24 12/05/24 08:25 11:50 16:59 Sodium Potassium Chloride Carbon Dioxide Anion Gap BUN Creatinine Estim Creat Clear Calc Estimated GFR Glucose POC Capillary Glucose 125 H 119 H 159 H Calcium Phosphorus Triglycerides 12/05/24 12/06/24 21:01 05:25 Sodium 131 L Potassium 3.9 Chloride 100 Carbon Dioxide 29 Anion Gap 2 L BUN 14 Creatinine 0.58 L Estim Creat Clear Calc 94 Estimated GFR > 60 Glucose 138 H POC Capillary Glucose 227 H Calcium 7.1 L Phosphorus 3.0 Triglycerides 51 Quality VTE Prophylaxis VTE prophylaxis: mechanical ordered
[2024-12-06 08:37] LABS: Glucose Point of Care 168 mg/dl (65-105)
[2024-12-06] MEDS: CALCIUM CARBONATE (OSCAL) 500 MG TABLET PO ×2 (08:44→17:17)
[2024-12-06] MEDS: FERROUS SULFATE 325 MG TABLET DR BY MOUTH (08:44)
[2024-12-06] MEDS: GABAPENTIN 300 MG CAPSULE PO ×3 (08:44→17:17)
[2024-12-06] MEDS: LOSARTAN POTASSIUM 50 MG TABLET PO ×2 (08:44→21:16)
[2024-12-06] MEDS: FUROSEMIDE 40 MG TABLET PO (08:44)
[2024-12-06] MEDS: SOTALOL HCL 40 MG TABLET 120 MG PO ×2 (08:45→21:16)
[2024-12-06] MEDS: PANTOPRAZOLE 40 MG TABLET PO (08:45)
[2024-12-06 09:40] LABS: Albumin Level 2.2 g/dL (3.5-5.1)
--- NOTE | 2024-12-06 10:47 | PCNFU ---
Nutrition Follow-Up Complete: Unintended weight loss as related to weakness as evidenced 10% (20 ibs) in 2 months. Goal: Adequate intake of at least 75% of meals/supplements Patient will continue current goal. Pt current nutrition is TPN at 40 ml/hr with clear liquids and Ensure Enlive TID. Last recorded weight is 77.3 kg, down from admit 80.9 kg. Bowel Motility: Last reported BM 12/06 Labs Reviewed: Glu 138, Cr 0.58, Alb 2.5 Meds Noted:Protonix, NovoLog, Lasix, Clinimix 5/15 at 40 ml/hr with 250 ml 20% Lipid Emulsion. Skin: WNL Additional Notes: Patient remains on a clear liquid diet. Tolerating diet, 50-75% of trays. Ensure Enlive providing an additional 350 kcal and 20 gm protein. TPN at 40 ml/hr providing 1182 kcal/48 gm protein. Plans for surgery at some point. Will monitor weight, labs, skin, diet orders, meds every Thursday and Thursday
[2024-12-06 11:48] LABS: Glucose Point of Care 181 mg/dl (65-105)
[2024-12-06] MEDS: AMINO ACIDS 5%/D15W/E-LYTES/CA 1,000 ML with MULTIVITAMINS-12 INJ VIAL 1 1.25 ML, MULTI... 40 ML IV CONT (12:50)
[2024-12-06] MEDS: FAT EMULSIONS IV 20% 250 ML 20.8 ML IVPB (12:51)
[2024-12-06 13:13] LABS: INR 1.3; Prothrombin Time 16.4 Seconds (11.1-14.7)
[2024-12-06 13:14] LABS: Partial Thromboplastin Time 32.5 Seconds (22.3-36.8)
--- NOTE | 2024-12-06 14:07 | PM.PNGS ---
Progress Note: A&P Assessment and Plan (1) Colonic mass: Code(s): K63.89 - Other specified diseases of intestine Status: Acute Assessment and Plan: He has been afebrile for 48 hours and his blood cultures show no growth to date. He has been added to the schedule for a hand-assisted laparoscopic right hemicolectomy, possible open, by Dr. Haney for tomorrow. We have discussed the details of the procedure with the patient, including the possibility of conversion to an open procedure. We also discussed possible risks of bleeding, infection, injury to nearby structures, and anastomotic leak that is increased in the setting of malnutrition and could require reoperation if this occurs. We also discussed the typical recovery and changes in bowel function. All of his questions were answered and he agrees to proceed. Will continue a clear liquid diet with Ensure supplements today. Will make him NPO after midnight. Continue TPN and repeat preoperative labs tomorrow. He has remained on a liquid diet for nearly a week and does not require any bowel prep today. He is also on IV Zosyn, which will be continued pre-operatively. (2) Protein calorie malnutrition: Code(s): E46 - Unspecified protein-calorie malnutrition Status: Acute Assessment and Plan: Continue TPN. Albumin at 2.2 today, which is not ideal, but doubt there would be much more of an improvement after receiving nearly a week of TPN. Will repeat CMP tomorrow. We have discussed thoroughly with the patient the risks that are increased by his malnutrition in the perioperative setting. Plan I have discussed the patient's case and plan of care with Dr. Haney. Subjective Subjective Date/Time Seen: 12/06/24 14:07 Patient reports: no new complaints Interval history: No acute changes overnight. He has been afebrile since 12/04/2024. WBC count normal. Blood cultures drawn on 12/04/2024 with no growth to date. Exam Const: General: comfortable and no acute distress GI: Inspection: non-distended GI Palp: Yes Soft to palpation, No Tenderness to palpation present (GI) and No Guarding due to palpation present (GI) Auscultation: normal bowel sounds Objective Data Vital Signs Vital Signs: Vital Signs - 24 hr 12/05/24 16:00 12/05/24 20:00 12/05/24 20:00 Temperature Pulse Rate 78 79 Respiratory Rate Blood Pressure Pulse Oximetry Oxygen Delivery Room Air 12/05/24 20:55 12/06/24 00:00 12/06/24 04:00 Temperature 98 F Pulse Rate 76 76 76 Respiratory Rate 16 Blood Pressure 132/65 Pulse Oximetry 96 Oxygen Delivery 12/06/24 04:46 12/06/24 08:00 12/06/24 08:45 Temperature 98.3 F Pulse Rate 78 79 Respiratory Rate 18 Blood Pressure 137/68 Pulse Oximetry 97 97 Oxygen Delivery Room Air 12/06/24 12:00 Temperature Pulse Rate 75 Respiratory Rate Blood Pressure Pulse Oximetry Oxygen Delivery Intake/Output Intake/Output: Intake & Output 12/03/24 12/04/24 12/05/24 12/06/24 23:59 23:59 23:59 23:59 Intake Total 4128.2 2432.5 3033.3 2158 Output Total 3450 1350 3900 1350 Balance 678.2 1082.5 -866.7 808 Meds/Results Medications: Active Medications Generic Name Dose Route Start Last Admin Trade Name Freq PRN Reason Stop Dose Admin Acetaminophen 650 mg 11/28/24 20:05 12/05/24 16:40 Acetaminophen 325 Mg Tablet PO 650 mg Q4H PRN Administration Mild Pain (1-3) or Fever Alteplase, Recombinant 2 mg 12/05/24 14:04 12/05/24 14:26 Alteplase 2 Mg Vial (Cathflo) IV PUSH 2 mg ONCE PRN Administration Line Occlusion Atorvastatin Calcium 40 mg 11/29/24 21:00 12/05/24 20:44 Atorvastatin 40 Mg Tablet PO 40 mg HS BRE Administration Calcium Carbonate 500 mg 12/06/24 08:00 12/06/24 08:44 Calcium Carbonate (Oscal) 500 Mg Tablet PO 500 mg BIDWM BRE Administration Dextrose 12.5 gm 11/29/24 02:22 Dextrose 50% 25 Gm/50 Ml Syringe IV PUSH PRN PRN Hypoglycemia Protocol Ferrous Sulfate 325 mg 11/30/24 09:00 12/06/24 08:44 Ferrous Sulfate [address] BY MOUTH 325 mg DAILY BRE Administration Furosemide 40 mg 11/30/24 09:00 12/06/24 08:44 Furosemide 40 Mg Tablet PO 40 mg DAILY BRE Administration Gabapentin 300 mg 11/29/24 13:00 12/06/24 12:50 Gabapentin 300 Mg Capsule PO 300 mg TID BRE Administration Glucose 15 gm 11/29/24 02:22 Glucose Oral Gel 15 Gm Of Glucse In 37.5 Gm Tube PO PRN PRN Hypoglycemia Protocol Dextrose 1,000 mls @ 100 mls/hr 11/29/24 02:22 Dextrose 5% 1,000 Ml IVPB PRN PRN Hypoglycemia Protocol Dextrose 1,000 mls @ 50 mls/hr 12/01/24 08:14 Dextrose 10% IV CONT .Q20H PRN if PN is interrupted Multivitamins 1.25 ml/ 1,002.5 mls @ 40 mls/hr 12/01/24 12:00 12/06/24 12:50 Multivitamins 1.25 ml/ Amino IV CONT 40 mls/hr Acids/Electrolytes/Dextrose .Q24H BRE Administration Protocol Fat Emulsion Intravenous 250 mls @ 20.833 mls/hr 12/01/24 12:00 12/06/24 12:51 Lipids 20% IVPB 20.8 mls/hr Q24H BRE Administration Piperacillin Sod/Tazobactam Sod 4.5 gm in 100 mls @ 200 mls/hr 12/05/24 08:00 12/06/24 11:52 Zosyn 4.5 Gm/Ns 100 Ml IVPB 200 mls/hr Q6HR BRE Administration Insulin Aspart 1 - 2 units 11/29/24 21:00 12/05/24 23:34 Insulin Aspart (*Bkc) 100 Units/Ml SUB-Q 1 units HS BRE Administration Protocol Insulin Aspart 2 - 5 units 11/29/24 08:00 12/06/24 11:51 Insulin Aspart (*Bkc) 100 Units/Ml SUB-Q Not Given TIDWM [facility] Protocol Losartan Potassium 50 mg 11/29/24 21:00 12/06/24 08:44 Losartan Potassium 50 Mg Tablet PO 50 mg Q12H BRE Administration Melatonin 5 mg 11/29/24 21:00 12/05/24 20:43 Melatonin 5 Mg Tablet PO 5 mg HS BRE Administration Ondansetron HCl 4 mg 11/28/24 20:05 Ondansetron Inj 4 Mg/2 Ml Vial IV PUSH Q4H PRN Nausea Pantoprazole Sodium 40 mg 11/30/24 09:00 12/06/24 08:45 Pantoprazole 40 Mg Tablet PO 40 mg QAM BRE Administration Sodium Chloride 10 ml 12/01/24 14:00 12/06/24 12:50 Central Line Flush IV PUSH 10 ml Q8HR BRE Administration Sodium Chloride 10 ml 12/01/24 09:42 Central Line Flush IV PUSH PRN PRN with TPN bag changes Sodium Chloride 20 ml 12/01/24 09:42 12/04/24 05:36 Central Line Flush IV PUSH 20 ml PRN PRN Administration after blood draws Sotalol HCl 120 mg 11/29/24 12:00 12/06/24 08:45 Sotalol Hcl 40 Mg Tablet PO 120 mg Q12HR BRE Administration Radiology Results: ITS Impressions Chest/Abdomen/Pelvis CT 11/30/24 13:27 IMPRESSION: 1. Prominent wall thickening along the distal transverse colon concerning for colon cancer. No lesion suspicious for metastatic disease. 2. Small right and [id number] left pleural effusions with associated atelectasis in the bilateral lower lobes, left greater than right. 3. Cardiomegaly enlargement of the central pulmonary arteries consistent with pulmonary arterial hypertension. 4. Moderate-sized bilateral fat-containing inguinal hernias. 5. Minimal nonspecific ascites in the deep pelvis. Chest X-Ray 12/04/24 21:13 IMPRESSION: Bilateral airspace disease suggestive of pneumonia versus pulmonary edema. Labs Labs: Laboratory Results - last 24 hr 12/05/24 12/05/24 12/06/24 16:59 21:01 05:23 PT INR APTT Sodium Potassium Chloride Carbon Dioxide Anion Gap BUN Creatinine Estim Creat Clear Calc Estimated GFR Glucose POC Capillary Glucose 159 H 227 H Calcium Phosphorus Albumin 2.2 L Triglycerides 12/06/24 12/06/24 12/06/24 05:25 08:32 11:36 PT INR APTT Sodium 131 L Potassium 3.9 Chloride 100 Carbon Dioxide 29 Anion Gap 2 L BUN 14 Creatinine 0.58 L Estim Creat Clear Calc 94 Estimated GFR > 60 Glucose 138 H POC Capillary Glucose 168 H 181 H Calcium 7.1 L Phosphorus 3.0 Albumin Triglycerides 51 12/06/24 12:53 PT 16.4 H INR 1.3 APTT 32.5 Sodium Potassium Chloride Carbon Dioxide Anion Gap BUN Creatinine Estim Creat Clear Calc Estimated GFR Glucose POC Capillary Glucose Calcium Phosphorus Albumin Triglycerides
--- NOTE | 2024-12-06 14:16 | WPDONCPN ---
Progress Note: A&P Assessment and Plan (1) Colonic mass: Code(s): K63.89 - Other specified diseases of intestine Status: Acute Assessment and Plan: Patient admitted for anemia with iron deficiency noted in labs done at admission. Patient underwent colonoscopy on 11/30/2024 and was found to have a completely obstructive fungating mass in the ascending colon measuring 3-4 cm. Pathology of the mass is reported as necrotic specimen with some high-grade dysplasia. A comment is made by pathologist that this is no doubt an invasive malignancy and the specimen is only on from the top of the tumor. CT scan of the chest, abdomen, and pelvis performed 11/30/2024 showed thickening along the distal transverse colon concerning for cancer. There was no metastatic disease. There were small right and moderate left pleural effusion with cardiomegaly. At this time issue seems to be localized colon cancer and with pending obstruction he will need a surgical intervention sooner than later. I explained this to the patient and his at bedside General surgery has seen patient today and recommended TPN to raise the nutrition level. Patient was does undergo colon resection surgery 12/05/24 however he spiked a fever night before and there were concerns of pneumonia on chest x-ray. Blood cultures were obtained and patient started on IV Zosyn. Blood cultures has no growth to date. Per patient surgery is planned for tomorrow 12/07/2024. I told patient that he needs to have a follow-up with oncologist as an outpatient to review the surgical pathology and finalize the surgical staging. He will need to see Dr. Guzman as an outpatient. (2) Iron deficiency anemia: Code(s): D50.9 - Iron deficiency anemia, unspecified Status: Acute Assessment and Plan: Patient received one unit of PRBC during this admission. He also received 1 dose of IV iron sucrose 400 mg on 12/04/2024 to improve his hemoglobin before surgery. His hemoglobin today is 10.1. Subjective Date/time seen: 12/06/24 14:16 Interval history: No overnight events. No fevers. Blood cultures no growth to date. Review of Systems Review of Systems Patient himself feels well and denies any chest pain, shortness of breath, cough, hemoptysis. He denies any abdominal pain. Patient reports that he has been passing bowels okay without any pain although he reports some diarrhea. He denies any hematochezia or melena. Patient states that he has increased his Ensure intake to 3 times a day while hospitalized. Rest of the 12 point review of system is negative Exam Narrative: General: chronic illl appearing, elderly male in no acute distress HEENT: normocephalic, atraumatic. Mucous membranes moist. EOMI, PERRLA, bilateral sclera anicteric, no conjunctival injection. Neck supple without JVD, lymphadenopathy, or bruit. Respiratory: clear to ascultation bilaterally. No rales/rhonic/wheezes. Cardiovascular: Regular rate and rhythm, no m/g/r Abdomen: Soft, round, no pulsatile masses, nondistended and nontender. No rebound, no guarding. No CVA tenderness, no hepatosplenomegaly. Bowel sounds present to all four quadrants. Extremities: Patient has 2+ edema in bilateral lower extremity Neuro: Alert and orientated x 4. PERRLA. Cranial nerves 2-12 intact without focal deficit. Skin: Warm, dry, and intact, without rash, erythema, or lesion. Psych: pleasant, cooperative, normal speech, normal affect, no hallucinations, no dysarthia Objective Data Vital Signs Vital Signs: Vital Signs - 24 hr 12/05/24 16:00 12/05/24 20:00 12/05/24 20:00 Temperature Pulse Rate 78 79 Respiratory Rate Blood Pressure Pulse Oximetry Oxygen Delivery Room Air 12/05/24 20:55 12/06/24 00:00 12/06/24 04:00 Temperature 36.6 C Pulse Rate 76 76 76 Respiratory Rate 16 Blood Pressure 132/65 Pulse Oximetry 96 Oxygen Delivery 12/06/24 04:46 12/06/24 08:00 12/06/24 08:45 Temperature 36.8 C Pulse Rate 78 79 Respiratory Rate 18 Blood Pressure 137/68 Pulse Oximetry 97 97 Oxygen Delivery Room Air 12/06/24 12:00 Temperature Pulse Rate 75 Respiratory Rate Blood Pressure Pulse Oximetry Oxygen Delivery Intake/Output Intake/Output: Intake & Output 12/03/24 12/04/24 12/05/24 12/06/24 23:59 23:59 23:59 23:59 Intake Total 4128.2 2432.5 3033.3 2158 Output Total 3450 1350 3900 1350 Balance 678.2 1082.5 -866.7 808 Meds/Results Medications: Active Medications Generic Name Dose Route Start Last Admin Trade Name Sharath PRN Reason Stop Dose Admin Acetaminophen 650 mg 11/28/24 20:05 12/05/24 16:40 Acetaminophen 325 Mg Tablet PO 650 mg Q4H PRN Administration Mild Pain (1-3) or Fever Alteplase, Recombinant 2 mg 12/05/24 14:04 12/05/24 14:26 Alteplase 2 Mg Vial (Cathflo) IV PUSH 2 mg ONCE PRN Administration Line Occlusion Atorvastatin Calcium 40 mg 11/29/24 21:00 12/05/24 20:44 Atorvastatin 40 Mg Tablet PO 40 mg HS BRE Administration Calcium Carbonate 500 mg 12/06/24 08:00 12/06/24 08:44 Calcium Carbonate (Oscal) 500 Mg Tablet PO 500 mg BIDWM BRE Administration Dextrose 12.5 gm 11/29/24 02:22 Dextrose 50% 25 Gm/50 Ml Syringe IV PUSH PRN PRN Hypoglycemia Protocol Ferrous Sulfate 325 mg 11/30/24 09:00 12/06/24 08:44 Ferrous Sulfate [address] BY MOUTH 325 mg DAILY BRE Administration Furosemide 40 mg 11/30/24 09:00 12/06/24 08:44 Furosemide 40 Mg Tablet PO 40 mg DAILY BRE Administration Gabapentin 300 mg 11/29/24 13:00 12/06/24 12:50 Gabapentin 300 Mg Capsule PO 300 mg TID BRE Administration Glucose 15 gm 11/29/24 02:22 Glucose Oral Gel 15 Gm Of Glucse In 37.5 Gm Tube PO PRN PRN Hypoglycemia Protocol Dextrose 1,000 mls @ 100 mls/hr 11/29/24 02:22 Dextrose 5% 1,000 Ml IVPB PRN PRN Hypoglycemia Protocol Dextrose 1,000 mls @ 50 mls/hr 12/01/24 08:14 Dextrose 10% IV CONT .Q20H PRN if PN is interrupted Multivitamins 1.25 ml/ 1,002.5 mls @ 40 mls/hr 12/01/24 12:00 12/06/24 12:50 Multivitamins 1.25 ml/ Amino IV CONT 40 mls/hr Acids/Electrolytes/Dextrose .Q24H BRE Administration Protocol Fat Emulsion Intravenous 250 mls @ 20.833 mls/hr 12/01/24 12:00 12/06/24 12:51 Lipids 20% IVPB 20.8 mls/hr Q24H BRE Administration Piperacillin Sod/Tazobactam Sod 4.5 gm in 100 mls @ 200 mls/hr 12/05/24 08:00 12/06/24 11:52 Zosyn 4.5 Gm/Ns 100 Ml IVPB 200 mls/hr Q6HR BRE Administration Insulin Aspart 1 - 2 units 11/29/24 21:00 12/05/24 23:34 Insulin Aspart (*Bkc) 100 Units/Ml SUB-Q 1 units HS BRE Administration Protocol Insulin Aspart 2 - 5 units 11/29/24 08:00 12/06/24 11:51 Insulin Aspart (*Bkc) 100 Units/Ml SUB-Q Not Given TIDWM BRE Protocol Losartan Potassium 50 mg 11/29/24 21:00 12/06/24 08:44 Losartan Potassium 50 Mg Tablet PO 50 mg Q12H BRE Administration Melatonin 5 mg 11/29/24 21:00 12/05/24 20:43 Melatonin 5 Mg Tablet PO 5 mg HS BRE Administration Ondansetron HCl 4 mg 11/28/24 20:05 Ondansetron Inj 4 Mg/2 Ml Vial IV PUSH Q4H PRN Nausea Pantoprazole Sodium 40 mg 11/30/24 09:00 12/06/24 08:45 Pantoprazole 40 Mg Tablet PO 40 mg QAM BRE Administration Sodium Chloride 10 ml 12/01/24 14:00 12/06/24 12:50 Central Line Flush IV PUSH 10 ml Q8HR BRE Administration Sodium Chloride 10 ml 12/01/24 09:42 Central Line Flush IV PUSH PRN PRN with TPN bag changes Sodium Chloride 20 ml 12/01/24 09:42 12/04/24 05:36 Central Line Flush IV PUSH 20 ml PRN PRN Administration after blood draws Sotalol HCl 120 mg 11/29/24 12:00 12/06/24 08:45 Sotalol Hcl 40 Mg Tablet PO 120 mg Q12HR BRE Administration Radiology Results: ITS Impressions Chest/Abdomen/Pelvis CT 11/30/24 13:27 IMPRESSION: 1. Prominent wall thickening along the distal transverse colon concerning for colon cancer. No lesion suspicious for metastatic disease. 2. Small right and [id number] left pleural effusions with associated atelectasis in the bilateral lower lobes, left greater than right. 3. Cardiomegaly enlargement of the central pulmonary arteries consistent with pulmonary arterial hypertension. 4. Moderate-sized bilateral fat-containing inguinal hernias. 5. Minimal nonspecific ascites in the deep pelvis. Chest X-Ray 12/04/24 21:13 IMPRESSION: Bilateral airspace disease suggestive of pneumonia versus pulmonary edema. Labs Labs: Laboratory Results - last 24 hr 12/05/24 12/05/24 12/06/24 16:59 21:01 05:23 PT INR APTT Sodium Potassium Chloride Carbon Dioxide Anion Gap BUN Creatinine Estim Creat Clear Calc Estimated GFR Glucose POC Capillary Glucose 159 H 227 H Calcium Phosphorus Albumin 2.2 L Triglycerides 12/06/24 12/06/24 12/06/24 05:25 08:32 11:36 PT INR APTT Sodium 131 L Potassium 3.9 Chloride 100 Carbon Dioxide 29 Anion Gap 2 L BUN 14 Creatinine 0.58 L Estim Creat Clear Calc 94 Estimated GFR > 60 Glucose 138 H POC Capillary Glucose 168 H 181 H Calcium 7.1 L Phosphorus 3.0 Albumin Triglycerides 51 12/06/24 12:53 PT 16.4 H INR 1.3 APTT 32.5 Sodium Potassium Chloride Carbon Dioxide Anion Gap BUN Creatinine Estim Creat Clear Calc Estimated GFR Glucose POC Capillary Glucose Calcium Phosphorus Albumin Triglycerides
[2024-12-06 17:08] LABS: Glucose Point of Care 155 mg/dl (65-105)
[2024-12-06] MEDS: MELATONIN 5 MG TABLET PO (21:17)
[2024-12-06] MEDS: ATORVASTATIN 40 MG TABLET PO (21:17)
[2024-12-07] VITALS (17 sets, daily range): BP systolic 114–142; BP diastolic 50–77; PULSE 71–80; RESP 10–20; TEMP 36.1–37.2; O2SAT 92–97
[2024-12-07] MEDS: PIPERACILLIN/TAZ 4.5G/NS 100ML 4.5 GM/100 ML BAG IVPB ×5 (00:46→23:37)
[2024-12-07] MEDS: CENTRAL LINE FLUSH 10 ML IV PUSH ×3 (05:41→21:49)
--- NOTE | 2024-12-07 06:51 | PC.NURSE ---
Pt had a 16 beat run of Keecker. Spoke with Dr. Funez added a mag level.
[2024-12-07 08:13] LABS: Glucose Point of Care 171 mg/dl (65-105)
[2024-12-07 08:13] LABS: Glucose Point of Care 136 mg/dl (65-105)
[2024-12-07 08:13] LABS: Glucose Point of Care 150 mg/dl (65-105)
[2024-12-07 08:37] LABS: Basophils Percent Auto 0.9 % (0.2-1.2); Eosinophils Absolute Auto 0.2 K/mm3 (0-0.3); Eosinophils Percent Auto 4.1 % (0-4.4); Hematocrit 30.3 % (42.0-52.0); Hemoglobin 9.1 g/dL (14.0-18.0); Immature Granulocyte Absolute 0.02 K/mm3 (0.00-0.031); Immature Granulocyte Percent A 0.4 % (0-0.5); Lymphocytes Absolute Auto 0.64 K/mm3 (0.9-3.2); Lymphocytes Percent Auto 13.8 % (18.3-44.2); Mean Corpuscular Hemoglobin 27.7 pg (26-34); Mean Corpuscular Volume 92.1 fl (80-100); Mean Platelet Volume 9.8 fl (7.4-10.4); Monocytes Absolute Auto 0.5 K/mm3 (0.1-0.6); Neutrophils Absolute Auto 3.2 K/mm3 (1.3-6.7); Neutrophils Percent Auto 69.8 % (45.5-73.1); Platelet Count Result 199 k/mm3 (150-375); Red Blood Count 3.29 M/mm3 (4.6-6.20); Red Cell Distribution Width 14.8 % (11.5-14.5); White Blood Count 4.6 K/mm3 (4.5-10.0)
[2024-12-07] MEDS: GABAPENTIN 300 MG CAPSULE PO (08:43)
[2024-12-07] MEDS: SOTALOL HCL 40 MG TABLET 120 MG PO ×2 (08:45→21:48)
[2024-12-07 09:06] LABS: INR 1.3; Prothrombin Time 16.3 Seconds (11.1-14.7)
[2024-12-07 09:07] LABS: Partial Thromboplastin Time 33.7 Seconds (22.3-36.8)
--- NOTE | 2024-12-07 10:32 | PCOTNOTE ---
Patient out of the room at this time. Per RN, Patient went down to surgery.
--- NOTE | 2024-12-07 10:50 | P.PNIM_ITS ---
Progress Note: A&P Assessment and Plan (1) Colonic mass: Code(s): K63.89 - Other specified diseases of intestine Status: Acute Assessment and Plan: * Colonoscopy 11/30: Completely-obstructing circumferential, fungating, friable, infiltrative, malignant appearing mass observed in ascending colon, approx 3- 4cm. Multiple biopsies taken * GI, Gen Surg, Heme/Onc following * CEA = 7.8 * PICC Line established, to start TPN for nutrition boost and to increase Albumin * TPN and Ensure for nutrition supplementation * He is afebrile at this time with continued lack of bacterial growth on blood cultures * scheduled for a hand-assisted laparoscopic right hemicolectomy by Dr. Haney for today (2) Anemia: Qualifiers: Anemia type: iron deficiency Iron deficiency anemia type: unspecified iron deficiency Qualified Code(s): D50.9 - Iron deficiency anemia, unspecified Code(s): D64.9 - Anemia, unspecified Status: Acute Assessment and Plan: * 1 RBC 11/29 * Telemetry monitoring * Anemia workup, unable do iron panel due to transfusion * Colonoscopy and EGD yesterday, see above * Stable * Likely related to colonic mass * Hgb 6.4 12/03: Transfused 2 units PRBC * Stable, Hgb 10.1 (3) Fever: Code(s): R50.9 - Fever, unspecified Status: Acute Assessment and Plan: * Spiked fever of 102.4F on 12/04 * UA wnl, BC pending * CXR 12/04: bibasilar airspace disease concerning for pneumonia * Benign physical exam, no SOB, leukocytosis, or hypoxia * Started on Vanc + Zosyn, d/c Vanc as nasal MRSA (-) * Monitor BCs and WBC (4) Afib: Code(s): I48.91 - Unspecified atrial fibrillation Status: Acute Assessment and Plan: * Continue sotalol * stable (5) Diabetes: Code(s): E11.9 - Type 2 diabetes mellitus without complications Status: Acute Assessment and Plan: * Hold metformin * Diabetic diet * A Accu-Cheks a.c. HS * SSI (6) Weakness: Code(s): R53.1 - Weakness Status: Acute Assessment and Plan: * PT and OT * Ensure t.i.d. * PICC line inserted on 12/01 * TPN for further supplementation (7) Edema: Code(s): R60.9 - Edema, unspecified Status: Acute Assessment and Plan: * Continue IV Lasix * Request outside records (8) Acute UTI: Code(s): N39.0 - Urinary tract infection, site not specified Status: Acute Assessment and Plan: * Could be a factor in weakness * Culture showed Klebsiella growth with Rocephin susceptibility * Rocephin completed Resolved (9) HTN (hypertension): Code(s): I10 - Essential (primary) hypertension Status: Acute Assessment and Plan: * Continue cozaar * stable Time Spent With Patient Time with patient: Greater than 35 minutes Subjective Date/time seen: 12/07/24 10:50 Interval history: 79-year-old male past history of history of CABG and pacemaker, atrial fibrillation, GERD, high cholesterol on Lasix presents the hospital with complaints of swelling of hands and feet and not being able to walk. 11/30/2024 and was found to have a completely obstructive fungating mass in the ascending colon measuring 3-4 cm. Pathology of the mass is reported as necrotic specimen with some high-grade dysplasia. A comment is made by pathologist that this is no doubt an invasive malignancy and the specimen is only on from the top of the tumor. Plan for surgery today with Dr. Haney Review of Systems Review of Systems: 12 systems were reviewed and are negativ e except for as per HPI. Exam Narrative: General: chronic illl appearing, appears older than stated age. HEENT: normocephalic, atraumatic. Mucous membranes moist. EOMI, PERRLA, bilateral sclera anicteric, no conjunctival injection. Neck supple without JVD, lymphadenopathy, or bruit. Respiratory: clear to ascultation bilaterally. No rales/rhonic/wheezes. Cardiovascular: Regular rate and rhythm, normal S1-S2 upon ascultation. No murmurs, rubs, or clicks. PMI is nondisplaced, capillary refill less than 3 second. Abdomen: Soft, round, no pulsatile masses, nondistended and nontender. No rebound, no guarding. No CVA tenderness, no hepatosplenomegaly. Bowel sounds present to all four quadrants. No high pitch or tinkling sounds, resonant to percussion. Extremities: No cyanosis, clubbing, or edema present. Pulses are palpable 2/2. Active ROM to all four extremities. Neuro: Alert and orientated x 4. PERRLA. Cranial nerves 2-12 intact without focal deficit. Skin: Warm, dry, and intact, without rash, erythema, or lesion. Psych: pleasant, cooperative, normal speech, normal affect, no hallucinations, no dysarthia Objective Data Vital Signs Vital Signs: Vital Signs - 24 hr 12/06/24 12:00 12/06/24 14:00 12/06/24 16:00 Temperature 97.5 F L Pulse Rate 75 72 76 Respiratory Rate 18 Blood Pressure 149/58 H Pulse Oximetry 100 Oxygen Delivery 12/06/24 20:00 12/06/24 20:00 12/06/24 22:00 Temperature 98.1 F Pulse Rate 76 74 Respiratory Rate 18 Blood Pressure 140/62 Pulse Oximetry 96 Oxygen Delivery Room Air 12/07/24 00:00 12/07/24 04:00 12/07/24 06:00 Temperature 97.4 F L Pulse Rate 76 76 71 Respiratory Rate 18 Blood Pressure 142/66 H Pulse Oximetry 96 Oxygen Delivery 12/07/24 08:00 12/07/24 08:45 Temperature Pulse Rate 76 Respiratory Rate Blood Pressure Pulse Oximetry Oxygen Delivery Room Air Intake/Output Intake/Output: Intake & Output 04/2712/05/24 12/06/24 12/07/24 23:59 23:59 23:59 23:59 Intake Total 2432.5 3033.3 3148 1100 Output Total 1350 3900 3150 300 Balance 1082.5 -866.7 -2 800 Meds/Results Medications: Active Medications Generic Name Dose Route Start Last Admin Trade Name Shaileshq PRN Reason Stop Dose Admin Acetaminophen 650 mg 11/28/24 20:05 12/05/24 16:40 Acetaminophen 325 Mg Tablet PO 650 mg Q4H PRN Administration Mild Pain (1-3) or Fever Alteplase, Recombinant 2 mg 12/05/24 14:04 12/05/24 14:26 Alteplase 2 Mg Vial (Cathflo) IV PUSH 2 mg ONCE PRN Administration Line Occlusion Atorvastatin Calcium 40 mg 11/29/24 21:00 12/06/24 21:17 Atorvastatin 40 Mg Tablet PO 40 mg HS BRE Administration Calcium Carbonate 500 mg 12/06/24 08:00 12/07/24 08:35 Calcium Carbonate (Oscal) 500 Mg Tablet PO Not Given BIDWM BRE Dextrose 12.5 gm 11/29/24 02:22 Dextrose 50% 25 Gm/50 Ml Syringe IV PUSH PRN PRN Hypoglycemia Protocol Ferrous Sulfate 325 mg 11/30/24 09:00 12/06/24 08:44 Ferrous Sulfate [address] BY MOUTH 325 mg DAILY BRE Administration Furosemide 40 mg 11/30/24 09:00 12/06/24 08:44 Furosemide 40 Mg Tablet PO 40 mg DAILY BRE Administration Gabapentin 300 mg 11/29/24 13:00 12/07/24 08:43 Gabapentin 300 Mg Capsule PO 300 mg TID BRE Administration Glucose 15 gm 11/29/24 02:22 Glucose Oral Gel 15 Gm Of Glucse In 37.5 Gm Tube PO PRN PRN Hypoglycemia Protocol Dextrose 1,000 mls @ 100 mls/hr 11/29/24 02:22 Dextrose 5% 1,000 Ml IVPB PRN PRN Hypoglycemia Protocol Dextrose 1,000 mls @ 50 mls/hr 12/01/24 08:14 Dextrose 10% IV CONT .Q20H PRN if PN is interrupted Multivitamins 1.25 ml/ 1,002.5 mls @ 40 mls/hr 12/01/24 12:00 12/06/24 12:50 Multivitamins 1.25 ml/ Amino IV CONT 40 mls/hr Acids/Electrolytes/Dextrose .Q24H BRE Administration Protocol Fat Emulsion Intravenous 250 mls @ 20.833 mls/hr 12/01/24 12:00 12/06/24 12:51 Lipids 20% IVPB 20.8 mls/hr Q24H BRE Administration Piperacillin Sod/Tazobactam Sod 4.5 gm in 100 mls @ 200 mls/hr 12/05/24 08:00 12/07/24 05:41 Zosyn 4.5 Gm/Ns 100 Ml IVPB 200 mls/hr Q6HR BRE Administration Insulin Aspart 1 - 2 units 11/29/24 21:00 12/06/24 21:17 Insulin Aspart (*Bkc) 100 Units/Ml SUB-Q Not Given HS [facility] Protocol Insulin Aspart 2 - 5 units 11/29/24 08:00 12/07/24 08:45 Insulin Aspart (*Bkc) 100 Units/Ml SUB-Q Not Given TIDWM [facility] Protocol Losartan Potassium 50 mg 11/29/24 21:00 12/07/24 08:35 Losartan Potassium 50 Mg Tablet PO Not Given Q12H BRE Melatonin 5 mg 11/29/24 21:00 12/06/24 21:17 Melatonin 5 Mg Tablet PO 5 mg HS BRE Administration Ondansetron HCl 4 mg 11/28/24 20:05 Ondansetron Inj 4 Mg/2 Ml Vial IV PUSH Q4H PRN Nausea Pantoprazole Sodium 40 mg 11/30/24 09:00 12/07/24 08:35 Pantoprazole 40 Mg Tablet PO Not Given QAM BRE Sodium Chloride 10 ml 12/01/24 14:00 12/07/24 05:41 Central Line Flush IV PUSH 10 ml Q8HR BRE Administration Sodium Chloride 10 ml 12/01/24 09:42 Central Line Flush IV PUSH PRN PRN with TPN bag changes Sodium Chloride 20 ml 12/01/24 09:42 12/04/24 05:36 Central Line Flush IV PUSH 20 ml PRN PRN Administration after blood draws Sotalol HCl 120 mg 11/29/24 12:00 12/07/24 08:45 Sotalol Hcl 40 Mg Tablet PO 120 mg Q12HR BRE Administration Radiology Results: ITS Impressions Chest/Abdomen/Pelvis CT 11/30/24 13:27 IMPRESSION: 1. Prominent wall thickening along the distal transverse colon concerning for colon cancer. No lesion suspicious for metastatic disease. 2. Small right and [id number] left pleural effusions with associated atelectasis in the bilateral lower lobes, left greater than right. 3. Cardiomegaly enlargement of the central pulmonary arteries consistent with pulmonary arterial hypertension. 4. Moderate-sized bilateral fat-containing inguinal hernias. 5. Minimal nonspecific ascites in the deep pelvis. Chest X-Ray 12/04/24 21:13 IMPRESSION: Bilateral airspace disease suggestive of pneumonia versus pulmonary edema. Labs Labs: Laboratory Results - last 24 hr 12/06/24 12/06/24 12/06/24 11:36 12:53 17:02 WBC RBC Hgb Hct MCV MCH MCHC RDW Plt Count MPV Immature Gran % (Auto) Neut % (Auto) Lymph % (Auto) Vance % (Auto) Eos % (Auto) Baso % (Auto) Lymph # (Auto) Vance # (Auto) Eos # (Auto) Baso # (Auto) Abs Immat Gran (auto) Absolute Neuts (auto) Absolute Nucleated RBC Nucleated RBC % PT 16.4 H INR 1.3 APTT 32.5 POC Capillary Glucose 181 H 155 H 12/06/24 12/07/24 12/07/24 21:14 01:39 07:21 WBC RBC Hgb Hct MCV MCH MCHC RDW Plt Count MPV Immature Gran % (Auto) Neut % (Auto) Lymph % (Auto) Vance % (Auto) Eos % (Auto) Baso % (Auto) Lymph # (Auto) Vance # (Auto) Eos # (Auto) Baso # (Auto) Abs Immat Gran (auto) Absolute Neuts (auto) Absolute Nucleated RBC Nucleated RBC % PT INR APTT POC Capillary Glucose 171 H 150 H 136 H 12/07/24 08:31 WBC 4.6 RBC 3.29 L Hgb 9.1 L Hct 30.3 L MCV 92.1 MCH 27.7 MCHC 30.0 L RDW 14.8 H Plt Count 199 MPV 9.8 Immature Gran % (Auto) 0.4 Neut % (Auto) 69.8 Lymph % (Auto) 13.8 L Vance % (Auto) 11.0 H Eos % (Auto) 4.1 Baso % (Auto) 0.9 Lymph # (Auto) 0.64 L Vance # (Auto) 0.5 Eos # (Auto) 0.2 Baso # (Auto) 0.0 Abs Immat Gran (auto) 0.02 Absolute Neuts (auto) 3.2 Absolute Nucleated RBC 0.000 Nucleated RBC % 0.0 PT 16.3 H INR 1.3 APTT 33.7 POC Capillary Glucose Quality VTE Prophylaxis VTE prophylaxis: mechanical ordered
[2024-12-07 11:13] LABS: Glucose Point of Care 108 mg/dl (65-105)
[2024-12-07 11:21] LABS: Alanine Aminotransferase 61 U/L (6-50); Albumin Level 2.4 g/dL (3.5-5.1); Alkaline Phosphatase 70 U/L (38-126); Anion Gap 2 mmol/L (4-12); Aspartate Amino Transferase 80 U/L (17-59); Bilirubin,Total 0.5 mg/dL (0.2-1.3); Blood Urea Nitrogen 11 mg/dL (9-20); Calcium 7.6 mg/dL (8.4-10.2); Carbon Dioxide 31 mmol/L (22-30); Chloride 99 mmol/L (98-107); Estimated CRCL calculation 84 ml/min; Estimated Glomerular Filt Rate > 60; Glucose 130 mg/dL (65-110); Magnesium 2.3 mg/dL (1.6-2.3); Phosphorus 3.2 mg/dL (2.5-4.5); Potassium 4.1 mmol/L (3.4-5.0); Sodium 132 mmol/L (137-145)
--- NOTE | 2024-12-07 12:26 | WPDHPUPDATE1 ---
History and Physical Update Update Date/Time: 12/07/24 12:26 History and Physical has been reviewed, including an updated exam of the patient. There are NO changes in the patient's condition. Risks, benefits, and alternatives have been discussed and questions answered. Patient agrees to proceed with procedure.
--- NOTE | 2024-12-07 12:29 | PCPTNOTE ---
Patient out of room for surgery unable to be seen for PT today. PT will await further orders to resume PT.
--- NOTE | 2024-12-07 12:54 | P.PNAN_ITS ---
Anes - Initial Pre Proc Eval Procedure: Operation Date: 11/30/24 15:00 Proposed Procedures p Esophagogastroduodenoscopy & Colonoscopy - Robin Sanchez MD Operation Date: 12/05/24 09:30 Proposed Procedures p Robotic Assisted Laparoscopic Right Lopez-Colectomy, Possible Open - Manjinder Haney MD Operation Date: 12/07/24 12:00 Proposed Procedures p Hand Assisted Laparoscopic Right Hemicolectomy, Possible Open - Manjinder Haney MD Date/Time: 12/07/24 12:54 Surgeon: Judah Jacobs PA-C Pre Op Diagnosis: Peripheral edema, Anemia, Generalized weakness, UT Patient Data Age: 79 Gender: M Height: 1.83 m Weight: 81.1 kg Last Vital Signs Temp 99 F 12/07/24 11:10 Pulse 75 12/07/24 11:10 Resp 18 12/07/24 06:00 BP 136/75 12/07/24 11:10 Pulse Ox 97 12/07/24 11:10 O2 Del Method Room Air 12/07/24 11:10 FiO2 21 11/29/24 20:55 Allergies Allergy/AdvReac Type Severity Reaction Status Date / Time No Known Allergies Allergy Verified 12/07/24 11:08 Home Medications ?Medication ?Instructions ?Recorded ?Confirmed ?Type acetaminophen 500 mg tablet 1,000 mg PO Q8H 09/05/24 11/28/24 History apixaban 5 mg tablet 5 mg PO BID 09/05/24 11/28/24 History aspirin 81 mg chewable tablet 81 mg PO DAILY 09/05/24 11/28/24 History atorvastatin 40 mg tablet (Lipitor) 40 mg PO HS 09/05/24 11/28/24 History cholecalciferol (vitamin D3) 25 2,000 unit PO DAILY 09/05/24 11/28/24 History mcg (1,000 unit) tablet cyanocobalamin (vitamin B-12) 1,000 mcg PO DAILY 09/05/24 11/28/24 History 1,000 mcg tablet ferrous sulfate 325 mg (65 mg 325 mg PO DAILY 09/05/24 11/28/24 History iron) tablet gabapentin 300 mg capsule 300 mg PO TID 09/05/24 11/28/24 History lidocaine 5 % topical patch 2 patch topical Q24H 09/05/24 11/28/24 History pantoprazole 40 mg tablet,delayed 40 mg PO QAM 09/05/24 11/28/24 History release polyethylene glycol 3350 17 gram 17 g PO DAILY 09/05/24 11/28/24 History oral powder packet sennosides 8.6 mg tablet 17.2 mg PO DAILY 09/05/24 11/28/24 History oxycodone 5 mg tablet 5 mg PO Q6H PRN pain rated 1-10 09/19/24 11/28/24 Rx #28 tabs calcium carbonate (Antacid Calcium) 430 mg PO HS 11/28/24 11/28/24 History cetirizine 10 mg tablet (24Hour 10 mg PO DAILY 11/28/24 11/28/24 History Allergy) fluticasone propionate 50 1 spray intranasal DAILY 11/28/24 11/28/24 History mcg/actuation nasal spray,suspension (Flonase Allergy Relief) furosemide 20 mg tablet (Lasix) 40 mg PO DAILY 11/28/24 11/28/24 History guaifenesin 600 mg tablet, 600 mg PO Q12H PRN congestion 11/28/24 11/28/24 History extended release 12 hr (Mucinex) losartan 50 mg tablet 50 mg PO Q12H 11/28/24 11/28/24 History melatonin 5 mg capsule 5 mg PO HS 11/28/24 11/28/24 History metformin 750 mg tablet,extended 750 mg PO QPM 11/28/24 11/28/24 History release 24 hr potassium chloride 10 mEq 20 meq PO DAILY 11/28/24 11/28/24 History tablet,extended release (Klor-Con) sotalol 120 mg tablet 120 mg PO Q12H 11/28/24 11/28/24 History Laboratory Tests 12/06/24 12/06/24 12/06/24 12:53 17:02 21:14 WBC RBC Hgb Hct MCV MCH MCHC RDW Plt Count MPV Immature Gran % (Auto) Neut % (Auto) Lymph % (Auto) Garrett % (Auto) Eos % (Auto) Baso % (Auto) Lymph # (Auto) Garrett # (Auto) Eos # (Auto) Baso # (Auto) Abs Immat Gran (auto) Absolute Neuts (auto) Absolute Nucleated RBC Nucleated RBC % PT 16.4 H Seconds (11.1-14.7) INR 1.3 APTT 32.5 Seconds (22.3-36.8) Sodium Potassium Chloride Carbon Dioxide Anion Gap BUN Creatinine Estim Creat Clear Calc Estimated GFR Glucose POC Capillary Glucose 155 H mg/dl 171 H mg/dl (65-105) (65-105) Calcium Phosphorus Magnesium Total Bilirubin AST ALT Alkaline Phosphatase Total Protein Albumin 12/07/24 12/07/24 12/07/24 01:39 07:21 08:31 WBC 4.6 K/mm3 (4.5-10.0) RBC 3.29 L M/mm3 (4.6-6.20) Hgb 9.1 L g/dL (14.0-18.0) Hct 30.3 L % (42.0-52.0) MCV 92.1 fl (80-100) MCH 27.7 pg (26-34) MCHC 30.0 L g/dl (32-36) RDW 14.8 H % (11.5-14.5) Plt Count 199 k/mm3 (150-375) MPV 9.8 fl (7.4-10.4) Immature Gran % (Auto) 0.4 % (0-0.5) Neut % (Auto) 69.8 % (45.5-73.1) Lymph % (Auto) 13.8 L % (18.3-44.2) Garrett % (Auto) 11.0 H % (2.6-8.5) Eos % (Auto) 4.1 % (0-4.4) Baso % (Auto) 0.9 % (0.2-1.2) Lymph # (Auto) 0.64 L K/mm3 (0.9-3.2) Garrett # (Auto) 0.5 K/mm3 (0.1-0.6) Eos # (Auto) 0.2 K/mm3 (0-0.3) Baso # (Auto) 0.0 K/mm3 (0.0-0.1) Abs Immat Gran (auto) 0.02 K/mm3 (0.00-0.031) Absolute Neuts (auto) 3.2 K/mm3 (1.3-6.7) Absolute Nucleated RBC 0.000 K/mm3 (0.0-0.012) Nucleated RBC % 0.0 % (0.0-0.2) PT 16.3 H Seconds (11.1-14.7) INR 1.3 APTT 33.7 Seconds (22.3-36.8) Sodium Potassium Chloride Carbon Dioxide Anion Gap BUN Creatinine Estim Creat Clear Calc Estimated GFR Glucose POC Capillary Glucose 150 H mg/dl 136 H mg/dl (65-105) (65-105) Calcium Phosphorus Magnesium Total Bilirubin AST ALT Alkaline Phosphatase Total Protein Albumin 12/07/24 12/07/24 10:14 10:58 WBC RBC Hgb Hct MCV MCH MCHC RDW Plt Count MPV Immature Gran % (Auto) Neut % (Auto) Lymph % (Auto) Garrett % (Auto) Eos % (Auto) Baso % (Auto) Lymph # (Auto) Garrett # (Auto) Eos # (Auto) Baso # (Auto) Abs Immat Gran (auto) Absolute Neuts (auto) Absolute Nucleated RBC Nucleated RBC % PT INR APTT Sodium 132 L mmol/L (137-145) Potassium 4.1 mmol/L (3.4-5.0) Chloride 99 mmol/L (98-107) Carbon Dioxide 31 H mmol/L (22-30) Anion Gap 2 L mmol/L (4-12) BUN 11 mg/dL (9-20) Creatinine 0.66 L mg/dL (0.7-1.3) Estim Creat Clear Calc 84 ml/min Estimated GFR > 60 (59 - ) Glucose 130 H mg/dL (65-110) POC Capillary Glucose 108 H mg/dl (65-105) Calcium 7.6 L mg/dL (8.4-10.2) Phosphorus 3.2 mg/dL (2.5-4.5) Magnesium 2.3 mg/dL (1.6-2.3) Total Bilirubin 0.5 mg/dL (0.2-1.3) AST 80 H U/L (17-59) ALT 61 H U/L (6-50) Alkaline Phosphatase 70 U/L (38-126) Total Protein 5.0 L g/dL (6.3-8.2) Albumin 2.4 L g/dL (3.5-5.1) Patient hx anesthesia problems: none Family hx anesthesia problems: none Results Review: All pre-operative results and documents have been reviewed as part of the pre- operative evaluation. PMFSH Past Medical History Medical History Iron deficiency anemia CAD (coronary artery disease) Prostate cancer sp prostatectomy Pacemaker Hypocalcemia HTN (hypertension) Afib Age related osteoporosis Hemothorax with pneumothorax, traumatic Urinary retention Recurrent falls Cachexia Protein calorie malnutrition Malaise and fatigue Surgical History Surgical History Hx of CABG Previous back surgery H/O prostatectomy Family History Family History Father Acute myocardial infarction Mother Diabetes mellitus Social History Social History Smoking packs per day: 1 Smoking cigarettes per day: 20.0 Years smoked: 30 Smoking pack-years: 30.00 Smoking status: Former smoker Tobacco type: cigarettes Alcohol intake: never Substance use: never Do You Feel Safe in your Home?: Yes Lack of Transportation: No Lack of Food: Never True Current Housing: I Have Housing Concerned About Future Housing: No Difficulty Paying Gas/Electric Bills: No Difficulty Paying for Meds: No Currently Unemployed: No Education: High School Diploma/GED Difficulty w/ Childcare or Family Care: No Spiritual care concerns: No Anes - Eval Final PreProcedure Day of Procedure 12/07/24 12:54 Patient weight: normal and thin Lungs: normal air movement Airway: Mallampati scale class II and special considerations (Edentulous. ) Neurological: alert and oriented Last oral intake: >/= 8 hours ASA classification: IV Emergent: no Anesthetic plan: proceed Anesthesia type and monitoring: general ETT and standard monitoring Results Review: All pre-operative results and documents have been reviewed as part of the pre- operative evaluation. Complicated hx reviewed w pt and and daughter. HTN, CAD s/p CABG, pacemaker 2003, afib. Pt ex smoker quit 1984, malnutrition due to asc colonic mass. Discussed additional IVs, poss art line, poss post op mech vent and ICU admission w pt and family who understand and wish to proceed. Informed Consent: The patient's anesthetic plan and its attendant risks and benefits were discussed with the patient/family/POA. Questions were solicited and answers provided to the satisfaction of the patient/family/POA.
[2024-12-07] MEDS: BUPivacaine HCL 0.5% PF 30 ML VIAL INFILTRATE (16:17)
[2024-12-07] MEDS: LIDO 1%/EPINEPHRINE 1:100,000 20 ML VIAL 30 ML INFILTRATE (16:18)
[2024-12-07] MEDS: LACTATED RINGERS 1,000 ML 30 ML IV CONT ×2 (16:48→16:49)
[2024-12-07 17:11] LABS: Glucose Point of Care 150 mg/dl (65-105)
[2024-12-07] MEDS: AMINO ACIDS 5%/D15W/E-LYTES/CA 1,000 ML with MULTIVITAMINS-12 INJ VIAL 1 1.25 ML, MULTI... 40 ML IV CONT (18:35)
[2024-12-07] MEDS: FAT EMULSIONS IV 20% 250 ML 20.8 ML IVPB (18:42)
[2024-12-07] MEDS: IBUPROFEN IV 800 MG/200 ML 800 MG/200 ML BAG 400 MG IVPB (18:47)
--- NOTE | 2024-12-07 19:41 | P.OP_ITS ---
Procedure Note - Detailed Date of Procedure 12/07/24 Pre-op Diagnosis Near obstructing right colon mass Post-op Diagnosis Other (Near obstructing mid transverse colonic mass) Procedure Performed Hand assisted laparoscopic converted to open transverse colonic resection with [id number] isoperistaltic hand-sewn colonic anastomosis. Surgeon Manjinder Haney MD Anesthesia General Indications Patient is a 79-year-old gentleman who was admitted to the hospital with anasarca and weakness and swelling. He also found to be profoundly anemic with hemoglobin below 7. He was then transfused with packed red blood cells to achieve adequate level of blood. He underwent colonoscopy showing a near obstructing mass which was on endoscopy report to be in the right ascending colon. It was tattooed. 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 He was also malnourished and he was given 6 days of TPN before in addition to ensure supplements to improve his nutritional state. He now presents for an attempted a hand assisted laparoscopic resection of the mass. Findings Endoscopy report suggested the patient had a ascending right colon near obstructing mass. At the time of surgery the mass is noted to be in the mid transverse colon. It was large measuring about the size of a baseball. By visualization and palpation there was no suspicious masses and either lobes of the liver. There is no peritoneal studding noted. There is no fixation of the mass to the mesentery, stomach, or any other surrounding visceral organs. The omentum did not appear to have any studding the tumor was large but did not obviously have any extension through the wall grossly. A generous portion of the mesentery to the mid transverse colon was also resected. No palpable enlarged lymph nodes were noted. Description of Procedure After informed consent was obtained patient brought to the operating room was placed supine position and general endotracheal anesthesia was administered. A Mir catheter was placed decompress the bladder an orogastric tube was placed decompress the stomach. A time-out was then performed correctly identifying the patient as well as procedure to be performed. He was already given antibiotics prior to coming to the operating. I then started by placing a 5mm port in the left upper quadrant of the abdomen. Once inside the abdomen insufflated to adequate pneumoperitoneum of 15mmHg of CO2. As the possibly report suggested that the tumor was in the right ascending colon I tried to visualize the right side of the abdomen and could not see any tattooing in the cecum, right ascendi ng colon, or the proximal transverse colon. There was no evidence of peritoneal studding throughout the abdomen. No masses worsen visualized in the liver. As I could not readily identify where the tumor was by laparoscopy I then decided to try find the mass by palpation. As I was going to attempt performed the surgery with a hand assisted laparoscopic approach I then made a 7cm midline incision in the mid epigastric region of the abdomen. A scalp was used to make the initial incision down through the dermis and electrocautery was used to dissect down through the subcutaneous tissues and down through the midline fascia. Once the abdomen was entered the pneumoperitoneum decompressed and I placed a GelPort through the incision. I then placed 1 hand into the abdomen and with laparoscopic start to palpate the cecum, ascending right colon, and proximal transverse colon. I could not palpate any suspicious masses in those portions of the colon. I reflected the omentum back above the stomach and then continue palpating the transverse colon and ended up palpating a large mass in the mid transverse colon just to the left of the upper midline. It appears that the mass was actually in the mid transverse colon rather than the right ascending colon. It was freely movable. It was not fixed to the mesentery or retroperitoneal structures. The did not appear to be an extension of tumor to the surrounding viscera. The omentum appeared to be without any direct extension or omental metastatic deposits. Again there is no evidence of peritoneal studding. The mass was approximately size of a baseball. Has now found the mass was essentially just above the superior portion of my hand port incision I decided to a abort the laparoscopic hand assisted approach and just extend the hand port incision to a relatively limited epigastric midline incision and performed the rosales colon resection via open technique. The hand port was then removed from the abdomen and removed. I then placed a bowel for self retaining retractor to aid with exposure. As the transverse colon and omentum were redundant I was able to easily exteriorized through the midline incision the transverse colon. I then divided the anterior leaf of the omentum off of the transverse colon to enter the lesser sac. There is no evidence of extension of the tumor to the posterior wall the stomach. I then divided the omentum off of the transverse colon proximally to the hepatic flexure and distally to the splenic flexure. I then measured approximately 5cm proximal to the mass on the colon and then made a defect through the mesentery to the transverse colon with electrocautery. A 75mm GILMA stapler was then used to divide the transverse colon at this resection point. Distal to the mass I again measured approximately 5cm distal to the mass and made a defect through the mesocolon in this area and then with a reload to the 75mm GI stapler divided the colon distal to the mass. I then divided the mesentery between these 2 resection points deep down towards the root of the mesentery to obtain as many lymph nodes as I could. I did some of the division of the mesentery with the LigaSure device but the main trunk of the middle colic artery was clamped and divided and suture ligated with a 2-0 silk suture. In the mesentery I did not palpate any enlarged lymph nodes. The segment of transverse colon was then marked with a suture on the proximal staple line and sent to pathology for examination. Identified the duodenum and made sure that I did not injure this during the division of the mesentery. Due to the redundancy of the transverse colon I could easily bring the 2 ends together any tension. I decided to perform a [id number] isoperistaltic hand-sewn colocolonic anastomosis. Two ends of the colon were then brought in approximation overlapping each other. 3- 0 silk sutures were then used to approximate the serosal surfaces of the ends of the colon in isoperistaltic fashion. A posterior row of interrupted 3-0 silk sutures were then placed with good serosal bites. I then utilized electrocautery to make a colotomies and both ends of the colon a couple of mm away from the posterior 0 silk sutures. I then placed 2 separate 3-0 chromic sutures in the posterior wall the anastomosis making sure I got good serosal mucosa in each bite. They were then run in a bidirectional locking fashion to the corners were transitions sutures bites were obtained around the corner and then I inverted the anterior edges of the colon in the anastomosis by placing a running nonlocking [place] sutures. Once the anterior wall the anastomosis was complete a 2 chromic sutures were then tied to each other. I then further reinforced the anterior wall the anastomosis apply placement of interrupted 3-0 silk sutures in [place] fashion. Anastomosis was widely patent by palpation admitting the tips of 2 fingers. The anastomosis appeared to be completely well perfused without any ischemia. There was no tension on the anastomosis. I then proceeded to inspect the mesentery and there was no bleeding from the edges of the cut mesentery. I then pulled the omentum down over the transverse colon and the anastomosis. I then proceeded to close the midline incision utilizing a looped #1 PDS suture. One suture was started each of the incision and then around to the met in the middle and then they were tied to each other. The subcutaneous tissues then irrigated sterile saline solution. The skin edges of the midline incision was then closed utilizing a running subcuticular 4-0 Monocryl suture. Two port sites in the left abdominal wall were then closed with 0 Vicryl sutures the fascial layer. The skin edges were approximated utilizing a running subcuticular 4 Monocryl as well. Skin glue was then applied all the incisions. The patient tolerated the procedure well no complications. All sponges, needles, and instrument counts were correct at the end procedure. EBL was _ 50 __cc. T he patient was awakened and taken to recovery in stable and satisfactory condition. Implants None Estimated Blood Loss 50 Urine Output 300 Drains No Packing No Pathology Yes (Segment of mid transverse colon containing large near obstructing mass sent to pathology with attached it transverse colonic mesentery. Suture marked the proximal resection staple line.) Complications No immediate complications Condition Stable Disposition PACU [facility] Billing Surgery - Charge Forward: Surgery Billing
[2024-12-07] MEDS: LOSARTAN POTASSIUM 50 MG TABLET PO (21:48)
[2024-12-07] MEDS: ATORVASTATIN 40 MG TABLET PO (21:48)
[2024-12-07] MEDS: MELATONIN 5 MG TABLET PO (21:48)
[2024-12-07] MEDS: INSULIN ASPART (*BKC) 100 UNITS/ML SUB-Q (21:55)
[2024-12-08] VITALS (11 sets, daily range): BP systolic 101–127; BP diastolic 53–68; PULSE 74–76; RESP 18; TEMP 35.8–36.6; O2SAT 95–98
[2024-12-08 01:22] LABS: Glucose Point of Care 213 mg/dl (65-105)
[2024-12-08 01:22] LABS: Glucose Point of Care 205 mg/dl (65-105)
[2024-12-08] MEDS: IBUPROFEN IV 800 MG/200 ML 800 MG/200 ML BAG 400 MG IVPB ×3 (02:44→18:15)
[2024-12-08] MEDS: HYDROmorphone HCL INJ (*CRX) 2 MG/ML VIAL 1 MG IV PUSH (06:00)
[2024-12-08] MEDS: CENTRAL LINE FLUSH 10 ML IV PUSH ×3 (06:01→21:18)
[2024-12-08] MEDS: PIPERACILLIN/TAZ 4.5G/NS 100ML 4.5 GM/100 ML BAG IVPB ×4 (06:01→23:11)
[2024-12-08 06:13] LABS: Glucose Point of Care 212 mg/dl (65-105)
[2024-12-08 07:27] LABS: Basophils Percent Auto 0.4 % (0.2-1.2); Hematocrit 33.4 % (42.0-52.0); Immature Granulocyte Absolute 0.08 K/mm3 (0.00-0.031); Immature Granulocyte Percent A 0.7 % (0-0.5); Lymphocytes Absolute Auto 0.91 K/mm3 (0.9-3.2); Lymphocytes Percent Auto 8.1 % (18.3-44.2); Mean Corpuscular HGB Conc 29.9 g/dl (32-36); Mean Corpuscular Hemoglobin 27.5 pg (26-34); Monocytes Absolute Auto 0.6 K/mm3 (0.1-0.6); Monocytes Percent Auto 5.3 % (2.6-8.5); Neutrophils Absolute Auto 9.6 K/mm3 (1.3-6.7); Neutrophils Percent Auto 85.5 % (45.5-73.1); Platelet Count Result 290 k/mm3 (150-375); Red Blood Count 3.63 M/mm3 (4.6-6.20); Red Cell Distribution Width 15.1 % (11.5-14.5); White Blood Count 11.2 K/mm3 (4.5-10.0)
[2024-12-08 07:39] LABS: Alanine Aminotransferase 51 U/L (6-50); Albumin Level 2.6 g/dL (3.5-5.1); Alkaline Phosphatase 68 U/L (38-126); Anion Gap 6 mmol/L (4-12); Aspartate Amino Transferase 47 U/L (17-59); Bilirubin,Total 0.5 mg/dL (0.2-1.3); Blood Urea Nitrogen 15 mg/dL (9-20); Calcium 7.9 mg/dL (8.4-10.2); Carbon Dioxide 26 mmol/L (22-30); Chloride 101 mmol/L (98-107); Estimated CRCL calculation 81 ml/min; Estimated Glomerular Filt Rate > 60; Glucose 197 mg/dL (65-110); Magnesium 2.3 mg/dL (1.6-2.3); Phosphorus 4.7 mg/dL (2.5-4.5); Potassium 4.2 mmol/L (3.4-5.0); Sodium 133 mmol/L (137-145); Triglycerides 121 mg/dL (<150)
[2024-12-08 09:43] LABS: Glucose Point of Care 191 mg/dl (65-105)
[2024-12-08] MEDS: CALCIUM CARBONATE (OSCAL) 500 MG TABLET PO ×2 (09:43→18:09)
[2024-12-08] MEDS: LOSARTAN POTASSIUM 50 MG TABLET PO (09:43)
[2024-12-08] MEDS: PANTOPRAZOLE 40 MG TABLET PO (09:43)
[2024-12-08] MEDS: ENOXAPARIN 40 MG/0.4 ML SYRINGE SUB-Q (09:43)
[2024-12-08] MEDS: GABAPENTIN 300 MG CAPSULE PO ×3 (09:43→18:09)
[2024-12-08] MEDS: FUROSEMIDE 40 MG TABLET PO (09:43)
[2024-12-08] MEDS: FERROUS SULFATE 325 MG TABLET DR BY MOUTH (09:43)
[2024-12-08] MEDS: SOTALOL HCL 40 MG TABLET 120 MG PO (09:44)
--- NOTE | 2024-12-08 11:19 | PCOTNOTE ---
Attempted to see pt for OT re-evaluation following bowel surgery yesterday however RN asks to hold as pt is very confused today. Will continue to follow.
[2024-12-08] MEDS: AMINO ACIDS 5%/D15W/E-LYTES/CA 1,000 ML with MULTIVITAMINS-12 INJ VIAL 1 1.25 ML, MULTI... 40 ML IV CONT (12:03)
[2024-12-08 12:04] LABS: Glucose Point of Care 188 mg/dl (65-105)
[2024-12-08] MEDS: FAT EMULSIONS IV 20% 250 ML 20.8 ML IVPB (12:04)
--- NOTE | 2024-12-08 12:34 | PCPTNOTE ---
Attempted to see pt for PT re-evaluation. Nurse reports pt is very confused today and does not feel like it is safe for pt to participate in therapy at this time. Will continue to follow
[2024-12-08] MEDS: LIDOCAINE 5% PATCH 1 PATCH TRANSDERM (13:59)
--- NOTE | 2024-12-08 14:18 | PM.PNGS ---
Progress Note: A&P Assessment and Plan (1) Colonic mass: Code(s): K63.89 - Other specified diseases of intestine Status: Acute Assessment and Plan: Postop day 1 following hand-assisted laparoscopic converted to open transverse colonic resection. He had some confusion overnight but his mentation has improved through the day. Will continue clear liquids and TPN for now. He is getting Ensure clears with his meals. He can get up to the chair today if he is not having issues with confusion for safety purposes. PT/OT following. Pathology pending. Will repeat labs again tomorrow. (2) Protein calorie malnutrition: Code(s): E46 - Unspecified protein-calorie malnutrition Status: Acute Assessment and Plan: Continue TPN until tolerating a more substantial diet. Albumin 2.6 Plan I have discussed the patient's case and plan of care with Dr. Haney. Subjective Subjective Date/Time Seen: 12/08/24 14:18 Post Op day: 1 (Hand assisted laparoscopic converted to open transverse colonic resection with [id number] isoperistaltic hand-sewn colonic anastomosis) Patient reports: no new complaints, flatus and afebrile Interval history: The patient has been confused overnight and earlier this morning. He is more alert and oriented per nursing this afternoon. He denies having any abdominal pain or nausea. He is tolerating clear liquids well. No specific complaints at this time. He reports having a BM this morning, but unsure if this is accurate with his confusion. There are no bowel movements documented. He does report flatus. Exam Const: General: comfortable and no acute distress GI: Inspection: non-distended and incision (gauze dressing dry and intact) GI Palp: Yes Soft to palpation, Yes Tenderness to palpation present (GI) (expected incisional tenderness) and No Guarding due to palpation present (GI) Auscultation: Hypoactive bowel sounds present Urinary Catheter: Urinary Catheter: urine clear (external condom catheter) Extrem: General: no calf tenderness and no edema Objective Data Vital Signs Vital Signs: Vital Signs - 24 hr 12/07/24 16:48 12/07/24 17:00 12/07/24 17:15 Temperature 97.3 F L Pulse Rate 76 76 76 Respiratory Rate 10 L 12 12 Blood Pressure 139/76 134/52 L 125/50 L Pulse Oximetry 96 95 96 Oxygen Delivery Simple Face Mask Simple Face Mask Simple Face Mask Oxygen Flow Rate 8 8 10 Fraction of Inspired Oxygen 12/07/24 17:30 12/07/24 17:35 12/07/24 17:50 Temperature Pulse Rate 76 74 76 Respiratory Rate 12 12 14 Blood Pressure 125/77 124/69 117/65 Pulse Oximetry 92 92 92 Oxygen Delivery Nasal Cannula Nasal Cannula Nasal Cannula Oxygen Flow Rate 2 2 2 Fraction of Inspired Oxygen 12/07/24 17:59 12/07/24 18:21 12/07/24 20:00 Temperature 97.1 F L Pulse Rate 75 80 Respiratory Rate 14 Blood Pressure 114/72 Pulse Oximetry 93 97 Oxygen Delivery Nasal Cannula Nasal Cannula Room Air Oxygen Flow Rate 2 2 Fraction of Inspired Oxygen 12/07/24 20:00 12/07/24 20:25 12/07/24 21:56 Temperature 97 F L Pulse Rate 76 74 74 Respiratory Rate 20 18 Blood Pressure 114/63 Pulse Oximetry 95 94 Oxygen Delivery Nasal Cannula Oxygen Flow Rate 2 Fraction of Inspired Oxygen 28 12/08/24 00:00 12/08/24 01:29 12/08/24 04:00 Temperature 97.3 F L Pulse Rate 76 75 76 Respiratory Rate 18 Blood Pressure 107/58 L Pulse Oximetry 95 Oxygen Delivery Oxygen Flow Rate Fraction of Inspired Oxygen 12/08/24 05:59 12/08/24 09:44 12/08/24 14:02 Temperature 97.8 F 96.5 F L Pulse Rate 74 76 74 Respiratory Rate 18 18 Blood Pressure 127/68 120/63 Pulse Oximetry 98 98 Oxygen Delivery Oxygen Flow Rate Fraction of Inspired Oxygen Intake/Output Intake/Output: Intake & Output 12/05/24 12/06/24 12/07/24 12/08/24 23:59 23:59 23:59 23:59 Intake Total 3033.3 3148 3952.5 1888.7 Output Total 3900 3150 600 910 Balance -866.7 -2 3352.5 978.7 Meds/Results Medications: Active Medications Generic Name Dose Route Start Last Admin Trade Name Freq PRN Reason Stop Dose Admin Acetaminophen 650 mg 11/28/24 20:05 12/05/24 16:40 Acetaminophen 325 Mg Tablet PO 650 mg Q4H PRN Administration Mild Pain (1-3) or Fever Acetaminophen 1,000 mg 12/07/24 18:20 Acetaminophen 500 Mg Tablet PO Q6H PRN Mild Pain (1-3) or Fever Hydrocodone Bitart/Acetaminophen 1 tab 12/07/24 18:20 Hydrocodone/Acetaminophen (*Crx) 5-325 Mg Tablet PO Q4H PRN Pain Rated 4-6 Alteplase, Recombinant 2 mg 12/05/24 14:04 12/05/24 14:26 Alteplase 2 Mg Vial (Cathflo) IV PUSH 2 mg ONCE PRN Administration Line Occlusion Atorvastatin Calcium 40 mg 11/29/24 21:00 12/07/24 21:48 Atorvastatin 40 Mg Tablet PO 40 mg HS BRE Administration Calcium Carbonate 500 mg 12/06/24 08:00 12/08/24 09:43 Calcium Carbonate (Oscal) 500 Mg Tablet PO 500 mg BIDWM BRE Administration Dextrose 12.5 gm 11/29/24 02:22 Dextrose 50% 25 Gm/50 Ml Syringe IV PUSH PRN PRN Hypoglycemia Protocol Enoxaparin Sodium 40 mg 12/08/24 09:00 12/08/24 09:43 Enoxaparin 40 Mg/0.4 Ml Syringe SUB-Q 40 mg DAILY BRE Administration Fentanyl Citrate 25 mcg 12/07/24 17:06 Fentanyl Citrate Inj (*Crx) 100 Mcg/2 Ml Vial IV PUSH Q2M PRN Pain Ferrous Sulfate 325 mg 11/30/24 09:00 12/08/24 09:43 Ferrous Sulfate [address] BY MOUTH 325 mg DAILY BRE Administration Furosemide 40 mg 11/30/24 09:00 12/08/24 09:43 Furosemide 40 Mg Tablet PO 40 mg DAILY BRE Administration Gabapentin 300 mg 11/29/24 13:00 12/08/24 12:11 Gabapentin 300 Mg Capsule PO 300 mg TID BRE Administration Glucose 15 gm 11/29/24 02:22 Glucose Oral Gel 15 Gm Of Glucse In 37.5 Gm Tube PO PRN PRN Hypoglycemia Protocol Hydromorphone HCl 1 mg 12/07/24 18:20 12/08/24 06:00 Hydromorphone Hcl Inj (*Crx) 2 Mg/Ml Vial IV PUSH 1 mg Q4H PRN Administration Pain Rated 7-10 Dextrose 1,000 mls @ 100 mls/hr 11/29/24 02:22 Dextrose 5% 1,000 Ml IVPB PRN PRN Hypoglycemia Protocol Dextrose 1,000 mls @ 50 mls/hr 12/01/24 08:14 Dextrose 10% IV CONT .Q20H PRN if PN is interrupted Multivitamins 1.25 ml/ 1,002.5 mls @ 40 mls/hr 12/01/24 12:00 12/08/24 12:03 Multivitamins 1.25 ml/ Amino IV CONT 40 mls/hr Acids/Electrolytes/Dextrose .Q24H BRE Administration Protocol Fat Emulsion Intravenous 250 mls @ 20.833 mls/hr 12/01/24 12:00 12/08/24 12:04 Lipids 20% IVPB 20.8 mls/hr Q24H BRE Administration Piperacillin Sod/Tazobactam Sod 4.5 gm in 100 mls @ 200 mls/hr 12/05/24 08:00 12/08/24 12:01 Zosyn 4.5 Gm/Ns 100 Ml IVPB 200 mls/hr Q6HR BRE Administration Lactated Ringer's 1,000 mls @ 30 mls/hr 12/07/24 17:10 12/07/24 17:44 Lr - Lactated Ringers Iv IV CONT Infused .Q24H BRE Infusion Ibuprofen 800 mg in 200 mls @ 400 mls/hr 12/07/24 19:00 12/08/24 12:02 Caldolor 800 Mg/200 Ml IVPB 400 mls/hr Q8H BRE Administration Insulin Aspart 1 - 2 units 11/29/24 21:00 12/07/24 21:55 Insulin Aspart (*Bkc) 100 Units/Ml SUB-Q 1 units HS BRE Administration Protocol Insulin Aspart 2 - 5 units 11/29/24 08:00 12/08/24 12:12 Insulin Aspart (*Bkc) 100 Units/Ml SUB-Q Not Given TIDWM BRE Protocol Lidocaine 1 patch 12/08/24 09:00 12/08/24 13:59 Lidocaine 5% Patch TRANSDERM 1 patch DAILY BRE Administration Losartan Potassium 50 mg 11/29/24 21:00 12/08/24 09:43 Losartan Potassium 50 Mg Tablet PO 50 mg Q12H BRE Administration Melatonin 5 mg 11/29/24 21:00 12/07/24 21:48 Melatonin 5 Mg Tablet PO 5 mg HS BRE Administration Miscellaneous Information 1 each 12/08/24 00:01 Clinamix Needs To Be Renewed Or It Will Automatically Discontinue. XX 01/07/25 00:00 CLARIFY BRE Ondansetron HCl 4 mg 11/28/24 20:05 Ondansetron Inj 4 Mg/2 Ml Vial IV PUSH Q4H PRN Nausea Ondansetron HCl 4 mg 12/07/24 17:06 Ondansetron Inj 4 Mg/2 Ml Vial IV PUSH ONCE PRN Nausea Oxycodone HCl 5 mg 12/07/24 18:20 Oxycodone Hcl (*Crx) 5 Mg Tab Ir PO Q4H PRN Pain Rated 7-10 Pantoprazole Sodium 40 mg 11/30/24 09:00 12/08/24 09:43 Pantoprazole 40 Mg Tablet PO 40 mg QAM BRE Administration Sodium Chloride 10 ml 12/01/24 14:00 12/08/24 12:12 Central Line Flush IV PUSH 10 ml Q8HR BRE Administration Sodium Chloride 10 ml 12/01/24 09:42 Central Line Flush IV PUSH PRN PRN with TPN bag changes Sodium Chloride 20 ml 12/01/24 09:42 12/04/24 05:36 Central Line Flush IV PUSH 20 ml PRN PRN Administration after blood draws Sotalol HCl 120 mg 11/29/24 12:00 12/08/24 09:44 Sotalol Hcl 40 Mg Tablet PO 120 mg Q12HR BRE Administration Radiology Results: ITS Impressions Chest/Abdomen/Pelvis CT 11/30/24 13:27 IMPRESSION: 1. Prominent wall thickening along the distal transverse colon concerning for colon cancer. No lesion suspicious for metastatic disease. 2. Small right and [id number] left pleural effusions with associated atelectasis in the bilateral lower lobes, left greater than right. 3. Cardiomegaly enlargement of the central pulmonary arteries consistent with pulmonary arterial hypertension. 4. Moderate-sized bilateral fat-containing inguinal hernias. 5. Minimal nonspecific ascites in the deep pelvis. Chest X-Ray 12/04/24 21:13 IMPRESSION: Bilateral airspace disease suggestive of pneumonia versus pulmonary edema. Labs Labs: Laboratory Results - last 24 hr 12/07/24 12/07/24 12/08/24 17:09 21:55 00:49 WBC RBC Hgb Hct MCV MCH MCHC RDW Plt Count MPV Immature Gran % (Auto) Neut % (Auto) Lymph % (Auto) Sampson % (Auto) Eos % (Auto) Baso % (Auto) Lymph # (Auto) Sampson # (Auto) Eos # (Auto) Baso # (Auto) Abs Immat Gran (auto) Absolute Neuts (auto) Absolute Nucleated RBC Nucleated RBC % Sodium Potassium Chloride Carbon Dioxide Anion Gap BUN Creatinine Estim Creat Clear Calc Estimated GFR Glucose POC Capillary Glucose 150 H 205 H 213 H Calcium Phosphorus Magnesium Total Bilirubin AST ALT Alkaline Phosphatase Total Protein Albumin Triglycerides 12/08/24 12/08/24 12/08/24 06:09 07:12 09:41 WBC 11.2 H RBC 3.63 L Hgb 10.0 L Hct 33.4 L MCV 92.0 MCH 27.5 MCHC 29.9 L RDW 15.1 H Plt Count 290 MPV 10.0 Immature Gran % (Auto) 0.7 H Neut % (Auto) 85.5 H Lymph % (Auto) 8.1 L Sampson % (Auto) 5.3 Eos % (Auto) 0.0 Baso % (Auto) 0.4 Lymph # (Auto) 0.91 Sampson # (Auto) 0.6 Eos # (Auto) 0.0 Baso # (Auto) 0.0 Abs Immat Gran (auto) 0.08 H Absolute Neuts (auto) 9.6 H Absolute Nucleated RBC 0.000 Nucleated RBC % 0.0 Sodium 133 L Potassium 4.2 Chloride 101 Carbon Dioxide 26 Anion Gap 6 BUN 15 Creatinine 0.69 L Estim Creat Clear Calc 81 Estimated GFR > 60 Glucose 197 H POC Capillary Glucose 212 H 191 H Calcium 7.9 L Phosphorus 4.7 H Magnesium 2.3 Total Bilirubin 0.5 AST 47 ALT 51 H Alkaline Phosphatase 68 Total Protein 6.0 L Albumin 2.6 L Triglycerides 121 12/08/24 12:01 WBC RBC Hgb Hct MCV MCH MCHC RDW Plt Count MPV Immature Gran % (Auto) Neut % (Auto) Lymph % (Auto) Sampson % (Auto) Eos % (Auto) Baso % (Auto) Lymph # (Auto) Sampson # (Auto) Eos # (Auto) Baso # (Auto) Abs Immat Gran (auto) Absolute Neuts (auto) Absolute Nucleated RBC Nucleated RBC % Sodium Potassium Chloride Carbon Dioxide Anion Gap BUN Creatinine Estim Creat Clear Calc Estimated GFR Glucose POC Capillary Glucose 188 H Calcium Phosphorus Magnesium Total Bilirubin AST ALT Alkaline Phosphatase Total Protein Albumin Triglycerides
--- NOTE | 2024-12-08 17:54 | P.PNIM_ITS ---
Progress Note: A&P Assessment and Plan (1) Colonic mass: Code(s): K63.89 - Other specified diseases of intestine Status: Acute Assessment and Plan: * Colonoscopy 11/30: Completely-obstructing circumferential, fungating, friable, infiltrative, malignant appearing mass observed in ascending colon, approx 3- 4cm. Multiple biopsies taken * GI, Gen Surg, Heme/Onc following * CEA = 7.8 * PICC Line established, to start TPN for nutrition boost and to increase Albumin * TPN and Ensure for nutrition supplementation * He is afebrile at this time with continued lack of bacterial growth on blood cultures * scheduled for a hand-assisted laparoscopic right hemicolectomy by Dr. Haney 12/07 * Follow path from OR 12/07 (2) Anemia: Qualifiers: Anemia type: iron deficiency Iron deficiency anemia type: unspecified iron deficiency Qualified Code(s): D50.9 - Iron deficiency anemia, unspecified Code(s): D64.9 - Anemia, unspecified Status: Acute Assessment and Plan: * 1 RBC 11/29 * Telemetry monitoring * Anemia workup, unable do iron panel due to transfusion * Colonoscopy and EGD yesterday, see above * Stable * Likely related to colonic mass * Hgb 6.4 12/03: Transfused 2 units PRBC * Stable, Hgb 10.1 (3) Fever: Code(s): R50.9 - Fever, unspecified Status: Acute Assessment and Plan: Spiked fever of 102.4F on 12/04 * UA wnl, BC 12/04 no growth * CXR 12/04: bibasilar airspace disease concerning for pneumonia * Benign physical exam, no SOB, leukocytosis, or hypoxia * Started on Vanc + Zosyn, d/c Vanc as nasal MRSA (-) * Monitor BCs and WBC (4) Afib: Code(s): I48.91 - Unspecified atrial fibrillation Status: Acute Assessment and Plan: * Continue sotalol * stable (5) Diabetes: Code(s): E11.9 - Type 2 diabetes mellitus without complications Status: Acute Assessment and Plan: * Hold metformin * Diabetic diet * A Accu-Cheks a.c. HS * SSI (6) Weakness: Code(s): R53.1 - Weakness Status: Acute Assessment and Plan: * PT and OT * Ensure t.i.d. * PICC line inserted on 12/01 * TPN for further supplementation (7) Edema: Code(s): R60.9 - Edema, unspecified Status: Acute Assessment and Plan: * Continue Lasix 40 daily po (8) HTN (hypertension): Code(s): I10 - Essential (primary) hypertension Status: Acute Assessment and Plan: Blood pressure controlled * Continue cozaar Time Spent With Patient Time: 64 minutes Subjective Date/time seen: 12/08/24 17:54 Interval history: Confused and trying to climb out of bed this morning after dilaudid dose. More calm this afternoon. 79-year-old male past history of history of CABG and pacemaker, atrial fibrillation, GERD, high cholesterol on Lasix presents the hospital with complaints of swelling of hands and feet and not being able to walk. 11/30/2024 and was found to have a completely obstructive fungating mass in the ascending colon measuring 3-4 cm. Pathology of the mass is reported as necrotic specimen with some high-grade dysplasia. A comment is made by pathologist that this is no doubt an invasive malignancy and the specimen is only on from the top of the tumor. Review of Systems Review of Systems: 12 systems were reviewed and are negativ e except for as per HPI. Exam Narrative: General: chronic illl appearing, appears older than stated age. HEENT: normocephalic, atraumatic. Mucous membranes moist. EOMI, PERRLA, bilateral sclera anicteric, no conjunctival injection. Neck supple without JVD, lymphadenopathy, or bruit. Respiratory: clear to auscultation bilaterally. No rales/rhonic/wheezes. Cardiovascular: Regular rate and rhythm, normal S1-S2 upon auscultation. No murmurs, rubs, or clicks. PMI is nondisplaced, capillary refill less than 3 second. Abdomen: Soft, round, bowel sounds present, Abdominal dressing dry and intact, minimally tender Extremities: No cyanosis, clubbing, or edema present. Pulses are palpable 2/2. Active ROM to all four extremities. Neuro: Alert and orientated x 2. PERRLA. Cranial nerves 2-12 intact without focal deficit. Skin: Warm, dry, and intact, without rash, erythema, or lesion. Psych: pleasant, cooperative, normal speech, normal affect, no hallucinations, no dysarthia Objective Data Vital Signs Vital Signs: Vital Signs - 24 hr 12/07/24 17:59 12/07/24 18:21 12/07/24 20:00 Temperature 97.1 F L Pulse Rate 75 80 Respiratory Rate 14 Blood Pressure 114/72 Pulse Oximetry 93 97 Oxygen Delivery Nasal Cannula Nasal Cannula Room Air Oxygen Flow Rate 2 2 Fraction of Inspired Oxygen 12/07/24 20:00 12/07/24 20:25 12/07/24 21:56 Temperature 97 F L Pulse Rate 76 74 74 Respiratory Rate 20 18 Blood Pressure 114/63 Pulse Oximetry 95 94 Oxygen Delivery Nasal Cannula Oxygen Flow Rate 2 Fraction of Inspired Oxygen 28 12/08/24 00:00 12/08/24 01:29 12/08/24 04:00 Temperature 97.3 F L Pulse Rate 76 75 76 Respiratory Rate 18 Blood Pressure 107/58 L Pulse Oximetry 95 Oxygen Delivery Oxygen Flow Rate Fraction of Inspired Oxygen 12/08/24 05:59 12/08/24 08:00 12/08/24 08:00 Temperature 97.8 F Pulse Rate 74 76 Respiratory Rate 18 Blood Pressure 127/68 Pulse Oximetry 98 Oxygen Delivery Room Air Oxygen Flow Rate Fraction of Inspired Oxygen 12/08/24 09:44 12/08/24 12:00 12/08/24 14:02 Temperature 96.5 F L Pulse Rate 76 76 74 Respiratory Rate 18 Blood Pressure 120/63 Pulse Oximetry 98 Oxygen Delivery Oxygen Flow Rate Fraction of Inspired Oxygen Intake/Output Intake/Output: Intake & Output 12/05/24 12/06/24 12/07/24 12/08/24 23:59 23:59 23:59 23:59 Intake Total 3033.3 3148 3952.5 1888.7 Output Total 3900 3150 600 910 Balance -866.7 -2 3352.5 978.7 Meds/Results Medications: Active Medications Generic Name Dose Route Start Last Admin Trade Name Freq PRN Reason Stop Dose Admin Acetaminophen 1,000 mg 12/07/24 18:20 Acetaminophen 500 Mg Tablet PO Q6H PRN Mild Pain (1-3) or Fever Hydrocodone Bitart/Acetaminophen 1 tab 12/07/24 18:20 Hydrocodone/Acetaminophen (*Crx) 5-325 Mg Tablet PO Q4H PRN Pain Rated 4-6 Alteplase, Recombinant 2 mg 12/05/24 14:04 12/05/24 14:26 Alteplase 2 Mg Vial (Cathflo) IV PUSH 2 mg ONCE PRN Administration Line Occlusion Atorvastatin Calcium 40 mg 11/29/24 21:00 12/07/24 21:48 Atorvastatin 40 Mg Tablet PO 40 mg HS BRE Administration Calcium Carbonate 500 mg 12/06/24 08:00 12/08/24 09:43 Calcium Carbonate (Oscal) 500 Mg Tablet PO 500 mg BIDWM BRE Administration Dextrose 12.5 gm 11/29/24 02:22 Dextrose 50% 25 Gm/50 Ml Syringe IV PUSH PRN PRN Hypoglycemia Protocol Enoxaparin Sodium 40 mg 12/08/24 09:00 12/08/24 09:43 Enoxaparin 40 Mg/0.4 Ml Syringe SUB-Q 40 mg DAILY BRE Administration Fentanyl Citrate 25 mcg 12/07/24 17:06 Fentanyl Citrate Inj (*Crx) 100 Mcg/2 Ml Vial IV PUSH Q2M PRN Pain Ferrous Sulfate 325 mg 11/30/24 09:00 12/08/24 09:43 Ferrous Sulfate [address] BY MOUTH 325 mg DAILY BRE Administration Furosemide 40 mg 11/30/24 09:00 12/08/24 09:43 Furosemide 40 Mg Tablet PO 40 mg DAILY BRE Administration Gabapentin 300 mg 11/29/24 13:00 12/08/24 12:11 Gabapentin 300 Mg Capsule PO 300 mg TID BRE Administration Glucose 15 gm 11/29/24 02:22 Glucose Oral Gel 15 Gm Of Glucse In 37.5 Gm Tube PO PRN PRN Hypoglycemia Protocol Hydromorphone HCl 1 mg 12/07/24 18:20 12/08/24 06:00 Hydromorphone Hcl Inj (*Crx) 2 Mg/Ml Vial IV PUSH 1 mg Q4H PRN Administration Pain Rated 7-10 Dextrose 1,000 mls @ 100 mls/hr 11/29/24 02:22 Dextrose 5% 1,000 Ml IVPB PRN PRN Hypoglycemia Protocol Dextrose 1,000 mls @ 50 mls/hr 12/01/24 08:14 Dextrose 10% IV CONT .Q20H PRN if PN is interrupted Multivitamins 1.25 ml/ 1,002.5 mls @ 40 mls/hr 12/01/24 12:00 12/08/24 12:03 Multivitamins 1.25 ml/ Amino IV CONT 40 mls/hr Acids/Electrolytes/Dextrose .Q24H BRE Administration Protocol Fat Emulsion Intravenous 250 mls @ 20.833 mls/hr 12/01/24 12:00 12/08/24 12:04 Lipids 20% IVPB 20.8 mls/hr Q24H BRE Administration Piperacillin Sod/Tazobactam Sod 4.5 gm in 100 mls @ 200 mls/hr 12/05/24 08:00 12/08/24 12:01 Zosyn 4.5 Gm/Ns 100 Ml IVPB 200 mls/hr Q6HR BRE Administration Ibuprofen 800 mg in 200 mls @ 400 mls/hr 12/07/24 19:00 12/08/24 12:02 Caldolor 800 Mg/200 Ml IVPB 400 mls/hr Q8H BRE Administration Insulin Aspart 1 - 2 units 11/29/24 21:00 12/07/24 21:55 Insulin Aspart (*Bkc) 100 Units/Ml SUB-Q 1 units HS BRE Administration Protocol Insulin Aspart 2 - 5 units 11/29/24 08:00 12/08/24 12:12 Insulin Aspart (*Bkc) 100 Units/Ml SUB-Q Not Given TIDWM [facility] Protocol Lidocaine 1 patch 12/08/24 09:00 12/08/24 13:59 Lidocaine 5% Patch TRANSDERM 1 patch DAILY BRE Administration Losartan Potassium 50 mg 11/29/24 21:00 12/08/24 09:43 Losartan Potassium 50 Mg Tablet PO 50 mg Q12H BRE Administration Melatonin 5 mg 11/29/24 21:00 12/07/24 21:48 Melatonin 5 Mg Tablet PO 5 mg HS BRE Administration Ondansetron HCl 4 mg 11/28/24 20:05 Ondansetron Inj 4 Mg/2 Ml Vial IV PUSH Q4H PRN Nausea Oxycodone HCl 5 mg 12/07/24 18:20 Oxycodone Hcl (*Crx) 5 Mg Tab Ir PO Q4H PRN Pain Rated 7-10 Pantoprazole Sodium 40 mg 11/30/24 09:00 12/08/24 09:43 Pantoprazole 40 Mg Tablet PO 40 mg QAM BRE Administration Sodium Chloride 10 ml 12/01/24 14:00 12/08/24 12:12 Central Line Flush IV PUSH 10 ml Q8HR BRE Administration Sodium Chloride 10 ml 12/01/24 09:42 Central Line Flush IV PUSH PRN PRN with TPN bag changes Sodium Chloride 20 ml 12/01/24 09:42 12/04/24 05:36 Central Line Flush IV PUSH 20 ml PRN PRN Administration after blood draws Sotalol HCl 120 mg 11/29/24 12:00 12/08/24 09:44 Sotalol Hcl 40 Mg Tablet PO 120 mg Q12HR BRE Administration Radiology Results: ITS Impressions Chest/Abdomen/Pelvis CT 11/30/24 13:27 IMPRESSION: 1. Prominent wall thickening along the distal transverse colon concerning for colon cancer. No lesion suspicious for metastatic disease. 2. Small right and [id number] left pleural effusions with associated atelectasis in the bilateral lower lobes, left greater than right. 3. Cardiomegaly enlargement of the central pulmonary arteries consistent with pulmonary arterial hypertension. 4. Moderate-sized bilateral fat-containing inguinal hernias. 5. Minimal nonspecific ascites in the deep pelvis. Chest X-Ray 12/04/24 21:13 IMPRESSION: Bilateral airspace disease suggestive of pneumonia versus pulmonary edema. Labs Labs: Laboratory Results - last 24 hr 12/07/24 12/08/24 12/08/24 21:55 00:49 06:09 WBC RBC Hgb Hct MCV MCH MCHC RDW Plt Count MPV Immature Gran % (Auto) Neut % (Auto) Lymph % (Auto) [place]ole % (Auto) Eos % (Auto) Baso % (Auto) Lymph # (Auto) [place] # (Auto) Eos # (Auto) Baso # (Auto) Abs Immat Gran (auto) Absolute Neuts (auto) Absolute Nucleated RBC Nucleated RBC % Sodium Potassium Chloride Carbon Dioxide Anion Gap BUN Creatinine Estim Creat Clear Calc Estimated GFR Glucose POC Capillary Glucose 205 H 213 H 212 H Calcium Phosphorus Magnesium Total Bilirubin AST ALT Alkaline Phosphatase Total Protein Albumin Triglycerides 12/08/24 12/08/24 12/08/24 07:12 09:41 12:01 WBC 11.2 H RBC 3.63 L Hgb 10.0 L Hct 33.4 L MCV 92.0 MCH 27.5 MCHC 29.9 L RDW 15.1 H Plt Count 290 MPV 10.0 Immature Gran % (Auto) 0.7 H Neut % (Auto) 85.5 H Lymph % (Auto) 8.1 L [place]ole % (Auto) 5.3 Eos % (Auto) 0.0 Baso % (Auto) 0.4 Lymph # (Auto) 0.91 [place] # (Auto) 0.6 Eos # (Auto) 0.0 Baso # (Auto) 0.0 Abs Immat Gran (auto) 0.08 H Absolute Neuts (auto) 9.6 H Absolute Nucleated RBC 0.000 Nucleated RBC % 0.0 Sodium 133 L Potassium 4.2 Chloride 101 Carbon Dioxide 26 Anion Gap 6 BUN 15 Creatinine 0.69 L Estim Creat Clear Calc 81 Estimated GFR > 60 Glucose 197 H POC Capillary Glucose 191 H 188 H Calcium 7.9 L Phosphorus 4.7 H Magnesium 2.3 Total Bilirubin 0.5 AST 47 ALT 51 H Alkaline Phosphatase 68 Total Protein 6.0 L Albumin 2.6 L Triglycerides 121 Quality VTE Prophylaxis VTE prophylaxis: mechanical ordered Hospitalist MIPS Advance Care Plan I have confirmed that the patient's Advanced Care Plan is present, code status is documented, or surrogate decision maker is listed in patient medical record.: Yes Medication Reconciliation I have utilized all available resources to obtain, update and review the patients current medications (includes all prescriptions, OTC, herbals, cannabis, and nutritional supplements).: Yes
[2024-12-08 18:15] LABS: Glucose Point of Care 183 mg/dl (65-105)
[2024-12-08] MEDS: MELATONIN 5 MG TABLET PO (21:12)
[2024-12-08] MEDS: ATORVASTATIN 40 MG TABLET PO (21:12)
[2024-12-08] MEDS: INSULIN ASPART (*BKC) 100 UNITS/ML SUB-Q (21:13)
[2024-12-08] MEDS: ALTEPLASE 2 MG VIAL (CATHFLO) IV PUSH (23:45)
[2024-12-09] VITALS (10 sets, daily range): BP systolic 120–138; BP diastolic 60–66; PULSE 75–76; RESP 16–20; TEMP 36.2–36.3; O2SAT 94–99
[2024-12-09] MEDS: IBUPROFEN IV 800 MG/200 ML 800 MG/200 ML BAG 400 MG IVPB ×3 (02:03→18:24)
[2024-12-09 04:28] LABS: Glucose Point of Care 214 mg/dl (65-105)
[2024-12-09] MEDS: CENTRAL LINE FLUSH 10 ML IV PUSH ×3 (05:23→21:19)
[2024-12-09] MEDS: PIPERACILLIN/TAZ 4.5G/NS 100ML 4.5 GM/100 ML BAG IVPB (05:23)
[2024-12-09 05:30] LABS: Hematocrit 26.1 % (42.0-52.0); Hemoglobin 7.9 g/dL (14.0-18.0); Mean Corpuscular HGB Conc 30.3 g/dl (32-36); Mean Corpuscular Hemoglobin 27.8 pg (26-34); Mean Corpuscular Volume 91.9 fl (80-100); Mean Platelet Volume 9.9 fl (7.4-10.4); Platelet Count Result 183 k/mm3 (150-375); Red Blood Count 2.84 M/mm3 (4.6-6.20); Red Cell Distribution Width 15.2 % (11.5-14.5); White Blood Count 5.8 K/mm3 (4.5-10.0)
[2024-12-09 05:43] LABS: Anion Gap 2 mmol/L (4-12); Blood Urea Nitrogen 15 mg/dL (9-20); Calcium 7.8 mg/dL (8.4-10.2); Carbon Dioxide 32 mmol/L (22-30); Chloride 103 mmol/L (98-107); Estimated CRCL calculation 75 ml/min; Estimated Glomerular Filt Rate > 60; Glucose 115 mg/dL (65-110); Potassium 3.7 mmol/L (3.4-5.0); Sodium 137 mmol/L (137-145)
[2024-12-09] MEDS: HYDROcodone/acetaminophen (*CRX) 5-325 MG TABLET 1 TAB PO ×2 (06:40→17:27)
--- NOTE | 2024-12-09 07:54 | WPDPN ---
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 Continue with clear liquids and Ensure supplements today. Ambulate up to chair with therapy. If he can start having some bowel movements then can advance to solid food. Continue TPN for now for malnutrition. Await final pathology results. Supportive management. Subjective Date/time seen: 12/09/24 07:54 Interval history: Patient continues do well. A little confused last evening but seems to be better this morning. No nausea or vomiting. Reports of having a bowel movement 2 days ago but not well documented. Certainly nothing in terms of bowel movement overnight. White blood count is normal. Hemodynamically he is stable. He continues on TPN for malnutrition. He is now postop day number 2 after open transverse colon colectomy for large tumor. Exam GI: Other: Abdomen is soft and mildly distended. Some bowel sounds are noted. Midline incision is healing well without redness or drainage. No peritoneal signs. Objective Data Vital Signs Vital Signs: Vital Signs - 24 hr 12/08/24 08:00 12/08/24 08:00 12/08/24 09:44 Temperature Pulse Rate 76 76 Respiratory Rate Blood Pressure Pulse Oximetry Oxygen Delivery Room Air 12/08/24 12:00 12/08/24 14:02 12/08/24 16:00 Temperature 35.8 C L Pulse Rate 76 74 76 Respiratory Rate 18 Blood Pressure 120/63 Pulse Oximetry 98 Oxygen Delivery 12/08/24 20:00 12/08/24 20:00 12/08/24 22:28 Temperature 36.1 C L Pulse Rate 76 75 Respiratory Rate 18 Blood Pressure 101/53 L Pulse Oximetry 98 97 Oxygen Delivery Room Air 12/09/24 00:00 12/09/24 04:00 12/09/24 06:00 Temperature 36.3 C L Pulse Rate 76 76 75 Respiratory Rate 16 Blood Pressure 120/60 Pulse Oximetry 94 Oxygen Delivery Intake/Output Intake/Output: Intake & Output 12/06/24 12/07/24 12/08/24 12/09/24 23:59 23:59 23:59 23:59 Intake Total 3148 3952.5 2948.7 1150 Output Total 3150 600 2720 3100 Balance -2 3352.5 228.7 -7802 Meds/Results Medications: Active Medications Generic Name Dose Route Start Last Admin Trade Name Freq PRN Reason Stop Dose Admin Acetaminophen 1,000 mg 12/07/24 18:20 Acetaminophen 500 Mg Tablet PO Q6H PRN Mild Pain (1-3) or Fever Hydrocodone Bitart/Acetaminophen 1 tab 12/07/24 18:20 12/09/24 06:40 Hydrocodone/Acetaminophen (*Crx) 5-325 Mg Tablet PO 1 tab Q4H PRN Administration Pain Rated 4-6 Alteplase, Recombinant 2 mg 12/05/24 14:04 12/08/24 23:45 Alteplase 2 Mg Vial (Cathflo) IV PUSH 2 mg ONCE PRN Administration Line Occlusion Atorvastatin Calcium 40 mg 11/29/24 21:00 12/08/24 21:12 Atorvastatin 40 Mg Tablet PO 40 mg HS BRE Administration Calcium Carbonate 500 mg 12/06/24 08:00 12/08/24 18:09 Calcium Carbonate (Oscal) 500 Mg Tablet PO 500 mg BIDWM BRE Administration Dextrose 12.5 gm 11/29/24 02:22 Dextrose 50% 25 Gm/50 Ml Syringe IV PUSH PRN PRN Hypoglycemia Protocol Enoxaparin Sodium 40 mg 12/08/24 09:00 12/08/24 09:43 Enoxaparin 40 Mg/0.4 Ml Syringe SUB-Q 40 mg DAILY BRE Administration Fentanyl Citrate 25 mcg 12/07/24 17:06 Fentanyl Citrate Inj (*Crx) 100 Mcg/2 Ml Vial IV PUSH Q2M PRN Pain Ferrous Sulfate 325 mg 11/30/24 09:00 12/08/24 09:43 Ferrous Sulfate [address] BY MOUTH 325 mg DAILY BRE Administration Furosemide 40 mg 11/30/24 09:00 12/08/24 09:43 Furosemide 40 Mg Tablet PO 40 mg DAILY BRE Administration Gabapentin 300 mg 11/29/24 13:00 12/08/24 18:09 Gabapentin 300 Mg Capsule PO 300 mg TID BRE Administration Glucose 15 gm 11/29/24 02:22 Glucose Oral Gel 15 Gm Of Glucse In 37.5 Gm Tube PO PRN PRN Hypoglycemia Protocol Hydromorphone HCl 0.2 mg 12/08/24 17:55 Hydromorphone Hcl Inj (*Crx) 2 Mg/Ml Vial IV PUSH Q4H PRN Pain Rated 7-10 Dextrose 1,000 mls @ 100 mls/hr 11/29/24 02:22 Dextrose 5% 1,000 Ml IVPB PRN PRN Hypoglycemia Protocol Dextrose 1,000 mls @ 50 mls/hr 12/01/24 08:14 Dextrose 10% IV CONT .Q20H PRN if PN is interrupted Multivitamins 1.25 ml/ 1,002.5 mls @ 40 mls/hr 12/01/24 12:00 12/08/24 12:03 Multivitamins 1.25 ml/ Amino IV CONT 40 mls/hr Acids/Electrolytes/Dextrose .Q24H BRE Administration Protocol Fat Emulsion Intravenous 250 mls @ 20.833 mls/hr 12/01/24 12:00 12/09/24 00:06 Lipids 20% IVPB Infused Q24H BRE Infusion Ibuprofen 800 mg in 200 mls @ 400 mls/hr 12/07/24 19:00 12/09/24 02:33 Caldolor 800 Mg/200 Ml IVPB Infused Q8H BRE Infusion Insulin Aspart 1 - 2 units 11/29/24 21:00 12/08/24 21:13 Insulin Aspart (*Bkc) 100 Units/Ml SUB-Q 1 units HS BRE Administration Protocol Insulin Aspart 2 - 5 units 11/29/24 08:00 12/08/24 18:30 Insulin Aspart (*Bkc) 100 Units/Ml SUB-Q Not Given TIDWM [facility] Protocol Lidocaine 1 patch 12/08/24 09:00 12/08/24 13:59 Lidocaine 5% Patch TRANSDERM 1 patch DAILY BRE Administration Losartan Potassium 50 mg 11/29/24 21:00 12/08/24 21:10 Losartan Potassium 50 Mg Tablet PO Not Given Q12H BRE Melatonin 5 mg 11/29/24 21:00 12/08/24 21:12 Melatonin 5 Mg Tablet PO 5 mg HS BRE Administration Ondansetron HCl 4 mg 11/28/24 20:05 Ondansetron Inj 4 Mg/2 Ml Vial IV PUSH Q4H PRN Nausea Oxycodone HCl 5 mg 12/07/24 18:20 Oxycodone Hcl (*Crx) 5 Mg Tab Ir PO Q4H PRN Pain Rated 7-10 Pantoprazole Sodium 40 mg 11/30/24 09:00 12/08/24 09:43 Pantoprazole 40 Mg Tablet PO 40 mg QAM BRE Administration Sodium Chloride 10 ml 12/01/24 14:00 12/09/24 05:23 Central Line Flush IV PUSH 10 ml Q8HR BRE Administration Sodium Chloride 10 ml 12/01/24 09:42 Central Line Flush IV PUSH PRN PRN with TPN bag changes Sodium Chloride 20 ml 12/01/24 09:42 12/04/24 05:36 Central Line Flush IV PUSH 20 ml PRN PRN Administration after blood draws Sotalol HCl 120 mg 11/29/24 12:00 12/08/24 21:10 Sotalol Hcl 40 Mg Tablet PO Not Given Q12HR [facility] Radiology Results: ITS Impressions Chest/Abdomen/Pelvis CT 11/30/24 13:27 IMPRESSION: 1. Prominent wall thickening along the distal transverse colon concerning for colon cancer. No lesion suspicious for metastatic disease. 2. Small right and [id number] left pleural effusions with associated atelectasis in the bilateral lower lobes, left greater than right. 3. Cardiomegaly enlargement of the central pulmonary arteries consistent with pulmonary arterial hypertension. 4. Moderate-sized bilateral fat-containing inguinal hernias. 5. Minimal nonspecific ascites in the deep pelvis. Chest X-Ray 12/04/24 21:13 IMPRESSION: Bilateral airspace disease suggestive of pneumonia versus pulmonary edema. Labs Labs: Laboratory Results - last 24 hr 12/08/24 12/08/24 12/08/24 09:41 12:01 18:13 WBC RBC Hgb Hct MCV MCH MCHC RDW Plt Count MPV Sodium Potassium Chloride Carbon Dioxide Anion Gap BUN Creatinine Estim Creat Clear Calc Estimated GFR Glucose POC Capillary Glucose 191 H 188 H 183 H Calcium 12/08/24 12/09/24 20:13 05:24 WBC 5.8 RBC 2.84 L Hgb 7.9 L Hct 26.1 L MCV 91.9 MCH 27.8 MCHC 30.3 L RDW 15.2 H Plt Count 183 MPV 9.9 Sodium 137 Potassium 3.7 Chloride 103 Carbon Dioxide 32 H Anion Gap 2 L BUN 15 Creatinine 0.74 Estim Creat Clear Calc 75 Estimated GFR > 60 Glucose 115 H POC Capillary Glucose 214 H Calcium 7.8 L
[2024-12-09 08:23] LABS: Glucose Point of Care 120 mg/dl (65-105)
[2024-12-09] MEDS: GABAPENTIN 300 MG CAPSULE PO ×3 (09:24→17:27)
[2024-12-09] MEDS: FERROUS SULFATE 325 MG TABLET DR BY MOUTH (09:24)
[2024-12-09] MEDS: PANTOPRAZOLE 40 MG TABLET PO (09:25)
[2024-12-09] MEDS: CALCIUM CARBONATE (OSCAL) 500 MG TABLET PO ×2 (09:25→17:27)
[2024-12-09] MEDS: ENOXAPARIN 40 MG/0.4 ML SYRINGE SUB-Q (09:26)
[2024-12-09] MEDS: FUROSEMIDE 40 MG TABLET PO (09:27)
[2024-12-09] MEDS: LOSARTAN POTASSIUM 50 MG TABLET PO ×2 (09:27→21:16)
[2024-12-09] MEDS: SOTALOL HCL 40 MG TABLET 120 MG PO ×2 (09:27→21:16)
--- NOTE | 2024-12-09 10:41 | PCNFU ---
Nutrition Follow-Up Complete: Unintended weight loss as related to weakness as evidenced 10% (20 ibs) in 2 months. Goal:Adequate intake of at least 75% of meals/supplements Pt current nutrition is Clear liquids, Ensure Shakes TID, TPN: Clinimix E 12/22 @ 40ml/hr = 1182kcals, 48g protein. Nutrition recommendation: Encourage po intake of meals and supplements Last recorded weight is 77.4 kg. Bowel Motility: +BM 12/07 Labs Reviewed: Hgb:7.9, HCT:26.9, Glu:115 Meds Noted: Protonix, novolog, lasix Skin: WNL Additional Notes: Pt continues on a clear liquid diet, intake good and tolerating. TPN continues. Recommend to continue with diet advancement as possible. Will monitor weight, labs, skin, diet orders, Follow up every Thursday and Thursday
[2024-12-09 11:55] LABS: Glucose Point of Care 202 mg/dl (65-105)
[2024-12-09] MEDS: AMINO ACIDS 5%/D15W/E-LYTES/CA 1,000 ML with MULTIVITAMINS-12 INJ VIAL 1 1.25 ML, MULTI... 40 ML IV CONT (12:44)
[2024-12-09] MEDS: FAT EMULSIONS IV 20% 250 ML 20.8 ML IVPB (12:44)
[2024-12-09] MEDS: INSULIN ASPART (*BKC) 100 UNITS/ML SUB-Q (12:46)
[2024-12-09] MEDS: ACETAMINOPHEN 500 MG TABLET 1000 MG PO (12:47)
[2024-12-09 16:46] LABS: Glucose Point of Care 182 mg/dl (65-105)
--- NOTE | 2024-12-09 16:56 | P.PNIM_ITS ---
Progress Note: A&P Assessment and Plan (1) Colonic mass: Code(s): K63.89 - Other specified diseases of intestine Status: Acute Assessment and Plan: * Colonoscopy 11/30: Completely-obstructing circumferential, fungating, friable, infiltrative, malignant appearing mass observed in ascending colon, approx 3- 4cm. Multiple biopsies taken * GI, Gen Surg, Heme/Onc following * CEA = 7.8 * PICC Line established, to start TPN for nutrition boost and to increase Albumin * TPN and Ensure for nutrition supplementation * He is afebrile at this time with continued lack of bacterial growth on blood cultures * scheduled for a hand-assisted laparoscopic right hemicolectomy by Dr. Haney 12/07 * Follow path from OR 12/07 (2) Anemia: Qualifiers: Anemia type: iron deficiency Iron deficiency anemia type: unspecified iron deficiency Qualified Code(s): D50.9 - Iron deficiency anemia, unspecified Code(s): D64.9 - Anemia, unspecified Status: Acute Assessment and Plan: RBC 11/29 * Telemetry monitoring * Anemia workup, unable do iron panel due to transfusion * Colonoscopy and EGD yesterday, see above * Stable * Likely related to colonic mass * Hgb 6.4 12/03: Transfused 2 units PRBC * Stable, Hgb 10.1 (3) Fever: Code(s): R50.9 - Fever, unspecified Status: Acute Assessment and Plan: Spiked fever of 102.4F on 12/04 * UA wnl, BC 12/04 no growth * CXR 12/04: bibasilar airspace disease concerning for pneumonia * Benign physical exam, no SOB, leukocytosis, or hypoxia * Started on Vanc + Zosyn, d/c Vanc as nasal MRSA (-) * Monitor BCs and WBC (4) Afib: Code(s): I48.91 - Unspecified atrial fibrillation Status: Acute Assessment and Plan: * Continue sotalol * stable (5) Diabetes: Code(s): E11.9 - Type 2 diabetes mellitus without complications Status: Acute Assessment and Plan: Blood sugars 120-214 in the last 2 days Holding home metformin * Diabetic diet * A Accu-Cheks a.c. HS * SSI (6) Weakness: Code(s): R53.1 - Weakness Status: Acute Assessment and Plan: * PT and OT * Ensure t.i.d. * PICC line inserted on 12/01 * TPN for further supplementation (7) Edema: Code(s): R60.9 - Edema, unspecified Status: Acute Assessment and Plan: * Continue Lasix 40 daily po (8) HTN (hypertension): Code(s): I10 - Essential (primary) hypertension Status: Acute Assessment and Plan: Blood pressure controlled * Continue cozaar Time Spent With Patient Time: 52 minutes Subjective Date/time seen: 12/09/24 13:15 Interval history: Confusion improving. Abdominal incision looks good. Last BM documented 12/07. Denies pain, nausea, or vomiting. WBC normal. Hemodynamically he is stable. He continues on TPN for malnutrition. s/p open transverse colon colectomy for large tumor. Review of Systems Review of Systems: 12 systems were reviewed and are negativ e except for as per HPI. Exam Narrative: General: chronic illl appearing, appears older than stated age. HEENT: normocephalic, atraumatic. Mucous membranes moist. EOMI, PERRLA, bilateral sclera anicteric, no conjunctival injection. Neck supple without JVD, lymphadenopathy, or bruit. Respiratory: clear to auscultation bilaterally. No rales/rhonic/wheezes. Cardiovascular: Regular rate and rhythm, normal S1-S2 upon auscultation. No murmurs, rubs, or clicks. PMI is nondisplaced, capillary refill less than 3 second. Abdomen: Soft, round, bowel sounds present, Abdominal dressing dry and intact, minimally tender Extremities: No cyanosis, clubbing, or edema present. Pulses are palpable 2/2. Active ROM to all four extremities. Neuro: Alert and orientated x 2. PERRLA. Cranial nerves 2-12 intact without focal deficit. Skin: Warm, dry, and intact, without rash, erythema, or lesion. Midline incision clean, dry, and intact Psych: pleasant, cooperative, normal speech, normal affect, no hallucinations, no dysarthia Objective Data Vital Signs Vital Signs: Vital Signs - 24 hr 12/08/24 20:00 12/08/24 20:00 12/08/24 22:28 Temperature 97.0 F L Pulse Rate 76 75 Respiratory Rate 18 Blood Pressure 101/53 L Pulse Oximetry 98 97 Oxygen Delivery Room Air 12/09/24 00:00 12/09/24 04:00 12/09/24 06:00 Temperature 97.3 F L Pulse Rate 76 76 75 Respiratory Rate 16 Blood Pressure 120/60 Pulse Oximetry 94 Oxygen Delivery 12/09/24 09:24 12/09/24 09:27 12/09/24 11:56 Temperature Pulse Rate 76 Respiratory Rate Blood Pressure Pulse Oximetry Oxygen Delivery Room Air Room Air 12/09/24 12:09 12/09/24 15:09 Temperature 97.1 F L Pulse Rate 76 Respiratory Rate 18 Blood Pressure 124/66 Pulse Oximetry 99 Oxygen Delivery Room Air Intake/Output Intake/Output: Intake & Output 12/06/24 12/07/24 12/08/24 12/09/24 23:59 23:59 23:59 23:59 Intake Total 3148 3952.5 2948.7 2996.5 Output Total 3150 600 2720 3100 Balance -2 3352.5 228.7 -103.5 Meds/Results Medications: Active Medications Generic Name Dose Route Start Last Admin Trade Name Freq PRN Reason Stop Dose Admin Acetaminophen 1,000 mg 12/07/24 18:20 12/09/24 12:47 Acetaminophen 500 Mg Tablet PO 1,000 mg Q6H PRN Administration Mild Pain (1-3) or Fever Hydrocodone Bitart/Acetaminophen 1 tab 12/07/24 18:20 12/09/24 06:40 Hydrocodone/Acetaminophen (*Crx) 5-325 Mg Tablet PO 1 tab Q4H PRN Administration Pain Rated 4-6 Alteplase, Recombinant 2 mg 12/05/24 14:04 12/08/24 23:45 Alteplase 2 Mg Vial (Cathflo) IV PUSH 2 mg ONCE PRN Administration Line Occlusion Atorvastatin Calcium 40 mg 11/29/24 21:00 12/08/24 21:12 Atorvastatin 40 Mg Tablet PO 40 mg HS BRE Administration Calcium Carbonate 500 mg 12/06/24 08:00 12/09/24 09:25 Calcium Carbonate (Oscal) 500 Mg Tablet PO 500 mg BIDWM BRE Administration Dextrose 12.5 gm 11/29/24 02:22 Dextrose 50% 25 Gm/50 Ml Syringe IV PUSH PRN PRN Hypoglycemia Protocol Enoxaparin Sodium 40 mg 12/08/24 09:00 12/09/24 09:26 Enoxaparin 40 Mg/0.4 Ml Syringe SUB-Q 40 mg DAILY BRE Administration Fentanyl Citrate 25 mcg 12/07/24 17:06 Fentanyl Citrate Inj (*Crx) 100 Mcg/2 Ml Vial IV PUSH Q2M PRN Pain Ferrous Sulfate 325 mg 11/30/24 09:00 12/09/24 09:24 Ferrous Sulfate [address] BY MOUTH 325 mg DAILY BRE Administration Furosemide 40 mg 11/30/24 09:00 12/09/24 09:27 Furosemide 40 Mg Tablet PO 40 mg DAILY BRE Administration Gabapentin 300 mg 11/29/24 13:00 12/09/24 12:47 Gabapentin 300 Mg Capsule PO 300 mg TID BRE Administration Glucose 15 gm 11/29/24 02:22 Glucose Oral Gel 15 Gm Of Glucse In 37.5 Gm Tube PO PRN PRN Hypoglycemia Protocol Hydromorphone HCl 0.2 mg 12/08/24 17:55 Hydromorphone Hcl Inj (*Crx) 2 Mg/Ml Vial IV PUSH Q4H PRN Pain Rated 7-10 Dextrose 1,000 mls @ 100 mls/hr 11/29/24 02:22 Dextrose 5% 1,000 Ml IVPB PRN PRN Hypoglycemia Protocol Dextrose 1,000 mls @ 50 mls/hr 12/01/24 08:14 Dextrose 10% IV CONT .Q20H PRN if PN is interrupted Multivitamins 1.25 ml/ 1,002.5 mls @ 40 mls/hr 12/01/24 12:00 12/09/24 12:44 Multivitamins 1.25 ml/ Amino IV CONT 40 mls/hr Acids/Electrolytes/Dextrose .Q24H BRE Administration Protocol Fat Emulsion Intravenous 250 mls @ 20.833 mls/hr 12/01/24 12:00 12/09/24 12: 44 Lipids 20% IVPB 20.8 mls/hr Q24H BRE Administration Ibuprofen 800 mg in 200 mls @ 400 mls/hr 12/07/24 19:00 12/09/24 10:55 Caldolor 800 Mg/200 Ml IVPB 400 mls/hr Q8H BRE Administration Insulin Aspart 1 - 2 units 11/29/24 21:00 12/08/24 21:13 Insulin Aspart (*Bkc) 100 Units/Ml SUB-Q 1 units HS BRE Administration Protocol Insulin Aspart 2 - 5 units 11/29/24 08:00 12/09/24 12:46 Insulin Aspart (*Bkc) 100 Units/Ml SUB-Q 2 units TIDWM BRE Administration Protocol Lidocaine 1 patch 12/08/24 09:00 12/09/24 09:30 Lidocaine 5% Patch TRANSDERM Not Given DAILY [facility] Losartan Potassium 50 mg 11/29/24 21:00 12/09/24 09:27 Losartan Potassium 50 Mg Tablet PO 50 mg Q12H BRE Administration Melatonin 5 mg 11/29/24 21:00 12/08/24 21:12 Melatonin 5 Mg Tablet PO 5 mg HS BRE Administration Ondansetron HCl 4 mg 11/28/24 20:05 Ondansetron Inj 4 Mg/2 Ml Vial IV PUSH Q4H PRN Nausea Oxycodone HCl 5 mg 12/07/24 18:20 Oxycodone Hcl (*Crx) 5 Mg Tab Ir PO Q4H PRN Pain Rated 7-10 Pantoprazole Sodium 40 mg 11/30/24 09:00 12/09/24 09:25 Pantoprazole 40 Mg Tablet PO 40 mg QAM BRE Administration Sodium Chloride 10 ml 12/01/24 14:00 12/09/24 12:47 Central Line Flush IV PUSH 10 ml Q8HR BRE Administration Sodium Chloride 10 ml 12/01/24 09:42 Central Line Flush IV PUSH PRN PRN with TPN bag changes Sodium Chloride 20 ml 12/01/24 09:42 12/04/24 05:36 Central Line Flush IV PUSH 20 ml PRN PRN Administration after blood draws Sotalol HCl 120 mg 11/29/24 12:00 12/09/24 09:27 Sotalol Hcl 40 Mg Tablet PO 120 mg Q12HR BRE Administration Radiology Results: ITS Impressions Chest/Abdomen/Pelvis CT 11/30/24 13:27 IMPRESSION: 1. Prominent wall thickening along the distal transverse colon concerning for colon cancer. No lesion suspicious for metastatic disease. 2. Small right and [id number] left pleural effusions with associated atelectasis in the bilateral lower lobes, left greater than right. 3. Cardiomegaly enlargement of the central pulmonary arteries consistent with pulmonary arterial hypertension. 4. Moderate-sized bilateral fat-containing inguinal hernias. 5. Minimal nonspecific ascites in the deep pelvis. Chest X-Ray 12/04/24 21:13 IMPRESSION: Bilateral airspace disease suggestive of pneumonia versus pulmonary edema. Labs Labs: Laboratory Results - last 24 hr 12/08/24 12/08/24 12/09/24 18:13 20:13 05:24 WBC 5.8 RBC 2.84 L Hgb 7.9 L Hct 26.1 L MCV 91.9 MCH 27.8 MCHC 30.3 L RDW 15.2 H Plt Count 183 MPV 9.9 Sodium 137 Potassium 3.7 Chloride 103 Carbon Dioxide 32 H Anion Gap 2 L BUN 15 Creatinine 0.74 Estim Creat Clear Calc 75 Estimated GFR > 60 Glucose 115 H POC Capillary Glucose 183 H 214 H Calcium 7.8 L 12/09/24 12/09/24 12/09/24 08:16 11:48 16:39 WBC RBC Hgb Hct MCV MCH MCHC RDW Plt Count MPV Sodium Potassium Chloride Carbon Dioxide Anion Gap BUN Creatinine Estim Creat Clear Calc Estimated GFR Glucose POC Capillary Glucose 120 H 202 H 182 H Calcium Quality VTE Prophylaxis VTE prophylaxis: mechanical ordered and pharmacologic ordered Hospitalist MIPS Advance Care Plan I have confirmed that the patient's Advanced Care Plan is present, code status is documented, or surrogate decision maker is listed in patient medical record.: Yes Medication Reconciliation I have utilized all available resources to obtain, update and review the patients current medications (includes all prescriptions, OTC, herbals, cannabis, and nutritional supplements).: Yes
[2024-12-09] MEDS: BISACODYL 10 MG SUPPOSITORY RECTAL (19:41)
[2024-12-09] MEDS: ALTEPLASE 2 MG VIAL (CATHFLO) IV PUSH (19:47)
[2024-12-09] MEDS: MELATONIN 5 MG TABLET PO (21:16)
[2024-12-09] MEDS: ATORVASTATIN 40 MG TABLET PO (21:16)
[2024-12-10] VITALS (9 sets, daily range): BP systolic 140–147; BP diastolic 60–67; PULSE 58–76; RESP 16–18; TEMP 36.2; O2SAT 93–97
[2024-12-10] MEDS: IBUPROFEN IV 800 MG/200 ML 800 MG/200 ML BAG 400 MG IVPB ×2 (02:34→13:04)
[2024-12-10 05:12] LABS: Glucose Point of Care 191 mg/dl (65-105)
[2024-12-10 06:01] LABS: Anion Gap 3 mmol/L (4-12); Blood Urea Nitrogen 15 mg/dL (9-20); Calcium 7.9 mg/dL (8.4-10.2); Carbon Dioxide 30 mmol/L (22-30); Chloride 105 mmol/L (98-107); Estimated CRCL calculation 85 ml/min; Estimated Glomerular Filt Rate > 60; Glucose 139 mg/dL (65-110); Potassium 3.7 mmol/L (3.4-5.0); Sodium 138 mmol/L (137-145); Triglycerides 59 mg/dL (<150)
[2024-12-10 07:54] LABS: Hematocrit 27.8 % (42.0-52.0); Hemoglobin 8.1 g/dL (14.0-18.0); Mean Corpuscular HGB Conc 29.1 g/dl (32-36); Mean Corpuscular Hemoglobin 27.6 pg (26-34); Mean Corpuscular Volume 94.6 fl (80-100); Mean Platelet Volume 10.8 fl (7.4-10.4); Platelet Count Result 201 k/mm3 (150-375); Red Blood Count 2.94 M/mm3 (4.6-6.20); Red Cell Distribution Width 15.4 % (11.5-14.5); White Blood Count 4.8 K/mm3 (4.5-10.0)
[2024-12-10 08:19] LABS: Glucose Point of Care 130 mg/dl (65-105)
[2024-12-10] MEDS: ENOXAPARIN 40 MG/0.4 ML SYRINGE SUB-Q (08:37)
[2024-12-10] MEDS: FUROSEMIDE 40 MG TABLET PO (08:38)
[2024-12-10] MEDS: LOSARTAN POTASSIUM 50 MG TABLET PO ×2 (08:38→20:59)
[2024-12-10] MEDS: FERROUS SULFATE 325 MG TABLET DR BY MOUTH (08:38)
[2024-12-10] MEDS: SOTALOL HCL 40 MG TABLET 120 MG PO ×2 (08:38→21:01)
[2024-12-10] MEDS: CALCIUM CARBONATE (OSCAL) 500 MG TABLET PO ×2 (08:38→18:44)
[2024-12-10] MEDS: PANTOPRAZOLE 40 MG TABLET PO (08:38)
[2024-12-10] MEDS: GABAPENTIN 300 MG CAPSULE PO ×3 (08:38→18:44)
[2024-12-10] MEDS: HYDROcodone/acetaminophen (*CRX) 5-325 MG TABLET 1 TAB PO ×2 (10:04→18:54)
[2024-12-10] MEDS: CENTRAL LINE FLUSH 10 ML IV PUSH ×3 (10:36→22:00)
[2024-12-10 12:27] LABS: Glucose Point of Care 133 mg/dl (65-105)
[2024-12-10] MEDS: FAT EMULSIONS IV 20% 250 ML 20.8 ML IVPB (13:05)
[2024-12-10] MEDS: AMINO ACIDS 5%/D15W/E-LYTES/CA 1,000 ML with MULTIVITAMINS-12 INJ VIAL 1 1.25 ML, MULTI... 40 ML IV CONT (13:05)
--- NOTE | 2024-12-10 13:52 | PCPTNOTE ---
PT attempted today-pt refused stating I'm not doing anything today! Don't bother checking back til next weeK
--- NOTE | 2024-12-10 14:02 | P.PN_ITS ---
Progress Note: A&P Assessment and Plan (1) Colonic mass: Code(s): K63.89 - Other specified diseases of intestine Status: Acute Assessment and Plan: Status post open transverse colonic resection for large obstructing mass. Pathology is still pending. His GI function has now returned. He had 3 bowel movements overnight. Pain is benign. We will go ahead advance his diet to low- fiber diet. Continues TPN for analysis his last albumin 2 days ago was still 2.6. Continue with oral supplements like Ensure. Will repeat his metabolic panel tomorrow and if his albumin is somewhere around 3 then I think we can wean off the TPN. Continue ambulation with PT OT. (2) Protein calorie malnutrition: Code(s): E46 - Unspecified protein-calorie malnutrition Status: Acute Subjective Date/time seen: 12/10/24 14:02 Interval history: Patient seems to be doing much better today. He is much less distended. He has had 3 bowel movements since last evening. Wanting to eat something now. He remains on TPN since his albumin was still 2.6 two days ago. Incisional pain seems to be well controlled. Therapy is working with him to get up out of bed. Exam GI: Other: Abdomen is soft with minimal distention. Midline incision is healing well. No redness or drainage. Minimal tenderness to palpation. Objective Data Vital Signs Vital Signs: Vital Signs - 24 hr 12/09/24 15:09 12/09/24 16:00 12/09/24 20:00 Temperature 36.2 C L Pulse Rate 76 76 Respiratory Rate 18 Blood Pressure 124/66 Pulse Oximetry 99 Oxygen Delivery Room Air Fraction of Inspired Oxygen 12/09/24 20:00 12/09/24 21:59 12/10/24 00:00 Temperature 36.2 C L Pulse Rate 76 75 75 Respiratory Rate 20 Blood Pressure 138/62 Pulse Oximetry 98 Oxygen Delivery Fraction of Inspired Oxygen 12/10/24 04:00 12/10/24 06:17 12/10/24 08:00 Temperature 36.2 C L Pulse Rate 76 58 L 58 L Respiratory Rate 18 18 Blood Pressure 140/60 Pulse Oximetry 97 97 Oxygen Delivery Room Air Fraction of Inspired Oxygen 28 12/10/24 08:00 Temperature Pulse Rate 58 L Respiratory Rate Blood Pressure Pulse Oximetry Oxygen Delivery Fraction of Inspired Oxygen Intake/Output Intake/Output: Intake & Output 12/07/24 12/08/24 12/09/24 12/10/24 23:59 23:59 23:59 23:59 Intake Total 3952.5 2948.7 4233.5 2424 Output Total 600 2720 4010 2600 Balance 3352.5 228.7 223.5 -176 Meds/Results Medications: Active Medications Generic Name Dose Route Start Last Admin Trade Name Freq PRN Reason Stop Dose Admin Acetaminophen 1,000 mg 12/07/24 18:20 12/09/24 12:47 Acetaminophen 500 Mg Tablet PO 1,000 mg Q6H PRN Administration Mild Pain (1-3) or Fever Hydrocodone Bitart/Acetaminophen 1 tab 12/07/24 18:20 12/10/24 10:04 Hydrocodone/Acetaminophen (*Crx) 5-325 Mg Tablet PO 1 tab Q4H PRN Administration Pain Rated 4-6 Alteplase, Recombinant 2 mg 12/05/24 14:04 12/09/24 19:47 Alteplase 2 Mg Vial (Cathflo) IV PUSH 2 mg ONCE PRN Administration Line Occlusion Atorvastatin Calcium 40 mg 11/29/24 21:00 12/09/24 21:16 Atorvastatin 40 Mg Tablet PO 40 mg HS BRE Administration Calcium Carbonate 500 mg 12/06/24 08:00 12/10/24 08:38 Calcium Carbonate (Oscal) 500 Mg Tablet PO 500 mg BIDWM BRE Administration Dextrose 12.5 gm 11/29/24 02:22 Dextrose 50% 25 Gm/50 Ml Syringe IV PUSH PRN PRN Hypoglycemia Protocol Enoxaparin Sodium 40 mg 12/08/24 09:00 12/10/24 08:37 Enoxaparin 40 Mg/0.4 Ml Syringe SUB-Q 40 mg DAILY BRE Administration Ferrous Sulfate 325 mg 11/30/24 09:00 12/10/24 08:38 Ferrous Sulfate [address] BY MOUTH 325 mg DAILY BRE Administration Furosemide 40 mg 11/30/24 09:00 12/10/24 08:38 Furosemide 40 Mg Tablet PO 40 mg DAILY BRE Administration Furosemide 20 mg 12/10/24 13:59 Furosemide Inj 40 Mg/4 Ml Vial IV PUSH 12/10/24 14:00 ONCE ONE Gabapentin 300 mg 11/29/24 13:00 12/10/24 13:05 Gabapentin 300 Mg Capsule PO 300 mg TID BRE Administration Glucose 15 gm 11/29/24 02:22 Glucose Oral Gel 15 Gm Of Glucse In 37.5 Gm Tube PO PRN PRN Hypoglycemia Protocol Hydromorphone HCl 0.2 mg 12/08/24 17:55 Hydromorphone Hcl Inj (*Crx) 2 Mg/Ml Vial IV PUSH Q4H PRN Pain Rated 7-10 Dextrose 1,000 mls @ 100 mls/hr 11/29/24 02:22 Dextrose 5% 1,000 Ml IVPB PRN PRN Hypoglycemia Protocol Dextrose 1,000 mls @ 50 mls/hr 12/01/24 08:14 Dextrose 10% IV CONT .Q20H PRN if PN is interrupted Multivitamins 1.25 ml/ 1,002.5 mls @ 40 mls/hr 12/01/24 12:00 12/10/24 13:05 Multivitamins 1.25 ml/ Amino IV CONT 40 mls/hr Acids/Electrolytes/Dextrose .Q24H BRE Administration Protocol Fat Emulsion Intravenous 250 mls @ 20.833 mls/hr 12/01/24 12:00 12/10/24 13:05 Lipids 20% IVPB 20.8 mls/hr Q24H BRE Administration Insulin Aspart 1 - 2 units 11/29/24 21:00 12/09/24 21:18 Insulin Aspart (*Bkc) 100 Units/Ml SUB-Q Not Given HS BRE Protocol Insulin Aspart 2 - 5 units 11/29/24 08:00 12/10/24 10:37 Insulin Aspart (*Bkc) 100 Units/Ml SUB-Q Not Given TIDWM BRE Protocol Lidocaine 1 patch 12/08/24 09:00 12/10/24 08:38 Lidocaine 5% Patch TRANSDERM Not Given DAILY BRE Losartan Potassium 50 mg 11/29/24 21:00 12/10/24 08:38 Losartan Potassium 50 Mg Tablet PO 50 mg Q12H BRE Administration Melatonin 5 mg 11/29/24 21:00 12/09/24 21:16 Melatonin 5 Mg Tablet PO 5 mg HS BRE Administration Miscellaneous Information 1 each 12/10/24 00:01 Clinamix Needs To Be Renewed Or It Will Automatically Discontinue. XX 01/09/25 00:00 CLARIFY BRE Ondansetron HCl 4 mg 11/28/24 20:05 Ondansetron Inj 4 Mg/2 Ml Vial IV PUSH Q4H PRN Nausea Oxycodone HCl 5 mg 12/07/24 18:20 Oxycodone Hcl (*Crx) 5 Mg Tab Ir PO Q4H PRN Pain Rated 7-10 Pantoprazole Sodium 40 mg 11/30/24 09:00 12/10/24 08:38 Pantoprazole 40 Mg Tablet PO 40 mg QAM BRE Administration Sodium Chloride 10 ml 12/01/24 14:00 12/10/24 13:11 Central Line Flush IV PUSH 10 ml Q8HR BRE Administration Sodium Chloride 10 ml 12/01/24 09:42 Central Line Flush IV PUSH PRN PRN with TPN bag changes Sodium Chloride 20 ml 12/01/24 09:42 12/04/24 05:36 Central Line Flush IV PUSH 20 ml PRN PRN Administration after blood draws Sotalol HCl 120 mg 11/29/24 12:00 12/10/24 08:38 Sotalol Hcl 40 Mg Tablet PO 120 mg Q12HR BRE Administration Radiology Results: ITS Impressions Chest/Abdomen/Pelvis CT 11/30/24 13:27 IMPRESSION: 1. Prominent wall thickening along the distal transverse colon concerning for colon cancer. No lesion suspicious for metastatic disease. 2. Small right and [id number] left pleural effusions with associated atelectasis in the bilateral lower lobes, left greater than right. 3. Cardiomegaly enlargement of the central pulmonary arteries consistent with pulmonary arterial hypertension. 4. Moderate-sized bilateral fat-containing inguinal hernias. 5. Minimal nonspecific ascites in the deep pelvis. Chest X-Ray 12/04/24 21:13 IMPRESSION: Bilateral airspace disease suggestive of pneumonia versus pulmonary edema. Labs Labs: Laboratory Results - last 24 hr 12/09/24 12/09/24 12/10/24 16:39 21:11 05:21 WBC 4.8 RBC 2.94 L Hgb 8.1 L Hct 27.8 L MCV 94.6 MCH 27.6 MCHC 29.1 L RDW 15.4 H Plt Count 201 MPV 10.8 H Sodium Potassium Chloride Carbon Dioxide Anion Gap BUN Creatinine Estim Creat Clear Calc Estimated GFR Glucose POC Capillary Glucose 182 H 191 H Calcium Triglycerides 12/10/24 12/10/24 12/10/24 05:33 08:16 12:24 WBC RBC Hgb Hct MCV MCH MCHC RDW Plt Count MPV Sodium 138 Potassium 3.7 Chloride 105 Carbon Dioxide 30 Anion Gap 3 L BUN 15 Creatinine 0.65 L Estim Creat Clear Calc 85 Estimated GFR > 60 Glucose 139 H POC Capillary Glucose 130 H 133 H Calcium 7.9 L Triglycerides 59
--- NOTE | 2024-12-10 15:12 | P.PNIM_ITS ---
Progress Note: A&P Assessment and Plan (1) Colonic mass: Code(s): K63.89 - Other specified diseases of intestine Status: Acute Assessment and Plan: * Colonoscopy 11/30: Completely-obstructing circumferential, fungating, friable, infiltrative, malignant appearing mass observed in ascending colon, approx 3- 4cm. Multiple biopsies taken * GI, Gen Surg, Heme/Onc following * CEA = 7.8 * PICC Line established, to start TPN for nutrition boost and to increase Albumin * TPN and Ensure for nutrition supplementation * He is afebrile at this time with continued lack of bacterial growth on blood cultures * scheduled for a hand-assisted laparoscopic right hemicolectomy by Dr. Haney 12/07 * Follow path from [place] 12/07 (2) Anemia: Qualifiers: Anemia type: iron deficiency Iron deficiency anemia type: unspecified iron deficiency Qualified Code(s): D50.9 - Iron deficiency anemia, unspecified Code(s): D64.9 - Anemia, unspecified Status: Acute Assessment and Plan: RBC 11/29 * Telemetry monitoring * Anemia workup, unable do iron panel due to transfusion * Colonoscopy and EGD yesterday, see above * Stable * Likely related to colonic mass * Hgb 6.4 12/03: Transfused 2 units PRBC * 12/10 Hgb 8.1 (3) Fever: Code(s): R50.9 - Fever, unspecified Status: Acute Assessment and Plan: Spiked fever of 102.4F on 12/04 * UA wnl, BC 12/04 no growth * CXR 12/04: bibasilar airspace disease concerning for pneumonia * Benign physical exam, no SOB, leukocytosis, or hypoxia * Started on Vanc + Zosyn, d/c Vanc as nasal MRSA (-) * 12/10 afebrile (4) Afib: Code(s): I48.91 - Unspecified atrial fibrillation Status: Acute Assessment and Plan: * Continue sotalol * stable (5) Diabetes: Code(s): E11.9 - Type 2 diabetes mellitus without complications Status: Acute Assessment and Plan: 12/10 Blood sugars 130-202 during the prior 2 days Holding home metformin * Diabetic diet * A Accu-Cheks a.c. HS * SSI (6) Weakness: Code(s): R53.1 - Weakness Status: Acute Assessment and Plan: * PT and OT * Ensure t.i.d. * PICC line inserted on 12/01 * TPN for further supplementation (7) Edema: Code(s): R60.9 - Edema, unspecified Status: Acute Assessment and Plan: * Continue Lasix 40 daily po (8) HTN (hypertension): Code(s): I10 - Essential (primary) hypertension Status: Acute Assessment and Plan: Blood pressure controlled * Continue cozaar Subjective Date/time seen: 12/10/24 15:12 Interval history: Mild abdominal discomfort with changing positions. Bowels moved. No bleeding. No chest pain or shortness of breath. Generalized weakness but nothing focal. Wants to go home. Hungry and wants to eat. Review of Systems Review of Systems: All systems reviewed & are unremarkable except as noted in HPI and below Exam Narrative: General: chronic illl appearing, appears older than stated age. HEENT: normocephalic, atraumatic. Mucous membranes moist. EOMI, PERRLA, bilateral sclera anicteric, no conjunctival injection. Neck supple without JVD, lymphadenopathy, or bruit. Respiratory: clear to auscultation bilaterally. No rales/rhonic/wheezes. Cardiovascular: Regular rate and rhythm, normal S1-S2 upon auscultation. No murmurs, rubs, or clicks. PMI is nondisplaced. Abdomen: Soft, round, bowel sounds present, tender around incision. Extremities: No cyanosis, clubbing, or edema present. Neuro: Alert and orientated x 3. Cranial nerves 2-12 to inspection. Skin: Warm, dry, and intact, without rash, erythema, or lesion. Midline incision clean, dry, and intact Psych: pleasant, cooperative, normal speech, normal affect, no hallucinations, no dysarthia Objective Data Vital Signs Vital Signs: Vital Signs - 24 hr 12/09/24 16:00 12/09/24 20:00 12/09/24 20:00 Temperature Pulse Rate 76 76 Respiratory Rate Blood Pressure Pulse Oximetry Oxygen Delivery Room Air Fraction of Inspired Oxygen 12/09/24 21:59 12/10/24 00:00 12/10/24 04:00 Temperature 97.1 F L Pulse Rate 75 75 76 Respiratory Rate 20 Blood Pressure 138/62 Pulse Oximetry 98 Oxygen Delivery Fraction of Inspired Oxygen 12/10/24 06:17 12/10/24 08:00 12/10/24 08:00 Temperature 97.2 F L Pulse Rate 58 L 58 L 58 L Respiratory Rate 18 18 Blood Pressure 140/60 Pulse Oximetry 97 97 Oxygen Delivery Room Air Fraction of Inspired Oxygen 28 Intake/Output Intake/Output: Intake & Output 12/07/24 12/08/24 12/09/24 12/10/24 23:59 23:59 23:59 23:59 Intake Total 3952.5 2948.7 4233.5 2424 Output Total 600 2720 4010 2600 Balance 3352.5 228.7 223.5 -176 Meds/Results Medications: Active Medications Generic Name Dose Route Start Last Admin Trade Name Freq PRN Reason Stop Dose Admin Acetaminophen 1,000 mg 12/07/24 18:20 12/09/24 12:47 Acetaminophen 500 Mg Tablet PO 1,000 mg Q6H PRN Administration Mild Pain (1-3) or Fever Hydrocodone Bitart/Acetaminophen 1 tab 12/07/24 18:20 12/10/24 10:04 Hydrocodone/Acetaminophen (*Crx) 5-325 Mg Tablet PO 1 tab Q4H PRN Administration Pain Rated 4-6 Alteplase, Recombinant 2 mg 12/05/24 14:04 12/09/24 19:47 Alteplase 2 Mg Vial (Cathflo) IV PUSH 2 mg ONCE PRN Administration Line Occlusion Atorvastatin Calcium 40 mg 11/29/24 21:00 12/09/24 21:16 Atorvastatin 40 Mg Tablet PO 40 mg HS BRE Administration Calcium Carbonate 500 mg 12/06/24 08:00 12/10/24 08:38 Calcium Carbonate (Oscal) 500 Mg Tablet PO 500 mg BIDWM BRE Administration Dextrose 12.5 gm 11/29/24 02:22 Dextrose 50% 25 Gm/50 Ml Syringe IV PUSH PRN PRN Hypoglycemia Protocol Enoxaparin Sodium 40 mg 12/08/24 09:00 12/10/24 08:37 Enoxaparin 40 Mg/0.4 Ml Syringe SUB-Q 40 mg DAILY BRE Administration Ferrous Sulfate 325 mg 11/30/24 09:00 12/10/24 08:38 Ferrous Sulfate [address] BY MOUTH 325 mg DAILY BRE Administration Furosemide 40 mg 11/30/24 09:00 12/10/24 08:38 Furosemide 40 Mg Tablet PO 40 mg DAILY BRE Administration Gabapentin 300 mg 11/29/24 13:00 12/10/24 13:05 Gabapentin 300 Mg Capsule PO 300 mg TID BRE Administration Glucose 15 gm 11/29/24 02:22 Glucose Oral Gel 15 Gm Of Glucse In 37.5 Gm Tube PO PRN PRN Hypoglycemia Protocol Hydromorphone HCl 0.2 mg 12/08/24 17:55 Hydromorphone Hcl Inj (*Crx) 2 Mg/Ml Vial IV PUSH Q4H PRN Pain Rated 7-10 Dextrose 1,000 mls @ 100 mls/hr 11/29/24 02:22 Dextrose 5% 1,000 Ml IVPB PRN PRN Hypoglycemia Protocol Dextrose 1,000 mls @ 50 mls/hr 12/01/24 08:14 Dextrose 10% IV CONT .Q20H PRN if PN is interrupted Multivitamins 1.25 ml/ 1,002.5 mls @ 40 mls/hr 12/01/24 12:00 12/10/24 13:05 Multivitamins 1.25 ml/ Amino IV CONT 40 mls/hr Acids/Electrolytes/Dextrose .Q24H BRE Administration Protocol Fat Emulsion Intravenous 250 mls @ 20.833 mls/hr 04/24/25 12:00 12/10/24 13:05 Lipids 20% IVPB 20.8 mls/hr Q24H BRE Administration Insulin Aspart 1 - 2 units 11/29/24 21:00 12/09/24 21:18 Insulin Aspart (*Bkc) 100 Units/Ml SUB-Q Not Given HS BRE Protocol Insulin Aspart 2 - 5 units 11/29/24 08:00 12/10/24 10:37 Insulin Aspart (*Bkc) 100 Units/Ml SUB-Q Not Given TIDWM [facility] Protocol Lidocaine 1 patch 12/08/24 09:00 12/10/24 08:38 Lidocaine 5% Patch TRANSDERM Not Given DAILY BRE Losartan Potassium 50 mg 11/29/24 21:00 12/10/24 08:38 Losartan Potassium 50 Mg Tablet PO 50 mg Q12H BRE Administration Melatonin 5 mg 11/29/24 21:00 12/09/24 21:16 Melatonin 5 Mg Tablet PO 5 mg HS BRE Administration Miscellaneous Information 1 each 12/10/24 00:01 Clinamix Needs To Be Renewed Or It Will Automatically Discontinue. XX 01/09/25 00:00 CLARIFY BRE Ondansetron HCl 4 mg 11/28/24 20:05 Ondansetron Inj 4 Mg/2 Ml Vial IV PUSH Q4H PRN Nausea Oxycodone HCl 5 mg 12/07/24 18:20 Oxycodone Hcl (*Crx) 5 Mg Tab Ir PO Q4H PRN Pain Rated 7-10 Pantoprazole Sodium 40 mg 11/30/24 09:00 12/10/24 08:38 Pantoprazole 40 Mg Tablet PO 40 mg QAM BRE Administration Sodium Chloride 10 ml 12/01/24 14:00 12/10/24 13:11 Central Line Flush IV PUSH 10 ml Q8HR BRE Administration Sodium Chloride 10 ml 12/01/24 09:42 Central Line Flush IV PUSH PRN PRN with TPN bag changes Sodium Chloride 20 ml 12/01/24 09:42 12/04/24 05:36 Central Line Flush IV PUSH 20 ml PRN PRN Administration after blood draws Sotalol HCl 120 mg 11/29/24 12:00 12/10/24 08:38 Sotalol Hcl 40 Mg Tablet PO 120 mg Q12HR BRE Administration Radiology Results: ITS Impressions Chest/Abdomen/Pelvis CT 11/30/24 13:27 IMPRESSION: 1. Prominent wall thickening along the distal transverse colon concerning for colon cancer. No lesion suspicious for metastatic disease. 2. Small right and [id number] left pleural effusions with associated atelectasis in the bilateral lower lobes, left greater than right. 3. Cardiomegaly enlargement of the central pulmonary arteries consistent with pulmonary arterial hypertension. 4. Moderate-sized bilateral fat-containing inguinal hernias. 5. Minimal nonspecific ascites in the deep pelvis. Chest X-Ray 12/04/24 21:13 IMPRESSION: Bilateral airspace disease suggestive of pneumonia versus pulmonary edema. Labs Labs: Laboratory Results - last 24 hr 12/09/24 12/09/24 12/10/24 16:39 21:11 05:21 WBC 4.8 RBC 2.94 L Hgb 8.1 L Hct 27.8 L MCV 94.6 MCH 27.6 MCHC 29.1 L RDW 15.4 H Plt Count 201 MPV 10.8 H Sodium Potassium Chloride Carbon Dioxide Anion Gap BUN Creatinine Estim Creat Clear Calc Estimated GFR Glucose POC Capillary Glucose 182 H 191 H Calcium Triglycerides 12/10/24 12/10/24 12/10/24 05:33 08:16 12:24 WBC RBC Hgb Hct MCV MCH MCHC RDW Plt Count MPV Sodium 138 Potassium 3.7 Chloride 105 Carbon Dioxide 30 Anion Gap 3 L BUN 15 Creatinine 0.65 L Estim Creat Clear Calc 85 Estimated GFR > 60 Glucose 139 H POC Capillary Glucose 130 H 133 H Calcium 7.9 L Triglycerides 59
[2024-12-10 17:13] LABS: Glucose Point of Care 123 mg/dl (65-105)
[2024-12-10] MEDS: FUROSEMIDE INJ 40 MG/4 ML VIAL 20 MG IV PUSH (18:44)
[2024-12-10] MEDS: ATORVASTATIN 40 MG TABLET PO (20:59)
[2024-12-10] MEDS: MELATONIN 5 MG TABLET PO (20:59)
[2024-12-10] MEDS: oxyCODONE HCL (*CRX) 5 MG TAB IR PO (21:00)
[2024-12-11] VITALS (11 sets, daily range): BP systolic 164–168; BP diastolic 74–76; PULSE 75–80; RESP 16–20; TEMP 36.2; O2SAT 93–94; BMI 10.0
[2024-12-11 05:03] LABS: Glucose Point of Care 151 mg/dl (65-105)
[2024-12-11] MEDS: oxyCODONE HCL (*CRX) 5 MG TAB IR PO (05:19)
[2024-12-11 05:41] LABS: Hematocrit 31.3 % (42.0-52.0); Hemoglobin 9.4 g/dL (14.0-18.0); Mean Corpuscular Hemoglobin 27.5 pg (26-34); Mean Corpuscular Volume 91.5 fl (80-100); Mean Platelet Volume 9.9 fl (7.4-10.4); Platelet Count Result 263 k/mm3 (150-375); Red Blood Count 3.42 M/mm3 (4.6-6.20); Red Cell Distribution Width 15.1 % (11.5-14.5); White Blood Count 5.3 K/mm3 (4.5-10.0)
[2024-12-11 05:51] LABS: Alanine Aminotransferase 45 U/L (6-50); Albumin Level 2.6 g/dL (3.5-5.1); Alkaline Phosphatase 81 U/L (38-126); Anion Gap 5 mmol/L (4-12); Aspartate Amino Transferase 45 U/L (17-59); Bilirubin,Total 0.3 mg/dL (0.2-1.3); Blood Urea Nitrogen 12 mg/dL (9-20); Carbon Dioxide 35 mmol/L (22-30); Chloride 98 mmol/L (98-107); Estimated CRCL calculation 90 ml/min; Estimated Glomerular Filt Rate > 60; Glucose 156 mg/dL (65-110); Potassium 3.6 mmol/L (3.4-5.0); Sodium 138 mmol/L (137-145)
--- NOTE | 2024-12-11 08:33 | P.PNIM_ITS ---
Progress Note: A&P Assessment and Plan (1) Colonic mass: Code(s): K63.89 - Other specified diseases of intestine Status: Acute Assessment and Plan: * Colonoscopy 11/30: Completely-obstructing circumferential, fungating, friable, infiltrative, malignant appearing mass observed in ascending colon, approx 3- 4cm. Multiple biopsies taken * GI, Gen Surg, Heme/Onc following * CEA = 7.8 * PICC Line established, to start TPN for nutrition boost and to increase Albumin * TPN and Ensure for nutrition supplementation * He is afebrile at this time with continued lack of bacterial growth on blood cultures * scheduled for a hand-assisted laparoscopic right hemicolectomy by Dr. Haney 12/07 * Follow path from OR 12/07 * 12/11 Doing well postop (2) Anemia: Qualifiers: Anemia type: iron deficiency Iron deficiency anemia type: unspecified iron deficiency Qualified Code(s): D50.9 - Iron deficiency anemia, unspecified Code(s): D64.9 - Anemia, unspecified Status: Acute Assessment and Plan: RBC 11/29 * Telemetry monitoring * Anemia workup, unable do iron panel due to transfusion * Colonoscopy and EGD yesterday, see above * Stable * Likely related to colonic mass * Hgb 6.4 12/03: Transfused 2 units PRBC * 12/10 Hgb 8.1, 12/11 9.4 (3) Fever: Code(s): R50.9 - Fever, unspecified Status: Acute Assessment and Plan: Spiked fever of 102.4F on 12/04 * UA wnl, BC 12/04 no growth * CXR 12/04: bibasilar airspace disease concerning for pneumonia * Benign physical exam, no SOB, leukocytosis, or hypoxia * Started on Vanc + Zosyn, d/c Vanc as nasal MRSA (-) * 12/10 afebrile, 12/11 afebrile (4) Afib: Code(s): I48.91 - Unspecified atrial fibrillation Status: Acute Assessment and Plan: * Continue sotalol * stable (5) Diabetes: Code(s): E11.9 - Type 2 diabetes mellitus without complications Status: Acute Assessment and Plan: 12/10 Blood sugars 130-202 during the prior 2 days Holding home metformin * Diabetic diet * A Accu-Cheks a.c. HS * SSI (6) Weakness: Code(s): R53.1 - Weakness Status: Acute Assessment and Plan: * PT and OT * Ensure t.i.d. * PICC line inserted on 12/01 * TPN possibly stop 12/11 due to improved po intake (albumin 2.6) (7) Edema: Code(s): R60.9 - Edema, unspecified Status: Acute Assessment and Plan: * Resolved * Stop furosemide due to worsened metabolic alkalosis and trend towards hypokalemia (8) HTN (hypertension): Code(s): I10 - Essential (primary) hypertension Status: Acute Assessment and Plan: 12/11 168/74 * Continue losartan, monitor Subjective Date/time seen: 12/11/24 08:33 Interval history: No new issues. Tolerated heart healthy diet. Tolerated PT. Bowels moved. No bleeding. Exam Narrative: General: chronic illl appearing, appears older than stated age. HEENT: normocephalic, atraumatic. Mucous membranes moist. EOMI, PERRLA, bilateral sclera anicteric, no conjunctival injection. Neck supple without JVD, lymphadenopathy, or bruit. Respiratory: clear to auscultation bilaterally. No rales/rhonic/wheezes. Cardiovascular: Regular rate and rhythm, normal S1-S2 upon auscultation. No murm urs, rubs, or clicks. PMI is nondisplaced. Abdomen: Soft, round, bowel sounds present, tender around incision. Extremities: No cyanosis, clubbing, or edema present. Neuro: Alert and orientated x 3. Cranial nerves 2-12 to inspection. Skin: Warm, dry, and intact, without rash, erythema, or lesion. Midline incision clean, dry, and intact Psych: pleasant, cooperative, normal speech, normal affect, no hallucinations, no dysarthia Objective Data Vital Signs Vital Signs: Vital Signs - 24 hr 12/10/24 12:00 12/10/24 16:00 12/10/24 20:00 Temperature Pulse Rate 76 76 76 Respiratory Rate Blood Pressure Pulse Oximetry 12/10/24 20:00 12/10/24 21:01 12/10/24 21:53 Temperature 97.2 F L Pulse Rate 76 76 76 Respiratory Rate 16 Blood Pressure 147/67 H Pulse Oximetry 93 12/11/24 00:00 12/11/24 04:00 12/11/24 06:00 Temperature 97.1 F L Pulse Rate 76 77 75 Respiratory Rate 16 Blood Pressure 168/74 H Pulse Oximetry 94 Intake/Output Intake/Output: Intake & Output 12/08/24 12/09/24 12/10/24 12/11/24 23:59 23:59 23:59 23:59 Intake Total 2948.7 4233.5 2764 1250 Output Total 2720 4010 2600 1 Balance 228.7 223.5 164 1249 Meds/Results Medications: Active Medications Generic Name Dose Route Start Last Admin Trade Name Freq PRN Reason Stop Dose Admin Acetaminophen 1,000 mg 12/07/24 18:20 12/09/24 12:47 Acetaminophen 500 Mg Tablet PO 1,000 mg Q6H PRN Administration Mild Pain (1-3) or Fever Hydrocodone Bitart/Acetaminophen 1 tab 12/07/24 18:20 12/10/24 18:54 Hydrocodone/Acetaminophen (*Crx) 5-325 Mg Tablet PO 1 tab Q4H PRN Administration Pain Rated 4-6 Alteplase, Recombinant 2 mg 12/05/24 14:04 12/09/24 19:47 Alteplase 2 Mg Vial (Cathflo) IV PUSH 2 mg ONCE PRN Administration Line Occlusion Atorvastatin Calcium 40 mg 11/29/24 21:00 12/10/24 20:59 Atorvastatin 40 Mg Tablet PO 40 mg HS BRE Administration Calcium Carbonate 500 mg 12/06/24 08:00 12/10/24 18:44 Calcium Carbonate (Oscal) 500 Mg Tablet PO 500 mg BIDWM BRE Administration Dextrose 12.5 gm 11/29/24 02:22 Dextrose 50% 25 Gm/50 Ml Syringe IV PUSH PRN PRN Hypoglycemia Protocol Enoxaparin Sodium 40 mg 12/08/24 09:00 12/10/24 08:37 Enoxaparin 40 Mg/0.4 Ml Syringe SUB-Q 40 mg DAILY BRE Administration Ferrous Sulfate 325 mg 11/30/24 09:00 12/10/24 08:38 Ferrous Sulfate [address] BY MOUTH 325 mg DAILY BRE Administration Gabapentin 300 mg 11/29/24 13:00 12/10/24 18:44 Gabapentin 300 Mg Capsule PO 300 mg TID BRE Administration Glucose 15 gm 11/29/24 02:22 Glucose Oral Gel 15 Gm Of Glucse In 37.5 Gm Tube PO PRN PRN Hypoglycemia Protocol Hydromorphone HCl 0.2 mg 12/08/24 17:55 Hydromorphone Hcl Inj (*Crx) 2 Mg/Ml Vial IV PUSH Q4H PRN Pain Rated 7-10 Dextrose 1,000 mls @ 100 mls/hr 11/29/24 02:22 Dextrose 5% 1,000 Ml IVPB PRN PRN Hypoglycemia Protocol Dextrose 1,000 mls @ 50 mls/hr 12/01/24 08:14 Dextrose 10% IV CONT .Q20H PRN if PN is interrupted Multivitamins 1.25 ml/ 1,002.5 mls @ 40 mls/hr 12/01/24 12:00 12/10/24 13:05 Multivitamins 1.25 ml/ Amino IV CONT 40 mls/hr Acids/Electrolytes/Dextrose .Q24H BRE Administration Protocol Fat Emulsion Intravenous 250 mls @ 20.833 mls/hr 12/01/24 12:00 12/11/24 01:07 Lipids 20% IVPB Infused Q24H BRE Infusion Insulin Aspart 1 - 2 units 11/29/24 21:00 12/10/24 21:00 Insulin Aspart (*Bkc) 100 Units/Ml SUB-Q Not Given HS [facility] Protocol Insulin Aspart 2 - 5 units 11/29/24 08:00 12/10/24 18:44 Insulin Aspart (*Bkc) 100 Units/Ml SUB-Q Not Given TIDWM [facility] Protocol Lidocaine 1 patch 12/08/24 09:00 12/10/24 08:38 Lidocaine 5% Patch TRANSDERM Not Given DAILY BRE Losartan Potassium 50 mg 11/29/24 21:00 12/10/24 20:59 Losartan Potassium 50 Mg Tablet PO 50 mg Q12H BRE Administration Melatonin 5 mg 11/29/24 21:00 12/10/24 20:59 Melatonin 5 Mg Tablet PO 5 mg HS BRE Administration Miscellaneous Information 1 each 12/10/24 00:01 Clinamix Needs To Be Renewed Or It Will Automatically Discontinue. XX 01/09/25 00:00 CLARIFY BRE Ondansetron HCl 4 mg 11/28/24 20:05 Ondansetron Inj 4 Mg/2 Ml Vial IV PUSH Q4H PRN Nausea Oxycodone HCl 5 mg 12/07/24 18:20 12/11/24 05:19 Oxycodone Hcl (*Crx) 5 Mg Tab Ir PO 5 mg Q4H PRN Administration Pain Rated 7-10 Pantoprazole Sodium 40 mg 11/30/24 09:00 12/10/24 08:38 Pantoprazole 40 Mg Tablet PO 40 mg QAM BRE Administration Sodium Chloride 10 ml 12/01/24 14:00 12/11/24 08:30 Central Line Flush IV PUSH Not Given Q8HR BRE Sodium Chloride 10 ml 12/01/24 09:42 Central Line Flush IV PUSH PRN PRN with TPN bag changes Sodium Chloride 20 ml 12/01/24 09:42 12/04/24 05:36 Central Line Flush IV PUSH 20 ml PRN PRN Administration after blood draws Sotalol HCl 120 mg 11/29/24 12:00 12/10/24 21:01 Sotalol Hcl 40 Mg Tablet PO 120 mg Q12HR BRE Administration Radiology Results: ITS Impressions Chest/Abdomen/Pelvis CT 11/30/24 13:27 IMPRESSION: 1. Prominent wall thickening along the distal transverse colon concerning for colon cancer. No lesion suspicious for metastatic disease. 2. Small right and [id number] left pleural effusions with associated atelectasis in the bilateral lower lobes, left greater than right. 3. Cardiomegaly enlargement of the central pulmonary arteries consistent with pulmonary arterial hypertension. 4. Moderate-sized bilateral fat-containing inguinal hernias. 5. Minimal nonspecific ascites in the deep pelvis. Chest X-Ray 12/04/24 21:13 IMPRESSION: Bilateral airspace disease suggestive of pneumonia versus pulmonary edema. Labs Labs: Laboratory Results - last 24 hr 12/10/24 12/10/24 12/10/24 12:24 17:10 20:46 WBC RBC Hgb Hct MCV MCH MCHC RDW Plt Count MPV Sodium Potassium Chloride Carbon Dioxide Anion Gap BUN Creatinine Estim Creat Clear Calc Estimated GFR Glucose POC Capillary Glucose 133 H 123 H 151 H Calcium Total Bilirubin AST ALT Alkaline Phosphatase Total Protein Albumin 12/11/24 05:33 WBC 5.3 RBC 3.42 L Hgb 9.4 L Hct 31.3 L MCV 91.5 MCH 27.5 MCHC 30.0 L RDW 15.1 H Plt Count 263 MPV 9.9 Sodium 138 Potassium 3.6 Chloride 98 Carbon Dioxide 35 H Anion Gap 5 BUN 12 Creatinine 0.61 L Estim Creat Clear Calc 90 Estimated GFR > 60 Glucose 156 H POC Capillary Glucose Calcium 8.0 L Total Bilirubin 0.3 AST 45 ALT 45 Alkaline Phosphatase 81 Total Protein 6.0 L Albumin 2.6 L
[2024-12-11 08:48] LABS: Glucose Point of Care 167 mg/dl (65-105)
[2024-12-11] MEDS: HYDROcodone/acetaminophen (*CRX) 5-325 MG TABLET 1 TAB PO (09:33)
[2024-12-11] MEDS: ENOXAPARIN 40 MG/0.4 ML SYRINGE SUB-Q (09:35)
[2024-12-11] MEDS: GABAPENTIN 300 MG CAPSULE PO ×3 (09:36→17:40)
[2024-12-11] MEDS: PANTOPRAZOLE 40 MG TABLET PO (09:36)
[2024-12-11] MEDS: POTASSIUM CHLORIDE 20 MEQ ER TABLET 40 MEQ PO (09:36)
[2024-12-11] MEDS: LOSARTAN POTASSIUM 50 MG TABLET PO ×2 (09:36→21:16)
[2024-12-11] MEDS: SOTALOL HCL 40 MG TABLET 120 MG PO ×2 (09:36→21:17)
[2024-12-11] MEDS: FERROUS SULFATE 325 MG TABLET DR BY MOUTH (09:37)
[2024-12-11] MEDS: CALCIUM CARBONATE (OSCAL) 500 MG TABLET PO ×2 (09:37→17:40)
[2024-12-11] MEDS: LIDOCAINE 5% PATCH 1 PATCH TRANSDERM (09:41)
[2024-12-11 12:19] LABS: Glucose Point of Care 205 mg/dl (65-105)
--- NOTE | 2024-12-11 12:36 | P.PN_ITS ---
Progress Note: A&P Assessment and Plan (1) Colonic mass: Code(s): K63.89 - Other specified diseases of intestine Status: Acute Assessment and Plan: Final pathology is still pending on the resected colon mass. Very high suspicion this is invasive colon cancer. Seems to be healing okay. Bowel function has returned he is having bowel movements. Little confused this morning has nurses reported he got some pain medicine and has been confused since getting the pain medicine. Will try to hold off on narcotic pain medicines. Will need to get him up out of bed and he sitting up in a chair today. PT and OT to continue working with him. We will go ahead wean office TPN today. Also wean off his lipids. Continue to give him additional supplements. He may ultimately need to go to rehab or senior care facility or swing bed. Subjective Date/time seen: 12/11/24 12:36 Interval history: Patient seems to be a little bit confused today. He did get some pain medicine earlier. He had refused to get out of bed earlier today. Had a bowel movement the last 24hours. Tolerating solid food. White blood count is normal. Albumin is 2.6 today. TPN is still running right now. Exam GI: Other: Abdomen is soft and nondistended. Midline incision is healing well. No redness or drainage. No incisional hernia. No seroma. Objective Data Vital Signs Vital Signs: Vital Signs - 24 hr 12/10/24 16:00 12/10/24 20:00 12/10/24 20:00 Temperature Pulse Rate 76 76 76 Respiratory Rate Blood Pressure Pulse Oximetry 12/10/24 21:01 12/10/24 21:53 12/11/24 00:00 Temperature 36.2 C L Pulse Rate 76 76 76 Respiratory Rate 16 Blood Pressure 147/67 H Pulse Oximetry 93 12/11/24 04:00 12/11/24 06:00 12/11/24 09:36 Temperature 36.2 C L Pulse Rate 77 75 76 Respiratory Rate 16 Blood Pressure 168/74 H Pulse Oximetry 94 Intake/Output Intake/Output: Intake & Output 12/08/24 12/09/24 12/10/24 12/11/24 23:59 23:59 23:59 23:59 Intake Total 2948.7 4233.5 2764 1730 Output Total 2720 4010 2600 1 Balance 228.7 223.5 164 1729 Meds/Results Medications: Active Medications Generic Name Dose Route Start Last Admin Trade Name Freq PRN Reason Stop Dose Admin Acetaminophen 1,000 mg 12/07/24 18:20 12/09/24 12:47 Acetaminophen 500 Mg Tablet PO 1,000 mg Q6H PRN Administration Mild Pain (1-3) or Fever Hydrocodone Bitart/Acetaminophen 1 tab 12/07/24 18:20 12/11/24 09:33 Hydrocodone/Acetaminophen (*Crx) 5-325 Mg Tablet PO 1 tab Q4H PRN Administration Pain Rated 4-6 Alteplase, Recombinant 2 mg 12/05/24 14:04 12/09/24 19:47 Alteplase 2 Mg Vial (Cathflo) IV PUSH 2 mg ONCE PRN Administration Line Occlusion Atorvastatin Calcium 40 mg 11/29/24 21:00 12/10/24 20:59 Atorvastatin 40 Mg Tablet PO 40 mg HS BRE Administration Calcium Carbonate 500 mg 12/06/24 08:00 12/11/24 09:37 Calcium Carbonate (Oscal) 500 Mg Tablet PO 500 mg BIDWM BRE Administration Dextrose 12.5 gm 11/29/24 02:22 Dextrose 50% 25 Gm/50 Ml Syringe IV PUSH PRN PRN Hypoglycemia Protocol Enoxaparin Sodium 40 mg 12/08/24 09:00 12/11/24 09:35 Enoxaparin 40 Mg/0.4 Ml Syringe SUB-Q 40 mg DAILY BRE Administration Ferrous Sulfate 325 mg 11/30/24 09:00 12/11/24 09:37 Ferrous Sulfate [address] BY MOUTH 325 mg DAILY BRE Administration Gabapentin 300 mg 11/29/24 13:00 12/11/24 09:36 Gabapentin 300 Mg Capsule PO 300 mg TID BRE Administration Glucose 15 gm 11/29/24 02:22 Glucose Oral Gel 15 Gm Of Glucse In 37.5 Gm Tube PO PRN PRN Hypoglycemia Protocol Hydromorphone HCl 0.2 mg 12/08/24 17:55 Hydromorphone Hcl Inj (*Crx) 2 Mg/Ml Vial IV PUSH Q4H PRN Pain Rated 7-10 Dextrose 1,000 mls @ 100 mls/hr 11/29/24 02:22 Dextrose 5% 1,000 Ml IVPB PRN PRN Hypoglycemia Protocol Dextrose 1,000 mls @ 50 mls/hr 12/01/24 08:14 Dextrose 10% IV CONT .Q20H PRN if PN is interrupted Fat Emulsion Intravenous 250 mls @ 20.833 mls/hr 12/01/24 12:00 12/11/24 01:07 Lipids 20% IVPB Infused Q24H BRE Infusion Insulin Aspart 1 - 2 units 11/29/24 21:00 12/10/24 21:00 Insulin Aspart (*Bkc) 100 Units/Ml SUB-Q Not Given HS [facility] Protocol Insulin Aspart 2 - 5 units 11/29/24 08:00 12/11/24 09:37 Insulin Aspart (*Bkc) 100 Units/Ml SUB-Q Not Given TIDWM [facility] Protocol Lidocaine 1 patch 12/08/24 09:00 12/11/24 09:41 Lidocaine 5% Patch TRANSDERM 1 patch DAILY BRE Administration Losartan Potassium 50 mg 11/29/24 21:00 12/11/24 09:36 Losartan Potassium 50 Mg Tablet PO 50 mg Q12H BRE Administration Melatonin 5 mg 11/29/24 21:00 12/10/24 20:59 Melatonin 5 Mg Tablet PO 5 mg HS BRE Administration Ondansetron HCl 4 mg 11/28/24 20:05 Ondansetron Inj 4 Mg/2 Ml Vial IV PUSH Q4H PRN Nausea Oxycodone HCl 5 mg 12/07/24 18:20 12/11/24 05:19 Oxycodone Hcl (*Crx) 5 Mg Tab Ir PO 5 mg Q4H PRN Administration Pain Rated 7-10 Pantoprazole Sodium 40 mg 11/30/24 09:00 12/11/24 09:36 Pantoprazole 40 Mg Tablet PO 40 mg QAM BRE Administration Sodium Chloride 10 ml 12/01/24 14:00 12/11/24 08:30 Central Line Flush IV PUSH Not Given Q8HR BRE Sodium Chloride 10 ml 12/01/24 09:42 Central Line Flush IV PUSH PRN PRN with TPN bag changes Sodium Chloride 20 ml 12/01/24 09:42 12/04/24 05:36 Central Line Flush IV PUSH 20 ml PRN PRN Administration after blood draws Sotalol HCl 120 mg 11/29/24 12:00 12/11/24 09:36 Sotalol Hcl 40 Mg Tablet PO 120 mg Q12HR BRE Administration Radiology Results: ITS Impressions Chest/Abdomen/Pelvis CT 11/30/24 13:27 IMPRESSION: 1. Prominent wall thickening along the distal transverse colon concerning for colon cancer. No lesion suspicious for metastatic disease. 2. Small right and [id number] left pleural effusions with associated atelectasis in the bilateral lower lobes, left greater than right. 3. Cardiomegaly enlargement of the central pulmonary arteries consistent with pulmonary arterial hypertension. 4. Moderate-sized bilateral fat-containing inguinal hernias. 5. Minimal nonspecific ascites in the deep pelvis. Chest X-Ray 12/04/24 21:13 IMPRESSION: Bilateral airspace disease suggestive of pneumonia versus pulmonary edema. Labs Labs: Laboratory Results - last 24 hr 12/10/24 12/10/24 12/11/24 17:10 20:46 05:33 WBC 5.3 RBC 3.42 L Hgb 9.4 L Hct 31.3 L MCV 91.5 MCH 27.5 MCHC 30.0 L RDW 15.1 H Plt Count 263 MPV 9.9 Sodium 138 Potassium 3.6 Chloride 98 Carbon Dioxide 35 H Anion Gap 5 BUN 12 Creatinine 0.61 L Estim Creat Clear Calc 90 Estimated GFR > 60 Glucose 156 H POC Capillary Glucose 123 H 151 H Calcium 8.0 L Total Bilirubin 0.3 AST 45 ALT 45 Alkaline Phosphatase 81 Total Protein 6.0 L Albumin 2.6 L 12/11/24 12/11/24 08:45 12:10 WBC RBC Hgb Hct MCV MCH MCHC RDW Plt Count MPV Sodium Potassium Chloride Carbon Dioxide Anion Gap BUN Creatinine Estim Creat Clear Calc Estimated GFR Glucose POC Capillary Glucose 167 H 205 H Calcium Total Bilirubin AST ALT Alkaline Phosphatase Total Protein Albumin
[2024-12-11] MEDS: INSULIN ASPART (*BKC) 100 UNITS/ML SUB-Q ×2 (13:02→21:17)
[2024-12-11] MEDS: CENTRAL LINE FLUSH 10 ML IV PUSH ×2 (13:05→20:55)
[2024-12-11 16:58] LABS: Glucose Point of Care 157 mg/dl (65-105)
[2024-12-11] MEDS: MELATONIN 5 MG TABLET PO (21:15)
[2024-12-11] MEDS: ATORVASTATIN 40 MG TABLET PO (21:15)
[2024-12-11] MEDS: ACETAMINOPHEN 500 MG TABLET 1000 MG PO (21:15)
[2024-12-12] VITALS (11 sets, daily range): BP systolic 139–165; BP diastolic 57–76; PULSE 75–76; RESP 16–18; TEMP 36.1–36.4; O2SAT 96–99
[2024-12-12 03:00] LABS: Glucose Point of Care 246 mg/dl (65-105)
[2024-12-12] MEDS: CENTRAL LINE FLUSH 10 ML IV PUSH ×3 (05:19→20:58)
[2024-12-12 05:27] LABS: Hematocrit 27.7 % (42.0-52.0); Hemoglobin 8.2 g/dL (14.0-18.0); Mean Corpuscular HGB Conc 29.6 g/dl (32-36); Mean Corpuscular Hemoglobin 27.5 pg (26-34); Mean Platelet Volume 9.8 fl (7.4-10.4); Platelet Count Result 239 k/mm3 (150-375); Red Blood Count 2.98 M/mm3 (4.6-6.20); White Blood Count 4.4 K/mm3 (4.5-10.0)
[2024-12-12 05:38] LABS: Alanine Aminotransferase 31 U/L (6-50); Albumin Level 2.1 g/dL (3.5-5.1); Alkaline Phosphatase 68 U/L (38-126); Anion Gap 1 mmol/L (4-12); Aspartate Amino Transferase 29 U/L (17-59); Bilirubin,Total 0.4 mg/dL (0.2-1.3); Blood Urea Nitrogen 10 mg/dL (9-20); Calcium 7.5 mg/dL (8.4-10.2); Carbon Dioxide 31 mmol/L (22-30); Chloride 107 mmol/L (98-107); Estimated CRCL calculation 105 ml/min; Estimated Glomerular Filt Rate > 60; Glucose 134 mg/dL (65-110); Potassium 3.7 mmol/L (3.4-5.0); Sodium 139 mmol/L (137-145)
[2024-12-12 08:06] LABS: Glucose Point of Care 167 mg/dl (65-105)
[2024-12-12] MEDS: ENOXAPARIN 40 MG/0.4 ML SYRINGE SUB-Q (08:49)
[2024-12-12] MEDS: PANTOPRAZOLE 40 MG TABLET PO (08:49)
[2024-12-12] MEDS: LOSARTAN POTASSIUM 50 MG TABLET PO ×2 (08:49→20:55)
[2024-12-12] MEDS: GABAPENTIN 300 MG CAPSULE PO ×3 (08:49→18:16)
[2024-12-12] MEDS: FERROUS SULFATE 325 MG TABLET DR BY MOUTH (08:49)
[2024-12-12] MEDS: CALCIUM CARBONATE (OSCAL) 500 MG TABLET PO ×2 (08:49→18:16)
[2024-12-12] MEDS: LIDOCAINE 5% PATCH 1 PATCH TRANSDERM (08:50)
[2024-12-12 11:34] LABS: Glucose Point of Care 220 mg/dl (65-105)
[2024-12-12] MEDS: IBUPROFEN 600 MG TABLET PO (12:31)
[2024-12-12] MEDS: SOTALOL HCL 40 MG TABLET 120 MG PO ×2 (12:33→20:55)
[2024-12-12] MEDS: INSULIN ASPART (*BKC) 100 UNITS/ML SUB-Q (12:34)
--- NOTE | 2024-12-12 14:23 | P.PNIM_ITS ---
Progress Note: A&P Assessment and Plan (1) Colonic mass: Code(s): K63.89 - Other specified diseases of intestine Status: Acute Assessment and Plan: * Colonoscopy 11/30: Completely-obstructing circumferential, fungating, friable, infiltrative, malignant appearing mass observed in ascending colon, approx 3- 4cm. Multiple biopsies taken * GI, Gen Surg, Heme/Onc following * CEA = 7.8 * PICC Line established, to start TPN for nutrition boost and to increase Albumin * TPN and Ensure for nutrition supplementation * He is afebrile at this time with continued lack of bacterial growth on blood cultures * scheduled for a hand-assisted laparoscopic right hemicolectomy by Dr. Haney 12/07 * Follow path from OR 12/07 * 12/11 Doing well postop (2) Anemia: Qualifiers: Anemia type: iron deficiency Iron deficiency anemia type: unspecified iron deficiency Qualified Code(s): D50.9 - Iron deficiency anemia, unspecified Code(s): D64.9 - Anemia, unspecified Status: Acute Assessment and Plan: RBC 11/29 * Telemetry monitoring * Anemia workup, unable do iron panel due to transfusion * Colonoscopy and EGD yesterday, see above * Stable * Likely related to colonic mass * Hgb 6.4 12/03: Transfused 2 units PRBC * 12/10 Hgb 8.1, 12/11 9.4 (3) Fever: Code(s): R50.9 - Fever, unspecified Status: Acute Assessment and Plan: Spiked fever of 102.4F on 12/04 * UA wnl, BC 12/04 no growth * CXR 12/04: bibasilar airspace disease concerning for pneumonia * Benign physical exam, no SOB, leukocytosis, or hypoxia * Started on Vanc + Zosyn, d/c Vanc as nasal MRSA (-) * 12/10 afebrile, 12/11 afebrile (4) Afib: Code(s): I48.91 - Unspecified atrial fibrillation Status: Acute Assessment and Plan: * Continue sotalol * stable (5) Diabetes: Code(s): E11.9 - Type 2 diabetes mellitus without complications Status: Acute Assessment and Plan: 12/10 Blood sugars 130-202 during the prior 2 days Holding home metformin * Diabetic diet * A Accu-Cheks a.c. HS * SSI (6) Weakness: Code(s): R53.1 - Weakness Status: Acute Assessment and Plan: * PT and OT * Ensure t.i.d. * PICC line inserted on 12/01 * TPN possibly stop 12/11 due to improved po intake (albumin 2.6) (7) Edema: Code(s): R60.9 - Edema, unspecified Status: Acute Assessment and Plan: * Resolved * Stop furosemide due to worsened metabolic alkalosis and trend towards hypokalemia (8) HTN (hypertension): Code(s): I10 - Essential (primary) hypertension Status: Acute Assessment and Plan: 12/11 168/74 * Continue losartan, monitor Plan No new issues. Tolerated heart healthy diet. Tolerated PT. Bowels moved. No bleeding. patient c/o pain but unable to tolerate pain medication as he becomes confused and it is difficult for the patient to participate in the PT. patient is s/p resected colon mass, was seen by surgery service patient's bowl functions are improving, pathology is pending, patient is encourage to participate with PT. Subjective Date/time seen: 12/12/24 14:23 Interval history: No new issues. Tolerated heart healthy diet. Tolerated PT. Bowels moved. No bleeding. patient c/o pain but unable to tolerate pain medication as he becomes confused and it is difficult for the patient to participate in the PT. patient is s/p resected colon mass, was seen by surgery service patient's bowl functions are improving, pathology is pending, patient is encourage to participate with PT. Review of Systems Review of Systems: 12 systems were reviewed and are negativ e except for as per HPI. All systems reviewed & are unremarkable except as noted in HPI and below Exam Narrative: Patient is comfortable, NAD HEENT: eyes are clear and none icteric LUNGS:CTA HEART: RR S1S2 ABD: BS+, Soft and nontender Lower extremities: no edema SKIN: nonjaundiced Neuro: grossly intact. Objective Data Vital Signs Vital Signs: Vital Signs - 24 hr 12/11/24 16:00 12/11/24 20:00 12/11/24 20:00 Temperature Pulse Rate 76 76 Respiratory Rate Blood Pressure Pulse Oximetry Oxygen Delivery Room Air Fraction of Inspired Oxygen 12/11/24 21:06 12/11/24 22:00 12/12/24 00:00 Temperature 36.2 C L Pulse Rate 80 75 76 Respiratory Rate 20 16 Blood Pressure 164/76 H Pulse Oximetry 93 94 Oxygen Delivery Room Air Fraction of Inspired Oxygen 21 12/12/24 04:00 12/12/24 06:00 12/12/24 12:33 Temperature 36.1 C L Pulse Rate 76 75 76 Respiratory Rate 18 Blood Pressure 165/76 H Pulse Oximetry 97 Oxygen Delivery Fraction of Inspired Oxygen Intake/Output Intake/Output: Intake & Output 12/09/24 12/10/24 12/11/24 12/12/24 23:59 23:59 23:59 23:59 Intake Total 4233.5 2764 2890 1280 Output Total 4010 2600 1 2700 Balance 223.5 164 2889 -1420 Meds/Results Medications: Active Medications Generic Name Dose Route Start Last Admin Trade Name Freq PRN Reason Stop Dose Admin Acetaminophen 1,000 mg 12/07/24 18:20 12/11/24 21:15 Acetaminophen 500 Mg Tablet PO 1,000 mg Q6H PRN Administration Mild Pain (1-3) or Fever Hydrocodone Bitart/Acetaminophen 1 tab 12/11/24 12:44 Hydrocodone/Acetaminophen (*Crx) 5-325 Mg Tablet PO Q4H PRN Pain Rated 7-10 Alteplase, Recombinant 2 mg 12/05/24 14:04 12/09/24 19:47 Alteplase 2 Mg Vial (Cathflo) IV PUSH 2 mg ONCE PRN Administration Line Occlusion Atorvastatin Calcium 40 mg 11/29/24 21:00 12/11/24 21:15 Atorvastatin 40 Mg Tablet PO 40 mg HS BRE Administration Calcium Carbonate 500 mg 12/06/24 08:00 12/12/24 08:49 Calcium Carbonate (Oscal) 500 Mg Tablet PO 500 mg BIDWM BRE Administration Dextrose 12.5 gm 11/29/24 02:22 Dextrose 50% 25 Gm/50 Ml Syringe IV PUSH PRN PRN Hypoglycemia Protocol Enoxaparin Sodium 40 mg 12/08/24 09:00 12/12/24 08:49 Enoxaparin 40 Mg/0.4 Ml Syringe SUB-Q 40 mg DAILY BRE Administration Ferrous Sulfate 325 mg 11/30/24 09:00 12/12/24 08:49 Ferrous Sulfate [address] BY MOUTH 325 mg DAILY BRE Administration Gabapentin 300 mg 11/29/24 13:00 12/12/24 12:32 Gabapentin 300 Mg Capsule PO 300 mg TID BRE Administration Glucose 15 gm 11/29/24 02:22 Glucose Oral Gel 15 Gm Of Glucse In 37.5 Gm Tube PO PRN PRN Hypoglycemia Protocol Dextrose 1,000 mls @ 100 mls/hr 11/29/24 02:22 Dextrose 5% 1,000 Ml IVPB PRN PRN Hypoglycemia Protocol Dextrose 1,000 mls @ 50 mls/hr 12/01/24 08:14 Dextrose 10% IV CONT .Q20H PRN if PN is interrupted Ibuprofen 600 mg 12/11/24 12:41 12/12/24 12:31 Ibuprofen 600 Mg Tablet PO 600 mg Q6H PRN Administration Pain Rated 4-6 Insulin Aspart 1 - 2 units 11/29/24 21:00 12/11/24 21:17 Insulin Aspart (*Bkc) 100 Units/Ml SUB-Q 1 units HS BRE Administration Protocol Insulin Aspart 2 - 5 units 11/29/24 08:00 12/12/24 12:34 Insulin Aspart (*Bkc) 100 Units/Ml SUB-Q 2 units TIDWM BRE Administration Protocol Lidocaine 1 patch 12/08/24 09:00 12/12/24 08:50 Lidocaine 5% Patch TRANSDERM 1 patch DAILY BRE Administration Losartan Potassium 50 mg 11/29/24 21:00 12/12/24 08:49 Losartan Potassium 50 Mg Tablet PO 50 mg Q12H BRE Administration Melatonin 5 mg 11/29/24 21:00 12/11/24 21:15 Melatonin 5 Mg Tablet PO 5 mg HS BRE Administration Ondansetron HCl 4 mg 11/28/24 20:05 Ondansetron Inj 4 Mg/2 Ml Vial IV PUSH Q4H PRN Nausea Pantoprazole Sodium 40 mg 11/30/24 09:00 12/12/24 08:49 Pantoprazole 40 Mg Tablet PO 40 mg QAM BRE Administration Sodium Chloride 10 ml 12/01/24 14:00 12/12/24 05:19 Central Line Flush IV PUSH 10 ml Q8HR BRE Administration Sodium Chloride 10 ml 12/01/24 09:42 Central Line Flush IV PUSH PRN PRN with TPN bag changes Sodium Chloride 20 ml 12/01/24 09:42 12/04/24 05:36 Central Line Flush IV PUSH 20 ml PRN PRN Administration after blood draws Sotalol HCl 120 mg 11/29/24 12:00 12/12/24 12:33 Sotalol Hcl 40 Mg Tablet PO 120 mg Q12HR BRE Administration Radiology Results: ITS Impressions Chest/Abdomen/Pelvis CT 11/30/24 13:27 IMPRESSION: 1. Prominent wall thickening along the distal transverse colon concerning for colon cancer. No lesion suspicious for metastatic disease. 2. Small right and [id number] left pleural effusions with associated atelectasis in the bilateral lower lobes, left greater than right. 3. Cardiomegaly enlargement of the central pulmonary arteries consistent with pulmonary arterial hypertension. 4. Moderate-sized bilateral fat-containing inguinal hernias. 5. Minimal nonspecific ascites in the deep pelvis. Chest X-Ray 12/04/24 21:13 IMPRESSION: Bilateral airspace disease suggestive of pneumonia versus pulmonary edema. Labs Labs: Laboratory Results - last 24 hr 12/11/24 12/11/24 12/12/24 16:44 19:35 05:19 WBC 4.4 L RBC 2.98 L Hgb 8.2 L Hct 27.7 L MCV 93.0 MCH 27.5 MCHC 29.6 L RDW 15.0 H Plt Count 239 MPV 9.8 Sodium 139 Potassium 3.7 Chloride 107 Carbon Dioxide 31 H Anion Gap 1 L BUN 10 Creatinine 0.48 L Estim Creat Clear Calc 105 Estimated GFR > 60 Glucose 134 H POC Capillary Glucose 157 H 246 H Calcium 7.5 L Total Bilirubin 0.4 AST 29 ALT 31 Alkaline Phosphatase 68 Total Protein 5.0 L Albumin 2.1 L 12/12/24 12/12/24 07:57 11:25 WBC RBC Hgb Hct MCV MCH MCHC RDW Plt Count MPV Sodium Potassium Chloride Carbon Dioxide Anion Gap BUN Creatinine Estim Creat Clear Calc Estimated GFR Glucose POC Capillary Glucose 167 H 220 H Calcium Total Bilirubin AST ALT Alkaline Phosphatase Total Protein Albumin Quality VTE Prophylaxis VTE prophylaxis: mechanical ordered and pharmacologic ordered
--- NOTE | 2024-12-12 15:44 | P.PNGS_ITS ---
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 Bowel function returned and he is tolerating a solid diet. No longer on TPN. Confusion improved with avoiding narcotics. Continue supplements. CC discussed with family today regarding rehab and plan is to discharge to [facility]. Hopefully he can be discharged in the next 1-2 days if he remains stable. Plan I have discussed the patient's case and plan of care with Dr. Haney. Subjective Subjective Date/Time Seen: 12/12/24 15:44 Patient reports: tolerating a regular diet, flatus and bowel movement Interval history: Patient more alert and less confused today. Nursing has avoided narcotics and felt this has helped his mental status. He is oriented x3 for me today. He reports incisional pain when getting up out of bed. He was stronger today and able to stand on his own with staff. He denies any nausea or vomiting. He is tolerating a diet. Exam Const: General: comfortable and no acute distress Orientation/consciousness: patient oriented x3 GI: Inspection: non-distended and incision (Dry and glue intact, no erythema or drainage) GI Palp: Yes Soft to palpation, Yes Tenderness to palpation present (GI) (Minimal incisional tenderness), No Guarding due to palpation present (GI) and No Hernia present Auscultation: normal bowel sounds Extrem: General: no calf tenderness and no edema Objective Data Vital Signs Vital Signs: Vital Signs - 24 hr 12/11/24 16:00 12/11/24 20:00 12/11/24 20:00 Temperature Pulse Rate 76 76 Respiratory Rate Blood Pressure Pulse Oximetry Oxygen Delivery Room Air Fraction of Inspired Oxygen 12/11/24 21:06 12/11/24 22:00 12/12/24 00:00 Temperature 97.1 F L Pulse Rate 80 75 76 Respiratory Rate 20 16 Blood Pressure 164/76 H Pulse Oximetry 93 94 Oxygen Delivery Room Air Fraction of Inspired Oxygen 12/12/24 04:00 12/12/24 06:00 12/12/24 12:33 Temperature 97.0 F L Pulse Rate 76 75 76 Respiratory Rate 18 Blood Pressure 165/76 H Pulse Oximetry 97 Oxygen Delivery Fraction of Inspired Oxygen 12/12/24 14:40 Temperature 97.5 F L Pulse Rate 75 Respiratory Rate 16 Blood Pressure 139/57 L Pulse Oximetry 99 Oxygen Delivery Fraction of Inspired Oxygen Intake/Output Intake/Output: Intake & Output 12/09/24 12/10/24 12/11/24 12/12/24 23:59 23:59 23:59 23:59 Intake Total 4233.5 2764 2890 1878 Output Total 4010 2600 1 2700 Balance 223.5 164 2889 -822 Meds/Results Medications: Active Medications Generic Name Dose Route Start Last Admin Trade Name Freq PRN Reason Stop Dose Admin Acetaminophen 1,000 mg 12/07/24 18:20 12/11/24 21:15 Acetaminophen 500 Mg Tablet PO 1,000 mg Q6H PRN Administration Mild Pain (1-3) or Fever Hydrocodone Bitart/Acetaminophen 1 tab 12/11/24 12:44 Hydrocodone/Acetaminophen (*Crx) 5-325 Mg Tablet PO Q4H PRN Pain Rated 7-10 Alteplase, Recombinant 2 mg 12/05/24 14:04 12/09/24 19:47 Alteplase 2 Mg Vial (Cathflo) IV PUSH 2 mg ONCE PRN Administration Line Occlusion Atorvastatin Calcium 40 mg 11/29/24 21:00 12/11/24 21:15 Atorvastatin 40 Mg Tablet PO 40 mg HS BRE Administration Calcium Carbonate 500 mg 12/06/24 08:00 12/12/24 08:49 Calcium Carbonate (Oscal) 500 Mg Tablet PO 500 mg BIDWM BRE Administration Dextrose 12.5 gm 11/29/24 02:22 Dextrose 50% 25 Gm/50 Ml Syringe IV PUSH PRN PRN Hypoglycemia Protocol Enoxaparin Sodium 40 mg 12/08/24 09:00 12/12/24 08:49 Enoxaparin 40 Mg/0.4 Ml Syringe SUB-Q 40 mg DAILY BRE Administration Ferrous Sulfate 325 mg 11/30/24 09:00 12/12/24 08:49 Ferrous Sulfate [address] BY MOUTH 325 mg DAILY BRE Administration Gabapentin 300 mg 11/29/24 13:00 12/12/24 12:32 Gabapentin 300 Mg Capsule PO 300 mg TID BRE Administration Glucose 15 gm 11/29/24 02:22 Glucose Oral Gel 15 Gm Of Glucse In 37.5 Gm Tube PO PRN PRN Hypoglycemia Protocol Dextrose 1,000 mls @ 100 mls/hr 11/29/24 02:22 Dextrose 5% 1,000 Ml IVPB PRN PRN Hypoglycemia Protocol Dextrose 1,000 mls @ 50 mls/hr 12/01/24 08:14 Dextrose 10% IV CONT .Q20H PRN if PN is interrupted Ibuprofen 600 mg 12/11/24 12:41 12/12/24 12:31 Ibuprofen 600 Mg Tablet PO 600 mg Q6H PRN Administration Pain Rated 4-6 Insulin Aspart 1 - 2 units 11/29/24 21:00 12/11/24 21:17 Insulin Aspart (*Bkc) 100 Units/Ml SUB-Q 1 units HS BRE Administration Protocol Insulin Aspart 2 - 5 units 11/29/24 08:00 12/12/24 12:34 Insulin Aspart (*Bkc) 100 Units/Ml SUB-Q 2 units TIDWM BRE Administration Protocol Lidocaine 1 patch 12/08/24 09:00 12/12/24 08:50 Lidocaine 5% Patch TRANSDERM 1 patch DAILY BRE Administration Losartan Potassium 50 mg 11/29/24 21:00 12/12/24 08:49 Losartan Potassium 50 Mg Tablet PO 50 mg Q12H BRE Administration Melatonin 5 mg 11/29/24 21:00 12/11/24 21:15 Melatonin 5 Mg Tablet PO 5 mg HS BRE Administration Ondansetron HCl 4 mg 11/28/24 20:05 Ondansetron Inj 4 Mg/2 Ml Vial IV PUSH Q4H PRN Nausea Pantoprazole Sodium 40 mg 11/30/24 09:00 12/12/24 08:49 Pantoprazole 40 Mg Tablet PO 40 mg QAM BRE Administration Sodium Chloride 10 ml 12/01/24 14:00 12/12/24 05:19 Central Line Flush IV PUSH 10 ml Q8HR BRE Administration Sodium Chloride 10 ml 12/01/24 09:42 Central Line Flush IV PUSH PRN PRN with TPN bag changes Sodium Chloride 20 ml 12/01/24 09:42 12/04/24 05:36 Central Line Flush IV PUSH 20 ml PRN PRN Administration after blood draws Sotalol HCl 120 mg 11/29/24 12:00 12/12/24 12:33 Sotalol Hcl 40 Mg Tablet PO 120 mg Q12HR BRE Administration Radiology Results: ITS Impressions Chest/Abdomen/Pelvis CT 11/30/24 13:27 IMPRESSION: 1. Prominent wall thickening along the distal transverse colon concerning for colon cancer. No lesion suspicious for metastatic disease. 2. Small right and [id number] left pleural effusions with associated atelectasis in the bilateral lower lobes, left greater than right. 3. Cardiomegaly enlargement of the central pulmonary arteries consistent with pulmonary arterial hypertension. 4. Moderate-sized bilateral fat-containing inguinal hernias. 5. Minimal nonspecific ascites in the deep pelvis. Chest X-Ray 12/04/24 21:13 IMPRESSION: Bilateral airspace disease suggestive of pneumonia versus pulmonary edema. Labs Labs: Laboratory Results - last 24 hr 12/11/24 12/11/24 12/12/24 16:44 19:35 05:19 WBC 4.4 L RBC 2.98 L Hgb 8.2 L Hct 27.7 L MCV 93.0 MCH 27.5 MCHC 29.6 L RDW 15.0 H Plt Count 239 MPV 9.8 Sodium 139 Potassium 3.7 Chloride 107 Carbon Dioxide 31 H Anion Gap 1 L BUN 10 Creatinine 0.48 L Estim Creat Clear Calc 105 Estimated GFR > 60 Glucose 134 H POC Capillary Glucose 157 H 246 H Calcium 7.5 L Total Bilirubin 0.4 AST 29 ALT 31 Alkaline Phosphatase 68 Total Protein 5.0 L Albumin 2.1 L 12/12/24 12/12/24 07:57 11:25 WBC RBC Hgb Hct MCV MCH MCHC RDW Plt Count MPV Sodium Potassium Chloride Carbon Dioxide Anion Gap BUN Creatinine Estim Creat Clear Calc Estimated GFR Glucose POC Capillary Glucose 167 H 220 H Calcium Total Bilirubin AST ALT Alkaline Phosphatase Total Protein Albumin
[2024-12-12 16:35] LABS: Glucose Point of Care 169 mg/dl (65-105)
[2024-12-12] MEDS: ACETAMINOPHEN 500 MG TABLET 1000 MG PO (20:55)
[2024-12-12] MEDS: MELATONIN 5 MG TABLET PO (20:56)
[2024-12-12] MEDS: ATORVASTATIN 40 MG TABLET PO (20:56)
[2024-12-13] VITALS (8 sets, daily range): BP systolic 150–160; BP diastolic 73–84; PULSE 75–76; RESP 17–18; TEMP 36.1–36.6; O2SAT 98
[2024-12-13 05:26] LABS: Glucose Point of Care 199 mg/dl (65-105)
[2024-12-13 05:56] LABS: Hematocrit 31.5 % (42.0-52.0); Hemoglobin 9.2 g/dL (14.0-18.0); Mean Corpuscular HGB Conc 29.2 g/dl (32-36); Mean Corpuscular Hemoglobin 27.2 pg (26-34); Mean Corpuscular Volume 93.2 fl (80-100); Mean Platelet Volume 10.1 fl (7.4-10.4); Platelet Count Result 278 k/mm3 (150-375); Red Blood Count 3.38 M/mm3 (4.6-6.20); Red Cell Distribution Width 15.1 % (11.5-14.5); White Blood Count 4.7 K/mm3 (4.5-10.0)
[2024-12-13 06:09] LABS: Anion Gap 4 mmol/L (4-12); Blood Urea Nitrogen 16 mg/dL (9-20); Calcium 8.7 mg/dL (8.4-10.2); Carbon Dioxide 30 mmol/L (22-30); Chloride 104 mmol/L (98-107); Estimated CRCL calculation 94 ml/min; Estimated Glomerular Filt Rate > 60; Glucose 120 mg/dL (65-110); Magnesium 2.2 mg/dL (1.6-2.3); Potassium 4.1 mmol/L (3.4-5.0); Sodium 138 mmol/L (137-145)
[2024-12-13 08:20] LABS: Glucose Point of Care 135 mg/dl (65-105)
[2024-12-13] MEDS: ENOXAPARIN 40 MG/0.4 ML SYRINGE SUB-Q (09:17)
[2024-12-13] MEDS: SOTALOL HCL 40 MG TABLET 120 MG PO (09:17)
[2024-12-13] MEDS: GABAPENTIN 300 MG CAPSULE PO ×3 (09:17→17:02)
[2024-12-13] MEDS: PANTOPRAZOLE 40 MG TABLET PO (09:17)
[2024-12-13] MEDS: FERROUS SULFATE 325 MG TABLET DR BY MOUTH (09:17)
[2024-12-13] MEDS: CALCIUM CARBONATE (OSCAL) 500 MG TABLET PO ×2 (09:17→17:01)
[2024-12-13] MEDS: LOSARTAN POTASSIUM 50 MG TABLET PO (09:17)
[2024-12-13] MEDS: LIDOCAINE 5% PATCH 1 PATCH TRANSDERM (09:18)
--- NOTE | 2024-12-13 11:20 | PCNFU ---
Nutrition Follow-Up Complete: Unintended weight loss as related to weakness as evidenced 10% (20 ibs) in 2 months. Goal: Adequate intake of at least 75% of meals/supplements Patient is progressing towards goal. We will continue current goal. Pt current nutrition is Heart Healthy with Ensure Enlive TID. Last recorded weight is 76.3 kg, down from 80.9 kg on admit. Bowel Motility: last reported BM 12/11 Labs Reviewed: Glu 115, Hct 26.9, Hgb 7.9 Meds Noted: Protonix, NovoLog, Oscal Skin: WNL Additional Notes: TPN has been discontinued. Diet order has advanced to heart healthy diet with diet supplements. Oral intake has improved to 40-100% of most meals. Agree with diet orders. Will monitor weight, labs, skin, diet orders, meds every 5 days.
[2024-12-13 11:55] LABS: Glucose Point of Care 195 mg/dl (65-105)
[2024-12-13] MEDS: amLODIPine BESYLATE 5 MG TABLET PO (12:01)
--- NOTE | 2024-12-13 14:22 | PCPTNOTE ---
Attempted to see patient for PT, however patient refused. Patient getting back to bed with nursing and adamantly refused to participated with PT. Patient reported he has sat up enough today and wanted to rest.
--- NOTE | 2024-12-13 15:18 | P.PNGS_ITS ---
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 Bowels are moving and he is tolerating a solid diet. Incisions healing well. He is stable for discharge from a surgical standpoint. has him set up to discharge to SNF in [place]. Follow-up in [address] Haney. Plan I have discussed the patient's case and plan of care with Dr. Haney. Subjective Subjective Date/Time Seen: 12/13/24 15:18 Patient reports: no new complaints, tolerating a regular diet, flatus, bowel movement and afebrile Interval history: No acute changes overnight. Accepted at [facility]. Exam Const: General: comfortable and no acute distress Orientation/consciousness: patient oriented x3 GI: Inspection: non-distended GI Palp: Yes Soft to palpation, No Tenderness to palpation present (GI), No Guarding due to palpation present (GI) and No Rebound tenderness present Auscultation: normal bowel sounds Other: Abdomen is soft and nondistended. Midline incision is healing well. No redness or drainage. No incisional hernia. No seroma. Objective Data Vital Signs Vital Signs: Vital Signs - 24 hr 12/12/24 16:00 12/12/24 20:00 12/12/24 20:00 Temperature Pulse Rate 76 76 Respiratory Rate Blood Pressure Pulse Oximetry Oxygen Delivery Room Air 12/12/24 22:00 12/13/24 00:00 12/13/24 04:00 Temperature 97.4 F L Pulse Rate 75 76 76 Respiratory Rate 18 Blood Pressure 148/69 H Pulse Oximetry 96 Oxygen Delivery 12/13/24 06:00 12/13/24 09:17 12/13/24 13:58 Temperature 97.0 F L 97.9 F Pulse Rate 75 76 75 Respiratory Rate 18 17 Blood Pressure 150/84 H 160/73 H Pulse Oximetry 98 98 Oxygen Delivery Intake/Output Intake/Output: Intake & Output 12/10/24 12/11/24 12/12/24 12/13/24 23:59 23:59 23:59 23:59 Intake Total 2764 2890 2908 2194 Output Total 2600 1 4000 2400 Balance 164 2889 -1092 -206 Meds/Results Medications: Active Medications Generic Name Dose Route Start Last Admin Trade Name Shaileshq PRN Reason Stop Dose Admin Acetaminophen 1,000 mg 12/07/24 18:20 12/12/24 20:55 Acetaminophen 500 Mg Tablet PO 1,000 mg Q6H PRN Administration Mild Pain (1-3) or Fever Hydrocodone Bitart/Acetaminophen 1 tab 12/11/24 12:44 Hydrocodone/Acetaminophen (*Crx) 5-325 Mg Tablet PO Q4H PRN Pain Rated 7-10 Alteplase, Recombinant 2 mg 12/05/24 14:04 12/09/24 19:47 Alteplase 2 Mg Vial (Cathflo) IV PUSH 2 mg ONCE PRN Administration Line Occlusion Amlodipine Besylate 5 mg 12/13/24 10:25 12/13/24 12:01 Amlodipine Besylate 5 Mg Tablet PO 5 mg DAILY BRE Administration Atorvastatin Calcium 40 mg 11/29/24 21:00 12/12/24 20:56 Atorvastatin 40 Mg Tablet PO 40 mg HS BRE Administration Calcium Carbonate 500 mg 12/06/24 08:00 12/13/24 09:17 Calcium Carbonate (Oscal) 500 Mg Tablet PO 500 mg BIDWM BRE Administration Dextrose 12.5 gm 11/29/24 02:22 Dextrose 50% 25 Gm/50 Ml Syringe IV PUSH PRN PRN Hypoglycemia Protocol Enoxaparin Sodium 40 mg 12/08/24 09:00 12/13/24 09:17 Enoxaparin 40 Mg/0.4 Ml Syringe SUB-Q 40 mg DAILY BRE Administration Ferrous Sulfate 325 mg 11/30/24 09:00 12/13/24 09:17 Ferrous Sulfate [address] BY MOUTH 325 mg DAILY BRE Administration Gabapentin 300 mg 11/29/24 13:00 12/13/24 12:01 Gabapentin 300 Mg Capsule PO 300 mg TID BRE Administration Glucose 15 gm 11/29/24 02:22 Glucose Oral Gel 15 Gm Of Glucse In 37.5 Gm Tube PO PRN PRN Hypoglycemia Protocol Dextrose 1,000 mls @ 100 mls/hr 11/29/24 02:22 Dextrose 5% 1,000 Ml IVPB PRN PRN Hypoglycemia Protocol Dextrose 1,000 mls @ 50 mls/hr 12/01/24 08:14 Dextrose 10% IV CONT .Q20H PRN if PN is interrupted Ibuprofen 600 mg 12/11/24 12:41 12/12/24 12:31 Ibuprofen 600 Mg Tablet PO 600 mg Q6H PRN Administration Pain Rated 4-6 Insulin Aspart 1 - 2 units 11/29/24 21:00 12/12/24 20:59 Insulin Aspart (*Bkc) 100 Units/Ml SUB-Q Not Given HS BRE Protocol Insulin Aspart 2 - 5 units 11/29/24 08:00 12/13/24 12:38 Insulin Aspart (*Bkc) 100 Units/Ml SUB-Q Not Given TIDWM [facility] Protocol Lidocaine 1 patch 12/08/24 09:00 12/13/24 09:18 Lidocaine 5% Patch TRANSDERM 1 patch DAILY BRE Administration Losartan Potassium 50 mg 11/29/24 21:00 12/13/24 09:17 Losartan Potassium 50 Mg Tablet PO 50 mg Q12H BRE Administration Melatonin 5 mg 11/29/24 21:00 12/12/24 20:56 Melatonin 5 Mg Tablet PO 5 mg HS BRE Administration Ondansetron HCl 4 mg 11/28/24 20:05 Ondansetron Inj 4 Mg/2 Ml Vial IV PUSH Q4H PRN Nausea Pantoprazole Sodium 40 mg 11/30/24 09:00 12/13/24 09:17 Pantoprazole 40 Mg Tablet PO 40 mg QAM BRE Administration Sodium Chloride 10 ml 12/01/24 14:00 12/13/24 08:39 Central Line Flush IV PUSH Not Given Q8HR BRE Sodium Chloride 10 ml 12/01/24 09:42 Central Line Flush IV PUSH PRN PRN with TPN bag changes Sodium Chloride 20 ml 12/01/24 09:42 12/04/24 05:36 Central Line Flush IV PUSH 20 ml PRN PRN Administration after blood draws Sotalol HCl 120 mg 11/29/24 12:00 12/13/24 09:17 Sotalol Hcl 40 Mg Tablet PO 120 mg Q12HR BRE Administration Radiology Results: ITS Impressions Chest/Abdomen/Pelvis CT 11/30/24 13:27 IMPRESSION: 1. Prominent wall thickening along the distal transverse colon concerning for colon cancer. No lesion suspicious for metastatic disease. 2. Small right and [id number] left pleural effusions with associated atelectasis in the bilateral lower lobes, left greater than right. 3. Cardiomegaly enlargement of the central pulmonary arteries consistent with pulmonary arterial hypertension. 4. Moderate-sized bilateral fat-containing inguinal hernias. 5. Minimal nonspecific ascites in the deep pelvis. Chest X-Ray 12/04/24 21:13 IMPRESSION: Bilateral airspace disease suggestive of pneumonia versus pulmonary edema. Labs Labs: Laboratory Results - last 24 hr 12/12/24 12/12/24 12/13/24 16:16 20:57 05:19 WBC 4.7 RBC 3.38 L Hgb 9.2 L Hct 31.5 L MCV 93.2 MCH 27.2 MCHC 29.2 L RDW 15.1 H Plt Count 278 MPV 10.1 Sodium 138 Potassium 4.1 Chloride 104 Carbon Dioxide 30 Anion Gap 4 BUN 16 Creatinine 0.57 L Estim Creat Clear Calc 94 Estimated GFR > 60 Glucose 120 H POC Capillary Glucose 169 H 199 H Calcium 8.7 Magnesium 2.2 12/13/24 12/13/24 08:06 11:52 WBC RBC Hgb Hct MCV MCH MCHC RDW Plt Count MPV Sodium Potassium Chloride Carbon Dioxide Anion Gap BUN Creatinine Estim Creat Clear Calc Estimated GFR Glucose POC Capillary Glucose 135 H 195 H Calcium Magnesium
--- NOTE | 2024-12-13 15:40 | P.DS_ITS ---
DS: Admitting Diagnosis Discharge Date 12/13/24 Admitting Diagnosis Swelling of hands and feet DS: Discharge Diagnosis Discharge Diagnosis (1) Colonic mass: Code(s): K63.89 - Other specified diseases of intestine Status: Acute Assessment and Plan: * Colonoscopy 11/30: Completely-obstructing circumferential, fungating, friable, infiltrative, malignant appearing mass observed in ascending colon, approx 3- 4cm. Multiple biopsies taken * GI, Gen Surg, Heme/Onc following * CEA = 7.8 * PICC Line established, to start TPN for nutrition boost and to increase Albumin * TPN and Ensure for nutrition supplementation * He is afebrile at this time with continued lack of bacterial growth on blood c ultures * scheduled for a hand-assisted laparoscopic right hemicolectomy by Dr. Haney 12/07 * Follow path from OR 12/07 * 12/11 Doing well postop (2) Anemia: Qualifiers: Anemia type: iron deficiency Iron deficiency anemia type: unspecified iron deficiency Qualified Code(s): D50.9 - Iron deficiency anemia, unspecified Code(s): D64.9 - Anemia, unspecified Status: Acute Assessment and Plan: RBC 11/29 * Telemetry monitoring * Anemia workup, unable do iron panel due to transfusion * Colonoscopy and EGD yesterday, see above * Stable * Likely related to colonic mass * Hgb 6.4 12/03: Transfused 2 units PRBC * 12/10 Hgb 8.1, 12/11 9.4 (3) Fever: Code(s): R50.9 - Fever, unspecified Status: Acute Assessment and Plan: Spiked fever of 102.4F on 12/04 * UA wnl, BC 12/04 no growth * CXR 12/04: bibasilar airspace disease concerning for pneumonia * Benign physical exam, no SOB, leukocytosis, or hypoxia * Started on Vanc + Zosyn, d/c Vanc as nasal MRSA (-) * 12/10 afebrile, 12/11 afebrile (4) Afib: Code(s): I48.91 - Unspecified atrial fibrillation Status: Acute Assessment and Plan: * Continue sotalol * stable (5) Diabetes: Code(s): E11.9 - Type 2 diabetes mellitus without complications Status: Acute Assessment and Plan: 12/10 Blood sugars 130-202 during the prior 2 days Holding home metformin * Diabetic diet * A Accu-Cheks a.c. HS * SSI (6) Weakness: Code(s): R53.1 - Weakness Status: Acute Assessment and Plan: * PT and OT * Ensure t.i.d. * PICC line inserted on 12/01 * TPN possibly stop 12/11 due to improved po intake (albumin 2.6) (7) Edema: Code(s): R60.9 - Edema, unspecified Status: Acute Assessment and Plan: * Resolved * Stop furosemide due to worsened metabolic alkalosis and trend towards hypokalemia (8) HTN (hypertension): Code(s): I10 - Essential (primary) hypertension Status: Acute Assessment and Plan: 12/11 168/74 * Continue losartan, monitor Plan Tolerated heart healthy diet. Tolerated PT. Bowels moved. No bleeding. patient c/o pain but unable to tolerate pain medication as he becomes confused and it is difficult for the patient to participate in the PT. patient is s/p resected colon mass, was seen by surgery service patient's bowl functions are improving, pathology is pending, patient is encourage to participate with PT. DS: Summary Hospital Course Hospital Course: patient is 79 y/o male who was sent from rehab to evaluate for his lower extremities edema and weakness, he was found to have anemia and GI was consulted. CT scan of abd showed prominent wall thickening along the distal transverse colon concerning for colon cancer. surgery service was consulted and patient was taken to the OR and had resection of the mass, pathology report showed adenocarcinoma, patient was seen by oncologist and was instructed to follow up as outpatient in the oncology clinic, patient was followed by surgery service, did well his diet was slowly advanced and he was able to tolerate, and his bowl function had returned to normal, patient is clinically stable, and seen by surgery service can be discharged today and discharge instruction entered by the surgery. will discharge patient today. Time Spent with Patient Time attestation: Total time spent providing and/or coordinating discharge services: Exam Narrative: Patient is comfortable, NAD HEENT: eyes are clear and none icteric LUNGS:CTA HEART: RR S1S2 ABD: BS+, Soft and nontender Lower extremities: no edema SKIN: nonjaundiced Neuro: grossly intact. DS: Data Data Completed and Pending Completed studies during hospitalization: Pending at discharge 11/30/24 12:33 Surgical [PTH] Routine 12/07/24 15:13 Surgical [PTH] Routine Labs on day of discharge: Labs from last 24 hours 12/13/24 12/13/24 12/13/24 11:52 08:06 05:19 WBC 4.7 RBC 3.38 L Hgb 9.2 L Hct 31.5 L MCV 93.2 MCH 27.2 MCHC 29.2 L RDW 15.1 H Plt Count 278 MPV 10.1 Sodium 138 Potassium 4.1 Chloride 104 Carbon Dioxide 30 Anion Gap 4 BUN 16 Creatinine 0.57 L Estim Creat Clear Calc 94 Estimated GFR > 60 Glucose 120 H POC Capillary Glucose 195 H 135 H Calcium 8.7 Magnesium 2.2 12/12/24 12/12/24 20:57 16:16 WBC RBC Hgb Hct MCV MCH MCHC RDW Plt Count MPV Sodium Potassium Chloride Carbon Dioxide Anion Gap BUN Creatinine Estim Creat Clear Calc Estimated GFR Glucose POC Capillary Glucose 199 H 169 H Calcium Magnesium Discharge Plan Discharge Attending physician on discharge: Samira Bocanegra Consulting providers: Manjinder Haney; Kaye Ramos Discharging Clinician: Ana M Craft Patient Disposition: [facility] Activity: may shower, no driving and other - see discharge instructions Diet: heart healthy and diabetic Wound Care Instructions: incision open to air Discharge Instructions: * Incisions open to air. May shower over incisions daily. Do not submerge in a bath x 2 weeks. * Walk at least 3 times daily. Continue physical therapy. Stairs are okay. * No lifting more than 10-15 lbs x 6 weeks. Lifting restrictions will be discussed in follow-up. * Follow-up with Dr. Haney in our office in 2 weeks. Call for an appointment. [phone] * Call the surgeon or return to the ER if you develop fevers, vomiting, abdominal pain, or redness/drainage from incisions. * * patient to follow discharge care instruction from his surgeon and follow up as scheduled. patient to follow up with his primary care provider as soon as possible. Patient Instructions: Antibiotic Form Patient Language: Amharic Stand Alone Forms: General Discharge Information Follow-up/Referrals: Renetta,MD Gege [Primary Care Provider] - Manjinder Haney MD [Physician] - 2 Weeks Discharge Medications: New amlodipine [Norvasc] 5 mg Tablet 5 mg PO DAILY Qty: 30 0RF Continued melatonin 5 mg capsule 5 mg PO HS guaifenesin [Mucinex] 600 mg tablet extended release 12hr 600 mg PO Q12H PRN (Reason: congestion) potassium chloride [Klor-Con 10] 10 mEq tablet extended release 20 meq PO DAILY Antacid Calcium 215 mg calcium (500 mg) tablet,chewable 430 mg PO HS cetirizine [24Hour Allergy] 10 mg tablet 10 mg PO DAILY fluticasone propionate [Flonase Allergy Relief] 50 mcg/actuation spray,suspension 1 spray INTRANASAL DAILY losartan 50 mg tablet 50 mg PO Q12H metformin 750 mg tablet extended release 24 hr 750 mg PO QPM sotalol 120 mg tablet 120 mg PO Q12H furosemide [Lasix] 20 mg tablet 40 mg PO DAILY acetaminophen 500 mg tablet 1,000 mg PO Q8H aspirin 81 mg tablet,chewable 81 mg PO DAILY gabapentin 300 mg capsule 300 mg PO TID lidocaine 5 % adhesive patch,medicated 2 patch topical Q24H Rx Instructions: leave on most painful area for up to 12 hrs polyethylene glycol 3350 17 gram powder in packet 17 g PO DAILY sennosides 8.6 mg tablet 17.2 mg PO DAILY atorvastatin [Lipitor] 40 mg tablet 40 mg PO HS cholecalciferol (vitamin D3) 25 mcg (1,000 unit) tablet 2,000 unit PO DAILY cyanocobalamin (vitamin B-12) 1,000 mcg tablet 1,000 mcg PO DAILY apixaban 5 mg tablet 5 mg PO BID ferrous sulfate 325 mg (65 mg iron) tablet 325 mg PO DAILY pantoprazole 40 mg tablet,delayed release (DR/EC) 40 mg PO QAM oxycodone 5 mg Tablet 5 mg PO Q6H PRN (Reason: pain rated 1-10) Qty: 28 0RF Date of admission: 11/29/24 08:08 Primary Care Provider: Renetta,Gege Admitting Provider: Kiara Bhakta Attending physician on admission: Samira Bocanegra Condition: Stable
[2024-12-13 17:18] LABS: Glucose Point of Care 170 mg/dl (65-105)
== END 2024-12-13 18:42 | DRG 330 ==
LOC: ANHED 20:07 → ANH3MED 20:42
PROVIDERS: Internal Medicine; Internal Medicine Gastroenterology; Nurse Practitioner Acute Care; Nurse Practitioner Family; Nurse Practitioner Gerontology; Physician Assistant; Registered Nurse; Surgery; Admitting Provider General Practice; Emergency Provider Emergency Medicine; PCP Internal Medicine; Visit Provider Family Medicine
PROC: 0DJ08ZZ Inspection of Upper Intestinal Tract, Via Natural or Artificial Opening Endoscopic (ICD-10-PCS; CPT 45378; principal; 2024-11-30 15:00)
PROC: 0DTF4ZZ Resection of Right Large Intestine, Percutaneous Endoscopic Approach (ICD-10-PCS; CPT 44204; principal; 2024-12-07 12:00)
DX: C18.9 Malignant neoplasm of colon, unspecified (principal); E46 Unspecified protein-calorie malnutrition; N39.0 Urinary tract infection, site not specified; B96.1 Klebsiella pneumoniae [K. pneumoniae] as the cause of diseases classified elsewhere; D50.9 Iron deficiency anemia, unspecified; E11.9 Type 2 diabetes mellitus without complications; I48.91 Unspecified atrial fibrillation; I10 Essential (primary) hypertension; I25.10 Atherosclerotic heart disease of native coronary artery without angina pectoris; K64.9 Unspecified hemorrhoids; K63.5 Polyp of colon; K21.9 Gastro-esophageal reflux disease without esophagitis; R50.9 Fever, unspecified; Z95.1 Presence of aortocoronary bypass graft; Z95.0 Presence of cardiac pacemaker; Z85.46 Personal history of malignant neoplasm of prostate; Z87.891 Personal history of nicotine dependence; Z20.822 Contact with and (suspected) exposure to COVID-19; Z79.01 Long term (current) use of anticoagulants; Z79.84 Long term (current) use of oral hypoglycemic drugs; Z90.79 Acquired absence of other genital organ(s)
CPT/HCPCS: 36415; 36430; 36569; 71045; 71046; 71260; 74177; 80048; 80053; 80076; 81001; 81003; 82040; 82378; 82607; 82746; 82948; 83540; 83550; 83605; 83735; 83880; 84100; 84145; 84443; 84466; 84478; 84484; 85014; 85018; 85025; 85027; 85610; 85730; 86850; 86900; 86901; 86923; 87040; 87086; 87186; 87637; 87641; 88305; 88307; 88342; 93005; 96361; 96365; 96375; 97110; 97116; 97161; 97162; 97166; 97530; 97535; 99285; A9270; C1751; G0378; J0360; J0612; J0696; J1100; J1171; J1650; J1741; J1756; J1815; J1938; J2003; J2004; J2250; J2405; J2543; J2704; J2997; J3010; J3370; J7050; J7120; P9016; P9047; Q9967

== ENCOUNTER 2025-07-04 09:37 | Outpatient (CLI) | payer MEDICARE, SELFPAY ==
--- NOTE | ~2025-07-04 | CT_ITS ---
EXAMINATION: CT abdomen pelvis w con DATE: 07/04/2025 10:13 INDICATION: Malignant neoplasm of the transverse colon. Further details not available. TECHNIQUE: Computed tomography (CT) of the abdomen and pelvis was performed without intravenous contrast. Automated exposure control and iterative reconstruction technique were employed. The dose-length product was 610.81 mGy-cm. COMPARISON: CT chest, abdomen and pelvis dated 11/30/2024. FINDINGS: Cardiomegaly in the lower chest with postsurgical changes. Small left pleural effusion. No evidence of metastatic lesions to the liver and spleen. Gallbladder, pancreas and the kidneys are normal. Previously noted mass of the distal transverse colon is not seen now. No retroperitoneal adenopathy or ascites. Calcific atherosclerotic changes at the origin of celiac axis and superior mesenteric artery and renal arteries. No inflammatory changes pelvis. No lymphadenopathy. Degenerative disc disease at L4-5 level. IMPRESSION: 1. Interval postsurgical changes of transverse colon with minimal of the previously noted soft tissue mass of the transverse colon. 2. No evidence of metastatic disease to the liver. No evidence of abdominal or pelvic lymphadenopathy. 3. Significant calcific atherosclerotic changes at the origin of renal arteries, celiac axis and superior mesenteric artery. 4. Left pleural effusion. Reviewed, dictated and finalized at location [facility] IMPRESSION: 1. Interval postsurgical changes of transverse colon with minimal of the previo usly noted soft tissue mass of the transverse colon. 2. No evidence of metastatic disease to the liver. No evidence of abdominal or pelvic lymphadenopathy. 3. Significant calcific atherosclerotic changes at the origin of renal arteries , celiac axis and superior mesenteric artery. 4. Left pleural effusion.
[2025-07-04 10:04] LABS: Estimated Glomerular Filt Rate > 60
--- OUTSIDE RECORDS SUMMARY | 2025-07-04 10:32 | XMS_ITS | Encounter Summary ---
Author Organization [facility] Address [address] [place] [address] Care Team Providers Care Assistant Front Office Manager Name Role Phone Gege Jackson MD Primary Care Provider Encounter Details Date Type Department Care Team (Late st Contact Info) Description 07/19/2020 Lab Requisition [facility] [address] [place] [id number] Jose Manuel Perea MD [address] [address] Social History Tobacco Use Types Packs/Day Years Used Date Smoking Tobacco: Never Assessed Sex and Gender Information Value Date Recorded Sex Assigned at Not on file Legal 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 Gender Identity Not on file Sexual Orientation Not on file documented as of this encounter Plan of Treatment Not on file documented as of this encounter Procedures Procedure Name Priority Date/Time Associated Diagnosis Comments DERMATOPATHOLOGY Routine 07/18/2020 12:0 0 AM TOUCH UP WORKER documented in this encounter Results * DERMATOPATHOLOGY (07/18/2020 12:00 AM TOUCH UP WORKER) Case Report Dermatopathology Report Case: [id number] Authorizing Provider: Jose Manuel Perea MD Collected: 07/18/2020 12:00 AM Ordering Location: [facility] Received: 07/19/2020 11:28 AM Pathologist: Osiel Rangel MD Specimen: Skin, dorsal right wrist 0 4:03 PM TOUCH UP WORKER DERMATOPATHOLOGY LABORATORY Final Diagnosis Specimen A. 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 Check margins. 0 4:03 PM [facility] DERMATOPATHOLOGY [facility] Gross Description Specimen A: Received is one formalin filled container labeled with the patient's name and designated dorsal right wrist. The specimen consists of a curettage and desiccation biopsy measuring [id number]. The margin is inked green. Jar 0. 0 4:03 PM [facility] DERMATOPATHOLOGY [facility]OR[facility]ORY Microscopic Description Specimen A. SKIN, dorsal right wrist: Sections reveal parakeratosis, acanthosis and keratinocyte dysmaturation which is most prominent in the lower epidermis. Focal nests are present in the dermis. This lesion is not present at the sampled margin of the specimen. 0 4:03 PM [facility] DERMATOPATHOLOGY [facility]OR[facility] Disclaimer An external and internal positive and negative controls are appropriate for the histochemical, immunohistochemical and immunofluorescence stain(s) in this case (if any), except where stated explicitly. The performance characteristics of the stain(s) cited in this report were developed and its performance characteristic determined by the Dermatopathology Laboratory at [facility], directed by Dr. Odessa Rangel. These tests need not be, and therefore are not, approved by the [place] Food and Drug Administration. The tests are used for clinical purposes. Billing Codes Specimen Charges Stain Charges 13880 1 0 4:03 PM [facility] DERMATOPATHOLOGY [facility] Embedded Images 0 4:03 PM [facility] DERMATOPATHOLOGY [facility] Pathology/Cytolog y TISSUE SPECIMEN FROM SKIN / Unknown 07/18/2020 07/19/2020 11:28 AM [facility] Jose Manuel Perea MD LAB - PATHOLOGY/CYTOLOGY ORD ERABLES Final Result DERMATOPATHOLOGY LABORATORY [facility] - Department of Dermatology [address] [phone] documented in this encounter Visit Diagnoses Not on filedocumented in this encounter Additional Health Concerns Infection Onset Date Last Indicated Resolved Time COVID-19 Under Investigation 08/26/2024 08/26/2024 08/26/2024 11:01 PM TOUCH UP WORKER documented as of this encounter Care Teams Assistant Front Office Manager Relationship Specialty Start Date End Date Gege Jackson MD [address] [id number] PCP - General Internal Medicine 08/26/24 documented as of this encounter
--- OUTSIDE RECORDS SUMMARY | 2025-07-04 10:32 | XMS_ITS | Patient Health Record ---
Author Organization [facility] Address [address] [place] [address] Care Team Providers Care Net Lead Developer Name Role Phone Dionisio Mcclendon DC Unavailable Unavailable Reason For Referral No Information Plan Of Treatment No Information Insurance Providers Payer Name Payer Address Payer Phone Subscriber Number Group Number Insured Name Patient Relationship to Insured Coverage Start Date Coverage End Date Medicare of [place] [facility] [address] [address] [place] [address] [id number] Jose Manuel Floyd Self - patient is the insured 6
--- OUTSIDE RECORDS SUMMARY | 2025-07-04 10:32 | XMS_ITS | Clinical Summary ---
Author Organization [facility] Address [address] [place] [address] Care Team Providers Care Kindergarten Instructional Assistant Name Role Phone Gege Jackson MD Primary Care Provider Source Comments [facility],non-owned Affiliates and Associated Physician Practices is amultiple site organization consisting of ambulatory clinics and hospital sitesin [place], [place], [place] and [place]. This disclosure is being madepursuant to the Care Everywhere program and may not contain all information available regarding this patient. Last updated 18.[facility] Allergies Active Allergy Reactions Criticality Noted Date [...] 17 (seventeen) g by mouth once daily 5 Active senna (Senokot Extra Strength) 17.2 MG Take 17.2 mg by mouth once daily 5 Active Active Problems Problem Noted Date Diagnosed Date Severe malnutrition 08/29/2024 Leukopenia, unspecified type 08/26/2024 Ecchymosis 08/26/2024 Anemia, unspecified type 08/26/2024 Fall, initial encounter 08/26/2024 Hemopneumothorax on left 08/26/2024 Fracture of multiple ribs of left side 5 Acute pain 08/26/2024 Contusion of left lung 08/26/2024 Immunizations Immunization Administration Dates Next Due TDAP [...] and heating? Not hard at all 08/28/2024 [facility] - Occupational Stress [...] any time in the past 12 m [facility], were you homeless or living in a [facility] (including now)? 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 Gender Identity Not on file Sexual Orientation Not on file Last Filed Vital Signs Vital Sign Reading Time Taken Comments Blood Pressure 154/70 11/03/2024 12:36 PM CDT Pulse 54 11/03/2024 12:36 PM CDT Temperature 37 C (98.6 F) 09/05/2024 11:14 AM LAND ACQUISITION MANAGER Respiratory Rate 20 09/05/2024 11:14 AM LAND ACQUISITION MANAGER Oxygen Saturation 92% 11/03/2024 12:36 PM [...] yrs (1 - 1-dose 75+ series) 2019 DEPRESSION SCREENING 08/10/2024 COVID-19 VACCINE (2024- season) 2025 01/19/2024, 05/22/2022, 05/21/2022, Additional history exists INFLUENZA VACCINE (#1) 2025 , 06/01/2023, 05/21/2022, Additional history exists DTAP/TDAP/TD VACCINES (2 - Td or Tdap) 08/26/2034 08/26/2024 HEPATITIS B VACCINE Aged Out No longe [...] age to complete this topic Insurance MEDICARE MEDICARE [facility]THE[facility] FFS Advance Directives * Full Code (Latest Code Status on File) Date Activated Date Inactivated Comments 08/26/2024 5:35 AM 09/05/2024 4:25 PM Care Teams Kindergarten Instructional Assistant Relationship Specialty Start Date End Date Gege Jackson MD [address] [id number] PCP - General Internal Medicine 08/26/24
--- OUTSIDE RECORDS SUMMARY | 2025-07-04 10:32 | XMS_ITS | Data Portability ---
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 Lab vitamin D, 25-hydrox y, total, serum [email or web address] [place] [address] (Lab), [address] [place], [address], 5 08:30:57 CMP, serum or plasma 2024 [email or web address] [place] [address] (Lab), [address] [place], [address], 5 08:30:58 CBC w/ auto diff 2024 [email or web address] [place] [address] (Lab), [address] [place], [address], 5 08:30:58 lipid panel, serum 2024 [email or web address] [place] [address] (Lab), [address] [place], [address], 5 08:30:58 TSH, serum or plasma 2024 [email or web address] [place] [address] (Lab), [address] [place], [address], 5 08:30:58 glycohemo globin, total, blood 2024 [email or web address] [place] [address] (Lab), [address] [place], [address], 5 08:30:58 microalbu min, urine 2024 025 [email or web address] (Lab), [address] [place], [address], 5 08:30:58 vitamin B12 + folate, serum or blood 2024 025 [email or web address] [address] [place] [address] (Lab), [address] [place], [address], 5 08:30:57 vitamin D, 25-hydrox y, total, serum 2023 024 [email or web address] [address] [place] [address] (Lab), [address] [place], [address], 5 10:07:43 CMP, serum or plasma [address] (Lab), [address] [place], [address], 5 10:07:43 CBC w/ auto diff [address] (Lab), [address] [place], [address], 5 10:07:44 lipid panel, serum [address] (Lab), [address] [place], [address], 5 10:07:44 TSH, serum or plasma [address] (Lab), [address] [place], [address], 5 10:07:44 glycohemo globin, total, blood [address] (Lab), [address] [place], [address], 5 10:07:43 microalbu min, urine [address] (Lab), [address] [place], [address], 5 10:07:43 vitamin B12 + folate, serum or blood [address] (Lab), [address] [place], [address], 5 10:07:42 vitamin D, 25-hydrox y, total, serum [address] (Lab), [address] [place], [address], 5 17:49:25 CMP, serum or plasma 2023 [facility] (Lab), [address] [place], [address], 4 13:39:05 CBC w/ auto diff 2023 [facility] (Lab), [address] [place], [address], 4 13:14:56 lipid panel, serum 2023 [facility] (Lab), [address] [place], [address], 4 13:39:09 TSH, serum or plasma 2023 [facility] (Lab), [address] [place], [address], 4 14:38:11 glycohemo globin, total, blood 2023 024 [facility] (Lab), [address] [place], [address], 4 21:04:12 microalbu min, urine 2023 024 [facility] (Lab), [address] [place], [address], 4 14:44:42 vitamin B12 + folate, serum or blood [address] (Lab), [address] [place], [address], 5 17:49:25 vitamin D, 25-hydrox y, total, serum [address] (Lab), [address] [place], [address], 4 11:07:05 CMP, serum or plasma [address] (Lab), [address] [place], [address], 4 11:07:06 CBC w/ auto diff [address] (Lab), [address] [place], [address], 4 11:07:06 lipid panel, serum [address] (Lab), [address] [place], [address], 4 11:07:06 TSH, serum or plasma [address] (Lab), [address] [place], [address], 4 11:07:06 glycohemo globin, total, blood [address] (Lab), [address] [place], [address], 4 11:07:05 microalbu min, urine [address] (Lab), [address] [place], [address], 4 11:07:05 vitamin B12 + folate, serum or blood [address] (Lab), [address] [place], [address], 4 11:07:05 vitamin D, 25-hydrox y, total, serum [address] (Lab), [address] [place], [address], 4 14:05:52 CMP, serum or plasma 2023 024 [facility] (Lab), [address] [place], [address], 4 20:08:33 CBC w/ auto diff 2023 024 [facility] (Lab), [address] [place], [address], 4 19:17:43 lipid panel, serum 2023 024 [facility] (Lab), [address] [place], [address], 4 20:08:38 TSH, serum or plasma 2023 024 [facility] (Lab), [address] [place], [address], 4 20:28:35 glycohemo globin, total, blood 2023 024 [facility] (Lab), [address] [place], [address], 4 20:06:51 microalbu min, urine 2023 024 [facility] (Lab), [address] [place], [address], 4 16:33:50 vitamin B12 + folate, serum or blood [email or web address] [place] [address] (Lab), [address] [place], [address], 4 14:05:52 Referral nephrolog ist referral 2024 025 [email or web address] [place], [address] [address] , [facility] [address], [place], [address], 5 08:04:38 pain managemen t referral 2024 025 [email or web address] Molly Stevenson MD, [address], [place], [address], 5 08:04:39 cardiolog ist referral 2024 025 [email or web address] Rangel Slaughter MD, [address] [facility], [facility] [address], [place], [address], 5 08:04:37 podiatris t referral 2024 025 [email or web address] Kaveh Godfrey DPM, [address], [place], [address], 5 08:05:05 nephrolog ist referral 2023 024 [email or web address] [place], [address], [address], [place], [address], 4 11:40:46 pain managemen t referral 2023 024 Molly Stevenson MD, [address], [place], [address], 11:40:47 hematolog ist referral 2023 024 [email or web address] Dylon Guzman MD, [address], [place], [address], 11:41:50 cardiolog ist referral 2023 024 Rangel Slaughter MD, [address] [facility], [address], [place], [address], 11:40:45 podiatris t referral 2023 024 [email or web address] Kaveh Godfrey DPM, [address], [place], [address], 4 11:41:50 nephrolog ist referral 2023 024 [email or web address] [place], [address] [address], [address], [place], [address], 4 12:39:58 pain managemen t referral 2023 024 elaine Stevenson MD, [address], [place], [address], 4 12:40:25 hematolog ist referral 2023 024 [email or web address] 82 Dylon Guzman MD, [address], [place], [address], 5 09:09:37 cardiolog ist referral 2023 024 Rangel Slaughter MD, [address], [address], [place], [address], 4 12:38:46 podiatris t referral 2023 024 [email or web address] 82 Kaveh Godfrey DPM, [address], [place], [address], 5 09:09:37 nephrolog ist referral 2023 024 [place], [address] [facility], [facility] [address], [place], [address], 12:40:03 pain managemen t referral 2023 024 [email or web address] [facility], [address], [address], [place], [address], 12:40:49 hematolog ist referral 2023 024 [email or web address] Dylon Guzman MD, [address], [place], [address], 4 12:21:31 cardiolog ist referral 2023 024 Rangel Slaughter MD, [address], [address], [place], [address], 4 12:21:02 podiatris t referral 2023 024 [email or web address] Kaveh Godfrey DPM, [address], [place], [address], 4 12:21:32 nephrolog ist referral 2023 024 [email or web address] 6 [place], [address] [address] , [address], [place], [address], 4 14:06:14 pain managemen t referral 2023 024 [email or web address] [facility], [address], [address], [place], [address], 4 08:52:29 hematolog ist referral 2023 024 [email or web address] 6 Dylon Guzman MD, [address], [place], [address], 4 14:06:12 cardiolog ist referral 2023 024 [email or web address] Rangel Slaughter MD, [address] [facility], [address], [place], [address], 4 08:52:17 podiatris t referral 2023 024 [email or web address] Kaveh Godfrey DPM, [address], [place], [address], 4 14:06:13 Procedures None recorded. Surgeries None recorded. Imaging None recorded. Medication Orders Kerendia 20 mg tablet 2024 025 [facility] #10514, [address], [place], [place], [id number], 5 17:12:34 ferrous sulfate 325 mg (65 mg iron) tablet 2024 025 [facility] #10054, [address], [place], [place], [id number], 5 17:12:33 Kerendia 20 mg tablet 2023 024 [email or web address] [facility] #17100, [address] [facility], [place], [place], [id number], 4 15:59:20 Kerendia 20 mg tablet 2023 024 [facility], [address] [place] [address], [id number], 4 17:21:31 atorvasta tin 80 mg tablet 2023 024 [email or web address] [facility] #95130, [address] [facility], [place], [place], [id number], 15:24:04 Kerendia 20 mg tablet 2023 024 [facility] #70421, [address] [place] [address], [id number], 15:09:56 Kerendia 20 mg tablet 2023 024 [facility] #62985, [address] [place] [address], [id number], 4 15:47:56 Patient TargetsNo targets recorded. Patient Instructions Encounter Date Encounter Id Patient Instructions Last Modified By Organization Details Last Modified Time 09/28/2023 [id number] diabetic eye exam* [email or web address] Not avail able 03/28/2024 14:05:36 05/11/2024 [id number] Due to the COVID -19 (Novel Coronavirus) pandemic, it is within this context (and with the understanding that this method of patient encounter is in the patient s best interest as well as the health and safety of other patients and the public) that [facility] is being provided for this patient encounter rather than a maok-ms-izmk visit. This patient encounter is appropriate at this time. This patient has been advised of the potential risks and limitations of this mode of treatment (including, but not limited to, the absence of in-person examination) and has agreed to be treated in a remote fashion despite these risks. Any and all of the patient s /patient s family s questions on this issue [...] the patient. Not available 05/11/2024 16:40:58 07/20/2024 [id number] dementia rating scale-2* [email or web address] Not available 07/20/2024 17:02:01 alcohol misuse* Not available 07/20/2024 17:02:15 depression screening* [email or web address] Not available 07/20/2024 17:02:30 Timed Up and Go test (TUG)* Not available 07/20/2024 17:02:47 multi-dimensiona l health assessment questionnaire* [email or web address] Not available 07/20/2024 17:01:52 Personalized [facility] Plan and Screening Recommendations Advance Directives - [...] time to no more than 5hr/day Nutrition: Average Refer to attached handout Heart-Healthy Diet: After Your Visit Fall Risk (screened today): High Refer to attached handout Preventing Falls: After your Visit Vaccines Pneumococcal: No further needed Influenza: Recommended today Chronic Disease Risks Stroke: Intermediate Risk Active diagnosis, Continue current treatment plan Heart Attack: Intermediate Risk Follow Heart Healthy Diet. Clogging of the Arteries: Intermediate Risk Follow Heart Healthy Diet. Diabetes: High Risk Active diagnosis, Continue current treatment plan Secondary Prevention/Interven tion (detects treatable diseases before they may cause symptoms, disability, or ) Prostate Cancer Screening: Your next PSA in:Ordered Colon Cancer Screening: Declined _ Eye Disease Screening: Recommended today Dementia Risk: Low I have no recommendations Depression Screening: Negative [email or web address] Not available 07/20/2024 17:04:03 Reason for Referral Referring Physician: Yulia Jackson, Internal Medicine, Encounter Date: 09/28/2023 Catering Service Manager Referral for Type 2 diabetes mellitus without complication Referring Physician: Yulia Jackson Internal Medicine, Encounter Date: 09/28/2023 Research Chef Referral for Es sential hypertension Referring Physician: Yulia Jackson Internal Medicine, Encounter Date: 09/28/2023 Apprenticeship Representative Referral for Hy percalcemia Referring Physician: Yulia Jackson [facility], Encounter Date: 09/28/2023 Pain Management Referral for Low back pain Referring Physician: Yulia Jackson Internal [facility], Encounter Date: 09/28/2023 Referring Physician: Courtney Farley, Encounter Date: 01/25/2024 Catering Service Manager Referral for Type 2 diabetes mellitus without complication Referring Physician: Courtney Farley, Encounter Date: 01/25/2024 Research Chef Referral for Es sential hypertension Referring Physician: Courtney Farley, Encounter Date: 01/25/2024 Apprenticeship Representative Referral for Hy percalcemia Referring Physician: Courtney Farley, Encounter Date: 01/25/2024 Pain Management Referral for Low back pain Referring Physician: Courtney Farley, Encounter Date: 01/25/2024 Referring Physician: Courtney Farley, Encounter Date: 05/11/2024 Catering Service Manager Referral for Type 2 diabetes mellitus without complication Referring Physician: Courtney Farley, Encounter Date: 05/11/2024 Research Chef Referral for Es sential hypertension Referring Physician: Courtney Farley, Encounter Date: 05/11/2024 Apprenticeship Representative Referral for Hy percalcemia Referring Physician: Yulia Jackson Internal Medicine, Encounter Date: 05/11/2024 Pain Management Referral for Low back pain Referring Physician: Courtney Farley Medicine, Encounter Date: 05/11/2024 Catering Service Manager Referral for Type 2 diabetes mellitus without complication Referring Physician: Yulia Jackson Internal [facility], Encounter Date: 07/20/2024 Research Chef Referral for Es sential hypertension Referring Physician: Yulia Jackson Internal [facility], Encounter Date: 07/20/2024 Apprenticeship Representative Referral for Hy percalcemia Referring Physician: Yulia Jackson Internal Medicine, Encounter Date: 07/20/2024 Pain Management Referral for Low back pain Referring Physician: Courtney Farley Medicine, Encounter Date: 07/20/2024 Referring Physician: Courtney Farley Medicine, Encounter Date: 07/20/2024 Catering Service Manager Referral for Type 2 diabetes mellitus without complication Referring Physician: Yulia Jackson Internal [facility], Encounter Date: 08/17/2024 Research Chef Referral for Es sential hypertension Referring Physician: Courtney Farley, Encounter Date: 08/17/2024 Apprenticeship Representative Referral for Hy percalcemia Referring Physician: Courtney Farley Medicine, Encounter Date: 08/17/2024 Pain Management Referral for Low back pain Referring Physician: Courtney Farley, Encounter Date: 08/17/2024 Results Created Date Observation Date Name Description Value Unit Range Abnormal Flag Note LastModifiedBy Organization Detail LastModifiedTime 09/28/19 24 09/28/2023 CBC/C OMPLE TE BLD COUNT W/DIF F white blood cells 4.6 x10'3 /uL 4.2-10 .8 Not Available [facility] (Lab) [address] [place], [address], 09/28/2023 19:17:43 09/28/19 24 09/28/2023 CBC/C OMPLE TE BLD COUNT W/DIF F red blood cells 3.82 x10'6 /uL 4.10-5 .80 low Not Available [facility] (Lab) [address] [place], [address], 09/28/2023 19:17:43 09/28/19 24 09/28/2023 CBC/C OMPLE TE BLD COUNT W/DIF F hemoglobin 11.4 g/dL 13.2-1 7.0 low Not Available [facility] (Lab) [address] [place], [address], 09/28/2023 19:17:43 09/28/19 24 09/28/2023 CBC/C OMPLE TE BLD COUNT W/DIF F hematocrit 36.6 % 39.3-5 0.0 low Not Available [facility] (Lab) [address] [place], [address], 09/28/2023 19:17:43 09/28/19 24 09/28/2023 CBC/C OMPLE TE BLD COUNT W/DIF F mean red cell volume 95.8 fL 80.0-9 7.0 Not Available [facility] (Lab) [address] [place], [address], 09/28/2023 19:17:43 09/28/19 24 09/28/2023 CBC/C OMPLE TE BLD COUNT W/DIF F mean red cell hemoglobin 29.8 pg 27.0-3 3.0 Not Available [facility] (Lab) [address] [place], [address], 09/28/2023 19:17:43 09/28/19 24 09/28/2023 CBC/C OMPLE TE BLD COUNT W/DIF F mean RBC HGB concentratio n 31.1 g/dL 31.0-3 6.0 Not Available [facility] (Lab) [address] [place], [address], 09/28/2023 19:17:43 09/28/19 24 09/28/2023 CBC/C OMPLE TE BLD COUNT W/DIF F red cell distribution width 13.2 % 11.8-1 5.5 Not Available [facility] (Lab) [address] [place], [address], 09/28/2023 19:17:43 09/28/19 24 09/28/2023 CBC/C OMPLE TE BLD COUNT W/DIF F platelets 202 x10'3 /uL 150-40 0 Not Available [facility] (Lab) [address] [place], [address], 09/28/2023 19:17:43 09/28/19 24 09/28/2023 CBC/C OMPLE TE BLD COUNT W/DIF F mean platelet volume 10.7 fL 9.0-12 .4 Not Available [facility] (Lab) [address] [place], [address], 09/28/2023 19:17:43 09/28/19 24 09/28/2023 CBC/C OMPLE TE BLD COUNT W/DIF F neutrophils 69.9 % 39.0-7 2.0 Not Available [facility] (Lab) [address] [place], [address], 09/28/2023 19:17:43 09/28/19 24 09/28/2023 CBC/C OMPLE TE BLD COUNT W/DIF F lymphocytes 18.9 % 16.0-4 7.0 Not Available [facility] (Lab) [address] [place], [address], 09/28/2023 19:17:43 09/28/19 24 09/28/2023 CBC/C OMPLE TE BLD COUNT W/DIF F monocytes 8.1 % 5.0-12 .0 Not Available [facility] (Lab) [address] [place], [address], 09/28/2023 19:17:43 09/28/19 24 09/28/2023 CBC/C OMPLE TE BLD COUNT W/DIF F eosinophils 2.0 % 1.0-7. 0 Not Available [facility] (Lab) [address] [place], [address], 09/28/2023 19:17:43 09/28/19 24 09/28/2023 CBC/C OMPLE TE BLD COUNT W/DIF F basophils 0.9 % 0.0-2. 0 Not Available [facility] (Lab) [address] [place], [address], 09/28/2023 19:17:43 09/28/19 24 09/28/2023 CBC/C OMPLE TE BLD COUNT W/DIF F immature granulocytes 0.2 % 0.00-0 .50 Not Available [facility] (Lab) [address] [place], [address], 09/28/2023 19:17:43 09/28/19 24 09/28/2023 CBC/C OMPLE TE BLD COUNT W/DIF F neutrophils, absolute count 3.18 x10'3 /uL 1.5-8. 0 Not Available [facility] (Lab) [address] [place], [address], 09/28/2023 19:17:43 09/28/19 24 09/28/2023 CBC/C OMPLE TE BLD COUNT W/DIF F lymphocytes, absolute count 0.86 x10'3 /uL 1.07-3 .43 low Not Available [facility] (Lab) [address] [place], [address], 09/28/2023 19:17:43 09/28/19 24 09/28/2023 CBC/C OMPLE TE BLD COUNT W/DIF F monocytes, absolute count 0.37 x10'3 /uL 0.29-0 .99 Not Available [facility] (Lab) [address] [place], [address], 09/28/2023 19:17:43 09/28/19 24 09/28/2023 CBC/C OMPLE TE BLD COUNT W/DIF F eosinophils, absolute count 0.09 x10'3 /uL 0.02-0 .53 Not Available [facility] (Lab) [address] [place], [address], 09/28/2023 19:17:43 09/28/19 24 09/28/2023 CBC/C OMPLE TE BLD COUNT W/DIF F basophils, absolute count 0.04 x10'3 /uL 0.01-0 .08 Not Available [facility] (Lab) [address] [place], [address], 09/28/2023 19:17:43 09/28/19 24 09/28/2023 CBC/C OMPLE TE BLD COUNT W/DIF F immature granulocytes ,absolute 0.01 x10'3 /uL 0.00-0 .05 Not Available [facility] (Lab) [address] [place], [address], 09/28/2023 19:17:43 09/28/19 24 09/28/2023 CBC/C OMPLE TE BLD COUNT W/DIF F nucleated red blood cells 0.0 % -0 Not Available [facility] (Lab) [address] [place], [address], 09/28/2023 19:17:43 09/28/19 24 09/28/2023 CBC/C OMPLE TE BLD COUNT W/DIF F NRBC# 0.00 x10'3 /uL Not Available [facility] (Lab) [address] [place], [address], 09/28/2023 19:17:43 09/28/19 24 09/28/2023 HEMOG LOBIN A1C HA1C 6.5 % 4.0-6. 0 high Diabe gary Rekhae cameron Crite cristofer: <5.7% Consi stent with absen ce of diabe gary 5.7-6 .4% Consi stent with incre ased risk for diabe gary (pred iabet es) >OR=6 .5% Consi stent with diabe gary REFER ENCE: Diabe gary Care 2016, 39(Moreno ppl.1 ):s13 -s22 Not Available [facility] (Lab) [address] [place], [address], 09/28/2023 20:06:51 09/28/19 24 09/28/2023 COMPR EHENS MICHAEL METAB OLIC PANEL sodium 143 mmol/ L 137-14 5 Not Available [facility] (Lab) [address] [place], [address], 09/28/2023 20:08:33 09/28/19 24 09/28/2023 COMPR EHENS MICHAEL METAB OLIC PANEL potassium 4.4 mmol/ L 3.5-5. 1 Not Available [facility] (Lab) [address] [place], [address], 09/28/2023 20:08:33 09/28/19 24 09/28/2023 COMPR EHENS MICHAEL METAB OLIC PANEL chloride 108 mmol/ L 98-107 high Not Available [facility] (Lab) [address] [place], [address], 09/28/2023 20:08:33 09/28/19 24 09/28/2023 COMPR EHENS MICHAEL METAB OLIC PANEL carbon dioxide 28 mmol/ L 22-30 Not Available [facility] (Lab) [address] [place], [address], 09/28/2023 20:08:33 09/28/19 24 09/28/2023 COMPR EHENS MICHAEL METAB OLIC PANEL anion gap 11.4 mmol/ L 14-22 low Not Available [facility] (Lab) [address] [place], [address], 09/28/2023 20:08:33 09/28/19 24 09/28/2023 COMPR EHENS MICHAEL METAB OLIC PANEL glucose 106 mg/dL 70-99 high Not Available [facility] (Lab) [address] [place], [address], 09/28/2023 20:08:33 09/28/19 24 09/28/2023 COMPR EHENS MICHAEL METAB OLIC PANEL BUN 24 mg/dL 8-19 high Not Available [facility] (Lab) [address] [place], [address], 09/28/2023 20:08:33 09/28/19 24 09/28/2023 COMPR EHENS MICHAEL METAB OLIC PANEL creatinine 0.90 mg/dL 0.66-1 .25 Not Available [facility] (Lab) [address] [place], [address], 09/28/2023 20:08:33 09/28/19 24 09/28/2023 COMPR EHENS MICHAEL METAB OLIC PANEL GFR >60 Refer ence Range : Vicco ge GFR Healt hy Adult : >60 [...] calcu lator is avail able on the F websi te: https ://devon w.niya nelsony.o rg/pr ofess ional s/kdo qi/gf r_cal culat or Not Available [facility] (Lab) [address] [place], [address], 09/28/2023 20:08:33 09/28/19 24 09/28/2023 COMPR EHENS MICHAEL METAB OLIC PANEL alkaline phosphatase 84 U/L 38-126 Not Available [facility] (Lab) [address] [place], [address], 09/28/2023 20:08:33 09/28/19 24 09/28/2023 COMPR EHENS MICHAEL METAB OLIC PANEL alanine aminotransfe rase 13 U/L 0-50 Not Available [facility] (Lab) [address] [place], [address], 09/28/2023 20:08:33 09/28/19 24 09/28/2023 COMPR EHENS MICHAEL METAB OLIC PANEL aspartate aminotransfe rase 19 U/L 15-46 Not Available [facility] (Lab) [address] [place], [address], 09/28/2023 20:08:33 09/28/19 24 09/28/2023 COMPR EHENS MICHAEL METAB OLIC PANEL bilirubin, total 1.10 mg/dL 0.20-1 .30 Not Available [facility] (Lab) [address] [place], [address], 09/28/2023 20:08:33 09/28/19 24 09/28/2023 COMPR EHENS MICHAEL METAB OLIC PANEL calcium 9.7 mg/dL 8.4-10 .2 Not Available [facility] (Lab) [address] [place], [address], 09/28/2023 20:08:33 09/28/19 24 09/28/2023 COMPR EHENS MICHAEL METAB OLIC PANEL total protein 6.5 g/dL 6.3-8. 2 Not Available [facility] (Lab) [address] [place], [address], 09/28/2023 20:08:33 09/28/19 24 09/28/2023 COMPR EHENS MICHAEL METAB OLIC PANEL albumin 3.9 g/dL 3.0-4. 4 Not Available [facility] (Lab) [address] [place], [address], 09/28/2023 20:08:33 09/28/19 24 09/28/2023 COMPR EHENS MICHAEL METAB OLIC PANEL globulin 2.6 g/dL 2.6-4. 2 Not Available [facility] (Lab) [address] [place], [address], 09/28/2023 20:08:33 09/28/19 24 09/28/2023 COMPR EHENS MICHAEL METAB OLIC PANEL A/G ratio 1.5 ratio 1.0-2. 0 Not Available [facility] (Lab) [address] [place], [address], 09/28/2023 20:08:33 09/28/19 24 09/28/2023 LIPID PANEL cholesterol 111 mg/dL 140-19 9 low NIH KRISTEN NSUS RECOM MENDA TION FOR GUSTAVO STERO L: ADULT CHILD LOW RISK: <200 <170 BORDE RLINE : <200- 239 ----- HIGH RISK: >240 >200 Not Available [facility] (Lab) [address] [place], [address], 09/28/2023 20:08:38 09/28/19 24 09/28/2023 LIPID PANEL triglyceride s 143 mg/dL 0-150 NIH KRISTEN NSUS REPOR T RECOM MENDA TION FOR TRIGL YCERI SHANI: ADULT CHILD LOW RISK: <150 ----- BODER LINE: 150-1 99 ----- HIGH RISK: >200 ----- Not Available [facility] (Lab) [address] [place], [address], 09/28/2023 20:08:38 09/28/19 24 09/28/2023 LIPID PANEL HDL cholesterol 26 mg/dL 40- low Not Available [facility] (Lab) [address] [place], [address], 09/28/2023 20:08:38 09/28/19 24 09/28/2023 LIPID PANEL [...] WILL NOT BE REPOR MIKE. Not Available [facility] (Lab) [address] [place], [address], 09/28/2023 20:08:38 09/28/19 24 09/28/2023 VITAM IN D 25-HY DROXY [id number] 63.7 NG/mL 30-100 Vitam in D Statu s: Defic ient: <20 ng/mL Insuf ficie nt: 20-29 ng/mL Suffi cient : 30-10 0 ng/mL Not Available [facility] (Lab) [address] [place], [address], 09/28/2023 20:27:09 09/28/19 24 09/28/2023 TSH W/REF BLANCA FT4 TSH with reflex free T4 1.920 uIU/m L 0.465- 4.680 Not Available [facility] (Lab) [address] [place], [address], 09/28/2023 20:28:35 01/22/20 24 01/22/2024 CBC/C OMPLE TE BLD COUNT W/DIF F white blood cells 3.8 x10'3 /uL 4.2-10 .8 low Not Available [facility] (Lab) [address] [place], [address], 01/22/2024 13:47:16 01/22/20 24 01/22/2024 CBC/C OMPLE TE BLD COUNT W/DIF F red blood cells 3.95 x10'6 /uL 4.10-5 .80 low Not Available [facility] (Lab) [address] [place], [address], 01/22/2024 13:47:16 01/22/20 24 01/22/2024 CBC/C OMPLE TE BLD COUNT W/DIF F hemoglobin 10.4 g/dL 13.2-1 7.0 low Not Available [facility] (Lab) [address] [place], [address], 01/22/2024 13:47:16 01/22/20 24 01/22/2024 CBC/C OMPLE TE BLD COUNT W/DIF F hematocrit 34.8 % 39.3-5 0.0 low Not Available [facility] (Lab) [address] [place], [address], 01/22/2024 13:47:16 01/22/20 24 01/22/2024 CBC/C OMPLE TE BLD COUNT W/DIF F mean red cell volume 88.1 fL 80.0-9 7.0 Not Available [facility] (Lab) [address] [place], [address], 01/22/2024 13:47:16 01/22/20 24 01/22/2024 CBC/C OMPLE TE BLD COUNT W/DIF F mean red cell hemoglobin 26.3 pg 27.0-3 3.0 low Not Available [facility] (Lab) [address] [place], [address], 01/22/2024 13:47:16 01/22/20 24 01/22/2024 CBC/C OMPLE TE BLD COUNT W/DIF F mean RBC HGB concentratio n 29.9 g/dL 31.0-3 6.0 low Not Available [facility] (Lab) [address] [place], [address], 01/22/2024 13:47:16 01/22/20 24 01/22/2024 CBC/C OMPLE TE BLD COUNT W/DIF F red cell distribution width 15.1 % 11.8-1 5.5 Not Available [facility] (Lab) [address] [place], [address], 01/22/2024 13:47:16 01/22/20 24 01/22/2024 CBC/C OMPLE TE BLD COUNT W/DIF F platelets 212 x10'3 /uL 150-40 0 Not Available [facility] (Lab) [address] [place], [address], 01/22/2024 13:47:16 01/22/2001/22/2024 CBC/C OMPLE TE BLD COUNT W/DIF F mean platelet volume 10.8 fL 9.0-12 .4 Not Available [facility] (Lab) [address] [place], [address], 01/22/2024 13:47:16 01/22/20 24 01/22/2024 CBC/C OMPLE TE BLD COUNT W/DIF F neutrophils 67.9 % 39.0-7 2.0 Not Available [facility] (Lab) [address] [place], [address], 01/22/2024 13:47:16 01/22/20 24 01/22/2024 CBC/C OMPLE TE BLD COUNT W/DIF F lymphocytes 21.1 % 16.0-4 7.0 Not Available [facility] (Lab) [address] [place], [address], 01/22/2024 13:47:16 01/22/20 24 01/22/2024 CBC/C OMPLE TE BLD COUNT W/DIF F monocytes 8.9 % 5.0-12 .0 Not Available [facility] (Lab) [address] [place], [address], 01/22/2024 13:47:16 01/22/20 24 01/22/2024 CBC/C OMPLE TE BLD COUNT W/DIF F eosinophils 1.3 % 1.0-7. 0 Not Available [facility] (Lab) [address] [place], [address], 01/22/2024 13:47:16 01/22/20 24 01/22/2024 CBC/C OMPLE TE BLD COUNT W/DIF F basophils 0.5 % 0.0-2. 0 Not Available [facility] (Lab) [address] [place], [address], 01/22/2024 13:47:16 01/22/20 24 01/22/2024 CBC/C OMPLE TE BLD COUNT W/DIF F immature granulocytes 0.3 % 0.00-0 .50 Not Available [facility] (Lab) [address] [place], [address], 01/22/2024 13:47:16 01/22/20 24 01/22/2024 CBC/C OMPLE TE BLD COUNT W/DIF F neutrophils, absolute count 2.60 x10'3 /uL 1.5-8. 0 Not Available [facility] (Lab) [address] [place], [address], 01/22/2024 13:47:16 01/22/20 24 01/22/2024 CBC/C OMPLE TE BLD COUNT W/DIF F lymphocytes, absolute count 0.81 x10'3 /uL 1.07-3 .43 low Not Available [facility] (Lab) [address] [place], [address], 01/22/2024 13:47:16 01/22/20 24 01/22/2024 CBC/C OMPLE TE BLD COUNT W/DIF F monocytes, absolute count 0.34 x10'3 /uL 0.29-0 .99 Not Available [facility] (Lab) [address] [place], [address], 01/22/2024 13:47:16 01/22/20 24 01/22/2024 CBC/C OMPLE TE BLD COUNT W/DIF F eosinophils, absolute count 0.05 x10'3 /uL 0.02-0 .53 Not Available [facility] (Lab) [address] [place], [address], 01/22/2024 13:47:16 01/22/20 24 01/22/2024 CBC/C OMPLE TE BLD COUNT W/DIF F basophils, absolute count 0.02 x10'3 /uL 0.01-0 .08 Not Available [facility] (Lab) [address] [place], [address], 01/22/2024 13:47:16 01/22/20 24 01/22/2024 CBC/C OMPLE TE BLD COUNT W/DIF F immature granulocytes ,absolute 0.01 x10'3 /uL 0.00-0 .05 Not Available [facility] (Lab) [address] [place], [address], 01/22/2024 13:47:16 01/22/20 24 01/22/2024 CBC/C OMPLE TE BLD COUNT W/DIF F nucleated red blood cells 0.0 % -0 Not Available [facility] (Lab) [address] [place], [address], 01/22/2024 13:47:16 01/22/20 24 01/22/2024 CBC/C OMPLE TE BLD COUNT W/DIF F NRBC# 0.00 x10'3 /uL Not Available [facility] (Lab) [address] [place], [address], 01/22/2024 13:47:16 01/22/20 24 01/22/2024 CBC/C OMPLE TE BLD COUNT W/DIF F hypochromia OCCASI ONAL Not Available [facility] (Lab) [address] [place], [address], 01/22/2024 13:47:16 01/22/20 24 01/22/2024 CBC/C OMPLE TE BLD COUNT W/DIF F microcytosis OCCASI ONAL Not Available [facility] (Lab) [address] [place], [address], 01/22/2024 13:47:16 01/22/20 24 01/22/2024 COMPR EHENS MICHAEL METAB OLIC PANEL sodium 140 mmol/ L 137-14 5 Not Available [facility] (Lab) [address] [place], [address], 01/22/2024 13:39:36 01/22/20 24 01/22/2024 COMPR EHENS MICHAEL METAB OLIC PANEL potassium 4.0 mmol/ L 3.5-5. 1 Not Available [facility] (Lab) [address] [place], [address], 01/22/2024 13:39:36 01/22/20 24 01/22/2024 COMPR EHENS MICHAEL METAB OLIC PANEL chloride 111 mmol/ L 98-107 high Not Available [facility] (Lab) [address] [place], [address], 01/22/2024 13:39:36 01/22/20 24 01/22/2024 COMPR EHENS MICHAEL METAB OLIC PANEL carbon dioxide 26 mmol/ L 22-30 Not Available [facility] (Lab) [address] [place], [address], 01/22/2024 13:39:36 01/22/20 24 01/22/2024 COMPR EHENS MICHAEL METAB OLIC PANEL anion gap 7.0 mmol/ L 14-22 low Not Available [facility] (Lab) [address] [place], [address], 01/22/2024 13:39:36 01/22/20 24 01/22/2024 COMPR EHENS MICHAEL METAB OLIC PANEL glucose 125 mg/dL 70-99 high Not Available [facility] (Lab) [address] [place], [address], 01/22/2024 13:39:36 01/22/20 24 01/22/2024 COMPR EHENS MICHAEL METAB OLIC PANEL BUN 29 mg/dL 8-19 high Not Available [facility] (Lab) [address] [place], [address], 01/22/2024 13:39:36 01/22/20 24 01/22/2024 COMPR EHENS MICHAEL METAB OLIC PANEL creatinine 1.02 mg/dL 0.66-1 .25 Not Available [facility] (Lab) [address] [place], [address], 01/22/2024 13:39:36 01/22/20 24 01/22/2024 COMPR EHENS MICHAEL METAB OLIC PANEL GFR >60 Refer ence Range : Vicco ge GFR Healt hy Adult : >60 [...] calcu lator is avail able on the [facility] websi te: [email or web address] :[email or web address] [email or web address] rg/pr ofess ional s/kdo qi/gf r_cal culat or Not Available [facility] (Lab) [address] [place], [address], 01/22/2024 13:39:36 01/22/20 24 01/22/2024 COMPR EHENS MICHAEL METAB OLIC PANEL alkaline phosphatase 99 U/L 38-126 Not Available [facility] (Lab) [address] [place], [address], 01/22/2024 13:39:36 01/22/20 24 01/22/2024 COMPR EHENS MICHAEL METAB OLIC PANEL alanine aminotransfe rase 18 U/L 0-50 Not Available [facility] (Lab) [address] [place], [address], 01/22/2024 13:39:36 01/22/20 24 01/22/2024 COMPR EHENS MICHAEL METAB OLIC PANEL aspartate aminotransfe rase 25 U/L 15-46 Not Available [facility] (Lab) [address] [place], [address], 01/22/2024 13:39:36 01/22/20 24 01/22/2024 COMPR EHENS MICHAEL METAB OLIC PANEL bilirubin, total 0.60 mg/dL 0.20-1 .30 Not Available [facility] (Lab) [address] [place], [address], 01/22/2024 13:39:36 01/22/20 24 01/22/2024 COMPR EHENS MICHAEL METAB OLIC PANEL calcium 9.1 mg/dL 8.4-10 .2 Not Available [facility] (Lab) [address] [place], [address], 01/22/2024 13:39:36 01/22/20 24 01/22/2024 COMPR EHENS MICHAEL METAB OLIC PANEL total protein 6.5 g/dL 6.3-8. 2 Not Available [facility] (Lab) [address] [place], [address], 01/22/2024 13:39:36 01/22/20 24 01/22/2024 COMPR EHENS MICHAEL METAB OLIC PANEL albumin 3.7 g/dL 3.0-4. 4 Not Available [facility] (Lab) [address] [place], [address], 01/22/2024 13:39:36 01/22/20 24 01/22/2024 COMPR EHENS MICHAEL METAB OLIC PANEL globulin 2.8 g/dL 2.6-4. 2 Not Available [facility] (Lab) [address] [place], [address], 01/22/2024 13:39:36 01/22/20 24 01/22/2024 COMPR EHENS MICHAEL METAB OLIC PANEL A/G ratio 1.3 ratio 1.0-2. 0 Not Available [facility] (Lab) [address] [place], [address], 01/22/2024 13:39:36 01/22/20 24 01/22/2024 LIPID PANEL cholesterol 169 mg/dL 140-19 9 NIH KRISTEN NSUS RECOM MENDA TION FOR GUSTAVO STERO L: ADULT CHILD LOW RISK: <200 <170 BORDE RLINE : <200- 239 ----- HIGH RISK: >240 >200 Not Available [facility] (Lab) [address] [place], [address], 01/22/2024 13:39:40 01/22/20 24 01/22/2024 LIPID PANEL triglyceride s 147 mg/dL 0-150 NIH KRISTEN NSUS REPOR T RECOM MENDA TION FOR TRIGL YCERI SHANI: ADULT CHILD LOW RISK: <150 ----- BODER LINE: 150-1 99 ----- HIGH RISK: >200 ----- Not Available [facility] (Lab) [address] [place], [address], 01/22/2024 13:39:40 01/22/20 24 01/22/2024 LIPID PANEL HDL cholesterol 25 mg/dL 40- low Not Available [facility] (Lab) [address] [place], [address], 01/22/2024 13:39:40 01/22/20 24 01/22/2024 LIPID PANEL [...] WILL NOT BE REPOR MIKE. Not Available [facility] (Lab) [address] [place], [address], 01/22/2024 13:39:40 01/22/20 24 01/22/2024 TSH W/REF BLANCA FT4 TSH with reflex free T4 1.810 uIU/m L 0.465- 4.680 Not Available [facility] (Lab) [address] [place], [address], 01/22/2024 14:01:24 01/22/20 24 01/22/2024 VITAM IN D 25-HY DROXY [id number] 54.5 NG/mL 30-100 Vitam in D Statu s: Defic ient: <20 ng/mL Insuf ficie nt: 20-29 ng/mL Suffi cient : 30-10 0 ng/mL Not Available [facility] (Lab) [address] [place], [address], 01/22/2024 15:25:09 01/22/20 24 01/22/2024 VITAM IN B12 (MARSHAL RITO ) vb12 >1000 pg/mL 239-93 1 high Not Available [facility] (Lab) [address] [place], [address], 01/22/2024 16:08:55 01/22/20 24 01/22/2024 FOLAT E, SERUM /PLAS MA folate 7.45 NG/mL 2.76-2 0.0 Not Available [facility] (Lab) [address] [place], [address], 01/22/2024 16:08:57 01/22/20 24 01/22/2024 MICRO ALBUM IN RANDO M URINE microalbumin , urine 64.3 mg/L 0.0-16 .6 high Not Available [facility] (Lab) [address] [place], [address], 01/22/2024 16:33:50 01/22/20 24 01/23/2024 HEMOG LOBIN A1C HA1C 6.7 % 4.0-6. 0 high Diabe gary Scree cameron Crite cristofer: <5.7% Consi stent with absen ce of diabe gary 5.7-6 .4% Consi stent with incre ased risk for diabe gary (pred iabet es) >OR=6 .5% Consi stent with diabe gary REFER ENCE: Diabe gary Care 2016, 39(Moreno ppl.1 ):s13 -s22 Not Available [facility] (Lab) [address] [place], [address], 01/23/2024 21:06:59 06/01/2006/01/2024 CBC/C OMPLE TE BLD COUNT W/DIF F white blood cells 3.8 x10'3 /uL 4.2-10 .8 low Not Available [facility] (Lab) [address] [place], [address], 06/01/2024 14:26:05 06/01/2006/01/2024 CBC/C OMPLE TE BLD COUNT W/DIF F red blood cells 3.66 x10'6 /uL 4.10-5 .80 low Not Available [facility] (Lab) [address] [place], [address], 06/01/2024 14:26:05 06/01/2006/01/2024 CBC/C OMPLE TE BLD COUNT W/DIF F hemoglobin 9.1 g/dL 13.2-1 7.0 low Not Available [facility] (Lab) [address] [place], [address], 06/01/2024 14:26:05 06/01/2006/01/2024 CBC/C OMPLE TE BLD COUNT W/DIF F hematocrit 31.2 % 39.3-5 0.0 low Not Available [facility] (Lab) [address] [place], [address], 06/01/2024 14:26:05 06/01/2006/01/2024 CBC/C OMPLE TE BLD COUNT W/DIF F mean red cell volume 85.2 fL 80.0-9 7.0 Not Available [facility] (Lab) [address] [place], [address], 06/01/2024 14:26:05 06/01/2006/01/2024 CBC/C OMPLE TE BLD COUNT W/DIF F mean red cell hemoglobin 24.9 pg 27.0-3 3.0 low Not Available [facility] (Lab) [address] [place], [address], 06/01/2024 14:26:05 06/01/2006/01/2024 CBC/C OMPLE TE BLD COUNT W/DIF F mean RBC HGB concentratio n 29.2 g/dL 31.0-3 6.0 low Not Available [facility] (Lab) [address] [place], [address], 06/01/2024 14:26:05 06/01/2006/01/2024 CBC/C OMPLE TE BLD COUNT W/DIF F red cell distribution width 18.1 % 11.8-1 5.5 high Not Available [facility] (Lab) [address] [place], [address], 06/01/2024 14:26:05 06/01/2006/01/2024 CBC/C OMPLE TE BLD COUNT W/DIF F platelets 212 x10'3 /uL 150-40 0 Not Available [facility] (Lab) [address] [place], [address], 06/01/2024 14:26:05 06/01/2006/01/2024 CBC/C OMPLE TE BLD COUNT W/DIF F mean platelet volume 10.5 fL 9.0-12 .4 Not Available [facility] (Lab) [address] [place], [address], 06/01/2024 14:26:05 06/01/2006/01/2024 CBC/C OMPLE TE BLD COUNT W/DIF F neutrophils 68.6 % 39.0-7 2.0 Not Available [facility] (Lab) [address] [place], [address], 06/01/2024 14:26:05 06/01/2006/01/2024 CBC/C OMPLE TE BLD COUNT W/DIF F lymphocytes 20.1 % 16.0-4 7.0 Not Available [facility] (Lab) [address] [place], [address], 06/01/2024 14:26:05 06/01/2006/01/2024 CBC/C OMPLE TE BLD COUNT W/DIF F monocytes 8.9 % 5.0-12 .0 Not Available [facility] (Lab) [address] [place], [address], 06/01/2024 14:26:05 06/01/2006/01/2024 CBC/C OMPLE TE BLD COUNT W/DIF F eosinophils 1.6 % 1.0-7. 0 Not Available [facility] (Lab) [address] [place], [address], 06/01/2024 14:26:05 06/01/2006/01/2024 CBC/C OMPLE TE BLD COUNT W/DIF F basophils 0.3 % 0.0-2. 0 Not Available [facility] (Lab) [address] [place], [address], 06/01/2024 14:26:05 06/01/2006/01/2024 CBC/C OMPLE TE BLD COUNT W/DIF F immature granulocytes 0.5 % 0.00-0 .50 Not Available [facility] (Lab) [address] [place], [address], 06/01/2024 14:26:05 06/01/2006/01/2024 CBC/C OMPLE TE BLD COUNT W/DIF F neutrophils, absolute count 2.64 x10'3 /uL 1.5-8. 0 Not Available [facility] (Lab) [address] [place], [address], 06/01/2024 14:26:05 06/01/2006/01/2024 CBC/C OMPLE TE BLD COUNT W/DIF F lymphocytes, absolute count 0.77 x10'3 /uL 1.07-3 .43 low Not Available [facility] (Lab) [address] [place], [address], 06/01/2024 14:26:05 06/01/2006/01/2024 CBC/C OMPLE TE BLD COUNT W/DIF F monocytes, absolute count 0.34 x10'3 /uL 0.29-0 .99 Not Available [facility] (Lab) [address] [place], [address], 06/01/2024 14:26:05 06/01/2006/01/2024 CBC/C OMPLE TE BLD COUNT W/DIF F eosinophils, absolute count 0.06 x10'3 /uL 0.02-0 .53 Not Available [facility] (Lab) [address] [place], [address], 06/01/2024 14:26:05 06/01/2006/01/2024 CBC/C OMPLE TE BLD COUNT W/DIF F basophils, absolute count 0.01 x10'3 /uL 0.01-0 .08 Not Available [facility] (Lab) [address] [place], [address], 06/01/2024 14:26:05 06/01/20 24 06/01/2024 CBC/C OMPLE TE BLD COUNT W/DIF F immature granulocytes ,absolute 0.02 x10'3 /uL 0.00-0 .05 Not Available [facility] (Lab) [address] [place], [address], 06/01/2024 14:26:05 06/01/20 24 06/01/2024 CBC/C OMPLE TE BLD COUNT W/DIF F nucleated red blood cells 0.0 % -0 Not Available [facility] (Lab) [address] [place], [address], 06/01/2024 14:26:05 06/01/2006/01/2024 CBC/C OMPLE TE BLD COUNT W/DIF F NRBC# 0.00 x10'3 /uL Not Available [facility] (Lab) [address] [place], [address], 06/01/2024 14:26:05 06/01/2006/01/2024 CBC/C OMPLE TE BLD COUNT W/DIF F hypochromia OCCASI ONAL Not Available [facility] (Lab) [address] [place], [address], 06/01/2024 14:26:05 06/01/2006/01/2024 CBC/C OMPLE TE BLD COUNT W/DIF F chasity cells OCCASI ONAL Not Available [facility] (Lab) [address] [place], [address], 06/01/2024 14:26:05 06/01/2006/01/2024 COMPR EHENS MICHAEL METAB OLIC PANEL sodium 139 mmol/ L 137-14 5 Not Available [facility] (Lab) [address] [place], [address], 06/01/2024 13:39:05 06/01/2006/01/2024 COMPR EHENS MICHAEL METAB OLIC PANEL potassium 4.0 mmol/ L 3.5-5. 1 Not Available [facility] (Lab) [address] [place], [address], 06/01/2024 13:39:05 06/01/2006/01/2024 COMPR EHENS MICHAEL METAB OLIC PANEL chloride 108 mmol/ L 98-107 high Not Available [facility] (Lab) [address] [place], [address], 06/01/2024 13:39:05 06/01/2006/01/2024 COMPR EHENS MICHAEL METAB OLIC PANEL carbon dioxide 27 mmol/ L 22-30 Not Available [facility] (Lab) [address] [place], [address], 06/01/2024 13:39:05 06/01/2006/01/2024 COMPR EHENS MICHAEL METAB OLIC PANEL anion gap 8.0 mmol/ L 14-22 low Not Available [facility] (Lab) [address] [place], [address], 06/01/2024 13:39:05 06/01/2006/01/2024 COMPR EHENS MICHAEL METAB OLIC PANEL glucose 104 mg/dL 70-99 high Not Available [facility] (Lab) [address] [place], [address], 06/01/2024 13:39:05 06/01/2006/01/2024 COMPR EHENS MICHAEL METAB OLIC PANEL BUN 21 mg/dL 8-19 high Not Available [facility] (Lab) [address] [place], [address], 06/01/2024 13:39:05 06/01/2006/01/2024 COMPR EHENS MICHAEL METAB OLIC PANEL creatinine 0.94 mg/dL 0.66-1 .25 Not Available [facility] (Lab) [address] [place], [address], 06/01/2024 13:39:05 06/01/2006/01/2024 COMPR EHENS MICHAEL METAB OLIC PANEL GFR >60 Refer ence Range : Vicco ge GFR Healt hy Adult : >60 [...] or ethni c subgr oups, such as Hismarissa nics. Outsi de the valid ated dru [...] calcu lator is avail able on the [facility] websi te: [email or web address] :[email or web address] [email or web address] rg/pr ofess ional s/kdo qi/gf r_cal culat or Not Available [facility] (Lab) [address] [place], [address], 06/01/2024 13:39:05 06/01/2006/01/2024 COMPR EHENS MICHAEL METAB OLIC PANEL alkaline phosphatase 84 U/L 38-126 Not Available [facility] (Lab) [address] [place], [address], 06/01/2024 13:39:05 06/01/2006/01/2024 COMPR EHENS MICHAEL METAB OLIC PANEL alanine aminotransfe rase 15 U/L 0-50 Not Available [facility] (Lab) [address] [place], [address], 06/01/2024 13:39:05 06/01/20 24 06/01/2024 COMPR EHENS MICHAEL METAB OLIC PANEL aspartate aminotransfe rase 21 U/L 15-46 Not Available [facility] (Lab) [address] [place], [address], 06/01/2024 13:39:05 06/01/2006/01/2024 COMPR EHENS MICHAEL METAB OLIC PANEL bilirubin, total 0.50 mg/dL 0.20-1 .30 Not Available [facility] (Lab) [address] [place], [address], 06/01/2024 13:39:05 06/01/2006/01/2024 COMPR EHENS MICHAEL METAB OLIC PANEL calcium 8.8 mg/dL 8.4-10 .2 Not Available [facility] (Lab) [address] [place], [address], 06/01/2024 13:39:05 06/01/2006/01/2024 COMPR EHENS MICHAEL METAB OLIC PANEL total protein 5.6 g/dL 6.3-8. 2 low Not Available [facility] (Lab) [address] [place], [address], 06/01/2024 13:39:05 06/01/2006/01/2024 COMPR EHENS MICHAEL METAB OLIC PANEL albumin 2.7 g/dL 3.0-4. 4 low Not Available [facility] (Lab) [address] [place], [address], 06/01/2024 13:39:05 06/01/2006/01/2024 COMPR EHENS MICHAEL METAB OLIC PANEL globulin 2.9 g/dL 2.6-4. 2 Not Available [facility] (Lab) [address] [place], [address], 06/01/2024 13:39:05 06/01/2006/01/2024 COMPR EHENS MICHAEL METAB OLIC PANEL A/G ratio 0.9 ratio 1.0-2. 0 low Not Available [facility] (Lab) [address] [place], [address], 06/01/2024 13:39:05 06/01/2002 0606/01/2024 LIPID PANEL cholesterol 97 mg/dL 140-19 9 low NIH KRISTEN NSUS RECOM MENDA TION FOR GUSTAVO STERO L: ADULT CHILD LOW RISK: <200 <170 BORDE RLINE : <200- 239 ----- HIGH RISK: >240 >200 Not Available [facility] (Lab) [address] [place], [address], 06/01/2024 13:39:08 06/01/2006/01/2024 LIPID PANEL triglyceride s 81 mg/dL 0-150 NIH KRISTEN NSUS REPOR T RECOM MENDA TION FOR TRIGL YCERI SHANI: ADULT CHILD LOW RISK: <150 ----- BODER LINE: 150-1 99 ----- HIGH RISK: >200 ----- Not Available [facility] (Lab) [address] [place], [address], 06/01/2024 13:39:08 06/01/2006/01/2024 LIPID PANEL HDL cholesterol 26 mg/dL 40- low Not Available [facility] (Lab) [address] [place], [address], 06/01/2024 13:39:08 06/01/2006/01/2024 LIPID PANEL LDL cholesterol, [...] WILL NOT BE REPOR MIKE. Not Available [facility] (Lab) [address] [place], [address], 06/01/2024 13:39:08 06/01/20 24 06/01/2024 VITAM IN D 25-HY DROXY [id number] 37.6 NG/mL 30-100 Vitam in D Statu s: Defic ient: <20 ng/mL Insuf ficie nt: 20-29 ng/mL Suffi cient : 30-10 0 ng/mL Not Available [facility] (Lab) [address] [place], [address], 06/01/2024 13:57:52 06/01/2006/01/2024 TSH W/REF BLANCA FT4 TSH with reflex free T4 1.060 uIU/m L 0.465- 4.680 [facility] Available [facility] [facility] (Lab) [address] [place], [address], 06/01/2024 14:38:11 06/01/2006/01/2024 VITAM IN B12 (MARSHAL RITO ) vb12 985 pg/mL 239-93 1 high Not Available [facility] (Lab) [address] [place], [address], 06/01/2024 14:47:31 06/01/2006/01/2024 FOLAT E, SERUM /PLAS MA folate 5.72 NG/mL 2.76-2 0.0 Not Available [facility] (Lab) [address] [place], [address], 06/01/2024 14:47:32 06/01/2006/01/2024 HEMOG LOBIN A1C HA1C 6.7 % 4.0-6. 0 high Diabe gary Scree cameron Crite cristofer: <5.7% Consi stent with absen ce of diabe gary 5.7-6 .4% Consi stent with incre ased risk for diabe gary (pred iabet es) >OR=6 .5% Consi stent with diabe gary REFER ENCE: Diabe gary Care 2016, 39(Moreno ppl.1 ):s13 -s22 Not Available [facility] (Lab) [address] [place], [address], 06/01/2024 21:04:12 06/02/2006/02/2024 MICRO ALBUM IN RANDO M URINE microalbumin , urine 40.0 mg/L 0.0-16 .6 high Not Available [facility] (Lab) [address] [place], [address], 06/02/2024 14:44:42 09/02/19 24 09/02/2023 US, echoc ardio gram No observ ation record ed. [facility] [address], [place], [address], 03/25/2024 11:49:40 11/01/19 25 10/31/2024 imagi ng/di agnos tic resul t No observ ation record ed. [address] [facility], [place], [address], 10/31/2024 18:04:48 11/01/19 25 10/31/2024 imagi ng/di agnos tic resul t No observ ation record ed. [address], [place], [address], 10/31/2024 22:04:37 11/01/19 25 10/31/2024 imagi ng/di agnos tic resul t No observ ation record ed. [address], [place], [address], 10/31/2024 22:06:39 11/29/19 25 11/28/2024 imagi ng/di agnos tic resul t No observ ation record ed. [address], [place], [address], 11/28/2024 18:07:47 12/01/19 25 11/30/2024 imagi ng/di agnos tic resul t No observ ation record ed. [address], [place], [address], 11/30/2024 17:19:23 12/02/19 25 12/01/2024 imagi ng/di agnos tic resul t No observ ation record ed. [facility] [address], [place], [address], 12/01/2024 10:46:12 12/05/19 25 12/04/2024 imagi ng/di agnos tic resul t No observ ation record ed. [facility] [address], [place], [address], 12/04/2024 22:19:15 Result Notes None recorded. 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 Active Not Available [facility] 3 11:36:16 Osteoarthr itis of knee 373960455 Active Not Available [facility] 3 11:36:16 Type 2 diabetes mellitus without complicati on 133905147 Active Not Available [facility] 3 11:36:16 Osteoarthr itis 008994945 Active Not Available [facility] 3 11:36:16 Coronary atheroscle rosis 318219286 Active Not Available [facility] 3 11:36:16 Uncontroll ed type 2 diabetes mellitus 449902788 Active Not Available [facility] 3 11:36:16 Anxiety 48485423 Active Not Available [facility] 3 11:36:16 Atrial fibrillati on 24482904 Active Not Available [facility] 3 11:36:16 Hyperchole sterolemia 08707983 Active 2019 Not Available [facility] 3 11:36:16 Anemia 167904979 Active 2019 Not Available [facility] 3 11:36:16 Skin problem 826583902 Active 2019 Not Available [facility] 3 11:36:16 Disorder of eye 367771781 Active 2019 Not Available [facility] 3 11:36:16 Arthritis 4117630 Active 2019 Not Available [facility] 3 11:36:16 Dizziness 048943606 Active 2019 Not Available [facility] 3 11:36:16 Attention deficit hyperactiv ity disorder 205036542 Active 2019 Not Available [facility] 3 11:36:16 Seasonal allergy 429395339 Active 2019 Not Available [facility] 3 11:36:16 Heart disease 99695950 Active 2019 Not Available [facility] 3 11:36:16 Problem of prostate 183086695 Active 2019 Not Available [facility] 3 11:36:16 Diabetes mellitus 59994126 Active 2019 Not Available [facility] 3 11:36:16 Neuropathy 773350778 Active 2019 Not Available [facility] 3 11:36:16 Dystrophia unguium 03900052 Active 2019 Not Available [facility] 3 11:36:16 Insomnia 902040739 Active 2021 Not Available [facility] 3 11:36:16 Pain of left knee joint 5203399709475 07 Active 2021 Not Available [facility] 3 11:36:16 Vitamin D deficiency 66422553 Active 2021 Not Available [facility] 3 11:36:16 Hyperlipid emia 57225963 Active 2021 Not Available [facility] 3 11:36:16 Osteoarthr itis of left knee joint 1263983104276 09 Active 2021 Not Available [facility] 3 11:36:16 Coronary arterioscl erosis 85700534 Active 2022 Not Available [facility] 3 11:36:16 Essential hypertensi on 52914633 Active 2022 Not Available [facility] 3 11:36:16 Hypercalce felix 60136284 Active 2022 Not Available [facility] 3 11:36:16 Gastroesop hageal reflux disease without esophagiti s 512557790 Active 2022 Not Available [facility] 3 11:36:16 Persistent insomnia 042177895 Active 2022 Not Available [facility] 3 11:36:16 Thrombocyt openic disorder 168186595 Active 2022 Not Available [facility] 3 11:36:16 Urinary incontinen ce 109728223 Active 2022 Not Available [facility] 3 11:36:16 Erythrocyt osis 662345515 Active 2022 Not Available [facility] 3 11:36:16 Serum vitamin B12 below reference range 719460712 Active 2022 Not Available [facility] 3 11:36:16 Low back pain 218976588 Active 2022 Yulia watts MD [address] [place], [address] , [employer] 3 15:49:55 Unsteady when walking 13850570 Active 2023 Yulia watts MD [address], [place], [address] , [employer] 4 17:18:38 Unintentio nal weight loss 946614395 Active 2023 Yulia watts MD [address], [place], [address] , [employer] 4 16:00:55 Hypoprotei nemia 6606053 Active 2024 Yulia watts MD [address], [place], [address] , [employer] 5 17:23:35 Notes:PROSTATE, URINARY/BLAD SARATH/KIDNEY PROBLEMS, USE OF BLOOD THINNERS Use of NSAIDS Problem Notes None recorded. Procedures Surgical History Date Name Laterality Status Provider Name and Address Organization Details Recorded Time 07/20/20 24 Medicare Wellness CPT Code, subsequent completed Ethan Joshi LPN [employer] 07/20/2024 08:28:19 04/27/20 24 Medicare Wellness CPT Code, subsequent cancelled Ethan Joshi LPN [employer] 04/27/2024 08:47:18 03/02/20 23 Medicare Wellness CPT Code, subsequent completed Suzie Bermudez RN [place] [employer] [facility] [employer] 03/02/2023 15:53:20 02/17/20 23 Nail Debridement completed Kaveh Godfrey DPM [address] [facility], [place], [address], [employer] 02/16/2023 12:43:33 Knee Surgery completed Not Available [facility] h 10/08/2022 04:59:11 Pacemaker completed Not Available [facility] 0 10/08/2022 04:59:11 Prostatectomy completed Not Available [facility] 10/08/2022 04:59:11 Neck Surgeries completed Paula Norwood [employer] 02/16/2023 12:05:55 Imaging Results None recorded. Procedure Notes None recorded. Medical Equipment None Reported. Allergies Allergen ID Allergen Name Allergen Category Reaction Reaction Severity Criticality Documentation Date Start Date Code Code System Note Provider Name and Address Organization Details Recorded Time 9246 amiodaron e medicatio n other Not available Not available 10/08/2022 703 RxNorm unkno wn Not Available [facility] 05:12:43 Medications Name Sig Start Date Stop [...] n for injection in office 09/28 completed [facility]: 0003-049 11-27 Not Available Not Available Not Available lorazepam [...] completed Not Available Not Available Not Available U82-Umtbc 1,000 mcg tablet Take 1 tablet every [...] completed Not Available Not Available Not Available Cutler 3 with Fish Oil 1200mg 1 Daily [...] Available Vitals Date Recorded Body height Body temperature Body mass index (BMI) Body weight Systolic And Diastolic Provider Name and Address Organization Details Last Updated DateTime 08/17/2024 177.8 cm 97.3 [degF] 25.5 kg/m2 01879.4 4 g 110/52 mm[Hg] Zamzam Ragland [facility] [employer] [facility] [employer] 5 16:43:25 Date Recorded Body height Body weight Body temperature Heart rate Oxygen saturation Systolic And Diastolic Provider Name and Address Organization Details Last Updated DateTime 4 177.8 cm 81511 g 97.3 [degF] 83 /min 95 % 120/60 mm[Hg] Nicole Ibrahim [facility] [employer] [facility] [employer] [facility] 4 15:37:03 Date Recorded Body height Body mass index (BMI) Body weight Body temperature Heart rate Systolic And Diastolic Provider Name and Address Organization Details Last Updated DateTime 4 177.8 cm 26.1 kg/m2 15201.8 1 g 97.6 [degF] 60 /min 110/60 mm[Hg] Zamzam Ragland Carlos [facility] [employer] [facility] 4 14:39:54 Date Recorded Body height Provider Name an d Address Organization Details Last Updated DateTime 05/11/2024 177.8 cm Zamzam Ragland [facility] I L [employer] [facility] 05/11/2024 16:41:28 Date Recorded Body height Body mass index (BMI) Body weight Body temperature Heart rate Respiratory rate Oxygen saturation Pain severity - 0-10 verbal numeric rating [Score] - Reported Systolic And Diastolic Provider Name and Address Organization Details Last Updated DateTime 4 177.8 cm 24.4 kg/m2 43195.7 g 97.8 [degF] 64 /min 18 /min 99 % 0 102/54 mm[Hg] Ethan Joshi LPN [facility] [employer] [facility] 4 15:21:12 Social History Question Answer Notes LastModified by Organizat ion Details LastModified Time Tobacco Smoking Status Former Smoker Not Available [facility] 10/08/2022 04:57:17 Do You Have An Advance Directive? Yes MIGRATION.57567 50517 Information not available 10/08/2022 Are You Blind Or Do You Have Difficulty Seeing? No MIGRATION.92309 90447 Information not available 10/08/2022 How Much Tobacco Do You Chew? None MIGRATION.51564 92917 Information not available 10/08/2022 In The 14 Days Before Symptom Onset, Have You Had Close Contact With A Laboratory-confi rmed COVID-19 While That Case Was Ill? No MIGRATION.78839 02486 Information not available 10/08/2022 In The 14 Days Before Symptom Onset, Have You Had Close Contact With A Person Who Is Under Investigation For COVID-19 While That Person Was Ill? No MIGRATION.54002 11141 Information not available 10/08/2022 Are You Deaf Or Do You Have Serious Difficulty Hearing? No MIGRATION.42896 49089 Information not available 10/08/2022 What Type Of Diet Are You Following? REGULAR MIGRATION.03562 87470 Information not available 10/08/2022 Which Illicit Or Recreational Drugs Have You Used? None MIGRATION.67609 54042 Information not available 10/08/2022 What Is The Highest Grade Or Level Of School You Have Completed Or The Highest Degree You Have Received? [id number] MIGRATION.60280 07677 Information not available 10/08/2022 Have There Been Any Changes To Your Family Or Social Situation? No MIGRATION.00297 02071 Information not available 10/08/2022 What Is The Fluoride Status Of Your Home? Unknown MIGRATION.77057 55803 Information not available 10/08/2022 When Did You Quit Smoking? 16+yearssincelastci rosa MIGRATION.97236 09861 Information not available 10/08/2022 Are There Any Guns Present In Your Home? Yes MIGRATION.11169 35262 Information not available 10/08/2022 Do You Use [...] Do You Have A Medical Power Of Engineering Director? Yes MIGRATION.18544 99583 Information not available 10/08/2022 What Was The Date Of Your Most Recent Tobacco Screening? 08/17/2024 Information not available 08/17/2024 Do You Have Any Pets? No MIGRATION.34422 12031 Information not available 10/08/2022 What Is Your Relationship Status? MIGRATION.84849 18271 Information not available 10/08/2022 Do You Use Your Seat Belt Or Car Seat Routinely? Yes MIGRATION.68016 10638 Information not available 10/08/2022 Do You Have Smoke And Carbon Monoxide Detectors In Your Home? Yes MIGRATION.92883 46052 Information not available 10/08/2022 At What Age Did You Start Smoking Tobacco? 19 MIGRATION.30248 83025 Information not available 10/08/2022 Are You Passively Exposed To Smoke? No MIGRATION.31142 92833 Information not available 10/08/2022 Are There Any Smokers In Your House? No MIGRATION.50583 09809 Information not available 10/08/2022 What Types Of Sporting Activities Do You Participate In? None MIGRATION.59250 98821 Information not available 10/08/2022 Do You Use Sunscreen Routinely? No Information not available 03/02/2023 Has Tobacco Cessation Counseling Been Provided? No MIGRATION.92420 97326 Information not available 10/08/2022 How Many Years Have You Smoked Tobacco? 36 MIGRATION.23276 00321 Information not available 10/08/2022 Have You Recently Traveled Abroad? No MIGRATION.78713 37816 Information not available 10/08/2022 Do You Have Difficulty Walking Or Climbing Stairs? Yes MIGRATION.63802 23299 Information not available 10/08/2022 Do You Have Any Dietary Restrictions? No MIGRATION.72761 66780 Information not available 10/08/2022 Sex: Male Functional Status Question Answer Note LastModified by [employer] Details LastModified Time Do you use any illicit or recreational drugs? No MIGRATION.73256 22119 Information not available 10/08/2022 Do you or have you ever used any other forms of tobacco or nicotine? No MIGRATION.37018 27978 Information not available 10/08/2022 What is your level of alcohol consumption? None MIGRATION.42915 37979 Information not available 10/08/2022 Do you or have you ever used smokeless tobacco? Never used smokeless tobacco MIGRATION.20580 11413 Information not available 10/08/2022 Do you have transportation difficulties? No MIGRATION.54231 60661 Information not available 10/08/2022 Are you able to walk independently without assistance or assistive devices? YESASSIST uses cane MIGRATION.17534 09952 Information not available 10/08/2022 Do you have difficulty doing errands alone? No MIGRATION.30433 89496 Information not available 10/08/2022 Are you able to care for yourself independently? Yes MIGRATION.09282 54822 Information not available 10/08/2022 What is your occupation? Retired MIGRATION.12344 32360 Information not available 10/08/2022 Do you have difficulty dressing, bathing, grooming, or toileting? No MIGRATION.30821 99436 Information not available 10/08/2022 Do you or have you ever used e-cigarettes or vape? Never used electronic cigarettes MIGRATION.05669 43286 Information not available 10/08/2022 What is your exercise level? None MIGRATION.65000 98344 Information not available 10/08/2022 Mental Status Question Answer Note LastModified by Organizat ion Details LastModified Time Do you feel stressed (tense, restless, nervous, or anxious, or unable to sleep at night)? [id number] MIGRATION.51540307 26 Information not available 10/08/2022 Do you have difficulty concentrating, remembering or making decisions? No MIGRATION.98518661 26 Information not available 10/08/2022 Family History Relationship Description Onset Age of this Age Resolved Age Notes LastModified by Organization Details LastModified Time Father Heart disease MIGRATION.120 [id number] Not available 10/08/2022 04:59:14 Father Family history of stroke MIGRATION.980 7923653 Not available 10/08/2022 04:59:14 Brother Family history of malignant neoplasm MIGRATION.353 0857122 Not available 10/08/2022 04:59:14 Mother Diabetes mellitus MIGRATION.749 0007779 Not available 10/08/2022 04:59:14 Father Cerebrovascu lar [...] quadrivalent, PF 9 completed Zamzam Ragland RMA null, [facility] 07/20/2024 16:11:50 Influenza, adjuvanted, quadrivalent, PF 2 completed Zamzam Ragland RMA null, [facility] 07/20/2024 16:11:50 COVID-19, mRNA, LNP-S, PF, 30 mcg/0.3 mL dose, chastity-sucrose 2 completed Zamzam Ragland RMA null, [facility] 07/20/2024 16:11:50 COVID-19, mRNA, LNP-S, bivalent, PF, 30 mcg/0.3 mL dose 2 completed Zamzam Ragland RMA null, [facility] 07/20/2024 16:11:50 Influenza, high-dose, trivalent, PF 6 completed Zamzam Ragland RMA null, [facility] 07/20/2024 16:11:50 Influenza, high-dose, trivalent, PF 7 completed Zamzam Ragland RMA null, [facility] 07/20/2024 16:11:50 Influenza, high-dose, trivalent, PF 8 completed Zamzam Ragland RMA null, [facility] 07/20/2024 16:11:50 Influenza, high-dose, trivalent, PF 5 completed Zamzam Vesuvius, RMA null, [facility] 07/20/2024 16:11:50 Influenza, split virus, quadrivalent, PF 4 completed Zamzam Ellyn RMA null, [facility] 07/20/2024 16:11:50 Influenza, split virus, quadrivalent, PF 3 completed Zamzam Huffmanham RMA null, [facility] 07/20/2024 16:11:50 Influenza, split virus, quadrivalent, PF 0 completed Zamzam Ragland RMA null, [facility] 07/20/2024 16:11:50 COVID-19, mRNA, LNP-S, PF, 100 mcg/0.5mL dose or 50 mcg/0.25mL dose 1 completed Zamzam Ragland RMA null, [facility] 07/20/2024 16:11:50 COVID-19, mRNA, LNP-S, PF, 100 mcg/0.5mL dose or 50 mcg/0.25mL dose 1 completed Zamzam Ragland RMA null, [facility] 07/20/2024 16:11:50 COVID-19, mRNA, LNP-S, PF, 100 mcg/0.5mL dose or 50 mcg/0.25mL dose 1 completed Zamzam Ragland RMA null, [facility] 07/20/2024 16:11:50 Influenza, high-dose, trivalent, PF 0 completed Zamzam Ragland RMA null, [facility] 07/20/2024 16:11:50 Influenza, high-dose, trivalent, PF 9 completed Zamzam Ragland RMA null, [facility] 07/20/2024 16:11:50 influenza, unspecified formulation 7 completed Not Available [facility] 01/16/2023 11:36:17 pneumococcal polysaccharide PPV23 2 completed Not Available [facility] 01/16/2023 11:36:17 Influenza, high-dose, quadrivalent, PF 1 completed Not Available [facility] 01/16/2023 11:36:16 Pneumococcal conjugate PCV 13 8 completed Not Available [facility] 01/16/2023 11:36:17 Influenza, high-dose, quadrivalent, PF 3 completed Yulia Jackson MD [address], [address], [place], [address], [employer] 06/01/2023 18:23:03 Influenza, high-dose, trivalent, PF 4 completed Yulia Jackson MD [address], [address], [place], [address], [employer] 07/31/2024 15:22:14 Past Encounters Encounter ID Performer Location Encounter Start Date Encounter Closed Date Diagnosis/Indication Diagnosis SNOMED-CT Code Diagnosis ICD10 Code Diagnosis IMO Codes Diagnosis Note [id number] Yulia watts MD [facility] [place] [address] [place] [address] [place] [address] 02/04/2021 00:00:00 02/05/2021 10:04:08 [id number] [facility] [place] [address] [place] [address] [place] [address] 06/03/2021 00:00:00 06/03/2021 16:23:39 [id number] [facility] [place] [address] [place] [address] [place] [address] 10/14/2021 00:00:00 10/14/2021 16:01:41 [id number] Tan Oneal MD [facility] [address] [address] 10/22/2021 00:00:00 10/22/2021 16:34:19 [id number] [facility] [address] [address] 11/19/2021 00:00:00 01/07/2022 08:07:36 [id number] Tan Oneal MD [facility] [address] [address] 12/10/2021 00:00:00 12/10/2021 16:18:59 [id number] MD [facility] [place] [address] [facility] [address] [place] [address] 01/27/2022 00:00:00 01/27/2022 17:19:13 [id number] MD LADARIUS Malloy [facility] [place] [address] [place] [address] [place] [address] 02/12/2022 00:00:00 02/12/2022 18:24:19 [id number] [facility]al [facility] [address] [address] 04/01/2022 00:00:00 04/01/2022 15:02:54 [id number] Tan Oneal MD [facility] [address] [address] 05/06/2022 00:00:00 05/06/2022 15:06:23 [id number] MD [facility] [place] [address] [facility] [address] [place] [address] 05/12/2022 00:00:00 05/12/2022 17:33:25 [id number] MD LADARIUS Malloy Internal [facility] [place] [address] [facility] [place] [address] 06/25/2022 00:00:00 06/25/2022 15:11:10 [id number] David Kitchen MD [facility] [place] [address] [place] [address] 08/18/2022 00:00:00 08/18/2022 15:50:58 [id number] Yulia watts MD [facility] [place] [address] [place] [address] 10/22/2022 14:01:50 10/22/2022 14:53:19 Screening - NAD 669180443 Z13.9 C-scope: Refused to do this at this time all risks explained again He denies any complaints UTD on flu shotUTD pneumonia #13 today 09/16/17Ge t Tdap, shingles vaccineUTD COVID 19 vaccine RTC in 4 monthswith labs, he would like to get his labs thru the [facility] if worse,he did verbalize his understand ing of the above Coronary arteriosclerosis 70748100 I25.10 CAD s/p CABG s/p PMOn losartanOn magnesiumO n sotalolOn eliquis 5mg bidSees Dr Slaughter Essential hypertension 47189645 I10 On coreg 25mg bidOn losartan 50mg 2 tabs daily Not on chlorthali done 25mg dailyNot on metoprolol 25mg daily On sotalol 120mg bidOn magnesium Hypercalcemia 09451011 E 83.52 OV 02/04/2021 :Did see Dr Strange 11/20/2020 , needs to see Dr Berta Strange 05/07/2021 , started on coreg, f/u in 2 months to see if parathyroi dectomy is done OV 10/14/2021 :Dr Strange 08/20/2021 , to get parathyroi dectomy as per his note, he is to see ENT on 10/31/2021 Dr Mary in [facility] OV 02/12/2022 :On cinacalcet 30mg dailySeen by [...] labs Gastroesop hageal reflux disease without esophagitis 965969002 K21.9 On PPI, take only as needed Persistent insomnia 1919 97146 G47.09 On lorazepamT marques as needed Thrombocyt openic disorder 735744872 D69.[address] Guzman hematology Urinary incontinence 165 3057[address] Oneal 11/04/2022 Pain of le ft knee joint 5373341430 06557 M25.562 Daljit COATS, next 11/17/2022 Serum beatriz min B12 below reference range 725148935 R79.89 Vitamin D deficiency 347 83805 E55.9 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 348129313 E11.9 On jardianceO n kerendiaOn metformin 750mg dailyGet labs [id number] David Kitchen MD [facility] [place] [address] [place] [address] 11/17/2022 14:57:50 11/17/2022 16:15:51 Osteoarthritis of left knee joint 5695744446 93439 M17.12 [id number] Kaveh Godfrey DPM [facility] [place] [address] [place] [address] 02/16/2023 11:58:00 02/16/2023 15:02:09 Diabetes mellitus 40720245 E11.9 Check feet daily for wounds infectionC ontinue diabetic control per PCPContinu e supportive shoe gearFollow -up in 1 year Dystrophia unguium 84718 009 L60.3 Nails 1 through 10 were debrided with sharp mechanical debridemen t without incident. Nails were debrided and greater than 50% length and thickness where needed. [id number] David Kitcehn MD [facility] [place] [address] [place] [address] 02/16/2023 15:18:43 02/16/2023 17:56:41 Osteoarthritis of left knee joint 4156122052 14218 M17.12 [id number] Yulia watts MD [facility] [place] [address] [facility] [place] [address] 03/02/2023 15:04:43 03/02/2023 16:01:44 Screening - NAD [id number] Z13.9 C-scope: Refused to do this at this time all risks explained againHe denies any complaints UTD on flu shotUTD pneumonia #13 today 09/16/17Ge t Tdap, shingles vaccineUTD COVID 19 vaccine RTC in 4 monthswith labs, he would like to get his labs thru the [facility] if worse,he did verbalize his understand ing of the above Coronary arteriosclerosis 32639290 I25.10 CAD s/p CABG s/p PM On coreg 25mg bidOn losartanOn magnesiumO n sotalolOn eliquis 5mg bid Sees Dr Slaughter Essential hypertension 98904977 I10 On coreg 25mg bidOn losartan 50mg 2 tabs daily Not on chlorthali done 25mg dailyNot on metoprolol 25mg daily On sotalol 120mg bidOn magnesium Hypercalcemia 38762486 E 83.52 OV 02/04/2021 :Did see Dr Strange 11/20/2020 , needs to see Dr Berta Strange 05/07/2021 , started on coreg, f/u in 2 months to see if parathyroi dectomy is done OV 10/14/2021 :Dr Strange 08/20/2021 , to get parathyroi dectomy as per his note, he is to see ENT on 10/31/2021 Dr Mary in [facility] OV 02/12/2022 :On cinacalcet 30mg dailySeen by [...] Strange Gastroesop hageal reflux disease without esophagitis 033779013 K21.9 On PPI, take only as needed Persistent insomnia 1919 05575 G47.09 On lorazepamT marques as needed Thrombocyt openic disorder 285988112 D69.[address] Guzman hematology Urinary incontinence [address] Oneal 11/04/2022 Pain of le ft knee joint 2145062383 52194 M25.562 Daljit COATS, next 11/17/2022 Serum beatriz min B12 below reference range 444575785 R79.89 Vitamin D deficiency 347 65036 E55.9 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 610459289 E11.9 On jardianceO n kerendia 20mg dailyOn metformin 750mg dailyGet labs Low back pain 602669153 M54.50 Get an apt with PTGet xrays Adult heal th examination 216171361 Z00.00 Screening for disorder 846296845 Z13.9 [id number] Yulia watts MD [facility] [address] [address] [place] [address] 06/01/2023 15:49:59 06/01/2023 16:27:59 Screening - NAD 435239811 Z13.9 C-scope: Refused to do this at [...] understand ing of the above Coronary arteriosclerosis 66166668 I25.10 CAD s/p CABG s/p PM On coreg 25mg bidOn losartanOn magnesiumO n sotalolOn eliquis 5mg bid Sees Dr Slaughter 12/11/2022 , next apt in one year Essential hypertension 14638640 I10 On coreg 25mg bidOn losartan 50mg 2 tabs daily Not on chlorthali done 25mg dailyNot on metoprolol 25mg daily On sotalol 120mg bidOn magnesium Hypercalcemia 91983959 E 83.52 OV 02/04/2021 :Did see Dr Strange 11/20/2020 , needs to see Dr Berta Strange 05/07/2021 , started on coreg, f/u in 2 months to see if parathyroi dectomy is done OV 10/14/2021 :Dr Strange 08/20/2021 , to get parathyroi dectomy as per his note, he is to see ENT on 10/31/2021 Dr Mary in [facility] OV 02/12/2022 :On cinacalcet 30mg dailySeen by [...] labs Gastroesop hageal reflux disease without esophagitis 229967083 K21.9 On PPI, take only as needed Persistent insomnia 1919 13698 G47.09 On lorazepamT marques as needed Thrombocyt openic disorder 113201276 D69.[address] Guzman hematology Urinary incontinence [address] Oneal 11/04/2022 Pain of le ft knee joint 1992979086 41259 M25.562 Daljit COATS, next 02/16/2023 Serum beatriz min B12 below reference range 555665356 R79.89 Vitamin D deficiency 347 22554 E55.9 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 242414787 E11.9 On jardianceO n kerendia 20mg dailyOn metformin 750mg dailyGet labs Low back pain 303546319 M54.50 Xray LS Spine 03/02/2023 , see caseNow refer to IPC Hyperlipidemia 37561758 E78.5 On atorvastat in 40mg dailyOn vascepaGet labs Administra tion of influenza vaccine 54077747 Z23 [id number] David Kitchen MD [facility] Ortho William Goncalves [address] [place] [address] 06/10/2023 11:39:52 06/10/2023 12:33:20 Osteoarthritis of left knee joint 7582523452 32500 M17.12 [id number] Yulia watts MD [facility] Internal Med [place] [address] [facility] [place] [address] 09/28/2023 15:20:53 09/28/2023 16:00:38 Screening - NAD 083327098 Z13.9 C-scope: Refused to do this at [...] understand ing of the above Coronary arteriosclerosis 74538943 I25.10 CAD s/p CABG s/p PMECHO 09/02/2023 : Dr Slaughter On coreg 25mg bidOn losartan 50mg 2 tabs dailyOn magnesiumO n sotalolOn eliquis 5mg bid Sees Dr Slaughter 12/11/2022 , next apt in one year Essential hypertension 95083984 I10 On coreg 25mg bidOn losartan 50mg 2 tabs daily Not on chlorthali done 25mg dailyNot on metoprolol 25mg daily On sotalol 120mg bidOn magnesium Hypercalcemia 19485802 E 83.52 OV 02/04/2021 :Did see Dr Strange 11/20/2020 , needs to see Dr Berta Strange 05/07/2021 , started on coreg, f/u in 2 months to see if parathyroi dectomy is done OV 10/14/2021 :Dr Strange 08/20/2021 , to get parathyroi dectomy as per his note, he is to see ENT on 10/31/2021 Dr Mary in [facility] OV 02/12/2022 :On cinacalcet 30mg dailySeen by [...] labs Gastroesop hageal reflux disease without esophagitis 280074183 K21.9 On PPI, take only as needed Persistent insomnia 1919 70927 G47.09 On lorazepamT marques as needed Thrombocyt openic disorder 497462253 D69.[address] Guzman hematology Urinary incontinence [address] Oneal 11/04/2022 Pain of le ft knee joint 3189951135 68264 M25.562 Daljit COATS, next 02/16/2023 Serum beatriz min B12 below reference range 979523427 R79.89 Vitamin D deficiency 347 40194 E55.9 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 559500801 E11.9 On jardianceO n kerendia 20mg daily, renewed 09/28/2022 On metformin 750mg dailyGet labs Low back pain 532491700 M54.50 Xray LS Spine 03/02/2023 , see caseNow refer to IPC Hyperlipidemia 86673232 E78.5 On atorvastat in 40mg dailyOn vascepaGet labs [id number] Yulia watts MD [facility] [place] [address] [place] [address] 01/25/2024 14:23:25 01/25/2024 15:14:04 Screening - NAD 135481652 Z13.9 C-scope: Refused to do this at [...] understand ing of the above Coronary arteriosclerosis 94864299 I25.10 CAD s/p CABG s/p PMECHO 09/02/2023 : Dr Slaughter On coreg 25mg bidOn losartan 50mg 2 tabs dailyOn magnesiumO n sotalol 120mg bidOn eliquis 5mg bid Sees Dr Slaughter 12/11/2022 , next apt in one year Essential hypertension 49593773 I10 On coreg 25mg bidOn losartan 50mg 2 tabs daily Not on chlorthali done 25mg dailyNot on metoprolol 25mg daily On sotalol 120mg bidNot taking magnesium Hypercalcemia 89257041 E 83.52 OV 02/04/2021 :Did see Dr Strange 11/20/2020 , needs to see Dr Berta Strange 05/07/2021 , started on coreg, f/u in 2 months to see if parathyroi dectomy is done OV 10/14/2021 :Dr Strange 08/20/2021 , to get parathyroi dectomy as per his note, he is to see ENT on 10/31/2021 Dr Mary in [facility] OV 02/12/2022 :On cinacalcet 30mg dailySeen by [...] labs Gastroesop hageal reflux disease without esophagitis 617086579 K21.9 On PPI, take only as needed Persistent insomnia 1919 98431 G47.09 On lorazepamT marques as needed Thrombocyt openic disorder 681348223 D69.[address] Guzman hematology , referred 01/25/2024 Urinary incontinence [address] Oneal 11/04/2022 Pain of le ft knee joint 7950543032 11625 M25.562 Daljit Hughes PADeclines any new referrals 01/25/2024 Serum beatriz min B12 below reference range 106317635 R79.89 Vitamin D deficiency 347 03041 E55.9 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 699484224 E11.9 On jardianceO n kerendia 20mg daily, renewed 09/28/2022 , 01/25/2024 On metformin 750mg dailyGet labs Low back pain 199031008 M54.50 Xray LS Spine 03/02/2023 , see caseIPC 09/15/2023 , f/u in 3 months Hyperlipidemia 64957387 E78.5 On atorvastat in 40mg daily, increase to 80mg dailyOn vascepa d/c this as he is on eliquisGet labs [id number] Yulia watts MD [facility] [place] [address] [facility] , [facility] [place] [facility] [place] [address] 05/11/2024 16:39:47 05/11/2024 17:26:30 Screening - NAD 328053079 Z13.9 C-scope: Refused to do this at [...] understand ing of the above Coronary arteriosclerosis 72036446 I25.10 CAD s/p CABG s/p PMECHO 09/02/2023 : Dr Slaughter On coreg 25mg bidOn losartan 50mg 2 tabs dailyOn magnesiumO n sotalol 120mg bidOn eliquis 5mg bid Sees Dr Slaughter 12/11/2022 , next apt in one year Essential hypertension 05958575 I10 On coreg 25mg bidOn losartan 50mg 2 tabs daily Not on chlorthali done 25mg dailyNot on metoprolol 25mg daily On sotalol 120mg bidNot taking magnesium Hypercalcemia 54815963 E 83.52 OV 02/04/2021 :Did see Dr Strange 11/20/2020 , needs to see Dr Berta Strange 05/07/2021 , started on coreg, f/u in 2 months to see if parathyroi dectomy is done OV 10/14/2021 :Dr Strange 08/20/2021 , to get parathyroi dectomy as per his note, he is to see ENT on 10/31/2021 Dr Mary in [facility] OV 02/12/2022 :On cinacalcet 30mg dailySeen by [...] Strange Gastroesop hageal reflux disease without esophagitis 628451023 K21.9 On PPI, take only as needed Persistent insomnia 1919 07180 G47.09 On lorazepamT marques as needed Thrombocyt openic disorder 378872295 D69.[address] Guzman hematology , referred 01/25/2024 Urinary incontinence [address] Oneal 11/04/2022 Pain of le ft knee joint 7757785545 25060 M25.562 Daljit Hughes PADeclines any new referrals 01/25/2024 Serum beatriz min B12 below reference range 352468277 R79.89 Vitamin D deficiency 347 59139 E55.9 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 780177899 E11.9 On jardianceO n kerendia 20mg daily, renewed 05/11/2024 On metformin 750mg dailyGet labs Low back pain 666018269 M54.50 Xray LS Spine 03/02/2023 , see caseIPC 09/15/2023 , f/u in 3 months OV 04/11/2024 :Does not want to see IPC, will get a referral Hyperlipidemia 84952767 E78.5 On atorvastat in 40mg daily, increase to 80mg dailyOn vascepa d/c this as he is on eliquisGet labs Unsteady when walking 22 440817 R26.89 Get a walker [id number] Yulia watts MD [facility] [place] [facility] [address] [facility] [address] [place] [address] 07/20/2024 15:11:38 07/20/2024 16:11:48 Adult health examination 617555584 Z00.00 Screening for disorder 983138585 Z13.9 Screening - NAD 37453048 3 Z13.9 C-scope: Refused to do this [...] understand ing of the above Coronary arteriosclerosis 09329189 I25.10 CAD s/p CABG s/p PMECHO 09/02/2023 : Dr Slaughter On coreg 25mg bidOn losartan 50mg 2 tabs dailyOn magnesiumO n sotalol 120mg bidOn eliquis 5mg bid Dr Slaughter 12/11/2022 , next apt in one yearDr Slaughter 11/27/2023 Essential hypertension 40846977 I10 On coreg 25mg bidOn losartan 50mg 2 tabs daily Not on chlorthali done 25mg dailyNot on metoprolol 25mg daily On sotalol 120mg bidNot taking magnesium Hypercalcemia 90645471 E 83.52 OV 02/04/2021 :Did see Dr Strange 11/20/2020 , needs to see Dr Berta Strange 05/07/2021 , started on coreg, f/u in 2 months to see if parathyroi dectomy is done OV 10/14/2021 :Dr Strange 08/20/2021 , to get parathyroi dectomy as per his note, he is to see ENT on 10/31/2021 Dr Mary in [facility] OV 02/12/2022 :On cinacalcet 30mg dailySeen by [...] Strange Gastroesop hageal reflux disease without esophagitis 751635234 K21.9 On PPI, take only as needed Persistent insomnia 1919 00416 G47.09 On lorazepamT marques as needed Urinary incontinence [address] Oneal 11/04/2022 Pain of le ft knee joint 7408011676 69301 M25.562 Daljit Hughes PADeclines any new referrals 01/25/2024 Serum beatriz min B12 below reference range 970077140 R79.89 Vitamin D deficiency 347 97416 E55.9 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 652433892 E11.9 On jardianceO n kerendia 20mg daily, renewed 05/11/2024 On metformin 750mg dailyGet labs Low back pain 246461564 M54.50 Xray LS Spine 03/02/2023 , see caseIPC 09/15/2023 , f/u in 3 months OV 04/11/2024 :Does not want to see IPC, will get a referral OV 07/20/2024 :Get a referral to pain management Hyperlipidemia 40629678 E78.5 On atorvastat in 40mg dailyOn vascepa d/c this as he is on eliquisGet labs Unsteady when walking 22 355666 R26.89 Get a walker will be delivered today 07/20/2024 Anemia 816997770 D64.9 Also has low WBC, needs to see Dr Thomas ENAMORADO! Unintentio nal weight loss 854110646 R63.4 Worry about cover malignancy , labs show anemia, needs to see oncology, referred Dr Guzman Administra tion of influenza vaccine 96567213 Z23 [id number] Yulia watts MD [facility] [place] [address] [facility] [address] [place] [address] 08/17/2024 16:32:45 08/17/2024 17:41:38 Screening - NAD 446658320 Z13.9 C-scope: Refused to do this at [...] understand ing of the above Coronary arteriosclerosis 73466357 I25.10 CAD s/p CABG s/p PMECHO 09/02/2023 : Dr Slaughter On coreg 25mg bidOn losartan 50mg 2 tabs dailyOn magnesiumO n sotalol 120mg bidOn eliquis 5mg bid Dr Slaughter 12/11/2022 , next apt in one yearDr Slaughter 11/27/2023 Essential hypertension 01988117 I10 On coreg 25mg bidOn losartan 50mg 2 tabs daily Not on chlorthali done 25mg dailyNot on metoprolol 25mg daily On sotalol 120mg bidNot taking magnesium Hypercalcemia 91751734 E 83.52 OV 02/04/2021 :Did see Dr Strange 11/20/2020 , needs to see Dr Berta Strange 05/07/2021 , started on coreg, f/u in 2 months to see if parathyroi dectomy is done OV 10/14/2021 :Dr Strange 08/20/2021 , to get parathyroi dectomy as per his note, he is to see ENT on 10/31/2021 Dr Mary in [facility] OV 02/12/2022 :On cinacalcet 30mg dailySeen by [...] Espinosa well, keep apt with Dr Strange Gastrofranciscoop hageal reflux disease without esophagitis 465404647 K21.9 On PPI, take only as needed Persistent insomnia 1919 40029 G47.09 On lorazepamT marques as needed Urinary incontinence [address] Oneal 11/04/2022 Pain of le ft knee joint 5827798964 69654 M25.562 [facility] PADeclines any new referrals 01/25/2024 Serum beatriz min B12 below reference range 838280211 R79.89 Vitamin D deficiency 347 28832 E55.9 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 793382354 E11.9 On jardianceO n kerendia 20mg daily, renewed 05/11/2024 On metformin 750mg dailyGet labs Low back pain 154038905 M54.50 Xray LS Spine 03/02/2023 , see caseIPC 09/15/2023 , f/u in 3 months OV 04/11/2024 :Does not want to see IPC, will get a referral OV 07/20/2024 :Get a referral to pain management Hyperlipidemia 91126660 E78.5 On atorvastat in 40mg dailyOn vascepa d/c this as he is on eliquisGet labs Unsteady when walking 22 269899 R26.89 Get a walker will be delivered today 07/20/2024 Anemia 042460636 D64.9 On iron and vit cDr Ebie 08/05/[address] Guzman on 09/01/2024 at 11.30am Unintentio nal weight loss 284911454 R63.4 Worry about cover malignancy , labs show anemia, needs to see oncology, see Dr Guzman 09/01/2024 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.09 Encouraged more protien in diet Health Concerns Section Related Observation LastModified by Organization Detai ls LastModified Time None Recorded Concern Status LastModified by Organization Details LastModified Time None Recorded Advance Directives Directive Y: Payers Insurance Date Sequence Insurance Name Policy Number Policy Patton Covered Member ID Patton Member ID Guarantor Name 09/17/2024 2 [place] [id number] Jose Manuel Floyd [id number] Jose Manuel Floyd 09/16/2024 1 [place] Jose Manuel Floyd [id number] Jose Manuel Floyd 05/11/2024 2 [place] [id number] Jose Manuel Floyd [id number] Jose Manuel Kinney Everett Notes Date Note Type Note Provider Name and Address Organization Details Recorded Time 09/28/2023 text/html Here to establish carePast PMD Dr BrandthipPast Hx:HLDDMIIGERDInsomni aReviewed social family [...] and would now like to get a assisted living nursing director apt OV 02/04/2021:Here for his routine aptHe [...] doing very well today Yulia Jackson MD [address] [place] [address], [address], [place], [address], [facility] 09/28/2023 18:44:03 01/25/2024 text/html Here to establish carePast PMD Dr Stillast Hx:HLDDMIIGERDInsomni aReviewed social family and surgical historyHere [...] and would now like to get a assisted living nursing director apt OV 02/04/2021:Here for his routine aptHe [...] and this helps Yulia Jackson MD [address] [facility], [address], [place], [address], [place] [facility] [employer] 01/25/2024 15:14:50 05/11/2024 text/html Here to establish carePast PMD Dr BrandthipPast Hx:HLDDMIIGERDInsomni aReviewed social family [...] that he did do the labs with [facility] on 12/16/17OV 06/16/18:Here for his routine aptHe [...] and would now like to get a assisted living nursing director apt OV 02/04/2021:Here for his routine aptHe [...] to pain management Yulia Jackson MD [address] [facility], [facility] [address], [place], [address], [facility] [employer] 05/11/2024 17:50:10 07/20/2024 text/html Here to establish carePast PMD Dr BrandthipPast Hx:HLDDMIIGERDInsomni aReviewed social family [...] and would now like to get a assisted living nursing director apt OV 02/04/2021:Here for his routine aptHe [...] unintentional weight loss Yulia Jackson MD [address] [facility], [place] [address], [place], [address], [facility] [employer] 07/31/2024 15:22:34 08/17/2024 text/html Here to establish carePast PMD Dr BrandthipPast Hx:HLDDMIIGERDInsomni aReviewed social family [...] and would now like to get a assisted living nursing director apt OV 02/04/2021:Here for his routine aptHe [...] weight, did have labs done by the software installation engineer Yulia Jackson MD [address] [facility], [address], [place], [address], [facility] 08/17/2024 17:26:38
--- OUTSIDE RECORDS SUMMARY | 2025-07-04 10:32 | XMS_ITS | Clinical Summary ---
Author Organization [facility] Address [address] [place] [address] Care Team Providers Care Pipe Roller Name Role Phone Gege Jackson MD Primary [...] ORAL) Take by mouth. Activ e Fish Oil-Nora-3 Fatty Acids 360-1,200 mg Capsule Take 1 Capsule by mouth. Active chlorthalidone (HYGROTON) 25 mg tablet Take 25 mg by mouth daily. Active magnesium oxide 400 mg magnesium Tablet magnesium 400 mg once daily Active imcir-9-aul-epa -dpa-fish oil 1,050-1,200 mg Capsule Nora 3 with Fish Oil 1200mg 1 Daily [...] mouth daily in the morning. 2 Active amLODIPine-jose zepril (LOTREL) 5-20 mg capsule Take 1 Capsule by mouth daily. 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 Encounters Date Type Department Care Team Description 06/27/2025 External Device Data STL ABSTRACTION Provider, Abstract 04/11/2025 External Device Data ST[facility] ABSTRACTION Provider, Abstract [...] Sign Reading Time Taken Comments Blood Pressure 151/82 03/23/2025 10:01 AM CDT Pulse 76 03/23/2025 9:57 AM CDT Temperature 37.1 C (98.7 F) 03/23/2025 9:57 AM CDT Respiratory Rate 16 03/23/2025 9:57 AM CDT Oxygen Saturation 94% 03/23/2025 9:57 AM CDT Inhaled Oxygen Concentration - - Weight 76.7 kg (169 lb) 03/23/2025 9:57 AM CDT Height 182.9 cm (6') 08/05/2024 11:41 AM SHOWER ENCLOSURE INSTALLER Body Mass Index 22.92 08/05/2024 11:41 AM SHOWER ENCLOSURE INSTALLER Plan of Treatment Upcoming Encounters Date Type Department Care Team (Late st Contact Info) Description 07/18/2025 2:00 PM SHOWER ENCLOSURE INSTALLER Office Visit [facility] Oncology and Hematology - James [address] [facility] [address] [place] [address] Dylon Guzman MD [address] [facility] [address] [place] [address] Health Maintenance Due Date Last Done Comments DIABETES ANNUAL FOOT EXAM 1963 DIABETES ANNUAL RETINAL EXAM 1962 DIABETES MICROALBUMIN ANNUAL SCREEN 1962 LDL CHOLESTEROL ANNUAL 1962 RSV VACCINE (60+ or ) (1 - 1-dose 75+ series) 2019 INFLUENZA VACCINE (#1) 2025 , 06/01/2023, 05/21/2022, Additional history exists COVID-19 Vaccine (2024-2 6 season) 2025 01/19/2024, 05/22/2022, 05/21/2022, Additional history exists DIABETES HBA1C Q 6 MONTHS 06/23/2025 12/21/2024, DTAP/TDAP/TD VACCINES (3 - T d or Tdap) 08/26/2034 08/26/2024, 02/15/2007 ZOSTER VACCINE Completed 07/12/2018, 10/2017, 03/23/2009 PNEUMOCOCCAL VACCINE 50+ YEARS Completed 0 02/12/2022, 09/16/2017, 05/13/2005, Additional history exists Insurance MEDICARE PART A AND B [facility] SUPP MEDICARE PART A AND B [facility] SUPP Care Teams Pipe Roller Relationship Specialty Start Date End Date Gege Jackson MD PCP - General Internal Medicine 09/17/18
--- OUTSIDE RECORDS SUMMARY | 2025-07-04 10:32 | XMS_ITS | Clinical Summary ---
Author Organization [facility] Address [address] [place] [address] Care Team Providers Care Mail Superintendent Name Role Phone Ayo Jackson MD Primary Care Provide r Garrison Mary MD Unavailable [phone] Allergies Active Allergy Reactions Criticality Noted Date [...] monitoring Assessment & Plan (07/15/2021 3:48 PM SANITARY LANDFILL SUPERVISOR): Parathyroid hormone level, call with results, consider referral to Head and Neck surgery at [facility] History Surgery Date Site/Laterality Comments BYPASS GRAFT PROSTATE SURGERY KNEE SURGERY CARDIAC PACEMAKER PLACEMENT Medical History Medical History Date Comments Cancer (HCC) Cataract HTN (hypertension) Diabetes Parathyroid adenoma Social History Tobacco Use Types [...] on file Legal Sex Male 6:41 PM SANITARY LANDFILL SUPERVISOR Gender Identity Not on file Sexual Orientation Not on file Last Filed Vital Signs Vital Sign Reading Time Taken Comments Blood Pressure 124/76 07/08/2022 7:43 AM SANITARY LANDFILL SUPERVISOR Pulse 79 07/08/2022 7:43 AM SANITARY LANDFILL SUPERVISOR Temperature 36.2 C (97.2 F) 07/08/2022 7:43 AM SANITARY LANDFILL SUPERVISOR Respiratory Rate 16 07/08/2022 7:43 AM SANITARY LANDFILL SUPERVISOR Oxygen Saturation 94% 07/08/2022 7:43 AM SANITARY LANDFILL SUPERVISOR Inhaled Oxygen Concentration - - Weight 82.1 kg (181 lb) 07/07/2022 7:13 AM SANITARY LANDFILL SUPERVISOR Height 185.4 cm (6' 1) 07/07/2022 7:13 AM SANITARY LANDFILL SUPERVISOR Body Mass Index 23.88 07/07/2022 7:13 AM SANITARY LANDFILL SUPERVISOR Plan of Treatment Health Maintenance Due Date Last Done Comments Hepatitis B Screening 1962 Well Visit 65+ 2009 Depression Screening 05/12/2023 05/12/2022, 11/09/19 22 Fall Risk Assessment 07/08/2023 07/08/2022 Covid-19 Vaccine (2024-09 6 season) 2025 05/22/2022, 07/27/2021, 07/27/2021, Additional history exists Influenza Vaccine (#1) 2025 , 05/10/2022, 06/03/2021, Additional history exists DTaP/Tdap/Td Vaccine (3 - Td or Tdap) 08/26/2034 08/26/2024, 02/15/2007 Zoster Vaccine Completed 07/12/2018, 10/2017, 03/23/2009 Pneumococcal vaccine 65+ Completed 022, 09/16/2017, 05/13/2005 Medical Devices Implanted Type Area Tip Scourer Device Identifier Shelf Expiration Date Model / Serial / Lot [employer] Sls-Clip Ligate Triangular Wire Leslee Groove Small [employer] Clip Latex Free [id number] - [id number] Implanted:Qty: 3 on 07/07/2022 by Gavin Sommer MD at [facility] [employer] [id number] / / Insurance MEDICARE [place] [id number] [facility] MEDICARE [facility] MEDICARE [facility] Advance Directives For more information, please contact: [phone] * Full Code (Latest Code Status on File) Date Activated Date Inactivated Comments 07/07/2022 12:53 PM 07/08/2022 3:25 PM Care Teams Mail Superintendent Relationship Specialty Start Date End Date Ayo Jackson MD [address] [facility] [address] [place] [address] PCP - General Internal Medicine 05/08/21 Garrison Mary MD [address] [facility] [address] [place] [address] Consulting Physician Otolaryngology 11/05/21
== END 2025-07-04 09:38 | disposition home or self-care (01) ==
PROVIDERS: PCP Internal Medicine; Visit Provider Internal Medicine Hematology & Oncology
DX: C18.4 Malignant neoplasm of transverse colon (principal); I70.8 Atherosclerosis of other arteries; J90 Pleural effusion, not elsewhere classified
CPT/HCPCS: 74177; Q9967